=== PATIENT | female | born 1960 | race Caucasian/White ===

== ENCOUNTER 2020-10-04 13:41 | Outpatient (CLI) | payer BC, SELFPAY ==
--- NOTE | ~2020-10-04 | US_ITS ---
EXAMINATION: US renal BI DATE: 10/04/2020 14:14 INDICATION: Diabetic nephropathy TECHNIQUE: Multiple grayscale and Doppler ultrasound images of the kidneys were obtained. COMPARISON: None. FINDINGS: The right kidney measures 8.3 x 4.7 x 4.2 cm. The left kidney measures 11.7 x 4.5 x 5.1 cm. The kidneys demonstrate normal parenchymal echogenicity. There is no hydronephrosis. The bladder is normal. IMPRESSION: 1. Mild atrophy of the kidneys. Reviewed, dictated and finalized at location A. ROL OFFICER
== END 2020-10-04 13:42 | disposition home or self-care (01) ==
LOC: ANHIMG 13:49
PROVIDERS: PCP Emergency Medicine; Visit Provider Emergency Medicine
DX: E11.21 Type 2 diabetes mellitus with diabetic nephropathy (principal)
CPT/HCPCS: 76775

== ENCOUNTER → 2021-05-01 15:09 | Outpatient (CLI) | payer BC, SELFPAY ==
--- NOTE | ~2021-05-01 | XR_ITS ---
XR chest 2V 05/01/2021 15:45 Indication: Shortness of breath Procedure: 2 view chest Comparison: No prior studies for comparison. Findings: Heart size normal. There is left basilar atelectasis/scarring. No focal pneumonia, edema, p leural effusion or pneumothorax. No acute osseous abnormality. Impression: 1: Linear left basilar atelectasis/scarring. Reviewed, dictated and finalized at location A. Impression: 1: Linear left basilar atelectasis/scarring.
== END ==
PROVIDERS: PCP Emergency Medicine; Visit Provider Emergency Medicine
DX: R06.02 Shortness of breath (principal); R91.8 Other nonspecific abnormal finding of lung field
CPT/HCPCS: 71046

== ENCOUNTER 2021-12-05 19:55 | Emergency (ER) | payer BC, SELFPAY ==
--- NOTE | ~2021-12-05 | CT_ITS ---
EXAMINATION: CT brain wo con INDICATION: Headache COMPARISON: None TECHNIQUE: Standard unenhanced head CT. The dose-length product (DLP) was 605.33 mGy-cm. The mA was a djusted according to patient size. Iterative reconstruction technique was employed. FINDINGS: There is no intracranial hemorrhage, acute infarction, or abnormal mass lesion. The ventric les are normal. There is no abnormal mass effect or midline shift. The ybarra-white matter differentiat ion is normal. The basal cisterns are patent. Intracranial calcified cerebral atherosclerosis is note d. Surgical changes are noted in the right globe. The paranasal sinuses, mastoids and calvarium are n ormal. IMPRESSION: 1. No acute intracranial abnormality. Reviewed, dictated and finalized at location A.
[2021-12-05 19:59] VITALS: BP 191/98; PULSE 83; RESP 18; TEMP 37; O2SAT 100
[2021-12-05 20:08] VITALS: PULSE 80
--- NOTE | 2021-12-05 20:31 | ECG_ITS ---
Measurements Intervals [place] Rate: 78 P: 48 KS: 180 QRS: -17 QRSD: 90 T: 13 QT: 394 QTc: 451 Interpretive Statements SINUS RHYTHM LOW QRS VOLTAGE IN PRECORDIAL LEADS [QRS DEFLECTION < 1.0 mV IN CHEST LEADS] ABNORMAL ECG COMPARED TO ECG 03/08/2019 12:38:15 NO SIGNIFICANT CHANGES Electronically Signed On 12-06-2021 16:44:26 CDT by Nikita Spring M.D.
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
[2021-12-05 20:51] LABS: Basophils Absolute Auto 0.1 K/mm3 (0.0-0.1); Basophils Percent Auto 0.7 % (0.2-1.2); Eosinophils Absolute Auto 0.6 K/mm3 (0-0.3); Eosinophils Percent Auto 4.5 % (0-4.4); Hematocrit 37.4 % (37.0-47.0); Hemoglobin 12.4 g/dL (12.0-15.0); Immature Granulocyte Absolute 0.04 K/mm3 (0.00-0.031); Immature Granulocyte Percent A 0.3 % (0-0.5); Lymphocytes Percent Auto 13.9 % (18.3-44.2); Mean Corpuscular HGB Conc 33.2 g/dl (32-36); Mean Corpuscular Hemoglobin 29.2 pg (26-34); Mean Corpuscular Volume 88.2 fl (80-100); Mean Platelet Volume 10.6 fl (7.4-10.4); Monocytes Absolute Auto 0.6 K/mm3 (0.1-0.6); Monocytes Percent Auto 4.5 % (2.6-8.5); Neutrophils Absolute Auto 9.3 K/mm3 (1.3-6.7); Neutrophils Percent Auto 76.1 % (45.5-73.1); Platelet Count Result 220 k/mm3 (150-375); Red Blood Count 4.24 M/mm3 (4.2-5.4); Red Cell Distribution Width 13.2 % (11.5-14.5); White Blood Count 12.2 K/mm3 (4.5-10.0)
[2021-12-05 20:55] VITALS: BP 173/86; PULSE 77; RESP 18; O2SAT 100
[2021-12-05 21:04] LABS: Alanine Aminotransferase 19 U/L (4-35); Albumin Level 3.9 g/dL (3.5-5.1); Alkaline Phosphatase 93 U/L (38-126); Anion Gap 6 mmol/L (8-16); Aspartate Amino Transferase 35 U/L (14-36); Bilirubin,Total 0.5 mg/dL (0.2-1.3); Blood Urea Nitrogen 34 mg/dL (7-17); Carbon Dioxide 19 mmol/L (22-30); Chloride 112 mmol/L (98-107); Estimated CRCL calculation 29 ml/min; Estimated Glomerular Filt Rate 22; Glucose 166 mg/dL (65-110); Sodium 137 mmol/L (137-145)
[2021-12-05] MEDS: cloNIDine HCL 0.1 MG TABLET PO (21:09)
[2021-12-05 21:57] VITALS: BP 150/89; PULSE 85; RESP 20; O2SAT 100
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
--- NOTE | 2021-12-05 22:36 | PC.NURSE ---
Pt denies SI or HI thoughts now or prior to coming to ED.
[2021-12-05 22:58] LABS: Appearance Urine Clear (Clear); Bilirubin Urine Negative (Negative); Blood Urine Trace-lysed (Negative); Color Urine Yellow (Yellow); Glucose Urine UA 3+ mg/dL (Negative); Ketones Urine Negative (Negative); Leukocyte Esterase Ur Negative LEU/UL (Negative); Nitrate Urine Negative (Negative); Protein Urine 3+ mg/dL (Negative); Urobilinogen Urine 0.2 mg/dL (<2.0); pH Urine 8.5 (5.0-9.0)
[2021-12-05 23:02] LABS: Bacteria Urine Trace /hpf; Mucus Urine Rare /lpf; RBC Urine 0-2 /hpf (0-2); Squamous Epithelial Cell Urine Moderate /hpf (Few)
[2021-12-05 23:13] LABS: Add Urine Microscopic? YES
--- NOTE | 2021-12-05 23:13 | PC.NURSE ---
Crisis is at bedside currently.
[2021-12-06 00:22] LABS: SARS-CoV-2 RNA PCR Negative
[2021-12-06 00:31] VITALS: BP 152/96; PULSE 85; RESP 18; O2SAT 100
[2021-12-06 00:34] LABS: Ethanol < 10 mg/dL (<10)
[2021-12-06 00:46] LABS: Amphetamine Screen Urine Negative (Negative); Barbiturate Screen Urine Negative (Negative); Benzodiazepines Screen Urine Negative (Negative); Cannabinoid Screen Urine Negative (Negative); Cocaine Screen Urine Negative (Negative); Methadone Screen Urine Negative (Negative); Opiate Screen Urine Negative (Negative); Phencyclidine Screen Urine Negative (Negative)
--- NOTE | 2021-12-06 00:46 | PC.NURSE ---
RN spoke with [place] regarding pt and pt spoke with [place]. Pt informed she is being kept Involuntary.
--- NOTE | 2021-12-06 02:22 | PC.NURSE ---
RN spoke to [facility] they are requesting CT of head before they are willing to accept. MD ordered Ct scan.
--- NOTE | 2021-12-06 02:22 | PC.NURSE ---
RN re faxed pt's chart to [facility] for review.
--- NOTE | 2021-12-06 03:26 | PC.NURSE ---
Rn spoke with [facility] they are unable to accept the patient. Pt does not meet their admission criteria.
[2021-12-06 04:13] VITALS: BP 163/84; PULSE 77; RESP 16; O2SAT 100
--- NOTE | 2021-12-06 04:14 | PC.NURSE ---
RN spoke to [facility] they are able to accept pt to Dr. Peres they will call to get report from RN.
--- NOTE | 2021-12-06 05:10 | PC.NURSE ---
RN filled out Involuntary Petition as directed by [facility].
[2021-12-06 06:08] VITALS: BP 164/101; PULSE 78; RESP 18; O2SAT 100
== END 2021-12-06 06:10 ==
PROVIDERS: Emergency Provider Emergency Medicine; PCP Emergency Medicine
DX: F41.9 Anxiety disorder, unspecified (principal); F91.8 Other conduct disorders; E11.22 Type 2 diabetes mellitus with diabetic chronic kidney disease; I12.9 Hypertensive chronic kidney disease with stage 1 through stage 4 chronic kidney disease, or unspecified chronic kidney disease; N18.9 Chronic kidney disease, unspecified; E11.319 Type 2 diabetes mellitus with unspecified diabetic retinopathy without macular edema; Z20.822 Contact with and (suspected) exposure to COVID-19; R94.31 Abnormal electrocardiogram [ECG] [EKG]
CPT/HCPCS: 36415; 70450; 80053; 80307; 81001; 85025; 93005; 99285; A9270; C9803; U0003; U0005

== ENCOUNTER 2024-04-04 09:37 | Emergency (ER) | payer BC, SELFPAY ==
[2024-04-04] VITALS (7 sets, daily range): BP systolic 172–186; BP diastolic 87–96; PULSE 76–83; RESP 18–24; TEMP 36.7; O2SAT 97–100
--- NOTE | ~2024-04-04 | XR_ITS ---
EXAMINATION: XR chest 2V DATE: 04/04/2024 10:13 INDICATION: Weakness. Dyspnea. TECHNIQUE: Frontal and lateral views of the chest were obtained. COMPARISON: Chest 2 views 05/01/21 FINDINGS: There are airspace opacities in the lower lung zones. No pleural effusion or pneumothorax. The heart size is normal. Surgical clips in the right upper quadrant are likely from cholecystectomy. IMPRESSION: 1. Airspace opacities in the lower lung zones, consistent with atelectasis versus pneumonia. Reviewed, dictated and finalized at location E. IMPRESSION: 1. Airspace opacities in the lower lung zones, consistent with atelectasis vers us pneumonia.
--- NOTE | 2024-04-04 09:44 | ECG_ITS ---
Test Date: 2024-04-04 10:45:20 Measurements Intervals [place] Rate: 75 P: 30 DC: 181 QRS: -48 QRSD: 130 T: -8 QT: 418 QTc: 467 Interpretive Statements SINUS RHYTHM LEFT AXIS DEVIATION [QRS AXIS < -30] RIGHT BUNDLE BRANCH BLOCK [120+ ms QRS DURATION, UPRIGHT V1, 40+ ms S IN I/aVL/V4/V5/V6] No previous ECG available for comparison Electronically Signed On 04-04-2024 13:49:56 CDT by Jonathon Hobbs M.D.
[2024-04-04 10:17] LABS: Basophils Percent Auto 0.4 % (0.2-1.2); Eosinophils Absolute Auto 0.3 K/mm3 (0-0.3); Hematocrit 32.3 % (37.0-47.0); Hemoglobin 10.5 g/dL (12.0-15.0); Immature Granulocyte Absolute 0.05 K/mm3 (0.00-0.031); Immature Granulocyte Percent A 0.6 % (0-0.5); Lymphocytes Absolute Auto 1.57 K/mm3 (0.9-3.2); Lymphocytes Percent Auto 18.9 % (18.3-44.2); Mean Corpuscular HGB Conc 32.5 g/dl (32-36); Mean Corpuscular Hemoglobin 28.8 pg (26-34); Mean Corpuscular Volume 88.7 fl (80-100); Mean Platelet Volume 10.2 fl (7.4-10.4); Monocytes Absolute Auto 0.6 K/mm3 (0.1-0.6); Monocytes Percent Auto 7.1 % (2.6-8.5); Neutrophils Absolute Auto 5.8 K/mm3 (1.3-6.7); Platelet Count Result 188 k/mm3 (150-375); Red Blood Count 3.64 M/mm3 (4.2-5.4); Red Cell Distribution Width 13.3 % (11.5-14.5); White Blood Count 8.3 K/mm3 (4.5-10.0)
[2024-04-04 10:27] LABS: Alanine Aminotransferase 14 U/L (6-35); Albumin Level 3.2 g/dL (3.5-5.1); Alkaline Phosphatase 79 U/L (38-126); Anion Gap 10 mmol/L (4-12); Aspartate Amino Transferase 31 U/L (14-36); Bilirubin,Total 0.7 mg/dL (0.2-1.3); Blood Urea Nitrogen 36 mg/dL (7-17); Calcium 8.2 mg/dL (8.4-10.2); Carbon Dioxide 20 mmol/L (22-30); Chloride 104 mmol/L (98-107); Estimated CRCL calculation 23 ml/min; Estimated Glomerular Filt Rate 19; Glucose 92 mg/dL (65-110); Potassium 4.1 mmol/L (3.4-5.0); Sodium 134 mmol/L (137-145)
--- NOTE | 2024-04-04 11:33 | ED.GENADULT ---
HPI - General Adult General Chief complaint: Weakness Stated complaint: decreased energy, generalized malaise Time Seen by Provider: 04/04/24 10:40 History of Present Illness HPI narrative: This is a 63-year-old female with a past medical history significant for chronic kidney disease from diabetic nephropathy. She presents today to the ER for evaluation of persistent generalized weakness, decreased energy, productive cough and some nauseousness. Patient states she has been feeling this way for 2-3 weeks without any improvement her symptoms. She has had decreased appetite but able to tolerate p.o. intake without issue. Denies any chest pain but states she has some occasional difficulty in breathing she describes as a deep inhalation rib pain on the left side. Denies any trauma recent illnesses. No recent antibiotics. No recent hospitalizations. No one around her has been sick according to herself. Related Data Allergies Allergy/AdvReac Type Severity Reaction Status Date / Time Penicillins Allergy Unknown Unknown Verified 04/04/24 10:01 coconut Allergy Hives Verified 04/04/24 10:01 [facility] Social History Social History Substance use type: does not use Course Vital Signs Vital signs: Vital Signs Pulse Rate 76 04/04/24 09:57 Pulse Rate 79 04/04/24 11:45 Respiratory Rate 22 H 04/04/24 11:45 Blood Pressure 172/91 H 04/04/24 11:45 Pulse Oximetry 100 04/04/24 11:30 Medical Decision Making [facility] Narrative Medical decision making narrative: This is a 63-year-old female with history of diabetic nephropathy and chronic kidney disease who presents to the ED for evaluation of subjective dyspnea, generalized weakness, productive cough for last 2-3 weeks. She describes generalized malaise but denies any recent sick contacts. No fever chills at home. No headache, vision changes, chest pain, neuropathy. She was otherwise in normal state of health several weeks prior. Differential diagnosis at this time includes pneumonia, COVID, flu, RSV, less likely ACS. A metabolic panel was ordered as well as a cardiac workup. Two-view chest x-ray and COVID swabs were obtained. To given 1 L likely Ringer bolus. CBC showed no leukocytosis, anemia is at 10.5 and somewhat similar to her previous low levels. No concerns for acute blood loss. Electrolyte panel shows no significant electrolyte derangements however some mild BUTCH on CKD. She has a known CKD from diabetic nephropathy and her creatinine is just slightly above her normal baseline. Patient has no urinary complaints and makes urine presently. Negative troponin. Normal hepatic function panel. Urinalysis shows signs of potential infection with leukocyte esterase, 50-100 white blood cells and 3+ bacteria. X-ray was independently reviewed by myself and interpreted by radiology with some airspace disease in the left lower zone consistent with pneumonia. Given patient's constellation of symptoms and pneumonia and urinary tract infection this is likely the culprit behind her symptomatology today. RSV swabs were negative. We will treat her with a dose of IV Rocephin and doxycycline. We did discuss potential for admission to the hospital given her diagnosis today however patient is also stable for outpatient treatment and follow-up given her vital stability and improvement in symptomatology on my re-examination. Patient would prefer to be discharged and after discussions with the family this was an acceptable plan of care. We will prescribe oral antibiotics and she will be given follow-up with her regular primary care provider next several days. Vital Signs Vital Signs: Vital Signs Pulse Rate 76 04/04/24 09:57 Pulse Rate 79 04/04/24 11:45 Respiratory Rate 22 H 04/04/24 11:45 Blood Pressure 172/91 H 04/04/24 11:45 Pulse Oximetry 100 04/04/24 11:30 Lab Data 04/04/24 10:08
[2024-04-04] MEDS: LACTATED RINGERS 1,000 ML 999 ML IV CONT (11:52)
[2024-04-04 12:04] LABS: Troponin I < 0.012 ng/mL (0.000-0.034)
[2024-04-04 12:06] LABS: Add Urine Microscopic? YES; Appearance Urine Clear (Clear); Bacteria Urine 3+ /hpf; Bilirubin Urine Negative (Negative); Blood Urine Negative (Negative); Color Urine Yellow (Yellow); Glucose Urine UA 2+ mg/dL (Negative); Ketones Urine Negative (Negative); Leukocyte Esterase Ur Trace LEU/UL (Negative); Nitrate Urine Negative (Negative); Non Pathogenic Casts 0-2; Protein Urine 3+ mg/dL (Negative); RBC Urine 0-2 /hpf (0-2); Specific Grav Ur 1.013 (1.001-1.035); Squamous Epithelial Cell Urine None Seen /hpf (Few); WBC Urine 51-100 /hpf (0-3); pH Urine 6.5 (5.0-9.0)
[2024-04-04 12:37] LABS: Influenza A QL RT-PCR Negative (Negative); Influenza B QL RT-PCR Negative (Negative); RSV RNA, RT-PCR Negative (Negative); SARS-CoV-2 RNA PCR Negative (Negative)
[2024-04-04] MEDS: DOXYCYCLINE 100 MG/NS 100 ML 100 MG/100 ML BAG IVPB (14:50)
== END 2024-04-04 16:30 | disposition home or self-care (01) ==
PROVIDERS: Student in an Organized Health Care Education/Training Program; Emergency Provider Student in an Organized Health Care Education/Training Program; PCP Emergency Medicine
DX: J18.9 Pneumonia, unspecified organism (principal); N39.0 Urinary tract infection, site not specified; N17.9 Acute kidney failure, unspecified; E11.22 Type 2 diabetes mellitus with diabetic chronic kidney disease; N18.9 Chronic kidney disease, unspecified; Z20.822 Contact with and (suspected) exposure to COVID-19; I45.10 Unspecified right bundle-branch block
CPT/HCPCS: 36415; 71046; 80053; 81001; 84484; 85025; 87086; 87637; 93005; 96361; 96365; 96367; 99284; J0696; J7120

== ENCOUNTER → 2024-05-05 10:47 | Outpatient (CLI) | payer BC, SELFPAY ==
--- NOTE | ~2024-05-05 | XR_ITS ---
Clinical Indication: Pneumonia PA and lateral views of the chest: Comparison: 04/04/2024 Findings: There is now 2 cm nodular opacity at the right lung base. There is hazy airspace consolidat ion the lateral right midlung. There is mild haziness at the medial right lung base. Probable discoid atelectasis or scarring left lung base. Cardiomediastinal silhouette is within normal limits. Bones and soft tissues are unremarkable. Impression: New 2 cm nodular opacity right lung base, with worsening hazy airspace disease at the lateral right l emery. Chest CT should be considered to better evaluate. Pneumonia remains a diagnostic consideration. Reviewed, dictated and finalized at location . Impression: New 2 cm nodular opacity right lung base, with worsening hazy airspace disease at the lateral right lung. Chest CT should be considered to better evaluate. Pn eumonia remains a diagnostic consideration.
== END ==
PROVIDERS: PCP Emergency Medicine; Visit Provider Emergency Medicine
DX: J18.9 Pneumonia, unspecified organism (principal)
CPT/HCPCS: 71046

== ENCOUNTER 2024-08-22 08:02 | Inpatient (IN) | payer BC, SELFPAY ==
[2024-08-22] VITALS (16 sets, daily range): BP systolic 111–167; BP diastolic 59–86; PULSE 88–96; RESP 18–34; TEMP 36.3–37.7; O2SAT 95–99
--- NOTE | ~2024-08-22 | XR_ITS ---
Portable chest x-ray Comparison: 08/22/2024 Clinical History: Shortness of breath Findings: There is mild diffuse haziness and interstitial prominence in the lungs. Mild patchy bibas ilar airspace disease. Cardiomediastinal silhouette is stable. Bones and soft tissues are unremarkab le. Impression: Probable mild diffuse pulmonary edema pattern with minimal bibasilar atelectatic change. Stable cardiomegaly. Reviewed, dictated and finalized at location . ARE ADMINISTRATOR Impression: Probable mild diffuse pulmonary edema pattern with minimal bibasilar atelectati c change. Stable cardiomegaly.
--- NOTE | ~2024-08-22 | CT_ITS ---
EXAMINATION: CT chest abdomen pelvis wo con DATE: 08/22/2024 11:27 INDICATION: Pneumonia. 3 days of nausea and vomiting TECHNIQUE: Computed tomography (CT) of the chest, abdomen, and pelvis was performed with 100 mL Omnip aque-350 intravenous contrast. Automated exposure control and iterative reconstruction technique were employed. The dose-length product was 1250.75 mGy-cm. COMPARISON: None FINDINGS: CHEST CT: Small bilateral pleural effusions. Linear and bandlike consolidation in the bilateral lower lobes and in the lingula consistent with atelectasis/scarring, likely chronic as similar opacities can be seen in the lower lungs on chest radiographs dating back to 04/04/2024. Heart size is normal. Moderate-siz ed pericardial effusion. Thoracic aorta is normal in caliber. No pathologically enlarged thoracic lym phadenopathy. Multinodular goiter with nodules measuring up to 1 cm. ABDOMEN/PELVIS CT: Cholecystectomy clips the gallbladder fossa. Liver, spleen, pancreas and bilateral adrenal glands are normal. Normal variant horseshoe kidney/cross fused ectopia. Fluid throughout multiple nondilated lo ops of small bowel suggestive of gastroenteritis. Several diverticula along the sigmoid colon without adjacent inflammatory stranding to suggest diverticulitis. The appendix is not visualized. No perice fly inflammatory change to suggest acute appendicitis. Bladder, uterus and bilateral adnexa are unrem arkable. Mild lumbar levocurvature with moderate to severe spondylosis. IMPRESSION: 1. Small bilateral pleural effusions with likely chronic atelectasis/scarring in the bilateral lower lobes. 2. Moderate-sized pericardial effusion. 3. Fluid throughout nondilated small bowel. Correlate clinically for gastroenteritis. 4. Sigmoid diverticulosis. Reviewed, dictated and finalized at location A. STANT GROCERY IMPRESSION: 1. Small bilateral pleural effusions with likely chronic atelectasis/scarring i n the bilateral lower lobes. 2. Moderate-sized pericardial effusion. 3. Fluid throughout nondilated small bowel. Correlate clinically for gastroente ritis. 4. Sigmoid diverticulosis.
--- NOTE | ~2024-08-22 | US_ITS ---
EXAMINATION: US thoracentesis DATE: 08/23/2024 17:21 INDICATION: pleural effusion TECHNIQUE: The procedure and its risks, benefits, and alternatives were discussed with the patient an d her . Potential risks discussed included bleeding, infection, and pneumothorax. The patient understood the risks and agreed to proceed. The skin was prepped and draped in sterile fashion. 1% li docaine was used for local anesthesia. Under ultrasound guidance, a 5 Fr catheter with trochar was ad vanced into the left pleural effusion. Fluid was aspirated. The catheter was removed, and a dressing was applied. There were no immediate complications. FINDINGS: Ultrasound images demonstrate a left pleural effusion and the catheter within the fluid. The pleural effusion is loculated. IMPRESSION: 1. Successful ultrasound-guided thoracentesis yielding 1 mL of yellow fluid. Note that the pleural e ffusion is loculated, and more fluid could not be obtained despite positioning the needle at multiple locations within the pleural effusion. Reviewed, dictated and finalized at location A. ITUDINAL FLOAT OPERATOR IMPRESSION: 1. Successful ultrasound-guided thoracentesis yielding 1 mL of yellow fluid. N ote that the pleural effusion is loculated, and more fluid could not be obtaine d despite positioning the needle at multiple locations within the pleural effus ion.
--- NOTE | ~2024-08-22 | XR_ITS ---
Portable chest x-ray Comparison: 08/22/2024 Clinical History: Hypoxia Findings: There is left lower lobe airspace consolidation with probable minimal left pleural effusio n. There is probable discoid right basilar atelectasis or scarring. Cardiomediastinal silhouette is stable. Bones and soft tissues are unremarkable. Impression: Left lower lobe pulmonary edema/atelectasis versus pneumonia. Correlate clinically. Minimal left pleural effusion. Discoid right basilar atelectasis or scarring. Reviewed, dictated and finalized at [facility]. [employer] Impression: Left lower lobe pulmonary edema/atelectasis versus pneumonia. Correlate clinica lly. Minimal left pleural effusion. Discoid right basilar atelectasis or scarring.
--- NOTE | ~2024-08-22 | XR_ITS ---
EXAMINATION: XR chest 1V portable DATE: 08/22/2024 08:49 INDICATION: Dyspnea on exertion TECHNIQUE: frontal view of the chest was obtained. COMPARISON: Chest radiograph dated 05/05/24 FINDINGS: Opacities in the bilateral lower lung zones including some linear atelectasis/scarring. No pleural ef fusion or pneumothorax. The cardiomediastinal silhouette is normal. Cholecystectomy clips in right up per quadrant. IMPRESSION: 1. Opacities in the bilateral lower lung zones which includes atelectasis/scarring with possible supe rimposed mild pulmonary edema or pneumonia. Reviewed, dictated and finalized at [facility] IMPRESSION: 1. Opacities in the bilateral lower lung zones which includes atelectasis/scarr ing with possible superimposed mild pulmonary edema or pneumonia.
[2024-08-22 08:09] LABS: Glucose Point of Care 114 mg/dl (65-105)
--- NOTE | 2024-08-22 08:11 | ECG_ITS ---
Test Date: 2024-08-22 08:27:18 Measurements Intervals [place] Rate: 93 P: 24 AR: 170 QRS: -38 QRSD: 121 T: 4 QT: 368 QTc: 459 Interpretive Statements SINUS RHYTHM MARKED LEFT AXIS DEVIATION [QRS AXIS < -30] RIGHT BUNDLE BRANCH BLOCK [120+ ms QRS DURATION, UPRIGHT V1, 40+ ms S IN I/aVL/V4/V5/V6] ABNORMAL ECG Compared to ECG 04/04/2024 10:45:20 No significant changes Electronically Signed On 08-22-2024 09:05:25 [employer] by Nikita Spring M.D.
[2024-08-22 08:27] LABS: Basophils Percent Auto 0.1 % (0.2-1.2); Eosinophils Percent Auto 0.2 % (0-4.4); Hematocrit 33.3 % (37.0-47.0); Hemoglobin 10.8 g/dL (12.0-15.0); Immature Granulocyte Absolute 0.11 K/mm3 (0.00-0.031); Immature Granulocyte Percent A 0.8 % (0-0.5); Lymphocytes Absolute Auto 1.46 K/mm3 (0.9-3.2); Mean Corpuscular HGB Conc 32.4 g/dl (32-36); Mean Corpuscular Hemoglobin 27.3 pg (26-34); Mean Corpuscular Volume 84.1 fl (80-100); Mean Platelet Volume 10.3 fl (7.4-10.4); Monocytes Absolute Auto 1.2 K/mm3 (0.1-0.6); Neutrophils Absolute Auto 11.8 K/mm3 (1.3-6.7); Neutrophils Percent Auto 80.9 % (45.5-73.1); Platelet Count Result 258 k/mm3 (150-375); Red Blood Count 3.96 M/mm3 (4.2-5.4); Red Cell Distribution Width 14.2 % (11.5-14.5); White Blood Count 14.6 K/mm3 (4.5-10.0)
[2024-08-22] MEDS: ONDANSETRON INJ 4 MG/2 ML VIAL (08:36)
[2024-08-22 08:39] LABS: Alanine Aminotransferase 13 U/L (6-35); Albumin Level 3.1 g/dL (3.5-5.1); Alkaline Phosphatase 105 U/L (38-126); Anion Gap 6 mmol/L (4-12); Aspartate Amino Transferase 30 U/L (14-36); Bilirubin,Total 0.7 mg/dL (0.2-1.3); Blood Urea Nitrogen 39 mg/dL (7-17); Calcium 8.3 mg/dL (8.4-10.2); Carbon Dioxide 19 mmol/L (22-30); Chloride 105 mmol/L (98-107); Estimated Glomerular Filt Rate 15; Glucose 120 mg/dL (65-110); Lipase 86 U/L (23-300); Potassium 4.6 mmol/L (3.4-5.0); Sodium 130 mmol/L (137-145)
[2024-08-22] MEDS: SODIUM CHLORIDE 0.9% IV 3,000 ML 999 ML IV CONT (08:47)
[2024-08-22 08:50] LABS: INR 1.1; Prothrombin Time 14.6 Seconds (11.1-14.7)
[2024-08-22 08:51] LABS: Partial Thromboplastin Time 27.7 Seconds (22.3-36.8); Troponin I < 0.012 ng/mL (0.000-0.034)
[2024-08-22 08:54] LABS: Fractional Inspired Oxygen 21 %; HCO3 VBG 17.6 mEq/l (24.0-30.0); PCO2 VBG 31.4 mmHg (42.0-48.0); PO2 VBG 35.8 mmHg (35.0-45.0); pH VBG 7.367 (7.300-7.400)
[2024-08-22 08:58] LABS: Device ROOM AIR
[2024-08-22 09:20] LABS: Lactic Acid Reflex 1.5 mmol/L (0.7-2.0)
[2024-08-22 09:28] LABS: Magnesium 2.2 mg/dL (1.6-2.3); Phosphorus 4.6 mg/dL (2.5-4.5)
[2024-08-22 10:37] LABS: Influenza A QL RT-PCR Negative (Negative); Influenza B QL RT-PCR Negative (Negative); RSV RNA, RT-PCR Negative (Negative); SARS-CoV-2 RNA PCR Negative (Negative)
--- NOTE | 2024-08-22 11:13 | ECG_ITS ---
Test Date: 2024-08-22 11:39:33 Measurements Intervals [place] Rate: 89 P: 33 IA: 164 QRS: -45 QRSD: 125 T: 7 QT: 390 QTc: 477 Interpretive Statements SINUS RHYTHM RIGHT BUNDLE BRANCH BLOCK [120+ ms QRS DURATION, UPRIGHT V1, 40+ ms S IN I/aVL/V4/V5/V6] LEFT ANTERIOR FASCICULAR BLOCK [QRS AXIS <= -45, QR IN I, RS IN II] ABNORMAL ECG Electronically Signed On 08-22-2024 13:49:47 PUNCH HAND by Nikita Spring M.D.
[2024-08-22] MEDS: PROCHLORPERAZINE EDISYLATE 10 MG/2 ML VIAL IM (11:50)
[2024-08-22 11:55] LABS: Add Urine Microscopic? YES; Appearance Urine Clear (Clear); Bacteria Urine None Seen /hpf; Bilirubin Urine Negative (Negative); Blood Urine 1+ (Negative); Color Urine Yellow (Yellow); Glucose Urine UA 2+ mg/dL (Negative); Ketones Urine Negative (Negative); Leukocyte Esterase Ur Negative LEU/UL (Negative); Nitrate Urine Negative (Negative); Protein Urine 3+ mg/dL (Negative); RBC Urine 21-50 /hpf (0-2); Specific Grav Ur 1.014 (1.001-1.035); Squamous Epithelial Cell Urine None Seen /hpf (Few); WBC Urine 0-5 /hpf (0-3); pH Urine 5.5 (5.0-9.0)
[2024-08-22 12:35] LABS: Troponin I < 0.012 ng/mL (0.000-0.034)
[2024-08-22 14:24] LABS: Glucose Point of Care 109 mg/dl (65-105)
--- NOTE | 2024-08-22 14:24 | ED_ITS ---
HPI - General Adult General Chief complaint: Chest Pain Stated complaint: nausea, vomiting, Time Seen by Provider: 08/22/24 08:23 History of Present Illness HPI narrative: This is a 63-year-old female presenting to the ED with 3 days of nausea vomiting diarrhea. Associated symptoms include fatigue, dyspnea on exertion decreased appetite. She has chest pain when she wretches but none at baseline. She denies fevers chills. Abdominal pain urinary symptoms or sick contacts at home. Related Data Allergies Allergy/AdvReac Type Severity Reaction Status Date / Time Penicillins Allergy Unknown Unknown Verified 08/22/24 08:03 coconut Allergy Hives Verified 08/22/24 08:03 [facility] Social History Social History Substance use type: does not use Exam 2 Narrative: APPEARANCE: Ill-appearing Head: atraumatic. 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 Moving 4/4 extremities SKIN:: Warm, dry. Normal color PSYCHIATRIC: Normal affect Course Vital Signs Vital signs: Vital Signs Oxygen Delivery Room Air 08/22/24 08:15 Temperature 99.4 F 08/22/24 11:01 Pulse Rate 90 08/22/24 11:01 Respiratory Rate 30 H 08/22/24 11:01 Blood Pressure 133/81 08/22/24 11:01 Pulse Oximetry 96 08/22/24 11:01 Oxygen Delivery Room Air 08/22/24 08:15 Medical Decision Making [facility] Narrative Medical decision making narrative: -Course: 63-year-old female presenting ED with chief complaint of nausea vomiting diarrhea. Patient given 3 L normal saline. Given Zofran and Compazine for nausea and vomiting. Workup significant for acute kidney injury with BUN of 39 and creatinine 3.1. Baseline appears to be around 2.5 CT chest abdomen pelvis showed evidence of diarrheal illness. Viral swabs are negative. patient's clinical presentation is consistent with dehydration acute kidney injury secondary to gastroenteritis. Patient will be placed in observation for rehydration. -DDX includes but is not limited to: gastroenteritis, viral illness, dehydration acute injury, sepsis, UTI, pneumonia -Hx from independent Sources: at bedside -Independent interpretation of studies: labs imaging reviewed Independent EKG interpretation: Rhythm [sinus], Rate [93], [place] -[normal], [place] -[normal], QRS [narrow], QTC [normal], T waves -[negative for concerning inversions], ST Segments - [Negative for concerning elevations] Final interpretations: [Normal Sinus Rhythm] -Discussion of Management/Consultants: Roz -Interventions: 3 L normal saline, Zofran, Compazine, LR 125cc/hr -Shared decision making / Disposition:observation Vital Signs Vital Signs: Vital Signs Oxygen Delivery Room Air 08/22/24 08:15 Temperature 99.4 F 08/22/24 11:01 Pulse Rate 90 08/22/24 11:01 Respiratory Rate 30 H 08/22/24 11:01 Blood Pressure 133/81 08/22/24 11:01 Pulse Oximetry 96 08/22/24 11:01 Oxygen Delivery Room Air 08/22/24 08:15 Lab Data 08/22/24 08:19 08/22/24 08:19 Labs: Lab Results 08/22/24 08/22/24 08/22/24 Range/Units 08:07 08:19 08:47 WBC 14.6 H (4.5-10.0) K/mm3 RBC 3.96 L (4.2-5.4) M/mm3 Hgb 10.8 L (12.0-15.0) g/dL Hct 33.3 L (37.0-47.0) % MCV 84.1 (80-100) fl MCH 27.3 (26-34) pg MCHC 32.4 (32-36) g/dl RDW 14.2 (11.5-14.5) % Plt Count 258 (150-375) k/mm3 MPV 10.3 (7.4-10.4) fl Immature Gran % (Auto) 0.8 H (0-0.5) % Neut % (Auto) 80.9 H (45.5-73.1) % Lymph % (Auto) 10.0 L (18.3-44.2) % [place] % (Auto) 8.0 (2.6-8.5) % Eos % (Auto) 0.2 (0-4.4) % Baso % (Auto) 0.1 L (0.2-1.2) % Lymph # (Auto) 1.46 (0.9-3.2) K/mm3 [place] # (Auto) 1.2 H (0.1-0.6) K/mm3 Eos # (Auto) 0.0 (0-0.3) K/mm3 Baso # (Auto) 0.0 (0.0-0.1) K/mm3 Abs Immat Gran (auto) 0.11 H (0.00-0.031) K/mm3 Absolute Neuts (auto) 11.8 H (1.3-6.7) K/mm3 Absolute Nucleated RBC 0.000 (0.0-0.012) K/mm3 Nucleated RBC % 0.0 (0.0-0.2) % PT 14.6 (11.1-14.7) Seconds INR 1.1 APTT 27.7 (22.3-36.8) Seconds Sodium 130 L (137-145) mmol/L Potassium 4.6 (3.4-5.0) mmol/L Chloride 105 (98-107) mmol/L Carbon Dioxide 19 L (22-30) mmol/L Anion Gap 6 (4-12) mmol/L BUN 39 H (7-17) mg/dL Creatinine 3.10 H (0.7-1.0) mg/dL Estim Creat Clear Calc Not Reportable Estimated GFR 15 L (59 - ) Glucose 120 H (65-110) mg/dL POC Capillary Glucose 114 H (65-105) mg/dl Lactic Acid (0.7-2.0) mmol/L Calcium 8.3 L (8.4-10.2) mg/dL Phosphorus 4.6 H (2.5-4.5) mg/dL Magnesium 2.2 (1.6-2.3) mg/dL Total Bilirubin 0.7 (0.2-1.3) mg/dL AST 30 (14-36) U/L ALT 13 (6-35) U/L Alkaline Phosphatase 105 (38-126) U/L Troponin I < 0.012 (0.000-0.034) ng/mL Total Protein 7.0 (6.3-8.2) g/dL Albumin 3.1 L (3.5-5.1) g/dL Lipase 86 (23-300) U/L Urine Color (Yellow) Urine Appearance (Clear) Urine pH (5.0-9.0) Ur Specific [place] (1.001-1.035) Urine Protein (Negative) mg/dL Urine Glucose (UA) (Negative) mg/dL Urine Ketones (Negative) mg/dL Ur Blood (Man) (Negative) Urine Nitrate (Negative) Urine Bilirubin (Negative) Urine Urobilinogen (<2.0) mg/dL Leukocyte Esterase Rfl (Negative) BRANNON/UL Urine RBC (0-2) /hpf Urine WBC (0-3) /hpf Ur Squamous Epith Cells (Few) /hpf Urine Bacteria /hpf Urine Casts Influenza A (RT-PCR) Negative (Negative) Influenza B (RT-PCR) Negative (Negative) RSV (RT-PCR) Negative (Negative) SARS-CoV-2 RNA (RT-PCR) Negative (Negative) 08/22/24 08/22/24 08/22/24 Range/Units 09:05 11:40 12:08 WBC (4.5-10.0) K/mm3 RBC (4.2-5.4) M/mm3 Hgb (12.0-15.0) g/dL Hct (37.0-47.0) % MCV (80-100) fl MCH (26-34) pg MCHC (32-36) g/dl RDW (11.5-14.5) % Plt Count (150-375) k/mm3 MPV (7.4-10.4) fl Immature Gran % (Auto) (0-0.5) % Neut % (Auto) (45.5-73.1) % Lymph % (Auto) (18.3-44.2) % [place] % (Auto) (2.6-8.5) % Eos % (Auto) (0-4.4) % Baso % (Auto) (0.2-1.2) % Lymph # (Auto) (0.9-3.2) K/mm3 [place] # (Auto) (0.1-0.6) K/mm3 Eos # (Auto) (0-0.3) K/mm3 Baso # (Auto) (0.0-0.1) K/mm3 Abs Immat Gran (auto) (0.00-0.031) K/mm3 Absolute Neuts (auto) (1.3-6.7) K/mm3 Absolute Nucleated RBC (0.0-0.012) K/mm3 Nucleated RBC % (0.0-0.2) % PT (11.1-14.7) Seconds INR APTT (22.3-36.8) Seconds Sodium (137-145) mmol/L Potassium (3.4-5.0) mmol/L Chloride (98-107) mmol/L Carbon Dioxide (22-30) mmol/L Anion Gap (4-12) mmol/L BUN (7-17) mg/dL Creatinine (0.7-1.0) mg/dL Estim Creat Clear Calc Estimated GFR (59 - ) Glucose (65-110) mg/dL POC Capillary Glucose (65-105) mg/dl Lactic Acid 1.5 (0.7-2.0) mmol/L Calcium (8.4-10.2) mg/dL Phosphorus (2.5-4.5) mg/dL Magnesium (1.6-2.3) mg/dL Total Bilirubin (0.2-1.3) mg/dL AST (14-36) U/L ALT (6-35) U/L Alkaline Phosphatase (38-126) U/L Troponin I < 0.012 (0.000-0.034) ng/mL Total Protein (6.3-8.2) g/dL Albumin (3.5-5.1) g/dL Lipase (23-300) U/L Urine Color Yellow (Yellow) Urine Appearance Clear (Clear) Urine pH 5.5 (5.0-9.0) Ur Specific [place] 1.014 (1.001-1.035) Urine Protein 3+ H (Negative) mg/dL Urine Glucose (UA) 2+ H (Negative) mg/dL Urine Ketones Negative (Negative) mg/dL Ur Blood (Man) 1+ H (Negative) Urine Nitrate Negative (Negative) Urine Bilirubin Negative (Negative) Urine Urobilinogen 1.0 (<2.0) mg/dL Leukocyte Esterase Rfl Negative (Negative) BRANNON/UL Urine RBC 21-50 H (0-2) /hpf Urine WBC 0-5 (0-3) /hpf Ur Squamous Epith Cells None seen (Few) /hpf Urine Bacteria None seen /hpf Urine Casts 3-5 Influenza A (RT-PCR) (Negative) Influenza B (RT-PCR) (Negative) RSV (RT-PCR) (Negative) SARS-CoV-2 RNA (RT-PCR) (Negative) 08/22/24 08/22/24 Range/Units 14:18 14:22 WBC (4.5-10.0) K/mm3 RBC (4.2-5.4) M/mm3 Hgb (12.0-15.0) g/dL Hct (37.0-47.0) % MCV (80-100) fl MCH (26-34) pg MCHC (32-36) g/dl RDW (11.5-14.5) % Plt Count (150-375) k/mm3 MPV (7.4-10.4) fl Immature Gran % (Auto) (0-0.5) % Neut % (Auto) (45.5-73.1) % Lymph % (Auto) (18.3-44.2) % [place] % (Auto) (2.6-8.5) % Eos % (Auto) (0-4.4) % Baso % (Auto) (0.2-1.2) % Lymph # (Auto) (0.9-3.2) K/mm3 [place] # (Auto) (0.1-0.6) K/mm3 Eos # (Auto) (0-0.3) K/mm3 Baso # (Auto) (0.0-0.1) K/mm3 Abs Immat Gran (auto) (0.00-0.031) K/mm3 Absolute Neuts (auto) (1.3-6.7) K/mm3 Absolute Nucleated RBC (0.0-0.012) K/mm3 Nucleated RBC % (0.0-0.2) % PT (11.1-14.7) Seconds INR APTT (22.3-36.8) Seconds Sodium (137-145) mmol/L Potassium (3.4-5.0) mmol/L Chloride (98-107) mmol/L Carbon Dioxide (22-30) mmol/L Anion Gap (4-12) mmol/L BUN (7-17) mg/dL Creatinine (0.7-1.0) mg/dL Estim Creat Clear Calc Estimated GFR (59 - ) Glucose (65-110) mg/dL POC Capillary Glucose 109 H (65-105) mg/dl Lactic Acid (0.7-2.0) mmol/L Calcium (8.4-10.2) mg/dL Phosphorus (2.5-4.5) mg/dL Magnesium (1.6-2.3) mg/dL Total Bilirubin (0.2-1.3) mg/dL AST (14-36) U/L ALT (6-35) U/L Alkaline Phosphatase (38-126) U/L Troponin I 0.012 (0.000-0.034) ng/mL Total Protein (6.3-8.2) g/dL Albumin (3.5-5.1) g/dL Lipase (23-300) U/L Urine Color (Yellow) Urine Appearance (Clear) Urine pH (5.0-9.0) Ur Specific [place] (1.001-1.035) Urine Protein (Negative) mg/dL Urine Glucose (UA) (Negative) mg/dL Urine Ketones (Negative) mg/dL Ur Blood (Man) (Negative) Urine Nitrate (Negative) Urine Bilirubin (Negative) Urine Urobilinogen (<2.0) mg/dL Leukocyte Esterase Rfl (Negative) BRANNON/UL Urine RBC (0-2) /hpf Urine WBC (0-3) /hpf Ur Squamous Epith Cells (Few) /hpf Urine Bacteria /hpf Urine Casts Influenza A (RT-PCR) (Negative) Influenza B (RT-PCR) (Negative) RSV (RT-PCR) (Negative) SARS-CoV-2 RNA (RT-PCR) (Negative) ABG Data ABG results: 08/22/24 08:48 VBG pH 7.367 VBG pCO2 31.4 L VBG pO2 35.8 VBG HCO3 17.6 L O2 Delivery Device Room air O2 Liters/Min Not Reportable FiO2 21 Discharge Plan Discharge Clinical Impression: Gastroenteritis Patient Disposition: Still a Patient Condition: Stable Patient Language: Frisian Prescriptions: No Action cefuroxime axetil 500 mg tablet 500 mg PO Q12H 5 Days Qty: 10 0RF doxycycline hyclate 100 mg capsule 100 mg PO BID 5 Days Qty: 10 0RF Follow-up/Referrals: Jonatan Worley MD [Primary Care Provider] -
[2024-08-22 14:47] LABS: Troponin I 0.012 ng/mL (0.000-0.034)
--- NOTE | 2024-08-22 15:54 | PM.IMHP ---
H&P: HPI History of Present Illness Date/Time: 08/22/24 15:54 Chief Complaint: Nausea vomiting diarrhea Narrative: 63-year-old female with past medical history of CKD, anxiety and diabetes presents to the hospital with nausea vomiting diarrhea. Patient states that she has had nausea vomiting diarrhea for about the last 3 days and is starting to feel extremely weak. She she states that she now has chest pain from vomiting and retching. Patient also complains of shortness of breath for the last month or 2. She states that her primary care provider has recommended for her to get x-ray and follow-up however she has not done so at this time. Patient denies fevers chills or abdominal pain. Leukocytosis at 14.6, anemia at 10.8 hyponatremia 130, BUN 39, GFR 15, creatinine 3.10, baseline appears to be under 2.6, phosphorus at 4.6. UA negative for acute UTI. Influenza a, B, RSV and COVID negative. CT shows Small bilateral pleural effusions with likely chronic atelectasis/scarring in the bilateral lower lobes, Moderate-sized pericardial effusion and Fluid throughout nondilated small bowel. Correlate clinically for gastroenteritis. Small bilateral pleural effusions with likely chronic atelectasis/scarring in the bilateral lower lobes. Moderate-sized pericardial effusion. Review of Systems Review of Systems: 12 systems were reviewed and are negative except for as per HPI. [facility] Past Medical History Medical History (Updated 08/22/24 @ 22:53 by Roz Sheikh APRN) Diabetes mellitus Chronic renal disease Anxiety Surgical History Surgical History (Updated 08/22/24 @ 22:46 by Roz Sheikh APRN) History of appendectomy Social History Social History Smoking status: Former smoker Tobacco type: cigarettes Alcohol intake: never Substance use: never Substance use type: does not use Do You Feel Safe in your Home?: Yes Lack of Transportation: No Lack of Food: Never True Current Housing: I Have Housing Concerned About Future Housing: No Difficulty Paying Gas/Electric Bills: No Difficulty Paying for Meds: No Currently Unemployed: No Education: High School Diploma/GED Difficulty w/ Childcare or Family Care: No Spiritual care concerns: No Meds Home Medications and Allergies Home Medications ?Medication ?Instructions ?Recorded ?Confirmed ?Type amlodipine 5 mg tablet 5 mg PO QAM 08/22/24 08/22/24 History brimonidine 0.2 % eye drops 1 drp EACH EYE BID 08/22/24 08/22/24 History cholecalciferol (vitamin D3) 50 50 mcg PO QAM 08/22/24 08/22/24 History mcg (2,000 unit) tablet (D3 DOTS) dapagliflozin propanediol 10 mg 10 mg PO QAM 08/22/24 08/22/24 History tablet (Farxiga) dorzolamide 2 % eye drops 1 drp RIGHT EYE BID 08/22/24 08/22/24 History ferrous sulfate 325 mg (65 mg 325 mg PO QAM 08/22/24 08/22/24 History iron) tablet (FeroSul) glimepiride 2 mg tablet 4 mg PO QAM 08/22/24 08/22/24 History hydralazine 50 mg tablet 50 mg PO TID 08/22/24 08/22/24 History metoprolol succinate 100 mg 100 mg PO QAM 08/22/24 08/22/24 History tablet,extended release 24 hr polyvinyl alcohol-povidone 0.5 1 drp RIGHT EYE BID 08/22/24 08/22/24 History %-0.6 % eye drops (Artificial Tears (polyvinyl alcohol/povidone)) rosuvastatin 5 mg tablet 5 mg PO QAM 08/22/24 08/22/24 History sodium bicarbonate 650 mg tablet 650 mg PO TID 08/22/24 08/22/24 History timolol maleate 0.5 % eye drops 1 drp EACH EYE BID 08/22/24 08/22/24 History Allergies Allergy/AdvReac Type Severity Reaction Status Date / Time Penicillins Allergy Unknown Unknown Verified 08/22/24 08:03 coconut Allergy Hives Verified 08/22/24 08:03 Vital Signs Vital Signs - 24 hr 08/22/24 08:15 08/22/24 08:16 08/22/24 08:36 Temperature 97.7 F Pulse Rate 94 93 Respiratory Rate 34 H 23 H Blood Pressure 134/84 125/86 Pulse Oximetry 97 99 Oxygen Delivery Room Air 08/22/24 08:46 08/22/24 08:49 08/22/24 10:08 Temperature 99.8 F H Pulse Rate 93 89 Respiratory Rate 22 H 30 H Blood Pressure 126/75 120/72 Pulse Oximetry 98 98 Oxygen Delivery 08/22/24 10:31 08/22/24 11:01 Temperature 99.4 F Pulse Rate 89 90 Respiratory Rate 28 H 30 H Blood Pressure 111/70 133/81 Pulse Oximetry 98 96 Oxygen Delivery Exam Narrative: General: Ill-appearing, appears stated age. HEENT: normocephalic, atraumatic. Mucous membranes moist. EOMI, right eye cloudy, bilateral sclera anicteric, no conjunctival injection. Neck supple without JVD, lymphadenopathy, or bruit. Respiratory: Diminished to ascultation bilaterally. No rales/rhonic/wheezes. Tachypneic Cardiovascular: Regular rate and rhythm, normal S1-S2 upon ascultation. No murmurs, rubs, or clicks. PMI is nondisplaced, capillary refill less than 3 second. Abdomen: Soft, round, no pulsatile masses, nondistended and nontender. No rebound, no guarding. No CVA tenderness, no hepatosplenomegaly. Bowel sounds present to all four quadrants. No high pitch or tinkling sounds, resonant to percussion. Extremities: +1 edema present. Pulses are palpable 2/2. Active ROM to all four extremities. Neuro: Alert and orientated x 4. PERRLA. Cranial nerves 2-12 intact without focal deficit. Skin: Warm, dry, and intact, without rash, erythema, or lesion. Psych: pleasant, cooperative, normal speech, normal affect, no hallucinations, no dysarthia H&P: Results Labs Labs: Short CBC 08/22/24 Range/Units 08:19 WBC 14.6 H (4.5-10.0) K/mm3 Hgb 10.8 L (12.0-15.0) g/dL Hct 33.3 L (37.0-47.0) % Plt Count 258 (150-375) k/mm3 [facility] 08/22/24 08:19 Sodium 130 L Potassium 4.6 Chloride 105 Carbon Dioxide 19 L BUN 39 H Creatinine 3.10 H Glucose 120 H Calcium 8.3 L Cardiac Enzymes 08/22/24 08/22/24 08/22/24 Range/Units 08:19 12:08 14:18 Troponin I < 0.012 < 0.012 0.012 (0.000-0.034) ng/mL Liver Function 08/22/24 Range/Units 08:19 Total Bilirubin 0.7 (0.2-1.3) mg/dL AST 30 (14-36) U/L ALT 13 (6-35) U/L Alkaline Phosphatase 105 (38-126) U/L Albumin 3.1 L (3.5-5.1) g/dL Urine 08/22/24 Range/Units 11:40 Urine Color Yellow (Yellow) Urine Appearance Clear (Clear) Urine pH 5.5 (5.0-9.0) Ur Specific [place] 1.014 (1.001-1.035) Urine Protein 3+ H (Negative) mg/dL Urine Glucose (UA) 2+ H (Negative) mg/dL ECG Interpretation: 2024-08-22 11:39:33 Measurements Intervals [place] Rate: 89 P: 33 MT: 164 QRS: -45 QRSD: 125 T: 7 QT: 390 QTc: 477 Interpretive Statements SINUS RHYTHM RIGHT BUNDLE BRANCH BLOCK [120+ ms QRS DURATION, UPRIGHT V1, 40+ ms S IN I/aVL/V4/V5/V6] LEFT ANTERIOR FASCICULAR BLOCK [QRS AXIS <= -45, QR IN I, RS IN II] ABNORMAL ECG Assessment and Plan Assessment and plan (1) Gastroenteritis: Code(s): K52.9 - Noninfective gastroenteritis and colitis, unspecified Status: Acute Assessment and Plan: With electrolyte imbalance IV fluids for hydration Repeat electrolytes as needed (2) Leukocytosis: Code(s): D72.829 - Elevated white blood cell count, unspecified Status: Acute Assessment and Plan: Likely secondary to above Blood cultures pending UA negative for UTI (3) Acute kidney injury: Code(s): N17.9 - Acute kidney failure, unspecified Status: Inactive Assessment and Plan: On CKD baseline around 2.6 IV fluids for hydration Continue sodium bicarb tabs Daily BMP (4) Pleural effusion: Code(s): J90 - Pleural effusion, not elsewhere classified Status: Acute Assessment and Plan: Blunting of the costophrenic angle Patient may benefit from a IR thoracentesis as she is having shortness of breath Lovenox on hold for possible procedure (5) Pericardial effusion: Code(s): I31.39 - Other pericardial effusion (noninflammatory) Status: Acute Assessment and Plan: Echocardiogram pending (6) Diabetes mellitus: Qualifiers: Diabetes mellitus complication detail: with diabetic retinopathy Diabetes mellitus complication status: with ophthalmic complications Diabetes mellitus long-term insulin use: without long-term use Diabetes mellitus macular edema: without macular edema Diabetes mellitus type: type 2 Diabetic retinopathy severity: with unspecified retinopathy severity Laterality: right Qualified Code(s): E11.319 - Type 2 diabetes mellitus with unspecified diabetic retinopathy without macular edema Code(s): E11.9 - Type 2 diabetes mellitus without complications Status: Acute Assessment and Plan: Diabetic diet SSI an Lantus A.c. HS Clear liquid diabetic diet advance as tolerated Eyedrops for right eye reordered (7) Hypertension: Code(s): I10 - Essential (primary) hypertension Status: Acute Assessment and Plan: Continue home medication Quality VTE Prophylaxis VTE prophylaxis: mechanical ordered Hospitalist MIPS Advance Care Plan I have confirmed that the patient's Advanced Care Plan is present, code status is documented, or surrogate decision maker is listed in patient medical record.: Yes Medication Reconciliation I have utilized all available resources to obtain, update and review the patients current medications (includes all prescriptions, OTC, herbals, cannabis, and nutritional supplements).: Yes
[2024-08-22] MEDS: LACTATED RINGERS 1,000 ML 125 ML IV CONT (16:19)
--- NOTE | 2024-08-22 17:39 | ADMGEN ---
This patient, Arely Ernandez, was admitted to 3 [facility] Room 315-02. Patient/family oriented to hospital policies and general routines including ID bracelet, bed and alarms, visiting hours, pain management, procedures, bathroom and other care routines, personal items, smoking policy, room service/diet, and visiting hours. Information on how to activate the Rapid Response Team has been discussed. Patient/Family are encouraged to report perceived risks to care and to ask questions if they do not understand what they are told or what they should do.
[2024-08-22] MEDS: SODIUM CHLORIDE 0.9% IV 1,000 ML 100 ML IV CONT (18:56)
[2024-08-23] VITALS (15 sets, daily range): BP systolic 93–172; BP diastolic 16–107; PULSE 74–116; RESP 18–44; TEMP 36.7–37.6; O2SAT 91–100
--- NOTE | 2024-08-23 | ECHO_ITS ---
Patient Info Name: Arely Ernandez Age: 63 years : 1960 Gender: Female Ht: 67 in Wt: 208 lbs BSA: 2.14 m2 HR: 104 bpm BP: 149 / 88 mmHg Technical Quality: Good Exam Date: 08/23/2024 11:24 AM Exam Location: Echo Lab Patient Status: Inpatient Admit Date: 08/23/2024 Staff Ordering Physician: Svitlana Church APRN Hand Sign Writer: Anabella Orosco RDCS Attending Provider: Svitlana Church APRN Referring Physician: Lynnette BEE; Exam Type: CA echo doppler color flow Study Info Indications - moderate pericardial effussion Complete two-dimensional, color flow and Doppler transthoracic echocardiogram is performed. Prior Interventions PCI: Yes Summary 1. Complete two-dimensional, color flow and Doppler transthoracic echocardiogram is performed. 2. Left ventricular systolic function is normal, estimated at 60-65%. 3. There is mildly increased left ventricular wall thickness. 4. The left ventricular diastolic function is abnormal. 5. There is trace tricuspid valve regurgitation. 6. Mild pulmonary hypertension, estimated pulmonary arterial systolic pressure is 39 mmHg. 7. There is moderate pericardial effusion. No Tamponade. Left Ventricle Left ventricular chamber dimension is normal. Left ventricular systolic function is normal, estimated at 60-65%. There is mildly increased left ventricular wall thickness. Left ventricular septal wall motion is normal. The left ventricular diastolic function is abnormal. Right Ventricle Right ventricular chamber dimension is normal. Right ventricular systolic function is normal. Left Atria Left atrial chamber dimension is normal. Right Atria Right atrial chamber dimension is normal. Aortic Valve The aortic valve is trileaflet. There is no aortic valve sclerosis. There is no aortic valve stenosis. There is no aortic valve regurgitation. Pulmonic Valve The pulmonic valve is normal. There is no pulmonic valve stenosis. There is no pulmonic regurgitation. Mitral Valve The mitral valve has normal leaflets. There is no mitral valve stenosis. There is no mitral valve regurgitation. There is mild mitral valve calcification. Tricuspid Valve The tricuspid valve leaflets are normal. There is no significant tricuspid valve stenosis. There is trace tricuspid valve regurgitation. Mild pulmonary hypertension, estimated pulmonary arterial systolic pressure is 39 mmHg. Pericardium/Pleural The pericardium appears normal. There is moderate pericardial effusion. No Tamponade. Inferior Vena Cava Dilated inferior vena cava with <50% collapse upon inspiration consistent with Empty right atrial pressure, 10 mmHg. Aorta The aortic root size at the sinus of Valsalva is normal. The prox ascending aorta size is normal. Left Ventricular Outflow Tract Name Value Normal LVOT 2D LVOT Diameter 2.0 cm LVOT Doppler LVOT Peak Gradient 2 mmHg LVOT Mean Gradient 1 mmHg LVOT VTI 10 cm LVOT VTI/AV VTI Ratio 0.6 LVOT Stroke Volume 31 ml LVOT CO 3.0 l/min LVOT CI 1.4 l/min/m2 Pulmonic Valve Name Value Normal RVOT Doppler RVOT Peak Gradient 3 mmHg PV Doppler PV Peak Gradient 5 mmHg Mitral Valve Name Value Normal MV Doppler MV Decel Villalba 820 cm/s2 MV PHT 26 ms MV Area (PHT) 8.5 cm2 4.0-5.0 MV Diastolic Function MV E Peak Velocity 73 cm/s MV A Peak Velocity 35 cm/s MV E/A 2.1 MV Decel Time 89 ms MV Annular TDI MV E/e' (Septal) 7.8 <=8.0 MV E/e' (Lateral) 8.7 <=8.0 MV E/e' (Average) 8.3 Tricuspid Valve Name Value Normal TV Regurgitation Doppler TR Peak Velocity 243 cm/s TR Peak Gradient 21 mmHg Estimated PAP/RSVP RA Pressure 10 mmHg <=5 PA Systolic Pressure 39 mmHg <36 RV Systolic Pressure 34 mmHg <36 Aorta Name Value Normal Ascending Aorta Ao Root Diameter (MM) 3.0 cm Ao Root Diam Index (MM) 1.4 cm/m2 Aortic Valve Name Value Normal AV Doppler AV Peak Velocity 118 cm/s AV Peak Gradient 6 mmHg AV Mean Gradient 3 mmHg AV VTI 15 cm AV Area (Cont Eq VTI) 2.0 cm2 >=3.0 AV Area (Cont Eq Tito) 1.8 cm2 AV Regurgitation 2D LVOT Area 3.2 cm2 Ventricles Name Value Normal LV Dimensions 2D/MM IVS Diastolic Thickness (2D) 1.2 cm 0.6-1.0 LVID Diastole (2D) 3.7 cm 3.8-5.2 LVIW Diastolic Thickness (2D) 1.1 cm 0.6-0.9 LVID Systole (2D) 2.6 cm 2.2-3.5 LVOT Diameter 2.0 cm LV Mass (2D Cubed) 142.36 g 67.00-162.00 LV Mass Index (2D Cubed) 66 g/m2 43-95 Relative Wall Thickness (2D) 0.61 LV Fractional Shortening/Ejection Fraction 2D/MM LV Fractional Shortening (2D) 31 % 27-45 LV EF (2D Teicholz) 60 % 54-74 LV Diastolic Volume (4C MOD) 58 ml LV EF (4C MOD) 68 % LV Diastolic Volume (2C MOD) 48 ml LV EF (2C MOD) 71 % LV Diastolic Volume (BP MOD) 53 ml 46-106 LV Diastolic Volume Index (BP MOD) 25 ml/m2 29-61 LV Systolic Volume (BP MOD) 17 ml 14-42 LV Systolic Volume Index (BP MOD) 8 ml/m2 8-24 LV EF (BP MOD) 68 % 54-74 LV Diastolic Length (4C) 7.0 cm LV Systolic Length (4C) 6.4 cm LV Stroke Volume (4C MOD) 39 ml Atria Name Value Normal LA Dimensions LA Dimension (MM) 3.5 cm 2.7-3.8 LA Volume (4C A-L) 21 ml LA Volume (BP A-L) 26 ml RA Dimensions RA Area (4C) 10.6 cm2 <=18.0 Report Signatures
[2024-08-23] MEDS: DORZOLAMIDE HCL 2% OPHTH DROPS 1 DROP RIGHT EYE ×3 (00:03→17:00)
[2024-08-23] MEDS: BRIMONIDINE TARTRATE 0.2% OP SOLN 5 ML BTL 1 DROP EACH EYE ×3 (00:03→17:00)
[2024-08-23] MEDS: hydrALAZINE HCL 50 MG TABLET PO ×2 (00:03→14:00)
[2024-08-23] MEDS: ARTIFICIAL TEARS OPHTH SOLN 15 ML BOTTLE 1 DROP RIGHT EYE ×3 (00:03→18:00)
[2024-08-23] MEDS: TIMOLOL MALEATE 0.5% OP SOLN 5 ML BOTTLE 1 DROP EACH EYE ×3 (00:03→17:00)
[2024-08-23 00:38] LABS: Glucose Point of Care 60 mg/dl (65-105)
[2024-08-23 01:02] LABS: Glucose Point of Care 90 mg/dl (65-105)
[2024-08-23] MEDS: DEXTROSE 50% 25 GM/50 ML SYRINGE IV PUSH ×2 (05:27→05:35)
[2024-08-23] MEDS: DEXTROSE 5% 1,000 ML 1,000 ML 100 ML IVPB (05:27)
[2024-08-23 06:11] LABS: Glucose Point of Care 142 mg/dl (65-105)
[2024-08-23 06:11] LABS: Glucose Point of Care 34 mg/dl (65-105)
[2024-08-23] MEDS: DEXTROSE 10% 1,000 ML 50 ML IV CONT (06:19)
[2024-08-23] MEDS: FUROSEMIDE INJ 40 MG/4 ML VIAL IV PUSH ×2 (06:20→10:38)
[2024-08-23 06:47] LABS: Basophils Percent Auto 0.2 % (0.2-1.2); Eosinophils Absolute Auto 0.1 K/mm3 (0-0.3); Eosinophils Percent Auto 1.4 % (0-4.4); Hematocrit 27.7 % (37.0-47.0); Hemoglobin 8.6 g/dL (12.0-15.0); Immature Granulocyte Absolute 0.08 K/mm3 (0.00-0.031); Immature Granulocyte Percent A 0.8 % (0-0.5); Lymphocytes Absolute Auto 1.16 K/mm3 (0.9-3.2); Lymphocytes Percent Auto 12.3 % (18.3-44.2); Mean Corpuscular Volume 86.8 fl (80-100); Mean Platelet Volume 10.2 fl (7.4-10.4); Monocytes Absolute Auto 1.1 K/mm3 (0.1-0.6); Monocytes Percent Auto 11.2 % (2.6-8.5); Neutrophils Percent Auto 74.1 % (45.5-73.1); Platelet Count Result 193 k/mm3 (150-375); Red Blood Count 3.19 M/mm3 (4.2-5.4); Red Cell Distribution Width 14.3 % (11.5-14.5); White Blood Count 9.5 K/mm3 (4.5-10.0)
[2024-08-23 06:59] LABS: Anion Gap 3 mmol/L (4-12); Blood Urea Nitrogen 39 mg/dL (7-17); Calcium 7.5 mg/dL (8.4-10.2); Carbon Dioxide 17 mmol/L (22-30); Chloride 112 mmol/L (98-107); Estimated Glomerular Filt Rate 16; Glucose 115 mg/dL (65-110); Phosphorus 4.4 mg/dL (2.5-4.5); Potassium 4.2 mmol/L (3.4-5.0); Sodium 132 mmol/L (137-145)
[2024-08-23 07:08] LABS: NT Pro B Type Natriuretic Pept 6590 pg/mL (19.9-100)
[2024-08-23 07:32] LABS: Glucose Point of Care 112 mg/dl (65-105)
[2024-08-23 08:30] LABS: Glucose Point of Care 116 mg/dl (65-105)
--- NOTE | 2024-08-23 08:32 | PC.NURSE ---
Patient arrived to ICU department room 1 at 0830. Assessment preformed, vitals obtained and patient attached to cardiac care unit nurse. Blood glucose POC obtained. Report received by MISAEL Arredondo.
--- NOTE | 2024-08-23 08:37 | PC.NURSE ---
This patient, Arely Ernandez, was transferred to ICU 1 on 08/23/24 at 0815. Personal belongings sent with patient. Report given to MISAEL Quiroz. Appropriate documentation sent with patient.
[2024-08-23] MEDS: amLODIPine BESYLATE 5 MG TABLET PO (09:00)
[2024-08-23] MEDS: ROSUVASTATIN 5 MG TABLET PO (09:00)
[2024-08-23 09:19] LABS: Alveolar/Arterial O2 Gradient 83.5 mmHg; Base Excess ABG -7.8 mEq/l (+/-2.0); Device NASAL CANNULA; Fractional Inspired Oxygen 28 %; HCO3 ABG 15.5 mEq/l (22.0-26.0); Modified Allen's Test Pass; Oxygen Content ABG 12.4 %vol (16.0-22.0); Oxyhemoglobin 96.2 % THb (90.0-100.0); PCO2 ABG 24.5 mmHg (35.0-45.0); PO2 ABG 87.2 mmHg (80.0-100.0); PO2 FiO2 Ratio Arterial Blood 3.11 %; Site Drawn RIGHT RADIAL; Total Hemoglobin 9.1 g/dL (12.0-18.0); pH ABG 7.418 (7.350-7.450)
[2024-08-23] MEDS: METOPROLOL SUCCINATE EXT REL 100 MG TABCR PO (10:38)
[2024-08-23] MEDS: SODIUM BICARBONATE TAB 650 MG TABLET PO (10:39)
[2024-08-23] MEDS: FERROUS SULFATE 325 MG TABLET DR PO (10:40)
[2024-08-23 10:47] LABS: Glucose Point of Care 103 mg/dl (65-105)
[2024-08-23] MEDS: ENOXAPARIN 30 MG/0.3 ML SYRINGE SUB-Q (11:05)
--- NOTE | 2024-08-23 11:06 | P.CONCA_ITS ---
Assessment and Plan Assessment and plan (1) Pericardial effusion: Code(s): I31.39 - Other pericardial effusion (noninflammatory) Status: Acute Assessment and Plan: Moderate pericardial effusion seen on chest CT. Stat bedside echocardiogram was performed that showed a moderate posterior pericardial effusion with no evidence of tamponade. Based on her description of chest discomfort, presence of pericardial effusion and pericardial rub on examination, I suspect she has acute pericarditis. Therefore, will begin treatment with anti-inflammatory therapy. * Ibuprofen 600mg t.i.d. (this should be tapered by 200mg/week) * Colchicine 0.6m b.i.d. for 3 months * Repeat limited echocardiogram as an outpatient * Would expect symptomatic improvement within 24 hours * Hemodynamically stable * Will check ESR, CRP, DULCE, and rheumatoid factor (2) Pleural effusion: Code(s): J90 - Pleural effusion, not elsewhere classified Status: Acute Assessment and Plan: Etiology is unclear. Does not appear to have CHF/volume overload. Thoracentesis has been ordered. (3) Leukocytosis: Code(s): D72.829 - Elevated white blood cell count, unspecified Status: Acute Assessment and Plan: She has gastroenteritis. Supportive care and electrolyte replenishment per hospitalist service. (4) Shortness of breath: Code(s): R06.02 - Shortness of breath Status: Acute Assessment and Plan: Thoracentesis ordered for today. (5) Atrial fibrillation: Code(s): I48.91 - Unspecified atrial fibrillation Status: Acute Assessment and Plan: This is a new diagnosis. Generally rate controlled on Toprol XL 100mg daily (home medication). Since this is likely related to underlying infection,pericarditis, will plan for rate control as underlying cause is treated. She has a CHADS2 Vasc score of 3 (gender, diabetes, hypertension), so anticoagulation is indicated. However, she has a thoracentesis ordered, therefore will hold off on anticoagulation for now. No plan to attempt to restore sinus rhythm given underlying pericardial effusion, and given the fact that she is hemodynamically stable. History of Present Illness History of Present Illness Consult date/time: 08/23/24 11:06 Requesting physician: Svitlana Church APRN Consult reason: Other (pericardial effusion) Reason For Visit: Gastroenteritis Narrative: Arely Ernandez is a 63 year old female with diabetes mellitus co reports that she came to the hospital because of problems with low blood sugar. Cardiology is consulted because of finding of a moderate pericardial effusion by chest CT. Patient provides the following history. She reports having respiratory illness with pneumonia which was diagnosed in February. She states that she has had ongoing shortness of breath since that time. However, over the past few days she has also developed chest pain that she describes as a ?punching? and sharp sensation in the middle of her chest. The pain constant and is worse with any type of movement and with coughing. Review of Systems 2 Constitutional: Constitutional: Denies chills, Denies fever(s), Denies headache(s) and Denies malaise Eyes: Eyes: Denies change in vision ENT: Reports Normal hearing present, Denies dizziness, Denies headache(s) and Denies hearing loss Cardiovascular: Cardiovascular: Denies chest pain, Denies chest pain at rest, Denies chest pain with activity, Denies syncope, Denies leg edema, Denies palpitations, Denies dyspnea and Denies dyspnea on exertion Respiratory: Respiratory: Denies cough, Denies dyspnea, Denies dyspnea on exertion and Denies wheezing Gastrointestinal: Gastrointestinal: Denies abdominal pain, Denies constipation and Denies diarrhea Genitourinary: Genitourinary: Denies hematuria and Denies dysuria Musculoskeletal: Musculoskeletal: Denies myalgias, Denies arthralgias and Denies muscle cramps Integumentary/Breasts: Skin/Breast: Denies wounds Neurologic: Reports Normal hearing present, Denies confusion, Denies dizziness, Denies syncope and Denies headache(s) Psychiatric: Psychiatric: Denies anxiety, Denies confusion and Denies depression Endocrine: Endocrine: Denies cold intolerance, Denies flushing, Denies heat intolerance and Denies palpitations Hematologic/Lymphatic: Hematologic/Lymphatic: Denies easy bleeding and Denies easy bruising Allergic/Immunologic: Allergic/Immunologic: Denies wheezing PMFSH Past Medical History Medical History Diabetes mellitus Chronic renal disease Anxiety Surgical History Surgical History History of appendectomy Social History Social History Smoking status: Former smoker Tobacco type: cigarettes Alcohol intake: never Substance use: never Substance use type: does not use Do You Feel Safe in your Home?: Yes Lack of Transportation: No Lack of Food: Never True Current Housing: I Have Housing Concerned About Future Housing: No Difficulty Paying Gas/Electric Bills: No Difficulty Paying for Meds: No Currently Unemployed: No Education: High School Diploma/GED Difficulty w/ Childcare or Family Care: No Spiritual care concerns: No Meds Home Medications and Allergies Home Medications ?Medication ?Instructions ?Recorded ?Confirmed ?Type amlodipine 5 mg tablet 5 mg PO QAM 08/22/24 08/22/24 History brimonidine 0.2 % eye drops 1 drp EACH EYE BID 08/22/24 08/22/24 History cholecalciferol (vitamin D3) 50 50 mcg PO QAM 08/22/24 08/22/24 History mcg (2,000 unit) tablet (D3 DOTS) dapagliflozin propanediol 10 mg 10 mg PO QAM 08/22/24 08/22/24 History tablet (Farxiga) dorzolamide 2 % eye drops 1 drp RIGHT EYE BID 08/22/24 08/22/24 History ferrous sulfate 325 mg (65 mg 325 mg PO QAM 08/22/24 08/22/24 History iron) tablet (FeroSul) glimepiride 2 mg tablet 4 mg PO QAM 08/22/24 08/22/24 History hydralazine 50 mg tablet 50 mg PO TID 08/22/24 08/22/24 History metoprolol succinate 100 mg 100 mg PO QAM 08/22/24 08/22/24 History tablet,extended release 24 hr polyvinyl alcohol-povidone 0.5 1 drp RIGHT EYE BID 08/22/24 08/22/24 History %-0.6 % eye drops (Artificial Tears (polyvinyl alcohol/povidone)) rosuvastatin 5 mg tablet 5 mg PO QAM 08/22/24 08/22/24 History sodium bicarbonate 650 mg tablet 650 mg PO TID 08/22/24 08/22/24 History timolol maleate 0.5 % eye drops 1 drp EACH EYE BID 08/22/24 08/22/24 History Allergies Allergy/AdvReac Type Severity Reaction Status Date / Time Penicillins Allergy Unknown Unknown Verified 08/22/24 08:03 coconut Allergy Hives Verified 08/22/24 08:03 Vital Signs Vital Signs - 24 hr 08/22/24 13:00 08/22/24 13:30 08/22/24 14:01 Temperature Pulse Rate 91 91 93 Respiratory Rate 31 H 28 H 34 H Blood Pressure 111/60 114/59 L 121/68 Pulse Oximetry 95 95 97 Oxygen Delivery Oxygen Flow Rate Fraction of Inspired Oxygen 08/22/24 14:31 08/22/24 15:02 08/22/24 15:32 Temperature Pulse Rate 92 89 88 Respiratory Rate 32 H 25 H 27 H Blood Pressure 134/79 126/64 127/65 Pulse Oximetry 97 98 97 Oxygen Delivery Oxygen Flow Rate Fraction of Inspired Oxygen 08/22/24 16:02 08/22/24 18:00 08/22/24 20:00 Temperature Pulse Rate 89 96 Respiratory Rate 26 H 18 Blood Pressure 118/66 Pulse Oximetry 97 96 Oxygen Delivery Room Air Room Air Oxygen Flow Rate Fraction of Inspired Oxygen 08/22/24 22:00 08/23/24 06:00 08/23/24 08:30 Temperature 36.3 C L 36.7 C 37.5 C Pulse Rate 96 97 99 Respiratory Rate 18 38 H 36 H Blood Pressure 167/83 H 147/74 H 150/83 H Pulse Oximetry 96 91 99 Oxygen Delivery Oxygen Flow Rate Fraction of Inspired Oxygen 08/23/24 09:15 08/23/24 10:38 08/23/24 10:42 Temperature Pulse Rate 101 H 101 H Respiratory Rate 34 H Blood Pressure 169/83 H Pulse Oximetry 97 99 Oxygen Delivery Nasal Cannula Oxygen Flow Rate 2 Fraction of Inspired Oxygen 28 Exam 2 Const: General: no acute distress, alert, awake and uncomfortable O rientation/consciousness: patient oriented x3 HENMT: Head: normal to inspection Eyes: General: appearance normal, both eyes and all related structures P upils: Equal, round and reactive pupils present Neck: Neck: normal visual inspection, supple and no JVD Carotids: normal carotid upstroke Resp: Effort & Inspection: normal respiratory effort Auscultation: clear to auscultation bilaterally, rales and diminished lung sounds Cardio: Rate: tachycardic (mild tachycardia HR 105) Rhythm: abnormal rhythm Heart sounds: S1 normal heart sound present, S2 normal heart sound present, no murmurs and Rub heart sound present GI: Auscultation: normal bowel sounds Skin: General skin exam: normal color Neuro: General: patient oriented x3 Cranial nerves: Yes Equal, round and reactive pupils present Extrem: General: normal to inspection Psych: Appearance: grossly normal Affect: Anxious affect present Results Labs and Meds 08/23/24 06:38 08/23/24 06:38 Lab results: Cardiac Enzymes 08/22/24 08/22/24 Range/Units 12:08 14:18 Troponin I < 0.012 0.012 (0.000-0.034) ng/mL CBC 08/23/24 Range/Units 06:38 WBC 9.5 (4.5-10.0) K/mm3 RBC 3.19 L (4.2-5.4) M/mm3 Hgb 8.6 L (12.0-15.0) g/dL Hct 27.7 L (37.0-47.0) % Plt Count 193 (150-375) k/mm3 Lymph # (Auto) 1.16 (0.9-3.2) K/mm3 [place] # (Auto) 1.1 H (0.1-0.6) K/mm3 Eos # (Auto) 0.1 (0-0.3) K/mm3 Baso # (Auto) 0.0 (0.0-0.1) K/mm3 Comprehensive Metabolic Panel 08/23/24 Range/Units 06:38 Sodium 132 L (137-145) mmol/L Potassium 4.2 (3.4-5.0) mmol/L Chloride 112 H (98-107) mmol/L Carbon Dioxide 17 L (22-30) mmol/L BUN 39 H (7-17) mg/dL Creatinine 3.00 H (0.7-1.0) mg/dL Glucose 115 H (65-110) mg/dL Calcium 7.5 L (8.4-10.2) mg/dL Intake and Output 08/22/24 08/23/24 08/23/24 23:59 07:59 15:59 Intake Total 1311.7 Balance 1311.7 Intake: IV 1071.7 Sodium Chloride 0.9% IV 1,000 1000 ml @ 100 mls/hr IV CONT .Q10H [facility] Rx#:[id number] Dextrose 5% 1,000 ml 1,000 ml @ 71.7 100 mls/hr IVPB PRN PRN Rx#: [id number] Oral 240 Other: # Unmeasured Voids 2
--- NOTE | 2024-08-23 11:39 | ECG_ITS ---
Test Date: 2024-08-23 12:27:31 Measurements Intervals [place] Rate: 99 P: 0 AL: 0 QRS: -39 QRSD: 124 T: -1 QT: 370 QTc: 477 Interpretive Statements ATRIAL FIBRILLATION MARKED LEFT AXIS DEVIATION [QRS AXIS < -30] RIGHT BUNDLE BRANCH BLOCK [120+ ms QRS DURATION, UPRIGHT V1, 40+ ms S IN I/aVL/V4/V5/V6] WARNING: DATA QUALITY MAY AFFECT INTERPRETATION Compared to ECG 08/22/2024 11:39:33 Sinus rhythm no longer present Electronically Signed On 08-23-2024 18:08:43 [employer] by Eugenio Marks M.D.
[2024-08-23] MEDS: SODIUM BICARBONATE 8.4% 150 MEQ in DEXTROSE 5% 1,000 ML 950 ML 50 MEQ IV CONT (12:00)
[2024-08-23 12:13] LABS: Rheumatoid Factor < 12.0 IU/ML (<12)
--- NOTE | 2024-08-23 13:38 | PC.NURSE ---
RN placed purewick (external urethral catheter) on patient at 1030 for accurate output post IV push diuretics. went back to assess urine output and noted 150 mls output total in urine in collection canister. Patient states they do not feel the need to void. RN bladder scanned patient at 1339, with findings of 913 mls of residual urine in bladder after urination. RN to update provider.
[2024-08-23 13:44] LABS: Glucose Point of Care 115 mg/dl (65-105)
[2024-08-23 13:44] LABS: Erythrocyte Sedimentation Rate > 140 mm/hr (0-20)
[2024-08-23] MEDS: IBUPROFEN 600 MG TABLET PO ×2 (14:00→18:35)
[2024-08-23 14:22] LABS: CRP 13.9 mg/dL (<1.0)
[2024-08-23 14:45] LABS: INR 1.3; Prothrombin Time 16.5 Seconds (11.1-14.7)
[2024-08-23 14:47] LABS: Albumin Level 2.6 g/dL (3.5-5.1); Amylase 71 U/L (30-110); Bilirubin,Total 0.7 mg/dL (0.2-1.3); Cholesterol 88 mg/dL (0-200); Glucose 95 mg/dL (65-110); Lactate Dehydrogenase 218 U/L (120-246); Triglycerides 101 mg/dL (<150)
[2024-08-23 15:18] LABS: Glucose Point of Care 98 mg/dl (65-105)
--- NOTE | 2024-08-23 15:55 | P.HP_ITS ---
H&P: HPI History of Present Illness Date/Time: 08/23/24 15:55 Review of Systems Review of Systems: 12 systems were reviewed and are negativ e except for as per HPI. [facility] Past Medical History Medical History Diabetes mellitus Chronic renal disease Anxiety Surgical History Surgical History History of appendectomy Social History Social History Smoking status: Former smoker Tobacco type: cigarettes Alcohol intake: never Substance use: never Substance use type: does not use Do You Feel Safe in your Home?: Yes Lack of Transportation: No Lack of Food: Never True Current Housing: I Have Housing Concerned About Future Housing: No Difficulty Paying Gas/Electric Bills: No Difficulty Paying for Meds: No Currently Unemployed: No Education: High School Diploma/GED Difficulty w/ Childcare or Family Care: No Spiritual care concerns: No Meds Home Medications and Allergies Home Medications ?Medication ?Instructions ?Recorded ?Confirmed ?Type amlodipine 5 mg tablet 5 mg PO QAM 08/22/24 08/22/24 History brimonidine 0.2 % eye drops 1 drp EACH EYE BID 08/22/24 08/22/24 History cholecalciferol (vitamin D3) 50 50 mcg PO QAM 08/22/24 08/22/24 History mcg (2,000 unit) tablet (D3 DOTS) dapagliflozin propanediol 10 mg 10 mg PO QAM 08/22/24 08/22/24 History tablet (Farxiga) dorzolamide 2 % eye drops 1 drp RIGHT EYE BID 08/22/24 08/22/24 History ferrous sulfate 325 mg (65 mg 325 mg PO QAM 08/22/24 08/22/24 History iron) tablet (FeroSul) glimepiride 2 mg tablet 4 mg PO QAM 08/22/24 08/22/24 History hydralazine 50 mg tablet 50 mg PO TID 08/22/24 08/22/24 History metoprolol succinate 100 mg 100 mg PO QAM 08/22/24 08/22/24 History tablet,extended release 24 hr polyvinyl alcohol-povidone 0.5 1 drp RIGHT EYE BID 08/22/24 08/22/24 History %-0.6 % eye drops (Artificial Tears (polyvinyl alcohol/povidone)) rosuvastatin 5 mg tablet 5 mg PO QAM 08/22/24 08/22/24 History sodium bicarbonate 650 mg tablet 650 mg PO TID 08/22/24 08/22/24 History timolol maleate 0.5 % eye drops 1 drp EACH EYE BID 08/22/24 08/22/24 History Allergies Allergy/AdvReac Type Severity Reaction Status Date / Time Penicillins Allergy Unknown Unknown Verified 08/22/24 08:03 coconut Allergy Hives Verified 08/22/24 08:03 Vital Signs Vital Signs - 24 hr 08/22/24 16:02 08/22/24 18:00 08/22/24 20:00 Temperature Pulse Rate 89 96 Respiratory Rate 26 H 18 Blood Pressure 118/66 Pulse Oximetry 97 96 Oxygen Delivery Room Air Room Air Oxygen Flow Rate Fraction of Inspired Oxygen 08/22/24 22:00 08/23/24 06:00 08/23/24 08:00 Temperature 97.3 F L 98.0 F Pulse Rate 96 97 Respiratory Rate 18 38 H 35 H Blood Pressure 167/83 H 147/74 H Pulse Oximetry 96 91 99 Oxygen Delivery Nasal Cannula Oxygen Flow Rate 2 Fraction of Inspired Oxygen 08/23/24 08:30 08/23/24 08:30 08/23/24 09:15 Temperature 99.5 F Pulse Rate 99 100 Respiratory Rate 36 H Blood Pressure 150/83 H Pulse Oximetry 99 97 Oxygen Delivery Nasal Cannula Oxygen Flow Rate 2 Fraction of Inspired Oxygen 28 08/23/24 10:00 08/23/24 10:38 08/23/24 10:42 Temperature Pulse Rate 101 H 101 H 101 H Respiratory Rate 34 H Blood Pressure 169/83 H Pulse Oximetry 99 Oxygen Delivery Oxygen Flow Rate Fraction of Inspired Oxygen 08/23/24 12:00 08/23/24 12:00 08/23/24 13:31 Temperature 99.7 F H Pulse Rate 116 H 101 H Respiratory Rate 32 H 44 H Blood Pressure 172/107 H Pulse Oximetry 99 99 Oxygen Delivery Nasal Cannula Oxygen Flow Rate 2 Fraction of Inspired Oxygen 08/23/24 14:00 Temperature Pulse Rate 106 H Respiratory Rate Blood Pressure Pulse Oximetry Oxygen Delivery Oxygen Flow Rate Fraction of Inspired Oxygen Exam Narrative: General: In no acute distress, well nourished Head: atraumatic, no encephalopathy Eyes: EOMI, PERRLA, sclera clear ENT: moist mucous membranes, nasal passages clear Neck: supple, no JVD, no adenopathy, trachea midline Cardiac: Normal S1 and S2. No murmur, gallops or friction rubs, peripheral pulses intact. Respiratory: Lungs clear to auscultation, no adventitious lung sounds Gastrointestinal: soft, non-distended, non-tender, normoactive bowel sounds. : voiding without difficulty. Extremities: moves all extremities well, no edema, good ROM, strength 5/5 Skin: clean, dry, intact. No wounds or lesions. Neuro: Alert and oriented x4, cranial nerves intact, no neuro deficits. Psych: normal mood, normal affect, interactive H&P: Results Labs Labs: Short CBC 08/23/24 Range/Units 06:38 WBC 9.5 (4.5-10.0) K/mm3 Hgb 8.6 L (12.0-15.0) g/dL Hct 27.7 L (37.0-47.0) % Plt Count 193 (150-375) k/mm3 BMP 08/23/24 08/23/24 06:38 14:22 Sodium 132 L Potassium 4.2 Chloride 112 H Carbon Dioxide 17 L BUN 39 H Creatinine 3.00 H Glucose 115 H 95 Calcium 7.5 L Liver Function 08/23/24 Range/Units 14:22 Total Bilirubin 0.7 (0.2-1.3) mg/dL Albumin 2.6 L (3.5-5.1) g/dL Assessment and Plan Assessment and plan (1) Gastroenteritis: Code(s): K52.9 - Noninfective gastroenteritis and colitis, unspecified Status: Acute Assessment and Plan: * (2) Leukocytosis: Code(s): D72.829 - Elevated white blood cell count, unspecified Status: Acute (3) Acute kidney injury: Code(s): N17.9 - Acute kidney failure, unspecified Status: Inactive Assessment and Plan: On CKD baseline around 2.6 IV fluids for hydration Continue sodium bicarb tabs Daily BMP (4) Pleural effusion: Code(s): J90 - Pleural effusion, not elsewhere classified Status: Acute Assessment and Plan: Blunting of the costophrenic angle Patient may benefit from a IR thoracentesis as she is having shortness of breath Lovenox on hold for possible procedure (5) Pericardial effusion: Code(s): I31.39 - Other pericardial effusion (noninflammatory) Status: Acute Assessment and Plan: Echocardiogram pending (6) Diabetes mellitus: Qualifiers: Diabetes mellitus complication detail: with diabetic retinopathy Diabetes mellitus complication status: with ophthalmic complications Diabetes mellitus watermelon inspector insulin use: without penitentiary use Diabetes mellitus macular edema: without macular edema Diabetes mellitus type: type 2 Diabetic retinopathy severity: with unspecified retinopathy severity Laterality: right Qualified Code(s): E11.319 - Type 2 diabetes mellitus with unspecified diabetic retinopathy without macular edema Code(s): E11.9 - Type 2 diabetes mellitus without complications Status: Acute Assessment and Plan: Diabetic diet SSI an Lantus A.c. HS Clear liquid diabetic diet advance as tolerated Eyedrops for right eye reordered (7) Hypertension: Code(s): I10 - Essential (primary) hypertension Status: Acute Assessment and Plan: Continue home medication Quality VTE Prophylaxis VTE prophylaxis: mechanical ordered
[2024-08-23 17:11] LABS: Glucose Point of Care 93 mg/dl (65-105)
--- NOTE | 2024-08-23 18:30 | P.PNIM_ITS ---
Progress Note: A&P Assessment and Plan (1) Gastroenteritis: Code(s): K52.9 - Noninfective gastroenteritis and colitis, unspecified Status: Acute Assessment and Plan: * CT of the chest abdomen pelvis show fluid throughout nondilated small bowel consistent with gastroenteritis * Patient has 3 day history of nausea, vomiting, diarrhea * Bicarb 17 * Bicarb drip initiated * Continue antiemetic * White blood cell count 14.6, ESR 140, CRP 13.9 (2) Leukocytosis: Code(s): D72.829 - Elevated white blood cell count, unspecified Status: Acute Assessment and Plan: * Likely inflammatory response * White blood cell count 14.6--gastroenteritis on CT of the chest abdomen and pelvis * blood cultures pending (3) Pericardial effusion: Code(s): I31.39 - Other pericardial effusion (noninflammatory) Status: Acute Assessment and Plan: * CTA of the chest abdomen pelvis showed a moderate size pericardial effusion * Cardiology consulted * Echo obtained and showed normal LV systolic function with an estimated EF of 60-65%, diastolic dysfunction, mild pulmonary hypertension, moderate pericardial effusion with no tamponade. * Patient given Lasix 40 mg IV push (4) Pericarditis: Code(s): I31.9 - Disease of pericardium, unspecified Status: Acute Assessment and Plan: * Continue ibuprofen and colchicine per Cardiology recommendation * Cardiology following ESR 140, CRP 13.9 * DULCE and rheumatoid factor pending * Will check immunoglobulins (5) Atrial fibrillation: Code(s): I48.91 - Unspecified atrial fibrillation Status: Acute Assessment and Plan: * EKG today showed AFib with a rate of 99, QTC 477, marked left axis deviation and right bundle branch block * Currently on metoprolol succinate * Cardiology following * Hold off on anticoagulation at this time due to thoracentesis and worsening anemia (6) Anemia: Code(s): D64.9 - Anemia, unspecified Status: Acute Assessment and Plan: * Hemoglobin 10.8 on admission, down to 8.6 this morning, recheck at 6:46 p.m. was 7.8 * No signs of active bleeding however will hold Lovenox and anticoagulation for AFib/flutter * Check stool occult blood * Continue ferrous sulfate * Will check TSH, iron, ferritin, vitamin B12, folic acid (7) Acute kidney injury: Code(s): N17.9 - Acute kidney failure, unspecified Status: Inactive Assessment and Plan: * Acute on chronic kidney disease * Creatinine 3.0 * Baseline creatinine around 2.6 * Owens catheter placed due to urinary retention of greater than 900 mL * UA was negative for bacteria, leukocytes, white blood cells, or nitrates * Continue to trend (8) Pleural effusion: Code(s): J90 - Pleural effusion, not elsewhere classified Status: Acute Assessment and Plan: * CT of the chest abdomen and pelvis shows small bilateral pleural effusions * Thoracentesis today only yield 1 mL of fluid before clotting * Pleural fluid sent for labs (9) Diabetes mellitus: Qualifiers: Diabetes mellitus complication detail: with diabetic retinopathy Diabetes mellitus complication status: with ophthalmic complications Diabetes mellitus snf insulin use: without snf use Diabetes mellitus macular edema: without macular edema Diabetes mellitus type: type 2 Diabetic retinopathy severity: with unspecified retinopathy severity Laterality: right Qualified Code(s): E11.319 - Type 2 diabetes mellitus with unspecified diabetic retinopathy without macular edema Code(s): E11.9 - Type 2 diabetes mellitus without complications Status: Chronic Assessment and Plan: * Blood sugars ranging 93-103 * Hgb A1C 12.5 * Accu checks q.6 hour * Low-dose SSI ordered * hypoglycemic protocol in place * Diabetic diet ordered--however poor p.o. intake currently on bicarb with D5W (10) Hypertension: Code(s): I10 - Essential (primary) hypertension Status: Chronic Assessment and Plan: * Blood pressure ranging 93/55 to 103/56 * Will hold amlodipine and hydralazine Time Spent With Patient Time with patient: Greater than 35 minutes Subjective Date/time seen: 08/23/24 18:30 Interval history: Interval history: This is a 63-year-old female who presented to the hospital on 08/22/2024 with complaints of nausea, vomiting, diarrhea x3 days. She is also experiencing some chest pain. Workup in the hospital included a chest x-ray which showed opacities in the bilateral lower lung zone. Chest/abdomen/pelvis CT showed small bilateral pleural effusion with likely chronic atelectasis/scarring in the bilateral lower lobes, moderate size pericardial effusion, fluid throughout non dilated small bowel consistent with gastroenteritis, sigmoid diverticulosis. Repeat chest x-ray showing mild diffuse pulmonary edema and stable cardiomegaly. Initial labs shown a white blood cell count of 14.6, hemoglobin 10.8, pH 7.367, sodium 130, bicarb 19, creatinine 3.10, EGFR 15, lactic acid was 1.5, troponin negative x2, lipase was 86. UA was obtained and showed 3+ urine protein, 2+ urine glucose, 1+ urine blood, 21-50 urine RBC. Respiratory panel was negative. C reactive protein 13.9, proBNP 6590, ESR greater than 140. DULCE and rheumatoid factor pending. Cardiology consulted for pericardial effusion. Stat echo was obtained which showed normal LV systolic function with an estimated EF of 60- 65%, abnormal diastolic function, mild pulmonary hypertension, moderate pericardial effusion without evidence of tamponade. Patient was moved to IMU status this morning due to low blood glucose of 34. They placed her on Q2h Accu-Cheks and a D10 drip. D10 was discontinued and a transition to bicarb with D5W. Blood glucose stable. Owens catheter was placed due to urinary retention of greater than 900 mL urine in bladder on bladder scan. She also underwent a thoracentesis however only 1 mL of pleural fluid was removed and sent for labs. EKG showing atrial fibrillation with marked left axis deviation, right bundle branch block with a rate of 99, QTC 477. At the time of my assessment it appears that she is in a flutter with 2 :1 ratio. This appears to be new onset. Subjective: Patient denies any fever, chills, nausea, vomiting, diarrhea, abdominal pain, chest pain. She is tachypneic at rest with respiration in the 40s on 2 L nasal cannula. She is fatigued and weak appearing. Family is at the bedside. Labs and imaging reviewed. Review of Systems Review of Systems: 12 systems were reviewed and are negativ e except for as per HPI. Exam Narrative: General: In no acute distress, well nourished Head: atraumatic, no encephalopathy Eyes: PERRLA, sclera clear, blind in right eye ENT: moist mucous membranes, nasal passages clear Neck: supple, no JVD, no adenopathy, trachea midline Cardiac: Normal S1 and S2. Atrial flutter/fib on monitor, rate controlled No murmur, gallops or friction rubs, peripheral pulses intact. Respiratory: Lung sounds crackles bilateral bases, no adventitious lung sounds, currently on 2L NC Gastrointestinal: soft, non-distended, non-tender, normoactive bowel sounds. : Owens catheter in place draining clear sandra urine Extremities: moves all extremities well, no edema Skin: Bronzed skin color, excessively dry and flaky Neuro: Alert and oriented x4, cranial nerves intact, no neuro deficits. Psych: normal mood, normal affect, interactive Objective Data Vital Signs Vital Signs: Vital Signs - 24 hr 08/22/24 20:00 08/22/24 22:00 08/23/24 06:00 Temperature 97.3 F L 98.0 F Pulse Rate 96 96 97 Respiratory Rate 18 18 38 H Blood Pressure 167/83 H 147/74 H Pulse Oximetry 96 96 91 Oxygen Delivery Room Air Oxygen Flow Rate Fraction of Inspired Oxygen 08/23/24 08:30 08/23/24 08:30 08/23/24 08:30 Temperature 99.5 F Pulse Rate 99 100 Respiratory Rate 36 H 35 H Blood Pressure 150/83 H Pulse Oximetry 99 99 Oxygen Delivery Nasal Cannula Oxygen Flow Rate 2 Fraction of Inspired Oxygen 08/23/24 09:15 08/23/24 10:00 08/23/24 10:38 Temperature Pulse Rate 101 H 101 H Respiratory Rate Blood Pressure Pulse Oximetry 97 Oxygen Delivery Nasal Cannula Oxygen Flow Rate 2 Fraction of Inspired Oxygen 28 08/23/24 10:42 08/23/24 12:00 08/23/24 12:00 Temperature Pulse Rate 101 H 116 H Respiratory Rate 34 H 32 H Blood Pressure 169/83 H Pulse Oximetry 99 99 Oxygen Delivery Nasal Cannula Oxygen Flow Rate 2 Fraction of Inspired Oxygen 08/23/24 13:31 08/23/24 14:00 08/23/24 16:00 Temperature 99.7 F H 99.3 F Pulse Rate 101 H 106 H 76 Respiratory Rate 44 H 18 Blood Pressure 172/107 H 93/55 L Pulse Oximetry 99 100 Oxygen Delivery Oxygen Flow Rate Fraction of Inspired Oxygen 08/23/24 16:00 08/23/24 16:00 08/23/24 18:00 Temperature Pulse Rate 79 77 Respiratory Rate 30 H Blood Pressure Pulse Oximetry 96 Oxygen Delivery Nasal Cannula Oxygen Flow Rate 2 Fraction of Inspired Oxygen Intake/Output Intake/Output: Intake & Output 08/20/24 08/21/24 08/22/24 08/23/24 23:59 23:59 23:59 23:59 Intake Total 3000 1797.7 Output Total 150 1101 Balance 2850 696.7 Meds/Results Medications: Active Medications Generic Name Dose Route Start Last Admin Trade Name Freq PRN Reason Stop Dose Admin Acetaminophen 650 mg 08/22/24 17:22 Acetaminophen 325 Mg Tablet PO Q4H PRN Mild Pain (1-3) or Fever Amlodipine Besylate 5 mg 08/23/24 09:00 08/23/24 09:00 Amlodipine Besylate 5 Mg Tablet PO 5 mg QAM NAHOMI Administration Artificial Tears 1 drop 08/22/24 23:00 08/23/24 11:06 Artificial Tears Ophth Soln 15 Ml Bottle RIGHT EYE 1 drop BID NAHOMI Administration Brimonidine Tartrate 1 drop 08/22/24 23:00 08/23/24 11:05 Brimonidine Tartrate 0.2% Op Soln 5 Ml Btl EACH EYE 1 drop BID NAHOMI Administration Colchicine 0.6 mg 08/23/24 21:00 Colchicine 0.6 Mg Tablet PO Q12HR NAHOMI Dextrose 12.5 gm 08/22/24 22:55 08/23/24 05:35 Dextrose 50% 25 Gm/50 Ml Syringe IV PUSH 12.5 gm PRN PRN Administration Hypoglycemia Protocol Dorzolamide HCl 1 drop 08/22/24 23:00 08/23/24 11:06 Dorzolamide Hcl 2% Ophth Drops RIGHT EYE 1 drop BID NAHOMI Administration Enoxaparin Sodium 30 mg 08/23/24 09:00 08/23/24 11:05 Enoxaparin 30 Mg/0.3 Ml Syringe SUB-Q 30 mg DAILY NAHOMI Administration Ferrous Sulfate 325 mg 08/23/24 09:00 08/23/24 10:40 Ferrous Sulfate [address] PO 325 mg QAM NAHOMI Administration Glucagon 1 mg 08/22/24 22:55 Glucagon For Inj 1 Mg Vial IM PRN PRN Hypoglycemia Protocol Glucose 15 gm 08/22/24 22:55 Glucose Oral Gel 15 Gm Of Glucse In 37.5 Gm Tube PO PRN PRN Hypoglycemia Protocol Hydralazine HCl 50 mg 08/22/24 23:00 08/23/24 14:00 Hydralazine Hcl 50 Mg Tablet PO 50 mg TID NAHOMI Administration Dextrose 1,000 mls @ 100 mls/hr 08/22/24 22:55 08/23/24 06:10 Dextrose 5% 1,000 Ml IVPB 0 mls/hr PRN PRN Infusion Hypoglycemia Protocol Sodium Bicarbonate 150 meq/ 1,100 mls @ 50 mls/hr 08/23/24 11:30 08/23/24 12:00 Dextrose IV CONT 50 mls/hr .Q22H NAHOMI Administration Ibuprofen 600 mg 08/23/24 13:00 08/23/24 14:00 Ibuprofen 600 Mg Tablet PO 600 mg TID NAHOMI Administration Metoprolol Succinate 100 mg 08/23/24 09:00 08/23/24 10:38 Metoprolol Succinate Ext Rel 100 Mg Tabcr PO 100 mg QAM NAHOMI Administration Ondansetron HCl 4 mg 08/22/24 15:38 Ondansetron Inj 4 Mg/2 Ml Vial IV PUSH Q4H PRN Nausea Perflutren Lipid Microsphere 0 ml 08/23/24 06:07 Perflutren Lipid Microspheres 1.5 Ml Vial Diluted To 10 Ml Total Volume IV PUSH 08/26/24 06:07 ONCE PRN adequate visualization Protocol Perflutren Lipid Microsphere 0 ml 08/23/24 09:01 Perflutren Lipid Microspheres 1.5 Ml Vial Diluted To 10 Ml Total Volume IV PUSH 08/26/24 09:01 ONCE PRN adequate visualization Protocol Rosuvastatin Calcium 5 mg 08/23/24 09:00 08/23/24 09:00 Rosuvastatin 5 Mg Tablet PO 5 mg QAM NAHOMI Administration Sodium Bicarbonate 650 mg 08/23/24 09:00 08/23/24 10:39 Sodium Bicarbonate Tab 650 Mg Tablet PO 650 mg TID NAHOMI Administration Timolol Maleate 1 drop 08/22/24 23:00 08/23/24 11:06 Timolol Maleate 0.5% Op Soln 5 Ml Bottle EACH EYE 1 drop BID NAHOMI Administration Radiology Results: ITS Impressions Chest/Abdomen/Pelvis CT 08/22/24 11:44 IMPRESSION: 1. Small bilateral pleural effusions with likely chronic atelectasis/scarring in the bilateral lower lobes. 2. Moderate-sized pericardial effusion. 3. Fluid throughout nondilated small bowel. Correlate clinically for gastroenteritis. 4. Sigmoid diverticulosis. Chest X-Ray 08/23/24 07:57 Impression: Left lower lobe pulmonary edema/atelectasis versus pneumonia. Correlate clinically. Minimal left pleural effusion. Discoid right basilar atelectasis or scarring. Thoracentesis Ultrasound 08/23/24 17:25 IMPRESSION: 1. Successful ultrasound-guided thoracentesis yielding 1 mL of yellow fluid. Note that the pleural effusion is loculated, and more fluid could not be obtained despite positioning the needle at multiple locations within the pleural effusion. Labs Labs: Laboratory Results - last 24 hr 08/23/24 08/23/24 08/23/24 00:01 00:56 05:23 WBC RBC Hgb Hct MCV MCH MCHC RDW Plt Count MPV Immature Gran % (Auto) Neut % (Auto) Lymph % (Auto) [place]zel % (Auto) Eos % (Auto) Baso % (Auto) Lymph # (Auto) [place]zel # (Auto) Eos # (Auto) Baso # (Auto) Abs Immat Gran (auto) Absolute Neuts (auto) Absolute Nucleated RBC Nucleated RBC % ESR PT INR Puncture Site ABG pH ABG pCO2 ABG pO2 ABG PO2/FiO2 Ratio ABG HCO3 ABG O2 Saturation ABG O2 Content ABG Base Excess A-a Gradient Oxyhemoglobin Total Hemoglobin O2 Delivery Device O2 Liters/Min FiO2 Sodium Potassium Chloride Carbon Dioxide Anion Gap BUN Creatinine Estim Creat Clear Calc Estimated GFR Glucose POC Capillary Glucose 60 L 90 34 L* Calcium Phosphorus Magnesium Total Bilirubin Lactate Dehydrogenase C-Reactive Protein NT-Pro-B Natriuret Pep Total Protein Albumin Triglycerides Cholesterol Amylase Rheumatoid Factor 08/23/24 08/23/24 08/23/24 05:52 06:33 06:38 WBC 9.5 RBC 3.19 L Hgb 8.6 L Hct 27.7 L MCV 86.8 MCH 27.0 MCHC 31.0 L RDW 14.3 Plt Count 193 MPV 10.2 Immature Gran % (Auto) 0.8 H Neut % (Auto) 74.1 H Lymph % (Auto) 12.3 L Wetzel % (Auto) 11.2 H Eos % (Auto) 1.4 Baso % (Auto) 0.2 Lymph # (Auto) 1.16 Wetzel # (Auto) 1.1 H Eos # (Auto) 0.1 Baso # (Auto) 0.0 Abs Immat Gran (auto) 0.08 H Absolute Neuts (auto) 7.0 H Absolute Nucleated RBC 0.000 Nucleated RBC % 0.0 ESR PT INR Puncture Site ABG pH ABG pCO2 ABG pO2 ABG PO2/FiO2 Ratio ABG HCO3 ABG O2 Saturation ABG O2 Content ABG Base Excess A-a Gradient Oxyhemoglobin Total Hemoglobin O2 Delivery Device O2 Liters/Min FiO2 Sodium 132 L Potassium 4.2 Chloride 112 H Carbon Dioxide 17 L Anion Gap 3 L BUN 39 H Creatinine 3.00 H Estim Creat Clear Calc Not Reportable Estimated GFR 16 L Glucose 115 H POC Capillary Glucose 142 H Calcium 7.5 L Phosphorus 4.4 Magnesium 2.0 Total Bilirubin Lactate Dehydrogenase C-Reactive Protein 13.9 H NT-Pro-B Natriuret Pep 6590 H Total Protein Albumin Triglycerides Cholesterol Amylase Rheumatoid Factor < 12.0 08/23/24 08/23/24 08/23/24 07:26 08:27 09:12 WBC RBC Hgb Hct MCV MCH MCHC RDW Plt Count MPV Immature Gran % (Auto) Neut % (Auto) Lymph % (Auto) Wetzel % (Auto) Eos % (Auto) Baso % (Auto) Lymph # (Auto) Wetzel # (Auto) Eos # (Auto) Baso # (Auto) Abs Immat Gran (auto) Absolute Neuts (auto) Absolute Nucleated RBC Nucleated RBC % ESR PT INR Puncture Site Right radial ABG pH 7.418 ABG pCO2 24.5 L ABG pO2 87.2 ABG PO2/FiO2 Ratio 3.11 ABG HCO3 15.5 L ABG O2 Saturation 97.0 ABG O2 Content 12.4 L ABG Base Excess -7.8 A-a Gradient 83.5 Oxyhemoglobin 96.2 Total Hemoglobin 9.1 L O2 Delivery Device Nasal cannula O2 Liters/Min 2.0 FiO2 28 Sodium Potassium Chloride Carbon Dioxide Anion Gap BUN Creatinine Estim Creat Clear Calc Estimated GFR Glucose POC Capillary Glucose 112 H 116 H Calcium Phosphorus Magnesium Total Bilirubin Lactate Dehydrogenase C-Reactive Protein NT-Pro-B Natriuret Pep Total Protein Albumin Triglycerides Cholesterol Amylase Rheumatoid Factor 08/23/24 08/23/24 08/23/24 10:30 12:24 13:30 WBC RBC Hgb Hct MCV MCH MCHC RDW Plt Count MPV Immature Gran % (Auto) Neut % (Auto) Lymph % (Auto) [place] % (Auto) Eos % (Auto) Baso % (Auto) Lymph # (Auto) [place] # (Auto) Eos # (Auto) Baso # (Auto) Abs Immat Gran (auto) Absolute Neuts (auto) Absolute Nucleated RBC Nucleated RBC % ESR > 140 H PT INR Puncture Site ABG pH ABG pCO2 ABG pO2 ABG PO2/FiO2 Ratio ABG HCO3 ABG O2 Saturation ABG O2 Content ABG Base Excess A-a Gradient Oxyhemoglobin Total Hemoglobin O2 Delivery Device O2 Liters/Min FiO2 Sodium Potassium Chloride Carbon Dioxide Anion Gap BUN Creatinine Estim Creat Clear Calc Estimated GFR Glucose POC Capillary Glucose 103 115 H Calcium Phosphorus Magnesium Total Bilirubin Lactate Dehydrogenase C-Reactive Protein NT-Pro-B Natriuret Pep Total Protein Albumin Triglycerides Cholesterol Amylase Rheumatoid Factor 08/23/24 08/23/24 08/23/24 14:22 15:15 16:59 WBC RBC Hgb Hct MCV MCH MCHC RDW Plt Count MPV Immature Gran % (Auto) Neut % (Auto) Lymph % (Auto) [place] % (Auto) Eos % (Auto) Baso % (Auto) Lymph # (Auto) [place] # (Auto) Eos # (Auto) Baso # (Auto) Abs Immat Gran (auto) Absolute Neuts (auto) Absolute Nucleated RBC Nucleated RBC % ESR PT 16.5 H INR 1.3 Puncture Site ABG pH ABG pCO2 ABG pO2 ABG PO2/FiO2 Ratio ABG HCO3 ABG O2 Saturation ABG O2 Content ABG Base Excess A-a Gradient Oxyhemoglobin Total Hemoglobin O2 Delivery Device O2 Liters/Min FiO2 Sodium Potassium Chloride Carbon Dioxide Anion Gap BUN Creatinine Estim Creat Clear Calc Estimated GFR Glucose 95 POC Capillary Glucose 98 93 Calcium Phosphorus Magnesium Total Bilirubin 0.7 Lactate Dehydrogenase 218 C-Reactive Protein NT-Pro-B Natriuret Pep Total Protein 6.0 L Albumin 2.6 L Triglycerides 101 Cholesterol 88 Amylase 71 Rheumatoid Factor Quality VTE Prophylaxis VTE prophylaxis: mechanical ordered
[2024-08-23 18:51] LABS: Basophils Percent Auto 0.2 % (0.2-1.2); Eosinophils Absolute Auto 0.2 K/mm3 (0-0.3); Eosinophils Percent Auto 2.2 % (0-4.4); Hematocrit 25.2 % (37.0-47.0); Hemoglobin 7.8 g/dL (12.0-15.0); Immature Granulocyte Absolute 0.05 K/mm3 (0.00-0.031); Immature Granulocyte Percent A 0.6 % (0-0.5); Lymphocytes Absolute Auto 1.41 K/mm3 (0.9-3.2); Lymphocytes Percent Auto 16.1 % (18.3-44.2); Mean Corpuscular Hemoglobin 27.7 pg (26-34); Mean Corpuscular Volume 89.4 fl (80-100); Mean Platelet Volume 10.6 fl (7.4-10.4); Monocytes Absolute Auto 0.9 K/mm3 (0.1-0.6); Monocytes Percent Auto 10.5 % (2.6-8.5); Neutrophils Absolute Auto 6.2 K/mm3 (1.3-6.7); Neutrophils Percent Auto 70.4 % (45.5-73.1); Platelet Count Result 172 k/mm3 (150-375); Red Blood Count 2.82 M/mm3 (4.2-5.4); Red Cell Distribution Width 14.4 % (11.5-14.5); White Blood Count 8.8 K/mm3 (4.5-10.0)
[2024-08-23 19:10] LABS: Alanine Aminotransferase 14 U/L (6-35); Albumin Level 2.2 g/dL (3.5-5.1); Alkaline Phosphatase 86 U/L (38-126); Anion Gap 4 mmol/L (4-12); Aspartate Amino Transferase 36 U/L (14-36); Bilirubin,Total 0.8 mg/dL (0.2-1.3); Blood Urea Nitrogen 44 mg/dL (7-17); Calcium 7.4 mg/dL (8.4-10.2); Carbon Dioxide 16 mmol/L (22-30); Chloride 111 mmol/L (98-107); Estimated CRCL calculation 20 ml/min; Estimated Glomerular Filt Rate 15; Glucose 87 mg/dL (65-110); Potassium 4.3 mmol/L (3.4-5.0); Sodium 131 mmol/L (137-145)
[2024-08-23 19:37] LABS: Appearance Pleural Fluid Hazy (Clear); Color Pleural Fluid Yellow (Colorless); Pleural fluid source Pleural fluid
[2024-08-23 19:53] LABS: Lymphocytes Pleural Fluid 23 %; Neutrophils Pleural Fluid 65 % (0-25)
[2024-08-23 19:54] LABS: Monocytes Pleural Fluid 12 %
[2024-08-23 19:56] LABS: Iron 24 ug/dL (37-170)
[2024-08-23 20:06] LABS: Percent Iron Saturation 14 % (20-50); TOTAL IRON BINDING CAPACITY 166 ug/dL (261-462)
[2024-08-23 20:08] LABS: Immunoglobulin A 173 mg/dL (70-400); Immunoglobulin G 1005 mg/dL (700-1600); Immunoglobulin M 318 mg/dL (40-230)
[2024-08-23 20:25] LABS: Hepatitis B Surface Antigen Negative (Negative)
[2024-08-23 20:30] LABS: HAV RESULT Negative (Negative); Hepatitis B Core IgM Result Negative (Negative)
[2024-08-23 20:42] LABS: Hepatitis C Virus Antibody Negative (Negative)
[2024-08-23] MEDS: COLCHICINE 0.6 MG TABLET PO (20:53)
[2024-08-23 21:05] LABS: Folic Acid 5.3 ng/mL (2.76->20); Vitamin B12 > 1000.0 pg/mL (239-931)
[2024-08-23 23:37] LABS: Glucose Point of Care 189 mg/dl (65-105)
[2024-08-24] VITALS (18 sets, daily range): BP systolic 103–149; BP diastolic 54–71; PULSE 46–83; RESP 18–22; TEMP 36.3–36.8; O2SAT 94–99
--- NOTE | 2024-08-24 00:37 | PC.NURSE ---
This patient, Arely Ernandez, was received from [[email or web address]] on 08/23/24 at 2353. Patient/family oriented to unit policies and routines
[2024-08-24 01:31] LABS: IFOB Positive Control Positive; Immunochemical Fecal Occult Bl Negative (N)
[2024-08-24 08:06] LABS: Glucose Point of Care 154 mg/dl (65-105)
[2024-08-24 09:17] LABS: Basophils Percent Auto 0.3 % (0.2-1.2); Eosinophils Absolute Auto 0.3 K/mm3 (0-0.3); Eosinophils Percent Auto 4.1 % (0-4.4); Hemoglobin 7.7 g/dL (12.0-15.0); Immature Granulocyte Absolute 0.05 K/mm3 (0.00-0.031); Immature Granulocyte Percent A 0.7 % (0-0.5); Lymphocytes Absolute Auto 0.86 K/mm3 (0.9-3.2); Lymphocytes Percent Auto 11.7 % (18.3-44.2); Mean Corpuscular HGB Conc 32.1 g/dl (32-36); Mean Corpuscular Hemoglobin 27.7 pg (26-34); Mean Corpuscular Volume 86.3 fl (80-100); Mean Platelet Volume 10.7 fl (7.4-10.4); Monocytes Absolute Auto 0.6 K/mm3 (0.1-0.6); Monocytes Percent Auto 7.8 % (2.6-8.5); Neutrophils Absolute Auto 5.5 K/mm3 (1.3-6.7); Neutrophils Percent Auto 75.4 % (45.5-73.1); Platelet Count Result 174 k/mm3 (150-375); Red Blood Count 2.78 M/mm3 (4.2-5.4); Red Cell Distribution Width 14.4 % (11.5-14.5); White Blood Count 7.3 K/mm3 (4.5-10.0)
[2024-08-24 09:28] LABS: Alanine Aminotransferase 17 U/L (6-35); Albumin Level 2.2 g/dL (3.5-5.1); Alkaline Phosphatase 104 U/L (38-126); Anion Gap 7 mmol/L (4-12); Aspartate Amino Transferase 36 U/L (14-36); Bilirubin,Total 0.6 mg/dL (0.2-1.3); Blood Urea Nitrogen 48 mg/dL (7-17); Calcium 7.4 mg/dL (8.4-10.2); Carbon Dioxide 19 mmol/L (22-30); Chloride 106 mmol/L (98-107); Estimated CRCL calculation 19 ml/min; Estimated Glomerular Filt Rate 14; Glucose 228 mg/dL (65-110); Magnesium 1.9 mg/dL (1.6-2.3); Sodium 132 mmol/L (137-145)
--- NOTE | 2024-08-24 09:36 | P.PNIM_ITS ---
Progress Note: A&P Assessment and Plan (1) Gastroenteritis: Code(s): K52.9 - Noninfective gastroenteritis and colitis, unspecified Status: Acute Assessment and Plan: * CT of the chest abdomen pelvis show fluid throughout nondilated small bowel consistent with gastroenteritis * Patient has 3 day history of nausea, vomiting, diarrhea * Bicarb 17 * Bicarb drip initiated * Continue antiemetic * White blood cell count 14.6, ESR 140, CRP 13.9 08/24 * White blood cell count down to 7.3 * Bicarb improved to 19 * Will stop bicarb drip and restart her oral bicarb * Advance diet as tolerated to diabetic consistent diet (2) Leukocytosis: Code(s): D72.829 - Elevated white blood cell count, unspecified Status: Acute Assessment and Plan: * Likely inflammatory response * White blood cell count 14.6--gastroenteritis on CT of the chest abdomen and pelvis * blood cultures pending 08/24 * White blood cell count down to 7.3 * Blood culture showing no growth to date on preliminary read (3) Pericardial effusion: Code(s): I31.39 - Other pericardial effusion (noninflammatory) Status: Acute Assessment and Plan: * CTA of the chest abdomen pelvis showed a moderate size pericardial effusion * Cardiology consulted * Echo obtained and showed normal LV systolic function with an estimated EF of 60-65%, diastolic dysfunction, mild pulmonary hypertension, moderate pericardial effusion with no tamponade. * Patient given Lasix 40 mg IV push * Continue tele monitoring * Will downgrade from IMU to [facility] with tele (4) Pericarditis: Code(s): I31.9 - Disease of pericardium, unspecified Status: Acute Assessment and Plan: * Continue ibuprofen and colchicine per Cardiology recommendation * Cardiology following ESR 140, CRP 13.9 * DULCE and rheumatoid factor pending * Will check immunoglobulins 08/24 * Rheumatoid factor less than 12.0 * And a pending * IgM was high at 318, IgG and IgA were within normal limits * Continue ibuprofen and colchicine per Cardiology recommendation * Cardiology following (5) Atrial fibrillation: Code(s): I48.91 - Unspecified atrial fibrillation Status: Acute Assessment and Plan: * EKG today showed AFib with a rate of 99, QTC 477, marked left axis deviation and right bundle branch block * Currently on metoprolol succinate * Cardiology following * Hold off on anticoagulation at this time due to thoracentesis and worsening anemia (6) Anemia: Code(s): D64.9 - Anemia, unspecified Status: Acute Assessment and Plan: * Hemoglobin 10.8 on admission, down to 8.6 this morning, recheck at 6:46 p.m. was 7.8 * No signs of active bleeding however will hold Lovenox and anticoagulation for AFib/flutter * Check stool occult blood * Continue ferrous sulfate * Will check TSH, iron, ferritin, vitamin B12, folic acid 08/24 * Iron level 24, TIBC 166, ferritin 186, vitamin B12 greater than a 1000, folate 5.3, TSH 3.050 * Continue ferrous sulfate * Will given iron infusion today * Occult blood negative * Continue to trend (7) Acute kidney injury: Code(s): N17.9 - Acute kidney failure, unspecified Status: Inactive Assessment and Plan: * Acute on chronic kidney disease * Creatinine 3.0 * Baseline creatinine around 2.6 * Owens catheter placed due to urinary retention of greater than 900 mL * UA was negative for bacteria, leukocytes, white blood cells, or nitrates * Continue to trend 08/24 * Creatinine 3.30, EGFR 14 * Will continue bicarb drip for today considering bicarb level is still low at 19, however improved from yesterday * Avoid nephrotoxic medication as much as possible * Avoid testing with IV contrast (8) Pleural effusion: Code(s): J90 - Pleural effusion, not elsewhere classified Status: Acute Assessment and Plan: * CT of the chest abdomen and pelvis shows small bilateral pleural effusions * Thoracentesis today only yield 1 mL of fluid before clotting * Pleural fluid sent for labs 08/24 * Pleural fluid showing neutrophils to be high at 65% otherwise normal (9) Diabetes mellitus: Qualifiers: Diabetes mellitus complication detail: with diabetic retinopathy Diabetes mellitus complication status: with ophthalmic complications Diabetes mellitus halfway insulin use: without halfway use Diabetes mellitus macular edema: without macular edema Diabetes mellitus type: type 2 Diabetic retinopathy severity: with unspecified retinopathy severity Laterality: right Qualified Code(s): E11.319 - Type 2 diabetes mellitus with unspecified diabetic retinopathy without macular edema Code(s): E11.9 - Type 2 diabetes mellitus without complications Status: Chronic Assessment and Plan: * Blood sugars ranging 93-103 * Hgb A1C 12.5 * Accu checks q.6 hour * Low-dose SSI ordered * hypoglycemic protocol in place * Diabetic diet ordered--however poor p.o. intake currently on bicarb with D5W 08/24 * Blood sugars stable today (10) Hypertension: Code(s): I10 - Essential (primary) hypertension Status: Chronic Assessment and Plan: * Blood pressure ranging 103/54 to 122/59 * Will hold amlodipine and hydralazine 08/24 * Will continue to hold for today Time Spent With Patient Time with patient: 25 - 35 minutes Subjective Date/time seen: 08/24/24 09:36 Interval history: Interval history: This is a 63-year-old female who presented to the hospital on 08/22/2024 with complaints of nausea, vomiting, diarrhea x3 days. She is also experiencing some chest pain. Workup in the hospital included a chest x-ray which showed opacities in the bilateral lower lung zone. Chest/abdomen/pelvis CT showed small bilateral pleural effusion with likely chronic atelectasis/scarring in the bilateral lower lobes, moderate size pericardial effusion, fluid throughout non dilated small bowel consistent with gastroenteritis, sigmoid diverticulosis. Repeat chest x-ray showing mild diffuse pulmonary edema and stable cardiomegaly. Initial labs shown a white blood cell count of 14.6, hemoglobin 10.8, pH 7.367, sodium 130, bicarb 19, creatinine 3.10, EGFR 15, lactic acid was 1.5, troponin negative x2, lipase was 86. UA was obtained and showed 3+ urine protein, 2+ urine glucose, 1+ urine blood, 21-50 urine RBC. Respiratory panel was negative. C reactive protein 13.9, proBNP 6590, ESR greater than 140. DULCE and rheumatoid factor pending. Cardiology consulted for pericardial effusion. Stat echo was obtained which showed normal LV systolic function with an estimated EF of 60- 65%, abnormal diastolic function, mild pulmonary hypertension, moderate pericardial effusion without evidence of tamponade. Patient was moved to IMU status this morning due to low blood glucose of 34. They placed her on Q2h Accu-Cheks and a D10 drip. D10 was discontinued and a transition to bicarb with D5W. Blood glucose stable. Owens catheter was placed due to urinary retention of greater than 900 mL urine in bladder on bladder scan. She also underwent a thoracentesis however only 1 mL of pleural fluid was removed and sent for labs. EKG showing atrial fibrillation with marked left axis deviation, right bundle branch block with a rate of 99, QTC 477. At the time of my assessment it appears that she is in a flutter with 2 :1 ratio. This appears to be new onset. Subjective: Patient states she is feeling much better today. She denies any new complaints today. Labs reviewed. Review of Systems Review of Systems: 12 systems were reviewed and are negativ e except for as per HPI. Exam Narrative: General: In no acute distress, well nourished Cardiac: Normal S1 and S2. NSR on monitor, No murmur, gallops or friction rubs, peripheral pulses intact. Respiratory: Lung sounds clear, no adventitious lung sounds, currently on room air Gastrointestinal: soft, non-distended, non-tender, normoactive bowel sounds. : Owens catheter in place draining clear sandra urine Neuro: Alert and oriented x4 Objective Data Vital Signs Vital Signs: Vital Signs - 24 hr 08/23/24 10:00 08/23/24 10:38 08/23/24 10:42 Temperature Pulse Rate 101 H 101 H 101 H Respiratory Rate 34 H Blood Pressure 169/83 H Pulse Oximetry 99 Oxygen Delivery Oxygen Flow Rate Fraction of Inspired Oxygen 08/23/24 12:00 08/23/24 12:00 08/23/24 13:31 Temperature 99.7 F H Pulse Rate 116 H 101 H Respiratory Rate 32 H 44 H Blood Pressure 172/107 H Pulse Oximetry 99 99 Oxygen Delivery Nasal Cannula Oxygen Flow Rate 2 Fraction of Inspired Oxygen 08/23/24 14:00 08/23/24 14:15 08/23/24 16:00 Temperature 99.3 F Pulse Rate 106 H 76 Respiratory Rate 18 Blood Pressure 120/16 L 93/55 L Pulse Oximetry 100 Oxygen Delivery Oxygen Flow Rate Fraction of Inspired Oxygen 08/23/24 16:00 08/23/24 16:00 08/23/24 18:00 Temperature Pulse Rate 79 77 Respiratory Rate 30 H Blood Pressure Pulse Oximetry 96 Oxygen Delivery Nasal Cannula Oxygen Flow Rate 2 Fraction of Inspired Oxygen 08/23/24 18:00 08/23/24 20:00 08/23/24 20:00 Temperature Pulse Rate 77 77 Respiratory Rate 30 H Blood Pressure 103/56 L Pulse Oximetry 96 Oxygen Delivery Nasal Cannula Oxygen Flow Rate 2 Fraction of Inspired Oxygen 08/23/24 20:00 08/23/24 22:00 08/23/24 23:50 Temperature 98.4 F Pulse Rate 78 78 74 Respiratory Rate 28 H Blood Pressure 105/69 Pulse Oximetry 99 Oxygen Delivery Oxygen Flow Rate Fraction of Inspired Oxygen 08/24/24 00:00 08/24/24 00:34 08/24/24 02:00 Temperature 97.4 F L Pulse Rate 76 77 Respiratory Rate 20 Blood Pressure 103/54 L Pulse Oximetry 95 96 Oxygen Delivery Nasal Cannula Oxygen Flow Rate 2 Fraction of Inspired Oxygen 08/24/24 04:00 08/24/24 04:00 08/24/24 04:28 Temperature 97.6 F Pulse Rate 76 77 Respiratory Rate 20 Blood Pressure 116/58 L Pulse Oximetry 94 99 Oxygen Delivery Nasal Cannula Oxygen Flow Rate 2 Fraction of Inspired Oxygen 08/24/24 06:00 08/24/24 07:28 Temperature 98.2 F Pulse Rate 77 77 Respiratory Rate 22 H Blood Pressure 115/55 L Pulse Oximetry 98 Oxygen Delivery Oxygen Flow Rate Fraction of Inspired Oxygen Intake/Output Intake/Output: Intake & Output 08/21/24 08/22/24 08/23/24 08/24/24 23:59 23:59 23:59 23:59 Intake Total 3000 1917.7 Output Total 150 1101 300 Balance 2850 816.7 -300 Meds/Results Medications: Active Medications Generic Name Dose Route Start Last Admin Trade Name Freq PRN Reason Stop Dose Admin Acetaminophen 650 mg 08/22/24 17:22 Acetaminophen 325 Mg Tablet PO Q4H PRN Mild Pain (1-3) or Fever Amlodipine Besylate 5 mg 08/23/24 09:00 08/23/24 09:00 Amlodipine Besylate 5 Mg Tablet PO 5 mg QAM NAHOMI Administration Artificial Tears 1 drop 08/22/24 23:00 08/23/24 18:00 Artificial Tears Ophth Soln 15 Ml Bottle RIGHT EYE 1 drop BID NAHOMI Administration Brimonidine Tartrate 1 drop 08/22/24 23:00 08/23/24 17:00 Brimonidine Tartrate 0.2% Op Soln 5 Ml Btl EACH EYE 1 drop BID NAHOMI Administration Colchicine 0.6 mg 08/23/24 21:00 08/23/24 20:53 Colchicine 0.6 Mg Tablet PO 0.6 mg Q12HR NAHOMI Administration Dextrose 12.5 gm 08/22/24 22:55 08/23/24 05:35 Dextrose 50% 25 Gm/50 Ml Syringe IV PUSH 12.5 gm PRN PRN Administration Hypoglycemia Protocol Dorzolamide HCl 1 drop 08/22/24 23:00 08/23/24 17:00 Dorzolamide Hcl 2% Ophth Drops RIGHT EYE 1 drop BID NAHOMI Administration Enoxaparin Sodium 30 mg 08/23/24 09:00 08/23/24 11:05 Enoxaparin 30 Mg/0.3 Ml Syringe SUB-Q 30 mg DAILY NAHOMI Administration Ferrous Sulfate 325 mg 08/23/24 09:00 08/23/24 10:40 Ferrous Sulfate [address] PO 325 mg QAM NAHOMI Administration Glucagon 1 mg 08/22/24 22:55 Glucagon For Inj 1 Mg Vial IM PRN PRN Hypoglycemia Protocol Glucose 15 gm 08/22/24 22:55 Glucose Oral Gel 15 Gm Of Glucse In 37.5 Gm Tube PO PRN PRN Hypoglycemia Protocol Hydralazine HCl 50 mg 08/22/24 23:00 08/23/24 17:00 Hydralazine Hcl 50 Mg Tablet PO Not Given TID NAHOMI Dextrose 1,000 mls @ 100 mls/hr 08/22/24 22:55 08/23/24 06:10 Dextrose 5% 1,000 Ml IVPB 0 mls/hr PRN PRN Infusion Hypoglycemia Protocol Sodium Bicarbonate 150 meq/ 1,100 mls @ 50 mls/hr 08/23/24 11:30 08/23/24 12:00 Dextrose IV CONT 50 mls/hr .Q22H NAHOMI Administration Iron Sucrose 400 mg/ Sodium 270 mls @ 108 mls/hr 08/24/24 09:35 Chloride IVPB 08/24/24 12:04 ONCE ONE Ibuprofen 600 mg 08/23/24 13:00 08/23/24 18:35 Ibuprofen 600 Mg Tablet PO 600 mg TID NAHOMI Administration Insulin Aspart 2 - 5 units 08/24/24 00:00 08/24/24 07:42 Insulin Aspart (*Bkc) 100 Units/Ml SUB-Q Not Given Q6HR NAHOMI Protocol Metoprolol Succinate 100 mg 08/23/24 09:00 08/23/24 10:38 Metoprolol Succinate Ext Rel 100 Mg Tabcr PO 100 mg QAM NAHOMI Administration Ondansetron HCl 4 mg 08/22/24 15:38 Ondansetron Inj 4 Mg/2 Ml Vial IV PUSH Q4H PRN Nausea Perflutren Lipid Microsphere 0 ml 08/23/24 09:01 Perflutren Lipid Microspheres 1.5 Ml Vial Diluted To 10 Ml Total Volume IV PUSH 08/26/24 09:01 ONCE PRN adequate visualization Protocol Rosuvastatin Calcium 5 mg 08/23/24 09:00 08/23/24 09:00 Rosuvastatin 5 Mg Tablet PO 5 mg QAM NAHOMI Administration Sodium Bicarbonate 650 mg 08/23/24 09:00 08/23/24 10:39 Sodium Bicarbonate Tab 650 Mg Tablet PO 650 mg TID NAHOMI Administration Timolol Maleate 1 drop 08/22/24 23:00 08/23/24 17:00 Timolol Maleate 0.5% Op Soln 5 Ml Bottle EACH EYE 1 drop BID NAHOMI Administration Radiology Results: ITS Impressions Chest/Abdomen/Pelvis CT 08/22/24 11:44 IMPRESSION: 1. Small bilateral pleural effusions with likely chronic atelectasis/scarring in the bilateral lower lobes. 2. Moderate-sized pericardial effusion. 3. Fluid throughout nondilated small bowel. Correlate clinically for gastroenteritis. 4. Sigmoid diverticulosis. Chest X-Ray 08/23/24 07:57 Impression: Left lower lobe pulmonary edema/atelectasis versus pneumonia. Correlate clinically. Minimal left pleural effusion. Discoid right basilar atelectasis or scarring. Thoracentesis Ultrasound 08/23/24 17:25 IMPRESSION: 1. Successful ultrasound-guided thoracentesis yielding 1 mL of yellow fluid. Note that the pleural effusion is loculated, and more fluid could not be obtained despite positioning the needle at multiple locations within the pleural effusion. Labs Labs: Laboratory Results - last 24 hr 08/23/24 08/23/24 08/23/24 06:33 10:30 12:24 WBC RBC Hgb Hct MCV MCH MCHC RDW Plt Count MPV Immature Gran % (Auto) Neut % (Auto) Lymph % (Auto) Mcmullen % (Auto) Eos % (Auto) Baso % (Auto) Lymph # (Auto) Mcmullen # (Auto) Eos # (Auto) Baso # (Auto) Abs Immat Gran (auto) Absolute Neuts (auto) Absolute Nucleated RBC Nucleated RBC % ESR > 140 H PT INR Sodium Potassium Chloride Carbon Dioxide Anion Gap BUN Creatinine Estim Creat Clear Calc Estimated GFR Glucose POC Capillary Glucose 103 Calcium Magnesium Iron TIBC % Saturation Ferritin Total Bilirubin AST ALT Alkaline Phosphatase Lactate Dehydrogenase C-Reactive Protein 13.9 H Total Protein Albumin Triglycerides Cholesterol Amylase Vitamin B12 Folate TSH (Reflex) Pleural Fluid Source Pleural Color Pleural Appearance Pleural RBC Pleural Nuc Cells Pleural Neutrophils Pleural Lymphocytes Pleural Monocytes Stl Occult Blood (IFOB) IgG IgA IgM Rheumatoid Factor < 12.0 Hepatitis A IgM Ab Hep Bs Antigen Hep B Core IgM Ab Hepatitis C Ab Screen 08/23/24 08/23/24 08/23/24 13:30 14:22 15:15 WBC RBC Hgb Hct MCV MCH MCHC RDW Plt Count MPV Immature Gran % (Auto) Neut % (Auto) Lymph % (Auto) Mcmullen % (Auto) Eos % (Auto) Baso % (Auto) Lymph # (Auto) Mcmullen # (Auto) Eos # (Auto) Baso # (Auto) Abs Immat Gran (auto) Absolute Neuts (auto) Absolute Nucleated RBC Nucleated RBC % ESR PT 16.5 H INR 1.3 Sodium Potassium Chloride Carbon Dioxide Anion Gap BUN Creatinine Estim Creat Clear Calc Estimated GFR Glucose 95 POC Capillary Glucose 115 H 98 Calcium Magnesium Iron TIBC % Saturation Ferritin Total Bilirubin 0.7 AST ALT Alkaline Phosphatase Lactate Dehydrogenase 218 C-Reactive Protein Total Protein 6.0 L Albumin 2.6 L Triglycerides 101 Cholesterol 88 Amylase 71 Vitamin B12 Folate TSH (Reflex) Pleural Fluid Source Pleural Color Pleural Appearance Pleural RBC Pleural Nuc Cells Pleural Neutrophils Pleural Lymphocytes Pleural Monocytes Stl Occult Blood (IFOB) IgG IgA IgM Rheumatoid Factor Hepatitis A IgM Ab Hep Bs Antigen Hep B Core IgM Ab Hepatitis C Ab Screen 08/23/24 08/23/24 08/23/24 16:59 17:00 18:46 WBC 8.8 RBC 2.82 L Hgb 7.8 L Hct 25.2 L MCV 89.4 MCH 27.7 MCHC 31.0 L RDW 14.4 Plt Count 172 MPV 10.6 H Immature Gran % (Auto) 0.6 H Neut % (Auto) 70.4 Lymph % (Auto) 16.1 L Mcmullen % (Auto) 10.5 H Eos % (Auto) 2.2 Baso % (Auto) 0.2 Lymph # (Auto) 1.41 Mcmullen # (Auto) 0.9 H Eos # (Auto) 0.2 Baso # (Auto) 0.0 Abs Immat Gran (auto) 0.05 H Absolute Neuts (auto) 6.2 Absolute Nucleated RBC 0.000 Nucleated RBC % 0.0 ESR PT INR Sodium 131 L Potassium 4.3 Chloride 111 H Carbon Dioxide 16 L Anion Gap 4 BUN 44 H Creatinine 3.10 H Estim Creat Clear Calc 20 Estimated GFR 15 L Glucose 87 POC Capillary Glucose 93 Calcium 7.4 L Magnesium 2.0 Iron 24 L TIBC 166 L % Saturation 14 L Ferritin 186.00 Total Bilirubin 0.8 AST 36 ALT 14 Alkaline Phosphatase 86 Lactate Dehydrogenase C-Reactive Protein Total Protein 5.0 L Albumin 2.2 L Triglycerides Cholesterol Amylase Vitamin B12 > 1000.0 H Folate 5.3 TSH (Reflex) 3.050 Pleural Fluid Source Pleural fluid Pleural Color Yellow Pleural Appearance Hazy Pleural RBC TNP Pleural Nuc Cells TNP Pleural Neutrophils 65 H Pleural Lymphocytes 23 Pleural Monocytes 12 Stl Occult Blood (IFOB) IgG 1005 IgA 173 IgM 318 H Rheumatoid Factor Hepatitis A IgM Ab Negative Hep Bs Antigen Negative Hep B Core IgM Ab Negative Hepatitis C Ab Screen Negative 08/23/24 08/23/24 08/24/24 18:49 23:33 00:29 WBC RBC Hgb Hct MCV MCH MCHC RDW Plt Count MPV Immature Gran % (Auto) Neut % (Auto) Lymph % (Auto) Mcmullen % (Auto) Eos % (Auto) Baso % (Auto) Lymph # (Auto) Mcmullen # (Auto) Eos # (Auto) Baso # (Auto) Abs Immat Gran (auto) Absolute Neuts (auto) Absolute Nucleated RBC Nucleated RBC % ESR PT INR Sodium Potassium Chloride Carbon Dioxide Anion Gap BUN Creatinine Estim Creat Clear Calc Estimated GFR Glucose POC Capillary Glucose 189 H Calcium Magnesium Cancelled Iron TIBC % Saturation Ferritin Total Bilirubin AST ALT Alkaline Phosphatase Lactate Dehydrogenase C-Reactive Protein Total Protein Albumin Triglycerides Cholesterol Amylase Vitamin B12 Folate TSH (Reflex) Pleural Fluid Source Pleural Color Pleural Appearance Pleural RBC Pleural Nuc Cells Pleural Neutrophils Pleural Lymphocytes Pleural Monocytes Stl Occult Blood (IFOB) Negative IgG IgA IgM Rheumatoid Factor Hepatitis A IgM Ab Hep Bs Antigen Hep B Core IgM Ab Hepatitis C Ab Screen 08/24/24 08/24/24 08/24/24 07:13 09:08 09:09 WBC 7.3 RBC 2.78 L Hgb 7.7 L Hct 24.0 L MCV 86.3 MCH 27.7 MCHC 32.1 RDW 14.4 Plt Count 174 MPV 10.7 H Immature Gran % (Auto) 0.7 H Neut % (Auto) 75.4 H Lymph % (Auto) 11.7 L Mcmullen % (Auto) 7.8 Eos % (Auto) 4.1 Baso % (Auto) 0.3 Lymph # (Auto) 0.86 L Mcmullen # (Auto) 0.6 Eos # (Auto) 0.3 Baso # (Auto) 0.0 Abs Immat Gran (auto) 0.05 H Absolute Neuts (auto) 5.5 Absolute Nucleated RBC 0.000 Nucleated RBC % 0.0 ESR PT INR Sodium 132 L Potassium 4.0 Chloride 106 Carbon Dioxide 19 L Anion Gap 7 BUN 48 H Creatinine 3.30 H Estim Creat Clear Calc 19 Estimated GFR 14 L Glucose 228 H POC Capillary Glucose 154 H Calcium 7.4 L Magnesium 1.9 Iron TIBC % Saturation Ferritin Total Bilirubin 0.6 AST 36 ALT 17 Alkaline Phosphatase 104 Lactate Dehydrogenase C-Reactive Protein Total Protein 6.0 L Albumin 2.2 L Triglycerides Cholesterol Amylase Vitamin B12 Folate TSH (Reflex) Pleural Fluid Source Pleural Color Pleural Appearance Pleural RBC Pleural Nuc Cells Pleural Neutrophils Pleural Lymphocytes Pleural Monocytes Stl Occult Blood (IFOB) IgG IgA IgM Rheumatoid Factor Hepatitis A IgM Ab Hep Bs Antigen Hep B Core IgM Ab Hepatitis C Ab Screen Quality VTE Prophylaxis VTE prophylaxis: mechanical ordered
[2024-08-24] MEDS: METOPROLOL SUCCINATE EXT REL 100 MG TABCR PO (10:13)
[2024-08-24] MEDS: FERROUS SULFATE 325 MG TABLET DR PO (10:13)
[2024-08-24] MEDS: IBUPROFEN 600 MG TABLET PO ×3 (10:13→17:01)
[2024-08-24] MEDS: ROSUVASTATIN 5 MG TABLET PO (10:14)
[2024-08-24] MEDS: TIMOLOL MALEATE 0.5% OP SOLN 5 ML BOTTLE 1 DROP EACH EYE ×2 (10:14→17:05)
[2024-08-24] MEDS: ARTIFICIAL TEARS OPHTH SOLN 15 ML BOTTLE 1 DROP RIGHT EYE ×2 (10:14→17:07)
[2024-08-24] MEDS: COLCHICINE 0.6 MG TABLET PO ×2 (10:14→21:29)
[2024-08-24] MEDS: DORZOLAMIDE HCL 2% OPHTH DROPS 1 DROP RIGHT EYE ×2 (10:14→17:05)
[2024-08-24] MEDS: BRIMONIDINE TARTRATE 0.2% OP SOLN 5 ML BTL 1 DROP EACH EYE ×2 (10:14→17:05)
[2024-08-24] MEDS: IRON SUCROSE COMPLEX 400 MG in SODIUM CHLORIDE 0.9% IV 250 ML 108 MG IVPB (10:17)
[2024-08-24 12:13] LABS: Glucose Point of Care 272 mg/dl (65-105)
[2024-08-24] MEDS: INSULIN ASPART (*BKC) 100 UNITS/ML SUB-Q (12:56)
[2024-08-24] MEDS: SODIUM BICARBONATE 8.4% 150 MEQ in DEXTROSE 5% 1,000 ML 950 ML 50 MEQ IV CONT (13:06)
[2024-08-24 13:52] LABS: Erythrocyte Sedimentation Rate > 140 mm/hr (0-20)
[2024-08-24] MEDS: SODIUM BICARBONATE TAB 650 MG TABLET PO (17:01)
[2024-08-24 18:43] LABS: Glucose Point of Care 85 mg/dl (65-105)
[2024-08-24 20:45] LABS: Glucose Point of Care 127 mg/dl (65-105)
--- NOTE | 2024-08-24 22:44 | PC.NURSE ---
This patient, Arely Ernandez, was transferred to [ [id number]] on 08/24/24 at 2244. Personal belongings sent with patient. Report given to [Kalie DOUGLAS ]. Appropriate documentation sent with patient. , Jonatan, made aware of patient's transfer status and verbalized understading.
--- NOTE | 2024-08-24 23:07 | PC.NURSE ---
This patient, Arely Ernandez, was received from [ [id number]] on 08/24/24 at 2307. Patient/family oriented to unit policies and routines
[2024-08-25] VITALS (10 sets, daily range): BP systolic 138–177; BP diastolic 58–77; PULSE 72–85; RESP 14–16; TEMP 36.5–36.7; O2SAT 94–97
[2024-08-25 06:00] LABS: Basophils Percent Auto 0.6 % (0.2-1.2); Eosinophils Absolute Auto 0.3 K/mm3 (0-0.3); Eosinophils Percent Auto 5.3 % (0-4.4); Hematocrit 25.2 % (37.0-47.0); Hemoglobin 7.9 g/dL (12.0-15.0); Immature Granulocyte Absolute 0.11 K/mm3 (0.00-0.031); Immature Granulocyte Percent A 1.7 % (0-0.5); Lymphocytes Absolute Auto 1.23 K/mm3 (0.9-3.2); Lymphocytes Percent Auto 19.2 % (18.3-44.2); Mean Corpuscular HGB Conc 31.3 g/dl (32-36); Mean Corpuscular Hemoglobin 26.7 pg (26-34); Mean Corpuscular Volume 85.1 fl (80-100); Mean Platelet Volume 10.6 fl (7.4-10.4); Monocytes Absolute Auto 0.6 K/mm3 (0.1-0.6); Monocytes Percent Auto 8.9 % (2.6-8.5); Neutrophils Absolute Auto 4.1 K/mm3 (1.3-6.7); Neutrophils Percent Auto 64.3 % (45.5-73.1); Platelet Count Result 218 k/mm3 (150-375); Red Blood Count 2.96 M/mm3 (4.2-5.4); Red Cell Distribution Width 14.2 % (11.5-14.5); White Blood Count 6.4 K/mm3 (4.5-10.0)
[2024-08-25 06:19] LABS: Alanine Aminotransferase 26 U/L (6-35); Albumin Level 2.5 g/dL (3.5-5.1); Alkaline Phosphatase 136 U/L (38-126); Anion Gap 4 mmol/L (4-12); Aspartate Amino Transferase 60 U/L (14-36); Bilirubin,Total 0.4 mg/dL (0.2-1.3); Blood Urea Nitrogen 49 mg/dL (7-17); Calcium 7.9 mg/dL (8.4-10.2); Carbon Dioxide 22 mmol/L (22-30); Chloride 108 mmol/L (98-107); Estimated CRCL calculation 19 ml/min; Estimated Glomerular Filt Rate 14; Glucose 47 mg/dL (65-110); Sodium 134 mmol/L (137-145)
[2024-08-25 06:27] LABS: CRP 12.8 mg/dL (<1.0)
[2024-08-25 06:28] LABS: Erythrocyte Sedimentation Rate > 140 mm/hr (0-20)
[2024-08-25 06:58] LABS: Glucose Point of Care 59 mg/dl (65-105)
[2024-08-25 06:58] LABS: Glucose Point of Care 69 mg/dl (65-105)
[2024-08-25 07:36] LABS: Glucose Point of Care 94 mg/dl (65-105)
[2024-08-25 08:12] LABS: Glucose Point of Care 113 mg/dl (65-105)
[2024-08-25] MEDS: COLCHICINE 0.6 MG TABLET PO ×2 (08:39→20:35)
[2024-08-25] MEDS: ROSUVASTATIN 5 MG TABLET PO (08:39)
[2024-08-25] MEDS: FERROUS SULFATE 325 MG TABLET DR PO (08:39)
[2024-08-25] MEDS: IBUPROFEN 600 MG TABLET PO ×3 (08:39→17:25)
[2024-08-25] MEDS: SODIUM BICARBONATE TAB 650 MG TABLET PO ×3 (08:39→17:25)
[2024-08-25] MEDS: METOPROLOL SUCCINATE EXT REL 100 MG TABCR PO (08:39)
[2024-08-25] MEDS: TIMOLOL MALEATE 0.5% OP SOLN 5 ML BOTTLE 1 DROP EACH EYE ×2 (08:40→17:27)
[2024-08-25] MEDS: DORZOLAMIDE HCL 2% OPHTH DROPS 1 DROP RIGHT EYE ×2 (08:40→17:27)
[2024-08-25] MEDS: ARTIFICIAL TEARS OPHTH SOLN 15 ML BOTTLE 1 DROP RIGHT EYE ×2 (08:40→17:25)
[2024-08-25] MEDS: BRIMONIDINE TARTRATE 0.2% OP SOLN 5 ML BTL 1 DROP EACH EYE ×2 (08:40→17:27)
--- NOTE | 2024-08-25 10:40 | P.CONNP_ITS ---
Assessment and Plan Assessment and plan (1) Chronic kidney disease, stage IV (severe): Code(s): N18.4 - Chronic kidney disease, stage 4 (severe) Status: Chronic Assessment and Plan: * baseline creatinine runs ~ 2.5 - 3.2mg/dl per review of outpatient labs done by her primary industrial hygienist * secondary to hypertension, diabetes, vascular disease, and age-related change * noted on last appointment (April 2024) discussions regarding DENTAL PRACTITIONER/dialysis * follows with Dr. Shook & Rosa Delgado NP (2) Pericarditis: Code(s): I31.9 - Disease of pericardium, unspecified Status: Acute Assessment and Plan: * CTA of the chest showed a moderate size pericardial effusion * Echo obtained and showed normal LV systolic function with an estimated EF of 60-65%, diastolic dysfunction, mild pulmonary hypertension, moderate pericardial effusion with no tamponade * high ESR and CRP noted * Cardiology following * on ibuprofen and colchicine * careful with NSAID use given #1 * follow-up on serological testing (3) Gastroenteritis: Code(s): K52.9 - Noninfective gastroenteritis and colitis, unspecified Status: Acute Assessment and Plan: * CT of abdomen/pelvis with fluid throughout nondilated small bowel consistent with gastroenteritis * known history of nausea, vomiting, diarrhea 3 days prior to admission * improvement noted since admission * tolerating diet at this time (4) Anemia: Code(s): D64.9 - Anemia, unspecified Status: Acute Assessment and Plan: * probably due to CKD and acute illness * s/p IV iron and on oral iron supplementation * Hemoccult stool negative * may need MARGARETH as outpatient * follow trend of H/H (5) Hypertension: Code(s): I10 - Essential (primary) hypertension Status: Chronic Assessment and Plan: * follow trend * continue to monitor hemodynamics * slowly resume home BP medications as tolerated (6) Diabetes mellitus: Qualifiers: Diabetes mellitus complication detail: with diabetic retinopathy D iabetes mellitus complication status: with ophthalmic complications Diabetes mellitus intermediate designer insulin use: without half-way use Diabetes mellitus macular edema: without macular edema Diabetes mellitus type: type 2 Diabetic retinopathy severity: with unspecified retinopathy severity Laterality: right Qualified Code(s): E11.319 - Type 2 diabetes mellitus with unspecified diabetic retinopathy without macular edema Code(s): E11.9 - Type 2 diabetes mellitus without complications Status: Chronic Assessment and Plan: * follow accu-cheks * glycemic control per hospitalist I will continue to follow the patient with you while she remains hospitalized and make further recommendations as deemed necessary. Thank you for allowing me to participate in the care of this patient. History of Present Illness Reason for Consult Consult date: 08/25/24 Reason for consult: chronic renal failure Chief Complaint Chief complaint: Gastroenteritis History of Present Illness Narrative: The patient is a 63-year-old female with a past medical history as outlined below who presented to [facility] Emergency Room with complaints of nausea, vomiting, and diarrhea. She states that these symptoms have been going on for the last 3 days if not longer and this has led to increased weakness and fatigue. Furthermore, she reports that she has now developed chest discomfort from all the excessive vomiting and retching. Other associated symptoms included shortness of breath but that seems have been going on for about the last month. She apparently discussed some the symptoms with her primary care physician who recommended outpatient imaging studies included chest x-ray but she has not had these tests done as of yet. She reports no fevers, chills, abdominal pain, dizziness, lightheadedness, or palpitations. Given these clinical symptoms as mentioned and the progressive nature of them, she presented to the ER for further assessment. Workup and evaluation emergency room demonstrated the patient to be hemodynamically stable and afebrile. Routine blood tests were done which were significant for a white blood cell count of 14.6, hemoglobin 10.8, hyponatremia with a sodium 130, BUN of 39, creatinine of 3.1 with no other critical electrolyte abnormalities. Her urinalysis was negative for a urinary tract infection and viral testing for influenza, RSV, and COVID were all negative. Given her symptoms of chest discomfort and shortness of breath along with nausea/vomiting/diarrhea, she had a CT scan of her chest abdomen pelvis which demonstrated small bilateral pleural effusions, moderate moderate-size pericardial effusion and fluid throughout small bowel. Given her laboratory and imaging findings in conjunction with her symptoms, she was subsequently admitted to the hospital for further evaluation therapy Since her hospitalization, she has been seen in consultation by Cardiology regarding her pericardial effusion and has since been diagnosed as having pericarditis based on inflammatory markers and further imaging to date. She subsequently started on colchicine as well as NSAID therapy and a rheumatological workup has been initiated with a great number of the test still pending. Her nausea/vomiting/diarrhea appears to be consistent with a viral gastroenteritis and with supportive therapy these symptoms appear to be improving as well. Renal consultation was requested due to her known history of chronic kidney disease. Since her admission, her creatinine has been running fairly close to her baseline creatinine (2.5 - 3.2mg/dl). She normally follows with Dr. Raji Shook and Sharlene Delgado, LEVELER for management of her chronic kidney disease. It is presumed that her baseline chronic kidney disease is secondary to her hypertension, diabetes, vascular disease, and age-related change. From her last office visit with Sharlene Delgado in April, there apparently was discussion about renal replacement therapy/dialysis given her advanced CKD/depressed GFR. As already mentioned, since her admission here to [facility], her renal function appears to be relatively stable if not slightly higher than baseline with a creatinine running around 3.3 mg/dL at this time. Currently, at the time my evaluation, she appears to be in no apparent distress. Review of Systems 2 Review of Systems: As per HPI. [facility] Past Medical History Medical History Diabetes mellitus Chronic renal disease Anxiety Surgical History Surgical History History of appendectomy Family History Family History (Updated 09/07/24 @ 07:39 by Donald Fitzpatrick RN) Father Hypertension Diabetes mellitus Lymphoma Grandparent Diabetes mellitus Grandparent Diabetes mellitus Mother Pacemaker Social History Social History Smoking status: Former smoker Tobacco type: cigarettes Alcohol intake: former Substance use: former Substance use type: does not use Do You Feel Safe in your Home?: Yes Lack of Transportation: No Lack of Food: Never True Current Housing: I Have Housing Concerned About Future Housing: No Difficulty Paying Gas/Electric Bills: No Difficulty Paying for Meds: No Currently Unemployed: No Education: High School Diploma/GED Difficulty w/ Childcare or Family Care: No Spiritual care concerns: No Meds Home Medications and Allergies Home Medications ?Medication ?Instructions ?Recorded ?Confirmed ?Type amlodipine 5 mg tablet 5 mg PO QAM 08/22/24 09/07/24 History brimonidine 0.2 % eye drops 1 drp EACH EYE BID 08/22/24 09/07/24 History cholecalciferol (vitamin D3) 50 50 mcg PO QAM 08/22/24 09/07/24 History mcg (2,000 unit) tablet (D3 DOTS) dorzolamide 2 % eye drops 1 drp RIGHT EYE BID 08/22/24 09/07/24 History ferrous sulfate 325 mg (65 mg 325 mg PO QAM 08/22/24 09/07/24 History iron) tablet (FeroSul) hydralazine 50 mg tablet 50 mg PO TID 08/22/24 09/07/24 History metoprolol succinate 100 mg 100 mg PO QAM 08/22/24 09/07/24 History tablet,extended release 24 hr polyvinyl alcohol-povidone 0.5 1 drp RIGHT EYE BID 08/22/24 09/07/24 History %-0.6 % eye drops (Artificial Tears (polyvinyl alcohol/povidone)) rosuvastatin 5 mg tablet 5 mg PO QAM 08/22/24 09/07/24 History sodium bicarbonate 650 mg tablet 650 mg PO TID 08/22/24 09/07/24 History timolol maleate 0.5 % eye drops 1 drp EACH EYE BID 08/22/24 09/07/24 History apixaban 2.5 mg tablet (Eliquis) 2.5 mg PO BID #60 tabs 08/26/24 09/07/24 Rx blood-glucose meter,continuous #1 ea 08/26/24 Rx (Dexcom G6 [employer] Maintainer) blood-glucose sensor (Dexcom G6 #3 ea 08/26/24 Rx Sensor device) blood-glucose transmitter (Dexcom #1 ea 08/26/24 Rx G6 Transmitter device) colchicine 0.6 mg tablet (Colcrys) 0.6 mg PO Q12HR #120 tabs 08/26/24 09/07/24 Rx ibuprofen 600 mg tablet 600 mg PO TID #30 tabs 08/26/24 09/07/24 Rx Allergies Allergy/AdvReac Type Severity Reaction Status Date / Time Penicillins Allergy Unknown Unknown Verified 09/07/24 06:30 coconut Allergy Hives Verified 09/07/24 06:30 Vital Signs Vital Signs Temp Pulse Resp BP Pulse Ox O2 Del Method 08/25/24 10:00 85 01/01/25 08:40 78 08/25/24 08:40 Room Air 08/25/24 08:39 81 08/25/24 06:30 97.7 F 77 14 163/77 H 96 08/25/24 04:00 73 08/25/24 00:00 75 08/24/24 20:02 98.2 F 74 18 149/71 H 96 08/24/24 20:00 78 08/24/24 20:00 96 Room Air Exam 2 Narrative: GENERAL APPEARANCE: well developed well nourished female in no acute distress HEENT: normocephalic, atraumatic, normal conjunctiva and sclera, nares patient NECK: no lymphadenopathy, thyromegaly, or JVD MOUTH: normal lips, teeth, and gums CARDIOVASCULAR: RRR, normal S1 and S2, no rub RESPIRATORY: clear anteriorly; decreased at bases ABDOMEN: soft, nontender, nondistended, positive bowel sounds present EXTREMITIES: no evidence of cyanosis, clubbing, trace edema NEUROLOGICAL: alert and oriented x 3; CN II - XII intact bilaterally; no focal deficits noted Results Lab Results 08/26/24 05:24 08/26/24 05:24 Lab results: Most recent lab results ABG pH 7.418 (7.350-7.450) 08/23/24 09:12 ABG pCO2 24.5 mmHg (35.0-45.0) L 08/23/24 09:12 ABG pO2 87.2 mmHg (80.0-100.0) 08/23/24 09:12 ABG HCO3 15.5 mEq/l (22.0-26.0) L 08/23/24 09:12 ABG O2 Saturation 97.0 % (95.0-100.0) 08/23/24 09:12 Calcium 7.9 mg/dL (8.4-10.2) L 08/25/24 05:46 Phosphorus 4.4 mg/dL (2.5-4.5) 08/23/24 06:38 Magnesium 1.9 mg/dL (1.6-2.3) 08/24/24 09:09
[2024-08-25 12:10] LABS: Immature Reticulocyte Fraction 22.9 % (3.0-15.9); Reticulocyte Hemoglobin Conten 24.6 pg (28.2-36.6); Reticulocytes Absolute 0.04 10^6/uL (0.02-0.10)
[2024-08-25 12:15] LABS: Glucose Point of Care 137 mg/dl (65-105)
--- NOTE | 2024-08-25 16:12 | P.PNIM_ITS ---
Progress Note: A&P Assessment and Plan (1) Pericarditis: Code(s): I31.9 - Disease of pericardium, unspecified Status: Acute Assessment and Plan: * Continue ibuprofen and colchicine per Cardiology recommendation * Cardiology following ESR 140, CRP 13.9 * DULCE and rheumatoid factor pending * Will check immunoglobulins 08/24 * Rheumatoid factor less than 12.0 * And a pending * IgM was high at 318, IgG and IgA were within normal limits * Continue ibuprofen and colchicine per Cardiology recommendation * Cardiology following 08/25/2024: * This may be secondary to an autoimmune disease or worsening CKD * DULCE, TSH, usha test for SLE pending (2) Acute kidney injury: Code(s): N17.9 - Acute kidney failure, unspecified Status: Inactive Assessment and Plan: * Acute on chronic kidney disease * Creatinine 3.0 * Baseline creatinine around 2.6 * Owens catheter placed due to urinary retention of greater than 900 mL * UA was negative for bacteria, leukocytes, white blood cells, or nitrates * Continue to trend 08/24 * Creatinine 3.30, EGFR 14 * Will continue bicarb drip for today considering bicarb level is still low at 19, however improved from yesterday * Avoid nephrotoxic medication as much as possible * Avoid testing with IV contrast 08/25/24: * nephrology consulted further recommendations and evaluation * last renal ultrasound showing atrophy of kidneys * have some concerns for underlying autoimmune such as SLE, RA negative, retic count 24.6 * will likely need follow-up with deputy clerk outpatient (3) Anemia: Code(s): D64.9 - Anemia, unspecified Status: Acute Assessment and Plan: * * Hemoglobin 10.8 on admission, down to 8.6 this morning, recheck at 6:46 p.m. was 7.8 * No signs of active bleeding however will hold Lovenox and anticoagulation for AFib/flutter * Check stool occult blood * Continue ferrous sulfate * Will check TSH, iron, ferritin, vitamin B12, folic acid 08/24 * Iron level 24, TIBC 166, ferritin 186, vitamin B12 greater than a 1000, folate 5.3, TSH 3.050 * Continue ferrous sulfate * Will given iron infusion today * Occult blood negative * Continue to trend 08/25/2024: * This may be secondary to an autoimmune disease or worsening CKD * DULCE, TSH, usha test for SLE pending (4) Diabetes mellitus: Qualifiers: Diabetes mellitus complication detail: with diabetic retinopathy Diabetes mellitus complication status: with ophthalmic complications Diabetes mellitus mcc insulin use: without mcc use Diabetes mellitus macular edema: without macular edema Diabetes mellitus type: type 2 Diabetic retinopathy severity: with unspecified retinopathy severity Laterality: right Qualified Code(s): E11.319 - Type 2 diabetes mellitus with unspecified diabetic retinopathy without macular edema Code(s): E11.9 - Type 2 diabetes mellitus without complications Status: Chronic Assessment and Plan: * Blood sugars ranging 93-103 * Hgb A1C 12.5 03/17 * Accu checks q.6 hour * Low-dose SSI ordered * hypoglycemic protocol in place * Diabetic diet ordered--however poor p.o. intake currently on bicarb with D5W 08/24 * Blood sugars stable today 08/25/24: * patient continues to have episodes of hypoglycemia was as low as 47 this a.m. * stopped all sliding scale insulin * A1c pending * patient needs to follow-up with intern outpatient have some concerns for type 1 diabetes * patient will need to discontinue glimepiride with renal failure (5) Pericardial effusion: Code(s): I31.39 - Other pericardial effusion (noninflammatory) Status: Acute Assessment and Plan: * CTA of the chest abdomen pelvis showed a moderate size pericardial effusion * Cardiology consulted * Echo obtained and showed normal LV systolic function with an estimated EF of 60-65%, diastolic dysfunction, mild pulmonary hypertension, moderate pericardial effusion with no tamponade. * Patient given Lasix 40 mg IV push * Continue tele monitoring * Will downgrade from [employer] to [facility] with tele (6) Pleural effusion: Code(s): J90 - Pleural effusion, not elsewhere classified Status: Acute Assessment and Plan: * CT of the chest abdomen and pelvis shows small bilateral pleural effusions * Thoracentesis today only yield 1 mL of fluid before clotting * Pleural fluid sent for labs 08/24 * Pleural fluid showing neutrophils to be high at 65% otherwise normal (7) Atrial fibrillation: Code(s): I48.91 - Unspecified atrial fibrillation Status: Acute Assessment and Plan: * EKG today showed AFib with a rate of 99, QTC 477, marked left axis deviation and right bundle branch block * Currently on metoprolol succinate * Cardiology following * Hold off on anticoagulation at this time due to thoracentesis and worsening anemia 08/25/2024: * back to SR * Will likely hold off on AC due to anemia * (8) Leukocytosis: Code(s): D72.829 - Elevated white blood cell count, unspecified Status: Acute Assessment and Plan: * Likely inflammatory response * White blood cell count 14.6--gastroenteritis on CT of the chest abdomen and pelvis * blood cultures pending 08/24 * White blood cell count down to 7.3 * Blood culture showing no growth to date on preliminary read RESOLVED (9) Gastroenteritis: Code(s): K52.9 - Noninfective gastroenteritis and colitis, unspecified Status: Acute Assessment and Plan: * CT of the chest abdomen pelvis show fluid throughout nondilated small bowel consistent with gastroenteritis * Patient has 3 day history of nausea, vomiting, diarrhea * Bicarb 17 * Bicarb drip initiated * Continue antiemetic * White blood cell count 14.6, ESR 140, CRP 13.9 08/24 * White blood cell count down to 7.3 * Bicarb improved to 19 * Will stop bicarb drip and restart her oral bicarb * Advance diet as tolerated to diabetic consistent diet RESOLVED (10) Hypertension: Code(s): I10 - Essential (primary) hypertension Status: Chronic Assessment and Plan: * Blood pressure ranging 103/54 to 122/59 * Will hold amlodipine and hydralazine 08/24 * Will continue to hold for today Plan Code status: Full code per patient DVT prophylaxis: SCDs Stress ulcer prophylaxis: Protonix 40 daily PT/OT notes: PT/OT pending Disposition: patient continues admission for further evaluation and treatment of pericarditis, pleural effusion, hypoglycemia, and acute on chronic renal failure multiple autoimmune studies pending will continue with ibuprofen and colchicine. PT/ OT ordered for any further discharge recommendations but plan will be to discharge back to home with spouse. patient will likely need follow-up outpatient with a deputy clerk as well as intern. Time Spent With Patient Time with patient: 15 - 25 minutes Subjective Date/time seen: 08/25/24 16:12 Interval history: Patient is a 63-year-old female who came in with nausea vomiting was admitted for gastroenteritis however was found to have pericarditis is receiving current treatment also appears to have some underlying autoimmune disease with worsening renal failure. 08/25/2024: Assumed care patient with no complaints denied any chest pain or shortness of breath reported pain has improved. patient's renal function still unchanged from 3.30 last ultrasound showed some atrophy of the bilateral kidneys will consult Nephrology for further recommendations. patient continues to have episodes of hypoglycemia to was as low as 47 this a.m. Review of Systems Review of Systems: 12 systems were reviewed and are negativ e except for as per HPI. All systems reviewed & are unremarkable except as noted in HPI and below Exam Narrative: General: In no acute distress, well nourished, Blind Cardiac: Normal S1 and S2. NSR on monitor, No murmur, gallops or friction rubs. Respiratory: Lung sounds clear, no adventitious lung sounds, currently on room air Gastrointestinal: soft, non-distended, non-tender, normoactive bowel sounds. : Owens catheter in place draining clear sandra urine Neuro: Alert and oriented x4 Objective Data Vital Signs Vital Signs: Vital Signs - 24 hr 08/24/24 20:00 12/31/24 20:00 08/24/24 20:02 Temperature 98.2 F Pulse Rate 78 74 Respiratory Rate 18 Blood Pressure 149/71 H Pulse Oximetry 96 96 Oxygen Delivery Room Air 08/25/24 00:00 08/25/24 04:00 08/25/24 06:30 Temperature 97.7 F Pulse Rate 75 73 77 Respiratory Rate 14 Blood Pressure 163/77 H Pulse Oximetry 96 Oxygen Delivery 08/25/24 08:39 08/25/24 08:40 08/25/24 08:40 Temperature Pulse Rate 81 78 Respiratory Rate Blood Pressure Pulse Oximetry Oxygen Delivery Room Air 08/25/24 12:00 08/25/24 15:37 Temperature 97.7 F Pulse Rate 85 85 Respiratory Rate 16 Blood Pressure 138/58 L Pulse Oximetry 97 Oxygen Delivery Intake/Output Intake/Output: Intake & Output 08/22/24 08/23/24 08/24/24 08/25/24 23:59 23:59 23:59 23:59 Intake Total 3000 1917.7 2885 870 Output Total 150 2865 233 9354 Balance 2850 816.7 1935 -330 Meds/Results Medications: Active Medications Generic Name Dose Route Start Last Admin Trade Name Freq PRN Reason Stop Dose Admin Acetaminophen 650 mg 08/22/24 17:22 Acetaminophen 325 Mg Tablet PO Q4H PRN Mild Pain (1-3) or Fever Amlodipine Besylate 5 mg 08/23/24 09:00 08/23/24 09:00 Amlodipine Besylate 5 Mg Tablet PO 5 mg QAM NAHOMI Administration Artificial Tears 1 drop 08/22/24 23:00 08/25/24 08:40 Artificial Tears Ophth Soln 15 Ml Bottle RIGHT EYE 1 drop BID NAHOMI Administration Brimonidine Tartrate 1 drop 08/22/24 23:00 08/25/24 08:40 Brimonidine Tartrate 0.2% Op Soln 5 Ml Btl EACH EYE 1 drop BID NAHOMI Administration Colchicine 0.6 mg 08/23/24 21:00 08/25/24 08:39 Colchicine 0.6 Mg Tablet PO 0.6 mg Q12HR NAHOMI Administration Dextrose 12.5 gm 08/22/24 22:55 08/23/24 05:35 Dextrose 50% 25 Gm/50 Ml Syringe IV PUSH 12.5 gm PRN PRN Administration Hypoglycemia Protocol Dorzolamide HCl 1 drop 08/22/24 23:00 08/25/24 08:40 Dorzolamide Hcl 2% Ophth Drops RIGHT EYE 1 drop BID NAHOMI Administration Enoxaparin Sodium 30 mg 08/23/24 09:00 08/23/24 11:05 Enoxaparin 30 Mg/0.3 Ml Syringe SUB-Q 30 mg DAILY NAHOMI Administration Ferrous Sulfate 325 mg 08/23/24 09:00 08/25/24 08:39 Ferrous Sulfate [address] PO 325 mg QAM NAHOMI Administration Glucagon 1 mg 08/22/24 22:55 Glucagon For Inj 1 Mg Vial IM PRN PRN Hypoglycemia Protocol Glucose 15 gm 08/22/24 22:55 Glucose Oral Gel 15 Gm Of Glucse In 37.5 Gm Tube PO PRN PRN Hypoglycemia Protocol Hydralazine HCl 50 mg 08/22/24 23:00 08/23/24 17:00 Hydralazine Hcl 50 Mg Tablet PO Not Given TID NAHOMI Dextrose 1,000 mls @ 100 mls/hr 08/22/24 22:55 08/23/24 06:10 Dextrose 5% 1,000 Ml IVPB 0 mls/hr PRN PRN Infusion Hypoglycemia Protocol Ibuprofen 600 mg 08/23/24 13:00 08/25/24 12:25 Ibuprofen 600 Mg Tablet PO 600 mg TID NAHOMI Administration Insulin Aspart 2 - 5 units 08/24/24 17:00 08/25/24 12:16 Insulin Aspart (*Bkc) 100 Units/Ml SUB-Q Not Given TIDWM NAHOMI Protocol Metoprolol Succinate 100 mg 08/23/24 09:00 08/25/24 08:39 Metoprolol Succinate Ext Rel 100 Mg Tabcr PO 100 mg QAM NAHOMI Administration Ondansetron HCl 4 mg 08/22/24 15:38 Ondansetron Inj 4 Mg/2 Ml Vial IV PUSH Q4H PRN Nausea Perflutren Lipid Microsphere 0 ml 08/23/24 09:01 Perflutren Lipid Microspheres 1.5 Ml Vial Diluted To 10 Ml Total Volume IV PUSH 08/26/24 09:01 ONCE PRN adequate visualization Protocol Rosuvastatin Calcium 5 mg 08/23/24 09:00 08/25/24 08:39 Rosuvastatin 5 Mg Tablet PO 5 mg QAM NAHOMI Administration Sodium Bicarbonate 650 mg 08/23/24 09:00 08/25/24 12:26 Sodium Bicarbonate Tab 650 Mg Tablet PO 650 mg TID NAHOMI Administration Timolol Maleate 1 drop 08/22/24 23:00 08/25/24 08:40 Timolol Maleate 0.5% Op Soln 5 Ml Bottle EACH EYE 1 drop BID NAHOMI Administration Radiology Results: ITS Impressions Chest/Abdomen/Pelvis CT 08/22/24 11:44 IMPRESSION: 1. Small bilateral pleural effusions with likely chronic atelectasis/scarring in the bilateral lower lobes. 2. Moderate-sized pericardial effusion. 3. Fluid throughout nondilated small bowel. Correlate clinically for gastroenteritis. 4. Sigmoid diverticulosis. Chest X-Ray 08/23/24 07:57 Impression: Left lower lobe pulmonary edema/atelectasis versus pneumonia. Correlate cl inically. Minimal left pleural effusion. Discoid right basilar atelectasis or scarring. Thoracentesis Ultrasound 08/23/24 17:25 IMPRESSION: 1. Successful ultrasound-guided thoracentesis yielding 1 mL of yellow fluid. Note that the pleural effusion is loculated, and more fluid could not be obtained despite positioning the needle at multiple locations within the pleural effusion. Labs Labs: Laboratory Results - last 24 hr 08/24/24 08/24/24 08/25/24 17:05 20:11 05:46 WBC 6.4 RBC 2.96 L Hgb 7.9 L Hct 25.2 L MCV 85.1 MCH 26.7 MCHC 31.3 L RDW 14.2 Plt Count 218 MPV 10.6 H Immature Gran % (Auto) 1.7 H Neut % (Auto) 64.3 Lymph % (Auto) 19.2 Donley % (Auto) 8.9 H Eos % (Auto) 5.3 H Baso % (Auto) 0.6 Lymph # (Auto) 1.23 Donley # (Auto) 0.6 Eos # (Auto) 0.3 Baso # (Auto) 0.0 Abs Immat Gran (auto) 0.11 H Absolute Neuts (auto) 4.1 Absolute Nucleated RBC 0.000 Nucleated RBC % 0.0 ESR > 140 H Absolute Retic 0.04 Percent Retic 1.30 Immature Retic Fraction 22.9 H Retic Hgb Content 24.6 L Sodium 134 L Potassium 4.0 Chloride 108 H Carbon Dioxide 22 Anion Gap 4 BUN 49 H Creatinine 3.30 H Estim Creat Clear Calc 19 Estimated GFR 14 L Glucose 47 L* POC Capillary Glucose 85 127 H Calcium 7.9 L Total Bilirubin 0.4 AST 60 H ALT 26 Alkaline Phosphatase 136 H C-Reactive Protein 12.8 H Total Protein 6.0 L Albumin 2.5 L TSH 1.840 MENDOZA, IgG Interpret MENDOZA, Complement Interp 08/25/24 08/25/24 08/25/24 06:33 06:53 07:09 WBC RBC Hgb Hct MCV MCH MCHC RDW Plt Count MPV Immature Gran % (Auto) Neut % (Auto) Lymph % (Auto) Donley % (Auto) Eos % (Auto) Baso % (Auto) Lymph # (Auto) Donley # (Auto) Eos # (Auto) Baso # (Auto) Abs Immat Gran (auto) Absolute Neuts (auto) Absolute Nucleated RBC Nucleated RBC % ESR Absolute Retic Percent Retic Immature Retic Fraction Retic Hgb Content Sodium Potassium Chloride Carbon Dioxide Anion Gap BUN Creatinine Estim Creat Clear Calc Estimated GFR Glucose POC Capillary Glucose 59 L* 69 94 Calcium Total Bilirubin AST ALT Alkaline Phosphatase C-Reactive Protein Total Protein Albumin TSH MENDOZA, IgG Interpret MENDOZA, Complement Interp 08/25/24 08/25/24 08/25/24 08:08 11:59 12:12 WBC RBC Hgb Hct MCV MCH MCHC RDW Plt Count MPV Immature Gran % (Auto) Neut % (Auto) Lymph % (Auto) Donley % (Auto) Eos % (Auto) Baso % (Auto) Lymph # (Auto) Donley # (Auto) Eos # (Auto) Baso # (Auto) Abs Immat Gran (auto) Absolute Neuts (auto) Absolute Nucleated RBC Nucleated RBC % ESR Absolute Retic Percent Retic Immature Retic Fraction Retic Hgb Content Sodium Potassium Chloride Carbon Dioxide Anion Gap BUN Creatinine Estim Creat Clear Calc Estimated GFR Glucose POC Capillary Glucose 113 H 137 H Calcium Total Bilirubin AST ALT Alkaline Phosphatase C-Reactive Protein Total Protein Albumin TSH MENDOZA, IgG Interpret Positive MENDOZA, Complement Interp Negative Quality VTE Prophylaxis VTE prophylaxis: mechanical ordered -Patient's previous records reviewed on admission -ER notes reviewed in detail on admission -discussed all findings and current treatment plan with patient/Family/POA -Consultations reviewed for recommendations -Patient's disposition for safe discharge discussed with patient case coordinator Dictation performed by [employer] direct speech recognition software, therefore typing office worker variants and typographical errors may occur. Hospitalist [facility] Advance Care Plan I have confirmed that the patient's Advanced Care Plan is present, code status is documented, or surrogate decision maker is listed in patient medical record.: Yes Medication Reconciliation I have utilized all available resources to obtain, update and review the patients current medications (includes all prescriptions, OTC, herbals, cannabis, and nutritional supplements).: Yes The patient is not eligible for med reconciliation; the patient is in a emergent medical situation where delaying treatment would jeopardize the patients health.: No
[2024-08-25 16:53] LABS: Glucose Point of Care 148 mg/dl (65-105)
[2024-08-25 20:55] LABS: Glucose Point of Care 175 mg/dl (65-105)
[2024-08-26] VITALS: PULSE 83
[2024-08-26 04:00] VITALS: PULSE 74
[2024-08-26 05:05] VITALS: BP 148/76; PULSE 79; RESP 16; TEMP 36.1; O2SAT 98
[2024-08-26 05:57] LABS: Basophils Percent Auto 0.7 % (0.2-1.2); Eosinophils Absolute Auto 0.2 K/mm3 (0-0.3); Eosinophils Percent Auto 5.2 % (0-4.4); Hematocrit 25.7 % (37.0-47.0); Immature Granulocyte Absolute 0.08 K/mm3 (0.00-0.031); Immature Granulocyte Percent A 1.8 % (0-0.5); Lymphocytes Absolute Auto 1.17 K/mm3 (0.9-3.2); Lymphocytes Percent Auto 26.2 % (18.3-44.2); Mean Corpuscular HGB Conc 31.1 g/dl (32-36); Mean Corpuscular Hemoglobin 27.2 pg (26-34); Mean Corpuscular Volume 87.4 fl (80-100); Mean Platelet Volume 10.4 fl (7.4-10.4); Monocytes Absolute Auto 0.4 K/mm3 (0.1-0.6); Monocytes Percent Auto 8.7 % (2.6-8.5); Neutrophils Absolute Auto 2.6 K/mm3 (1.3-6.7); Neutrophils Percent Auto 57.4 % (45.5-73.1); Platelet Count Result 243 k/mm3 (150-375); Red Blood Count 2.94 M/mm3 (4.2-5.4); Red Cell Distribution Width 14.1 % (11.5-14.5); White Blood Count 4.5 K/mm3 (4.5-10.0)
[2024-08-26 06:09] LABS: Alanine Aminotransferase 23 U/L (6-35); Albumin Level 2.4 g/dL (3.5-5.1); Alkaline Phosphatase 146 U/L (38-126); Anion Gap 4 mmol/L (4-12); Aspartate Amino Transferase 40 U/L (14-36); Bilirubin,Total 0.4 mg/dL (0.2-1.3); Blood Urea Nitrogen 49 mg/dL (7-17); Calcium 7.9 mg/dL (8.4-10.2); Carbon Dioxide 23 mmol/L (22-30); Chloride 111 mmol/L (98-107); Estimated CRCL calculation 19 ml/min; Estimated Glomerular Filt Rate 14; Glucose 100 mg/dL (65-110); Potassium 3.9 mmol/L (3.4-5.0); Sodium 138 mmol/L (137-145)
[2024-08-26 06:27] LABS: Hemoglobin A1C 5.3 % (<5.7)
[2024-08-26 07:25] LABS: Erythrocyte Sedimentation Rate > 140 mm/hr (0-20)
[2024-08-26 08:00] VITALS: PULSE 78
[2024-08-26 08:13] LABS: Glucose Point of Care 91 mg/dl (65-105)
[2024-08-26 09:06] VITALS: PULSE 80
[2024-08-26] MEDS: METOPROLOL SUCCINATE EXT REL 100 MG TABCR PO (09:06)
[2024-08-26] MEDS: IBUPROFEN 600 MG TABLET PO ×2 (09:06→12:46)
[2024-08-26] MEDS: SODIUM BICARBONATE TAB 650 MG TABLET PO ×2 (09:07→12:46)
[2024-08-26] MEDS: ROSUVASTATIN 5 MG TABLET PO (09:07)
[2024-08-26] MEDS: COLCHICINE 0.6 MG TABLET PO (09:07)
[2024-08-26] MEDS: FERROUS SULFATE 325 MG TABLET DR PO (09:07)
[2024-08-26] MEDS: DORZOLAMIDE HCL 2% OPHTH DROPS 1 DROP RIGHT EYE (09:08)
[2024-08-26] MEDS: TIMOLOL MALEATE 0.5% OP SOLN 5 ML BOTTLE 1 DROP EACH EYE (09:08)
[2024-08-26] MEDS: BRIMONIDINE TARTRATE 0.2% OP SOLN 5 ML BTL 1 DROP EACH EYE (09:08)
[2024-08-26] MEDS: ARTIFICIAL TEARS OPHTH SOLN 15 ML BOTTLE 1 DROP RIGHT EYE (09:12)
[2024-08-26 12:00] VITALS: PULSE 84
[2024-08-26 12:18] LABS: Glucose Point of Care 163 mg/dl (65-105)
--- NOTE | 2024-08-26 12:55 | P.PNNP_ITS ---
Progress Note: A&P Assessment and Plan (1) Chronic kidney disease, stage IV (severe): Code(s): N18.4 - Chronic kidney disease, stage 4 (severe) Status: Chronic Assessment and Plan: * baseline creatinine runs ~ 2.5 - 3.2mg/dl per review of outpatient labs done by her primary tank tester * secondary to hypertension, diabetes, vascular disease, and age-related change * noted on last appointment (April 2024) discussions regarding [employer]/dialysis * follows with Dr. Shook & Rosa Delgado NP (2) Pericarditis: Code(s): I31.9 - Disease of pericardium, unspecified Status: Acute Assessment and Plan: * CTA of the chest showed a moderate size pericardial effusion * Echo obtained and showed normal LV systolic function with an estimated EF of 60-65%, diastolic dysfunction, mild pulmonary hypertension, moderate pericardial effusion with no tamponade * high ESR and CRP noted * Cardiology following * on ibuprofen and colchicine * careful with NSAID use given #1 * follow-up on serological testing (3) Gastroenteritis: Code(s): K52.9 - Noninfective gastroenteritis and colitis, unspecified Status: Acute Assessment and Plan: * CT of abdomen/pelvis with fluid throughout nondilated small bowel consistent with gastroenteritis * known history of nausea, vomiting, diarrhea 3 days prior to admission * improvement noted since admission * tolerating diet at this time (4) Anemia: Code(s): D64.9 - Anemia, unspecified Status: Acute Assessment and Plan: * probably due to CKD and acute illness * s/p IV iron and on oral iron supplementation * Hemoccult stool negative * follow trend of H/H (5) Hypertension: Code(s): I10 - Essential (primary) hypertension Status: Chronic Assessment and Plan: * follow trend * continue to monitor hemodynamics * slowly resume home BP medications as tolerated (6) Diabetes mellitus: Qualifiers: Diabetes mellitus complication detail: with diabetic retinopathy Diabetes mellitus complication status: with ophthalmic complications Diabetes mellitus terminal system operator insulin use: without terminal system operator use Diabetes mellitus macular edema: without macular edema Diabetes mellitus type: type 2 Diabetic retinopathy severity: with unspecified retinopathy severity Laterality: right Qualified Code(s): E11.319 - Type 2 diabetes mellitus with unspecified diabetic retinopathy without macular edema Code(s): E11.9 - Type 2 diabetes mellitus without complications Status: Chronic Assessment and Plan: * follow accu-cheks * glycemic control per hospitalist Not opposed to discharge from renal perspective if otherwise medically stable -- she can follow-up with her primary tank tester for ongoing CKD management. Will continue to follow. Subjective Date/time seen: 08/26/24 12:55 Interval history: Follow-up for chronic kidney disease. Appears to be doing reasonably well at the time of my visit; no further vomiting and has been able to tolerate oral intake without any issues or problems; no apparent distress noted at this time; no issues/events overnight or earlier this morning Exam Narrative: General: WD/WN female in NAD Heart: normal S1 and S2; no rub Lungs: clear to auscultation Abdomen: soft, nontender, nondistended, positive bowel sounds Extremities: no cyanosis or clubbing; no edema Skin: warm and dry Objective Data Vital Signs Vital Signs: Vital Signs Temp Pulse Resp BP Pulse Ox O2 Del Method 08/26/24 12:00 84 08/26/24 09:06 80 08/26/24 08:00 78 08/26/24 05:05 97.0 F L 79 16 148/76 H 98 08/26/24 04:00 74 08/26/24 00:00 83 08/25/24 23:23 Room Air 08/25/24 20:00 85 08/25/24 19:59 98.1 F 72 16 177/69 H 94 08/25/24 16:00 84 08/25/24 15:37 97.7 F 85 16 138/58 L 97 Intake/Output Intake/Output: Intake & Output 08/23/24 08/24/24 08/25/24 08/26/24 23:59 23:59 23:59 23:59 Intake Total 1917.7 2885 1210 540 Output Total 1787 909 5129 Balance 816.7 1935 -540 540 Meds/Results Medications: Active Medications Generic Name Dose Route Start Last Admin Trade Name Freq PRN Reason Stop Dose Admin Acetaminophen 650 mg 08/22/24 17:22 Acetaminophen 325 Mg Tablet PO Q4H PRN Mild Pain (1-3) or Fever Amlodipine Besylate 5 mg 08/23/24 09:00 08/23/24 09:00 Amlodipine Besylate 5 Mg Tablet PO 5 mg QAM NAHOMI Administration Apixaban 5 mg 08/26/24 21:00 Apixaban 5 Mg Tablet PO Q12HR NAHOMI Artificial Tears 1 drop 08/22/24 23:00 08/26/24 09:12 Artificial Tears Ophth Soln 15 Ml Bottle RIGHT EYE 1 drop BID NAHOMI Administration Brimonidine Tartrate 1 drop 08/22/24 23:00 08/26/24 09:08 Brimonidine Tartrate 0.2% Op Soln 5 Ml Btl EACH EYE 1 drop BID NAHOMI Administration Colchicine 0.6 mg 08/23/24 21:00 08/26/24 09:07 Colchicine 0.6 Mg Tablet PO 0.6 mg Q12HR NAHOMI Administration Dextrose 12.5 gm 08/22/24 22:55 08/23/24 05:35 Dextrose 50% 25 Gm/50 Ml Syringe IV PUSH 12.5 gm PRN PRN Administration Hypoglycemia Protocol Dorzolamide HCl 1 drop 08/22/24 23:00 08/26/24 09:08 Dorzolamide Hcl 2% Ophth Drops RIGHT EYE 1 drop BID NAHOMI Administration Enoxaparin Sodium 30 mg 08/23/24 09:00 08/23/24 11:05 Enoxaparin 30 Mg/0.3 Ml Syringe SUB-Q 30 mg DAILY NAHOMI Administration Ferrous Sulfate 325 mg 08/23/24 09:00 08/26/24 09:07 Ferrous Sulfate [address] PO 325 mg QAM NAHOMI Administration Glucagon 1 mg 08/22/24 22:55 Glucagon For Inj 1 Mg Vial IM PRN PRN Hypoglycemia Protocol Glucose 15 gm 08/22/24 22:55 Glucose Oral Gel 15 Gm Of Glucse In 37.5 Gm Tube PO PRN PRN Hypoglycemia Protocol Hydralazine HCl 50 mg 08/22/24 23:00 08/23/24 17:00 Hydralazine Hcl 50 Mg Tablet PO Not Given TID NAHOMI Dextrose 1,000 mls @ 100 mls/hr 08/22/24 22:55 08/23/24 06:10 Dextrose 5% 1,000 Ml IVPB 0 mls/hr PRN PRN Infusion Hypoglycemia Protocol Ibuprofen 600 mg 08/23/24 13:00 08/26/24 12:46 Ibuprofen 600 Mg Tablet PO 600 mg TID NAHOMI Administration Metoprolol Succinate 100 mg 08/23/24 09:00 08/26/24 09:06 Metoprolol Succinate Ext Rel 100 Mg Tabcr PO 100 mg QAM NAHOMI Administration Ondansetron HCl 4 mg 08/22/24 15:38 Ondansetron Inj 4 Mg/2 Ml Vial IV PUSH Q4H PRN Nausea Rosuvastatin Calcium 5 mg 08/23/24 09:00 08/26/24 09:07 Rosuvastatin 5 Mg Tablet PO 5 mg QAM NAHOMI Administration Sodium Bicarbonate 650 mg 08/23/24 09:00 08/26/24 12:46 Sodium Bicarbonate Tab 650 Mg Tablet PO 650 mg TID NAHOMI Administration Timolol Maleate 1 drop 08/22/24 23:00 08/26/24 09:08 Timolol Maleate 0.5% Op Soln 5 Ml Bottle EACH EYE 1 drop BID NAHOMI Administration Radiology Results: ITS Impressions Chest/Abdomen/Pelvis CT 08/22/24 11:44 IMPRESSION: 1. Small bilateral pleural effusions with likely chronic atelectasis/scarring in the bilateral lower lobes. 2. Moderate-sized pericardial effusion. 3. Fluid throughout nondilated small bowel. Correlate clinically for gastroenteritis. 4. Sigmoid diverticulosis. Chest X-Ray 08/23/24 07:57 Impression: Left lower lobe pulmonary edema/atelectasis versus pneumonia. Correlate clinically. Minimal left pleural effusion. Discoid right basilar atelectasis or scarring. Thoracentesis Ultrasound 08/23/24 17:25 IMPRESSION: 1. Successful ultrasound-guided thoracentesis yielding 1 mL of yellow fluid. Note that the pleural effusion is loculated, and more fluid could not be obtained despite positioning the needle at multiple locations within the pleural effusion. Labs Labs: Laboratory Tests 08/26/24 05:24 WBC 4.5 Hgb 8.0 L Hct 25.7 L Plt Count 243 Sodium 138 Potassium 3.9 Chloride 111 H Carbon Dioxide 23 BUN 49 H Creatinine 3.30 H Estimated GFR 14 L Glucose 100 Calcium 7.9 L Total Bilirubin 0.4 AST 40 H ALT 23 Alkaline Phosphatase 146 H Total Protein 6.0 L Albumin 2.4 L
--- NOTE | 2024-08-26 13:51 | P.DS_ITS ---
DS: Admitting Diagnosis Discharge Date 08/26/2024 Admitting Diagnosis Pericarditis DS: Discharge Diagnosis Discharge Diagnosis (1) Pericarditis: Code(s): I31.9 - Disease of pericardium, unspecified Status: Acute Assessment and Plan: * continue with colchicine/ ibuprofen * follow-up with cardiology outpatient * follow-up with referral to diet assistant for further autoimmune testing (2) Acute kidney injury: Code(s): N17.9 - Acute kidney failure, unspecified Status: Inactive Assessment and Plan: * last renal ultrasound showing atrophy of kidneys * have some concerns for underlying autoimmune such as SLE, RA negative, retic count 24.6 * will likely need follow-up with diet assistant outpatient (3) Anemia: Code(s): D64.9 - Anemia, unspecified Status: Acute Assessment and Plan: * Iron level 24, TIBC 166, ferritin 186, vitamin B12 greater than a 1000, folate 5.3, TSH 3.050 * Continue ferrous sulfat * This may be secondary to an autoimmune disease or worsening CKD * DULCE, TSH, usha test for SLE pending (4) Diabetes mellitus: Qualifiers: Diabetes mellitus complication detail: with diabetic retinopathy Diabetes mellitus complication status: with ophthalmic complications Diabetes mellitus mcc insulin use: without mcc use Diabetes mellitus macular edema: without macular edema Diabetes mellitus type: type 2 Diabetic retinopathy severity: with unspecified retinopathy severity Laterality: right Qualified Code(s): E11.319 - Type 2 diabetes mellitus with unspecified diabetic retinopathy without macular edema Code(s): E11.9 - Type 2 diabetes mellitus without complications Status: Chronic Assessment and Plan: * patient continues to have episodes of hypoglycemia was as low as 47 this a.m. * stopped all sliding scale insulin * A1c 5.3 * patient needs to follow-up with supervisor cooler service outpatient have some concerns for type 1 diabetes * patient will need to discontinue glimepiride with renal failure * discontinued all patient's diabetic medications * follow-up in 3 months with new provider (5) Pericardial effusion: Code(s): I31.39 - Other pericardial effusion (noninflammatory) Status: Acute (6) Pleural effusion: Code(s): J90 - Pleural effusion, not elsewhere classified Status: Acute Assessment and Plan: * performed thoracentesis * Pleural fluid showing neutrophils to be high at 65% otherwise normal (7) Atrial fibrillation: Code(s): I48.91 - Unspecified atrial fibrillation Status: Acute Assessment and Plan: * paroxysmal AFib holding IAN due to anemia (8) Leukocytosis: Code(s): D72.829 - Elevated white blood cell count, unspecified Status: Acute Assessment and Plan: RESOLVED (9) Gastroenteritis: Code(s): K52.9 - Noninfective gastroenteritis and colitis, unspecified Status: Acute Assessment and Plan: * RESOLVED (10) Hypertension: Code(s): I10 - Essential (primary) hypertension Status: Chronic Assessment and Plan: * Blood pressure ranging 103/54 to 122/59 * Will hold amlodipine and hydralazine 08/24 * Will continue to hold for today Plan Disposition: patient was discharged home with family will need follow-up with primary, diet assistant, nephrologists, and supervisor cooler service family updated and aware. DS: Summary Hospital Course Reason for hospitalization: pericarditis/ enteritis/ hypoglycemia/ acute on chronic renal failure Hospital Course: patient was [id number] female with past medical history of CKD, anxiety and diabetes presents to the hospital with nausea vomiting diarrhea. Patient states that she has had nausea vomiting diarrhea for about the last 3 days and is starting to feel extremely weak. She she states that she now has chest pain from vomiting and retching. Patient also complains of shortness of breath for the last month or 2. She states that her primary care provider has recommended for her to get x-ray and follow-up however she has not done so at this time. Patient denies fevers chills or abdominal pain. Leukocytosis at 14.6, anemia at 10.8 hyponatremia 130, BUN 39, GFR 15, creatinine 3.10, baseline appears to be under 2.6, phosphorus at 4.6. UA negative for acute UTI. Influenza a, B, RSV and COVID negative. CT shows Small bilateral pleural effusions with likely chronic atelectasis/scarring in the bilateral lower lobes, Moderate-sized pericardial effusion and Fluid throughout nondilated small bowel. Correlate clinically for gastroenteritis. Small bilateral pleural effusions with likely chronic atelectasis/scarring in the bilateral lower lobes. Moderate-sized pericardial effusion. during patient's admission the following diagnosis or evaluated and treated (1) Pericarditis: * treated with ibuprofen and colchicine per Cardiology recommendation * Cardiology following ESR 140, CRP 13.9 * DULCE and rheumatoid factor pending * Will check [id number]/31 * Rheumatoid factor less than 12.0 * And a pending * IgM was high at 318, IgG and IgA were within normal limits * Continue ibuprofen and colchicine per Cardiology recommendation * Cardiology following * This may be secondary to an autoimmune disease or worsening CKD * DULCE, TSH, usha test for SLE pending (2) Acute kidney injury: * Acute on chronic kidney disease * Creatinine 3.0 * Baseline creatinine around 2.6 * Owens catheter placed due to urinary retention of greater than 900 mL * UA was negative for bacteria, leukocytes, white blood cells, or nitrates * Continue to trend08/24 * Creatinine 3.30, EGFR 14 * Will continue bicarb drip for today considering bicarb level is still low at 19, however improved from yesterday * Avoid nephrotoxic medication as much as possible * Avoid testing with IV contrast * nephrology consulted further recommendations and evaluation * last renal ultrasound showing atrophy of kidneys * have some concerns for underlying autoimmune such as SLE, RA negative, retic count 24.6 * will likely need follow-up with diet assistant outpatient currently has a household coordinator outpatient okay to discharge from [facility] nephrology (3) Anemia: * Hemoglobin 10.8 on admission, down to 8.6 this morning, recheck at 6:46 p.m. was 7.8 * No signs of active bleeding however will hold Lovenox and anticoagulation for AFib/flutter * Check stool occult blood * Continue ferrous sulfate * Will check TSH, iron, ferritin, vitamin B12, folic acid08/24 * Iron level 24, TIBC 166, ferritin 186, vitamin B12 greater than a 1000, folate 5.3, TSH 3.050 * Continue ferrous sulfate * Will given iron infusion today * Occult blood negative * Continue to trend * This may be secondary to an autoimmune disease or worsening CKD * DULCE, TSH, usha test for SLE pending (4) Diabetes mellitus: * Blood sugars ranging 93-103 * Hgb A1C 12.5 03/17 * Accu checks q.6 hour * Low-dose SSI ordered * hypoglycemic protocol in place * Diabetic diet ordered--however poor p.o. intake currently on bicarb with D5W08/24 * Blood sugars stable today * patient continues to have episodes of hypoglycemia was as low as 47 this a.m. * stopped all sliding scale insulin * A1c pending * patient needs to follow-up with supervisor cooler service outpatient have some concerns for type 1 diabetes * patient will need to discontinue glimepiride with renal failure * A1c 5.3 stopped all oral diabetic medication she will need follow-up A1c in 3 months * she was made aware she will need to follow up with a supervisor cooler service (5) Pericardial effusion: * CTA of the chest abdomen pelvis showed a moderate size pericardial effusion * Cardiology consulted * Echo obtained and showed normal LV systolic function with an estimated EF of 60-65%, diastolic dysfunction, mild pulmonary hypertension, moderate pericardial effusion with no tamponade. * Patient given Lasix 40 mg IV push * Continue tele monitoring (6) Pleural effusion: * CT of the chest abdomen and pelvis shows small bilateral pleural effusions * Thoracentesis today only yield 1 mL of fluid before clotting * Pleural fluid sent for labs08/24 * Pleural fluid showing neutrophils to be high at 65% otherwise normal (7) Atrial fibrillation: * EKG today showed AFib with a rate of 99, QTC 477, marked left axis deviation and right bundle branch block * Currently on metoprolol succinate * Cardiology following * Hold off on anticoagulation at this time due to thoracentesis and worsening anemia08/25/2024: * back to SR * Will likely hold off on AC due to anemia * (8) Leukocytosis: * Likely inflammatory response * White blood cell count 14.6--gastroenteritis on CT of the chest abdomen and pelvis * blood cultures [id number] * White blood cell count down to 7.3 * Blood culture showing no growth to date on preliminary read RESOLVED (9) Gastroenteritis: * CT of the chest abdomen pelvis show fluid throughout nondilated small bowel consistent with gastroenteritis * Patient has 3 day history of nausea, vomiting, diarrhea * Bicarb 17 * Bicarb drip initiated * Continue antiemetic * White blood cell count 14.6, ESR 140, CRP 13.91 * White blood cell count down to 7.3 * Bicarb improved to 19 * Will stop bicarb drip and restart her oral bicarb * Advance diet as tolerated to diabetic consistent diet RESOLVED (10) Hypertension: * Blood pressure ranging 103/54 to 122/59 * Will hold amlodipine and [id number]/31 * Will continue to hold for today Dischaged: patient was seen and assessed day of discharge family at bedside reviewed each condition and need for follow-up. patient with overall improvement new further atypical chest pain with treatment from the colchicine and ibuprofen. Patient had no complaints was in no acute distress had long discussion with family bedside and on telephone for further need for follow-up including Rheumatology, supervisor cooler service, nephrology, and Cardiology. patient and family agreed with and acknowledged discharge plan. Status at Discharge Functional status at discharge: uses cane/walker Overall status at discharge: patient is progressing back to baseline Time Spent with Patient Time attestation: Total time spent providing and/or coordinating discharge services: Time spent: Greater than 30 minutes (>60 minutes) Exam Narrative: General: In no acute distress, well nourished, Blind Cardiac: Normal S1 and S2. NSR on monitor, No murmur, gallops or friction rubs. Respiratory: Lung sounds clear, no adventitious lung sounds, currently on room air Gastrointestinal: soft, non-distended, non-tender, normoactive bowel sounds. : Owens catheter in place draining clear sandra urine Neuro: Alert and oriented x4 DS: Data Data Completed and Pending Labs on day of discharge: Labs from last 24 hours 08/26/24 08/26/24 08/26/24 11:54 07:55 05:24 WBC 4.5 RBC 2.94 L Hgb 8.0 L Hct 25.7 L MCV 87.4 MCH 27.2 MCHC 31.1 L RDW 14.1 Plt Count 243 MPV 10.4 Immature Gran % (Auto) 1.8 H Neut % (Auto) 57.4 Lymph % (Auto) 26.2 [place] % (Auto) 8.7 H Eos % (Auto) 5.2 H Baso % (Auto) 0.7 Lymph # (Auto) 1.17 [place] # (Auto) 0.4 Eos # (Auto) 0.2 Baso # (Auto) 0.0 Abs Immat Gran (auto) 0.08 H Absolute Neuts (auto) 2.6 Absolute Nucleated RBC 0.000 Nucleated RBC % 0.0 ESR > 140 H Sodium 138 Potassium 3.9 Chloride 111 H Carbon Dioxide 23 Anion Gap 4 BUN 49 H Creatinine 3.30 H Estim Creat Clear Calc 19 Estimated GFR 14 L Glucose 100 POC Capillary Glucose 163 H 91 Hemoglobin A1c 5.3 Calcium 7.9 L Total Bilirubin 0.4 AST 40 H ALT 23 Alkaline Phosphatase 146 H C-Reactive Protein 6.0 H Total Protein 6.0 L Albumin 2.4 L 08/25/24 08/25/24 20:06 16:40 WBC RBC Hgb Hct MCV MCH MCHC RDW Plt Count MPV Immature Gran % (Auto) Neut % (Auto) Lymph % (Auto) [place] % (Auto) Eos % (Auto) Baso % (Auto) Lymph # (Auto) [place] # (Auto) Eos # (Auto) Baso # (Auto) Abs Immat Gran (auto) Absolute Neuts (auto) Absolute Nucleated RBC Nucleated RBC % ESR Sodium Potassium Chloride Carbon Dioxide Anion Gap BUN Creatinine Estim Creat Clear Calc Estimated GFR Glucose POC Capillary Glucose 175 H 148 H Hemoglobin A1c Calcium Total Bilirubin AST ALT Alkaline Phosphatase C-Reactive Protein Total Protein Albumin Preliminary micro results at discharge 08/22/24 09:23 Blood Culture - Preliminary Blood 08/22/24 09:05 Blood Culture - Preliminary Blood Imaging Radiologist's impression: Radiology Results: ITS Impressions Chest/Abdomen/Pelvis CT 08/22/24 11:44 IMPRESSION: 1. Small bilateral pleural effusions with likely chronic atelectasis/scarring in the bilateral lower lobes. 2. Moderate-sized pericardial effusion. 3. Fluid throughout nondilated small bowel. Correlate clinically for gastroenteritis. 4. Sigmoid diverticulosis. Chest X-Ray 08/23/24 07:57 Impression: Left lower lobe pulmonary edema/atelectasis versus pneumonia. Correlate clinically. Minimal left pleural effusion. Discoid right basilar atelectasis or scarring. Thoracentesis Ultrasound 08/23/24 17:25 IMPRESSION: 1. Successful ultrasound-guided thoracentesis yielding 1 mL of yellow fluid. Note that the pleural effusion is loculated, and more fluid could not be obtained despite positioning the needle at multiple locations within the pleural effusion. Discharge Plan Discharge Attending physician on discharge: Nomi Lester Consulting providers: Alexa Main; Hair Lockett; Nikita Spring; Roz Sheikh; Eugenio Marks; Svitlana Church; Delgado Conner; Vamsi Otto; Elie Castellano V. Discharging Clinician: Cece Amaya Anticipated Discharge Date/Time: 08/26/24 13:21 Patient Disposition: Home, Self-Care Activity: may shower and as tolerated Diet: heart healthy and diabetic Discharge Instructions: Pericarditis (inflammation the lining of the heart) * Continue colchicine x3 months * Insist can be tapered off in 1-2 weeks * Will need to follow up with Cardiology outpatient * Continue with autoimmune workup outpatient DULCE and usha test pending will need follow-up with primary care physician * Will need referral to diet assistant if positive Acute on chronic kidney disease * The will need continued renal function monitoring * Please make follow-up with Nephrology Diabetes * Your oral glimepiride has been discontinue due to episodes of hypoglycemia and Kidney disease * Your A1c was 5.3 * I have stopped all diabetic medication at this time and you will need close monitoring of your blood sugars at home, I have provided a prescription for a Dexacom due to multiple episodes of hypoglycemia. * I would recommend a follow-up A1c in 3 months * you will need a referral to an supervisor cooler service for further evaluation and treatment. * If your blood sugars run over 200's please contact your primary care physician * Make regular eye appointments * Continue with sodium bicarb tablets Autoimmune testing * I have been testing you for underlying autoimmune disease * your rheumatoid arthritis lab was negative * Your DULCE and usha testing for lupus is outstanding will need follow-up outpatient * If these are positive you will need referral to a diet assistant Atrial fibrillation * I have started you on Eliquis 2.5 twice a day for atrial fibrillation * Monitor for bleeding closely seek medical attention if you notice any blood in stool * Will need close monitoring of your hemoglobin due to anemia * Will need follow-up with Cardiology outpatient Anemia (low blood counts) * This could be secondary to autoimmune disease or your chronic kidney disease * Ensure primary care physician monitors your hemoglobin hematocrit closely * Monitor for any signs of bleeding * If you experience any episodes of dizziness or syncopal episodes seek medical attention How can you care for yourself at home? ? Keep track of any new symptoms or changes in your symptoms. ? Rest until you feel better. ? Be safe with medicines. Take your medicines exactly as prescribed. Call your doctor if you think you are having a problem with your medicine. ? Do not drive after taking a prescription pain medicine. ? Ensure to follow-up with primary care physician as indicated and provide updated medication list provided to you at discharge. When should you call for help? Call 911 anytime you think you may need emergency care. For example, call if: ? You passed out (lost consciousness). Call your doctor now or seek immediate medical care if: ? You have new symptoms like fever, difficulty breathing, Chest pain, vomiting, or rash. ? You have new or different pain. ? You are confused and are having trouble thinking clearly. ? Your symptoms are getting worse. Watch closely for changes in your health, and be sure to contact your doctor if: ? You do not get better as expected. Patient Instructions: Antibiotic Form, A-fib (Atrial Fibrillation) (DC), Chronic Kidney Disease (DC), Hypoglycemia in a Person with Diabetes (DC), Acute Pericarditis (DC), Anemia (DC), Autoimmune Disease (ED), Diabetes and Exercise (DC) Patient Language: [place]an Stand Alone Forms: General Discharge Information Follow-up/Referrals: Kendra Murray APRN [Advanced Practice Nurse] - Call for Appointment [facility],Yanna Xie M.D. [Non-Staff] - Call for Appointment Jonatan Worley MD [Primary Care Provider] - 2 Weeks Hair Lockett MD [Physician] - 2 Weeks Alexa Main APN-C [Advanced Practice Nurse] - 4 Weeks Discharge Medications: New ibuprofen 600 mg Tablet 600 mg PO TID Qty: 30 0RF colchicine [Colcrys] 0.6 mg Tablet 0.6 mg PO Q12HR Qty: 120 0RF Eliquis 2.5 mg tablet 2.5 mg PO BID Qty: 60 0RF Rx Instructions: Renal adjusted (DME) Dexcom G6 Pattern Checker Misc See Rx Instructions .Route Qty: 1 0RF Rx Instructions: As directed (DME) Dexcom G6 Sensor Device See Rx Instructions .Route Qty: 3 0RF Rx Instructions: As directed (DME) Dexcom G6 Transmitter Device See Rx Instructions .Route Qty: 1 0RF Rx Instructions: As directed Continued amlodipine 5 mg tablet 5 mg PO QAM brimonidine 0.2 % drops 1 drp EACH EYE BID dorzolamide 2 % drops 1 drp RIGHT EYE BID timolol maleate 0.5 % drops 1 drp EACH EYE BID metoprolol succinate 100 mg tablet extended release 24 hr 100 mg PO QAM rosuvastatin 5 mg tablet 5 mg PO QAM ferrous sulfate [FeroSul] 325 mg (65 mg iron) tablet 325 mg PO QAM cholecalciferol (vitamin D3) [D3 DOTS] 50 mcg (2,000 unit) tablet 50 mcg PO QAM hydralazine 50 mg tablet 50 mg PO TID sodium bicarbonate 650 mg tablet 650 mg PO TID Artificial Tears(pvalch-povid) 0.5-0.6 % drops 1 drp RIGHT EYE BID Discontinued dapagliflozin propanediol [Farxiga] 10 mg tablet 10 mg PO QAM glimepiride 2 mg tablet 4 mg PO QAM Date of admission: 08/23/24 09:59 Primary Care Provider: Jonatan Worley Admitting Provider: Nicholas Davila Attending physician on admission: Ccee Amaya Condition: Stable Quality VTE Prophylaxis VTE prophylaxis: mechanical ordered Hospitalist MIPS Heart Failure (Exclusion) Patient has history of Heart Transplant or Left Ventricular Assistive Device?: No IF YES, STOP HERE Heart Failure (Qualifier) Patient has current or prior documentation of LVEF less than or equal to 40%, or mod/servere depressed LVSF?: No IF NO, STOP HERE
--- NOTE | 2024-08-26 13:51 | PM.DS ---
DS: Admitting Diagnosis Discharge Date 08/26/2024 Admitting Diagnosis Pericarditis DS: Discharge Diagnosis Discharge Diagnosis (1) Pericarditis: Code(s): I31.9 - Disease of pericardium, unspecified Status: Acute Assessment and Plan: continue with colchicine/ ibuprofen follow-up with cardiology outpatient follow-up with referral to set up person for further autoimmune testing (2) Acute kidney injury: Code(s): N17.9 - Acute kidney failure, unspecified Status: Inactive Assessment and Plan: last renal ultrasound showing atrophy of kidneys have some concerns for underlying autoimmune such as SLE, RA negative, retic count 24.6 will likely need follow-up with set up person outpatient (3) Anemia: Code(s): D64.9 - Anemia, unspecified Status: Acute Assessment and Plan: Iron level 24, TIBC 166, ferritin 186, vitamin B12 greater than a 1000, folate 5.3, TSH 3.050 Continue ferrous sulfat This may be secondary to an autoimmune disease or worsening CKD DULCE, TSH, usha test for SLE pending (4) Diabetes mellitus: Qualifiers: Diabetes mellitus complication detail: with diabetic retinopathy Diabetes mellitus complication status: with ophthalmic complications Diabetes mellitus longwall foreman insulin use: without mcc use Diabetes mellitus macular edema: without macular edema Diabetes mellitus type: type 2 Diabetic retinopathy severity: with unspecified retinopathy severity Laterality: right Qualified Code(s): E11.319 - Type 2 diabetes mellitus with unspecified diabetic retinopathy without macular edema Code(s): E11.9 - Type 2 diabetes mellitus without complications Status: Chronic Assessment and Plan: patient continues to have episodes of hypoglycemia was as low as 47 this a.m. stopped all sliding scale insulin A1c 5.3 patient needs to follow-up with bilingual branch manager outpatient have some concerns for type 1 diabetes patient will need to discontinue glimepiride with renal failure discontinued all patient's diabetic medications follow-up in 3 months with new provider (5) Pericardial effusion: Code(s): I31.39 - Other pericardial effusion (noninflammatory) Status: Acute (6) Pleural effusion: Code(s): J90 - Pleural effusion, not elsewhere classified Status: Acute Assessment and Plan: performed thoracentesis Pleural fluid showing neutrophils to be high at 65% otherwise normal (7) Atrial fibrillation: Code(s): I48.91 - Unspecified atrial fibrillation Status: Acute Assessment and Plan: paroxysmal AFib holding IAN due to anemia (8) Leukocytosis: Code(s): D72.829 - Elevated white blood cell count, unspecified Status: Acute Assessment and Plan: RESOLVED (9) Gastroenteritis: Code(s): K52.9 - Noninfective gastroenteritis and colitis, unspecified Status: Acute Assessment and Plan: RESOLVED (10) Hypertension: Code(s): I10 - Essential (primary) hypertension Status: Chronic Assessment and Plan: Blood pressure ranging 103/54 to 122/59 Will hold amlodipine and hydralazine 08/24 Will continue to hold for today Plan Disposition: patient was discharged home with family will need follow-up with primary, set up person, nephrologists, and bilingual branch manager family updated and aware. DS: Summary Hospital Course Reason for hospitalization: pericarditis/ enteritis/ hypoglycemia/ acute on chronic renal failure Hospital Course: patient was [id number] female with past medical history of CKD, anxiety and diabetes presents to the hospital with nausea vomiting diarrhea. Patient states that she has had nausea vomiting diarrhea for about the last 3 days and is starting to feel extremely weak. She she states that she now has chest pain from vomiting and retching. Patient also complains of shortness of breath for the last month or 2. She states that her primary care provider has recommended for her to get x-ray and follow-up however she has not done so at this time. Patient denies fevers chills or abdominal pain. Leukocytosis at 14.6, anemia at 10.8 hyponatremia 130, BUN 39, GFR 15, creatinine 3.10, baseline appears to be under 2.6, phosphorus at 4.6. UA negative for acute UTI. Influenza a, B, RSV and COVID negative. CT shows Small bilateral pleural effusions with likely chronic atelectasis/scarring in the bilateral lower lobes, Moderate-sized pericardial effusion and Fluid throughout nondilated small bowel. Correlate clinically for gastroenteritis. Small bilateral pleural effusions with likely chronic atelectasis/scarring in the bilateral lower lobes. Moderate-sized pericardial effusion. during patient's admission the following diagnosis or evaluated and treated (1) Pericarditis: treated with ibuprofen and colchicine per Cardiology recommendation Cardiology following ESR 140, CRP 13.9 DULCE and rheumatoid factor pending Will check [id number] Rheumatoid factor less than 12.0 And a pending IgM was high at 318, IgG and IgA were within normal limits Continue ibuprofen and colchicine per Cardiology recommendation Cardiology following This may be secondary to an autoimmune disease or worsening CKD DULCE, TSH, usha test for SLE pending (2) Acute kidney injury: Acute on chronic kidney disease Creatinine 3.0 Baseline creatinine around 2.6 Owens catheter placed due to urinary retention of greater than 900 mL UA was negative for bacteria, leukocytes, white blood cells, or nitrates Continue to trend08/24 Creatinine 3.30, EGFR 14 Will continue bicarb drip for today considering bicarb level is still low at 19, however improved from yesterday Avoid nephrotoxic medication as much as possible Avoid testing with IV contrast nephrology consulted further recommendations and evaluation last renal ultrasound showing atrophy of kidneys have some concerns for underlying autoimmune such as SLE, RA negative, retic count 24.6 will likely need follow-up with set up person outpatient currently has a transportation manager outpatient okay to discharge from renal standpoint per nephrology (3) Anemia: Hemoglobin 10.8 on admission, down to 8.6 this morning, recheck at 6:46 p.m. was 7.8 No signs of active bleeding however will hold Lovenox and anticoagulation for AFib/flutter Check stool occult blood Continue ferrous sulfate Will check TSH, iron, ferritin, vitamin B12, folic acid08/24 Iron level 24, TIBC 166, ferritin 186, vitamin B12 greater than a 1000, folate 5.3, TSH 3.050 Continue ferrous sulfate Will given iron infusion today Occult blood negative Continue to trend This may be secondary to an autoimmune disease or worsening CKD DULCE, TSH, usha test for SLE pending (4) Diabetes mellitus: Blood sugars ranging 93-103 Hgb A1C 12.5 03/17 Accu checks q.6 hour Low-dose SSI ordered hypoglycemic protocol in place Diabetic diet ordered--however poor p.o. intake currently on bicarb with [id number]/31 Blood sugars stable today patient continues to have episodes of hypoglycemia was as low as 47 this a.m. stopped all sliding scale insulin A1c pending patient needs to follow-up with bilingual branch manager outpatient have some concerns for type 1 diabetes patient will need to discontinue glimepiride with renal failure A1c 5.3 stopped all oral diabetic medication she will need follow-up A1c in 3 months she was made aware she will need to follow up with a bilingual branch manager (5) Pericardial effusion: CTA of the chest abdomen pelvis showed a moderate size pericardial effusion Cardiology consulted Echo obtained and showed normal LV systolic function with an estimated EF of 60-65%, diastolic dysfunction, mild pulmonary hypertension, moderate pericardial effusion with no tamponade. Patient given Lasix 40 mg IV push Continue tele monitoring (6) Pleural effusion: CT of the chest abdomen and pelvis shows small bilateral pleural effusions Thoracentesis today only yield 1 mL of fluid before clotting Pleural fluid sent for labs08/24 Pleural fluid showing neutrophils to be high at 65% otherwise normal (7) Atrial fibrillation: EKG today showed AFib with a rate of 99, QTC 477, marked left axis deviation and right bundle branch block Currently on metoprolol succinate Cardiology following Hold off on anticoagulation at this time due to thoracentesis and worsening anemia08/25/2024: back to SR Will likely hold off on AC due to anemia (8) Leukocytosis: Likely inflammatory response White blood cell count 14.6--gastroenteritis on CT of the chest abdomen and pelvis blood cultures [id number] White blood cell count down to 7.3 Blood culture showing no growth to date on preliminary read RESOLVED (9) Gastroenteritis: CT of the chest abdomen pelvis show fluid throughout nondilated small bowel consistent with gastroenteritis Patient has 3 day history of nausea, vomiting, diarrhea Bicarb 17 Bicarb drip initiated Continue antiemetic White blood cell count 14.6, ESR 140, CRP 13.912/ White blood cell count down to 7.3 Bicarb improved to 19 Will stop bicarb drip and restart her oral bicarb Advance diet as tolerated to diabetic consistent diet RESOLVED (10) Hypertension: Blood pressure ranging 103/54 to 122/59 Will hold amlodipine and [id number]/31 Will continue to hold for today Dischaged: patient was seen and assessed day of discharge family at bedside reviewed each condition and need for follow-up. patient with overall improvement new further atypical chest pain with treatment from the colchicine and ibuprofen. Patient had no complaints was in no acute distress had long discussion with family bedside and on telephone for further need for follow-up including Rheumatology, bilingual branch manager, nephrology, and Cardiology. patient and family agreed with and acknowledged discharge plan. Status at Discharge Functional status at discharge: uses cane/walker Overall status at discharge: patient is progressing back to baseline Time Spent with Patient Time attestation: Total time spent providing and/or coordinating discharge services: Time spent: Greater than 30 minutes (>60 minutes) Exam Narrative: General: In no acute distress, well nourished, Blind Cardiac: Normal S1 and S2. NSR on monitor, No murmur, gallops or friction rubs. Respiratory: Lung sounds clear, no adventitious lung sounds, currently on room air Gastrointestinal: soft, non-distended, non-tender, normoactive bowel sounds. : Owens catheter in place draining clear sandra urine Neuro: Alert and oriented x4 DS: Data Data Completed and Pending Labs on day of discharge: Labs from last 24 hours 08/26/24 08/26/24 08/26/24 11:54 07:55 05:24 WBC 4.5 RBC 2.94 L Hgb 8.0 L Hct 25.7 L MCV 87.4 MCH 27.2 MCHC 31.1 L RDW 14.1 Plt Count 243 MPV 10.4 Immature Gran % (Auto) 1.8 H Neut % (Auto) 57.4 Lymph % (Auto) 26.2 [place] % (Auto) 8.7 H Eos % (Auto) 5.2 H Baso % (Auto) 0.7 Lymph # (Auto) 1.17 [place] # (Auto) 0.4 Eos # (Auto) 0.2 Baso # (Auto) 0.0 Abs Immat Gran (auto) 0.08 H Absolute Neuts (auto) 2.6 Absolute Nucleated RBC 0.000 Nucleated RBC % 0.0 ESR > 140 H Sodium 138 Potassium 3.9 Chloride 111 H Carbon Dioxide 23 Anion Gap 4 BUN 49 H Creatinine 3.30 H Estim Creat Clear Calc 19 Estimated GFR 14 L Glucose 100 POC Capillary Glucose 163 H 91 Hemoglobin A1c 5.3 Calcium 7.9 L Total Bilirubin 0.4 AST 40 H ALT 23 Alkaline Phosphatase 146 H C-Reactive Protein 6.0 H Total Protein 6.0 L Albumin 2.4 L 08/25/24 08/25/24 20:06 16:40 WBC RBC Hgb Hct MCV MCH MCHC RDW Plt Count MPV Immature Gran % (Auto) Neut % (Auto) Lymph % (Auto) [place] % (Auto) Eos % (Auto) Baso % (Auto) Lymph # (Auto) [place] # (Auto) Eos # (Auto) Baso # (Auto) Abs Immat Gran (auto) Absolute Neuts (auto) Absolute Nucleated RBC Nucleated RBC % ESR Sodium Potassium Chloride Carbon Dioxide Anion Gap BUN Creatinine Estim Creat Clear Calc Estimated GFR Glucose POC Capillary Glucose 175 H 148 H Hemoglobin A1c Calcium Total Bilirubin AST ALT Alkaline Phosphatase C-Reactive Protein Total Protein Albumin Preliminary micro results at discharge 08/22/24 09:23 Blood Culture - Preliminary Blood 08/22/24 09:05 Blood Culture - Preliminary Blood Imaging Radiologist's impression: Radiology Results: ITS Impressions Chest/Abdomen/Pelvis CT 08/22/24 11:44 IMPRESSION: 1. Small bilateral pleural effusions with likely chronic atelectasis/scarring in the bilateral lower lobes. 2. Moderate-sized pericardial effusion. 3. Fluid throughout nondilated small bowel. Correlate clinically for gastroenteritis. 4. Sigmoid diverticulosis. Chest X-Ray 08/23/24 07:57 Impression: Left lower lobe pulmonary edema/atelectasis versus pneumonia. Correlate clinically. Minimal left pleural effusion. Discoid right basilar atelectasis or scarring. Thoracentesis Ultrasound 08/23/24 17:25 IMPRESSION: 1. Successful ultrasound-guided thoracentesis yielding 1 mL of yellow fluid. Note that the pleural effusion is loculated, and more fluid could not be obtained despite positioning the needle at multiple locations within the pleural effusion. Discharge Plan Discharge Attending physician on discharge: Nomi Lester Consulting providers: Alexa Main; Hair Lockett; Nikita Spring; Roz Sheikh; Eugenio Marks; Svitlana Church; Delgado Conner; Vamsi Otto; Elie Castellano V. Discharging Clinician: Cece Amaya Anticipated Discharge Date/Time: 08/26/24 13:21 Patient Disposition: Home, Self-Care Activity: may shower and as tolerated Diet: heart healthy and diabetic Discharge Instructions: Pericarditis (inflammation the lining of the heart) Continue colchicine x3 months Insist can be tapered off in 1-2 weeks Will need to follow up with Cardiology outpatient Continue with autoimmune workup outpatient DULCE and usha test pending will need follow-up with primary care physician Will need referral to set up person if positive Acute on chronic kidney disease The will need continued renal function monitoring Please make follow-up with Nephrology Diabetes Your oral glimepiride has been discontinue due to episodes of hypoglycemia and Kidney disease Your A1c was 5.3 I have stopped all diabetic medication at this time and you will need close monitoring of your blood sugars at home, I have provided a prescription for a Dexacom due to multiple episodes of hypoglycemia. I would recommend a follow-up A1c in 3 months you will need a referral to an bilingual branch manager for further evaluation and treatment. If your blood sugars run over 200's please contact your primary care physician Make regular eye appointments Continue with sodium bicarb tablets Autoimmune testing I have been testing you for underlying autoimmune disease your rheumatoid arthritis lab was negative Your DULCE and usha testing for lupus is outstanding will need follow-up outpatient If these are positive you will need referral to a set up person Atrial fibrillation I have started you on Eliquis 2.5 twice a day for atrial fibrillation Monitor for bleeding closely seek medical attention if you notice any blood in stool Will need close monitoring of your hemoglobin due to anemia Will need follow-up with Cardiology outpatient Anemia (low blood counts) This could be secondary to autoimmune disease or your chronic kidney disease Ensure primary care physician monitors your hemoglobin hematocrit closely Monitor for any signs of bleeding If you experience any episodes of dizziness or syncopal episodes seek medical attention How can you care for yourself at home? ? Keep track of any new symptoms or changes in your symptoms. ? Rest until you feel better. ? Be safe with medicines. Take your medicines exactly as prescribed. Call your doctor if you think you are having a problem with your medicine. ? Do not drive after taking a prescription pain medicine. ? Ensure to follow-up with primary care physician as indicated and provide updated medication list provided to you at discharge. When should you call for help? Call 911 anytime you think you may need emergency care. For example, call if: ? You passed out (lost consciousness). Call your doctor now or seek immediate medical care if: ? You have new symptoms like fever, difficulty breathing, Chest pain, vomiting, or rash. ? You have new or different pain. ? You are confused and are having trouble thinking clearly. ? Your symptoms are getting worse. Watch closely for changes in your health, and be sure to contact your doctor if: ? You do not get better as expected. Patient Instructions: Antibiotic Form, A-fib (Atrial Fibrillation) (DC), Chronic Kidney Disease (DC), Hypoglycemia in a Person with Diabetes (DC), Acute Pericarditis (DC), Anemia (DC), Autoimmune Disease (ED), Diabetes and Exercise (DC) Patient Language: Chinese Stand Alone Forms: General Discharge Information Follow-up/Referrals: Kendra Murray APRN [Advanced Practice Nurse] - Call for Appointment Rg,Yanna Xie M.D. [Non-Staff] - Call for Appointment Jonatan Worley MD [Primary Care Provider] - 2 Weeks Hair Lockett MD [Physician] - 2 Weeks Alexa Main APN-C [Advanced Practice Nurse] - 4 Weeks Discharge Medications: New ibuprofen 600 mg Tablet 600 mg PO TID Qty: 30 0RF colchicine [Colcrys] 0.6 mg Tablet 0.6 mg PO Q12HR Qty: 120 0RF Eliquis 2.5 mg tablet 2.5 mg PO BID Qty: 60 0RF Rx Instructions: Renal adjusted (DME) Dexcom G6 High Risk Case Manager Misc See Rx Instructions .Route Qty: 1 0RF Rx Instructions: As directed (DME) Dexcom G6 Sensor Device See Rx Instructions .Route Qty: 3 0RF Rx Instructions: As directed (DME) Dexcom G6 Transmitter Device See Rx Instructions .Route Qty: 1 0RF Rx Instructions: As directed Continued amlodipine 5 mg tablet 5 mg PO QAM brimonidine 0.2 % drops 1 drp EACH EYE BID dorzolamide 2 % drops 1 drp RIGHT EYE BID timolol maleate 0.5 % drops 1 drp EACH EYE BID metoprolol succinate 100 mg tablet extended release 24 hr 100 mg PO QAM rosuvastatin 5 mg tablet 5 mg PO QAM ferrous sulfate [FeroSul] 325 mg (65 mg iron) tablet 325 mg PO QAM cholecalciferol (vitamin D3) [D3 DOTS] 50 mcg (2,000 unit) tablet 50 mcg PO QAM hydralazine 50 mg tablet 50 mg PO TID sodium bicarbonate 650 mg tablet 650 mg PO TID Artificial Tears(pvalch-povid) 0.5-0.6 % drops 1 drp RIGHT EYE BID Discontinued dapagliflozin propanediol [Farxiga] 10 mg tablet 10 mg PO QAM glimepiride 2 mg tablet 4 mg PO QAM Date of admission: 08/23/24 09:59 Primary Care Provider: Worley,Jonatan J. Admitting Provider: Nicholas Davila Attending physician on admission: Cece Amaya Condition: Stable Quality VTE Prophylaxis VTE prophylaxis: mechanical ordered Hospitalist MIPS Heart Failure (Exclusion) Patient has history of Heart Transplant or Left Ventricular Assistive Device?: No IF YES, STOP HERE Heart Failure (Qualifier) Patient has current or prior documentation of LVEF less than or equal to 40%, or mod/servere depressed LVSF?: No IF NO, STOP HERE
--- OUTSIDE RECORDS SUMMARY | 2024-08-29 03:45 | XMS_ITS | Encounter Summary ---
Author Organization [facility] Address [address] [place] [address] Phone Care Team Providers Care Terrapin Fisher Name Role Phone Jonatan Worley Primary Care Provider Srinivasa Lee MD Unavailable [phone] Reason for Visit * Reason Onset Date Comments Medication Refill 07/23/2023 Encounter Details Date Type Department Care Team (Late st Contact Info) Description 07/23/2023 Refill [facility] [address] [id number] Srinivasa Lee MD [address] [address] Medication Refill Social History Tobacco Use Types Packs/Day Years Used Date Smoking Tobacco: Never Smokeless Tobacco: Never Alcohol Use Standard Drinks/Week Comments Not Currently 0 (1 standard drink = 0.6 oz pur e alcohol) PHQ-2 Answer Date Recorded Total Score - Questions 1-9 0 02/23 Education Answer Date Recorded What is the highest level of school you have completed or the highest degree you have received? 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 ATION ONCOLOGIST documented in this encounter Plan of Treatment Upcoming Encounters Date Type Department Care Team (Late st Contact Info) Description 10/18/2024 1:30 PM RADIATION ONCOLOGIST Office Visit [facility] [address] [place] [phone] Srinivasa Lee MD [address] [facility] [address] [place], [place] [id number] documented as of this encounter Visit Diagnoses Not on filedocumented in this encounter Additional Health Concerns Assessment Noted Time PHQ-9 Depression Total Score: 0 03/08/20 21 11:06 AM CDT documented as of this encounter Care Teams Terrapin Fisher Relationship Specialty Start Date End Date Jonatan Worley [address] [place] [address] PCP - General Family Medicine 07/12/20 Srinivasa Lee MD [address] [place] [phone] Consulting Physician Oncology 07/12/20 documented as of this encounter
--- OUTSIDE RECORDS SUMMARY | 2024-08-29 03:45 | XMS_ITS | Encounter Summary ---
Author Organization [facility] Address [address] [place] [address] Phone Care Team Providers Care Keg Washer Name Role Phone Jonatan Worley Primary Care Provider [phone] Srinivasa Lee MD Unavailable [phone] Encounter Details Date Type Department Care Team (Late st Contact Info) Description 12/06/2022 Telephone [facility] [address] [place] [address] Srinivasa Lee MD 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 No / Unsure 12/06/2022 9:27 AM CDT documented as of this encounter Functional Status * Question Answer Date of Assessment Author Little interest or pleasure in doing things Not at all 12/06/2022 9:36 AM CDT Robert Naranjo CMA Feeling down, depressed, or hopeless Not at all 12/06/2022 9:36 AM CDT Peggy Naranjo CMA * Over the past 2 weeks, how often have you been bothered by any of the following problems? Question Answer Date of Assessment Author Patient Health Questionnaire -2 Score 0 12/06/2022 9:36 AM CDT Peggy Naranjo CMA documented as of this encounter Miscellaneous Notes * Telephone Encounter - Nova Sinclair RN - 12/06/2022 12:43 PM CDT Labs faxed and sent to Nephrology and PCP. * Telephone Encounter - Srinivasa Lee MD - 12/06/2022 11:41 AM CDT Noted please forward to pcp and nephrology * Telephone Encounter - Ely Lai RN - 12/06/2022 11:32 AM CDT Critical lab K 5.6 documented in this encounter Plan of Treatment Upcoming Encounters Date Type Department Care Team (Late st Contact Info) Description 10/18/2024 1:30 PM METAL TANK ERECTOR [facility] [address] [phone] Srinivasa Lee MD [address] [place] [address] [place] [address] documented as of this encounter Visit Diagnoses Not on filedocumented in this encounter Additional Health Concerns Assessment Noted Time PHQ-9 Depression Total Score: 0 07/15/20 21 11:06 AM CDT documented as of this encounter Care Teams Keg Washer Relationship Specialty Start Date End Date Jonatan Worley [address] [place] [address] PCP - General Family Medicine 07/12/20 Srinivasa Lee MD [address] [place] [phone] Consulting Physician Oncology 07/12/20 documented as of this encounter
--- OUTSIDE RECORDS SUMMARY | 2024-08-29 03:45 | XMS_ITS | Encounter Summary ---
Author Organization [facility] Address [address] [place] [address] Phone Care Team Providers Care Water Filtration Technician Name Role Phone Jonatan Worley Primary Care Provider Srinivasa Lee MD Unavailable Reason for Visit * Reason Comments Follow-up Encounter Details Date Type Department Care Team (Latest Contact Info) Description 06/17/2024 2:00 PM CDT Office Visit [facility] [address] [place] [address] Esther Oreilly, FURNITURE DELIVERY DRIVER, EQUINE INTERN [address], [place] [id number] Hypogammaglobulinemia (HCC) (Primary Dx); 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); Iron deficiency Social History Tobacco Use Types Packs/Day Years Used Date Smoking Tobacco: Never Smokeless Tobacco: Never Tobacco Cessation:Counseling Given: No Alcohol Use Standard Drinks/Week Comments Not Currently [...] on file Legal Sex Female 11:51 AM SURGICAL GARMENT INSPECTOR Gender Identity Not on file Sexual Orientation Not on file documented as of this encounter Last Filed Vital Signs Vital Sign Reading Time Taken Comments Blood Pressure 130/72 06/17/2024 2:12 PM CDT Pulse 70 06/17/2024 2:12 PM CDT Temperature 36.6 ??C (97.8 ??F) 06/17/2024 2:12 PM CD T Respiratory Rate 18 06/17/2024 2:12 PM CDT Oxygen Saturation 94% 06/17/2024 2:12 PM CDT Inhaled Oxygen Concentration - - Weight 94.5 kg (208 lb 6.4 oz) 06/17/2024 2:12 P M CDT Height 170.2 cm (5' 7 ) 06/17/2024 2:12 PM CDT Body Mass Index 32.64 06/17/2024 2:12 PM CDT documented in this encounter Functional Status * Question Answer Date of Assessment Author Little interest or pleasure in doing things Not at all 06/17/2024 2:12 PM CDT Jatin Napier CMA Feeling down, depressed, or hopeless Not at all 06/17/2024 2:12 PM CDT Deyanira Napier CMA * Over the past 2 weeks, how often have you been bothered by any of the following problems? Question Answer Date of Assessment Author Patient Health Questionnaire-2 Score 0 06/17/2024 2:12 PM CDT Tereza Napier CMA documented as of this encounter Progress Notes * Esther Oreilly APRN, CNP - 06/17/2024 2:00 PM CDT Images from the original note were not included. Patient: Arely Ernandez Age: 63 y.o. : 1960 [facility] En[facility] Date: 06/17/2024 Care Team: Current Providers PCP: Jonatan Worley Care Team Provider: Srinivasa Lee MD Encounter Provider: Esther Rojas APRN, EQUINE INTERN Referring Provider: not found Nurse Practitioner: Esther Rojas APRN, EQUINE INTERN HISTORY OF PRESENT ILLNESS: Ms. Arely Ernnadez returns to clinic for follow-up of her anemia secondary to chronic kidney disease and hypogammaglobulinemia. Since her last visit, Arely states she has been doing well. She did come down with pneumonia in April. She was able to be treated outpatient by her PCP. She denies any fevers, chills or night sweats, unintentional weight loss, recurrent infections or hospitalizations. She denies any episodes of melena, hematochezia or any other bleeding episodes. She continues on oral ferrous sulfate 325 mg daily. DIAGNOSIS: 1. Hypogammaglobulinemia 2. Anemia. 3. Chronic Kidney Disease 4. Iron deficiency. PAST TREATMENT: Not applicable. CURRENT TREATMENT: 1. Oral ferrous sulfate 325 mg daily. TREATMENT GUIDELINES: Not applicable. PROGNOSIS: Not applicable. EXPECTED RESPONSE TO TREATMENT: Not applicable. EXPECTED QUALITY OF LIFE DURING TREATMENT: Not applicable. ECOG: Not applicable. PAIN: Not applicable. PLAN FOR PAIN: Not applicable. CODE STATUS: Not applicable. END OF LIFE: Not applicable. ASSESSMENT: 1. Anemia. Etiology unclear. Likely chronic disease. Could be underlying diabetes. Needs additionalworkup. 2. Hypogammaglobulinemia. It requires further evaluation with likely from underlying diabetes or other chronic illnesses. We will address that further. 3. Age-appropriate cancer screening discussed with the patient. PLAN: At this time, I discussed with Arely that clinically she is doing well. Repeat labs today including CBC, MP, LDH, reticulocyte count, iron studies, ferritin, vitamin B12, folic acid, and paraprotein evaluation. We will call patient with any abnormal results. As long as hemoglobin remains stable, we will continue oral iron and not consider erythropoietin. If there is a trend to her being transfusion dependent, we will consider EPO. Patient will continue following with her Fusion Operator. I will have the patient return to clinic for follow-up with office visit in four months. I encouraged the patient to call with any questions, problems, or concerns that she may have. Dr. Lee present in the clinic to answer any questions. TIME SPENT: PAST MEDICAL HISTORY, PAST SURGICAL HISTORY, SOCIAL HISTORY, ALLERGIES, AND MEDICATIONS are as per EMR. REVIEW OF SYSTEMS: See HPI; otherwise, 12-point review of systems is negative. PHYSICAL EXAM: GENERAL: Patient is awake, alert and oriented x3. HEENT: Normocephalic, atraumatic, PERRLA, EOMI. Sclerae nonicteric, conjunctivae normal. Nasopharynx negative. Tongue normal, uvula midline, no thrush, no mucosal lesions present. NECK: Supple. No cervical, supraclavicular, or axillary lymphadenopathy. Thyroid not palpable. LUNGS: Clear to auscultation and percussion in all lung cheney, no focal wheezes, rales, or rhonchi. HEART: Regular rhythm and rate. Normal S1, S2, no S3, S4, no murmur, or rub. ABDOMEN: No hepatosplenomegaly, masses, ascites, areas of tenderness, bruits, or hernias. EXTREMITIES: No clubbing, cyanosis, or edema. LABORATORY/PATHOLOGY/IMAGING NOTES: Laboratory evaluation reviewed per Care Everywhere. MD Esther Arriola, DNP, SUBEDITOR- Vitals: Vitals: 06/17/24 1412 BP: 130/72 BP Location: Left Arm BP Position: Sitting BP Cuff Size: Regular Pulse: 70 Resp: 18 Temp: 97.8 ??F (36.6 ??C) TempSrc: Temporal SpO2: 94% Weight: 208 lb 6.4 oz (94.5 kg) Height: 5' 7 (1.702 m) Body surface area is 2.11 meters squared. Body mass index is 32.64 kg/m??. Pain Score: 0 - No pain Allergies: Allergies Allergen Reactions Penicillins Other (see Comments) 'black out' PMH/SgH/FH/SH: Past medical, surgical, family and social histories were reviewed at this visit. Past Medical History Positives Diagnosis Date Diabetes mellitus (HCC) Hyperlipidemia Hypertension Past Surgical History: Procedure Laterality Date EYE SURGERY No family history on file. Family Status Relation Name Status Mother Father Sister Alive Brother Alive Sister Alive No partnership data on file Social History Socioeconomic History Marital status: Spouse name: Richard Number of children: 5 Years of education: 12 Highest education level: 12th grade Tobacco Use Smoking status: Never Smokeless tobacco: Never Vaping Use Vaping status: Never Used Substance and Sexual Activity Alcohol use: Not Currently Sexual activity: Yes control/protection: Post-menopausal Other Topics Concern Occupational Exposure No Special Diet Yes Comment: diabetic Oncology History: Oncology History No history exists. Cancer Staging: Cancer Staging No matching staging information was found for the patient. Cumulative dose Purpose/Goal Comments Lifetime Dose Tracking No doses have been documented on this patient for the following tracked chemicals: Doxorubicin, Epirubicin, Idarubicin, Daunorubicin, Mitoxantrone, Bleomycin, Ifosfamide, Methotrexate, Cyclophosphamide, Cisplatin, Carboplatin Current Medications: Outpatient Encounter Medications as of 06/17/2024 Medication Sig Dispense Refill amLODIPine (NORVASC) 5 MG Tablet TAKE 1 TABLET BY MOUTH ONCE DAILY brimonidine (ALPHAGAN) 0.2 % Solution INSTILL 1 DROP INTO EACH EYE TWICE DAILY Cholecalciferol 2000 UNIT Capsule Take 2,000 Units by mouth. Cyanocobalamin (VITAMIN B-12) 1000 MCG Tablet Take 1,000 mcg by mouth. Dapagliflozin Propanediol (Farxiga) 10 MG Tablet Take 1 Tablet by mouth. dorzolamide (TRUSOPT) 2 % Solution INSTILL 1 DROP INTO RIGHT EYE 4 TIMES DAILY ergocalciferol (VITAMIN D) 69883 UNIT Capsule ferrous sulfate 325 (65 Fe) MG Tablet Take 325 mg by mouth. glimepiride (AMARYL) 2 MG Tablet Take 2 mg by mouth every morning. glimepiride (AMARYL) 4 MG Tablet TAKE 1 TABLET BY MOUTH ONCE DAILY hydrALAZINE 50 MG Tablet TAKE 1 TABLET BY MOUTH IN THE MORNING AND 1 IN THE EVENING AND 1 EVERY DAYBEFORE BEDTIME metoprolol Succinate (TOPROL-XL) 100 MG TABLET SR 24 HR Take 100 mg by mouth daily. rosuvastatin (CRESTOR) 5 MG Tablet TAKE 1 TABLET BY MOUTH ONCE DAILY sodium bicarbonate 650 MG Tablet take one orally TID timolol (TIMOPTIC) 0.5 % Solution INSTILL 1 DROP INTO EACH EYE TWICE DAILY No facility-administered encounter medications on file as of 06/17/2024. Labs: No visits with results within 7 Day(s) from this visit. Latest known visit with results is: Lab on 02/19/2024 Component Date Value Ref Range Status IGG 02/19/2024 997 635 - 1,741 mg/dL Final IGA 02/19/2024 196 66 - 433 mg/dL Final IGM 02/19/2024 312 (H) 45 - 281 mg/dL Final WBC 02/19/2024 5.3 4.0 - 10.0 10*3/uL Final HGB 02/19/2024 9.6 (L) 11.2 - 15.7 g/dL Final HCT 02/19/2024 29.9 (L) 34.1 - 44.9 % Final PLT 02/19/2024 160 (L) 163 - 369 10*3/uL Final MPV 02/19/2024 10.3 9.4 - 12.4 fL Final RBC 02/19/2024 3.21 (L) 3.93 - 5.22 10*6/uL Final MCV 02/19/2024 93 79 - 95 fL Final MCH 02/19/2024 29.9 25.6 - 32.2 pg Final MCHC 02/19/2024 32.1 (L) 32.2 - 36.5 g/dL Final RDW 02/19/2024 12.5 11.6 - 14.4 % Final Absolute Neutrophil Count 02/19/2024 3,192 cells/uL Final Absolute Seg Count 02/19/2024 3,192 1,440 - 6,600 cells/uL Final Absolute Lymph Count 02/19/2024 1,330 760 - 4,000 cells/uL Final Absolute Morgan Count 02/19/2024 426 160 - 1,200 cells/uL Final Absolute Eos Count 02/19/2024 372 (H) 0 - 300 cells/uL Final Segmented Neutrophils 02/19/2024 60 36 - 66 % Final Lymphocytes 02/19/2024 25 19 - 40 % Final Monocytes 02/19/2024 8 4 - 12 % Final Eosinophils 02/19/2024 7 (H) 0 - 3 % Final WBC Estimate 02/19/2024 Normal Final Platelet Estimate 02/19/2024 Low Final RBC Morphology 02/19/2024 Normal Final Glucose 02/19/2024 245 (H) 70 - 105 mg/dL Final Blood Urea Nitrogen 02/19/2024 45 (H) 7 - 25 mg/dL Final Creatinine 02/19/2024 3.2 (H) 0.6 - 1.2 mg/dL Final Sodium 02/19/2024 136 136 - 145 mEq/L Final Potassium 02/19/2024 5.2 (H) 3.5 - 5.1 mEq/L Final Chloride 02/19/2024 105 98 - 107 mEq/L Final Bicarbonate 02/19/2024 23 21 - 31 mEq/L Final Total Bilirubin 02/19/2024 0.5 0.3 - 1.0 mg/dL Final Alk. Phosphatase 02/19/2024 53 34 - 104 U/L Final Aspartate Aminotransferase 02/19/2024 18 13 - 39 U/L Final Alanine Aminotransferase 02/19/2024 10 7 - 52 U/L Final Total Protein 02/19/2024 5.8 (L) 6.4 - 8.9 g/dL Final Albumin 02/19/2024 3.4 (L) 3.5 - 5.7 g/dL Final Calcium 02/19/2024 8.6 8.6 - 10.3 mg/dL Final Anion Gap 02/19/2024 13.2 7.0 - 15.0 mEq/L Final Globulin 02/19/2024 2.4 2.0 - 3.5 g/dL Final EGFR 02/19/2024 16 (L) >60 ml/min/1.73m2 Final Comment: This eGFR is calculated using 2020 CKD-EPI Creatinine equation without race modifier based on the NKF-ASN task force recommendations LDH 02/19/2024 157 140 - 271 U/L Final Vitamin B12 02/19/2024 1,381 (H) 180 - 914 pg/mL Final Folate 02/19/2024 12.98 >=5.90 ng/mL Final Ferritin 02/19/2024 67 11 - 307 ng/mL Final IRON 02/19/2024 49 (L) 50 - 212 ug/dL Final UIBC 02/19/2024 190 155 - 355 ug/dL Final TIBC 02/19/2024 239 (L) 261 - 478 ug/dl Final % Saturation 02/19/2024 21 20 - 50 % Final Reticulocyte count 02/19/2024 2.09 (H) 0.50 - 1.70 % Final RET-He 02/19/2024 32.70 28.20 - 36.60 pg Final Comment: RET-He is a direct assessment of incorporation of iron into erythrocyte hemoglobin. It provides an indirect measure of the iron available for new erythropoiesis over past 2-4 days. PROTEIN, TOTAL, SERUM 02/19/2024 5.7 (L) 6.0 - 8.5 G/DL Final ALBUMIN 02/19/2024 3.0 2.9 - 4.4 G/DL Final ORHHY-3-SOAMGPGZ 02/19/2024 0.3 0.0 - 0.4 G/DL Final FZGNQ-2-ROKNWZVX 02/19/2024 0.7 0.4 - 1.0 G/DL Final BETA GLOBULIN 02/19/2024 0.7 0.7 - 1.3 G/DL Final GAMMA GLOBULIN 02/19/2024 1.1 0.4 - 1.8 G/DL Final M-SPIKE 02/19/2024 NOT OBSERVED NOT OBSERVED G/DL Final GLOBULIN, TOTAL 02/19/2024 2.7 2.2 - 3.9 G/DL Final A/G RATIO 02/19/2024 1.1 0.7 - 1.7 Final PLEASE NOTE: 02/19/2024 COMMENT Final Comment: PROTEIN ELECTROPHORESIS SCAN WILL FOLLOW VIA COMPUTER, MAIL, OR PERMIT AGENT DELIVERY. PDF 02/19/2024 . Final IMMUNOFIXATION RESULT, SERUM 02/19/2024 COMMENT: Final Comment: PRESENCE OF MONOCLONAL PROTEIN IS UNCLEAR AT THIS TIME. SUGGEST REPEAT IN 3 TO 6 MONTHS IF CLINICALLY INDICATED. FREE KAPPA LT CHAINS 02/19/2024 142.2 (H) 2.9 - 20.7 mg/L Final FREE LAMBDA LT CHAINS 02/19/2024 132.2 (H) 4.2 - 27.6 mg/L Final KAPPA/LAMBDA RATIO 02/19/2024 1.08 0.22 - 1.74 Final Cosigned by Srinivasa Lee MD at 06/21/2024 2:54 PM CDT documented in this encounter Plan of Treatment Upcoming Encounters Date Type Department Care Team (Late st Contact Info) Description 10/18/2024 1:30 PM SURGICAL GARMENT INSPECTOR Office Visit [facility] [address] [address] Srinivasa Lee MD [address] [place] [address] documented as of this encounter Results * (ABNORMAL) SERUM FREE LIGHT CHAINS, [place] (06/17/2024 2:52 PM CDT) FREE KAPPA LT CHAINS 189.1(H) 2.9 - 20.7 mg/L [facility] FREE LAMBDA LT CHAINS 167.5(H) 4.2 - 27.6 mg/L [facility] KAPPA/LAMBDA RATIO 1.13 0.22 - 1.74 [facility] UX INFORMATION ARCHITECT [facility] 06/17/2024 2:52 PM CDT Narrative CANC[facility] UX INFORMATION ARCHITECT [facility] - 06/18/2024 1:11 PM CDT Release to patient->Immediate Esther Oreilly APRN, EQUINE INTERN LAB SEND OUTS F inal Result Performing Organization Address [facility] Co de Phone Number [facility] [place] [address], [place] [phone] * IMMUNOFIXATION, SERUM [place] (06/17/2024 2:52 PM CDT) IMMUNOFIXATION RESULT, SERUM COMMENT [facility] Comment:NO MONOCLONALITY DET ECTED. 06/17/2024 2:52 PM CDT Narrative [facility] - 06/18/2024 3:10 PM CDT TESTING PERFORMED AT: [] [facility], [address] [place] [address], [address], PHONE: [phone], [employer]: PEGGY AMRCUS, PHD Release to patient->Immediate Esther Oreilly APRN, EQUINE INTERN LAB SEND OUTS F inal Result Performing Organization Address City/[facility] Co de Phone Number [facility] [place] [address], [place] [phone] * (ABNORMAL) ELECTROPHORESIS W/ TOTAL PROTEIN SERUM (06/17/2024 2:52 PM CDT) PROTEIN, TOTAL, SERUM 6.1 6.0 - 8.5 G/DL [facility] ALBUMIN 2.7(L) 2.9 - 4.4 G/DL [facility] [id number]-2-WXGPYBXV 0.3 0.0 - 0.4 G/DL [facility] [place] BQBHZ-9-CPKCMWZH 0.8 0.4 - 1.0 G/DL [facility] [place] BETA GLOBULIN 0.8 0.7 - 1.3 G/DL [facility] [place] GAMMA GLOBULIN 1.5 0.4 - 1.8 G/DL [facility] [place] M-SPIKE NOT OBSERVED NOT OBSERVED G/DL [facility] GLOBULIN, TOTAL 3.4 2.2 - 3.9 G/DL [facility] [place] A/G RATIO 0.8 0.7 - 1.7 [facility] TER SPECIALISTS [facility] PLEASE NOTE: COMMENT [facility] UX INFORMATION ARCHITECT [facility] Comment: PROTEIN ELECTROPHORESIS SCAN WILL FOLLOW VIA COMPUTER, MAIL, OR PERMIT AGENT DELIVERY. PDF . CAN[facility] TER [facility] Blood 06/17/2024 2:52 PM CDT Narrative [facility] - 06/18/2024 3:10 PM CDT TESTING PERFORMED AT: [] LAB[address], [address], PHONE: [phone], [employer]: PEGGY MARCUS, PHD Release to patient->Immediate us Esther Oreilly APRN, EQUINE INTERN CHEMISTRY ORDERAB LES Final Result [facility] [address] [place] [address], * (ABNORMAL) IMMUNOGLOBULIN IGA, IGG & IGM QUANT (06/17/2024 2:52 PM CDT) IGG 1,383 635 - 1,741 mg/dL [facility] [place] IGA 217 66 - 433 mg/dL [facility] IGM 462(H) 45 - 281 mg/dL [facility] Blood 06/17/2024 2:52 PM CDT [facility] - 06/18/2024 1:11 PM CDT Release to patient->Immediate Esther Oreilly APRN, CNP CHEMISTRY ORDERAB LES Final Result Performing Organization Address [facility] Co de Phone Number CANCER UX INFORMATION ARCHITECT [facility] [address] [place] [address], * RETICULOCYTE COUNT (RETIC) (06/17/2024 2:52 PM CDT) Reticulocyte count 1.70 0.50 - 1.70 % [facility] RET-He 29.80 28.20 - 36.60 pg [facility]X INFORMATION ARCH[facility] Comment: RET-He is a direct assessment of incorporation of iron into erythrocyte hemoglobin. It provides an indirect measure of the iron available for new erythropoiesis over past 2-4 days. Blood 06/17/2024 2:[address] [facility] - 06/17/2024 3:03 PM CDT Release to patient->Immediate Esther Oreilly APRN, CHERELLE HEMATOLOGY ORDERA BLES Final Result Performing Organization Address [facility] de Phone Number [facility] [address] [place] [address], * (ABNORMAL) IRON W/ IRON BINDING CAPACITY [place] (06/17/2024 2:52 PM CDT) IRON 25(L) 50 - 212 ug/dL [facility] UIBC 194 155 - 355 ug/dL [facility] TIBC 219(L) 261 - 478 ug/dl [facility] % Saturation 11(L) 20 - 50 % [facility] UX INFORMATION ARCHITECT [facility] 06/17/2024 2:52 PM CDT [facility] - 06/17/2024 3:35 PM CDT Release to patient->Immediate Esther Oreilly APRN, EQUINE INTERN LAB SEND OUTS F inal Result Performing Organization Address [facility]/ZIP Co de Phone Number [facility] Cancer [facility] [address] [place] [address], [place] [phone] * FERRITIN (06/17/2024 2:52 PM CDT) Ferritin 126 11 - 307 ng/mL [facility] Blood 06/17/2024 2:52 PM CDT [facility] - 06/21/2024 7:57 AM CDT Release to patient->Immediate Esther Oreilly APRN, EQUINE INTERN CHEMISTRY ORDERAB LES Final Result Performing Organization Address [facility] Co de Phone Number [facility] [place] [address], [place] [phone] * FOLIC ACID (FOLATE) (06/17/2024 2:52 PM CDT) Folate 8.45 >=5.90 ng/mL [facility] Blood 06/17/2024 2:[address] [facility] - 06/21/2024 7:57 AM CDT Release to patient->Immediate IS THE PATIENT REQUIRED TO BE FASTING FOR 12 HOURS?->No Esther Oreilly APRN, EQUINE INTERN CHEMISTRY ORDERAB LES Final Result Performing Organization Address [facility] Co de Phone Number [facility] [place] [address], * (ABNORMAL) VITAMIN B12 (06/17/2024 2:52 PM CDT) Vitamin B12 1,009(H) 180 - 914 pg/mL [facility] Blood 06/17/2024 2:52 PM CDT Narrative [facility] - 06/21/2024 7:57 AM CDT Release to patient->Immediate Esther Oreilly APRN, EQUINE INTERN CHEMISTRY ORDERAB LES Final Result CANCER UX INFORMATION ARCHITECT [facility] [place] [address], * LACTATE DEHYDROGENASE (LD) (06/17/2024 2:52 PM CDT) LDH 183 140 - 271 U/L [facility] [place] Blood 06/17/2024 2:52 PM CDT Narrative [facility] - 06/17/2024 3:35 PM CDT Release to patient->Immediate Esther Oreilly FURNITURE DELIVERY DRIVER, EQUINE INTERN CHEMISTRY ORDERAB LES Final Result Performing Organization Address City/[facility]/ZIP Co de Phone Number [facility] UX INFORMATION ARCHITECT [facility] [address], * (ABNORMAL) CMP (COMPREHENSIVE METABOLIC PANEL) (06/17/2024 2:52 PM CDT) Glucose 227(H) 70 - 105 mg/dL [facility] [place] Blood Urea Nitrogen 35(H) 7 - 25 mg/dL [facility] [place] Creatinine 2.5(H) 0.6 - 1.2 mg/dL [facility] Sodium 134(L) 136 - 145 mEq/L [facility] Potassium 4.9 3.5 - 5.1 mEq/L [facility] [place] Chloride 103 98 - 107 mEq/L [facility] Bicarbonate 20(L) 21 - 31 mEq/L [facility] Total Bilirubin 0.5 0.3 - 1.0 mg/dL [facility] Alk. Phosphatase 77 34 - 104 U/L [facility] Aspartate Aminotransferase 17 13 - 39 U/L [facility] Alanine Aminotransferase 8 7 - 52 U/L [facility] Total Protein 6.2(L) 6.4 - 8.9 g/dL [facility] [place] Albumin 3.1(L) 3.5 - 5.7 g/dL [facility] Calcium 8.6 8.6 - 10.3 mg/dL [facility] Anion Gap 15.9(H) 7.0 - 15.0 mEq/L [facility] Globulin 3.1 2.0 - 3.5 g/dL [facility] [place] EGFR 21(L) >60 ml/min/1. 73m2 [facility] [place] Comment: This eGFR is calculated using 2020 CKD-EPI Creatinine equation without race modifier based on the NKF-ASN task force recommendations Blood 06/17/2024 2:52 PM CDT Narrative [facility] [place] - 06/17/2024 3:35 PM CDT Release to patient->Immediate IS THE PATIENT REQUIRED TO BE FASTING FOR 8 HOURS?->No us Esther Oreilly APRN, CHERELLE CHEMISTRY ORDERAB LES Final Result [facility] [place] [facility] [address] [place] [address], documented in this encounter Visit Diagnoses Diagnosis Hypogammaglobulinemia (HCC)- Primary Hypogammaglobulinaemia, unspecified 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) Iron deficiency Other disorders of iron metabolism Hypogammaglobulinemia (HCC) Hypogammaglobulinaemia, unspecified 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) Iron deficiency Other disorders of iron metabolism documented in this encounter Additional Health Concerns Assessment Noted Time PHQ-9 Depression Total Score: 0 03/08/20 21 11:06 AM CDT documented as of this encounter Care Teams Water Filtration Technician Relationship Specialty Start Date End Date Jonatan Worley [address] [place] [address] PCP - General Family Medicine 07/12/20 Srinivasa Lee MD [address] [place] [address] Consulting Physician Oncology 07/12/20 documented as of this encounter
--- OUTSIDE RECORDS SUMMARY | 2024-08-29 03:45 | XMS_ITS | Encounter Summary ---
Author Organization [employer] Care Team Providers Care Crawler Dragline Operator Name Role Phone Jonatan Worley Primary Care Provider [phone] Srinivasa Lee MD Unavailable [phone] Encounter Details Date Type Department Care Team (Latest Contact Info) Description 03/07/2023 Travel Social History Tobacco Use Types Packs/Day Years [...] on file Legal Sex Female 11:51 AM NURSING CARE PARTNER Gender Identity Not on file Sexual Orientation Not on file COVID-19 Exposure Response Date Recorded In the last 10 days, have yo u been in contact with someone who was confirmed or suspected to have Coronavirus/COVID-19? No / Unsure 03/07/2023 9:28 AM CDT documented as of this encounter Functional Status * Question Answer Date of Assessment Author Little interest or pleasure in doing things Not at all 03/07/2023 9:42 AM CDT Diana Maldonado RN Feeling down, depressed, or hopeless Not at all 03/07/2023 9:42 AM CDT Diana Maldonado RN * Over the past 2 weeks, how often have you been bothered by any of the following problems? Question Answer Date of Assessment Author Patient Health Questionnaire -2 Score 0 03/07/2023 9:42 AM CDT Diana Maldonado RN documented as of this encounter Plan of Treatment Upcoming Encounters Date Type Department Care Team (Late st Contact Info) Description 10/18/2024 1:30 PM NURSING CARE PARTNER Office Visit [facility] [address] [place] [phone] Srinivasa Lee MD [address] [facility] [address] [place] [address] documented as of this encounter Visit Diagnoses Not on filedocumented in this encounter Additional Health Concerns Assessment Noted Time PHQ-9 Depression Total Score: 0 03/08/20 21 11:06 AM CDT documented as of this encounter Care Teams Crawler Dragline Operator Relationship Specialty Start Date End Date Jonatan Worley [address] [place] [address] PCP - General Family Medicine 07/12/20 Srinivasa Lee MD [address] [place] [phone] Consulting Physician Oncology 07/12/20 documented as of this encounter
--- OUTSIDE RECORDS SUMMARY | 2024-08-29 03:45 | XMS_ITS | Encounter Summary ---
Author Organization [facility] Address [address] [place] [address] Phone Care Team Providers Care Pediatric Cardiologist Name Role Phone Jonatan Worley Primary Care Provider [phone] Srinivasa Lee MD Unavailable [phone] Encounter Details Date Type Department Care Team (Latest Contact Info) Description 12/06/2022 10:20 AM CDT Lab [facility] [address] [address] Lab, [facility] [place] Hypogammaglobulinemia (HCC); Anemia of unknown etiology Social History Tobacco Use Types Packs/Day Years [...] on file 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 Question Answer Date of Assessment Author Patient Health Questionnaire -2 Score 0 12/06/2022 9:36 AM CDT Peggy Naranjo CMA documented as of this encounter Plan of Treatment Upcoming Encounters Date Type Department Care Team (Late st Contact Info) Description 10/18/2024 1:30 PM ONLINE MARKETING DIRECTOR Office [facility] [address] [address] Srinivasa Lee MD [address] [place] [address] [place] [phone] documented as of this encounter Procedures Procedure Name Priority Date/Time Associated Diagnosis Comments IRON W/ IRON BINDING CAPACITY OH Routine 12/06/2022 10:18 AM CDT Hypogammaglobuline ellen (HCC) Anemia of unknown etiology IMMUNOFIXATION, SERUM OH Routine 12/06/2022 10:18 AM CDT Hypogammaglobuline ellen (HCC) Anemia of unknown etiology FREE KAPPA & LAMBDA LIGHT CHAINS SERUM Routine 12/06/2022 10:18 AM CDT Hypogammaglobuline ellen (HCC) Anemia of unknown etiology VITAMIN B12 Routine 12/06/2022 10:18 AM CDT Hypogammaglobuline ellen (HCC) Anemia of unknown etiology LACTATE DEHYDROGENASE (LD) Routine 12/06/2022 10:18 AM CDT Hypogammaglobuline ellen (HCC) Anemia of unknown etiology IMMUNOGLOBULIN IGA, IGG & IGM QUANT Routine 12/06/2022 10:18 AM CDT Hypogammaglobuline ellen (HCC) Anemia of unknown etiology FERRITIN Routine 12/06/2022 10:18 AM CDT Hypogammaglobuline ellen (HCC) Anemia of unknown etiology ELECTROPHORESIS W/ TOTAL PROTEIN SERUM Routine 12/06/2022 10:18 AM CDT Hypogammaglobuline ellen (HCC) Anemia of unknown etiology CMP (COMPREHENSIVE METABOLIC PANEL) Routine 12/06/2022 10:18 AM CDT Hypogammaglobuline ellen (HCC) Anemia of unknown etiology COMPLETE BLOOD COUNT (CBC) WITH DIFF Routine 12/06/2022 10:18 AM CDT Hypogammaglobuline ellen (HCC) Anemia of unknown etiology BETA 2 MICROGLOBULIN Routine 12/06/2022 10:18 AM CDT Hypogammaglobuline ellen (HCC) Anemia of unknown etiology documented in this encounter Results * (ABNORMAL) COMPLETE BLOOD COUNT (CBC) WITH DIFF (12/06/2022 10:18 AM CDT) WBC 12.2(H) 4.0 - 10.0 10*3/uL [facility] HGB 10.4(L) 11.2 - 15.7 g/dL [facility] HCT 30.7(L) 34.1 - 44.9 % [facility] PLT 194 163 - 369 10*3/uL [facility] MPV 11.1 9.4 - 12.4 fL [facility] RBC 3.52(L) 3.93 - 5.22 10*6/uL [facility] MCV 87 79 - 95 fL [facility] MCH 29.5 25.6 - 32.2 pg [facility] MCHC 33.9 32.2 - 36.5 g/dL [facility] RDW 12.4 11.6 - 14.4 % [facility] Absolute Neutrophil Count 9,485 cells/uL [facility] Absolute Seg Count 9,485(H) 1,440 - 6,600 cells/uL [facility] Absolute Lymph Count 973 760 - 4,000 cells/uL [facility] Absolute [place] Count 608 160 - 1,200 cells/uL [facility] Absolute Eos Count 1,094(H) 0 - 300 cells/uL [facility] Segmented Neutrophils 78(H) 36 - 66 % [facility] Lymphocytes 8(L) 19 - 40 % [facility] Monocytes 5 4 - 12 % [facility] Eosinophils 9(H) 0 - 3 % [facility] WBC Estimate High [facility] Platelet Estimate Normal [facility] RBC Morphology Normal [facility] Blood 12/06/2022 10:1 8 AM CDT Narrative [facility] - 12/06/2022 1:29 PM CDT Release to patient->Immediate Buzz [employer] PAC HEMATOLOGY ORDERABLES Kym l Result [facility] [address] [place] [address], * (ABNORMAL) CMP (COMPREHENSIVE METABOLIC PANEL) (12/06/2022 10:18 AM CDT) Glucose 230(H) 70 - 105 mg/dL [facility] Blood Urea Nitrogen 53(H) 7 - 25 mg/dL [facility] Creatinine 2.9(H) 0.6 - 1.2 mg/dL [facility] Sodium 138 136 - 145 mEq/L [facility] Potassium 5.6(HH) 3.5 - 5.1 mEq/L [facility] Comment: Critical Result reported to Ely Lai on 12/06/2022 11:13 by ? Kaur Waller. Results were read back to caller. Chloride 109(H) 98 - 107 mEq/L [facility] Bicarbonate 22 21 - 31 mEq/L [facility] Total Bilirubin 0.4 0.3 - 1.0 mg/dL [facility] Alk. Phosphatase 64 34 - 104 U/L [facility] Aspartate Aminotransferase 16 13 - 39 U/L [facility] Alanine Aminotransferase 11 7 - 52 U/L [facility] Total Protein 5.8(L) 6.4 - 8.9 g/dL [facility] Albumin 3.5 3.5 - 5.7 g/dL [facility] Calcium 8.9 8.6 - 10.3 mg/dL [facility] Anion Gap 12.6 7.0 - 15.0 mEq/L [facility] Globulin 2.3 2.0 - 3.5 g/dL [facility] EGFR 18(L) >60 ml/min/1. 73m2 [facility] Comment: This eGFR is calculated using 2020 CKD-EPI Creatinine equation without race modifier based on the NKF-ASN task force recommendations Blood 12/06/2022 10:1 8 AM CDT [facility] - 12/06/2022 11:13 AM CDT Release to patient->Immediate IS THE PATIENT REQUIRED TO BE FASTING FOR 8 HOURS?->No Buzz [employer] PAC CHEMISTRY ORDERABLES Final Result Performing Organization Address [facility] Co de Phone Number [facility] [place] [address], * LACTATE DEHYDROGENASE (LD) (12/06/2022 10:18 AM CDT) LDH 162 140 - 271 U/L [facility] Blood 12/06/2022 10:1 8 AM CDT [facility] - 12/06/2022 11:12 AM CDT Release to patient->Immediate [facility] PAC CHEMISTRY ORDERABLES Final Result Performing Organization Address City/[facility]/ZIP Co de Phone Number [facility] [place] [address], * (ABNORMAL) IRON W/ IRON BINDING CAPACITY [place] (12/06/2022 10:18 AM CDT) IRON 49(L) 50 - 212 ug/dL [facility] UIBC 212 155 - 355 ug/dL [facility] TIBC 261 261 - 478 ug/dl [facility] % Saturation 19(L) 20 - 50 % [facility] Blood 12/06/2022 10:1 8 AM CDT [facility] - 12/06/2022 11:12 AM CDT Release to patient->Immediate us Buzz Sales PAC LAB SEND OUTS Final Resu lt [facility] [address] [place] [id number], [place] [phone] * FERRITIN (12/06/2022 10:18 AM CDT) Ferritin 52 11 - 307 ng/mL [facility] Blood 12/06/2022 10:1 8 AM CDT [facility] 12/06/2022 2:36 PM CDT Release to patient->Immediate us Buzz Sales PAC CHEMISTRY ORDERABLES Final Result Performing Organization Address City/[facility]/ZIP Co de Phone Number [facility] [address] [place] [address], [place] [phone] * VITAMIN B12 (12/06/2022 10:18 AM CDT) Vitamin B12 265 180 - 914 pg/mL [facility] Blood 12/06/2022 10:1 8 AM CDT [facility] 12/06/2022 2:36 PM CDT Release to patient->Immediate us Buzz Sales PAC CHEMISTRY ORDERABLES Final Result [facility] [address] [place] [address], [place] [phone] * IMMUNOGLOBULIN IGA, IGG & IGM QUANT (12/06/2022 10:18 AM CDT) IGG 762 635 - 1,741 mg/dL [facility] IGA 210 66 - 433 mg/dL [facility] IGM 57 45 - 281 mg/dL [facility] Blood 12/06/2022 10:1 8 AM CDT Narrative [facility] 12/06/2022 2:24 PM CDT Release to patient->Immediate Buzz Sales PAC CHEMISTRY ORDERABLES Final Result [facility] [address] [place] [address], * (ABNORMAL) ELECTROPHORESIS W/ TOTAL PROTEIN SERUM (12/06/2022 10:18 AM CDT) PROTEIN, TOTAL, SERUM 5.9(L) 6.0 - 8.5 G/DL [facility] ALBUMIN 3.1 2.9 - 4.4 G/DL [facility] [id number] 0.3 0.0 - 0.4 G/DL [facility] [id number]-6-[id number] 0.8 0.4 - 1.0 G/DL [facility] BETA GLOBULIN 0.9 0.7 - 1.3 G/DL [facility] GAMMA GLOBULIN 0.7 0.4 - 1.8 G/DL [facility] M-SPIKE NOT OBSERVED NOT OBSERVED G/DL [facility] GLOBULIN, TOTAL 2.8 2.2 - 3.9 G/DL [facility] A/G RATIO 1.1 0.7 - 1.7 [facility] PLEASE NOTE: COMMENT [facility] Comment: PROTEIN ELECTROPHORESIS SCAN WILL FOLLOW VIA COMPUTER, MAIL, OR POLITICAL THEORY PROFESSOR DELIVERY. PDF . [facility] Blood 12/06/2022 10:1 8 AM CDT Narrative [facility] - 12/09/2022 3:09 PM CDT [facility]FORMED AT: [] [facility], [address] [place], [address], PHONE: [phone], SUPERVISOR TUBING: PEGGY MARCUS, PHD Release to patient->Immediate Buzz Sales PAC CHEMISTRY ORDERABLES Final Result Performing Organization Address City/[facility]/ZIP Co de Phone Number [facility] * IMMUNOFIXATION, SERUM [place] (12/06/2022 10:18 AM CDT) IMMUNOFIXATION RESULT, SERUM COMMENT [facility] Comment:NO MONOCLONALITY DET ECTED. 12/06/2022 10:1 8 AM CDT Narrative [facility] - 12/09/2022 1:08 PM CDT TESTING PERFORMED AT: [] [facility], [address] [place], [address], PHONE: [phone], SUPERVISOR TUBING: PEGGY MARCUS, PHD Release to patient->Immediate Buzz Sales [facility] SEND OUTS Final Resu lt Performing Organization Address City/[facility]/ZIP Co de Phone Number [facility] * (ABNORMAL) FREE KAPPA & LAMBDA LIGHT CHAINS SERUM (12/06/2022 10:18 AM CDT) FREE KAPPA LT CHAINS,S 108.7(H) 3.3 - 19.4 MG/L [facility] FREE LAMBDA LT CHAINS,S 49.1(H) 5.7 - 26.3 MG/L [facility] FREE KAPPA/FREE LAMBDA RATIO LT CHAINS 2.21(H) 0.26 - 1.65 [facility] Blood 12/06/2022 10:1 8 AM CDT Narrative [facility] - 12/09/2022 8:14 PM CDT TESTING PERFORMED AT: [] [facility], [address] [place], [address], PHONE: [phone], SUPERVISOR TUBING: PEGGY MARCUS, PHD Release to patient->Immediate Buzz Sales PAC CHEMISTRY ORDERABLES Final Result [facility] * (ABNORMAL) BETA 2 MICROGLOBULIN (12/06/2022 10:18 AM CDT) [id number] 9.72(H) 0.97 - 1.84 mg/L [facility] Blood 12/06/2022 10:1 8 AM CDT Narrative [facility] - 12/06/2022 2:06 PM CDT Release to patient->Immediate Buzz Sales PAC CHEMISTRY ORDERABLES Final Result Performing Organization Address City/[facility] Co de Phone Number [facility] [address] [place] [address], documented in this encounter Visit Diagnoses Diagnosis Hypogammaglobulinemia (HCC) Hypogammaglobulinaemia, unspecified Anemia of unknown etiology Anemia, unspecified documented in this encounter Additional Health Concerns Assessment Noted Time PHQ-9 Depression Total Score: 0 03/08/20 21 11:06 AM CDT documented as of this encounter Care Teams Pediatric Cardiologist Relationship Specialty Start Date End Date Jonatan Worley [address] [place] [address] PCP - General Family Medicine 07/12/20 Srinivasa Lee MD [address] [place] [address] Consulting Physician Oncology 07/12/20 documented as of this encounter
--- OUTSIDE RECORDS SUMMARY | 2024-08-29 03:45 | XMS_ITS | Encounter Summary ---
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 No / Unsure 06/12/2023 2:04 PM CDT documented as of this encounter Functional Status * Question Answer Date of Assessment Author Little interest or pleasure in doing things Not at all 06/12/2023 2:21 PM CDT Armando Billingsley RN Feeling down, depressed, or hopeless Not at all 06/12/2023 2:21 PM CDT Armando Billingsley RN * Over the past 2 weeks, how often have you been bothered by any of the following problems? Question Answer Date of Assessment Author Patient Health Questionnaire-2 Score 0 05/25 2:21 PM CDT Armando Billingsley RN documented as of this encounter Plan of Treatment Upcoming Encounters Date Type Department Care Team (Late st Contact Info) Description 10/18/2024 1:30 PM SHEET HEATER HELPER Office Visit [facility] [address] [place] [phone] Srinivasa Lee MD [address] [facility] [address] [place] [address] documented as of this encounter Visit Diagnoses Not on filedocumented in this encounter Additional Health Concerns Assessment Noted Time PHQ-9 Depression Total Score: 0 03/08/20 11:06 AM CDT documented as of this encounter Care Teams Orthopedic Mechanic Relationship Specialty Start Date End Date Jonatan Worley [address] [place] [address] PCP - General Family Medicine 07/12/20 Srinivasa Lee MD [address] [place] [phone] Consulting Physician Oncology 07/12/20 documented as of this encounter
--- OUTSIDE RECORDS SUMMARY | 2024-08-29 03:45 | XMS_ITS | Encounter Summary ---
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) (Primary Dx); Hypogammaglobulinemi a (HCC); Iron deficiency Social History Tobacco Use [...] on file Legal Sex Female 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 Gender Identity Not on file Sexual Orientation Not on file documented as of this encounter Last Filed Vital Signs Vital Sign Reading Time Taken Comments Blood Pressure 122/70 02/19/2024 1:54 PM CDT Pulse 69 02/19/2024 1:54 PM CDT Temperature 36.8 ??C (98.2 ??F) 02/19/2024 1:54 PM CD T Respiratory Rate 18 02/19/2024 1:54 PM CDT Oxygen Saturation 97% 02/19/2024 1:54 PM CDT Inhaled Oxygen Concentration - - Weight 100.4 kg (221 lb 4.8 oz) 02/19/2024 1:54 PM CDT Height 170.2 cm (5' 7 ) 02/19/2024 1:54 PM CDT Body Mass Index 34.66 02/19/2024 1:54 PM CDT documented in this encounter Functional Status * Question Answer Date of Assessment Author Little interest or pleasure in doing things Not at all 02/19/2024 1:54 PM CDT Jatin Napier CMA Feeling down, depressed, or hopeless Not at all 02/19/2024 1:54 PM CDT Deyanira Napier CMA * Over the past 2 weeks, how often have you been bothered by any of the following problems? Question Answer Date of Assessment Author Patient Health Questionnaire-2 Score 0 02/19/2024 1:54 PM CDT Tereza Napier CMA documented as of this encounter Progress Notes * Rosalina Vázquez APRN, CNP - 02/19/2024 2:00 PM CDT Images from the original note were not included. Patient: Arely Ernandez Age: 63 y.o. : 1960 Encounter Dept: [facility] Encounter Date: 02/19/2024 Care Team: Current Providers PCP: Jonatan Worley Care Team Provider: Srinivasa Lee MD Encounter Provider: Rosalina Vázquez APRN, CNP Referring Provider: not found Nurse Practitioner: Rosalina Vázquez APRN, CNP HISTORY OF PRESENT ILLNESS: Arely returns today for followup for anemia secondary to chronic kidney disease and hypogammaglobulinemia. The patient states she is doing well since last visit. She denies any fevers, chills or night sweats, unintentional weight loss, recurrent infections or hospital izations. She denies any episodes of melena, hematochezia or any other bleeding episodes. She continues on oral ferrous sulfate 325 mg daily and states she is tolerating this well. She continues to eat and drink well. Her weight is stable. The patient has no complaints at this time. DIAGNOSIS: 1. Hypogammaglobulinemia 2. Anemia. 3. Chronic [...] cancer screening discussed with the patient. PLAN: 1. Repeat labs today including CBC, CMP, folic acid, B12, iron studies and myeloma panel. We will advise the patient if any additional IV iron is indicated. 2. As long as hemoglobin remains stable, we will continue oral iron and not consider erythropoietin. If there is a trend to her being transfusion dependent, we will consider EPO. 3. Followup in four months to repeat labs and evaluation. 4. Call in the interim for questions, problems or concerns. Dr. Lee present in the office. TIME SPENT: PAST MEDICAL HISTORY, PAST SURGICAL [...] Laboratory evaluation reviewed per Care Everywhere. MD Rosalina Arriola, DNP, HOTEL ASSISTANT MANAGER-/[facility] Vitals: Vitals: 02/19/24 1354 BP: 122/70 BP Location: Left Arm BP Position: Sitting BP Cuff Size: Large Pulse: 69 Resp: 18 Temp: 98.2 ??F (36.8 ??C) TempSrc: Temporal SpO2: 97% Weight: 221 lb 4.8 oz (100.4 kg) Height: 5' 7 (1.702 m) Body surface area is 2.18 meters squared. Body mass index is 34.66 kg/m??. Pain Score: 0 - No pain [...] Current Medications: Outpatient Encounter Medications as of 02/19/2024 Medication Sig Dispense Refill amLODIPine (NORVASC) 5 MG Tablet TAKE 1 TABLET BY MOUTH ONCE DAILY [DISCONTINUED] aspirin 81 MG Chewable Tablet Take 81 mg by mouth daily. brimonidine (ALPHAGAN) 0.2 % Solution INSTILL 1 DROP INTO EACH EYE TWICE DAILY Cholecalciferol 2000 UNIT Capsule Take 2,000 Units by mouth. Cyanocobalamin (VITAMIN B-12) 1000 MCG Tablet Take 1,000 mcg by mouth. Dapagliflozin Propanediol (Farxiga) 10 MG Tablet Take 1 Tablet by mouth. dorzolamide (TRUSOPT) 2 % Solution INSTILL 1 DROP INTO RIGHT EYE 4 TIMES DAILY ergocalciferol (VITAMIN D) 91567 UNIT Capsule ferrous sulfate 325 (65 Fe) MG Tablet Take 325 mg by mouth. [DISCONTINUED] ferrous sulfate 325 (65 Fe) MG Tablet Take 1 Tablet by mouth daily. 30 Tablet 2 glimepiride (AMARYL) 2 MG Tablet Take 2 [...] facility-administered encounter medications on file as of 02/19/2024. Labs: No visits with results within 7 Day(s) from this visit. Latest known visit with results is: Lab on 10/23/2023 Component Date Value Ref Range Status IRON 10/23/2023 58 50 - 212 ug/dL Final UIBC 10/23/2023 186 155 - 355 ug/dL Final TIBC 10/23/2023 244 (L) 261 - 478 ug/dl Final % Saturation 10/23/2023 24 20 - 50 % Final Ferritin 10/23/2023 82 11 - 307 ng/mL Final Folate 10/23/2023 12.59 >=5.90 ng/mL Final Vitamin B12 10/23/2023 1,281 (H) 180 - 914 pg/mL Final LDH 10/23/2023 158 140 - 271 U/L Final Glucose 10/23/2023 200 (H) 70 - 105 mg/dL Final Blood Urea Nitrogen 10/23/2023 54 (H) 7 - 25 mg/dL Final Creatinine 10/23/2023 2.8 (H) 0.6 - 1.2 mg/dL Final Sodium 10/23/2023 134 (L) 136 - 145 mEq/L Final Potassium 10/23/2023 5.3 (H) 3.5 - 5.1 mEq/L Final Chloride 10/23/2023 108 (H) 98 - 107 mEq/L Final Bicarbonate 10/23/2023 19 (L) 21 - 31 mEq/L Final Total Bilirubin 10/23/2023 0.4 0.3 - 1.0 mg/dL Final Alk. Phosphatase 10/23/2023 61 34 - 104 U/L Final Aspartate Aminotransferase 10/23/2023 18 13 - 39 U/L Final Alanine Aminotransferase 10/23/2023 14 7 - 52 U/L Final Total Protein 10/23/2023 5.7 (L) 6.4 - 8.9 g/dL Final Albumin 10/23/2023 3.4 (L) 3.5 - 5.7 g/dL Final Calcium 10/23/2023 8.3 (L) 8.6 - 10.3 mg/dL Final Anion Gap 10/23/2023 12.3 7.0 - 15.0 mEq/L Final Globulin 10/23/2023 2.3 2.0 - 3.5 g/dL Final EGFR 10/23/2023 19 (L) >60 ml/min/1.73m2 Final Comment: This eGFR is calculated using 2020 CKD-EPI Creatinine equation without race modifier based on the NKF-ASN task force recommendations Reticulocyte count 10/23/2023 1.63 0.50 - 1.70 % Final RET-He 10/23/2023 33.30 28.20 - 36.60 pg Final Comment: RET-He is a direct assessment of incorporation of iron into erythrocyte hemoglobin. It provides an indirect measure of the iron available for new erythropoiesis over past 2-4 days. WBC 10/23/2023 8.1 4.0 - 10.0 10*3/uL Final HGB 10/23/2023 9.6 (L) 11.2 - 15.7 g/dL Final HCT 10/23/2023 29.6 (L) 34.1 - 44.9 % Final PLT 10/23/2023 166 163 - 369 10*3/uL Final MPV 10/23/2023 10.7 9.4 - 12.4 fL Final RBC 10/23/2023 3.23 (L) 3.93 - 5.22 10*6/uL Final MCV 10/23/2023 92 79 - 95 fL Final MCH 10/23/2023 29.7 25.6 - 32.2 pg Final MCHC 10/23/2023 32.4 32.2 - 36.5 g/dL Final RDW 10/23/2023 13.2 11.6 - 14.4 % Final Neutrophils % 10/23/2023 48.6 36.0 - 66.0 % Final Lymphocytes % 10/23/2023 37.8 19.0 - 40.0 % Final Monocytes % 10/23/2023 7.3 4.1 - 12.1 % Final Eosinophils % 10/23/2023 5.5 (H) 0.0 - 3.5 % Final Basophils % 10/23/2023 0.6 0.0 - 1.0 % Final Absolute Neutrophils 10/23/2023 4.0 1.4 - 6.6 10*3/uL Final Absolute Lymphocytes 10/23/2023 3.1 0.8 - 4.0 10*3/uL Final Absolute Monocytes 10/23/2023 0.6 0.2 - 1.2 10*3/uL Final Absolute Eosinophils 10/23/2023 0.5 (H) 0.0 - 0.4 10*3/uL Final Absolute Basophils 10/23/2023 0.1 0.0 - 0.1 10*3/uL Final Cosigned by Srinivasa Lee MD at 02/24/2024 10:42 AM CDT documented in this encounter Plan of Treatment Upcoming Encounters Date Type Department Care Team (Late st Contact Info) Description 10/18/2024 1:30 PM SPACE CONTROLLER Office Visit [facility] [address] [place] [phone] Srinivasa Lee MD [facility] [place], [place] [address] documented as of this encounter Results * (ABNORMAL) IMMUNOGLOBULIN IGA, IGG & IGM QUANT (02/19/2024 2:23 PM CDT) Pathologist [facility] IGG 997 635 - 1,741 mg/dL [facility] IGA 196 66 - 433 mg/dL [facility] IGM 312(H) 45 - 281 mg/dL [facility] Blood 02/19/2024 2:23 PM CDT Narrative [facility] - 02/20/2024 4:01 PM CDT Release to patient->Immediate us Rosalina Vázquez APRN, ASSEMBLER PRODUCT CHEMISTRY ORDERABLE S Final Result [facility] [address] [place] [address], * IMMUNOFIXATION, SERUM [place] (02/19/2024 2:23 PM CDT) IMMUNOFIXATION RESULT, SERUM COMMENT: [facility] Comment: PRESENCE OF MONOCLONAL PROTEIN IS UNCLEAR AT THIS TIME. SUGGEST REPEAT IN 3 TO 6 MONTHS IF CLINICALLY INDICATED. 02/19/2024 2:23 PM CDT Narrative [facility] - 02/20/2024 3:09 PM CDT TESTING PERFORMED AT: [] [facility], [address] [place] [address], [address], PHONE: [phone], CHICKEN HANDLER: PEGGY MARCUS, PHD Release to patient->Immediate Rosalina Vázquez APRN, CNP LAB SEND OUTS Fin al Result [facility] [address] [place] [address], [place] [phone] * (ABNORMAL) ELECTROPHORESIS W/ TOTAL PROTEIN SERUM (02/19/2024 2:23 PM CDT) PROTEIN, TOTAL, SERUM 5.7(L) 6.0 - 8.5 G/DL [facility] ALBUMIN 3.0 2.9 - 4.4 G/DL [facility] [id number] 0.3 0.0 - 0.4 G/DL [facility] [id number]-2-[id number] 0.7 0.4 - 1.0 G/DL [facility] BETA GLOBULIN 0.7 0.7 - 1.3 G/DL [facility] GAMMA GLOBULIN 1.1 0.4 - 1.8 G/DL [facility] M-SPIKE NOT OBSERVED NOT OBSERVED G/DL [facility] GLOBULIN, TOTAL 2.7 2.2 - 3.9 G/DL [facility] A/G RATIO 1.1 0.7 - 1.7 [facility] PLEASE NOTE: COMMENT [facility] Comment: PROTEIN ELECTROPHORESIS SCAN WILL FOLLOW VIA COMPUTER, MAIL, OR HEAD BAKER DELIVERY. PDF . [facility] Blood 02/19/2024 2:23 PM CDT Narrative [facility] - 02/20/2024 1:09 PM CDT TESTING PERFORMED AT: [] [facility], [address], [place], [address], PHONE: [phone], CHICKEN HANDLER: PEGGY MARCUS, PHD Release to patient->Immediate Rosalina E Demattei ASSISTANT CORPORATION COUNSEL, ASSEMBLER PRODUCT CHEMISTRY ORDERABLE S Final Result Performing Organization Address [facility] Co de Phone Number [facility] [address] [place] [address], [place] [phone] * (ABNORMAL) RETICULOCYTE COUNT (RETIC) (02/19/2024 2:23 PM CDT) Reticulocyte count 2.09(H) 0.50 - 1.70 % [facility] RET-He 32.70 28.20 - 36.60 pg [facility] Comment: RET-He is a direct assessment of incorporation of iron into erythrocyte hemoglobin. It provides an indirect measure of the iron available for new erythropoiesis over past 2-4 days. Blood 02/19/2024 2:23 PM CDT Narrative [facility]ILL [facility] - 02/19/2024 2:33 PM CDT Release to patient->Immediate Rosalina Vázquez APRN, CNP HEMATOLOGY ORDERABL ES Final Result Performing Organization Address [facility] Co de Phone Number [facility] [address] [place] [address], [place] [phone] * (ABNORMAL) IRON W/ IRON BINDING CAPACITY [place] (02/19/2024 2:23 PM CDT) IRON 49(L) 50 - 212 ug/dL [facility] UIBC 190 155 - 355 ug/dL [facility] TIBC 239(L) 261 - 478 ug/dl [facility] % Saturation 21 20 - 50 % [facility] 02/19/2024 2:23 PM CDT [facility] - 02/19/2024 3:17 PM CDT Release to patient->Immediate us Rosalina Vázquez APRN, ASSEMBLER PRODUCT LAB SEND OUTS Fin al Result Performing Organization Address City/[facility]/ZIP Co de Phone Number [facility] [place] [address] [place] [address], * FERRITIN (02/19/2024 2:23 PM CDT) Ferritin 67 11 - 307 ng/mL [facility] Blood 02/19/2024 2:23 PM CDT Narrative [facility] - 02/20/2024 3:26 PM CDT Release to patient->Immediate Rosalina Jalil Romoei ASSISTANT CORPORATION COUNSEL, ASSEMBLER PRODUCT CHEMISTRY ORDERABLE S Final Result [facility] [address] [place] [address], * FOLIC ACID (FOLATE) (02/19/2024 2:23 PM CDT) Folate 12.98 >=5.90 ng/mL [facility] Blood 02/19/2024 2:23 PM CDT Narrative [facility] - 02/20/2024 3:26 PM CDT Release to patient->Immediate IS THE PATIENT REQUIRED TO BE FASTING FOR 12 HOURS?->No us Rosalina Romoei ASSISTANT CORPORATION COUNSEL, ASSEMBLER PRODUCT CHEMISTRY ORDERABLE S Final Result [facility] [address] [place] [address], [place] [phone] * (ABNORMAL) VITAMIN B12 (02/19/2024 2:23 PM CDT) Vitamin B12 1,381(H) 180 - 914 pg/mL [facility] Blood 02/19/2024 2:23 PM CDT Narrative [facility] - 02/20/2024 3:26 PM CDT Release to patient->Immediate us Rosalina Vázquez APRN, CHERELLE CHEMISTRY ORDERABLE S Final Result Performing Organization Address City/[facility]/ZIP Co de Phone Number [facility] [address] [address], [place] [phone] * LACTATE DEHYDROGENASE (LD) (02/19/2024 2:23 PM CDT) LDH 157 140 - 271 U/L [facility] Blood 02/19/2024 2:23 PM CDT Narrative [facility] - 02/19/2024 3:17 PM CDT Release to patient->Immediate Rosalina Vázquez APRN, ASSEMBLER PRODUCT CHEMISTRY ORDERABLE S Final Result Performing Organization Address [facility] Co de Phone Number [facility] [place] [address], [place] [phone] * (ABNORMAL) CMP (COMPREHENSIVE METABOLIC PANEL) (02/19/2024 2:23 PM CDT) Glucose 245(H) 70 - 105 mg/dL [facility] Blood Urea Nitrogen 45(H) 7 - 25 mg/dL [facility] Creatinine 3.2(H) 0.6 - 1.2 mg/dL [facility] Sodium 136 136 - 145 mEq/L [facility] Potassium 5.2(H) 3.5 - 5.1 mEq/L [facility] Chloride 105 98 - 107 mEq/L [facility] Bicarbonate 23 21 - 31 mEq/L [facility] Total Bilirubin 0.5 0.3 - 1.0 mg/dL [facility] Alk. Phosphatase 53 34 - 104 U/L [facility] Aspartate Aminotransferase 18 13 - 39 U/L [facility] Alanine Aminotransferase 10 7 - 52 U/L [facility] Total Protein 5.8(L) 6.4 - 8.9 g/dL [facility] Albumin 3.4(L) 3.5 - 5.7 g/dL [facility] Calcium 8.6 8.6 - 10.3 mg/dL [facility] Anion Gap 13.2 7.0 - 15.0 mEq/L [facility] Globulin 2.4 2.0 - 3.5 g/dL [facility] EGFR 16(L) >60 ml/min/1. 73m2 [facility] Comment: This eGFR is calculated using 2020 CKD-EPI Creatinine equation without race modifier based on the NKF-ASN task force recommendations Blood 02/19/2024 2:23 PM CDT Narrative [facility] - 02/19/2024 3:17 PM CDT Release to patient->Immediate IS THE PATIENT REQUIRED TO BE FASTING FOR 8 HOURS?->No us Rosalina Vázquez ASSISTANT CORPORATION COUNSEL, ASSEMBLER PRODUCT CHEMISTRY ORDERABLE S Final Result [facility] [address] [place] [address], [place] [phone] * (ABNORMAL) COMPLETE BLOOD COUNT (CBC) WITH DIFF (02/19/2024 2:23 PM CDT) WBC 5.3 4.0 - 10.0 10*3/uL [facility] HGB 9.6(L) 11.2 - 15.7 g/dL [facility] HCT 29.9(L) 34.1 - 44.9 % [facility] PLT 160(L) 163 - 369 10*3/uL [facility] MPV 10.3 9.4 - 12.4 fL [facility] RBC 3.21(L) 3.93 - 5.22 10*6/uL [facility] MCV 93 79 - 95 fL [facility] MCH 29.9 25.6 - 32.2 pg [facility] MCHC 32.1(L) 32.2 - 36.5 g/dL [facility] RDW 12.5 11.6 - 14.4 % [facility] Absolute Neutrophil Count 3,192 cells/uL [facility] Absolute Seg Count 3,192 1,440 - 6,600 cells/uL [facility] Absolute Lymph Count 1,330 760 - 4,000 cells/uL [facility] Absolute Nelson Count 426 160 - 1,200 cells/uL [facility] Absolute Eos Count 372(H) 0 - 300 cells/uL [facility] Segmented Neutrophils 60 36 - 66 % [facility] Lymphocytes 25 19 - 40 % [facility] Monocytes 8 4 - 12 % [facility] Eosinophils 7(H) 0 - 3 % [facility] WBC Estimate Normal [facility] Platelet Estimate Low [facility] RBC Morphology Normal [facility] R [facility] Blood 02/19/2024 2:23 PM CDT Narrative [facility] B[facility] - 02/19/2024 3:35 PM CDT Release to patient->Immediate Rosalina Vázquez APRN, ASSEMBLER PRODUCT HEMATOLOGY ORDERABL ES Final Result [facility] [place] [address], documented in this encounter Visit Diagnoses Diagnosis 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)- Primary Hypogammaglobulinemia (HCC) Hypogammaglobulinaemia, unspecified Iron deficiency Other disorders of iron metabolism Hypogammaglobulinemia (HCC) Hypogammaglobulinaemia, unspecified 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) Iron deficiency Other disorders of iron metabolism documented in this encounter Additional Health Concerns Assessment Noted Time PHQ-9 Depression Total Score: 0 03/08/20 21 11:06 AM CDT documented as of this encounter Care Teams Office Assistant Receptionist Relationship Specialty Start Date End Date Jonatan Worley [address] [address] PCP - General Family Medicine 07/12/20 Srinivasa Lee MD [facility] [place] [address] Consulting Physician Oncology 07/12/20 documented as of this encounter
--- OUTSIDE RECORDS SUMMARY | 2024-08-29 03:45 | XMS_ITS | Encounter Summary ---
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 Question Answer Date of Assessment Author Patient Health Questionnaire-2 Score 0 10/23/2023 2:11 PM Tereza Khan CMA documented as of this encounter Plan of Treatment Upcoming Encounters Date Type Department Care Team (Late st Contact Info) Description 10/18/2024 1:30 PM REACTOR FUELING SUPERVISOR Office Visit [facility] [address] [place] [phone] Srinivasa Lee MD [address] [place] [address] documented as of this encounter Visit Diagnoses Not on filedocumented in this encounter Additional Health Concerns Assessment Noted Time PHQ-9 Depression Total Score: 0 03/08/20 21 11:06 AM CDT documented as of this encounter Care Teams Manufacturing Engineer Automotive Relationship Specialty Start Date End Date Jonatan Worley [address] [place] [address] PCP - General Family Medicine 07/12/20 Srinivasa Lee MD [address] [place] [phone] Consulting Physician Oncology 07/12/20 documented as of this encounter
--- OUTSIDE RECORDS SUMMARY | 2024-08-29 03:45 | XMS_ITS | Encounter Summary ---
Author Organization [facility] Address [address] [place] [address] Phone Care Team Providers Care Machine Plaster Mixer Name Role Phone Jonatan Worley Primary Care Provider [phone] Srinivasa Lee MD Unavailable [phone] Encounter Details Date Type Department Care Team (Latest Contact Info) Description 02/19/2024 2:20 PM CDT Lab [facility] [address] [address] Lab, Cc [facility] Hypogammaglobulinemia (HCC); Anemia in stage 3b chronic kidney disease [...] on file Legal Sex Female 11:51 AM 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 PROBATION 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 Gender Identity Not on file Sexual Orientation [...] Napier CMA documented as of this encounter Plan of Treatment Upcoming Encounters Date Type Department Care Team (Late st Contact Info) Description 10/18/2024 1:30 PM YOUTH PROBATION OFFICER Office Visit [facility] [address] [address] Srinivasa Lee MD [address] [facility] [address] [place] [address] documented as of this encounter Procedures Procedure Name Priority Date/Time Associated Diagnosis Comments SERUM FREE LIGHT CHAINS, [place] Routine 02/19/2024 2:23 PM CDT IRON W/ IRON BINDING CAPACITY [place] Routine 02/19/2024 2:23 PM CDT Hypogammaglobuline ellen (HCC) 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) Iron deficiency IMMUNOFIXATION, SERUM [place] Routine 02/19/2024 2:23 PM CDT Hypogammaglobuline ellen (HCC) 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) Iron deficiency VITAMIN B12 Routine 02/19/2024 2:23 PM CDT Hypogammaglobuline ellen (HCC) 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) Iron deficiency RETICULOCYTE COUNT (RETIC) Routine 02/19/2024 2:23 PM CDT Hypogammaglobuline ellen (HCC) 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) Iron deficiency LACTATE DEHYDROGENASE (LD) Routine 02/19/2024 2:23 PM CDT Hypogammaglobuline ellen (HCC) 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) Iron deficiency IMMUNOGLOBULIN IGA, IGG & IGM QUANT Routine 02/19/2024 2:23 PM CDT Hypogammaglobuline ellen (HCC) 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) Iron deficiency FOLIC ACID (FOLATE) Routine 02/19/2024 2 :23 PM CDT Hypogammaglobuline ellen (HCC) 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) Iron deficiency FERRITIN Routine 02/19/2024 2:23 PM CDT Hypogammaglobuline ellen (HCC) 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) Iron deficiency ELECTROPHORESIS W/ TOTAL PROTEIN SERUM Routine 02/19/2024 2:23 PM CDT Hypogammaglobuline ellen (HCC) 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) Iron deficiency CMP (COMPREHENSIVE METABOLIC PANEL) Routine 02/19/2024 2:23 PM CDT Hypogammaglobuline ellen (HCC) 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) Iron deficiency COMPLETE BLOOD COUNT (CBC) WITH DIFF Routine 02/19/2024 2:23 PM CDT Hypogammaglobuline ellen (HCC) 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) Iron deficiency documented in this encounter Results * (ABNORMAL) SERUM FREE LIGHT CHAINS, [place] (02/19/2024 2:23 PM CDT) FREE KAPPA LT CHAINS 142.2(H) 2.9 - 20.7 mg/L [facility] FREE LAMBDA LT CHAINS 132.2(H) 4.2 - 27.6 mg/L [facility] KAPPA/LAMBDA RATIO 1.08 0.22 - 1.74 [facility] 02/19/2024 2:23 PM CDT us Rosalina Vázquez PLATE CUTTER, SALES REPRESENTATIVE SUPERVISOR LAB SEND OUTS Fin al Result [facility] [address] [place] [address], * IMMUNOFIXATION, SERUM [place] (02/19/2024 2:23 PM CDT) IMMUNOFIXATION RESULT, SERUM COMMENT: [facility] Comment: PRESENCE OF MONOCLONAL PROTEIN IS UNCLEAR AT THIS TIME. SUGGEST REPEAT IN 3 TO 6 MONTHS IF CLINICALLY INDICATED. 02/19/2024 2:23 PM CDT Narrative [facility] - 02/20/2024 3:09 PM CDT TESTING PERFORMED AT: [] [facility], [address] [place] [address], [place], [address], PHONE: [phone], CHRONOMETER ASSEMBLER AND ADJUSTER: PEGGY MARCUS, PHD Release to patient->Immediate Rosalina Vázquez APRN, SALES REPRESENTATIVE SUPERVISOR LAB SEND OUTS Fin al Result [facility] [address] [place] [address], [place] [phone] * (ABNORMAL) ELECTROPHORESIS W/ TOTAL PROTEIN SERUM (02/19/2024 2:23 PM CDT) Pathologist [facility] PROTEIN, TOTAL, SERUM 5.7(L) 6.0 - 8.5 G/DL [facility] ALBUMIN 3.0 2.9 - 4.4 G/DL [facility] [id number] 0.3 0.0 - 0.4 G/DL [facility] [id number]-6-[id number] 0.7 0.4 - 1.0 G/DL [facility] BETA GLOBULIN 0.7 0.7 - 1.3 G/DL [facility] GAMMA GLOBULIN 1.1 0.4 - 1.8 G/DL [facility] M-SPIKE NOT OBSERVED NOT OBSERVED G/DL [facility] GLOBULIN, TOTAL 2.7 2.2 - 3.9 G/DL [facility] A/G RATIO 1.1 0.7 - 1.7 [facility] PLEASE NOTE: COMMENT [facility] [place] Comment: PROTEIN ELECTROPHORESIS SCAN WILL FOLLOW VIA COMPUTER, MAIL, OR BEND SORTER DELIVERY. PDF . [facility] Blood 02/19/2024 2:23 PM CDT [place] [facility] - 02/20/2024 1:09 PM CDT TESTING PERFORMED AT: [] [address], [place], [address], PHONE: [phone], CHRONOMETER ASSEMBLER AND ADJUSTER: PEGGY MARCUS, PHD Release to patient->Immediate Rosalina Vázquez APRN, SALES REPRESENTATIVE SUPERVISOR CHEMISTRY ORDERABLE S Final Result Performing Organization Address [facility] de Phone Number [facility] [place] [address], [place] [phone] * (ABNORMAL) RETICULOCYTE COUNT (RETIC) (02/19/2024 2:23 PM CDT) Reticulocyte count 2.09(H) 0.50 - 1.70 % [facility] RET-He 32.70 28.20 - 36.60 pg [facility]TH COUNSEL[facility] Comment: RET-He is a direct assessment of incorporation of iron into erythrocyte hemoglobin. It provides an indirect measure of the iron available for new erythropoiesis over past 2-4 days. Blood 02/19/2024 2:23 PM CDT Narrative [facility] - 02/19/2024 2:33 PM CDT Release to patient->Immediate Rosalina Vázquez APRN, SALES REPRESENTATIVE SUPERVISOR HEMATOLOGY ORDERABL ES Final Result Performing Organization Address [facility] Co de Phone Number [facility] [place] [address], [place] [phone] * (ABNORMAL) IRON W/ IRON BINDING CAPACITY [place] (02/19/2024 2:23 PM CDT) IRON 49(L) 50 - 212 ug/dL [facility] UIBC 190 155 - 355 ug/dL [facility] YOUTH COUNSELOR OF [facility] TIBC 239(L) 261 - 478 ug/dl [facility] % Saturation 21 20 - 50 % [facility] 02/19/2024 2:23 PM CDT Narrative [facility] - 02/19/2024 3:17 PM CDT Release to patient->Immediate us Rosalina Vázquez APRN, SALES REPRESENTATIVE SUPERVISOR LAB SEND OUTS Fin al Result [facility] [address] [place] [address], [place] [phone] * FERRITIN (02/19/2024 2:23 PM CDT) Ferritin 67 11 - 307 ng/mL [facility] Blood 02/19/2024 2:23 PM CDT Narrative [facility] - 02/20/2024 3:26 PM CDT Release to patient->Immediate us Rosalina Vázquez APRN, SALES REPRESENTATIVE SUPERVISOR CHEMISTRY ORDERABLE S Final Result Performing Organization Address [facility] de Phone Number [facility] [address] [place] [address], [place] [phone] * FOLIC ACID (FOLATE) (02/19/2024 2:23 PM CDT) Folate 12.98 >=5.90 ng/mL [facility] Blood 02/19/2024 2:23 PM CDT [facility] - 02/20/2024 3:26 PM CDT Release to patient->Immediate IS THE PATIENT REQUIRED TO BE FASTING FOR 12 HOURS?->No us Rosalina Vázquez APRN, SALES REPRESENTATIVE SUPERVISOR CHEMISTRY ORDERABLE S Final Result [facility] [address] [place] [address], [place] [phone] * (ABNORMAL) VITAMIN B12 (02/19/2024 2:23 PM CDT) Vitamin B12 1,381(H) 180 - 914 pg/mL [facility] Blood 02/19/2024 2:23 PM CDT Narrative [facility] - 02/20/2024 3:26 PM CDT Release to patient->Immediate us Rosalina Vázquez APRN, SALES REPRESENTATIVE SUPERVISOR CHEMISTRY ORDERABLE S Final Result Performing Organization Address [facility] Co de Phone Number [facility] [address] [address], [place] [phone] * LACTATE DEHYDROGENASE (LD) (02/19/2024 2:23 PM CDT) LDH 157 140 - 271 U/L [facility] Blood 02/19/2024 2:23 PM CDT Narrative [facility] - 02/19/2024 3:17 PM CDT Release to patient->Immediate Rosalina Vázquez APRN, SALES REPRESENTATIVE SUPERVISOR CHEMISTRY ORDERABLE S Final Result Performing Organization Address [facility] Co de Phone Number [facility] [address] [address], [place] [phone] * (ABNORMAL) CMP (COMPREHENSIVE METABOLIC PANEL) (02/19/2024 2:23 PM CDT) Glucose 245(H) 70 - 105 mg/dL [facility] Blood Urea Nitrogen 45(H) 7 - 25 mg/dL [facility] Creatinine 3.2(H) 0.6 - 1.2 mg/dL [facility] Sodium 136 136 - 145 mEq/L [facility] [place] Potassium 5.2(H) 3.5 - 5.1 mEq/L [facility] Chloride 105 98 - 107 mEq/L [facility] Bicarbonate 23 21 - 31 mEq/L [facility] Total Bilirubin 0.5 0.3 - 1.0 mg/dL [facility] Alk. Phosphatase 53 34 - 104 U/L [facility] Aspartate Aminotransferase 18 13 - 39 U/L [facility] Alanine Aminotransferase 10 7 - 52 U/L [facility] Total Protein 5.8(L) 6.4 - 8.9 g/dL [facility] Albumin 3.4(L) 3.5 - 5.7 g/dL [facility] Calcium 8.6 8.6 - 10.3 mg/dL [facility] Anion Gap 13.2 7.0 - 15.0 mEq/L [facility] Globulin 2.4 2.0 - 3.5 g/dL [facility] EGFR 16(L) >60 ml/min/1. 73m2 [facility] Comment: This eGFR is calculated using 2020 CKD-EPI Creatinine equation without race modifier based on the NKF-ASN task force recommendations Blood 02/19/2024 2:23 PM CDT Narrative [facility] - 02/19/2024 3:17 PM CDT Release to patient->Immediate IS THE PATIENT REQUIRED TO BE FASTING FOR 8 HOURS?->No us Rosalina Vázquez PLATE CUTTER, SALES REPRESENTATIVE SUPERVISOR CHEMISTRY ORDERABLE S Final Result [facility] [address] [place] [address], * (ABNORMAL) COMPLETE BLOOD COUNT (CBC) WITH DIFF (02/19/2024 2:23 PM CDT) WBC 5.3 4.0 - 10.0 10*3/uL [facility] HGB 9.6(L) 11.2 - 15.7 g/dL [facility] HCT 29.9(L) 34.1 - 44.9 % [facility] PLT 160(L) 163 - 369 10*3/uL [facility] MPV 10.3 9.4 - 12.4 fL [facility] RBC 3.21(L) 3.93 - 5.22 10*6/uL [facility] MCV 93 79 - 95 fL [facility] MCH 29.9 25.6 - 32.2 pg [facility] MCHC 32.1(L) 32.2 - 36.5 g/dL [facility] RDW 12.5 11.6 - 14.4 % [facility] Absolute Neutrophil Count 3,192 cells/uL [facility] Absolute Seg Count 3,192 1,440 - 6,600 cells/uL [facility] Absolute Lymph Count 1,330 760 - 4,000 cells/uL [facility] Absolute [place] Count 426 160 - 1,200 cells/uL [facility] Absolute Eos Count 372(H) 0 - 300 cells/uL [facility] Segmented Neutrophils 60 36 - 66 % [facility] Lymphocytes 25 19 - 40 % [facility] Monocytes 8 4 - 12 % [facility] Eosinophils 7(H) 0 - 3 % [facility] WBC Estimate Normal [facility] Platelet Estimate Low [facility] RBC Morphology Normal [facility] R [facility] Blood 02/19/2024 2:23 PM CDT Narrative [facility] - 02/19/2024 3:35 PM CDT Release to patient->Immediate us Rosalina Vázquez PLATE CUTTER, SALES REPRESENTATIVE SUPERVISOR HEMATOLOGY ORDERABL ES Final Result [facility] [address] [place] [address], * (ABNORMAL) IMMUNOGLOBULIN IGA, IGG & IGM QUANT (02/19/2024 2:23 PM CDT) IGG 997 635 - 1,741 mg/dL [facility] IGA 196 66 - 433 mg/dL [facility] IGM 312(H) 45 - 281 mg/dL [facility] Blood 02/19/2024 2:23 PM CDT Narrative [facility] - 02/20/2024 4:01 PM CDT Release to patient->Immediate us Rosalina Vázquez PLATE CUTTER, SALES REPRESENTATIVE SUPERVISOR CHEMISTRY ORDERABLE S Final Result [facility] [place] [address], documented in this encounter Visit Diagnoses Diagnosis Hypogammaglobulinemia (HCC) Hypogammaglobulinaemia, unspecified 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) Iron deficiency Other disorders of iron metabolism documented in this encounter Additional Health Concerns Assessment Noted Time PHQ-9 Depression Total Score: 0 03/08/20 21 11:06 AM CDT documented as of this encounter Care Teams Machine Plaster Mixer Relationship Specialty Start Date End Date Jonatan Worley [address] [place] [address] PCP - General Family Medicine 07/12/20 Srinivasa Lee MD [address] [place] [address] Consulting Physician Oncology 07/12/20 documented as of this encounter
--- OUTSIDE RECORDS SUMMARY | 2024-08-29 03:45 | XMS_ITS | Encounter Summary ---
Author Organization [facility] Address [address] [place] [address] Phone Care Team Providers Care Tree Climber Name Role Phone Jonatan Worley Primary Care Provider [phone] Srinivasa Lee MD Unavailable [phone] Encounter Details Date Type Department Care Team (Late st Contact Info) Description 02/19/2024 Telephone [facility] [address] [place] [address] Rosalina Vázquez, ACCOUNTING SYSTEM EXPERT, RN FIELD [address] [place] [address] Social History Tobacco Use Types Packs/Day Years [...] on file Legal Sex Female 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 Question Answer Date of Assessment Author Patient Health Questionnaire-2 Score 0 02/19/2024 1:54 PM CDT Tereza Napier CMA documented as of this encounter Miscellaneous Notes * Telephone Encounter - Mayra Nunes RN - 02/19/2024 4:12 PM CDT CMP results faxed to nephrology. * Telephone Encounter - Mayra Nunes RN - 02/19/2024 4:09 PM CDT ----- Message from Rosalina Vázquez APRN, CNP sent at 02/19/2024 3:55 PM CDT ----- Please fax CMP results to airborne weapons technical manager, thanks! documented in this encounter Plan of Treatment Upcoming Encounters Date Type Department Care Team (Late st Contact Info) Description 10/18/2024 1:30 PM SOLAR PROJECT ENGINEER Office Visit [facility] [address] [place] [address] Srinivasa Lee MD [address] [place] [address] documented as of this encounter Visit Diagnoses Not on filedocumented in this encounter Additional Health Concerns Assessment Noted Time PHQ-9 Depression Total Score: 0 03/08/20 21 11:06 AM CDT documented as of this encounter Care Teams Tree Climber Relationship Specialty Start Date End Date Jonatan Worley [address] [place] [address] PCP - General Family Medicine 07/12/20 Srinivasa Lee MD [address] [place] [phone] Consulting Physician Oncology 07/12/20 documented as of this encounter
--- OUTSIDE RECORDS SUMMARY | 2024-08-29 03:45 | XMS_ITS | Encounter Summary ---
Author Organization [employer] Care Team Providers Care Manager Fiber Name Role Phone Jonatan Worley Primary Care Provider Srinivasa Lee MD Unavailable [phone] Encounter Details Date Type Department Care Team (Latest Contact Info) Description 06/17/2024 Travel Social History Tobacco Use Types Packs/Day [...] on file Legal Sex Female 11:51 AM RACK PUNCHER Gender Identity Not on file Sexual Orientation Not on file documented as of this encounter Functional Status * Question Answer Date of Assessment Author Little interest or pleasure in doing things Not at all 06/17/2024 2:12 PM Jatin Nunez CMA Feeling down, depressed, or hopeless Not at all 06/17/2024 2:12 PM Deyanira Nunez CMA * Over the past 2 weeks, how often have you been bothered by any of the following problems? Question Answer Date of Assessment Author Patient Health Questionnaire-2 Score 0 06/17/2024 2:12 PM Tereza Nunez CMA documented as of this encounter Plan of Treatment Upcoming Encounters Date Type Department Care Team (Late st Contact Info) Description 10/18/2024 1:30 PM RACK PUNCHER Office Visit [facility] [address] [place] [address] Srinivasa Lee MD [address] [place] [address] documented as of this encounter Visit Diagnoses Not on filedocumented in this encounter Additional Health Concerns Assessment Noted Time PHQ-9 Depression Total Score: 0 03/08/20 21 11:06 AM CDT documented as of this encounter Care Teams Manager Fiber Relationship Specialty Start Date End Date Jonatan Worley [address] [place] [address] PCP - General Family Medicine 07/12/20 Srinivasa Lee MD [address] [place] [phone] Consulting Physician Oncology 07/12/20 documented as of this encounter
--- OUTSIDE RECORDS SUMMARY | 2024-08-29 03:45 | XMS_ITS | Encounter Summary ---
Author Organization [facility] [place] Address [address] [place] [address] Phone Care Team Providers Care Timber Framer Helper Name Role Phone Jonatan Worley Primary Care Provider [phone] Srinivasa Lee MD Unavailable [phone] Reason for Visit * Reason Comments Labs Only Encounter Details Date Type Department Care Team (Latest Contact Info) Description 03/07/2023 10:00 AM CDT Clinical Support [facility] [address] [address] Nurse, Gwendolyn Jackson CT Anemia of unknown etiology; Hypogammaglobulinem ia (HCC) Social History Tobacco Use Types Packs/Day Years [...] on file Legal Sex Female 11:51 AM RADIO INSTALLER Gender Identity Not on file Sexual Orientation [...] Maldonado RN documented as of this encounter Progress Notes * Ely Lai RN - 03/07/2023 10:00 AM CDT Blood drawn from Left ac. Guaze and coban to site. Tolerated well. Left ambulatory unaccompanied. Performance status unchanged since arrival to clinic. documented in this encounter Plan of Treatment Upcoming Encounters Date Type Department Care Team (Late st Contact Info) Description 10/18/2024 1:30 PM RADIO INSTALLER Office Visit [facility] [address] [address] Srinivasa Lee MD [address] [place], [place] [id number] documented as of this encounter Procedures Procedure Name Priority Date/Time Associated Diagnosis Comments IMMUNOFIXATION, SERUM OH Routine 03/07/2023 10:01 AM CDT Hypogammaglobuline ellen (HCC) FREE KAPPA & LAMBDA LIGHT CHAINS SERUM Routine 03/07/2023 10:01 AM CDT Hypogammaglobuline ellen (HCC) IMMUNOGLOBULIN IGA, IGG & IGM QUANT Routine 03/07/2023 10:01 AM CDT Hypogammaglobuline ellen (HCC) ELECTROPHORESIS W/ TOTAL PROTEIN SERUM Routine 03/07/2023 10:01 AM CDT Hypogammaglobuline ellen (HCC) BETA 2 MICROGLOBULIN Routine 03/07/2023 10:01 AM CDT Hypogammaglobuline ellen (HCC) IRON W/ IRON BINDING CAPACITY OH Routine 03/07/2023 9:32 AM CDT Anemia of unknown etiology VITAMIN B12 Routine 03/07/2023 9:32 AM CDT Anemia of unknown etiology LACTATE DEHYDROGENASE (LD) Routine 03/07/2023 9:32 AM CDT Anemia of unknown etiology FERRITIN Routine 03/07/2023 9:32 AM CDT Anemia of unknown etiology CMP (COMPREHENSIVE METABOLIC PANEL) Routine 03/07/2023 9:32 AM CDT Anemia of unknown etiology COMPLETE BLOOD COUNT (CBC) WITH DIFF Routine 03/07/2023 9:32 AM CDT Anemia of unknown etiology documented in this encounter Results * IMMUNOGLOBULIN IGA, IGG & IGM QUANT (03/07/2023 10:01 AM CDT) IGG 746 635 - 1,741 mg/dL [facility] IGA 202 66 - 433 mg/dL [facility] IGM 104 45 - 281 mg/dL [facility] Blood 03/07/2023 10:0 1 AM CDT Narrative CANCER SILK SCREEN PROCESSOR [facility] - 03/10/2023 2:03 PM CDT Release to patient->Immediate us Buzz Sales PAC CHEMISTRY ORDERABLES Final Result CANCER SILK SCREEN PROCESSOR [facility] [address] [place] [address], [place] [phone] * (ABNORMAL) ELECTROPHORESIS W/ TOTAL PROTEIN SERUM (03/07/2023 10:01 AM CDT) PROTEIN, TOTAL, SERUM 5.7(L) 6.0 - 8.5 G/DL [facility] EXTERNAL LAB ALBUMIN 3.2 2.9 - 4.4 G/DL [facility] EXTERNAL LAB [id number] 0.2 0.0 - 0.4 G/DL [facility] EXTERNAL LAB [id number]-3-[id number] 0.8 0.4 - 1.0 G/DL [facility] EXTERNAL LAB BETA GLOBULIN 0.8 0.7 - 1.3 G/DL [facility] EXTERNAL LAB GAMMA GLOBULIN 0.7 0.4 - 1.8 G/DL [facility] EXTERNAL LAB M-SPIKE NOT OBSERVED NOT OBSERVED G/DL [facility] EXTERNAL LAB GLOBULIN, TOTAL 2.5 2.2 - 3.9 G/DL [facility] EXTERNAL LAB A/G RATIO 1.3 0.7 - 1.7 [facility] EX[facility]NAL [facility] PLEASE NOTE: COMMENT [facility] EX[facility] Comment: PROTEIN ELECTROPHORESIS SCAN WILL FOLLOW VIA COMPUTER, MAIL, OR SAMPLE GRADER DELIVERY. PDF . [facility] Blood 03/07/2023 10:0 1 AM CDT Narrative [facility] - 03/10/2023 3:09 PM CDT TESTING PERFORMED AT: [] [facility], [address] [place] [address], [address], PHONE: [phone], ONLINE CONTENT DEVELOPER: PEGGY MARCUS, PHD Release to patient->Immediate Buzz Sales [facility] CHEMISTRY ORDERABLES Final Result [facility] EXTER[facility] * IMMUNOFIXATION, SERUM OH (03/07/2023 10:01 AM CDT) Pathologist [facility] IMMUNOFIXATION RESULT, SERUM COMMENT [facility] EXTERNAL LAB Comment:NO MONOCLONALITY DET ECTED. 03/07/2023 10:0 1 AM CDT Narrative [facility] - 03/10/2023 11:08 AM CDT TESTING PERFORMED AT: [] [facility], [address], [place], [address], PHONE: [phone], ONLINE CONTENT DEVELOPER: PEGGY MARCUS, PHD Release to patient->Immediate Buzz Sales PAC LAB SEND OUTS Final Resu lt [facility] EX[facility] * (ABNORMAL) FREE KAPPA & LAMBDA LIGHT CHAINS SERUM (03/07/2023 10:01 AM CDT) FREE KAPPA LT CHAINS,S 104.9(H) 3.3 - 19.4 MG/L [facility] EXTERNAL LAB FREE LAMBDA LT CHAINS,S 59.6(H) 5.7 - 26.3 MG/L [facility] EX[facility] FREE KAPPA/FREE LAMBDA RATIO LT CHAINS 1.76(H) 0.26 - 1.65 [facility] EX[facility] Blood 03/07/2023 10:0 1 AM CDT Narrative [facility] - 03/10/2023 1:08 PM CDT TESTING PERFORMED AT: [] [address], [address], PHONE: [phone], ONLINE CONTENT DEVELOPER: PEGGY MARCUS, PHD Release to patient->Immediate Buzz Sales PAC CHEMISTRY ORDERABLES Final Result Performing Organization Address [facility] Co de Phone Number [facility] EX[facility] * (ABNORMAL) BETA 2 MICROGLOBULIN (03/07/2023 10:01 AM CDT) Pathologist [facility] [id number] 9.94(H) 0.97 - 1.84 mg/L CANCER SILK SCREEN PROCESSOR [facility] Blood 03/07/2023 10:0 1 AM CDT Narrative CANCER SILK SCREEN PROCESSOR [facility] - 03/14/2023 2:06 PM CDT Release to patient->Immediate Buzz Sales PAC CHEMISTRY ORDERABLES Final Result Performing Organization Address City/[facility]/ZIP Co de Phone Number CANCER SILK SCREEN PROCESSOR [facility] [place] [address], [place] [phone] * (ABNORMAL) COMPLETE BLOOD COUNT (CBC) WITH DIFF (03/07/2023 9:32 AM CDT) WBC 10.5(H) 4.0 - 10.0 10*3/uL [facility] HGB 9.7(L) 11.2 - 15.7 g/dL [facility] HCT 30.4(L) 34.1 - 44.9 % [facility] PLT 195 163 - 369 10*3/uL [facility] MPV 11.5 9.4 - 12.4 fL [facility] RBC 3.30(L) 3.93 - 5.22 10*6/uL [facility] MCV 92 79 - 95 fL [facility] MCH 29.4 25.6 - 32.2 pg [facility] MCHC 31.9(L) 32.2 - 36.5 g/dL [facility] RDW 12.7 11.6 - 14.4 % [facility] Absolute Neutrophil Count 8,054 cells/uL [facility] Absolute Seg Count 7,950(H) 1,440 - 6,600 cells/uL [facility] Absolute Band Count 105 0 - 800 cells/uL [facility] Absolute Lymph Count 1,046 760 - 4,000 cells/uL [facility] Absolute Mayes Count 314 160 - 1,200 cells/uL [facility] Absolute Eos Count 1,046(H) 0 - 300 cells/uL [facility] Segmented Neutrophils 76(H) 36 - 66 % [facility] Band Neutrophils 1 0 - 8 % [facility] Lymphocytes 10(L) 19 - 40 % [facility] Monocytes 3(L) 4 - 12 % [facility] Eosinophils 10(H) 0 - 3 % [facility] [place] WBC Estimate High [facility] Platelet Estimate Normal [facility] RBC Morphology Normal [facility] Blood 03/07/2023 9:32 AM CDT Narrative [facility] - 03/07/2023 1:22 PM CDT Release to patient->Immediate Buzz Sales PAC HEMATOLOGY ORDERABLES Kym tineo Result [facility] [address] [place] [address], * (ABNORMAL) CMP (COMPREHENSIVE METABOLIC PANEL) (03/07/2023 9:32 AM CDT) Glucose 192(H) 70 - 105 mg/dL [facility] Blood Urea Nitrogen 39(H) 7 - 25 mg/dL [facility] Creatinine 2.5(H) 0.6 - 1.2 mg/dL [facility] Sodium 138 136 - 145 mEq/L [facility] Potassium 4.8 3.5 - 5.1 mEq/L [facility] Chloride 109(H) 98 - 107 mEq/L [facility] Bicarbonate 20(L) 21 - 31 mEq/L [facility] Total Bilirubin 0.3 0.3 - 1.0 mg/dL [facility] Alk. Phosphatase 75 34 - 104 U/L [facility] Aspartate Aminotransferase 15 13 - 39 U/L [facility] Alanine Aminotransferase 11 7 - 52 U/L [facility] Total Protein 5.4(L) 6.4 - 8.9 g/dL [facility] Albumin 3.3(L) 3.5 - 5.7 g/dL [facility] Calcium 8.5(L) 8.6 - 10.3 mg/dL [facility] Anion Gap 13.8 7.0 - 15.0 mEq/L [facility] Globulin 2.1 2.0 - 3.5 g/dL [facility] EGFR 21(L) >60 ml/min/1. 73m2 [facility] Comment: This eGFR is calculated using 2020 CKD-EPI Creatinine equation without race modifier based on the NKF-ASN task force recommendations Blood 03/07/2023 9:32 AM CDT Narrative [facility] - 03/07/2023 11:13 AM CDT Release to patient->Immediate IS THE PATIENT REQUIRED TO BE FASTING FOR 8 HOURS?->No Buzz Sales PAC CHEMISTRY ORDERABLES Final Result Performing Organization Address City/[facility]/ZIP Co de Phone Number [facility] [address] [place] [address], * LACTATE DEHYDROGENASE (LD) (03/07/2023 9:32 AM CDT) LDH 144 140 - 271 U/L [facility] Blood 03/07/2023 9:32 AM CDT Narrative [facility] - 03/07/2023 11:14 AM CDT Release to patient->Immediate Buzz Sales PAC CHEMISTRY ORDERABLES Final Result Performing Organization Address [facility] Co de Phone Number [facility] [address] [address], * (ABNORMAL) IRON W/ IRON BINDING CAPACITY OH (03/07/2023 9:32 AM CDT) IRON 44(L) 50 - 212 ug/dL [facility] UIBC 205 155 - 355 ug/dL [facility] TIBC 249(L) 261 - 478 ug/dl [facility] % Saturation 18(L) 20 - 50 % [facility] Blood 03/07/2023 9:32 AM CDT Narrative [facility] - 03/07/2023 11:14 AM CDT Release to patient->Immediate Buzz Sales PAC LAB SEND OUTS Final Resu lt Performing Organization Address City/[facility]/ZIP Co de Phone Number [facility] [address] [address], * FERRITIN (03/07/2023 9:32 AM CDT) Ferritin 49 11 - 307 ng/mL CANCER SILK SCREEN PROCESSOR [facility] Blood 03/07/2023 9:32 AM CDT Narrative [facility] - 03/10/2023 2:37 PM CDT Release to patient->Immediate Buzz Sales PAC CHEMISTRY ORDERABLES Final Result Performing Organization Address City/[facility]/ZIP Co de Phone Number [facility] [address] [place] [address], [place] [phone] * VITAMIN B12 (03/07/2023 9:32 AM CDT) Vitamin B12 267 180 - 914 pg/mL [facility] Blood 03/07/2023 9:32 AM CDT [facility] - 03/10/2023 2:37 PM CDT Release to patient->Immediate Buzz Sales PAC CHEMISTRY ORDERABLES Final Result Performing Organization Address [facility] de Phone Number [facility] [address] [place] [address], [place] [phone] documented in this encounter Visit Diagnoses Diagnosis Anemia of unknown etiology Anemia, unspecified Hypogammaglobulinemia (HCC) Hypogammaglobulinaemia, unspecified documented in this encounter Additional Health Concerns Assessment Noted Time PHQ-9 Depression Total Score: 0 03/08/20 21 11:06 AM CDT documented as of this encounter Care Teams Timber Framer Helper Relationship Specialty Start Date End Date Jonatan Worley [address] [place] [address] PCP - General Family Medicine 07/12/20 Srinivasa Lee MD [address] [place] [id number] Consulting Physician Oncology 07/12/20 documented as of this encounter
--- OUTSIDE RECORDS SUMMARY | 2024-08-29 03:45 | XMS_ITS | Encounter Summary ---
Author Organization [facility] Address [address] [place] [address] Phone Care Team Providers Care Grips Name Role Phone Jonatan Worley Primary Care Provider Srinivasa Lee MD Unavailable [phone] Encounter Details Date Type Department Care Team (Late st Contact Info) Description 10/27/2023 Telephone [facility] [address] [place] [address] Srinivasa Lee MD [facility] [address] [address] Social History Tobacco Use Types [...] on file Legal Sex Female 11:51 AM CARDIOVASCULAR RN Gender Identity Not on file Sexual Orientation Not on file documented as of this encounter Miscellaneous Notes * Telephone Encounter - Shonna Roman LPN - 10/27/2023 11:00 AM CARDIOVASCULAR RN Copy of lab results faxed to Kizzy Delgado PUNCH PRESS OPERATOR HELPER with [facility] asrequested. IOVASCULAR RN * Telephone Encounter - Shonna Roman LPN - 10/27/2023 11:00 AM CARDIOVASCULAR RN ----- Message from Esther Rojas APRN, CNP sent at 10/24/2023 2:25 PM CARDIOVASCULAR RN ----- Please send a copy of patient's CMP over to her Lead Driver. IOVASCULAR RN * Telephone Encounter - Shonna Roman LPN - 10/27/2023 10:56 AM CARDIOVASCULAR RN ----- Message from Esther Rojas APRN, CNP sent at 10/24/2023 2:25 PM CARDIOVASCULAR RN ----- Please send a copy of patient's CMP over to her Lead Driver. IOVASCULAR RN documented in this encounter Plan of Treatment Upcoming Encounters Date Type Department Care Team (Late st Contact Info) Description 10/18/2024 1:30 PM CARDIOVASCULAR RN Office Visit [facility] [address] [place] [address] Srinivasa Lee MD [address] [place] [address] documented as of this encounter Visit Diagnoses Not on filedocumented in this encounter Additional Health Concerns Assessment Noted Time PHQ-9 Depression Total Score: 0 03/08/20 21 11:06 AM CDT documented as of this encounter Care Teams Grips Relationship Specialty Start Date End Date Jonatan Worley [address] [place] [address] PCP - General Family Medicine 07/12/20 Srinivasa Lee MD [address] [place] [phone] Consulting Physician Oncology 07/12/20 documented as of this encounter
--- OUTSIDE RECORDS SUMMARY | 2024-08-29 03:45 | XMS_ITS | Encounter Summary ---
Author Organization [facility] Address [address] [place] [address] Phone Care Team Providers Care Metalsmith Apprentice Name Role Phone Jonatan Worley Primary Care Provider Srinivasa Lee MD Unavailable [phone] Encounter Details Date Type Department Care Team (Latest Contact Info) Description 06/12/2023 2:05 PM CDT Lab [facility] [address] [address] Lab, C[facility] [place] Hypogammaglobulinemia (HCC); Anemia of unknown etiology [...] on file Legal Sex Female 11:51 AM WILD LIFE PHOTOGRAPHER Gender Identity Not on file Sexual Orientation [...] things Not at all 06/12/2023 2:21 PM Armando Yanes RN Feeling down, depressed, or hopeless Not at all 06/12/2023 2:21 PM Armando Yanes RN * Over the past 2 weeks, how often have you been bothered by any of the following problems? Question Answer Date of Assessment Author Patient Health Questionnaire-2 Score 0 05/25 2:21 PM Armando Yanes RN documented as of this encounter Plan of Treatment Upcoming Encounters Date Type Department Care Team (Late st Contact Info) Description 10/18/2024 1:30 PM WILD LIFE PHOTOGRAPHER Office Visit [facility] [address] [address] rSinivasa Lee MD [address] [place] [address] documented as of this encounter Procedures Procedure Name Priority Date/Time Associated Diagnosis Comments IRON W/ IRON BINDING CAPACITY OH Routine 06/12/2023 2:25 PM CDT Hypogammaglobuline ellen (HCC) Anemia of unknown etiology IMMUNOFIXATION, SERUM OH Routine 06/12/2023 2:25 PM CDT Hypogammaglobuline ellen (HCC) Anemia of unknown etiology FREE KAPPA & LAMBDA LIGHT CHAINS SERUM Routine 06/12/2023 2:25 PM CDT Hypogammaglobuline ellen (HCC) Anemia of unknown etiology VITAMIN B12 Routine 06/12/2023 2:25 PM CDT Hypogammaglobuline ellen (HCC) Anemia of unknown etiology LACTATE DEHYDROGENASE (LD) Routine 06/12/2023 2:25 PM CDT Hypogammaglobuline ellen (HCC) Anemia of unknown etiology IMMUNOGLOBULIN IGA, IGG & IGM QUANT Routine 06/12/2023 2:25 PM CDT Hypogammaglobuline ellen (HCC) Anemia of unknown etiology FERRITIN Routine 06/12/2023 2:25 PM CDT Hypogammaglobuline ellen (HCC) Anemia of unknown etiology ELECTROPHORESIS W/ TOTAL PROTEIN SERUM Routine 06/12/2023 2:25 PM CDT Hypogammaglobuline ellen (HCC) Anemia of unknown etiology CMP (COMPREHENSIVE METABOLIC PANEL) Routine 06/12/2023 2:25 PM CDT Hypogammaglobuline ellen (HCC) Anemia of unknown etiology COMPLETE BLOOD COUNT (CBC) WITH DIFF Routine 06/12/2023 2:25 PM CDT Hypogammaglobuline ellen (HCC) Anemia of unknown etiology BETA 2 MICROGLOBULIN Routine 06/12/2023 2:25 PM CDT Hypogammaglobuline ellen (HCC) Anemia of unknown etiology documented in this encounter Results * (ABNORMAL) COMPLETE BLOOD COUNT (CBC) WITH DIFF (06/12/2023 2:25 PM CDT) WBC 9.8 4.0 - 10.0 10*3/uL [facility] HGB 10.0(L) 11.2 - 15.7 g/dL [facility] HCT 31.3(L) 34.1 - 44.9 % [facility] PLT 200 163 - 369 10*3/uL [facility] MPV 10.0 9.4 - 12.4 fL [facility] RBC 3.46(L) 3.93 - 5.22 10*6/uL [facility] MCV 91 79 - 95 fL [facility]SMISSION MECHANIC [facility] MCH 28.9 25.6 - 32.2 pg [facility] TRANSMISSION MECHANIC [facility] MCHC 31.9(L) 32.2 - 36.5 g/dL [facility] RDW 12.9 11.6 - 14.4 % [facility] Absolute Neutrophil Count 6,546 cells/uL [facility] Absolute Seg Count 6,546 1,440 - 6,600 cells/uL [facility] Absolute Lymph Count 1,759 760 - 4,000 cells/uL [facility] TRANSMISSION MECHANIC [facility] Absolute [place] Count 586 160 - 1,200 cells/uL [facility] Absolute Eos Count 879(H) 0 - 300 cells/uL [facility] TRANSMISSION MECHANIC [facility] Segmented Neutrophils 67(H) 36 - 66 % [facility] TRANSMISSION MECHANIC [facility] Lymphocytes 18(L) 19 - 40 % [facility] Monocytes 6 4 - 12 % CAN[facility]ER [facility] Eosinophils 9(H) 0 - 3 % [facility] WBC Estimate Normal [facility] TRANSMISSION MECHANIC [facility] Platelet Estimate Normal [facility] TRANSMISSION MECHANIC [facility] RBC Morphology Normal [facility] Blood 06/12/2023 2:25 PM CDT Narrative [facility] - 06/12/2023 3:27 PM CDT Release to patient->Immediate Buzz Sales [facility] HEMATOLOGY ORDERABLES Kym tineo Result [facility] TRANSMISSION MECHANIC [facility] [place] [address], * (ABNORMAL) CMP (COMPREHENSIVE METABOLIC PANEL) (06/12/2023 2:25 PM CDT) Glucose 161(H) 70 - 105 mg/dL [facility] Blood Urea Nitrogen 37(H) 7 - 25 mg/dL [facility] Creatinine 2.6(H) 0.6 - 1.2 mg/dL [facility] Sodium 138 136 - 145 mEq/L [facility] Potassium 5.0 3.5 - 5.1 mEq/L [facility] Chloride 111(H) 98 - 107 mEq/L [facility] Bicarbonate 19(L) 21 - 31 mEq/L [facility] Total Bilirubin 0.3 0.3 - 1.0 mg/dL [facility] Alk. Phosphatase 89 34 - 104 U/L [facility] Aspartate Aminotransferase 16 13 - 39 U/L [facility] Alanine Aminotransferase 10 7 - 52 U/L [facility] Total Protein 6.2(L) 6.4 - 8.9 g/dL [facility] Albumin 3.5 3.5 - 5.7 g/dL [facility] Calcium 9.0 8.6 - 10.3 mg/dL [facility] Anion Gap 13.0 7.0 - 15.0 mEq/L [facility] Globulin 2.7 2.0 - 3.5 g/dL [facility] EGFR 20(L) >60 ml/min/1. 73m2 [facility] Comment: This eGFR is calculated using 2020 CKD-EPI Creatinine equation without race modifier based on the NKF-ASN task force recommendations Blood 06/12/2023 2:[address] [facility] - 06/12/2023 3:29 PM CDT Release to patient->Immediate IS THE PATIENT REQUIRED TO BE FASTING FOR 8 HOURS?->No Buzz Sales PAC CHEMISTRY ORDERABLES Final Result Performing Organization Address City/[facility]/ZIP Co de Phone Number [facility] [address] [place] [address], [place] [phone] * LACTATE DEHYDROGENASE (LD) (06/12/2023 2:25 PM CDT) LDH 152 140 - 271 U/L [facility] Blood 06/12/2023 2:[address] [facility] - 06/12/2023 3:29 PM CDT Release to patient->Immediate Buzz Sales PAC CHEMISTRY ORDERABLES Final Result [facility] [address] [place] [address], [place] [phone] * (ABNORMAL) IRON W/ IRON BINDING CAPACITY [place] (06/12/2023 2:25 PM CDT) IRON 64 50 - 212 ug/dL [facility] TRANSMISSION MECHANIC [facility] UIBC 188 155 - 355 ug/dL [facility]SMISSION MECHANIC [facility] TIBC 252(L) 261 - 478 ug/dl [facility] TRANSMISSION MECHANIC [facility] % Saturation 25 20 - 50 % [facility] TRANSMISSION MECHANIC [facility] Blood 06/12/2023 2:25 PM CDT Narrative [facility] TRANSMISSION MECHANIC [facility] - 06/12/2023 3:29 PM CDT Release to patient->Immediate us Buzz Sales PAC LAB SEND OUTS Final Resu lt [facility] TRANSMISSION MECHANIC [facility] [address] [place] [address], [place] [phone] * FERRITIN (06/12/2023 2:25 PM CDT) Ferritin 69 11 - 307 ng/mL [facility] TRANSMISSION MECHANIC [facility] Blood 06/12/2023 2:25 PM CDT Narrative [facility] - 06/13/2023 3:29 PM CDT Release to patient->Immediate us Buzz Sales PAC CHEMISTRY ORDERABLES Final Result Performing Organization Address [facility]/ZIP Co de Phone Number CANCER TRANSMISSION MECHANIC [facility] [address] [place] [address], [place] [phone] * (ABNORMAL) VITAMIN B12 (06/12/2023 2:25 PM CDT) Vitamin B12 1,442(H) 180 - 914 pg/mL [facility] TRANSMISSION MECHANIC [facility] Blood 06/12/2023 2:25 PM CDT Narrative [facility] - 06/13/2023 3:29 PM CDT Release to patient->Immediate us Buzz Sales PAC CHEMISTRY ORDERABLES Final Result [facility] TRANSMISSION MECHANIC [facility] [address] [place] [address], * IMMUNOGLOBULIN IGA, IGG & IGM QUANT (06/12/2023 2:25 PM CDT) IGG 960 635 - 1,741 mg/dL [facility] IGA 238 66 - 433 mg/dL [facility] IGM 101 45 - 281 mg/dL [facility] TRANSMISSION MECHANIC [facility] Blood 06/12/2023 2:25 PM CDT Narrative [facility] TRANSMISSION MECHANIC [facility] - 06/13/2023 3:31 PM CDT Release to patient->Immediate Buzz Sales PAC CHEMISTRY ORDERABLES Final Result [facility] TRANSMISSION MECHANIC [facility] [address] [place] [address], * ELECTROPHORESIS W/ TOTAL PROTEIN SERUM (06/12/2023 2:25 PM CDT) PROTEIN, TOTAL, SERUM 6.2 6.0 - 8.5 G/DL [facility] TRANSMISSION MECHANIC [facility] ALBUMIN 3.1 2.9 - 4.4 G/DL [facility] TRANSMISSION MECHANIC [facility] [id number] 0.3 0.0 - 0.4 G/DL [facility] TRANSMISSION MECHANIC [facility] [id number] 0.9 0.4 - 1.0 G/DL [facility]ER TRANSMISSION MECHANIC [facility] BETA GLOBULIN 0.9 0.7 - 1.3 G/DL [facility] TRANSMISSION MECHANIC [facility] GAMMA GLOBULIN 1.0 0.4 - 1.8 G/DL [facility] TRANSMISSION MECHANIC [facility] M-SPIKE NOT OBSERVED NOT OBSERVED G/DL [facility] TRANSMISSION MECHANIC [facility] GLOBULIN, TOTAL 3.1 2.2 - 3.9 G/DL [facility] TRANSMISSION MECHANIC [facility] A/G RATIO 1.0 0.7 - 1.[address] [facility] PLEASE NOTE: COMMENT [facility]ER TRANSMISSION MECHANIC [facility] Comment: PROTEIN ELECTROPHORESIS SCAN WILL FOLLOW VIA COMPUTER, MAIL, OR TOWING PILOT DELIVERY. PDF . [facility] Blood 06/12/2023 2:25 PM CDT Narrative [facility]CER TRANSMISSION MECHANIC [facility] - 06/13/2023 3:09 PM CDT TESTING PERFORMED AT: [] [facility], [address] [place] [address], [id number], PHONE: [phone], ROLL RECLAIMER: PEGGY MARCUS, PHD Release to patient->Immediate Buzz Sales PAC CHEMISTRY ORDERABLES Final Result Performing Organization Address [facility]/ZIP Co de Phone Number [facility]CER TRANSMISSION MECHANIC [facility] [address] [place] [address], [place] [phone] * IMMUNOFIXATION, SERUM [place] (06/12/2023 2:25 PM CDT) IMMUNOFIXATION RESULT, SERUM COMMENT: CANCER TRANSMISSION MECHANIC [facility] Comment: PRESENCE OF MONOCLONAL PROTEIN IS UNCLEAR AT THIS TIME. SUGGEST REPEAT IN 3 TO 6 MONTHS IF CLINICALLY INDICATED. 06/12/2023 2:25 PM CDT Narrative [facility]CER TRANSMISSION MECHANIC [facility] - 06/13/2023 3:09 PM CDT TESTING PERFORMED AT: [] [facility], [address] [place] [address], [address], PHONE: [phone], ROLL RECLAIMER: PEGGY MARCUS, PHD Release to patient->Immediate Buzz Sales PAC LAB SEND OUTS Final Resu lt Performing Organization Address [facility]/ZIP Co de Phone Number CANCER TRANSMISSION MECHANIC [facility] [place] [address] [place] [address], [place] [phone] * (ABNORMAL) FREE KAPPA & LAMBDA LIGHT CHAINS SERUM (06/12/2023 2:25 PM CDT) FREE KAPPA LT CHAINS,S 113.4(H) 3.3 - 19.4 MG/L [facility]CER TRANSMISSION MECHANIC [facility] FREE LAMBDA LT CHAINS,S 91.9(H) 5.7 - 26.3 MG/L [facility] TRANSM[facility] OF [place] FREE KAPPA/FREE LAMBDA RATIO LT CHAINS 1.23 0.26 - 1.65 [facility]ER TRANSMISSION MECHANIC [facility] Blood 06/12/2023 2:25 PM CDT Narrative [facility] - 06/13/2023 3:09 PM CDT TESTING PERFORMED AT: [] [facility], [place], [address], PHONE: [phone], ROLL RECLAIMER: PEGGY MARCUS, PHD Release to patient->Immediate Buzz Sales PAC CHEMISTRY ORDERABLES Final Result Performing Organization Address City/[facility]/ZIP Co de Phone Number [facility] [place] [address], [place] [phone] * (ABNORMAL) BETA 2 MICROGLOBULIN (06/12/2023 2:25 PM CDT) [id number] 11.54(H) 0.97 - 1.84 mg/L [facility] Blood 06/12/2023 2:[address] [facility] - 06/13/2023 3:31 PM CDT Release to patient->Immediate Buzz Sales PAC CHEMISTRY ORDERABLES Final Result Performing Organization Address City/[facility] Co de Phone Number [facility] [place] [address], [place] [phone] documented in this encounter Visit Diagnoses Diagnosis Hypogammaglobulinemia (HCC) Hypogammaglobulinaemia, unspecified Anemia of unknown etiology Anemia, unspecified documented in this encounter Additional Health Concerns Assessment Noted Time PHQ-9 Depression Total Score: 0 03/08/20 21 11:06 AM CDT documented as of this encounter 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
--- OUTSIDE RECORDS SUMMARY | 2024-08-29 03:45 | XMS_ITS | Clinical Summary ---
Author Organization [facility] Address [address] [place] [address] Phone Care Team Providers Care Capital Project Engineer Name Role Phone Jonatan Worley Primary Care Provider [phone] Srinivasa Lee MD Unavailable [phone] Allergies Active Allergy Reactions Criticality Noted Date Comments Penicillins Other (see Comments) 07/28/2020 'black out' Medications rosuvastatin (CRESTOR) 5 MG Tablet TAKE 1 TABLET BY MOUTH ONCE DAILY 07/12/2020 Active glimepiride (AMARYL) 4 MG Tablet TAKE 1 TABLET BY MOUTH ONCE DAILY 07/13/2020 Active ergocalciferol (VITAMIN D) 00153 UNIT Capsule 07/19/2020 Active dorzolamide (TRUSOPT) 2 % Solution INSTILL 1 DROP INTO RIGHT EYE 4 TIMES DAILY 07/14/2020 Active brimonidine (ALPHAGAN) 0.2 % Solution INSTILL 1 DROP INTO EACH EYE TWICE DAILY 07/13/2020 Active timolol (TIMOPTIC) 0.5 % Solution INSTILL 1 DROP INTO EACH EYE TWICE DAILY 07/13/2020 Active Dapagliflozin Propanediol (Farxiga) 10 MG Tablet Take 1 Tablet by mouth. 07/03/2021 Active amLODIPine (NORVASC) 5 MG Tablet TAKE 1 TABLET BY MOUTH ONCE DAILY 02/25/2022 Active glimepiride (AMARYL) 2 MG Tablet Take 2 mg by mouth every morning. Active Cholecalciferol 2000 UNIT Capsule Take 2,000 Units by mouth. 02/06/2023 Active Cyanocobalamin (VITAMIN B-12) 1000 MCG Tablet Take 1,000 mcg by mouth. Active hydrALAZINE 50 MG Tablet TAKE 1 TABLET BY MOUTH IN THE MORNING AND 1 IN THE EVENING AND 1 EVERY DAY BEFORE BEDTIME 06/09/2023 Active metoprolol Succinate (TOPROL-XL) 100 MG TABLET SR 24 HR Take 100 mg by mouth daily. Active ferrous sulfate 325 (65 Fe) MG Tablet Take 325 mg by mouth. 01/01/2024 Active sodium bicarbonate 650 MG Tablet take one orally TID 01/01/2024 Active Active Problems Problem Noted Date Diagnosed Date Anemia in stage 3b chronic kidney disease 2022 Atrophy of kidney 07/03/2021 Acute renal failure syndrome 06/05/2021 Hypertension 06/05/2021 Stage 3b chronic kidney disease 06/05/2021 Type II or unspecified type diabetes mellitus with renal manifestations, uncontrolled(250.42) 06/05/2021 Anemia of unknown etiology 07/28/2020 Hypogammaglobulinemia 07/28/2020 Hyperlipidemia 06/16/2019 Encounters Date Type Department Care Team Description 06/17/2024 2:40 PM CDT Lab [facility] [address] [id number] Lab, [facility] [place] Hypogammaglobulinemia (HCC); 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); Iron deficiency 06/17/2024 2:00 PM CDT Office Visit [facility] [address] [address] Esther Oreilly APRN, CYBER INCIDENT RESPONDER Hypogammaglobulinemia (HCC) (Primary Dx); 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); Iron deficiency 06/17/2024 Travel from Last 3 Months Family History Relation Name Status Comments Brother Alive Father Mother Sister 1 Alive Sister 2 Alive Social History Tobacco Use Types Packs/Day Years [...] on file Legal Sex 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 Gender Identity Not on file Sexual Orientation Not on file Last Filed Vital Signs Vital Sign Reading [...] Mass Index 32.64 06/17/2024 2:12 PM CDT Plan of Treatment Upcoming Encounters Date Type Department Care Team (Late st Contact Info) Description 10/18/2024 1:30 PM ASSISTANT TENNIS PROFESSIONAL Office Visit [facility] [address] [address] Srinivasa Lee MD [address] [place], [place] [id number] Health Maintenance Due Date Last Done Comments Hepatitis C Virus (HCV) Screening 1960 TdaP Immunization 1961 Pneumococcal Immunization Co mbined (1 of 2 - PCV) 12/23/1967 Pneumococcal Immunization (5 0+ years) (1 of 2 - PCV) 1980 Pap Smear 1982 Cervical Cancer Screening (CCS) 12/23/1991 HPV/Cotest 12/23/1991 Colonoscopy 2006 Colorectal Cancer Screening 2006 Cologuard 12/23/2011 Immunochemical Fecal Occult Blood 12/23/2011 Mammogram 12/23/2011 Zoster Immunization (1 of 2) 12/23/2011 Respiratory Syncytial Virus (RSV) Immunization (Adult) (1 - Risk 60-74 years 1-dose series) 2021 Influenza Immunization (#1) 2024 SARS-COV-2 Immunization (2023- season) 2024 Hepatitis B Immunization Aged Out No longer eligible based on patient's age to complete this topic Meningococcal Immunization (ACWY) Aged Out No longer eligible based on patient's age to complete this topic Rotavirus Immunization Aged Out No lo nger eligible based on patient's age to complete this topic Procedures Procedure Name Priority Date/Time Associated Diagnosis Comments CBC WITH AUTO DIFF OH Routine 06/17/2024 2:52 PM CDT CMP (COMPREHENSIVE METABOLIC PANEL) Routine 06/17/2024 2:52 PM CDT Hypogammaglobuline ellen (HCC) 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) Iron deficiency LACTATE DEHYDROGENASE (LD) Routine 06/17/2024 2:52 PM CDT Hypogammaglobuline ellen (HCC) 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) Iron deficiency VITAMIN B12 Routine 06/17/2024 2:52 PM CDT Hypogammaglobuline ellen (HCC) 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) Iron deficiency FOLIC ACID (FOLATE) Routine 06/17/2024 2 :52 PM CDT Hypogammaglobuline ellen (HCC) 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) Iron deficiency FERRITIN Routine 06/17/2024 2:52 PM CDT Hypogammaglobuline ellen (HCC) 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) Iron deficiency IRON W/ IRON BINDING CAPACITY OH Routine 06/17/2024 2:52 PM CDT Hypogammaglobuline ellen (HCC) 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) Iron deficiency RETICULOCYTE COUNT (RETIC) Routine 06/17/2024 2:52 PM CDT Hypogammaglobuline ellen (HCC) 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) Iron deficiency IMMUNOGLOBULIN IGA, IGG & IGM QUANT Routine 06/17/2024 2:52 PM CDT Hypogammaglobuline ellen (HCC) 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) Iron deficiency ELECTROPHORESIS W/ TOTAL PROTEIN SERUM Routine 06/17/2024 2:52 PM CDT Hypogammaglobuline ellen (HCC) 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) Iron deficiency IMMUNOFIXATION, SERUM OH Routine 06/17/2024 2:52 PM CDT Hypogammaglobuline ellen (HCC) 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) Iron deficiency SERUM FREE LIGHT CHAINS, OH Routine 06/17/2024 2:52 PM CDT Hypogammaglobuline ellen (HCC) 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) Iron deficiency from Last 3 Months Results * (ABNORMAL) SERUM FREE LIGHT [place]AINS, [place] (06/17/2024 2:52 PM CDT) FREE KAPPA LT CHAINS 189.1(H) 2.9 - 20.7 mg/L [facility] FREE LAMBDA LT CHAINS 167.5(H) 4.2 - 27.6 mg/L [facility] KAPPA/LAMBDA RATIO 1.13 0.22 - 1.74 [facility] 06/17/2024 2:52 PM CDT Narrative [facility] - 06/18/2024 1:11 PM CDT Release to patient->Immediate us Esther Oreilly YARD HAND, CYBER INCIDENT RESPONDER LAB SEND OUTS F inal Result [facility] [place] [address], * (ABNORMAL) IRON W/ IRON BINDING CAPACITY [place] (06/17/2024 2:52 PM CDT) IRON 25(L) 50 - 212 ug/dL [facility] UIBC 194 155 - 355 ug/dL [facility] TIBC 219(L) 261 - 478 ug/dl [facility] % Saturation 11(L) 20 - 50 % [facility] 06/17/2024 2:52 PM CDT Narrative [facility] - 06/17/2024 3:35 PM CDT Release to patient->Immediate Esther Oreilly APRN, CYBER INCIDENT RESPONDER LAB SEND OUTS F inal Result Performing Organization Address [facility] Co de Phone Number [facility] [address] [address], [place] [phone] * IMMUNOFIXATION, SERUM [place] (06/17/2024 2:52 PM CDT) IMMUNOFIXATION RESULT, SERUM COMMENT [facility] Comment:NO MONOCLONALITY DET ECTED. 06/17/2024 2:52 PM CDT Narrative [facility] - 06/18/2024 3:10 PM CDT TESTING PERFORMED AT: [] [facility], [address] [place] [address], [address], PHONE: [phone], AMMONIA DISTILLER: PEGGY MARCUS, PHD Release to patient->Immediate Esther Oreilly APRN, CYBER INCIDENT RESPONDER LAB SEND OUTS F inal Result Performing Organization Address [facility]/ZIP Co de Phone Number [facility] [address] [place] [address], [place] [phone] * (ABNORMAL) CBC WITH AUTO DIFF [place] (06/17/2024 2:52 PM CDT) WBC 6.5 4.0 - 10.0 10*3/uL [facility] HGB 9.4(L) 11.2 - 15.7 g/dL [facility] HCT 30.2(L) 34.1 - 44.9 % [facility] PLT 177 163 - 369 10*3/uL [facility] MPV 9.2(L) 9.4 - 12.4 fL [facility] RBC 3.40(L) 3.93 - 5.22 10*6/uL [facility] MCV 89 79 - 95 fL [facility] MCH 27.6 25.6 - 32.2 pg [facility] MCHC 31.1(L) 32.2 - 36.5 g/dL [facility] RDW 15.4(H) 11.6 - 14.4 % [facility] Neutrophils % 72.1(H) 36.0 - 66.0 % [facility] Lymphocytes % 17.4(L) 19.0 - 40.0 % [facility] Monocytes % 6.2 4.1 - 12.1 % [facility] Eosinophils % 3.2 0.0 - 3.5 % [facility] Basophils % 0.5 0.0 - 1.0 % [facility] Absolute Neutrophils 4.7 1.4 - 6.6 10*3/uL [facility] Absolute Lymphocytes 1.1 0.8 - 4.0 10*3/uL [facility] Absolute Monocytes 0.4 0.2 - 1.2 10*3/uL [facility] Absolute Eosinophils 0.2 0.0 - 0.4 10*3/uL [facility] Absolute Basophils 0.0 0.0 - 0.1 10*3/uL [facility] 06/17/2024 2:52 PM CDT us Esther Oreilly YARD HAND, CYBER INCIDENT RESPONDER LAB SEND OUTS F inal Result [facility] [address] [place] [address], * (ABNORMAL) VITAMIN B12 (06/17/2024 2:52 PM CDT) Vitamin B12 1,009(H) 180 - 914 pg/mL [facility] Blood 06/17/2024 2:52 PM CDT [facility] - 06/21/2024 7:57 AM CDT Release to patient->Immediate Esther Oreilly APRN, CNP CHEMISTRY ORDERAB LES Final Result Performing Organization Address [facility] de Phone Number [facility] [place] [address], * RETICULOCYTE COUNT (RETIC) (06/17/2024 2:52 PM CDT) Reticulocyte count 1.70 0.50 - 1.70 % [facility] RET-He 29.80 28.20 - 36.[address] [facility] Comment: RET-He is a direct assessment of incorporation of iron into erythrocyte hemoglobin. It provides an indirect measure of the iron available for new erythropoiesis over past 2-4 days. Blood 06/17/2024 2:[address] [facility] - 06/17/2024 3:03 PM CDT Release to patient->Immediate Esther Oreilly APRN, CNP HEMATOLOGY ORDERA BLES Final Result Performing Organization Address [facility] de Phone Number [facility] [place] [address], * LACTATE DEHYDROGENASE (LD) (06/17/2024 2:52 PM CDT) LDH 183 140 - 271 U/L [facility] Blood 06/17/2024 2:[address] [facility] - 06/17/2024 3:35 PM CDT Release to patient->Immediate Esther Oreilly YARD HAND, CYBER INCIDENT RESPONDER CHEMISTRY ORDERAB LES Final Result Performing Organization Address [facility]/ZIP Co de Phone Number [facility] [address] [place] [address], [place] [phone] * (ABNORMAL) IMMUNOGLOBULIN IGA, IGG & IGM QUANT (06/17/2024 2:52 PM CDT) IGG 1,383 635 - 1,741 mg/dL [facility] IGA 217 66 - 433 mg/dL [facility] IGM 462(H) 45 - 281 mg/dL [facility] Blood 06/17/2024 2:52 PM CDT [facility] - 06/18/2024 1:11 PM CDT Release to patient->Immediate Esther Oreilly APRN, CYBER INCIDENT RESPONDER CHEMISTRY ORDERAB LES Final Result Performing Organization Address [facility] Co de Phone Number [facility] [place] [address], [place] [phone] * FOLIC ACID (FOLATE) (06/17/2024 2:52 PM CDT) Folate 8.45 >=5.90 ng/mL [facility] Blood 06/17/2024 2:52 PM CDT [facility] - 06/21/2024 7:57 AM CDT Release to patient->Immediate IS THE PATIENT REQUIRED TO BE FASTING FOR 12 HOURS?->No Esther Oreilly APRN, CYBER INCIDENT RESPONDER CHEMISTRY ORDERAB LES Final Result Performing Organization Address [facility]/ZIP Co de Phone Number [facility] [place] [address], [place] [phone] * FERRITIN (06/17/2024 2:52 PM CDT) Ferritin 126 11 - 307 ng/mL [facility] Blood 06/17/2024 2:52 PM CDT Narrative [facility] - 06/21/2024 7:57 AM CDT Release to patient->Immediate Esther Oreilly YARD HAND, CYBER INCIDENT RESPONDER CHEMISTRY ORDERAB LES Final Result [facility] [address] [place] [address], * (ABNORMAL) ELECTROPHORESIS W/ TOTAL PROTEIN SERUM (06/17/2024 2:52 PM CDT) PROTEIN, TOTAL, SERUM 6.1 6.0 - 8.5 G/DL [facility] ALBUMIN 2.7(L) 2.9 - 4.4 G/DL [facility] [id number] 0.3 0.0 - 0.4 G/DL [facility] [id number] 0.8 0.4 - 1.0 G/DL [facility] BETA GLOBULIN 0.8 0.7 - 1.3 G/DL [facility] GAMMA GLOBULIN 1.5 0.4 - 1.8 G/DL [facility] M-SPIKE NOT OBSERVED NOT OBSERVED G/DL [facility] GLOBULIN, TOTAL 3.4 2.2 - 3.9 G/DL [facility] A/G RATIO 0.8 0.7 - 1.7 [facility] PLEASE NOTE: COMMENT [facility] Comment: PROTEIN ELECTROPHORESIS SCAN WILL FOLLOW VIA COMPUTER, MAIL, OR GAMBLING DEALER DELIVERY. PDF . [facility] Blood 06/17/2024 2:52 PM CDT Narrative [facility] - 06/18/2024 3:10 PM CDT TESTING PERFORMED AT: [] [facility], [address] [place] [address], [place], [address], PHONE: [phone], AMMONIA DISTILLER: PEGGY MARCUS, PHD Release to patient->Immediate us Esther Oreilly APRN, CHERELLE CHEMISTRY ORDERAB LES Final Result [facility] [place] [address], [place] [phone] * (ABNORMAL) CMP (COMPREHENSIVE METABOLIC PANEL) (06/17/2024 2:52 PM CDT) Glucose 227(H) 70 - 105 mg/dL [facility] Blood Urea Nitrogen 35(H) 7 - 25 mg/dL [facility] Creatinine 2.5(H) 0.6 - 1.2 mg/dL [facility] Sodium 134(L) 136 - 145 mEq/L [facility] Potassium 4.9 3.5 - 5.1 mEq/L [facility] Chloride 103 98 - 107 mEq/L [facility] Bicarbonate 20(L) 21 - 31 mEq/L [facility] Total Bilirubin 0.5 0.3 - 1.0 mg/dL [facility] Alk. Phosphatase 77 34 - 104 U/L [facility] Aspartate Aminotransferase 17 13 - 39 U/L [facility] Alanine Aminotransferase 8 7 - 52 U/L [facility] Total Protein 6.2(L) 6.4 - 8.9 g/dL [facility] Albumin 3.1(L) 3.5 - 5.7 g/dL [facility] Calcium 8.6 8.6 - 10.3 mg/dL [facility] Anion Gap 15.9(H) 7.0 - 15.0 mEq/L [facility] Globulin 3.1 2.0 - 3.5 g/dL [facility] EGFR 21(L) >60 ml/min/1. 73m2 [facility] Comment: This eGFR is calculated using 2020 CKD-EPI Creatinine equation without race modifier based on the NKF-ASN task force recommendations Blood 06/17/2024 2:52 PM CDT Narrative [facility] - 06/17/2024 3:35 PM CDT Release to patient->Immediate IS THE PATIENT REQUIRED TO BE FASTING FOR 8 HOURS?->No us Esther Oreilly YARD HAND, CYBER INCIDENT RESPONDER CHEMISTRY ORDERAB LES Final Result [facility] [place] [address], from Last 3 Months Insurance [place] TOVAR [id number] Care Teams Capital Project Engineer Relationship Specialty Start Date End Date Meir Jonatan [address] [place] [address] PCP - General Family Medicine 07/12/20 Srinivasa Lee MD [address] [place] [id number] Consulting Physician Oncology 07/12/20
--- OUTSIDE RECORDS SUMMARY | 2024-08-29 03:45 | XMS_ITS | Clinical Summary ---
Author Organization [facility] Address [address] [place] [address]. [place], [place] [id number] [place] [id number] Care Team Providers Care Sales Professional Bilingual Name Role Phone Unavailable Primary Care Provider Unavailabl e Social History Tobacco Use Types Packs/Day Years Used Date Smoking Tobacco: Never Assessed Comments Unknown Sex and Gender Information Value Date Recorded Sex Assigned at Not on file Legal Sex Female 7:14 PM CDT Gender Identity Not on file Sexual Orientation Not on file Plan of Treatment Health Maintenance Due Date Last Done Comments Cervical Cancer Screening Pa p Smear (Age 30 to 64) Every 3 Years 1961 Colorectal Cancer Screening Colonoscopy (10 Years) 1961 Annual Physical 1964 Hepatitis C 12/23/1979 DTaP, Tdap and Td Vaccines ( 1 - Tdap) 1980 Cervical Cancer Screening Pa p with HPV Testing (Age 30 to 64) Every 5 Years 12/23/1991 Cervical Cancer Screening with HPV 12/23/1991 Mammogram Screening 2001 Zoster Vaccines (1 of 2) 12/23/2011 COVID-19 Vaccine (2023-2 5 season) 2024 Influenza Adult (#1) 2024 RSV Immunization or 60+ Years (1 - 1-dose 75+ series) 2036 Meningococcal Vaccine Aged Out No jose luis eduardo eligible based on patient's age to complete this topic Pneumococcal Vaccine: Pediat rics (0 to 5 Years) and At-Risk Patients (6 to 64 Years) Aged Out No longer eligible b ased on patient's age to complete this topic RSV Immunizations Under 20 Months Aged Out No longer eligible based on patient's age to complete this topic
--- OUTSIDE RECORDS SUMMARY | 2024-08-29 03:45 | XMS_ITS | Encounter Summary ---
Author Organization [facility] Address [address] [place] [address] Phone Care Team Providers Care Nursing Surgical Services Director Name Role Phone Jonatan Worley Primary Care Provider Srinivasa Lee MD Unavailable Reason for Visit * Reason Comments Follow-up Encounter Details Date Type Department Care Team (Latest Contact Info) Description 10/23/2023 2:15 PM CUSTOMER SUPPORT COORDINATOR [facility] [address] [phone] Srinivasa Lee MD [phone] [address] Hypogammaglobulinemia (HCC) (Primary Dx); Anemia in stage 3b chronic kidney disease Social History Tobacco Use Types Packs/Day Years [...] on file Legal Sex Female 11:51 AM CUSTOMER SUPPORT COORDINATOR Gender Identity Not on file Sexual Orientation Not on file documented as of this encounter Last Filed Vital Signs Vital Sign Reading Time Taken Comments Blood Pressure 136/82 10/23/2023 2:11 PM CUSTOMER SUPPORT COORDINATOR Pulse 72 10/23/2023 2:11 PM CUSTOMER SUPPORT COORDINATOR Temperature 36.6 ??C (97.8 ??F) 10/23/2023 2:11 PM CS T Respiratory Rate 18 10/23/2023 2:11 PM CUSTOMER SUPPORT COORDINATOR Oxygen Saturation 99% 10/23/2023 2:11 PM CUSTOMER SUPPORT COORDINATOR Inhaled Oxygen Concentration - - Weight 103.5 kg (228 lb 3.2 oz) 10/23/2023 2:11 PM CUSTOMER SUPPORT COORDINATOR Height 170.2 cm (5' 7 ) 10/23/2023 2:11 PM CUSTOMER SUPPORT COORDINATOR Body Mass Index 35.74 10/23/2023 2:11 PM CUSTOMER SUPPORT COORDINATOR documented in this encounter Functional Status * Question Answer Date of Assessment Author Little interest or pleasure in doing things Not at all 10/23/2023 2:11 PM CUSTOMER SUPPORT COORDINATOR Jatin Napier CMA Feeling down, depressed, or hopeless Not at all 10/23/2023 2:11 PM CUSTOMER SUPPORT COORDINATOR Deyanira Napier CMA * Over the past 2 weeks, how often have you been bothered by any of the following problems? Question Answer Date of Assessment Author Patient Health Questionnaire-2 Score 0 10/23/2023 2:11 PM CUSTOMER SUPPORT COORDINATOR Tereza Napier CMA documented as of this encounter Progress Notes * Srinivasa Lee MD - 10/23/2023 2:15 PM CST Images from the original note were not included. Patient: Arely Ernandez Age: 62 y.o. : 1960 [facility] En[facility] Date: 10/23/2023 Care Team: Current Providers PCP: Jonatan Worley Care Team Provider: Srinivasa Lee MD Encounter Provider: Srinivasa Lee MD Referring Provider: not found Consulting Physician: Srinivasa Lee MD HISTORY OF PRESENT ILLNESS: The patient continues to be on oral iron one pill a day. Her appetite is okay. No major changes. Creatinine is 2.6. She still has anemia of chronic kidney disease but not to the point that would require initiating EPO. She has not been transfusion dependent. She has not had any recent infection or hospitalization. Her last IgG checked six months ago was okay. DIAGNOSIS: 1. Hypogammaglobulinemia 2. Anemia. 3. Chronic [...] discussed with the patient. PLAN: 1. Repeat CBC, iron studies, and anemia panel. 2. As long as hemoglobin remains stable, we will continue oral iron and not consider erythropoietin. If there is a trend to her being transfusion dependent, we will consider iron. TIME SPENT: PAST MEDICAL HISTORY, PAST SURGICAL [...] No clubbing, cyanosis, or edema. LABORATORY/PATHOLOGY/IMAGING NOTES: All lab results shown below reviewed. Srinivasa Lee MD/denisa Vitals: Vitals: 10/23/23 1411 BP: 136/82 BP Location: Left Arm BP Position: Sitting BP Cuff Size: Regular Pulse: 72 Resp: 18 Temp: 97.8 ??F (36.6 ??C) TempSrc: Temporal SpO2: 99% Weight: 228 lb 3.2 oz (103.5 kg) Height: 5' 7 (1.702 m) Body surface area is 2.21 meters squared. Body mass index is 35.74 kg/m??. Pain Score: 0 - No pain Allergies: Allergies Allergen Reactions ??? Penicillins Other (see Comments) 'black out' PMH/SgH/FH/SH: Past medical, surgical, family and social histories were reviewed at this visit. Past Medical History Positives Diagnosis Date ??? Diabetes mellitus (HCC) ??? Hyperlipidemia ??? Hypertension Past Surgical History: Procedure Laterality Date ??? EYE SURGERY No family history on file. Family Status Relation Name Status ??? Mother ??? Father ??? Sister Alive ??? Brother Alive ??? Sister Alive Social History Socioeconomic History ??? Marital status: Spouse name: Richard ??? Number of children: 5 ??? Years of education: 12 ??? Highest education level: 12th grade Tobacco Use ??? Smoking status: Never ??? Smokeless tobacco: Never Vaping Use ??? Vaping Use: Never used Substance and Sexual Activity ??? Alcohol use: Not Currently ??? Sexual activity: Yes control/protection: Post-menopausal Other Topics Concern ??? Occupational Exposure No ??? Special Diet Yes Comment: diabetic Oncology History: Oncology History No history exists. Cancer Staging: Cancer Staging No matching staging information was found for the patient. Cumulative dose Purpose/Goal Comments Lifetime Dose Tracking No doses have been documented on this patient for the following tracked chemicals: Doxorubicin, Epirubicin, Idarubicin, Daunorubicin, Mitoxantrone, Bleomycin, Ifosfamide, Methotrexate, Cyclophosphamide, Cisplatin, Carboplatin Current Medications: Outpatient Encounter Medications as of 10/23/2023 Medication Sig Dispense Refill ??? amLODIPine (NORVASC) 5 MG Tablet TAKE 1 TABLET BY MOUTH ONCE DAILY ??? aspirin 81 MG Chewable Tablet Take 81 mg by mouth daily. ??? brimonidine (ALPHAGAN) 0.2 % Solution INSTILL 1 DROP INTO EACH EYE TWICE DAILY ??? Cholecalciferol 2000 UNIT Capsule Take 2,000 Units by mouth. ??? Cyanocobalamin (VITAMIN B-12) 1000 MCG Tablet Take 1,000 mcg by mouth. ??? Dapagliflozin Propanediol (Farxiga) 10 MG Tablet Take 1 Tablet by mouth. ??? dorzolamide (TRUSOPT) 2 % Solution INSTILL 1 DROP INTO RIGHT EYE 4 TIMES DAILY ??? ergocalciferol (VITAMIN D) 59345 UNIT Capsule ??? ferrous sulfate 325 (65 Fe) MG Tablet Take 1 Tablet by mouth daily. 30 Tablet 2 ??? glimepiride (AMARYL) 2 MG Tablet Take 2 mg by mouth every morning. ??? glimepiride (AMARYL) 4 MG Tablet TAKE 1 TABLET BY MOUTH ONCE DAILY ??? hydrALAZINE 50 MG Tablet TAKE 1 TABLET BY MOUTH IN THE MORNING AND 1 IN THE EVENING AND 1 EVERYDAY BEFORE BEDTIME ??? metoprolol Succinate (TOPROL-XL) 100 MG TABLET SR 24 HR Take 100 mg by mouth daily. ??? rosuvastatin (CRESTOR) 5 MG Tablet TAKE 1 TABLET BY MOUTH ONCE DAILY ??? timolol (TIMOPTIC) 0.5 % Solution INSTILL 1 DROP INTO EACH EYE TWICE DAILY No facility-administered encounter medications on file as of 10/23/2023. Labs: No visits with results within 7 Day(s) from this visit. Latest known visit with results is: Lab on 06/12/2023 Component Date Value Ref Range Status ??? G3SZRQD 06/12/2023 11.54 (H) 0.97 - 1.84 mg/L Final ??? FREE KAPPA LT CHAINS,S 06/12/2023 113.4 (H) 3.3 - 19.4 MG/L Final ??? FREE LAMBDA LT CHAINS,S 06/12/2023 91.9 (H) 5.7 - 26.3 MG/L Final ??? FREE KAPPA/FREE LAMBDA RATIO LT CH* 06/12/2023 1.23 0.26 - 1.65 Final ??? IMMUNOFIXATION RESULT, SERUM 06/12/2023 COMMENT: Final Comment: PRESENCE OF MONOCLONAL PROTEIN IS UNCLEAR AT THIS TIME. SUGGEST REPEAT IN 3 TO 6 MONTHS IF CLINICALLY INDICATED. ??? PROTEIN, TOTAL, SERUM 06/12/2023 6.2 6.0 - 8.5 G/DL Final ??? ALBUMIN 06/12/2023 3.1 2.9 - 4.4 G/DL Final ??? KMJOP-6-SHUALOAN 06/12/2023 0.3 0.0 - 0.4 G/DL Final ??? WQTIR-6-QWHVEWMD 06/12/2023 0.9 0.4 - 1.0 G/DL Final ??? BETA GLOBULIN 06/12/2023 0.9 0.7 - 1.3 G/DL Final ??? GAMMA GLOBULIN 06/12/2023 1.0 0.4 - 1.8 G/DL Final ??? M-SPIKE 06/12/2023 NOT OBSERVED NOT OBSERVED G/DL Final ??? GLOBULIN, TOTAL 06/12/2023 3.1 2.2 - 3.9 G/DL Final ??? A/G RATIO 06/12/2023 1.0 0.7 - 1.7 Final ??? PLEASE NOTE: 06/12/2023 COMMENT Final Comment: PROTEIN ELECTROPHORESIS SCAN WILL FOLLOW VIA COMPUTER, MAIL, OR ACCOUNTS PAYABLE ANALYST DELIVERY. ??? PDF 06/12/2023 . Final ??? IGG 06/12/2023 960 635 - 1,741 mg/dL Final ??? IGA 06/12/2023 238 66 - 433 mg/dL Final ??? IGM 06/12/2023 101 45 - 281 mg/dL Final ??? Vitamin B12 06/12/2023 1,442 (H) 180 - 914 pg/mL Final ??? Ferritin 06/12/2023 69 11 - 307 ng/mL Final ??? IRON 06/12/2023 64 50 - 212 ug/dL Final ??? UIBC 06/12/2023 188 155 - 355 ug/dL Final ??? TIBC 06/12/2023 252 (L) 261 - 478 ug/dl Final ??? % Saturation 06/12/2023 25 20 - 50 % Final ??? LDH 06/12/2023 152 140 - 271 U/L Final ??? Glucose 06/12/2023 161 (H) 70 - 105 mg/dL Final ??? Blood Urea Nitrogen 06/12/2023 37 (H) 7 - 25 mg/dL Final ??? Creatinine 06/12/2023 2.6 (H) 0.6 - 1.2 mg/dL Final ??? Sodium 06/12/2023 138 136 - 145 mEq/L Final ??? Potassium 06/12/2023 5.0 3.5 - 5.1 mEq/L Final ??? Chloride 06/12/2023 111 (H) 98 - 107 mEq/L Final ??? Bicarbonate 06/12/2023 19 (L) 21 - 31 mEq/L Final ??? Total Bilirubin 06/12/2023 0.3 0.3 - 1.0 mg/dL Final ??? Alk. Phosphatase 06/12/2023 89 34 - 104 U/L Final ??? Aspartate Aminotransferase 06/12/2023 16 13 - 39 U/L Final ??? Alanine Aminotransferase 06/12/2023 10 7 - 52 U/L Final ??? Total Protein 06/12/2023 6.2 (L) 6.4 - 8.9 g/dL Final ??? Albumin 06/12/2023 3.5 3.5 - 5.7 g/dL Final ??? Calcium 06/12/2023 9.0 8.6 - 10.3 mg/dL Final ??? Anion Gap 06/12/2023 13.0 7.0 - 15.0 mEq/L Final ??? Globulin 06/12/2023 2.7 2.0 - 3.5 g/dL Final ? ? EGFR 06/12/2023 20 (L) >60 ml/min/1.73m2 Final Comment: This eGFR is calculated using 2020 CKD-EPI Creatinine equation without race modifier based on the NKF-ASN task force recommendations ??? WBC 06/12/2023 9.8 4.0 - 10.0 10*3/uL Final ??? HGB 06/12/2023 10.0 (L) 11.2 - 15.7 g/dL Final ??? HCT 06/12/2023 31.3 (L) 34.1 - 44.9 % Final ??? PLT 06/12/2023 200 163 - 369 10*3/uL Final ??? MPV 06/12/2023 10.0 9.4 - 12.4 fL Final ??? RBC 06/12/2023 3.46 (L) 3.93 - 5.22 10*6/uL Final ??? MCV 06/12/2023 91 79 - 95 fL Final ??? MCH 06/12/2023 28.9 25.6 - 32.2 pg Final ??? MCHC 06/12/2023 31.9 (L) 32.2 - 36.5 g/dL Final ??? RDW 06/12/2023 12.9 11.6 - 14.4 % Final ??? Absolute Neutrophil Count 06/12/2023 6,546 cells/uL Final ??? Absolute Seg Count 06/12/2023 6,546 1,440 - 6,600 cells/uL Final ??? Absolute Lymph Count 06/12/2023 1,759 760 - 4,000 cells/uL Final ??? Absolute [place] Count 06/12/2023 586 160 - 1,200 cells/uL Final ??? Absolute Eos Count 06/12/2023 879 (H) 0 - 300 cells/uL Final ??? Segmented Neutrophils 06/12/2023 67 (H) 36 - 66 % Final ??? Lymphocytes 06/12/2023 18 (L) 19 - 40 % Final ??? Monocytes 06/12/2023 6 4 - 12 % Final ??? Eosinophils 06/12/2023 9 (H) 0 - 3 % Final ??? WBC Estimate 06/12/2023 Normal Final ??? Platelet Estimate 06/12/2023 Normal Final ??? RBC Morphology 06/12/2023 Normal Final OMER SUPPORT COORDINATOR OMER SUPPORT COORDINATOR documented in this encounter Plan of Treatment Upcoming Encounters Date Type Department Care Team (Late st Contact Info) Description 10/18/2024 1:30 PM CUSTOMER SUPPORT COORDINATOR [facility] [address] [phone] Srinivasa Lee MD [facility] [place] [address] [place] [id number] documented as of this encounter Visit Diagnoses Diagnosis Hypogammaglobulinemia (HCC)- Primary Hypogammaglobulinaemia, unspecified 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) documented in this encounter Additional Health Concerns Assessment Noted Time PHQ-9 Depression Total Score: 0 03/08/20 21 11:06 AM CDT documented as of this encounter Care Teams Nursing Surgical Services Director Relationship Specialty Start Date End Date Jonatan Worley [address] [facility] [place] [address] PCP - General Family Medicine 07/12/20 Srinivasa Lee MD [address] [place] [phone] Consulting Physician Oncology 07/12/20 documented as of this encounter
--- OUTSIDE RECORDS SUMMARY | 2024-08-29 03:45 | XMS_ITS | Encounter Summary ---
Author Organization [facility] Address [address] [place] [address]. [place] [id number] [place] [id number] Care Team Providers Care Manager Clinical Name Role Phone Unavailable Primary Care Provider Unavailabl e Encounter Details Date Type Department Care Team (Late st Contact Info) Description 10/28/2001 [place] [address] , Generic Conversion, Social History Tobacco Use Types Packs/Day Years Used Date Smoking Tobacco: Never Assessed Comments Unknown Sex and Gender Information Value Date Recorded Sex Assigned at Not on file Legal Sex Female 7:14 PM CDT Gender Identity Not on file Sexual Orientation Not on file documented as of this encounter Plan of Treatment Not on file documented as of this encounter Visit Diagnoses Not on filedocumented in this encounter
--- OUTSIDE RECORDS SUMMARY | 2024-08-29 03:45 | XMS_ITS | Encounter Summary ---
Author Organization [facility] Address [address] [place] [place] [address] Phone Care Team Providers Care Pension Adviser Name Role Phone Jonatan Worley Primary Care Provider Srinivasa Lee MD Unavailable [phone] Encounter Details Date Type Department Care Team (Late st Contact Info) Description 03/07/2023 Telephone [facility] [place] [address] [place] [address] Buzz Sales, PAC Social History Tobacco Use Types Packs/Day Years [...] on file Legal Sex Female 11:51 AM SEATER ASSEMBLER Gender Identity Not on file Sexual Orientation [...] Maldonado RN documented as of this encounter Miscellaneous Notes * Addendum Note - Maury Begum MA - 03/17/2023 1:37 PM CDTAddended by: MAURY BEGUM on: 03/17/2023 01:37 PM Modules accepted: Orders * Telephone Encounter - Maury Begum MA - 03/17/2023 1:36 PM CDT Returned call to patient and sent to preferred pharmacy, patient verbalizes understanding. * Telephone Encounter - Buzz Sales PAC - 03/17/2023 1:28 PM CDT Yes, she can try OTC oral ferrous sulfate 325mg daily Monitor for GI upset and constipation with oral iron pill B12 on the lower end of normal. Start OTC oral B12 1,000mcg daily * Telephone Encounter - Nova Sinclair RN - 03/17/2023 1:02 PM CDT Patient's calling asking if patient could try taking oral iron first instead of infusions. Please advise. * Telephone Encounter - Diana Maldonado RN - 03/13/2023 1:15 PM CDT Called and spoke with patient she is out of town and does not have schedule with her. She will return call when she returns to schedule Iron * Telephone Encounter - Diana Maldonado RN - 03/11/2023 3:37 PM CDT Called and spoke with patient she will return call, needs to check other appointments for scheduling Iron * Telephone Encounter - Maury Begum MA - 03/10/2023 3:20 PM CDT Attempted to call patient, no answer, unable to LVM. * Telephone Encounter - Maury Begum MA - 03/10/2023 3:17 PM CDT Images from the original note were not included. Guerita Doss RN You; Buzz Sales, PAC 4 minutes ago (3:12 PM) Brenda No routed conversation to Guerita Doss RN 6 hours ago (8:33 AM) Guerita Link [facility] You; [facility] Nurse Navigator Pool; Buzz Sales PAC; Srinivasa Lee MD; Armando Billingsley RN 7 hours ago (8:14 AM) CLOVER This plan has been built by pharmacy and is ready for your review. Thanks. Vanessa * Telephone Encounter - Maury Begum MA - 03/07/2023 11:56 AM CDT Please update patients plan and authorize. Will call to schedule once approved. Thank you. * Telephone Encounter - Buzz Sales PAC - 03/07/2023 11:36 AM CDT Set patient up with IV iron documented in this encounter Plan of Treatment Upcoming Encounters Date Type Department Care Team (Late st Contact Info) Description 10/18/2024 1:30 PM SEATER ASSEMBLER Office Visit [facility] [address] [place] [phone] Srinivasa Lee MD [address] [place] [address] [phone] documented as of this encounter Visit Diagnoses Not on filedocumented in this encounter Additional Health Concerns Assessment Noted Time PHQ-9 Depression Total Score: 0 03/08/20 21 11:06 AM CDT documented as of this encounter Care Teams Pension Adviser Relationship Specialty Start Date End Date Jonatan Worley [address] [place] [address] PCP - General Family Medicine 07/12/20 Srinivasa Lee MD [address] [place] [phone] Consulting Physician Oncology 07/12/20 documented as of this encounter
--- OUTSIDE RECORDS SUMMARY | 2024-08-29 03:45 | XMS_ITS | Encounter Summary ---
Author Organization [facility] Address [address] [place] [address] Phone Care Team Providers Care French Comber Name Role Phone Jonatan Worley Primary Care Provider Srinivasa Lee MD Unavailable [phone] Reason for Visit * Reason Comments Follow-up Encounter Details Date Type Department Care Team (Late st Contact Info) Description 06/12/2023 2:15 PM CDT Office Visit [facility] [place] [address] [place] [address] Esther Oreilly, EXTERNAL AUDITOR, TYPE ROLLING MACHINE OPERATOR [address] [place] [address] Anemia of unknown etiology (Primary Dx); Hypogammaglobulinemi a (HCC); Iron deficiency; Anemia in stage 3b chronic kidney disease Social History Tobacco Use Types Packs/Day Years Used Date Smoking Tobacco: Never Smokeless Tobacco: Never Tobacco Cessation:Counseling Given: Not Answered Alcohol Use Standard Drinks/Week Comments Not Currently [...] on file Legal Sex Female 11:51 AM SAGGER PREPARER Gender Identity Not on file Sexual Orientation Not on file COVID-19 Exposure Response Date Recorded In the last 10 days, have yo u been in contact with someone who was confirmed or suspected to have Coronavirus/COVID-19? No / Unsure 06/12/2023 2:04 PM CDT documented as of this encounter Last Filed Vital Signs Vital Sign Reading Time Taken Comments Blood Pressure 148/80 06/12/2023 2:21 PM CDT Pulse 70 06/12/2023 2:21 PM CDT Temperature 36.6 ??C (97.8 ??F) 06/12/2023 2:21 PM CD T Respiratory Rate - - Oxygen Saturation 98% 06/12/2023 2:21 PM CDT Inhaled Oxygen Concentration - - Weight 102 kg (224 lb 14.4 oz) 06/12/2023 2:21 P M CDT Height 170.2 cm (5' 7 ) 06/12/2023 2:21 PM CDT Body Mass Index 35.22 06/12/2023 2:21 PM CDT documented in this encounter Functional [...] Billingsley RN documented as of this encounter Progress Notes * Esther Rojas, DIDI, TYPE ROLLING MACHINE OPERATOR - 06/12/2023 2:15 PM CDT Images from the original note were not included. Patient: Arely Ernandez Age: 62 y.o. : 1960 Encounter Dept: [facility] Encounter Date: 06/12/2023 Care Team: Current Providers PCP: Jonatan Worley Care Team Provider: Srinivasa Lee MD Encounter Provider: Esther Rojas, EXTERNAL AUDITOR, TYPE ROLLING MACHINE OPERATOR Referring Provider: not found Nurse Practitioner: Esther Rojas, EXTERNAL AUDITOR, TYPE ROLLING MACHINE OPERATOR HISTORY OF PRESENT ILLNESS: Ms. Arely Ernandez returns to clinic for follow- up. Since her last visit, Arely states she has been doing fairly well. She was started on oral ferrous sulfate after her last visit as her iron levels were a bit lower. She has been tolerating this without any GI upset or constipation. Today, she denies any fevers, chills, night sweats, chest pain, abdominal pain, nausea, vomiting, diarrhea, constipation, bleeding, or unintentional weight loss. No new or worseningbone pain. Breathing overall is stable. She does note some occasional dyspnea on exertion. DIAGNOSIS: 1. Hypogammaglobulinemia 2. Anemia. 3. Chronic [...] screening discussed with the patient. PLAN: 1. At this time, I discussed with Arely that clinically she is doing stable. 2. Laboratory evaluation from 06/12/23 showed a white blood cell count of 9.8, hemoglobin 10.0, hematocrit 31.3, and platelet count of 200,000. MCV 91. MCH 28.9. CMP, LDH, iron studies ferritin, and paraprotein evaluation are still in process. 3. Continue oral ferrous sulfate 325 mg daily. If levels are still low, we could consider increasing to twice a day vs initiating IV iron. 4. Paraprotein labs have been more consistent with inflammation. We really only need to check theseevery six months. 5. Consider EPO injections in the future should hemoglobin drop and iron levels are normal. 6. I will have the patient return to clinic for follow-up with office visit and repeat labs again in four to five months. 7. I encouraged the patient to call with any questions, problems, or concerns that she may have. Dr. Lee was present in the clinic to answer any [...] NOTES: All lab results shown below reviewed. MD Esther Arriola, DNP, [facility]- Vitals: Vitals: 06/12/23 1421 BP: 148/80 BP Location: Left Arm BP Position: Sitting BP Cuff Size: Regular Pulse: 70 Temp: 97.8 ??F (36.6 ??C) TempSrc: Temporal SpO2: 98% Weight: 224 lb 14.4 oz (102 kg) Height: 5' 7 (1.702 m) Body surface area is 2.2 meters squared. Body mass index is 35.22 kg/m??. Pain Score: 0 - No pain [...] Current Medications: Outpatient Encounter Medications as of 06/12/2023 Medication Sig Dispense Refill ??? amLODIPine (NORVASC) [...] 4 TIMES DAILY ??? ergocalciferol (VITAMIN D) 14125 UNIT Capsule ??? ferrous sulfate 325 (65 Fe) MG Tablet Take 1 Tablet by mouth daily. 30 Tablet 2 ??? glimepiride (AMARYL) 2 MG Tablet Take 2 mg by mouth every morning. ??? glimepiride (AMARYL) 4 MG Tablet TAKE 1 TABLET BY MOUTH ONCE DAILY ??? [DISCONTINUED] hydrALAZINE 10 MG Tablet TAKE 1 TABLET BY MOUTH TWICE DAILY WITH FOOD ??? [DISCONTINUED] hydrALAZINE 25 MG Tablet Take 25 mg by mouth. ??? hydrALAZINE 50 MG Tablet TAKE 1 TABLET BY MOUTH IN THE MORNING AND 1 IN THE EVENING AND 1 EVERYDAY BEFORE BEDTIME ??? [DISCONTINUED] ketorolac, ophth, (ACULAR) 0.5 % Solution (Patient not taking: Reported on 03/07/2023) ??? [DISCONTINUED] loteprednol etabonate (LOTEMAX) 0.5 % Suspension INSTILL 1 DROP INTO RIGHT EYE 4TIMES DAILY (Patient not taking: Reported on 03/07/2023) ??? metoprolol Succinate (TOPROL-XL) 100 MG TABLET SR 24 HR Take 100 mg by mouth daily. ??? [DISCONTINUED] metoprolol Succinate (TOPROL-XL) 100 MG TABLET SR 24 HR TAKE 1 TABLET BY MOUTH ONCE DAILY (Patient not taking: Reported on 03/07/2023) ??? [DISCONTINUED] ofloxacin (OCUFLOX) 0.3 % Solution (Patient not taking: Reported on 03/07/2023) ??? [DISCONTINUED] prednisoLONE acetate (PRED FORTE) 1 % Suspension ??? rosuvastatin (CRESTOR) 5 MG Tablet TAKE 1 TABLET BY MOUTH ONCE DAILY ??? timolol (TIMOPTIC) 0.5 % Solution INSTILL 1 DROP INTO EACH EYE TWICE DAILY No facility-administered encounter medications on file as of 06/12/2023. Labs: Lab on 06/12/2023 Component Date Value Ref Range Status ??? IRON 06/12/2023 64 50 - 212 [...] 760 - 4,000 cells/uL Final ??? Absolute Holmes Count 06/12/2023 586 160 - 1,200 cells/uL [...] Final ??? RBC Morphology 06/12/2023 Normal Final Cosigned by Srinivasa Lee MD at 06/13/2023 11:56 AM CDT Electronically signed by Esther Rojas, EXTERNAL AUDITOR, TYPE ROLLING MACHINE OPERATOR at 06/12/2023 3:43 PM CDT documented in this encounter Plan of Treatment Upcoming Encounters Date Type Department Care Team (Late st Contact Info) Description 10/18/2024 1:30 PM SAGGER PREPARER [facility] [address] [address] Srinivasa Lee MD [facility] [place] [address] documented as of this encounter Results * RETICULOCYTE COUNT (RETIC) (10/23/2023 2:04 PM SAGGER PREPARER) Reticulocyte count 1.63 0.50 - 1.70 % [facility]OP[facility] SYSTEM EFFICIENCY MANAGER [facility] RET-He 33.30 28.20 - 36.60 pg [facility]ER DEVELOPMENT SYSTEM EFFICIENCY MANAGER [facility] Comment: RET-He is a direct assessment of incorporation of iron into erythrocyte hemoglobin. It provides an indirect measure of the iron available for new erythropoiesis over past 2-4 days. Blood 10/23/2023 2:04 PM SAGGER PREPARER Narrative [facility] DEVELOPMENT SYSTEM EFFICIENCY MANAGER [facility] - 10/23/2023 2:36 PM SAGGER PREPARER Release to patient->Immediate Esther Oreilly APRN, CNP HEMATOLOGY ORDERA BLES Final Result [facility] [address] [place] [address], [place] [phone] * (ABNORMAL) IRON W/ IRON BINDING CAPACITY [place] (10/23/2023 2:04 PM SAGGER PREPARER) IRON 58 50 - 212 ug/dL [facility] DEVELOPMENT SYSTEM EFFICIENCY MANAGER [facility] UIBC 186 155 - 355 ug/dL [facility] TIBC 244(L) 261 - 478 ug/dl [facility] % Saturation 24 20 - 50 % [facility] DEVELOPMENT SYSTEM EFFICIENCY MANAGER [facility] 10/23/2023 2:04 PM SAGGER PREPARER [place] [facility] - 10/23/2023 2:46 PM SAGGER PREPARER Release to patient->Immediate Esther Oreilly APRN, CHERELLE LAB SEND OUTS F inal Result [facility] [place] [address], [place] [phone] * FERRITIN (10/23/2023 2:04 PM SAGGER PREPARER) Ferritin 82 11 - 307 ng/mL [facility] DEVELOPMENT SYSTEM EFFICIENCY MANAGER [facility] Blood 10/23/2023 2:04 PM SAGGER PREPARER Narrative [facility] DEVELOPMENT SYSTEM EFFICIENCY MANAGER [facility] - 10/24/2023 1:52 PM SAGGER PREPARER Release to patient->Immediate Esther Oreilly APRN, TYPE ROLLING MACHINE OPERATOR CHEMISTRY ORDERAB LES Final Result Performing Organization Address [facility]/ZIP Co de Phone Number CANCER DEVELOPMENT SYSTEM EFFICIENCY MANAGER [facility] [address] [place] [address], [place] [phone] * FOLIC ACID (FOLATE) (10/23/2023 2:04 PM SAGGER PREPARER) Folate 12.59 >=5.90 ng/mL [facility] DEVELOPMENT SYSTEM EFFICIENCY MANAGER [facility] Blood 10/23/2023 2:04 PM SAGGER PREPARER Narrative [facility] - 10/24/2023 1:52 PM SAGGER PREPARER Release to patient->Immediate IS THE PATIENT REQUIRED TO BE FASTING FOR 12 HOURS?->No Esther Oreilly APRN, TYPE ROLLING MACHINE OPERATOR CHEMISTRY ORDERAB LES Final Result Performing Organization Address [facility]/ZIP Co de Phone Number CANCER DEVELOPMENT SYSTEM EFFICIENCY MANAGER [facility] [address] [place] [address], [place] [phone] * (ABNORMAL) VITAMIN B12 (10/23/2023 2:04 PM SAGGER PREPARER) Vitamin B12 1,281(H) 180 - 914 pg/mL [facility] Blood 10/23/2023 2:04 PM SAGGER PREPARER Narrative [facility] - 10/24/2023 1:52 PM SAGGER PREPARER Release to patient->Immediate Esther Oreilly APRN, TYPE ROLLING MACHINE OPERATOR CHEMISTRY ORDERAB LES Final Result Performing Organization Address City/[facility]/ZIP Co de Phone Number CANCER DEVELOPMENT SYSTEM EFFICIENCY MANAGER [facility] [address] [place] [address], [place] [phone] * LACTATE DEHYDROGENASE (LD) (10/23/2023 2:04 PM SAGGER PREPARER) LDH 158 140 - 271 U/L [facility] DEVELOPMENT [facility] Blood 10/23/2023 2:04 PM SAGGER PREPARER Narrative [facility]CER DEVELOPMENT SYSTEM EFFICIENCY MANAGER [facility] - 10/23/2023 2:46 PM SAGGER PREPARER Release to patient->Immediate Esther Oreilly EXTERNAL AUDITOR, TYPE ROLLING MACHINE OPERATOR CHEMISTRY ORDERAB LES Final Result CANCER DEVELOPMENT SYSTEM EFFICIENCY MANAGER [facility] [place] [address], * (ABNORMAL) CMP (COMPREHENSIVE METABOLIC PANEL) (10/23/2023 2:04 PM SAGGER PREPARER) Glucose 200(H) 70 - 105 mg/dL [facility] DEVELOPMENT SYSTEM EFFICIENCY MANAGER [facility] Blood Urea Nitrogen 54(H) 7 - 25 mg/dL [facility] Creatinine 2.8(H) 0.6 - 1.2 mg/dL [facility] DEVELOPMENT SYSTEM [facility] Sodium 134(L) 136 - 145 mEq/L [facility] Potassium 5.3(H) 3.5 - 5.1 mEq/L [facility] Chloride 108(H) 98 - 107 mEq/L [facility] Bicarbonate 19(L) 21 - 31 mEq/L [facility] Total Bilirubin 0.4 0.3 - 1.0 mg/dL [facility] Alk. Phosphatase 61 34 - 104 U/L [facility] DEVELOPMENT SYSTEM [facility] Aspartate Aminotransferase 18 13 - 39 U/L [facility] DEVELOPMENT SYSTEM [facility] Alanine Aminotransferase 14 7 - 52 U/L [facility] DEVELOPMENT SYSTEM [facility] Total Protein 5.7(L) 6.4 - 8.9 g/dL [facility] Albumin 3.4(L) 3.5 - 5.7 g/dL [facility] Calcium 8.3(L) 8.6 - 10.3 mg/dL [facility] Anion Gap 12.3 7.0 - 15.0 mEq/L [facility] Globulin 2.3 2.0 - 3.5 g/dL [facility] DEVELOPMENT SYSTEM [facility] EGFR 19(L) >60 ml/min/1. 73m2 [facility] DEVELOPMENT SYSTEM EFFICIENCY MANAGER [facility] Comment: This eGFR is calculated using 2020 CKD-EPI Creatinine equation without race modifier based on the NKF-ASN task force recommendations Blood 10/23/2023 2:04 PM SAGGER PREPARER Narrative [facility] DEVELOPMENT SYSTEM EFFICIENCY MANAGER [facility] - 10/23/2023 2:46 PM SAGGER PREPARER Release to patient->Immediate IS THE PATIENT REQUIRED TO BE FASTING FOR 8 HOURS?->No us Esther Oreilly EXTERNAL AUDITOR, TYPE ROLLING MACHINE OPERATOR CHEMISTRY ORDERAB LES Final Result CANCER DEVELOPMENT SYSTEM EFFICIENCY MANAGER [facility] [address] [place] [address], documented in this encounter Visit Diagnoses Diagnosis Anemia of unknown etiology- Primary Anemia, unspecified Hypogammaglobulinemia (HCC) Hypogammaglobulinaemia, unspecified Iron deficiency Other disorders of iron metabolism 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) Anemia of unknown etiology Anemia, unspecified Hypogammaglobulinemia (HCC) Hypogammaglobulinaemia, unspecified documented in this encounter Additional Health Concerns Assessment Noted Time PHQ-9 Depression Total Score: 0 03/08/20 21 11:06 AM CDT documented as of this encounter Care Teams French Comber Relationship Specialty Start Date End Date Jonatan Worley [address] [place] [address] PCP - General Family Medicine 07/12/20 Srinivasa Lee MD [address] [place] [address] Consulting Physician Oncology 07/12/20 documented as of this encounter
--- OUTSIDE RECORDS SUMMARY | 2024-08-29 03:45 | XMS_ITS | Encounter Summary ---
Author Organization [employer] Care Team Providers Care Freelance Copywriter Name Role Phone Jonatan Worley Primary Care Provider [phone] Srinivasa Lee MD Unavailable Encounter Details Date Type Department Care Team (Latest Contact Info) Description 02/19/2024 Travel Social History Tobacco Use Types Packs/Day [...] on file Legal Sex Female 11:51 AM ARTIFICIAL BREAST FABRICATOR Gender Identity Not on file Sexual Orientation Not on file documented as of this encounter Functional Status * Question Answer Date of Assessment Author Little interest or pleasure in doing things Not at all 02/19/2024 1:54 PM Jatin Nunez CMA Feeling down, depressed, or hopeless Not at all 02/19/2024 1:54 PM Deyanira Nunez CMA * Over the past 2 weeks, how often have you been bothered by any of the following problems? Question Answer Date of Assessment Author Patient Health Questionnaire-2 Score 0 02/19/2024 1:54 PM Tereza Nunez CMA documented as of this encounter Plan of Treatment Upcoming Encounters Date Type Department Care Team (Late st Contact Info) Description 10/18/2024 1:30 PM ARTIFICIAL BREAST FABRICATOR Office Visit [facility] [address] [place] [address] Srinivasa Lee MD [address] [place] [address] documented as of this encounter Visit Diagnoses Not on filedocumented in this encounter Additional Health Concerns Assessment Noted Time PHQ-9 Depression Total Score: 0 03/08/20 21 11:06 AM CDT documented as of this encounter Care Teams Freelance Copywriter Relationship Specialty Start Date End Date Jonatan Worley [address] [place] [address] PCP - General Family Medicine 07/12/20 Srinivasa Lee MD [address] [place] [phone] Consulting Physician Oncology 07/12/20 documented as of this encounter
--- OUTSIDE RECORDS SUMMARY | 2024-08-29 03:45 | XMS_ITS | Encounter Summary ---
Author Organization [facility] Address [address] [place] [address] Phone Care Team Providers Care Buffet Manager Name Role Phone Jonatan Worley Primary Care Provider [phone] Srinivasa Lee MD Unavailable [phone] Reason for Visit * Reason Comments Follow-up Encounter Details Date Type Department Care Team (Latest Contact Info) Description 03/07/2023 9:30 AM CDT Office Visit [facility] [address] [address] Buzz Sales, RICCI Hypogammaglobulinemia (HCC) (Primary Dx); Anemia of unknown etiology Social History Tobacco [...] on file Legal Sex Female 11:51 AM COMMUTER PILOT Gender Identity Not on file Sexual Orientation Not on file COVID-19 Exposure Response Date Recorded In the last 10 days, have yo u been in contact with someone who was confirmed or suspected to have Coronavirus/COVID-19? No / Unsure 03/07/2023 9:28 AM CDT documented as of this encounter Last Filed Vital Signs Vital Sign Reading Time Taken Comments Blood Pressure 142/78 03/07/2023 9:47 AM CDT Pulse 77 03/07/2023 9:47 AM CDT Temperature 36.8 ??C (98.2 ??F) 03/07/2023 9:47 AM CD T Respiratory Rate 18 03/07/2023 9:47 AM CDT Oxygen Saturation 96% 03/07/2023 9:47 AM CDT Inhaled Oxygen Concentration - - Weight 98 kg (216 lb) 03/07/2023 9:47 AM CDT Height 170.2 cm (5' 7 ) 03/07/2023 9:47 AM CDT Body Mass Index 33.83 03/07/2023 9:47 AM CDT documented in this encounter Functional Status [...] as of this encounter Progress Notes * Buzz Sales PAC - 03/07/2023 9:30 AM CDT Images from the original note were not included. Patient: Arely Ernandez Age: 62 y.o. : 1960 [facility] Encounter Date: 03/07/2023 Care Team: Current Providers PCP: Jonatan Worley Care Team Provider: Srinivasa Lee MD Encounter Provider: Buzz Sales PAC Referring Provider: not found Physician Space Planner: Buzz Sales PAC HISTORY OF PRESENT ILLNESS: The patient presents to the office today for a followup visit. No new concerns or complaints since her last office visit. Patient is currently being followed by Nephrology. She denies any headaches, lightheadedness, dizziness, chest pain or discomfort. No constipation or diarrhea. She does have chronic swelling in her lower extremities. Nothing worsening at this time. DIAGNOSIS: Hypogammaglobulinemia and anemia. PAST TREATMENT: Not applicable. CURRENT TREATMENT: Not applicable. TREATMENT GUIDELINES: Not applicable. PROGNOSIS: Not applicable. [...] screening discussed with the patient. PLAN: 1. Labs today CBC, CMP, folate, B12, iron studies. Check immunoglobulins. 2. Give IV iron if indicated. 3. She will return to our clinic in three months. 4. She will continue follow up with primary care provider and Nephrology. TIME SPENT: PAST MEDICAL HISTORY, PAST SURGICAL [...] NOTES: All lab results shown below reviewed. Buzz Sales PA-C/[facility] Vitals: Vitals: 03/07/23 0947 BP: 142/78 BP Location: Left Arm BP Position: Sitting BP Cuff Size: Large Pulse: 77 Resp: 18 Temp: 98.2 ??F (36.8 ??C) TempSrc: Temporal SpO2: 96% Weight: 216 lb (98 kg) Height: 5' 7 (1.702 m) Body surface area is 2.15 meters squared. Body mass index is 33.83 kg/m??. Pain Score: 0 - No pain [...] Father Sister Alive Brother Alive Sister Alive Social History Socioeconomic History Marital status: Spouse name: Richard Number of children: 5 Years of education: 12 Highest education level: 12th grade Tobacco Use Smoking status: Never Smokeless tobacco: Never Vaping Use Vaping Use: Never used Substance and Sexual Activity Alcohol use: Not [...] Current Medications: Outpatient Encounter Medications as of 03/07/2023 Medication Sig Dispense Refill amLODIPine (NORVASC) 5 MG Tablet TAKE 1 TABLET BY MOUTH ONCE DAILY aspirin 81 MG Chewable Tablet Take 81 mg by mouth daily. brimonidine (ALPHAGAN) 0.2 % Solution INSTILL 1 DROP INTO EACH EYE TWICE DAILY Cholecalciferol 2000 UNIT Capsule Take 2,000 Units by mouth. Dapagliflozin Propanediol (Farxiga) 10 MG Tablet Take 1 Tablet by mouth. dorzolamide (TRUSOPT) 2 % Solution INSTILL 1 DROP INTO RIGHT EYE 4 TIMES DAILY ergocalciferol (VITAMIN D) 41677 UNIT Capsule TAKE 1 CAPSULE BY MOUTH ONCE A WEEK (Patient not taking: Reported on 03/07/2023) glimepiride (AMARYL) 2 MG Tablet Take 2 mg by mouth every morning. glimepiride (AMARYL) 4 MG Tablet TAKE 1 TABLET BY MOUTH ONCE DAILY hydrALAZINE 10 MG Tablet TAKE 1 TABLET BY MOUTH TWICE DAILY WITH FOOD hydrALAZINE 25 MG Tablet Take 25 mg by mouth. ketorolac, ophth, (ACULAR) 0.5 % Solution (Patient not taking: Reported on 03/07/2023) loteprednol etabonate (LOTEMAX) 0.5 % Suspension INSTILL 1 DROP INTO RIGHT EYE 4 TIMES DAILY (Patient not taking: Reported on 03/07/2023) metoprolol Succinate (TOPROL-XL) 100 MG TABLET SR 24 HR TAKE 1 TABLET BY MOUTH ONCE DAILY (Patient not taking: Reported on 03/07/2023) ofloxacin (OCUFLOX) 0.3 % Solution (Patient not taking: Reported on 03/07/2023) prednisoLONE acetate (PRED FORTE) 1 % Suspension rosuvastatin (CRESTOR) 5 MG Tablet TAKE 1 TABLET BY MOUTH ONCE DAILY timolol (TIMOPTIC) 0.5 % Solution INSTILL 1 DROP INTO EACH EYE TWICE DAILY No facility-administered encounter medications on file as of 03/07/2023. Labs: No visits with results within 7 Day(s) from this visit. Latest known visit with results is: Lab on 12/06/2022 Component Date Value Ref Range Status [id number] 12/06/2022 9.72 (H) 0.97 - 1.84 mg/L Final FREE KAPPA LT CHAINS,S 12/06/2022 108.7 (H) 3.3 - 19.4 MG/L Final FREE LAMBDA LT CHAINS,S 12/06/2022 49.1 (H) 5.7 - 26.3 MG/L Final FREE KAPPA/FREE LAMBDA RATIO LT CH* 12/06/2022 2.21 (H) 0.26 - 1.65 Final IMMUNOFIXATION RESULT, SERUM 12/06/2022 COMMENT Final NO MONOCLONALITY DETECTED. PROTEIN, TOTAL, SERUM 12/06/2022 5.9 (L) 6.0 - 8.5 G/DL Final ALBUMIN 12/06/2022 3.1 2.9 - 4.4 G/DL Final ABACV-3-DZSWGEON 12/06/2022 0.3 0.0 - 0.4 G/DL Final FXQIW-3-PYCSNMGF 12/06/2022 0.8 0.4 - 1.0 G/DL Final BETA GLOBULIN 12/06/2022 0.9 0.7 - 1.3 G/DL Final GAMMA GLOBULIN 12/06/2022 0.7 0.4 - 1.8 G/DL Final M-SPIKE 12/06/2022 NOT OBSERVED NOT OBSERVED G/DL Final GLOBULIN, TOTAL 12/06/2022 2.8 2.2 - 3.9 G/DL Final A/G RATIO 12/06/2022 1.1 0.7 - 1.7 Final PLEASE NOTE: 12/06/2022 COMMENT Final Comment: PROTEIN ELECTROPHORESIS SCAN WILL FOLLOW VIA COMPUTER, MAIL, OR CANINE SERVICE INSTRUCTOR TRAINER DELIVERY. PDF 12/06/2022 . Final IGG 12/06/2022 762 635 - 1,741 mg/dL Final IGA 12/06/2022 210 66 - 433 mg/dL Final IGM 12/06/2022 57 45 - 281 mg/dL Final Vitamin B12 12/06/2022 265 180 - 914 pg/mL Final Ferritin 12/06/2022 52 11 - 307 ng/mL Final IRON 12/06/2022 49 (L) 50 - 212 ug/dL Final UIBC 12/06/2022 212 155 - 355 ug/dL Final TIBC 12/06/2022 261 261 - 478 ug/dl Final % Saturation 12/06/2022 19 (L) 20 - 50 % Final LDH 12/06/2022 162 140 - 271 U/L Final Glucose 12/06/2022 230 (H) 70 - 105 mg/dL Final Blood Urea Nitrogen 12/06/2022 53 (H) 7 - 25 mg/dL Final Creatinine 12/06/2022 2.9 (H) 0.6 - 1.2 mg/dL Final Sodium 12/06/2022 138 136 - 145 mEq/L Final Potassium 12/06/2022 5.6 (HH) 3.5 - 5.1 mEq/L Final Comment: Critical Result reported to Ely Lai on 12/06/2022 11:13 by Kaur Waller. Results were read back to caller. Chloride 12/06/2022 109 (H) 98 - 107 mEq/L Final Bicarbonate 12/06/2022 22 21 - 31 mEq/L Final Total Bilirubin 12/06/2022 0.4 0.3 - 1.0 mg/dL Final Alk. Phosphatase 12/06/2022 64 34 - 104 U/L Final Aspartate Aminotransferase 12/06/2022 16 13 - 39 U/L Final Alanine Aminotransferase 12/06/2022 11 7 - 52 U/L Final Total Protein 12/06/2022 5.8 (L) 6.4 - 8.9 g/dL Final Albumin 12/06/2022 3.5 3.5 - 5.7 g/dL Final Calcium 12/06/2022 8.9 8.6 - 10.3 mg/dL Final Anion Gap 12/06/2022 12.6 7.0 - 15.0 mEq/L Final Globulin 12/06/2022 2.3 2.0 - 3.5 g/dL Final EGFR 12/06/2022 18 (L) >60 ml/min/1.73m2 Final Comment: This eGFR is calculated using 2020 CKD-EPI Creatinine equation without race modifier based on the NKF-ASN task force recommendations WBC 12/06/2022 12.2 (H) 4.0 - 10.0 10*3/uL Final HGB 12/06/2022 10.4 (L) 11.2 - 15.7 g/dL Final HCT 12/06/2022 30.7 (L) 34.1 - 44.9 % Final PLT 12/06/2022 194 163 - 369 10*3/uL Final MPV 12/06/2022 11.1 9.4 - 12.4 fL Final RBC 12/06/2022 3.52 (L) 3.93 - 5.22 10*6/uL Final MCV 12/06/2022 87 79 - 95 fL Final MCH 12/06/2022 29.5 25.6 - 32.2 pg Final MCHC 12/06/2022 33.9 32.2 - 36.5 g/dL Final RDW 12/06/2022 12.4 11.6 - 14.4 % Final Absolute Neutrophil Count 12/06/2022 9,485 cells/uL Final Absolute Seg Count 12/06/2022 9,485 (H) 1,440 - 6,600 cells/uL Final Absolute Lymph Count 12/06/2022 973 760 - 4,000 cells/uL Final Absolute [place] Count 12/06/2022 608 160 - 1,200 cells/uL Final Absolute Eos Count 12/06/2022 1,094 (H) 0 - 300 cells/uL Final Segmented Neutrophils 12/06/2022 78 (H) 36 - 66 % Final Lymphocytes 12/06/2022 8 (L) 19 - 40 % Final Monocytes 12/06/2022 5 4 - 12 % Final Eosinophils 12/06/2022 9 (H) 0 - 3 % Final WBC Estimate 12/06/2022 High Final Platelet Estimate 12/06/2022 Normal Final RBC Morphology 12/06/2022 Normal Final Cosigned by Srinivasa Lee MD at 03/12/2023 2:17 AM CDT documented in this encounter Plan of Treatment Upcoming Encounters Date Type Department Care Team (Late st Contact Info) Description 10/18/2024 1:30 PM COMMUTER PILOT Office Visit [facility] [address] [address] Srinivasa Lee MD [address] [place] [address] [place] [address] [place] [id number] documented as of this encounter Results * (ABNORMAL) BETA 2 MICROGLOBULIN (06/12/2023 2:25 PM CDT) [id number] 11.54(H) 0.97 - 1.84 mg/L [facility] Blood 06/12/2023 2:25 PM CDT Narrative [facility] - 06/13/2023 3:31 PM CDT Release to patient->Immediate us Buzz Sales PAC CHEMISTRY ORDERABLES Final Result Performing Organization Address City/[facility]/ZIP Co de Phone Number [facility] [address] [place] [address], [place] [phone] * (ABNORMAL) FREE KAPPA & LAMBDA LIGHT CHAINS SERUM (06/12/2023 2:25 PM CDT) FREE KAPPA LT CHAINS,S 113.4(H) 3.3 - 19.4 MG/L [facility] FREE LAMBDA LT CHAINS,S 91.9(H) 5.7 - 26.3 MG/L [facility] FREE KAPPA/FREE LAMBDA RATIO LT CHAINS 1.23 0.26 - 1.65 [facility] Blood 06/12/2023 2:25 PM CDT [place] [facility] - 06/13/2023 3:09 PM CDT TESTING PERFORMED AT: [CB] [address] [place], [address], PHONE: [phone], FIBERGLASSER: PEGGY MARCUS, PHD Release to patient->Immediate Result [facility] Buzz Sales PAC CHEMISTRY ORDERABLES Final Result [facility] [address] [place] [address], [place] [phone] * IMMUNOFIXATION, SERUM [place] (06/12/2023 2:25 PM CDT) IMMUNOFIXATION RESULT, SERUM COMMENT: [facility] Comment: PRESENCE OF MONOCLONAL PROTEIN IS UNCLEAR AT THIS TIME. SUGGEST REPEAT IN 3 TO 6 MONTHS IF CLINICALLY INDICATED. 06/12/2023 2:25 PM CDT Narrative [facility] - 06/13/2023 3:09 PM CDT TESTING PERFORMED AT: [CB] [employer] [address] [place], [address], PHONE: [phone], FIBERGLASSER: PEGGY MARCUS, PHD Release to patient->Immediate Buzz Sales PAC LAB SEND OUTS Final Resu lt CANCER DEMAND EQUIPMENT REPAIRER [facility] [place] [address] [place] [address], [place] [phone] * ELECTROPHORESIS W/ TOTAL PROTEIN SERUM (06/12/2023 2:25 PM CDT) PROTEIN, TOTAL, SERUM 6.2 6.0 - 8.5 G/DL [facility] ALBUMIN 3.1 2.9 - 4.4 G/DL [facility] ISAFC-4-[id number] 0.3 0.0 - 0.4 G/DL [facility] NPNAM-5-NLJSJVNK 0.9 0.4 - 1.0 G/DL [facility] BETA GLOBULIN 0.9 0.7 - 1.3 G/DL [facility] GAMMA GLOBULIN 1.0 0.4 - 1.8 G/DL [facility] M-SPIKE NOT OBSERVED NOT OBSERVED G/DL [facility] GLOBULIN, TOTAL 3.1 2.2 - 3.9 G/DL [facility] A/G RATIO 1.0 0.7 - 1.7 [facility] PLEASE NOTE: COMMENT [facility] DEMAND EQUIPMENT REPAIRER [facility] Comment: PROTEIN ELECTROPHORESIS SCAN WILL FOLLOW VIA COMPUTER, MAIL, OR CANINE SERVICE INSTRUCTOR TRAINER DELIVERY. PDF . [facility] Blood 06/12/2023 2:25 PM CDT Narrative [facility]ER DEMAND EQUIPMENT REPAIRER [facility] - 06/13/2023 3:09 PM CDT TESTING PERFORMED AT: [] [facility], [address] [place] [address], [place], [address], PHONE: [phone], FIBERGLASSER: PEGGY MARCUS, PHD Release to patient->Immediate Buzz Sales PAC CHEMISTRY ORDERABLES Final Result [facility]ER DEMAND EQUIPMENT REPAIRER [facility] [place] [address] [address] [address], * IMMUNOGLOBULIN IGA, IGG & IGM QUANT (06/12/2023 2:25 PM CDT) IGG 960 635 - 1,741 mg/dL [facility] IGA 238 66 - 433 mg/dL [facility] IGM 101 45 - 281 mg/dL [facility] DEMAND EQUIPMENT REPAIRER [facility] Blood 06/12/2023 2:25 PM CDT Narrative [facility] DEMAND EQUIPMENT REPAIRER [facility] - 06/13/2023 3:31 PM CDT Release to patient->Immediate Buzz Sales PAC CHEMISTRY ORDERABLES Final Result [facility] DEMAND EQUIPMENT REPAIRER [facility] [address] [place] [address], * (ABNORMAL) VITAMIN B12 (06/12/2023 2:25 PM CDT) Vitamin B12 1,442(H) 180 - 914 pg/mL [facility] Blood 06/12/2023 2:25 PM CDT [facility] - 06/13/2023 3:29 PM CDT Release to patient->Immediate Buzz [place] PAC CHEMISTRY ORDERABLES Final Result [facility] [address] [place] [address], [place] [phone] * FERRITIN (06/12/2023 2:25 PM CDT) Ferritin 69 11 - 307 ng/mL [facility] Blood 06/12/2023 2:25 PM CDT [facility] - 06/13/2023 3:29 PM CDT Release to patient->Immediate Buzz Sales PAC CHEMISTRY ORDERABLES Final Result Performing Organization Address City/[facility]/ZIP Co de Phone Number CANCER DEMAND EQUIPMENT REPAIRER [facility] [address] [place] [address], * (ABNORMAL) IRON W/ IRON BINDING CAPACITY [place] (06/12/2023 2:25 PM CDT) IRON 64 50 - 212 ug/dL [facility] DEMAND EQUIPMENT REPAIRER [facility] UIBC 188 155 - 355 ug/dL [facility] DEMAND EQUIPMENT REPAIRER [facility] TIBC 252(L) 261 - 478 ug/dl [facility] DEMAND EQUIPMENT REPAIRER [facility] % Saturation 25 20 - 50 % [facility] DEMAND EQUIPMENT REPAIRER [facility] Blood 06/12/2023 2:25 PM CDT [facility] - 06/12/2023 3:29 PM CDT Release to patient->Immediate Buzz Sales PAC LAB SEND OUTS Final Resu lt Performing Organization Address City/[facility]/ZIP Co de Phone Number CANCER DEMAND EQUIPMENT REPAIRER [facility] [place] [address] [place] [address], [place] [phone] * LACTATE DEHYDROGENASE (LD) (06/12/2023 2:25 PM CDT) LDH 152 140 - 271 U/L [facility] DEMAND EQUIPMENT REPAIRER [facility] Blood 06/12/2023 2:25 PM CDT [facility] - 06/12/2023 3:29 PM CDT Release to patient->Immediate Buzz Sales PAC CHEMISTRY ORDERABLES Final Result Performing Organization Address City/[facility]/ZIP Co de Phone Number CANCER DEMAND EQUIPMENT REPAIRER [facility] [address] [place] [address], [place] [phone] * (ABNORMAL) CMP (COMPREHENSIVE METABOLIC PANEL) (06/12/2023 2:25 PM CDT) Glucose 161(H) 70 - 105 mg/dL [facility] Blood Urea Nitrogen 37(H) 7 - 25 mg/dL [facility] Creatinine 2.6(H) 0.6 - 1.2 mg/dL [facility] Sodium 138 136 - 145 mEq/L [facility] Potassium 5.0 3.5 - 5.1 mEq/L [facility] Chloride 111(H) 98 - 107 mEq/L [facility] Bicarbonate 19(L) 21 - 31 mEq/L [facility] Total Bilirubin 0.3 0.3 - 1.0 mg/dL [facility] Alk. Phosphatase 89 34 - 104 U/L [facility] Aspartate Aminotransferase 16 13 - 39 U/L [facility] Alanine Aminotransferase 10 7 - 52 U/L [facility] Total Protein 6.2(L) 6.4 - 8.9 g/dL [facility] Albumin 3.5 3.5 - 5.7 g/dL [facility] Calcium 9.0 8.6 - 10.3 mg/dL [facility] Anion Gap 13.0 7.0 - 15.0 mEq/L [facility] Globulin 2.7 2.0 - 3.5 g/dL [facility] EGFR 20(L) >60 ml/min/1. 73m2 [facility] Comment: This eGFR is calculated using 2020 CKD-EPI Creatinine equation without race modifier based on the NKF-ASN task force recommendations Blood 06/12/2023 2:25 PM CDT Narrative [facility]ER DEMAND EQUIPMENT REPAIRER [facility] - 06/12/2023 3:29 PM CDT Release to patient->Immediate IS THE PATIENT REQUIRED TO BE FASTING FOR 8 HOURS?->No us Buzz Sales PAC CHEMISTRY ORDERABLES Final Result CANCER DEMAND EQUIPMENT REPAIRER [facility] [place] [address], * (ABNORMAL) COMPLETE BLOOD COUNT (CBC) WITH DIFF (06/12/2023 2:25 PM CDT) WBC 9.8 4.0 - 10.0 10*3/uL [facility]ER DEMAND EQUIPMENT REPAIRER [facility] HGB 10.0(L) 11.2 - 15.7 g/dL CANCER DEMAND EQUIPMENT REPAIRER [facility] HCT 31.3(L) 34.1 - 44.9 % CANCER DEMAND EQUIPMENT REPAIRER [facility] PLT 200 163 - 369 10*3/uL [facility]ER DEMAND EQUIPMENT REPAIRER [facility] MPV 10.0 9.4 - 12.4 fL CAN[facility]ER DEMAND EQUIPMENT REPAIRER [facility] RBC 3.46(L) 3.93 - 5.22 10*6/uL CAN[facility]ER DEMAND EQUIPMENT REPAIRER [facility] MCV 91 79 - 95 fL [facility] DEMAND EQUIPMENT REPAIRER [facility] MCH 28.9 25.6 - 32.2 pg [facility] DEMAND EQUIPMENT REPAIRER [facility] MCHC 31.9(L) 32.2 - 36.5 g/dL [facility] DEMAND EQUIPMENT REPAIRER [facility] RDW 12.9 11.6 - 14.4 % [facility]CER DEMAND EQUIPMENT REPAIRER [facility] Absolute Neutrophil Count 6,546 cells/uL [facility] ER SPECIALISTS [facility] Absolute Seg Count 6,546 1,440 - 6,600 cells/uL [facility]ER DEMAND EQUIPMENT REPAIRER [facility] Absolute Lymph Count 1,759 760 - 4,000 cells/uL [facility] Absolute [place] Count 586 160 - 1,200 cells/uL [facility] Absolute Eos Count 879(H) 0 - 300 cells/uL [facility] DEMAND EQUIPMENT REPAIRER [facility] Segmented Neutrophils 67(H) 36 - 66 % CANCER DEMAND EQUIPMENT REPAIRER [facility] Lymphocytes 18(L) 19 - 40 % [facility] C [facility]TER [facility] Monocytes 6 4 - 12 % [facility] Eosinophils 9(H) 0 - 3 % [facility] C [facility] WBC Estimate Normal CANCER DEMAND EQUIPMENT REPAIRER [facility] Platelet Estimate Normal [facility]ER DEMAND EQUIPMENT REPAIRER [facility] RBC Morphology Normal CANCE R DEMAND EQUIPMENT REPAIRER [facility] Blood 06/12/2023 2:25 PM CDT Narrative CANCER DEMAND EQUIPMENT REPAIRER [facility] - 06/12/2023 3:27 PM CDT Release to patient->Immediate us Buzz Sales PAC HEMATOLOGY ORDERABLES Kym noman Result CANCER DEMAND EQUIPMENT REPAIRER [facility] [address] [address], [place] [phone] * (ABNORMAL) BETA 2 MICROGLOBULIN (03/07/2023 10:01 AM CDT) Pathologist [facility] [id number] 9.94(H) 0.97 - 1.84 mg/L [facility] Blood 03/07/2023 10:0 1 AM CDT Narrative [facility] - 03/14/2023 2:06 PM CDT Release to patient->Immediate Buzz Sales PAC CHEMISTRY ORDERABLES Final Result [facility] Care [address] [address], [place] [phone] * (ABNORMAL) FREE KAPPA & LAMBDA LIGHT CHAINS SERUM (03/07/2023 10:01 AM CDT) [facility] FREE KAPPA LT CHAINS,S 104.9(H) 3.3 - 19.4 MG/L [facility] FREE LAMBDA LT CHAINS,S 59.6(H) 5.7 - 26.3 MG/L [facility] KAPPA/FREE LAMBDA RATIO LT CHAINS 1.76(H) 0.26 - 1.65 [facility] Blood 03/07/2023 10:0 1 AM CDT Narrative [facility] - 03/10/2023 1:08 PM CDT TESTING PERFORMED AT: [] [facility], [address] [place] [address], [place], [address], PHONE: [phone], FIBERGLASSER: PEGGY MARCUS, PHD Release to patient->Immediate Buzz Sales PAC CHEMISTRY ORDERABLES Final Result [facility] * IMMUNOFIXATION, SERUM [place] (03/07/2023 10:01 AM CDT) IMMUNOFIXATION RESULT, SERUM COMMENT [facility] Comment:NO MONOCLONALITY DET ECTED. 03/07/2023 10:0 1 AM CDT Narrative [facility] - 03/10/2023 11:08 AM CDT TESTING PERFORMED AT: [] [facility], [address] [place] [address], [phone], PHONE: [phone], FIBERGLASSER: PEGGY MARCUS, PHD Release to patient->Immediate [employer] [facility] SEND OUTS Final Resu lt [facility] * (ABNORMAL) ELECTROPHORESIS W/ TOTAL PROTEIN SERUM (03/07/2023 10:01 AM CDT) PROTEIN, TOTAL, SERUM 5.7(L) 6.0 - 8.5 G/DL [facility] ALBUMIN 3.2 2.9 - 4.4 G/DL [facility] DGRDR-7-OPOXWQXS 0.2 0.0 - 0.4 G/DL [facility] QHEUP-2-BAPAARNM 0.8 0.4 - 1.0 G/DL [facility] BETA GLOBULIN 0.8 0.7 - 1.3 G/DL [facility] GAMMA GLOBULIN 0.7 0.4 - 1.8 G/DL [facility] M-SPIKE NOT OBSERVED NOT OBSERVED G/DL [facility] GLOBULIN, TOTAL 2.5 2.2 - 3.9 G/DL [facility] A/G RATIO 1.3 0.7 - 1.7 [facility] PLEASE NOTE: COMMENT [facility] Comment: PROTEIN ELECTROPHORESIS SCAN WILL FOLLOW VIA COMPUTER, MAIL, OR CANINE SERVICE INSTRUCTOR TRAINER DELIVERY. PDF . [facility] Blood 03/07/2023 10:0 1 AM CDT Narrative [facility] - 03/10/2023 3:09 PM CDT TESTING PERFORMED AT: [] [facility], [address], [place], [address], PHONE: [phone], FIBERGLASSER: PEGGY MARCUS, PHD Release to patient->Immediate [employer] PAC CHEMISTRY ORDERABLES Final Result [facility] * IMMUNOGLOBULIN IGA, IGG & IGM QUANT (03/07/2023 10:01 AM CDT) IGG 746 635 - 1,741 mg/dL [facility] IGA 202 66 - 433 mg/dL [facility] IGM 104 45 - 281 mg/dL [facility] Blood 03/07/2023 10:0 1 AM CDT Narrative [facility] - 03/10/2023 2:03 PM CDT Release to patient->Immediate [employer] PAC CHEMISTRY ORDERABLES Final Result Performing Organization Address City/Department Of [facility]/ZIP Co de Phone Number [facility] [address] [phone] documented in this encounter Visit Diagnoses Diagnosis Hypogammaglobulinemia (HCC)- Primary Hypogammaglobulinaemia, unspecified Anemia of unknown etiology Anemia, unspecified Anemia of unknown etiology Anemia, unspecified Hypogammaglobulinemia (HCC) Hypogammaglobulinaemia, unspecified Hypogammaglobulinemia (HCC) Hypogammaglobulinaemia, unspecified Anemia of unknown etiology Anemia, unspecified documented in this encounter Additional Health Concerns Assessment Noted Time PHQ-9 Depression Total Score: 0 03/08/20 21 11:06 AM CDT documented as of this encounter Care Teams Buffet Manager Relationship Specialty Start Date End Date Jonatan Worley [address] [place] [address] PCP - General Family Medicine 07/12/20 Sirnivasa Lee MD [address] [place] [address] Consulting Physician Oncology 07/12/20 documented as of this encounter
--- OUTSIDE RECORDS SUMMARY | 2024-08-29 03:45 | XMS_ITS | Encounter Summary ---
Author Organization [facility] Address [address] [place] [address] Phone Care Team Providers Care Operations Research Analyst Name Role Phone Jonatan Worley Primary Care Provider Srinivasa Lee MD Unavailable [phone] Encounter Details Date Type Department Care Team (Late st Contact Info) Description 10/23/2023 2:00 PM EMOTIONALLY IMPAIRED TEACHER Lab [facility] [address] [id number] Lab, [facility] Anemia of unknown etiology; Hypogammaglobulinemia (HCC) Social History Tobacco Use Types Packs/Day [...] on file Legal Sex Female 11:51 AM EMOTIONALLY IMPAIRED TEACHER Gender Identity Not on file Sexual Orientation Not on file documented as of this encounter Functional Status * Question Answer Date of Assessment Author Little interest or pleasure in doing things Not at all 10/23/2023 2:11 PM Jatin Khan CMA Feeling down, depressed, or hopeless Not at all 10/23/2023 2:11 PM EMOTIONALLY IMPAIRED TEACHER Deyanira Napier CMA * Over the past 2 weeks, how often have you been bothered by any of the following problems? Question Answer Date of Assessment Author Patient Health Questionnaire-2 Score 0 10/23/2023 2:11 PM EMOTIONALLY IMPAIRED TEACHER Tereza Napier CMA documented as of this encounter Plan of Treatment Upcoming Encounters Date Type Department Care Team (Late st Contact Info) Description 10/18/2024 1:30 PM EMOTIONALLY IMPAIRED TEACHER Office Visit [facility] [address] [phone] Srinivasa Lee MD [address] [place] [address] [place] [address] documented as of this encounter Procedures Procedure Name Priority Date/Time Associated Diagnosis Comments IRON W/ IRON BINDING CAPACITY OH Routine 10/23/2023 2:04 PM EMOTIONALLY IMPAIRED TEACHER Anemia of unknown etiology Hypogammaglobuline ellen (HCC) CBC WITH AUTO DIFF OH Routine 10/23/2023 2:04 PM EMOTIONALLY IMPAIRED TEACHER VITAMIN B12 Routine 10/23/2023 2:04 PM EMOTIONALLY IMPAIRED TEACHER Anemia of unknown etiology Hypogammaglobuline ellen (HCC) RETICULOCYTE COUNT (RETIC) Routine 10/23/2023 2:04 PM EMOTIONALLY IMPAIRED TEACHER Anemia of unknown etiology Hypogammaglobuline ellen (HCC) LACTATE DEHYDROGENASE (LD) Routine 10/23/2023 2:04 PM EMOTIONALLY IMPAIRED TEACHER Anemia of unknown etiology Hypogammaglobuline ellen (HCC) FOLIC ACID (FOLATE) Routine 10/23/2023 2 :04 PM EMOTIONALLY IMPAIRED TEACHER Anemia of unknown etiology Hypogammaglobuline ellen (HCC) FERRITIN Routine 10/23/2023 2:04 PM EMOTIONALLY IMPAIRED TEACHER Anemia of unknown etiology Hypogammaglobuline ellen (HCC) CMP (COMPREHENSIVE METABOLIC PANEL) Routine 10/23/2023 2:04 PM EMOTIONALLY IMPAIRED TEACHER Anemia of unknown etiology Hypogammaglobuline ellen (HCC) documented in this encounter Results * (ABNORMAL) CBC WITH AUTO DIFF OH (10/23/2023 2:04 PM EMOTIONALLY IMPAIRED TEACHER) WBC 8.1 4.0 - 10.0 10*3/uL [facility] HGB 9.6(L) 11.2 - 15.7 g/dL [facility] HCT 29.6(L) 34.1 - 44.9 % [facility] PLT 166 163 - 369 10*3/uL [facility] MPV 10.7 9.4 - 12.4 fL [facility] RBC 3.23(L) 3.93 - 5.22 10*6/uL [facility] MCV 92 79 - 95 fL [facility] MCH 29.7 25.6 - 32.2 pg [facility] MCHC 32.4 32.2 - 36.5 g/dL [facility] RDW 13.2 11.6 - 14.4 % [facility] Neutrophils % 48.6 36.0 - 66.0 % [facility] Lymphocytes % 37.8 19.0 - 40.0 % [facility] Monocytes % 7.3 4.1 - 12.1 % [facility] Eosinophils % 5.5(H) 0.0 - 3.5 % [facility] Basophils % 0.6 0.0 - 1.0 % [facility] Absolute Neutrophils 4.0 1.4 - 6.6 10*3/uL [facility] Absolute Lymphocytes 3.1 0.8 - 4.0 10*3/uL [facility] Absolute Monocytes 0.6 0.2 - 1.2 10*3/uL [facility] Absolute Eosinophils 0.5(H) 0.0 - 0.4 10*3/uL [facility] Absolute Basophils 0.1 0.0 - 0.1 10*3/uL [facility] 10/23/2023 2:04 PM EMOTIONALLY IMPAIRED TEACHER us Esther Oreilly APRN, CHERELLE LAB SEND OUTS F inal Result Performing Organization Address [facility]/ZIP Co de Phone Number [facility] [place] [address] [place] [address], * RETICULOCYTE COUNT (RETIC) (10/23/2023 2:04 PM EMOTIONALLY IMPAIRED TEACHER) Reticulocyte count 1.63 0.50 - 1.70 % [facility] RET-He 33.30 28.20 - 36.60 pg [facility] Comment: RET-He is a direct assessment of incorporation of iron into erythrocyte hemoglobin. It provides an indirect measure of the iron available for new erythropoiesis over past 2-4 days. Blood 10/23/2023 2:04 PM EMOTIONALLY IMPAIRED TEACHER Narrative [facility] - 10/23/2023 2:36 PM EMOTIONALLY IMPAIRED TEACHER Release to patient->Immediate Esther Oreilly APRN, CHERELLE HEMATOLOGY ORDERA BLES Final Result Performing Organization Address [facility] Co de Phone Number [facility] [place] [address], * (ABNORMAL) CMP (COMPREHENSIVE METABOLIC PANEL) (10/23/2023 2:04 PM EMOTIONALLY IMPAIRED TEACHER) Glucose 200(H) 70 - 105 mg/dL [facility] Blood Urea Nitrogen 54(H) 7 - 25 mg/dL [facility] Creatinine 2.8(H) 0.6 - 1.2 mg/dL [facility] Sodium 134(L) 136 - 145 mEq/L [facility] Potassium 5.3(H) 3.5 - 5.1 mEq/L [facility] Chloride 108(H) 98 - 107 mEq/L [facility] Bicarbonate 19(L) 21 - 31 mEq/L [facility] Total Bilirubin 0.4 0.3 - 1.0 mg/dL [facility] Alk. Phosphatase 61 34 - 104 U/L [facility] Aspartate Aminotransferase 18 13 - 39 U/L [facility] Alanine Aminotransferase 14 7 - 52 U/L [facility] Total Protein 5.7(L) 6.4 - 8.9 g/dL [facility] Albumin 3.4(L) 3.5 - 5.7 g/dL [facility] Calcium 8.3(L) 8.6 - 10.3 mg/dL [facility] Anion Gap 12.3 7.0 - 15.0 mEq/L [facility] Globulin 2.3 2.0 - 3.5 g/dL [facility] EGFR 19(L) >60 ml/min/1. 73m2 [facility] Comment: This eGFR is calculated using 2020 CKD-EPI Creatinine equation without race modifier based on the NKF-ASN task force recommendations Blood 10/23/2023 2:04 PM EMOTIONALLY IMPAIRED TEACHER Narrative [facility] - 10/23/2023 2:46 PM EMOTIONALLY IMPAIRED TEACHER Release to patient->Immediate IS THE PATIENT REQUIRED TO BE FASTING FOR 8 HOURS?->No Esther Oreilly BIG DATA PLATFORM ARCHITECT, DRYING CAN WORKER CHEMISTRY ORDERAB LES Final Result Performing Organization Address City/[facility]/ZIP Co de Phone Number [facility] Cancer [address] [place] [address], [place] [phone] * LACTATE DEHYDROGENASE (LD) (10/23/2023 2:04 PM EMOTIONALLY IMPAIRED TEACHER) LDH 158 140 - 271 U/L [facility] Blood 10/23/2023 2:04 PM EMOTIONALLY IMPAIRED TEACHER Narrative [facility] - 10/23/2023 2:46 PM EMOTIONALLY IMPAIRED TEACHER Release to patient->Immediate Esther Oreilly BIG DATA PLATFORM ARCHITECT, DRYING CAN WORKER CHEMISTRY ORDERAB LES Final Result [facility] Cancer [address] [place] [address], [place] [phone] * (ABNORMAL) VITAMIN B12 (10/23/2023 2:04 PM EMOTIONALLY IMPAIRED TEACHER) Vitamin B12 1,281(H) 180 - 914 pg/mL [facility] Blood 10/23/2023 2:04 PM EMOTIONALLY IMPAIRED TEACHER Narrative [facility] - 10/24/2023 1:52 PM EMOTIONALLY IMPAIRED TEACHER Release to patient->Immediate Esther Oreilly BIG DATA PLATFORM ARCHITECT, DRYING CAN WORKER CHEMISTRY ORDERAB LES Final Result Performing Organization Address City/[facility]/ZIP Co de Phone Number [facility] [address] [place] [address], * FOLIC ACID (FOLATE) (10/23/2023 2:04 PM EMOTIONALLY IMPAIRED TEACHER) Folate 12.59 >=5.90 ng/mL [facility] Blood 10/23/2023 2:04 PM EMOTIONALLY IMPAIRED TEACHER [facility] - 10/24/2023 1:52 PM EMOTIONALLY IMPAIRED TEACHER Release to patient->Immediate IS THE PATIENT REQUIRED TO BE FASTING FOR 12 HOURS?->No Esther Oreilly APRN, DRYING CAN WORKER CHEMISTRY ORDERAB LES Final Result Performing Organization Address City/[facility]/ZIP Co de Phone Number [facility] Cancer Care [address] [place] [address], [place] [phone] * FERRITIN (10/23/2023 2:04 PM EMOTIONALLY IMPAIRED TEACHER) Ferritin 82 11 - 307 ng/mL [facility] Blood 10/23/2023 2:04 PM EMOTIONALLY IMPAIRED TEACHER [facility] - 10/24/2023 1:52 PM EMOTIONALLY IMPAIRED TEACHER Release to patient->Immediate Esther Oreilly BIG DATA PLATFORM ARCHITECT, DRYING CAN WORKER CHEMISTRY ORDERAB LES Final Result [facility] [address] [address], * (ABNORMAL) IRON W/ IRON BINDING CAPACITY [place] (10/23/2023 2:04 PM EMOTIONALLY IMPAIRED TEACHER) IRON 58 50 - 212 ug/dL [facility] UIBC 186 155 - 355 ug/dL [facility] TIBC 244(L) 261 - 478 ug/dl [facility] % Saturation 24 20 - 50 % [facility] 10/23/2023 2:04 PM EMOTIONALLY IMPAIRED TEACHER Narrative [facility] - 10/23/2023 2:46 PM EMOTIONALLY IMPAIRED TEACHER Release to patient->Immediate Esther Oreilly APRN, DRYING CAN WORKER LAB SEND OUTS F inal Result [facility] [address] [place] [address], [place] [phone] documented in this encounter Visit Diagnoses Diagnosis Anemia of unknown etiology Anemia, unspecified Hypogammaglobulinemia (HCC) Hypogammaglobulinaemia, unspecified documented in this encounter Additional Health Concerns Assessment Noted Time PHQ-9 Depression Total Score: 0 03/08/20 21 11:06 AM CDT documented as of this encounter Care Teams Operations Research Analyst Relationship Specialty Start Date End Date Jonatan Worley [address] [place] [address] PCP - General Family Medicine 07/12/20 Srinivasa Lee MD [address] [place] [phone] Consulting Physician Oncology 07/12/20 documented as of this encounter
--- OUTSIDE RECORDS SUMMARY | 2024-08-29 03:45 | XMS_ITS | Encounter Summary ---
Author Organization [facility] Address [address] [place] [address] Phone Care Team Providers Care Radio Interference Investigator Name Role Phone Jonatan Worley Primary Care Provider Srinivasa Lee MD Unavailable [phone] Encounter Details Date Type Department Care Team (Latest Contact Info) Description 06/17/2024 2:40 PM CDT Lab [facility] [address] [address] Lab, Cc [facility] Hypogammaglobulinemia (HCC); Anemia in stage 3b chronic [...] on file Legal Sex Female 11:51 AM FINANCE DIRECTOR Gender Identity Not on file Sexual [...] st Contact Info) Description 10/18/2024 1:30 PM FINANCE DIRECTOR Office Visit [facility] [address] [address] Srinivasa Lee MD [address] [place] [address] documented as of this encounter Procedures Procedure Name Priority Date/Time Associated Diagnosis Comments SERUM FREE LIGHT CHAINS, [place] Routine 06/17/2024 [...] 3b chronic kidney disease (HCC) Iron deficiency CBC WITH AUTO DIFF [place] Routine 06/17/2024 2:52 PM CDT VITAMIN B12 Routine 06/17/2024 2:52 PM CDT [...] Iron deficiency CMP (COMPREHENSIVE METABOLIC PANEL) Routine 06/17/2024 2:52 PM CDT Hypogammaglobuline ellen (HCC) 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) Iron deficiency documented in this encounter Results * (ABNORMAL) CBC WITH AUTO DIFF [place] (06/17/2024 2:52 PM CDT) WBC 6.5 4.0 - 10.0 10*3/uL [facility] HGB 9.4(L) 11.2 - 15.7 g/dL [facility] HCT 30.2(L) 34.1 - 44.9 % [facility] PLT 177 163 - 369 10*3/uL [facility] MPV 9.2(L) 9.4 - 12.4 fL [facility] RBC 3.40(L) 3.93 - 5.22 10*6/uL [facility] MCV 89 79 - 95 fL [facility] MCH 27.6 25.6 - 32.2 pg [facility] MCHC 31.1(L) 32.2 - 36.5 g/dL [facility] RDW 15.4(H) 11.6 - 14.4 % [facility] Neutrophils % 72.1(H) 36.0 - 66.0 % [facility] Lymphocytes % 17.4(L) 19.0 - 40.0 % [facility] Monocytes % 6.2 4.1 - 12.1 % [facility] MINING TECHNICIAN [facility] Eosinophils % 3.2 0.0 - 3.5 % [facility] Basophils % 0.5 0.0 - 1.0 % [facility] Absolute Neutrophils 4.7 1.4 - 6.6 10*3/uL [facility] Absolute Lymphocytes 1.1 0.8 - 4.0 10*3/uL [facility] Absolute Monocytes 0.4 0.2 - 1.2 10*3/uL [facility] Absolute Eosinophils 0.2 0.0 - 0.4 10*3/uL [facility] Absolute Basophils 0.0 0.0 - 0.1 10*3/uL [facility] 06/17/2024 2:52 PM CDT Esther Oreilly APRN, BUSINESS INITIATIVES MANAGER LAB SEND OUTS F inal Result [facility] [place] [address], * (ABNORMAL) CMP (COMPREHENSIVE METABOLIC PANEL) (06/17/2024 2:52 PM CDT) Glucose 227(H) 70 - 105 mg/dL [facility] Blood Urea Nitrogen 35(H) 7 - 25 mg/dL [facility] Creatinine 2.5(H) 0.6 - 1.2 mg/dL [facility] Sodium 134(L) 136 - 145 mEq/L [facility] Potassium 4.9 3.5 - 5.1 mEq/L [facility] Chloride 103 98 - 107 mEq/L [facility] Bicarbonate 20(L) 21 - 31 mEq/L [facility] Total Bilirubin 0.5 0.3 - 1.0 mg/dL [facility] Alk. Phosphatase 77 34 - 104 U/L [facility] Aspartate Aminotransferase 17 13 - 39 U/L [facility] Alanine Aminotransferase 8 7 - 52 U/L [facility] Total Protein 6.2(L) 6.4 - 8.9 g/dL [facility] Albumin 3.1(L) 3.5 - 5.7 g/dL [facility] Calcium 8.6 8.6 - 10.3 mg/dL [facility] Anion Gap 15.9(H) 7.0 - 15.0 mEq/L [facility] Globulin 3.1 2.0 - 3.5 g/dL [facility] EGFR 21(L) >60 ml/min/1. 73m2 [facility] Comment: This eGFR is calculated using 2020 CKD-EPI Creatinine equation without race modifier based on the NKF-ASN task force recommendations Blood 06/17/2024 2:52 PM CDT [facility] - 06/17/2024 3:35 PM CDT Release to patient->Immediate IS THE PATIENT REQUIRED TO BE FASTING FOR 8 HOURS?->No Esther Oreilly APRN, BUSINESS INITIATIVES MANAGER CHEMISTRY ORDERAB LES Final Result [facility] [address] [place] [address], * LACTATE DEHYDROGENASE (LD) (06/17/2024 2:52 PM CDT) LDH 183 140 - 271 U/L [facility] Blood 06/17/2024 2:[address] [facility] - 06/17/2024 3:35 PM CDT Release to patient->Immediate Esther Oreilly REMOTE CONTROL ASSEMBLER, BUSINESS INITIATIVES MANAGER CHEMISTRY ORDERAB LES Final Result [facility] Cancer Care [address] [place] [address], * (ABNORMAL) VITAMIN B12 (06/17/2024 2:52 PM CDT) Vitamin B12 1,009(H) 180 - 914 pg/mL [facility] Blood 06/17/2024 2:52 PM CDT Narrative [facility] - 06/21/2024 7:57 AM CDT Release to patient->Immediate Esther Oreilly REMOTE CONTROL ASSEMBLER, BUSINESS INITIATIVES MANAGER CHEMISTRY ORDERAB LES Final Result Performing Organization Address [facility]/ZIP Co de Phone Number [facility] Cancer Care [address] [place] [address], * FOLIC ACID (FOLATE) (06/17/2024 2:52 PM CDT) Folate 8.45 >=5.90 ng/mL [facility] Blood 06/17/2024 2:52 PM CDT [facility] - 06/21/2024 7:57 AM CDT Release to patient->Immediate IS THE PATIENT REQUIRED TO BE FASTING FOR 12 HOURS?->No Esther Oreilly REMOTE CONTROL ASSEMBLER, BUSINESS INITIATIVES MANAGER CHEMISTRY ORDERAB LES Final Result [facility] Care [address] [place] [address], * FERRITIN (06/17/2024 2:52 PM CDT) Ferritin 126 11 - 307 ng/mL [facility] Blood 06/17/2024 2:52 PM CDT [facility] - 06/21/2024 7:57 AM CDT Release to patient->Immediate Esther Oreilly APRN, CNP CHEMISTRY ORDERAB LES Final Result Performing Organization Address [facility] Co de Phone Number [facility] [address] [place] [address], * (ABNORMAL) IRON W/ IRON BINDING CAPACITY [place] (06/17/2024 2:52 PM CDT) IRON 25(L) 50 - 212 ug/dL [facility] UIBC 194 155 - 355 ug/dL [facility] TIBC 219(L) 261 - 478 ug/dl [facility] % Saturation 11(L) 20 - 50 % [facility] 06/17/2024 2:52 PM CDT [facility] - 06/17/2024 3:35 PM CDT Release to patient->Immediate Esther Oreilly APRN, CNP LAB SEND OUTS F inal Result Performing Organization Address [facility]/ZIP Co de Phone Number [facility] [place] [place] [address], * RETICULOCYTE COUNT (RETIC) (06/17/2024 2:52 PM CDT) Reticulocyte count 1.70 0.50 - 1.70 % [facility] RET-He 29.80 28.20 - 36.60 pg [facility] Comment: RET-He is a direct assessment of incorporation of iron into erythrocyte hemoglobin. It provides an indirect measure of the iron available for new erythropoiesis over past 2-4 days. Blood 06/17/2024 2:52 PM CDT [facility] - 06/17/2024 3:03 PM CDT Release to patient->Immediate Esther Oreilly APRN, BUSINESS INITIATIVES MANAGER HEMATOLOGY ORDERA BLES Final Result [facility] [place] [address] [place] [address], [place] [phone] * (ABNORMAL) IMMUNOGLOBULIN IGA, IGG & IGM QUANT (06/17/2024 2:52 PM CDT) IGG 1,383 635 - 1,741 mg/dL [facility] IGA 217 66 - 433 mg/dL [facility] IGM 462(H) 45 - 281 mg/dL [facility] Blood 06/17/2024 2:52 PM CDT Narrative [facility] - 06/18/2024 1:11 PM CDT Release to patient->Immediate Esther Oreilly APRN, BUSINESS INITIATIVES MANAGER CHEMISTRY ORDERAB LES Final Result Performing Organization Address City/[facility]/ZIP Co de Phone Number [facility] [address] [place] [address], [place] [phone] * (ABNORMAL) ELECTROPHORESIS W/ TOTAL PROTEIN SERUM (06/17/2024 2:52 PM CDT) PROTEIN, TOTAL, SERUM 6.1 6.0 - 8.5 G/DL [facility] ALBUMIN 2.7(L) 2.9 - 4.4 G/DL [facility] MINING TECHNICIAN [facility] BPIVP-6-AVGEOHPL 0.3 0.0 - 0.4 G/DL [facility] MINING TECHNICIAN [facility] QCIGP-4-NGBDYPGG 0.8 0.4 - 1.0 G/DL [facility] MINING TECHNIC[facility] BETA GLOBULIN 0.8 0.7 - 1.3 G/DL [facility] MINING TECHNIC[facility] GAMMA GLOBULIN 1.5 0.4 - 1.8 G/DL [facility] MINING TECHNICIAN [facility] M-SPIKE NOT OBSERVED NOT OBSERVED G/DL [facility] GLOBULIN, TOTAL 3.4 2.2 - 3.9 G/DL [facility] A/G RATIO 0.8 0.7 - 1.7 [facility] TER SPECIALISTS [facility] PLEASE NOTE: COMMENT [facility] Comment: PROTEIN ELECTROPHORESIS SCAN WILL FOLLOW VIA COMPUTER, MAIL, OR FINANCIAL REPRESENTATIVE DELIVERY. PDF . [facility] Blood 06/17/2024 2:[address] [facility] - 06/18/2024 3:10 PM CDT TESTING PERFORMED AT: [CB] [facility], [address] [place] [address], [id number], PHONE: [phone], DAY GUARD: PEGGY MARCUS, PHD Release to patient->Immediate Esther Oreilly APRN, BUSINESS INITIATIVES MANAGER CHEMISTRY ORDERAB LES Final Result Performing Organization Address [facility] Co de Phone Number [facility] TE[facility] [place] [address], [place] [phone] * IMMUNOFIXATION, SERUM [place] (06/17/2024 2:52 PM CDT) IMMUNOFIXATION RESULT, SERUM COMMENT [facility] Comment:NO MONOCLONALITY DET ECTED. 06/17/2024 2:[address] [facility] - 06/18/2024 3:10 PM CDT TESTING PERFORMED AT: [CB] [facility], [address] [place] [address], [id number], PHONE: [phone], DAY GUARD: PEGGY MARCUS, PHD Release to patient->Immediate Esther Oreilly APRN, BUSINESS INITIATIVES MANAGER LAB SEND OUTS F inal Result Performing Organization Address [facility]/ZIP Co de Phone Number [facility] [place] [address], [place] [phone] * (ABNORMAL) SERUM FREE LIGHT CHAINS, [place] (06/17/2024 2:52 PM CDT) FREE KAPPA LT CHAINS 189.1(H) 2.9 - 20.7 mg/L [facility] FREE LAMBDA LT CHAINS 167.5(H) 4.2 - 27.6 mg/L [facility] KAPPA/LAMBDA RATIO 1.13 0.22 - 1.74 [facility] 06/17/2024 2:52 PM CDT Narrative [facility] - 06/18/2024 1:11 PM CDT Release to patient->Immediate us Esther Oreilly APRN, BUSINESS INITIATIVES MANAGER LAB SEND OUTS F inal Result [facility] [place] [address], documented in this encounter Visit Diagnoses Diagnosis Hypogammaglobulinemia (HCC) Hypogammaglobulinaemia, unspecified 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) Iron deficiency Other disorders of iron metabolism documented in this encounter Additional Health Concerns Assessment Noted Time PHQ-9 Depression Total Score: 0 03/08/20 21 11:06 AM CDT documented as of this encounter Care Teams Radio Interference Investigator Relationship Specialty Start Date End Date Jonatan Worley [address] [place] [address] PCP - General Family Medicine 07/12/20 Srinivasa Lee MD [address] [place] [phone] Consulting Physician Oncology 07/12/20 documented as of this encounter
--- OUTSIDE RECORDS SUMMARY | 2024-08-29 03:45 | XMS_ITS | Encounter Summary ---
Author Organization [facility] Address [address] [place] [address] Phone Care Team Providers Care Change Booth Attendant Name Role Phone Jonatan Worley Primary Care Provider Srinivasa Lee MD Unavailable Reason for Visit * Reason Onset Date Comments Medication Refill 04/14/2023 Encounter Details Date Type Department Care Team (Late st Contact Info) Description 04/14/2023 Refill [facility] [address] [address] Srinivasa Lee MD [address] [address] Medication Refill Social History Tobacco [...] on file Legal Sex Female 11:51 AM CLERK TELEVISION PRODUCTION Gender Identity Not on file Sexual Orientation Not on file documented as of this encounter Miscellaneous Notes * Telephone Encounter - Diana Maldonado RN - 04/14/2023 4:09 PM CDT Please fill if appropriate, patient is at end of 30 days. Tolerating oral Iron well. Please fill if appropriate documented in this encounter Plan of Treatment Upcoming Encounters Date Type Department Care Team (Late st Contact Info) Description 10/18/2024 1:30 PM CLERK TELEVISION PRODUCTION Office Visit [facility] [place] [address] [place] [phone] Srinivasa Lee MD [address] [facility] [address] [phone] documented as of this encounter Visit Diagnoses Not on filedocumented in this encounter Additional Health Concerns Assessment Noted Time PHQ-9 Depression Total Score: 0 03/08/20 11:06 AM CDT documented as of this encounter Care Teams Change Booth Attendant Relationship Specialty Start Date End Date Jonatan Worley [address] [place] [address] PCP - General Family Medicine 07/12/20 Srinivasa Lee MD [address] [place] [phone] Consulting Physician Oncology 07/12/20 documented as of this encounter
--- OUTSIDE RECORDS SUMMARY | 2024-08-29 03:46 | XMS_ITS | Encounter Summary ---
Author Organization [employer] Care Team Providers Care President And Chief Commercial Officer Name Role Phone Jonatan Worley Primary Care Provider [phone] Srinivasa Lee MD Unavailable [phone] Encounter Details Date Type Department Care Team (Latest Contact Info) Description 03/08/2021 Travel Social History Tobacco Use Types Packs/Day Years Used Date Smoking Tobacco: Never Smokeless Tobacco: Never Alcohol Use Standard Drinks/Week Comments Not Currently 0 (1 standard drink = 0.6 oz pur e alcohol) PHQ-2 Answer Date Recorded Total Score - Questions 1-9 0 02/22 Education Answer Date Recorded What is the highest level of school you have completed or the highest degree you have received? 12th grade 07/28/2020 Sexually Active Control Partners Comments Yes Post-menopausal Comments No Sex and Gender Information Value Date Recorded Sex Assigned at Not on file Legal Sex Female 11:51 AM OPERATIONS RESEARCH DIRECTOR Gender Identity Not on file Sexual Orientation Not on file COVID-19 Exposure Response Date Recorded In the last month, have you been in contact with someone who was confirmed or suspected to have Coronavirus / COVID-19? No / Unsure 03/08/2021 10:55 AM CDT documented as of this encounter Plan of Treatment Upcoming Encounters Date Type Department Care Team (Late st Contact Info) Description 10/18/2024 1:30 PM OPERATIONS RESEARCH DIRECTOR Office Visit [facility] [address] [address] Srinivasa Lee MD [address] [phone] documented as of this encounter Visit Diagnoses Not on filedocumented in this encounter Additional Health Concerns Assessment Noted Time PHQ-9 Depression Total Score: 0 03/08/20 21 11:06 AM CDT documented as of this encounter Care Teams President And Chief Commercial Officer Relationship Specialty Start Date End Date Jonatan Worley [address] [place] [address] PCP - General Family Medicine 07/12/20 Srinivasa Lee MD [address] [place] [address] Consulting Physician Oncology 07/12/20 documented as of this encounter
--- OUTSIDE RECORDS SUMMARY | 2024-08-29 03:46 | XMS_ITS | Encounter Summary ---
Author Organization [employer] Care Team Providers Care Newspaper Stuffer Name Role Phone Jonatan Worley Primary Care Provider [phone] Srinivasa Lee MD Unavailable [phone] Encounter Details Date Type Department Care Team (Latest Contact Info) Description 09/06/2021 Travel Social History Tobacco Use Types Packs/Day Years Used Date Smoking Tobacco: Never Smokeless Tobacco: Never Alcohol Use Standard Drinks/Week Comments Not Currently 0 (1 standard drink = 0.6 oz pur e alcohol) PHQ-2 Answer Date Recorded Total Score - Questions 1-9 0 08/25 Education Answer Date Recorded What is the highest level of school you have completed or the highest degree you have received? 12th grade 07/28/2020 Sexually Active Control Partners Comments Yes Post-menopausal Comments No Sex and Gender Information Value Date Recorded Sex Assigned at Not on file Legal Sex Female 11:51 AM MANGLE TENDER Gender Identity Not on file Sexual Orientation Not on file COVID-19 Exposure Response Date Recorded In the last month, have you been in contact with someone who was confirmed or suspected to have Coronavirus / COVID-19? No / Unsure 09/06/2021 11:11 AM MANGLE TENDER documented as of this encounter Plan of Treatment Upcoming Encounters Date Type Department Care Team (Late st Contact Info) Description 10/18/2024 1:30 PM MANGLE TENDER Office Visit [facility] [address] [address] Srinivasa Lee MD [address] [address] documented as of this encounter Visit Diagnoses Not on filedocumented in this encounter Additional Health Concerns Assessment Noted Time PHQ-9 Depression Total Score: 0 03/08/20 21 11:06 AM CDT documented as of this encounter Care Teams Newspaper Stuffer Relationship Specialty Start Date End Date Jonatan Worley [address] [place] [address] PCP - General Family Medicine 07/12/20 Srinivasa Lee MD [address] [place] [phone] Consulting Physician Oncology 07/12/20 documented as of this encounter
--- OUTSIDE RECORDS SUMMARY | 2024-08-29 03:46 | XMS_ITS | Encounter Summary ---
Author Organization [employer] Care Team Providers Care Engineer Conductor Name Role Phone Jonatan Worley Primary Care Provider [phone] Srinivasa Lee MD Unavailable [phone] Encounter Details Date Type Department Care Team (Latest Contact Info) Description 07/28/2020 Travel Social History Tobacco Use Types Packs/Day Years Used Date Smoking Tobacco: Never Smokeless Tobacco: Never Alcohol Use Standard Drinks/Week Comments Not Currently 0 (1 standard drink = 0.6 oz pur e alcohol) PHQ-2 Answer Date Recorded PHQ-2 Score 0 07/28/2020 Education Answer Date Recorded What is the highest level of school you have completed or the highest degree you have received? 12th grade 07/28/2020 Sexually Active Control Partners Comments Yes Post-menopausal Comments No Sex and Gender Information Value Date Recorded Sex Assigned at Not on file Legal Sex Female 11:51 AM MASONRY SUPERVISOR Gender Identity Not on file Sexual Orientation Not on file COVID-19 Exposure Response Date Recorded In the last month, have you been in contact with someone who was confirmed or suspected to have Coronavirus / COVID-19? No / Unsure 07/28/2020 10:59 AM MASONRY SUPERVISOR documented as of this encounter Plan of Treatment Upcoming Encounters Date Type Department Care Team (Late st Contact Info) Description 10/18/2024 1:30 PM MASONRY SUPERVISOR Office Visit [facility] [address] [address] Srinivasa Lee MD [address] [place] [address] [place] [phone] documented as of this encounter Visit Diagnoses Not on filedocumented in this encounter Additional Health Concerns Assessment Noted Time PHQ-9 Depression Total Score: 0 07/28/20 20 11:51 AM MASONRY SUPERVISOR documented as of this encounter Care Teams Engineer Conductor Relationship Specialty Start Date End Date Jonatan Worley [address] [place] [address] PCP - General Family Medicine 07/12/20 Srinivasa Lee MD [address] [place] [phone] Consulting Physician Oncology 07/12/20 documented as of this encounter
--- OUTSIDE RECORDS SUMMARY | 2024-08-29 03:46 | XMS_ITS | Encounter Summary ---
Author Organization [facility] Address [address] [place] [address] Phone Care Team Providers Care Disintegrator Feeder Name Role Phone Jonatan Worley Primary Care Provider [phone] Srinivasa Lee MD Unavailable [phone] Encounter Details Date Type Department Care Team (Late st Contact Info) Description 12/06/2021 Telephone [facility] [place] [address] [place] [address] Srinivasa Lee MD [facility] [address] [address] Social History Tobacco Use Types [...] on file Legal Sex Female 11:51 AM COLLEGE HIRE Gender Identity Not on file Sexual Orientation Not on file documented as of this encounter Miscellaneous Notes * Telephone Encounter - Bebeto Malagonelle - 12/06/2021 10:45 AM CDT Pt's stated that Mrs. Ernandez in the hospital at [facility]. documented in this encounter Plan of Treatment Upcoming Encounters Date Type Department Care Team (Late st Contact Info) Description 10/18/2024 1:30 PM COLLEGE HIRE Office Visit [facility] [place] [address] [place] [phone] Srinivasa Lee MD [address] [facility] [address] [place] [address] documented as of this encounter Visit Diagnoses Not on filedocumented in this encounter Additional Health Concerns Assessment Noted Time PHQ-9 Depression Total Score: 0 03/08/20 21 11:06 AM CDT documented as of this encounter Care Teams Disintegrator Feeder Relationship Specialty Start Date End Date WorleyJonatan [address] [place] [address] PCP - General Family Medicine 07/12/20 Srinivasa Lee MD [address] [place] [phone] Consulting Physician Oncology 07/12/20 documented as of this encounter
--- OUTSIDE RECORDS SUMMARY | 2024-08-29 03:46 | XMS_ITS | Encounter Summary ---
Author Organization [facility] Address [address] [place] [address] Phone Care Team Providers Care Crossing Watchman Name Role Phone Jonatan Worley Primary Care Provider Srinivasa Lee MD Unavailable Reason for Visit * Reason Comments Follow-up Encounter Details Date Type Department Care Team (Latest Contact Info) Description 06/14/2022 9:30 AM CDT Office Visit [facility] [address] [place] [address] Esther Oreilly, TALENT ACQUISITION SOURCER, CNC MANAGER [address] [place] [address] Hypogammaglobulinemia (HCC) (Primary Dx); Anemia of unknown [...] on file Legal Sex Female 11:51 AM OPTOMETRY DOCTOR Gender Identity Not on file Sexual Orientation Not on file COVID-19 Exposure Response Date Recorded In the last 10 days, have yo u been in contact with someone who was confirmed or suspected to have Coronavirus/COVID-19? No / Unsure 06/14/2022 9:24 AM CDT documented as of this encounter Last Filed Vital Signs Vital Sign Reading Time Taken Comments Blood Pressure 146/76 06/14/2022 9:48 AM CDT Pulse 70 06/14/2022 9:48 AM CDT Temperature 36 ??C (96.8 ??F) 06/14/2022 9:48 AM CDT Respiratory Rate 18 06/14/2022 9:48 AM CDT Oxygen Saturation 99% 06/14/2022 9:48 AM CDT Inhaled Oxygen Concentration - - Weight 97.1 kg (214 lb 1.6 oz) 06/14/2022 9:48 A M CDT Height 170.2 cm (5' 7 ) 06/14/2022 9:48 AM CDT Body Mass Index 33.53 06/14/2022 9:48 AM CDT documented in this encounter Progress Notes * Esther Rojas APRN, CNP - 06/14/2022 9:30 AM CDT Images from the original note were not included. Patient: Arely Ernandez Age: 61 y.o. : 1960 Encounter Dept: [facility] Encounter Date: 06/14/2022 Care Team: Current Providers PCP: Jonatan Worley Care Team Provider: Srinivasa Lee MD Encounter Provider: Esther Rojas APRN, CNP Referring Provider: Jonatan Worley Nurse Practitioner: Esther Rojas APRN, CNP HISTORY OF PRESENT ILLNESS: Ms. Arely Ernandez returns to clinic for follow-up of her Hypogammaglobulinemia and anemia. Since her last visit, Arely states she has been doing well. She has no major complaints. Patient denies any headaches, fevers, chills, chest pain, abdominal pain, or bleeding. She has occasional dyspnea on exertion. DIAGNOSIS: Hypogammaglobulinemia and anemia. PAST TREATMENT: Not [...] is doing stable. 2. Laboratory evaluation from showed a white blood cell count of 8.8, hemoglobin 9.6, hematocrit 28.4, and platelet count of 183. Iron studies and ferritin are still in process. 3. Labs discussed with Dr. Lee. Patient remains asymptomatic. Will continue with observation. 4. Could consider EPO in the future. 5. I will have the patient return to clinic for follow-up with office visit and labs in three months. 6. I encouraged the patient to call with [...] results shown below reviewed. MD Esther Arriola, MICHELA, [facility]- Vitals: Vitals: 06/14/22 0948 BP: 146/76 BP Location: Right Arm BP Position: Sitting BP Cuff Size: Regular Pulse: 70 Resp: 18 Temp: 96.8 ??F (36 ??C) TempSrc: Temporal SpO2: 99% Weight: 214 lb 1.6 oz (97.1 kg) Height: 5' 7 (1.702 m) Body surface area is 2.14 meters squared. Body mass index is 33.53 kg/m??. Pain Score: 0 - No pain [...] grade Tobacco Use ??? Smoking status: Never Smoker ??? Smokeless tobacco: Never Used Vaping Use ??? Vaping Use: Never used [...] tracked chemicals: Doxorubicin, Epirubicin, Idarubicin, Daunorubicin, Mitoxantrone, Bleomycin Current Medications: Outpatient Encounter Medications as of 06/14/2022 Medication Sig Dispense Refill ??? amLODIPine (NORVASC) 5 MG Tablet TAKE 1 TABLET BY MOUTH ONCE DAILY ??? aspirin 81 MG Chewable Tablet Take 81 mg by mouth daily. ??? brimonidine (ALPHAGAN) 0.2 % Solution INSTILL 1 DROP INTO EACH EYE TWICE DAILY ??? Dapagliflozin Propanediol (Farxiga) 10 MG Tablet Take 1 Tablet by mouth. ??? dorzolamide (TRUSOPT) 2 % Solution INSTILL 1 DROP INTO RIGHT EYE 4 TIMES DAILY ??? ergocalciferol (VITAMIN D) [address]354 UNIT Capsule TAKE 1 CAPSULE BY MOUTH ONCE A WEEK ??? glimepiride (AMARYL) 2 MG Tablet Take 2 mg by mouth every morning. ??? glimepiride (AMARYL) 4 MG Tablet TAKE 1 TABLET BY MOUTH ONCE DAILY ??? hydrALAZINE 10 MG Tablet TAKE 1 TABLET BY MOUTH TWICE DAILY WITH FOOD ??? ketorolac, ophth, (ACULAR) 0.5 % Solution ??? loteprednol etabonate (LOTEMAX) 0.5 % Suspension INSTILL 1 DROP INTO RIGHT EYE 4 TIMES DAILY ??? metoprolol Succinate (TOPROL-XL) 100 MG TABLET SR 24 HR TAKE 1 TABLET BY MOUTH ONCE DAILY ??? ofloxacin (OCUFLOX) 0.3 % Solution ??? prednisoLONE acetate (PRED FORTE) 1 % Suspension INSTILL 1 DROP INTO RIGHT EYE TWICE DAILY ??? rosuvastatin (CRESTOR) 5 MG Tablet TAKE 1 TABLET BY MOUTH ONCE DAILY ??? timolol (TIMOPTIC) 0.5 % Solution INSTILL 1 DROP INTO EACH EYE TWICE DAILY No facility-administered encounter medications on file as of 06/14/2022. Labs: Lab on 06/14/2022 Component Date Value Ref Range Status ??? WBC 06/14/2022 8.8 4.0 - 10.0 10*3/uL Final ??? HGB 06/14/2022 9.6 (A) 11.2 - 15.7 g/dL Final ??? HCT 06/14/2022 28.4 (A) 34.1 - 44.9 % Final ??? PLT 06/14/2022 183 163 - 369 10*3/uL Final ??? MPV 06/14/2022 11.0 9.4 - 12.4 fL Final ??? RBC 06/14/2022 3.22 (A) 3.93 - 5.22 10*6/uL Final ??? MCV 06/14/2022 88 79 - 95 fL Final ??? MCH 06/14/2022 29.8 25.6 - 32.2 pg Final ??? MCHC 06/14/2022 33.8 32.2 - 36.5 g/dL Final ??? RDW 06/14/2022 12.7 11.6 - 14.4 % Final Cosigned by Srinivasa Lee MD at 06/19/2022 1:38 PM CDT documented in this encounter Plan of Treatment Upcoming Encounters Date Type Department Care Team (Late st Contact Info) Description 10/18/2024 1:30 PM OPTOMETRY DOCTOR Office Visit [facility] [address] [phone] Srinivasa Lee MD [facility] [address] [address] documented as of this encounter Results * (ABNORMAL) IRON W/ IRON BINDING CAPACITY [place] (09/06/2022 9:12 AM OPTOMETRY DOCTOR) IRON 48(L) 50 - 212 ug/dL [facility] UIBC 189 155 - 355 ug/dL [facility] TIBC 237(L) 261 - 478 ug/dl [facility] % Saturation 20 20 - 50 % [facility] 09/06/2022 9:12 AM OPTOMETRY DOCTOR Narrative [facility] - 09/06/2022 10:06 AM OPTOMETRY DOCTOR Release to patient->Immediate Esther Oreilly APRN, [facility] SEND OUTS F inal Result [facility] [address] [address], * FERRITIN (09/06/2022 9:12 AM OPTOMETRY DOCTOR) Ferritin 49 11 - 307 ng/mL [facility] Blood 09/06/2022 9:12 AM OPTOMETRY DOCTOR Narrative [facility] - 09/06/2022 2:01 PM OPTOMETRY DOCTOR Release to patient->Immediate Esther Oreilly TALENT ACQUISITION SOURCER, CNC MANAGER CHEMISTRY ORDERAB LES Final Result [facility] PR[facility] MGMT DEV MANAGER [facility] [address] [place] [address], * (ABNORMAL) CMP (COMPREHENSIVE METABOLIC PANEL) (09/06/2022 9:12 AM OPTOMETRY DOCTOR) Glucose 186(H) 70 - 105 mg/dL [facility] Blood Urea Nitrogen 43(H) 7 - 25 mg/dL [facility] Creatinine 2.6(H) 0.6 - 1.2 mg/dL [facility] Sodium 137 136 - 145 mEq/L [facility] Potassium 4.9 3.5 - 5.1 mEq/L [facility] Chloride 106 98 - 107 mEq/L [facility] Bicarbonate 22 21 - 31 mEq/L [facility] Total Bilirubin 0.3 0.3 - 1.0 mg/dL [facility] Alk. Phosphatase 76 34 - 104 U/L [facility] Aspartate Aminotransferase 14 13 - 39 U/L [facility] Alanine Aminotransferase 11 7 - 52 U/L [facility] Total Protein 5.2(L) 6.4 - 8.9 g/dL [facility] Albumin 3.1(L) 3.5 - 5.7 g/dL [facility] Calcium 8.3(L) 8.6 - 10.3 mg/dL [facility] Anion Gap 13.9 7.0 - 15.0 mEq/L [facility] Globulin 2.1 2.0 - 3.5 g/dL [facility] EGFR 20(L) >60 ml/min/1. 73m2 [facility] Comment: This eGFR is calculated using 2020 CKD-EPI Creatinine equation without race modifier based on the NKF-ASN task force recommendations Blood 09/06/2022 9:12 AM OPTOMETRY DOCTOR Narrative [facility] - 09/06/2022 10:06 AM OPTOMETRY DOCTOR IS THE PATIENT REQUIRED TO BE FASTING FOR 8 HOURS?->No Release to patient->Immediate Esther Oreilly TALENT ACQUISITION SOURCER, CNC MANAGER CHEMISTRY ORDERAB LES Final Result [facility] [address] [place] [address], * (ABNORMAL) COMPLETE BLOOD COUNT (CBC) WITH DIFF (09/06/2022 9:12 AM OPTOMETRY DOCTOR) WBC 9.7 4.0 - 10.0 10*3/uL [facility] HGB 10.1(L) 11.2 - 15.7 g/dL [facility] HCT 29.5(L) 34.1 - 44.9 % [facility] PLT 184 163 - 369 10*3/uL [facility] MPV 11.4 9.4 - 12.4 fL [facility] RBC 3.35(L) 3.93 - 5.22 10*6/uL [facility] MCV 88 79 - 95 fL [facility] MCH 30.1 25.6 - 32.2 pg [facility] MCHC 34.2 32.2 - 36.5 g/dL [facility] RDW 12.4 11.6 - 14.4 % [facility] Absolute Neutrophil Count 6,472 cells/uL [facility] Absolute Seg Count 6,472 1,440 - 6,600 cells/uL [facility] Absolute Lymph Count 2,029 760 - 4,000 cells/uL [facility] Absolute Screven Count 580 160 - 1,200 cells/uL [facility] Absolute Eos Count 580(H) 0 - 300 cells/uL [facility] Segmented Neutrophils 67(H) 36 - 66 % [facility] Lymphocytes 21 19 - 40 % [facility] Monocytes 6 4 - 12 % [facility] Eosinophils 6(H) 0 - 3 % [facility] WBC Estimate Normal [facility] Platelet Estimate Normal [facility] RBC Morphology Normal [facility] Blood 09/06/2022 9:12 AM OPTOMETRY DOCTOR Narrative [facility] - 09/06/2022 11:23 AM OPTOMETRY DOCTOR Release to patient->Immediate Esther Oreilly APRN, CNC MANAGER HEMATOLOGY ORDERA BLES Final Result [facility] [place] [address], [place] [address] [phone] documented in this encounter Visit Diagnoses Diagnosis Hypogammaglobulinemia (HCC)- Primary Hypogammaglobulinaemia, unspecified Anemia of unknown etiology Anemia, unspecified Hypogammaglobulinemia (HCC) Hypogammaglobulinaemia, unspecified Anemia of unknown etiology Anemia, unspecified documented in this encounter Additional Health Concerns Assessment Noted Time PHQ-9 Depression Total Score: 0 03/08/20 21 11:06 AM CDT documented as of this encounter Care Teams Crossing Watchman Relationship Specialty Start Date End Date Jonatan Worley [address] [facility] [place] [address] PCP - General Family Medicine 07/12/20 Srinivasa Lee MD [address] [place] [address] Consulting Physician Oncology 07/12/20 documented as of this encounter
--- OUTSIDE RECORDS SUMMARY | 2024-08-29 03:46 | XMS_ITS | Encounter Summary ---
Author Organization [facility] Address [address] [place] [address] Phone Care Team Providers Care Mechanic Helper Name Role Phone Jonatan Worley Primary Care Provider [phone] Srinivasa Lee MD Unavailable [phone] Reason for Visit * Reason Comments Follow-up Encounter Details Date Type Department Care Team (Latest Contact Info) Description 12/06/2022 9:30 AM CDT Office Visit [facility] [address] [address] Buzz Sales, RICCI Hypogammaglobulinemia (HCC) [...] file Legal Sex Female 11:51 AM COLLEGE AND CAREER COUNSELOR Gender Identity Not on file Sexual Orientation Not on file COVID-19 Exposure Response Date Recorded In the last 10 days, have yo u been in contact with someone who was confirmed or suspected to have Coronavirus/COVID-19? No / Unsure 12/06/2022 9:27 AM CDT documented as of this encounter Last Filed Vital Signs Vital Sign Reading Time Taken Comments Blood Pressure 136/88 12/06/2022 9:37 AM CDT Pulse 67 12/06/2022 9:37 AM CDT Temperature 36.7 ??C (98 ??F) 12/06/2022 9:37 AM CDT Respiratory Rate 18 12/06/2022 9:37 AM CDT Oxygen Saturation 99% 12/06/2022 9:37 AM CDT Inhaled Oxygen Concentration - - Weight 97.3 kg (214 lb 8 oz) 12/06/2022 9:37 AM CDT Height 170.2 cm (5' 7 ) 12/06/2022 9:37 AM CDT Body Mass Index 33.6 12/06/2022 9:37 AM CDT documented in this encounter Functional [...] Naranjo CMA documented as of this encounter Progress Notes * Buzz Sales PAC - 12/06/2022 9:30 AM CDT Images from the original note were not included. Patient: Arely Ernandez Age: 61 y.o. : 1960 [facility]counter Date: 12/06/2022 Care Team: Current Providers PCP: Jonatan Worley Care Team Provider: Srinivasa Lee MD Encounter Provider: Buzz Sales PAC Referring Provider: not found Physician Offset Label Rewinder: Buzz Sales PAC HISTORY OF PRESENT ILLNESS: The patient presents to the office today for a follow up visit. Reporting itchy watery eyes likely allergies. Followed by PCP and Ophthalmology. Denies headaches, lightheadedness, dizziness, chest pain or discomfort. No abdominal pain or discomfort. No particular changesto her bowels. DIAGNOSIS: Hypogammaglobulinemia and anemia. PAST TREATMENT: Not [...] with the patient. PLAN: 1. Labs today 2. RTC 3 months. Order MM panel on next visit TIME SPENT: PAST MEDICAL HISTORY, PAST SURGICAL [...] All lab results shown below reviewed. MD Buzz Arriola PA-C/jeanine Vitals: Vitals: 12/06/22 0937 BP: 136/88 BP Location: Left Arm BP Position: Sitting BP Cuff Size: Regular Pulse: 67 Resp: 18 Temp: 98 ??F (36.7 ??C) TempSrc: Temporal SpO2: 99% Weight: 214 lb 8 oz (97.3 kg) Height: 5' 7 (1.702 m) Body surface area is 2.14 meters squared. Body mass index is 33.6 kg/m??. Pain Score: 0 - No pain [...] Current Medications: Outpatient Encounter Medications as of 12/06/2022 Medication Sig Dispense Refill amLODIPine (NORVASC) 5 MG Tablet TAKE 1 TABLET BY MOUTH ONCE DAILY aspirin 81 MG Chewable Tablet Take 81 mg by mouth daily. brimonidine (ALPHAGAN) 0.2 % Solution INSTILL 1 DROP INTO EACH EYE TWICE DAILY Dapagliflozin Propanediol (Farxiga) 10 MG Tablet Take 1 Tablet by mouth. dorzolamide (TRUSOPT) 2 % Solution INSTILL 1 DROP INTO RIGHT EYE 4 TIMES DAILY ergocalciferol (VITAMIN D) 40663 UNIT Capsule TAKE 1 CAPSULE BY MOUTH ONCE A WEEK glimepiride (AMARYL) 2 MG Tablet Take 2 mg by mouth every morning. glimepiride (AMARYL) 4 MG Tablet TAKE 1 TABLET BY MOUTH ONCE DAILY hydrALAZINE 10 MG Tablet TAKE 1 TABLET BY MOUTH TWICE DAILY WITH FOOD ketorolac, ophth, (ACULAR) 0.5 % Solution loteprednol etabonate (LOTEMAX) 0.5 % Suspension INSTILL 1 DROP INTO RIGHT EYE 4 TIMES DAILY metoprolol Succinate (TOPROL-XL) 100 MG TABLET SR 24 HR TAKE 1 TABLET BY MOUTH ONCE DAILY ofloxacin (OCUFLOX) 0.3 % Solution prednisoLONE acetate (PRED FORTE) 1 % Suspension INSTILL 1 DROP INTO RIGHT EYE TWICE DAILY (Patientnot taking: Reported on 09/06/2022) rosuvastatin (CRESTOR) 5 MG Tablet TAKE 1 TABLET BY MOUTH ONCE DAILY timolol (TIMOPTIC) 0.5 % Solution INSTILL 1 DROP INTO EACH EYE TWICE DAILY No facility-administered encounter medications on file as of 12/06/2022. Labs: No visits with results within 7 Day(s) from this visit. Latest known visit with results is: Lab on 09/06/2022 Component Date Value Ref Range Status IRON 09/06/2022 48 (L) 50 - 212 ug/dL Final UIBC 09/06/2022 189 155 - 355 ug/dL Final TIBC 09/06/2022 237 (L) 261 - 478 ug/dl Final % Saturation 09/06/2022 20 20 - 50 % Final Ferritin 09/06/2022 49 11 - 307 ng/mL Final Glucose 09/06/2022 186 (H) 70 - 105 mg/dL Final Blood Urea Nitrogen 09/06/2022 43 (H) 7 - 25 mg/dL Final Creatinine 09/06/2022 2.6 (H) 0.6 - 1.2 mg/dL Final Sodium 09/06/2022 137 136 - 145 mEq/L Final Potassium 09/06/2022 4.9 3.5 - 5.1 mEq/L Final Chloride 09/06/2022 106 98 - 107 mEq/L Final Bicarbonate 09/06/2022 22 21 - 31 mEq/L Final Total Bilirubin 09/06/2022 0.3 0.3 - 1.0 mg/dL Final Alk. Phosphatase 09/06/2022 76 34 - 104 U/L Final Aspartate Aminotransferase 09/06/2022 14 13 - 39 U/L Final Alanine Aminotransferase 09/06/2022 11 7 - 52 U/L Final Total Protein 09/06/2022 5.2 (L) 6.4 - 8.9 g/dL Final Albumin 09/06/2022 3.1 (L) 3.5 - 5.7 g/dL Final Calcium 09/06/2022 8.3 (L) 8.6 - 10.3 mg/dL Final Anion Gap 09/06/2022 13.9 7.0 - 15.0 mEq/L Final Globulin 09/06/2022 2.1 2.0 - 3.5 g/dL Final EGFR 09/06/2022 20 (L) >60 ml/min/1.73m2 Final Comment: This eGFR is calculated using 2020 CKD-EPI Creatinine equation without race modifier based on the NKF-ASN task force recommendations WBC 09/06/2022 9.7 4.0 - 10.0 10*3/uL Final HGB 09/06/2022 10.1 (L) 11.2 - 15.7 g/dL Final HCT 09/06/2022 29.5 (L) 34.1 - 44.9 % Final PLT 09/06/2022 184 163 - 369 10*3/uL Final MPV 09/06/2022 11.4 9.4 - 12.4 fL Final RBC 09/06/2022 3.35 (L) 3.93 - 5.22 10*6/uL Final MCV 09/06/2022 88 79 - 95 fL Final MCH 09/06/2022 30.1 25.6 - 32.2 pg Final MCHC 09/06/2022 34.2 32.2 - 36.5 g/dL Final RDW 09/06/2022 12.4 11.6 - 14.4 % Final Absolute Neutrophil Count 09/06/2022 6,472 cells/uL Final Absolute Seg Count 09/06/2022 6,472 1,440 - 6,600 cells/uL Final Absolute Lymph Count 09/06/2022 2,029 760 - 4,000 cells/uL Final Absolute [place] Count 09/06/2022 580 160 - 1,200 cells/uL Final Absolute Eos Count 09/06/2022 580 (H) 0 - 300 cells/uL Final Segmented Neutrophils 09/06/2022 67 (H) 36 - 66 % Final Lymphocytes 09/06/2022 21 19 - 40 % Final Monocytes 09/06/2022 6 4 - 12 % Final Eosinophils 09/06/2022 6 (H) 0 - 3 % Final WBC Estimate 09/06/2022 Normal Final Platelet Estimate 09/06/2022 Normal Final RBC Morphology 09/06/2022 Normal Final Cosigned by Srinivasa Lee MD at 12/11/2022 11:40 AM CDT documented in this encounter Plan of Treatment Upcoming Encounters Date Type Department Care Team (Late st Contact Info) Description 10/18/2024 1:30 PM COLLEGE AND CAREER COUNSELOR Office Visit [facility] [address] [phone] Srinivasa Lee MD [address] [place] [address] [facility] [address] [place], [place] [id number] documented as of this encounter Results * VITAMIN B12 (03/07/2023 9:32 AM CDT) Vitamin B12 267 180 - 914 pg/mL CANCER STUDENT SERVICES DIRECTOR [facility] Blood 03/07/2023 9:32 AM CDT Narrative [facility] - 03/10/2023 2:37 PM CDT Release to patient->Immediate Buzz Sales PAC CHEMISTRY ORDERABLES Final Result CANCER STUDENT SERVICES DIRECTOR [facility] [address] [place] [address], * FERRITIN (03/07/2023 9:32 AM CDT) Ferritin 49 11 - 307 ng/mL [facility] Blood 03/07/2023 9:32 AM CDT Narrative CANCER STUDENT SERVICES DIRECTOR [facility] - 03/10/2023 2:37 PM CDT Release to patient->Immediate us Buzz Sales PAC CHEMISTRY ORDERABLES Final Result CANCER STUDENT SERVICES DIRECTOR [facility] [place] [address], [place] [phone] * (ABNORMAL) IRON W/ IRON BINDING CAPACITY [place] (03/07/2023 9:32 AM CDT) IRON 44(L) 50 - 212 ug/dL [facility] UIBC 205 155 - 355 ug/dL [facility] TIBC 249(L) 261 - 478 ug/dl [facility] % Saturation 18(L) 20 - 50 % [facility] Blood 03/07/2023 9:32 AM CDT [facility] - 03/07/2023 11:14 AM CDT Release to patient->Immediate us Buzz Sales PAC LAB SEND OUTS Final Resu lt Performing Organization Address [facility] Co de Phone Number [facility] [address] [place] [address], * LACTATE DEHYDROGENASE (LD) (03/07/2023 9:32 AM CDT) LDH 144 140 - 271 U/L [facility] Blood 03/07/2023 9:32 AM CDT [facility] - 03/07/2023 11:14 AM CDT Release to patient->Immediate us Buzz Sales PAC CHEMISTRY ORDERABLES Final Result Performing Organization Address [facility] Co de Phone Number [facility] [address] [place] [address], [place] [phone] * (ABNORMAL) CMP (COMPREHENSIVE METABOLIC PANEL) (03/07/2023 9:32 AM CDT) Glucose 192(H) 70 - 105 mg/dL [facility] Blood Urea Nitrogen 39(H) 7 - 25 mg/dL [facility] Creatinine 2.5(H) 0.6 - 1.2 mg/dL [facility] Sodium 138 136 - 145 mEq/L [facility] Potassium 4.8 3.5 - 5.1 mEq/L [facility] Chloride 109(H) 98 - 107 mEq/L [facility] Bicarbonate 20(L) 21 - 31 mEq/L [facility] Total Bilirubin 0.3 0.3 - 1.0 mg/dL [facility] Alk. Phosphatase 75 34 - 104 U/L [facility] Aspartate Aminotransferase 15 13 - 39 U/L [facility] Alanine Aminotransferase 11 7 - 52 U/L [facility] Total Protein 5.4(L) 6.4 - 8.9 g/dL [facility] Albumin 3.3(L) 3.5 - 5.7 g/dL [facility] Calcium 8.5(L) 8.6 - 10.3 mg/dL [facility] Anion Gap 13.8 7.0 - 15.0 mEq/L [facility] Globulin 2.1 2.0 - 3.5 g/dL [facility] EGFR 21(L) >60 ml/min/1. 73m2 [facility] Comment: This eGFR is calculated using 2020 CKD-EPI Creatinine equation without race modifier based on the NKF-ASN task force recommendations Blood 03/07/2023 9:32 AM CDT Narrative [facility] - 03/07/2023 11:13 AM CDT Release to patient->Immediate IS THE PATIENT REQUIRED TO BE FASTING FOR 8 HOURS?->No Buzz Sales PAC CHEMISTRY ORDERABLES Final Result [facility] [address] [place] [address], * (ABNORMAL) COMPLETE BLOOD COUNT (CBC) WITH DIFF (03/07/2023 9:32 AM CDT) WBC 10.5(H) 4.0 - 10.0 10*3/uL [facility] HGB 9.7(L) 11.2 - 15.7 g/dL [facility] HCT 30.4(L) 34.1 - 44.9 % [facility] PLT 195 163 - 369 10*3/uL [facility] MPV 11.5 9.4 - 12.4 fL [facility] RBC 3.30(L) 3.93 - 5.22 10*6/uL [facility] MCV 92 79 - 95 fL [facility] MCH 29.4 25.6 - 32.2 pg [facility] MCHC 31.9(L) 32.2 - 36.5 g/dL [facility] RDW 12.7 11.6 - 14.4 % [facility] Absolute Neutrophil Count 8,054 cells/uL [facility] Absolute Seg Count 7,950(H) 1,440 - 6,600 cells/uL [facility] Absolute Band Count 105 0 - 800 cells/uL [facility] Absolute Lymph Count 1,046 760 - 4,000 cells/uL [facility] Absolute [place] Count 314 160 - 1,200 cells/uL [facility] Absolute Eos Count 1,046(H) 0 - 300 cells/uL [facility] Segmented Neutrophils 76(H) 36 - 66 % [facility] Band Neutrophils 1 0 - 8 % [facility] Lymphocytes 10(L) 19 - 40 % [facility] Monocytes 3(L) 4 - 12 % [facility] Eosinophils 10(H) 0 - 3 % [facility] [place] WBC Estimate High [facility] Platelet Estimate Normal [facility] RBC Morphology Normal [facility] Blood 03/07/2023 9:32 AM CDT Narrative [facility] - 03/07/2023 1:22 PM CDT Release to patient->Immediate us Buzz Sales PAC HEMATOLOGY ORDERABLES Kmy noman Result [facility] [place] [address] [place] [address], [place] [phone] * (ABNORMAL) BETA 2 MICROGLOBULIN (12/06/2022 10:18 AM CDT) [id number] 9.72(H) 0.97 - 1.84 mg/L CANCER STUDENT SERVICES DIRECTOR [facility] Blood 12/06/2022 10:1 8 AM CDT Narrative CANCER STUDENT SERVICES DIRECTOR [facility] - 12/06/2022 2:06 PM CDT Release to patient->Immediate Buzz Sales PAC CHEMISTRY ORDERABLES Final Result CANCER STUDENT SERVICES DIRECTOR [facility] [address] [place] [address], [place] [phone] * (ABNORMAL) FREE KAPPA & LAMBDA LIGHT CHAINS SERUM (12/06/2022 10:18 AM CDT) FREE KAPPA LT CHAINS,S 108.7(H) 3.3 - 19.4 MG/L [facility] FREE LAMBDA LT CHAINS,S 49.1(H) 5.7 - 26.3 MG/L [facility] FREE KAPPA/FREE LAMBDA RATIO LT CHAINS 2.21(H) 0.26 - 1.65 [facility] Blood 12/06/2022 10:1 8 AM CDT Narrative [facility] - 12/09/2022 8:14 PM CDT TESTING PERFORMED AT: [] [facility], [address] [place] [address], [place], [address], PHONE: [phone], GROUNDS MANAGER: PEGGY MARCUS, PHD Release to patient->Immediate Buzz Sales PAC CHEMISTRY ORDERABLES Final Result [facility] * IMMUNOFIXATION, SERUM [place] (12/06/2022 10:18 AM CDT) Pathologist [facility] IMMUNOFIXATION RESULT, SERUM COMMENT [facility] Comment:NO MONOCLONALITY DET ECTED. 12/06/2022 10:1 8 AM CDT Narrative [facility] - 12/09/2022 1:08 PM CDT TESTING PERFORMED AT: [] [facility], [address] [place] [address], [address], PHONE: [phone], GROUNDS MANAGER: PEGGY MARCUS, PHD Release to patient->Immediate Buzz Sales [facility] LAB SEND OUTS Final Resu lt [facility] * (ABNORMAL) ELECTROPHORESIS W/ TOTAL PROTEIN SERUM (12/06/2022 10:18 AM CDT) Pathologist [facility] PROTEIN, TOTAL, SERUM 5.9(L) 6.0 - 8.5 G/DL [facility] ALBUMIN 3.1 2.9 - 4.4 G/DL [facility] XPRQZ-1-[id number] 0.3 0.0 - 0.4 G/DL [facility] [id number]-6-[id number] 0.8 0.4 - 1.0 G/DL [facility] BETA GLOBULIN 0.9 0.7 - 1.3 G/DL [facility] GAMMA GLOBULIN 0.7 0.4 - 1.8 G/DL [facility] M-SPIKE NOT OBSERVED NOT OBSERVED G/DL [facility] GLOBULIN, TOTAL 2.8 2.2 - 3.9 G/DL [facility] A/G RATIO 1.1 0.7 - 1.7 [facility] PLEASE NOTE: [facility] Comment: PROTEIN ELECTROPHORESIS SCAN WILL FOLLOW VIA COMPUTER, MAIL, OR ELECTRONICS TEST ENGINEER DELIVERY. PDF . [facility] Blood 12/06/2022 10:1 8 AM CDT Narrative [facility] - 12/09/2022 3:09 PM CDT TESTING PERFORMED AT: [] [facility], [address] [facility], [place], [address], PHONE: [phone], GROUNDS MANAGER: PEGGY MARCUS, PHD Release to patient->Immediate Buzz Sales PAC CHEMISTRY ORDERABLES Final Result [facility] * IMMUNOGLOBULIN IGA, IGG & IGM QUANT (12/06/2022 10:18 AM CDT) IGG 762 635 - 1,741 mg/dL [facility] IGA 210 66 - 433 mg/dL [facility] [place] STUDENT SERVICES [facility] IGM 57 45 - 281 mg/dL CANCER STUDENT SERVICES DIRECTOR [facility] Blood 12/06/2022 10:1 8 AM CDT [facility] - 12/06/2022 2:24 PM CDT Release to patient->Immediate Buzz Sales PAC CHEMISTRY ORDERABLES Final Result Performing Organization Address [facility]/ZIP Co de Phone Number [facility] [address] [address], [place] [phone] * VITAMIN B12 (12/06/2022 10:18 AM CDT) Vitamin B12 265 180 - 914 pg/mL [facility] Blood 12/06/2022 10:1 8 AM CDT [facility] - 12/06/2022 2:36 PM CDT Release to patient->Immediate Buzz Sales PAC CHEMISTRY ORDERABLES Final Result Performing Organization Address City/[facility]/ZIP Co de Phone Number [facility] [address] [place] [address], [place] [phone] * FERRITIN (12/06/2022 10:18 AM CDT) Ferritin 52 11 - 307 ng/mL [facility] Blood 12/06/2022 10:1 8 AM CDT [facility] CANCER STUDENT SERVICES DIRECTOR [facility] - 12/06/2022 2:36 PM CDT Release to patient->Immediate us Buzz Sales PAC CHEMISTRY ORDERABLES Final Result CANCER STUDENT SERVICES DIRECTOR [facility] [place] [place] [address], [place] [phone] * (ABNORMAL) IRON W/ IRON BINDING CAPACITY [place] (12/06/2022 10:18 AM CDT) IRON 49(L) 50 - 212 ug/dL [facility] UIBC 212 155 - 355 ug/dL [facility] TIBC 261 261 - 478 ug/dl [facility] % Saturation 19(L) 20 - 50 % [facility] Blood 12/06/2022 10:1 8 AM CDT [facility] - 12/06/2022 11:12 AM CDT Release to patient->Immediate Buzz Sales PAC LAB SEND OUTS Final Resu lt Performing Organization Address [facility]/ZIP Co de Phone Number [facility] [place] [address], [place] [phone] * LACTATE DEHYDROGENASE (LD) (12/06/2022 10:18 AM CDT) LDH 162 140 - 271 U/L [facility] Blood 12/06/2022 10:1 8 AM CDT [facility] - 12/06/2022 11:12 AM CDT Release to patient->Immediate us Buzz Sales PAC CHEMISTRY ORDERABLES Final Result Performing Organization Address [facility]/ZIP Co de Phone Number [facility] [address] [place] [address], [place] [phone] * (ABNORMAL) CMP (COMPREHENSIVE METABOLIC PANEL) (12/06/2022 10:18 AM CDT) Glucose 230(H) 70 - 105 mg/dL [facility] Blood Urea Nitrogen 53(H) 7 - 25 mg/dL [facility] Creatinine 2.9(H) 0.6 - 1.2 mg/dL [facility] Sodium 138 136 - 145 mEq/L [facility] Potassium 5.6(HH) 3.5 - 5.1 mEq/L [facility] Comment: Critical Result reported to Ely Lai on 12/06/2022 11:13 by ? Kaur Waller. Results were read back to caller. Chloride 109(H) 98 - 107 mEq/L [facility] Bicarbonate 22 21 - 31 mEq/L [facility] Total Bilirubin 0.4 0.3 - 1.0 mg/dL [facility] Alk. Phosphatase 64 34 - 104 U/L [facility] Aspartate Aminotransferase 16 13 - 39 U/L [facility] Alanine Aminotransferase 11 7 - 52 U/L [facility] Total Protein 5.8(L) 6.4 - 8.9 g/dL [facility] Albumin 3.5 3.5 - 5.7 g/dL [facility] Calcium 8.9 8.6 - 10.3 mg/dL [facility] Anion Gap 12.6 7.0 - 15.0 mEq/L [facility] Globulin 2.3 2.0 - 3.5 g/dL [facility] EGFR 18(L) >60 ml/min/1. 73m2 [facility] Comment: This eGFR is calculated using 2020 CKD-EPI Creatinine equation without race modifier based on the NKF-ASN task force recommendations Blood 12/06/2022 10:1 8 AM CDT Narrative [facility] - 12/06/2022 11:13 AM CDT Release to patient->Immediate IS THE PATIENT REQUIRED TO BE FASTING FOR 8 HOURS?->No us Buzz Sales PAC CHEMISTRY ORDERABLES Final Result [facility] [address] [place] [address], * (ABNORMAL) COMPLETE BLOOD COUNT (CBC) WITH DIFF (12/06/2022 10:18 AM CDT) WBC 12.2(H) 4.0 - 10.0 10*3/uL [facility] HGB 10.4(L) 11.2 - 15.7 g/dL [facility] HCT 30.7(L) 34.1 - 44.9 % [facility] PLT 194 163 - 369 10*3/uL [facility] MPV 11.1 9.4 - 12.4 fL [facility] RBC 3.52(L) 3.93 - 5.22 10*6/uL [facility] MCV 87 79 - 95 fL [facility] MCH 29.5 25.6 - 32.2 pg [facility] MCHC 33.9 32.2 - 36.5 g/dL [facility] RDW 12.4 11.6 - 14.4 % [facility] Absolute Neutrophil Count 9,485 cells/uL [facility] Absolute Seg Count 9,485(H) 1,440 - 6,600 cells/uL [facility] Absolute Lymph Count 973 760 - 4,000 cells/uL [facility] Absolute Presidio Count 608 160 - 1,200 cells/uL [facility] Absolute Eos Count 1,094(H) 0 - 300 cells/uL [facility] Segmented Neutrophils 78(H) 36 - 66 % [facility] Lymphocytes 8(L) 19 - 40 % [facility] Monocytes 5 4 - 12 % [facility] Eosinophils 9(H) 0 - 3 % [facility] WBC Estimate High [facility] Platelet Estimate Normal [facility] RBC Morphology Normal [facility] Blood 12/06/2022 10:1 8 AM CDT Narrative [facility] - 12/06/2022 1:29 PM CDT Release to patient->Immediate Buzz Sales PAC HEMATOLOGY ORDERABLES Kym l Result [facility] [address], [place] [address] [phone] documented in this encounter Visit Diagnoses Diagnosis [...] documented as of this encounter Care Teams Mechanic Helper Relationship Specialty Start Date End Date Jonatan Worley [address] [place] [address] PCP - General Family Medicine 07/12/20 Srinivasa Lee MD [address] [place] [address] Consulting Physician Oncology 07/12/20 documented as of this encounter
--- OUTSIDE RECORDS SUMMARY | 2024-08-29 03:46 | XMS_ITS | Encounter Summary ---
Author Organization [employer] Care Team Providers Care Security System Engineer Name Role Phone Jonatan Worley Primary Care Provider [phone] Srinivasa Lee MD Unavailable [phone] Encounter Details Date Type Department Care Team (Latest Contact Info) Description 09/08/2020 Travel Social History Tobacco Use Types Packs/Day [...] on file Legal Sex Female 11:51 AM S IRON WORKER Gender Identity Not on file Sexual Orientation Not on file COVID-19 Exposure Response Date Recorded In the last month, have you been in contact with someone who was confirmed or suspected to have Coronavirus / COVID-19? No / Unsure 09/08/2020 11:10 AM S IRON WORKER documented as of this encounter Plan of Treatment Upcoming Encounters Date Type Department Care Team (Late st Contact Info) Description 10/18/2024 1:30 PM S IRON WORKER [facility] [address] [address] Srinivasa Lee MD [address] [address] documented as of this encounter Visit Diagnoses Not on filedocumented in this encounter Additional Health Concerns Assessment Noted Time PHQ-9 Depression Total Score: 0 09/08/19 21 11:26 AM S IRON WORKER documented as of this encounter Care Teams Security System Engineer Relationship Specialty Start Date End Date Jonatan Worley [address] [place] [address] PCP - General Family Medicine 07/12/20 Srinivasa Lee MD [address] [place] [phone] Consulting Physician Oncology 07/12/20 documented as of this encounter
--- OUTSIDE RECORDS SUMMARY | 2024-08-29 03:46 | XMS_ITS | Encounter Summary ---
Author Organization [facility] Address [address] [place] [address] Phone Care Team Providers Care Pastry Wrapper Name Role Phone Jonatan Worley Primary Care Provider [phone] Srinivasa Lee MD Unavailable [phone] Encounter Details Date Type Department Care Team (Late Contact Info) Description 09/06/2021 12:05 PM HAT BRIM CURLER Lab [facility] [address] [address] Lab, [facility] Anemia of unknown etiology Social History Tobacco [...] on file Legal Sex Female 11:51 AM HAT BRIM CURLER Gender Identity Not on file Sexual Orientation Not on file COVID-19 Exposure Response Date Recorded In the last month, have you been in contact with someone who was confirmed or suspected to have Coronavirus / COVID-19? No / Unsure 09/06/2021 11:11 AM HAT BRIM CURLER documented as of this encounter Plan of Treatment Upcoming Encounters Date Type Department Care Team (Late st Contact Info) Description 10/18/2024 1:30 PM HAT BRIM CURLER Office Visit [facility] [place] [address] [place] [address] Srinivasa Lee MD [address] [place], [place] [address] documented as of this encounter Procedures Procedure Name Priority Date/Time Associated Diagnosis Comments IRON W/ IRON BINDING CAPACITY [place] Routine 09/06/2021 12:01 PM HAT BRIM CURLER Anemia of unknown etiology VITAMIN B12 Routine 09/06/2021 12:01 PM HAT BRIM CURLER Anemia of unknown etiology RETICULOCYTE COUNT (RETIC) Routine 09/06/2021 12:01 PM HAT BRIM CURLER Anemia of unknown etiology FOLIC ACID (FOLATE) Routine 09/06/2021 1 2:01 PM HAT BRIM CURLER Anemia of unknown etiology FERRITIN Routine 09/06/2021 12:01 PM HAT BRIM CURLER Anemia of unknown etiology COMPLETE BLOOD COUNT (CBC) WITH DIFF Routine 09/06/2021 12:01 PM HAT BRIM CURLER Anemia of unknown etiology documented in this encounter Results * (ABNORMAL) COMPLETE BLOOD COUNT (CBC) WITH DIFF (09/06/2021 12:01 PM HAT BRIM CURLER) WBC 10.3(H) 4.0 - 10.0 10*3/uL [facility] HGB 9.7(L) 11.2 - 15.7 g/dL [facility] HCT 28.9(L) 34.1 - 44.9 % [facility] PLT 183 163 - 369 10*3/uL [facility] MPV 10.7 9.4 - 12.4 fL [facility] RBC 3.33(L) 3.93 - 5.22 10*6/uL [facility] MCV 87 79 - 95 fL [facility] MCH 29.1 25.6 - 32.2 pg [facility] MCHC 33.6 32.2 - 36.5 g/dL [facility] RDW 12.5 11.6 - 14.4 % [facility] Absolute Neutrophil Count 6,089 cells/uL [facility] Absolute Seg Count 6,089 1,440 - 6,600 cells/uL [facility] Absolute Lymph Count 2,270 760 - 4,000 cells/uL [facility] Absolute [place] Count 929 160 - 1,200 cells/uL [facility] Absolute Eos Count 929(H) 0 - 300 cells/uL [facility] Absolute Baso Count 103(H) 0 - 100 cells/uL [facility] Segmented Neutrophils 59 36 - 66 % [facility] Lymphocytes 22 19 - 40 % [facility] [place] Monocytes 9 4 - 12 % [facility] Eosinophils 9(H) 0 - 3 % [facility] Basophils 1 0 - 1 % [facility] WBC Estimate High [facility] Platelet [facility]imate Normal [facility] RBC Morphology Normal [facility] Blood 09/06/2021 12:0 1 PM HAT BRIM CURLER Narrative [facility] - 09/06/2021 2:17 PM HAT BRIM CURLER Release to patient->Immediate Srinivasa Lee MD HEMATOLOGY ORDERABLES Final Result Performing Organization Address City/[facility]/ZIP Co de Phone Number [facility] [address] [place] [address], * FOLIC ACID (FOLATE) (09/06/2021 12:01 PM HAT BRIM CURLER) Folate 12.24 >=5.90 ng/mL CANC[facility] TRANSFORMER ASSEMBLY SUPERVISOR [facility] Blood 09/06/2021 12:0 1 PM HAT BRIM CURLER Narrative [facility] TRANSFORM[facility] [employer]SEMBL[employer] SUPER[employer] [facility] - 09/07/2021 2:53 PM HAT BRIM CURLER Release to patient->Immediate Srinivasa Lee MD CHEMISTRY ORDERABLES Final R esult [facility] TRANSFORMER ASSEMBLY SUPERVISOR [facility] [place] [address] [place] [address], [place] [phone] * FERRITIN (09/06/2021 12:01 PM HAT BRIM CURLER) Ferritin 89 11 - 307 ng/mL [facility] Blood 09/06/2021 12:0 1 PM HAT BRIM CURLER Narrative [facility] - 09/07/2021 2:53 PM HAT BRIM CURLER Release to patient->Immediate Srinivasa Lee MD CHEMISTRY ORDERABLES Final R esult Performing Organization Address City/[facility] Co de Phone Number [facility] [place] [address], [place] [phone] * RETICULOCYTE COUNT (RETIC) (09/06/2021 12:01 PM HAT BRIM CURLER) Reticulocyte count 1.23 0.50 - 1.70 % [facility] RET-He 33.70 28.20 - 36.60 pg [facility] Comment: RET-He is a direct assessment of incorporation of iron into erythrocyte hemoglobin. It provides an indirect measure of the iron available for new erythropoiesis over past 2-4 days. Blood 09/06/2021 12:0 1 PM HAT BRIM CURLER Narrative [facility] - 09/06/2021 12:20 PM HAT BRIM CURLER Release to patient->Immediate Srinivasa Lee MD HEMATOLOGY ORDERABLES Final Result [facility] [address] [address], [place] [phone] * (ABNORMAL) IRON W/ IRON BINDING CAPACITY [place] (09/06/2021 12:01 PM HAT BRIM CURLER) IRON 54 50 - 212 ug/dL [facility] UIBC 196 155 - 355 ug/dL [facility] TIBC 250(L) 261 - 478 ug/dl [facility] % Saturation 22 20 - 50 % [facility] 09/06/2021 12:0 1 PM HAT BRIM CURLER Narrative [facility] - 09/06/2021 1:08 PM HAT BRIM CURLER Release to patient->Immediate Srinivasa Lee MD LAB SEND OUTS Final Result Performing Organization Address City/[facility]/ZIP Co de Phone Number [facility] [address] [place] [address], * VITAMIN B12 (09/06/2021 12:01 PM HAT BRIM CURLER) Vitamin B12 348 180 - 914 pg/mL [facility] Blood 09/06/2021 12:0 1 PM HAT BRIM CURLER Narrative [facility] - 09/07/2021 2:53 PM HAT BRIM CURLER Release to patient->Immediate Srinivasa Lee MD CHEMISTRY ORDERABLES Final R esult Performing Organization Address [facility] Co de Phone Number CANCER TRANSFORMER ASSEMBLY SUPERVISOR [facility] [address] [place] [address], [place] [phone] documented in this encounter Visit Diagnoses Diagnosis Anemia of unknown etiology Anemia, unspecified documented in this encounter Additional Health Concerns Assessment Noted Time PHQ-9 Depression Total Score: 0 03/08/20 21 11:06 AM CDT documented as of this encounter Care Teams Pastry Wrapper Relationship Specialty Start Date End Date Jonatan Worley [address] [place] [address] PCP - General Family Medicine 07/12/20 Srinivasa Lee MD [address] [place] [phone] Consulting Physician Oncology 07/12/20 documented as of this encounter
--- OUTSIDE RECORDS SUMMARY | 2024-08-29 03:46 | XMS_ITS | Encounter Summary ---
Author Organization [facility] Address [address] [place] [address] Phone Care Team Providers Care Team Manager Name Role Phone Jonatan Worley Primary Care Provider [phone] Srinivasa Lee MD Unavailable [phone] Encounter Details Date Type Department Care Team (Latest Contact Info) Description 03/08/2021 11:30 AM CDT Lab [facility] [address] [address] Lab, [facility] [place] Hypogammaglobulinemia (HCC); Anemia of unknown etiology [...] on file Legal Sex Female 11:51 AM FINANCIAL SALES ASSISTANT Gender Identity Not on file Sexual Orientation [...] st Contact Info) Description 10/18/2024 1:30 PM FINANCIAL SALES ASSISTANT Office Visit [facility] [address] [address] Srinivasa Lee MD [address] [place], [place] [address] documented as of this encounter Procedures Procedure Name Priority Date/Time Associated Diagnosis Comments IRON W/ IRON BINDING CAPACITY [place] Routine 03/08/2021 11:21 AM CDT Hypogammaglobuline ellen (HCC) Anemia of unknown etiology IMMUNOFIXATION, SERUM OH Routine 03/08/2021 11:21 AM CDT Hypogammaglobuline ellen (HCC) Anemia of unknown etiology FREE KAPPA & LAMBDA LIGHT CHAINS SERUM Routine 03/08/2021 11:21 AM CDT Hypogammaglobuline ellen (HCC) Anemia of unknown etiology VITAMIN B12 Routine 03/08/2021 11:21 AM CDT Hypogammaglobuline ellen (HCC) Anemia of unknown etiology RETICULOCYTE COUNT (RETIC) Routine 03/08/2021 11:21 AM CDT Hypogammaglobuline ellen (HCC) Anemia of unknown etiology LACTATE DEHYDROGENASE (LD) Routine 03/08/2021 11:21 AM CDT Hypogammaglobuline ellen (HCC) Anemia of unknown etiology IMMUNOGLOBULIN IGA, IGG & IGM QUANT Routine 03/08/2021 11:21 AM CDT Hypogammaglobuline ellen (HCC) Anemia of unknown etiology FOLIC ACID (FOLATE) Routine 03/08/2021 1 1:21 AM CDT Hypogammaglobuline ellen (HCC) Anemia of unknown etiology FERRITIN Routine 03/08/2021 11:21 AM CDT Hypogammaglobuline ellen (HCC) Anemia of unknown etiology ELECTROPHORESIS W/ TOTAL PROTEIN SERUM Routine 03/08/2021 11:21 AM CDT Hypogammaglobuline ellen (HCC) Anemia of unknown etiology CMP (COMPREHENSIVE METABOLIC PANEL) Routine 03/08/2021 11:21 AM CDT Hypogammaglobuline ellen (HCC) Anemia of unknown etiology COMPLETE BLOOD COUNT (CBC) WITH DIFF Routine 03/08/2021 11:21 AM CDT Hypogammaglobuline ellen (HCC) Anemia of unknown etiology BETA 2 MICROGLOBULIN Routine 03/08/2021 11:21 AM CDT Hypogammaglobuline ellen (HCC) Anemia of unknown etiology documented in this encounter Results * (ABNORMAL) COMPLETE BLOOD COUNT (CBC) WITH DIFF (03/08/2021 11:21 AM CDT) WBC 7.8 4.0 - 10.0 10*3/uL [facility] HGB 9.3(L) 11.2 - 15.7 g/dL [facility] HCT 28.0(L) 34.1 - 44.9 % [facility] PLT 185 163 - 369 10*3/uL [facility] MPV 10.7 9.4 - 12.4 fL [facility] RBC 3.14(L) 3.93 - 5.22 10*6/uL [facility] MCV 89 79 - 95 fL [facility] MCH 29.6 25.6 - 32.2 pg [facility] MCHC 33.2 32.2 - 36.5 g/dL [facility] RDW 12.7 11.6 - 14.4 % [facility] Absolute Neutrophil Count 5,687 cells/uL [facility] Absolute Seg Count 5,687 1,440 - 6,600 cells/uL [facility] Absolute Lymph Count 1,558 760 - 4,000 cells/uL [facility] Absolute [place] Count 234 160 - 1,200 cells/uL [facility] Absolute Eos Count 312(H) 0 - 300 cells/uL [facility] Segmented Neutrophils 73(H) 36 - 66 % [facility] Lymphocytes 20 19 - 40 % [facility] Monocytes 3(L) 4 - 12 % [facility] Eosinophils 4(H) 0 - 3 % [facility] WBC Estimate Normal [facility] Platelet Estimate Normal [facility] RBC Morphology Normal [facility] Blood 03/08/2021 11:2 1 AM CDT Narrative [facility] - 03/08/2021 3:38 PM CDT Release to patient->Immediate us Srinivasa Lee MD HEMATOLOGY ORDERABLES Final Result [facility] [address] [place] [address], * (ABNORMAL) CMP (COMPREHENSIVE METABOLIC PANEL) (03/08/2021 11:21 AM CDT) Glucose 250(H) 70 - 105 mg/dL [facility] Blood Urea Nitrogen 37(H) 7 - 25 mg/dL [facility] Creatinine 1.6(H) 0.6 - 1.2 mg/dL [facility] Sodium 141 136 - 145 mEq/L [facility] Potassium 5.4(H) 3.5 - 5.1 mEq/L [facility] Chloride 112(H) 98 - 107 mEq/L [facility] Bicarbonate 24 21 - 31 mEq/L [facility] Total Bilirubin 0.3 0.3 - 1.0 mg/dL [facility] Alk. Phosphatase 66 34 - 104 U/L [facility] Aspartate Aminotransferase 17 13 - 39 U/L [facility] Alanine Aminotransferase 14 7 - 52 U/L [facility] Total Protein 4.9(L) 6.4 - 8.9 g/dL [facility] Albumin 2.9(L) 3.5 - 5.7 g/dL [facility] Calcium 8.6 8.6 - 10.3 mg/dL [facility] Anion Gap 10.4 7.0 - 15.0 mEq/L [facility] Globulin 2.0 2.0 - 3.5 g/dL [facility] EGFR (Non ) 33.0(L) >60.0 ml/min [facility] EGFR () 39.9(L) >60.0 ml/min [facility] Blood 03/08/2021 11:2 1 AM CDT [facility] - 03/08/2021 12:56 PM CDT IS THE PATIENT REQUIRED TO BE FASTING FOR 8 HOURS?->No Release to patient->Immediate us Srinivasa Lee MD CHEMISTRY ORDERABLES Final R esult [facility] [place] [address], [place] [phone] * LACTATE DEHYDROGENASE (LD) (03/08/2021 11:21 AM CDT) LDH 176 140 - 271 U/L [facility] Blood 03/08/2021 11:2 1 AM CDT [facility] - 03/08/2021 12:55 PM CDT Release to patient->Immediate us Srinivasa Lee MD CHEMISTRY ORDERABLES Final R esult [facility] [place] [address], [place] [phone] * FOLIC ACID (FOLATE) (03/08/2021 11:21 AM CDT) Folate 14.72 >=5.90 ng/mL [facility]ISTR[facility] Blood 03/08/2021 11:2 1 AM CDT [facility] - 03/09/2021 3:34 PM CDT IS THE PATIENT REQUIRED TO BE FASTING FOR 12 HOURS?->No Release to patient->Immediate us Srinivasa Lee MD CHEMISTRY ORDERABLES Final R esult Performing Organization Address City/[facility]/ZIP Co de Phone Number [facility] UNIX ADMINISTRATOR [facility] [address] [place] [address], [place] [phone] * FERRITIN (03/08/2021 11:21 AM CDT) Ferritin 109 11 - 307 ng/mL [facility] Blood 03/08/2021 11:2 1 AM CDT [facility]MINIST[facility] - 03/09/2021 3:34 PM CDT Release to patient->Immediate Srinivasa Lee MD CHEMISTRY ORDERABLES Final R esult Performing Organization Address [facility] Co de Phone Number [facility] [address] [place] [address], [place] [phone] * RETICULOCYTE COUNT (RETIC) (03/08/2021 11:21 AM CDT) Reticulocyte count 1.11 0.50 - 1.70 % [facility] RET-He 34.60 28.20 - 36.60 pg [facility] Comment: RET-He is a direct assessment of incorporation of iron into erythrocyte hemoglobin. It provides an indirect measure of the iron available for new erythropoiesis over past 2-4 days. Blood 03/08/2021 11:2 1 AM CDT [facility] - 03/08/2021 11:35 AM CDT Release to patient->Immediate Srinivasa Lee MD HEMATOLOGY ORDERABLES Final Result Performing Organization Address City/[facility]/ZIP Co de Phone Number [facility] [address] [address], [place] [phone] * (ABNORMAL) IRON W/ IRON BINDING CAPACITY [place] (03/08/2021 11:21 AM CDT) IRON 70 50 - 212 ug/dL [facility] [place] UIBC 164 155 - 355 ug/dL [facility] TIBC 234(L) 261 - 478 ug/dl [facility] % Saturation 30 20 - 50 % [facility] 03/08/2021 11:2 1 AM CDT [facility] - 03/08/2021 12:55 PM CDT Release to patient->Immediate us Srinivasa Lee MD LAB SEND OUTS Final Result [facility] [address] [address], [place] [phone] * VITAMIN B12 (03/08/2021 11:21 AM CDT) Vitamin B12 384 180 - 914 pg/mL [facility] ADMINISTR[facility] Blood 03/08/2021 11:2 1 AM CDT Narrative [facility] - 03/09/2021 3:34 PM CDT Release to patient->Immediate Srinivasa Lee MD CHEMISTRY ORDERABLES Final R esult Performing Organization Address City/[facility]/ZIP Co de Phone Number [facility] UN[facility] ADMINISTRATOR [facility] [address] [place] [address], [place] [phone] * (ABNORMAL) IMMUNOGLOBULIN IGA, IGG & IGM QUANT (03/08/2021 11:21 AM CDT) IGG 484(L) 635 - 1,741 mg/dL [facility] ADMINIST[facility] IGA 181 66 - 433 mg/dL [facility] ADMINIST[facility] IGM 54 45 - 281 mg/dL [facility] ADMINISTR[facility] Blood 03/08/2021 11:2 1 AM CDT Narrative [facility] - 03/09/2021 2:51 PM CDT Release to patient->Immediate us Srinivasa Lee MD CHEMISTRY ORDERABLES Final R esult [facility]MINIST[facility] [place] [address], * (ABNORMAL) ELECTROPHORESIS W/ TOTAL PROTEIN SERUM (03/08/2021 11:21 AM CDT) PROTEIN, TOTAL, SERUM 5.0(L) 6.0 - 8.5 G/DL [facility] ALBUMIN 2.4(L) 2.9 - 4.4 G/DL [facility] [id number] 0.3 0.0 - 0.4 G/DL [facility] [id number] 0.8 0.4 - 1.0 G/DL [facility] BETA GLOBULIN 0.9 0.7 - 1.3 G/DL [facility] GAMMA GLOBULIN 0.6 0.4 - 1.8 G/DL [facility] M-SPIKE NOT OBSERVED NOT OBSERVED G/DL [facility] GLOBULIN, TOTAL 2.6 2.2 - 3.9 G/DL [facility] A/G RATIO 0.9 0.7 - 1.7 [facility] PLEASE NOTE: [facility] Comment: PROTEIN ELECTROPHORESIS SCAN WILL FOLLOW VIA COMPUTER, MAIL, OR DINING CHAIR SEAT CUSHION TRIMMER DELIVERY. PDF . [facility] Blood 03/08/2021 11:2 1 AM CDT Narrative [facility] - 03/09/2021 3:10 PM CDT TESTING PERFORMED AT: [] [address], [address], PHONE: [phone], BOAT RIDE OPERATOR: PEGGY MARCUS, PHD Release to patient->Immediate Srinivasa Lee MD CHEMISTRY ORDERABLES Final R esult [facility] * IMMUNOFIXATION, SERUM [place] (03/08/2021 11:21 AM CDT) IMMUNOFIXATION RESULT, SERUM COMMENT [facility] Comment:NO MONOCLONALITY DET ECTED. 03/08/2021 11:2 1 AM CDT Narrative [facility] - 03/09/2021 3:10 PM CDT TESTING PERFORMED AT: [[address], [address], PHONE: [phone], BOAT RIDE OPERATOR: PEGGY MARCUS, PHD Release to patient->Immediate Srinivasa Lee MD LAB SEND OUTS Final Result Performing Organization Address [facility] Co de Phone Number [facility] * (ABNORMAL) FREE KAPPA & LAMBDA LIGHT CHAINS SERUM (03/08/2021 11:21 AM CDT) FREE KAPPA LT CHAINS,S 75.2(H) 3.3 - 19.4 MG/L [facility] FREE LAMBDA LT CHAINS,S 50.0(H) 5.7 - 26.3 MG/L [facility] FREE KAPPA/FREE LAMBDA RATIO LT CHAINS 1.50 0.26 - 1.65 [facility] Blood 03/08/2021 11:2 1 AM CDT Narrative [facility] - 03/09/2021 8:13 PM CDT TESTING PERFORMED AT: [] [address], [address], PHONE: [phone], BOAT RIDE OPERATOR: PEGGY MARCUS, PHD Release to patient->Immediate Srinivasa Lee MD CHEMISTRY ORDERABLES Final R esult Performing Organization Address [facility]/ZIP Co de Phone Number [facility] * (ABNORMAL) BETA 2 MICROGLOBULIN (03/08/2021 11:21 AM CDT) [id number] 7.26(H) 0.97 - 1.84 mg/L [facility] UN[facility] ADMINISTRATOR [facility] Blood 03/08/2021 11:2 1 AM CDT Narrative [facility] - 03/09/2021 2:51 PM CDT Release to patient->Immediate us Srinivasa Lee MD CHEMISTRY ORDERABLES Final R esult [facility] [address] [place] [address], documented in this encounter Visit Diagnoses Diagnosis Hypogammaglobulinemia (HCC) Hypogammaglobulinaemia, unspecified Anemia of unknown etiology Anemia, unspecified documented in this encounter Additional Health Concerns Assessment Noted Time PHQ-9 Depression Total Score: 0 03/08/20 21 11:06 AM CDT documented as of this encounter Care Teams Team Manager Relationship Specialty Start Date End Date Jonatan Worley [address] [place] [address] PCP - General Family Medicine 07/12/20 Srinivasa Lee MD [address] [place] [id number] Consulting Physician Oncology 07/12/20 documented as of this encounter
--- OUTSIDE RECORDS SUMMARY | 2024-08-29 03:46 | XMS_ITS | Encounter Summary ---
Author Organization [facility] Address [address] [place] [address] Phone Care Team Providers Care Cooler Servicer Name Role Phone Jonatan Worley Primary Care Provider Srinivasa Lee MD Unavailable Reason for Visit * Reason Comments Follow-up Encounter Details Date Type Department Care Team (Late st Contact Info) Description 03/15/2022 9:30 AM CDT Office Visit [facility] [address] [address] Srinivasa Lee MD [address] [address] Anemia of unknown etiology (Primary Dx) Social History Tobacco Use Types Packs/Day Years [...] on file Legal Sex Female 11:51 AM QA AUDITOR Gender Identity Not on file Sexual Orientation Not on file COVID-19 Exposure Response Date Recorded In the last 10 days, have yo u been in contact with someone who was confirmed or suspected to have Coronavirus/COVID-19? No / Unsure 03/15/2022 9:24 AM CDT documented as of this encounter Last Filed Vital Signs Vital Sign Reading Time Taken Comments Blood Pressure 134/84 03/15/2022 9:44 AM CDT Pulse 66 03/15/2022 9:44 AM CDT Temperature 36.4 ??C (97.5 ??F) 03/15/2022 9:44 AM CD T Respiratory Rate 18 03/15/2022 9:44 AM CDT Oxygen Saturation 98% 03/15/2022 9:44 AM CDT Inhaled Oxygen Concentration - - Weight 92.5 kg (204 lb) 03/15/2022 9:44 AM CDT Height 170.2 cm (5' 7 ) 03/15/2022 9:44 AM CDT Body Mass Index 31.95 03/15/2022 9:44 AM CDT documented in this encounter Progress Notes * Srinivasa Lee MD - 03/15/2022 9:30 AM CDT Images from the original note were not included. Patient: Arely Ernandez Age: 61 y.o. : 1960 Encounter Dept: MED ONC [facility] Encounter Date: 03/15/2022 Care Team: Current Providers PCP: Jonatan Worley Care Team Provider: Srinivasa Lee MD Encounter Provider: Srinivasa Lee MD Referring Provider: Jonatan Worley Consulting Physician: Srinivasa Lee MD HISTORY OF PRESENT ILLNESS: The patient is doing okay clinically. Her hemoglobin is stable right above 10. She has anemia of chronic kidney disease. She is not smoking at all at this point. DIAGNOSIS: Hypogammaglobulinemia and anemia. PAST TREATMENT: Not [...] cancer screening discussed with the patient. PLAN: The patient is clinically okay. We will monitor her count. It seems to be stable. We plan to followup in three months and act accordingly. TIME SPENT: PAST MEDICAL HISTORY, PAST SURGICAL [...] lab results shown below reviewed. Srinivasa Lee MD/jeanine Vitals: Vitals: 03/15/22 0944 BP: 134/84 BP Location: Left Arm BP Position: Sitting BP Cuff Size: Large Pulse: 66 Resp: 18 Temp: 97.5 ??F (36.4 ??C) TempSrc: Temporal SpO2: 98% Weight: 204 lb (92.5 kg) Height: 5' 7 (1.702 m) Body surface area is 2.09 meters squared. Body mass index is 31.95 kg/m??. Pain Score: 0 - No pain [...] Current Medications: Outpatient Encounter Medications as of 03/15/2022 Medication Sig Dispense Refill ??? amLODIPine (NORVASC) [...] 4 TIMES DAILY ??? ergocalciferol (VITAMIN D) 43219 UNIT Capsule TAKE 1 CAPSULE BY MOUTH [...] TABLET BY MOUTH ONCE DAILY ??? [DISCONTINUED] metoprolol tartrate (LOPRESSOR) 25 MG Tablet Take 25 mg by mouth 2 times daily. ??? ofloxacin (OCUFLOX) 0.3 % Solution ??? prednisoLONE acetate (PRED FORTE) 1 % Suspension INSTILL 1 DROP INTO RIGHT EYE TWICE DAILY ??? rosuvastatin (CRESTOR) 5 MG Tablet TAKE 1 TABLET BY MOUTH ONCE DAILY ??? timolol (TIMOPTIC) 0.5 % Solution INSTILL 1 DROP INTO EACH EYE TWICE DAILY No facility-administered encounter medications on file as of 03/15/2022. Labs: Lab on 03/15/2022 Component Date Value Ref Range Status ??? WBC 03/15/2022 8.7 4.0 - 10.0 10*3/uL Final ??? HGB 03/15/2022 10.4 (A) 11.2 - 15.7 g/dL Final ??? HCT 03/15/2022 30.5 (A) 34.1 - 44.9 % Final ??? PLT 03/15/2022 186 163 - 369 10*3/uL Final ??? MPV 03/15/2022 10.9 9.4 - 12.4 fL Final ??? RBC 03/15/2022 3.47 (A) 3.93 - 5.22 10*6/uL Final ??? MCV 03/15/2022 88 79 - 95 fL Final ??? MCH 03/15/2022 30.0 25.6 - 32.2 pg Final ??? MCHC 03/15/2022 34.1 32.2 - 36.5 g/dL Final ??? RDW 03/15/2022 12.6 11.6 - 14.4 % Final documented in this encounter Plan of Treatment Upcoming Encounters Date Type Department Care Team (Late st Contact Info) Description 10/18/2024 1:30 PM QA AUDITOR Office Visit [facility] [address] [address] Srinivasa Lee MD [address] [place] [address] documented as of this encounter Results * FERRITIN (06/14/2022 9:38 AM CDT) Ferritin 67 11 - 307 ng/mL [facility] Blood 06/14/2022 9:38 AM CDT Narrative [facility] 06/14/2022 2:45 PM CDT Release to patient->Immediate Srinivasa Lee MD CHEMISTRY ORDERABLES Final R esult [facility] [address] [place] [address], [place] [phone] * (ABNORMAL) IRON W/ IRON BINDING CAPACITY [place] (06/14/2022 9:38 AM CDT) IRON 62 50 - 212 ug/dL [facility] UIBC 187 155 - 355 ug/dL [facility] TIBC 249(L) 261 - 478 ug/dl [facility] % Saturation 25 20 - 50 % [facility] Blood 06/14/2022 9:38 AM CDT Narrative [facility] - 06/14/2022 11:05 AM CDT Release to patient->Immediate Srinivasa Lee MD LAB SEND OUTS Final Result [facility] [address] [place] [address], [place] [phone] documented in this encounter Visit Diagnoses Diagnosis Anemia of unknown etiology- Primary Anemia, unspecified Anemia of unknown etiology Anemia, unspecified documented in this encounter Additional Health Concerns Assessment Noted Time PHQ-9 Depression Total Score: 0 03/08/20 11:06 AM CDT documented as of this encounter Care Teams Cooler Servicer Relationship Specialty Start Date End Date Jonatan Worley [address] [place] [address] PCP - General Family Medicine 07/12/20 Srinivasa Lee MD [address] [place] [phone] Consulting Physician Oncology 07/12/20 documented as of this encounter
--- OUTSIDE RECORDS SUMMARY | 2024-08-29 03:46 | XMS_ITS | Encounter Summary ---
Author Organization [employer] Care Team Providers Care Trauma Doctor Name Role Phone Jonatan Worley Primary Care Provider [phone] Srinivasa Lee MD Unavailable [phone] Encounter Details Date Type Department Care Team (Latest Contact Info) Description 12/14/2021 Travel Social History Tobacco Use Types Packs/Day Years Used Date Smoking Tobacco: Never Smokeless Tobacco: Never Alcohol Use Standard Drinks/Week Comments Not Currently 0 (1 standard drink = 0.6 oz pur e alcohol) PHQ-2 Answer Date Recorded Total Score - Questions 1-9 0 11/24 Education Answer Date Recorded What is the highest level of school you have completed or the highest degree you have received? 12th grade 07/28/2020 Sexually Active Control Partners Comments Yes Post-menopausal Comments No Sex and Gender Information Value Date Recorded Sex Assigned at Not on file Legal Sex Female 11:51 AM BUILDING RIGGER Gender Identity Not on file Sexual Orientation Not on file COVID-19 Exposure Response Date Recorded In the last 10 days, have yo u been in contact with someone who was confirmed or suspected to have Coronavirus/COVID-19? No / Unsure 12/14/2021 9:25 AM CDT documented as of this encounter Plan of Treatment Upcoming Encounters Date Type Department Care Team (Late st Contact Info) Description 10/18/2024 1:30 PM BUILDING RIGGER Office Visit [facility] [address] [address] Srinivasa Lee MD [facility] [address] [id number] documented as of this encounter Visit Diagnoses Not on filedocumented in this encounter Additional Health Concerns Assessment Noted Time PHQ-9 Depression Total Score: 0 03/08/20 21 11:06 AM CDT documented as of this encounter Care Teams Trauma Doctor Relationship Specialty Start Date End Date Jonatan Worley [address] [facility] [address] PCP - General Family Medicine 07/12/20 Srinivasa Lee MD [address] [place] [address] Consulting Physician Oncology 07/12/20 documented as of this encounter
--- OUTSIDE RECORDS SUMMARY | 2024-08-29 03:46 | XMS_ITS | Encounter Summary ---
Author Organization [facility] Address [address] [place] [address] Phone Care Team Providers Care Mixing Technician Name Role Phone Jonatan Worley Primary Care Provider Srinivasa Lee MD Unavailable Reason for Visit * Reason Comments New Patient Encounter Details Date Type Department Care Team (Late st Contact Info) Description 07/28/2020 11:30 AM PRECISION HONER Office Visit [facility] [address] [address] Srinivasa Lee MD [facility] [address] [address] Anemia of unknown etiology (Primary Dx); Hypogammaglobulinemi a (HCC) Social History Tobacco Use Types Packs/Day [...] on file Legal Sex Female 11:51 AM PRECISION HONER Gender Identity Not on file Sexual Orientation Not on file COVID-19 Exposure Response Date Recorded In the last month, have you been in contact with someone who was confirmed or suspected to have Coronavirus / COVID-19? No / Unsure 07/28/2020 10:59 AM PRECISION HONER documented as of this encounter Last Filed Vital Signs Vital Sign Reading Time Taken Comments Blood Pressure 158/86 07/28/2020 11:44 AM PRECISION HONER Pulse 84 07/28/2020 11:44 AM PRECISION HONER Temperature 36.2 ??C (97.2 ??F) 07/28/2020 11:[address] Respiratory Rate 16 07/28/2020 11:44 AM PRECISION HONER Oxygen Saturation 98% 07/28/2020 11:44 AM PRECISION HONER Inhaled Oxygen Concentration - - Weight 88 kg (194 lb) 07/28/2020 11:44 AM PRECISION HONER Height 170.2 cm (5' 7 ) 07/28/2020 11:44 AM PRECISION HONER Body Mass Index 30.38 07/28/2020 11:44 AM PRECISION HONER documented in this encounter Progress Notes * Srinivasa Lee MD - 07/28/2020 11:30 AM CST Patient: Arely Ernandez Age: 59 y.o. : 1960 Encounter Dept: [facility] Encounter Date: 07/28/2020 Care Team: Current Providers PCP: Jonatan Worley Care Team Provider: Srinivasa Lee MD Encounter Provider: Srinivasa Lee MD Referring Provider: Jonatan Worley Consulting Physician: Srinivasa Lee MD HISTORY OF PRESENT ILLNESS: A very pleasant 59-year-old lady that was recently diagnosed with diabetes. She had extensive workup by Dr. Worley that showed she is anemic with hemoglobin 10.2. That triggered workup. Her iron studies were normal. She also had low albumin and protein so Dr. Worley did serum protein electrophoresis toaddress anemia further and there was no M-spike but there was hypogammaglobulinemia with low overall gammaglobulins. She is denying any weight loss. Denying any fever or chills. Denying any recurrentinfection or hospitalization. She has not had any major cancer screening. She was supposed to get amammogram and never got one. She should. DIAGNOSIS: Hypogammaglobulinemia and anemia. PAST TREATMENT: Not [...] with the patient. PLAN: 1. At this point, we will do B12 and folic acid and rule out hemolysis. Review peripheral smear. 2. Get immunoglobulin level to identify further whether IgG, IgA, or IgM is low. 3. Discussed with her potential age-appropriate cancer screening. She would like to wait on the mammogram for at least a couple of months because of COVID concern. PAST MEDICAL HISTORY, PAST SURGICAL HISTORY, SOCIAL [...] no S3, S4, no murmur, or rub. BREAST: No overlying skin changes. No discharge or nipple retraction noted. ABDOMEN: No hepatosplenomegaly, masses, ascites, areas of tenderness, bruits, or hernias. EXTREMITIES: No clubbing, cyanosis, or edema. LABORATORY/PATHOLOGY/IMAGING NOTES: All lab results shown below reviewed. Srinivasa Lee MD/jeanine Vitals: Vitals: 07/28/20 1144 BP: 158/86 BP Location: Left Arm BP Position: Sitting BP Cuff Size: Regular Pulse: 84 Resp: 16 Temp: 97.2 ??F (36.2 ??C) TempSrc: Temporal SpO2: 98% Weight: 194 lb (88 kg) Height: 5' 7 (1.702 m) Body surface area is 2.04 meters squared. Body mass index is 30.38 kg/m??. Allergies: Allergies Allergen Reactions ??? Penicillins Other [...] 12 ??? Highest education level: 12th grade Social Needs ??? Financial resource strain: Not very hard ??? Food insecurity Worry: Never true Inability: Never true ??? Transportation needs Medical: No Non-medical: No Tobacco Use ??? Smoking status: Never Smoker ??? Smokeless tobacco: Never Used Substance and Sexual Activity ??? Alcohol use: [...] Current Medications: Outpatient Encounter Medications as of 07/28/2020 Medication Sig Dispense Refill ??? amLODIPine (NORVASC) 5 MG Tablet TAKE 1 TABLET BY MOUTH ONCE DAILY ??? aspirin 81 MG Chewable Tablet Take 81 mg by mouth daily. ??? brimonidine (ALPHAGAN) 0.2 % Solution INSTILL 1 DROP INTO EACH EYE TWICE DAILY ??? dorzolamide (TRUSOPT) 2 % Solution INSTILL 1 DROP INTO RIGHT EYE 4 TIMES DAILY ??? ergocalciferol (VITAMIN D) 89646 UNIT Capsule TAKE 1 CAPSULE BY MOUTH ONCE A WEEK ??? glimepiride (AMARYL) 4 MG Tablet TAKE 1 TABLET BY MOUTH ONCE DAILY ??? lisinopril (PRINIVIL, ZESTRIL) 20 MG Tablet TAKE 1 TABLET BY MOUTH ONCE DAILY ??? metFORMIN (GLUCOPHAGE) 500 MG Tablet TAKE 1 TABLET BY MOUTH TWICE DAILY WITH MORNING MEAL AND WITH EVENING MEAL ??? prednisoLONE acetate (PRED FORTE) 1 % Suspension INSTILL 1 DROP INTO RIGHT EYE TWICE DAILY ??? rosuvastatin (CRESTOR) 5 MG Tablet TAKE 1 TABLET BY MOUTH ONCE DAILY ??? timolol (TIMOPTIC) 0.5 % Solution INSTILL 1 DROP INTO EACH EYE TWICE DAILY No facility-administered encounter medications on file as of 07/28/2020. Labs: No visits with results within 7 Day(s) from this visit. Latest known visit with results is: No results found for any previous visit. ISION HONER ISION HONER documented in this encounter Plan of Treatment Upcoming Encounters Date Type Department Care Team (Late st Contact Info) Description 10/18/2024 1:30 PM PRECISION HONER [facility] Visit [facility] [address] [address] Srinivasa Lee MD [facility] [place] [address] documented as of this encounter Results * (ABNORMAL) IMMUNOGLOBULIN IGA, IGG & IGM QUANT (07/28/2020 12:05 PM PRECISION HONER) IGG 627(L) 635 - 1,741 mg/dL [facility] IGA 180 66 - 433 mg/dL [facility] IGM 55 45 - 281 mg/dL [facility] Blood 07/28/2020 12:0 5 PM PRECISION HONER Narrative [facility] - 07/31/2020 1:40 PM PRECISION HONER Release to patient->Immediate us Srinivasa Lee MD CHEMISTRY ORDERABLES Final R esult Performing Organization Address City/[facility]/ZIP Co de Phone Number [facility] [address] [place] [address], [place] [phone] * HAPTOGLOBIN (07/28/2020 12:05 PM PRECISION HONER) HAPTO 85 30 - 200 mg/dL [facility] Blood 07/28/2020 12:0 5 PM PRECISION HONER [facility] - 08/01/2020 1:44 PM PRECISION HONER Release to patient->Immediate Srinivasa Lee MD CHEMISTRY ORDERABLES Final R esult Performing Organization Address [facility]/ZIP Co de Phone Number [facility] [address] [place] [address], [place] [phone] * VITAMIN B12 (07/28/2020 12:05 PM PRECISION HONER) Vitamin B12 345 180 - 914 pg/mL [facility] Blood 07/28/2020 12:0 5 PM PRECISION HONER [facility] - 07/31/2020 2:02 PM PRECISION HONER Release to patient->Immediate Srinivasa Lee MD CHEMISTRY ORDERABLES Final R esult Performing Organization Address [facility]/ZIP Co de Phone Number [facility] [place] [address] [place] [address], [place] [phone] * FOLIC ACID (FOLATE) (07/28/2020 12:05 PM PRECISION HONER) Folate 13.32 >=5.90 ng/mL [facility] Blood 07/28/2020 12:0 5 PM PRECISION HONER [facility] - 07/31/2020 2:02 PM PRECISION HONER IS THE PATIENT REQUIRED TO BE FASTING FOR 12 HOURS?->No Release to patient->Immediate Srinivasa Lee MD CHEMISTRY ORDERABLES Final R esult Performing Organization Address [facility]/ZIP Co de Phone Number [facility] [address], [place] [phone] * RETICULOCYTE COUNT (RETIC) (07/28/2020 12:05 PM PRECISION HONER) Reticulocyte count 1.01 0.50 - 1.70 % [facility] RET-He 33.80 28.20 - 36.60 pg [facility] Comment: RET-He is a direct assessment of incorporation of iron into erythrocyte hemoglobin. It provides an indirect measure of the iron available for new erythropoiesis over past 2-4 days. Blood 07/28/2020 12:0 5 PM PRECISION HONER [facility] - 07/28/2020 12:11 PM PRECISION HONER Release to patient->Immediate Srinivasa Lee MD HEMATOLOGY ORDERABLES Final Result Performing Organization Address [facility] Co de Phone Number [facility] [place] [address], [place] [phone] * LACTATE DEHYDROGENASE (LD) (07/28/2020 12:05 PM PRECISION HONER) LDH 176 140 - 271 U/L [facility] Blood 07/28/2020 12:0 5 PM PRECISION HONER [facility] - 07/28/2020 12:45 PM PRECISION HONER Release to patient->Immediate Srinivasa Lee MD CHEMISTRY ORDERABLES Final R esult Performing Organization Address [facility] Co de Phone Number [facility] Cancer [address] [address], [place] [phone] * (ABNORMAL) COMPLETE BLOOD COUNT (CBC) WITH DIFF (07/28/2020 12:05 PM PRECISION HONER) WBC 8.2 4.0 - 10.0 10*3/uL [facility] HGB 10.7(L) 11.2 - 15.7 g/dL [facility] HCT 31.2(L) 34.1 - 44.9 % [facility] PLT 172 163 - 369 10*3/uL [facility] MPV 10.3 9.4 - 12.4 fL [facility] RBC 3.66(L) 3.93 - 5.22 10*6/uL [facility] MCV 85 79 - 95 fL [facility] MCH 29.2 25.6 - 32.2 pg [facility] MCHC 34.3 32.2 - 36.5 g/dL [facility] RDW 12.4 11.6 - 14.4 % [facility] Absolute Neutrophil Count 5,392 cells/uL [facility] Absolute Seg Count 5,392 1,440 - 6,600 cells/uL [facility] Absolute Lymph Count 1,797 760 - 4,000 cells/uL [facility] Absolute Adams Count 245 160 - 1,200 cells/uL [facility] Absolute Eos Count 735(H) 0 - 300 cells/uL [facility] Segmented Neutrophils 66 36 - 66 % [facility] Lymphocytes 22 19 - 40 % [facility] [place] Monocytes 3(L) 4 - 12 % [facility] Eosinophils 9(H) 0 - 3 % [facility] [place] WBC Estimate Normal [facility] Platelet Estimate Normal [facility] RBC Morphology Normal [facility] Blood 07/28/2020 12:0 5 PM PRECISION HONER Narrative [facility] - 07/28/2020 1:49 PM PRECISION HONER Release to patient->Immediate us Srinivasa Lee MD HEMATOLOGY ORDERABLES Final Result [facility] [address] [place] [address], documented in this encounter Visit Diagnoses Diagnosis Anemia of unknown etiology- Primary Anemia, unspecified Hypogammaglobulinemia (HCC) Hypogammaglobulinaemia, unspecified Anemia of unknown etiology Anemia, unspecified Hypogammaglobulinemia (HCC) Hypogammaglobulinaemia, unspecified documented in this encounter Additional Health Concerns Assessment Noted Time PHQ-9 Depression Total Score: 0 07/28/20 20 11:51 AM PRECISION HONER documented as of this encounter Care Teams Mixing Technician Relationship Specialty Start Date End Date Jonatan Worley [address] [place] [address] PCP - General Family Medicine 07/12/20 Srinivasa Lee MD [address] [place] [address] Consulting Physician Oncology 07/12/20 documented as of this encounter
--- OUTSIDE RECORDS SUMMARY | 2024-08-29 03:46 | XMS_ITS | Encounter Summary ---
Author Organization [facility] Address [address] [place] [address] Phone Care Team Providers Care Gas Brazer Name Role Phone Jonatan Worley Primary Care Provider [phone] Srinivasa Lee MD Unavailable [phone] Reason for Visit * Reason Comments Follow-up Encounter Details Date Type Department Care Team (Latest Contact Info) Description 09/06/2022 9:30 AM WAX BLENDER Office Visit [facility] [address] [address] Srinivasa Lee MD [facility] [address] [address] Hypogammaglobulinemia (HCC) (Primary Dx); Anemia of unknown [...] on file Legal Sex Female 11:51 AM WAX BLENDER Gender Identity Not on file Sexual Orientation Not on file COVID-19 Exposure Response Date Recorded In the last 10 days, have sloane foreman been in contact with someone who was confirmed or suspected to have Coronavirus/COVID-19? No / Unsure 09/06/2022 9:09 AM WAX BLENDER documented as of this encounter Last Filed Vital Signs Vital Sign Reading Time Taken Comments Blood Pressure 158/106 09/06/2022 9:43 AM WAX BLENDER Pulse 69 09/06/2022 9:43 AM WAX BLENDER Temperature 36.7 ??C (98 ??F) 09/06/2022 9:43 AM WAX BLENDER Respiratory Rate 18 09/06/2022 9:43 AM WAX BLENDER Oxygen Saturation 98% 09/06/2022 9:43 AM WAX BLENDER Inhaled Oxygen Concentration - - Weight 95.7 kg (211 lb) 09/06/2022 9:43 AM WAX BLENDER Height 170.2 cm (5' 7 ) 09/06/2022 9:43 AM WAX BLENDER Body Mass Index 33.05 09/06/2022 9:43 AM WAX BLENDER documented in this encounter Progress Notes * Srinivasa Lee MD - 09/06/2022 9:30 AM CST Images from the original note were not included. Patient: Arely Ernandez Age: 61 y.o. : 1960 [facility] En[facility] Date: 09/06/2022 Care Team: Current Providers PCP: Jonatan Worley Care Team Provider: Srinivasa Lee MD Encounter Provider: Srinivasa Lee MD Referring Provider: Jonatan Worley Consulting Physician: Srinivasa Lee MD HISTORY OF PRESENT ILLNESS: The patient remains slightly anemic, mostly anemia of chronic kidney disease but her hemoglobin is above 10 at this point which is an improvement from last time in February. Her kidney function has been getting a little worse. No recurrent infection or hospitalization. DIAGNOSIS: Hypogammaglobulinemia and anemia. PAST TREATMENT: Not [...] discussed with the patient. PLAN: The patient has anemia of chronic kidney disease. Her hemoglobin is above 10 at this point so we will hold on any erythropoietin and she follows closely with Dr. Shook. Continue to follow with Dr. Shook. TIME SPENT: PAST MEDICAL HISTORY, PAST SURGICAL [...] lab results shown below reviewed. Srinivasa Lee MD/kofi Vitals: Vitals: 09/06/22 0943 BP: (!) 158/106 BP Location: Right Arm BP Position: Sitting BP Cuff Size: Regular Pulse: 69 Resp: 18 Temp: 98 ??F (36.7 ??C) TempSrc: Temporal SpO2: 98% Weight: 211 lb (95.7 kg) Height: 5' 7 (1.702 m) Body surface area is 2.13 meters squared. Body mass index is 33.05 kg/m??. Pain Score: 0 - No pain [...] Current Medications: Outpatient Encounter Medications as of 09/06/2022 Medication Sig Dispense Refill ??? amLODIPine (NORVASC) [...] 4 TIMES DAILY ??? ergocalciferol (VITAMIN D) 95007 UNIT Capsule TAKE 1 CAPSULE BY MOUTH [...] 1 DROP INTO RIGHT EYE TWICE DAILY (Patient not taking: Reported on 09/06/2022) ??? rosuvastatin (CRESTOR) 5 MG Tablet TAKE 1 TABLET BY MOUTH ONCE DAILY ??? timolol (TIMOPTIC) 0.5 % Solution INSTILL 1 DROP INTO EACH EYE TWICE DAILY No facility-administered encounter medications on file as of 09/06/2022. Labs: Lab on 09/06/2022 Component Date Value Ref Range Status ??? WBC 09/06/2022 9.7 4.0 - 10.0 10*3/uL Final ??? HGB 09/06/2022 10.1 (A) 11.2 - 15.7 g/dL Final ??? HCT 09/06/2022 29.5 (A) 34.1 - 44.9 % Final ??? PLT 09/06/2022 184 163 - 369 10*3/uL Final ??? MPV 09/06/2022 11.4 9.4 - 12.4 fL Final ??? RBC 09/06/2022 3.35 (A) 3.93 - 5.22 10*6/uL Final ??? MCV 09/06/2022 88 79 - 95 fL Final ??? MCH 09/06/2022 30.1 25.6 - 32.2 pg Final ??? MCHC 09/06/2022 34.2 32.2 - 36.5 g/dL Final ??? RDW 09/06/2022 12.4 11.6 - 14.4 % Final BLENDER BLENDER documented in this encounter Plan of Treatment Upcoming Encounters Date Type Department Care Team (Late st Contact Info) Description 10/18/2024 1:30 PM WAX BLENDER Office Visit [facility] [place] [address] [place] [phone] Srinivasa Lee MD [address] [place] [address] [facility] [address] [place] [address] documented as of this encounter Visit Diagnoses Diagnosis Hypogammaglobulinemia (HCC)- Primary Hypogammaglobulinaemia, unspecified Anemia of unknown etiology Anemia, unspecified documented in this encounter Additional Health Concerns Assessment Noted Time PHQ-9 Depression Total Score: 0 03/08/20 21 11:06 AM CDT documented as of this encounter Care Teams Gas Brazer Relationship Specialty Start Date End Date Jonatan Worley [address] [place] [address] PCP - General Family Medicine 07/12/20 Srinivasa Lee MD [address] [place] [phone] Consulting Physician Oncology 07/12/20 documented as of this encounter
--- OUTSIDE RECORDS SUMMARY | 2024-08-29 03:46 | XMS_ITS | Encounter Summary ---
Author Organization [facility] Address [address] [place] [address] Phone Care Team Providers Care Electroplating Sales Representative Name Role Phone Jonatan Worley Primary Care Provider [phone] Srinivasa Lee MD Unavailable [phone] Reason for Visit * Reason Comments Follow-up Encounter Details Date Type Department Care Team (Latest Contact Info) Description 03/08/2021 11:15 AM CDT Office Visit [facility] [address] [address] Srinivasa Lee MD [address] [facility] [address] [address] Hypogammaglobulinemia (HCC) (Primary Dx); Anemia [...] on file Legal Sex Female 11:51 AM OIL DRILLER Gender Identity Not on file Sexual Orientation Not on file COVID-19 Exposure Response Date Recorded In the last month, have you been in contact with someone who was confirmed or suspected to have Coronavirus / COVID-19? No / Unsure 03/08/2021 10:55 AM CDT documented as of this encounter Last Filed Vital Signs Vital Sign Reading Time Taken Comments Blood Pressure 150/92 03/08/2021 11:02 AM CDT Pulse 88 03/08/2021 11:02 AM CDT Temperature 36.1 ??C (97 ??F) 03/08/2021 11:02 AM CDT Respiratory Rate 18 03/08/2021 11:02 AM CDT Oxygen Saturation 98% 03/08/2021 11:02 AM CDT Inhaled Oxygen Concentration - - Weight 92.3 kg (203 lb 6.4 oz) 03/08/2021 11:02 AM CDT Height 170.2 cm (5' 7 ) 03/08/2021 11:02 AM CDT Body Mass Index 31.86 03/08/2021 11:02 AM CDT documented in this encounter Progress Notes * Srinivasa Lee MD - 03/08/2021 11:15 AM CDT Patient: Arely Ernandez Age: 60 y.o. : 1960 Encounter Dept: [facility] MED [facility] Encounter Date: 03/08/2021 Care Team: Current Providers PCP: Jonatan Worley Care Team Provider: Srinivasa Lee MD Encounter Provider: Srinivasa Lee MD Referring Provider: Jonatan Worley Consulting Physician: Srinivasa Lee MD HISTORY OF PRESENT ILLNESS: The patient is doing okay clinically. No recurrent infection or hospitalization. She has some anemia, likely chronic kidney disease. Her last hemoglobin was between 10 and 10.5. DIAGNOSIS: Hypogammaglobulinemia and anemia. PAST TREATMENT: Not [...] discussed with the patient. PLAN: 1. Repeat immunoglobulin level. 2. Workup for her myeloma. 3. Repeat workup for her anemia. 4. Monitor her periodically and act accordingly. TIME SPENT: PAST MEDICAL [...] below reviewed. Srinivasa Lee MD/kofi Vitals: Vitals: 03/08/21 1102 BP: (!) 150/92 BP Location: Left Arm BP Position: Sitting BP Cuff Size: Regular Pulse: 88 Resp: 18 Temp: 97 ??F (36.1 ??C) TempSrc: Temporal SpO2: 98% Weight: 203 lb 6.4 oz (92.3 kg) Height: 5' 7 (1.702 m) Body surface area is 2.09 meters squared. Body mass index is 31.86 kg/m??. Allergies: Allergies Allergen Reactions ??? Penicillins [...] Current Medications: Outpatient Encounter Medications as of 03/08/2021 Medication Sig Dispense Refill ??? amLODIPine (NORVASC) 5 MG Tablet TAKE 1 TABLET BY MOUTH ONCE DAILY ??? aspirin 81 MG Chewable Tablet Take 81 mg by mouth daily. ??? brimonidine (ALPHAGAN) 0.2 % Solution INSTILL 1 DROP INTO EACH EYE TWICE DAILY ??? dorzolamide (TRUSOPT) 2 % Solution INSTILL 1 DROP INTO RIGHT EYE 4 TIMES DAILY ??? ergocalciferol (VITAMIN D) 88735 UNIT Capsule TAKE 1 CAPSULE BY MOUTH ONCE A WEEK ??? glimepiride (AMARYL) 4 MG Tablet TAKE 1 TABLET BY MOUTH ONCE DAILY ??? irbesartan (AVAPRO) 150 MG Tablet TAKE 1 TABLET BY MOUTH [...] facility-administered encounter medications on file as of 03/08/2021. Labs: No visits with results within 7 Day(s) from this visit. Latest known visit with results is: Lab on 07/28/2020 Component Date Value Ref Range Status ??? IGG 07/28/2020 627* 635 - 1,741 mg/dL Final ??? IGA 07/28/2020 180 66 - 433 mg/dL Final ??? IGM 07/28/2020 55 45 - 281 mg/dL Final ??? HAPTO 07/28/2020 85 30 - 200 mg/dL Final ??? Vitamin B12 07/28/2020 345 180 - 914 pg/mL Final ? ? Folate 07/28/2020 13.32 >=5.90 ng/mL Final ??? Reticulocyte count 07/28/2020 1.01 0.50 - 1.70 % Final ??? RET-He 07/28/2020 33.80 28.20 - 36.60 pg Final Comment: RET-He is a direct assessment of incorporation of iron into erythrocyte hemoglobin. It provides an indirect measure of the iron available for new erythropoiesis over past 2-4 days. ??? LDH 07/28/2020 176 140 - 271 U/L Final ??? WBC 07/28/2020 8.2 4.0 - 10.0 10*3/uL Final ??? HGB 07/28/2020 10.7* 11.2 - 15.7 g/dL Final ??? HCT 07/28/2020 31.2* 34.1 - 44.9 % Final ??? PLT 07/28/2020 172 163 - 369 10*3/uL Final ??? MPV 07/28/2020 10.3 9.4 - 12.4 fL Final ??? RBC 07/28/2020 3.66* 3.93 - 5.22 10*6/uL Final ??? MCV 07/28/2020 85 79 - 95 fL Final ??? MCH 07/28/2020 29.2 25.6 - 32.2 pg Final ??? MCHC 07/28/2020 34.3 32.2 - 36.5 g/dL Final ??? RDW 07/28/2020 12.4 11.6 - 14.4 % Final ??? Absolute Neutrophil Count 07/28/2020 5,392 cells/uL Final ??? Absolute Seg Count 07/28/2020 5,392 1,440 - 6,600 cells/uL Final ??? Absolute Lymph Count 07/28/2020 1,797 760 - 4,000 cells/uL Final ??? Absolute Clare Count 07/28/2020 245 160 - 1,200 cells/uL Final ??? Absolute Eos Count 07/28/2020 735* 0 - 300 cells/uL Final ??? Segmented Neutrophils 07/28/2020 66 36 - 66 % Final ??? Lymphocytes 07/28/2020 22 19 - 40 % Final ??? Monocytes 07/28/2020 3* 4 - 12 % Final ??? Eosinophils 07/28/2020 9* 0 - 3 % Final ??? WBC Estimate 07/28/2020 Normal Final ??? Platelet Estimate 07/28/2020 Normal Final ??? RBC Morphology 07/28/2020 Normal Final documented in this encounter Plan of Treatment Upcoming Encounters Date Type Department Care Team (Late st Contact Info) Description 10/18/2024 1:30 PM OIL DRILLER Office Visit [facility] [address] [phone] Srinivasa Lee MD [address] [place] [address] [place] [address] documented as of this encounter Results * (ABNORMAL) BETA 2 MICROGLOBULIN (03/08/2021 11:21 AM CDT) [id number] 7.26(H) 0.97 - 1.84 mg/L [facility] Blood 03/08/2021 11:2 1 AM CDT Narrative [facility] - 03/09/2021 2:51 PM CDT Release to patient->Immediate us Srinivasa Lee MD CHEMISTRY ORDERABLES Final R esult CANCER PROCESSING TECHNOLOGIST OF [facility] [place] [address], [place] [phone] * (ABNORMAL) FREE KAPPA & LAMBDA LIGHT CHAINS SERUM (03/08/2021 11:21 AM CDT) FREE KAPPA LT CHAINS,S 75.2(H) 3.3 - 19.4 MG/L [facility] FREE LAMBDA LT CHAINS,S 50.0(H) 5.7 - 26.3 MG/L [facility] FREE KAPPA/FREE LAMBDA RATIO LT CHAINS 1.50 0.26 - 1.65 [facility] Blood 03/08/2021 11:2 1 AM CDT Narrative [facility] - 03/09/2021 8:13 PM CDT TESTING PERFORMED AT: [] [facility] [employer] [employer] [address], [address], PHONE: [phone], INTERNET MARKETING ANALYST: PEGGY MARCUS, PHD Release to patient->Immediate Srinivasa Lee MD CHEMISTRY ORDERABLES Final R esult Performing Organization Address City/[facility]/ZIP Co de Phone Number [facility] * IMMUNOFIXATION, SERUM [place] (03/08/2021 11:21 AM CDT) IMMUNOFIXATION RESULT, SERUM COMMENT [facility] Comment:NO MONOCLONALITY DET ECTED. 03/08/2021 11:2 1 AM CDT Narrative [facility] - 03/09/2021 3:10 PM CDT TESTING PERFORMED AT: [] [employer] [facility] [place], [address] [place] [address], [place], [address], PHONE: [phone], INTERNET MARKETING ANALYST: PEGGY MARCUS, PHD Release to patient->Immediate Srinivasa Lee MD LAB SEND OUTS Final Result Performing Organization Address City/[facility]/ZIP Co de Phone Number [facility] * (ABNORMAL) ELECTROPHORESIS W/ TOTAL PROTEIN SERUM (03/08/2021 11:21 AM CDT) PROTEIN, TOTAL, SERUM 5.0(L) 6.0 - 8.5 G/DL [facility] ALBUMIN 2.4(L) 2.9 - 4.4 G/DL [facility] BPERF-1-JLCRLBEU 0.3 0.0 - 0.4 G/DL [facility] YARWM-0-RTAFZBHN 0.8 0.4 - 1.0 G/DL [facility] BETA GLOBULIN 0.9 0.7 - 1.3 G/DL [facility] GAMMA GLOBULIN 0.6 0.4 - 1.8 G/DL [facility] M-SPIKE NOT OBSERVED NOT OBSERVED G/DL [facility] GLOBULIN, TOTAL 2.6 2.2 - 3.9 G/DL [facility] A/G RATIO 0.9 0.7 - 1.7 [facility] PLEASE NOTE: COMMENT [facility] Comment: PROTEIN ELECTROPHORESIS SCAN WILL FOLLOW VIA COMPUTER, MAIL, OR TECHNICAL SOLUTIONS ENGINEER DELIVERY. PDF . [facility] Blood 03/08/2021 11:2 1 AM CDT Narrative [facility] - 03/09/2021 3:10 PM CDT TESTING PERFORMED AT: [] [address], [address], PHONE: [phone], INTERNET MARKETING ANALYST: PEGGY MARCUS, PHD Release to patient->Immediate us Srinivasa Lee MD CHEMISTRY ORDERABLES Final R esult [facility] * (ABNORMAL) IMMUNOGLOBULIN IGA, IGG & IGM QUANT (03/08/2021 11:21 AM CDT) IGG 484(L) 635 - 1,741 mg/dL [facility] IGA 181 66 - 433 mg/dL [facility] PROCESSING TECHNOLOGISTCHI [facility] IGM 54 45 - 281 mg/dL [facility] PROC[facility]ING [facility] Blood 03/08/2021 11:2 1 AM CDT Narrative CANCER PROCESSING TECHNOLOGIST [facility] - 03/09/2021 2:51 PM CDT Release to patient->Immediate Srinivasa Lee MD CHEMISTRY ORDERABLES Final R esult CANCER PROCESSING TECHNOLOGIST [facility] [address] [place] [address], [place] [phone] * VITAMIN B12 (03/08/2021 11:21 AM CDT) Vitamin B12 384 180 - 914 pg/mL CANCER PROCESSING TECHNOLOGIST [facility] Blood 03/08/2021 11:2 1 AM CDT [facility] - 03/09/2021 3:34 PM CDT Release to patient->Immediate Srinivasa Lee MD CHEMISTRY ORDERABLES Final R esult Performing Organization Address [facility] Co de Phone Number CANCER PROCESSING TECHNOLOGIST [facility] [address] [place] [address], [place] [phone] * (ABNORMAL) IRON W/ IRON BINDING CAPACITY [place] (03/08/2021 11:21 AM CDT) IRON 70 50 - 212 ug/dL [facility] UIBC 164 155 - 355 ug/dL [facility] TIBC 234(L) 261 - 478 ug/dl [facility] % Saturation 30 20 - 50 % [facility] 03/08/2021 11:2 1 AM CDT [facility] - 03/08/2021 12:55 PM CDT Release to patient->Immediate us Srinivasa Lee MD LAB SEND OUTS Final Result Performing Organization Address City/[facility]/ZIP Co de Phone Number [facility] [place] [address], [place] [phone] * RETICULOCYTE COUNT (RETIC) (03/08/2021 11:21 AM CDT) Reticulocyte count 1.11 0.50 - 1.70 % [facility] RET-He 34.60 28.20 - 36.60 pg [facility] Comment: RET-He is a direct assessment of incorporation of iron into erythrocyte hemoglobin. It provides an indirect measure of the iron available for new erythropoiesis over past 2-4 days. Blood 03/08/2021 11:2 1 AM CDT [facility] - 03/08/2021 11:35 AM CDT Release to patient->Immediate us Srinivasa Lee MD HEMATOLOGY ORDERABLES Final Result [facility] [place] [address], [place] [phone] * FERRITIN (03/08/2021 11:21 AM CDT) Ferritin 109 11 - 307 ng/mL [facility] Blood 03/08/2021 11:2 1 AM CDT Narrative [facility] - 03/09/2021 3:34 PM CDT Release to patient->Immediate us Srinivasa Lee MD CHEMISTRY ORDERABLES Final R esult CANCER PROCESSING TECHNOLOGIST [facility] [address] [place] [address], [place] [phone] * FOLIC ACID (FOLATE) (03/08/2021 11:21 AM CDT) Folate 14.72 >=5.90 ng/mL [facility] Blood 03/08/2021 11:2 1 AM CDT Narrative [facility] - 03/09/2021 3:34 PM CDT IS THE PATIENT REQUIRED TO BE FASTING FOR 12 HOURS?->No Release to patient->Immediate us Srinivasa Lee MD CHEMISTRY ORDERABLES Final R esult CANCER PROCESSING TECHNOLOGIST [facility] [address] [place] [address], [place] [phone] * LACTATE DEHYDROGENASE (LD) (03/08/2021 11:21 AM CDT) LDH 176 140 - 271 U/L [facility] Blood 03/08/2021 11:2 1 AM CDT Narrative [facility] - 03/08/2021 12:55 PM CDT Release to patient->Immediate Srinivasa Lee MD CHEMISTRY ORDERABLES Final R esult [facility] [address] [place] [address], [place] [phone] * (ABNORMAL) CMP (COMPREHENSIVE METABOLIC PANEL) (03/08/2021 11:21 AM CDT) Glucose 250(H) 70 - 105 mg/dL [facility] Blood Urea Nitrogen 37(H) 7 - 25 mg/dL [facility] Creatinine 1.6(H) 0.6 - 1.2 mg/dL [facility] Sodium 141 136 - 145 mEq/L [facility] Potassium 5.4(H) 3.5 - 5.1 mEq/L [facility] Chloride 112(H) 98 - 107 mEq/L [facility] Bicarbonate 24 21 - 31 mEq/L [facility] Total Bilirubin 0.3 0.3 - 1.0 mg/dL [facility] Alk. Phosphatase 66 34 - 104 U/L [facility] Aspartate Aminotransferase 17 13 - 39 U/L [facility] Alanine Aminotransferase 14 7 - 52 U/L [facility] Total Protein 4.9(L) 6.4 - 8.9 g/dL [facility] Albumin 2.9(L) 3.5 - 5.7 g/dL [facility] Calcium 8.6 8.6 - 10.3 mg/dL [facility] Anion Gap 10.4 7.0 - 15.0 mEq/L [facility] Globulin 2.0 2.0 - 3.5 g/dL [facility] EGFR (Non ) 33.0(L) >60.0 ml/min [facility] EGFR () 39.9(L) >60.0 ml/min [facility] Blood 03/08/2021 11:2 1 AM CDT Narrative [facility] - 03/08/2021 12:56 PM CDT IS THE PATIENT REQUIRED TO BE FASTING FOR 8 HOURS?->No Release to patient->Immediate us Srinivasa Lee MD CHEMISTRY ORDERABLES Final R esult [facility] [address] [place] [address], * (ABNORMAL) COMPLETE BLOOD COUNT (CBC) WITH DIFF (03/08/2021 11:21 AM CDT) WBC 7.8 4.0 - 10.0 10*3/uL [facility] HGB 9.3(L) 11.2 - 15.7 g/dL [facility] HCT 28.0(L) 34.1 - 44.9 % [facility] PLT 185 163 - 369 10*3/uL [facility] MPV 10.7 9.4 - 12.4 fL [facility] RBC 3.14(L) 3.93 - 5.22 10*6/uL [facility] MCV 89 79 - 95 fL [facility] MCH 29.6 25.6 - 32.2 pg [facility] MCHC 33.2 32.2 - 36.5 g/dL [facility] RDW 12.7 11.6 - 14.4 % [facility] Absolute Neutrophil Count 5,687 cells/uL [facility] Absolute Seg Count 5,687 1,440 - 6,600 cells/uL [facility] Absolute Lymph Count 1,558 760 - 4,000 cells/uL [facility] Absolute Clare Count 234 160 - 1,200 cells/uL [facility] Absolute Eos Count 312(H) 0 - 300 cells/uL [facility] Segmented Neutrophils 73(H) 36 - 66 % [facility] Lymphocytes 20 19 - 40 % [facility] Monocytes 3(L) 4 - 12 % [facility] Eosinophils 4(H) 0 - 3 % [facility] WBC Estimate Normal [facility] Platelet Estimate Normal [facility] RBC Morphology Normal [facility] Blood 03/08/2021 11:2 1 AM CDT Narrative [facility] - 03/08/2021 3:38 PM CDT Release to patient->Immediate Srinivasa Lee MD HEMATOLOGY ORDERABLES Final Result [facility] [address] [place], [place] [address] [phone] documented in this encounter Visit Diagnoses Diagnosis Hypogammaglobulinemia (HCC)- Primary Hypogammaglobulinaemia, unspecified Anemia of unknown etiology Anemia, unspecified Hypogammaglobulinemia (HCC) Hypogammaglobulinaemia, unspecified Anemia of unknown etiology Anemia, unspecified documented in this encounter Additional Health Concerns Assessment Noted Time PHQ-9 Depression Total Score: 0 03/08/20 21 11:06 AM CDT documented as of this encounter Care Teams Electroplating Sales Representative Relationship Specialty Start Date End Date Jonatan Worley [address] [place] [address] PCP - General Family Medicine 07/12/20 Srinivasa Lee MD [address] [place] [address] Consulting Physician Oncology 07/12/20 documented as of this encounter
--- OUTSIDE RECORDS SUMMARY | 2024-08-29 03:46 | XMS_ITS | Encounter Summary ---
Author Organization [employer] Care Team Providers Care Mixing Machine Feeder Name Role Phone Jonatan Worley Primary Care Provider [phone] Srinivasa Lee MD Unavailable [phone] Encounter Details Date Type Department Care Team (Latest Contact Info) Description 03/15/2022 Travel Social History Tobacco Use Types Packs/Day [...] on file Legal Sex Female 11:51 AM CHIEF PROJECTIONIST Gender Identity Not on file Sexual Orientation [...] st Contact Info) Description 10/18/2024 1:30 PM CHIEF PROJECTIONIST Office Visit [facility] [address] [address] Srinivasa Lee MD [facility] [place] [address] [address] documented as of this encounter Visit Diagnoses Not on filedocumented in this encounter Additional Health Concerns Assessment Noted Time PHQ-9 Depression Total Score: 0 03/08/20 21 11:06 AM CDT documented as of this encounter Care Teams Mixing Machine Feeder Relationship Specialty Start Date End Date Jonatan Worley [address] [place] [address] PCP - General Family Medicine 07/12/20 Srinivasa Lee MD [address] [place] [address] Consulting Physician Oncology 07/12/20 documented as of this encounter
--- OUTSIDE RECORDS SUMMARY | 2024-08-29 03:46 | XMS_ITS | Encounter Summary ---
Author Organization [employer] Care Team Providers Care Charter Boat Captain Name Role Phone Meir Jonatan Primary Care Provider [phone] Srinivasa Lee MD Unavailable [phone] Encounter Details Date Type Department Care Team (Latest Contact Info) Description 12/06/2022 Travel Social History Tobacco Use Types Packs/Day [...] on file Legal Sex Female 11:51 AM SUPERVISOR POWDER AND PRIMER CANNING Gender Identity Not on file Sexual Orientation [...] st Contact Info) Description 10/18/2024 1:30 PM SUPERVISOR POWDER AND PRIMER CANNING Office Visit [facility] [place] [address] [place] [phone] Srinivasa Lee MD [address] [facility] [address] [place] [address] documented as of this encounter Visit Diagnoses Not on filedocumented in this encounter Additional Health Concerns Assessment Noted Time PHQ-9 Depression Total Score: 0 03/08/20 21 11:06 AM CDT documented as of this encounter Care Teams Charter Boat Captain Relationship Specialty Start Date End Date Jonatan Worley [address] [place] [address] PCP - General Family Medicine 07/12/20 Srinivasa Lee MD [address] [place] [phone] Consulting Physician Oncology 07/12/20 documented as of this encounter
--- OUTSIDE RECORDS SUMMARY | 2024-08-29 03:46 | XMS_ITS | Encounter Summary ---
Author Organization [facility] Address [address] [place] [address] Phone Care Team Providers Care Lettuce Trimmer Name Role Phone Jonatan Worley Primary Care Provider [phone] Srinivasa Lee MD Unavailable Reason for Visit * Reason Comments Follow-up Encounter Details Date Type Department Care Team (Late st Contact Info) Description 09/08/2020 11:15 AM TEST BORER HELPER Office Visit [facility] [address] [address] Srinivasa Lee MD [address] [facility] [address] [address] Anemia of unknown etiology (Primary [...] on file Legal Sex Female 11:51 AM TEST BORER HELPER Gender Identity Not on file Sexual Orientation Not on file COVID-19 Exposure Response Date Recorded In the last month, have you been in contact with someone who was confirmed or suspected to have Coronavirus / COVID-19? No / Unsure 09/08/2020 11:10 AM TEST BORER HELPER documented as of this encounter Last Filed Vital Signs Vital Sign Reading Time Taken Comments Blood Pressure 138/84 09/08/2020 11:23 AM TEST BORER HELPER Pulse 86 09/08/2020 11:23 AM TEST BORER HELPER Temperature 36.5 ??C (97.7 ??F) 09/08/2020 11:[address] Respiratory Rate 16 09/08/2020 11:23 AM TEST BORER HELPER Oxygen Saturation 98% 09/08/2020 11:23 AM TEST BORER HELPER Inhaled Oxygen Concentration - - Weight 88.2 kg (194 lb 8 oz) 09/08/2020 11:23 AM TEST BORER HELPER Height 170.2 cm (5' 7 ) 09/08/2020 11:23 AM TEST BORER HELPER Body Mass Index 30.46 09/08/2020 11:23 AM TEST BORER HELPER documented in this encounter Progress Notes * Srinivasa Lee MD - 09/08/2020 11:15 AM CST Patient: Arely Ernandez Age: 59 y.o. : 1960 [facility] Encounter Date: 09/08/2020 Care Team: Current Providers PCP: Jonatan Worley Care Team Provider: Srinivasa Lee MD Encounter Provider: Srinivasa Lee MD Referring Provider: Jonatan Worley Consulting Physician: Srinivasa Lee MD HISTORY OF PRESENT ILLNESS: The patient had extensive workup for anemia. It did not show any major abnormality, likely anemia of chronic disease and mild chronic kidney disease but her hemoglobin improved to 10.7, not severely declined. Also, her IgG level was a little low at 697. DIAGNOSIS: Hypogammaglobulinemia and anemia. PAST TREATMENT: Not [...] cancer screening discussed with the patient. PLAN: Etiology of anemia is likely anemia of chronic disease/chronic kidney disease. It is not getting any worse at this point. I will hold on any bone marrow aspiration and biopsy as it would not change the management for now. Regarding her immunoglobulin level, it is low but she does not need any criteria for IVIg infusion. We plan to repeat all of these labs in three months and act accordingly. Meanwhile, she will follow up with her primary care physician. TIME SPENT: PAST MEDICAL HISTORY, PAST SURGICAL [...] below reviewed. Srinivasa Lee MD/kofi Vitals: Vitals: 09/08/20 1123 BP: 138/84 BP Location: Left Arm BP Position: Sitting BP Cuff Size: Regular Pulse: 86 Resp: 16 Temp: 97.7 ??F (36.5 ??C) TempSrc: Temporal SpO2: 98% Weight: 194 lb 8 oz (88.2 kg) Height: 5' 7 (1.702 m) Body surface area is 2.04 meters squared. Body mass index is 30.46 kg/m??. Allergies: Allergies Allergen Reactions ??? Penicillins [...] Current Medications: Outpatient Encounter Medications as of 09/08/2020 Medication Sig Dispense Refill ??? amLODIPine (NORVASC) 5 MG Tablet TAKE 1 TABLET BY MOUTH ONCE DAILY ??? aspirin 81 MG Chewable Tablet Take 81 mg by mouth daily. ??? brimonidine (ALPHAGAN) 0.2 % Solution INSTILL 1 DROP INTO EACH EYE TWICE DAILY ??? dorzolamide (TRUSOPT) 2 % Solution INSTILL 1 DROP INTO RIGHT EYE 4 TIMES DAILY ??? ergocalciferol (VITAMIN D) 91936 UNIT Capsule TAKE 1 CAPSULE BY MOUTH ONCE A WEEK ??? glimepiride (AMARYL) 4 MG Tablet TAKE 1 TABLET BY MOUTH ONCE DAILY ??? irbesartan (AVAPRO) 150 MG Tablet TAKE 1 TABLET BY MOUTH ONCE DAILY ??? [DISCONTINUED] lisinopril (PRINIVIL, ZESTRIL) 20 MG Tablet TAKE [...] facility-administered encounter medications on file as of 09/08/2020. Labs: No visits with results within 7 [...] 760 - 4,000 cells/uL Final ??? Absolute [place] Count 07/28/2020 245 160 - 1,200 cells/uL [...] Final ??? RBC Morphology 07/28/2020 Normal Final BORER HELPER BORER HELPER documented in this encounter Plan of Treatment Upcoming Encounters Date Type Department Care Team (Late st Contact Info) Description 10/18/2024 1:30 PM TEST BORER HELPER Office Visit [facility] [address] [address] Srinivasa Lee MD [address] [place] [address] [place] [address] documented as of this encounter Visit Diagnoses Diagnosis Anemia of unknown etiology- Primary Anemia, unspecified documented in this encounter Additional Health Concerns Assessment Noted Time PHQ-9 Depression Total Score: 0 09/08/19 21 11:26 AM TEST BORER HELPER documented as of this encounter Care Teams Lettuce Trimmer Relationship Specialty Start Date End Date Worley Jonatan [address] [place] [address] PCP - General Family Medicine 07/12/20 Srinivasa Lee MD [address] [place] [address] Consulting Physician Oncology 07/12/20 documented as of this encounter
--- OUTSIDE RECORDS SUMMARY | 2024-08-29 03:46 | XMS_ITS | Encounter Summary ---
Author Organization [facility] Address [address] [place] [address] Phone Care Team Providers Care Adult Basic Education Teacher Name Role Phone Jonatan Worley Primary Care Provider Srinivasa Lee MD Unavailable [phone] Reason for Visit * Reason Comments Follow-up Encounter Details Date Type Department Care Team (Late st Contact Info) Description 09/06/2021 11:15 AM CARE MANAGER CNA Office Visit [facility] [address] [address] Srinivasa Lee MD [address] [facility] [address] [address] Anemia of unknown etiology (Primary [...] on file Legal Sex Female 11:51 AM CARE MANAGER CNA Gender Identity Not on file Sexual Orientation Not on file COVID-19 Exposure Response Date Recorded In the last month, have you been in contact with someone who was confirmed or suspected to have Coronavirus / COVID-19? No / Unsure 09/06/2021 11:11 AM CARE MANAGER CNA documented as of this encounter Last Filed Vital Signs Vital Sign Reading Time Taken Comments Blood Pressure 140/88 09/06/2021 11:34 AM CARE MANAGER CNA Pulse 72 09/06/2021 11:34 AM CARE MANAGER CNA Temperature - - Respiratory Rate - - Oxygen Saturation 97% 09/06/2021 11:34 AM CARE MANAGER CNA Inhaled Oxygen Concentration - - Weight 89 kg (196 lb 4.8 oz) 09/06/2021 11:34 AM CARE MANAGER CNA Height 170.2 cm (5' 7 ) 09/06/2021 11:34 AM CARE MANAGER CNA Body Mass Index 30.74 09/06/2021 11:34 AM CARE MANAGER CNA documented in this encounter Progress Notes * Srinivasa Lee MD - 09/06/2021 11:15 AM CST Images from the original note were not included. Patient: Arely Ernandez Age: 60 y.o. : 1960 [facility] Encounter Date: 09/06/2021 Care Team: Current Providers PCP: Jonatan Worley Care Team Provider: Srinivasa Lee MD Encounter Provider: Srinivasa Lee MD Referring Provider: Jonatan Worley Consulting Physician: Srinivasa Lee MD HISTORY OF PRESENT ILLNESS: Ms. Ernandez is doing okay clinically. Her hemoglobin is fluctuating between 9 and 10.3. Most recently, it was 9.9 in May mostly due to underlying chronic disease and chronic kidney disease. It is not getting significantly worse and not transfusion dependent at this point. It is fluctuating overall. Her myeloma workup has been negative. DIAGNOSIS: Hypogammaglobulinemia and anemia. PAST TREATMENT: Not [...] cancer screening discussed with the patient. PLAN: Her anemia is multifactorial including anemia of chronic disease, medication, and chronic kidney disease. We will not start erythropoietin unless she becomes significantly low or transfusion dependent. If her hemoglobin continues to drop since it was 9.3 last time in February but improved to 9.9 in May, it is reasonable to repeat it now with iron studies and act accordingly. TIME SPENT: PAST MEDICAL [...] lab results shown below reviewed. Srinivasa Lee MD/lmr Vitals: Vitals: 09/06/21 1134 BP: 140/88 BP Location: Left Arm BP Position: Sitting BP Cuff Size: Regular Pulse: 72 SpO2: 97% Weight: 196 lb 4.8 oz (89 kg) Height: 5' 7 (1.702 m) Body surface area is 2.05 meters squared. Body mass index is 30.74 kg/m??. Pain Score: 0 - No pain [...] Current Medications: Outpatient Encounter Medications as of 09/06/2021 Medication Sig Dispense Refill ??? amLODIPine (NORVASC) [...] 4 TIMES DAILY ??? ergocalciferol (VITAMIN D) 76015 UNIT Capsule TAKE 1 CAPSULE BY MOUTH ONCE A WEEK ??? glimepiride (AMARYL) 4 MG Tablet TAKE 1 TABLET BY MOUTH ONCE DAILY ??? [DISCONTINUED] irbesartan (AVAPRO) 150 MG Tablet TAKE 1 TABLET BY MOUTH ONCE DAILY ??? ketorolac, ophth, (ACULAR) 0.5 % Solution ??? [DISCONTINUED] metFORMIN (GLUCOPHAGE) 500 MG Tablet TAKE 1 TABLET BY MOUTH TWICE DAILY WITH MORNING MEAL AND WITH EVENING MEAL ??? metoprolol Succinate (TOPROL-XL) 50 MG TABLET SR 24 HR Take 50 mg by mouth. ??? ofloxacin (OCUFLOX) 0.3 % Solution ??? prednisoLONE acetate (PRED FORTE) 1 % Suspension INSTILL 1 DROP INTO RIGHT EYE TWICE DAILY ??? rosuvastatin (CRESTOR) 5 MG Tablet TAKE 1 TABLET BY MOUTH ONCE DAILY ??? timolol (TIMOPTIC) 0.5 % Solution INSTILL 1 DROP INTO EACH EYE TWICE DAILY No facility-administered encounter medications on file as of 09/06/2021. Labs: No visits with results within 7 Day(s) from this visit. Latest known visit with results is: Lab on 03/08/2021 Component Date Value Ref Range Status ??? [id number] 03/08/2021 7.26* 0.97 - 1.84 mg/L Final ??? FREE KAPPA LT CHAINS,S 03/08/2021 75.2* 3.3 - 19.4 MG/L Final ??? FREE LAMBDA LT CHAINS,S 03/08/2021 50.0* 5.7 - 26.3 MG/L Final ??? FREE KAPPA/FREE LAMBDA RATIO LT CH* 03/08/2021 1.50 0.26 - 1.65 Final ??? IMMUNOFIXATION RESULT, SERUM 03/08/2021 COMMENT Final NO MONOCLONALITY DETECTED. ??? PROTEIN, TOTAL, SERUM 03/08/2021 5.0* 6.0 - 8.5 G/DL Final ??? ALBUMIN 03/08/2021 2.4* 2.9 - 4.4 G/DL Final ??? [id number] 03/08/2021 0.3 0.0 - 0.4 G/DL Final ??? [id number] 03/08/2021 0.8 0.4 - 1.0 G/DL Final ??? BETA GLOBULIN 03/08/2021 0.9 0.7 - 1.3 G/DL Final ??? GAMMA GLOBULIN 03/08/2021 0.6 0.4 - 1.8 G/DL Final ??? M-SPIKE 03/08/2021 NOT OBSERVED NOT OBSERVED G/DL Final ??? GLOBULIN, TOTAL 03/08/2021 2.6 2.2 - 3.9 G/DL Final ??? A/G RATIO 03/08/2021 0.9 0.7 - 1.7 Final ??? PLEASE NOTE: 03/08/2021 COMMENT Final Comment: PROTEIN ELECTROPHORESIS SCAN WILL FOLLOW VIA COMPUTER, MAIL, OR EMERGENCY MEDICINE DELIVERY. ??? PDF 03/08/2021 . Final ??? IGG 03/08/2021 484* 635 - 1,741 mg/dL Final ??? IGA 03/08/2021 181 66 - 433 mg/dL Final ??? IGM 03/08/2021 54 45 - 281 mg/dL Final ??? Vitamin B12 03/08/2021 384 180 - 914 pg/mL Final ??? IRON 03/08/2021 70 50 - 212 ug/dL Final ??? UIBC 03/08/2021 164 155 - 355 ug/dL Final ??? TIBC 03/08/2021 234* 261 - 478 ug/dl Final ??? % Saturation 03/08/2021 30 20 - 50 % Final ??? Reticulocyte count 03/08/2021 1.11 0.50 - 1.70 % Final ??? RET-He 03/08/2021 34.60 28.20 - 36.60 pg Final Comment: RET-He is a direct assessment of incorporation of iron into erythrocyte hemoglobin. It provides an indirect measure of the iron available for new erythropoiesis over past 2-4 days. ??? Ferritin 03/08/2021 109 11 - 307 ng/mL Final ? ? Folate 03/08/2021 14.72 >=5.90 ng/mL Final ??? LDH 03/08/2021 176 140 - 271 U/L Final ??? Glucose 03/08/2021 250* 70 - 105 mg/dL Final ??? Blood Urea Nitrogen 03/08/2021 37* 7 - 25 mg/dL Final ??? Creatinine 03/08/2021 1.6* 0.6 - 1.2 mg/dL Final ??? Sodium 03/08/2021 141 136 - 145 mEq/L Final ??? Potassium 03/08/2021 5.4* 3.5 - 5.1 mEq/L Final ??? Chloride 03/08/2021 112* 98 - 107 mEq/L Final ??? Bicarbonate 03/08/2021 24 21 - 31 mEq/L Final ??? Total Bilirubin 03/08/2021 0.3 0.3 - 1.0 mg/dL Final ??? Alk. Phosphatase 03/08/2021 66 34 - 104 U/L Final ??? Aspartate Aminotransferase 03/08/2021 17 13 - 39 U/L Final ??? Alanine Aminotransferase 03/08/2021 14 7 - 52 U/L Final ??? Total Protein 03/08/2021 4.9* 6.4 - 8.9 g/dL Final ??? Albumin 03/08/2021 2.9* 3.5 - 5.7 g/dL Final ??? Calcium 03/08/2021 8.6 8.6 - 10.3 mg/dL Final ??? Anion Gap 03/08/2021 10.4 7.0 - 15.0 mEq/L Final ??? Globulin 03/08/2021 2.0 2.0 - 3.5 g/dL Final ? ? EGFR (Non ) 03/08/2021 33.0* >60.0 ml/min Final ? ? EGFR () 03/08/2021 39.9* >60.0 ml/min Final ??? WBC 03/08/2021 7.8 4.0 - 10.0 10*3/uL Final ??? HGB 03/08/2021 9.3* 11.2 - 15.7 g/dL Final ??? HCT 03/08/2021 28.0* 34.1 - 44.9 % Final ??? PLT 03/08/2021 185 163 - 369 10*3/uL Final ??? MPV 03/08/2021 10.7 9.4 - 12.4 fL Final ??? RBC 03/08/2021 3.14* 3.93 - 5.22 10*6/uL Final ??? MCV 03/08/2021 89 79 - 95 fL Final ??? MCH 03/08/2021 29.6 25.6 - 32.2 pg Final ??? MCHC 03/08/2021 33.2 32.2 - 36.5 g/dL Final ??? RDW 03/08/2021 12.7 11.6 - 14.4 % Final ??? Absolute Neutrophil Count 03/08/2021 5,687 cells/uL Final ??? Absolute Seg Count 03/08/2021 5,687 1,440 - 6,600 cells/uL Final ??? Absolute Lymph Count 03/08/2021 1,558 760 - 4,000 cells/uL Final ??? Absolute [place] Count 03/08/2021 234 160 - 1,200 cells/uL Final ??? Absolute Eos Count 03/08/2021 312* 0 - 300 cells/uL Final ??? Segmented Neutrophils 03/08/2021 73* 36 - 66 % Final ??? Lymphocytes 03/08/2021 20 19 - 40 % Final ??? Monocytes 03/08/2021 3* 4 - 12 % Final ??? Eosinophils 03/08/2021 4* 0 - 3 % Final ??? WBC Estimate 03/08/2021 Normal Final ??? Platelet Estimate 03/08/2021 Normal Final ??? RBC Morphology 03/08/2021 Normal Final MANAGER CNA MANAGER CNA documented in this encounter Plan of Treatment Upcoming Encounters Date Type Department Care Team (Late st Contact Info) Description 10/18/2024 1:30 PM CARE MANAGER CNA [facility] [address] [address] Srinivasa Lee MD [address] [place] [address] [place] [address] documented as of this encounter Results * VITAMIN B12 (09/06/2021 12:01 PM CARE MANAGER CNA) Vitamin B12 348 180 - 914 pg/mL [facility] Blood 09/06/2021 12:0 1 PM CARE MANAGER CNA Narrative [facility] - 09/07/2021 2:53 PM CARE MANAGER CNA Release to patient->Immediate us Srinivasa Lee MD CHEMISTRY ORDERABLES Final R esult Performing Organization Address City/State/[facility] Co de Phone Number [facility] [address] [place] [address], [place] [phone] * (ABNORMAL) IRON W/ IRON BINDING [place] (09/06/2021 12:01 PM CARE MANAGER CNA) IRON 54 50 - 212 ug/dL [facility] UIBC 196 155 - 355 ug/dL [facility] TIBC 250(L) 261 - 478 ug/dl [facility] % Saturation 22 20 - 50 % [facility] 09/06/2021 12:0 1 PM CARE MANAGER CNA Narrative [facility] - 09/06/2021 1:08 PM CARE MANAGER CNA Release to patient->Immediate us Srinivasa Lee MD LAB SEND OUTS Final Result Performing Organization Address [facility] Co de Phone Number [facility] Cancer Care [address] [address], [place] [phone] * RETICULOCYTE COUNT (RETIC) (09/06/2021 12:01 PM CARE MANAGER CNA) [facility] Reticulocyte count 1.23 0.50 - 1.70 % [facility] RET-He 33.70 28.20 - 36.60 [address] [facility] Comment: RET-He is a direct assessment of incorporation of iron into erythrocyte hemoglobin. It provides an indirect measure of the iron available for new erythropoiesis over past 2-4 days. Blood 09/06/2021 12:0 1 PM CARE MANAGER CNA [facility] - 09/06/2021 12:20 PM CARE MANAGER CNA Release to patient->Immediate us Srinivasa Lee MD HEMATOLOGY ORDERABLES Final Result Performing Organization Address [facility] Co de Phone Number [facility] Cancer Care [address] [address], [place] [phone] * FERRITIN (09/06/2021 12:01 PM CARE MANAGER CNA) Ferritin 89 11 - 307 ng/mL [facility] Blood 09/06/2021 12:0 1 PM CARE MANAGER CNA Narrative [facility] - 09/07/2021 2:53 PM CARE MANAGER CNA Release to patient->Immediate Srinivasa Lee MD CHEMISTRY ORDERABLES Final R esult Performing Organization Address [facility] Co de Phone Number [facility] [place] [address], [place] [phone] * FOLIC ACID (FOLATE) (09/06/2021 12:01 PM CARE MANAGER CNA) Folate 12.24 >=5.90 ng/mL [facility] Blood 09/06/2021 12:0 1 PM CARE MANAGER CNA Narrative [facility] - 09/07/2021 2:53 PM CARE MANAGER CNA Release to patient->Immediate Sriinvasa Lee MD CHEMISTRY ORDERABLES Final R esult Performing Organization Address [facility] de Phone Number [facility] [place] [address], [place] [phone] * (ABNORMAL) COMPLETE BLOOD COUNT (CBC) WITH DIFF (09/06/2021 12:01 PM CARE MANAGER CNA) WBC 10.3(H) 4.0 - 10.0 10*3/uL [facility] HGB 9.7(L) 11.2 - 15.7 g/dL [facility] HCT 28.9(L) 34.1 - 44.9 % [facility] PLT 183 163 - 369 10*3/uL [facility] MPV 10.7 9.4 - 12.4 fL [facility] RBC 3.33(L) 3.93 - 5.22 10*6/uL [facility] MCV 87 79 - 95 fL [facility] MCH 29.1 25.6 - 32.2 [address] [facility] MCHC 33.6 32.2 - 36.5 g/dL [facility] RDW 12.5 11.6 - 14.4 % [facility] Absolute Neutrophil Count 6,089 cells/uL [facility] Absolute Seg Count 6,089 1,440 - 6,600 cells/uL [facility] Absolute Lymph Count 2,270 760 - 4,000 cells/uL [facility] Absolute [place] Count 929 160 - 1,200 cells/uL [facility] Absolute Eos Count 929(H) 0 - 300 cells/uL [facility] Absolute Baso Count 103(H) 0 - 100 cells/uL [facility] Segmented Neutrophils 59 36 - 66 % [facility] Lymphocytes 22 19 - 40 % [facility] Monocytes 9 4 - 12 % [facility] Eosinophils 9(H) 0 - 3 % [facility] Basophils 1 0 - 1 % [facility] WBC Estimate High [facility] Platelet Estimate Normal [facility] RBC Morphology Normal [facility] Blood 09/06/2021 12:0 1 PM CARE MANAGER CNA Narrative [facility] - 09/06/2021 2:17 PM CARE MANAGER CNA Release to patient->Immediate Srinivasa Lee MD HEMATOLOGY ORDERABLES Final Result [facility] [address] [place] [address], documented in this encounter Visit Diagnoses Diagnosis Anemia of unknown etiology- Primary Anemia, unspecified Anemia of unknown etiology Anemia, unspecified documented in this encounter Additional Health Concerns Assessment Noted Time PHQ-9 Depression Total Score: 0 03/08/20 21 11:06 AM CDT documented as of this encounter Care Teams Adult Basic Education Teacher Relationship Specialty Start Date End Date Jonatan Worley [address] [place] [address] PCP - General Family Medicine 07/12/20 Srinivasa Lee MD [address] [place] [address] Consulting Physician Oncology 07/12/20 documented as of this encounter
--- OUTSIDE RECORDS SUMMARY | 2024-08-29 03:46 | XMS_ITS | Encounter Summary ---
Author Organization [facility] Address [address] [place] [address] Phone Care Team Providers Care Senior Ux Developer Name Role Phone Jonatan Worley Primary Care Provider Srinivasa Lee MD Unavailable [phone] Encounter Details Date Type Department Care Team (Late Contact Info) Description 07/28/2020 12:30 PM CARE TAKER Lab [facility] [address] [phone] Lab, [facility] Anemia of unknown etiology; Hypogammaglobulinemia (HCC) Social [...] file Legal Sex Female 11:51 AM CARE TAKER Gender Identity Not on file Sexual Orientation Not on file COVID-19 Exposure Response Date Recorded In the last month, have you been in contact with someone who was confirmed or suspected to have Coronavirus / COVID-19? No / Unsure 07/28/2020 10:59 AM CARE TAKER documented as of this encounter Plan of Treatment Upcoming Encounters Date Type Department Care Team (Late st Contact Info) Description 10/18/2024 1:30 PM CARE TAKER Office Visit [facility] [address] [place] [address] Srinivasa Lee MD [address] [place] [address] documented as of this encounter Procedures Procedure Name Priority Date/Time Associated Diagnosis Comments VITAMIN B12 Routine 07/28/2020 12:05 PM CARE TAKER Anemia of unknown etiology Hypogammaglobuline ellen (HCC) RETICULOCYTE COUNT (RETIC) Routine 07/28/2020 12:05 PM CARE TAKER Anemia of unknown etiology Hypogammaglobuline ellen (HCC) LACTATE DEHYDROGENASE (LD) Routine 07/28/2020 12:05 PM CARE TAKER Anemia of unknown etiology Hypogammaglobuline ellen (HCC) IMMUNOGLOBULIN IGA, IGG & IGM QUANT Routine 07/28/2020 12:05 PM CARE TAKER Anemia of unknown etiology Hypogammaglobuline ellen (HCC) HAPTOGLOBIN Routine 07/28/2020 12:05 PM CARE TAKER Anemia of unknown etiology Hypogammaglobuline ellen (HCC) FOLIC ACID (FOLATE) Routine 07/28/2020 1 2:05 PM CARE TAKER Anemia of unknown etiology Hypogammaglobuline ellen (HCC) COMPLETE BLOOD COUNT (CBC) WITH DIFF Routine 07/28/2020 12:05 PM CARE TAKER Anemia of unknown etiology Hypogammaglobuline ellen (HCC) documented in this encounter Results * (ABNORMAL) COMPLETE BLOOD COUNT (CBC) WITH DIFF (07/28/2020 12:05 PM CARE TAKER) WBC 8.2 4.0 - 10.0 10*3/uL [facility] HGB 10.7(L) 11.2 - 15.7 g/dL [facility] HCT 31.2(L) 34.1 - 44.9 % [facility] PLT 172 163 - 369 10*3/uL [facility] MPV 10.3 9.4 - 12.4 fL [facility] RBC 3.66(L) 3.93 - 5.22 10*6/uL [facility] MCV 85 79 - 95 fL [facility] MCH 29.2 25.6 - 32.2 [address] [facility] MCHC 34.3 32.2 - 36.5 g/dL [facility] RDW 12.4 11.6 - 14.4 % [facility] Absolute Neutrophil Count 5,392 cells/uL [facility] Absolute Seg Count 5,392 1,440 - 6,600 cells/uL [facility] Absolute Lymph Count 1,797 760 - 4,000 cells/uL [facility] Absolute Piatt Count 245 160 - 1,200 cells/uL [facility] Absolute Eos Count 735(H) 0 - 300 cells/uL [facility] Segmented Neutrophils 66 36 - 66 % [facility] Lymphocytes 22 19 - 40 % [facility] Monocytes 3(L) 4 - 12 % [facility] Eosinophils 9(H) 0 - 3 % [facility] WBC Estimate Normal [facility] Platelet Estimate Normal [facility] RBC Morphology Normal [facility] Blood 07/28/2020 12:0 5 PM CARE TAKER Narrative [facility] - 07/28/2020 1:49 PM CARE TAKER Release to patient->Immediate Srinivasa Lee MD HEMATOLOGY ORDERABLES Final Result [facility] [address] [place] [address], * LACTATE DEHYDROGENASE (LD) (07/28/2020 12:05 PM CARE TAKER) LDH 176 140 - 271 U/L [facility] Blood 07/28/2020 12:0 5 PM CARE TAKER Narrative [facility] - 07/28/2020 12:45 PM CARE TAKER Release to patient->Immediate Srinivasa Lee MD CHEMISTRY ORDERABLES Final R esult Performing Organization Address [facility] Co de Phone Number [facility] [address] [place] [address], [place] [phone] * RETICULOCYTE COUNT (RETIC) (07/28/2020 12:05 PM CARE TAKER) Reticulocyte count 1.01 0.50 - 1.70 % [facility] RET-He 33.80 28.20 - 36.60 pg [facility] Comment: RET-He is a direct assessment of incorporation of iron into erythrocyte hemoglobin. It provides an indirect measure of the iron available for new erythropoiesis over past 2-4 days. Blood 07/28/2020 12:0 5 PM CARE TAKER [facility] - 07/28/2020 12:11 PM CARE TAKER Release to patient->Immediate Srinivasa Lee MD HEMATOLOGY ORDERABLES Final Result Performing Organization Address [facility] Co de Phone Number [facility] Cancer [facility] [address] [place] [address], [place] [phone] * FOLIC ACID (FOLATE) (07/28/2020 12:05 PM CARE TAKER) Folate 13.32 >=5.90 ng/mL [facility] Blood 07/28/2020 12:0 5 PM CARE TAKER [facility] - 07/31/2020 2:02 PM CARE TAKER IS THE PATIENT REQUIRED TO BE FASTING FOR 12 HOURS?->No Release to patient->Immediate Srinivasa Lee MD CHEMISTRY ORDERABLES Final R esult Performing Organization Address City/[facility] Co de Phone Number [facility] [address] [place] [address], [place] [phone] * VITAMIN B12 (07/28/2020 12:05 PM CARE TAKER) Vitamin B12 345 180 - 914 pg/mL [facility] Blood 07/28/2020 12:0 5 PM CARE TAKER Narrative [facility] - 07/31/2020 2:02 PM CARE TAKER Release to patient->Immediate Srinivasa Lee MD CHEMISTRY ORDERABLES Final R esult Performing Organization Address City/[facility]/ZIP Co de Phone Number [facility] [place] [address] [place] [address], [place] [phone] * HAPTOGLOBIN (07/28/2020 12:05 PM CARE TAKER) HAPTO 85 30 - 200 mg/dL [facility] Blood 07/28/2020 12:0 5 PM CARE TAKER Narrative [facility] - 08/01/2020 1:44 PM CARE TAKER Release to patient->Immediate us Srinivasa Lee MD CHEMISTRY ORDERABLES Final R esult Performing Organization Address [facility]/ZIP Co de Phone Number [facility] [place] [address] [place] [address], [place] [phone] * (ABNORMAL) IMMUNOGLOBULIN IGA, IGG & IGM QUANT (07/28/2020 12:05 PM CARE TAKER) IGG 627(L) 635 - 1,741 mg/dL [facility] IGA 180 66 - 433 mg/dL [facility] IGM 55 45 - 281 mg/dL [facility] Blood 07/28/2020 12:0 5 PM CARE TAKER Narrative [facility] - 07/31/2020 1:40 PM CARE TAKER Release to patient->Immediate us Srinivasa Lee MD CHEMISTRY ORDERABLES Final R esult Performing Organization Address City/[facility]/ZIP Co de Phone Number [facility] [place] [address] [address] [place], [place] [address] [phone] documented in this encounter Visit Diagnoses Diagnosis Anemia of unknown etiology Anemia, unspecified Hypogammaglobulinemia (HCC) Hypogammaglobulinaemia, unspecified documented in this encounter Additional Health Concerns Assessment Noted Time PHQ-9 Depression Total Score: 0 07/28/20 20 11:51 AM CARE TAKER documented as of this encounter Care Teams Senior Ux Developer Relationship Specialty Start Date End Date Meir Jonatan [address] [place] [address] PCP - General Family Medicine 07/12/20 Srinivasa Lee MD [address] [place] [phone] Consulting Physician Oncology 07/12/20 documented as of this encounter
--- OUTSIDE RECORDS SUMMARY | 2024-08-29 03:46 | XMS_ITS | Encounter Summary ---
Author Organization [facility] Address [address] [place] [address] Phone Care Team Providers Care Insurance Adjustor Name Role Phone Jonatan Worley Primary Care Provider Srinivasa Lee MD Unavailable [phone] Encounter Details Date Type Department Care Team (Late st Contact Info) Description 12/07/2021 Telephone [facility] [address] [place] [address] Srinivasa Lee MD [facility] [address] [address] Social History Tobacco Use Types [...] on file Legal Sex Female 11:51 AM MACHINE FEATHEREDGER AND REDUCER Gender Identity Not on file Sexual Orientation Not on file documented as of this encounter Miscellaneous Notes * Telephone Encounter - Glory Veliz - 12/07/2021 1:35 PM CDT Patient called and rescheduled the 12/06 OV. New appt is on 12/14 documented in this encounter Plan of Treatment Upcoming Encounters Date Type Department Care Team (Late st Contact Info) Description 10/18/2024 1:30 PM MACHINE FEATHEREDGER AND REDUCER Office Visit [facility] [address] [place] [phone] Srinivasa Lee MD [address] [place] [address] documented as of this encounter Visit Diagnoses Not on filedocumented in this encounter Additional Health Concerns Assessment Noted Time PHQ-9 Depression Total Score: 0 03/08/20 21 11:06 AM CDT documented as of this encounter Care Teams Insurance Adjustor Relationship Specialty Start Date End Date Jonatan Worley [address] [place] [address] PCP - General Family Medicine 07/12/20 Srinivasa Lee MD [address] [place] [phone] Consulting Physician Oncology 07/12/20 documented as of this encounter
--- OUTSIDE RECORDS SUMMARY | 2024-08-29 03:46 | XMS_ITS | Encounter Summary ---
Author Organization [facility] Address [address] [place] [address] Phone Care Team Providers Care Rf Technician Name Role Phone Jonatan Worley Primary Care Provider [phone] Srinivasa Lee MD Unavailable [phone] Reason for Visit * Reason Comments Follow-up Encounter Details Date Type Department Care Team (Latest Contact Info) Description 12/14/2021 9:30 AM CDT Office Visit [facility] [address] [address] Buzz Sales, RICCI Hypogammaglobulinemia (HCC) [...] on file Legal Sex Female 11:51 AM TEAROOM HOSTESS Gender Identity Not on file Sexual Orientation Not on file COVID-19 Exposure Response Date Recorded In the last 10 days, have yo u been in contact with someone who was confirmed or suspected to have Coronavirus/COVID-19? No / Unsure 12/14/2021 9:25 AM CDT documented as of this encounter Last Filed Vital Signs Vital Sign Reading Time Taken Comments Blood Pressure 142/84 12/14/2021 9:27 AM CDT Pulse 76 12/14/2021 9:27 AM CDT Temperature 36 ??C (96.8 ??F) 12/14/2021 9:27 AM CDT Respiratory Rate 18 12/14/2021 9:27 AM CDT Oxygen Saturation 99% 12/14/2021 9:27 AM CDT Inhaled Oxygen Concentration - - Weight 93.9 kg (207 lb) 12/14/2021 9:27 AM CDT Height 170.2 cm (5' 7 ) 12/14/2021 9:27 AM CDT Body Mass Index 32.42 12/14/2021 9:27 AM CDT documented in this encounter Progress Notes * Buzz Sales PAC - 12/14/2021 9:30 AM CDT Images from the original note were not included. Patient: Arely Ernandez Age: 60 y.o. : 1960 Encounter [facility] Encounter Date: 12/14/2021 Care Team: Current Providers PCP: Jonatan Worley Care Team Provider: Srinivasa Lee MD Encounter Provider: Buzz Sales PAC Referring Provider: Jonatan Worley Physician Pastry Supervisor: Buzz Sales PAC HISTORY OF PRESENT ILLNESS: The patient presents to the office today for a followup visit. Denies worsening tiredness or fatigue. No headache, lightheadedness, dizziness, chest pain or discomfort, abdominal pain or discomfort, pain or swelling in the lower extremities, constipation, or diarrhea. History of chronic kidney disease. Followed by nephrology. No CP. No SOB. No changes to her bowels. No history of screening colonoscopy. DIAGNOSIS: Hypogammaglobulinemia and anemia. PAST TREATMENT: Not [...] with the patient. PLAN: 1. Repeat labs CBC, CMP, B12, iron studies, folate, and immunoglobulins. 2. Give erythropoietin as indicated. 3. Recommended screening colonoscopy. Also informed patient of Cologard in lieu of screening colonoscopy. Defer to PCP. 4. RTC [address] Lee was present in the office. TIME SPENT: PAST [...] results shown below reviewed. MD Buzz Arriola PA-C/chemo Vitals: Vitals: 12/14/21 0927 BP: 142/84 BP Location: Left Arm BP Position: Sitting BP Cuff Size: Large Pulse: 76 Resp: 18 Temp: 96.8 ??F (36 ??C) TempSrc: Temporal SpO2: 99% Weight: 207 lb (93.9 kg) Height: 5' 7 (1.702 m) Body surface area is 2.11 meters squared. Body mass index is 32.42 kg/m??. Pain Score: 0 - No pain [...] Current Medications: Outpatient Encounter Medications as of 12/14/2021 Medication Sig Dispense Refill ??? [DISCONTINUED] amLODIPine (NORVASC) 10 MG Tablet TAKE 1 TABLET BY MOUTH ONCE DAILY ??? [DISCONTINUED] amLODIPine (NORVASC) 5 MG Tablet TAKE 1 [...] 4 TIMES DAILY ??? ergocalciferol (VITAMIN D) 31766 UNIT Capsule TAKE 1 CAPSULE BY MOUTH ONCE A WEEK ??? glimepiride (AMARYL) 4 MG Tablet TAKE 1 TABLET BY MOUTH ONCE DAILY ??? ketorolac, ophth, (ACULAR) 0.5 % Solution ??? [DISCONTINUED] metoprolol Succinate (TOPROL-XL) 50 MG TABLET SR 24 HR Take 50 mg by mouth. ??? metoprolol tartrate (LOPRESSOR) 25 MG Tablet Take [...] facility-administered encounter medications on file as of 12/14/2021. Labs: No visits with results within 7 Day(s) from this visit. Latest known visit with results is: Lab on 09/06/2021 Component Date Value Ref Range Status ??? Vitamin B12 09/06/2021 348 180 - 914 pg/mL Final ??? IRON 09/06/2021 54 50 - 212 ug/dL Final ??? UIBC 09/06/2021 196 155 - 355 ug/dL Final ??? TIBC 09/06/2021 250 (A) 261 - 478 ug/dl Final ??? % Saturation 09/06/2021 22 20 - 50 % Final ??? Reticulocyte count 09/06/2021 1.23 0.50 - 1.70 % Final ??? RET-He 09/06/2021 33.70 28.20 - 36.60 pg Final Comment: RET-He is a direct assessment of incorporation of iron into erythrocyte hemoglobin. It provides an indirect measure of the iron available for new erythropoiesis over past 2-4 days. ??? Ferritin 09/06/2021 89 11 - 307 ng/mL Final ? ? Folate 09/06/2021 12.24 >=5.90 ng/mL Final ??? WBC 09/06/2021 10.3 (A) 4.0 - 10.0 10*3/uL Final ??? HGB 09/06/2021 9.7 (A) 11.2 - 15.7 g/dL Final ??? HCT 09/06/2021 28.9 (A) 34.1 - 44.9 % Final ??? PLT 09/06/2021 183 163 - 369 10*3/uL Final ??? MPV 09/06/2021 10.7 9.4 - 12.4 fL Final ??? RBC 09/06/2021 3.33 (A) 3.93 - 5.22 10*6/uL Final ??? MCV 09/06/2021 87 79 - 95 fL Final ??? MCH 09/06/2021 29.1 25.6 - 32.2 pg Final ??? MCHC 09/06/2021 33.6 32.2 - 36.5 g/dL Final ??? RDW 09/06/2021 12.5 11.6 - 14.4 % Final ??? Absolute Neutrophil Count 09/06/2021 6,089 cells/uL Final ??? Absolute Seg Count 09/06/2021 6,089 1,440 - 6,600 cells/uL Final ??? Absolute Lymph Count 09/06/2021 2,270 760 - 4,000 cells/uL Final ??? Absolute Hernando Count 09/06/2021 929 160 - 1,200 cells/uL Final ??? Absolute Eos Count 09/06/2021 929 (A) 0 - 300 cells/uL Final ??? Absolute Baso Count 09/06/2021 103 (A) 0 - 100 cells/uL Final ??? Segmented Neutrophils 09/06/2021 59 36 - 66 % Final ??? Lymphocytes 09/06/2021 22 19 - 40 % Final ??? Monocytes 09/06/2021 9 4 - 12 % Final ??? Eosinophils 09/06/2021 9 (A) 0 - 3 % Final ??? Basophils 09/06/2021 1 0 - 1 % Final ??? WBC Estimate 09/06/2021 High Final ??? Platelet Estimate 09/06/2021 Normal Final ??? RBC Morphology 09/06/2021 Normal Final Cosigned by Srinivasa Lee MD at 12/20/2021 10:47 AM CDT documented in this encounter Plan of Treatment Upcoming Encounters Date Type Department Care Team (Late st Contact Info) Description 10/18/2024 1:30 PM TEAROOM HOSTESS Office Visit [facility] [address] [place] [phone] Srinivasa Lee MD [facility] [address] [place] [address] documented as of this encounter Results * FOLIC ACID (FOLATE) (03/15/2022 9:34 AM CDT) Folate 16.97 >=5.90 ng/mL [facility] Blood 03/15/2022 9:34 AM CDT Narrative [facility] - 03/15/2022 2:16 PM CDT IS THE PATIENT REQUIRED TO BE FASTING FOR 12 HOURS?->No Release to patient->Immediate Buzz Sales PAC CHEMISTRY ORDERABLES Final Result [facility] [address] [place] [address], [place] [phone] * VITAMIN B12 (03/15/2022 9:34 AM CDT) Vitamin B12 319 180 - 914 pg/mL [facility] Blood 03/15/2022 9:34 AM CDT Narrative [facility] - 03/15/2022 2:16 PM CDT Release to patient->Immediate Buzz Sales PAC CHEMISTRY ORDERABLES Final Result [facility] [address] [place] [address], [place] [phone] * FERRITIN (03/15/2022 9:34 AM CDT) Ferritin 64 11 - 307 ng/mL [facility] Blood 03/15/2022 9:34 AM CDT Azalia [facility] - 03/15/2022 2:16 PM CDT Release to patient->Immediate Buzz Sales PAC CHEMISTRY ORDERABLES Final Result Performing Organization Address City/[facility]/ZIP Co de Phone Number [facility] [address] [place] [address], [place] [phone] * (ABNORMAL) IRON W/ IRON BINDING CAPACITY [place] (03/15/2022 9:34 AM CDT) IRON 54 50 - 212 ug/dL [facility] UIBC 197 155 - 355 ug/dL [facility] TIBC 251(L) 261 - 478 ug/dl [facility] % Saturation 22 20 - 50 % [facility] Blood 03/15/2022 9:34 AM CDT [facility] - 03/15/2022 10:46 AM CDT Release to patient->Immediate Buzz Sales PAC LAB SEND OUTS Final Resu lt Performing Organization Address City/[facility]/ZIP Co de Phone Number [facility] [address] [place] [address], [place] [phone] * (ABNORMAL) CMP (COMPREHENSIVE METABOLIC PANEL) (03/15/2022 9:34 AM CDT) Glucose 176(H) 70 - 105 mg/dL [facility] Blood Urea Nitrogen 44(H) 7 - 25 mg/dL [facility] Creatinine 2.6(H) 0.6 - 1.2 mg/dL [facility] Sodium 138 136 - 145 mEq/L [facility] Potassium 4.7 3.5 - 5.1 mEq/L [facility] Chloride 109(H) 98 - 107 mEq/L [facility] Bicarbonate 22 21 - 31 mEq/L [facility] Total Bilirubin 0.3 0.3 - 1.0 mg/dL [facility] Alk. Phosphatase 69 34 - 104 U/L [facility] Aspartate Aminotransferase 15 13 - 39 U/L [facility] Alanine Aminotransferase 11 7 - 52 U/L [facility] Total Protein 5.1(L) 6.4 - 8.9 g/dL [facility] Albumin 3.2(L) 3.5 - 5.7 g/dL [facility] Calcium 8.7 8.6 - 10.3 mg/dL [facility] Anion Gap 11.7 7.0 - 15.0 mEq/L [facility] Globulin 1.9(L) 2.0 - 3.5 g/dL [facility] EGFR 20(L) >60 ml/min/1. 73m2 [facility] Comment: This eGFR is calculated using 2020 CKD-EPI Creatinine equation without race modifier based on the NKF-ASN task force recommendations Blood 03/15/2022 9:34 AM CDT Narrative [facility] - 03/15/2022 10:46 AM CDT IS THE PATIENT REQUIRED TO BE FASTING FOR 8 HOURS?->No Release to patient->Immediate Buzz Sales PAC CHEMISTRY ORDERABLES Final Result [facility] [address] [phone], * (ABNORMAL) COMPLETE BLOOD COUNT (CBC) WITH DIFF (03/15/2022 9:34 AM CDT) WBC 8.7 4.0 - 10.0 10*3/uL [facility] HGB 10.4(L) 11.2 - 15.7 g/dL [facility] HCT 30.5(L) 34.1 - 44.9 % [facility] PLT 186 163 - 369 10*3/uL [facility] MPV 10.9 9.4 - 12.4 fL [facility] RBC 3.47(L) 3.93 - 5.22 10*6/uL [facility] MCV 88 79 - 95 fL [facility] MCH 30.0 25.6 - 32.2 pg [facility] MCHC 34.1 32.2 - 36.5 g/dL [facility] RDW 12.6 11.6 - 14.4 % [facility] Absolute Neutrophil Count 4,982 cells/uL [facility] Absolute Seg Count 4,982 1,440 - 6,600 cells/uL [facility] Absolute Lymph Count 1,923 760 - 4,000 cells/uL [facility] Absolute Hernando Count 1,049 160 - 1,200 cells/uL [facility] Absolute Eos Count 699(H) 0 - 300 cells/uL [facility] Absolute Baso Count 87 0 - 100 cells/uL [facility] Segmented Neutrophils 57 36 - 66 % [facility] Lymphocytes 22 19 - 40 % [facility] Monocytes 12 4 - 12 % [facility] Eosinophils 8(H) 0 - 3 % [facility] Basophils 1 0 - 1 % [facility] WBC Estimate Normal [facility] Platelet Estimate Normal [facility] RBC Morphology Normal [facility] Blood 03/15/2022 9:34 AM CDT Narrative [facility] - 03/15/2022 11:41 AM CDT Release to patient->Immediate Buzz Sales PAC HEMATOLOGY ORDERABLES Kym l Result [facility] [address] [place] [address], * IMMUNOGLOBULIN IGA, IGG & IGM QUANT (12/14/2021 9:45 AM CDT) IGG 659 635 - 1,741 mg/dL [facility] IGA 204 66 - 433 mg/dL [facility] IGM 64 45 - 281 mg/dL [facility] Blood 12/14/2021 9:45 AM CDT [facility] - 12/17/2021 2:18 PM CDT Release to patient->Immediate Buzz Sales PAC CHEMISTRY ORDERABLES Final Result Performing Organization Address [facility]/ZIP Co de Phone Number [facility] [address] [place] [address], * FOLIC ACID (FOLATE) (12/14/2021 9:45 AM CDT) Folate 12.52 >=5.90 ng/mL [facility] Blood 12/14/2021 9:45 AM CDT [facility] - 12/17/2021 3:24 PM CDT IS THE PATIENT REQUIRED TO BE FASTING FOR 12 HOURS?->No Release to patient->Immediate Buzz [place] PAC CHEMISTRY ORDERABLES Final Result Performing Organization Address [facility] Co de Phone Number [facility] [address] [place] [address], * VITAMIN B12 (12/14/2021 9:45 AM CDT) Vitamin B12 360 180 - 914 pg/mL [facility] Blood 12/14/2021 9:45 AM CDT [facility] - 12/17/2021 3:24 PM CDT IS THE PATIENT REQUIRED TO BE FASTING FOR 12 HOURS?->No Release to patient->Immediate Buzz Sales PAC CHEMISTRY ORDERABLES Final Result Performing Organization Address City/[facility]/ZIP Co de Phone Number [facility] [address] [place] [address], [place] [phone] * FERRITIN (12/14/2021 9:45 AM CDT) Ferritin 81 11 - 307 ng/mL [facility] Blood 12/14/2021 9:45 AM CDT Azalia [facility] - 12/17/2021 3:24 PM CDT IS THE PATIENT REQUIRED TO BE FASTING FOR 12 HOURS?->No Release to patient->Immediate Buzz Sales PAC CHEMISTRY ORDERABLES Final Result Performing Organization Address City/[facility]/ZIP Co de Phone Number [facility] [address] [place] [address], [place] [phone] * (ABNORMAL) IRON W/ IRON BINDING CAPACITY [place] (12/14/2021 9:45 AM CDT) IRON 62 50 - 212 ug/dL [facility] UIBC 188 155 - 355 ug/dL [facility] TIBC 250(L) 261 - 478 ug/dl [facility] % Saturation 25 20 - 50 % [facility] Blood 12/14/2021 9:45 AM CDT [facility] - 12/14/2021 10:38 AM CDT Release to patient->Immediate Buzz Sales PAC LAB SEND OUTS Final Resu lt Performing Organization Address City/[facility]/ZIP Co de Phone Number [facility] [address] [place] [address], [place] [phone] * (ABNORMAL) CMP (COMPREHENSIVE METABOLIC PANEL) (12/14/2021 9:45 AM CDT) Glucose 199(H) 70 - 105 mg/dL [facility] Blood Urea Nitrogen 35(H) 7 - 25 mg/dL [facility] Creatinine 2.0(H) 0.6 - 1.2 mg/dL [facility] Sodium 139 136 - 145 mEq/L [facility] Potassium 5.3(H) 3.5 - 5.1 mEq/L [facility] Chloride 111(H) 98 - 107 mEq/L [facility] Bicarbonate 22 21 - 31 mEq/L [facility] Total Bilirubin 0.4 0.3 - 1.0 mg/dL [facility] Alk. Phosphatase 81 34 - 104 U/L [facility] Aspartate Aminotransferase 15 13 - 39 U/L [facility] Alanine Aminotransferase 12 7 - 52 U/L [facility] Total Protein 5.3(L) 6.4 - 8.9 g/dL [facility] Albumin 3.2(L) 3.5 - 5.7 g/dL [facility] Calcium 8.6 8.6 - 10.3 mg/dL [facility] Anion Gap 11.3 7.0 - 15.0 mEq/L [facility] Globulin 2.1 2.0 - 3.5 g/dL [facility] EGFR 28(L) >60 ml/min/1. 73m2 [facility] Comment: This eGFR is calculated using 2020 CKD-EPI Creatinine equation without race modifier based on the NKF-ASN task force recommendations Blood 12/14/2021 9:45 AM CDT Narrative [facility] - 12/14/2021 10:38 AM CDT Release to patient->Immediate Buzz Sales PAC CHEMISTRY ORDERABLES Final Result [facility] [address] [phone], * (ABNORMAL) COMPLETE BLOOD COUNT (CBC) WITH DIFF (12/14/2021 9:45 AM CDT) WBC 8.3 4.0 - 10.0 10*3/uL [facility] HGB 10.5(L) 11.2 - 15.7 g/dL [facility] HCT 31.9(L) 34.1 - 44.9 % [facility] PLT 201 163 - 369 10*3/uL [facility] MPV 10.8 9.4 - 12.4 fL [facility] RBC 3.66(L) 3.93 - 5.22 10*6/uL [facility] MCV 87 79 - 95 fL [facility] MCH 28.7 25.6 - 32.2 pg [facility] MCHC 32.9 32.2 - 36.5 g/dL [facility] RDW 13.0 11.6 - 14.4 % [facility] Absolute Neutrophil Count 5,491 cells/uL [facility] Absolute Seg Count 5,491 1,440 - 6,600 cells/uL [facility] Absolute Lymph Count 1,498 760 - 4,000 cells/uL [facility] Absolute [place] Count 582 160 - 1,200 cells/uL [facility] Absolute Eos Count 666(H) 0 - 300 cells/uL [facility] Absolute Baso Count 83 0 - 100 cells/uL [facility] Segmented Neutrophils 66 36 - 66 % [facility] Lymphocytes 18(L) 19 - 40 % [facility] Monocytes 7 4 - 12 % [facility] Eosinophils 8(H) 0 - 3 % [facility] Basophils 1 0 - 1 % [facility] WBC Estimate Normal [facility] Platelet Estimate Normal [facility] RBC Morphology Normal [facility] Blood 12/14/2021 9:45 AM CDT Narrative [facility] - 12/14/2021 11:05 AM CDT Release to patient->Immediate Buzz Sales PAC HEMATOLOGY ORDERABLES Kym tineo Result [facility] [address] [place] [address], documented in this encounter Visit Diagnoses Diagnosis [...] documented as of this encounter Care Teams Rf Technician Relationship Specialty Start Date End Date Jonatan Worley [address] [place] [address] PCP - General Family Medicine 07/12/20 Srinivasa Lee MD [address] [place] [address] Consulting Physician Oncology 07/12/20 documented as of this encounter
--- OUTSIDE RECORDS SUMMARY | 2024-08-29 03:46 | XMS_ITS | Encounter Summary ---
Author Organization [facility] Address [address] [place] [address] Phone Care Team Providers Care Marketing Services Vice President Name Role Phone Jonatan Worley Primary Care Provider Srinivasa Lee MD Unavailable [phone] Encounter Details Date Type Department Care Team (Latest Contact Info) Description 09/06/2022 9:15 AM SHREDDER/GRANULATOR OPERATOR Lab [facility] [address] [address] Lab, Cc [facility] Hypogammaglobulinemia (HCC); Anemia of unknown etiology Social [...] on file Legal Sex Female 11:51 AM SHREDDER/GRANULATOR OPERATOR Gender Identity Not on file Sexual Orientation Not on file COVID-19 Exposure Response Date Recorded In the last 10 days, have yo u been in contact with someone who was confirmed or suspected to have Coronavirus/COVID-19? No / Unsure 09/06/2022 9:09 AM SHREDDER/GRANULATOR OPERATOR documented as of this encounter Plan of Treatment Upcoming Encounters Date Type Department Care Team (Late st Contact Info) Description 10/18/2024 1:30 PM SHREDDER/GRANULATOR OPERATOR Office Visit [facility] [place] [place] [address] [place] [address] Srinivasa Lee MD [address] [place], [place] [id number] documented as of this encounter Procedures Procedure Name Priority Date/Time Associated Diagnosis Comments IRON W/ IRON BINDING CAPACITY [place] Routine 09/06/2022 9:12 AM SHREDDER/GRANULATOR OPERATOR Hypogammaglobulinem ia (HCC) Anemia of unknown etiology FERRITIN Routine 09/06/2022 9:12 AM SHREDDER/GRANULATOR OPERATOR Hypogammaglobulinem ia (HCC) Anemia of unknown etiology CMP (COMPREHENSIVE METABOLIC PANEL) Routine 09/06/2022 9:12 AM SHREDDER/GRANULATOR OPERATOR Hypogammaglobulinem ia (HCC) Anemia of unknown etiology COMPLETE BLOOD COUNT (CBC) WITH DIFF Routine 09/06/2022 9:12 AM SHREDDER/GRANULATOR OPERATOR Hypogammaglobulinem ia (HCC) Anemia of unknown etiology documented in this encounter Results * (ABNORMAL) COMPLETE BLOOD COUNT (CBC) WITH DIFF (09/06/2022 9:12 AM SHREDDER/GRANULATOR OPERATOR) WBC 9.7 4.0 - 10.0 10*3/uL [facility] HGB 10.1(L) 11.2 - 15.7 g/dL [facility] HCT 29.5(L) 34.1 - 44.9 % [facility] PLT 184 163 - 369 10*3/uL [facility] MPV 11.4 9.4 - 12.4 fL [facility] RBC 3.35(L) 3.93 - 5.22 10*6/uL [facility] MCV 88 79 - 95 fL [facility] [place] MCH 30.1 25.6 - 32.2 pg [facility] MCHC 34.2 32.2 - 36.5 g/dL [facility] RDW 12.4 11.6 - 14.4 % [facility] Absolute Neutrophil Count 6,472 cells/uL [facility] Absolute Seg Count 6,472 1,440 - 6,600 cells/uL [facility] Absolute Lymph Count 2,029 760 - 4,000 cells/uL [facility] Absolute [place] Count 580 160 - 1,200 cells/uL [facility] Absolute Eos Count 580(H) 0 - 300 cells/uL [facility] Segmented Neutrophils 67(H) 36 - 66 % [facility] Lymphocytes 21 19 - 40 % [facility] [place] [place] Monocytes 6 4 - 12 % [facility] Eosinophils 6(H) 0 - 3 % [facility] [place] WBC Estimate Normal [facility] Platelet Estimate Normal [facility] RBC Morphology Normal [facility] Blood 09/06/2022 9:12 AM SHREDDER/GRANULATOR OPERATOR Narrative [facility] - 09/06/2022 11:23 AM SHREDDER/GRANULATOR OPERATOR Release to patient->Immediate Esther Oreilly DEVELOPMENT CHEMIST, LIGHTHOUSE KEEPER HEMATOLOGY ORDERA BLES Final Result [facility] [address] [place] [address], * (ABNORMAL) CMP (COMPREHENSIVE METABOLIC PANEL) (09/06/2022 9:12 AM SHREDDER/GRANULATOR OPERATOR) Glucose 186(H) 70 - 105 mg/dL [facility] Blood Urea Nitrogen 43(H) 7 - 25 mg/dL [facility] Creatinine 2.6(H) 0.6 - 1.2 mg/dL [facility] Sodium 137 136 - 145 mEq/L [facility] Potassium 4.9 3.5 - 5.1 mEq/L [facility] Chloride 106 98 - 107 mEq/L [facility] Bicarbonate 22 21 - 31 mEq/L [facility] Total Bilirubin 0.3 0.3 - 1.0 mg/dL [facility] Alk. Phosphatase 76 34 - 104 U/L [facility] Aspartate Aminotransferase 14 13 - 39 U/L [facility] Alanine Aminotransferase 11 7 - 52 U/L [facility] Total Protein 5.2(L) 6.4 - 8.9 g/dL [facility] Albumin 3.1(L) 3.5 - 5.7 g/dL [facility] Calcium 8.3(L) 8.6 - 10.3 mg/dL [facility] Anion Gap 13.9 7.0 - 15.0 mEq/L [facility] Globulin 2.1 2.0 - 3.5 g/dL [facility] EGFR 20(L) >60 ml/min/1. 73m2 [facility] Comment: This eGFR is calculated using 2020 CKD-EPI Creatinine equation without race modifier based on the NKF-ASN task force recommendations Blood 09/06/2022 9:12 AM SHREDDER/GRANULATOR OPERATOR [facility] - 09/06/2022 10:06 AM SHREDDER/GRANULATOR OPERATOR IS THE PATIENT REQUIRED TO BE FASTING FOR 8 HOURS?->No Release to patient->Immediate Esther Oreilly DEVELOPMENT CHEMIST, LIGHTHOUSE KEEPER CHEMISTRY ORDERAB LES Final Result [facility] [address] [place] [address], [place] [phone] * FERRITIN (09/06/2022 9:12 AM SHREDDER/GRANULATOR OPERATOR) Pathologist [facility] Ferritin 49 11 - 307 ng/mL [facility] Blood 09/06/2022 9:12 AM SHREDDER/GRANULATOR OPERATOR Narrative [facility] - 09/06/2022 2:01 PM SHREDDER/GRANULATOR OPERATOR Release to patient->Immediate Esther Oreilly DEVELOPMENT CHEMIST, LIGHTHOUSE KEEPER CHEMISTRY ORDERAB LES Final Result [facility] [address] [place] [address], [place] [phone] * (ABNORMAL) IRON W/ IRON BINDING CAPACITY [place] (09/06/2022 9:12 AM SHREDDER/GRANULATOR OPERATOR) IRON 48(L) 50 - 212 ug/dL [facility] UIBC 189 155 - 355 ug/dL [facility] TIBC 237(L) 261 - 478 ug/dl [facility] % Saturation 20 20 - 50 % [facility] 09/06/2022 9:12 AM SHREDDER/GRANULATOR OPERATOR Narrative [facility] - 09/06/2022 10:06 AM SHREDDER/GRANULATOR OPERATOR Release to patient->Immediate Eshter Oreilly APRN, LIGHTHOUSE KEEPER LAB SEND OUTS F inal Result [facility] [address] [place], [place] [address] [phone] documented in this encounter Visit Diagnoses Diagnosis Hypogammaglobulinemia (HCC) Hypogammaglobulinaemia, unspecified Anemia of unknown etiology Anemia, unspecified documented in this encounter Additional Health Concerns Assessment Noted Time PHQ-9 Depression Total Score: 0 03/08/20 21 11:06 AM CDT documented as of this encounter Care Teams Marketing Services Vice President Relationship Specialty Start Date End Date Jonatan Worley [address] [place] [address] PCP - General Family Medicine 07/12/20 Srinivasa Lee MD [address] [place] [address] Consulting Physician Oncology 07/12/20 documented as of this encounter
--- OUTSIDE RECORDS SUMMARY | 2024-08-29 03:46 | XMS_ITS | Encounter Summary ---
Author Organization [facility] Address [address] [place] [address] Phone Care Team Providers Care Traffic Recorder Name Role Phone Jonatan Worley Primary Care Provider [phone] Srinivasa Lee MD Unavailable [phone] Encounter Details Date Type Department Care Team (Latest Contact Info) Description 03/15/2022 9:20 AM CDT Lab [facility] [address] [address] Lab, Cc [facility] [place] Hypogammaglobulinemia (HCC); Anemia of unknown etiology [...] on file Legal Sex Female 11:51 AM ENROUTE CONTROLLER Gender Identity Not on file Sexual [...] st Contact Info) Description 10/18/2024 1:30 PM ENROUTE CONTROLLER Office Visit [facility] [place] [address] [place] [address] Srinivasa Lee MD [address] [place], [place] [id number] documented as of this encounter Procedures Procedure Name Priority Date/Time Associated Diagnosis Comments IRON W/ IRON BINDING CAPACITY [place] Routine 03/15/2022 9:34 AM CDT Hypogammaglobulinem ia (HCC) Anemia of unknown etiology VITAMIN B12 Routine 03/15/2022 9:34 AM CDT Hypogammaglobulinem ia (HCC) Anemia of unknown etiology FOLIC ACID (FOLATE) Routine 03/15/2022 9 :34 AM CDT Hypogammaglobulinem ia (HCC) Anemia of unknown etiology FERRITIN Routine 03/15/2022 9:34 AM CDT Hypogammaglobulinem ia (HCC) Anemia of unknown etiology CMP (COMPREHENSIVE METABOLIC PANEL) Routine 03/15/2022 9:34 AM CDT Hypogammaglobulinem ia (HCC) Anemia of unknown etiology COMPLETE BLOOD COUNT (CBC) WITH DIFF Routine 03/15/2022 9:34 AM CDT Hypogammaglobulinem ia (HCC) Anemia of unknown etiology documented in this encounter Results * (ABNORMAL) COMPLETE BLOOD COUNT (CBC) WITH DIFF (03/15/2022 9:34 AM CDT) WBC 8.7 4.0 - 10.0 10*3/uL [facility] HGB 10.4(L) 11.2 - 15.7 g/dL [facility] HCT 30.5(L) 34.1 - 44.9 % [facility] PLT 186 163 - 369 10*3/uL [facility] MPV 10.9 9.4 - 12.4 fL [facility] RBC 3.47(L) 3.93 - 5.22 10*6/uL [facility] MCV 88 79 - 95 fL [facility] MCH 30.0 25.6 - 32.2 pg [facility] MCHC 34.1 32.2 - 36.5 g/dL [facility] RDW 12.6 11.6 - 14.4 % [facility] Absolute Neutrophil Count 4,982 cells/uL [facility] Absolute Seg Count 4,982 1,440 - 6,600 cells/uL [facility] Absolute Lymph Count 1,923 760 - 4,000 cells/uL [facility] Absolute [place] Count 1,049 160 - 1,200 cells/uL [facility] Absolute Eos Count 699(H) 0 - 300 cells/uL [facility] Absolute Baso Count 87 0 - 100 cells/uL [facility] Segmented Neutrophils 57 36 - 66 % [facility] Lymphocytes 22 19 - 40 % [facility] [place] [facility] Monocytes 12 4 - 12 % [facility] Eosinophils 8(H) 0 - 3 % [facility] Basophils 1 0 - 1 % [facility] WBC Estimate Normal [facility] Platelet Estimate Normal [facility] RBC Morphology Normal [facility] Blood 03/15/2022 9:34 AM CDT Narrative [facility] - 03/15/2022 11:41 AM CDT Release to patient->Immediate Buzz Sales PAC HEMATOLOGY ORDERABLES Kym l Result [facility] [address] [place] [address], * (ABNORMAL) CMP (COMPREHENSIVE METABOLIC PANEL) (03/15/2022 9:34 AM CDT) Glucose 176(H) 70 - 105 mg/dL [facility] Blood Urea Nitrogen 44(H) 7 - 25 mg/dL [facility] Creatinine 2.6(H) 0.6 - 1.2 mg/dL [facility] Sodium 138 136 - 145 mEq/L [facility] Potassium 4.7 3.5 - 5.1 mEq/L [facility] Chloride 109(H) 98 - 107 mEq/L [facility] Bicarbonate 22 21 - 31 mEq/L [facility] Total Bilirubin 0.3 0.3 - 1.0 mg/dL [facility] Alk. Phosphatase 69 34 - 104 U/L [facility] Aspartate Aminotransferase 15 13 - 39 U/L [facility] Alanine Aminotransferase 11 7 - 52 U/L [facility] Total Protein 5.1(L) 6.4 - 8.9 g/dL [facility] Albumin 3.2(L) 3.5 - 5.7 g/dL [facility] Calcium 8.7 8.6 - 10.3 mg/dL [facility] Anion Gap 11.7 7.0 - 15.0 mEq/L [facility] Globulin 1.9(L) 2.0 - 3.5 g/dL [facility] EGFR 20(L) >60 ml/min/1. 73m2 [facility] Comment: This eGFR is calculated using 2020 CKD-EPI Creatinine equation without race modifier based on the NKF-ASN task force recommendations Blood 03/15/2022 9:34 AM CDT Narrative [facility] - 03/15/2022 10:46 AM CDT IS THE PATIENT REQUIRED TO BE FASTING FOR 8 HOURS?->No Release to patient->Immediate Buzz Sales PAC CHEMISTRY ORDERABLES Final Result [facility] Cancer [facility] [address] [place] [address], * (ABNORMAL) IRON W/ IRON BINDING CAPACITY [place] (03/15/2022 9:34 AM CDT) IRON 54 50 - 212 ug/dL [facility] UIBC 197 155 - 355 ug/dL [facility] TIBC 251(L) 261 - 478 ug/dl [facility] % Saturation 22 20 - 50 % [facility] Blood 03/15/2022 9:34 AM CDT [facility] - 03/15/2022 10:46 AM CDT Release to patient->Immediate us Buzz Sales PAC LAB SEND OUTS Final Resu lt [facility] [address] [place] [address], [place] [phone] * FERRITIN (03/15/2022 9:34 AM CDT) Ferritin 64 11 - 307 ng/mL [facility] VASCULAR TECHNOLOGIST [facility] Blood 03/15/2022 9:34 AM CDT [facility] 03/15/2022 2:16 PM CDT Release to patient->Immediate us Buzz Sales PAC CHEMISTRY ORDERABLES Final Result Performing Organization Address [facility] Co de Phone Number [facility] VASCULAR TECHNOLOGIST [facility] [address] [place] [address], [place] [phone] * VITAMIN B12 (03/15/2022 9:34 AM CDT) Vitamin B12 319 180 - 914 pg/mL [facility] Blood 03/15/2022 9:34 AM CDT [facility] - 03/15/2022 2:16 PM CDT Release to patient->Immediate us Buzz Sales PAC CHEMISTRY ORDERABLES Final Result Performing Organization Address City/[facility]/ZIP Co de Phone Number [facility] VASCULAR TECHNOLOGIST [facility] [address] [place] [address], [place] [phone] * FOLIC ACID (FOLATE) (03/15/2022 9:34 AM CDT) Folate 16.97 >=5.90 ng/mL [facility]ULAR TECHNOLOGIST [facility] Blood 03/15/2022 9:34 AM CDT Narrative [facility]ASCULAR TECHNOLOGIST [facility] - 03/15/2022 2:16 PM CDT IS THE PATIENT REQUIRED TO BE FASTING FOR 12 HOURS?->No Release to patient->Immediate us Buzz Sales PAC CHEMISTRY ORDERABLES Final Result [facility] VASCULAR TECHNOLOGIST [facility] [address] [place] [address], documented in this encounter Visit Diagnoses Diagnosis Hypogammaglobulinemia (HCC) Hypogammaglobulinaemia, unspecified Anemia of unknown etiology Anemia, unspecified documented in this encounter Additional Health Concerns Assessment Noted Time PHQ-9 Depression Total Score: 0 03/08/20 21 11:06 AM CDT documented as of this encounter Care Teams Traffic Recorder Relationship Specialty Start Date End Date Jonatan Worley [address] [place] [address] PCP - General Family Medicine 07/12/20 Srinivasa Lee MD [address] [place] [address] Consulting Physician Oncology 07/12/20 documented as of this encounter
--- OUTSIDE RECORDS SUMMARY | 2024-08-29 03:46 | XMS_ITS | Encounter Summary ---
Author Organization [employer] Care Team Providers Care Applications Sales Consultant Name Role Phone Jonatan Worley Primary Care Provider [phone] Srinivasa Lee MD Unavailable [phone] Encounter Details Date Type Department Care Team (Latest Contact Info) Description 06/14/2022 Travel Social History Tobacco Use Types Packs/Day [...] on file Legal Sex Female 11:51 AM PATROL AGENT Gender Identity Not on file Sexual Orientation [...] st Contact Info) Description 10/18/2024 1:30 PM PATROL AGENT Office Visit [facility] [address] [address] Srinivasa Lee MD [facility] [place] [address] [id number] documented as of this encounter Visit Diagnoses Not on filedocumented in this encounter Additional Health Concerns Assessment Noted Time PHQ-9 Depression Total Score: 0 03/08/20 21 11:06 AM CDT documented as of this encounter Care Teams Applications Sales Consultant Relationship Specialty Start Date End Date Jonatan Worley [address] [facility] [place] [address] PCP - General Family Medicine 07/12/20 Srinivasa Lee MD [address] [place] [address] Consulting Physician Oncology 07/12/20 documented as of this encounter
--- OUTSIDE RECORDS SUMMARY | 2024-08-29 03:46 | XMS_ITS | Encounter Summary ---
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 Gender Identity Not on file Sexual [...] st Contact Info) Description 10/18/2024 1:30 PM CONTROL ROOM OPERATOR Office Visit [facility] [address] [place] [address] Srinivasa Lee MD [address] [place] [address] documented as of this encounter Procedures Procedure Name Priority Date/Time Associated Diagnosis Comments IRON W/ IRON BINDING CAPACITY OH Routine 06/14/2022 9:38 AM CDT Anemia of unknown etiology CBC WITH AUTO DIFF OH Routine 06/14/2022 9:38 AM CDT FERRITIN Routine 06/14/2022 9:38 AM CDT Anemia of unknown etiology documented in this encounter Results * (ABNORMAL) CBC WITH AUTO DIFF OH (06/14/2022 9:38 AM CDT) WBC 8.8 4.0 - 10.0 10*3/uL [facility] HGB 9.6(L) 11.2 - 15.7 g/dL [facility] HCT 28.4(L) 34.1 - 44.9 % [facility] PLT 183 163 - 369 10*3/uL [facility] MPV 11.0 9.4 - 12.4 fL [facility] RBC 3.22(L) 3.93 - 5.22 10*6/uL [facility] MCV 88 79 - 95 fL [facility] MCH 29.8 25.6 - 32.2 pg [facility] MCHC 33.8 32.2 - 36.5 g/dL [facility] RDW 12.7 11.6 - 14.4 % [facility] Neutrophils % 63.4 36.0 - 66.0 % [facility] Lymphocytes % 19.3 19.0 - 40.0 % [facility] Monocytes % 8.7 4.1 - 12.1 % [facility] Eosinophils % 7.7(H) 0.0 - 3.5 % [facility] Basophils % 0.6 0.0 - 1.0 % [facility] Absolute Neutrophils 5.6 1.4 - 6.6 10*3/uL [facility] Absolute Lymphocytes 1.7 0.8 - 4.0 10*3/uL [facility] Absolute Monocytes 0.8 0.2 - 1.2 10*3/uL [facility] Absolute Eosinophils 0.7(H) 0.0 - 0.4 10*3/uL [facility] Absolute Basophils 0.1 0.0 - 0.1 10*3/uL [facility] WBC Estimate Normal [facility] Platelet Estimate Normal CA [facility] RBC Morphology Abnormal [facility] Poikilocytosis 1+ [facility] 06/14/2022 9:38 AM CDT Srinivasa Lee MD LAB SEND OUTS Final Result Performing Organization Address City/[facility] Co de Phone Number [facility] [place] [id number], [place] [phone] * (ABNORMAL) IRON W/ IRON BINDING CAPACITY [place] (06/14/2022 9:38 AM CDT) IRON 62 50 - 212 ug/dL [facility] UIBC 187 155 - 355 ug/dL [facility] TIBC 249(L) 261 - 478 ug/dl [facility] % Saturation 25 20 - 50 % [facility] Blood 06/14/2022 9:38 AM CDT Narrative [facility] - 06/14/2022 11:05 AM CDT Release to patient->Immediate us Srinivasa Lee MD LAB SEND OUTS Final Result Performing Organization Address City/[facility] Co de Phone Number [facility] [address] [address], [place] [phone] * FERRITIN (06/14/2022 9:38 AM CDT) Ferritin 67 11 - 307 ng/mL [facility] SHOE LAY OUT PLAN[facility] Blood 06/14/2022 9:3 8 AM CDT Narrative [facility] - 06/14/2022 2:45 PM CDT Release to patient->Immediate us Srinivasa Lee MD CHEMISTRY ORDERABLES Final R esult [facility] [place] [address], documented in this encounter Visit Diagnoses Diagnosis Anemia of unknown etiology Anemia, unspecified documented in this encounter Additional Health Concerns Assessment Noted Time PHQ-9 Depression Total Score: 0 03/08/20 21 11:06 AM CDT documented as of this encounter Care Teams Marble Ceiling Installer Relationship Specialty Start Date End Date Jonatan Worley [address] [place] [address] PCP - General Family Medicine 07/12/20 Srinivasa Lee MD [address] [place] [phone] Consulting Physician Oncology 07/12/20 documented as of this encounter
--- OUTSIDE RECORDS SUMMARY | 2024-08-29 03:46 | XMS_ITS | Encounter Summary ---
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 No / Unsure 12/14/2021 9:25 AM CDT documented as of this encounter Progress Notes * Buzz Sales PAC - 12/14/2021 9:45 AM CDT Send labs to upholsterer helper and PCP documented in this encounter Plan of Treatment Upcoming Encounters Date Type Department Care Team (Late st Contact Info) Description 10/18/2024 1:30 PM MANAGER CLIENT SERVICE Office Visit [facility] [address] [address] Srinivasa Lee MD [address] [place] [address] documented as of this encounter Procedures Procedure Name Priority Date/Time Associated Diagnosis Comments IRON W/ IRON BINDING CAPACITY OH Routine 12/14/2021 9:45 AM CDT Hypogammaglobuline ellen (HCC) Anemia of unknown etiology VITAMIN B12 Routine 12/14/2021 9:45 AM CDT Hypogammaglobuline ellen (HCC) Anemia of unknown etiology IMMUNOGLOBULIN IGA, IGG & IGM QUANT Routine 12/14/2021 9:45 AM CDT Hypogammaglobuline ellen (HCC) Anemia of unknown etiology FOLIC ACID (FOLATE) Routine 12/14/2021 9 :45 AM CDT Hypogammaglobuline ellen (HCC) Anemia of unknown etiology FERRITIN Routine 12/14/2021 9:45 AM CDT Hypogammaglobuline ellen (HCC) Anemia of unknown etiology CMP (COMPREHENSIVE METABOLIC PANEL) Routine 12/14/2021 9:45 AM CDT Hypogammaglobuline ellen (HCC) Anemia of unknown etiology COMPLETE BLOOD COUNT (CBC) WITH DIFF Routine 12/14/2021 9:45 AM CDT Hypogammaglobuline ellen (HCC) Anemia of unknown etiology documented in this encounter Results * (ABNORMAL) COMPLETE BLOOD COUNT (CBC) WITH DIFF (12/14/2021 9:45 AM CDT) WBC 8.3 4.0 - 10.0 10*3/uL [facility] HGB 10.5(L) 11.2 - 15.7 g/dL [facility] HCT 31.9(L) 34.1 - 44.9 % [facility] PLT 201 163 - 369 10*3/uL [facility] MPV 10.8 9.4 - 12.4 fL [facility] RBC 3.66(L) 3.93 - 5.22 10*6/uL [facility] MCV 87 79 - 95 fL [facility] MCH 28.7 25.6 - 32.2 pg [facility] MCHC 32.9 32.2 - 36.5 g/dL [facility] RDW 13.0 11.6 - 14.4 % [facility] Absolute Neutrophil Count 5,491 cells/uL [facility] Absolute Seg Count 5,491 1,440 - 6,600 cells/uL [facility] Absolute Lymph Count 1,498 760 - 4,000 cells/uL [facility] Absolute Vernon Count 582 160 - 1,200 cells/uL [facility] Absolute Eos Count 666(H) 0 - 300 cells/uL [facility] Absolute Baso Count 83 0 - 100 cells/uL [facility] Segmented Neutrophils 66 36 - 66 % [facility] Lymphocytes 18(L) 19 - 40 % [facility] Monocytes 7 4 - 12 % [facility] Eosinophils 8(H) 0 - 3 % [facility] Basophils 1 0 - 1 % [facility] WBC Estimate Normal [facility] Platelet Estimate Normal [facility] RBC Morphology Normal [facility] Blood 12/14/2021 9:45 AM CDT Narrative [facility] - 12/14/2021 11:05 AM CDT Release to patient->Immediate Buzz Sales PAC HEMATOLOGY ORDERABLES Kym l Result [facility] [address] [place] [address], * (ABNORMAL) CMP (COMPREHENSIVE METABOLIC PANEL) (12/14/2021 9:45 AM CDT) Glucose 199(H) 70 - 105 mg/dL [facility] Blood Urea Nitrogen 35(H) 7 - 25 mg/dL [facility] Creatinine 2.0(H) 0.6 - 1.2 mg/dL [facility] Sodium 139 136 - 145 mEq/L [facility] Potassium 5.3(H) 3.5 - 5.1 mEq/L [facility] Chloride 111(H) 98 - 107 mEq/L [facility] Bicarbonate 22 21 - 31 mEq/L [facility] Total Bilirubin 0.4 0.3 - 1.0 mg/dL [facility] Alk. Phosphatase 81 34 - 104 U/L [facility] Aspartate Aminotransferase 15 13 - 39 U/L [facility] Alanine Aminotransferase 12 7 - 52 U/L [facility] Total Protein 5.3(L) 6.4 - 8.9 g/dL [facility] Albumin 3.2(L) 3.5 - 5.7 g/dL [facility] Calcium 8.6 8.6 - 10.3 mg/dL [facility] Anion Gap 11.3 7.0 - 15.0 mEq/L [facility] Globulin 2.1 2.0 - 3.5 g/dL [facility] EGFR 28(L) >60 ml/min/1. 73m2 [facility] Comment: This eGFR is calculated using 2020 CKD-EPI Creatinine equation without race modifier based on the NKF-ASN task force recommendations Blood 12/14/2021 9:45 AM CDT Narrative [facility] - 12/14/2021 10:38 AM CDT Release to patient->Immediate Buzz Sales PAC CHEMISTRY ORDERABLES Final Result [facility] [address] [place] [address], [place] [phone] * (ABNORMAL) IRON W/ IRON BINDING CAPACITY [place] (12/14/2021 9:45 AM CDT) IRON 62 50 - 212 ug/dL [facility] UIBC 188 155 - 355 ug/dL [facility] TIBC 250(L) 261 - 478 ug/dl [facility] % Saturation 25 20 - 50 % [facility] Blood 12/14/2021 9:45 AM CDT Narrative [facility] - 12/14/2021 10:38 AM CDT Release to patient->Immediate us Buzz Sales PAC LAB SEND OUTS Final Resu lt [facility] [address] [place] [address], * FERRITIN (12/14/2021 9:45 AM CDT) Ferritin 81 11 - 307 ng/mL [facility] Blood 12/14/2021 9:45 AM CDT Narrative [facility] - 12/17/2021 3:24 PM CDT IS THE PATIENT REQUIRED TO BE FASTING FOR 12 HOURS?->No Release to patient->Immediate us Buzz Sales PAC CHEMISTRY ORDERABLES Final Result [facility] [address] [place] [address], [place] [phone] * VITAMIN B12 (12/14/2021 9:45 AM CDT) Vitamin B12 360 180 - 914 pg/mL [facility] Blood 12/14/2021 9:45 AM CDT Narrative [facility] - 12/17/2021 3:24 PM CDT IS THE PATIENT REQUIRED TO BE FASTING FOR 12 HOURS?->No Release to patient->Immediate Buzz Sales PAC CHEMISTRY ORDERABLES Final Result [facility] [address] [place] [address], [place] [phone] * FOLIC ACID (FOLATE) (12/14/2021 9:45 AM CDT) Folate 12.52 >=5.90 ng/mL [facility] Blood 12/14/2021 9:45 AM CDT [facility] - 12/17/2021 3:24 PM CDT IS THE PATIENT REQUIRED TO BE FASTING FOR 12 HOURS?->No Release to patient->Immediate Buzz Sales PAC CHEMISTRY ORDERABLES Final Result Performing Organization Address [facility]/ZIP Co de Phone Number [facility] [address] [place] [address], [place] [phone] * IMMUNOGLOBULIN IGA, IGG & IGM QUANT (12/14/2021 9:45 AM CDT) IGG 659 635 - 1,741 mg/dL [facility] IGA 204 66 - 433 mg/dL [facility] IGM 64 45 - 281 mg/dL [facility] Blood 12/14/2021 9:45 AM CDT [facility] - 12/17/2021 2:18 PM CDT Release to patient->Immediate Buzz Sales PAC CHEMISTRY ORDERABLES Final Result Performing Organization Address City/[facility]/ZIP Co de Phone Number [facility] [place] [address] [place] [address], [place] [phone] documented in this encounter Visit Diagnoses Diagnosis Hypogammaglobulinemia (HCC) Hypogammaglobulinaemia, unspecified Anemia of unknown etiology Anemia, unspecified documented in this encounter Additional Health Concerns Assessment Noted Time PHQ-9 Depression Total Score: 0 03/08/20 21 11:06 AM CDT documented as of this encounter Care Teams Overhead Crane Operator Relationship Specialty Start Date End Date Jonatan Worley [address] [facility] [place] [address] PCP - General Family Medicine 07/12/20 Srinivasa Lee MD [address] [place] [phone] Consulting Physician Oncology 07/12/20 documented as of this encounter
--- OUTSIDE RECORDS SUMMARY | 2024-08-29 03:46 | XMS_ITS | Encounter Summary ---
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 No / Unsure 09/06/2022 9:09 AM LOG HANDLING EQUIPMENT OPERATOR documented as of this encounter Plan of Treatment Upcoming Encounters Date Type Department Care Team (Late st Contact Info) Description 10/18/2024 1:30 PM LOG HANDLING EQUIPMENT OPERATOR Office Visit [facility] [address] [address] Srinivasa Lee MD [facility] [place] [address] [address] documented as of this encounter Visit Diagnoses Not on filedocumented in this encounter Additional Health Concerns Assessment Noted Time PHQ-9 Depression Total Score: 0 03/08/20 21 11:06 AM CDT documented as of this encounter Care Teams Circuit Court Clerk Relationship Specialty Start Date End Date Meir Jonatan [address] [facility] [place] [address] PCP - General Family Medicine 07/12/20 Srinivasa Lee MD [address] [place] [address] Consulting Physician Oncology 07/12/20 documented as of this encounter
--- OUTSIDE RECORDS SUMMARY | 2024-08-29 03:47 | XMS_ITS | Clinical Summary ---
Author Organization [facility] Address [address] [place] [address] Phone Care Team Providers Care Pizza Hut Assistant Name Role Phone Jonatan Worley MD Primary Care Provider [phone] Allergies Active Allergy Reactions Criticality Noted Date Comments Penicillins 12/19/2020 Medications Medication Sig Dispensed Refills Start Date End Date Status rosuvastatin (CRESTOR) 5 MG tablet Take 5 mg by mouth 1 (one) time each day Active metoprolol succinate XL (TOPROL-XL) 100 MG 24 hr tablet Take 100 mg by mouth 1 (one) time each day Active glimepiride (AMARYL) 4 MG tablet Take 4 mg by mouth 1 (one) time each day Active amLODIPine (NORVASC) 10 MG tablet Take 10 mg by mouth 1 (one) time each day Active Cholecalciferol 50 MCG (1999 UT) capsule Take 2,000 Units by mouth 1 (one) time each day 30 capsule 3 02/06/2023 Active cyanocobalamin (VITAMIN B-12) 1000 MCG tablet Take 1,000 mcg by mouth 1 (one) time each day Active glimepiride (AMARYL) 2 MG tablet Take 2 mg by mouth 1 (one) time each day Active Dapagliflozin Propanediol 10 MG tabletIndications: Diabetes mellitus with renal manifestations, type II or unspecified type, uncontrolled ([facility]) Take 1 tablet by mouth 1 (one) time each day 30 tablet 2 04/07/2024 Active timolol (BETIMOL) 0.5 % ophthalmic solution 2 drops 1 (one) time each day Active brimonidine (ALPHAGAN P) 0.1 % ophthalmic solution 2 drops 1 (one) time each day Active dorzolamide (TRUSOPT) 2 % ophthalmic solution 2 drops 1 (one) time each day Active sodium chloride (LUCIANA 128) 2 % ophthalmic solution 2 drops 1 (one) time each day Active hydrALAZINE (APRESOLINE) 50 MG tablet TAKE 1 TABLET BY MOUTH IN THE MORNING, TAKE 1 TABLET IN THE EVENING, AND 1 TABLET BEFORE BEDTIME 90 tablet 2 05/25/2024 Active Ferrous Sulfate (Iron) 325 (65 Fe) MG tablet Take 1 tablet by mouth once daily with breakfast 90 tablet 06/30/2024 Active sodium bicarbonate 650 MG tablet TAKE 1 TABLET BY MOUTH IN THE MORNING AND 1 IN THE EVENING AND 1 AT BEDTIME 270 tablet 08/06/2024 Active sodium bicarbonate 650 MG tablet Take 1 tablet (650 mg total) by mouth in the morning and 1 tablet (650 mg total) in the evening and 1 tablet (650 mg total) before bedtime. 270 tablet 1 01/01/2024 Discontinued Active Problems Problem Noted Date Diagnosed Date Metabolic acidosis 05/18/2024 Anemia in chronic kidney disease 05/27/2022 Chronic kidney disease, Stage IV (severe) 2020 Diabetes mellitus with renal manifestations, type II or unspecified type, uncontrolled 06/05/2021 Essential (primary) hypertension 06/05/2021 Resolved Problems Problem Noted Date Diagnosed Date Resolved Date Atrophy of kidney 07/03/2021 05/18/2024 Acute renal failure syndrome 06/05/2021 04/08/2022 Proteinuria 12/19/2020 06/28/2021 Renal function test borderline low 12/19/2020 06/28/2021 Renal disorder due to type 2 diabetes mellitus 12/19/2020 06/28/2021 Encounters Date Type Department Care Team Description 08/28/2024 Refill [facility] [address] [place] [address] Rosa Delgado NP 08/06/2024 Refill [facility] [address] [place] [address] [address] [place] [address] Rosa Delgado NP 06/30/2024 Refill [facility] [address] [place] [address] 1 [place] [address] Rosa Delgado NP from Last 3 Months Family History Medical History Relation Comments Diabetes Brother Diabetes Father Heart disease Father Hypertension Father Heart disease Mother Relation Status Comments Brother Father Mother Social History Tobacco Use Types Packs/Day Years Used Date Smoking Tobacco: Never Smokeless Tobacco: Never Alcohol Use Standard Drinks/Week Comments Never 0 (1 standard drink = 0.6 oz pur e alcohol) AUDIT-C Answer Date Recorded Q1: How often do you have a drink containing alc ohol? Never 12/19/2020 Average Number of Drinks Not on file 021 Frequency of Binge Drinking Not on file 11/24 Sex and Gender Information Value Date Recorded Sex Assigned at Not on file Gender Identity Not on file Sexual Orientation Not on file Last Filed Vital Signs Vital Sign Reading Time Taken Comments Blood Pressure 128/74 05/20/2024 11:13 AM CDT Pulse 69 05/20/2024 11:13 AM CDT Temperature 36.8 ??C (98.3 ??F) 04/11/2022 2:20 PM CD T Respiratory Rate - - Oxygen Saturation - - Inhaled Oxygen Concentration - - Weight 94.8 kg (209 lb) 05/20/2024 11:13 AM CDT Height 170.2 cm (5' 7 ) 05/20/2024 11:13 AM CDT Body Mass Index 32.73 05/20/2024 11:13 AM CDT Plan of Treatment Upcoming Encounters Date Type Department Care Team (Late st Contact Info) Description 09/23/2024 3:40 PM INDUSTRIAL EDITOR Office Visit [facility] [address] [address] Rosa Delgado NP [address] [phone] Health Maintenance Due Date Last Done Comments Diabetic Foot Exam 12/23/1971 Ophthalmology Exam 12/23/1971 Pneumococcal PPSV23 Highest Risk Adult (1 of 3 - PCV13 ) 1980 Influenza Vaccine (#1) 2024 Care Teams [employer] Assistant Relationship Specialty Start Date End Date Jonatan Worley MD [address] [place] [address] PCP - General 06/06/21
--- OUTSIDE RECORDS SUMMARY | 2024-08-29 03:47 | XMS_ITS | Encounter Summary ---
Author Organization [facility] Address [address] [place] [address] Phone Care Team Providers Care Scientific Publications Editor Name Role Phone Jonatan Worley MD Primary Care Provider [phone] Reason for Visit * Reason Comments Med Refill Encounter Details Date Type Department Care Team ([facility] Contact Info) Description 10/20/2023 Refill [facility] [address] [place] [phone] Rosa Delgado NP [address] [phone] Social History Tobacco Use Types Packs/Day Years [...] Upcoming Encounters Date Type Department Care Team ([facility] Contact Info) Description 09/23/2024 3:40 PM DONOR SUPPORT TECHNICIAN Office Visit [facility] [address] [phone] Rosa Delgado NP [address] [phone] documented as of this encounter Visit Diagnoses Not on filedocumented in this encounter Care Teams Scientific Publications Editor Relationship Specialty Start Date End Date Jonatan Worley MD [address] [place] [address] PCP - General 06/06/21 documented as of this encounter
--- OUTSIDE RECORDS SUMMARY | 2024-08-29 03:47 | XMS_ITS | Encounter Summary ---
Author Organization Isaac Physician Ilana utialmas Address [address] [place] [address] Phone Care Team Providers Care Chip Silo Tender Name Role Phone Jonatan Worley MD Primary Care Provider [phone] Reason for Visit * Reason Comments Med Refill Encounter Details Date Type Department Care Team ([facility] Contact Info) Description 03/19/2024 Refill [facility] [address] [place] [phone] Rosa Delgado NP [address] [phone] Social History Tobacco Use Types Packs/Day Years [...] Upcoming Encounters Date Type Department Care Team ([facility] Contact Info) Description 09/23/2024 3:40 PM REGIONAL ACCOUNT DIRECTOR Office Visit [facility] 5003 [facility] 1 [place], [place] [phone] Rosa Delgado NP [address] [phone] documented as of this encounter Visit Diagnoses Not on filedocumented in this encounter Care Teams Chip Silo Tender Relationship Specialty Start Date End Date Jonatan Worley MD [address] [place] [address] PCP - General 06/06/21 documented as of this encounter
--- OUTSIDE RECORDS SUMMARY | 2024-08-29 03:47 | XMS_ITS | Encounter Summary ---
Author Organization Isaac Physician Ilana utialmas Address [address] [place] [phone] Phone Care Team Providers Care Nurse Coordinator Name Role Phone Jonatan Worley MD Primary Care Provider [phone] Reason for Visit * Reason Comments Med Refill Encounter Details Date Type Department Care Team ([facility] Contact Info) Description 04/22/2024 Refill [facility] [address] [place] [address] [phone] Rosa Delgado NP [address] [phone] Social History Tobacco Use Types Packs/Day Years [...] Upcoming Encounters Date Type Department Care Team ([facility] Contact Info) Description 09/23/2024 3:40 PM ROOFER APPRENTICE Office Visit [facility] 5003 [facility] 1 [place], [place] [phone] Rosa Delgado NP [address] [phone] documented as of this encounter Visit Diagnoses Not on filedocumented in this encounter Care Teams Nurse Coordinator Relationship Specialty Start Date End Date Jonatan Worley MD [address] [place] [address] PCP - General 06/06/21 documented as of this encounter
--- OUTSIDE RECORDS SUMMARY | 2024-08-29 03:47 | XMS_ITS | Encounter Summary ---
Author Organization Isaac Physician Ilana petersen Address [address] [place] [address] Phone Care Team Providers Care Engineering Assistant Name Role Phone Jonatan Worley MD Primary Care Provider [phone] Encounter Details Date Type Department Care Team ([facility] Contact Info) Description 04/29/2023 Orders Only [facility] [address] [place] [address] 1 [place] [address] Rosa Delgado NP [address] [address] Social History Tobacco Use Types Packs/Day Years [...] Encounters Date Type Department Care Team (Late Contact Info) Description 09/23/2024 3:40 PM LAMINATING MACHINE TENDER Office Visit [facility] 5003 [facility] 1 [place] [address] Rosa Delgado NP [address] [phone] documented as of this encounter Procedures Procedure Name Priority Date/Time Associated Diagnosis Comments MICROALBUMIN, RANDOM URINE WITH CREATININE Routine 04/29/2023 10:42 AM CDT URINALYSIS, COMPLETE, W/ REFLEX TO CULTURE Routine 04/29/2023 10:42 AM CDT CBC (INCLUDES DIFFERENTIAL/PLATELE TS) Routine 04/29/2023 10:42 AM CDT RENAL FUNCTION PANEL (RFP) Routine 04/29/2023 10:42 AM CDT PTH INTACT AND CALCIUM, SERUM Routine 04/29/2023 10:42 AM CDT documented in this encounter Results * (ABNORMAL) Microalbumin, Random Urine with Creatinine (04/29/2023 10:42 AM CDT) Creatinine, Urine 33 20 - 275 mg/dL [facility]) Microalbumin, Urine 66.5 See Note: mg/dL [facility] [place] ([facility]) Comment: Reference Range: Reference Range Not established Verified by repeat analysis. Albumin/Creatinin e, Urine 2,015(H) <30 mcg/mg creat [facility] [place] ([facility]) Comment: The ADA defines abnormalities in albumin excretion as follows: Albuminuria Category ?Result (mcg/mg creatinine) Normal to Mildly increased ?? <30 Moderately increased ? 30-299 Severely increased ? > OR = 300 The ADA recommends that at least two of three specimens collected within a 3-6 month period be abnormal before considering a patient to be within a diagnostic category. 04/29/2023 10:4 2 AM CDT 04/29/2023 10:46 AM CDT Narrative Resulting Agency Comment Performing Organization Information: ?Site ID: [place] ?Name: [facility] ?Address: [address] [address] ?Director: Odalys Bangura MD Rosa Delgado NP LAB URINE ORDERABLES [facility] ([facility]) * (ABNORMAL) Urinalysis, Complete, w/ Reflex to Culture (04/29/2023 10:42 AM CDT) Color of Urine YELLOW YELLOW [facility]) Appearance of Urine CLOUDY(A) CLEAR [facility] ([facility]) Specific gravity of Urine 1.010 1.001 - 1.035 [facility] ([facility]) pH of Urine 8.5(H) 5.0 - 8.[address] [facility] ([facility]) Glucose, Urine 2+(A) NEGATIVE [facility]) Bilirubin, total, Urine NEGATIVE NEGATIVE [facility]) Ketones, Urine NEGATIVE NEGATIVE [facility]) Hemoglobin, Urine NEGATIVE NEGATIVE [facility]) Protein, Urine 2+(A) NEGATIVE [facility]) Nitrite, Urine NEGATIVE NEGATIVE [facility]) Leukocyte esterase, Urine 1+(A) NEGATIVE [facility]) Leukocytes, Urine sediment 10-20(A) < OR = 5 /HPF [facility] ([facility]) Erythrocytes, Urine sediment NONE SEEN < OR = 2 /HPF [facility]) Epithelial cells, squamous, Urine sediment 0-5 < OR = 5 /HPF [facility]) Bacteria, Urine sediment FEW(A) NONE SEEN /HPF [facility]) Triple phosphate crystals, Urine sediment FEW NONE OR FEW /HPF [facility]) Hyaline casts, Urine sediment 6-10(A) NONE SEEN /LPF [facility] Bacteria identified, Urine [facility]) Comment:CULTURE INDICATED - RESULTS TO FOLLOW Culture, Urine, Routine [facility] ([facility]) Comment: ??CULTURE, URINE, ROUTINE ?Micro Number: ?[id number] ??Test Status: ? Final ??Specimen Source: ?? Urine ??Specimen Quality: ??Adequate ??Result: ?No Growth 04/29/2023 10:4 2 AM CDT 04/29/2023 10:46 AM CDT Narrative Resulting Agency Comment Performing Organization Information: ?Site ID: [place] ?Name: [employer] ?Address: [address] [facility] [place] [address] ?Director: Odalys Bangura MD Rosa Delgado MANUAL WINDER LAB BLOOD ORDERABLES [facility] [place] ([facility]) * (ABNORMAL) PTH Intact and Calcium, Serum (04/29/2023 10:42 AM CDT) PTH, Intact, Serum/Plasma 93(H) 16 - 77 pg/mL [facility]) Comment: Interpretive Guide ?Intact PTH ? Calcium ? ------- Normal Parathyroid ?Normal ? Normal Hypoparathyroidism ?Low or Low Normal ?Low Hyperparathyroidism ?? Primary ?Normal or High ? High ?? Secondary ?High ? Normal or Low ?? Tertiary ? High ? High Non-Parathyroid ?? Hypercalcemia ?Low or Low Normal ?High Calcium, Serum/Plasma 8.8 8.6 - 10.4 mg/dL [facility] [place] [facility]) 04/29/2023 10:4 2 AM CDT 04/29/2023 10:46 AM CDT Narrative Resulting Agency Comment Performing Organization Information: ?Site ID: DC ?Name: [facility] ?Address: [facility] [address] [address] ?Director: Odalys Bangura MD Rosa Delgado NP LAB BLOOD ORDERABLES [facility] ([facility]) * (ABNORMAL) CBC (includes Differential/Platelets) (04/29/2023 10:42 AM CDT) Leukocytes, Blood 9.1 3.8 - 10.8 Thousand/u L [facility] ([facility]) Erythrocytes (RBC) 3.34(L) 3.80 - 5.10 Million/uL [facility] ([facility]) Hemoglobin (HGB) 9.7(L) 11.7 - 15.5 g/dL [facility] ([facility]) Hematocrit (HCT) 30.8(L) 35.0 - 45.0 % [facility] ([facility]) MCV 92.2 80.0 - 100.[address] [facility] ([facility]) MCH 29.0 27.0 - 33.[address] [facility] ([facility]) MCHC 31.5(L) 32.0 - 36.0 g/dL [facility] ([facility]) Erythrocyte Distribution Width (RDW) 12.8 11.0 - 15.0 % [facility] ([facility]) Platelets, Blood 172 140 - 400 Thousand/u L [facility] ([facility]) Platelet mean volume, Blood 11.8 7.5 - 12.[address] [facility] ([facility]) Neutrophils, Blood 5,860 1,500 - 7,800 cells/uL [facility]) Lymphocytes, Blood 1,729 850 - 3,900 cells/uL [facility] ([facility]) Monocytes, Blood 628 200 - 950 cells/uL [facility] ([facility]) Eosinophils, Blood 819(H) 15 - 500 cells/uL [facility] ([facility]) Basophils, Blood 64 0 - 200 cells/uL [facility] ([facility]) Neutrophils/100 leukocytes, Blood 64.4 % [facility]) Lymphocytes/100 leukocytes, Blood 19.0 % [facility]) Monocytes/100 leukocytes, Blood 6.9 % [facility]) Eosinophils/100 leukocytes, Blood 9.0 % [facility]) Basophils/100 leukocytes, Blood 0.7 % [facility]) 04/29/2023 10:4 2 AM CDT 04/29/2023 10:46 AM CDT Narrative Resulting Agency Comment Performing Organization Information: ?Site ID: SL ?Name: [facility] ?Address: [facility] [place] [address] ?Director: Odalys Bangura Rosa Delgado NP LAB BLOOD ORDERABLES [facility] [place] ([facility] * (ABNORMAL) Renal Function Panel (RFP) (04/29/2023 10:42 AM CDT) Glucose, Serum/Plasma 140(H) 65 - 99 mg/dL [facility] ([facility]) Comment: ? Fasting reference interval For someone without known diabetes, a glucose value >125 mg/dL indicates that they may have diabetes and this should be confirmed with a follow-up test. Urea nitrogen, Serum/Plasma (BUN) 39(H) 7 - 25 mg/dL [facility] [place] ([facility]) Creatinine, Serum/Plasma 2.60(H) 0.50 - 1.05 mg/dL [facility] [place] [facility]) Estimated Glomerular Filtration Rate (eGFR) 20(L) > OR = 60 mL/min/1.7 3m2 [facility] [place] [facility]) Urea nitrogen/Creati nine, Serum/Plasma 15 6 - 22 (calc) [facility] ([facility]) Sodium, Serum/Plasma 135 135 - 146 mmol/L [facility] [place] [facility]) Potassium, Serum/Plasma 5.1 3.5 - 5.3 mmol/L [facility] [place] [facility]) Chloride, Serum/Plasma 107 98 - 110 mmol/L [facility] [place] ([facility]) Carbon dioxide CO2), total, Serum/Plasma 20 20 - 32 mmol/L [facility]) Calcium, Serum/Plasma 8.6 8.6 - 10.4 mg/dL [facility] [place]) Phosphate, Serum/Plasma 4.7(H) 2.5 - 4.5 mg/dL [facility] [place] ([facility]) Albumin, Serum/Plasma 3.5(L) 3.6 - 5.1 g/dL [facility] [place]) 04/29/2023 10:4 2 AM CDT 04/29/2023 10:46 AM CDT Narrative Resulting Agency Comment Performing Organization Information: ?Site ID: SL ?Name: [facility] ?Address: [facility] [place] [address] ?Director: Odalys Bangura Rosa Delgado NP LAB BLOOD ORDERABLES [facility]) documented in this encounter Visit Diagnoses Not on filedocumented in this encounter Care Teams Engineering Assistant Relationship Specialty Start Date End Date Jonatan Worley MD [address] [place] [address] PCP - General 06/06/21 documented as of this encounter
--- OUTSIDE RECORDS SUMMARY | 2024-08-29 03:47 | XMS_ITS | Encounter Summary ---
Author Organization Isaac Physician Ilana petersen Address [address] [place] [address] Phone Care Team Providers Care Steel Post Installer Supervisor Name Role Phone Jonatan Worley MD Primary Care Provider [phone] Encounter Details Date Type Department Care Team ([facility] Contact Info) Description 05/05/2024 Orders Only [facility] 5003 [facility] 1 [place] [address] Rosa Delgado NP [address] [address] Social History Tobacco Use Types [...] (Late Contact Info) Description 09/23/2024 3:40 PM CAREER COUNSELOR Office Visit [facility] 5003 [facility] 1 [place] [address] Rosa Delgado NP [address] [phone] documented as of this encounter Procedures Procedure Name Priority Date/Time Associated Diagnosis Comments VITAMIN D, 25-HYDROXY, SERUM Routine 05/05/2024 9:35 AM CDT CBC (INCLUDES DIFFERENTIAL/PLATEL ETS) Routine 05/05/2024 9:35 AM CDT RENAL FUNCTION PANEL (RFP) Routine 05/05/2024 9:35 AM CDT FERRITIN, SERUM Routine 05/05/2024 9:35 AM CDT IRON AND TIBC, SERUM Routine 05/05/2024 9:35 AM CDT PTH INTACT AND CALCIUM, SERUM Routine 05/05/2024 9:35 AM CDT documented in this encounter Results * Vitamin D, 25-Hydroxy, Serum (05/05/2024 9:35 AM CDT) Calcidiol, Serum/Plasma 76 30 - 100 ng/mL [facility] ([facility]) Comment: Vitamin D Status ? 25-OH Vitamin D: Deficiency: ?<20 ng/mL Insufficiency: ? 20 - 29 ng/mL Optimal: ? > or = 30 ng/mL For 25-OH Vitamin D testing on patients on D2-supplementation and patients for whom quantitation of D2 and D3 fractions is required, the QuestAssureD() 25-OH VIT D, (D2,D3), LC/MS/MS is recommended: order code 49045 (patients >2yrs). See Note 1 Note 1 For additional information, please refer to http://education.Factual.Vigilistics/faq/EZQ038 (This link is being provided for informational/ educational purposes only.) 05/05/2024 9:35 AM CDT 05/05/2024 9:35 AM CDT Narrative [facility] ([facility]) - 05/07/2024 2:18 AM CDT FASTING:YES FASTING: YES Resulting Agency Comment Performing Organization Information: ?Site ID: [place] ?Name: [employer] ?Address: [facility] [place] [address] ?Director: Odalys Bangura MD Rosa Delgado CONSTRUCTION AREA MANAGER LAB BLOOD ORDERABLES Performing Organization Address [facility] Co de Phone Number [facility] [place] [facility] * Ferritin, Serum (05/05/2024 9:35 AM CDT) Ferritin, Serum/Plasma 122 16 - 288 ng/mL [facility] [place] ([facility]) 05/05/2024 9:35 AM CDT 05/05/2024 9:35 AM CDT Narrative [facility] ([facility]) - 05/07/2024 2:18 AM CDT FASTING:YES FASTING: YES Resulting Agency Comment Performing Organization Information: ?Site ID: [place] ?Name: [employer] ?Address: [address] [place] [address] ?Director: Odalys Bangura MD Rosa Delgado CONSTRUCTION AREA MANAGER LAB BLOOD ORDERABLES Performing Organization Address [facility] Co de Phone Number [facility] [place] ([facility]) * (ABNORMAL) Iron and TIBC, Serum (05/05/2024 9:35 AM CDT) Iron, Serum/Plasma 32(L) 45 - 160 mcg/dL [facility] ([facility]) Iron binding capacity, Serum/Plasma 201(L) 250 - 450 mcg/dL (calc) [facility] ([facility]) Iron saturation, Serum/Plasma 16 16 - 45 % (calc) [facility] ([facility]) 05/05/2024 9:35 AM CDT 05/05/2024 9:35 AM CDT Narrative [facility] ([facility]) - 05/07/2024 2:18 AM CDT FASTING:YES FASTING: YES Resulting Agency Comment Performing Organization Information: ?Site ID: [place] ?Name: [employer] ?Address: [address] [address] ?Director: Odalys Bangura MD Rosa Delgado NP LAB BLOOD ORDERABLES [facility]) * (ABNORMAL) PTH Intact and Calcium, Serum (05/05/2024 9:35 AM CDT) PTH, Intact, Serum/Plasma 70 16 - 77 pg/mL [facility] [employer] [facility] ([facility]) Comment: Interpretive Guide ?Intact PTH ? Calcium ? ------- Normal Parathyroid ?Normal ? Normal Hypoparathyroidism ?Low or Low Normal ?Low Hyperparathyroidism ?? Primary ?Normal or High ? High ?? Secondary ?High ? Normal or Low ?? Tertiary ? High ? High Non-Parathyroid ?? Hypercalcemia ?Low or Low Normal ?High Calcium, Serum/Plasma 8.2(L) 8.6 - 10.4 mg/dL [facility] ([facility]) 05/05/2024 9:35 AM CDT 05/05/2024 9:35 AM CDT Narrative [facility] [place] ([facility]) - 05/07/2024 2:18 AM CDT FASTING:YES FASTING: YES Resulting Agency Comment Performing Organization Information: ?Site ID: [place] ?Name: [employer] ?Address: [address] [address] ?Director: Odalys Bangura MD Rosa Delgado NP LAB BLOOD ORDERABLES [facility] [place] ([facility]) * (ABNORMAL) Renal Function Panel (RFP) (05/05/2024 9:35 AM CDT) Glucose, Serum/Plasma 123(H) 65 - 99 mg/dL [facility] [place] ([facility]) Comment: ? Fasting reference interval For someone without known diabetes, a glucose value between 100 and 125 mg/dL is consistent with prediabetes and should be confirmed with a follow-up test. Urea nitrogen, Serum/Plasma (BUN) 36(H) 7 - 25 mg/dL [facility] [place] ([facility]) Creatinine, Serum/Plasma 2.64(H) 0.50 - 1.05 mg/dL [facility] [place] ([facility]) Estimated Glomerular Filtration Rate (eGFR) 20(L) > OR = 60 mL/min/1.7 3m2 [facility] [place] ([facility]) Urea nitrogen/Creati nine, Serum/Plasma 14 6 - 22 (calc) [facility] [place] ([facility]) Sodium, Serum/Plasma 136 135 - 146 mmol/L [facility] [place] ([facility]) Potassium, Serum/Plasma 4.5 3.5 - 5.3 mmol/L [facility] Chloride, Serum/Plasma 108 98 - 110 mmol/L [facility] [place] ([facility]) Carbon dioxide CO2), total, Serum/Plasma 20 20 - 32 mmol/L [facility] ([facility]) Calcium, Serum/Plasma 8.2(L) 8.6 - 10.4 mg/dL [facility] [place] ([facility]) Phosphate, Serum/Plasma 4.0 2.5 - 4.5 mg/dL [facility] [place]) Albumin, Serum/Plasma 3.0(L) 3.6 - 5.1 g/dL [facility] [place] ([facility]) 05/05/2024 9:35 AM CDT 05/05/2024 9:35 AM CDT Narrative [facility] [place] ([facility]) - 05/07/2024 2:18 AM CDT FASTING:YES FASTING: YES Resulting Agency Comment Performing Organization Information: ?Site ID: ?Name: [facility] [facility] ?Address: [facility] [place] [address] ?Director: Odalys Bangura Rosa Delgado NP LAB BLOOD ORDERABLES [facility] [place] ([facility]) * (ABNORMAL) CBC (includes Differential/Platelets) (05/05/2024 9:35 AM CDT) Leukocytes, Blood 6.0 3.8 - 10.8 Thousand/u L [facility] ([facility]) Erythrocytes (RBC) 3.35(L) 3.80 - 5.10 Million/uL [facility] ([facility]) Hemoglobin (HGB) 9.4(L) 11.7 - 15.5 g/dL [facility]) Hematocrit (HCT) 30.3(L) 35.0 - 45.0 % [facility] ([facility]) MCV 90.4 80.0 - 100.[address] [facility] ([facility]) MCH 28.1 27.0 - 33.[address] [facility] ([facility]) MCHC 31.0(L) 32.0 - 36.0 g/dL [facility]) Erythrocyte Distribution Width (RDW) 13.8 11.0 - 15.0 % [facility]) Platelets, Blood 227 140 - 400 Thousand/u L [facility] ([facility]) Platelet mean volume, Blood 10.3 7.5 - 12.[address] [facility]) Neutrophils, Blood 3,768 1,500 - 7,800 cells/uL [facility]) Lymphocytes, Blood 1,182 850 - 3,900 cells/uL [facility]) Monocytes, Blood 432 200 - 950 cells/uL [facility]) Eosinophils, Blood 600(H) 15 - 500 cells/uL [facility]) Basophils, Blood 18 0 - 200 cells/uL [facility]) Neutrophils/100 leukocytes, Blood 62.8 % [facility]) Lymphocytes/100 leukocytes, Blood 19.7 % [facility]) Monocytes/100 leukocytes, Blood 7.2 % [facility]) Eosinophils/100 leukocytes, Blood 10.0 % [facility]) Basophils/100 leukocytes, Blood 0.3 % [facility]) 05/05/2024 9:35 AM CDT 05/05/2024 9:35 AM CDT Narrative [facility] ([facility] - 05/07/2024 2:18 AM CDT FASTING:YES FASTING: YES Resulting Agency Comment Performing Organization Information: ?Site ID: SL ?Name: [employer] ?Address: [facility] [place] [address] ?Director: Odalys Bangura Rosa Delgado NP LAB BLOOD ORDERABLES [facility] documented in this encounter Visit Diagnoses Not on filedocumented in this encounter Care Teams Steel Post Installer Supervisor Relationship Specialty Start Date End Date Jonatan Worley MD [address] [place] [address] PCP - General 06/06/21 documented as of this encounter
--- OUTSIDE RECORDS SUMMARY | 2024-08-29 03:47 | XMS_ITS | Encounter Summary ---
Author Organization [facility] Il[facility] petersen Address [address] [place] [address] Phone Care Team Providers Care General Office Assistant Name Role Phone Jonatan Worley MD Primary Care Provider [phone] Reason for Visit * Reason Comments CKD Encounter Details Date Type Department Care Team ([facility] st Contact Info) Description 09/04/2023 10:20 AM POWER ELECTRONICS RESEARCH ENGINEER Office Visit [facility] [address] [facility] [address] [place] [address] Rosie Hernandez, TIGER MACHINE OPERATOR [address] [address] Chronic kidney disease, Stage IV (severe) (CMS-HCC) (Primary Dx); Diabetes mellitus with renal manifestations, type II or unspecified type, uncontrolled (CMS-HCC); Essential (primary) hypertension; Anemia in chronic kidney disease; Atrophy of kidney Social History Tobacco Use Types Packs/Day Years [...] Sign Reading Time Taken Comments Blood Pressure 150/83 09/04/2023 10:14 AM POWER ELECTRONICS RESEARCH ENGINEER Pulse 71 09/04/2023 10:14 AM POWER ELECTRONICS RESEARCH ENGINEER Temperature - - Respiratory Rate - - Oxygen Saturation - - Inhaled Oxygen Concentration - - Weight 104 kg (230 lb) 09/04/2023 10:14 AM POWER ELECTRONICS RESEARCH ENGINEER Height 170.2 cm (5' 7 ) 09/04/2023 10:14 AM POWER ELECTRONICS RESEARCH ENGINEER Body Mass Index 36.02 09/04/2023 10:14 AM POWER ELECTRONICS RESEARCH ENGINEER documented in this encounter Progress Notes * Rosie Hernandez NP - 09/04/2023 10:20 AM CST Patient: Arely Ernandez Birthdate: 1960 PCP: Jonatan Worley MD Reason for visit: Visit Date: 09/04/2023 CHIEF COMPLAINT CKD INTERIM HISTORY Arely Ernandez is a 62 y.o. female presenting with a past medical history of DM that is controlled with oral medications, glaucoma, HTN, and CKD IV. Presents today with her for follow up. States she is doing well. Has some swelling which is at baseline to BLE. Good urine output and no incontinence. Tolerating farxiga without any side effects. BP is better today as per review of home readings. Denies any SOB. PAST MEDICAL HISTORY Past Medical History: Diagnosis Date Acute renal failure syndrome (CMS-HCC) 06/05/2021 Anemia in chronic kidney disease 05/27/2022 Chronic kidney disease Diabetes mellitus without mention of complication, type II or unspecified type, not stated as uncontrolled (CMS-[facility]) Essential hypertension History of nonproliferative diabetic retinopathy Other and unspecified hyperlipidemia PAST SURGICAL HISTORY History reviewed. No pertinent surgical history. SOCIAL HISTORY Social History Tobacco Use Smoking status: Never Smokeless tobacco: Never Vaping Use Vaping Use: Never used Substance Use Topics Alcohol use: Never Drug use: Never FAMILY HISTORY Family History Problem Relation Age of Onset Heart disease Mother Diabetes Father Heart disease Father Hypertension Father Diabetes Brother MEDICATIONS Current Outpatient Medications Medication Sig Dispense Refill amLODIPine (NORVASC) 10 MG tablet Take 10 mg by mouth 1 (one) time each day aspirin 81 MG chewable tablet Chew 81 mg 1 (one) time each day Cholecalciferol 50 MCG (2000 UT) capsule Take 2,000 Units by mouth 1 (one) time each day 30 capsule3 cyanocobalamin (VITAMIN B-12) 1000 MCG tablet Take 1,000 mcg by mouth 1 (one) time each day Farxiga 10 MG tablet Take 1 tablet by mouth once daily 30 tablet 4 ferrous sulfate 325 (65 Fe) MG tablet Take 325 mg by mouth 1 (one) time each day with breakfast glimepiride (AMARYL) 2 MG tablet Take 2 mg by mouth 1 (one) time each day glimepiride (AMARYL) 4 MG tablet Take 4 mg by mouth 1 (one) time each day before breakfast hydrALAZINE (APRESOLINE) 50 MG tablet Take 1 tablet (50 mg total) by mouth in the morning and 1 tablet (50 mg total) in the evening and 1 tablet (50 mg total) before bedtime. 90 tablet 4 metoprolol succinate XL (TOPROL-XL) 100 MG 24 hr tablet Take 100 mg by mouth 1 (one) time each day rosuvastatin (CRESTOR) 5 MG tablet Take 5 mg by mouth 1 (one) time each day No current facility-administered medications for this visit. ALLERGIES Allergies Allergen Reactions Penicillins REVIEW OF SYSTEMS Review of Systems Constitutional: Negative for activity change, appetite change and fatigue. HENT: Negative for hearing loss. Eyes: Negative for pain, discharge and redness. Respiratory: Negative for cough and shortness of breath. Cardiovascular: Negative for chest pain, palpitations and leg swelling. Gastrointestinal: Negative for abdominal distention, abdominal pain, constipation, diarrhea and nausea. Endocrine: Negative for polyuria. Genitourinary: Negative for difficulty urinating, dysuria, frequency, hematuria and urgency. Musculoskeletal: Negative for arthralgias, back pain, gait problem and joint swelling. Skin: Negative for color change and rash. Neurological: Negative for dizziness, speech difficulty, weakness and numbness. Hematological: Does not bruise/bleed easily. Psychiatric/Behavioral: Negative for confusion and sleep disturbance. VITALS BP 150/83 (BP Location: Right arm, Patient Position: Sitting, BP Cuff Size: Large adult) Pulse 71 Ht 5' 7 (1.702 m) Wt 230 lb (104 kg) BMI 36.02 kg/m?? BSA 2.22 m?? PHYSICAL EXAM Physical Exam Constitutional: Appearance: She is well-developed and well-nourished. HENT: Head: Normocephalic and atraumatic. Right Ear: External ear normal. Left Ear: External ear normal. Nose: Nose normal. Mouth/Throat: Mouth: Oropharynx is clear and moist. Eyes: Extraocular Movements: EOM normal. Conjunctiva/sclera: Conjunctivae normal. Pupils: Pupils are equal, round, and reactive to light. Neck: Musculoskeletal: Normal range of motion. Cardiovascular: Rate and Rhythm: Normal rate and regular rhythm. Heart sounds: Normal heart sounds. Pulmonary: Effort: Pulmonary effort is normal. Breath sounds: Normal breath sounds. Abdominal: General: Bowel sounds are normal. Palpations: Abdomen is soft. Musculoskeletal: General: Edema (nonpitting to BLE) present. Normal range of motion. Skin: General: Skin is warm and dry. Neurological: Mental Status: She is alert and oriented to person, place, and time. Psychiatric: Mood and Affect: Mood and affect normal. ASSESSMENT AND PLAN Assessment/Plan Diagnoses and all orders for this visit: Chronic kidney disease, Stage IV (severe) ([facility]) Renal function is stable with creatinine ranging 2.5-2.9 mg/dL. We discussed that it is time to attend renal education and they are going to discuss and schedule in a couple months. I have discussed with them that if there are any changes to contact the office to discuss. Will maintain current POC.Tolerating farxiga and will maintain. Patient is to follow up in 4 months with repeat labs. This visit required 30 minutes of which >50% was spent directly counseling and educating patientand/or family/caretakers on the diagnosis and POC. - Renal Function Panel; Future - PTH Intact w/ Calcium; Future Diabetes mellitus with renal manifestations, type II or unspecified type, uncontrolled ([facility]) Goal A1C to be less than 7 Well controlled with current A1C 6.2 Essential (primary) hypertension Goal BP to be less than 130/80 Improved and is currently on hydralazine 50 mg TID that was changed at prior visit. Patient will continue to monitor at home readings and advise if sustained elevation. Home readings within goal range. Anemia in chronic kidney disease Stable and no indication for MARGARETH. Maintain oral iron - CBC (Includes Diff/PLT); Future - Iron And TIBC; Future - Ferritin; Future Atrophy of kidney ROSIE HERNANDEZ NP documented in this encounter Plan of Treatment Upcoming Encounters Date Type Department Care Team ([facility] st Contact Info) Description 09/23/2024 3:40 PM POWER ELECTRONICS RESEARCH ENGINEER Office Visit [facility] [address] [facility] [address] [place] [address] Rosie Hernandez NP [address] [address] Scheduled Orders Name Type Priority Associated Diagnoses Orde r Schedule CBC (Includes Diff/PLT) Lab Routine Anemia in chronic kidney disease Expected: 12/04/2023, Expires: 09/04/2024 Renal Function Panel Lab Routine Chronic kidney disease, Stage IV (severe) ([facility]) Expected: 12/04/2023, Expires: 09/04/2024 Iron And TIBC Lab Routine Anemia in chronic kidney disease Expected: 12/04/2023, Expires: 09/04/2024 Ferritin Lab Routine Anemia in chronic kidney disease Expected: 12/04/2023, Expires: 09/04/2024 PTH Intact w/ Calcium Lab Routine Chronic kidney disease, Stage IV (severe) ([facility]) Expected: 12/04/2023, Expires: 09/04/2024 documented as of this encounter Visit Diagnoses Diagnosis Chronic kidney disease, Stage IV (severe) ([facility] Primary Chronic kidney disease, Stage IV (severe) Diabetes mellitus with renal manifestations, type II or unspecified type, uncontrolled ([facility]) Diabetes mellitus with renal manifestations, type II or unspecified type, uncontrolled Essential (primary) hypertension Anemia in chronic kidney disease Atrophy of kidney documented in this encounter Care Teams General Office Assistant Relationship Specialty Start Date End Date Jonatan Worley MD [address] [place] [address] PCP - General 06/06/21 documented as of this encounter
--- OUTSIDE RECORDS SUMMARY | 2024-08-29 03:47 | XMS_ITS | Encounter Summary ---
Author Organization [facility] Il[facility] p[facility]en Address [address] [place] [address] Phone Care Team Providers Care Line Repairer Tower Name Role Phone Jonatan Worley MD Primary Care Provider [phone] Reason for Visit * Reason Comments CKD Encounter Details Date Type Department Care Team ([facility] st Contact Info) Description 01/01/2024 10:00 AM CDT Office Visit [facility] [address] [facility] [address] [place] [address] Rosie Hernandez NP [address] [address] Chronic kidney disease, Stage IV (severe) (CMS-HCC) (Primary Dx); Diabetes mellitus with renal manifestations, type II or unspecified type, uncontrolled (CMS-HCC); Essential (primary) hypertension; Anemia in chronic kidney disease Social History Tobacco Use [...] Sign Reading Time Taken Comments Blood Pressure 126/72 01/01/2024 10:15 AM CDT Pulse 69 01/01/2024 10:15 AM CDT Temperature - - Respiratory Rate - - Oxygen Saturation - - Inhaled Oxygen Concentration - - Weight 103 kg (227 lb) 01/01/2024 10:15 AM CDT Height 170.2 cm (5' 7 ) 01/01/2024 10:15 AM CDT Body Mass Index 35.55 01/01/2024 10:15 AM CDT documented in this encounter Progress Notes * Rosie Hernandez NP - 01/01/2024 10:00 AM CDT Patient: Arely Ernandez Birthdate: 1960 PCP: Jonatan Worley MD Reason for visit: Visit Date: 01/01/2024 CHIEF COMPLAINT CKD INTERIM HISTORY Arely Ernandez is a 63 y.o. female presenting with a past medical history of DM that is controlled with oral medications, glaucoma, HTN, and CKD IV. Presents today with her for follow up. States she is doing well. Has some swelling which is at baseline to BLE. Anemia and follows with Dr. Ontiveros. She reports she was on oral iron but it was stopped. Most recent note from hematology recommends continuation. Patient was advised at today's appt to restart. No SOB or NVD. Denies any urinary complaints. No incontinence or nocturia. PAST MEDICAL HISTORY Past Medical History: Diagnosis Date Acute renal failure syndrome (CMS-HCC) 06/05/2021 Anemia in chronic kidney disease 05/27/2022 Chronic kidney disease Diabetes mellitus without mention of complication, type II or unspecified type, not stated as uncontrolled (CMS-HCC) Essential hypertension History of nonproliferative diabetic retinopathy Other and unspecified hyperlipidemia PAST SURGICAL HISTORY No past surgical history on file. SOCIAL HISTORY Social History Tobacco Use Smoking status: Never Smokeless tobacco: Never Vaping Use Vaping status: Never Used Substance Use Topics Alcohol use: Never Drug [...] (one) time each day Cholecalciferol 50 MCG (1999 UT) capsule Take 2,000 Units by mouth 1 (one) time each day 30 capsule3 cyanocobalamin (VITAMIN B-12) 1000 MCG tablet Take 1,000 mcg by mouth 1 (one) time each day Farxiga 10 MG tablet Take 1 tablet by mouth once daily 30 tablet 0 glimepiride (AMARYL) 2 MG tablet Take 2 mg by mouth 1 (one) time each day glimepiride (AMARYL) 4 MG tablet Take 4 mg by mouth 1 (one) time each day hydrALAZINE (APRESOLINE) 50 MG tablet TAKE 1 TABLET BY MOUTH IN THE MORNING AND IN THE EVENING AND 1 BEFORE BEDTIME 90 tablet 0 metoprolol succinate XL (TOPROL-XL) 100 MG 24 [...] for cough and shortness of breath. Cardiovascular: Positive for leg swelling. Negative for chest pain and palpitations. Gastrointestinal: Negative for abdominal distention, abdominal pain, [...] for confusion and sleep disturbance. VITALS BP 126/72 (BP Location: Left arm) Pulse 69 Ht 5' 7 (1.702 m) Wt 227 lb (103 kg) BMI 35.55 kg/m?? BSA 2.21 m?? PHYSICAL EXAM Physical Exam Constitutional: Appearance: [...] Palpations: Abdomen is soft. Musculoskeletal: General: Edema (1+ pitting to BLE) present. Normal range of motion. Skin: General: Skin is warm and dry. Neurological: Mental Status: She is alert and oriented to person, place, and time. Psychiatric: Mood and Affect: Mood and affect normal. ASSESSMENT AND PLAN Assessment/Plan Diagnoses and all orders for this visit: Chronic kidney disease, Stage IV (severe) ([facility]) Renal function continues to slowly worsen. I advised at prior appt that she needed renal education and she was going to call to schedule. I again discussed the need today and agrees to come this month to discuss. Discussed that she is a candidate based on GFR to consider transplant but BMI may be a barrier. Will further discuss with patient at education appt. Edema at baseline. No current diuretic and patient is not wishing to consider at this time because she reports it to be her normal and resolves overnight. She is aware of symptoms to monitor for and to notify office of any changes in health. This visit required 30 minutes of which >50% was spent directly counseling and educating patientand/or family/caretakers on the diagnosis and POC. - PTH Intact w/ Calcium; Future - Renal Function Panel; Future - Vitamin D, 25-Hydroxy; Future Diabetes mellitus with renal manifestations, type II or unspecified type, uncontrolled ([facility]) Goal A1C to be less than 7 Serum glucose shows elevation but most recent A1C at goal. Essential (primary) hypertension Goal BP to be less than 130/80 BP stable and will maintain medications Metabolic Acidosis Renal related complication and will start sodium bicarbonate. Anemia in chronic kidney disease Was not currently on oral iron and advised to restart. She is following with hematology and will defer further management to them. - CBC (Includes Diff/PLT); Future - Ferritin; Future - Iron And TIBC; Future Other orders - ferrous sulfate 325 (65 Fe) MG tablet; Take 1 tablet (325 mg total) by mouth 1 (one) time each day with breakfast - sodium bicarbonate 650 MG tablet; Take 1 tablet (650 mg total) by mouth in the morning and 1 tablet (650 mg total) in the evening and 1 tablet (650 mg total) before bedtime. ROSIE HERNANDEZ NP documented in this encounter Plan of Treatment Upcoming Encounters Date Type Department Care Team (Late st Contact Info) Description 09/23/2024 3:40 PM FINISHING MACHINE TENDER Office Visit [facility] [address] [facility] [address] [place] [address] Rosie Hernandez NP [address] [address] Scheduled Orders Name Type Priority Associated Diagnoses Orde r Schedule CBC (Includes Diff/PLT) Lab Routine Anemia in chronic kidney disease Expected: 04/02/2024, Expires: 12/31/2024 Ferritin Lab Routine Anemia in chronic kidney disease Expected: 04/02/2024, Expires: 12/31/2024 Iron And TIBC Lab Routine Anemia in chronic kidney disease Expected: 04/02/2024, Expires: 12/31/2024 PTH Intact w/ Calcium Lab Routine Chronic kidney disease, Stage IV (severe) ([facility]) Expected: 04/02/2024, Expires: 12/31/2024 Renal Function Panel Lab Routine Chronic kidney disease, Stage IV (severe) ([facility]) Expected: 04/02/2024, Expires: 12/31/2024 Vitamin D, 25-Hydroxy Lab Routine Chronic kidney disease, Stage IV (severe) ([facility]) Expected: 04/02/2024, Expires: 12/31/2024 documented as of this encounter Visit Diagnoses Diagnosis Chronic kidney disease, Stage IV (severe) ([facility])- Primary Chronic kidney disease, Stage IV (severe) Diabetes mellitus with renal manifestations, type II or unspecified type, uncontrolled ([facility]) Diabetes mellitus with renal manifestations, type II or unspecified type, uncontrolled Essential (primary) hypertension Anemia in chronic kidney disease documented in this encounter Care Teams Line Repairer Tower Relationship Specialty Start Date End Date Jonatan Worley MD [address] [place] [id number] PCP - General 06/06/21 documented as of this encounter
--- OUTSIDE RECORDS SUMMARY | 2024-08-29 03:47 | XMS_ITS | Encounter Summary ---
Author Organization [facility] Ilana petersen Address [address] [place] [address] Phone Care Team Providers Care Disc Pad Grinding Machine Feeder Name Role Phone Jonatan Worley MD Primary Care Provider [phone] Reason for Visit * Reason Comments CKD Encounter Details Date Type Department Care Team ([facility] st Contact Info) Description 02/06/2023 10:40 AM CDT Office Visit [facility] [address] [facility] [address] [place] [address] Rosie Hernandez SECRETARY BOOK KEEPER [address] [address] Chronic kidney disease, Stage IV (severe) (CMS-HCC) (Primary Dx); Essential (primary) hypertension; Diabetes mellitus with renal manifestations, type II or unspecified type, uncontrolled (CMS-HCC); Atrophy of kidney; Anemia in chronic kidney disease Social History [...] Sign Reading Time Taken Comments Blood Pressure 182/98 02/06/2023 11:05 AM CDT Pulse 68 02/06/2023 10:45 AM CDT Temperature - - Respiratory Rate - - Oxygen Saturation - - Inhaled Oxygen Concentration - - Weight 96.6 kg (213 lb) 02/06/2023 10:45 AM CDT Height 170.2 cm (5' 7 ) 02/06/2023 10:45 AM CDT Body Mass Index 33.36 02/06/2023 10:45 AM CDT documented in this encounter Progress Notes * Rosie Hernandez NP - 02/06/2023 10:40 AM CDT Patient: Arely Ernandez Birthdate: 1960 PCP: Jonatan Worley MD Reason for visit: Visit Date: 02/06/2023 CHIEF COMPLAINT CKD INTERIM HISTORY Arely Ernandez is a 62 y.o. female presenting with a past medical history of DM that is mostly controlled with oral medication, glaucoma, and HTN. She has a history of proteinuria as high as 4.4 gand is currently 2.9 g. Patient and spouse expressed concerns about dialysis and I have advised renal function is currentlystable without any symptoms and dialysis is not indicated currently but we are following closely tomonitor labs and symptoms. She is having high BP readings and home readings are not much better than 150 SBP. Denies any SOB or NVD. Swelling at baseline. No urinary complaints. PAST MEDICAL HISTORY Past Medical History: Diagnosis Date ??? Acute renal failure syndrome (CMS-HCC) 06/05/2021 ??? Anemia in chronic kidney disease 05/27/2022 ??? Diabetes mellitus without mention of complication, type II or unspecified type, not stated as uncontrolled (CMS-HCC) ??? Essential hypertension ??? History of nonproliferative diabetic retinopathy ??? Other and unspecified hyperlipidemia PAST SURGICAL HISTORY History reviewed. No pertinent surgical history. SOCIAL HISTORY Social History Tobacco Use ??? Smoking status: Never ??? Smokeless tobacco: Never Vaping Use ??? Vaping Use: Never used Substance Use Topics ??? Alcohol use: Never ??? Drug use: Never FAMILY HISTORY Family History Problem Relation Age of Onset ??? Heart disease Mother ??? Diabetes Father ??? Heart disease Father ??? Hypertension Father ??? Diabetes Brother MEDICATIONS Current Outpatient Medications Medication Sig Dispense Refill ??? amLODIPine (NORVASC) 10 MG tablet Take 10 mg by mouth 1 (one) time each day ??? aspirin 81 MG chewable tablet Chew 81 mg 1 (one) time each day ??? Dapagliflozin Propanediol (Farxiga) 10 MG tablet Take 1 tablet by mouth 1 (one) time each day 30 tablet 2 ??? ergocalciferol (VITAMIN D-2) 1.25 MG (42727 UT) capsule Take 50,000 Units by mouth 1 (one) timeper week ??? glimepiride (AMARYL) 2 MG tablet Take 2 mg by mouth 1 (one) time each day before breakfast ??? metoprolol succinate XL (TOPROL-XL) 100 MG 24 hr tablet Take 100 mg by mouth 1 (one) time each day ??? rosuvastatin (CRESTOR) 5 MG tablet Take 5 mg by mouth 1 (one) time each day ??? Cholecalciferol 50 MCG (2000 UT) capsule Take 2,000 Units by mouth 1 (one) time each day 30 capsule 3 ??? hydrALAZINE (APRESOLINE) 25 MG tablet Take 1 tablet (25 mg total) by mouth in the morning and 1tablet (25 mg total) in the evening and 1 tablet (25 mg total) before bedtime. 90 tablet 3 No current facility-administered medications for this visit. ALLERGIES Allergies Allergen Reactions ??? Penicillins REVIEW OF SYSTEMS Review of Systems [...] for confusion and sleep disturbance. VITALS BP (!) 182/98 (BP Location: Right arm, Patient Position: Sitting, BP Cuff Size: Adult) Comment (BP Location): javier Pulse 68 Ht 5' 7 (1.702 m) Wt 213 lb (96.6 kg) BMI 33.36 kg/m?? BSA 2.14 m?? PHYSICAL EXAM Physical Exam Constitutional: Appearance: She is well-developed and well-nourished. HENT: Head: Normocephalic and atraumatic. Right Ear: External ear normal. Left Ear: External ear normal. Nose: Nose normal. Mouth/Throat: Mouth: Oropharynx is clear and moist. Eyes: Extraocular Movements: EOM normal. Conjunctiva/sclera: Conjunctivae normal. Pupils: Pupils are equal, round, and reactive to light. Cardiovascular: Rate and Rhythm: Normal rate and regular rhythm. Heart sounds: Normal heart sounds. Pulmonary: Effort: Pulmonary effort is normal. Breath sounds: Normal breath sounds. Abdominal: General: Bowel sounds are normal. Palpations: Abdomen is soft. Musculoskeletal: General: Edema (trace pitting BLE) present. Normal range of motion. Cervical back: Normal range of motion. Skin: General: Skin is warm and dry. Neurological: Mental Status: She is alert and oriented to person, place, and time. Psychiatric: Mood and Affect: Mood and affect normal. ASSESSMENT AND PLAN Assessment/Plan Diagnoses and all orders for this visit: Chronic kidney disease, Stage IV (severe) ([facility]) Patient was concerned about dialysis and we discussed current POC and health state. Discussed that renal disease is progressive and goals include maintaining tight control of BP and blood sugar, maintain hydration, and avoid NSAIDS to maintain as much stability in function. It is noted that patient is on farxiga and renal function has been stable since initiation. No indication at this time to stop and encouraged hydration. Plan to discuss renal education at follow up appt. Will continue to follow patient every 3 months with repeat labs. This visit required 40 minutes of which >50% was spent directly counseling and educating patientand/or family/caretakers on the diagnosis and POC. - Urinalysis, Routine; Future - CBC (Includes Diff/PLT); Future - PTH Intact w/ Calcium; Future - Renal Function Panel; Future - Albumin/Creatinine Ratio, Random, Urine ([facility] Only); Future Essential (primary) hypertension Goal BP to be less than 130/80 Not well controlled currently. Has room for adjustments in current medications. At this time will increase hydralazine to 25 mg TID. Patient agrees to monitor at home readings and call the office next week with readings. Can further adjust as needed. Diabetes mellitus with renal manifestations, type II or unspecified type, uncontrolled ([facility]) Goal A1C to be less than 7 Reports good control with at home readings. Atrophy of kidney Anemia in chronic kidney disease Stable at this time. No indication for MARGARETH Other orders - hydrALAZINE (APRESOLINE) 25 MG tablet; Take 1 tablet (25 mg total) by mouth in the morning and 1 tablet (25 mg total) in the evening and 1 tablet (25 mg total) before bedtime. - Cholecalciferol 50 MCG (2000 UT) capsule; Take 2,000 Units by mouth 1 (one) time each day ROSIE HERNANDEZ NP documented in this encounter Plan of Treatment Upcoming Encounters Date Type Department Care Team ([facility] st Contact Info) Description 09/23/2024 3:40 PM HOOP MAKER MACHINE Office Visit [facility] [address] [facility] [address] [place] [address] Rosie Hernandez NP [address] [address] Scheduled Orders Name Type Priority Associated Diagnoses Orde r Schedule Urinalysis, Routine Lab Routine Chronic kidney disease, Stage IV (severe) ([facility]) Expected: 05/09/2023, Expires: 02/07/2024 CBC (Includes Diff/PLT) Lab Routine Chronic kidney disease, Stage IV (severe) ([facility]) Expected: 05/09/2023, Expires: 02/07/2024 PTH Intact w/ Calcium Lab Routine Chronic kidney disease, Stage IV (severe) ([facility]) Expected: 05/09/2023, Expires: 02/07/2024 Renal Function Panel Lab Routine Chronic kidney disease, Stage IV (severe) ([facility]) Expected: 05/09/2023, Expires: 02/07/2024 Albumin/Creatinine Ratio, Random, Urine ([facility] Only) Lab Routine Chronic kidney disease, Stage IV (severe) ([facility]) Expected: 05/09/2023, Expires: 02/07/2024 documented as of this encounter Visit Diagnoses Diagnosis Chronic kidney disease, Stage IV (severe) ([facility])- Primary Chronic kidney disease, Stage IV (severe) Essential (primary) hypertension Diabetes mellitus with renal manifestations, type II or unspecified type, uncontrolled ([facility]) Diabetes mellitus with renal manifestations, type II or unspecified type, uncontrolled Atrophy of kidney Anemia in chronic kidney disease documented in this encounter Care Teams Disc Pad Grinding Machine Feeder Relationship Specialty Start Date End Date Jonatan Worley MD [address] [place] [id number] PCP - General 06/06/21 documented as of this encounter
--- OUTSIDE RECORDS SUMMARY | 2024-08-29 03:47 | XMS_ITS | Encounter Summary ---
Author Organization [facility] Ilana petersen Address [address] [place] [address] Phone Care Team Providers Care Nursery School Attendant Name Role Phone Jonatan Worley MD Primary Care Provider [phone] Reason for Visit * Reason Comments CKD Encounter Details Date Type Department Care Team ([facility] st Contact Info) Description 05/15/2023 11:20 AM CDT Office Visit [facility] [address] [facility] 1 [place] [address] Rosie Hernandez, PET GROOMER [address] [address] Chronic kidney disease, Stage IV (severe) (CMS-HCC) (Primary Dx); Essential (primary) hypertension; Diabetes mellitus with renal manifestations, type II or unspecified type, uncontrolled (CMS-HCC); Anemia in chronic kidney disease; Atrophy of [...] Sign Reading Time Taken Comments Blood Pressure 168/82 05/15/2023 11:19 AM CDT Pulse - - Temperature - - Respiratory Rate - - Oxygen Saturation - - Inhaled Oxygen Concentration - - Weight 102 kg (225 lb) 05/15/2023 11:19 AM CDT Height 170.2 cm (5' 7 ) 05/15/2023 11:19 AM CDT Body Mass Index 35.24 05/15/2023 11:19 AM CDT documented in this encounter Progress Notes * Rosie Hernandez NP - 05/15/2023 11:20 AM CDT Patient: Arely Ernandez Birthdate: 1960 PCP: Jonatan Worley MD Reason for visit: Visit Date: 05/15/2023 CHIEF COMPLAINT CKD INTERIM HISTORY Arely Ernandez is a 62 y.o. female presenting with a past medical history of DM that is mostly controlled with oral medications, glaucoma, HTN and CKD IV. Patient presents with her today for follow up. She reports she is doing well. No complaints but does admit to some swelling. Has good urine output and denies any incontinence. BP continues to be elevated and they have not reported home readings until today. Denies any SOB PAST MEDICAL HISTORY Past Medical History: Diagnosis Date Acute renal failure syndrome ([facility]) 06/05/2021 Anemia in chronic kidney disease 05/27/2022 Diabetes mellitus without mention of complication, type II or unspecified type, not stated as uncontrolled ([facility]) Essential hypertension History of nonproliferative diabetic retinopathy [...] by mouth once daily 30 tablet 4 glimepiride (AMARYL) 2 MG tablet Take 2 mg by mouth 1 (one) time each day before breakfast metoprolol succinate XL (TOPROL-XL) 100 MG 24 hr tablet Take 100 mg by mouth 1 (one) time each day rosuvastatin (CRESTOR) 5 MG tablet Take 5 mg by mouth 1 (one) time each day hydrALAZINE (APRESOLINE) 50 MG tablet Take 1 tablet (50 mg total) by mouth in the morning and 1 tablet (50 mg total) in the evening and 1 tablet (50 mg total) before bedtime. 90 tablet 4 No current facility-administered medications for this visit. ALLERGIES Allergies Allergen Reactions Penicillins REVIEW OF SYSTEMS Review of Systems Constitutional: Positive for fatigue. Negative for activity change and appetite change. HENT: Negative for hearing loss. Eyes: Negative [...] for confusion and sleep disturbance. VITALS BP 168/82 (BP Location: Left arm, Patient Position: Sitting, BP Cuff Size: Adult) Ht 5' 7 (1.702m) Wt 225 lb (102 kg) BMI 35.24 kg/m?? BSA 2.2 m?? PHYSICAL EXAM Physical Exam Constitutional: Appearance: [...] normal. Palpations: Abdomen is soft. Musculoskeletal: General: Normal range of motion. Cervical back: Normal range of motion. Skin: General: Skin is warm and dry. Neurological: Mental Status: She is alert and oriented to person, place, and time. Psychiatric: Mood and Affect: Mood and affect normal. ASSESSMENT AND PLAN Assessment/Plan Diagnoses and all orders for this visit: Chronic kidney disease, Stage IV (severe) ([facility]) Renal function stable at advanced stage. We discussed need for renal education and they wish to wait until after the holidays. Will further discuss at follow up appt. In detail conversation regarding need for tight BP control and will adjust medication as indicated below. Will see her in follow up in 3-4 months with repeat labs. This visit required 35 minutes of which >50% was spent directly counseling and educating patientand/or family/caretakers on the diagnosis and POC. - PTH Intact w/ Calcium; Future - Renal Function Panel; Future Essential (primary) hypertension Goal BP to be less than 130/80 Not at goal and home readings not at goal either. Will increased hydralazine to 50 mg TID. Patient to continue to monitor at home readings and notify the office of any sustained elevation. Diabetes mellitus with renal manifestations, type II or unspecified type, uncontrolled ([facility]) Goal A1C to be less than 7 Currently controlled with oral medications. Unknown A1C Anemia in chronic kidney disease No indication at this time for MARGARETH. Was recently started on oral iron supplement. Will monitor labsat follow up. Discussed possible need for MARGARETH in future. - CBC (Includes Diff/PLT); Future - Ferritin; Future - Iron And TIBC; Future Atrophy of kidney Other orders - hydrALAZINE (APRESOLINE) 50 MG tablet; Take 1 tablet (50 mg total) by mouth in the morning and 1 tablet (50 mg total) in the evening and 1 tablet (50 mg total) before bedtime. ROSIE HERNANDEZ NP documented in this encounter Plan of Treatment Upcoming Encounters Date Type Department Care Team ([facility] st Contact Info) Description 09/23/2024 3:40 PM LEAN COACH Office Visit [facility] [address] [facility] 1 [place] [address] Rosie Hernandez NP [address] [facility] Juan [address] [place] [address] Scheduled Orders Name Type Priority Associated Diagnoses Orde r Schedule CBC (Includes Diff/PLT) Lab Routine Anemia in chronic kidney disease Expected: 08/14/2023, Expires: 05/15/2024 Ferritin Lab Routine Anemia in chronic kidney disease Expected: 08/14/2023, Expires: 05/15/2024 Iron And TIBC Lab Routine Anemia in chronic kidney disease Expected: 08/14/2023, Expires: 05/15/2024 PTH Intact w/ Calcium Lab Routine Chronic kidney disease, Stage IV (severe) ([facility]) Expected: 08/14/2023, Expires: 05/15/2024 Renal Function Panel Lab Routine Chronic kidney disease, Stage IV (severe) ([facility]) Expected: 08/14/2023, Expires: 05/15/2024 documented as of this encounter Visit Diagnoses Diagnosis Chronic kidney disease, Stage IV (severe) ([facility] Primary Chronic kidney disease, Stage IV (severe) Essential (primary) hypertension Diabetes mellitus with renal manifestations, type II or unspecified type, uncontrolled ([facility]) Diabetes mellitus with renal manifestations, type II or unspecified type, uncontrolled Anemia in chronic kidney disease Atrophy of kidney documented in this encounter Care Teams Nursery School Attendant Relationship Specialty Start Date End Date Jonatan Worley MD [address] [place] [address] PCP - General 06/06/21 documented as of this encounter
--- OUTSIDE RECORDS SUMMARY | 2024-08-29 03:47 | XMS_ITS | Encounter Summary ---
Author Organization [facility] Ilana utialmas Address [address] [place] [address] Phone Care Team Providers Care Treasury Analyst Name Role Phone Jonatan Worley MD Primary Care Provider [phone] Reason for Visit * Reason Comments Med Refill Encounter Details Date Type Department Care Team (Late st Contact Info) Description 02/07/2024 Refill [facility] [address] [phone] Raji Shook MD [address] [address] Diabetes mellitus with renal manifestations, type II or unspecified type, uncontrolled ([facility]) Social History Tobacco Use Types Packs/Day Years [...] st Contact Info) Description 09/23/2024 3:40 PM GRADES 9 12 TUTOR Office Visit [facility] [address] [facility] 1 [place] [address] Rosa Delgado NP [address] [facility] 1 [place] [address] documented as of this encounter Visit Diagnoses Diagnosis Diabetes mellitus with renal manifestations, type II or unspecified type, uncontrolled ([facility]) Diabetes mellitus with renal manifestations, type II or unspecified type, uncontrolled documented in this encounter Care Teams Treasury Analyst Relationship Specialty Start Date End Date Jonatan Worley MD [address] [place] [address] PCP - General 06/06/21 documented as of this encounter
--- OUTSIDE RECORDS SUMMARY | 2024-08-29 03:47 | XMS_ITS | Encounter Summary ---
Author Organization [facility] Ilnaa utialmas Address [address] [place] [address] Phone Care Team Providers Care Recording Clerk Name Role Phone Jonatan Worley MD Primary Care Provider [phone] Reason for Visit * Reason Comments Med Refill Encounter Details Date Type Department Care Team ([facility] Contact Info) Description 2023 Refill [facility] [address] [place] [phone] Rosa Delgado NP [address] [phone] Social History Tobacco Use Types Packs/Day Years [...] Upcoming Encounters Date Type Department Care Team ([facility] Contact Info) Description 09/23/2024 3:40 PM GRADING MACHINE OPERATOR Office Visit [facility] [address] [phone] Rosa Delgado NP [address] [phone] documented as of this encounter Visit Diagnoses Not on filedocumented in this encounter Care Teams Recording Clerk Relationship Specialty Start Date End Date Jonatan Worley MD [address] [place] [address] PCP - General 06/06/21 documented as of this encounter
--- OUTSIDE RECORDS SUMMARY | 2024-08-29 03:47 | XMS_ITS | Encounter Summary ---
Author Organization [facility] Ilana petersen Address [address] [place] [phone] Phone Care Team Providers Care Senior Research Scientist Name Role Phone Jonatan Worley MD Primary Care Provider [phone] Reason for Visit * Reason Onset Date Comments Med Refill 01/21/2024 Encounter Details Date Type Department Care Team ([facility] Contact Info) Description 01/21/2024 Refill [facility] [address] [address] Preethi Almendarez RN Social History Tobacco Use Types Packs/Day Years [...] Upcoming Encounters Date Type Department Care Team ([facility] Contact Info) Description 09/23/2024 3:40 PM REHABILITATION COUNSELLOR Office Visit [facility] [address] [address] Rosa Delgado NP [address] [address] documented as of this encounter Visit Diagnoses Not on filedocumented in this encounter Care Teams Senior Research Scientist Relationship Specialty Start Date End Date Jonatan Worley MD [address] [place] [address] PCP - General 06/06/21 documented as of this encounter
--- OUTSIDE RECORDS SUMMARY | 2024-08-29 03:47 | XMS_ITS | Encounter Summary ---
Author Organization [facility] Ilana petersen Address [address] [place] [address] Phone Care Team Providers Care Epoxy Specialist Name Role Phone Jonatan Worley MD Primary Care Provider [phone] Reason for Visit * Reason Comments Med Refill Encounter Details Date Type Department Care Team (Late Contact Info) Description 10/09/2023 Refill [facility] [address] [phone] Rosa Delgado MOTOCROSS RACER [address] [address] Diabetes mellitus with renal manifestations, type II or unspecified type, uncontrolled ([facility]) Social History Tobacco Use Types Packs/Day Years [...] (Late Contact Info) Description 09/23/2024 3:40 PM ANIMAL CARE SUPERVISOR Office Visit [facility] [address] [facility] 1 [place], [place] [phone] Rosa Delgado MOTOCROSS RACER [address] [phone] documented as of this encounter Visit Diagnoses Diagnosis Diabetes mellitus with renal manifestations, type II or unspecified type, uncontrolled ([facility]) Diabetes mellitus with renal manifestations, type II or unspecified type, uncontrolled documented in this encounter Care Teams Epoxy Specialist Relationship Specialty Start Date End Date Jonatan Worley MD [address] [place] [address] PCP - General 06/06/21 documented as of this encounter
--- OUTSIDE RECORDS SUMMARY | 2024-08-29 03:47 | XMS_ITS | Encounter Summary ---
Author Organization [facility] Ilana petersen Address [address] [place] [address] Phone Care Team Providers Care Candlemaking Laborer Name Role Phone Jonatan Worley MD Primary Care Provider [phone] Reason for Visit * Reason Comments Med Refill Encounter Details Date Type Department Care Team (Late Contact Info) Description 01/09/2024 Refill [facility] [address] [phone] Rosa Delgado FREIGHT MANAGER [address] [address] Diabetes mellitus with renal manifestations, type II or unspecified type, uncontrolled ([facility]) Social History Tobacco Use Types Packs/Day [...] (Late Contact Info) Description 09/23/2024 3:40 PM STRANNER Office Visit [facility] [address] [facility] 1 [place], [place] [phone] Rosa Delgado FREIGHT MANAGER [address] [phone] documented as of this encounter Visit Diagnoses Diagnosis Diabetes mellitus with renal manifestations, type II or unspecified type, uncontrolled ([facility]) Diabetes mellitus with renal manifestations, type II or unspecified type, uncontrolled documented in this encounter Care Teams Candlemaking Laborer Relationship Specialty Start Date End Date Jonatan Worley MD [address] [place] [address] PCP - General 06/06/21 documented as of this encounter
--- OUTSIDE RECORDS SUMMARY | 2024-08-29 03:47 | XMS_ITS | Encounter Summary ---
Author Organization [facility] Ilana petersen Address [address] [place] [address] Phone Care Team Providers Care Diesel Engine I Pipe Fitter Name Role Phone Jonatan Worley MD Primary Care Provider [phone] Reason for Visit * Reason Comments Med Refill Encounter Details Date Type Department Care Team (Late Contact Info) Description 02/10/2023 Refill [facility] [address] [phone] Rosa Delgado ENTERPRISE SYSTEMS ENGINEER [address] [address] Diabetes mellitus with renal manifestations, type II or unspecified type, uncontrolled ([facility]) Social History Tobacco Use Types Packs/Day Years [...] (Late Contact Info) Description 09/23/2024 3:40 PM WREATH MACHINE TENDER Office Visit [facility] 5003 [facility] 1 [place], [place] [phone] Rosa Delgado ENTERPRISE SYSTEMS ENGINEER [address] [phone] documented as of this encounter Visit Diagnoses Diagnosis Diabetes mellitus with renal manifestations, type II or unspecified type, uncontrolled ([facility]) Diabetes mellitus with renal manifestations, type II or unspecified type, uncontrolled documented in this encounter Care Teams Diesel Engine I Pipe Fitter Relationship Specialty Start Date End Date Jonatan Worley MD [address] [place] [address] PCP - General 06/06/21 documented as of this encounter
--- OUTSIDE RECORDS SUMMARY | 2024-08-29 03:47 | XMS_ITS | Encounter Summary ---
Author Organization [facility] Ilana utialmas Address [address] [place] [address] Phone Care Team Providers Care Linux Network Systems Administrator Name Role Phone Jonatan Worley MD Primary Care Provider [phone] Reason for Visit * Reason Comments Med Refill Encounter Details Date Type Department Care Team ([facility] Contact Info) Description 05/23/2024 Refill [facility] [address] [place] [phone] Rosa Delgado NP [address] [phone] Social History Tobacco Use Types Packs/Day Years [...] Department Care Team ([facility] Contact Info) Description 09/23/2024 3:40 PM STEAMBOAT PILOT Office Visit [facility] 5003 [facility] 1 [place], [place] [phone] Rosa Delgado NP [address] [phone] documented as of this encounter Visit Diagnoses Not on filedocumented in this encounter Care Teams Linux Network Systems Administrator Relationship Specialty Start Date End Date Jonatan Worley MD [address] [place] [address] PCP - General 06/06/21 documented as of this encounter
--- OUTSIDE RECORDS SUMMARY | 2024-08-29 03:47 | XMS_ITS | Encounter Summary ---
Author Organization [facility] Ilana petersen Address [address] [place] [address] Phone Care Team Providers Care Equity Holder Name Role Phone Jonatan Worley MD Primary Care Provider [phone] Reason for Visit * Reason Comments Med Refill Encounter Details Date Type Department Care Team (Late Contact Info) Description 12/10/2023 Refill [facility] [address] [phone] Rosa Delgado PRECISION AIRCRAFT SYSTEMS ASSEMBLER [address] [address] Diabetes mellitus with renal manifestations, type II or unspecified type, uncontrolled ([facility]) Social History Tobacco Use Types [...] (Late Contact Info) Description 09/23/2024 3:40 PM CONDEMNATION ENGINEER Office Visit [facility] 5003 [facility] 1 [place], [place] [phone] Rosa Delgado PRECISION AIRCRAFT SYSTEMS ASSEMBLER [address] [phone] documented as of this encounter Visit Diagnoses Diagnosis Diabetes mellitus with renal manifestations, type II or unspecified type, uncontrolled ([facility]) Diabetes mellitus with renal manifestations, type II or unspecified type, uncontrolled documented in this encounter Care Teams Equity Holder Relationship Specialty Start Date End Date Jonatan Worley MD [address] [place] [address] PCP - General 06/06/21 documented as of this encounter
--- OUTSIDE RECORDS SUMMARY | 2024-08-29 03:47 | XMS_ITS | Encounter Summary ---
Author Organization [facility] Ilana utialmas Address [address] [place] [address] Phone Care Team Providers Care Electrical Systems Design Engineer Name Role Phone Jonatan Worley MD Primary Care Provider [phone] Reason for Visit * Reason Comments Med Refill Encounter Details Date Type Department Care Team ([facility] Contact Info) Description 11/13/2023 Refill [facility] [address] [place] [phone] Rosa Delgado NP [address] [phone] Social History Tobacco Use Types Packs/Day Years [...] Upcoming Encounters Date Type Department Care Team ([facility] Contact Info) Description 09/23/2024 3:40 PM OCCUPATIONAL THERAPIST'S ASSISTANT Office Visit [facility] [address] [phone] Rosa Delagdo NP [address] [phone] documented as of this encounter Visit Diagnoses Not on filedocumented in this encounter Care Teams Electrical Systems Design Engineer Relationship Specialty Start Date End Date Jonatan Worley MD [address] [place] [address] PCP - General 06/06/21 documented as of this encounter
--- OUTSIDE RECORDS SUMMARY | 2024-08-29 03:47 | XMS_ITS | Encounter Summary ---
Author Organization [facility] Ilana petersen Address [address] [place] [address] Phone Care Team Providers Care Medical Record Administrator Name Role Phone Jonatan Worley MD Primary Care Provider [phone] Encounter Details Date Type Department Care Team (Latest Contact Info) Description 01/13/2024 12:00 PM CDT Clinical Support [facility] 5003 [facility] 1 [place] [address] Rosa Delgado NP [address] [address] Chronic kidney disease, Stage IV (severe) (CMS-HCC) (Primary Dx) Social History Tobacco Use Types [...] on file documented as of this encounter Progress Notes * Rosa Delgado NP - 01/13/2024 12:00 PM CDT Patient presents today for renal education. Her accompanied her to today's visit and participates in questions. Oral pre and post test performed. Discussed modalities including hemodialysis, peritoneal dialysis, medical management, and transplant. Patient is to notify office if any changes in health take place prior to follow up with carpet tile layer. This includes any changes in urinary habits, shortness of breath, loss of appetite, weight gain or loss, or any edema. Patient has not indicated a modality and states she will discuss with family and further review written materials. She has had 3 c-sections and traditional gallbladder incision. Central obesity but may not preclude option for PD. Would have to have further evaluation by general surgery which could be considered if patient is interested. She has a follow up appt scheduled and we will further discuss at that time. I have provided patient with my contact information for any further questions or concerns. Additionally, I have provided patient with handouts regarding modalities and contact information for local transplant facilities should the patient decide to contact. Total time spent: 50 minutes documented in this encounter Plan of Treatment Upcoming Encounters Date Type Department Care Team (Late st Contact Info) Description 09/23/2024 3:40 PM DRY CLEANING MACHINE OPERATOR HELPER Office Visit [facility] 5003 [facility] 1 [place] [address] [place] [address] [place] [phone] documented as of this encounter Visit Diagnoses Diagnosis Chronic kidney disease, Stage IV (severe) ([facility] Primary Chronic kidney disease, Stage IV (severe) documented in this encounter Care Teams Medical Record Administrator Relationship Specialty Start Date End Date Jonatan Worley MD [address] [place] [address] PCP - General 06/06/21 documented as of this encounter
--- OUTSIDE RECORDS SUMMARY | 2024-08-29 03:47 | XMS_ITS | Encounter Summary ---
Author Organization [facility] Ilana petersen Address [address] [place] [address] Phone Care Team Providers Care Executive Vice President Business Development Name Role Phone Jonatan Worley MD Primary Care Provider [phone] Reason for Visit * Reason Comments Med Refill Encounter Details Date Type Department Care Team (Late Contact Info) Description 11/08/2023 Refill [facility] [address] [phone] Rosa Delgado CHEF DE FROID [address] [address] Diabetes mellitus with renal manifestations, type II or unspecified type, uncontrolled ([facility]) Social History Tobacco Use Types Packs/Day [...] (Late Contact Info) Description 09/23/2024 3:40 PM PAPER GLUING OPERATOR Office Visit [facility] 5003 [facility] 1 [place], [place] [phone] Rosa Delgado CHEF DE FROID [address] [phone] documented as of this encounter Visit Diagnoses Diagnosis Diabetes mellitus with renal manifestations, type II or unspecified type, uncontrolled ([facility]) Diabetes mellitus with renal manifestations, type II or unspecified type, uncontrolled documented in this encounter Care Teams Executive Vice President Business Development Relationship Specialty Start Date End Date Jonatan Worley MD [address] [place] [address] PCP - General 06/06/21 documented as of this encounter
--- OUTSIDE RECORDS SUMMARY | 2024-08-29 03:47 | XMS_ITS | Encounter Summary ---
Author Organization [facility] Ilana petersen Address [address] [place] [address] Phone Care Team Providers Care Sales And Marketing Coordinator Name Role Phone Jonatan Worley MD Primary Care Provider [phone] Reason for Visit * Reason Comments CKD Encounter Details Date Type Department Care Team ([facility] st Contact Info) Description 05/20/2024 11:00 AM CDT Office Visit [facility] 5003 [facility] 1 [place] [address] Rosie Hernandez NP [address] [address] Chronic kidney disease, Stage IV (severe) (CMS-HCC) (Primary Dx); Diabetes mellitus with renal manifestations, type II or unspecified type, uncontrolled (CMS-HCC); Essential (primary) hypertension; Anemia in chronic kidney disease; Chronic metabolic acidosis Social History Tobacco Use Types Packs/Day Years [...] Pulse 69 05/20/2024 11:13 AM CDT Temperature - - Respiratory Rate - - Oxygen Saturation - - Inhaled Oxygen Concentration - - Weight 94.8 kg (209 lb) 05/20/2024 11:13 AM CDT Height 170.2 cm (5' 7 ) 05/20/2024 11:13 AM CDT Body Mass Index 32.73 05/20/2024 11:13 AM CDT documented in this encounter Progress Notes * Rosie Hernandez NP - 05/20/2024 11:00 AM CDT Patient: Arely Ernandez Birthdate: 1960 PCP: Jonatan Worley MD Reason for visit: Visit Date: 05/20/2024 CHIEF COMPLAINT CKD INTERIM HISTORY Arely Ernandez is a 63 y.o. female presenting with a past medical history of DM, glaucoma, HTN, and CKD IV. Presents today with her for follow up. Was recently hospitalized in March at [facility] for pneumonia, dehydration, and UTI. She reports she still has intermittent cough and PCP is concerned about residual pneumonia. Has swelling to BLE which is at her baseline. She had renal education in December and has not decided upon a modality. Has been having constipation and is using exlax. PAST MEDICAL HISTORY Past Medical History: Diagnosis Date Acute renal failure syndrome (CMS-HCC) 06/05/2021 Anemia in chronic kidney disease 05/27/2022 Atrophy of kidney 07/03/2021 Chronic kidney disease Diabetes mellitus without mention [...] by mouth 1 (one) time each day brimonidine (ALPHAGAN P) 0.1 % ophthalmic solution 2 drops 1 (one) time each day Cholecalciferol 50 MCG (1999 UT) capsule Take 2,000 Units by mouth 1 (one) time each day 30 capsule3 cyanocobalamin (VITAMIN B-12) 1000 MCG tablet Take 1,000 mcg by mouth 1 (one) time each day Dapagliflozin Propanediol 10 MG tablet Take 1 tablet by mouth 1 (one) time each day 30 tablet 2 dorzolamide (TRUSOPT) 2 % ophthalmic solution 2 drops 1 (one) time each day ferrous sulfate 325 (65 Fe) MG tablet Take 1 tablet (325 mg total) by mouth 1 (one) time each day with breakfast 90 tablet 1 glimepiride (AMARYL) 2 MG tablet Take 2 mg by mouth 1 (one) time each day glimepiride (AMARYL) 4 MG tablet Take 4 mg by mouth 1 (one) time each day hydrALAZINE (APRESOLINE) 50 MG tablet TAKE 1 TABLET BY MOUTH IN THE MORNING, 1 TABLET IN THE EVENING, AND 1 TABLET BEFORE BEDTIME 90 tablet 0 metoprolol succinate XL (TOPROL-XL) 100 MG 24 hr tablet Take 100 mg by mouth 1 (one) time each day rosuvastatin (CRESTOR) 5 MG tablet Take 5 mg by mouth 1 (one) time each day sodium bicarbonate 650 MG tablet Take 1 tablet (650 mg total) by mouth in the morning and 1 tablet (650 mg total) in the evening and 1 tablet (650 mg total) before bedtime. 270 tablet 1 sodium chloride (LUCIANA 128) 2 % ophthalmic solution 2 drops 1 (one) time each day timolol (BETIMOL) 0.5 % ophthalmic solution 2 drops 1 (one) time each day No current facility-administered medications for this visit. ALLERGIES Allergies Allergen Reactions Penicillins REVIEW OF SYSTEMS Review of Systems Constitutional: Negative for activity change, appetite change and fatigue. HENT: Negative for hearing loss. Eyes: Negative for pain, discharge and redness. Respiratory: Negative for cough and shortness of breath. Cardiovascular: Negative for chest pain, palpitations and leg swelling. Gastrointestinal: Positive for constipation. Negative for abdominal distention, abdominal pain, diarrhea and nausea. Endocrine: Negative for polyuria. Genitourinary: Negative for difficulty urinating, dysuria, frequency, hematuria and urgency. Musculoskeletal: Negative for arthralgias, back pain, gait problem and joint swelling. Skin: Negative for color change and rash. Neurological: Negative for dizziness, speech difficulty, weakness and numbness. Hematological: Does not bruise/bleed easily. Psychiatric/Behavioral: Negative for confusion and sleep disturbance. VITALS BP 128/74 (BP Location: Left arm) Pulse 69 Ht 5' 7 (1.702 m) Wt 209 lb (94.8 kg) BMI 32.73kg/m?? BSA 2.12 m?? PHYSICAL EXAM Physical Exam Constitutional: Appearance: [...] sounds. Pulmonary: Effort: Pulmonary effort is normal. Comments: Decreased LLL Abdominal: General: Bowel sounds are normal. Palpations: Abdomen is soft. Musculoskeletal: General: Normal range of motion. Skin: General: Skin is warm and dry. Neurological: Mental Status: She is alert and oriented to person, place, and time. Psychiatric: Mood and Affect: Mood and affect normal. ASSESSMENT AND PLAN Assessment/Plan Diagnoses and all orders for this visit: Chronic kidney disease, Stage IV (severe) ([facility]) - PTH Intact w/ Calcium; Future - Renal Function Panel; Future Diabetes mellitus with renal manifestations, type II or unspecified type, uncontrolled ([facility]) Essential (primary) hypertension Anemia in chronic kidney disease - CBC (Includes Diff/PLT); Future - Ferritin; Future - Iron And TIBC; Future Chronic metabolic acidosis Renal function has been stable at advanced stage IV. Discussed with patient importance of hydration. We discussed need to consider options for dialysis as the time to plan depending on modality is ochoa tight window and she may progress into an emergent situation. POC discussed with patient and spouse and Goals of treatment include tight control of BP and blood sugar, avoid NSAIDS, and maintain hydration. Will continue with same medications at this time and see patient in 3 months in follow up. This visit required 30 minutes of which >50% was spent directly counseling and educating patientand/or family/caretakers on the diagnosis and POC. ROSIE HERNANDEZ NP documented in this encounter Plan of Treatment Upcoming Encounters Date Type Department Care Team (Late st Contact Info) Description 09/23/2024 3:40 PM SEEING EYE DOG TRAINER Office Visit [facility] 5003 [facility] 1 [place] [address] Rosie Hernandez NP [address] [address] Scheduled Orders Name Type Priority Associated Diagnoses Orde r Schedule CBC (Includes Diff/PLT) Lab Routine Anemia in chronic kidney disease Expected: 08/19/2024, Expires: 05/20/2025 Ferritin Lab Routine Anemia in chronic kidney disease Expected: 08/19/2024, Expires: 05/20/2025 Iron And TIBC Lab Routine Anemia in chronic kidney disease Expected: 08/19/2024, Expires: 05/20/2025 PTH Intact w/ Calcium Lab Routine Chronic kidney disease, Stage IV (severe) (CMS-HCC) Expected: 08/19/2024, Expires: 05/20/2025 Renal Function Panel Lab Routine Chronic kidney disease, Stage IV (severe) (CMS-HCC) Expected: 08/19/2024, Expires: 05/20/2025 documented as of this encounter Visit Diagnoses Diagnosis Chronic kidney disease, Stage IV (severe) (CMS-HCC)- Primary Chronic kidney disease, Stage IV (severe) Diabetes mellitus with renal manifestations, type II or unspecified type, uncontrolled (CMS-HCC) Diabetes mellitus with renal manifestations, type II or unspecified type, uncontrolled Essential (primary) hypertension Anemia in chronic kidney disease Chronic metabolic acidosis documented in this encounter Care Teams Sales And Marketing Coordinator Relationship Specialty Start Date End Date Jonatan Worley MD [address] [place] [address] PCP - General 06/06/21 documented as of this encounter
--- OUTSIDE RECORDS SUMMARY | 2024-08-29 03:47 | XMS_ITS | Encounter Summary ---
Author Organization [facility] Ilana petersen Address [address] [place] [address] Phone Care Team Providers Care District Wire Chief Name Role Phone Jonatan Worley MD Primary Care Provider [phone] Reason for Visit * Reason Onset Date Comments Med Refill 04/07/2024 Encounter Details Date Type Department Care Team ([facility] Contact Info) Description 04/07/2024 Refill [facility] [address] [address] Preethi Almendarez RN Diabetes mellitus with renal manifestations, type II or unspecified type, uncontrolled ([facility]) Social History Tobacco Use Types Packs/Day Years [...] Upcoming Encounters Date Type Department Care Team ([facility] Contact Info) Description 09/23/2024 3:40 PM WAGON WASHER Office Visit [facility] 5003 [facility] 1 [place] [address] Rosa Delgado NP [address] [phone] documented as of this encounter Visit Diagnoses Diagnosis Diabetes mellitus with renal manifestations, type II or unspecified type, uncontrolled ([facility]) Diabetes mellitus with renal manifestations, type II or unspecified type, uncontrolled documented in this encounter Care Teams District Wire Chief Relationship Specialty Start Date End Date Jonatan Worley MD [address] [place] [phone] PCP - General 06/06/21 documented as of this encounter
--- OUTSIDE RECORDS SUMMARY | 2024-08-29 03:47 | XMS_ITS | Encounter Summary ---
Author Organization [facility]ician Ilana utialmas Address [address] [place] [address] Phone Care Team Providers Care Tower Erector Name Role Phone Jonatan Worley MD Primary Care Provider [phone] Reason for Visit * Reason Comments Med Refill Encounter Details Date Type Department [facility] Team ([facility] Contact Info) Description 08/06/2024 Refill [facility] [address] [place] [phone] Rosa Delgado NP [address] [phone] Social History Tobacco Use Types Packs/Day Years [...] Upcoming Encounters Date Type Department Care Team ([facility] Contact Info) Description 09/23/2024 3:40 PM TRACTOR DISTRIBUTOR Office Visit [facility] [address] [phone] Rosa Delgado NP [address] [phone] documented as of this encounter Visit Diagnoses Not on filedocumented in this encounter Care Teams Tower Erector Relationship Specialty Start Date End Date Jonatan Worley MD [address] [place] [address] PCP - General 06/06/21 documented as of this encounter
--- OUTSIDE RECORDS SUMMARY | 2024-08-29 03:47 | XMS_ITS | Encounter Summary ---
Author Organization [facility] Ilana petersen Address [address] [place] [address] Phone Care Team Providers Care Licensed Physical Therapy Assistant Name Role Phone Jonatan Worley MD Primary Care Provider [phone] Encounter Details Date Type Department Care Team ([facility] Contact Info) Description 12/29/2023 Orders Only [facility] [address] [facility] 1 [place] [address] Rosa Delgado NP [address] [address] Social History Tobacco Use Types [...] (Late Contact Info) Description 09/23/2024 3:40 PM TABULAR TYPIST Office Visit [facility] [address] [facility] 1 [place] [address] Rosa Delgado NP [address] [address] documented as of this encounter Procedures Procedure Name Priority Date/Time Associated Diagnosis Comments CBC (INCLUDES DIFFERENTIAL/PLATEL ETS) Routine 12/29/2023 9:40 AM CDT RENAL FUNCTION PANEL (RFP) Routine 12/29/2023 9:40 AM CDT FERRITIN, SERUM Routine 12/29/2023 9:40 AM CDT IRON AND TIBC, SERUM Routine 12/29/2023 9:40 AM CDT PTH INTACT AND CALCIUM, SERUM Routine 12/29/2023 9:40 AM CDT documented in this encounter Results * Ferritin, Serum (12/29/2023 9:40 AM CDT) Ferritin, Serum/Plasma 73 16 - 288 ng/mL [facility] ([facility]) 12/29/2023 9:40 AM CDT 12/29/2023 9:40 AM CDT Narrative [facility] ([facility]) - 12/30/2023 6:55 AM CDT FASTING:YES AN UPDATE OR CORRECTION HAS BEEN MADE TO NAME FASTING: YES Resulting Agency Comment Performing Organization Information: ?Site ID: [place] ?Name: [facility] ?Address: [address] [place] [phone] ?Director: Odalys Bangura MD Rosa Delgado NP LAB BLOOD ORDERABLES [facility] [place] ([facility]) * (ABNORMAL) Iron and TIBC, Serum (12/29/2023 9:40 AM CDT) Pathologist [facility] Iron, Serum/Plasma 44(L) 45 - 160 mcg/dL [facility] [place] ([facility]) Iron binding capacity, Serum/Plasma 256 250 - 450 mcg/dL (calc) [facility] [place] ([facility]) Iron saturation, Serum/Plasma 17 16 - 45 % (calc) [facility] [place] ([facility]) 12/29/2023 9:40 AM CDT 12/29/2023 9:40 AM CDT Narrative [facility] ([facility]) - 12/30/2023 6:55 AM CDT FASTING:YES AN UPDATE OR CORRECTION HAS BEEN MADE TO NAME FASTING: YES Resulting Agency Comment Performing Organization Information: ?Site ID: [place] ?Name: [facility] ?Address: [address] [address] ?Director: Odalys Bangura MD Rosa Delgado NP LAB BLOOD ORDERABLES [facility] ([facility]) * (ABNORMAL) PTH Intact and Calcium, Serum (12/29/2023 9:40 AM CDT) PTH, Intact, Serum/Plasma 111(H) 16 - 77 pg/mL [facility] ([facility]) Comment: Interpretive Guide ?Intact PTH ? Calcium ? ------- Normal Parathyroid ?Normal ? Normal Hypoparathyroidism ?Low or Low Normal ?Low Hyperparathyroidism ?? Primary ?Normal or High ? High ?? Secondary ?High ? Normal or Low ?? Tertiary ? High ? High Non-Parathyroid ?? Hypercalcemia ?Low or Low Normal ?High Calcium, Serum/Plasma 8.6 8.6 - 10.4 mg/dL [facility] ([facility]) 12/29/2023 9:40 AM CDT 12/29/2023 9:40 AM CDT Narrative [facility] [place] ([facility]) - 12/30/2023 6:55 AM CDT FASTING:YES AN UPDATE OR CORRECTION HAS BEEN MADE TO NAME FASTING: YES Resulting Agency Comment Performing Organization Information: ?Site ID: [place] ?Name: [facility] ?Address: [facility] [place] [address] ?Director: Odalys Bangura MD Rosa Delgado NP LAB BLOOD ORDERABLES [facility] [place] ([facility]) * (ABNORMAL) Renal Function Panel (RFP) (12/29/2023 9:40 AM CDT) Glucose, Serum/Plasma 180(H) 65 - 99 mg/dL [facility] [place] ([facility]) Comment: ? Fasting reference interval For someone without known diabetes, a glucose value >125 mg/dL indicates that they may have diabetes and this should be confirmed with a follow-up test. Urea nitrogen, Serum/Plasma (BUN) 50(H) 7 - 25 mg/dL [facility] [place] ([facility]) Creatinine, Serum/Plasma 3.12(H) 0.50 - 1.05 mg/dL [facility] [place] ([facility]) Estimated Glomerular Filtration Rate (eGFR) 16(L) > OR = 60 mL/min/1.7 3m2 [facility] [place] ([facility]) Urea nitrogen/Creati nine, Serum/Plasma 16 6 - 22 (calc) [facility] [place] ([facility]) Sodium, Serum/Plasma 134(L) 135 - 146 mmol/L [facility] [place] ([facility]) Potassium, Serum/Plasma 4.8 3.5 - 5.3 mmol/L [facility] [place] ([facility]) Chloride, Serum/Plasma 108 98 - 110 mmol/L [facility] [place] ([facility]) Carbon dioxide CO2), total, Serum/Plasma 19(L) 20 - 32 mmol/L [facility] ([facility]) Calcium, Serum/Plasma 8.3(L) 8.6 - 10.4 mg/dL [facility] ([facility]) Phosphate, Serum/Plasma 4.9(H) 2.5 - 4.5 mg/dL [facility] ([facility]) Albumin, Serum/Plasma 3.5(L) 3.6 - 5.1 g/dL [facility] [place] ([facility]) 12/29/2023 9:40 AM CDT 12/29/2023 9:40 AM CDT Narrative [facility] [place] ([facility]) - 12/30/2023 6:55 AM CDT FASTING:YES AN UPDATE OR CORRECTION HAS BEEN MADE TO NAME FASTING: YES Resulting Agency Comment Performing Organization Information: ?Site ID: ?Name: [facility] ?Address: [facility] [place] [address] ?Director: Odalys Bangura Rosa Delgado NP LAB BLOOD ORDERABLES [facility] [place] ([facility]) * (ABNORMAL) CBC (includes Differential/Platelets) (12/29/2023 9:40 AM CDT) Leukocytes, Blood 6.2 3.8 - 10.8 Thousand/u L [facility] [place] ([facility]) Erythrocytes (RBC) 3.24(L) 3.80 - 5.10 Million/uL [facility] [place] ([facility]) Hemoglobin (HGB) 9.7(L) 11.7 - 15.5 g/dL [facility] ([facility]) Hematocrit (HCT) 30.7(L) 35.0 - 45.0 % [facility] ([facility]) MCV 94.8 80.0 - 100.[address] [facility] ([facility]) MCH 29.9 27.0 - 33.[address] [facility] ([facility]) MCHC 31.6(L) 32.0 - 36.0 g/dL [facility] ([facility]) Erythrocyte Distribution Width (RDW) 12.6 11.0 - 15.0 % [facility] ([facility]) Platelets, Blood 150 140 - 400 Thousand/u L [facility] ([facility]) Platelet mean volume, Blood 11.3 7.5 - 12.[address] [facility] ([facility]) Neutrophils, Blood 3,590 1,500 - 7,800 cells/uL [facility] ([facility]) Lymphocytes, Blood 1,612 850 - 3,900 cells/uL [facility] ([facility]) Monocytes, Blood 583 200 - 950 cells/uL [facility] ([facility]) Eosinophils, Blood 372 15 - 500 cells/uL [facility] ([facility]) Basophils, Blood 43 0 - 200 cells/uL [facility] ([facility]) Neutrophils/100 leukocytes, Blood 57.9 % [facility] ([facility]) Lymphocytes/100 leukocytes, Blood 26.0 % [facility] ([facility]) Monocytes/100 leukocytes, Blood 9.4 % [facility] ([facility]) Eosinophils/100 leukocytes, Blood 6.0 % [facility] ([facility]) Basophils/100 leukocytes, Blood 0.7 % [facility] ([facility]) 12/29/2023 9:40 AM CDT 12/29/2023 9:40 AM CDT Narrative [facility] ([facility] - 12/30/2023 6:55 AM CDT FASTING:YES AN UPDATE OR CORRECTION HAS BEEN MADE TO NAME FASTING: YES Resulting Agency Comment Performing Organization Information: ?Site ID: SL ?Name: [facility] ?Address: [address] [place] [address] ?Director: Odalys Bangura Rosa Delgado DEHYDRATING PRESS OPERATOR LAB BLOOD ORDERABLES [facility] ([facility]) documented in this encounter Visit Diagnoses Not on filedocumented in this encounter Care Teams Licensed Physical Therapy Assistant Relationship Specialty Start Date End Date Jonatan Worley MD [address] [place] [phone] PCP - General 06/06/21 documented as of this encounter
--- OUTSIDE RECORDS SUMMARY | 2024-08-29 03:47 | XMS_ITS | Encounter Summary ---
Author Organization Isaac Physician Ilana utialmas Address [address] [place] [address] Phone Care Team Providers Care Collection Systems Foreman Name Role Phone Jonatan Worley MD Primary Care Provider [phone] Reason for Visit * Reason Comments Med Refill Encounter Details Date Type Department Care Team ([facility] Contact Info) Description 06/30/2024 Refill [facility] [address] [place] [phone] Rosa Delgado NP [address] [phone] Social History Tobacco Use Types Packs/Day Years [...] Upcoming Encounters Date Type Department Care Team ([facility] Contact Info) Description 09/23/2024 3:40 PM COMPOSITE MECHANIC Office Visit [facility] [address] [facility] 1 [place], [place] [phone] Rosa Delgado NP [address] [phone] documented as of this encounter Visit Diagnoses Not on filedocumented in this encounter Care Teams Collection Systems Foreman Relationship Specialty Start Date End Date Jonatan Worley MD [address] [place] [address] PCP - General 06/06/21 documented as of this encounter
--- OUTSIDE RECORDS SUMMARY | 2024-08-29 03:48 | XMS_ITS | Encounter Summary ---
Author Organization Isaac Physician Ilana petersen Address [address] [place] [address] Phone Care Team Providers Care Public Address Technician Name Role Phone Jonatan Worley MD Primary Care Provider [phone] Reason for Visit * Reason Onset Date Comments Med Refill 11/14/2022 Encounter Details Date Type Department Care Team ([facility] Contact Info) Description 11/14/2022 Refill [facility] [address] [phone] Preethi Almendarez RN Diabetes mellitus with renal manifestations, type II or unspecified type, uncontrolled ([facility]) Social History Tobacco Use Types Packs/Day Years [...] Upcoming Encounters Date Type Department Care Team ([facility] Contact Info) Description 09/23/2024 3:40 PM SENIOR FINANCIAL Office Visit [facility] 5[address] [facility] 1 [place], [place] [phone] Rosa Delgado NP [address] [phone] documented as of this encounter Visit Diagnoses Diagnosis Diabetes mellitus with renal manifestations, type II or unspecified type, uncontrolled ([facility]) Diabetes mellitus with renal manifestations, type II or unspecified type, uncontrolled documented in this encounter Care Teams Public Address Technician Relationship Specialty Start Date End Date Jonatan Worley MD [address] [place] [phone] PCP - General 06/06/21 documented as of this encounter
--- OUTSIDE RECORDS SUMMARY | 2024-08-29 03:48 | XMS_ITS | Encounter Summary ---
Author Organization Isaac Physician Ilana petersen Address [address] [place] [address] Phone Care Team Providers Care Apprenticeship Training Representative Name Role Phone Jonatan Worley MD Primary Care Provider [phone] Encounter Details Date Type Department Care Team ([facility] Contact Info) Description 01/30/2023 Orders Only [facility] [address] [place] [address] 1 [place] [address] Rosa Delgado NP [address] [address] Social History Tobacco Use Types [...] (Late Contact Info) Description 09/23/2024 3:40 PM TRAFFIC ASSISTANT Office Visit [facility] [address] [facility] 1 [place] [address] Rosa Delgado NP [address] [phone] documented as of this encounter Procedures Procedure Name Priority Date/Time Associated Diagnosis Comments MICROALBUMIN, RANDOM URINE WITH CREATININE Routine 01/30/2023 9:41 AM CDT CBC (INCLUDES DIFFERENTIAL/PLATELE TS) Routine 01/30/2023 9:41 AM CDT URINALYSIS, COMPLETE Routine 01/30/2023 9:41 AM CDT RENAL FUNCTION PANEL (RFP) Routine 01/30/2023 9:41 AM CDT PTH INTACT AND CALCIUM, SERUM Routine 01/30/2023 9:41 AM CDT documented in this encounter Results * (ABNORMAL) Microalbumin, Random Urine with Creatinine (01/30/2023 9:41 AM CDT) Creatinine, Urine 53 20 - 275 mg/dL [facility] ([facility]) Microalbumin, Urine 156.1 See Note: mg/dL [facility] ([facility]) Comment: Reference Range: Reference Range Not established Verified by repeat analysis. Albumin/Creatinin e, Urine 2,945(H) <30 mcg/mg creat [facility] ([facility]) Comment: The ADA defines abnormalities in albumin excretion as follows: Albuminuria Category ?Result (mcg/mg creatinine) Normal to Mildly increased ?? <30 Moderately increased ? 30-299 Severely increased ? > OR = 300 The ADA recommends that at least two of three specimens collected within a 3-6 month period be abnormal before considering a patient to be within a diagnostic category. 01/30/2023 9:41 AM CDT 01/30/2023 9:42 AM CDT Narrative [facility] ([facility]) - 01/31/2023 6:08 PM CDT FASTING:YES FASTING: YES Resulting Agency Comment Performing Organization Information: ?Site ID: [place] ?Name: [facility] ?Address: [address] [address] ?Director: Odalys Bangura MD Rosa L Delgado PATIENT AMBASSADOR LAB URINE ORDERABLES [facility] ([facility]) * (ABNORMAL) PTH Intact and Calcium, Serum (01/30/2023 9:41 AM CDT) PTH, Intact, Serum/Plasma 133(H) 16 - 77 pg/mL [facility] [place] ([facility]) Comment: Interpretive Guide ?Intact PTH ? Calcium ? ------- Normal Parathyroid ?Normal ? Normal Hypoparathyroidism ?Low or Low Normal ?Low Hyperparathyroidism ?? Primary ?Normal or High ? High ?? Secondary ?High ? Normal or Low ?? Tertiary ? High ? High Non-Parathyroid ?? Hypercalcemia ?Low or Low Normal ?High Calcium, Serum/Plasma 8.7 8.6 - 10.4 mg/dL [facility] [place] ([facility]) 01/30/2023 9:41 AM CDT 01/30/2023 9:42 AM CDT Narrative [facility] [place] ([facility]) - 01/31/2023 6:08 PM CDT FASTING:YES FASTING: YES Resulting Agency Comment Performing Organization Information: ?Site ID: [place] ?Name: [facility] ?Address: [address] [place] [address] ?Director: Odalys Bangura MD Rosa Delgado NP LAB BLOOD ORDERABLES [facility] ([facility]) * (ABNORMAL) Renal Function Panel (RFP) (01/30/2023 9:41 AM CDT) Glucose, Serum/Plasma 109(H) 65 - 99 mg/dL [facility] [place] ([facility]) Comment: ? Fasting reference interval For someone without known diabetes, a glucose value between 100 and 125 mg/dL is consistent with prediabetes and should be confirmed with a follow-up test. Urea nitrogen, Serum/Plasma (BUN) 46(H) 7 - 25 mg/dL [facility] [place] ([facility]) Creatinine, Serum/Plasma 2.55(H) 0.50 - 1.05 mg/dL [facility] [place] ([facility]) Estimated Glomerular Filtration Rate (eGFR) 21(L) > OR = 60 mL/min/1.7 3m2 [facility] [place] ([facility]) Comment: The eGFR is based on the CKD-EPI 2020 equation. To calculate the new eGFR from a previous Creatinine or Cystatin C result, go to https://www.kidney.org/professionals/ kdoqi/gfr%5Fcalculator Urea nitrogen/Creati nine, Serum/Plasma 18 6 - 22 (calc) [facility] [place] ([facility]) Sodium, Serum/Plasma 138 135 - 146 mmol/L [facility] [place] ([facility]) Potassium, Serum/Plasma 4.8 3.5 - 5.3 mmol/L [facility] [place] ([facility]) Chloride, Serum/Plasma 111(H) 98 - 110 mmol/L [facility] [place] ([facility]) Carbon dioxide CO2), total, Serum/Plasma 22 20 - 32 mmol/L [facility] [place] ([facility]) Calcium, Serum/Plasma 8.4(L) 8.6 - 10.4 mg/dL [facility] ([facility]) Phosphate, Serum/Plasma 5.3(H) 2.5 - 4.5 mg/dL [facility] ([facility]) Albumin, Serum/Plasma 3.4(L) 3.6 - 5.1 g/dL [facility] ([facility]) 01/30/2023 9:41 AM CDT 01/30/2023 9:42 AM CDT Narrative [facility] ([facility]) - 01/31/2023 6:08 PM CDT FASTING:YES FASTING: YES Resulting Agency Comment Performing Organization Information: ?Site ID: ?Name: [facility] ?Address: [facility] [place] [address] ?Director: Odalys Bangura Rosa Delgado NP LAB BLOOD ORDERABLES [facility] ([facility]) * (ABNORMAL) Urinalysis, Complete (01/30/2023 9:41 AM CDT) Color of Urine YELLOW YELLOW [facility] ([facility]) Appearance of Urine CLEAR CLEAR [facility] ([facility]) Specific gravity of Urine 1.015 1.001 - 1.035 [facility] ([facility]) pH of Urine 8.0 5.0 - 8.0 [facility] ([facility]) Glucose, Urine 2+(A) NEGATIVE [facility] ([facility]) Bilirubin, total, Urine NEGATIVE NEGATIVE [facility]) Ketones, Urine NEGATIVE NEGATIVE [facility]) Hemoglobin, Urine NEGATIVE NEGATIVE [facility]) Protein, Urine 3+(A) NEGATIVE [facility] ([facility]) Nitrite, Urine NEGATIVE NEGATIVE [facility]) Leukocyte esterase, Urine NEGATIVE NEGATIVE [facility]) Leukocytes, Urine sediment 6-10(A) < OR = 5 /HPF [facility] ([facility]) Erythrocytes, Urine sediment NONE SEEN < OR = 2 /HPF [facility] [place] ([facility]) Epithelial cells, squamous, Urine sediment 0-5 < OR = 5 /HPF [facility] ([facility]) Bacteria, Urine sediment NONE SEEN NONE SEEN /HPF [facility] ([facility]) Triple phosphate crystals, Urine sediment MODERATE(A) NONE OR FEW /HPF [facility] [place] [facility]) Hyaline casts, Urine sediment NONE SEEN NONE SEEN /LPF [facility] [place] ([facility]) Service comment [facility] ([facility]) Comment: This urine was analyzed for the presence of WBC, RBC, bacteria, casts, and other formed elements. Only those elements seen were reported. 01/30/2023 9:41 AM CDT 01/30/2023 9:42 AM CDT Narrative [facility] ([facility]) - 01/31/2023 6:08 PM CDT FASTING:YES FASTING: YES Resulting Agency Comment Performing Organization Information: ?Site ID: ?Name: [facility] ?Address: [facility] [place] [address] ?Director: Odalys Bangura Rosa Delgado NP LAB URINE ORDERABLES [facility] [place] ([facility]) * (ABNORMAL) CBC (includes Differential/Platelets) (01/30/2023 9:41 AM CDT) Leukocytes, Blood 10.2 3.8 - 10.8 Thousand/u L [facility] ([facility]) Erythrocytes (RBC) 3.64(L) 3.80 - 5.10 Million/uL [facility] ([facility]) Hemoglobin (HGB) 10.7(L) 11.7 - 15.5 g/dL [facility] [place] ([facility]) Hematocrit (HCT) 32.3(L) 35.0 - 45.0 % [facility] ([facility]) MCV 88.7 80.0 - 100.[address] [facility] ([facility]) MCH 29.4 27.0 - 33.[address] [facility] ([facility]) MCHC 33.1 32.0 - 36.0 g/dL [facility] ([facility]) Erythrocyte Distribution Width (RDW) 12.8 11.0 - 15.0 % [facility] ([facility]) Platelets, Blood 224 140 - 400 Thousand/u L [facility] ([facility]) Platelet mean volume, Blood 11.2 7.5 - 12.[address] [facility] ([facility]) Neutrophils, Blood 6,783 1,500 - 7,800 cells/uL [facility] ([facility]) Lymphocytes, Blood 1,734 850 - 3,900 cells/uL [facility] ([facility]) Monocytes, Blood 673 200 - 950 cells/uL [facility] ([facility]) Eosinophils, Blood 938(H) 15 - 500 cells/uL [facility] ([facility]) Basophils, Blood 71 0 - 200 cells/uL [facility] ([facility]) Neutrophils/100 leukocytes, Blood 66.5 % [facility]) Lymphocytes/100 leukocytes, Blood 17.0 % [facility] ([facility]) Monocytes/100 leukocytes, Blood 6.6 % [facility] ([facility]) Eosinophils/100 leukocytes, Blood 9.2 % [facility]) Basophils/100 leukocytes, Blood 0.7 % [facility]) 01/30/2023 9:41 AM CDT 01/30/2023 9:42 AM CDT Narrative [facility] ([facility]) - 01/31/2023 6:08 PM CDT FASTING:YES FASTING: YES Resulting Agency Comment Performing Organization Information: ?Site ID: ?Name: [facility] ?Address: [address] [address] ?Director: Odalys Bangura Rosa Delgado PATIENT AMBASSADOR LAB BLOOD ORDERABLES [facility] ([facility] documented in this encounter Visit Diagnoses Not on filedocumented in this encounter Care Teams Apprenticeship Training Representative Relationship Specialty Start Date End Date Jonatan Worley MD [address] [place] [address] PCP - General 06/06/21 documented as of this encounter
--- OUTSIDE RECORDS SUMMARY | 2024-08-29 03:48 | XMS_ITS | Encounter Summary ---
Author Organization [facility] Physician Ilana utialmas Address [address] [place] [address] Phone Care Team Providers Care Thermograph Operator Name Role Phone Jonatan Worley MD Primary Care Provider [phone] Reason for Visit * Reason Comments Med Refill Encounter Details Date Type Department Care Team (Late st Contact Info) Description 04/16/2022 Refill [facility] [address] [phone] Raji Shook MD [address] [address] Diabetes mellitus with renal manifestations, type II or unspecified type, uncontrolled ([facility]) Social History Tobacco Use Types Packs/Day [...] st Contact Info) Description 09/23/2024 3:40 PM PUBLIC RELATIONS PROFESSIONAL Office Visit [facility] 5[address] [facility] 1 [place] [address] Rosa Delgado NP 5003 [facility] 1 [place] [address] documented as of this encounter Visit Diagnoses Diagnosis Diabetes mellitus with renal manifestations, type II or unspecified type, uncontrolled ([facility]) Diabetes mellitus with renal manifestations, type II or unspecified type, uncontrolled documented in this encounter Care Teams Thermograph Operator Relationship Specialty Start Date End Date Jonatan Worley MD [address] [place] [address] PCP - General 06/06/21 documented as of this encounter
--- OUTSIDE RECORDS SUMMARY | 2024-08-29 03:48 | XMS_ITS | Encounter Summary ---
Author Organization [facility] Ilana petersen Address [address] [place] [address] Phone Care Team Providers Care Clerical Office Worker Name Role Phone Jonatan Worley MD Primary Care Provider [phone] Reason for Visit * Reason Onset Date Comments Med Refill 12/07/2021 Encounter Details Date Type Department Care Team ([facility] Contact Info) Description 12/07/2021 Refill [facility] [address] [phone] Mirian Starkey MA Diabetes mellitus with renal manifestations, type II or unspecified type, uncontrolled ([facility]) Social History Tobacco Use Types Packs/Day [...] (Late Contact Info) Description 09/23/2024 3:40 PM INSPECTOR FINISHING Office Visit [facility] [address] [phone] Rosa Delgado NP [facility] [address] [phone] documented as of this encounter Visit Diagnoses Diagnosis Diabetes mellitus with renal manifestations, type II or unspecified type, uncontrolled ([facility]) Diabetes mellitus with renal manifestations, type II or unspecified type, uncontrolled documented in this encounter Care Teams Clerical Office Worker Relationship Specialty Start Date End Date Jonatan Worley MD [address] [place] [address] PCP - General 06/06/21 documented as of this encounter
--- OUTSIDE RECORDS SUMMARY | 2024-08-29 03:48 | XMS_ITS | Encounter Summary ---
Author Organization [facility] Ilana petersen Address [address] [place] [address] Phone Care Team Providers Care Universal Grinder Tool Name Role Phone Jonatan Worley MD Primary Care Provider [phone] Reason for Visit * Reason Comments CKD Encounter Details Date Type Department Care Team (Late st Contact Info) Description 01/01/2022 1:40 PM CDT Office Visit [facility] 2[address] [facility] [address] [place] [address] Nasra Shook MD 5003 [facility] 1 [place] [address] Chronic kidney disease, Stage IV (severe) (CMS-HCC) (Primary Dx); Atrophy of kidney; Diabetes mellitus with renal manifestations, type II or unspecified type, uncontrolled (CMS-HCC); Essential (primary) hypertension Social History Tobacco Use Types Packs/Day Years [...] Sign Reading Time Taken Comments Blood Pressure 150/85 01/01/2022 1:39 PM CDT Pulse 76 01/01/2022 1:39 PM CDT Temperature - - Respiratory Rate - - Oxygen Saturation - - Inhaled Oxygen Concentration - - Weight 91.2 kg (201 lb) 01/01/2022 1:39 PM CDT Height 170.2 cm (5' 7 ) 01/01/2022 1:39 PM CDT Body Mass Index 31.48 01/01/2022 1:39 PM CDT documented in this encounter Progress Notes * Nasra Shook MD - 01/01/2022 1:40 PM CDT Patient: Arely Ernandez Birthdate: 1960 PCP: Jonatna Worley MD Reason for visit: Visit Date: 01/01/2022 CHIEF COMPLAINT CKD INTERIM HISTORY Arely Ernandez is a 61 y.o. female presenting with a past medical history of diabetes mellitus, history of glaucoma, hypertension. Has had progressive proteinuria and low albumin creatinine ratio has progressed to 4114 indicative of more progressive renal failure and glomerular damage. We cannot use IAN inhibitor's or angiotensin receptor blockers due to high potassium readings. Indeed current reading is 5.3 mEq/L in the potassium. Creatinine is increased to 2.04 mg/dL. Serum albumin of 3.4 g/dL. She does not have any swelling or shortness of breath. She does however get dyspnea on exertion. Nonausea or vomiting. Appetite is maintained. Denies any other complaints. She has gained 30 pounds of body weight since May 2021. PAST MEDICAL HISTORY Past Medical History: Diagnosis Date ??? Diabetes mellitus without mention of complication, type II or unspecified type, not stated as uncontrolled ([facility]) ??? Essential hypertension ??? History of nonproliferative diabetic retinopathy ??? Other and unspecified hyperlipidemia PAST SURGICAL HISTORY History reviewed. No pertinent surgical history. SOCIAL HISTORY Social History Tobacco Use ??? Smoking status: Never Smoker [...] ??? amLODIPine (NORVASC) 10 MG tablet Take 1 tablet (10 mg total) by mouth 1 (one) time each day 30tablet 11 ??? aspirin 81 MG chewable tablet Chew 81 mg 1 (one) time each day ??? Dapagliflozin Propanediol (Farxiga) 10 MG tablet Take 1 tablet by mouth 1 (one) time each day 30 tablet 1 ??? ergocalciferol (VITAMIN D-2) 1.25 MG (00585 UT) capsule Take 50,000 Units by mouth 1 (one) timeper week ??? glimepiride (AMARYL) 4 MG tablet Take 4 mg by mouth 1 (one) time each day before breakfast ??? metoprolol succinate XL (Toprol XL) 50 MG 24 hr tablet Take 50 mg by mouth 1 (one) time each day Do not crush or chew. ??? rosuvastatin (CRESTOR) 5 MG tablet Take 5 mg by mouth 1 (one) time each day No current facility-administered medications for this visit. ALLERGIES Allergies Allergen Reactions ??? Penicillins REVIEW OF SYSTEMS Review of Systems VITALS BP 150/85 (BP Location: Left arm, Patient Position: Sitting, BP Cuff Size: Adult) Pulse 76 Ht 5' 7 (1.702 m) Wt 201 lb (91.2 kg) BMI 31.48 kg/m?? BSA 2.08 m?? PHYSICAL EXAM Physical Exam Vitals reviewed. Constitutional: Appearance: She is well-developed and well-nourished. HENT: Head: Normocephalic and atraumatic. Eyes: General: No scleral icterus. Conjunctiva/sclera: Conjunctivae normal. Neck: Thyroid: No thyromegaly. Vascular: No JVD. Cardiovascular: Rate and Rhythm: Normal rate and regular rhythm. Heart sounds: No friction rub. Pulmonary: Effort: Pulmonary effort is normal. No respiratory distress. Breath sounds: Normal breath sounds. Abdominal: Palpations: Abdomen is soft. There is no mass. Tenderness: There is no abdominal tenderness. Musculoskeletal: General: No deformity or edema. Skin: General: Skin is warm and dry. Neurological: Mental Status: She is alert and oriented to person, place, and time. Psychiatric: Mood and Affect: Mood and affect normal. Behavior: Behavior normal. RECENT LABS Lab Results Component Value Date EGFR 26 (L) 12/24/2021 CREATININE 2.04 (H) 12/24/2021 CREATININEUR 43 12/24/2021 GLUCOSE 155 (H) 12/24/2021 PTH 55 12/24/2021 HCT 32.3 (L) 12/24/2021 BUN 33 (H) 12/24/2021 NA 138 12/24/2021 K 5.3 12/24/2021 CL 110 12/24/2021 CO2 23 12/24/2021 ALBUMIN 3.4 (L) 12/24/2021 CA 8.9 12/24/2021 CA 8.9 12/24/2021 IMAGES No image results found. ASSESSMENT AND PLAN Assessment/Plan Diagnoses and all orders for this visit: Chronic kidney disease, Stage IV (severe) ([facility]) Cannot use IAN or ARB's. Has history of hyperkalemia. Keep hemoglobin A1c less than 7. Blood pressure less than 140/90. - PTH Intact w/o Calcium, Serum; Future - Renal Function Panel (RFP); Future - CBC (includes Platelets / NO Differential); Future Atrophy of kidney Will do renal arterial Doppler studies before next visit Diabetes mellitus with renal manifestations, type II or unspecified type, uncontrolled ([facility]) See above discussion Essential (primary) hypertension See above discussion Please call with any questions. Follow-up appointment for 4 months 4 months NASRA SHOOK MD documented in this encounter Plan of Treatment Upcoming Encounters Date Type Department Care Team (Late st Contact Info) Description 09/23/2024 3:40 PM MILL TENDER WASHING Office Visit [facility] 5[address] [facility] 1 [place] [address] Rosa Delgado NP [address] [place] [phone] Scheduled Orders Name Type Priority Associated Diagnoses Orde r Schedule PTH Intact w/o Calcium, Serum Lab Routine Chronic kidney disease, Stage IV (severe) ([facility]) Expected: 07/04/2022, Expires: 07/04/2022 Renal Function Panel (RFP) Lab Routine Chronic kidney disease, Stage IV (severe) ([facility]) Expected: 07/04/2022, Expires: 01/01/2023 CBC (includes Platelets / NO Differential) Lab Routine Chronic kidney disease, Stage IV (severe) ([facility]) Expected: 07/04/2022, Expires: 07/04/2022 documented as of this encounter Visit Diagnoses Diagnosis Chronic kidney disease, Stage IV (severe) ([facility] Primary Chronic kidney disease, Stage IV (severe) Atrophy of kidney Diabetes mellitus with renal manifestations, type II or unspecified type, uncontrolled ([facility]) Diabetes mellitus with renal manifestations, type II or unspecified type, uncontrolled Essential (primary) hypertension documented in this encounter Care Teams Universal Grinder Tool Relationship Specialty Start Date End Date Jonatan Worley MD [address] [place] [phone] PCP - General 06/06/21 documented as of this encounter
--- OUTSIDE RECORDS SUMMARY | 2024-08-29 03:48 | XMS_ITS | Encounter Summary ---
Author Organization [facility] Ilana utialmas Address [address] [place] [address] Phone Care Team Providers Care Washing And Screening Plant Supervisor Name Role Phone Jonatan Worley MD Primary Care Provider [phone] Encounter Details Date Type Department Care Team ([facility] Contact Info) Description 12/24/2021 Orders Only [facility] [address] [address] Raji Shook MD [address] [address] Social History Tobacco Use Types [...] (Late Contact Info) Description 09/23/2024 3:40 PM TAX ASSOCIATE ATTORNEY Office Visit [facility] 5003 [facility] 1 [place] [address] Rosa Delgado NP [address] [address] documented as of this encounter Procedures Procedure Name Priority Date/Time Associated Diagnosis Comments MICROALBUMIN, RANDOM URINE WITH CREATININE Routine 12/24/2021 8:33 AM CDT URINALYSIS, COMPLETE, W/ REFLEX TO CULTURE Routine 12/24/2021 8:33 AM CDT CBC (INCLUDES DIFFERENTIAL/PLATELE TS) Routine 12/24/2021 8:33 AM CDT RENAL FUNCTION PANEL (RFP) Routine 12/24/2021 8:33 AM CDT PTH INTACT AND CALCIUM, SERUM Routine 12/24/2021 8:33 AM CDT documented in this encounter Results * (ABNORMAL) Microalbumin, Random Urine with Creatinine (12/24/2021 8:33 AM CDT) Creatinine, Urine 43 20 - 275 mg/dL [facility] ([facility]) Microalbumin, Urine 176.9 See Note: mg/dL [facility] ([facility]) Comment: Reference Range: Reference Range Not established Verified by repeat analysis. Albumin/Creatinin e, Urine 4,114(H) <30 mcg/mg creat [facility] ([facility]) Comment: The ADA [...] patient to be within a diagnostic category. 12/24/2021 8:33 AM CDT 12/24/2021 8:35 AM CDT Narrative Resulting Agency Comment Performing Organization Information: ?Site ID: [place] ?Name: [facility] ?Address: [address] [address] ?Director: Javier Marquez D.O., MPH Raji Shook MD LAB URINE ORDERABLES [facility] ([facility]) * (ABNORMAL) Renal Function Panel (RFP) (12/24/2021 8:33 AM CDT) [facility] Glucose, Serum/Plasma 155(H) 65 - 99 mg/dL [facility] ([facility]) Comment: ? Fasting reference interval For someone without known diabetes, a glucose value >125 mg/dL indicates that they may have diabetes and this should be confirmed with a follow-up test. Urea nitrogen, Serum/Plasma (BUN) 33(H) 7 - 25 mg/dL [facility] ([facility]) Creatinine, Serum/Plasma 2.04(H) 0.50 - 0.99 mg/dL [facility]) Comment: For patients >49 years of age, the reference limit for Creatinine is approximately 13% higher for people identified as -[place]. eGFR, non 26(L) > OR = 60 mL/min/1. 73m2 [facility]) eGFR, 30(L) > OR = 60 mL/min/1. 73m2 [facility] ([facility]) Urea nitrogen/Creatinin e, Serum/Plasma 16 6 - 22 (calc) [facility] ([facility]) Sodium, Serum/Plasma 138 135 - 146 mmol/L [facility] ([facility]) Potassium, Serum/Plasma 5.3 3.5 - 5.3 mmol/L [facility] ([facility]) Chloride, Serum/Plasma 110 98 - 110 mmol/L [facility] ([facility]) Carbon dioxide CO2), total, Serum/Plasma 23 20 - 32 mmol/L [facility] ([facility]) Calcium, Serum/Plasma 8.9 8.6 - 10.4 mg/dL [facility] ([facility]) Phosphate, Serum/Plasma 5.7(H) 2.5 - 4.5 mg/dL [facility] ([facility]) Albumin, Serum/Plasma 3.4(L) 3.6 - 5.1 g/dL [facility] ([facility]) 12/24/2021 8:33 AM CDT 12/24/2021 8:35 AM CDT Narrative Resulting Agency Comment Performing Organization Information: ?Site ID: [place] ?Name: [facility] ?Address: [facility] [address] [address] ?Director: Javier Marquez D.O., MPH Raji Shook MD LAB BLOOD ORDERABLES [facility] ([facility]) * PTH Intact and Calcium, Serum (12/24/2021 8:33 AM CDT) PTH, Intact, Serum/Plasma 55 16 - 77 pg/mL [facility] ([facility]) Comment: Interpretive Guide ?Intact PTH ? Calcium ? ------- Normal Parathyroid ?Normal ? Normal Hypoparathyroidism ?Low or Low Normal ?Low Hyperparathyroidism ?? Primary ?Normal or High ? High ?? Secondary ?High ? Normal or Low ?? Tertiary ? High ? High Non-Parathyroid ?? Hypercalcemia ?Low or Low Normal ?High Calcium, Serum/Plasma 8.9 8.6 - 10.4 mg/dL [facility]) 12/24/2021 8:33 AM CDT 12/24/2021 8:35 AM CDT Narrative Resulting Agency Comment Performing Organization Information: ?Site ID: [place] ?Name: [facility] ?Address: [address] [address] ?Director: Javier Marquez D.O., MPH Raji Shook MD LAB BLOOD ORDERABLES [facility]) * (ABNORMAL) CBC (includes Differential/Platelets) (12/24/2021 8:33 AM CDT) Leukocytes, Blood 8.1 3.8 - 10.8 Thousand/u L [facility] ([facility]) Erythrocytes (RBC) 3.67(L) 3.80 - 5.10 Million/uL [facility] ([facility]) Hemoglobin (HGB) 10.6(L) 11.7 - 15.5 g/dL [facility] ([facility]) Hematocrit (HCT) 32.3(L) 35.0 - 45.0 % [facility]) MCV 88.0 80.0 - 100.[address] [facility]) MCH 28.9 27.0 - 33.[address] [facility]) MCHC 32.8 32.0 - 36.0 g/dL [facility]) Erythrocyte Distribution Width (RDW) 13.1 11.0 - 15.0 % [facility]) Platelets, Blood 201 140 - 400 Thousand/u L [facility]) Platelet mean volume, Blood 11.3 7.5 - 12.[address] [facility]) Neutrophils, Blood 5,103 1,500 - 7,800 cells/uL [facility]) Lymphocytes, Blood 1,669 850 - 3,900 cells/uL [facility]) Monocytes, Blood 632 200 - 950 cells/uL [facility]) Eosinophils, Blood 640(H) 15 - 500 cells/uL [facility]) Basophils, Blood 57 0 - 200 cells/uL [facility]) Neutrophils/100 leukocytes, Blood 63 % [facility] Lymphocytes/100 leukocytes, Blood 20.6 % [facility]) Monocytes/100 leukocytes, Blood 7.8 % [facility]) Eosinophils/100 leukocytes, Blood 7.9 % [facility] Basophils/100 leukocytes, Blood 0.7 % [facility]) 12/24/2021 8:33 AM CDT 12/24/2021 8:35 AM CDT Narrative Resulting Agency Comment Performing Organization Information: ?Site ID: [place] ?Name: [facility] ?Address: [address] [place] [address] ?Director: Javier Marquez D.O., MPH Raji Shook MD LAB BLOOD ORDERABLES [facility] * (ABNORMAL) Urinalysis, Complete, w/ Reflex to Culture (12/24/2021 8:33 AM CDT) Color of Urine YELLOW YELLOW [facility]) Appearance of Urine CLEAR CLEAR [facility]) Specific gravity of Urine 1.014 1.001 - 1.035 [facility]) pH of Urine > OR = 8.5(A) 5.0 - 8.[address] [facility] Leukocytes, Urine sediment 0-5 < OR = 5 /HPF [facility]) Erythrocytes, Urine sediment 0-2 < OR = 2 /HPF [facility]) Epithelial cells, squamous, Urine sediment 0-5 < OR = 5 /HPF [facility]) Bacteria, Urine sediment NONE SEEN NONE SEEN /HPF [facility]) Hyaline casts, Urine sediment NONE SEEN NONE SEEN /LPF [facility]) Bacteria identified, Urine [facility] Comment:NO CULTURE INDICATED 12/24/2021 8:33 AM CDT 12/24/2021 8:35 AM CDT Narrative Resulting Agency Comment Performing Organization Information: ?Site ID: ?Name: [facility] ?Address: [facility] [place] [address] ?Director: Odalys Bangura Raji Shook MD LAB BLOOD ORDERABLES [facility] documented in this encounter Visit Diagnoses Not on filedocumented in this encounter Care Teams Washing And Screening Plant Supervisor Relationship Specialty Start Date End Date Jonatan Worley MD [address] [place] [address] PCP - General 06/06/21 documented as of this encounter
--- OUTSIDE RECORDS SUMMARY | 2024-08-29 03:48 | XMS_ITS | Encounter Summary ---
Author Organization [facility] Ilana petersen Address [address], [place] [address] Phone Care Team Providers Care King Maker Name Role Phone Unavailable Primary Care Provider Unavailabl e Reason for Visit * Reason Comments Proteinuria Encounter Details Date Type Department Care Team ([facility] Contact Info) Description 12/21/2020 1:20 PM CDT Office Visit [facility] 5[address] [facility] 1 [place], [place] [phone] Louis Medina MD [address] [address] Social History Tobacco Use Types [...] Sign Reading Time Taken Comments Blood Pressure 175/110 12/21/2020 1:26 PM CDT Pulse 81 12/21/2020 1:26 PM CDT Temperature 36.6 ??C (97.8 ??F) 12/21/2020 1:26 PM CD T Respiratory Rate - - Oxygen Saturation - - Inhaled Oxygen Concentration - - Weight 93.9 kg (207 lb) 12/21/2020 1:26 PM CDT Height - - Body Mass Index - - documented in this encounter Plan of Treatment Upcoming Encounters Date Type Department Care Team ([facility] Contact Info) Description 09/23/2024 3:40 PM INTEGRATION ARCHITECT Office Visit [facility] 5[address] [facility] 1 [place] [address] Rosa Delgado, AMA [address] [phone] documented as of this encounter Visit Diagnoses Not on filedocumented in this encounter
--- OUTSIDE RECORDS SUMMARY | 2024-08-29 03:48 | XMS_ITS | Encounter Summary ---
Author Organization [facility] Ilana utialmas Address [address] [place] [address] Phone Care Team Providers Care Refrigerator Assembler Name Role Phone Jonatan Worley MD Primary Care Provider [phone] Reason for Visit * Reason Comments Med Refill Encounter Details Date Type Department Care Team (Late st Contact Info) Description 09/07/2022 Refill [facility] [address] [phone] Raji Shook MD [address] [address] Diabetes mellitus with renal manifestations, type II or unspecified type, uncontrolled ([facility]) Social History Tobacco Use [...] st Contact Info) Description 09/23/2024 3:40 PM WAFER FAB TECHNICIAN Office Visit [facility] 5003 [facility] 1 [place] [address] Rosa Delgado NP 5[address] [facility] 1 [place] [address] documented as of this encounter Visit Diagnoses Diagnosis Diabetes mellitus with renal manifestations, type II or unspecified type, uncontrolled ([facility]) Diabetes mellitus with renal manifestations, type II or unspecified type, uncontrolled documented in this encounter Care Teams Refrigerator Assembler Relationship Specialty Start Date End Date Jonatan Worley MD [address] [place] [address] PCP - General 06/06/21 documented as of this encounter
--- OUTSIDE RECORDS SUMMARY | 2024-08-29 03:48 | XMS_ITS | Encounter Summary ---
Author Organization [facility] Il[facility] p[facility]en Address [address] [place] [address] Phone Care Team Providers Care [place] Actor Name Role Phone Jonatan Worley MD Primary Care Provider [phone] Reason for Visit * Reason Comments CKD Encounter Details Date Type Department Care Team (Late st Contact Info) Description 06/05/2021 1:00 PM CDT Office Visit [facility] [address] [address] Nasra Shook MD [address] 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 Reason for visit: Visit Date: 06/05/2021 CHIEF COMPLAINT CKD INTERIM HISTORY Arely Ernandez is a 60 y.o. female presenting with a past medical history of diabetes mellitus ofonly 3 years duration but recent knowledge of presence of diabetic retinopathy, hypertension of 3 years duration, known proteinuria from past with albumin creatinine ratio of 3215 in July confirmed to be 3740 in April of this year. Potassium currently is 5.5 BUN/creatinine have increased from 29 and 1.2-53 and 2.5 mg/dL respectively. Hence being seen sooner. She was on irbesartan and thathas been discontinued as has been Metformin. She does not have lower extremity swelling or shortness of breath no urinary complaints does not see any blood in the urine no shortness of breath. Generally no change. She is not on diuretic therapy. No nonsteroidal use. Negative other systemic issues. PAST MEDICAL HISTORY Past Medical History: Diagnosis Date ??? Diabetes mellitus without mention of complication, type II or unspecified type, not stated as uncontrolled ([facility]) ??? Essential hypertension ??? Other and unspecified hyperlipidemia PAST SURGICAL [...] Dispense Refill ??? amLODIPine (NORVASC) 5 MG tablet Take 5 mg by mouth 1 (one) time each day ??? aspirin 81 MG chewable tablet Chew 81 mg 1 (one) time each day ??? ergocalciferol (VITAMIN D-2) 1.25 MG (66422 UT) capsule Take 50,000 Units by mouth [...] Penicillins REVIEW OF SYSTEMS Review of Systems Nonsteroidals, no history of hepatitis, no history of lupus, denies sleep apnea, denies stroke, denies heart failure or [place]. Ultrasound of the kidney done in the past showed right kidney 8.3 cm in length left kidney 11.7 cm in length. Negative rest VITALS BP (!) 139/91 (BP Location: Left arm, Patient Position: Sitting, BP Cuff Size: Adult) Pulse 74 Ht 5' 8 (1.727 m) Wt 187 lb (84.8 kg) BMI 28.43 kg/m?? BSA 2.02 m?? PHYSICAL EXAM Physical Exam Well-developed well-nourished skin turgor normal moist mucosa JVD negative regular rhythm no gallopequal breath sounds no rales abdomen soft nontender no hepatomegaly edema negative alert oriented x3 no tremor RECENT LABS No results found for: EGFR, CREATININE, CREATININEUR, CHOL, LDL, HDL, TRIG, GLUCOSE, PTH, HCT, BUN,NA, K, CL, CO2, ALBUMIN, CA IMAGES No image results found. 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 Agree with stopping the angiotensin receptor ervin and Metformin. Check basic labs to make sure there is nothing else going on. Please see orders as indicated above.Continue the current medications I will see her again in 1 month's time. I did indicate to the patient and patient's son that this likely represents natural progression from diabetes mellitus based on the story available. Please call me with any questions. NASRA SHOOK MD documented in this encounter Plan of Treatment Upcoming Encounters Date Type Department Care Team ([facility] st Contact Info) Description 09/23/2024 3:40 PM FRAME HAND Office Visit [facility] 5[address] [facility] 1 [place] [address] Rosa Delgado NP [address] [facility] 1 [place], [place] [id number] Scheduled Orders Name Type Priority Associated Diagnoses Orde r Schedule Basic Metabolic Panel (BMP) Lab Routine Acute renal failure syndrome (CMS-HCC) 1 Occurrences starting 06/05/2021 until 06/05/2022 CBC (includes Platelets / NO Differential) Lab Routine Acute renal failure syndrome (CMS-HCC) Expected: 12/04/2021, Expires: 12/04/2021 Antinuclear Antibodies (DULCE), IFA w/ Refl Titer and Pattern Lab Routine Acute renal failure syndrome (CMS-HCC) 1 Occurrences starting 06/05/2021 until 06/05/2022 Hepatitis Panel (General) Lab Routine Acute renal failure syndrome (CMS-HCC) 1 Occurrences starting 06/05/2021 until 06/05/2022 documented as of this encounter Visit Diagnoses Diagnosis Chronic kidney disease, not otherwise specified- Primary Acute renal failure syndrome (CMS-HCC) 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
--- OUTSIDE RECORDS SUMMARY | 2024-08-29 03:48 | XMS_ITS | Encounter Summary ---
Author Organization [facility] Address [address] [place] [address] Phone Care Team Providers Care Hydrodynamics Teacher Name Role Phone Jonatan Worley MD Primary Care Provider [phone] Reason for Visit * Reason Comments CKD Encounter Details Date Type Department Care Team ([facility] st Contact Info) Description 06/12/2022 11:00 AM CDT Telemedicine [facility] 5003 [facility] 1 [place] [address] Rosie Hernandez NP [address] [address] Chronic kidney disease, Stage IV (severe) (CMS-HCC) (Primary Dx); Diabetes mellitus with renal manifestations, type II or unspecified type, uncontrolled (CMS-HCC); Anemia in chronic kidney disease; Essential (primary) hypertension Social History Tobacco Use [...] Sign Reading Time Taken Comments Blood Pressure - - Pulse - - Temperature - - Respiratory Rate - - Oxygen Saturation - - Inhaled Oxygen Concentration - - Weight - - Height 170.2 cm (5' 7 ) 06/12/2022 10:39 AM CDT Body Mass Index - - documented in this encounter Progress Notes * Rosie Hernandez NP - 06/12/2022 11:00 AM CDT Patient: Arely Ernnadez Birthdate: 1960 PCP: Jonatan Worley MD Reason for visit: Visit Date: 06/12/2022 CHIEF COMPLAINT CKD INTERIM HISTORY Arely Ernandez is a 61 y.o. female presenting with a past medical history of DM, glaucoma, and HTN. Patient has had progressive proteinuria and low albumin. Creatinine at prior appt had elevated and was called back for short duration follow up. Patient creatinine at this time has returned to baseline. She reports she has been doing well and denies any SOB, swelling, or NVD No urinary complaints. PAST MEDICAL HISTORY Past [...] day ??? ergocalciferol (VITAMIN D-2) 1.25 MG (44117 UT) capsule Take 50,000 Units by mouth 1 (one) timeper week ??? Farxiga 10 MG tablet Take 1 tablet by mouth once daily 30 tablet 0 ??? glimepiride (AMARYL) 4 MG tablet Take 4 mg by mouth 1 (one) time each day before breakfast Take4 mg in morning and 2mg in evening ??? hydrALAZINE (APRESOLINE) 10 MG tablet Take 10 mg by mouth 3 (three) times a day ??? metoprolol succinate XL (TOPROL-XL) 100 MG [...] Negative for confusion and sleep disturbance. VITALS Ht 5' 7 (1.702 m) BMI 33.36 kg/m?? BSA 2.14 m?? PHYSICAL EXAM Physical Exam Constitutional: Comments: Deferred due to telehealth RECENT LABS Lab Results Component Value Date EGFR 26 (L) 12/24/2021 EGFRAA 30 (L) 12/24/2021 EGFRCR 26 (L) 06/07/2022 CREATININE 2.10 (H) 06/07/2022 CREATININEUR 43 12/24/2021 GLUCOSE 192 (H) 06/07/2022 PTH 92 (H) 06/07/2022 HCT 30.7 (L) 06/07/2022 BUN 38 (H) 06/07/2022 NA 140 06/07/2022 K 5.0 06/07/2022 CL 111 (H) 06/07/2022 CO2 23 06/07/2022 ALBUMIN 3.2 (L) 06/07/2022 CA 8.5 (L) 06/07/2022 CA 8.5 (L) 06/07/2022 ASSESSMENT AND PLAN Assessment/Plan Diagnoses and all orders for this visit: Chronic kidney disease, Stage IV (severe) ([facility]) Renal function has returned to baseline. We discussed importance of hydration with use of farxiga and benefit of use with renal disease. She will continue to make efforts to maintain good hydration. At this time without further worsening will see patient back in 4 months with repeat labs. Visit today via phone at [phone] totaling 10 minutes. - CBC (Includes Diff/PLT); Future - PTH Intact w/ Calcium; Future - Renal Function Panel; Future - Urinalysis, Routine; Future - Albumin/Creatinine Ratio, Random, Urine ([facility] Only); Future Diabetes mellitus with renal manifestations, type II or unspecified type, uncontrolled ([facility]) Goal A1C to be less than 7 A1C last from December and was within range. Some elevation noted on serum glucose. Patient monitoring Anemia in chronic kidney disease Stable Essential (primary) hypertension Goal BP to be less than 130/80 Does not monitor at home readings. ROSIE HERNANDEZ NP documented in this encounter Plan of Treatment Upcoming Encounters Date Type Department Care Team (Late st Contact Info) Description 09/23/2024 3:40 PM MANAGER COMPANY Office Visit [facility] 5003 [facility] 1 [place] [address] Rosie Hernandez NP [address] [id number] Scheduled Orders Name Type Priority Associated Diagnoses Orde r Schedule CBC (Includes Diff/PLT) Lab Routine Chronic kidney disease, Stage IV (severe) ([facility]) Expected: 09/12/2022, Expires: 06/12/2023 PTH Intact w/ Calcium Lab Routine Chronic kidney disease, Stage IV (severe) ([facility]) Expected: 09/12/2022, Expires: 06/12/2023 Renal Function Panel Lab Routine Chronic kidney disease, Stage IV (severe) ([facility]) Expected: 09/12/2022, Expires: 06/12/2023 Urinalysis, Routine Lab Routine Chronic kidney disease, Stage IV (severe) ([facility]) Expected: 09/12/2022, Expires: 06/12/2023 Albumin/Creatinine Ratio, Random, Urine ([facility] Only) Lab Routine Chronic kidney disease, Stage IV (severe) ([facility]) Expected: 09/12/2022, Expires: 06/12/2023 documented as of this encounter Visit Diagnoses Diagnosis Chronic kidney disease, Stage IV (severe) ([facility])- Primary Chronic kidney disease, Stage IV (severe) Diabetes mellitus with renal manifestations, type II or unspecified type, uncontrolled ([facility]) Diabetes mellitus with renal manifestations, type II or unspecified type, uncontrolled Anemia in chronic kidney disease Essential (primary) hypertension documented in this encounter Care Teams Hydrodynamics Teacher Relationship Specialty Start Date End Date Jonatan Worley MD [address] [place] [address] PCP - General 06/06/21 documented as of this encounter
--- OUTSIDE RECORDS SUMMARY | 2024-08-29 03:48 | XMS_ITS | Encounter Summary ---
Author Organization [facility] Address [address] [place] [address] Phone Care Team Providers Care Ed Manager Name Role Phone Jonatan Worley MD Primary Care Provider [phone] Reason for Visit * Reason Comments Med Refill Encounter Details Date Type Department Care Team (Late st Contact Info) Description 06/07/2022 Refill [facility] [address] [id number] Raji Shook MD [address] [address] Diabetes mellitus with renal manifestations, type II or unspecified type, uncontrolled ([facility]) Social History Tobacco Use [...] st Contact Info) Description 09/23/2024 3:40 PM HAND BOX COVERER Office Visit [facility] 5003 [facility] 1 [place] [address] Rosa Delgado NP 5003 [facility] 1 [place] [address] documented as of this encounter Visit Diagnoses Diagnosis Diabetes mellitus with renal manifestations, type II or unspecified type, uncontrolled ([facility]) Diabetes mellitus with renal manifestations, type II or unspecified type, uncontrolled documented in this encounter Care Teams Ed Manager Relationship Specialty Start Date End Date Jonatan Worley MD [address] [place] [address] PCP - General 06/06/21 documented as of this encounter
--- OUTSIDE RECORDS SUMMARY | 2024-08-29 03:48 | XMS_ITS | Encounter Summary ---
Author Organization [facility] Il[facility] utialmas Address [address] [place] [address] Phone Care Team Providers Care Supervisor [employer] Name Role Phone Jonatan Worley MD Primary Care Provider [phone] Reason for Visit * Reason Comments Med Refill Encounter Details Date Type Department Care Team (Late Contact Info) Description 03/15/2022 Refill [facility] [address] [address] Raji Shook MD [address] [address] Diabetes mellitus with renal manifestations, type II or unspecified type, uncontrolled ([facility]) Social History Tobacco Use Types [...] (Late Contact Info) Description 09/23/2024 3:40 PM BLUEPRINT DEVELOPER Office Visit [facility] 5003 [facility] 1 [place] [address] Rosa Delgado NP 5003 [facility] 1 [place], [place] [phone] documented as of this encounter Visit Diagnoses Diagnosis Diabetes mellitus with renal manifestations, type II or unspecified type, uncontrolled ([facility]) Diabetes mellitus with renal manifestations, type II or unspecified type, uncontrolled documented in this encounter Care Teams Supervisor [employer]umin[employer] Fab[employer]ation Relationship Specialty Start Date End Date Jonatan Worley MD [address] [place] [address] PCP - General 06/06/21 documented as of this encounter
--- OUTSIDE RECORDS SUMMARY | 2024-08-29 03:48 | XMS_ITS | Encounter Summary ---
Author Organization [facility] utial[facility] Address [address] [place] [address] Phone Care Team Providers Care Handbag Parts Cutter Name Role Phone Jonatan Worley MD Primary Care Provider [phone] Reason for Visit * Reason Comments Med Refill Encounter Details Date Type Department Care Team (Late st Contact Info) Description 11/02/2021 Refill [facility] [address] [phone] Raji Shook MD [address] [address] Diabetes mellitus with renal manifestations, type II or unspecified type, uncontrolled ([facility]) Social History Tobacco Use Types [...] st Contact Info) Description 09/23/2024 3:40 PM LAPEL STITCHER Office Visit [facility] 5003 [facility] 1 [place] [address] Rosa Delgado NP 5003 [facility] 1 [place] [address] documented as of this encounter Visit Diagnoses Diagnosis Diabetes mellitus with renal manifestations, type II or unspecified type, uncontrolled ([facility]) Diabetes mellitus with renal manifestations, type II or unspecified type, uncontrolled documented in this encounter Care Teams Handbag Parts Cutter Relationship Specialty Start Date End Date Jonatan Worley MD [address] [place] [address] PCP - General 06/06/21 documented as of this encounter
--- OUTSIDE RECORDS SUMMARY | 2024-08-29 03:48 | XMS_ITS | Encounter Summary ---
Author Organization [facility]ialmas Address [address] [place] [address] Phone Care Team Providers Care Clinic Office Assistant Name Role Phone Jonatan Worley MD Primary Care Provider [phone] Reason for Visit * Reason Comments Med Refill Encounter Details Date Type Department Care Team (Late st Contact Info) Description 06/21/2022 Refill [facility] 2100 [facility] 206 [place] [address] Raji Shook MD 5003 [facility] 1 [place] [address] Diabetes mellitus with renal manifestations, type II or unspecified type, uncontrolled ([facility]) Social History Tobacco Use Types Packs/Day Years [...] encounter Miscellaneous Notes * Telephone Encounter - Mirian Starkey MA - 06/21/2022 10:15 AM CDT Too soon for refill documented in this encounter Plan of Treatment Upcoming Encounters Date Type Department Care Team (Late Contact Info) Description 09/23/2024 3:40 PM GAUGE AND INSTRUMENT INSPECTOR Office Visit [facility] 5003 [facility] 1 [place] [address] Rosa Delgado, GLOVE PARTS CUTTER [address] [facility] 1 [place] [address] documented as of this encounter Visit Diagnoses Diagnosis Diabetes mellitus with renal manifestations, type II or unspecified type, uncontrolled ([facility]) Diabetes mellitus with renal manifestations, type II or unspecified type, uncontrolled documented in this encounter Care Teams Clinic Office Assistant Relationship Specialty Start Date End Date Jonatan Worley MD [address] [place] [phone] PCP - General 06/06/21 documented as of this encounter
--- OUTSIDE RECORDS SUMMARY | 2024-08-29 03:48 | XMS_ITS | Encounter Summary ---
Author Organization [facility] Ilana petersen Address [address] [place] [address] Phone Care Team Providers Care Force Dispatcher Name Role Phone Jonatan Worlye MD Primary Care Provider Reason for Visit * Reason Comments CKD Encounter Details Date Type Department Care Team ([facility] st Contact Info) Description 10/03/2022 11:40 AM WOODWORKING CRAFTSMAN Telemedicine [facility] [address] [facility] 1 [place] [address] Rosie Hernandez NP [address] [address] Chronic kidney disease, Stage IV (severe) (CMS-HCC) (Primary Dx); Essential (primary) hypertension; Diabetes mellitus with renal manifestations, type II or unspecified type, uncontrolled (CMS-HCC); Anemia in chronic kidney disease; Atrophy of kidney Social History Tobacco Use Types Packs/Day Years Used Date Smoking Tobacco: Never Smokeless Tobacco: Never Tobacco Cessation:Counseling Given: Not Answered Alcohol Use Standard Drinks/Week Comments Never 0 [...] - Height 170.2 cm (5' 7 ) 10/03/2022 8:38 AM WOODWORKING CRAFTSMAN Body Mass Index - - documented in this encounter Progress Notes * Rosie Hernandez NP - 10/03/2022 11:40 AM CST Patient: Arely Ernandez Birthdate: 1960 PCP: Jonatan Worley MD Reason for visit: Visit Date: 10/03/2022 CHIEF COMPLAINT CKD INTERIM HISTORY Arely Ernandez is a 61 y.o. female presenting with a past medical history of DM that is mostly controlled on oral medication and diet, glaucoma, and HTN. She has h/o proteinuria and has not had anyrecent ACR recently due to non collection at the lab. Creatinine with fluctuation but is currently 2.44 mg/dL which is baseline range. Reports she is doing well and is currently feeling the best she has in a long while. No SOB or NVD. Swelling is currently better than baseline. No urinary complaints. . PAST MEDICAL HISTORY Past Medical History: Diagnosis [...] day ??? ergocalciferol (VITAMIN D-2) 1.25 MG (38497 UT) capsule Take 50,000 Units by mouth [...] (L) 12/24/2021 EGFRAA 30 (L) 12/24/2021 EGFRCR 22 (L) 09/26/2022 CREATININE 2.44 (H) 09/26/2022 CREATININEUR 43 12/24/2021 GLUCOSE 131 (H) 09/26/2022 PTH 67 09/26/2022 HCT 30.9 (L) 09/26/2022 BUN 53 (H) 09/26/2022 NA 136 09/26/2022 K 5.2 09/26/2022 CL 111 (H) 09/26/2022 CO2 21 09/26/2022 ALBUMIN 3.3 (L) 09/26/2022 CA 8.9 09/26/2022 CA 8.9 09/26/2022 ASSESSMENT AND PLAN Assessment/Plan Diagnoses and all orders for this visit: Chronic kidney disease, Stage IV (severe) ([facility]) Stable renal function. Has fluctuations in creatinine and this typically happens when she is havingchanges in hydration status. We did discuss this today. Lab has on multiple occassions not collected full ordered panel including urine studies. Patient reports she even asked them on recent collection and they declined. She will ensure urine studies collected for follow up. Goals of treatment include tight control of BP and blood sugar, avoid NSAIDS, and maintain hydration. Visit today via phone at [phone], while patient at her residence with spouse present, [id number] minutes. Will follow up in 4 months with repeat labs. - CBC (Includes Diff/PLT); Future - PTH Intact w/ Calcium; Future - Renal Function Panel; Future - Albumin/Creatinine Ratio, Random, Urine ([facility] Only); Future - Urinalysis, Routine; Future Essential (primary) hypertension Goal BP to be less than 130/80 Currently near goal range per reviewed home readings. Today's reading reported to be 146/77 Diabetes mellitus with renal manifestations, type II or unspecified type, uncontrolled ([facility]) Goal A1C to be less than 7 Had elevated readings at prior appt but improving as of late with this AM FSBS 115 Anemia in chronic kidney disease Stable and will monitor Atrophy of kidney ROSIE HERNANDEZ NP documented in this encounter Plan of Treatment Upcoming Encounters Date Type Department Care Team (Late Contact Info) Description 09/23/2024 3:40 PM WOODWORKING CRAFTSMAN Office Visit [facility] [address] [facility], [address] [place] [address] Rosie Hernandez NP [address] [facility] Juan M [address] [place], [place] [phone] Scheduled Orders Name Type Priority Associated Diagnoses Orde r Schedule CBC (Includes Diff/PLT) Lab Routine Chronic kidney disease, Stage IV (severe) ([facility]) Expected: 12/31/2022, Expires: 10/03/2023 PTH Intact w/ Calcium Lab Routine Chronic kidney disease, Stage IV (severe) ([facility]) Expected: 12/31/2022, Expires: 10/03/2023 Renal Function Panel Lab Routine Chronic kidney disease, Stage IV (severe) ([facility]) Expected: 12/31/2022, Expires: 10/03/2023 Albumin/Creatinine Ratio, Random, Urine ([facility] Only) Lab Routine Chronic kidney disease, Stage IV (severe) ([facility]) Expected: 12/31/2022, Expires: 10/03/2023 Urinalysis, Routine Lab Routine Chronic kidney disease, Stage IV (severe) ([facility]) Expected: 12/31/2022, Expires: 10/03/2023 documented as of this encounter Visit Diagnoses Diagnosis Chronic kidney disease, Stage IV (severe) ([facility])- Primary Chronic kidney disease, Stage IV (severe) Essential (primary) hypertension Diabetes mellitus with renal manifestations, type II or unspecified type, uncontrolled ([facility]) Diabetes mellitus with renal manifestations, type II or unspecified type, uncontrolled Anemia in chronic kidney disease Atrophy of kidney documented in this encounter Care Teams Force Dispatcher Relationship Specialty Start Date End Date Jonatan Worley MD [address] [place] [address] PCP - General 06/06/21 documented as of this encounter
--- OUTSIDE RECORDS SUMMARY | 2024-08-29 03:48 | XMS_ITS | Encounter Summary ---
Author Organization [facility] Ilana petersen Address [address] [place] [address] Phone Care Team Providers Care Warp Placer Name Role Phone Jonatan Worley MD Primary Care Provider [phone] Encounter Details Date Type Department Care Team ([facility] Contact Info) Description 09/26/2022 Orders Only [facility] [address] [place] [address] 1 [place], [place] [phone] Rosa Delgado NP [address] [address] Social History Tobacco Use Types [...] (Late Contact Info) Description 09/23/2024 3:40 PM COAT EXAMINER Office Visit [facility] 5[address] [facility] 1 [place], [place] [phone] Rosa Delgado NP [address] [id number] documented as of this encounter Procedures Procedure Name Priority Date/Time Associated Diagnosis Comments CBC (INCLUDES DIFFERENTIAL/PLATEL ETS) Routine 09/26/2022 10:33 AM COAT EXAMINER RENAL FUNCTION PANEL (RFP) Routine 09/26/2022 10:33 AM COAT EXAMINER IRON TIBC AND FERRITIN PANEL Routine 09/26/2022 10:33 AM COAT EXAMINER PTH INTACT AND CALCIUM, SERUM Routine 09/26/2022 10:33 AM COAT EXAMINER documented in this encounter Results * (ABNORMAL) Renal Function Panel (RFP) (09/26/2022 10:33 AM COAT EXAMINER) Pathologist [facility] Glucose, Serum/Plasma 131(H) 65 - 99 mg/dL [facility] Comment: ? Fasting reference interval For someone without known diabetes, a glucose value >125 mg/dL indicates that they may have diabetes and this should be confirmed with a follow-up test. Urea nitrogen, Serum/Plasma (BUN) 53(H) 7 - 25 mg/dL [facility] ([facility]) Creatinine, Serum/Plasma 2.44(H) 0.50 - 1.05 mg/dL [facility]) Estimated Glomerular Filtration Rate (eGFR) 22(L) > OR = 60 mL/min/1.7 3m2 [facility] ([facility]) Comment: The eGFR is based on the CKD-EPI 202 equation. To calculate the new eGFR from a previous Creatinine or Cystatin C result, go to https://www.kidney.org/professionals/ kdoqi/gfr%5Fcalculator Urea nitrogen/Creati nine, Serum/Plasma 22 6 - 22 (calc) [facility] ([facility]) Sodium, Serum/Plasma 136 135 - 146 mmol/L [facility]) Potassium, Serum/Plasma 5.2 3.5 - 5.3 mmol/L [facility]) Chloride, Serum/Plasma 111(H) 98 - 110 mmol/L [facility]) Carbon dioxide CO2), total, Serum/Plasma 21 20 - 32 mmol/L [facility]) Calcium, Serum/Plasma 8.9 8.6 - 10.4 mg/dL [facility]) Phosphate, Serum/Plasma 4.9(H) 2.5 - 4.5 mg/dL [facility]) Albumin, Serum/Plasma 3.3(L) 3.6 - 5.1 g/dL [facility]) 09/26/2022 10:3 3 AM COAT EXAMINER 09/26/2022 10:35 AM COAT EXAMINER Narrative [facility] ([facility]) - 09/27/2022 6:13 AM COAT EXAMINER FASTING:YES FASTING: YES Resulting Agency Comment Performing Organization Information: ?Site ID: [place] ?Name: [facility] ?Address: [address] [place] [id number] ?Director: Odalys Bangura MD Rosa Delgado NP LAB BLOOD ORDERABLES [facility] ([facility]) * PTH Intact and Calcium, Serum (09/26/2022 10:33 AM COAT EXAMINER) PTH, Intact, Serum/Plasma 67 16 - 77 pg/mL [facility] ([facility]) Comment: Interpretive Guide ?Intact PTH ? Calcium ? ------- Normal Parathyroid ?Normal ? Normal Hypoparathyroidism ?Low or Low Normal ?Low Hyperparathyroidism ?? Primary ?Normal or High ? High ?? Secondary ?High ? Normal or Low ?? Tertiary ? High ? High Non-Parathyroid ?? Hypercalcemia ?Low or Low Normal ?High Calcium, Serum/Plasma 8.9 8.6 - 10.4 mg/dL [facility]) 09/26/2022 10:3 3 AM COAT EXAMINER 09/26/2022 10:35 AM COAT EXAMINER Narrative [facility] ([facility]) - 09/27/2022 6:13 AM COAT EXAMINER FASTING:YES FASTING: YES Resulting Agency Comment Performing Organization Information: ?Site ID: [id number] ?Name: [facility] ?Address: [address] [place] [id number] ?Director: Odalys Bangura MD Rosa Delgado NP LAB BLOOD ORDERABLES [facility] ([facility]) * Iron TIBC And Ferritin Panel (09/26/2022 10:33 AM COAT EXAMINER) Iron, Serum/Plasma 62 45 - 160 mcg/dL [facility]) Iron binding capacity, Serum/Plasma 257 250 - 450 mcg/dL (calc) [facility]) Iron saturation, Serum/Plasma 24 16 - 45 % (calc) [facility]) Ferritin, Serum/Plasma 66 16 - 232 ng/mL [facility]) 09/26/2022 10:3 3 AM COAT EXAMINER 09/26/2022 10:35 AM COAT EXAMINER Narrative [facility] ([facility]) - 09/27/2022 6:13 AM COAT EXAMINER FASTING:YES FASTING: YES Resulting Agency Comment Performing Organization Information: ?Site ID: [id number] ?Name: [facility] ?Address: [address] [id number] ?Director: Odalys Bangura MD Rosa Delgado NP LAB BLOOD ORDERABLES [facility] ([facility]) * (ABNORMAL) CBC (includes Differential/Platelets) (09/26/2022 10:33 AM COAT EXAMINER) Leukocytes, Blood 10.3 3.8 - 10.8 Thousand/u L [facility]) Erythrocytes (RBC) 3.55(L) 3.80 - 5.10 Million/uL [facility]) Hemoglobin (HGB) 10.2(L) 11.7 - 15.5 g/dL [facility]) Hematocrit (HCT) 30.9(L) 35.0 - 45.0 % [facility]) MCV 87.0 80.0 - 100.[address] [facility]) MCH 28.7 27.0 - 33.[address] [facility]) MCHC 33.0 32.0 - 36.0 g/dL [facility]) Erythrocyte Distribution Width (RDW) 12.6 11.0 - 15.0 % [facility]) Platelets, Blood 191 140 - 400 Thousand/u L [facility]) Platelet mean volume, Blood 11.7 7.5 - 12.[address] [facility]) Neutrophils, Blood 7,076 1,500 - 7,800 cells/uL [facility]) Lymphocytes, Blood 1,669 850 - 3,900 cells/uL [facility]) Monocytes, Blood 721 200 - 950 cells/uL [facility]) Eosinophils, Blood 752(H) 15 - 500 cells/uL [facility]) Basophils, Blood 82 0 - 200 cells/uL [facility]) Neutrophils/100 leukocytes, Blood 68.7 % [facility]) Lymphocytes/100 leukocytes, Blood 16.2 % [facility] Monocytes/100 leukocytes, Blood 7.0 % [facility] Eosinophils/100 leukocytes, Blood 7.3 % [facility] Basophils/100 leukocytes, Blood 0.8 % [facility]) 09/26/2022 10:3 3 AM COAT EXAMINER 09/26/2022 10:35 AM COAT EXAMINER Narrative [facility] - 09/27/2022 6:13 AM COAT EXAMINER FASTING:YES FASTING: YES Resulting Agency Comment Performing Organization Information: ?Site ID: [place] ?Name: [facility] ?Address: [facility] [address] [phone] ?Director: Odalys Bangura MD Rosa Delgado CONTENT CURATOR LAB BLOOD ORDERABLES [facility] documented in this encounter Visit Diagnoses Not on filedocumented in this encounter Care Teams Warp Placer Relationship Specialty Start Date End Date Jon[place] [address] PCP - General 06/06/21 documented as of this encounter
--- OUTSIDE RECORDS SUMMARY | 2024-08-29 03:48 | XMS_ITS | Encounter Summary ---
Author Organization [facility]ician Ilana utialmas Address [address] [place] [phone] Phone Care Team Providers Care Drilling Supervisor Name Role Phone Jonatan Worley MD Primary Care Provider [phone] Reason for Visit * Reason Comments Med Refill Encounter Details Date Type Department Care Team (Late Contact Info) Description 02/10/2022 Refill [facility] [address] [address] Raji Shook MD [address] [address] Diabetes mellitus with renal manifestations, type II or unspecified type, uncontrolled ([facility]) Social History Tobacco Use [...] (Late Contact Info) Description 09/23/2024 3:40 PM BACKEND DEVELOPER Office Visit [facility] 5[address] [facility] 1 [place] [address] Rosa Delgado NP [address] [phone] documented as of this encounter Visit Diagnoses Diagnosis Diabetes mellitus with renal manifestations, type II or unspecified type, uncontrolled ([facility]) Diabetes mellitus with renal manifestations, type II or unspecified type, uncontrolled documented in this encounter Care Teams Drilling Supervisor Relationship Specialty Start Date End Date Jonatan Worley MD [address] [place] [address] PCP - General 06/06/21 documented as of this encounter
--- OUTSIDE RECORDS SUMMARY | 2024-08-29 03:48 | XMS_ITS | Encounter Summary ---
Author Organization [facility] Ilana utialmas Address [address] [place] [address] Phone Care Team Providers Care Finance Associate Name Role Phone Jonatan Worley MD Primary Care Provider [phone] Reason for Visit * Reason Comments Med Refill Encounter Details Date Type Department Care Team (Late st Contact Info) Description 07/09/2022 Refill [facility] [address] [phone] Raji Shook MD [address] [address] Diabetes mellitus with renal manifestations, type II or unspecified type, uncontrolled ([facility]) Social History [...] st Contact Info) Description 09/23/2024 3:40 PM PROCESSING OPERATOR Office Visit [facility] [address] [facility] 1 [place] [address] Rosa Delgado NP 5003 [facility] 1 [place] [address] documented as of this encounter Visit Diagnoses Diagnosis Diabetes mellitus with renal manifestations, type II or unspecified type, uncontrolled ([facility]) Diabetes mellitus with renal manifestations, type II or unspecified type, uncontrolled documented in this encounter Care Teams Finance Associate Relationship Specialty Start Date End Date Jonatan Worley MD [address] [place] [address] PCP - General 06/06/21 documented as of this encounter
--- OUTSIDE RECORDS SUMMARY | 2024-08-29 03:48 | XMS_ITS | Encounter Summary ---
Author Organization Isaac Physician Ilana petersen Address [address] [place] [phone] Phone Care Team Providers Care Electrical Assembly Technician Name Role Phone Jonatan Worley MD Primary Care Provider Encounter Details Date Type Department Care Team ([facility] [address] Contact Info) Description 06/07/2022 Orders Only [facility] [address] [facility] 1 [place], [place] [phone] Rosa Delgado NP [address] [address] Social History Tobacco Use Types [...] (Late Contact Info) Description 09/23/2024 3:40 PM INSIDE SALES ADVISOR Office Visit [facility] 5[address] [facility] 1 [place], [place] [phone] Rosa Delgado NP [address] [phone] documented as of this encounter Procedures Procedure Name Priority Date/Time Associated Diagnosis Comments CBC (INCLUDES DIFFERENTIAL/PLATEL ETS) Routine 06/07/2022 12:35 PM CDT RENAL FUNCTION PANEL (RFP) Routine 06/07/2022 12:35 PM CDT IRON TIBC AND FERRITIN PANEL Routine 06/07/2022 12:35 PM CDT PTH INTACT AND CALCIUM, SERUM Routine 06/07/2022 12:35 PM CDT documented in this encounter Results * (ABNORMAL) CBC (includes Differential/Platelets) (06/07/2022 12:35 PM CDT) Leukocytes, Blood 7.8 3.8 - 10.8 Thousand/u L [facility] ([facility]) Erythrocytes (RBC) 3.41(L) 3.80 - 5.10 Million/uL [facility] ([facility]) Hemoglobin (HGB) 10.1(L) 11.7 - 15.5 g/dL [facility] ([facility]) Hematocrit (HCT) 30.7(L) 35.0 - 45.0 % [facility] ([facility]) MCV 90.0 80.0 - 100.0 fL [facility] ([facility]) MCH 29.6 27.0 - 33.[address] [facility] ([facility]) MCHC 32.9 32.0 - 36.0 g/dL [facility] ([facility]) Erythrocyte Distribution Width (RDW) 13.0 11.0 - 15.0 % [facility] ([facility]) Platelets, Blood 193 140 - 400 Thousand/u L [facility] ([facility]) Platelet mean volume, Blood 11.3 7.5 - 12.5 fL [facility] ([facility]) Neutrophils, Blood 5,101 1,500 - 7,800 cells/uL [facility] ([facility]) Lymphocytes, Blood 1,466 850 - 3,900 cells/uL [facility] ([facility]) Monocytes, Blood 460 200 - 950 cells/uL [facility] ([facility]) Eosinophils, Blood 710(H) 15 - 500 cells/uL [facility] ([facility]) Basophils, Blood 62 0 - 200 cells/uL [facility] ([facility]) Neutrophils/100 leukocytes, Blood 65.4 % [facility] ([facility]) Lymphocytes/100 leukocytes, Blood 18.8 % [facility] ([facility]) Monocytes/100 leukocytes, Blood 5.9 % [facility] ([facility]) Eosinophils/100 leukocytes, Blood 9.1 % [facility] ([facility]) Basophils/100 leukocytes, Blood 0.8 % [facility] ([facility]) 06/07/2022 12:3 5 PM CDT 06/07/2022 12:37 PM CDT Narrative [facility] ([facility]) - 06/08/2022 9:16 AM CDT FASTING:NO FASTING: NO Resulting Agency Comment Performing Organization Information: ?Site ID: [place] ?Name: [facility] ?Address: [address] [place] [address] [place] [address] ?Director: Javier Marquez D.O., MPH Rosa Delgado NP LAB BLOOD ORDERABLES [facility] ([facility]) * (ABNORMAL) Renal Function Panel (RFP) (06/07/2022 12:35 PM CDT) [facility] Glucose, Serum/Plasma 192(H) 65 - 139 mg/dL [facility] ([facility]) Comment: ? Non-fasting reference interval Urea nitrogen, Serum/Plasma (BUN) 38(H) 7 - 25 mg/dL [facility] ([facility]) Creatinine, Serum/Plasma 2.10(H) 0.50 - 1.05 mg/dL [facility] ([facility]) Estimated Glomerular Filtration Rate (eGFR) 26(L) > OR = 60 mL/min/1.7 3m2 [facility] ([facility]) Comment: The eGFR is based on the CKD-EPI 2020 equation. To calculate the new eGFR from a previous Creatinine or Cystatin C result, go to https://www.kidney.org/professionals/ kdoqi/gfr%5Fcalculator Urea nitrogen/Creati nine, Serum/Plasma 18 6 - 22 (calc) [facility] ([facility]) Sodium, Serum/Plasma 140 135 - 146 mmol/L [facility] ([facility]) Potassium, Serum/Plasma 5.0 3.5 - 5.3 mmol/L [facility] ([facility]) Chloride, Serum/Plasma 111(H) 98 - 110 mmol/L [facility] ([facility]) Carbon dioxide CO2), total, Serum/Plasma 23 20 - 32 mmol/L [facility] ([facility]) Calcium, Serum/Plasma 8.5(L) 8.6 - 10.4 mg/dL [facility] ([facility]) Phosphate, Serum/Plasma 5.3(H) 2.5 - 4.5 mg/dL [facility] ([facility]) Albumin, Serum/Plasma 3.2(L) 3.6 - 5.1 g/dL [facility] ([facility]) 06/07/2022 12:3 5 PM CDT 06/07/2022 12:37 PM CDT Narrative [facility] ([facility]) - 06/08/2022 9:16 AM CDT FASTING:NO FASTING: NO Resulting Agency Comment Performing Organization Information: ?Site ID: [place] ?Name: [employer] ?Address: [address] [address] [place] [address] ?Director: Javier Marquez D.O., MPH Rosa Delgado NP LAB BLOOD ORDERABLES [facility] ([facility]) * (ABNORMAL) PTH Intact and Calcium, Serum (06/07/2022 12:35 PM CDT) PTH, Intact, Serum/Plasma 92(H) 16 - 77 pg/mL [facility] ([facility]) Comment: Interpretive Guide ?Intact PTH ? Calcium ? ------- Normal Parathyroid ?Normal ? Normal Hypoparathyroidism ?Low or Low Normal ?Low Hyperparathyroidism ?? Primary ?Normal or High ? High ?? Secondary ?High ? Normal or Low ?? Tertiary ? High ? High Non-Parathyroid ?? Hypercalcemia ?Low or Low Normal ?High Calcium, Serum/Plasma 8.5(L) 8.6 - 10.4 mg/dL [facility] (ST) 06/07/2022 12:3 5 PM CDT 06/07/2022 12:37 PM CDT Narrative [facility] ([facility]) - 06/08/2022 9:16 AM CDT FASTING:NO FASTING: NO Resulting Agency Comment Performing Organization Information: ?Site ID: [place] ?Name: [facility] ?Address: [address] [place] [address] ?Director: Javier Marquez D.O., MPH Rosa Delgado NP LAB BLOOD ORDERABLES [facility] ([facility]) * (ABNORMAL) Iron TIBC And Ferritin Panel (06/07/2022 12:35 PM CDT) Iron, Serum/Plasma 57 45 - 160 mcg/dL [facility] ([facility]) Iron binding capacity, Serum/Plasma 238(L) 250 - 450 mcg/dL (calc) [facility] ([facility]) Iron saturation, Serum/Plasma 24 16 - 45 % (calc) [facility] ([facility]) Ferritin, Serum/Plasma 68 16 - 232 ng/mL [facility] ([facility]) 06/07/2022 12:3 5 PM CDT 06/07/2022 12:37 PM CDT Narrative [facility] ([facility]) - 06/08/2022 9:16 AM CDT FASTING:NO FASTING: NO Resulting Agency Comment Performing Organization Information: ?Site ID: [place] ?Name: [employer] ?Address: [address] [place] [id number] ?Director: Javier Marquez D.O., MPH Rosa Delgado PERSONALIZED LIVING MANAGER LAB BLOOD ORDERABLES [facility] ([facility]) documented in this encounter Visit Diagnoses Not on filedocumented in this encounter Care Teams Electrical Assembly Technician Relationship Specialty Start Date End Date Jonatan Worley MD [address] [place] [id number] PCP - General 06/06/21 documented as of this encounter
--- OUTSIDE RECORDS SUMMARY | 2024-08-29 03:48 | XMS_ITS | Encounter Summary ---
Author Organization Isaac Physician Ilana utialmas Address [address] [place] [phone] Phone Care Team Providers Care Clerical Dentist Assistant Name Role Phone Jonatan Worley MD Primary Care Provider [phone] Encounter Details Date Type Department Care Team ([facility] Contact Info) Description 06/21/2021 Orders Only [facility] [address] [address] Raji Shook MD [address] [address] Social History Tobacco Use [...] (Late Contact Info) Description 09/23/2024 3:40 PM MANAGER DISTRIBUTION CENTER Office Visit [facility] 5[address] [facility] 1 [place] [address] Rosa Delgado NP [address] [address] documented as of this encounter Procedures Procedure Name Priority Date/Time Associated Diagnosis Comments COMPLEMENT C3 Routine 06/21/2021 8:50 AM CDT HEPATITIS C AB W/REFL TO HCV RNA, QN, PCR, SERUM Routine 06/21/2021 8:50 AM CDT CBC (INCLUDES DIFFERENTIAL/PLATELE TS) Routine 06/21/2021 8:50 AM CDT BASIC METABOLIC PANEL (BMP) Routine 06/21/2021 8:50 AM CDT COMPLEMENT TOTAL (CH50) Routine 06/21/2021 8:50 AM CDT HEPATITIS B CORE AB, TOTAL, SERUM Routine 06/21/2021 8:50 AM CDT HEPATITIS B SURFACE AB, QL, SERUM Routine 06/21/2021 8:50 AM CDT HEPATITIS B SURFACE AG (HBSAG) W/ REFLEX CONFIRM Routine 06/21/2021 8:50 AM CDT COMPLEMENT C4 Routine 06/21/2021 8:50 AM CDT ANTINUCLEAR ANTIBODIES (DULCE), IFA W/ REFL TITER AND PATTERN Routine 06/21/2021 8:50 AM CDT documented in this encounter Results * Antinuclear Antibodies (DULCE), IFA w/ Refl Titer and Pattern (06/21/2021 8:50 AM CDT) DULEC, Serum NEGATIVE NEGATIVE [facility] ([facility]) Comment: DULCE IFA is a first line screen for detecting the presence of up to approximately 150 autoantibodies in various autoimmune diseases. A negative DULCE IFA result suggests an DULCE-associated autoimmune disease is not present at this time, but is not definitive. If there is high clinical suspicion for Sjogren's syndrome, testing for anti-SS-A/Ro antibody should be considered. Anti-Berta-1 antibody should be considered for clinically suspected inflammatory myopathies. AC-0: Negative International Consensus on DULCE Patterns (https://doi.org/10.1515/calp-4686-3942) For additional information, please refer to http://education.QuestDiagnostics.piSociety/faq/NQQ359 (This link is being provided for informational/ educational purposes only.) ?? 06/21/2021 8:50 AM CDT 06/21/2021 8:54 AM CDT Narrative [facility] ([facility]) - 06/22/2021 2:14 PM CDT FASTING:NO PATIENT UNABLE TO VOID; ADVISED TO RETURN FOR COLLECTION. FASTING: NO Resulting Agency Comment Performing Organization Information: ?Site ID: [place] ?Name: [employer] ?Address: [facility] [place] [address] ?Director: Javier Marquez D.O., MPH Raji Shook MD LAB BLOOD ORDERABLES Performing Organization Address [facility] de Phone Number [facility] ([facility]) * (ABNORMAL) Complement Total (CH50) (06/21/2021 8:50 AM CDT) Complement total hemolytic CH50, Serum/Plasma >60(H) 31 - 60 U/mL [facility] ([facility]) 06/21/2021 8:50 AM CDT 06/21/2021 8:54 AM CDT Narrative [facility] ([facility]) - 06/22/2021 2:14 PM CDT FASTING:NO PATIENT UNABLE TO VOID; ADVISED TO RETURN FOR COLLECTION. FASTING: NO Resulting Agency Comment Performing Organization Information: ?Site ID: [place] ?Name: [employer] ?Address: [facility] [place] [address] ?Director: Javier Marquez D.O., MPH Raji Shook MD LAB BLOOD ORDERABLES Performing Organization Address [facility] Co de Phone Number [facility] ([facility]) * Complement C4 (06/21/2021 8:50 AM CDT) Complement C4, Serum/Plasma 28 15 - 57 mg/dL [facility] ([facility]) 06/21/2021 8:50 AM CDT 06/21/2021 8:54 AM CDT Narrative [facility] - [facility] ([facility]) - 06/22/2021 2:14 PM CDT FASTING:NO PATIENT UNABLE TO VOID; ADVISED TO RETURN FOR COLLECTION. FASTING: NO Resulting Agency Comment Performing Organization Information: ?Site ID: [place] ?Name: [employer] ?Address: [facility] [place] [address] ?Director: Javier Marquez D.O., MPH Raji Shook MD LAB BLOOD ORDERABLES Performing Organization Address [facility] Phone Number [facility] * Complement C3 (06/21/2021 8:50 AM CDT) Complement C3, Serum/Plasma 125 83 - 193 mg/dL [facility] ([facility]) 06/21/2021 8:50 AM CDT 06/21/2021 8:54 AM CDT Narrative [facility] ([facility]) - 06/22/2021 2:14 PM CDT FASTING:NO PATIENT UNABLE TO VOID; ADVISED TO RETURN FOR COLLECTION. FASTING: NO Resulting Agency Comment Performing Organization Information: ?Site ID: [place] ?Name: [employer] ?Address: [facility] [place] [address] ?Director: Javier Marquez D.O., MPH Raji Shook MD LAB BLOOD ORDERABLES Performing Organization Address [facility] Co de Phone Number [facility] * Hepatitis C AB w/Refl To HCV RNA, QN, PCR, Serum (06/21/2021 8:50 AM CDT) Pathologist [facility] Hepatitis C virus Ab, Serum/Plasma NON-REACTI VE NON-REACT LISA [facility]) Hepatitis C virus Ab Signal/Cutoff, Serum/Plasma 0.01 <1.00 [facility] ([facility]) Comment: HCV antibody was non-reactive. There is no laboratory evidence of HCV infection. In most cases, no further action is required. However, if recent HCV exposure is suspected, a test for HCV RNA (test code 78847) is suggested. For additional information please refer to http://education.Myntra/faq/QCJ30p3 (This link is being provided for informational/ educational purposes only.) 06/21/2021 8:50 AM CDT 06/21/2021 8:54 AM CDT Narrative [facility] - 06/22/2021 2:14 PM CDT FASTING:NO PATIENT UNABLE TO VOID; ADVISED TO RETURN FOR COLLECTION. FASTING: NO Resulting Agency Comment Performing Organization Information: ?Site ID: [place] ?Name: [employer] ?Address: [address] [place], [place] [address] [address] ?Director: Javier Marquez D.O., MPH Raji Shook MD LAB BLOOD ORDERABLES [facility] ([facility]) * Hepatitis B Core AB, Total, Serum (06/21/2021 8:50 AM CDT) Pathologist [facility] Hepatitis B virus core Ab, Serum/Plasma NON-REACTI VE NON-REACTI VE [facility]) 06/21/2021 8:50 AM CDT 06/21/2021 8:54 AM CDT Narrative [facility] ([facility]) - 06/22/2021 2:14 PM CDT FASTING:NO PATIENT UNABLE TO VOID; ADVISED TO RETURN FOR COLLECTION. FASTING: NO Resulting Agency Comment Performing Organization Information: ?Site ID: [place] ?Name: [employer] ?Address: [facility] [place] [address] ?Director: Javier Marquez D.O., MPH Raji Shook MD LAB BLOOD ORDERABLES Performing Organization Address [facility] Co de Phone Number [facility] * Hepatitis B Surface AB, QL, Serum (06/21/2021 8:50 AM CDT) Hepatitis B virus surface Ab, Serum NON-REACTI VE NON-REACTI VE [facility] ([facility]) 06/21/2021 8:50 AM CDT 06/21/2021 8:54 AM CDT Narrative [facility] ([facility]) - 06/22/2021 2:14 PM CDT FASTING:NO PATIENT UNABLE TO VOID; ADVISED TO RETURN FOR COLLECTION. FASTING: NO Resulting Agency Comment Performing Organization Information: ?Site ID: [place] ?Name: [facility] ?Address: [address] [place], [place] [address] [address] ?Director: Javier Marquez D.O., MPH Raji Shook MD LAB BLOOD ORDERABLES Performing Organization Address [facility] Co de Phone Number [facility]) * Hepatitis B Surface Ag (HBsAg) w/ Reflex Confirm (06/21/2021 8:50 AM CDT) Hepatitis B virus surface Ag, Serum/Plasma NON-REACTI VE NON-REACTI VE [facility] ([facility]) 06/21/2021 8:50 AM CDT 06/21/2021 8:54 AM CDT Narrative [facility] ([facility]) - 06/22/2021 2:14 PM CDT FASTING:NO PATIENT UNABLE TO VOID; ADVISED TO RETURN FOR COLLECTION. FASTING: NO Resulting Agency Comment Performing Organization Information: ?Site ID: [place] ?Name: [employer] ?Address: [address] [place] [address] ?Director: Javier Marquez D.O., MPH Raji Shook MD LAB BLOOD ORDERABLES [facility] ([facility]) * (ABNORMAL) CBC (includes Differential/Platelets) (06/21/2021 8:50 AM CDT) Leukocytes, Blood 7.9 3.8 - 10.8 Thousand/u L [facility] ([facility]) Erythrocytes (RBC) 3.36(L) 3.80 - 5.10 Million/uL [facility] ([facility]) Hemoglobin (HGB) 9.9(L) 11.7 - 15.5 g/dL [facility] ([facility]) Hematocrit (HCT) 29.8(L) 35.0 - 45.0 % [facility] ([facility]) MCV 88.7 80.0 - 100.[address] [facility] ([facility]) MCH 29.5 27.0 - 33.[address] [facility] ([facility]) MCHC 33.2 32.0 - 36.0 g/dL [facility] ([facility]) Erythrocyte Distribution Width (RDW) 12.3 11.0 - 15.0 % [facility] ([facility]) Platelets, Blood 218 140 - 400 Thousand/u L [facility] ([facility]) Platelet mean volume, Blood 11.3 7.5 - 12.5 f[address] [facility] ([facility]) Neutrophils, Blood 4,550 1,500 - 7,800 cells/uL [facility] ([facility]) Lymphocytes, Blood 1,920 850 - 3,900 cells/uL [facility] ([facility]) Monocytes, Blood 648 200 - 950 cells/uL [facility] ([facility]) Eosinophils, Blood 711(H) 15 - 500 cells/uL [facility] ([facility]) Basophils, Blood 71 0 - 200 cells/uL [facility] ([facility]) Neutrophils/100 leukocytes, Blood 57.6 % [facility] ([facility]) Lymphocytes/100 leukocytes, Blood 24.3 % [facility] ([facility]) Monocytes/100 leukocytes, Blood 8.2 % [facility] ([facility]) Eosinophils/100 leukocytes, Blood 9.0 % [facility] ([facility]) Basophils/100 leukocytes, Blood 0.9 % [facility] ([facility]) 06/21/2021 8:50 AM CDT 06/21/2021 8:54 AM CDT Narrative [facility] ([facility]) - 06/22/2021 2:14 PM CDT FASTING:NO PATIENT UNABLE TO VOID; ADVISED TO RETURN FOR COLLECTION. FASTING: NO Resulting Agency Comment Performing Organization Information: ?Site ID: [place] ?Name: [employer] ?Address: [address] [place] [address] [place] [address] ?Director: Javier Marquez D.O., MPH Raji Shook MD LAB BLOOD ORDERABLES [facility] ([facility]) * (ABNORMAL) Basic Metabolic Panel (BMP) (06/21/2021 8:50 AM CDT) [facility] Glucose, Serum/Plasma 137 65 - 139 mg/dL [facility] ([facility]) Comment: ? Non-fasting reference interval Urea nitrogen, Serum/Plasma (BUN) 36(H) 7 - 25 mg/dL [facility] ([facility]) Creatinine, Serum/Plasma 1.70(H) 0.50 - 1.05 mg/dL [facility] ([facility]) Comment: For patients >49 years of age, the reference limit for Creatinine is approximately 13% higher for people identified as -Mauritanian. eGFR, non 32(L) > OR = 60 mL/min/1. 73m2 [facility] ([facility]) eGFR, 38(L) > OR = 60 mL/min/1. 73m2 [facility] ([facility]) Urea nitrogen/Creatinin e, Serum/Plasma 21 6 - 22 (calc) [facility] ([facility]) Sodium, Serum/Plasma 145 135 - 146 mmol/L [facility] ([facility]) Potassium, Serum/Plasma 4.6 3.5 - 5.3 mmol/L [facility] ([facility]) Chloride, Serum/Plasma 103 98 - 110 mmol/L [facility] ([facility]) Carbon dioxide CO2), total, Serum/Plasma 22 20 - 32 mmol/L [facility] ([facility]) Calcium, Serum/Plasma 8.7 8.6 - 10.4 mg/dL [facility] ([facility]) 06/21/2021 8:50 AM CDT 06/21/2021 8:54 AM CDT Narrative [facility] ([facility]) - 06/22/2021 2:14 PM CDT FASTING:NO PATIENT UNABLE TO VOID; ADVISED TO RETURN FOR COLLECTION. FASTING: NO Resulting Agency Comment Performing Organization Information: ?Site ID: [place] ?Name: [employer] ?Address: [address] [place] [address] ?Director: Javier Marquez D.O., MPH Raji Shook MD LAB BLOOD ORDERABLES [facility] ([facility]) documented in this encounter Visit Diagnoses Not on filedocumented in this encounter Care Teams Clerical Dentist Assistant Relationship Specialty Start Date End Date Jonatan Worley MD [address] [place] [address] PCP - General 06/06/21 documented as of this encounter
--- OUTSIDE RECORDS SUMMARY | 2024-08-29 03:48 | XMS_ITS | Encounter Summary ---
Author Organization [facility]en Address [address] [place] [address] Phone Care Team Providers Care Service Station Console Operator Name Role Phone Jonatan Worley MD Primary Care Provider [phone] Reason for Visit * Reason Comments CKD Encounter Details Date Type Department Care Team (Late st Contact Info) Description 07/03/2021 10:00 AM DAIRY CATTLE FARMER Office Visit [facility] [address] [place] [id number] Nasra Shook MD [address] [facility] [address] [place] [address] Diabetes mellitus with renal manifestations, type II or unspecified type, uncontrolled (CMS-HCC) (Primary Dx); Chronic kidney disease stage 3B (CMS-HCC); Essential (primary) hypertension; Atrophy of kidney Social History Tobacco Use [...] Sign Reading Time Taken Comments Blood Pressure 150/80 07/03/2021 11:06 AM DAIRY CATTLE FARMER Pulse 78 07/03/2021 10:31 AM DAIRY CATTLE FARMER Temperature - - Respiratory Rate - - Oxygen Saturation - - Inhaled Oxygen Concentration - - Weight 89.4 kg (197 lb) 07/03/2021 10:31 AM DAIRY CATTLE FARMER Height 172.7 cm (5' 8 ) 07/03/2021 10:31 AM DAIRY CATTLE FARMER Body Mass Index 29.95 07/03/2021 10:31 AM DAIRY CATTLE FARMER documented in this encounter Progress Notes * Nasra Shook MD - 07/03/2021 10:00 AM CST Patient: Arely Ernandez Birthdate: 1960 PCP: Jonatan Worley MD Reason for visit: Visit Date: 07/03/2021 CHIEF COMPLAINT CKD INTERIM HISTORY Arely Ernandez is a 60 y.o. female presenting with a past medical history of diabetes mellitus, diabetic retinopathy, hypertension, elevated creatinine levels. Her creatinines have been consistently high now for sufficient time to label this is chronic kidney disease. She has in fact significant proteinuria of 3740 on albumin creatinine ratio. Renal ultrasound showed right kidney to measure 8.3 cm left kidney to measure 11.7 cm in length, atrophy of both kidneys as reported. Work-up which included antinuclear antibody, complement panel, hepatitis profile were all negative. The patient's blood pressure at home seems to be reasonably controlled. Upon recheck in the office after initial reading of 178/112 turned out to be 150/80. No urinary complaints. No new symptomatology. She has some lower extremity swelling and her dose ofdiuretics was discontinued due to presumably to an increase in creatinine level. She is not experiencing hypoglycemic events. She is on Farxiga therapy. She is not on an IAN inhibitor or angiotensin receptor ervin because potassium levels have been as high as 5.5 as noticed in April 2021. She has anxiety. Blood pressure readings high as a result. No other systemic complaints voiced. PAST MEDICAL HISTORY Past Medical History: Diagnosis Date ??? Diabetes mellitus without mention of complication, type II or unspecified type, not stated as uncontrolled ([facility]) ??? Essential hypertension ??? Other and unspecified [...] day ??? ergocalciferol (VITAMIN D-2) 1.25 MG (55290 UT) capsule Take 50,000 Units by mouth 1 (one) timeper week ??? glimepiride (AMARYL) 4 MG tablet Take 4 mg by mouth 1 (one) time each day before breakfast ??? metFORMIN (GLUCOPHAGE) 500 MG tablet TAKE 1 TABLET BY MOUTH TWICE DAILY WITH MORNING MEAL AND WITH EVENING MEAL ??? metoprolol succinate XL (Toprol XL) 50 MG 24 hr tablet Take 50 mg by mouth 1 (one) time each day Do not crush or chew. ??? rosuvastatin (CRESTOR) 5 MG tablet Take 5 mg by mouth 1 (one) time each day ??? Dapagliflozin Propanediol (Farxiga) 10 MG tablet Take 1 tablet by mouth 1 (one) time each day 30 tablet 3 No current facility-administered medications for this visit. ALLERGIES Allergies Allergen Reactions ??? Penicillins REVIEW OF SYSTEMS Review of Systems Negative VITALS BP 150/80 Pulse 78 Ht 5' 8 (1.727 m) Wt 197 lb (89.4 kg) BMI 29.95 kg/m?? BSA 2.07 m?? PHYSICAL EXAM Physical Exam Well-developed well-nourished, menstrual mucosa, normal skin turgor, JVD negative, regular rate rhythm, no gallop, no rub, equal breath sounds, no rales or wheeze, soft nontender abdomen, edema plus bilaterally, alert oriented x3, no tremor RECENT LABS Lab Results Component Value Date EGFR 32 (L) 06/21/2021 CREATININE 1.70 (H) 06/21/2021 GLUCOSE 137 06/21/2021 HCT 29.8 (L) 06/21/2021 BUN 36 (H) 06/21/2021 NA 145 06/21/2021 K 4.6 06/21/2021 CL 103 06/21/2021 CO2 22 06/21/2021 CA 8.7 06/21/2021 IMAGES No image results found. ASSESSMENT AND PLAN Assessment/Plan Diagnoses and all orders for this visit: Diabetes mellitus with renal manifestations, type II or unspecified type, uncontrolled ([facility]) Can expect progressive renal disease. Renal biopsy is not warranted. I discussed that we cannot useACE inhibitor's or angiotensin receptor blockers due to the borderline nature of the renal functionbut not only that she has renal atrophy, and also has had high potassium readings. Working diagnosis diabetic renal disease based on the clinical findings. I discussed about dapagliflozin due to its beneficial effects on the heart and the kidney. She willmake more urine. Probably lose some weight as well. Family is agreeable as well as the patient to proceed. I am ordering this. Hopefully will get it covered by insurance. - Dapagliflozin Propanediol (Farxiga) 10 MG tablet; Take 1 tablet by mouth 1 (one) time each day - Albumin/Creatinine Ratio, Random, Urine; Future - Urinalysis, Complete, w/ Reflex to Culture; Future Chronic kidney disease stage 3B ([facility]) At stage IIIb. Stable - PTH Intact w/o Calcium, Serum; Future - Renal Function Panel (RFP); Future - CBC (includes Platelets / NO Differential); Future Essential (primary) hypertension Blood pressure runs high. I am increasing the amlodipine to 10 mg daily Atrophy of kidney We will get renal arterial Doppler studies Blood Pressure for this visit is 150/80. The follow up plan to address blood pressure is increase amlodipine dose. The patient should return for BP check in 4 months. NASRA SHOOK MD documented in this encounter Plan of Treatment Upcoming Encounters Date Type Department Care Team (Late st Contact Info) Description 09/23/2024 3:40 PM DAIRY CATTLE FARMER Office Visit [facility] [address] [facility], [address] [place] [address] Rosa Delgado NP [address] [facility] [address] [place] [address] Scheduled Orders Name Type Priority Associated Diagnoses Orde r Schedule Albumin/Creatinine Ratio, Random, Urine Lab Routine Diabetes mellitus with renal manifestations, type II or unspecified type, uncontrolled ([facility]) 1 Occurrences starting 07/03/2021 until 12/31/2021 Urinalysis, Complete, w/ Reflex to Culture Lab Routine Diabetes mellitus with renal manifestations, type II or unspecified type, uncontrolled ([facility]) 1 Occurrences starting 07/03/2021 until 12/31/2021 PTH Intact w/o Calcium, Serum Lab Routine Chronic kidney disease stage 3B ([facility]) Expected: 12/31/2021, Expires: 12/31/2021 Renal Function Panel (RFP) Lab Routine Chronic kidney disease stage 3B ([facility]) Expected: 12/31/2021, Expires: 07/03/2022 CBC (includes Platelets / NO Differential) Lab Routine Chronic kidney disease stage 3B ([facility]) Expected: 12/31/2021, Expires: 12/31/2021 documented as of this encounter Visit Diagnoses Diagnosis Diabetes mellitus with renal manifestations, type II or unspecified type, uncontrolled ([facility])- Primary Diabetes mellitus with renal manifestations, type II or unspecified type, uncontrolled Chronic kidney disease stage 3B ([facility]) Essential (primary) hypertension Atrophy of kidney documented in this encounter Care Teams Service Station Console Operator Relationship Specialty Start Date End Date Jonatan Worley MD [address] [place] [address] PCP - General 06/06/21 documented as of this encounter
--- OUTSIDE RECORDS SUMMARY | 2024-08-29 03:48 | XMS_ITS | Encounter Summary ---
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 Name Role Phone Jonatan Worley MD Primary Care Provider [phone] Reason for Visit * Reason Comments CKD Encounter Details Date Type Department Care Team ([facility] st Contact Info) Description 04/11/2022 2:20 PM CDT Office Visit [facility] [address] [facility] [address] [place] [address] Rosie Hernandez, DBA MANAGER [address] [address] Chronic kidney disease, Stage IV [...] Sign Reading Time Taken Comments Blood Pressure 156/82 04/11/2022 2:20 PM CDT Pulse 70 04/11/2022 2:20 PM CDT Temperature 36.8 ??C (98.3 ??F) 04/11/2022 2:20 PM CD T Respiratory Rate - - Oxygen Saturation - - Inhaled Oxygen Concentration - - Weight 96.6 kg (213 lb) 04/11/2022 2:20 PM CDT Height 170.2 cm (5' 7 ) 04/11/2022 2:20 PM CDT Body Mass Index 33.36 04/11/2022 2:20 PM CDT documented in this encounter Progress Notes * Rosie Hernandez NP - 04/11/2022 2:20 PM CDT Patient: Arely Ernandez Birthdate: 1960 PCP: Jonatan Worley MD Reason for visit: Visit Date: 04/11/2022 CHIEF COMPLAINT CKD INTERIM HISTORY Arely Ernandez is a 61 y.o. female presenting with a past medical history of DM, glaucoma, and HTN. Has had progressive proteinuria and low albumin. High potassium has prevented IAN and ARB use. Creatinine has slowly been increasing and is currently 2.6 mg/dL. She was reportedly without BP medication for nearly two months and her BP now is still not well controlled. Was recently increased tohydralazine 10 mg TID. She denies any SOB Her swelling is at baseline. No urinary complaints. PAST MEDICAL HISTORY Past Medical History: Diagnosis Date ??? Acute renal failure syndrome (CMS-HCC) 06/05/2021 ??? Diabetes mellitus without mention of complication, [...] day ??? ergocalciferol (VITAMIN D-2) 1.25 MG (33240 UT) capsule Take 50,000 Units by mouth [...] for confusion and sleep disturbance. VITALS BP 156/82 (BP Location: Left arm, Patient Position: Sitting, BP Cuff Size: Large adult) Pulse 70 Temp 98.3 ??F (36.8 ??C) (Oral) Ht 5' 7 (1.702 m) Wt 213 [...] Abdomen is soft. Musculoskeletal: General: Edema (1+ nonpitting) present. Normal range of motion. Cervical back: Normal range of motion. Skin: General: Skin is warm and dry. Neurological: Mental Status: She is alert and oriented to person, place, and time. Psychiatric: Mood and Affect: Mood and affect normal. RECENT LABS Lab Results Component Value Date EGFR 26 (L) 12/24/2021 CREATININE 2.04 (H) 12/24/2021 CREATININEUR 43 12/24/2021 GLUCOSE 155 (H) 12/24/2021 PTH 55 12/24/2021 HCT 32.3 (L) 12/24/2021 BUN 33 (H) 12/24/2021 NA 138 12/24/2021 K 5.3 12/24/2021 CL 110 12/24/2021 CO2 23 12/24/2021 ALBUMIN 3.4 (L) 12/24/2021 CA 8.9 12/24/2021 CA 8.9 12/24/2021 ASSESSMENT AND PLAN Assessment/Plan Diagnoses and all orders for this visit: Chronic kidney disease, Stage IV (severe) ([facility]) Slight worsening in creatinine could be related to natural progression of disease state and/or increased BP or hydration state. At this time I discussed options with patient and spouse. Will make efforts to maintain hydration and control BP. Will hold on starting lasix at this time for swelling dueto hydration and renal function. Patient reports this is longstanding baseline and she does not want to change worsening. I have advised patient that they can contact the office for BP medication adjustments to achieve goal BP. Will recheck labs and see in follow up in 2 months. This visit required 30 minutes of which >50% was spent directly counseling and educating patientand/or family/caretakers on the diagnosis and POC. - CBC (Includes Diff/PLT); Future - Renal Function Panel; Future - PTH Intact w/ Calcium; Future - Ferritin; Future - Iron And TIBC; Future Essential (primary) hypertension Goal BP to be less than 130/80 BP not at goal and will actively adjust medication as needed. Patient to monitor at home readings. Diabetes mellitus with renal manifestations, type II or unspecified type, uncontrolled ([facility]) Goal A1C to be less than 7 Currently controlled per patient reports. Atrophy of kidney Anemia in chronic kidney disease Stable will monitor No indication for MARGARETH at this time ROSIE HERNANDEZ NP documented in this encounter Plan of Treatment Upcoming Encounters Date Type Department Care Team (Late st Contact Info) Description 09/23/2024 3:40 PM PARTS IDENTIFICATION TECHNICIAN Office Visit [facility] [address] [facility] [address] [place] [address] Rosie Hernandez NP [address] [address] Scheduled Orders Name Type Priority Associated Diagnoses Orde r Schedule CBC (Includes Diff/PLT) Lab Routine Chronic kidney disease, Stage IV (severe) ([facility]) Expected: 07/12/2022, Expires: 04/11/2023 Renal Function Panel Lab Routine Chronic kidney disease, Stage IV (severe) ([facility]) Expected: 07/12/2022, Expires: 04/11/2023 PTH Intact w/ Calcium Lab Routine Chronic kidney disease, Stage IV (severe) ([facility]) Expected: 07/12/2022, Expires: 04/11/2023 Ferritin Lab Routine Chronic kidney disease, Stage IV (severe) ([facility]) Expected: 07/12/2022, Expires: 04/11/2023 Iron And TIBC Lab Routine Chronic kidney disease, Stage IV (severe) ([facility]) Expected: 07/12/2022, Expires: 04/11/2023 documented as of this encounter Visit Diagnoses Diagnosis Chronic kidney disease, Stage IV (severe) ([facility])- Primary Chronic kidney disease, Stage IV (severe) Essential (primary) hypertension Diabetes mellitus with renal manifestations, type II or unspecified type, uncontrolled ([facility]) Diabetes mellitus with renal manifestations, type II or unspecified type, uncontrolled Atrophy of kidney Anemia in chronic kidney disease documented in this encounter Care Teams [employer] Worker Relationship Specialty Start Date End Date Jonatan Worley MD [address] [place] [address] PCP - General 06/06/21 documented as of this encounter
--- OUTSIDE RECORDS SUMMARY | 2024-08-29 03:49 | XMS_ITS | Continuity of Care Document ---
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 over reacted. Pt did have lab done which showed stable renal function HTN Pt has HTN Pt ta kes norvasc and toprol and her bp is around 120-130/80 Pt denies any swelling Pt denies any sob Pt denies any headache Pt overall feels much better DM Pt has DM Pt kevin es amaryl only. her glucose is around 120 .pt denies any polyuria, polydipsia Pt has not done lab yet. renal disease1 Pt has stage III renal disease Pt has normal UO. Pt has ishan with nephrology next week edema1 Pt has LE edema. Pt unable to tolerate ARB and diuretic due to renal function. Pt denies any sob. DM Pt has DM. Pt ta kes amaryl only Pt is off metformin Pt states that her glucose at home is around 110s. renal Pt has chronic r enal failure Pt is off spironolactone ,metformin and irbesartan/hctz .pt saw nephrology last month and had more lab and she supposes to follow up next week with nephrology Pt has normal uO HTN Pt has HTN Pt ta kes toprol and Norvasc and her bp is borderline. pt states that her bp is 120/70 at home Pt denies any chest pain. She is off irbesartan/hctz and spironolactone. Pt denies any worsening edema. Pt denies any sob or chest pain DM pt takes metform in and amaryl and her glucose is around 90s. her A1c is 6.0. low renal1 Pt has chronic r enal disease, which is getting worse. Pt has proteinuria and high phos and high kcl Pt denies any chest pain or palpitation or sob. Her BNP and chest x ray are ok. . HLP Pt takes crestor and her lipid profile is ok Pt has mildly high TG pt denies any myalgia anemia1 Pt has normocyti c anemia with normal iron. Pt denies any GI bleeding. Pt denies any fatigue or dizziness. edema1 Pt states that h er leg edema greatly improved with hctz and spironolactone. Pt also states that her sob improved as well. Pt denies any chest pain HTN Pt has HTn. Pt t akes irbesartan and norvasc and her bp was around 120/80 until last week and her bp has been running around 160/90s Pt denies any chest pain or headache. Pt c/o bilateral LE edema for two months. Pt feels sob sometimes especially with activity. Pt denies any PND or orthopnea. Pt denies any chest pain vision change1 Pt has chronic v ision issue but had been getting worse lately and she sees senior windows systems administrator and she notices worsening vision during last several months. Pt states that she almost barely able to see from right eye for 2-3 years and her left eye also became blurred since two weeks ago. Pt just saw senior windows systems administrator last week and was told that she needs cataract surgery soon and she was told that she has retinopathy as well. DM Pt has DM. Pt ta kes metformin and amaryl and her glucose is around 140s .Pt denies any neuropathy. edema1 Pt c/o bilateral LE edema for 2-3 months. DM pt takes metform in and amaryl. her glucose is ok at home Pt denies any polyuria polydipsia renal Pt has normal UO .renal ultrasound showed bilateral renal atrophy. Pt has not made ishan with nephrology yet HTN Pt has HTN Pt ta kes irbesartan an norvasc and her bp is better . DM Pt has DM Pt kevin es metformin and amaryl .her glucose is around 100 at home. Pt has large amount of proteinuria. Pt has borderline low renal function. Pt has low albumin. Pt takes lisinopril. Her bp is around 150s. Pt denies any chest pain or sob. DM Pt has DM Pt kevin es metformin and amaryl. her glucose is around 120s Her glucose and A1c are ok Pt denies any neuropathy low renal1 Pt has borderlin e low renal .Pt has normal UO. Pt has borderline high phos. anemia1 Pt has stable an emia. Her iron and ferritin is ok. Pt denies any blood loss. Pt also has low globulin low total protein, low protein, high phos. HTN Pt takes lisinop ril and her bp is still higher Pt denies any chest pain or headache. DM Pt states that h er glucose is around 115s with metformin and amaryl. Pt denies any hypoglycemia Pt has not done lab yet HLP Pt takes crestor .Pt denies any myalgia. PT has not done lab yet HTN Pt has HTN Pt franklin s not been checking her bp at home Pt takes lisinopril daily DM Pt has DM, Pt ta kes metformin and amaryl. Her glucose is around 120s, Pt denies any hypoglycemia Pt denies any polyuria, polydipsia Pt denies any neuropathy HTN Pt takes lisinop ril 20 mg daily pt has not checked her bp at home Pt denies any chest pain or headache Pt denies any dizziness HLP Pt takes crestor Pt denies any myalgia .Pt has not done lab yet vertigo1 Pt states that s he is off meclizine and she no longer has vertigo. Pt denies any dizziness low D P thas low D anemia1 Pt is anemic pt was not anemic back in [facility] of last year. Pt is postmeno for 2-3 years Pt denies any bleeding DM Pt has DM with n ephropathy. Pt has proteinuria ,Her DM is better .Pt denies any hypoglycemia. Pt denies any polyuria, polydipsia HTN Pt has HTN. Pt t akes lisinopril and her BP is still high, Pt denies any chest pain or headache HLP Pt has high LDL, which is not at goal. protein Pt has low total protein and albumin. Pt denies any swelling Physical Pt needs annual physical, Pt has DM pt takes metformin and amaryl. her BG is around 120s Pt denies any neuropathy symptoms. Pt is seeing eye doctor and she just had right eye glaucoma surgery .Pt was told she has diabetic retinopathy. Pt has been taking meclizine TID and she denies any headache or dizziness or vertigo .Pt still has not done lab yet vertigo1 Her vertigo reso lved with meclizine and stoppage of HCTZ ,Pt denies any headache HTN Her BP is stable with lisinopril. vertigo1 Pt continues to have vertigo despite taking meclizine Pt denies any headache or chest pain Pt denies any palpitation Pt states that she feels random vertigo regardless of position. Pt denies any sweatiness. Pt denies any orthostasis. pt feels vertigo most of the time while sitting around without standing up. Pt also feels some blurred vision and she feels cloudy. Pt did have normal MRI of brain and also EKG and also carotid doppler in hospital. pt denies any speech problem or any neurological deficit Pt denies any trigger factor. Pt states that it last 1-2 mins Pt denies any syncope Pt denies any palpitation or chest pain Pt denies any hearing issue or tinnitus. Pt states that it occurs 2-3 times per week. Pt states that her BG has been around 120s. pt states that her BG was not low during episode. Pt states that BG was 120s during those episodes HTN Pt takes lisinop ril and hcTZ. Her BP is stable. Pt denies any orthostasis hematuria1 pt has hematuria Pt denies any UTI symptoms or flank pain vertigo1 Pt has been havi ng vertigo and generalized dizziness for over 4 weeks. Pt denies any chest pain, palpitation or headache. Pt does feel dizzy when she stands up and also turns her head. Pt also feels dizzy and vertigo without standing up and just sitting. Meclizine does help. Pt is on norvasc, HCTZ for BP her BP is actually borderline high. Pt denies any ear pain or tinnitus. Pt denies any sinus symptoms DM Pt takes metform in and amaryl Her glucose is around 110s. The lowest was 88 and it does not seem to affect her level of dizziness. Pt c/o foot pain which is sharp with some burning sensation both feet for several months Pt denies any calf pain Pt denies any claudication DM Pt has not seen MD for years Pt recently stoop up and felt dizzy and she thinks that she passed out briefly. Pt went to ER and her bp was high and her glucose was high Pt was fond to have DM. Pt is currently on metformin and also amaryl and her BG is around 150s. Pt denies any hypoglycemia. Pt also is on norvasc currently and BP is stable. Pt also had benign cardiac echo and brain MRi and carotid doppler PT overall feels ok now. Pt does have some mild tingling both feet. Pt denies any headache or chest pain Pt has mild vertigo and she is on meclizine and doing ok Instructions Date Instruction Additional Infor mation Special diet education Related t o Body mass index (BMI) 29.0-29.9, adult Perform monthly self breast examinations. Related to Encntr for general adult medical exam w/o abnormal findings Special diet education Related t o Body mass index (BMI) 29.0-29.9, adult Weight management Related to Diz ziness Weight management Related to Diz ziness Increase physical activity Relat ed to Dizziness Special diet education Related t o Body mass index (BMI) 28.0-28.9, adult Check blood sugar twice a day. R elated to Type 2 diabetes mellitus w/ diabetic neuropathy Special diet education Related t o Body mass index (BMI) 28.0-28.9, adult Increase activity. Related to Es sential (primary) hypertension Follow a low sodium diet. 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
--- OUTSIDE RECORDS SUMMARY | 2024-08-29 04:31 | XMS_ITS | Encounter Summary ---
Author Organization [facility] Il[facility] petersen Address [address] [place] [address] Phone Care Team Providers Care Hogshead Mat Inspector Name Role Phone Jonatan Worley MD Primary Care Provider [phone] Encounter Details Date Type Department Care Team ([facility] Contact Info) Description 01/30/2023 Orders Only [facility] [address] [place] [address] 1 [place] [address] Rosa Delgado NP [address] [address] Social History Tobacco Use Types [...] (Late Contact Info) Description 09/23/2024 3:40 PM TELETYPEWRITER OPERATOR Office Visit [facility] [address] [facility] 1 [place] [address] Rosa Delgado NP [address] [phone] documented as of this encounter Procedures Procedure [...] AM CDT 01/30/2023 9:42 AM CDT Narrative [facility] ([facility] - 01/31/2023 6:08 PM CDT FASTING:YES FASTING: YES Resulting Agency Comment Performing Organization Information: ?Site ID: [address] ?Name: [facility] [employer] ?Address: [address] [place] [address] ?Director: Odalys Bangura MD Rosa L Delgado CHEMICAL PROJECT ENGINEER LAB URINE ORDERABLES [facility] ([facility]) * (ABNORMAL) PTH Intact and Calcium, Serum (01/30/2023 9:41 AM CDT) PTH, Intact, Serum/Plasma 133(H) 16 - 77 pg/mL [facility] ([facility]) Comment: Interpretive Guide ?Intact PTH ? Calcium ? ------- Normal Parathyroid ?Normal ? Normal Hypoparathyroidism ?Low or Low Normal ?Low Hyperparathyroidism ?? Primary ?Normal or High ? High ?? Secondary ?High ? Normal or Low ?? Tertiary ? High ? High Non-Parathyroid ?? Hypercalcemia ?Low or Low Normal ?High Calcium, Serum/Plasma 8.7 8.6 - 10.4 mg/dL [facility] ([facility]) 01/30/2023 9:41 AM CDT 01/30/2023 9:42 AM CDT Narrative [facility] ([facility]) - 01/31/2023 6:08 PM CDT FASTING:YES FASTING: YES Resulting Agency Comment Performing Organization Information: ?Site ID: [place] ?Name: [facility] ?Address: [address] [place] [address] ?Director: Odalys Bangura MD Rosa Delgado NP LAB BLOOD ORDERABLES [facility] ([facility] * (ABNORMAL) Renal Function Panel (RFP) (01/30/2023 9:41 AM CDT) Glucose, Serum/Plasma 109(H) 65 - 99 mg/dL [facility] ([facility]) Comment: ? Fasting reference interval For someone without known diabetes, a glucose value between 100 and 125 mg/dL is consistent with prediabetes and should be confirmed with a follow-up test. Urea nitrogen, Serum/Plasma (BUN) 46(H) 7 - 25 mg/dL [facility] ([facility]) Creatinine, Serum/Plasma 2.55(H) 0.50 - 1.05 mg/dL [facility] ([facility]) Estimated Glomerular Filtration Rate (eGFR) 21(L) > OR = 60 mL/min/1.7 3m2 [facility] ([facility]) Comment: The eGFR is based on the CKD-EPI 2020 equation. To calculate the new eGFR from a previous Creatinine or Cystatin C result, go to https://www.kidney.org/professionals/ kdoqi/gfr%5Fcalculator Urea nitrogen/Creati nine, Serum/Plasma 18 6 - 22 (calc) [facility] ([facility]) Sodium, Serum/Plasma 138 135 - 146 mmol/L [facility] ([facility]) Potassium, Serum/Plasma 4.8 3.5 - 5.3 mmol/L [facility] ([facility]) Chloride, Serum/Plasma 111(H) 98 - 110 mmol/L [facility] ([facility]) Carbon dioxide CO2), total, Serum/Plasma 22 20 - 32 mmol/L [facility] ([facility]) Calcium, Serum/Plasma 8.4(L) 8.6 - 10.4 mg/dL [facility] ([facility]) Phosphate, Serum/Plasma 5.3(H) 2.5 [...] Comment Performing Organization Information: ?Site ID: ?Name: [facility] ?Address: [facility] [place] [address] ?Director: Odalys Bangura Rosa Delgado NP LAB [...] NONE SEEN < OR = 2 /HPF [facility] ([facility]) Epithelial cells, squamous, Urine sediment 0-5 < OR = 5 /HPF [facility]) Bacteria, Urine sediment NONE SEEN NONE SEEN /HPF [facility] ([facility]) Triple phosphate crystals, Urine sediment MODERATE(A) NONE OR FEW /HPF [facility] ([facility]) Hyaline casts, Urine sediment NONE SEEN NONE SEEN /LPF [facility] ([facility]) Service comment [facility]) Comment: This urine was analyzed for the presence of WBC, RBC, bacteria, casts, and other formed elements. Only those elements seen were reported. 01/30/2023 9:41 AM CDT 01/30/2023 9:42 AM CDT Narrative [facility] ([facility]) - 01/31/2023 6:08 PM CDT FASTING:YES FASTING: YES Resulting Agency Comment Performing Organization Information: ?Site ID: ?Name: [facility] ?Address: [facility] [place] [address] ?Director: Odalys Bangura Rosa Delgado NP LAB URINE ORDERABLES [facility] * (ABNORMAL) CBC (includes Differential/Platelets) (01/30/2023 9:41 AM CDT) Leukocytes, Blood 10.2 3.8 - 10.8 Thousand/u L [facility] ([facility]) Erythrocytes (RBC) 3.64(L) 3.80 - 5.10 Million/uL [facility] ([facility]) Hemoglobin (HGB) 10.7(L) 11.7 - 15.5 g/dL [facility]) [...] Comment Performing Organization Information: ?Site ID: ?Name: [facility] ?Address: [address] [address] ?Director: Odalys Bangura Rosa Delgado CHEMICAL PROJECT ENGINEER LAB BLOOD ORDERABLES [facility] documented in this encounter Visit Diagnoses Not on filedocumented in this encounter Care Teams Hogshead Mat Inspector Relationship Specialty Start Date End Date Jonatan Worley MD [address] [place] [address] PCP - General 06/06/21 documented as of this encounter
--- OUTSIDE RECORDS SUMMARY | 2024-08-29 04:31 | XMS_ITS | Clinical Summary ---
Author Organization [facility] p[facility] Address [address] [place] [phone] Phone Care Team Providers Care Reservation Agent Name Role Phone Jonatan Worley MD Primary Care Provider [phone] Allergies Active Allergy Reactions Criticality Noted Date [...] type, uncontrolled ([facility]) Take 1 tablet by mouth [...] Type Department Care Team Description 08/28/2024 Refill [facility] [address] [place] [address] Rosa Delgado NP 08/06/2024 Refill [facility] [address] [place] [address] 1 [place] [address] Rosa Delgado NP 06/30/2024 Refill [facility] [address] [place] [address] 1 [place] [address] Rosa Delgado NP from Last 3 Months [...] st Contact Info) Description 09/23/2024 3:40 PM NET MAKER Office Visit [facility] [address] [address] Rosa Delgado NP [address] [phone] Health Maintenance Due Date Last Done Comments Diabetic Foot Exam 12/23/1971 Ophthalmology Exam 12/23/1971 Pneumococcal PPSV23 Highest Risk Adult (1 of 3 - PCV13 ) 1980 Influenza Vaccine (#1) 2024 Care Teams Reservation Agent Relationship Specialty Start Date End Date Jonatan Worley MD [address] [place] [address] PCP - General 06/06/21
--- OUTSIDE RECORDS SUMMARY | 2024-08-29 04:31 | XMS_ITS | Encounter Summary ---
Author Organization Isaac Physician Ilana petersen Address [address] [place] [phone] Phone Care Team Providers Care Textile Screen Maker Name Role Phone Jonatan Worley MD Primary Care Provider [phone] Encounter Details Date Type Department Care Team ([facility] Contact Info) Description 05/05/2024 Orders Only [facility] 5003 [facility] 1 [place] [address] Rosa Delgado NP [address] [address] Social History Tobacco Use Types [...] (Late Contact Info) Description 09/23/2024 3:40 PM MEDICAL HEALTH RESEARCHER Office Visit [facility] 5003 [facility] 1 [place] [address] Rosa Delgado NP [address] [phone] documented as of this encounter Procedures Procedure [...] Calcidiol, Serum/Plasma 76 30 - 100 ng/mL [employer] [facility] ([facility]) Comment: Vitamin D Status ? 25-OH Vitamin D: Deficiency: ?<20 ng/mL Insufficiency: ? 20 - 29 ng/mL Optimal: ? > or = 30 ng/mL For 25-OH Vitamin D testing on patients on D2-supplementation and patients for whom quantitation of D2 and D3 fractions is required, the QuestAssureD() 25-OH VIT D, (D2,D3), LC/MS/MS is recommended: order code 10904 (patients >2yrs). See Note 1 Note 1 For additional information, please refer to http://education.[employer]/faq/NHJ659 (This link is being provided for informational/ educational purposes only.) 05/05/2024 9:35 AM CDT 05/05/2024 9:35 AM CDT Narrative [facility] ([facility]) - 05/07/2024 2:18 AM CDT FASTING:YES FASTING: YES Resulting Agency Comment Performing Organization Information: ?Site ID: [place] ?Name: [facility] ?Address: [facility] [place] [address] ?Director: Odalys Bangura MD Rosa Delgado ROLL COVERER LAB BLOOD ORDERABLES Performing Organization Address [facility] Co de Phone Number [facility] [place] (ST) * Ferritin, Serum (05/05/2024 9:35 AM CDT) Ferritin, Serum/Plasma 122 16 - 288 ng/mL [facility] [place] ([facility]) 05/05/2024 9:35 AM CDT 05/05/2024 9:35 AM CDT Narrative [facility] [place] ([facility]) - 05/07/2024 2:18 AM CDT FASTING:YES FASTING: YES Resulting Agency Comment Performing Organization Information: ?Site ID: SD ?Name: [facility] ?Address: [address] [place] [id number] ?Director: Odalys Bangura MD Rosa Delgado ROLL COVERER LAB BLOOD ORDERABLES Performing Organization Address [facility] Co de Phone Number [facility] [place] ([facility]) * (ABNORMAL) Iron and TIBC, Serum (05/05/2024 9:35 AM CDT) Iron, Serum/Plasma 32(L) 45 - 160 mcg/dL [facility] [place] ([facility]) Iron binding capacity, Serum/Plasma 201(L) 250 - 450 mcg/dL (calc) [facility] [place] ([facility]L) Iron saturation, Serum/Plasma 16 16 - 45 % (calc) [facility] [place] (STL) 05/05/2024 9:35 AM CDT 05/05/2024 9:35 AM CDT Narrative [facility] [place] ([facility]) - 05/07/2024 2:18 AM CDT FASTING:YES FASTING: YES Resulting Agency Comment Performing Organization Information: ?Site ID: [place] ?Name: [facility] ?Address: [address] [place] [address] ?Director: Odalys Bangura MD Rosa Delgado NP LAB BLOOD ORDERABLES [employer] . [facility] [place] (STL) * (ABNORMAL) PTH Intact and Calcium, Serum (05/05/2024 9:35 AM CDT) PTH, Intact, Serum/Plasma 70 16 - 77 pg/mL [employer] . [facility] [place] (STL) Comment: Interpretive Guide ?Intact PTH ? Calcium ? ------- Normal Parathyroid ?Normal ? Normal Hypoparathyroidism ?Low or Low Normal ?Low Hyperparathyroidism ?? Primary ?Normal or High ? High ?? Secondary ?High ? Normal or Low ?? Tertiary ? High ? High Non-Parathyroid ?? Hypercalcemia ?Low or Low Normal ?High Calcium, Serum/Plasma 8.2(L) 8.6 - 10.4 mg/dL [employer] [facility] [place] ([facility]) 05/05/2024 9:35 AM CDT 05/05/2024 9:35 AM CDT Narrative [facility] ([facility]) - 05/07/2024 2:18 AM CDT FASTING:YES FASTING: YES Resulting Agency Comment Performing Organization Information: ?Site ID: SD ?Name: [facility] ?Address: [address] [place] [address] ?Director: Odalys Bangura MD Rosa Delgado NP LAB BLOOD ORDERABLES [facility] [place] ([facility]) * (ABNORMAL) Renal Function Panel (RFP) (05/05/2024 9:35 AM CDT) Glucose, Serum/Plasma 123(H) 65 - 99 mg/dL [facility] [place] ([facility]) Comment: ? Fasting reference interval For someone without known diabetes, a glucose value between 100 and 125 mg/dL is consistent with prediabetes and should be confirmed with a follow-up test. Urea nitrogen, Serum/Plasma (BUN) 36(H) 7 - 25 mg/dL [facility] [place] (STL) Creatinine, Serum/Plasma 2.64(H) 0.50 - 1.05 mg/dL [facility] [place] ([facility]L) Estimated Glomerular Filtration Rate (eGFR) 20(L) > OR = 60 mL/min/1.7 3m2 [facility] [place] ([facility]) Urea nitrogen/Creati nine, Serum/Plasma 14 6 - 22 (calc) [facility] [place] ([facility]) Sodium, Serum/Plasma 136 135 - 146 mmol/L [facility] [place] ([facility]L) Potassium, Serum/Plasma 4.5 3.5 - 5.3 mmol/L [facility] (ST[facility]) Chloride, Serum/Plasma 108 98 - 110 mmol/L [facility] [place] (STL) Carbon dioxide CO2), total, Serum/Plasma 20 20 - 32 mmol/L [facility] (STL) Calcium, Serum/Plasma 8.2(L) 8.6 - 10.4 mg/dL [facility] [place] ([facility]) Phosphate, Serum/Plasma 4.0 2.5 - 4.5 mg/dL [facility] [place] ([facility]) Albumin, Serum/Plasma 3.0(L) 3.6 - 5.1 g/dL [facility] [place] ([facility]L) 05/05/2024 9:35 AM CDT 05/05/2024 9:35 AM CDT Narrative [facility] [place] ([facility]) - 05/07/2024 2:18 AM CDT FASTING:YES FASTING: YES Resulting Agency Comment Performing Organization Information: ?Site ID: ?Name: [facility] ?Address: [facility] [place] [id number] ?Director: Odalys Bangura Rosa Delgado NP LAB BLOOD ORDERABLES [facility] [place] ([facility]) * (ABNORMAL) CBC (includes Differential/Platelets) (05/05/2024 9:35 AM CDT) Leukocytes, Blood 6.0 3.8 - 10.8 Thousand/u L [facility] [place] ([facility]) Erythrocytes (RBC) [...] Performing Organization Information: ?Site ID: SL ?Name: [facility] ?Address: [facility] [address] [place] [address] ?Director: Odalys Bangura Rosa Delgado NP LAB BLOOD ORDERABLES [facility] [place] ([facility]) documented in this encounter Visit Diagnoses Not on filedocumented in this encounter Care Teams Textile Screen Maker Relationship Specialty Start Date End Date Jonatan Worley MD [address] [place] [address] PCP - General 06/06/21 documented as of this encounter
--- OUTSIDE RECORDS SUMMARY | 2024-08-29 04:31 | XMS_ITS | Encounter Summary ---
Author Organization Isaac Physician Ilaan petersen Address [address] [place] [address] Phone Care Team Providers Care Lens Silverer Name Role Phone Jonatan Worley MD Primary Care Provider [phone] Encounter Details Date Type Department Care Team (Latest Contact Info) Description 01/13/2024 12:00 PM CDT Clinical Support [facility] 5003 [facility] 1 [place] [address] Rosa Delgado NP [address] [address] Chronic kidney disease, Stage IV [...] take place prior to follow up with accounting systems analyst. This includes any changes in urinary habits, [...] st Contact Info) Description 09/23/2024 3:40 PM COMBAT ENGINEER Office Visit [facility] [address] [facility] 1 [place] [address] [place] [address] [place] [phone] documented as of this encounter Visit Diagnoses Diagnosis Chronic kidney disease, Stage IV (severe) ([facility])- Primary Chronic kidney disease, Stage IV (severe) documented in this encounter Care Teams Lens Silverer Relationship Specialty Start Date End Date Jonatan Worley MD [address] [place] [address] PCP - General 06/06/21 documented as of this encounter
--- OUTSIDE RECORDS SUMMARY | 2024-08-29 04:31 | XMS_ITS | Encounter Summary ---
Author Organization Isaac Physician Ilana petersen Address [address] [place] [address] Phone Care Team Providers Care Remote Sensing Engineer Name Role Phone Jonatan Worley MD Primary Care Provider [phone] Reason for Visit * Reason Comments Med Refill Encounter Details Date Type Department Care Team (Late Contact Info) Description 10/09/2023 Refill [facility] [address] [phone] Rosa Delgado MACHINE OPERATOR PICKER [address] [address] Diabetes mellitus with renal manifestations, type II or unspecified type, uncontrolled ([facility]) Social History Tobacco Use Types [...] (Late Contact Info) Description 09/23/2024 3:40 PM QUENCHING MACHINE OPERATOR Office Visit [facility] 5003 [facility] 1 [place], [place] [phone] Rosa Delgado MACHINE OPERATOR PICKER [address] [phone] documented as of this encounter Visit Diagnoses Diagnosis Diabetes mellitus with renal manifestations, type II or unspecified type, uncontrolled ([facility]) Diabetes mellitus with renal manifestations, type II or unspecified type, uncontrolled documented in this encounter Care Teams Remote Sensing Engineer Relationship Specialty Start Date End Date Jonatan Worley MD [address] [place] [address] PCP - General 06/06/21 documented as of this encounter
--- OUTSIDE RECORDS SUMMARY | 2024-08-29 04:31 | XMS_ITS | Encounter Summary ---
Author Organization Isaac Physician Ilana petersen Address [address] [place] [address] Phone Care Team Providers Care Jack Machine Operator Name Role Phone Jonatan Worley MD Primary Care Provider [phone] Encounter Details Date Type Department Care Team ([facility] Contact Info) Description 06/07/2022 Orders Only [facility] 5003 [facility] 1 [place], [place] [phone] Rosa Delgado NP [address] [address] Social History Tobacco Use Types [...] (Late Contact Info) Description 09/23/2024 3:40 PM FAMILY MANAGER Office Visit [facility] 5003 [facility] 1 [place], [place] [phone] Rosa Delgado NP [address] [phone] documented as of this encounter Procedures Procedure [...] Eosinophils, Blood 710(H) 15 - 500 cells/uL [facility] [place] ([facility]) Basophils, [...] [place] ([facility]L) Basophils/100 leukocytes, Blood 0.8 % [facility] [place] ([facility]) 06/07/2022 12:3 5 PM CDT 06/07/2022 12:37 PM CDT Narrative [facility]. [facility] [place] ([facility]) - 06/08/2022 9:16 AM CDT FASTING:NO FASTING: NO Resulting Agency Comment Performing Organization Information: ?Site ID: [place] ?Name: [facility] ?Address: [address] [place] [address] [place] [address] ?Director: Javier Marquez D.O., MPH Rosa Delgado NP LAB BLOOD ORDERABLES [facility] [place] ([facility]) * (ABNORMAL) Renal Function Panel (RFP) (06/07/2022 12:35 PM CDT) [facility] Glucose, Serum/Plasma 192(H) 65 - 139 mg/dL [facility] [place] (ST) Comment: ? Non-fasting reference interval Urea nitrogen, Serum/Plasma (BUN) 38(H) 7 - 25 mg/dL [facility] [place] ([facility]) Creatinine, Serum/Plasma 2.10(H) 0.50 - 1.05 mg/dL [facility] [place] ([facility]) Estimated Glomerular Filtration Rate (eGFR) 26(L) > OR = 60 mL/min/1.7 3m2 [facility] [place] ([facility]) Comment: The eGFR is based on the CKD-EPI 2020 equation. To calculate the new eGFR from a previous Creatinine or Cystatin C result, go to https://www.kidney.org/professionals/ kdoqi/gfr%5Fcalculator Urea nitrogen/Creati nine, Serum/Plasma 18 6 - 22 (calc) [facility] [place] ([facility]) Sodium, Serum/Plasma 140 135 - 146 mmol/L [facility] [place] ([facility]) Potassium, Serum/Plasma 5.0 3.5 - 5.3 mmol/L [facility] [place] ([facility]) Chloride, Serum/Plasma 111(H) 98 - 110 mmol/L [facility] [place] ([facility]) Carbon dioxide CO2), total, Serum/Plasma 23 20 - 32 mmol/L [facility] [place] ([facility]) Calcium, Serum/Plasma 8.5(L) 8.6 - 10.4 mg/dL [facility] [place] ([facility]) Phosphate, Serum/Plasma 5.3(H) 2.5 - 4.5 mg/dL [facility] [place] ([facility]) Albumin, Serum/Plasma 3.2(L) 3.6 - 5.1 g/dL [facility] [place] ([facility]) 06/07/2022 12:3 5 PM CDT 06/07/2022 12:37 PM CDT Narrative [facility] [place] ([facility]) - 06/08/2022 9:16 AM CDT FASTING:NO FASTING: NO Resulting Agency Comment Performing Organization Information: ?Site ID: CT ?Name: [facility] ?Address: [address] [place] [address] ?Director: Javier Marquez D.O., MPH Rosa Delgado NP LAB BLOOD ORDERABLES [facility] [place] ([facility]) * (ABNORMAL) [...] Calcium, Serum/Plasma 8.5(L) 8.6 - 10.4 mg/dL [facility] (ST) 06/07/2022 12:3 5 PM CDT 06/07/2022 12:37 PM CDT Narrative [facility] [place] ([facility]) - 06/08/2022 9:16 AM CDT FASTING:NO FASTING: NO Resulting Agency Comment Performing Organization Information: ?Site ID: CT ?Name: [facility] ?Address: [address] [place] [address] ?Director: Javier Marquez D.O., MPH Rosa Delgado [...] Ferritin, Serum/Plasma 68 16 - 232 ng/mL [facility] [place] ([facility]) 06/07/2022 12:3 5 PM CDT 06/07/2022 12:37 PM CDT Narrative [facility] [place] ([facility]) - 06/08/2022 9:16 AM CDT FASTING:NO FASTING: NO Resulting Agency Comment Performing Organization Information: ?Site ID: [place] ?Name: [facility] ?Address: [address] [place] [phone] ?Director: Javier Marquez D.O., MPH Rosa Delgado SITE SPECIALIST LAB BLOOD ORDERABLES [facility] [place] (ST) documented in this encounter Visit Diagnoses Not on filedocumented in this encounter Care Teams Jack Machine Operator Relationship Specialty Start Date End Date Jonatan Worley MD [address] [place] [phone] PCP - General 06/06/21 documented as of this encounter
--- OUTSIDE RECORDS SUMMARY | 2024-08-29 04:31 | XMS_ITS | Encounter Summary ---
Author Organization Isaac Physician Ilana utialmas Address [address] [place] [address] Phone Care Team Providers Care Width Stripper Name Role Phone Jonatan Worley MD Primary Care Provider [phone] Reason for Visit * Reason Comments Med Refill Encounter Details Date Type Department Care Team (Late st Contact Info) Description 02/07/2024 Refill [facility] [address] [phone] Raji Shook MD [address] [address] Diabetes mellitus with renal manifestations, type II or unspecified type, uncontrolled ([facility]) Social History Tobacco [...] st Contact Info) Description 09/23/2024 3:40 PM NEWSSTAND VENDOR Office Visit [facility] 5003 [facility] 1 [place] [address] Rosa Delgado NP 5003 [facility] 1 [place] [address] documented as of this encounter Visit Diagnoses Diagnosis Diabetes mellitus with renal manifestations, type II or unspecified type, uncontrolled ([facility]) Diabetes mellitus with renal manifestations, type II or unspecified type, uncontrolled documented in this encounter Care Teams Width Stripper Relationship Specialty Start Date End Date Jonatan Worley MD [address] [place] [address] PCP - General 06/06/21 documented as of this encounter
--- OUTSIDE RECORDS SUMMARY | 2024-08-29 04:31 | XMS_ITS | Encounter Summary ---
Author Organization Isaac Physician Ilana utialmas Address [address] [place] [address] Phone Care Team Providers Care Health Information Systems Technician Name Role Phone Jonatan Worley MD Primary Care Provider [phone] Reason for Visit * Reason Comments Med Refill Encounter Details Date Type Department Care Team (Late st Contact Info) Description 09/07/2022 Refill [facility] [address] [phone] Raji Shook MD [address] [address] Diabetes mellitus with renal manifestations, type II or unspecified type, uncontrolled ([facility]) Social History Tobacco Use Types Packs/Day [...] st Contact Info) Description 09/23/2024 3:40 PM CLINICAL LAB TECHNOLOGIST Office Visit [facility] 5003 [facility] 1 [place] [address] Rosa Delgado NP 5003 [facility] 1 [place] [address] documented as of this encounter Visit Diagnoses Diagnosis Diabetes mellitus with renal manifestations, type II or unspecified type, uncontrolled ([facility]) Diabetes mellitus with renal manifestations, type II or unspecified type, uncontrolled documented in this encounter Care Teams Health Information Systems Technician Relationship Specialty Start Date End Date Jonatan Worley MD [address] [place] [address] PCP - General 06/06/21 documented as of this encounter
--- OUTSIDE RECORDS SUMMARY | 2024-08-29 04:31 | XMS_ITS | Encounter Summary ---
Author Organization Isaac Physician Ilana petersen Address [address] [place] [address] Phone Care Team Providers Care Macaroni Press Operator Name Role Phone Jonatan Worley MD Primary Care Provider [phone] Reason for Visit * Reason Comments CKD Encounter Details Date Type Department Care Team ([facility] st Contact Info) Description 10/03/2022 11:40 AM GEOTECHNICAL ENGINEER Telemedicine [facility] 5003 [facility] 1 [place] [address] Rosie Hernandez NP [address] [address] Chronic kidney disease, Stage IV [...] cm (5' 7 ) 10/03/2022 8:38 AM GEOTECHNICAL ENGINEER Body Mass Index - - documented in [...] day ??? ergocalciferol (VITAMIN D-2) 1.25 MG (67441 UT) capsule Take 50,000 Units by mouth [...] visit: Chronic kidney disease, Stage IV (severe) ([facility]) Stable renal function. Has fluctuations in creatinine [...] maintain hydration. Visit today via phone at [phone], while patient at her residence with spouse present, minutes. Will follow up in 4 months [...] manifestations, type II or unspecified type, uncontrolled ([facility]) Goal A1C to be less than 7 Had elevated readings at prior appt but improving as of late with this AM FSBS 115 Anemia in chronic kidney disease Stable and will monitor Atrophy of kidney ROSIE HERNANDEZ NP documented in this encounter Plan of Treatment Upcoming Encounters Date Type Department Care Team (Late Contact Info) Description 09/23/2024 3:40 PM GEOTECHNICAL ENGINEER Office Visit [facility] 5003 [facility] [address] [place] [address] Rosie Hernandez NP 5003 [facility] Juan M 1 [place], [place] [phone] Scheduled Orders Name Type Priority Associated Diagnoses Orde r Schedule CBC (Includes Diff/PLT) Lab Routine Chronic kidney disease, Stage IV (severe) ([facility]) Expected: 12/31/2022, Expires: 10/03/2023 PTH Intact w/ Calcium Lab Routine Chronic kidney disease, Stage IV (severe) ([facility]) Expected: 12/31/2022, Expires: 10/03/2023 Renal Function Panel Lab Routine Chronic kidney disease, Stage IV (severe) ([facility]) Expected: 12/31/2022, Expires: 10/03/2023 Albumin/Creatinine Ratio, Random, Urine ([facility] Only) Lab Routine Chronic kidney disease, Stage IV (severe) ([facility]) Expected: 12/31/2022, Expires: 10/03/2023 Urinalysis, Routine Lab Routine Chronic kidney disease, Stage IV (severe) ([facility]) Expected: 12/31/2022, Expires: 10/03/2023 documented as of this encounter Visit Diagnoses Diagnosis Chronic kidney disease, Stage IV (severe) ([facility] Primary Chronic kidney disease, Stage IV (severe) Essential (primary) hypertension Diabetes mellitus with renal manifestations, type II or unspecified type, uncontrolled ([facility]) Diabetes mellitus with renal manifestations, type II or unspecified type, uncontrolled Anemia in chronic kidney disease Atrophy of kidney documented in this encounter Care Teams Macaroni Press Operator Relationship Specialty Start Date End Date Jonatan Worley MD [address] [place] [address] PCP - General 06/06/21 documented as of this encounter
--- OUTSIDE RECORDS SUMMARY | 2024-08-29 04:31 | XMS_ITS | Encounter Summary ---
Author Organization Isaac Physician Ilana petersen Address [address] [place] [address] Phone Care Team Providers Care Leader Writer Name Role Phone Jonatan Worley MD Primary Care Provider [phone] Reason for Visit * Reason Comments Med Refill Encounter Details Date Type Department Care Team (Late Contact Info) Description 01/09/2024 Refill [facility] [address] [phone] Rosa Delgado CREMATOR [address] [address] Diabetes mellitus with renal manifestations, type II or unspecified type, uncontrolled ([facility]) Social History Tobacco Use Types Packs/Day [...] (Late Contact Info) Description 09/23/2024 3:40 PM MAINTENANCE AND CUSTODIAN SUPERVISOR Office Visit [facility] 5003 [facility] 1 [place], [place] [phone] Rosa Delgado CREMATOR [address] [phone] documented as of this encounter Visit Diagnoses Diagnosis Diabetes mellitus with renal manifestations, type II or unspecified type, uncontrolled ([facility]) Diabetes mellitus with renal manifestations, type II or unspecified type, uncontrolled documented in this encounter Care Teams Leader Writer Relationship Specialty Start Date End Date Jonatan Worley MD [address] [place] [address] PCP - General 06/06/21 documented as of this encounter
--- OUTSIDE RECORDS SUMMARY | 2024-08-29 04:31 | XMS_ITS | Encounter Summary ---
Author Organization Isaac Physician Ilana petersen Address [address] [place] [address] Phone Care Team Providers Care Burr Mill Operator Name Role Phone Jonatan Worley MD Primary Care Provider [phone] Reason for Visit * Reason Comments CKD Encounter Details Date Type Department Care Team ([facility] st Contact Info) Description 02/06/2023 10:40 AM CDT Office Visit [facility] 5[address] [facility] 1 [place] [address] Rosie Hernandez PLUMBER ASSISTANT [address] [address] Chronic kidney disease, Stage IV [...] 2 ??? ergocalciferol (VITAMIN D-2) 1.25 MG (68861 UT) capsule Take 50,000 Units by mouth [...] visit: Chronic kidney disease, Stage IV (severe) ([facility]) Patient was concerned about dialysis and we [...] manifestations, type II or unspecified type, uncontrolled ([facility]) Goal A1C to be less than 7 [...] Upcoming Encounters Date Type Department Care Team ([facility] st Contact Info) Description 09/23/2024 3:40 PM MANAGER OPERATING Office Visit [facility] [address] [facility] 1 [place] [address] Rosie Hernandez NP [address] [address] Scheduled Orders Name Type Priority Associated Diagnoses Orde r Schedule Urinalysis, Routine Lab Routine Chronic kidney disease, Stage IV (severe) ([facility]) Expected: 05/09/2023, Expires: 02/07/2024 CBC (Includes Diff/PLT) Lab Routine Chronic kidney disease, Stage IV (severe) ([facility]) Expected: 05/09/2023, Expires: 02/07/2024 PTH Intact w/ Calcium Lab Routine Chronic kidney disease, Stage IV (severe) ([facility]) Expected: 05/09/2023, Expires: 02/07/2024 Renal Function Panel Lab Routine Chronic kidney disease, Stage IV (severe) ([facility]) Expected: 05/09/2023, Expires: 02/07/2024 Albumin/Creatinine Ratio, Random, Urine ([facility] Only) Lab Routine Chronic kidney disease, Stage IV (severe) ([facility]) Expected: 05/09/2023, Expires: 02/07/2024 documented as of this encounter Visit Diagnoses Diagnosis Chronic kidney disease, Stage IV (severe) ([facility] Primary Chronic kidney disease, Stage IV (severe) Essential (primary) hypertension Diabetes mellitus with renal manifestations, type II or unspecified type, uncontrolled ([facility]) Diabetes mellitus with renal manifestations, type II or unspecified type, uncontrolled Atrophy of kidney Anemia in chronic kidney disease documented in this encounter Care Teams Burr Mill Operator Relationship Specialty Start Date End Date Jonatan Worley MD [address] [place] [phone] PCP - General 06/06/21 documented as of this encounter
--- OUTSIDE RECORDS SUMMARY | 2024-08-29 04:31 | XMS_ITS | Encounter Summary ---
Author Organization Isaac Physician Ilana petersen Address [address] [place] [address] Phone Care Team Providers Care Furrier Designer Name Role Phone Jonatan Worley MD Primary Care Provider [phone] Reason for Visit * Reason Onset Date Comments Med Refill 11/14/2022 Encounter Details Date Type Department Care Team ([facility] Contact Info) Description 11/14/2022 Refill [facility] [address] [phone] Preethi Almendarez RN Diabetes mellitus with renal manifestations, type II or unspecified type, uncontrolled ([facility]) Social History Tobacco Use [...] Upcoming Encounters Date Type Department Care Team ([facility] Contact Info) Description 09/23/2024 3:40 PM BOMB SQUAD OFFICER Office Visit [facility] 5[address] [facility] 1 [place], [place] [phone] Rosa Delgado NP [address] [phone] documented as of this encounter Visit Diagnoses Diagnosis Diabetes mellitus with renal manifestations, type II or unspecified type, uncontrolled ([facility]) Diabetes mellitus with renal manifestations, type II or unspecified type, uncontrolled documented in this encounter Care Teams Furrier Designer Relationship Specialty Start Date End Date Jonatan Worley MD [address] [place] [phone] PCP - General 06/06/21 documented as of this encounter
--- OUTSIDE RECORDS SUMMARY | 2024-08-29 04:31 | XMS_ITS | Encounter Summary ---
Author Organization Isaac Physician Ilana petersen Address [address] [place] [address] Phone Care Team Providers Care Finish Rolls Operator Name Role Phone Jonatan Worley MD Primary Care Provider [phone] Encounter Details Date Type Department Care Team ([facility] Contact Info) Description 04/29/2023 Orders Only [facility] [address] [place] [address] 1 [place] [address] Rosa Delgado NP [address] [address] Social History Tobacco Use Types [...] (Late Contact Info) Description 09/23/2024 3:40 PM MILL TURNER Office Visit [facility] 5[address] [facility] 1 [place] [address] Rosa Delgado NP [address] [phone] documented as of this encounter Procedures Procedure [...] Creatinine, Urine 33 20 - 275 mg/dL [facility] [place] ([facility]) Microalbumin, Urine 66.5 See Note: mg/dL [facility] [place] ([facility]) Comment: Reference Range: Reference Range Not established Verified by repeat analysis. Albumin/Creatinin e, Urine 2,015(H) <30 mcg/mg creat [facility] [place] ([facility]) Comment: The ADA [...] Agency Comment Performing Organization Information: ?Site ID: [place] ?Name: [facility] ?Address: [address] [address] [address] ?Director: Odalys Bangura MD Rosa Delgado NP [...] 6-10(A) NONE SEEN /LPF [facility] [place] ([facility]) Bacteria identified, Urine [facility] [place]) Comment:CULTURE INDICATED - RESULTS TO FOLLOW Culture, Urine, Routine [facility] [place] ([facility]) Comment: ??CULTURE, URINE, ROUTINE ?Micro Number: ?[id number] ??Test Status: ? Final ??Specimen Source: ?? Urine ??Specimen Quality: ??Adequate ??Result: ?No Growth 04/29/2023 10:4 2 AM CDT 04/29/2023 10:46 AM CDT Narrative Resulting Agency Comment Performing Organization Information: ?Site ID: [place] ?Name: [facility] ?Address: [address] [facility] [place] [address] ?Director: Odalys Bangura MD Rosa Delgado AUTO REPAIR SHOP MANAGER LAB BLOOD ORDERABLES [facility] [place] ([facility]) * (ABNORMAL) PTH Intact and Calcium, Serum (04/29/2023 10:42 AM CDT) PTH, Intact, Serum/Plasma 93(H) 16 - 77 pg/mL [facility] [place] ([facility]) Comment: Interpretive Guide ?Intact PTH ? Calcium ? ------- Normal Parathyroid ?Normal ? Normal Hypoparathyroidism ?Low or Low Normal ?Low Hyperparathyroidism ?? Primary ?Normal or High ? High ?? Secondary ?High ? Normal or Low ?? Tertiary ? High ? High Non-Parathyroid ?? Hypercalcemia ?Low or Low Normal ?High Calcium, Serum/Plasma 8.8 8.6 - 10.4 mg/dL [facility] [place] ([facility]) 04/29/2023 10:4 2 AM CDT 04/29/2023 10:46 AM CDT Narrative Resulting Agency Comment Performing Organization Information: ?Site ID: [place] ?Name: [facility] ?Address: [facility] [place] [address] ?Director: Odalys Bangura MD Rosa Delgado NP [...] Performing Organization Information: ?Site ID: [place] ?Name: [facility] ?Address: [place] [address] ?Director: Odalys Bangura Rosa Delgado NP LAB BLOOD ORDERABLES [facility] [place] ([facility]) * [...] Serum/Plasma (BUN) 39(H) 7 - 25 mg/dL [facility] [place] ([facility]) Creatinine, Serum/Plasma 2.60(H) 0.50 - 1.05 mg/dL [facility] [place] ([facility]) Estimated Glomerular Filtration Rate (eGFR) 20(L) > OR = 60 mL/min/1.7 3m2 [facility] [place] ([facility]) Urea nitrogen/Creati nine, Serum/Plasma 15 6 - 22 (calc) [facility] [place] ([facility]) Sodium, Serum/Plasma 135 135 - 146 mmol/L [facility] [place] ([facility]) Potassium, Serum/Plasma 5.1 3.5 - 5.3 mmol/L [facility] [place] ([facility]) Chloride, Serum/Plasma 107 98 - 110 mmol/L [facility] [place] ([facility]) Carbon dioxide CO2), total, Serum/Plasma 20 20 - 32 mmol/L [facility] [place] ([facility]) Calcium, Serum/Plasma 8.6 8.6 - 10.4 mg/dL [facility] [place] ([facility]) Phosphate, Serum/Plasma 4.7(H) 2.5 - 4.5 mg/dL [facility] [place] ([facility]) Albumin, Serum/Plasma 3.5(L) 3.6 - 5.1 g/dL [facility] [place] ([facility]) 04/29/2023 10:4 2 AM CDT 04/29/2023 10:46 AM CDT Narrative Resulting Agency Comment Performing Organization Information: ?Site ID: [place] ?Name: [facility] ?Address: [facility] [place] [address] ?Director: Odalys Bangura Rosa Delgado NP LAB BLOOD ORDERABLES [facility] [place] [facility]) documented in this encounter Visit Diagnoses Not on filedocumented in this encounter Care Teams Finish Rolls Operator Relationship Specialty Start Date End Date Jonatan Worley MD [address] [place] [address] PCP - General 06/06/21 documented as of this encounter
--- OUTSIDE RECORDS SUMMARY | 2024-08-29 04:31 | XMS_ITS | Encounter Summary ---
Author Organization Isaac Physician Ilana utialmas Address [address] [place] [address] Phone Care Team Providers Care Critical Care Nurse Practitioner Name Role Phone Jonatan Worley MD Primary Care Provider [phone] Reason for Visit * Reason Comments Med Refill Encounter Details Date Type Department Care Team ([facility] Contact Info) Description 2023 Refill [facility] [address] [place] [phone] Rosa Delgado NP [address] [phone] Social History Tobacco Use Types Packs/Day Years [...] Upcoming Encounters Date Type Department Care Team ([facility] Contact Info) Description 09/23/2024 3:40 PM TAILORING TEACHER Office Visit [facility] [address] [phone] Rosa Delgado NP [address] [phone] documented as of this encounter Visit Diagnoses Not on filedocumented in this encounter Care Teams Critical Care Nurse Practitioner Relationship Specialty Start Date End Date Jonatan Worley MD [address] [place] [address] PCP - General 06/06/21 documented as of this encounter
--- OUTSIDE RECORDS SUMMARY | 2024-08-29 04:31 | XMS_ITS | Encounter Summary ---
Author Organization Isaac Physician Ilana petersen Address [address] [place] [address] Phone Care Team Providers Care Relay Mechanic Name Role Phone Jonatan Worley MD Primary Care Provider [phone] Reason for Visit * Reason Comments CKD Encounter Details Date Type Department Care Team ([facility] st Contact Info) Description 09/04/2023 10:20 AM SURGICAL AIDE Office Visit [facility] 5[address] [facility] 1 [place] [address] Rosie Hernandez, DRAG OUT MAN [address] [address] Chronic kidney disease, Stage IV [...] Comments Blood Pressure 150/83 09/04/2023 10:14 AM SURGICAL AIDE Pulse 71 09/04/2023 10:14 AM SURGICAL AIDE Temperature - - Respiratory Rate - - Oxygen Saturation - - Inhaled Oxygen Concentration - - Weight 104 kg (230 lb) 09/04/2023 10:14 AM SURGICAL AIDE Height 170.2 cm (5' 7 ) 09/04/2023 10:14 AM SURGICAL AIDE Body Mass Index 36.02 09/04/2023 10:14 AM SURGICAL AIDE documented in this encounter Progress Notes * [...] or unspecified type, not stated as uncontrolled ([facility]) Essential hypertension History of nonproliferative diabetic retinopathy [...] visit: Chronic kidney disease, Stage IV (severe) ([facility]) Renal function is stable with creatinine ranging [...] manifestations, type II or unspecified type, uncontrolled ([facility]) Goal A1C to be less than 7 [...] Upcoming Encounters Date Type Department Care Team ([facility] st Contact Info) Description 09/23/2024 3:40 PM SURGICAL AIDE Office Visit [facility] 5[address] [facility] 1 [place] [address] Rosie Hernandez NP [address] [address] Scheduled Orders Name Type Priority Associated Diagnoses Orde r Schedule CBC (Includes Diff/PLT) Lab Routine Anemia in chronic kidney disease Expected: 12/04/2023, Expires: 09/04/2024 Renal Function Panel Lab Routine Chronic kidney disease, Stage IV (severe) ([facility]) Expected: 12/04/2023, Expires: 09/04/2024 Iron And TIBC Lab Routine Anemia in chronic kidney disease Expected: 12/04/2023, Expires: 09/04/2024 Ferritin Lab Routine Anemia in chronic kidney disease Expected: 12/04/2023, Expires: 09/04/2024 PTH Intact w/ Calcium Lab Routine Chronic kidney disease, Stage IV (severe) ([facility]) Expected: 12/04/2023, Expires: 09/04/2024 documented as of this encounter Visit Diagnoses Diagnosis Chronic kidney disease, Stage IV (severe) ([facility] Primary Chronic kidney disease, Stage IV (severe) Diabetes mellitus with renal manifestations, type II or unspecified type, uncontrolled ([facility]) Diabetes mellitus with renal manifestations, type II or unspecified type, uncontrolled Essential (primary) hypertension Anemia in chronic kidney disease Atrophy of kidney documented in this encounter Care Teams Relay Mechanic Relationship Specialty Start Date End Date Jonatan Worley MD [address] [place] [address] PCP - General 06/06/21 documented as of this encounter
--- OUTSIDE RECORDS SUMMARY | 2024-08-29 04:31 | XMS_ITS | Encounter Summary ---
Author Organization Isaac Physician Ilana petersen Address [address] [place] [address] Phone Care Team Providers Care Business Development Coordinator Name Role Phone Jonatan Worley MD Primary Care Provider Reason for Visit * Reason Comments Med Refill Encounter Details Date Type Department Care Team (Late Contact Info) Description 11/08/2023 Refill [facility] [address] [phone] Rosa Delgado BURNER TENDER [address] [address] Diabetes mellitus with renal manifestations, type II or unspecified type, uncontrolled ([facility]) Social History Tobacco Use Types Packs/Day Years [...] (Late Contact Info) Description 09/23/2024 3:40 PM SOAKER Office Visit [facility] 5[address] [facility] 1 [place], [place] [phone] Rosa Delgado BURNER TENDER [address] [phone] documented as of this encounter Visit Diagnoses Diagnosis Diabetes mellitus with renal manifestations, type II or unspecified type, uncontrolled ([facility]) Diabetes mellitus with renal manifestations, type II or unspecified type, uncontrolled documented in this encounter Care Teams Business Development Coordinator Relationship Specialty Start Date End Date Jonatan Worley MD [address] [place] [address] PCP - General 06/06/21 documented as of this encounter
--- OUTSIDE RECORDS SUMMARY | 2024-08-29 04:31 | XMS_ITS | Encounter Summary ---
Author Organization Isaac Physician Ilana petersen Address [address] [place] [address] Phone Care Team Providers Care Marketing Producer Name Role Phone Jonatan Worley MD Primary Care Provider [phone] Encounter Details Date Type Department Care Team ([facility] Contact Info) Description 12/29/2023 Orders Only [facility] [address] [facility] 1 [place] [address] Rosa Delgado NP [address] [address] Social History Tobacco Use Types [...] (Late Contact Info) Description 09/23/2024 3:40 PM FULFILLMENT MAIL CLERK Office Visit [facility] [address] [facility] 1 [place] [address] Rosa Delgado NP [address] [address] documented as of this encounter [...] Ferritin, Serum/Plasma 73 16 - 288 ng/mL [facility] [place] 12/29/2023 9:40 AM CDT 12/29/2023 9:40 AM CDT Narrative [facility] [place] [facility] - 12/30/2023 6:55 AM CDT FASTING:YES AN UPDATE OR CORRECTION HAS BEEN MADE TO NAME FASTING: YES Resulting Agency Comment Performing Organization Information: ?Site ID: [place] ?Name: [email or web address] ?Address: [address] [place] [address] ?Director: Odalys Bangura MD Rosa Delgado NP LAB BLOOD ORDERABLES [facility] [facility] * (ABNORMAL) Iron and TIBC, Serum (12/29/2023 9:40 AM CDT) Pathologist [facility] Iron, Serum/Plasma 44(L) 45 - 160 mcg/dL [facility] [place] ([facility]) Iron binding capacity, Serum/Plasma 256 250 - 450 mcg/dL (calc) [facility] ([facility]) Iron saturation, Serum/Plasma 17 16 - 45 % (calc) [facility] [place] ([facility]) 12/29/2023 9:40 AM CDT 12/29/2023 9:40 AM CDT Narrative [facility] ([facility]) - 12/30/2023 6:55 AM CDT FASTING:YES AN UPDATE OR CORRECTION HAS BEEN MADE TO NAME FASTING: YES Resulting Agency Comment Performing Organization Information: ?Site ID: [place] ?Name: [facility] ?Address: [address] [address] ?Director: Odalys Bangura MD Rosa Delgado NP LAB BLOOD ORDERABLES [facility] ([facility]) * (ABNORMAL) PTH Intact and Calcium, Serum (12/29/2023 9:40 AM CDT) PTH, Intact, Serum/Plasma 111(H) 16 - 77 pg/mL [facility] ([facility]) Comment: Interpretive [...] AM CDT 12/29/2023 9:40 AM CDT Narrative [facility] ([facility]) - 12/30/2023 6:55 AM CDT FASTING:YES AN UPDATE OR CORRECTION HAS BEEN MADE TO NAME FASTING: YES Resulting Agency Comment Performing Organization Information: ?Site ID: [place] ?Name: [employer] [facility] ?Address: [facility] [place] [address] ?Director: Odalys Bangura MD Rosa Delgado NP LAB BLOOD ORDERABLES [facility] ([facility]) * (ABNORMAL) Renal Function Panel (RFP) (12/29/2023 9:40 AM CDT) Glucose, Serum/Plasma 180(H) 65 - 99 mg/dL [facility] ([facility]) Comment: ? Fasting reference interval For someone without known diabetes, a glucose value >125 mg/dL indicates that they may have diabetes and this should be confirmed with a follow-up test. Urea nitrogen, Serum/Plasma (BUN) 50(H) 7 - 25 mg/dL [facility] ([facility]) Creatinine, Serum/Plasma 3.12(H) 0.50 - 1.05 mg/dL [facility] [place] ([facility]) Estimated Glomerular Filtration Rate (eGFR) 16(L) > OR = 60 mL/min/1.7 3m2 [facility] ([facility]) Urea nitrogen/Creati nine, Serum/Plasma 16 6 - 22 (calc) [facility] [place] [facility]) Sodium, Serum/Plasma 134(L) 135 - 146 mmol/L [facility] ([facility]) Potassium, Serum/Plasma 4.8 3.5 - 5.3 mmol/L [facility] [place] [facility]) Chloride, Serum/Plasma 108 98 - 110 mmol/L [facility] [place]) Carbon dioxide CO2), total, Serum/Plasma 19(L) 20 - 32 mmol/L [facility]) Calcium, Serum/Plasma 8.3(L) 8.6 - 10.4 mg/dL [facility]) Phosphate, Serum/Plasma 4.9(H) 2.5 - 4.5 mg/dL [facility] ([facility]) Albumin, Serum/Plasma 3.5(L) 3.6 - 5.1 g/dL [facility]) 12/29/2023 9:40 AM CDT 12/29/2023 9:40 AM CDT Narrative [facility] ([facility]) - 12/30/2023 6:55 AM CDT FASTING:YES AN UPDATE OR CORRECTION HAS BEEN MADE TO NAME FASTING: YES Resulting Agency Comment Performing Organization Information: ?Site ID: ?Name: [email or web address] ?Address: [facility] [place] [address] ?Director: Odalys Bangura Rosa Delgado NP LAB BLOOD ORDERABLES [facility] ([facility]) * (ABNORMAL) CBC (includes Differential/Platelets) (12/29/2023 9:40 AM CDT) Leukocytes, Blood 6.2 3.8 - 10.8 Thousand/u L [facility] ([facility]) Erythrocytes (RBC) 3.24(L) 3.80 - 5.10 Million/uL [facility] ([facility]) Hemoglobin (HGB) 9.7(L) 11.7 - 15.5 g/dL [facility] ([facility]) Hematocrit (HCT) [...] 9:40 AM CDT Narrative [facility]) - 12/30/2023 6:55 AM CDT FASTING:YES AN UPDATE OR CORRECTION HAS BEEN MADE TO NAME FASTING: YES Resulting Agency Comment Performing Organization Information: ?Site ID: [place] ?Name: [email or web address] ?Address: [address] [place] [address] ?Director: Odalys Bangura Rosa Delgado METAL PATTERN MAKER LAB BLOOD ORDERABLES [facility]) documented in this encounter Visit Diagnoses Not on filedocumented in this encounter Care Teams Marketing Producer Relationship Specialty Start Date End Date Jonatan Worley MD [address] [place] [phone] PCP - General 06/06/21 documented as of this encounter
--- OUTSIDE RECORDS SUMMARY | 2024-08-29 04:31 | XMS_ITS | Encounter Summary ---
Author Organization Isaac Physician Ilana utialmas Address [address] [place] [phone] Phone Care Team Providers Care Executive Legal Secretary Name Role Phone Jonatan Worley MD Primary Care Provider Reason for Visit * Reason Comments Med Refill Encounter Details Date Type Department Care Team ([facility] Contact Info) Description 04/22/2024 Refill [facility] [address] [place] [phone] Rosa Delgado NP [address] [phone] Social History Tobacco Use Types Packs/Day Years [...] Upcoming Encounters Date Type Department Care Team ([facility] Contact Info) Description 09/23/2024 3:40 PM PREPAROLE COUNSELING AIDE Office Visit [facility] [address] [facility] 1 [place], [place] [phone] Rosa Delgado NP [address] [phone] documented as of this encounter Visit Diagnoses Not on filedocumented in this encounter Care Teams Executive Legal Secretary Relationship Specialty Start Date End Date Jonatan Worley MD [address] [place] [address] PCP - General 06/06/21 documented as of this encounter
--- OUTSIDE RECORDS SUMMARY | 2024-08-29 04:31 | XMS_ITS | Encounter Summary ---
Author Organization Isaac Physician Ilana utialmas Address [address] [place] [address] Phone Care Team Providers Care Spinner Tender Name Role Phone Jonatan Worley MD Primary Care Provider [phone] Reason for Visit * Reason Comments Med Refill Encounter Details Date Type Department Care Team ([facility] Contact Info) Description 03/19/2024 Refill [facility] [address] [place] [address] [phone] Rosa Delgado NP [address] [phone] Social History Tobacco Use Types Packs/Day Years [...] Upcoming Encounters Date Type Department Care Team ([facility] Contact Info) Description 09/23/2024 3:40 PM CLINICAL EXERCISE SPECIALIST Office Visit [facility] 5003 [facility] 1 [place], [place] [phone] Rosa Delgado NP [address] [phone] documented as of this encounter Visit Diagnoses Not on filedocumented in this encounter Care Teams Spinner Tender Relationship Specialty Start Date End Date Jonatan Worley MD [address] [place] [address] PCP - General 06/06/21 documented as of this encounter
--- OUTSIDE RECORDS SUMMARY | 2024-08-29 04:31 | XMS_ITS | Encounter Summary ---
Author Organization Isaac Physician Ilana utialmas Address [address] [place] [address] Phone Care Team Providers Care Administrative And Program Specialist Name Role Phone Jonatan Worley MD Primary Care Provider [phone] Reason for Visit * Reason Comments Med Refill Encounter Details Date Type Department Care Team ([facility] Contact Info) Description 06/30/2024 Refill [facility] [address] [place] [address] [phone] Rosa Delgado NP [address] [phone] Social History Tobacco Use Types Packs/Day Years [...] Upcoming Encounters Date Type Department Care Team ([facility] Contact Info) Description 09/23/2024 3:40 PM FUNERAL DIRECTOR Office Visit [facility] 5003 [facility] 1 [place], [place] [phone] Rosa Delgado NP [address] [phone] documented as of this encounter Visit Diagnoses Not on filedocumented in this encounter Care Teams Administrative And Program Specialist Relationship Specialty Start Date End Date Jonatan Worley MD [address] [place] [address] PCP - General 06/06/21 documented as of this encounter
--- OUTSIDE RECORDS SUMMARY | 2024-08-29 04:31 | XMS_ITS | Encounter Summary ---
Author Organization Isaac Physician Ilana petersen Address [address] [place] [address] Phone Care Team Providers Care Composition Molder Name Role Phone Jonatan Worley MD Primary Care Provider [phone] Reason for Visit * Reason Comments Med Refill Encounter Details Date Type Department Care Team (Late Contact Info) Description 12/10/2023 Refill [facility] [address] [phone] Rosa Delgado AVIONICS MECHANIC [address] [address] Diabetes mellitus with renal manifestations, type II or unspecified type, uncontrolled ([facility]) Social History Tobacco Use Types Packs/Day Years [...] (Late Contact Info) Description 09/23/2024 3:40 PM DIGITAL MARKETING ASSISTANT Office Visit [facility] 5003 [facility] 1 [place], [place] [phone] Rosa Delgado AVIONICS MECHANIC [address] [phone] documented as of this encounter Visit Diagnoses Diagnosis Diabetes mellitus with renal manifestations, type II or unspecified type, uncontrolled ([facility]) Diabetes mellitus with renal manifestations, type II or unspecified type, uncontrolled documented in this encounter Care Teams Composition Molder Relationship Specialty Start Date End Date Jonatan Worley MD [address] [place] [address] PCP - General 06/06/21 documented as of this encounter
--- OUTSIDE RECORDS SUMMARY | 2024-08-29 04:31 | XMS_ITS | Encounter Summary ---
Author Organization Isaac Physician Ilana petersen Address [address] [place] [address] Phone Care Team Providers Care Transportation Maintenance Operator Name Role Phone Jonatan Worley MD Primary Care Provider [phone] Reason for Visit * Reason Comments CKD Encounter Details Date Type Department Care Team ([facility] st Contact Info) Description 05/15/2023 11:20 AM CDT Office Visit [facility] 5003 [facility] 1 [place] [address] Rosie Hernandez, ACTIVITIES ASSISTANT [address] [address] Chronic kidney disease, Stage IV [...] History: Diagnosis Date Acute renal failure syndrome ([facility]) 06/05/2021 Anemia in chronic kidney disease 05/27/2022 Diabetes mellitus without mention of complication, type II or unspecified type, not stated as uncontrolled ([facility]) Essential hypertension History of nonproliferative diabetic [...] kidney disease, Stage IV (severe) ([facility] Renal function stable at advanced stage. We [...] II or unspecified type, uncontrolled ([facility] Goal A1C to be [...] Upcoming Encounters Date Type Department Care Team ([facility] st Contact Info) Description 09/23/2024 3:40 PM TRACER BULLET SECTION SUPERVISOR Office Visit [facility] 5003 [facility] 1 [place] [address] Rosie Hernandez NP 5003 [facility] Juan M 1 [place] [address] Scheduled Orders Name Type Priority [...] Routine Chronic kidney disease, Stage IV (severe) ([facility]) Expected: 08/14/2023, Expires: 05/15/2024 Renal Function Panel Lab Routine Chronic kidney disease, Stage IV (severe) ([facility]) Expected: 08/14/2023, Expires: 05/15/2024 documented as of this encounter Visit Diagnoses Diagnosis Chronic kidney disease, Stage IV (severe) ([facility])- Primary Chronic kidney disease, Stage IV (severe) Essential (primary) hypertension Diabetes mellitus with renal manifestations, type II or unspecified type, uncontrolled ([facility]) Diabetes mellitus with renal manifestations, type II or unspecified type, uncontrolled Anemia in chronic kidney disease Atrophy of kidney documented in this encounter Care Teams Transportation Maintenance Operator Relationship Specialty Start Date End Date Jonatan Worley MD [address] [place] [address] PCP - General 06/06/21 documented as of this encounter
--- OUTSIDE RECORDS SUMMARY | 2024-08-29 04:31 | XMS_ITS | Encounter Summary ---
Author Organization Isaac Physician Ilana utialmas Address [address] [place] [address] Phone Care Team Providers Care Senior Center Manager Name Role Phone Jonatan Worley MD Primary Care Provider [phone] Reason for Visit * Reason Comments Med Refill Encounter Details Date Type Department Care Team ([facility] Contact Info) Description 08/06/2024 Refill [facility] [address] [place] [address] [phone] Rosa Delgado NP [address] [phone] Social History Tobacco Use Types Packs/Day Years [...] Hospital Contact Info) Description 09/23/2024 3:40 PM PROCESS CONTROL PROGRAMMER Office Visit [facility] [address] [phone] Rosa Delgado NP [address] [phone] documented as of this encounter Visit Diagnoses Not on filedocumented in this encounter Care Teams Senior Center Manager Relationship Specialty Start Date End Date Jonatan Worley MD [address] [place] [address] PCP - General 06/06/21 documented as of this encounter
--- OUTSIDE RECORDS SUMMARY | 2024-08-29 04:31 | XMS_ITS | Encounter Summary ---
Author Organization Isaac Physician Ilana utialmas Address [address] [place] [address] Phone Care Team Providers Care Project Inspector Name Role Phone Jonatan Worley MD Primary Care Provider Reason for Visit * Reason Comments Med Refill Encounter Details Date Type Department Care Team (Late st Contact Info) Description 06/21/2022 Refill [facility] 2100 [facility] 206 [place] [address] Raji Shook MD 5003 [facility] 1 [place] [address] Diabetes mellitus with renal manifestations, type II or unspecified type, uncontrolled ([facility]) Social History Tobacco Use Types [...] Contact Info) Description 09/23/2024 3:40 PM MEDICAL IMAGING SPECIALIST Office Visit [facility] 5003 [facility] 1 [place] [address] Rosa Delgado, WIRE REPAIRER [address] [facility] 1 [place] [address] documented as of this encounter Visit Diagnoses Diagnosis Diabetes mellitus with renal manifestations, type II or unspecified type, uncontrolled ([facility]) Diabetes mellitus with renal manifestations, type II or unspecified type, uncontrolled documented in this encounter Care Teams Project Inspector Relationship Specialty Start Date End Date Jonatan Worley MD [address] [place] [phone] PCP - General 06/06/21 documented as of this encounter
--- OUTSIDE RECORDS SUMMARY | 2024-08-29 04:31 | XMS_ITS | Encounter Summary ---
Author Organization Isaac Physician Ilana petersen Address [address] [place] [address] Phone Care Team Providers Care Manufacturing Quality Inspector Name Role Phone Jonatan Worley MD Primary Care Provider [phone] Encounter Details Date Type Department Care Team ([facility] Contact Info) Description 09/26/2022 Orders Only [facility] [address] [place] [address] 1 [place], [place] [phone] Rosa Delgado NP [address] [address] Social History Tobacco Use Types [...] (Late Contact Info) Description 09/23/2024 3:40 PM ROTARY SCREEN PRINTING MACHINE OPERATOR Office Visit [facility] 5003 [facility] 1 [place], [place] [phone] Rosa Delgado NP [address] [phone] documented as of this encounter Procedures Procedure Name Priority Date/Time Associated Diagnosis Comments CBC (INCLUDES DIFFERENTIAL/PLATEL ETS) Routine 09/26/2022 10:33 AM ROTARY SCREEN PRINTING MACHINE OPERATOR RENAL FUNCTION PANEL (RFP) Routine 09/26/2022 10:33 AM ROTARY SCREEN PRINTING MACHINE OPERATOR IRON TIBC AND FERRITIN PANEL Routine 09/26/2022 10:33 AM ROTARY SCREEN PRINTING MACHINE OPERATOR PTH INTACT AND CALCIUM, SERUM Routine 09/26/2022 10:33 AM ROTARY SCREEN PRINTING MACHINE OPERATOR documented in this encounter Results * (ABNORMAL) Renal Function Panel (RFP) (09/26/2022 10:33 AM ROTARY SCREEN PRINTING MACHINE OPERATOR) Pathologist [facility] Glucose, Serum/Plasma 131(H) 65 - 99 mg/dL [facility] ([facility]) Comment: ? [...] Albumin, Serum/Plasma 3.3(L) 3.6 - 5.1 g/dL [facility] ([facility]) 09/26/2022 10:3 3 AM ROTARY SCREEN PRINTING MACHINE OPERATOR 09/26/2022 10:35 AM ROTARY SCREEN PRINTING MACHINE OPERATOR Narrative [facility] ([facility]) - 09/27/2022 6:13 AM ROTARY SCREEN PRINTING MACHINE OPERATOR FASTING:YES FASTING: YES Resulting Agency Comment Performing Organization Information: ?Site ID: [id number] ?Name: [facility] ?Address: [address] [place] [id number] ?Director: Odalys Bangura MD Rosa Delgado NP LAB BLOOD ORDERABLES [facility] ([facility]) * PTH Intact and Calcium, Serum (09/26/2022 10:33 AM ROTARY SCREEN PRINTING MACHINE OPERATOR) PTH, Intact, Serum/Plasma 67 16 - 77 pg/mL [facility] ([facility]) Comment: Interpretive Guide ?Intact PTH ? Calcium ? ------- Normal Parathyroid ?Normal ? Normal Hypoparathyroidism ?Low or Low Normal ?Low Hyperparathyroidism ?? Primary ?Normal or High ? High ?? Secondary ?High ? Normal or Low ?? Tertiary ? High ? High Non-Parathyroid ?? Hypercalcemia ?Low or Low Normal ?High Calcium, Serum/Plasma 8.9 8.6 - 10.4 mg/dL [facility] ([facility]) 09/26/2022 10:3 3 AM ROTARY SCREEN PRINTING MACHINE OPERATOR 09/26/2022 10:35 AM ROTARY SCREEN PRINTING MACHINE OPERATOR Narrative [facility] ([facility]) - 09/27/2022 6:13 AM ROTARY SCREEN PRINTING MACHINE OPERATOR FASTING:YES FASTING: YES Resulting Agency Comment Performing Organization Information: ?Site ID: [id number] ?Name: [facility] ?Address: [address] [place] [id number] ?Director: Odalys Bangura MD Rosa Delgado NP LAB BLOOD ORDERABLES [facility] (ST) * Iron TIBC And Ferritin Panel (09/26/2022 10:33 AM ROTARY SCREEN PRINTING MACHINE OPERATOR) Iron, Serum/Plasma 62 45 - 160 mcg/dL [facility] ([facility]) Iron binding capacity, Serum/Plasma 257 250 - 450 mcg/dL (calc) [facility] ([facility]) Iron saturation, Serum/Plasma 24 16 - 45 % (calc) [facility] ([facility]) Ferritin, Serum/Plasma 66 16 - 232 ng/mL [facility] ([facility]) 09/26/2022 10:3 3 AM ROTARY SCREEN PRINTING MACHINE OPERATOR 09/26/2022 10:35 AM ROTARY SCREEN PRINTING MACHINE OPERATOR Narrative [facility] ([facility]) - 09/27/2022 6:13 AM ROTARY SCREEN PRINTING MACHINE OPERATOR FASTING:YES FASTING: YES Resulting Agency Comment Performing Organization Information: ?Site ID: [id number] ?Name: [facility] ?Address: [address] [address] ?Director: Odalys Bangura MD Rosa Delgado NP LAB BLOOD ORDERABLES [facility] ([facility]) * (ABNORMAL) CBC (includes Differential/Platelets) (09/26/2022 10:33 AM ROTARY SCREEN PRINTING MACHINE OPERATOR) Leukocytes, Blood 10.3 3.8 - 10.8 Thousand/u [...] [facility] [place] ([facility]) 09/26/2022 10:3 3 AM ROTARY SCREEN PRINTING MACHINE OPERATOR 09/26/2022 10:35 AM ROTARY SCREEN PRINTING MACHINE OPERATOR Narrative [facility] ([facility]) - 09/27/2022 6:13 AM ROTARY SCREEN PRINTING MACHINE OPERATOR FASTING:YES FASTING: YES Resulting Agency Comment Performing Organization Information: ?Site ID: [id number] ?Name: [facility] ?Address: [facility] [address] [address] ?Director: Oadlys Bangura MD Rosa Delgado STRAWHAT INSPECTOR AND PACKER LAB BLOOD ORDERABLES [facility]) documented in this encounter Visit Diagnoses Not on filedocumented in this encounter Care Teams Manufacturing Quality Inspector Relationship Specialty Start Date End Date Jon[place] [address] PCP - General 06/06/21 documented as of this encounter
--- OUTSIDE RECORDS SUMMARY | 2024-08-29 04:31 | XMS_ITS | Encounter Summary ---
Author Organization Isaac Physician Ilana petersen Address [address] [place] [address] Phone Care Team Providers Care Roll Grinder Operator Name Role Phone Jonatan Worley MD Primary Care Provider [phone] Reason for Visit * Reason Onset Date Comments Med Refill 01/21/2024 Encounter Details Date Type Department Care Team ([facility] Contact Info) Description 01/21/2024 Refill [facility] [address] [address] Preethi Almendarez RN Social History Tobacco Use [...] Upcoming Encounters Date Type Department Care Team ([facility] Contact Info) Description 09/23/2024 3:40 PM SOFTWARE QUALITY TEST ENGINEER Office Visit [facility] [address] [address] Rosa Delgado NP [address] [address] documented as of this encounter Visit Diagnoses Not on filedocumented in this encounter Care Teams Roll Grinder Operator Relationship Specialty Start Date End Date Jonatan Worley MD [address] [place] [address] PCP - General 06/06/21 documented as of this encounter
--- OUTSIDE RECORDS SUMMARY | 2024-08-29 04:31 | XMS_ITS | Encounter Summary ---
Author Organization Isaac Physician Ilana utialmas Address [address] [place] [address] Phone Care Team Providers Care Parts And Service Manager Name Role Phone Jonatan Worley MD Primary Care Provider [phone] Reason for Visit * Reason Comments Med Refill Encounter Details Date Type Department Care Team ([facility] Contact Info) Description 10/20/2023 Refill [facility] [address] [place] [address] [phone] Rosa Delgado NP [address] [phone] Social History Tobacco Use Types Packs/Day Years [...] Encounters Date Type Department Care Team ([facility] Contact Info) Description 09/23/2024 3:40 PM STOCK WORKER AND DELIVERER Office Visit [facility] [address] [phone] Rosa Delgado NP [address] [phone] documented as of this encounter Visit Diagnoses Not on filedocumented in this encounter Care Teams Parts And Service Manager Relationship Specialty Start Date End Date Jonatan Worley MD [address] [place] [address] PCP - General 06/06/21 documented as of this encounter
--- OUTSIDE RECORDS SUMMARY | 2024-08-29 04:31 | XMS_ITS | Encounter Summary ---
Author Organization Isaac Physician Ilana utialmas Address [address] [place] [address] Phone Care Team Providers Care Public Health Advisor Name Role Phone Jonatan Worley MD Primary Care Provider [phone] Reason for Visit * Reason Comments Med Refill Encounter Details Date Type Department Care Team ([facility] Contact Info) Description 05/23/2024 Refill [facility] [address] [place] [address] [phone] Rosa Delgado NP [address] [phone] Social History Tobacco Use Types Packs/Day Years [...] Upcoming Encounters Date Type Department Care Team ([facility] Contact Info) Description 09/23/2024 3:40 PM DOOR CUTTER Office Visit [facility] 5003 [facility] 1 [place], [place] [phone] Rosa Delgado NP [address] [phone] documented as of this encounter Visit Diagnoses Not on filedocumented in this encounter Care Teams Public Health Advisor Relationship Specialty Start Date End Date Jonatan Worley MD [address] [place] [address] PCP - General 06/06/21 documented as of this encounter
--- OUTSIDE RECORDS SUMMARY | 2024-08-29 04:31 | XMS_ITS | Encounter Summary ---
Author Organization Isaac Physician Ilana utialmas Address [address] [place] [address] Phone Care Team Providers Care Road Conductor Name Role Phone Jonatan Worley MD Primary Care Provider [phone] Reason for Visit * Reason Comments Med Refill Encounter Details Date Type Department Care Team ([facility] Contact Info) Description 11/13/2023 Refill [facility] [address] [place] [address] [phone] Rosa Delgado NP [address] [phone] Social History Tobacco Use Types Packs/Day Years [...] Upcoming Encounters Date Type Department Care Team ([facility] Contact Info) Description 09/23/2024 3:40 PM CONSULTING UTILITY FORESTER Office Visit [facility] [address] [phone] Rosa Delgado NP [address] [phone] documented as of this encounter Visit Diagnoses Not on filedocumented in this encounter Care Teams Road Conductor Relationship Specialty Start Date End Date Jonatan Worley MD [address] [place] [address] PCP - General 06/06/21 documented as of this encounter
--- OUTSIDE RECORDS SUMMARY | 2024-08-29 04:31 | XMS_ITS | Encounter Summary ---
Author Organization Isaac Physician Ilana petersen Address [address] [place] [address] Phone Care Team Providers Care Appliance Worker Name Role Phone Jonatan Worley MD Primary Care Provider [phone] Reason for Visit * Reason Comments CKD Encounter Details Date Type Department Care Team ([facility] st Contact Info) Description 06/12/2022 11:00 AM CDT Telemedicine [facility] 5003 [facility] 1 [place] [address] Rosie Hernandez NP [address] [address] Chronic kidney disease, Stage IV [...] - 06/12/2022 11:00 AM CDT Patient: Arely Ernandez Birthdate: [...] day ??? ergocalciferol (VITAMIN D-2) 1.25 MG (74977 UT) capsule Take 50,000 Units by mouth [...] Chronic kidney disease, Stage IV (severe) [place] Renal function has returned to baseline. We discussed importance of hydration with use of farxiga and benefit of use with renal disease. She will continue to make efforts to maintain good hydration. At this time without further worsening will see patient back in 4 months with repeat labs. Visit today via phone at [phone] totaling 10 minutes. - CBC (Includes Diff/PLT); Future - PTH Intact w/ Calcium; Future - Renal Function Panel; Future - Urinalysis, Routine; Future - Albumin/Creatinine Ratio, Random, Urine ([facility] Only); Future Diabetes mellitus with renal manifestations, type II or unspecified type, uncontrolled ([facility]) Goal [...] st Contact Info) Description 09/23/2024 3:[address] DES[address] DRAFTSPERSON Office Visit [facility] 5003 [facility] 1 [place] [address] Rosie Hernandez NP [address] [phone] Scheduled Orders Name Type Priority Associated Diagnoses Orde r Schedule CBC (Includes Diff/PLT) Lab Routine Chronic kidney disease, Stage IV (severe) ([facility]) Expected: 09/12/2022, Expires: 06/12/2023 PTH Intact w/ Calcium Lab Routine Chronic kidney disease, Stage IV (severe) ([facility]) Expected: 09/12/2022, Expires: 06/12/2023 Renal Function Panel Lab Routine Chronic kidney disease, Stage IV (severe) ([facility]) Expected: 09/12/2022, Expires: 06/12/2023 Urinalysis, Routine Lab Routine Chronic kidney disease, Stage IV (severe) ([facility] Expected: 09/12/2022, Expires: 06/12/2023 Albumin/Creatinine Ratio, Random, Urine ([facility] Only) Lab Routine Chronic kidney disease, Stage IV (severe) ([facility] Expected: 09/12/2022, Expires: 06/12/2023 documented as of this encounter Visit Diagnoses Diagnosis Chronic kidney disease, Stage IV (severe) ([facility] Primary Chronic kidney disease, Stage IV (severe) Diabetes mellitus with renal manifestations, type II or unspecified type, uncontrolled ([facility] Diabetes mellitus with renal manifestations, type II or unspecified type, uncontrolled Anemia in chronic kidney disease Essential (primary) hypertension documented in this encounter Care Teams Appliance Worker Relationship Specialty Start Date End Date Jonatan Worley MD [address] [place] [address] PCP - General 06/06/21 documented as of this encounter
--- OUTSIDE RECORDS SUMMARY | 2024-08-29 04:31 | XMS_ITS | Encounter Summary ---
Author Organization [facility] Ilana petersen Address [address] [place] [address] Phone Care Team Providers Care Medical Technologist Clinical Name Role Phone Jonatan Worley MD Primary Care Provider [phone] Reason for Visit * Reason Comments Med Refill Encounter Details Date Type Department Care Team (Late Contact Info) Description 02/10/2023 Refill [facility] [address] [phone] Rosa Delgado FREEZER PERSON [address] [address] Diabetes mellitus with renal manifestations, type II or unspecified type, uncontrolled ([facility]) Social History Tobacco Use Types Packs/Day Years [...] (Late Contact Info) Description 09/23/2024 3:40 PM DIETARY TECH Office Visit [facility] 5003 [facility] 1 [place], [place] [id number] Rosa Delgado FREEZER PERSON [address] [phone] documented as of this encounter Visit Diagnoses Diagnosis Diabetes mellitus with renal manifestations, type II or unspecified type, uncontrolled ([facility]) Diabetes mellitus with renal manifestations, type II or unspecified type, uncontrolled documented in this encounter Care Teams Medical Technologist Clinical Relationship Specialty Start Date End Date Jonatan Worley MD [address] [place] [address] PCP - General 06/06/21 documented as of this encounter
--- OUTSIDE RECORDS SUMMARY | 2024-08-29 04:31 | XMS_ITS | Encounter Summary ---
Author Organization [facility] Ilana petersen Address [address] [place] [phone] Phone Care Team Providers Care Medical Assistant Float Name Role Phone Jonatan Worley MD Primary Care Provider Reason for Visit * Reason Onset Date Comments Med Refill 04/07/2024 Encounter Details Date Type Department Care Team ([facility] Contact Info) Description 04/07/2024 Refill [facility] [address] [address] Preethi Almendarez RN Diabetes mellitus with renal manifestations, type II or unspecified type, uncontrolled ([facility]) Social History Tobacco Use Types Packs/Day Years [...] Encounters Date Type Department Care Team ([facility] Contact Info) Description 09/23/2024 3:40 PM LUNCH TRUCK DRIVER Office Visit [facility] 5003 [facility] 1 [place] [address] Rosa Delgado NP [address] [phone] documented as of this encounter Visit Diagnoses Diagnosis Diabetes mellitus with renal manifestations, type II or unspecified type, uncontrolled ([facility]) Diabetes mellitus with renal manifestations, type II or unspecified type, uncontrolled documented in this encounter Care Teams Medical Assistant Float Relationship Specialty Start Date End Date Jonatan Worley MD [address] [place] [phone] PCP - General 06/06/21 documented as of this encounter
--- OUTSIDE RECORDS SUMMARY | 2024-08-29 04:31 | XMS_ITS | Encounter Summary ---
Author Organization [facility] Ilana petersen Address [address] [place] [address] Phone Care Team Providers Care Rn Procedure Name Role Phone Jonatan Worley MD Primary Care Provider [phone] Reason for Visit * Reason Comments CKD Encounter Details Date Type Department Care Team ([facility] st Contact Info) Description 05/20/2024 11:00 AM CDT Office Visit [facility] 5003 [facility] 1 [place] [address] Rosie Hernandez NP [address] [address] Chronic kidney disease, Stage IV [...] up. Was recently hospitalized in March at [facility] for pneumonia, dehydration, and UTI. She reports [...] visit: Chronic kidney disease, Stage IV (severe) ([facility]) - PTH Intact w/ Calcium; Future - Renal Function Panel; Future Diabetes mellitus with renal manifestations, type II or unspecified type, uncontrolled ([facility]) Essential (primary) hypertension Anemia in chronic kidney disease - CBC (Includes Diff/PLT); Future - Ferritin; Future - Iron And TIBC; Future Chronic metabolic acidosis Renal function has been stable at advanced stage IV. Discussed with patient importance of hydration. We discussed need to consider options for dialysis as the time to plan depending on modality is [place] tight window and she may progress into [...] st Contact Info) Description 09/23/2024 3:40 PM PULP DRIER Office Visit [facility] 5003 [facility] 1 [place] [address] Rosie Hernandez NP [address] [address] Scheduled Orders Name Type Priority Associated Diagnoses [...] acidosis documented in this encounter Care Teams Rn Procedure Relationship Specialty Start Date End Date Jonatan Worley MD [address] [place] [address] PCP - General 06/06/21 documented as of this encounter
--- OUTSIDE RECORDS SUMMARY | 2024-08-29 04:31 | XMS_ITS | Encounter Summary ---
Author Organization [facility] Ilana utialmas Address [address] [place] [address] Phone Care Team Providers Care Front Desk Monitor Name Role Phone Jonatan Worley MD Primary Care Provider [phone] Reason for Visit * Reason Comments Med Refill Encounter Details Date Type Department Care Team (Late st Contact Info) Description 04/16/2022 Refill [facility] [address] [phone] Raji Shook MD [address] [address] Diabetes mellitus with renal manifestations, type II or unspecified type, uncontrolled ([facility]) Social History Tobacco Use Types [...] st Contact Info) Description 09/23/2024 3:40 PM IT ENGINEER Office Visit [facility] [address] [facility] 1 [place] [address] Rosa Delgado NP 5003 [facility] 1 [place] [address] documented as of this encounter Visit Diagnoses Diagnosis Diabetes mellitus with renal manifestations, type II or unspecified type, uncontrolled ([facility]) Diabetes mellitus with renal manifestations, type II or unspecified type, uncontrolled documented in this encounter Care Teams Front Desk Monitor Relationship Specialty Start Date End Date Jonatan Worley MD [address] [place] [address] PCP - General 06/06/21 documented as of this encounter
--- OUTSIDE RECORDS SUMMARY | 2024-08-29 04:31 | XMS_ITS | Encounter Summary ---
Author Organization [facility] Ilana petersen Address [address] [place] [address] Phone Care Team Providers Care Investment Executive Name Role Phone Jonatan Worley MD Primary Care Provider [phone] Reason for Visit * Reason Comments CKD Encounter Details Date Type Department Care Team ([facility] st Contact Info) Description 04/11/2022 2:20 PM CDT Office Visit [facility] 5003 [facility] 1 [place] [address] Rosie Hernandez, SAND TECHNICIAN [address] [address] Chronic kidney disease, Stage IV [...] - 04/11/2022 2:20 PM CDT Patient: Arely Ernanedz Birthdate: 1960 PCP: Jonatan Worley MD Reason [...] day ??? ergocalciferol (VITAMIN D-2) 1.25 MG (60220 UT) capsule Take 50,000 Units by mouth [...] visit: Chronic kidney disease, Stage IV (severe) ([facility]) Slight worsening in creatinine could be [...] manifestations, type II or unspecified type, uncontrolled ([facility]) Goal A1C to be less than 7 Currently controlled per patient reports. Atrophy of kidney Anemia in chronic kidney disease Stable will monitor No indication for MARGARETH at this time ROSIE HERNANDEZ NP documented in this encounter Plan of Treatment Upcoming Encounters Date Type Department Care Team (Late st Contact Info) Description 09/23/2024 3:40 PM PRODUCT HANDLER Office Visit [facility] 5003 [facility] 1 [place] [address] Rosie Hernandez NP [address] [address] Scheduled Orders Name Type Priority Associated Diagnoses Orde r Schedule CBC (Includes Diff/PLT) Lab Routine Chronic kidney disease, Stage IV (severe) ([facility]) Expected: 07/12/2022, Expires: 04/11/2023 Renal Function Panel Lab Routine Chronic kidney disease, Stage IV (severe) ([facility]) Expected: 07/12/2022, Expires: 04/11/2023 PTH Intact w/ Calcium Lab Routine Chronic kidney disease, Stage IV (severe) ([facility]) Expected: 07/12/2022, Expires: 04/11/2023 Ferritin Lab Routine Chronic kidney disease, Stage IV (severe) ([facility]) Expected: 07/12/2022, Expires: 04/11/2023 Iron And TIBC Lab Routine Chronic kidney disease, Stage IV (severe) ([facility]) Expected: 07/12/2022, Expires: 04/11/2023 documented as of this encounter Visit Diagnoses Diagnosis Chronic kidney disease, Stage IV (severe) ([facility] Primary Chronic kidney disease, Stage IV (severe) Essential (primary) hypertension Diabetes mellitus with renal manifestations, type II or unspecified type, uncontrolled ([facility]) Diabetes mellitus with renal manifestations, type II or unspecified type, uncontrolled Atrophy of kidney Anemia in chronic kidney disease documented in this encounter Care Teams Investment Executive Relationship Specialty Start Date End Date Jonatan Worley MD [address] [place] [address] PCP - General 06/06/21 documented as of this encounter
--- OUTSIDE RECORDS SUMMARY | 2024-08-29 04:31 | XMS_ITS | Encounter Summary ---
Author Organization [facility] Ilana utialmas Address [address] [place] [address] Phone Care Team Providers Care Oceanographer Assistant Name Role Phone Jonatan Worley MD Primary Care Provider [phone] Reason for Visit * Reason Comments Med Refill Encounter Details Date Type Department Care Team (Late st Contact Info) Description 06/07/2022 Refill [facility] [address] [phone] Raji Shook MD [address] [address] Diabetes mellitus with renal manifestations, type II or unspecified type, uncontrolled ([facility]) Social History Tobacco Use Types Packs/Day Years [...] st Contact Info) Description 09/23/2024 3:40 PM WATER RESOURCES TECHNICAL OFFICER Office Visit [facility] 5003 [facility] 1 [place] [address] Rosa Delgado NP 5003 [facility] 1 [place] [address] documented as of this encounter Visit Diagnoses Diagnosis Diabetes mellitus with renal manifestations, type II or unspecified type, uncontrolled ([facility]) Diabetes mellitus with renal manifestations, type II or unspecified type, uncontrolled documented in this encounter Care Teams Oceanographer Assistant Relationship Specialty Start Date End Date Jonatan Worley MD [address] [place] [address] PCP - General 06/06/21 documented as of this encounter
--- OUTSIDE RECORDS SUMMARY | 2024-08-29 04:31 | XMS_ITS | Encounter Summary ---
Author Organization [facility] Ilana utialmas Address [address] [place] [address] Phone Care Team Providers Care Head Sugar Reprocess Operator Name Role Phone Jonatan Worley MD Primary Care Provider [phone] Reason for Visit * Reason Comments Med Refill Encounter Details Date Type Department Care Team (Late st Contact Info) Description 07/09/2022 Refill [facility] [address] [phone] Raji Shook MD [address] [address] Diabetes mellitus with renal manifestations, type II or unspecified type, uncontrolled ([facility]) Social History Tobacco Use Types Packs/Day [...] st Contact Info) Description 09/23/2024 3:40 PM PLANNER INTERN Office Visit [facility] 5003 [facility] 1 [place] [address] Rosa Delgado NP 5003 [facility] 1 [place] [address] documented as of this encounter Visit Diagnoses Diagnosis Diabetes mellitus with renal manifestations, type II or unspecified type, uncontrolled ([facility]) Diabetes mellitus with renal manifestations, type II or unspecified type, uncontrolled documented in this encounter Care Teams Head Sugar Reprocess Operator Relationship Specialty Start Date End Date Jonatan Worley MD [address] [place] [address] PCP - General 06/06/21 documented as of this encounter
--- OUTSIDE RECORDS SUMMARY | 2024-08-29 04:31 | XMS_ITS | Encounter Summary ---
Author Organization [facility] Ilana petersen Address [address] [place] [address] Phone Care Team Providers Care Creative Art Director Name Role Phone Jonatan Worley MD Primary Care Provider [phone] Reason for Visit * Reason Comments CKD Encounter Details Date Type Department Care Team ([facility] st Contact Info) Description 01/01/2024 10:00 AM CDT Office Visit [facility] 5003 [facility] 1 [place] [address] Rosie Hernandez NP [address] [address] Chronic kidney disease, Stage IV [...] visit: Chronic kidney disease, Stage IV (severe) ([facility]) Renal function continues to slowly worsen. I [...] manifestations, type II or unspecified type, uncontrolled ([facility]) Goal A1C to be less than 7 [...] st Contact Info) Description 09/23/2024 3:40 PM MILLINERY COPYIST Office Visit [facility] [address] [facility] [address] [place] [address] Rosie Hernandez NP [address] [address] Scheduled Orders Name Type Priority Associated Diagnoses Orde r Schedule CBC (Includes Diff/PLT) Lab Routine Anemia in chronic kidney disease Expected: 04/02/2024, Expires: 12/31/2024 Ferritin Lab Routine Anemia in chronic kidney disease Expected: 04/02/2024, Expires: 12/31/2024 Iron And TIBC Lab Routine Anemia in chronic kidney disease Expected: 04/02/2024, Expires: 12/31/2024 PTH Intact w/ Calcium Lab Routine Chronic kidney disease, Stage IV (severe) ([facility]) Expected: 04/02/2024, Expires: 12/31/2024 Renal Function Panel Lab Routine Chronic kidney disease, Stage IV (severe) ([facility]) Expected: 04/02/2024, Expires: 12/31/2024 Vitamin D, 25-Hydroxy Lab Routine Chronic kidney disease, Stage IV (severe) ([facility]) Expected: 04/02/2024, Expires: 12/31/2024 documented as of this encounter Visit Diagnoses Diagnosis Chronic kidney disease, Stage IV (severe) ([facility] Primary Chronic kidney disease, Stage IV (severe) Diabetes mellitus with renal manifestations, type II or unspecified type, uncontrolled ([facility]) Diabetes mellitus with renal manifestations, type II or unspecified type, uncontrolled Essential (primary) hypertension Anemia in chronic kidney disease documented in this encounter Care Teams Creative Art Director Relationship Specialty Start Date End Date Jonatan Worley MD [address] [place] [phone] PCP - General 06/06/21 documented as of this encounter
--- OUTSIDE RECORDS SUMMARY | 2024-08-29 04:32 | XMS_ITS | Encounter Summary ---
Author Organization Isaac Physician Ilana utialmas Address [address] [place] [address] Phone Care Team Providers Care Building Equipment Operator Name Role Phone Jonatan Worley MD Primary Care Provider [phone] Encounter Details Date Type Department Care Team ([facility] Contact Info) Description 06/21/2021 Orders Only [facility] [address] [address] Raji Shook MD [address] [address] Social History Tobacco Use Types [...] (Late Contact Info) Description 09/23/2024 3:40 PM WARM IN Office Visit [facility] 5003 [facility] 1 [place] [address] Rosa Delgado NP [address] [address] documented as of this encounter [...] Titer and Pattern (06/21/2021 8:50 AM CDT) DULCE, Serum NEGATIVE NEGATIVE [facility] - S Skyla [...] AC-0: Negative International Consensus on DULCE Patterns (https://doi.org/10.1515/pxce-7372-2451) For additional information, please refer to http://education.QuestDiagnostics.Semantify/faq/MUQ092 (This link is being provided for informational/ educational purposes only.) ?? 06/21/2021 8:50 AM CDT 06/21/2021 8:54 AM CDT Narrative [facility] (STL) - 06/22/2021 2:14 PM CDT FASTING:NO PATIENT UNABLE TO VOID; ADVISED TO RETURN FOR COLLECTION. FASTING: NO Resulting Agency Comment Performing Organization Information: ?Site ID: [place] ?Name: [facility] ?Address: [facility] [place] [address] ?Director: Javier Marquez D.O., MPH Raji Shook MD LAB BLOOD ORDERABLES Performing Organization Address [facility] de Phone Number [facility] (STL) * (ABNORMAL) Complement Total (CH50) (06/21/2021 8:50 AM CDT) Complement total hemolytic CH50, Serum/Plasma >60(H) 31 - 60 U/mL [facility]. [facility] (STL) 06/21/2021 8:50 AM CDT 06/21/2021 8:54 AM CDT Narrative [facility]. [facility] (STL) - 06/22/2021 2:14 PM CDT FASTING:NO PATIENT UNABLE TO VOID; ADVISED TO RETURN FOR COLLECTION. FASTING: NO Resulting Agency Comment Performing Organization Information: ?Site ID: [place] ?Name: [facility] ?Address: [facility] [place] [address] ?Director: Javier Marquez D.O., MPH Raji Shook MD LAB BLOOD ORDERABLES Performing Organization Address [facility] Co de Phone Number [facility] (ST) * Complement C4 (06/21/2021 8:50 AM CDT) Complement C4, Serum/Plasma 28 15 - 57 mg/dL [facility] (STL) 06/21/2021 8:50 AM CDT 06/21/2021 8:54 AM CDT Narrative [facility] (STL) - 06/22/2021 2:14 PM CDT FASTING:NO PATIENT UNABLE TO VOID; ADVISED TO RETURN FOR COLLECTION. FASTING: NO Resulting Agency Comment Performing Organization Information: ?Site ID: [place] ?Name: [facility] ?Address: [facility] [place] [address] ?Director: Javier Marquez D.O., MPH Raji Shook MD LAB BLOOD ORDERABLES Performing Organization Address [facility] Phone Number [facility]) * Complement C3 (06/21/2021 8:50 AM CDT) Complement C3, Serum/Plasma 125 83 - 193 mg/dL [facility] (STL) 06/21/2021 8:50 AM CDT 06/21/2021 8:54 AM CDT Narrative [facility] (STL) - 06/22/2021 2:14 PM CDT FASTING:NO PATIENT UNABLE TO VOID; ADVISED TO RETURN FOR COLLECTION. FASTING: NO Resulting Agency Comment Performing Organization Information: ?Site ID: [place] ?Name: [employer] ?Address: [facility] [place] [address] ?Director: Javier Marquez D.O., MPH Raji Shook MD LAB BLOOD ORDERABLES Performing Organization Address [facility] Co de Phone Number [facility]) * Hepatitis C AB w/Refl To HCV RNA, QN, PCR, Serum (06/21/2021 8:50 AM CDT) Pathologist [facility] Hepatitis C virus Ab, Serum/Plasma NON-REACTI VE NON-REACT LISA [facility]) Hepatitis C virus Ab Signal/Cutoff, Serum/Plasma 0.01 <1.00 [facility] (ST) Comment: HCV antibody was non-reactive. There is no laboratory evidence of HCV infection. In most cases, no further action is required. However, if recent HCV exposure is suspected, a test for HCV RNA (test code 87481) is suggested. For additional information please refer to http://education.Yardbarker Network/faq/KJB58z4 (This link is being provided for informational/ educational purposes only.) 06/21/2021 8:50 AM CDT 06/21/2021 8:54 AM CDT Narrative [facility]) - 06/22/2021 2:14 PM CDT FASTING:NO PATIENT UNABLE TO VOID; ADVISED TO RETURN FOR COLLECTION. FASTING: NO Resulting Agency Comment Performing Organization Information: ?Site ID: [place] ?Name: [employer] [facility] ?Address: [address] [place], [place] [address] [address] ?Director: Javier Marquez D.O., MPH Raji Shook MD LAB BLOOD ORDERABLES [facility] [place] ([facility]) * Hepatitis B Core AB, Total, Serum (06/21/2021 8:50 AM CDT) Pathologist [facility] Hepatitis B virus core Ab, Serum/Plasma NON-REACTI VE NON-REACTI VE [facility] [place] [place] ([facility]) 06/21/2021 8:50 AM CDT 06/21/2021 8:54 AM CDT Narrative [facility] ([facility]) - 06/22/2021 2:14 PM CDT FASTING:NO PATIENT UNABLE TO VOID; ADVISED TO RETURN FOR COLLECTION. FASTING: NO Resulting Agency Comment Performing Organization Information: ?Site ID: [place] ?Name: [employer] ?Address: [facility] [place] [address] ?Director: Javier Marquez D.O., MPH Raji Shook MD LAB BLOOD ORDERABLES Performing Organization Address [facility] Co de Phone Number [facility]) * Hepatitis B Surface AB, QL, Serum (06/21/2021 8:50 AM CDT) Hepatitis B virus surface Ab, Serum NON-REACTI VE NON-REACTI VE [facility] ([facility]) 06/21/2021 8:50 AM CDT 06/21/2021 8:54 AM CDT Narrative [facility] (STL) - 06/22/2021 2:14 PM CDT FASTING:NO PATIENT UNABLE TO VOID; ADVISED TO RETURN FOR COLLECTION. FASTING: NO Resulting Agency Comment Performing Organization Information: ?Site ID: [place] ?Name: [employer] [facility] ?Address: [address] [place], [place] [address] [address] ?Director: Javier Marquez D.O., MPH Raji Shook MD LAB BLOOD ORDERABLES Performing Organization Address [facility] Co de Phone Number [facility]) * Hepatitis B Surface Ag (HBsAg) w/ Reflex Confirm (06/21/2021 8:50 AM CDT) Hepatitis B virus surface Ag, Serum/Plasma NON-REACTI VE NON-REACTI VE [facility] (ST) 06/21/2021 8:50 AM CDT 06/21/2021 8:54 AM CDT Narrative [facility] (STL) - 06/22/2021 2:14 PM CDT FASTING:NO PATIENT UNABLE TO VOID; ADVISED TO RETURN FOR COLLECTION. FASTING: NO Resulting Agency Comment Performing Organization Information: ?Site ID: [place] ?Name: [facility] ?Address: [address] [place] [address] ?Director: Javier Marquez D.O., MPH Raji Shook MD LAB BLOOD ORDERABLES [facility] (STL) * (ABNORMAL) CBC (includes Differential/Platelets) (06/21/2021 8:50 AM CDT) Leukocytes, Blood 7.9 3.8 - 10.8 Thousand/u L [facility] (STL) Erythrocytes (RBC) 3.36(L) 3.80 - 5.10 Million/uL [facility] - [facility] (STL) Hemoglobin (HGB) 9.9(L) 11.7 - 15.5 g/dL [facility] (STL) Hematocrit [...] [place] (STL) Basophils/100 leukocytes, Blood 0.9 % [facility] - [facility] (STL) 06/21/2021 8:50 AM CDT 06/21/2021 8:54 AM CDT Narrative [facility] . [facility] (ST) - 06/22/2021 2:14 PM CDT FASTING:NO PATIENT UNABLE TO VOID; ADVISED TO RETURN FOR COLLECTION. FASTING: NO Resulting Agency Comment Performing Organization Information: ?Site ID: [place] ?Name: [employer] ?Address: [address] [place] [address] [place] [address] ?Director: Javier Marquez D.O., MPH Raji Shook MD LAB BLOOD ORDERABLES [facility] (ST) * (ABNORMAL) Basic Metabolic Panel (BMP) (06/21/2021 8:50 AM CDT) [facility] Glucose, Serum/Plasma 137 65 - 139 mg/dL [facility] (STL) Comment: ? Non-fasting reference interval Urea nitrogen, Serum/Plasma (BUN) 36(H) 7 - 25 mg/dL [facility] (ST) Creatinine, Serum/Plasma 1.70(H) 0.50 - 1.05 mg/dL [facility] (STL) Comment: For patients >49 years of age, the reference limit for Creatinine is approximately 13% higher for people identified as -Kenyan. eGFR, non 32(L) > OR = 60 mL/min/1. 73m2 [facility] (STL) eGFR, 38(L) > OR = 60 mL/min/1. 73m2 [facility] (STL) Urea nitrogen/Creatinin e, Serum/Plasma 21 6 - 22 (calc) [facility] (STL) Sodium, Serum/Plasma 145 135 - 146 mmol/L [facility] (STL) Potassium, Serum/Plasma 4.6 3.5 - 5.3 mmol/L [facility] (STL) Chloride, Serum/Plasma 103 98 - 110 mmol/L [facility] (STL) Carbon dioxide CO2), total, Serum/Plasma 22 20 - 32 mmol/L [facility] (STL) Calcium, Serum/Plasma 8.7 8.6 - 10.4 mg/dL [facility] (STL) 06/21/2021 8:50 AM CDT 06/21/2021 8:54 AM CDT Narrative [facility] (STL) - 06/22/2021 2:14 PM CDT FASTING:NO PATIENT UNABLE TO VOID; ADVISED TO RETURN FOR COLLECTION. FASTING: NO Resulting Agency Comment Performing Organization Information: ?Site ID: [place] ?Name: [employer] ?Address: [address] [place] [address] ?Director: Javier Marquez D.O., MPH Raji Shook MD LAB BLOOD ORDERABLES [facility] (STL) documented in this encounter Visit Diagnoses Not on filedocumented in this encounter Care Teams Building Equipment Operator Relationship Specialty Start Date End Date Jonatan Worley MD [address] [place] [address] PCP - General 06/06/21 documented as of this encounter
--- OUTSIDE RECORDS SUMMARY | 2024-08-29 04:32 | XMS_ITS | Encounter Summary ---
Author Organization Isaac Physician Ilana utialmas Address [address] [place] [address] Phone Care Team Providers Care Concrete Craftsman Name Role Phone Jonatan Worley MD Primary Care Provider [phone] Reason for Visit * Reason Comments Med Refill Encounter Details Date Type Department Care Team (Late Contact Info) Description 03/15/2022 Refill [facility] [address] [address] Raji Shook MD [address] [address] Diabetes mellitus with renal manifestations, type II or unspecified type, uncontrolled ([facility]) Social History Tobacco [...] (Late Contact Info) Description 09/23/2024 3:40 PM TRAVELIFT OPERATOR Office Visit [facility] 5003 [facility] 1 [place] [address] Rosa Delgado NP 5003 [facility] 1 [place], [place] [id number] documented as of this encounter Visit Diagnoses Diagnosis Diabetes mellitus with renal manifestations, type II or unspecified type, uncontrolled ([facility]) Diabetes mellitus with renal manifestations, type II or unspecified type, uncontrolled documented in this encounter Care Teams Concrete Craftsman Relationship Specialty Start Date End Date Jonatan Worley MD [address] [place] [address] PCP - General 06/06/21 documented as of this encounter
--- OUTSIDE RECORDS SUMMARY | 2024-08-29 04:32 | XMS_ITS | Encounter Summary ---
Author Organization Isaac Physician Ilana utialmas Address [address] [place] [address] Phone Care Team Providers Care Endorsement Clerk Name Role Phone Jonatan Worley MD Primary Care Provider [phone] Reason for Visit * Reason Comments Med Refill Encounter Details Date Type Department Care Team (Late Contact Info) Description 02/10/2022 Refill [facility] [address] [address] Raji Shook MD [address] [address] Diabetes mellitus with renal manifestations, type II or unspecified type, uncontrolled ([facility]) Social History Tobacco [...] (Late Contact Info) Description 09/23/2024 3:40 PM POTATO GRADER Office Visit [facility] 5003 [facility] 1 [place] [address] Rosa Delgado NP [address] [id number] documented as of this encounter Visit Diagnoses Diagnosis Diabetes mellitus with renal manifestations, type II or unspecified type, uncontrolled ([facility]) Diabetes mellitus with renal manifestations, type II or unspecified type, uncontrolled documented in this encounter Care Teams Endorsement Clerk Relationship Specialty Start Date End Date Jonatan Worley MD [address] [place] [address] PCP - General 06/06/21 documented as of this encounter
--- OUTSIDE RECORDS SUMMARY | 2024-08-29 04:32 | XMS_ITS | Encounter Summary ---
Author Organization Isaac Physician Ilana utialmas Address [address] [place] [address] Phone Care Team Providers Care [employer] Partnerships Name Role Phone Jonatan Worley MD Primary Care Provider [phone] Encounter Details Date Type Department Care Team ([facility] Contact Info) Description 12/24/2021 Orders Only [facility] [address] [address] Raji Shook MD [address] [address] Social History Tobacco Use Types [...] (Late Contact Info) Description 09/23/2024 3:40 PM WASTE TRANSPORTATION TECHNICIAN Office Visit [facility] 5003 [facility] 1 [place] [address] Rosa Delgado NP [address] [address] documented as of this encounter [...] (STL) Microalbumin, Urine 176.9 See Note: mg/dL [facility] (STL) Comment: Reference Range: Reference Range Not established Verified by repeat analysis. Albumin/Creatinin e, Urine 4,114(H) <30 mcg/mg creat [facility] (STL) Comment: The ADA [...] Agency Comment Performing Organization Information: ?Site ID: [place] ?Name: [facility] ?Address: [address] [place] [address] ?Director: Javier Marquez D.O., MPH Raji Shook MD LAB URINE ORDERABLES [facility] ([facility]) * (ABNORMAL) Renal Function Panel (RFP) (12/24/2021 8:33 AM CDT) [facility] Glucose, Serum/Plasma 155(H) 65 - 99 mg/dL [facility] ([facility]) Comment: ? Fasting reference interval For someone without known diabetes, a glucose value >125 mg/dL indicates that they may have diabetes and this should be confirmed with a follow-up test. Urea nitrogen, Serum/Plasma (BUN) 33(H) 7 - 25 mg/dL [facility] ([facility]) Creatinine, Serum/Plasma 2.04(H) 0.50 - 0.99 mg/dL [facility]) Comment: For patients >49 years of age, the reference limit for Creatinine is approximately 13% higher for people identified as -Macanese. eGFR, non 26(L) > OR = 60 mL/min/1. 73m2 [facility] ([facility]) eGFR, 30(L) > OR = 60 mL/min/1. 73m2 [facility] (STL) Urea nitrogen/Creatinin e, Serum/Plasma 16 6 - 22 (calc) [facility] (ST[facility]) Sodium, Serum/Plasma 138 135 - 146 mmol/L [facility] (ST[facility]) Potassium, Serum/Plasma 5.3 3.5 - 5.3 mmol/L [facility] (STL) Chloride, Serum/Plasma 110 98 - 110 mmol/L [facility] (ST[facility]) Carbon dioxide CO2), total, Serum/Plasma 23 20 - 32 mmol/L [facility] (ST[facility]) Calcium, Serum/Plasma 8.9 8.6 - 10.4 mg/dL [facility] (STL) Phosphate, Serum/Plasma 5.7(H) 2.5 - 4.5 mg/dL [facility] (STL) Albumin, Serum/Plasma 3.4(L) 3.6 - 5.1 g/dL [facility] (STL) 12/24/2021 8:33 AM CDT 12/24/2021 8:35 AM CDT Narrative Resulting Agency Comment Performing Organization Information: ?Site ID: [place] ?Name: [employer] ?Address: [facility] [address] [place] [address] ?Director: Javier Marquez D.O., MPH Raji Shook MD LAB BLOOD ORDERABLES [facility] (STL) * PTH Intact and Calcium, Serum (12/24/2021 8:33 AM CDT) PTH, Intact, Serum/Plasma 55 16 - 77 pg/mL [facility] [employer] (STL) Comment: Interpretive [...] Agency Comment Performing Organization Information: ?Site ID: [place] ?Name: [facility] ?Address: [address] [place] [address] ?Director: Javier Marquez D.O., MPH Raji Shook MD LAB BLOOD ORDERABLES [facility] - [facility] (STL) * [...] Agency Comment Performing Organization Information: ?Site ID: [place] ?Name: [facility] ?Address: [address] [place] [address] ?Director: Javier Marquez D.O., MPH Raji Shook [...] Comment Performing Organization Information: ?Site ID: ?Name: [facility] ?Address: [facility] [place] [address] ?Director: Odalys Banugra Raji Shook MD LAB BLOOD ORDERABLES [facility] ([facility]L) documented in this encounter Visit Diagnoses Not on filedocumented in this encounter Care Teams [employer] Relationship Specialty Start Date End Date Jonatan Worley MD [address] [place] [address] PCP - General 06/06/21 documented as of this encounter
--- OUTSIDE RECORDS SUMMARY | 2024-08-29 04:32 | XMS_ITS | Encounter Summary ---
Author Organization Isaac Physician Ilana petersen Address [address] [place] [address] Phone Care Team Providers Care Building Trades Teacher Name Role Phone Jonatan Worley MD Primary Care Provider [phone] Reason for Visit * Reason Comments CKD Encounter Details Date Type Department Care Team (Late st Contact Info) Description 07/03/2021 10:00 AM SWITCHER Office Visit [facility] [address] [place] [address] Nasra Shook MD 5003 [facility] 1 [place] [address] Diabetes mellitus with renal manifestations, [...] Comments Blood Pressure 150/80 07/03/2021 11:06 AM SWITCHER Pulse 78 07/03/2021 10:31 AM SWITCHER Temperature - - Respiratory Rate - - Oxygen Saturation - - Inhaled Oxygen Concentration - - Weight 89.4 kg (197 lb) 07/03/2021 10:31 AM SWITCHER Height 172.7 cm (5' 8 ) 07/03/2021 10:31 AM SWITCHER Body Mass Index 29.95 07/03/2021 10:31 AM SWITCHER documented in this encounter Progress Notes * [...] or unspecified type, not stated as uncontrolled ([facility]) ??? Essential hypertension ??? Other and unspecified [...] day ??? ergocalciferol (VITAMIN D-2) 1.25 MG (26194 UT) capsule Take 50,000 Units by mouth [...] type II or unspecified type, uncontrolled ([facility]) Can expect progressive renal disease. Renal biopsy [...] Culture; Future Chronic kidney disease stage 3B ([facility]) At stage IIIb. Stable - PTH Intact [...] st Contact Info) Description 09/23/2024 3:40 PM SWITCHER Office Visit [facility] 5003 [facility] [place] [address] Rosa Delgado NP 5003 [facility] 1 [place] [address] Scheduled Orders Name Type Priority Associated Diagnoses Orde r Schedule Albumin/Creatinine Ratio, Random, Urine Lab Routine Diabetes mellitus with renal manifestations, type II or unspecified type, uncontrolled ([facility]) 1 Occurrences starting 07/03/2021 until 12/31/2021 Urinalysis, Complete, w/ Reflex to Culture Lab Routine Diabetes mellitus with renal manifestations, type II or unspecified type, uncontrolled ([facility]) 1 Occurrences starting 07/03/2021 until 12/31/2021 PTH Intact w/o Calcium, Serum Lab Routine Chronic kidney disease stage 3B ([facility]) Expected: 12/31/2021, Expires: 12/31/2021 Renal Function Panel (RFP) Lab Routine Chronic kidney disease stage 3B ([facility] Expected: 12/31/2021, Expires: 07/03/2022 CBC (includes Platelets / NO Differential) Lab Routine Chronic kidney disease stage 3B ([facility]) Expected: 12/31/2021, Expires: 12/31/2021 documented as of this encounter Visit Diagnoses Diagnosis Diabetes mellitus with renal manifestations, type II or unspecified type, uncontrolled ([facility] Primary Diabetes mellitus with renal manifestations, type II or unspecified type, uncontrolled Chronic kidney disease stage 3B ([facility]) Essential (primary) hypertension Atrophy of kidney documented in this encounter Care Teams Building Trades Teacher Relationship Specialty Start Date End Date Jonatan Worley MD [address] [place] [address] PCP - General 06/06/21 documented as of this encounter
--- OUTSIDE RECORDS SUMMARY | 2024-08-29 04:32 | XMS_ITS | Encounter Summary ---
Author Organization [facility]en Address [address] [place] [address] Phone Care Team Providers Care Computer Network And Systems Engineer Name Role Phone Jonatan Worley MD Primary Care Provider [phone] Reason for Visit * Reason Comments CKD Encounter Details Date Type Department Care Team (Late st Contact Info) Description 06/05/2021 1:00 PM CDT Office Visit [facility] [address] [address] Nasra Shook MD 5003 [facility] 1 [place] [address] Chronic kidney disease, not otherwise [...] day ??? ergocalciferol (VITAMIN D-2) 1.25 MG (58165 UT) capsule Take 50,000 Units by mouth [...] apnea, denies stroke, denies heart failure or UT. Ultrasound of the kidney done in the [...] Upcoming Encounters Date Type Department Care Team ([facility] st Contact Info) Description 09/23/2024 3:40 PM VIDEO GAMES MECHANIC Office Visit [facility] 5003 [facility], [facility] 1 [place] [address] Rosa Delgado NP 5003 [facility] 1 [place], [place] [phone] Scheduled Orders Name Type Priority Associated Diagnoses [...] hypertension documented in this encounter Care Teams Computer Network And Systems Engineer Relationship Specialty Start Date End Date Jonatan Worley MD [address] [place] [phone] PCP - General 06/06/21 documented as of this encounter
--- OUTSIDE RECORDS SUMMARY | 2024-08-29 04:32 | XMS_ITS | Encounter Summary ---
Author Organization [facility] Address [address] [address] Phone Care Team Providers Care Area Counselor Name Role Phone Unavailable Primary Care Provider Unavailabl e Reason for Visit * Reason Comments Proteinuria Encounter Details Date Type Department Care Team ([facility] Contact Info) Description 12/21/2020 1:20 PM CDT Office Visit [facility] 5[address] [facility] 1 [place], [place] [phone] Louis Medina MD [address] [address] Social History Tobacco Use Types [...] Upcoming Encounters Date Type Department Care Team ([facility] Contact Info) Description 09/23/2024 3:40 PM OBSTETRICIAN GYNECOLOGIST Office Visit [facility] 5[address] [facility] 1 [place] [address] Rosa Delgado, AMA [address] [phone] documented as of this encounter Visit Diagnoses Not on filedocumented in this encounter
--- OUTSIDE RECORDS SUMMARY | 2024-08-29 04:32 | XMS_ITS | Encounter Summary ---
Author Organization [facility] Address [address] [place] [address] Phone Care Team Providers Care Director Stage Name Role Phone Jonatan Worley MD Primary Care Provider [phone] Reason for Visit * Reason Comments CKD Encounter Details Date Type Department Care Team (Late st Contact Info) Description 01/01/2022 1:40 PM CDT Office Visit [facility] 2100 [facility], [facility] 206 [place] [address] Nasra Shook MD 5003 [facility] 1 [place] [address] Chronic kidney disease, Stage IV [...] or unspecified type, not stated as uncontrolled ([facility]) ??? Essential hypertension ??? History of [...] 1 ??? ergocalciferol (VITAMIN D-2) 1.25 MG (15269 UT) capsule Take 50,000 Units by mouth [...] visit: Chronic kidney disease, Stage IV (severe) ([facility]) Cannot use IAN or ARB's. Has history [...] manifestations, type II or unspecified type, uncontrolled ([facility]) See above discussion Essential (primary) hypertension See above discussion Please call with any questions. Follow-up appointment for 4 months 4 months NASRA SHOOK MD documented in this encounter Plan of Treatment Upcoming Encounters Date Type Department Care Team (Late st Contact Info) Description 09/23/2024 3:40 PM THERAPEUTIC ASSISTANT Office Visit [facility] 5003 [facility] 1 [place] [address] Rosa Delgado NP [address] [place] [phone] Scheduled Orders Name Type Priority Associated Diagnoses Orde r Schedule PTH Intact w/o Calcium, Serum Lab Routine Chronic kidney disease, Stage IV (severe) ([facility]) Expected: 07/04/2022, Expires: 07/04/2022 Renal Function Panel (RFP) Lab Routine Chronic kidney disease, Stage IV (severe) ([facility]) Expected: 07/04/2022, Expires: 01/01/2023 CBC (includes Platelets / NO Differential) Lab Routine Chronic kidney disease, Stage IV (severe) ([facility]) Expected: 07/04/2022, Expires: 07/04/2022 documented as of this encounter Visit Diagnoses Diagnosis Chronic kidney disease, Stage IV (severe) ([facility] Primary Chronic kidney disease, Stage IV (severe) Atrophy of kidney Diabetes mellitus with renal manifestations, type II or unspecified type, uncontrolled ([facility]) Diabetes mellitus with renal manifestations, type II or unspecified type, uncontrolled Essential (primary) hypertension documented in this encounter Care Teams Director Stage Relationship Specialty Start Date End Date Jonatan Worley MD [address] [place] [phone] PCP - General 06/06/21 documented as of this encounter
--- OUTSIDE RECORDS SUMMARY | 2024-08-29 04:32 | XMS_ITS | Encounter Summary ---
Author Organization [facility] Address [address] [place] [address] Phone Care Team Providers Care Cartridge Loading Operator Name Role Phone Jonatan Worley MD Primary Care Provider [phone] Reason for Visit * Reason Onset Date Comments Med Refill 12/07/2021 Encounter Details Date Type Department Care Team ([facility] Contact Info) Description 12/07/2021 Refill [facility] [address] [phone] Mirian Starkey MA Diabetes mellitus with renal manifestations, type II or unspecified type, uncontrolled ([facility]) Social History Tobacco Use Types [...] (Late Contact Info) Description 09/23/2024 3:40 PM ARMORED CAR GUARD Office Visit [facility] [address] [phone] Rosa Delgado NP [facility] [address] [phone] documented as of this encounter Visit Diagnoses Diagnosis Diabetes mellitus with renal manifestations, type II or unspecified type, uncontrolled ([facility]) Diabetes mellitus with renal manifestations, type II or unspecified type, uncontrolled documented in this encounter Care Teams Cartridge Loading Operator Relationship Specialty Start Date End Date Jonatan Worley MD [address] [place] [address] PCP - General 06/06/21 documented as of this encounter
--- OUTSIDE RECORDS SUMMARY | 2024-08-29 04:32 | XMS_ITS | Encounter Summary ---
Author Organization [facility] utialmas Address [address] [place] [address] Phone Care Team Providers Care Battery Engineer Name Role Phone Jonatan Worley MD Primary Care Provider [phone] Reason for Visit * Reason Comments Med Refill Encounter Details Date Type Department Care Team (Late st Contact Info) Description 11/02/2021 Refill [facility] [address] [phone] Raji Shook MD [address] [address] Diabetes mellitus with renal manifestations, type II or unspecified type, uncontrolled ([facility]) Social History Tobacco Use Types Packs/Day [...] st Contact Info) Description 09/23/2024 3:40 PM TRUST MANAGER Office Visit [facility] 5003 [facility] 1 [place] [address] Rosa Delgado NP 5003 [facility] 1 [place] [address] documented as of this encounter Visit Diagnoses Diagnosis Diabetes mellitus with renal manifestations, type II or unspecified type, uncontrolled ([facility]) Diabetes mellitus with renal manifestations, type II or unspecified type, uncontrolled documented in this encounter Care Teams Battery Engineer Relationship Specialty Start Date End Date Jonatan Worley MD [address] [place] [address] PCP - General 06/06/21 documented as of this encounter
--- OUTSIDE RECORDS SUMMARY | 2024-08-29 04:33 | XMS_ITS | Encounter Summary ---
Author Organization [facility] Address [address] [place] [address] Phone Care Team Providers Care Spray Cementer Name Role Phone Jonatan Worley Primary Care Provider Srinivasa Lee MD Unavailable [phone] Encounter Details Date Type Department Care Team (Late st Contact Info) Description 10/23/2023 2:00 PM BLANKMAKER Lab [facility] [address] [address] Lab, [facility] Anemia of unknown etiology; Hypogammaglobulinemia (HCC) Social [...] on file Legal Sex Female 11:51 AM BLANKMAKER Gender Identity Not on file Sexual Orientation Not on file documented as of this encounter Functional Status * Question Answer Date of Assessment Author Little interest or pleasure in doing things Not at all 10/23/2023 2:11 PM Jatin Khan CMA Feeling down, depressed, or hopeless Not at all 10/23/2023 2:11 PM BLANKMAKER Deyanira Napier CMA * Over the past 2 weeks, how often have you been bothered by any of the following problems? Question Answer Date of Assessment Author Patient Health Questionnaire-2 Score 0 10/23/2023 2:11 PM BLANKMAKER Tereza Napier CMA documented as of this encounter Plan of Treatment Upcoming Encounters Date Type Department Care Team (Late st Contact Info) Description 10/18/2024 1:30 PM BLANKMAKER Office Visit [facility] [address] [address] Srinivasa Lee MD [address] [place] [address] [place] [address] documented as of this encounter Procedures Procedure Name Priority Date/Time Associated Diagnosis Comments IRON W/ IRON BINDING CAPACITY OH Routine 10/23/2023 2:04 PM BLANKMAKER Anemia of unknown etiology Hypogammaglobuline ellen (HCC) CBC WITH AUTO DIFF OH Routine 10/23/2023 2:04 PM BLANKMAKER VITAMIN B12 Routine 10/23/2023 2:04 PM BLANKMAKER Anemia of unknown etiology Hypogammaglobuline ellen (HCC) RETICULOCYTE COUNT (RETIC) Routine 10/23/2023 2:04 PM BLANKMAKER Anemia of unknown etiology Hypogammaglobuline ellen (HCC) LACTATE DEHYDROGENASE (LD) Routine 10/23/2023 2:04 PM BLANKMAKER Anemia of unknown etiology Hypogammaglobuline ellen (HCC) FOLIC ACID (FOLATE) Routine 10/23/2023 2 :04 PM BLANKMAKER Anemia of unknown etiology Hypogammaglobuline ellen (HCC) FERRITIN Routine 10/23/2023 2:04 PM BLANKMAKER Anemia of unknown etiology Hypogammaglobuline ellen (HCC) CMP (COMPREHENSIVE METABOLIC PANEL) Routine 10/23/2023 2:04 PM BLANKMAKER Anemia of unknown etiology Hypogammaglobuline ellen (HCC) documented in this encounter Results * (ABNORMAL) CBC WITH AUTO DIFF OH (10/23/2023 2:04 PM BLANKMAKER) WBC 8.1 4.0 - 10.0 10*3/uL [facility] HGB 9.6(L) 11.2 - 15.7 g/dL [facility] HCT 29.6(L) 34.1 - 44.9 % [facility] PLT 166 163 - 369 10*3/uL [facility] MPV 10.7 9.4 - 12.4 fL [facility] RBC 3.23(L) 3.93 - 5.22 10*6/uL [facility] MCV 92 79 - 95 fL [facility] MCH 29.7 25.6 - 32.2 pg [facility] MCHC 32.4 32.2 - 36.5 g/dL [facility] RDW 13.2 11.6 - 14.4 % [facility] Neutrophils % 48.6 36.0 - 66.0 % [facility] Lymphocytes % 37.8 19.0 - 40.0 % [facility] Monocytes % 7.3 4.1 - 12.1 % [facility] Eosinophils % 5.5(H) 0.0 - 3.5 % [facility] Basophils % 0.6 0.0 - 1.0 % [facility] Absolute Neutrophils 4.0 1.4 - 6.6 10*3/uL [facility] Absolute Lymphocytes 3.1 0.8 - 4.0 10*3/uL [facility] Absolute Monocytes 0.6 0.2 - 1.2 10*3/uL [facility] Absolute Eosinophils 0.5(H) 0.0 - 0.4 10*3/uL [facility] Absolute Basophils 0.1 0.0 - 0.1 10*3/uL [facility] 10/23/2023 2:04 PM BLANKMAKER us Esther Oreilly APRN, CHERELLE LAB SEND OUTS F inal Result Performing Organization Address [facility]/ZIP Co de Phone Number [facility] [place] [address] [place] [address], * RETICULOCYTE COUNT (RETIC) (10/23/2023 2:04 PM BLANKMAKER) Reticulocyte count 1.63 0.50 - 1.70 % [facility] RET-He 33.30 28.20 - 36.60 pg [facility] Comment: RET-He is a direct assessment of incorporation of iron into erythrocyte hemoglobin. It provides an indirect measure of the iron available for new erythropoiesis over past 2-4 days. Blood 10/23/2023 2:04 PM BLANKMAKER Narrative [facility] - 10/23/2023 2:36 PM BLANKMAKER Release to patient->Immediate Esther Oreilly APRN, CHERELLE HEMATOLOGY ORDERA BLES Final Result Performing Organization Address [facility] Co de Phone Number [facility] [place] [address], * (ABNORMAL) CMP (COMPREHENSIVE METABOLIC PANEL) (10/23/2023 2:04 PM BLANKMAKER) Glucose 200(H) 70 - 105 mg/dL [facility] Blood Urea Nitrogen 54(H) 7 - 25 mg/dL [facility] Creatinine 2.8(H) 0.6 - 1.2 mg/dL [facility] Sodium 134(L) 136 - 145 mEq/L [facility] Potassium 5.3(H) 3.5 - 5.1 mEq/L [facility] Chloride 108(H) 98 - 107 mEq/L [facility] Bicarbonate 19(L) 21 - 31 mEq/L [facility] Total Bilirubin 0.4 0.3 - 1.0 mg/dL [facility] Alk. Phosphatase 61 34 - 104 U/L [facility] Aspartate Aminotransferase 18 13 - 39 U/L [facility] Alanine Aminotransferase 14 7 - 52 U/L [facility] Total Protein 5.7(L) 6.4 - 8.9 g/dL [facility] Albumin 3.4(L) 3.5 - 5.7 g/dL [facility] Calcium 8.3(L) 8.6 - 10.3 mg/dL [facility] Anion Gap 12.3 7.0 - 15.0 mEq/L [facility] Globulin 2.3 2.0 - 3.5 g/dL [facility] EGFR 19(L) >60 ml/min/1. 73m2 [facility] Comment: This eGFR is calculated using 2020 CKD-EPI Creatinine equation without race modifier based on the NKF-ASN task force recommendations Blood 10/23/2023 2:04 PM BLANKMAKER Narrative [facility] - 10/23/2023 2:46 PM BLANKMAKER Release to patient->Immediate IS THE PATIENT REQUIRED TO BE FASTING FOR 8 HOURS?->No Esther Oreilly SECONDARY SCHOOL TEACHER LIBRARIAN, CASTING ROOM HELPER CHEMISTRY ORDERAB LES Final Result Performing Organization Address City/[facility]/ZIP Co de Phone Number [facility] Cancer [address] [place] [address], [place] [phone] * LACTATE DEHYDROGENASE (LD) (10/23/2023 2:04 PM BLANKMAKER) LDH 158 140 - 271 U/L [facility] Blood 10/23/2023 2:04 PM BLANKMAKER Narrative [facility] - 10/23/2023 2:46 PM BLANKMAKER Release to patient->Immediate Esther Oreilly SECONDARY SCHOOL TEACHER LIBRARIAN, CASTING ROOM HELPER CHEMISTRY ORDERAB LES Final Result [facility] Cancer [address] [place] [address], [place] [phone] * (ABNORMAL) VITAMIN B12 (10/23/2023 2:04 PM BLANKMAKER) Vitamin B12 1,281(H) 180 - 914 pg/mL [facility] Blood 10/23/2023 2:04 PM BLANKMAKER Narrative [facility] - 10/24/2023 1:52 PM BLANKMAKER Release to patient->Immediate Esther Oreilly SECONDARY SCHOOL TEACHER LIBRARIAN, CASTING ROOM HELPER CHEMISTRY ORDERAB LES Final Result Performing Organization Address City/[facility]/ZIP Co de Phone Number [facility] [address] [place] [address], * FOLIC ACID (FOLATE) (10/23/2023 2:04 PM BLANKMAKER) Folate 12.59 >=5.90 ng/mL [facility] Blood 10/23/2023 2:04 PM BLANKMAKER [facility] - 10/24/2023 1:52 PM BLANKMAKER Release to patient->Immediate IS THE PATIENT REQUIRED TO BE FASTING FOR 12 HOURS?->No Esther Oreilly APRN, CASTING ROOM HELPER CHEMISTRY ORDERAB LES Final Result Performing Organization Address City/[facility]/ZIP Co de Phone Number [facility] Cancer Care [address] [place] [address], [place] [phone] * FERRITIN (10/23/2023 2:04 PM BLANKMAKER) Ferritin 82 11 - 307 ng/mL [facility] Blood 10/23/2023 2:04 PM BLANKMAKER [facility] - 10/24/2023 1:52 PM BLANKMAKER Release to patient->Immediate Esther Oreilly SECONDARY SCHOOL TEACHER LIBRARIAN, CASTING ROOM HELPER CHEMISTRY ORDERAB LES Final Result [facility] [address] [place] [address], * (ABNORMAL) IRON W/ IRON BINDING CAPACITY [place] (10/23/2023 2:04 PM BLANKMAKER) IRON 58 50 - 212 ug/dL [facility] UIBC 186 155 - 355 ug/dL [facility] TIBC 244(L) 261 - 478 ug/dl [facility] % Saturation 24 20 - 50 % [facility] 10/23/2023 2:04 PM BLANKMAKER Narrative [facility] - 10/23/2023 2:46 PM BLANKMAKER Release to patient->Immediate Esther Oreilly APRN, CASTING ROOM HELPER LAB SEND OUTS F inal Result [facility] Cancer Care [facility] [address] [place] [address], [place] [phone] documented in this encounter Visit Diagnoses Diagnosis Anemia of unknown etiology Anemia, unspecified Hypogammaglobulinemia (HCC) Hypogammaglobulinaemia, unspecified documented in this encounter Additional Health Concerns Assessment Noted Time PHQ-9 Depression Total Score: 0 03/08/20 21 11:06 AM CDT documented as of this encounter Care Teams Spray Cementer Relationship Specialty Start Date End Date Jonatan Worley [address] [place] [address] PCP - General Family Medicine 07/12/20 Srinivasa Lee MD [address] [place] [phone] Consulting Physician Oncology 07/12/20 documented as of this encounter
--- OUTSIDE RECORDS SUMMARY | 2024-08-29 04:33 | XMS_ITS | Clinical Summary ---
Author Organization [facility] Address [address] [place] [address]. [place], [place] [phone] [place] [address] Care Team Providers Care Filter Press Pumper Name Role Phone Unavailable Primary Care Provider [...]
--- OUTSIDE RECORDS SUMMARY | 2024-08-29 04:33 | XMS_ITS | Encounter Summary ---
Author Organization [facility] Address [address] [place] [address] Phone Care Team Providers Care Ground Operations Supervisor Name Role Phone Jonatan Worley Primary Care Provider Srinivasa Lee MD Unavailable [phone] Encounter Details Date Type Department Care Team (Latest Contact Info) Description 02/19/2024 2:20 PM CDT Lab [facility] [address] [address] Lab, Cc [facility] Hypogammaglobulinemia (HCC); Anemia in stage 3b chronic [...] on file Legal Sex Female 11:51 AM USED CAR SALES SUPERVISOR Gender Identity Not on file Sexual [...] st Contact Info) Description 10/18/2024 1:30 PM USED CAR SALES SUPERVISOR Office Visit [facility] [address] [address] Srinivasa Lee MD [address] [facility] [address] [place] [address] documented as of this encounter Procedures [...] CHAINS 142.2(H) 2.9 - 20.7 mg/L [facility] FREE LAMBDA LT CHAINS 132.2(H) 4.2 - 27.6 mg/L [facility] KAPPA/LAMBDA RATIO 1.08 0.22 - 1.74 [facility] 02/19/2024 2:23 PM CDT us Rosalina Vázquez GUM MACHINE OPERATOR, AGRONOMY INTERNSHIP LAB SEND OUTS Fin al Result [facility] [address] [place] [address], * IMMUNOFIXATION, SERUM [place] (02/19/2024 2:23 PM CDT) IMMUNOFIXATION RESULT, SERUM COMMENT: [facility] Comment: PRESENCE OF MONOCLONAL PROTEIN IS UNCLEAR AT THIS TIME. SUGGEST REPEAT IN 3 TO 6 MONTHS IF CLINICALLY INDICATED. 02/19/2024 2:23 PM CDT Narrative [facility] - 02/20/2024 3:09 PM CDT TESTING PERFORMED AT: [] [facility], [address] [place] [address], [place], [address], PHONE: [phone], REGISTERED MASSAGE THERAPIST: PEGGY MARCUS, PHD Release to patient->Immediate Rosalina Vázquez APRN, AGRONOMY INTERNSHIP LAB SEND OUTS Fin al Result [facility] [address] [place] [address], [place] [phone] * (ABNORMAL) ELECTROPHORESIS W/ TOTAL PROTEIN SERUM (02/19/2024 2:23 PM CDT) Pathologist [facility] PROTEIN, TOTAL, SERUM 5.7(L) 6.0 - 8.5 G/DL [facility] ALBUMIN 3.0 2.9 - 4.4 G/DL [facility] [id number] 0.3 0.0 - 0.4 G/DL [facility] [id number]-9-[id number] 0.7 0.4 - 1.0 G/DL [facility] BETA GLOBULIN 0.7 0.7 - 1.3 G/DL [facility] GAMMA GLOBULIN 1.1 0.4 - 1.8 G/DL [facility] M-SPIKE NOT OBSERVED NOT OBSERVED G/DL [facility] GLOBULIN, TOTAL 2.7 2.2 - 3.9 G/DL [facility] A/G RATIO 1.1 0.7 - 1.7 [facility] PLEASE NOTE: COMMENT [facility] Comment: PROTEIN ELECTROPHORESIS SCAN WILL FOLLOW VIA COMPUTER, MAIL, OR ELECTRONIC REPAIR TROUBLESHOOTER DELIVERY. PDF . [facility] Blood 02/19/2024 2:23 PM CDT [place] [facility] - 02/20/2024 1:09 PM CDT TESTING PERFORMED AT: [] [address], [place], [address], PHONE: [phone], REGISTERED MASSAGE THERAPIST: PEGGY MARCUS, PHD Release to patient->Immediate Rosalina Vázquez APRN, AGRONOMY INTERNSHIP CHEMISTRY ORDERABLE S Final Result Performing Organization Address [facility] de Phone Number [facility] [place] [address], [place] [phone] * (ABNORMAL) RETICULOCYTE COUNT (RETIC) (02/19/2024 2:23 PM CDT) Reticulocyte count 2.09(H) 0.50 - 1.70 % [facility] RET-He 32.70 28.20 - 36.60 pg [facility] Comment: RET-He is a direct assessment of incorporation of iron into erythrocyte hemoglobin. It provides an indirect measure of the iron available for new erythropoiesis over past 2-4 days. Blood 02/19/2024 2:23 PM CDT Narrative [facility] - 02/19/2024 2:33 PM CDT Release to patient->Immediate Rosalina Vázquez APRN, AGRONOMY INTERNSHIP HEMATOLOGY ORDERABL ES Final Result Performing Organization Address [facility] Co de Phone Number [facility] [place] [address], [place] [phone] * (ABNORMAL) IRON W/ IRON BINDING CAPACITY [place] (02/19/2024 2:23 PM CDT) IRON 49(L) 50 - 212 ug/dL [facility] UIBC 190 155 - 355 ug/dL [facility] TIBC 239(L) 261 - 478 ug/dl [facility] % Saturation 21 20 - 50 % [facility] 02/19/2024 2:23 PM CDT Narrative [facility] - 02/19/2024 3:17 PM CDT Release to patient->Immediate us Rosalina Vázquez APRN, AGRONOMY INTERNSHIP LAB SEND OUTS Fin al Result [facility] [address] [place] [address], [place] [phone] * FERRITIN (02/19/2024 2:23 PM CDT) Ferritin 67 11 - 307 ng/mL [facility] Blood 02/19/2024 2:23 PM CDT Narrative [facility] - 02/20/2024 3:26 PM CDT Release to patient->Immediate us Rosalina Vázquez APRN, AGRONOMY INTERNSHIP CHEMISTRY ORDERABLE S Final Result Performing Organization Address [facility] de Phone Number [facility] [address] [place] [address], [place] [phone] * FOLIC ACID (FOLATE) (02/19/2024 2:23 PM CDT) Folate 12.98 >=5.90 ng/mL [facility] Blood 02/19/2024 2:23 PM CDT [facility] - 02/20/2024 3:26 PM CDT Release to patient->Immediate IS THE PATIENT REQUIRED TO BE FASTING FOR 12 HOURS?->No us Rosalina Vázquez APRN, AGRONOMY INTERNSHIP CHEMISTRY ORDERABLE S Final Result [facility] [address] [place] [address], [place] [phone] * (ABNORMAL) VITAMIN B12 (02/19/2024 2:23 PM CDT) Vitamin B12 1,381(H) 180 - 914 pg/mL [facility] Blood 02/19/2024 2:23 PM CDT Narrative [facility] - 02/20/2024 3:26 PM CDT Release to patient->Immediate us Rosalina Vázquez APRN, AGRONOMY INTERNSHIP CHEMISTRY ORDERABLE S Final Result Performing Organization Address [facility] Co de Phone Number [facility] [address] [address], [place] [phone] * LACTATE DEHYDROGENASE (LD) (02/19/2024 2:23 PM CDT) LDH 157 140 - 271 U/L [facility] Blood 02/19/2024 2:23 PM CDT Narrative [facility] - 02/19/2024 3:17 PM CDT Release to patient->Immediate Rosalina Vázquez APRN, AGRONOMY INTERNSHIP CHEMISTRY ORDERABLE S Final Result Performing Organization Address [facility] Co de Phone Number [facility] [address] [address], [place] [phone] * (ABNORMAL) CMP (COMPREHENSIVE METABOLIC PANEL) (02/19/2024 2:23 PM CDT) Glucose 245(H) 70 - 105 mg/dL [facility] Blood Urea Nitrogen 45(H) 7 - 25 mg/dL [facility] Creatinine 3.2(H) 0.6 - 1.2 mg/dL [facility] Sodium 136 136 - 145 mEq/L [facility] [place] Potassium 5.2(H) 3.5 - 5.1 mEq/L [facility] Chloride 105 98 - 107 mEq/L [facility] Bicarbonate 23 21 - 31 mEq/L [facility] Total Bilirubin 0.5 0.3 - 1.0 mg/dL [facility] Alk. Phosphatase 53 34 - 104 U/L [facility] Aspartate Aminotransferase 18 13 - 39 U/L [facility] Alanine Aminotransferase 10 7 - 52 U/L [facility] Total Protein 5.8(L) 6.4 - 8.9 g/dL [facility] Albumin 3.4(L) 3.5 - 5.7 g/dL [facility] Calcium 8.6 8.6 - 10.3 mg/dL [facility] Anion Gap 13.2 7.0 - 15.0 mEq/L [facility] Globulin 2.4 2.0 - 3.5 g/dL [facility] EGFR 16(L) >60 ml/min/1. 73m2 [facility] Comment: This eGFR is calculated using 2020 CKD-EPI Creatinine equation without race modifier based on the NKF-ASN task force recommendations Blood 02/19/2024 2:23 PM CDT Narrative [facility] - 02/19/2024 3:17 PM CDT Release to patient->Immediate IS THE PATIENT REQUIRED TO BE FASTING FOR 8 HOURS?->No us Rosalina Vázquez GUM MACHINE OPERATOR, AGRONOMY INTERNSHIP CHEMISTRY ORDERABLE S Final Result [facility] [address] [place] [address], * (ABNORMAL) COMPLETE BLOOD COUNT (CBC) WITH DIFF (02/19/2024 2:23 PM CDT) WBC 5.3 4.0 - 10.0 10*3/uL [facility] HGB 9.6(L) 11.2 - 15.7 g/dL [facility] HCT 29.9(L) 34.1 - 44.9 % [facility] PLT 160(L) 163 - 369 10*3/uL [facility] MPV 10.3 9.4 - 12.4 fL [facility] RBC 3.21(L) 3.93 - 5.22 10*6/uL [facility] MCV 93 79 - 95 fL [facility] MCH 29.9 25.6 - 32.2 pg [facility] MCHC 32.1(L) 32.2 - 36.5 g/dL [facility] RDW 12.5 11.6 - 14.4 % [facility] Absolute Neutrophil Count 3,192 cells/uL [facility] Absolute Seg Count 3,192 1,440 - 6,600 cells/uL [facility] Absolute Lymph Count 1,330 760 - 4,000 cells/uL [facility] Absolute [place] Count 426 160 - 1,200 cells/uL [facility] Absolute Eos Count 372(H) 0 - 300 cells/uL [facility] Segmented Neutrophils 60 36 - 66 % [facility] Lymphocytes 25 19 - 40 % [facility] C [facility]TER [facility] Monocytes 8 4 - 12 % [facility] Eosinophils 7(H) 0 - 3 % [facility] WBC Estimate Normal [facility] Platelet Estimate Low [facility] RBC Morphology Normal [facility] Blood 02/19/2024 2:23 PM CDT Narrative [facility] - 02/19/2024 3:35 PM CDT Release to patient->Immediate us Rosalina Vázquez GUM MACHINE OPERATOR, AGRONOMY INTERNSHIP HEMATOLOGY ORDERABL ES Final Result [facility] [place] [address], * (ABNORMAL) IMMUNOGLOBULIN IGA, IGG & IGM QUANT (02/19/2024 2:23 PM CDT) IGG 997 635 - 1,741 mg/dL [facility] IGA 196 66 - 433 mg/dL [facility] IGM 312(H) 45 - 281 mg/dL [facility] Blood 02/19/2024 2:23 PM CDT Narrative [facility] - 02/20/2024 4:01 PM CDT Release to patient->Immediate us Rosalina Vázquez GUM MACHINE OPERATOR, AGRONOMY INTERNSHIP CHEMISTRY ORDERABLE S Final Result [facility] [place] [address], documented in this encounter Visit Diagnoses Diagnosis Hypogammaglobulinemia (HCC) Hypogammaglobulinaemia, unspecified 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) Iron deficiency Other disorders of iron metabolism documented in this encounter Additional Health Concerns Assessment Noted Time PHQ-9 Depression Total Score: 0 03/08/20 21 11:06 AM CDT documented as of this encounter Care Teams Ground Operations Supervisor Relationship Specialty Start Date End Date Jonatan Worley [address] [place] [address] PCP - General Family Medicine 07/12/20 Srinivasa Lee MD [address] [place] [address] Consulting Physician Oncology 07/12/20 documented as of this encounter
--- OUTSIDE RECORDS SUMMARY | 2024-08-29 04:33 | XMS_ITS | Encounter Summary ---
Author Organization [email or web address] Care Team Providers Care Grinding Room Supervisor Name Role Phone Jonatan Worley Primary Care Provider [phone] Srinivasa Lee MD Unavailable [phone] Encounter Details Date Type Department Care Team [...] on file Legal Sex Female 11:51 AM SCADA OPERATOR Gender Identity Not on file Sexual [...] st Contact Info) Description 10/18/2024 1:30 PM SCADA OPERATOR Office Visit [facility] [place] [address] [place] [phone] Srinivasa Lee MD [address] [facility] [address] [place] [address] documented as of this encounter Visit Diagnoses Not on filedocumented in this encounter Additional Health Concerns Assessment Noted Time PHQ-9 Depression Total Score: 0 03/08/20 21 11:06 AM CDT documented as of this encounter Care Teams Grinding Room Supervisor Relationship Specialty Start Date End Date Jonatan Worley [address] [place] [address] PCP - General Family Medicine 07/12/20 Srinivasa Lee MD [address] [place] [address] Consulting Physician Oncology 07/12/20 documented as of this encounter
--- OUTSIDE RECORDS SUMMARY | 2024-08-29 04:33 | XMS_ITS | Encounter Summary ---
Author Organization [facility] Address [address] [place] [address] Phone Care Team Providers Care Test Tech Name Role Phone Jonatan Worley Primary Care Provider Srinivasa Lee MD Unavailable [phone] Encounter Details Date Type Department Care Team (Late st Contact Info) Description 12/06/2022 Telephone [facility] [place] [address] [place] [address] Srinivasa Lee MD [facility] [address] [address] Social History Tobacco Use Types [...] file Legal Sex Female 11:51 AM SUPERVISOR NUCLEAR MEDICINE Gender Identity Not on file Sexual Orientation [...] Contact Info) Description 10/18/2024 1:30 PM SUPERVISOR NUCLEAR MEDICINE Office Visit [facility] [address] [address] Srinivasa Lee MD [address] [place] [address] [place] [address] documented as of this encounter Visit Diagnoses Not on filedocumented in this encounter Additional Health Concerns Assessment Noted Time PHQ-9 Depression Total Score: 0 07/15/20 21 11:06 AM CDT documented as of this encounter Care Teams Test Tech Relationship Specialty Start Date End Date Jonatan Worley [address] [place] [address] PCP - General Family Medicine 07/12/20 Srinivasa Lee MD [address] [place] [phone] Consulting Physician Oncology 07/12/20 documented as of this encounter
--- OUTSIDE RECORDS SUMMARY | 2024-08-29 04:33 | XMS_ITS | Encounter Summary ---
Author Organization [facility] Address [address] [place] [address] Phone Care Team Providers Care Animal Impersonator Name Role Phone Jonatan Worley Primary Care Provider Srinivasa Lee MD Unavailable Reason for Visit * Reason Comments Follow-up Encounter Details Date Type Department Care Team (Latest Contact Info) Description 10/23/2023 2:15 PM WALLPAPERER Office Visit [facility] [address] [address] Srinivasa Lee MD [address] [address] Hypogammaglobulinemia (HCC) (Primary Dx); Anemia [...] on file Legal Sex Female 11:51 AM WALLPAPERER Gender Identity Not on file Sexual Orientation Not on file documented as of this encounter Last Filed Vital Signs Vital Sign Reading Time Taken Comments Blood Pressure 136/82 10/23/2023 2:11 PM WALLPAPERER Pulse 72 10/23/2023 2:11 PM WALLPAPERER Temperature 36.6 ??C (97.8 ??F) 10/23/2023 2:11 PM CS T Respiratory Rate 18 10/23/2023 2:11 PM WALLPAPERER Oxygen Saturation 99% 10/23/2023 2:11 PM WALLPAPERER Inhaled Oxygen Concentration - - Weight 103.5 kg (228 lb 3.2 oz) 10/23/2023 2:11 PM WALLPAPERER Height 170.2 cm (5' 7 ) 10/23/2023 2:11 PM WALLPAPERER Body Mass Index 35.74 10/23/2023 2:11 PM WALLPAPERER documented in this encounter Functional Status * Question Answer Date of Assessment Author Little interest or pleasure in doing things Not at all 10/23/2023 2:11 PM WALLPAPERER Jatin Napier CMA Feeling down, depressed, or hopeless Not at all 10/23/2023 2:11 PM WALLPAPERER Deyanira Napier CMA * Over the past 2 weeks, how often have you been bothered by any of the following problems? Question Answer Date of Assessment Author Patient Health Questionnaire-2 Score 0 10/23/2023 2:11 PM WALLPAPERER Tereza Napier CMA documented as of this encounter Progress Notes * Srinivasa Lee MD - 10/23/2023 2:15 PM CST Images from the original note were not included. Patient: Arely Ernandez Age: 62 y.o. : 1960 [facility] En[facility] Date: 10/23/2023 Care Team: Current Providers [...] 4 TIMES DAILY ??? ergocalciferol (VITAMIN D) 43310 UNIT Capsule ??? ferrous sulfate 325 (65 [...] Component Date Value Ref Range Status ??? [id number] 06/12/2023 11.54 (H) 0.97 - 1.84 mg/L [...] 3.1 2.9 - 4.4 G/DL Final ??? [id number] 06/12/2023 0.3 0.0 - 0.4 G/DL Final ??? [id number] 06/12/2023 0.9 0.4 - 1.0 G/DL Final [...] SCAN WILL FOLLOW VIA COMPUTER, MAIL, OR TELECOM ASSISTANT DELIVERY. ??? PDF 06/12/2023 . Final ??? [...] 760 - 4,000 cells/uL Final ??? Absolute [place] Count 06/12/2023 586 160 - 1,200 cells/uL [...] Final ??? RBC Morphology 06/12/2023 Normal Final PAPERER PAPERER documented in this encounter Plan of Treatment Upcoming Encounters Date Type Department Care Team (Late st Contact Info) Description 10/18/2024 1:30 PM WALLPAPERER Office Visit [facility] [address] [phone] Srinivasa Lee MD [facility] [place] [address] documented as of this encounter Visit Diagnoses Diagnosis Hypogammaglobulinemia (HCC)- Primary Hypogammaglobulinaemia, unspecified 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) documented in this encounter Additional Health Concerns Assessment Noted Time PHQ-9 Depression Total Score: 0 03/08/20 21 11:06 AM CDT documented as of this encounter Care Teams Animal Impersonator Relationship Specialty Start Date End Date Jonatan Worley [address] [facility] [place] [address] PCP - General Family Medicine 07/12/20 Srinivasa Lee MD [address] [place] [address] Consulting Physician Oncology 07/12/20 documented as of this encounter
--- OUTSIDE RECORDS SUMMARY | 2024-08-29 04:33 | XMS_ITS | Encounter Summary ---
Author Organization [facility] Address [address] [place] [address] Phone Care Team Providers Care Service Porter Name Role Phone Jonatan Worley Primary Care Provider Srinivasa Lee MD Unavailable [phone] Encounter Details Date Type Department Care Team (Latest Contact Info) Description 06/17/2024 2:40 PM CDT Lab [facility] [address] [address] Lab, [facility] Hypogammaglobulinemia (HCC); Anemia in stage 3b chronic [...] on file Legal Sex Female 11:51 AM DRAIN CLEANER Gender Identity Not on file Sexual Orientation [...] st Contact Info) Description 10/18/2024 1:30 PM DRAIN CLEANER Office Visit [facility] [address] [address] Srinivasa Lee MD [address] [place] [address] [place] [address] documented as of this encounter Procedures [...] WBC 6.5 4.0 - 10.0 10*3/uL [facility] HGB 9.4(L) 11.2 - 15.7 g/dL [facility] MINE ADMINISTR[facility] HCT 30.2(L) 34.1 - 44.9 % [facility] ADMINISTR[facility] PLT 177 163 - 369 10*3/uL [facility] MPV 9.2(L) 9.4 - 12.4 fL [facility]INE ADMINISTR[facility] RBC 3.40(L) 3.93 - 5.22 10*6/uL [facility] MINE ADMINISTR[facility] MCV 89 79 - 95 fL [facility] MINE ADMINISTR[facility] MCH 27.6 25.6 - 32.2 pg [facility] ADMINISTR[facility] MCHC 31.1(L) 32.2 - 36.5 g/dL [facility] RDW 15.4(H) 11.6 - 14.4 % [facility] Neutrophils % 72.1(H) 36.0 - 66.0 % [facility] Lymphocytes % 17.4(L) 19.0 - 40.0 % [facility] Monocytes % 6.2 4.1 - 12.1 % [facility] MINE ADMINISTRATOR [facility] Eosinophils % 3.2 0.0 - 3.5 % [facility] Basophils % 0.5 0.0 - 1.0 % [facility] Absolute Neutrophils 4.7 1.4 - 6.6 10*3/uL [facility] Absolute Lymphocytes 1.1 0.8 - 4.0 10*3/uL [facility] Absolute Monocytes 0.4 0.2 - 1.2 10*3/uL [facility] Absolute Eosinophils 0.2 0.0 - 0.4 10*3/uL [facility] Absolute Basophils 0.0 0.0 - 0.1 10*3/uL [facility] 06/17/2024 2:52 PM CDT Esther Oreilly APRN, SUPERINTENDENT STATIONS LAB SEND OUTS F inal Result [facility] MINE ADMINISTR[facility] [place] [address], * (ABNORMAL) CMP (COMPREHENSIVE METABOLIC PANEL) (06/17/2024 2:52 PM CDT) Glucose 227(H) 70 - 105 mg/dL [facility] Blood Urea Nitrogen 35(H) 7 - 25 mg/dL [facility] Creatinine 2.5(H) 0.6 - 1.2 mg/dL [facility] Sodium 134(L) 136 - 145 mEq/L [facility] Potassium 4.9 3.5 - 5.1 mEq/L [facility] Chloride 103 98 - 107 mEq/L [facility] Bicarbonate 20(L) 21 - 31 mEq/L [facility] Total Bilirubin 0.5 0.3 - 1.0 mg/dL [facility] MINE ADMINISTR[facility] Alk. Phosphatase 77 34 - 104 U/L [facility] Aspartate Aminotransferase 17 13 - 39 U/L [facility] Alanine Aminotransferase 8 7 - 52 U/L [facility] Total Protein 6.2(L) 6.4 - 8.9 g/dL [facility] Albumin 3.1(L) 3.5 - 5.7 g/dL [facility] Calcium 8.6 8.6 - 10.3 mg/dL [facility] Anion Gap 15.9(H) 7.0 - 15.0 mEq/L [facility] Globulin 3.1 2.0 - 3.5 g/dL [facility] EGFR 21(L) >60 ml/min/1. 73m2 [facility] MINE ADMINISTRATOR [facility] Comment: This eGFR is calculated using 2020 CKD-EPI Creatinine equation without race modifier based on the NKF-ASN task force recommendations Blood 06/17/2024 2:52 PM CDT [facility] - 06/17/2024 3:35 PM CDT Release to patient->Immediate IS THE PATIENT REQUIRED TO BE FASTING FOR 8 HOURS?->No Esther Oreilly APRN, SUPERINTENDENT STATIONS CHEMISTRY ORDERAB LES Final Result [facility] ADMINISTR[facility] [place] [address], * LACTATE DEHYDROGENASE (LD) (06/17/2024 2:52 PM CDT) LDH 183 140 - 271 U/L [facility] MINE ADMINISTR[facility] Blood 06/17/2024 2:[address] [facility] - 06/17/2024 3:35 PM CDT Release to patient->Immediate Esther Oreilly GREY STOCK RECORDER, SUPERINTENDENT STATIONS CHEMISTRY ORDERAB LES Final Result [facility] [address] [place] [address], * (ABNORMAL) VITAMIN B12 (06/17/2024 2:52 PM CDT) Vitamin B12 1,009(H) 180 - 914 pg/mL [facility] Blood 06/17/2024 2:52 PM CDT Narrative [facility] - 06/21/2024 7:57 AM CDT Release to patient->Immediate Esther Oreilly GREY STOCK RECORDER, SUPERINTENDENT STATIONS CHEMISTRY ORDERAB LES Final Result Performing Organization Address [facility]/ZIP Co de Phone Number [facility]MINIST[facility] [address] [place] [address], * FOLIC ACID (FOLATE) (06/17/2024 2:52 PM CDT) Folate 8.45 >=5.90 ng/mL [facility] Blood 06/17/2024 2:52 PM CDT [facility] - 06/21/2024 7:57 AM CDT Release to patient->Immediate IS THE PATIENT REQUIRED TO BE FASTING FOR 12 HOURS?->No Esther Oreilly GREY STOCK RECORDER, SUPERINTENDENT STATIONS CHEMISTRY ORDERAB LES Final Result [facility] [address] [place] [address], * FERRITIN (06/17/2024 2:52 PM CDT) Ferritin 126 11 - 307 ng/mL [facility] Blood 06/17/2024 2:52 PM CDT [facility]IST[facility] - 06/21/2024 7:57 AM CDT Release to patient->Immediate Esther Oreilly APRN, CNP CHEMISTRY ORDERAB LES Final Result Performing Organization Address [facility] Co de Phone Number CANCER MINE ADMINISTRATOR [facility] [address] [place] [address], * (ABNORMAL) IRON W/ IRON BINDING CAPACITY [place] (06/17/2024 2:52 PM CDT) IRON 25(L) 50 - 212 ug/dL [facility] MINE ADMINISTRATOR [facility] UIBC 194 155 - 355 ug/dL [facility] TIBC 219(L) 261 - 478 ug/dl [facility] MINE ADMINISTRATOR [facility] % Saturation 11(L) 20 - 50 % [facility] ADMINISTR[facility] 06/17/2024 2:52 PM CDT [facility]MINISTR[facility] - 06/17/2024 3:35 PM CDT Release to patient->Immediate Esther Oreilly APRN, CNP LAB SEND OUTS F inal Result Performing Organization Address [facility]/ZIP Co de Phone Number [facility]IST[facility] [place] [address], * RETICULOCYTE COUNT (RETIC) (06/17/2024 2:52 PM CDT) Reticulocyte count 1.70 0.50 - 1.70 % [facility]IST[facility] RET-He 29.80 28.20 - 36.60 pg [facility] ADMINISTR[facility] Comment: RET-He is a direct assessment of incorporation of iron into erythrocyte hemoglobin. It provides an indirect measure of the iron available for new erythropoiesis over past 2-4 days. Blood 06/17/2024 2:52 PM CDT [facility] M[facility] ADMINISTR[facility] - 06/17/2024 3:03 PM CDT Release to patient->Immediate Esther Oreilly APRN, SUPERINTENDENT STATIONS HEMATOLOGY ORDERA BLES Final Result [facility] MINE ADMINISTRATOR [facility] [place] [address] [place] [address], [place] [phone] * (ABNORMAL) IMMUNOGLOBULIN IGA, IGG & IGM QUANT (06/17/2024 2:52 PM CDT) IGG 1,383 635 - 1,741 mg/dL [facility] MINE ADMINISTRATOR [facility] IGA 217 66 - 433 mg/dL [facility] IGM 462(H) 45 - 281 mg/dL [facility] MINE ADMINISTRATOR [facility] Blood 06/17/2024 2:52 PM CDT Narrative [facility] MINE ADMINISTRATOR [facility] - 06/18/2024 1:11 PM CDT Release to patient->Immediate Esther Oreilly APRN, SUPERINTENDENT STATIONS CHEMISTRY ORDERAB LES Final Result Performing Organization Address City/[facility]/ZIP Co de Phone Number CANCER MINE ADMINISTRATOR [facility] [address] [place] [address], [place] [phone] * (ABNORMAL) ELECTROPHORESIS W/ TOTAL PROTEIN SERUM (06/17/2024 2:52 PM CDT) PROTEIN, TOTAL, SERUM 6.1 6.0 - 8.5 G/DL [facility] M[facility] ADMINISTR[facility] ALBUMIN 2.7(L) 2.9 - 4.4 G/DL [facility] MINE ADMINISTRATOR [facility] KLUFC-5-BFFMYFUX 0.3 0.0 - 0.4 G/DL [facility] MINE ADMINISTRATOR [facility] VRFEY-5-UOSUSBWD 0.8 0.4 - 1.0 G/DL [facility] MINE ADMINISTRATOR [facility] BETA GLOBULIN 0.8 0.7 - 1.3 G/DL [facility] MINE ADMINISTRATOR [facility] GAMMA GLOBULIN 1.5 0.4 - 1.8 G/DL [facility] MINE ADMINISTRATOR [facility] M-SPIKE NOT OBSERVED NOT OBSERVED G/DL [facility] MINE ADMINISTR[facility] GLOBULIN, TOTAL 3.4 2.2 - 3.9 G/DL [facility] A/G RATIO 0.8 0.7 - 1.7 [facility] PLEASE NOTE: COMMENT [facility] MINE ADMINISTRATOR [facility] Comment: PROTEIN ELECTROPHORESIS SCAN WILL FOLLOW VIA COMPUTER, MAIL, OR AUTOMATIC DISPENSER MECHANIC DELIVERY. PDF . [facility] Blood 06/17/2024 2:[address] [facility] - 06/18/2024 3:10 PM CDT TESTING PERFORMED AT: [CB] [facility], [address] [place] [address], [id number], PHONE: [phone], CLOTH WASHER BACK TENDER: PEGGY MARCUS, PHD Release to patient->Immediate Esther Oreilly APRN, SUPERINTENDENT STATIONS CHEMISTRY ORDERAB LES Final Result Performing Organization Address [facility] Co de Phone Number CANCER MINE ADMINISTRATOR [facility] [place] [address], [place] [phone] * IMMUNOFIXATION, SERUM [place] (06/17/2024 2:52 PM CDT) IMMUNOFIXATION RESULT, SERUM COMMENT [facility] Comment:NO MONOCLONALITY DET ECTED. 06/17/2024 2:[address] [facility] - 06/18/2024 3:10 PM CDT TESTING PERFORMED AT: [CB] [facility], [address] [place] [address], [phone], PHONE: [phone], CLOTH WASHER BACK TENDER: PEGGY MARCUS, PHD Release to patient->Immediate Esther Oreilly APRN, SUPERINTENDENT STATIONS LAB SEND OUTS F inal Result Performing Organization Address [facility]/ZIP Co de Phone Number [facility]IST[facility] [place] [address], [place] [phone] * (ABNORMAL) SERUM FREE LIGHT CHAINS, [place] (06/17/2024 2:52 PM CDT) FREE KAPPA LT CHAINS 189.1(H) 2.9 - 20.7 mg/L [facility] FREE LAMBDA LT CHAINS 167.5(H) 4.2 - 27.6 mg/L [facility] KAPPA/LAMBDA RATIO 1.13 0.22 - 1.74 [facility] 06/17/2024 2:52 PM CDT Narrative [facility] - 06/18/2024 1:11 PM CDT Release to patient->Immediate us Esther Oreilly APRN, SUPERINTENDENT STATIONS LAB SEND OUTS F inal Result [facility] MINE ADMINISTRATOR [facility] [place] [address], documented in this encounter Visit Diagnoses Diagnosis Hypogammaglobulinemia (HCC) Hypogammaglobulinaemia, unspecified 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) Iron deficiency Other disorders of iron metabolism documented in this encounter Additional Health Concerns Assessment Noted Time PHQ-9 Depression Total Score: 0 03/08/20 21 11:06 AM CDT documented as of this encounter Care Teams Service Porter Relationship Specialty Start Date End Date Jonatan Worley [address] [place] [address] PCP - General Family Medicine 07/12/20 Srinivasa Lee MD [address] [place] [phone] Consulting Physician Oncology 07/12/20 documented as of this encounter
--- OUTSIDE RECORDS SUMMARY | 2024-08-29 04:33 | XMS_ITS | Encounter Summary ---
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 Buzz Sales PA-C/[facility] Vitals: Vitals: 03/07/23 0947 BP: 142/78 [...] EYE 4 TIMES DAILY ergocalciferol (VITAMIN D) 29097 UNIT Capsule TAKE 1 CAPSULE BY MOUTH [...] 12/06/2022 Component Date Value Ref Range Status [id number] 12/06/2022 9.72 (H) 0.97 - 1.84 mg/L [...] 12/06/2022 3.1 2.9 - 4.4 G/DL Final [id number]-[id number] 12/06/2022 0.3 0.0 - 0.4 G/DL Final [id number]-[id number] 12/06/2022 0.8 0.4 - 1.0 G/DL Final [...] SCAN WILL FOLLOW VIA COMPUTER, MAIL, OR GROUNDSKEEPING MAINTENANCE DELIVERY. PDF 12/06/2022 . Final IGG 12/06/2022 [...] 973 760 - 4,000 cells/uL Final Absolute [place] Count 12/06/2022 608 160 - 1,200 cells/uL [...] st Contact Info) Description 10/18/2024 1:30 PM CERAMIC ENGINEERING PROFESSOR Office Visit [facility] CARE [address] [address] Srinivasa Lee MD [address] [place] [address] L[address]IN [address] [place] [address] documented as of this encounter Results * (ABNORMAL) BETA 2 MICROGLOBULIN (06/12/2023 2:25 PM CDT) [id number] 11.54(H) 0.97 - 1.84 mg/L [facility] Blood 06/12/2023 2:25 PM CDT Narrative [facility] - 06/13/2023 3:31 PM CDT Release to patient->Immediate us Buzz Sales PAC CHEMISTRY ORDERABLES Final Result Performing Organization Address City/[facility]/ZIP Co de Phone Number [facility] [address] [place] [address], [place] [phone] * (ABNORMAL) FREE KAPPA & LAMBDA LIGHT CHAINS SERUM (06/12/2023 2:25 PM CDT) FREE KAPPA LT CHAINS,S 113.4(H) 3.3 - 19.4 MG/L [facility] FREE LAMBDA LT CHAINS,S 91.9(H) 5.7 - 26.3 MG/L [facility] FREE KAPPA/FREE LAMBDA RATIO LT CHAINS 1.23 0.26 - 1.65 [facility] Blood 06/12/2023 2:25 PM CDT Azalia [facility] - 06/13/2023 3:09 PM CDT TESTING PERFORMED AT: [CB] [place], [address], PHONE: [phone], INTERNET SALES ASSOCIATE: PEGGY MARCUS, PHD Release to patient->Immediate Result [facility] Buzz Sales PAC CHEMISTRY ORDERABLES Final Result [facility] [address] [place] [address], [place] [phone] * IMMUNOFIXATION, SERUM [place] (06/12/2023 2:25 PM CDT) IMMUNOFIXATION RESULT, SERUM COMMENT: [facility] Comment: PRESENCE OF MONOCLONAL PROTEIN IS UNCLEAR AT THIS TIME. SUGGEST REPEAT IN 3 TO 6 MONTHS IF CLINICALLY INDICATED. 06/12/2023 2:25 PM CDT Narrative [facility] - 06/13/2023 3:09 PM CDT TESTING PERFORMED AT: [CB] [employer] [address], [place], [address], PHONE: [phone], INTERNET SALES ASSOCIATE: PEGGY MARCUS, PHD Release to patient->Immediate Buzz Sales PAC LAB SEND OUTS Final Resu lt CANCER MAILING MACHINE ASSISTANT [facility] [place] [address] [address] [place] [address], [place] [phone] * ELECTROPHORESIS W/ TOTAL PROTEIN SERUM (06/12/2023 2:25 PM CDT) PROTEIN, TOTAL, SERUM 6.2 6.0 - 8.5 G/DL [facility] ALBUMIN 3.1 2.9 - 4.4 G/DL [facility] [id number] 0.3 0.0 - 0.4 G/DL [facility] [id number]-[id number] 0.9 0.4 - 1.0 G/DL [facility] BETA GLOBULIN 0.9 0.7 - 1.3 G/DL [facility] GAMMA GLOBULIN 1.0 0.4 - 1.8 G/DL [facility] M-SPIKE NOT OBSERVED NOT OBSERVED G/DL [facility] GLOBULIN, TOTAL 3.1 2.2 - 3.9 G/DL [facility] A/G RATIO 1.0 0.7 - 1.7 [facility] PLEASE NOTE: COMMENT [facility] MAILING MACHINE ASSISTANT [facility] Comment: PROTEIN ELECTROPHORESIS SCAN WILL FOLLOW VIA COMPUTER, MAIL, OR GROUNDSKEEPING MAINTENANCE DELIVERY. PDF . [facility] Blood 06/12/2023 2:25 PM CDT Narrative CANCER MAILING MACHINE ASSISTANT [facility] - 06/13/2023 3:09 PM CDT TESTING PERFORMED AT: [] [facility], [address] [place] [address], [place], [address], PHONE: [phone], INTERNET SALES ASSOCIATE: PEGGY MARCUS, PHD Release to patient->Immediate Buzz Sales PAC CHEMISTRY ORDERABLES Final Result CANCER MAILING MACHINE ASSISTANT [facility] [place] [address] [place] [address], * IMMUNOGLOBULIN IGA, IGG & IGM QUANT (06/12/2023 2:25 PM CDT) IGG 960 635 - 1,741 mg/dL [facility] IGA 238 66 - 433 mg/dL [facility] IGM 101 45 - 281 mg/dL [facility] MAILING MACHINE ASSISTANT [facility] Blood 06/12/2023 2:25 PM CDT Narrative CANCER MAILING MACHINE ASSISTANT [facility] - 06/13/2023 3:31 PM CDT Release to patient->Immediate Buzz Sales PAC CHEMISTRY ORDERABLES Final Result CANC[facility] MAILING MACHINE ASSISTANT [facility] [address] [place] [address], * (ABNORMAL) VITAMIN B12 (06/12/2023 2:25 PM CDT) Vitamin B12 1,442(H) 180 - 914 pg/mL [facility] Blood 06/12/2023 2:25 PM CDT [facility] - 06/13/2023 3:29 PM CDT Release to patient->Immediate Buzz [place] PAC CHEMISTRY ORDERABLES Final Result [facility] [address] [place] [address], [place] [phone] * FERRITIN (06/12/2023 2:25 PM CDT) Ferritin 69 11 - 307 ng/mL [facility] Blood 06/12/2023 2:25 PM CDT [facility] - 06/13/2023 3:29 PM CDT Release to patient->Immediate Buzz Sales PAC CHEMISTRY ORDERABLES Final Result Performing Organization Address City/[facility]/ZIP Co de Phone Number CANCER MAILING MACHINE ASSISTANT [facility] [address] [place] [address], * (ABNORMAL) IRON W/ IRON BINDING CAPACITY [place] (06/12/2023 2:25 PM CDT) IRON 64 50 - 212 ug/dL [facility] MAILING MACHINE ASSISTANT [facility] UIBC 188 155 - 355 ug/dL [facility] MAILING MACHINE ASSISTANT [facility] TIBC 252(L) 261 - 478 ug/dl [facility] MAILING MACHINE ASSISTANT [facility] % Saturation 25 20 - 50 % [facility] MAILING MACHINE ASSISTANT [facility] Blood 06/12/2023 2:25 PM CDT [facility] - 06/12/2023 3:29 PM CDT Release to patient->Immediate Buzz Sales PAC LAB SEND OUTS Final Resu lt Performing Organization Address City/[facility]/ZIP Co de Phone Number CANCER MAILING MACHINE ASSISTANT [facility] [place] [address] [place] [address], [place] [phone] * LACTATE DEHYDROGENASE (LD) (06/12/2023 2:25 PM CDT) LDH 152 140 - 271 U/L [facility] MAILING MACHINE ASSISTANT [facility] Blood 06/12/2023 2:25 PM CDT [facility] - 06/12/2023 3:29 PM CDT Release to patient->Immediate Buzz Sales PAC CHEMISTRY ORDERABLES Final Result Performing Organization Address City/[facility]/ZIP Co de Phone Number CANCER MAILING MACHINE ASSISTANT [facility] [address] [place] [address], [place] [phone] * (ABNORMAL) CMP (COMPREHENSIVE METABOLIC PANEL) (06/12/2023 2:25 PM CDT) Glucose 161(H) 70 - 105 mg/dL [facility] Blood Urea Nitrogen 37(H) 7 - 25 mg/dL [facility] Creatinine 2.6(H) 0.6 - 1.2 mg/dL [facility] Sodium 138 136 - 145 mEq/L [facility] Potassium 5.0 3.5 - 5.1 mEq/L [facility] Chloride 111(H) 98 - 107 mEq/L [facility] Bicarbonate 19(L) 21 - 31 mEq/L [facility] Total Bilirubin 0.3 0.3 - 1.0 mg/dL [facility] Alk. Phosphatase 89 34 - 104 U/L [facility] Aspartate Aminotransferase 16 13 - 39 U/L [facility] Alanine Aminotransferase 10 7 - 52 U/L [facility] Total Protein 6.2(L) 6.4 - 8.9 g/dL [facility] Albumin 3.5 3.5 - 5.7 g/dL [facility] Calcium 9.0 8.6 - 10.3 mg/dL [facility] Anion Gap 13.0 7.0 - 15.0 mEq/L [facility] Globulin 2.7 2.0 - 3.5 g/dL [facility] EGFR 20(L) >60 ml/min/1. 73m2 [facility] Comment: This eGFR is calculated using 2020 CKD-EPI Creatinine equation without race modifier based on the NKF-ASN task force recommendations Blood 06/12/2023 2:25 PM CDT Narrative [facility] MAILING MACHINE ASSISTANT [facility] - 06/12/2023 3:29 PM CDT Release to patient->Immediate IS THE PATIENT REQUIRED TO BE FASTING FOR 8 HOURS?->No us Buzz Sales PAC CHEMISTRY ORDERABLES Final Result CANCER MAILING MACHINE ASSISTANT [facility] [place] [address], * (ABNORMAL) COMPLETE BLOOD COUNT (CBC) WITH DIFF (06/12/2023 2:25 PM CDT) WBC 9.8 4.0 - 10.0 10*3/uL [facility] MAILING MACHINE ASSISTANT [facility] HGB 10.0(L) 11.2 - 15.7 g/dL [facility] MAILING MACHINE ASSISTANT [facility] HCT 31.3(L) 34.1 - 44.9 % [facility] MAILING MACHINE ASSISTANT [facility] PLT 200 163 - 369 10*3/uL [facility] MAILING MACHINE ASSISTANT [facility] MPV 10.0 9.4 - 12.4 fL [facility] MAILING MACHINE ASSISTANT [facility] RBC 3.46(L) 3.93 - 5.22 10*6/uL [facility] MAILING MACHINE ASSISTANT [facility] MCV 91 79 - 95 fL [facility] MAILING MACHINE ASSISTANT [facility] MCH 28.9 25.6 - 32.2 pg [facility] MAILING MACHINE ASSISTANT [facility] MCHC 31.9(L) 32.2 - 36.5 g/dL [facility] MAILING MACHINE ASSISTANT [facility] RDW 12.9 11.6 - 14.4 % [facility] MAILING MACHINE ASSISTANT [facility] Absolute Neutrophil Count 6,546 cells/uL [facility] Absolute Seg Count 6,546 1,440 - 6,600 cells/uL [facility] MAILING MACHINE ASSISTANT [facility] Absolute Lymph Count 1,759 760 - 4,000 cells/uL [facility] Absolute [place] Count 586 160 - 1,200 cells/uL [facility] Absolute Eos Count 879(H) 0 - 300 cells/uL [facility] MAILING MACHINE ASSISTANT [facility] Segmented Neutrophils 67(H) 36 - 66 % [facility] MAILING MACHINE ASSISTANT [facility] Lymphocytes 18(L) 19 - 40 % [facility] Monocytes 6 4 - 12 % [facility] Eosinophils 9(H) 0 - 3 % [facility] WBC Estimate Normal [facility] MAILING MACHINE ASSISTANT [facility] Platelet Estimate Normal [facility] MAILING MACHINE ASSISTANT [facility] RBC Morphology Normal C[facility] R MAILING MACHINE ASSISTANT [facility] Blood 06/12/2023 2:25 PM CDT Narrative [facility] MAILING MACHINE ASSISTANT [facility] - 06/12/2023 3:27 PM CDT Release to patient->Immediate us Buzz Sales PAC HEMATOLOGY ORDERABLES Kym noman Result CANCER MAILING MACHINE ASSISTANT [facility] [address] [address], [place] [phone] * (ABNORMAL) BETA 2 MICROGLOBULIN (03/07/2023 10:01 AM CDT) Pathologist [facility] [id number] 9.94(H) 0.97 - 1.84 mg/L [facility] Blood 03/07/2023 10:0 1 AM CDT Narrative [facility] - 03/14/2023 2:06 PM CDT Release to patient->Immediate Buzz Sales PAC CHEMISTRY ORDERABLES Final Result [facility] Cancer Care [address] [address], [place] [phone] * (ABNORMAL) FREE KAPPA & LAMBDA LIGHT CHAINS SERUM (03/07/2023 10:01 AM CDT) [facility] FREE KAPPA LT CHAINS,S 104.9(H) 3.3 - 19.4 MG/L [facility] FREE LAMBDA LT CHAINS,S 59.6(H) 5.7 - 26.3 MG/L [facility] FREE KAPPA/FREE LAMBDA RATIO LT CHAINS 1.76(H) 0.26 - 1.65 [facility] Blood 03/07/2023 10:0 1 AM CDT Narrative [facility] - 03/10/2023 1:08 PM CDT TESTING PERFORMED AT: [] [facility], [address] [place] [address], [place], [address], PHONE: [phone], INTERNET SALES ASSOCIATE: PEGGY MARCUS, PHD Release to patient->Immediate Buzz Sales PAC CHEMISTRY ORDERABLES Final Result [facility] * IMMUNOFIXATION, SERUM [place] (03/07/2023 10:01 AM CDT) IMMUNOFIXATION RESULT, SERUM COMMENT [facility] Comment:NO MONOCLONALITY DET ECTED. 03/07/2023 10:0 1 AM CDT Narrative [facility] - 03/10/2023 11:08 AM CDT TESTING PERFORMED AT: [] [facility], [address] [place] [address], [address], PHONE: [phone], INTERNET SALES ASSOCIATE: PEGGY MARCUS, PHD Release to patient->Immediate Buzz Sales [facility] LAB SEND OUTS Final Resu lt [facility] * (ABNORMAL) ELECTROPHORESIS W/ TOTAL PROTEIN SERUM (03/07/2023 10:01 AM CDT) PROTEIN, TOTAL, SERUM 5.7(L) 6.0 - 8.5 G/DL [facility] ALBUMIN 3.2 2.9 - 4.4 G/DL [facility] [id number]-[id number] 0.2 0.0 - 0.4 G/DL [facility] [id number]-3-[id number] 0.8 0.4 - 1.0 G/DL [facility] BETA GLOBULIN 0.8 0.7 - 1.3 G/DL [facility] GAMMA GLOBULIN 0.7 0.4 - 1.8 G/DL [facility] M-SPIKE NOT OBSERVED NOT OBSERVED G/DL [facility] GLOBULIN, TOTAL 2.5 2.2 - 3.9 G/DL [facility] A/G RATIO 1.3 0.7 - 1.7 [facility] PLEASE NOTE: COMMENT [facility] Comment: PROTEIN ELECTROPHORESIS SCAN WILL FOLLOW VIA COMPUTER, MAIL, OR GROUNDSKEEPING MAINTENANCE DELIVERY. PDF . [facility] Blood 03/07/2023 10:0 1 AM CDT Narrative [facility] - 03/10/2023 3:09 PM CDT TESTING PERFORMED AT: [] [email or web address], [address] [facility], [place], [address], PHONE: [phone], INTERNET SALES ASSOCIATE: PEGGY MARCUS, PHD Release to patient->Immediate Buzz Sales PAC CHEMISTRY ORDERABLES Final Result [facility] * IMMUNOGLOBULIN IGA, IGG & IGM QUANT (03/07/2023 10:01 AM CDT) IGG 746 635 - 1,741 mg/dL [facility] IGA 202 66 - 433 mg/dL [facility] IGM 104 45 - 281 mg/dL [facility] Blood 03/07/2023 10:0 1 AM CDT Narrative [facility] - 03/10/2023 2:03 PM CDT Release to patient->Immediate Buzz Sales PAC CHEMISTRY ORDERABLES Final Result Performing Organization Address City/[facility]/ZIP Co de Phone Number [facility] [address] [phone] documented in this encounter Visit Diagnoses Diagnosis [...] documented as of this encounter Care Teams Mill Roll Operator Relationship Specialty Start Date End Date Jonatan Worley [address] [place] [address] PCP - General Family Medicine 07/12/20 Srinivasa Lee MD [address] [place] [address] Consulting Physician Oncology 07/12/20 documented as of this encounter
--- OUTSIDE RECORDS SUMMARY | 2024-08-29 04:33 | XMS_ITS | Encounter Summary ---
Author Organization [facility] Address [address] [place] [address] Phone Care Team Providers Care Marketing Sales Consultant Name Role Phone Jonatan Worley Primary Care Provider [phone] Srinivasa Lee MD Unavailable [phone] Encounter Details Date Type Department Care Team (Late st Contact Info) Description 02/19/2024 Telephone [facility] [address] [place] [address] Rosalina Vázquez, [employer], DIRECTOR RECORDS MANAGEMENT [address] [place] [address] Social History Tobacco Use Types [...] file Legal Sex Female 11:51 AM OPERATIONS FORESTER Gender Identity Not on file Sexual Orientation Not on file documented as of this encounter Functional Status * Question Answer Date of Assessment Author Little interest or pleasure in doing things Not at all 02/19/2024 1:54 PM Jatin Nunez, PEN AND PENCIL REPAIRER Feeling down, depressed, or hopeless Not at [...] CDT ----- Please fax CMP results to doubler operator, thanks! documented in this encounter Plan of Treatment Upcoming Encounters Date Type Department Care Team (Late st Contact Info) Description 10/18/2024 1:30 PM OPERATIONS FORESTER Office Visit [facility] [address] [place] [address] Srinivasa Lee MD [address] [place] [address] documented as of this encounter Visit Diagnoses Not on filedocumented in this encounter Additional Health Concerns Assessment Noted Time PHQ-9 Depression Total Score: 0 03/08/20 21 11:06 AM CDT documented as of this encounter Care Teams Marketing Sales Consultant Relationship Specialty Start Date End Date Jonatan Worley [address] [place] [address] PCP - General Family Medicine 07/12/20 Srinivasa Lee MD [address] [place] [phone] Consulting Physician Oncology 07/12/20 documented as of this encounter
--- OUTSIDE RECORDS SUMMARY | 2024-08-29 04:33 | XMS_ITS | Encounter Summary ---
Author Organization [facility] Address [address] [place] [address]. [place] [id number] [place] [address] Care Team Providers Care Factory Maintenance Manager Name Role Phone Unavailable Primary Care Provider Unavailabl e Encounter Details Date Type Department Care Team (Late st Contact Info) Description 10/28/2001 [place] [address] , Generic Conversion, Social History Tobacco Use [...]
--- OUTSIDE RECORDS SUMMARY | 2024-08-29 04:33 | XMS_ITS | Encounter Summary ---
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 HGB 9.6(L) 11.2 - 15.7 g/dL [facility] HCT 28.4(L) 34.1 - 44.9 % [facility] PLT 183 163 - 369 10*3/uL [facility] [place] MPV 11.0 9.4 - 12.4 fL [facility] RBC 3.22(L) 3.93 - 5.22 10*6/uL [facility] MCV 88 79 - 95 fL [facility] [place] MCH 29.8 25.6 - 32.2 pg [facility] [place] MCHC 33.8 32.2 - 36.5 g/dL [facility] RDW 12.7 11.6 - 14.4 % [facility] [place] Neutrophils % 63.4 36.0 - 66.0 % [facility] [place] Lymphocytes % 19.3 19.0 - 40.0 % [facility] [place] Monocytes % 8.7 4.1 - 12.1 % [facility] [place] Eosinophils % 7.7(H) 0.0 - 3.5 % [facility] [place] Basophils % 0.6 0.0 - 1.0 % [facility] Absolute Neutrophils 5.6 1.4 - 6.6 10*3/uL [facility] Absolute Lymphocytes 1.7 0.8 - 4.0 10*3/uL [facility] Absolute Monocytes 0.8 0.2 - 1.2 10*3/uL [facility] Absolute Eosinophils 0.7(H) 0.0 - 0.4 10*3/uL [facility] Absolute Basophils 0.1 0.0 - 0.1 10*3/uL [facility] WBC Estimate Normal [facility] Platelet Estimate Normal CA [facility] RBC Morphology Abnormal [facility] Poikilocytosis 1+ [facility] 06/14/2022 9:38 AM CDT Srinivasa Lee MD LAB SEND OUTS Final Result Performing Organization Address City/[facility] Co de Phone Number [facility] [place] [address], [place] [phone] * (ABNORMAL) IRON W/ IRON BINDING CAPACITY [place] (06/14/2022 9:38 AM CDT) IRON 62 50 - 212 ug/dL [facility] UIBC 187 155 - 355 ug/dL [facility] TIBC 249(L) 261 - 478 ug/dl [facility] % Saturation 25 20 - 50 % [facility] Blood 06/14/2022 9:38 AM CDT Narrative [facility] - 06/14/2022 11:05 AM CDT Release to patient->Immediate us Srinivasa Lee MD LAB SEND OUTS Final Result Performing Organization Address City/[facility] Co de Phone Number [facility] [address] [address], [place] [phone] * FERRITIN (06/14/2022 9:38 AM CDT) Ferritin 67 11 - 307 ng/mL CANCER ONLINE MARKETING MANAGER [facility] Blood 06/14/2022 9:3 8 AM CDT Narrative CANCER ONLINE MARKETING MANAGER [facility] - 06/14/2022 2:45 PM CDT Release to patient->Immediate us Srinivasa Lee MD CHEMISTRY ORDERABLES Final R esult CANCER ONLINE MARKETING MANAGER [facility] [place] [address], documented in this encounter Visit Diagnoses Diagnosis Anemia of unknown etiology Anemia, unspecified documented in this encounter Additional Health Concerns Assessment Noted Time PHQ-9 Depression Total Score: 0 03/08/20 21 11:06 AM CDT documented as of this encounter Care Teams Pipe Finishing Supervisor Relationship Specialty Start Date End Date Jonatan Worley [address] [place] [address] PCP - General Family Medicine 07/12/20 Srinivasa Lee MD [address] [place] [phone] Consulting Physician Oncology 07/12/20 documented as of this encounter
--- OUTSIDE RECORDS SUMMARY | 2024-08-29 04:33 | XMS_ITS | Encounter Summary ---
Author Organization [facility] Address [address] [place] [address] Phone Care Team Providers Care Ornamental Iron Worker Name Role Phone Jonatan Worley Primary Care Provider Srinivasa Lee MD Unavailable [phone] Encounter Details Date Type Department Care Team (Latest Contact Info) Description 06/12/2023 2:05 PM CDT Lab [facility] [address] [address] Lab, Cc [facility] [place] Hypogammaglobulinemia (HCC); Anemia of unknown [...] file Legal Sex Female 11:51 AM MANAGER PACKAGING Gender Identity Not on file Sexual Orientation [...] Contact Info) Description 10/18/2024 1:30 PM MANAGER PACKAGING Office Visit [facility] [address] [address] Srinivasa Lee MD [address] [place] [address] documented as of this encounter [...] WBC 9.8 4.0 - 10.0 10*3/uL CANCER HOT METAL MIXER OPERATOR [facility] HGB 10.0(L) 11.2 - 15.7 g/dL [facility] HCT 31.3(L) 34.1 - 44.9 % CANCER HOT METAL MIXER OPERATOR [facility] PLT 200 163 - 369 10*3/uL CANCER HOT METAL MIXER OPERATOR [facility] MPV 10.0 9.4 - 12.4 fL CANCER HOT METAL MIXER OPERATOR [facility] RBC 3.46(L) 3.93 - 5.22 10*6/uL CANCER HOT METAL MIXER OPERATOR [facility] MCV 91 79 - 95 fL CANCER HOT METAL MIXER OPERATOR HELPER [facility] MCH 28.9 25.6 - 32.2 pg CANCER HOT METAL MIXER OPERATOR HELPER [facility] MCHC 31.9(L) 32.2 - 36.5 g/dL [facility] RDW 12.9 11.6 - 14.4 % CANCER HOT METAL MIXER OPERATOR [facility] Absolute Neutrophil Count 6,546 cells/uL [facility] Absolute Seg Count 6,546 1,440 - 6,600 cells/uL CANCER HOT METAL MIXER OPERATOR [facility] Absolute Lymph Count 1,759 760 - 4,000 cells/uL [facility] HOT METAL MIXER OPERATOR HELPER [facility] Absolute [place] Count 586 160 - 1,200 cells/uL [facility] HOT METAL MIXER OPERATOR [facility] Absolute Eos Count 879(H) 0 - 300 cells/uL [facility] HOT METAL MIXER OPERATOR HELPER [facility] Segmented Neutrophils 67(H) 36 - 66 % [facility] HOT METAL MIXER OPERATOR HELPER [facility] Lymphocytes 18(L) 19 - 40 % [facility] C ENTER SPECIALISTS [facility] Monocytes 6 4 - 12 % CANCER SUKHDEEP TER SPECIALISTS [facility] Eosinophils 9(H) 0 - 3 % CAN[facility]ER C ENTER SPECIALISTS [facility] WBC Estimate Normal [facility] HOT METAL MIXER OPERATOR HELPER [facility] Platelet Estimate Normal [facility] HOT METAL MIXER OPERATOR HELPER [facility] RBC Morphology Normal CANCE R [facility] Blood 06/12/2023 2:25 PM CDT Narrative [facility] HOT METAL MIXER OPERATOR [facility] - 06/12/2023 3:27 PM CDT Release to patient->Immediate Buzz Sales [facility] HEMATOLOGY ORDERABLES Kym tineo Result [facility] HOT METAL MIXER OPERATOR HELPER [facility] [place] [address], * (ABNORMAL) CMP (COMPREHENSIVE METABOLIC PANEL) (06/12/2023 2:25 PM CDT) Glucose 161(H) 70 - 105 mg/dL [facility] Blood Urea Nitrogen 37(H) 7 - 25 mg/dL [facility] Creatinine 2.6(H) 0.6 - 1.2 mg/dL [facility] Sodium 138 136 - 145 mEq/L [facility] Potassium 5.0 3.5 - 5.1 mEq/L [facility] Chloride 111(H) 98 - 107 mEq/L [facility] Bicarbonate 19(L) 21 - 31 mEq/L [facility] Total Bilirubin 0.3 0.3 - 1.0 mg/dL [facility] Alk. Phosphatase 89 34 - 104 U/L [facility] Aspartate Aminotransferase 16 13 - 39 U/L [facility] Alanine Aminotransferase 10 7 - 52 U/L [facility] Total Protein 6.2(L) 6.4 - 8.9 g/dL [facility] Albumin 3.5 3.5 - 5.7 g/dL [facility] Calcium 9.0 8.6 - 10.3 mg/dL [facility] Anion Gap 13.0 7.0 - 15.0 mEq/L [facility] Globulin 2.7 2.0 - 3.5 g/dL [facility] EGFR 20(L) >60 ml/min/1. 73m2 [facility] HOT METAL MIXER OPERATOR [facility] Comment: This eGFR is calculated using 2020 CKD-EPI Creatinine equation without race modifier based on the NKF-ASN task force recommendations Blood 06/12/2023 2:25 PM CDT [facility] - 06/12/2023 3:29 PM CDT Release to patient->Immediate IS THE PATIENT REQUIRED TO BE FASTING FOR 8 HOURS?->No Buzz Sales PAC CHEMISTRY ORDERABLES Final Result Performing Organization Address City/[facility]/ZIP Co de Phone Number [facility] HOT METAL MIXER OPERATOR [facility] [address] [place] [address], [place] [phone] * LACTATE DEHYDROGENASE (LD) (06/12/2023 2:25 PM CDT) LDH 152 140 - 271 U/L [facility] Blood 06/12/2023 2:25 PM CDT [facility] - 06/12/2023 3:29 PM CDT Release to patient->Immediate Buzz Sales PAC CHEMISTRY ORDERABLES Final Result [facility] [address] [place] [address], [place] [phone] * (ABNORMAL) IRON W/ IRON BINDING CAPACITY [place] (06/12/2023 2:25 PM CDT) IRON 64 50 - 212 ug/dL CANCER HOT METAL MIXER OPERATOR HELPER [facility] UIBC 188 155 - 355 ug/dL CANCER HOT METAL MIXER OPERATOR HELPER [facility] TIBC 252(L) 261 - 478 ug/dl CANCER HOT METAL MIXER OPERATOR HELPER [facility] % Saturation 25 20 - 50 % CANCER HOT METAL MIXER OPERATOR HELPER [facility] Blood 06/12/2023 2:25 PM CDT Narrative CANCER HOT METAL MIXER OPERATOR HELPER [facility] - 06/12/2023 3:29 PM CDT Release to patient->Immediate us Buzz Sales PAC LAB SEND OUTS Final Resu lt CANCER HOT METAL MIXER OPERATOR HELPER [facility] [address] [place] [address], [place] [phone] * FERRITIN (06/12/2023 2:25 PM CDT) Ferritin 69 11 - 307 ng/mL CANCER HOT METAL MIXER OPERATOR HELPER [facility] Blood 06/12/2023 2:25 PM CDT Narrative CANCER HOT METAL MIXER OPERATOR [facility] - 06/13/2023 3:29 PM CDT Release to patient->Immediate us Buzz Sales PAC CHEMISTRY ORDERABLES Final Result Performing Organization Address [facility]/ZIP Co de Phone Number CANCER HOT METAL MIXER OPERATOR HELPER [facility] [address] [place] [address], [place] [phone] * (ABNORMAL) VITAMIN B12 (06/12/2023 2:25 PM CDT) Vitamin B12 1,442(H) 180 - 914 pg/mL CANCER HOT METAL MIXER OPERATOR HELPER [facility] Blood 06/12/2023 2:25 PM CDT Narrative CANCER HOT METAL MIXER OPERATOR [facility] - 06/13/2023 3:29 PM CDT Release to patient->Immediate us Buzz Sales PAC CHEMISTRY ORDERABLES Final Result CANCER HOT METAL MIXER OPERATOR HELPER [facility] [address] [place] [address], * IMMUNOGLOBULIN IGA, IGG & IGM QUANT (06/12/2023 2:25 PM CDT) IGG 960 635 - 1,741 mg/dL CANCER HOT METAL MIXER OPERATOR [facility] IGA 238 66 - 433 mg/dL [facility] HOT METAL MIXER OPERATOR [facility] IGM 101 45 - 281 mg/dL CANCER HOT METAL MIXER OPERATOR HELPER [facility] Blood 06/12/2023 2:25 PM CDT Narrative CANCER HOT METAL MIXER OPERATOR HELPER [facility] - 06/13/2023 3:31 PM CDT Release to patient->Immediate Buzz Sales PAC CHEMISTRY ORDERABLES Final Result CANCER HOT METAL MIXER OPERATOR HELPER [facility] [address] [place] [address], * ELECTROPHORESIS W/ TOTAL PROTEIN SERUM (06/12/2023 2:25 PM CDT) PROTEIN, TOTAL, SERUM 6.2 6.0 - 8.5 G/DL CANCER HOT METAL MIXER OPERATOR HELPER [facility] ALBUMIN 3.1 2.9 - 4.4 G/DL CANCER HOT METAL MIXER OPERATOR HELPER [facility] [id number] 0.3 0.0 - 0.4 G/DL CANCER HOT METAL MIXER OPERATOR HELPER [facility] [id number] 0.9 0.4 - 1.0 G/DL CANCER HOT METAL MIXER OPERATOR HELPER [facility] BETA GLOBULIN 0.9 0.7 - 1.3 G/DL CANCER HOT METAL MIXER OPERATOR HELPER [facility] GAMMA GLOBULIN 1.0 0.4 - 1.8 G/DL CANCER HOT METAL MIXER OPERATOR HELPER [facility] M-SPIKE NOT OBSERVED NOT OBSERVED G/DL CANCER HOT METAL MIXER OPERATOR HELPER [facility] GLOBULIN, TOTAL 3.1 2.2 - 3.9 G/DL CANCER HOT METAL MIXER OPERATOR HELPER [facility] A/G RATIO 1.0 0.7 - 1.7 CANCER SUKHDEEP TER SPECIALISTS [facility] PLEASE NOTE: COMMENT CANCER HOT METAL MIXER OPERATOR HELPER [facility] Comment: PROTEIN ELECTROPHORESIS SCAN WILL FOLLOW VIA COMPUTER, MAIL, OR GLASS INSTALLER DELIVERY. PDF . CANCER SUKHDEEP TER SPECIALISTS [facility] Blood 06/12/2023 2:25 PM CDT Narrative CANCER HOT METAL MIXER OPERATOR HELPER [facility] - 06/13/2023 3:09 PM CDT TESTING PERFORMED AT: [] [facility], [address] [place] [address], [address], PHONE: [phone], GEAR TESTER: PEGGY MARCUS, PHD Release to patient->Immediate Buzz Sales PAC CHEMISTRY ORDERABLES Final Result Performing Organization Address [facility]/ZIP Co de Phone Number CANCER HOT METAL MIXER OPERATOR HELPER [facility] [address] [place] [address], [place] [phone] * IMMUNOFIXATION, SERUM [place] (06/12/2023 2:25 PM CDT) IMMUNOFIXATION RESULT, SERUM COMMENT: CANCER HOT METAL MIXER OPERATOR HELPER [facility] Comment: PRESENCE OF MONOCLONAL PROTEIN IS UNCLEAR AT THIS TIME. SUGGEST REPEAT IN 3 TO 6 MONTHS IF CLINICALLY INDICATED. 06/12/2023 2:25 PM CDT Narrative CANCER HOT METAL MIXER OPERATOR HELPER [facility] - 06/13/2023 3:09 PM CDT TESTING PERFORMED AT: [] [facility], [address] [place] [address], [address], PHONE: [phone], GEAR TESTER: PEGGY MARCUS, PHD Release to patient->Immediate Buzz Sales PAC LAB SEND OUTS Final Resu lt Performing Organization Address [facility]/ZIP Co de Phone Number CANCER HOT METAL MIXER OPERATOR HELPER [facility] [place] [address] [address], [place] [phone] * (ABNORMAL) FREE KAPPA & LAMBDA LIGHT CHAINS SERUM (06/12/2023 2:25 PM CDT) FREE KAPPA LT CHAINS,S 113.4(H) 3.3 - 19.4 MG/L CANCER HOT METAL MIXER OPERATOR HELPER [facility] FREE LAMBDA LT CHAINS,S 91.9(H) 5.7 - 26.3 MG/L CANCER HOT METAL MIXER OPERATOR [facility] [place] FREE KAPPA/FREE LAMBDA RATIO LT CHAINS 1.23 0.26 - 1.65 CANCER HOT METAL MIXER OPERATOR HELPER [facility] Blood 06/12/2023 2:25 PM CDT Narrative [facility] HOT METAL MIXER OPERATOR [facility] - 06/13/2023 3:09 PM CDT TESTING PERFORMED AT: [] [address], [place], [address], PHONE: [phone], GEAR TESTER: PEGGY MARCUS, PHD Release to patient->Immediate Buzz Sales PAC CHEMISTRY ORDERABLES Final Result Performing Organization Address City/[facility]/ZIP Co de Phone Number [facility] HOT METAL MIXER OPERATOR [facility] [place] [address], [place] [phone] * (ABNORMAL) BETA 2 MICROGLOBULIN (06/12/2023 2:25 PM CDT) [id number] 11.54(H) 0.97 - 1.84 mg/L [facility] Blood 06/12/2023 2:25 PM CDT [facility] - 06/13/2023 3:31 PM CDT Release to patient->Immediate Buzz Sales PAC CHEMISTRY ORDERABLES Final Result Performing Organization Address City/[facility] Co de Phone Number [facility] HOT METAL MIXER OPERATOR [facility] [address], [place] [phone] documented in this encounter Visit Diagnoses Diagnosis Hypogammaglobulinemia (HCC) Hypogammaglobulinaemia, unspecified Anemia of unknown etiology Anemia, unspecified documented in this encounter Additional Health Concerns Assessment Noted Time PHQ-9 Depression Total Score: 0 03/08/20 21 11:06 AM CDT documented as of this encounter Care Teams Ornamental Iron Worker Relationship Specialty Start Date End Date Jonatan Worley [address] [place] [address] PCP - General Family Medicine 07/12/20 Srinivasa Lee MD [address] [place] [phone] Consulting Physician Oncology 07/12/20 documented as of this encounter
--- OUTSIDE RECORDS SUMMARY | 2024-08-29 04:33 | XMS_ITS | Encounter Summary ---
Author Organization [facility] Address [address] [place] [address] Phone Care Team Providers Care Patient Support Specialist Name Role Phone Jonatan Worley Primary Care Provider [phone] Srinivasa Lee MD Unavailable Reason for Visit * Reason Onset Date Comments Medication Refill 07/23/2023 Encounter Details Date Type Department Care Team (Late st Contact Info) Description 07/23/2023 Refill [facility] [address] [address] Srinivasa Lee MD [address] [address] Medication Refill Social History Tobacco [...] on file Legal Sex Female 11:51 AM WORKDAY SENIOR ASSOCIATE Gender Identity Not on file Sexual Orientation Not on file documented as of this encounter Miscellaneous Notes * Telephone Encounter - Diana Maldonado RN - 07/23/2023 11:17 AM CST Refill request from pharmacy and patient Please fill if appropriate. DAY SENIOR ASSOCIATE documented in this encounter Plan of Treatment Upcoming Encounters Date Type Department Care Team (Late st Contact Info) Description 10/18/2024 1:30 PM WORKDAY SENIOR ASSOCIATE Office Visit [facility] [place] [address] [place] [phone] Srinivasa Lee MD [address] [facility] [address] [place], [place] [address] documented as of this encounter Visit Diagnoses Not on filedocumented in this encounter Additional Health Concerns Assessment Noted Time PHQ-9 Depression Total Score: 0 03/08/20 21 11:06 AM CDT documented as of this encounter Care Teams Patient Support Specialist Relationship Specialty Start Date End Date Jonatan Worley [address] [place] [address] PCP - General Family Medicine 07/12/20 Srinivasa Lee MD [address] [place] [phone] Consulting Physician Oncology 07/12/20 documented as of this encounter
--- OUTSIDE RECORDS SUMMARY | 2024-08-29 04:33 | XMS_ITS | Encounter Summary ---
Author Organization [employer] Care Team Providers Care Coremaker Experimental Name Role Phone Meir Jonatan Primary Care Provider [phone] Srinivasa Lee MD Unavailable [phone] Encounter Details Date Type Department Care Team [...] on file Legal Sex Female 11:51 AM FLOWER SHOP LABORER/DESIGNER Gender Identity Not on file Sexual Orientation [...] st Contact Info) Description 10/18/2024 1:30 PM FLOWER SHOP LABORER/DESIGNER Office Visit [facility] [place] [address] [place] [phone] Srinivasa Lee MD [address] [facility] [address] [place] [address] documented as of this encounter Visit Diagnoses Not on filedocumented in this encounter Additional Health Concerns Assessment Noted Time PHQ-9 Depression Total Score: 0 03/08/20 11:06 AM CDT documented as of this encounter Care Teams Coremaker Experimental Relationship Specialty Start Date End Date Jonatan Worley [address] [place] [address] PCP - General Family Medicine 07/12/20 Srinivasa Lee MD [address] [place] [phone] Consulting Physician Oncology 07/12/20 documented as of this encounter
--- OUTSIDE RECORDS SUMMARY | 2024-08-29 04:33 | XMS_ITS | Encounter Summary ---
Author Organization [facility] Address [address] [place] [address] Phone Care Team Providers Care Behavioral Geneticist Name Role Phone Jonatan Worley Primary Care Provider Srinivasa Lee MD Unavailable [phone] Encounter Details Date Type Department Care Team (Late st Contact Info) Description 03/07/2023 Telephone [facility] [place] [address] [place] [address] Buzz Sales, PAC Social History [...] on file Legal Sex Female 11:51 AM CAR SEAT UPHOLSTERER Gender Identity Not on file Sexual Orientation [...] 6 hours ago (8:33 AM) Guerita Link [facility] You; [facility] Nurse Navigator Pool; Buzz Sales PAC; Srinivasa [...] st Contact Info) Description 10/18/2024 1:30 PM CAR SEAT UPHOLSTERER Office Visit [facility] [address] [place] [phone] Srinivasa Lee MD [address] [place] [address] [id number] documented as of this encounter Visit Diagnoses Not on filedocumented in this encounter Additional Health Concerns Assessment Noted Time PHQ-9 Depression Total Score: 0 03/08/20 21 11:06 AM CDT documented as of this encounter Care Teams Behavioral Geneticist Relationship Specialty Start Date End Date Jonatan Worley [address] [place] [address] PCP - General Family Medicine 07/12/20 Srinivasa Lee MD [address] [place] [phone] Consulting Physician Oncology 07/12/20 documented as of this encounter
--- OUTSIDE RECORDS SUMMARY | 2024-08-29 04:33 | XMS_ITS | Encounter Summary ---
Author Organization [employer] Care Team Providers Care Sales Agent Protective Service Name Role Phone Jonatan Worley Primary Care Provider [phone] Srinivasa Lee MD Unavailable [phone] Encounter Details Date Type Department Care Team [...] on file Legal Sex Female 11:51 AM CORPORATE OPERATIONS COMPLIANCE MANAGER Gender Identity Not on file Sexual Orientation [...] st Contact Info) Description 10/18/2024 1:30 PM CORPORATE OPERATIONS COMPLIANCE MANAGER Office Visit [facility] [place] [address] [place] [phone] Srinivasa Lee MD [address] [facility] [address] [place] [address] documented as of this encounter Visit Diagnoses Not on filedocumented in this encounter Additional Health Concerns Assessment Noted Time PHQ-9 Depression Total Score: 0 03/08/20 21 11:06 AM CDT documented as of this encounter Care Teams Sales Agent Protective Service Relationship Specialty Start Date End Date Jonatan Worley [address] [place] [address] PCP - General Family Medicine 07/12/20 Srinivasa Lee MD [address] [place] [phone] Consulting Physician Oncology 07/12/20 documented as of this encounter
--- OUTSIDE RECORDS SUMMARY | 2024-08-29 04:33 | XMS_ITS | Encounter Summary ---
Author Organization [employer] Care Team Providers Care Aircraft Fueler Name Role Phone Jonatan Worley Primary Care Provider [phone] Srinivasa Lee MD Unavailable [phone] Encounter Details Date Type Department Care Team [...] on file Legal Sex Female 11:51 AM HOUSE PAINTING INSTRUCTOR Gender Identity Not on file Sexual Orientation [...] st Contact Info) Description 10/18/2024 1:30 PM HOUSE PAINTING INSTRUCTOR Office Visit [facility] [address] [place] [address] Srinivasa Lee MD [address] [place] [address] documented as of this encounter Visit Diagnoses Not on filedocumented in this encounter Additional Health Concerns Assessment Noted Time PHQ-9 Depression Total Score: 0 03/08/20 21 11:06 AM CDT documented as of this encounter Care Teams Aircraft Fueler Relationship Specialty Start Date End Date Jonatan Worley [address] [place] [address] PCP - General Family Medicine 07/12/20 Srinivasa Lee MD [address] [place] [phone] Consulting Physician Oncology 07/12/20 documented as of this encounter
--- OUTSIDE RECORDS SUMMARY | 2024-08-29 04:33 | XMS_ITS | Encounter Summary ---
Author Organization [employer] Care Team Providers Care Math Interventionist Name Role Phone Jonatan Worley Primary Care Provider [phone] Srinivasa Lee MD Unavailable [phone] Encounter Details Date Type Department Care Team [...] on file Legal Sex Female 11:51 AM PENSION ADMINISTRATOR Gender Identity Not on file Sexual Orientation [...] st Contact Info) Description 10/18/2024 1:30 PM PENSION ADMINISTRATOR Office Visit [facility] [address] [place] [address] Srinivasa Lee MD [address] [place] [address] documented as of this encounter Visit Diagnoses Not on filedocumented in this encounter Additional Health Concerns Assessment Noted Time PHQ-9 Depression Total Score: 0 03/08/20 21 11:06 AM CDT documented as of this encounter Care Teams Math Interventionist Relationship Specialty Start Date End Date Jonatan Worley [address] [place] [address] PCP - General Family Medicine 07/12/20 Srinivasa Lee MD [address] [place] [phone] Consulting Physician Oncology 07/12/20 documented as of this encounter
--- OUTSIDE RECORDS SUMMARY | 2024-08-29 04:33 | XMS_ITS | Encounter Summary ---
Author Organization [facility] Address [address] [place] [address] Phone Care Team Providers Care Information Services Vice President Name Role Phone Jonatan Worley Primary Care Provider Srinivasa Lee MD Unavailable Reason for Visit * Reason Comments Follow-up Encounter Details Date Type Department Care Team (Latest Contact Info) Description 09/06/2022 9:30 AM ELECTRICAL ENGINEERING DESIGNER [facility] [address] [address] Srinivasa Lee MD [facility] [address] [address] Hypogammaglobulinemia (HCC) (Primary Dx); Anemia [...] on file Legal Sex Female 11:51 AM ELECTRICAL ENGINEERING DESIGNER Gender Identity Not on file Sexual Orientation Not on file COVID-19 Exposure Response Date Recorded In the last 10 days, have sloane foreman been in contact with someone who was confirmed or suspected to have Coronavirus/COVID-19? No / Unsure 09/06/2022 9:09 AM ELECTRICAL ENGINEERING DESIGNER documented as of this encounter Last Filed Vital Signs Vital Sign Reading Time Taken Comments Blood Pressure 158/106 09/06/2022 9:43 AM ELECTRICAL ENGINEERING DESIGNER Pulse 69 09/06/2022 9:43 AM ELECTRICAL ENGINEERING DESIGNER Temperature 36.7 ??C (98 ??F) 09/06/2022 9:43 AM ELECTRICAL ENGINEERING DESIGNER Respiratory Rate 18 09/06/2022 9:43 AM ELECTRICAL ENGINEERING DESIGNER Oxygen Saturation 98% 09/06/2022 9:43 AM ELECTRICAL ENGINEERING DESIGNER Inhaled Oxygen Concentration - - Weight 95.7 kg (211 lb) 09/06/2022 9:43 AM ELECTRICAL ENGINEERING DESIGNER Height 170.2 cm (5' 7 ) 09/06/2022 9:43 AM ELECTRICAL ENGINEERING DESIGNER Body Mass Index 33.05 09/06/2022 9:43 AM ELECTRICAL ENGINEERING DESIGNER documented in this encounter Progress Notes * Srinivasa Lee MD - 09/06/2022 9:30 AM CST Images from the original note were not included. Patient: Arely Ernandez Age: 61 y.o. : 1960 [facility] En[facility] Date: 09/06/2022 Care Team: Current Providers [...] 4 TIMES DAILY ??? ergocalciferol (VITAMIN D) 52125 UNIT Capsule TAKE 1 CAPSULE BY MOUTH [...] 09/06/2022 12.4 11.6 - 14.4 % Final TRICAL ENGINEERING DESIGNER TRICAL ENGINEERING DESIGNER documented in this encounter Plan of Treatment Upcoming Encounters Date Type Department Care Team (Late st Contact Info) Description 10/18/2024 1:30 PM ELECTRICAL ENGINEERING DESIGNER Office Visit [facility] [address] [place] [phone] Srinivasa Lee MD [address] [place] [address] [address] [place] [address] documented as of this encounter Visit Diagnoses Diagnosis Hypogammaglobulinemia (HCC)- Primary Hypogammaglobulinaemia, unspecified Anemia of unknown etiology Anemia, unspecified documented in this encounter Additional Health Concerns Assessment Noted Time PHQ-9 Depression Total Score: 0 03/08/20 21 11:06 AM CDT documented as of this encounter Care Teams Information Services Vice President Relationship Specialty Start Date End Date Jonatan Worley [address] [place] [address] PCP - General Family Medicine 07/12/20 Srinivasa Lee MD [address] [place] [phone] Consulting Physician Oncology 07/12/20 documented as of this encounter
--- OUTSIDE RECORDS SUMMARY | 2024-08-29 04:33 | XMS_ITS | Encounter Summary ---
Author Organization [employer] Care Team Providers Care System Specialist Name Role Phone Meir Jonatan Primary Care Provider [phone] Srinivasa Lee MD Unavailable [phone] Encounter Details Date Type Department Care Team [...] on file Legal Sex Female 11:51 AM POLICE COMMUNICATIONS DISPATCHER Gender Identity Not on file Sexual Orientation [...] st Contact Info) Description 10/18/2024 1:30 PM POLICE COMMUNICATIONS DISPATCHER Office Visit [facility] [address] [place] [phone] Srinivasa Lee MD [address] [place] [address] documented as of this encounter Visit Diagnoses Not on filedocumented in this encounter Additional Health Concerns Assessment Noted Time PHQ-9 Depression Total Score: 0 03/08/20 21 11:06 AM CDT documented as of this encounter Care Teams System Specialist Relationship Specialty Start Date End Date Jonatan Worley [address] [place] [address] PCP - General Family Medicine 07/12/20 Srinivasa Lee MD [address] [place] [phone] Consulting Physician Oncology 07/12/20 documented as of this encounter
--- OUTSIDE RECORDS SUMMARY | 2024-08-29 04:33 | XMS_ITS | Encounter Summary ---
Author Organization [facility] Address [address] [place] [address] Phone Care Team Providers Care Professional Development Director Name Role Phone Jonatan Worley Primary Care Provider Srinivasa Lee MD Unavailable [phone] Reason for Visit * Reason Comments Follow-up Encounter Details Date Type Department Care Team (Latest Contact Info) Description 06/17/2024 2:00 PM CDT Office Visit [facility] [place] [address] [place] [address] Esther Oreilly, MEDICAL FILE CLERK, EDUCATIONAL PSYCHOLOGIST [address] [place], [place] [phone] Hypogammaglobulinemia (HCC) (Primary Dx); Anemia in stage [...] file Legal Sex Female 11:51 AM MACHINE SIZER Gender Identity Not on file Sexual Orientation [...] : 1960 [facility] En[facility] Date: 06/17/2024 Care Team: Current Providers PCP: Jonatan Worley Care Team Provider: Srinivasa Lee MD Encounter Provider: Esther Rojas APRN, EDUCATIONAL PSYCHOLOGIST Referring Provider: not found Nurse Practitioner: Esther Rojas APRN, EDUCATIONAL PSYCHOLOGIST HISTORY OF PRESENT ILLNESS: Ms. Arely Ernandez [...] EPO. 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 I will have the patient return to [...] per Care Everywhere. MD Esther Arriola, DNP, CAMPUS INTERVIEWS INTERN- Vitals: Vitals: 06/17/24 1412 BP: 130/72 BP [...] EYE 4 TIMES DAILY ergocalciferol (VITAMIN D) 64063 UNIT Capsule ferrous sulfate 325 (65 Fe) [...] 1,330 760 - 4,000 cells/uL Final Absolute [place] Count 02/19/2024 426 160 - 1,200 cells/uL [...] 02/19/2024 3.0 2.9 - 4.4 G/DL Final [id number] 02/19/2024 0.3 0.0 - 0.4 G/DL Final [id number]-3-[id number] 02/19/2024 0.7 0.4 - 1.0 G/DL Final [...] SCAN WILL FOLLOW VIA COMPUTER, MAIL, OR COMMERCIAL SALES DIRECTOR DELIVERY. PDF 02/19/2024 . Final IMMUNOFIXATION RESULT, [...] Contact Info) Description 10/18/2024 1:30 PM MACHINE SIZER Office Visit [facility] [address] [address] Srinivasa Lee MD [address] [place] [address] documented as of this encounter Results * (ABNORMAL) SERUM FREE LIGHT CHAINS, [place] (06/17/2024 2:52 PM CDT) FREE KAPPA LT CHAINS 189.1(H) 2.9 - 20.7 mg/L [facility] FREE LAMBDA LT CHAINS 167.5(H) 4.2 - 27.6 mg/L [facility] KAPPA/LAMBDA RATIO 1.13 0.22 - 1.74 CANCER CASTING WHEEL OPERATOR [facility] 06/17/2024 2:52 PM CDT Narrative CANCER CASTING WHEEL OPERATOR [facility] - 06/18/2024 1:11 PM CDT Release to patient->Immediate Esther Oreilly APRN, EDUCATIONAL PSYCHOLOGIST LAB SEND OUTS F inal Result Performing Organization Address [facility] Co de Phone Number [facility] [place] [address], [place] [phone] * IMMUNOFIXATION, SERUM [place] (06/17/2024 2:52 PM CDT) IMMUNOFIXATION RESULT, SERUM COMMENT [facility] Comment:NO MONOCLONALITY DET ECTED. 06/17/2024 2:52 PM CDT Narrative [facility] - 06/18/2024 3:10 PM CDT TESTING PERFORMED AT: [] [facility], [address] [place] [address], [address], PHONE: [phone], SUPERVISOR PRODUCT INSPECTION: PEGGY MARCUS, PHD Release to patient->Immediate Esther Oreilly APRN, EDUCATIONAL PSYCHOLOGIST LAB SEND OUTS F inal Result Performing Organization Address City/[facility] Co de Phone Number [facility] [place] [address], [place] [phone] * (ABNORMAL) ELECTROPHORESIS W/ TOTAL PROTEIN SERUM (06/17/2024 2:52 PM CDT) PROTEIN, TOTAL, SERUM 6.1 6.0 - 8.5 G/DL [facility] ALBUMIN 2.7(L) 2.9 - 4.4 G/DL [facility] [id number]-1-[id number] 0.3 0.0 - 0.4 G/DL [facility] [id number]-9-[id number] 0.8 0.4 - 1.0 G/DL [facility] BETA GLOBULIN 0.8 0.7 - 1.3 G/DL [facility] GAMMA GLOBULIN 1.5 0.4 - 1.8 G/DL [facility] M-SPIKE NOT OBSERVED NOT OBSERVED G/DL [facility] GLOBULIN, TOTAL 3.4 2.2 - 3.9 G/DL [facility] A/G RATIO 0.8 0.7 - 1.7 [facility] TER SPECIALISTS [facility] PLEASE NOTE: [facility] CASTING WHEEL OPERATOR [facility] Comment: PROTEIN ELECTROPHORESIS SCAN WILL FOLLOW VIA COMPUTER, MAIL, OR COMMERCIAL SALES DIRECTOR DELIVERY. PDF . [facility] TER [facility] Blood 06/17/2024 2:52 PM CDT Narrative [facility] - 06/18/2024 3:10 PM CDT TESTING PERFORMED AT: [] [address], [address], PHONE: [phone], SUPERVISOR PRODUCT INSPECTION: PEGGY MARCUS, PHD Release to patient->Immediate us Esther Oreilly APRN, EDUCATIONAL PSYCHOLOGIST CHEMISTRY ORDERAB LES Final Result [facility] [address] [place] [address], * (ABNORMAL) IMMUNOGLOBULIN IGA, IGG & IGM QUANT (06/17/2024 2:52 PM CDT) IGG 1,383 635 - 1,741 mg/dL [facility] IGA 217 66 - 433 mg/dL [facility] IGM 462(H) 45 - 281 mg/dL [facility] Blood 06/17/2024 2:52 PM CDT [facility] - 06/18/2024 1:11 PM CDT Release to patient->Immediate Esther Oreilly APRN, CNP CHEMISTRY ORDERAB LES Final Result Performing Organization Address [facility] Co de Phone Number CANCER CASTING WHEEL OPERATOR [facility] [address] [place] [address], * RETICULOCYTE COUNT (RETIC) (06/17/2024 2:52 PM CDT) Reticulocyte count 1.70 0.50 - 1.70 % [facility] RET-He 29.80 28.20 - 36.60 pg [facility] CASTING WHEEL OPERATOR [facility] Comment: RET-He is a direct assessment of incorporation of iron into erythrocyte hemoglobin. It provides an indirect measure of the iron available for new erythropoiesis over past 2-4 days. Blood 06/17/2024 2:52 PM CDT [facility] - 06/17/2024 3:03 PM CDT Release to patient->Immediate Esther Oreilly APRN, CHERELLE HEMATOLOGY ORDERA BLES Final Result Performing Organization Address [facility] de Phone Number [facility] [address] [place] [address], * (ABNORMAL) IRON W/ IRON BINDING CAPACITY [place] (06/17/2024 2:52 PM CDT) IRON 25(L) 50 - 212 ug/dL [facility] CASTING WHEEL OPERATOR [facility] UIBC 194 155 - 355 ug/dL [facility] CASTING WHEEL OPERATOR [facility] TIBC 219(L) 261 - 478 ug/dl [facility] % Saturation 11(L) 20 - 50 % [facility] CASTING WHEEL OPERATOR [facility] 06/17/2024 2:52 PM CDT [facility] - 06/17/2024 3:35 PM CDT Release to patient->Immediate Esther Oreilly APRN, EDUCATIONAL PSYCHOLOGIST LAB SEND OUTS F inal Result Performing Organization Address [facility]/ZIP Co de Phone Number [facility] Cancer Care [address] [place] [address], [place] [phone] * FERRITIN (06/17/2024 2:52 PM CDT) Ferritin 126 11 - 307 ng/mL [facility] Blood 06/17/2024 2:52 PM CDT [facility] - 06/21/2024 7:57 AM CDT Release to patient->Immediate Esther Oreilly APRN, EDUCATIONAL PSYCHOLOGIST CHEMISTRY ORDERAB LES Final Result Performing Organization Address [facility] Co de Phone Number [facility] [place] [place] [address], [place] [phone] * FOLIC ACID (FOLATE) (06/17/2024 2:52 PM CDT) Folate 8.45 >=5.90 ng/mL [facility] Blood 06/17/2024 2:52 PM CDT [facility] - 06/21/2024 7:57 AM CDT Release to patient->Immediate IS THE PATIENT REQUIRED TO BE FASTING FOR 12 HOURS?->No Esther Oreilly APRN, EDUCATIONAL PSYCHOLOGIST CHEMISTRY ORDERAB LES Final Result Performing Organization Address [facility] Co de Phone Number [facility] [place] [place] [address], * (ABNORMAL) VITAMIN B12 (06/17/2024 2:52 PM CDT) Vitamin B12 1,009(H) 180 - 914 pg/mL [facility] Blood 06/17/2024 2:52 PM CDT Narrative [facility] - 06/21/2024 7:57 AM CDT Release to patient->Immediate Esther Oreilly APRN, EDUCATIONAL PSYCHOLOGIST CHEMISTRY ORDERAB LES Final Result [facility]CER CASTING WHEEL OPERATOR [facility] [place] [address], * LACTATE DEHYDROGENASE (LD) (06/17/2024 2:52 PM CDT) LDH 183 140 - 271 U/L [facility] Blood 06/17/2024 2:52 PM CDT Narrative [facility] - 06/17/2024 3:35 PM CDT Release to patient->Immediate Esther Oreilly MEDICAL FILE CLERK, EDUCATIONAL PSYCHOLOGIST CHEMISTRY ORDERAB LES Final Result Performing Organization Address City/[facility]/ZIP Co de Phone Number [facility] CASTING WHEEL OPERATOR [facility] [place] [address], * (ABNORMAL) CMP (COMPREHENSIVE METABOLIC PANEL) (06/17/2024 2:52 PM CDT) Glucose 227(H) 70 - 105 mg/dL [facility] Blood Urea Nitrogen 35(H) 7 - 25 mg/dL [facility] Creatinine 2.5(H) 0.6 - 1.2 mg/dL [facility] Sodium 134(L) 136 - 145 mEq/L [facility] Potassium 4.9 3.5 - 5.1 mEq/L [facility] Chloride 103 98 - 107 mEq/L [facility] Bicarbonate 20(L) 21 - 31 mEq/L [facility] Total Bilirubin 0.5 0.3 - 1.0 mg/dL [facility] Alk. Phosphatase 77 34 - 104 U/L [facility] Aspartate Aminotransferase 17 13 - 39 U/L [facility] Alanine Aminotransferase 8 7 - 52 U/L [facility] Total Protein 6.2(L) 6.4 - 8.9 g/dL [facility] Albumin 3.1(L) 3.5 - 5.7 g/dL [facility] Calcium 8.6 8.6 - 10.3 mg/dL [facility] Anion Gap 15.9(H) 7.0 - 15.0 mEq/L [facility] Globulin 3.1 2.0 - 3.5 g/dL [facility] EGFR 21(L) >60 ml/min/1. 73m2 [facility] Comment: This eGFR is calculated using 2020 CKD-EPI Creatinine equation without race modifier based on the NKF-ASN task force recommendations Blood 06/17/2024 2:52 PM CDT Narrative [facility] - 06/17/2024 3:35 PM CDT Release to patient->Immediate IS THE PATIENT REQUIRED TO BE FASTING FOR 8 HOURS?->No us Esther Oreilly APRN, CHERELLE CHEMISTRY ORDERAB LES Final Result [facility] [address] [place] [address], documented in this encounter Visit Diagnoses Diagnosis [...] documented as of this encounter Care Teams Professional Development Director Relationship Specialty Start Date End Date Jonatan Worley [address] [place] [address] PCP - General Family Medicine 07/12/20 Srinivasa Lee MD [address] [place] [address] Consulting Physician Oncology 07/12/20 documented as of this encounter
--- OUTSIDE RECORDS SUMMARY | 2024-08-29 04:33 | XMS_ITS | Clinical Summary ---
Author Organization [facility] Address [address] [place] [address] Phone Care Team Providers Care Configuration Manager Name Role Phone Jonatan Worley Primary Care Provider Srinivasa Lee MD Unavailable [phone] Allergies Active Allergy Reactions Criticality Noted Date Comments Penicillins Other (see Comments) 07/28/2020 'black out' Medications rosuvastatin (CRESTOR) 5 MG Tablet TAKE 1 TABLET BY MOUTH ONCE DAILY 07/12/2020 Active glimepiride (AMARYL) 4 MG Tablet TAKE 1 TABLET BY MOUTH ONCE DAILY 07/13/2020 Active ergocalciferol (VITAMIN D) 85669 UNIT Capsule 07/19/2020 Active dorzolamide (TRUSOPT) 2 [...] PM CDT Lab [facility] [address] [id number] Lab, Cc [place] Hypogammaglobulinemia (HCC); 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); Iron deficiency 06/17/2024 2:00 PM CDT Office Visit [facility] [address] [address] Esther Oreilly APRN, SUPERVISOR SHIPFITTERS Hypogammaglobulinemia (HCC) (Primary Dx); Anemia in stage [...] on file Legal Sex Female 11:51 AM DRY ROOM OPERATOR Gender Identity Not on file [...] st Contact Info) Description 10/18/2024 1:30 PM DRY ROOM OPERATOR Office Visit [facility] [address] [address] Srinivasa Lee MD [address] [place], [place] [id number] Health Maintenance Due Date Last Done Comments [...] CHAINS 189.1(H) 2.9 - 20.7 mg/L CANCER FILTER ASSEMBLER FREE LAMBDA LT CHAINS 167.5(H) 4.2 - 27.6 mg/L CANCER FILTER ASSEMBLER KAPPA/LAMBDA RATIO 1.13 0.22 - 1.74 CANCER FILTER ASSEMBLER 06/17/2024 2:52 PM CDT Narrative CANCER FILTER ASSEMBLER - 06/18/2024 1:11 PM CDT Release to patient->Immediate us Esther Oreilly PUBLIC WORKS TECHNICIAN, SUPERVISOR [employer]TER[employer] LAB SEND OUTS F inal Result [facility]TER ASSEMBL[facility] [place] [address], * (ABNORMAL) IRON W/ IRON BINDING CAPACITY [place] (06/17/2024 2:52 PM CDT) IRON 25(L) 50 - 212 ug/dL CANCER FILTER ASSEMBLER [facility] UIBC 194 155 - 355 ug/dL CANC[facility] FILTER ASSEMBL[facility] TIBC 219(L) 261 - 478 ug/dl [facility] FILTER ASSEMBL[facility] % Saturation 11(L) 20 - 50 % CANCER FILTER ASSEMBLER [facility] 06/17/2024 2:52 PM CDT Narrative CANCER FILTER ASSEMBL[facility] - 06/17/2024 3:35 PM CDT Release to patient->Immediate Esther Oreilly APRN, SUPERVISOR [employer]TER[employer] LAB SEND OUTS F inal Result Performing Organization Address [facility] Co de Phone Number CANCER FILTER ASSEMBLER [facility] [address] [address], [place] [phone] * IMMUNOFIXATION, SERUM [place] (06/17/2024 2:52 PM CDT) IMMUNOFIXATION RESULT, SERUM COMMENT [facility] FILTER ASSEMBL[facility] Comment:NO MONOCLONALITY DET ECTED. 06/17/2024 2:52 PM CDT Narrative CANCER FILTER ASSEMBLER - 06/18/2024 3:10 PM CDT TESTING PERFORMED AT: [] [facility], [address] [place] [address], [address], PHONE: [phone], DESK REPRESENTATIVE: PEGGY MARCUS, PHD Release to patient->Immediate Esther Oreilly APRN, SUPERVISOR [employer]TER[employer] LAB SEND OUTS F inal Result Performing Organization Address [facility]/ZIP Co de Phone Number CANCER FILTER ASSEMBLER [facility] [address] [place] [address], [place] [phone] * (ABNORMAL) CBC WITH AUTO DIFF [place] (06/17/2024 2:52 PM CDT) WBC 6.5 4.0 - 10.0 10*3/uL CANCER FILTER ASSEMBLER [facility] HGB 9.4(L) 11.2 - 15.7 g/dL [facility] FILTER ASSEMBL[facility] HCT 30.2(L) 34.1 - 44.9 % [facility] FILTER ASSEMBL[facility] PLT 177 163 - 369 10*3/uL CANC[facility] FILTER ASSEMBLER [facility] MPV 9.2(L) 9.4 - 12.4 fL CANC[facility] FILTER ASSEMBLER [facility] RBC 3.40(L) 3.93 - 5.22 10*6/uL CANCER FILTER ASSEMBLER [facility] MCV 89 79 - 95 fL CANCER FILTER ASSEMBLER [facility] MCH 27.6 25.6 - 32.2 pg CANCER FILTER ASSEMBLER [facility] MCHC 31.1(L) 32.2 - 36.5 g/dL [facility] FILTER ASSEMBL[facility] RDW 15.4(H) 11.6 - 14.4 % CANC[facility] FILTER ASSEMBL[facility] Neutrophils % 72.1(H) 36.0 - 66.0 % [facility] FILTER ASSEMBL[facility] Lymphocytes % 17.4(L) 19.0 - 40.0 % [facility] FILTER ASSEMBLER [facility] Monocytes % 6.2 4.1 - 12.1 % CAN[facility] FILTER ASSEMBLER [facility] Eosinophils % 3.2 0.0 - 3.5 % [facility] FILTER ASSEMBL[facility] Basophils % 0.5 0.0 - 1.0 % CANCER FILTER ASSEMBLER [facility] Absolute Neutrophils 4.7 1.4 - 6.6 10*3/uL CANCER FILTER ASSEMBLER [facility] Absolute Lymphocytes 1.1 0.8 - 4.0 10*3/uL CANCER FILTER ASSEMBLER Absolute Monocytes 0.4 0.2 - 1.2 10*3/uL [facility] FILTER ASSEMBLER [facility] Absolute Eosinophils 0.2 0.0 - 0.4 10*3/uL CAN[facility] FILTER ASSEMBLER [facility] Absolute Basophils 0.0 0.0 - 0.1 10*3/uL [facility] FILTER ASSEMBLER [facility] 06/17/2024 2:52 PM CDT us Esther Oreilly PUBLIC WORKS TECHNICIAN, SUPERVISOR [employer]FITTER[employer] LAB SEND OUTS F inal Result [facility]CER FILTER ASSEMBLER [facility] [address] [place] [address], * (ABNORMAL) VITAMIN B12 (06/17/2024 2:52 PM CDT) Vitamin B12 1,009(H) 180 - 914 pg/mL CANCER FILTER ASSEMBLER Blood 06/17/2024 2:52 PM CDT [facility] CANCER FILTER ASSEMBLER - 06/21/2024 7:57 AM CDT Release to patient->Immediate Esther Oreilly APRN, CNP CHEMISTRY ORDERAB LES Final Result Performing Organization Address [facility] de Phone Number [facility] [place] [address], * RETICULOCYTE COUNT (RETIC) (06/17/2024 2:52 PM CDT) Reticulocyte count 1.70 0.50 - 1.70 % [facility] FILTER ASSEMBLER RET-He 29.80 28.20 - 36.60 pg [facility] Comment: RET-He is a direct assessment of incorporation of iron into erythrocyte hemoglobin. It provides an indirect measure of the iron available for new erythropoiesis over past 2-4 days. Blood 06/17/2024 2:[address] [facility] - 06/17/2024 3:03 PM CDT Release to patient->Immediate Esther Oreilly APRN, CNP HEMATOLOGY ORDERA BLES Final Result Performing Organization Address [facility] de Phone Number [facility] FILTER [place] [address], * LACTATE DEHYDROGENASE (LD) (06/17/2024 2:52 PM CDT) LDH 183 140 - 271 U/L [facility] FILTER ASSEMBLER Blood 06/17/2024 2:[address] [facility] - 06/17/2024 3:35 PM CDT Release to patient->Immediate Esther Oreilly PUBLIC WORKS TECHNICIAN, SUPERVISOR [employer]TER[employer] CHEMISTRY ORDERAB LES Final Result Performing Organization Address [facility]/ZIP Co de Phone Number CANCER FILTER ASSEMBLER [facility] [address] [place] [address], [place] [phone] * (ABNORMAL) IMMUNOGLOBULIN IGA, IGG & IGM QUANT (06/17/2024 2:52 PM CDT) IGG 1,383 635 - 1,741 mg/dL CANCER FILTER ASSEMBLER IGA 217 66 - 433 mg/dL [facility] FILTER ASSEMBLER IGM 462(H) 45 - 281 mg/dL [facility] FILTER ASSEMBLER [facility] Blood 06/17/2024 2:52 PM CDT [facility] FILTER ASSEMBLER - 06/18/2024 1:11 PM CDT Release to patient->Immediate Esther Oreilly APRN, SUPERVISOR SH[employer]FITTERS CHEMISTRY ORDERAB LES Final Result Performing Organization Address [facility] Co de Phone Number CANCER FILTER ASSEMBLER [facility] [place] [address], [place] [phone] * FOLIC ACID (FOLATE) (06/17/2024 2:52 PM CDT) Folate 8.45 >=5.90 ng/mL [facility] FILTER ASSEMBLER Blood 06/17/2024 2:52 PM CDT [facility] FILTER ASSEMBLER - 06/21/2024 7:57 AM CDT Release to patient->Immediate IS THE PATIENT REQUIRED TO BE FASTING FOR 12 HOURS?->No Esther Oreilly APRN, SUPERVISOR [employer]FITTERS CHEMISTRY ORDERAB LES Final Result Performing Organization Address [facility]/ZIP Co de Phone Number CANCER FILTER ASSEMBLER [facility] [place] [address], [place] [phone] * FERRITIN (06/17/2024 2:52 PM CDT) Ferritin 126 11 - 307 ng/mL [facility] FILTER ASSEMBLER [facility] Blood 06/17/2024 2:52 PM CDT Narrative CANCER FILTER ASSEMBLER [facility] - 06/21/2024 7:57 AM CDT Release to patient->Immediate Esther Oreilly PUBLIC WORKS TECHNICIAN, SUPERVISOR [employer]TER[employer] CHEMISTRY ORDERAB LES Final Result [facility]CER FILTER ASSEMBLER [facility] [address] [place] [address], * (ABNORMAL) ELECTROPHORESIS W/ TOTAL PROTEIN SERUM (06/17/2024 2:52 PM CDT) PROTEIN, TOTAL, SERUM 6.1 6.0 - 8.5 G/DL CANCER FILTER ASSEMBLER [facility] ALBUMIN 2.7(L) 2.9 - 4.4 G/DL CANCER FILTER ASSEMBLER [facility] [id number]-5-[id number] 0.3 0.0 - 0.4 G/DL CANCER FILTER ASSEMBLER [facility] [id number]-7-[id number] 0.8 0.4 - 1.0 G/DL CANCER FILTER ASSEMBLER [facility] BETA GLOBULIN 0.8 0.7 - 1.3 G/DL CANCER FILTER ASSEMBLER [facility] GAMMA GLOBULIN 1.5 0.4 - 1.8 G/DL CANCER FILTER ASSEMBLER [facility] M-SPIKE NOT OBSERVED NOT OBSERVED G/DL CANCER FILTER ASSEMBLER [facility] GLOBULIN, TOTAL 3.4 2.2 - 3.9 G/DL CANCER FILTER ASSEMBLER [facility] A/G RATIO 0.8 0.7 - 1.[address] SPECIALISTS [facility] PLEASE NOTE: COMMENT CANCER FILTER ASSEMBLER [facility] Comment: PROTEIN ELECTROPHORESIS SCAN WILL FOLLOW VIA COMPUTER, MAIL, OR LOOM SETTER DELIVERY. PDF . [facility]ER [facility]KH[facility]EP [facility] Blood 06/17/2024 2:52 PM CDT Narrative CANCER FILTER ASSEMBLER [facility] - 06/18/2024 3:10 PM CDT TESTING PERFORMED AT: [] [facility], [address] [place] [address], [place], [address], PHONE: [phone], DESK REPRESENTATIVE: PEGGY MARCUS, PHD Release to patient->Immediate us Esther Oreilly APRN, CHERELLE CHEMISTRY ORDERAB LES Final Result [facility] FILTER ASSEMBLER [facility] [place] [address], [place] [phone] * (ABNORMAL) CMP (COMPREHENSIVE METABOLIC PANEL) (06/17/2024 2:52 PM CDT) Glucose 227(H) 70 - 105 mg/dL [facility] FILTER ASSEMBLER Blood Urea Nitrogen 35(H) 7 - 25 mg/dL [facility] Creatinine 2.5(H) 0.6 - 1.2 mg/dL [facility] Sodium 134(L) 136 - 145 mEq/L [facility] Potassium 4.9 3.5 - 5.1 mEq/L [facility] Chloride 103 98 - 107 mEq/L [facility] Bicarbonate 20(L) 21 - 31 mEq/L [facility] Total Bilirubin 0.5 0.3 - 1.0 mg/dL [facility] Alk. Phosphatase 77 34 - 104 U/L [facility] Aspartate Aminotransferase 17 13 - 39 U/L [facility] Alanine Aminotransferase 8 7 - 52 U/L [facility] Total Protein 6.2(L) 6.4 - 8.9 g/dL [facility] Albumin 3.1(L) 3.5 - 5.7 g/dL [facility] Calcium 8.6 8.6 - 10.3 mg/dL [facility] Anion Gap 15.9(H) 7.0 - 15.0 mEq/L [facility] Globulin 3.1 2.0 - 3.5 g/dL [facility] EGFR 21(L) >60 ml/min/1. 73m2 [facility] Comment: This eGFR is calculated using 2020 CKD-EPI Creatinine equation without race modifier based on the NKF-ASN task force recommendations Blood 06/17/2024 2:52 PM CDT Narrative [facility]TER ASSEM[facility] - 06/17/2024 3:35 PM CDT Release to patient->Immediate IS THE PATIENT REQUIRED TO BE FASTING FOR 8 HOURS?->No us Esther Oreilly PUBLIC WORKS TECHNICIAN, SUPERVISOR [employer]FITTER[employer] CHEMISTRY ORDERAB LES Final Result CANCER FILTER ASSEMBLER [facility] [place] [address], from Last 3 Months Insurance [place]OVAR [id number] Care Teams Configuration Manager Relationship Specialty Start Date End Date Meir Jonatan [address] [place] [address] PCP - General Family Medicine 07/12/20 Srinivasa Lee MD [address] [place] [phone] Consulting Physician Oncology 07/12/20
--- OUTSIDE RECORDS SUMMARY | 2024-08-29 04:33 | XMS_ITS | Encounter Summary ---
Author Organization [employer] Care Team Providers Care Paint Pourer Name Role Phone Jonatan Worley Primary Care Provider [phone] Srinivasa Lee MD Unavailable [phone] Encounter Details Date Type Department Care Team [...] on file Legal Sex Female 11:51 AM SOCIAL WORK MANAGER Gender Identity Not on file Sexual [...] st Contact Info) Description 10/18/2024 1:30 PM SOCIAL WORK MANAGER Office Visit [facility] [address] [address] Srinivasa Lee MD [facility] [address] [phone] documented as of this encounter Visit Diagnoses Not on filedocumented in this encounter Additional Health Concerns Assessment Noted Time PHQ-9 Depression Total Score: 0 03/08/20 21 11:06 AM CDT documented as of this encounter Care Teams Paint Pourer Relationship Specialty Start Date End Date Jonatan Worley [address] [facility] [place] [address] PCP - General Family Medicine 07/12/20 Srinivasa Lee MD [address] [place] [address] Consulting Physician Oncology 07/12/20 documented as of this encounter
--- OUTSIDE RECORDS SUMMARY | 2024-08-29 04:33 | XMS_ITS | Encounter Summary ---
Author Organization [facility] Address [address] [place] [address] Phone Care Team Providers Care Arc Furnace Operator Name Role Phone Jonatan Worley Primary Care Provider [phone] Srinivasa Lee MD Unavailable Reason for Visit * Reason Onset Date Comments Medication Refill 04/14/2023 Encounter Details Date Type Department Care Team (Late st Contact Info) Description 04/14/2023 Refill [facility] [address] [address] Srinivasa Lee MD [address] [address] Medication Refill Social History Tobacco [...] on file Legal Sex Female 11:51 AM PERSONAL COMPANION Gender Identity Not on file Sexual Orientation [...] st Contact Info) Description 10/18/2024 1:30 PM PERSONAL COMPANION Office Visit [facility] [place] [address] [place] [phone] Srinivasa Lee MD [address] [facility] [address] [id number] documented as of this encounter Visit Diagnoses Not on filedocumented in this encounter Additional Health Concerns Assessment Noted Time PHQ-9 Depression Total Score: 0 03/08/20 11:06 AM CDT documented as of this encounter Care Teams Arc Furnace Operator Relationship Specialty Start Date End Date Jonatan Worley [address] [place] [address] PCP - General Family Medicine 07/12/20 Srinivasa Lee MD [address] [place] [phone] Consulting Physician Oncology 07/12/20 documented as of this encounter
--- OUTSIDE RECORDS SUMMARY | 2024-08-29 04:33 | XMS_ITS | Encounter Summary ---
Author Organization [facility] Address [address] [place] [address] Phone Care Team Providers Care Mixing Machine Tender Cork Gasket Name Role Phone Jonatan Worley Primary Care Provider [phone] Srinivasa Lee MD Unavailable [phone] Reason for Visit * Reason Comments Follow-up Encounter Details Date Type Department Care Team (Latest Contact Info) Description 12/06/2022 9:30 AM CDT Office Visit [facility] [address] [address] Buzz Sales, RICCI Hypogammaglobulinemia (HCC) [...] on file Legal Sex Female 11:51 AM [employer]ENER [employer] Gender Identity Not on file Sexual Orientation [...] : 1960 [facility] Encounter Date: 12/06/2022 Care Team: Current Providers PCP: Jonatan Worley Care Team Provider: Srinivasa Lee MD Encounter Provider: Buzz Sales PAC Referring Provider: not found Physician [employer] Academic Coach: Buzz Sales PAC HISTORY OF PRESENT ILLNESS: [...] EYE 4 TIMES DAILY ergocalciferol (VITAMIN D) 35311 UNIT Capsule TAKE 1 CAPSULE BY MOUTH [...] 2,029 760 - 4,000 cells/uL Final Absolute Harrison Count 09/06/2022 580 160 - 1,200 cells/uL [...] st Contact Info) Description 10/18/2024 1:30 PM [employer]ENER [employer] Office Visit [facility] [address] [phone] Srinivasa Lee MD [address] [place] [address] [facility] [address] [place], [place] [phone] documented as of this encounter Results * VITAMIN B12 (03/07/2023 9:32 AM CDT) Vitamin B12 267 180 - 914 pg/mL [facility] [place] Blood 03/07/2023 9:32 AM CDT Narrative [facility] - 03/10/2023 2:37 PM CDT Release to patient->Immediate Buzz Sales PAC CHEMISTRY ORDERABLES Final Result [facility] [place] [facility] [address] [place] [address], * FERRITIN (03/07/2023 9:32 AM CDT) Ferritin 49 11 - 307 ng/mL [facility] Blood 03/07/2023 9:32 AM CDT Narrative [facility] [place] - 03/10/2023 2:37 PM CDT Release to patient->Immediate us Buzz Sales PAC CHEMISTRY ORDERABLES Final Result [facility] [place] [facility] [place] [address], [place] [phone] * (ABNORMAL) IRON W/ IRON BINDING CAPACITY [place] (03/07/2023 9:32 AM CDT) IRON 44(L) 50 - 212 ug/dL [facility] UIBC 205 155 - 355 ug/dL [facility] TIBC 249(L) 261 - 478 ug/dl [facility] % Saturation 18(L) 20 - 50 % [facility] Blood 03/07/2023 9:32 AM CDT Located Within [facility] - 03/07/2023 11:14 AM CDT Release to patient->Immediate us Buzz Sales PAC LAB SEND OUTS Final Resu lt Performing Organization Address [facility] Co de Phone Number [facility] [address] [place] [address], * LACTATE DEHYDROGENASE (LD) (03/07/2023 9:32 AM CDT) LDH 144 140 - 271 U/L [facility] Blood 03/07/2023 9:32 AM CDT Located Within [facility] - 03/07/2023 11:14 AM CDT Release to patient->Immediate us Buzz Sales PAC CHEMISTRY ORDERABLES Final Result Performing Organization Address [facility] Co de Phone Number [facility] [address] [place] [address], [place] [phone] * (ABNORMAL) CMP (COMPREHENSIVE METABOLIC PANEL) (03/07/2023 9:32 AM CDT) Glucose 192(H) 70 - 105 mg/dL [facility] Blood Urea Nitrogen 39(H) 7 - 25 mg/dL [facility] Creatinine 2.5(H) 0.6 - 1.2 mg/dL [facility] Sodium 138 136 - 145 mEq/L [facility] Potassium 4.8 3.5 - 5.1 mEq/L [facility] Chloride 109(H) 98 - 107 mEq/L [facility] Bicarbonate 20(L) 21 - 31 mEq/L [facility] Total Bilirubin 0.3 0.3 - 1.0 mg/dL [facility] Alk. Phosphatase 75 34 - 104 U/L [facility] Aspartate Aminotransferase 15 13 - 39 U/L [facility] Alanine Aminotransferase 11 7 - 52 U/L [facility] Total Protein 5.4(L) 6.4 - 8.9 g/dL [facility] Albumin 3.3(L) 3.5 - 5.7 g/dL [facility] Calcium 8.5(L) 8.6 - 10.3 mg/dL [facility] Anion Gap 13.8 7.0 - 15.0 mEq/L [facility] Globulin 2.1 2.0 - 3.5 g/dL [facility] EGFR 21(L) >60 ml/min/1. 73m2 [facility] Comment: This eGFR is calculated using 2020 CKD-EPI Creatinine equation without race modifier based on the NKF-ASN task force recommendations Blood 03/07/2023 9:32 AM CDT Narrative [facility] - 03/07/2023 11:13 AM CDT Release to patient->Immediate IS THE PATIENT REQUIRED TO BE FASTING FOR 8 HOURS?->No Buzz Sales PAC CHEMISTRY ORDERABLES Final Result [facility] [address] [place] [address], * (ABNORMAL) COMPLETE BLOOD COUNT (CBC) WITH DIFF (03/07/2023 9:32 AM CDT) WBC 10.5(H) 4.0 - 10.0 10*3/uL [facility] HGB 9.7(L) 11.2 - 15.7 g/dL [facility] HCT 30.4(L) 34.1 - 44.9 % [facility] PLT 195 163 - 369 10*3/uL [facility] MPV 11.5 9.4 - 12.4 fL [facility] RBC 3.30(L) 3.93 - 5.22 10*6/uL [facility] MCV 92 79 - 95 fL [facility] MCH 29.4 25.6 - 32.2 pg [facility] MCHC 31.9(L) 32.2 - 36.5 g/dL [facility] RDW 12.7 11.6 - 14.4 % [facility] Absolute Neutrophil Count 8,054 cells/uL [facility] Absolute Seg Count 7,950(H) 1,440 - 6,600 cells/uL [facility] Absolute Band Count 105 0 - 800 cells/uL [facility] Absolute Lymph Count 1,046 760 - 4,000 cells/uL [facility] Absolute Harrison Count 314 160 - 1,200 cells/uL [facility] Absolute Eos Count 1,046(H) 0 - 300 cells/uL [facility] Segmented Neutrophils 76(H) 36 - 66 % [facility] Band Neutrophils 1 0 - 8 % [facility] Lymphocytes 10(L) 19 - 40 % [facility] Monocytes 3(L) 4 - 12 % [facility] Eosinophils 10(H) 0 - 3 % [facility] WBC Estimate High [facility] Platelet Estimate Normal [facility] RBC Morphology Normal [facility] Blood 03/07/2023 9:32 AM CDT Narrative [facility] - 03/07/2023 1:22 PM CDT Release to patient->Immediate us Buzz Sales PAC HEMATOLOGY ORDERABLES Kym noman Result [facility] [place] [address] [place] [address], [place] [phone] * (ABNORMAL) BETA 2 MICROGLOBULIN (12/06/2022 10:18 AM CDT) [id number] 9.72(H) 0.97 - 1.84 mg/L [facility] [place] Blood 12/06/2022 10:1 8 AM CDT Narrative [facility] [place] - 12/06/2022 2:06 PM CDT Release to patient->Immediate Buzz Sales PAC CHEMISTRY ORDERABLES Final Result [facility] [place] [facility] [address] [place] [address], [place] [phone] * (ABNORMAL) FREE KAPPA & LAMBDA LIGHT [...] 8:14 PM CDT TESTING PERFORMED AT: [] [facility], [address] [place] [address], [place], [address], PHONE: [phone], RADIO RECORDER: PEGGY MARCUS, PHD Release to patient->Immediate Buzz Sales PAC CHEMISTRY ORDERABLES Final Result [facility] * IMMUNOFIXATION, SERUM [place] (12/06/2022 10:18 AM CDT) Pathologist [facility] IMMUNOFIXATION RESULT, SERUM COMMENT [facility] Comment:NO MONOCLONALITY DET ECTED. 12/06/2022 10:1 8 AM CDT Narrative [facility] - 12/09/2022 1:08 PM CDT TESTING PERFORMED AT: [] [facility], [address] [place] [address], [address], PHONE: [phone], RADIO RECORDER: PEGGY MARCUS, PHD Release to patient->Immediate Buzz Sales [facility] LAB SEND OUTS Final Resu lt [facility] * (ABNORMAL) ELECTROPHORESIS W/ TOTAL PROTEIN SERUM (12/06/2022 10:18 AM CDT) Pathologist [facility] PROTEIN, TOTAL, SERUM 5.9(L) 6.0 - 8.5 G/DL [facility] ALBUMIN 3.1 2.9 - 4.4 G/DL [facility] ROUIC-8-[id number] 0.3 0.0 - 0.4 G/DL [facility] AIMRT-9-[id number] 0.8 0.4 - 1.0 G/DL [facility] BETA GLOBULIN 0.9 0.7 - 1.3 G/DL [facility] GAMMA GLOBULIN 0.7 0.4 - 1.8 G/DL [facility] M-SPIKE NOT OBSERVED NOT OBSERVED G/DL [facility] GLOBULIN, TOTAL 2.8 2.2 - 3.9 G/DL [facility] A/G RATIO 1.1 0.7 - 1.7 [facility] PLEASE NOTE: [facility] Comment: PROTEIN ELECTROPHORESIS SCAN WILL FOLLOW VIA COMPUTER, MAIL, OR BARK SKINNER DELIVERY. PDF . [facility] Blood 12/06/2022 10:1 8 AM CDT Narrative [facility] - 12/09/2022 3:09 PM CDT TESTING PERFORMED AT: [] [facility], [address], [place], [address], PHONE: [phone], RADIO RECORDER: PEGGY MARCUS, PHD Release to patient->Immediate Buzz Sales PAC CHEMISTRY ORDERABLES Final Result [facility] * IMMUNOGLOBULIN IGA, IGG & IGM QUANT (12/06/2022 10:18 AM CDT) IGG 762 635 - 1,741 mg/dL [facility] IGA 210 66 - 433 mg/dL [facility] IGM 57 45 - 281 mg/dL [facility] Blood 12/06/2022 10:1 8 AM CDT Located Within [facility] - 12/06/2022 2:24 PM CDT Release to patient->Immediate Buzz Sales PAC CHEMISTRY ORDERABLES Final Result Performing Organization Address [facility]/ZIP Co de Phone Number [facility] [address] [place] [address], [place] [phone] * VITAMIN B12 (12/06/2022 10:18 AM CDT) Vitamin B12 265 180 - 914 pg/mL [facility] Blood 12/06/2022 10:1 8 AM CDT Located Within [facility] - 12/06/2022 2:36 PM CDT Release to patient->Immediate Buzz Sales PAC CHEMISTRY ORDERABLES Final Result Performing Organization Address City/[facility]/ZIP Co de Phone Number [facility] [address] [place] [address], [place] [phone] * FERRITIN (12/06/2022 10:18 AM CDT) Ferritin 52 11 - 307 ng/mL [facility] Blood 12/06/2022 10:1 8 AM CDT Located Within [facility] [place] - 12/06/2022 2:36 PM CDT Release to patient->Immediate us Buzz Sales PAC CHEMISTRY ORDERABLES Final Result [facility] [place] [address], [place] [phone] * (ABNORMAL) IRON W/ IRON BINDING CAPACITY [place] (12/06/2022 10:18 AM CDT) IRON 49(L) 50 - 212 ug/dL [facility] UIBC 212 155 - 355 ug/dL [facility] TIBC 261 261 - 478 ug/dl [facility] % Saturation 19(L) 20 - 50 % [facility] Blood 12/06/2022 10:1 8 AM CDT Located Within [facility] - 12/06/2022 11:12 AM CDT Release to patient->Immediate Buzz Sales PAC LAB SEND OUTS Final Resu lt Performing Organization Address [facility]/ZIP Co de Phone Number [facility] [place] [address], [place] [phone] * LACTATE DEHYDROGENASE (LD) (12/06/2022 10:18 AM CDT) LDH 162 140 - 271 U/L [facility] Blood 12/06/2022 10:1 8 AM CDT Located Within [facility] - 12/06/2022 11:12 AM CDT Release to patient->Immediate us Buzz Sales PAC CHEMISTRY ORDERABLES Final Result Performing Organization Address [facility]/ZIP Co de Phone Number [facility] [address] [place] [address], [place] [phone] * (ABNORMAL) CMP (COMPREHENSIVE METABOLIC PANEL) (12/06/2022 10:18 AM CDT) Glucose 230(H) 70 - 105 mg/dL [facility] Blood Urea Nitrogen 53(H) 7 - 25 mg/dL [facility] Creatinine 2.9(H) 0.6 - 1.2 mg/dL [facility] Sodium 138 136 - 145 mEq/L [facility] Potassium 5.6(HH) 3.5 - 5.1 mEq/L [facility] Comment: Critical Result reported to Ely Lai on 12/06/2022 11:13 by ? Kaur Waller. Results were read back to caller. Chloride 109(H) 98 - 107 mEq/L [facility] Bicarbonate 22 21 - 31 mEq/L [facility] Total Bilirubin 0.4 0.3 - 1.0 mg/dL [facility] Alk. Phosphatase 64 34 - 104 U/L [facility] Aspartate Aminotransferase 16 13 - 39 U/L [facility] Alanine Aminotransferase 11 7 - 52 U/L [facility] Total Protein 5.8(L) 6.4 - 8.9 g/dL [facility] Albumin 3.5 3.5 - 5.7 g/dL [facility] Calcium 8.9 8.6 - 10.3 mg/dL [facility] Anion Gap 12.6 7.0 - 15.0 mEq/L [facility] Globulin 2.3 2.0 - 3.5 g/dL [facility] EGFR 18(L) >60 ml/min/1. 73m2 [facility] Comment: This eGFR is calculated using 2020 CKD-EPI Creatinine equation without race modifier based on the NKF-ASN task force recommendations Blood 12/06/2022 10:1 8 AM CDT Narrative [facility] - 12/06/2022 11:13 AM CDT Release to patient->Immediate IS THE PATIENT REQUIRED TO BE FASTING FOR 8 HOURS?->No us Buzz Sales PAC CHEMISTRY ORDERABLES Final Result [facility] [address] [place] [address], * (ABNORMAL) COMPLETE BLOOD COUNT (CBC) WITH DIFF (12/06/2022 10:18 AM CDT) WBC 12.2(H) 4.0 - 10.0 10*3/uL [facility] HGB 10.4(L) 11.2 - 15.7 g/dL [facility] HCT 30.7(L) 34.1 - 44.9 % [facility] PLT 194 163 - 369 10*3/uL [facility] MPV 11.1 9.4 - 12.4 fL [facility] RBC 3.52(L) 3.93 - 5.22 10*6/uL [facility] MCV 87 79 - 95 fL [facility] MCH 29.5 25.6 - 32.2 pg [facility] MCHC 33.9 32.2 - 36.5 g/dL [facility] RDW 12.4 11.6 - 14.4 % [facility] Absolute Neutrophil Count 9,485 cells/uL [facility] Absolute Seg Count 9,485(H) 1,440 - 6,600 cells/uL [facility] Absolute Lymph Count 973 760 - 4,000 cells/uL [facility] Absolute Harrison Count 608 160 - 1,200 cells/uL [facility] Absolute Eos Count 1,094(H) 0 - 300 cells/uL [facility] Segmented Neutrophils 78(H) 36 - 66 % [facility] Lymphocytes 8(L) 19 - 40 % [facility] Monocytes 5 4 - 12 % [facility] Eosinophils 9(H) 0 - 3 % [facility] WBC Estimate High [facility] Platelet Estimate Normal [facility] RBC Morphology Normal [facility] Blood 12/06/2022 10:1 8 AM CDT Narrative [facility] - 12/06/2022 1:29 PM CDT Release to patient->Immediate Buzz Sales PAC HEMATOLOGY ORDERABLES Kym l Result [facility] [place] [address] [place], [place] [address] [phone] documented in this encounter Visit Diagnoses Diagnosis [...] of this encounter Care Teams Mixing Machine Tender Cork Gasket Relationship Specialty Start Date End Date Jonatan Worley [address] [place] [address] PCP - General Family Medicine 07/12/20 Srinivasa Lee MD [address] [place] [address] Consulting Physician Oncology 07/12/20 documented as of this encounter
--- OUTSIDE RECORDS SUMMARY | 2024-08-29 04:33 | XMS_ITS | Encounter Summary ---
Author Organization [facility] Address [address] [place] [address] Phone Care Team Providers Care Data Integrity Specialist Name Role Phone Jonatan Worley Primary Care Provider Srinivasa Lee MD Unavailable Reason for Visit * Reason Comments Follow-up Encounter Details Date Type Department Care Team (Late st Contact Info) Description 02/19/2024 2:00 PM CDT Office Visit [facility] [address] [place] [address] Rosalina Vázquez, FINANCIAL SERVICES INTERN, AEROSPACE CONTR[employer] WARNING [employer]S [address] [place] [address] Anemia in stage 3b chronic [...] on file 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 MD Rosalina Arriola, DNP, MILK DELIVERY DRIVER-/[facility] Vitals: Vitals: 02/19/24 1354 BP: 122/70 BP [...] EYE 4 TIMES DAILY ergocalciferol (VITAMIN D) 90260 UNIT Capsule ferrous sulfate 325 (65 Fe) [...] st Contact Info) Description 10/18/2024 1:30 PM BRONZE PLATER Office Visit [facility] [address] [place] [id number] Srinivasa Lee MD [facility] [facility] [address] [place], [place] [address] documented as of this encounter Results * (ABNORMAL) IMMUNOGLOBULIN IGA, IGG & IGM QUANT (02/19/2024 2:23 PM CDT) Pathologist [facility] IGG 997 635 - 1,741 mg/dL [facility] IGA 196 66 - 433 mg/dL [facility] IGM 312(H) 45 - 281 mg/dL CANCER AGENCY SERVICE COORDINATOR [facility] Blood 02/19/2024 2:23 PM CDT Narrative CANCER AGENCY SERVICE COORDINATOR [facility] - 02/20/2024 4:01 PM CDT Release to patient->Immediate us Rosalina Vázquez APRN, AEROSPACE CONTROL [employer] WARNING SYSTEMS CHEMISTRY ORDERABLE S Final Result CANCER AGENCY SERVICE COORDINATOR [facility] [address] [place] [address], * IMMUNOFIXATION, SERUM [place] (02/19/2024 2:23 PM CDT) IMMUNOFIXATION RESULT, SERUM COMMENT: CANCER AGENCY SERVICE COORDINATOR [facility] Comment: PRESENCE OF MONOCLONAL PROTEIN IS UNCLEAR AT THIS TIME. SUGGEST REPEAT IN 3 TO 6 MONTHS IF CLINICALLY INDICATED. 02/19/2024 2:23 PM CDT Narrative [facility] - 02/20/2024 3:09 PM CDT TESTING PERFORMED AT: [] [facility], [address] [place] [address], [address], PHONE: [phone], PATRON ATTENDANT: PEGGY MARCUS, PHD Release to patient->Immediate Rosalina Vázquez APRN, CNP LAB SEND OUTS Fin al Result CANCER AGENCY SERVICE COORDINATOR [facility] [address] [place] [address], [place] [phone] * (ABNORMAL) ELECTROPHORESIS W/ TOTAL PROTEIN SERUM (02/19/2024 2:23 PM CDT) PROTEIN, TOTAL, SERUM 5.7(L) 6.0 - 8.5 G/DL CANCER AGENCY SERVICE COORDINATOR [facility] ALBUMIN 3.0 2.9 - 4.4 G/DL CANCER AGENCY SERVICE COORDINATOR [facility] [id number] 0.3 0.0 - 0.4 G/DL CANCER AGENCY SERVICE COORDINATOR [facility] [id number] 0.7 0.4 - 1.0 G/DL CANCER AGENCY SERVICE COORDINATOR [facility] BETA GLOBULIN 0.7 0.7 - 1.3 G/DL CANCER AGENCY SERVICE COORDINATOR [facility] GAMMA GLOBULIN 1.1 0.4 - 1.8 G/DL CANCER AGENCY SERVICE COORDINATOR [facility] M-SPIKE NOT OBSERVED NOT OBSERVED G/DL CANCER AGENCY SERVICE COORDINATOR [facility] GLOBULIN, TOTAL 2.7 2.2 - 3.9 G/DL CANCER AGENCY SERVICE COORDINATOR [facility] A/G RATIO 1.1 0.7 - 1.7 [facility] [address] [facility] PLEASE NOTE: COMMENT CANCER AGENCY SERVICE COORDINATOR [facility] Comment: PROTEIN ELECTROPHORESIS SCAN WILL FOLLOW VIA COMPUTER, MAIL, OR ULTRASOUND TECHNOLOGIST SONOGRAPHER DELIVERY. PDF . [facility] Blood 02/19/2024 2:23 PM CDT Narrative CANCER AGENCY SERVICE COORDINATOR [facility] - 02/20/2024 1:09 PM CDT TESTING PERFORMED AT: [] [facility], [address] [facility], [place], [address], PHONE: [phone], PATRON ATTENDANT: PEGGY MARCUS, PHD Release to patient->Immediate Rosalina E Demattei FINANCIAL SERVICES INTERN, AEROSPACE CONTROL [employer] WARNING SYSTEMS CHEMISTRY ORDERABLE S Final Result Performing Organization Address [facility] Co de Phone Number [facility] [address] [place] [address], [place] [phone] * (ABNORMAL) RETICULOCYTE COUNT (RETIC) (02/19/2024 2:23 PM CDT) Reticulocyte count 2.09(H) 0.50 - 1.70 % CANCER AGENCY SERVICE COORDINATOR [facility] RET-He 32.70 28.20 - 36.60 pg CANCER AGENCY SERVICE COORDINATOR [facility] Comment: RET-He is a direct assessment of incorporation of iron into erythrocyte hemoglobin. It provides an indirect measure of the iron available for new erythropoiesis over past 2-4 days. Blood 02/19/2024 2:23 PM CDT Narrative [facility] - 02/19/2024 2:33 PM CDT Release to patient->Immediate Rosalina Vázquez APRN, CNP HEMATOLOGY ORDERABL ES Final Result Performing Organization Address [facility] Co de Phone Number [facility] [address] [place] [address], [place] [phone] * (ABNORMAL) IRON W/ IRON BINDING CAPACITY [place] (02/19/2024 2:23 PM CDT) IRON 49(L) 50 - 212 ug/dL [facility] UIBC 190 155 - 355 ug/dL [facility] TIBC 239(L) 261 - 478 ug/dl [facility] % Saturation 21 20 - 50 % CANCER AGENCY SERVICE COORDINATOR [facility] 02/19/2024 2:23 PM CDT [facility] - 02/19/2024 3:17 PM CDT Release to patient->Immediate us Rosalina Vázquez APRN, AER[employer] LAB SEND OUTS Fin al Result Performing Organization Address City/[facility]/ZIP Co de Phone Number CANCER AGENCY SERVICE COORDINATOR [facility] [place] [address] [place] [address], * FERRITIN (02/19/2024 2:23 PM CDT) Ferritin 67 11 - 307 ng/mL CANCER AGENCY SERVICE COORDINATOR [facility] Blood 02/19/2024 2:23 PM CDT Narrative CANCER AGENCY SERVICE COORDINATOR [facility] - 02/20/2024 3:26 PM CDT Release to patient->Immediate Rosalina Jalil Romoei FINANCIAL SERVICES INTERN, AEROSP[employer] CONTR[employer] WARNING [employer] CHEMISTRY ORDERABLE S Final Result CANCER AGENCY SERVICE COORDINATOR [facility] [address] [place] [address], * FOLIC ACID (FOLATE) (02/19/2024 2:23 PM CDT) Folate 12.98 >=5.90 ng/mL CANCER AGENCY SERVICE COORDINATOR [facility] Blood 02/19/2024 2:23 PM CDT Narrative CANCER AGENCY SERVICE COORDINATOR [facility] - 02/20/2024 3:26 PM CDT Release to patient->Immediate IS THE PATIENT REQUIRED TO BE FASTING FOR 12 HOURS?->No us Rosalina Romoei FINANCIAL SERVICES INTERN, AEROSPACE CONTROL [employer] WARNING [employer]S CHEMISTRY ORDERABLE S Final Result CANCER AGENCY SERVICE COORDINATOR [facility] [address] [place] [address], [place] [phone] * (ABNORMAL) VITAMIN B12 (02/19/2024 2:23 PM CDT) Vitamin B12 1,381(H) 180 - 914 pg/mL CANCER AGENCY SERVICE COORDINATOR [facility] Blood 02/19/2024 2:23 PM CDT Narrative CANCER AGENCY SERVICE COORDINATOR [facility] - 02/20/2024 3:26 PM CDT Release to patient->Immediate us Rosalina Vázquez APRN, CHERELLE CHEMISTRY ORDERABLE S Final Result Performing Organization Address City/[facility]/ZIP Co de Phone Number CANCER AGENCY SERVICE COORDINATOR [facility] [address] [address], [place] [phone] * LACTATE DEHYDROGENASE (LD) (02/19/2024 2:23 PM CDT) LDH 157 140 - 271 U/L [facility] Blood 02/19/2024 2:23 PM CDT Narrative [facility] - 02/19/2024 3:17 PM CDT Release to patient->Immediate Rosalina Vázquez APRN, AEROSP[employer] CONTR[employer] WARN[employer] CHEMISTRY ORDERABLE S Final Result Performing Organization Address [facility] Co de Phone Number CANCER AGENCY SERVICE COORDINATOR [facility] [place] [address], [place] [phone] * (ABNORMAL) CMP (COMPREHENSIVE METABOLIC PANEL) (02/19/2024 2:23 PM CDT) Glucose 245(H) 70 - 105 mg/dL [facility] Blood Urea Nitrogen 45(H) 7 - 25 mg/dL [facility] Creatinine 3.2(H) 0.6 - 1.2 mg/dL [facility] Sodium 136 136 - 145 mEq/L [facility] Potassium 5.2(H) 3.5 - 5.1 mEq/L [facility] Chloride 105 98 - 107 mEq/L [facility] Bicarbonate 23 21 - 31 mEq/L [facility] Total Bilirubin 0.5 0.3 - 1.0 mg/dL [facility] Alk. Phosphatase 53 34 - 104 U/L [facility] Aspartate Aminotransferase 18 13 - 39 U/L [facility] Alanine Aminotransferase 10 7 - 52 U/L [facility] Total Protein 5.8(L) 6.4 - 8.9 g/dL [facility] Albumin 3.4(L) 3.5 - 5.7 g/dL CANCER AGENCY SERVICE COORDINATOR [facility] Calcium 8.6 8.6 - 10.3 mg/dL CANCER AGENCY SERVICE COORDINATOR [facility] Anion Gap 13.2 7.0 - 15.0 mEq/L CANCER AGENCY SERVICE COORDINATOR [facility] Globulin 2.4 2.0 - 3.5 g/dL CANCER AGENCY SERVICE COORDINATOR [facility] EGFR 16(L) >60 ml/min/1. 73m2 CANCER AGENCY SERVICE COORDINATOR [facility] Comment: This eGFR is calculated using 2020 CKD-EPI Creatinine equation without race modifier based on the NKF-ASN task force recommendations Blood 02/19/2024 2:23 PM CDT Narrative CANCER AGENCY SERVICE COORDINATOR [facility] - 02/19/2024 3:17 PM CDT Release to patient->Immediate IS THE PATIENT REQUIRED TO BE FASTING FOR 8 HOURS?->No us Rosalina Vázquez FINANCIAL SERVICES INTERN, AEROSPACE CONTROL [employer] WARNING [employer]S CHEMISTRY ORDERABLE S Final Result CANCER AGENCY SERVICE COORDINATOR [facility] [address] [place] [address], [place] [phone] * (ABNORMAL) COMPLETE BLOOD COUNT (CBC) WITH DIFF (02/19/2024 2:23 PM CDT) WBC 5.3 4.0 - 10.0 10*3/uL CANCER AGENCY SERVICE COORDINATOR [facility] HGB 9.6(L) 11.2 - 15.7 g/dL CANCER AGENCY SERVICE COORDINATOR [facility] HCT 29.9(L) 34.1 - 44.9 % CANCER AGENCY SERVICE COORDINATOR [facility] PLT 160(L) 163 - 369 10*3/uL CANCER AGENCY SERVICE COORDINATOR [facility] MPV 10.3 9.4 - 12.4 fL CANCER AGENCY SERVICE COORDINATOR [facility] RBC 3.21(L) 3.93 - 5.22 10*6/uL CANCER AGENCY SERVICE COORDINATOR [facility] MCV 93 79 - 95 fL CANCER AGENCY SERVICE COORDINATOR [facility] MCH 29.9 25.6 - 32.2 pg CANCER AGENCY SERVICE COORDINATOR [facility] MCHC 32.1(L) 32.2 - 36.5 g/dL CANCER AGENCY SERVICE COORDINATOR [facility] RDW 12.5 11.6 - 14.4 % CANCER AGENCY SERVICE COORDINATOR [facility] Absolute Neutrophil Count 3,192 cells/uL [facility] Absolute Seg Count 3,192 1,440 - 6,600 cells/uL CANCER AGENCY SERVICE COORDINATOR [facility] Absolute Lymph Count 1,330 760 - 4,000 cells/uL [facility] Absolute [place] Count 426 160 - 1,200 cells/uL [facility] Absolute Eos Count 372(H) 0 - 300 cells/uL CANCER AGENCY SERVICE COORDINATOR [facility] Segmented Neutrophils 60 36 - 66 % CANCER AGENCY SERVICE COORDINATOR [facility] Lymphocytes 25 19 - 40 % [facility] Monocytes 8 4 - 12 % [facility] Eosinophils 7(H) 0 - 3 % [facility] WBC Estimate Normal [facility] Platelet Estimate Low CANCER AGENCY SERVICE COORDINATOR [facility] RBC Morphology Normal [facility] Blood 02/19/2024 2:23 PM CDT Narrative [facility] - 02/19/2024 3:35 PM CDT Release to patient->Immediate Rosalina Vázquez APRN, [employer] HEMATOLOGY ORDERABL ES Final Result [facility] [place] [address], documented in this encounter Visit Diagnoses Diagnosis [...] documented as of this encounter Care Teams Data Integrity Specialist Relationship Specialty Start Date End Date Jonatan Worley [address] [place] [address] PCP - General Family Medicine 07/12/20 Srinivasa Lee MD [facility] [address] Consulting Physician Oncology 07/12/20 documented as of this encounter
--- OUTSIDE RECORDS SUMMARY | 2024-08-29 04:33 | XMS_ITS | Encounter Summary ---
Author Organization [facility] Address [address] [place] [address] Phone Care Team Providers Care Surgical Services Director Name Role Phone Jonatan Worley Primary Care Provider Srinivasa Lee MD Unavailable [phone] Encounter Details Date Type Department Care Team (Late st Contact Info) Description 10/27/2023 Telephone [facility] [address] [place] [address] Srinivasa Lee MD [facility] [address] [address] Social History Tobacco Use Types [...] on file Legal Sex Female 11:51 AM HOME SUPPORT WORKER Gender Identity Not on file Sexual Orientation Not on file documented as of this encounter Miscellaneous Notes * Telephone Encounter - Shonna Roman LPN - 10/27/2023 11:00 AM HOME SUPPORT WORKER Copy of lab results faxed to Kizzy Delgado ANALYTICAL STRATEGIST with [facility] asrequested. SUPPORT WORKER * Telephone Encounter - Shonna Roman LPN - 10/27/2023 11:00 AM HOME SUPPORT WORKER ----- Message from Esther Rojas APRN, CNP sent at 10/24/2023 2:25 PM HOME SUPPORT WORKER ----- Please send a copy of patient's CMP over to her Currency Counter. SUPPORT WORKER * Telephone Encounter - Shonna Roman LPN - 10/27/2023 10:56 AM HOME SUPPORT WORKER ----- Message from Esther Rojas APRN, CNP sent at 10/24/2023 2:25 PM HOME SUPPORT WORKER ----- Please send a copy of patient's CMP over to her Currency Counter. SUPPORT WORKER documented in this encounter Plan of Treatment Upcoming Encounters Date Type Department Care Team (Late st Contact Info) Description 10/18/2024 1:30 PM HOME SUPPORT WORKER Office Visit [facility] [address] [place] [address] Srinivasa Lee MD [address] [place] [address] documented as of this encounter Visit Diagnoses Not on filedocumented in this encounter Additional Health Concerns Assessment Noted Time PHQ-9 Depression Total Score: 0 03/08/20 21 11:06 AM CDT documented as of this encounter Care Teams Surgical Services Director Relationship Specialty Start Date End Date Jonatan Worley [address] [place] [address] PCP - General Family Medicine 07/12/20 Srinivasa Lee MD [address] [place] [phone] Consulting Physician Oncology 07/12/20 documented as of this encounter
--- OUTSIDE RECORDS SUMMARY | 2024-08-29 04:33 | XMS_ITS | Encounter Summary ---
Author Organization [facility] Address [address] [place] [address] Phone Care Team Providers Care [employer] Name Role Phone Jonatan Worley Primary Care Provider [phone] Srinivasa Lee MD Unavailable [phone] Reason for Visit * Reason Comments Labs Only Encounter Details Date Type Department Care Team (Latest Contact Info) Description 03/07/2023 10:00 AM CDT Clinical Support [facility] [address] [address] Nurse, Gwendolyn Jackson [place] Anemia of unknown etiology; Hypogammaglobulinem ia (HCC) [...] on file Legal Sex Female 11:51 AM COMPLIANCE REPRESENTATIVE Gender Identity Not on file Sexual Orientation [...] st Contact Info) Description 10/18/2024 1:30 PM COMPLIANCE REPRESENTATIVE Office Visit [facility] [address] [address] Srinivasa Lee MD [address] [place], [place] [id number] documented as of this encounter Procedures Procedure [...] IGG 746 635 - 1,741 mg/dL [facility] IGA 202 66 - 433 mg/dL [facility] IGM 104 45 - 281 mg/dL [facility] Blood 03/07/2023 10:0 1 AM CDT Narrative [facility] - 03/10/2023 2:03 PM CDT Release to patient->Immediate us Buzz Sales PAC CHEMISTRY ORDERABLES Final Result [facility] [address] [place] [address], [place] [phone] * (ABNORMAL) ELECTROPHORESIS W/ TOTAL PROTEIN SERUM (03/07/2023 10:01 AM CDT) PROTEIN, TOTAL, SERUM 5.7(L) 6.0 - 8.5 G/DL [facility] ALBUMIN 3.2 2.9 - 4.4 G/DL [facility] [id number] 0.2 0.0 - 0.4 G/DL [facility] [id number] 0.8 0.4 - 1.0 G/DL [facility] BETA GLOBULIN 0.8 0.7 - 1.3 G/DL [facility] GAMMA GLOBULIN 0.7 0.4 - 1.8 G/DL [facility] M-SPIKE NOT OBSERVED NOT OBSERVED G/DL [facility] GLOBULIN, TOTAL 2.5 2.2 - 3.9 G/DL [facility] A/G RATIO 1.3 0.7 - 1.7 [facility] PLEASE NOTE: COMMENT [facility] Comment: PROTEIN ELECTROPHORESIS SCAN WILL FOLLOW VIA COMPUTER, MAIL, OR WOOD TOOL MAKER DELIVERY. PDF . [facility] Blood 03/07/2023 10:0 1 AM CDT Narrative [facility] - 03/10/2023 3:09 PM CDT TESTING PERFORMED AT: [] [facility], [address] [place] [address], [address], PHONE: [phone], PAPER TWISTER: PEGGY MARCUS, PHD Release to patient->Immediate Buzz Sales [facility] CHEMISTRY ORDERABLES Final Result [facility] * IMMUNOFIXATION, SERUM [place] (03/07/2023 10:01 AM CDT) Pathologist [facility] IMMUNOFIXATION RESULT, SERUM COMMENT [facility] Comment:NO MONOCLONALITY DET ECTED. 03/07/2023 10:0 1 AM CDT Narrative [facility] - 03/10/2023 11:08 AM CDT TESTING PERFORMED AT: [] [facility], [address] [facility] [facility], [place], [address], PHONE: [phone], PAPER TWISTER: PEGGY MARCUS, PHD Release to patient->Immediate Buzz Sales PAC LAB SEND OUTS Final Resu lt [facility] * (ABNORMAL) FREE KAPPA & LAMBDA LIGHT CHAINS SERUM (03/07/2023 10:01 AM CDT) FREE KAPPA LT CHAINS,S 104.9(H) 3.3 - 19.4 MG/L [facility] FREE LAMBDA LT CHAINS,S 59.6(H) 5.7 - 26.3 MG/L [facility] FREE KAPPA/FREE LAMBDA RATIO LT CHAINS 1.76(H) 0.26 - 1.65 [facility] Blood 03/07/2023 10:0 1 AM CDT Narrative [facility] - 03/10/2023 1:08 PM CDT TESTING PERFORMED AT: [] [address], [address], PHONE: [phone], PAPER TWISTER: PEGGY MARCUS, PHD Release to patient->Immediate Buzz Sales PAC CHEMISTRY ORDERABLES Final Result Performing Organization Address [facility] Co de Phone Number [facility] * (ABNORMAL) BETA 2 MICROGLOBULIN (03/07/2023 10:01 AM CDT) Pathologist [facility] [id number] 9.94(H) 0.97 - 1.84 mg/L [facility] Blood 03/07/2023 10:0 1 AM CDT Narrative [facility] - 03/14/2023 2:06 PM CDT Release to patient->Immediate Buzz Sales PAC CHEMISTRY ORDERABLES Final Result Performing Organization Address City/[facility]/ZIP Co de Phone Number [facility] [place] [address], [place] [phone] * (ABNORMAL) COMPLETE BLOOD COUNT (CBC) WITH DIFF (03/07/2023 9:32 AM CDT) WBC 10.5(H) 4.0 - 10.0 10*3/uL [facility] HGB 9.7(L) 11.2 - 15.7 g/dL [facility] HCT 30.4(L) 34.1 - 44.9 % [facility] PLT 195 163 - 369 10*3/uL [facility] MPV 11.5 9.4 - 12.4 fL [facility] RBC 3.30(L) 3.93 - 5.22 10*6/uL [facility] MCV 92 79 - 95 fL [facility] MCH 29.4 25.6 - 32.2 pg [facility] MCHC 31.9(L) 32.2 - 36.5 g/dL [facility] RDW 12.7 11.6 - 14.4 % [facility] Absolute Neutrophil Count 8,054 cells/uL [facility] Absolute Seg Count 7,950(H) 1,440 - 6,600 cells/uL [facility] Absolute Band Count 105 0 - 800 cells/uL [facility] Absolute Lymph Count 1,046 760 - 4,000 cells/uL [facility] Absolute Cuming Count 314 160 - 1,200 cells/uL [facility] Absolute Eos Count 1,046(H) 0 - 300 cells/uL [facility] Segmented Neutrophils 76(H) 36 - 66 % [facility] Band Neutrophils 1 0 - 8 % [facility] Lymphocytes 10(L) 19 - 40 % [facility] Monocytes 3(L) 4 - 12 % [facility] Eosinophils 10(H) 0 - 3 % [facility] [place] WBC Estimate High [facility] Platelet Estimate Normal [facility] RBC Morphology Normal [facility] Blood 03/07/2023 9:32 AM CDT Narrative [facility] - 03/07/2023 1:22 PM CDT Release to patient->Immediate Buzz Sales PAC HEMATOLOGY ORDERABLES Kym tineo Result [facility] [address] [place] [address], * (ABNORMAL) CMP (COMPREHENSIVE METABOLIC PANEL) (03/07/2023 9:32 AM CDT) Glucose 192(H) 70 - 105 mg/dL [facility] Blood Urea Nitrogen 39(H) 7 - 25 mg/dL [facility] Creatinine 2.5(H) 0.6 - 1.2 mg/dL [facility] Sodium 138 136 - 145 mEq/L [facility] Potassium 4.8 3.5 - 5.1 mEq/L [facility] Chloride 109(H) 98 - 107 mEq/L [facility] Bicarbonate 20(L) 21 - 31 mEq/L [facility] Total Bilirubin 0.3 0.3 - 1.0 mg/dL [facility] Alk. Phosphatase 75 34 - 104 U/L [facility] Aspartate Aminotransferase 15 13 - 39 U/L [facility] Alanine Aminotransferase 11 7 - 52 U/L [facility] Total Protein 5.4(L) 6.4 - 8.9 g/dL [facility] Albumin 3.3(L) 3.5 - 5.7 g/dL [facility] Calcium 8.5(L) 8.6 - 10.3 mg/dL [facility] Anion Gap 13.8 7.0 - 15.0 mEq/L [facility] Globulin 2.1 2.0 - 3.5 g/dL [facility] EGFR 21(L) >60 ml/min/1. 73m2 [facility] Comment: This eGFR is calculated using 2020 CKD-EPI Creatinine equation without race modifier based on the NKF-ASN task force recommendations Blood 03/07/2023 9:32 AM CDT Narrative [facility] - 03/07/2023 11:13 AM CDT Release to patient->Immediate IS THE PATIENT REQUIRED TO BE FASTING FOR 8 HOURS?->No Buzz Sales PAC CHEMISTRY ORDERABLES Final Result Performing Organization Address City/[facility]/ZIP Co de Phone Number [facility] [address] [place] [address], * LACTATE DEHYDROGENASE (LD) (03/07/2023 9:32 AM CDT) LDH 144 140 - 271 U/L [facility] Blood 03/07/2023 9:32 AM CDT Narrative [facility] - 03/07/2023 11:14 AM CDT Release to patient->Immediate Buzz Sales PAC CHEMISTRY ORDERABLES Final Result Performing Organization Address [facility] Co de Phone Number [facility] [address] [address], * (ABNORMAL) IRON W/ IRON BINDING CAPACITY [place] (03/07/2023 9:32 AM CDT) IRON 44(L) 50 - 212 ug/dL [facility] UIBC 205 155 - 355 ug/dL [facility] TIBC 249(L) 261 - 478 ug/dl [facility] % Saturation 18(L) 20 - 50 % [facility] Blood 03/07/2023 9:32 AM CDT Narrative [facility] - 03/07/2023 11:14 AM CDT Release to patient->Immediate Buzz Sales PAC LAB SEND OUTS Final Resu lt Performing Organization Address City/[facility]/ZIP Co de Phone Number [facility] [address] [address], * FERRITIN (03/07/2023 9:32 AM CDT) Ferritin 49 11 - 307 ng/mL [facility] Blood 03/07/2023 9:[address] [facility] - 03/10/2023 2:37 PM CDT Release to patient->Immediate Buzz Sales PAC CHEMISTRY ORDERABLES Final Result Performing Organization Address City/[facility]/ZIP Co de Phone Number [facility] [address] [place] [address], [place] [phone] * VITAMIN B12 (03/07/2023 9:32 AM CDT) Vitamin B12 267 180 - 914 pg/mL [facility] Blood 03/07/2023 9:32 AM CDT [facility] - 03/10/2023 2:37 PM CDT Release to patient->Immediate Buzz Sales PAC CHEMISTRY ORDERABLES Final Result Performing Organization Address [facility] de Phone Number [facility] [address] [place] [address], [place] [phone] documented in this encounter Visit Diagnoses Diagnosis Anemia of unknown etiology Anemia, unspecified Hypogammaglobulinemia (HCC) Hypogammaglobulinaemia, unspecified documented in this encounter Additional Health Concerns Assessment Noted Time PHQ-9 Depression Total Score: 0 03/08/20 21 11:06 AM CDT documented as of this encounter Care Teams Cook [employer] Relationship Specialty Start Date End Date Jonatan Worley [address] [place] [address] PCP - General Family Medicine 07/12/20 Srinivasa Lee MD [address] [place] [id number] Consulting Physician Oncology 07/12/20 documented as of this encounter
--- OUTSIDE RECORDS SUMMARY | 2024-08-29 04:33 | XMS_ITS | Encounter Summary ---
Author Organization [facility] Address [address] [place] [address] Phone Care Team Providers Care Graduate Teaching Assistant Name Role Phone Jonatan Worley Primary Care Provider Srinivasa Lee MD Unavailable [phone] Encounter Details Date Type Department Care Team (Latest Contact Info) Description 12/06/2022 10:20 AM CDT Lab [facility] [address] [address] Lab, Cc [facility] [place] Hypogammaglobulinemia (HCC); Anemia of unknown etiology [...] on file Legal Sex Female 11:51 AM RESEARCH AND EVALUATION MANAGER Gender Identity Not on file Sexual [...] st Contact Info) Description 10/18/2024 1:30 PM RESEARCH AND EVALUATION MANAGER Office Visit [facility] [address] [address] Srinivasa Lee MD [address] [place] [address] [place] [address] [phone] documented as of this encounter Procedures Procedure [...] 10*3/uL [facility] HGB 10.4(L) 11.2 - 15.7 g/dL [facility] HCT 30.7(L) 34.1 - 44.9 % [facility] PLT 194 163 - 369 10*3/uL [facility] MPV 11.1 9.4 - 12.4 fL [facility] RBC 3.52(L) 3.93 - 5.22 10*6/uL [facility] MCV 87 79 - 95 fL [facility] MCH 29.5 25.6 - 32.2 pg [facility] [place] MCHC 33.9 32.2 - 36.5 g/dL [facility] RDW 12.4 11.6 - 14.4 % [facility] Absolute Neutrophil Count 9,485 cells/uL [facility] Absolute Seg Count 9,485(H) 1,440 - 6,600 cells/uL [facility] Absolute Lymph Count 973 760 - 4,000 cells/uL [facility] Absolute [place] Count 608 160 - 1,200 cells/uL [facility] Absolute Eos Count 1,094(H) 0 - 300 cells/uL [facility] Segmented Neutrophils 78(H) 36 - 66 % [facility] Lymphocytes 8(L) 19 - 40 % [facility] [place] Monocytes 5 4 - 12 % [facility] Eosinophils 9(H) 0 - 3 % [facility] WBC Estimate High [facility] Platelet Estimate Normal [facility] RBC Morphology Normal [facility] Blood 12/06/2022 10:1 8 AM CDT Narrative [facility] - 12/06/2022 1:29 PM CDT Release to patient->Immediate Buzz Sales PAC HEMATOLOGY ORDERABLES Kym l Result [facility] [address] [place] [address], * (ABNORMAL) CMP (COMPREHENSIVE METABOLIC PANEL) (12/06/2022 10:18 AM CDT) Glucose 230(H) 70 - 105 mg/dL [facility] Blood Urea Nitrogen 53(H) 7 - 25 mg/dL [facility] Creatinine 2.9(H) 0.6 - 1.2 mg/dL [facility] Sodium 138 136 - 145 mEq/L [facility] Potassium 5.6(HH) 3.5 - 5.1 mEq/L [facility] Comment: Critical Result reported to Ely Lai on 12/06/2022 11:13 by ? Kaur Waller. Results were read back to caller. Chloride 109(H) 98 - 107 mEq/L [facility] Bicarbonate 22 21 - 31 mEq/L [facility] Total Bilirubin 0.4 0.3 - 1.0 mg/dL [facility] Alk. Phosphatase 64 34 - 104 U/L [facility] Aspartate Aminotransferase 16 13 - 39 U/L [facility] Alanine Aminotransferase 11 7 - 52 U/L [facility] Total Protein 5.8(L) 6.4 - 8.9 g/dL [facility] Albumin 3.5 3.5 - 5.7 g/dL [facility] Calcium 8.9 8.6 - 10.3 mg/dL [facility] Anion Gap 12.6 7.0 - 15.0 mEq/L [facility] Globulin 2.3 2.0 - 3.5 g/dL [facility] EGFR 18(L) >60 ml/min/1. 73m2 [facility] Comment: This eGFR is calculated using 2020 CKD-EPI Creatinine equation without race modifier based on the NKF-ASN task force recommendations Blood 12/06/2022 10:1 8 AM CDT [facility] - 12/06/2022 11:13 AM CDT Release to patient->Immediate IS THE PATIENT REQUIRED TO BE FASTING FOR 8 HOURS?->No Buzz Sales PAC CHEMISTRY ORDERABLES Final Result Performing Organization Address [facility] Co de Phone Number [facility] [place] [address], * LACTATE DEHYDROGENASE (LD) (12/06/2022 10:18 AM CDT) LDH 162 140 - 271 U/L [facility] Blood 12/06/2022 10:1 8 AM CDT [facility] - 12/06/2022 11:12 AM CDT Release to patient->Immediate [facility] PAC CHEMISTRY ORDERABLES Final Result Performing Organization Address City/[facility]/ZIP Co de Phone Number [facility] [place] [address], * (ABNORMAL) IRON W/ IRON BINDING CAPACITY [place] (12/06/2022 10:18 AM CDT) IRON 49(L) 50 - 212 ug/dL [facility] UIBC 212 155 - 355 ug/dL [facility] TIBC 261 261 - 478 ug/dl [facility] % Saturation 19(L) 20 - 50 % [facility] Blood 12/06/2022 10:1 8 AM CDT [facility] - 12/06/2022 11:12 AM CDT Release to patient->Immediate us Buzz Sales PAC LAB SEND OUTS Final Resu lt [facility] [address] [address], [place] [phone] * FERRITIN (12/06/2022 10:18 AM CDT) Ferritin 52 11 - 307 ng/mL [facility] Blood 12/06/2022 10:1 8 AM CDT [facility] 12/06/2022 2:36 PM CDT Release to patient->Immediate us Buzz Sales PAC CHEMISTRY ORDERABLES Final Result Performing Organization Address City/[facility]/ZIP Co de Phone Number [facility] [address] [place] [address], [place] [phone] * VITAMIN B12 (12/06/2022 10:18 AM CDT) Vitamin B12 265 180 - 914 pg/mL [facility] Blood 12/06/2022 10:1 8 AM CDT [facility] - 12/06/2022 2:36 PM CDT Release to patient->Immediate us Buzz Sales PAC CHEMISTRY ORDERABLES Final Result [facility] [address] [place] [address], [place] [phone] * IMMUNOGLOBULIN IGA, IGG & IGM QUANT (12/06/2022 10:18 AM CDT) IGG 762 635 - 1,741 mg/dL [facility] IGA 210 66 - 433 mg/dL [facility] IGM 57 45 - 281 mg/dL [facility] Blood 12/06/2022 10:1 8 AM CDT Narrative [facility] - 12/06/2022 2:24 PM CDT Release to patient->Immediate Buzz Sales PAC CHEMISTRY ORDERABLES Final Result [facility] [address] [place] [address], * (ABNORMAL) ELECTROPHORESIS W/ TOTAL PROTEIN SERUM (12/06/2022 10:18 AM CDT) PROTEIN, TOTAL, SERUM 5.9(L) 6.0 - 8.5 G/DL [facility] ALBUMIN 3.1 2.9 - 4.4 G/DL [facility] [id number] 0.3 0.0 - 0.4 G/DL [facility] ILMPE-4-[id number] 0.8 0.4 - 1.0 G/DL [facility] [...] SCAN WILL FOLLOW VIA COMPUTER, MAIL, OR DRIVER HELPER DELIVERY. PDF . [facility] Blood 12/06/2022 10:1 8 AM CDT Narrative [facility] - 12/09/2022 3:09 PM CDT [facility] PERFORMED AT: [] [facility], [address] [place], [address], PHONE: [phone], OUTSOLE CUTTER MACHINE: PEGGY [place], PHD Release to patient->Immediate Buzz Sales PAC CHEMISTRY ORDERABLES Final Result Performing Organization Address City/[facility]/ZIP Co de Phone Number [facility] * IMMUNOFIXATION, SERUM [place] (12/06/2022 10:18 AM CDT) IMMUNOFIXATION RESULT, SERUM COMMENT [facility] Comment:NO MONOCLONALITY DET ECTED. 12/06/2022 10:1 8 AM CDT Narrative [facility] - 12/09/2022 1:08 PM CDT TESTING PERFORMED AT: [] [facility], [address] [place], [address], PHONE: [phone], OUTSOLE CUTTER MACHINE: PEGGY MARC[place], PHD Release to patient->Immediate Buzz Sales [facility] LAB SEND OUTS Final Resu lt Performing Organization Address City/[facility]/ZIP Co de Phone Number [facility] * (ABNORMAL) FREE KAPPA & LAMBDA LIGHT CHAINS SERUM (12/06/2022 10:18 AM CDT) FREE KAPPA LT CHAINS,S 108.7(H) 3.3 - 19.4 MG/L [facility] FREE LAMBDA LT CHAINS,S 49.1(H) 5.7 - 26.3 MG/L [facility] FREE KAPPA/FREE LAMBDA RATIO LT CHAINS 2.21(H) 0.26 - 1.65 [facility] Blood 12/06/2022 10:1 8 AM CDT Narrative [facility] - 12/09/2022 8:14 PM CDT TESTING PERFORMED AT: [] [facility], [address] [place], [address], PHONE: [phone], OUTSOLE CUTTER MACHINE: PEGGY MARC[place], PHD Release to patient->Immediate Buzz Sales PAC CHEMISTRY ORDERABLES Final Result [facility] * (ABNORMAL) BETA 2 MICROGLOBULIN (12/06/2022 10:18 AM CDT) [id number] 9.72(H) 0.97 - 1.84 mg/L [facility] Blood 12/06/2022 10:1 8 AM CDT Narrative [facility] - 12/06/2022 2:06 PM CDT Release to patient->Immediate Buzz Sales PAC CHEMISTRY ORDERABLES Final Result Performing Organization Address City/[facility] Co de Phone Number [facility] [address] [place] [address], documented in this encounter Visit Diagnoses Diagnosis Hypogammaglobulinemia (HCC) Hypogammaglobulinaemia, unspecified Anemia of unknown etiology Anemia, unspecified documented in this encounter Additional Health Concerns Assessment Noted Time PHQ-9 Depression Total Score: 0 03/08/20 21 11:06 AM CDT documented as of this encounter Care Teams Graduate Teaching Assistant Relationship Specialty Start Date End Date Jonatan Worley [address] [facility] [address] PCP - General Family Medicine 07/12/20 Srinivasa Lee MD [address] [place] [address] Consulting Physician Oncology 07/12/20 documented as of this encounter
--- OUTSIDE RECORDS SUMMARY | 2024-08-29 04:33 | XMS_ITS | Encounter Summary ---
Author Organization [employer] Care Team Providers Care Library Helper Name Role Phone Jonatan Worley Primary Care Provider [phone] Srinivaas Lee MD Unavailable [phone] Encounter Details Date Type Department Care Team [...] on file Legal Sex Female 11:51 AM BELL STAFF Gender Identity Not on file Sexual Orientation Not on file COVID-19 Exposure Response Date Recorded In the last 10 days, have yo u been in contact with someone who was confirmed or suspected to have Coronavirus/COVID-19? No / Unsure 09/06/2022 9:09 AM BELL STAFF documented as of this encounter Plan of Treatment Upcoming Encounters Date Type Department Care Team (Late st Contact Info) Description 10/18/2024 1:30 PM BELL STAFF Office Visit [facility] [address] [address] Srinivasa Lee MD [facility] [place] [address] [address] documented as of this encounter Visit Diagnoses Not on filedocumented in this encounter Additional Health Concerns Assessment Noted Time PHQ-9 Depression Total Score: 0 03/08/20 21 11:06 AM CDT documented as of this encounter Care Teams Library Helper Relationship Specialty Start Date End Date Meir Jonatan [address] [facility] [place] [address] PCP - General Family Medicine 07/12/20 Srinivasa Lee MD [address] [place] [address] Consulting Physician Oncology 07/12/20 documented as of this encounter
--- OUTSIDE RECORDS SUMMARY | 2024-08-29 04:33 | XMS_ITS | Encounter Summary ---
Author Organization [facility] Address [address] [place] [address] Phone Care Team Providers Care Relationship Assoc Name Role Phone Jonatan Worley Primary Care Provider [phone] Srinivasa Lee MD Unavailable [phone] Encounter Details Date Type Department Care Team (Latest Contact Info) Description 09/06/2022 9:15 AM MANAGER MEDICAL AFFAIRS Lab [facility] [address] [address] Lab, Cc [facility] Hypogammaglobulinemia (HCC); Anemia of unknown etiology Social [...] file Legal Sex Female 11:51 AM MANAGER MEDICAL AFFAIRS Gender Identity Not on file Sexual Orientation Not on file COVID-19 Exposure Response Date Recorded In the last 10 days, have yo u been in contact with someone who was confirmed or suspected to have Coronavirus/COVID-19? No / Unsure 09/06/2022 9:09 AM MANAGER MEDICAL AFFAIRS documented as of this encounter Plan of Treatment Upcoming Encounters Date Type Department Care Team (Late st Contact Info) Description 10/18/2024 1:30 PM MANAGER MEDICAL AFFAIRS Office Visit [facility] [place] [address] [place] [address] Srinivasa Lee MD [address] [place], [place] [address] documented as of this encounter Procedures Procedure Name Priority Date/Time Associated Diagnosis Comments IRON W/ IRON BINDING CAPACITY [place] Routine 09/06/2022 9:12 AM MANAGER MEDICAL AFFAIRS Hypogammaglobulinem ia (HCC) Anemia of unknown etiology FERRITIN Routine 09/06/2022 9:12 AM MANAGER MEDICAL AFFAIRS Hypogammaglobulinem ia (HCC) Anemia of unknown etiology CMP (COMPREHENSIVE METABOLIC PANEL) Routine 09/06/2022 9:12 AM MANAGER MEDICAL AFFAIRS Hypogammaglobulinem ia (HCC) Anemia of unknown etiology COMPLETE BLOOD COUNT (CBC) WITH DIFF Routine 09/06/2022 9:12 AM MANAGER MEDICAL AFFAIRS Hypogammaglobulinem ia (HCC) Anemia of unknown etiology documented in this encounter Results * (ABNORMAL) COMPLETE BLOOD COUNT (CBC) WITH DIFF (09/06/2022 9:12 AM MANAGER MEDICAL AFFAIRS) WBC 9.7 4.0 - 10.0 10*3/uL [facility] HGB 10.1(L) 11.2 - 15.7 g/dL [facility] HCT 29.5(L) 34.1 - 44.9 % [facility] PLT 184 163 - 369 10*3/uL [facility] MPV 11.4 9.4 - 12.4 fL [facility] RBC 3.35(L) 3.93 - 5.22 10*6/uL [facility] MCV 88 79 - 95 fL [facility] [place] MCH 30.1 25.6 - 32.2 pg [facility] MCHC 34.2 32.2 - 36.5 g/dL [facility] RDW 12.4 11.6 - 14.4 % [facility] Absolute Neutrophil Count 6,472 cells/uL [facility] Absolute Seg Count 6,472 1,440 - 6,600 cells/uL [facility] Absolute Lymph Count 2,029 760 - 4,000 cells/uL [facility] Absolute [place] Count 580 160 - 1,200 cells/uL [facility] Absolute Eos Count 580(H) 0 - 300 cells/uL [facility] Segmented Neutrophils 67(H) 36 - 66 % [facility] Lymphocytes 21 19 - 40 % [facility] [place] [facility] Monocytes 6 4 - 12 % [facility] Eosinophils 6(H) 0 - 3 % [facility] WBC Estimate Normal [facility] Platelet Estimate Normal [facility] RBC Morphology Normal [facility] Blood 09/06/2022 9:12 AM MANAGER MEDICAL AFFAIRS Narrative [facility] - 09/06/2022 11:23 AM MANAGER MEDICAL AFFAIRS Release to patient->Immediate Esther Oreilly MACHINERY ENGINEER, DEHAIRER HEMATOLOGY ORDERA BLES Final Result [facility] [address] [place] [address], * (ABNORMAL) CMP (COMPREHENSIVE METABOLIC PANEL) (09/06/2022 9:12 AM MANAGER MEDICAL AFFAIRS) Glucose 186(H) 70 - 105 mg/dL [facility] Blood Urea Nitrogen 43(H) 7 - 25 mg/dL [facility] Creatinine 2.6(H) 0.6 - 1.2 mg/dL [facility] Sodium 137 136 - 145 mEq/L [facility] Potassium 4.9 3.5 - 5.1 mEq/L [facility] Chloride 106 98 - 107 mEq/L [facility] Bicarbonate 22 21 - 31 mEq/L [facility] Total Bilirubin 0.3 0.3 - 1.0 mg/dL [facility] Alk. Phosphatase 76 34 - 104 U/L [facility] Aspartate Aminotransferase 14 13 - 39 U/L [facility] Alanine Aminotransferase 11 7 - 52 U/L [facility] Total Protein 5.2(L) 6.4 - 8.9 g/dL [facility] Albumin 3.1(L) 3.5 - 5.7 g/dL [facility] Calcium 8.3(L) 8.6 - 10.3 mg/dL [facility] Anion Gap 13.9 7.0 - 15.0 mEq/L [facility] Globulin 2.1 2.0 - 3.5 g/dL [facility] EGFR 20(L) >60 ml/min/1. 73m2 [facility] Comment: This eGFR is calculated using 2020 CKD-EPI Creatinine equation without race modifier based on the NKF-ASN task force recommendations Blood 09/06/2022 9:12 AM MANAGER MEDICAL AFFAIRS [facility] - 09/06/2022 10:06 AM MANAGER MEDICAL AFFAIRS IS THE PATIENT REQUIRED TO BE FASTING FOR 8 HOURS?->No Release to patient->Immediate Esther Oreilly MACHINERY ENGINEER, DEHAIRER CHEMISTRY ORDERAB LES Final Result [facility] Cancer [facility] [address] [place] [address], [place] [phone] * FERRITIN (09/06/2022 9:12 AM MANAGER MEDICAL AFFAIRS) Pathologist [facility] Ferritin 49 11 - 307 ng/mL [facility] Blood 09/06/2022 9:12 AM MANAGER MEDICAL AFFAIRS Narrative [facility] - 09/06/2022 2:01 PM MANAGER MEDICAL AFFAIRS Release to patient->Immediate Esther Oreilly MACHINERY ENGINEER, DEHAIRER CHEMISTRY ORDERAB LES Final Result [facility] [address] [place] [address], [place] [phone] * (ABNORMAL) IRON W/ IRON BINDING CAPACITY [place] (09/06/2022 9:12 AM MANAGER MEDICAL AFFAIRS) IRON 48(L) 50 - 212 ug/dL [facility] UIBC 189 155 - 355 ug/dL [facility] TIBC 237(L) 261 - 478 ug/dl [facility] % Saturation 20 20 - 50 % [facility] 09/06/2022 9:12 AM MANAGER MEDICAL AFFAIRS Narrative [facility] - 09/06/2022 10:06 AM MANAGER MEDICAL AFFAIRS Release to patient->Immediate Esther Oreilly APRN, DEHAIRER LAB SEND OUTS F inal Result [facility] [address] [place], [place] [address] [phone] documented in this encounter Visit Diagnoses Diagnosis Hypogammaglobulinemia (HCC) Hypogammaglobulinaemia, unspecified Anemia of unknown etiology Anemia, unspecified documented in this encounter Additional Health Concerns Assessment Noted Time PHQ-9 Depression Total Score: 0 03/08/20 21 11:06 AM CDT documented as of this encounter Care Teams Relationship Assoc Relationship Specialty Start Date End Date Jonatan Worley [address] [place] [address] PCP - General Family Medicine 07/12/20 Srinivasa Lee MD [address] [place] [address] Consulting Physician Oncology 07/12/20 documented as of this encounter
--- OUTSIDE RECORDS SUMMARY | 2024-08-29 04:33 | XMS_ITS | Encounter Summary ---
Author Organization [facility] Address [address] [place] [address] Phone Care Team Providers Care Woods Superintendent Name Role Phone Jonatan Worley Primary Care Provider Srinivasa Lee MD Unavailable Reason for Visit * Reason Comments Follow-up Encounter Details Date Type Department Care Team (Late st Contact Info) Description 06/12/2023 2:15 PM CDT Office Visit [facility] [address] [place] [address] Esther Oreilly, FLAVORINGS COMPOUNDER, BULK SYSTEM OPERATOR [address] [place] [address] Anemia of unknown etiology (Primary [...] on file Legal Sex Female 11:51 AM MANAGEMENT INSTRUCTOR Gender Identity Not on file Sexual [...] encounter Progress Notes * Esther Rojas, DIDI, BULK SYSTEM OPERATOR - 06/12/2023 2:15 PM CDT Images from the original note were not included. Patient: Arely Ernandez Age: 62 y.o. : 1960 Encounter Dept: [facility] Encounter Date: 06/12/2023 Care Team: Current Providers PCP: Jonatan Worley Care Team Provider: Srinivasa Lee MD Encounter Provider: Esther Rojas, FLAVORINGS COMPOUNDER, BULK SYSTEM OPERATOR Referring Provider: not found Nurse Practitioner: Esther Rojas, FLAVORINGS COMPOUNDER, BULK SYSTEM OPERATOR HISTORY OF PRESENT ILLNESS: Ms. Arely [...] shown below reviewed. MD Esther Arriola, DNP, [facility]- Vitals: Vitals: 06/12/23 1421 BP: 148/80 BP [...] 4 TIMES DAILY ??? ergocalciferol (VITAMIN D) 46268 UNIT Capsule ??? ferrous sulfate 325 (65 [...] 760 - 4,000 cells/uL Final ??? Absolute [place] Count 06/12/2023 586 160 - 1,200 cells/uL [...] Lee MD at 06/13/2023 11:56 AM CDT documented in this encounter Plan of Treatment Upcoming Encounters Date Type Department Care Team (Late st Contact Info) Description 10/18/2024 1:30 PM MANAGEMENT INSTRUCTOR Office Visit [facility] [address] [address] Srinivasa Lee MD [facility] [place] [address] documented as of this encounter Results * RETICULOCYTE COUNT (RETIC) (10/23/2023 2:04 PM MANAGEMENT INSTRUCTOR) Reticulocyte count 1.63 0.50 - 1.70 % [facility] REPA[facility] RET-He 33.30 28.20 - 36.60 pg [facility] REPA[facility] Comment: RET-He is a direct assessment of incorporation of iron into erythrocyte hemoglobin. It provides an indirect measure of the iron available for new erythropoiesis over past 2-4 days. Blood 10/23/2023 2:04 PM MANAGEMENT INSTRUCTOR Narrative [facility] - 10/23/2023 2:36 PM MANAGEMENT INSTRUCTOR Release to patient->Immediate Esther Oreilly APRN, CNP HEMATOLOGY ORDERA BLES Final Result [facility] [address] [facility] [place] [address], [place] [phone] * (ABNORMAL) IRON W/ IRON BINDING CAPACITY [place] (10/23/2023 2:04 PM MANAGEMENT INSTRUCTOR) IRON 58 50 - 212 ug/dL [facility]PA[facility] UIBC 186 155 - 355 ug/dL [facility] TIBC 244(L) 261 - 478 ug/dl [facility] % Saturation 24 20 - 50 % [facility] 10/23/2023 2:04 PM MANAGEMENT INSTRUCTOR Azalia [facility] - 10/23/2023 2:46 PM MANAGEMENT INSTRUCTOR Release to patient->Immediate Esther Oreilly APRN, [facility]ER[facility] SEND OUTS F inal Result [facility] [place] [address], [place] [phone] * FERRITIN (10/23/2023 2:04 PM MANAGEMENT INSTRUCTOR) Ferritin 82 11 - 307 ng/mL [facility]PA[facility] Blood 10/23/2023 2:04 PM MANAGEMENT INSTRUCTOR Narrative [facility] - 10/24/2023 1:52 PM MANAGEMENT INSTRUCTOR Release to patient->Immediate Esther Oreilly APRN, BULK SYSTEM OPERATOR CHEMISTRY ORDERAB LES Final Result Performing Organization Address [facility]/ZIP Co de Phone Number [facility] CAM[facility]A REPAIR[facility] [address] [place] [address], [place] [phone] * FOLIC ACID (FOLATE) (10/23/2023 2:04 PM MANAGEMENT INSTRUCTOR) Folate 12.59 >=5.90 ng/mL [facility]PA[facility] Blood 10/23/2023 2:04 PM MANAGEMENT INSTRUCTOR Narrative [facility] - 10/24/2023 1:52 PM MANAGEMENT INSTRUCTOR Release to patient->Immediate IS THE PATIENT REQUIRED TO BE FASTING FOR 12 HOURS?->No Esther Oreilly APRN, BULK SYSTEM OPERATOR CHEMISTRY ORDERAB LES Final Result Performing Organization Address [facility]/ZIP Co de Phone Number [facility]PA[facility] [address] [place] [address], [place] [phone] * (ABNORMAL) VITAMIN B12 (10/23/2023 2:04 PM MANAGEMENT INSTRUCTOR) Vitamin B12 1,281(H) 180 - 914 pg/mL [facility] Blood 10/23/2023 2:04 PM MANAGEMENT INSTRUCTOR Narrative [facility] - 10/24/2023 1:52 PM MANAGEMENT INSTRUCTOR Release to patient->Immediate Esther Oreilly APRN, BULK SYSTEM OPERATOR CHEMISTRY ORDERAB LES Final Result Performing Organization Address City/[facility]/ZIP Co de Phone Number [facility] [address] [place] [address], [place] [phone] * LACTATE DEHYDROGENASE (LD) (10/23/2023 2:04 PM MANAGEMENT INSTRUCTOR) LDH 158 140 - 271 U/L [facility] Blood 10/23/2023 2:04 PM MANAGEMENT INSTRUCTOR Narrative [facility] - 10/23/2023 2:46 PM MANAGEMENT INSTRUCTOR Release to patient->Immediate Esther Oreilly FLAVORINGS COMPOUNDER, BULK SYSTEM OPERATOR CHEMISTRY ORDERAB LES Final Result [facility] [place] [address], * (ABNORMAL) CMP (COMPREHENSIVE METABOLIC PANEL) (10/23/2023 2:04 PM MANAGEMENT INSTRUCTOR) Glucose 200(H) 70 - 105 mg/dL [facility]PA[facility] Blood Urea Nitrogen 54(H) 7 - 25 mg/dL [facility] Creatinine 2.8(H) 0.6 - 1.2 mg/dL [facility] Sodium 134(L) 136 - 145 mEq/L [facility] Potassium 5.3(H) 3.5 - 5.1 mEq/L [facility] Chloride 108(H) 98 - 107 mEq/L [facility] Bicarbonate 19(L) 21 - 31 mEq/L [facility] Total Bilirubin 0.4 0.3 - 1.0 mg/dL [facility] Alk. Phosphatase 61 34 - 104 U/L [facility] Aspartate Aminotransferase 18 13 - 39 U/L [facility] Alanine Aminotransferase 14 7 - 52 U/L [facility] Total Protein 5.7(L) 6.4 - 8.9 g/dL [facility] Albumin 3.4(L) 3.5 - 5.7 g/dL [facility] Calcium 8.3(L) 8.6 - 10.3 mg/dL [facility] Anion Gap 12.3 7.0 - 15.0 mEq/L [facility] Globulin 2.3 2.0 - 3.5 g/dL [facility] EGFR 19(L) >60 ml/min/1. 73m2 [facility]PA[facility] Comment: This eGFR is calculated using 2020 CKD-EPI Creatinine equation without race modifier based on the NKF-ASN task force recommendations Blood 10/23/2023 2:04 PM MANAGEMENT INSTRUCTOR Narrative [facility]PA[facility] - 10/23/2023 2:46 PM MANAGEMENT INSTRUCTOR Release to patient->Immediate IS THE PATIENT REQUIRED TO BE FASTING FOR 8 HOURS?->No us Esther Oreilly FLAVORINGS COMPOUNDER, BULK SYSTEM OPERATOR CHEMISTRY ORDERAB LES Final Result [facility]PA[facility] [address] [place] [address], documented in this encounter Visit Diagnoses Diagnosis [...] documented as of this encounter Care Teams Woods Superintendent Relationship Specialty Start Date End Date Jonatan Worley [address] [place] [address] PCP - General Family Medicine 07/12/20 Srinivasa Lee MD [address] [place] [address] Consulting Physician Oncology 07/12/20 documented as of this encounter
--- OUTSIDE RECORDS SUMMARY | 2024-08-29 04:34 | XMS_ITS | Encounter Summary ---
Author Organization [employer] Care Team Providers Care Vest Backer Name Role Phone Jonatan Worley Primary Care Provider [phone] Srinivasa Lee MD Unavailable [phone] Encounter Details Date Type Department Care Team [...] on file Legal Sex Female 11:51 AM INDUSTRIAL MAINTENANCE ELECTRICIAN Gender Identity Not on file Sexual Orientation Not on file COVID-19 Exposure Response Date Recorded In the last month, have you been in contact with someone who was confirmed or suspected to have Coronavirus / COVID-19? No / Unsure 09/06/2021 11:11 AM INDUSTRIAL MAINTENANCE ELECTRICIAN documented as of this encounter Plan of Treatment Upcoming Encounters Date Type Department Care Team (Late st Contact Info) Description 10/18/2024 1:30 PM INDUSTRIAL MAINTENANCE ELECTRICIAN Office Visit [facility] [address] [address] Srinivasa Lee MD [address] [address] documented as of this encounter Visit Diagnoses Not on filedocumented in this encounter Additional Health Concerns Assessment Noted Time PHQ-9 Depression Total Score: 0 03/08/20 21 11:06 AM CDT documented as of this encounter Care Teams Vest Backer Relationship Specialty Start Date End Date Jonatan Worley [address] [place] [address] PCP - General Family Medicine 07/12/20 Srinivasa Lee MD [address] [place] [address] Consulting Physician Oncology 07/12/20 documented as of this encounter
--- OUTSIDE RECORDS SUMMARY | 2024-08-29 04:34 | XMS_ITS | Encounter Summary ---
Author Organization [facility] Address [address] [place] [address] Phone Care Team Providers Care Hog Sticker Name Role Phone Jonatan Worley Primary Care Provider Srinivasa Lee MD Unavailable Reason for Visit * Reason Comments Follow-up Encounter Details Date Type Department Care Team (Late st Contact Info) Description 09/08/2020 11:15 AM CYCLE COUNTER Office Visit [facility] [address] [address] Srinivasa Lee MD [address] [facility] [address] [address] Anemia of unknown etiology (Primary [...] on file Legal Sex Female 11:51 AM CYCLE COUNTER Gender Identity Not on file Sexual Orientation Not on file COVID-19 Exposure Response Date Recorded In the last month, have you been in contact with someone who was confirmed or suspected to have Coronavirus / COVID-19? No / Unsure 09/08/2020 11:10 AM CYCLE COUNTER documented as of this encounter Last Filed Vital Signs Vital Sign Reading Time Taken Comments Blood Pressure 138/84 09/08/2020 11:23 AM CYCLE COUNTER Pulse 86 09/08/2020 11:23 AM CYCLE COUNTER Temperature 36.5 ??C (97.7 ??F) 09/08/2020 11:[address] Respiratory Rate 16 09/08/2020 11:23 AM CYCLE COUNTER Oxygen Saturation 98% 09/08/2020 11:23 AM CYCLE COUNTER Inhaled Oxygen Concentration - - Weight 88.2 kg (194 lb 8 oz) 09/08/2020 11:23 AM CYCLE COUNTER Height 170.2 cm (5' 7 ) 09/08/2020 11:23 AM CYCLE COUNTER Body Mass Index 30.46 09/08/2020 11:23 AM CYCLE COUNTER documented in this encounter Progress Notes * Srinivasa Lee MD - 09/08/2020 11:15 AM CST Patient: Arely Ernandez Age: 59 y.o. : 1960 [facility] En[facility] Date: 09/08/2020 Care Team: Current Providers [...] 4 TIMES DAILY ??? ergocalciferol (VITAMIN D) 82796 UNIT Capsule TAKE 1 CAPSULE BY MOUTH [...] 760 - 4,000 cells/uL Final ??? Absolute [place] Count 07/28/2020 245 160 - 1,200 cells/uL [...] Final ??? RBC Morphology 07/28/2020 Normal Final E COUNTER E COUNTER documented in this encounter Plan of Treatment Upcoming Encounters Date Type Department Care Team (Late st Contact Info) Description 10/18/2024 1:30 PM CYCLE COUNTER Office Visit [facility] [address] [address] Srinivasa Lee MD [address] [place] [address] [place] [address] documented as of this encounter Visit Diagnoses Diagnosis Anemia of unknown etiology- Primary Anemia, unspecified documented in this encounter Additional Health Concerns Assessment Noted Time PHQ-9 Depression Total Score: 0 09/08/19 21 11:26 AM CYCLE COUNTER documented as of this encounter Care Teams Hog Sticker Relationship Specialty Start Date End Date Worley Jonatan [address] [place] [address] PCP - General Family Medicine 07/12/20 Srinivasa Lee MD [address] [place] [address] Consulting Physician Oncology 07/12/20 documented as of this encounter
--- OUTSIDE RECORDS SUMMARY | 2024-08-29 04:34 | XMS_ITS | Encounter Summary ---
Author Organization [facility] Address [address] [place] [address] Phone Care Team Providers Care Biology Professor Name Role Phone Jonatan Worley Primary Care Provider Srinivasa Lee MD Unavailable [phone] Reason for Visit * Reason Comments New Patient Encounter Details Date Type Department Care Team (Late st Contact Info) Description 07/28/2020 11:30 AM CAFE OR RESTAURANT MANAGER Office Visit [facility] [address] [address] Srinivasa Lee MD [facility] [address] [address] Anemia of unknown etiology (Primary [...] on file Legal Sex Female 11:51 AM CAFE OR RESTAURANT MANAGER Gender Identity Not on file Sexual Orientation Not on file COVID-19 Exposure Response Date Recorded In the last month, have you been in contact with someone who was confirmed or suspected to have Coronavirus / COVID-19? No / Unsure 07/28/2020 10:59 AM CAFE OR RESTAURANT MANAGER documented as of this encounter Last Filed Vital Signs Vital Sign Reading Time Taken Comments Blood Pressure 158/86 07/28/2020 11:44 AM CAFE OR RESTAURANT MANAGER Pulse 84 07/28/2020 11:44 AM CAFE OR RESTAURANT MANAGER Temperature 36.2 ??C (97.2 ??F) 07/28/2020 11:[address] Respiratory Rate 16 07/28/2020 11:44 AM CAFE OR RESTAURANT MANAGER Oxygen Saturation 98% 07/28/2020 11:44 AM CAFE OR RESTAURANT MANAGER Inhaled Oxygen Concentration - - Weight 88 kg (194 lb) 07/28/2020 11:44 AM CAFE OR RESTAURANT MANAGER Height 170.2 cm (5' 7 ) 07/28/2020 11:44 AM CAFE OR RESTAURANT MANAGER Body Mass Index 30.38 07/28/2020 11:44 AM CAFE OR RESTAURANT MANAGER documented in this encounter Progress Notes * [...] 4 TIMES DAILY ??? ergocalciferol (VITAMIN D) 97929 UNIT Capsule TAKE 1 CAPSULE BY MOUTH [...] No results found for any previous visit. OR RESTAURANT MANAGER OR RESTAURANT MANAGER documented in this encounter Plan of Treatment Upcoming Encounters Date Type Department Care Team (Late st Contact Info) Description 10/18/2024 1:30 PM CAFE OR RESTAURANT MANAGER Office Visit [facility] [address] [address] Srinivasa Lee MD [facility] [place] [address] documented as of this encounter Results * (ABNORMAL) IMMUNOGLOBULIN IGA, IGG & IGM QUANT (07/28/2020 12:05 PM CAFE OR RESTAURANT MANAGER) IGG 627(L) 635 - 1,741 mg/dL [facility] IGA 180 66 - 433 mg/dL [facility] IGM 55 45 - 281 mg/dL [facility] Blood 07/28/2020 12:0 5 PM CAFE OR RESTAURANT MANAGER Narrative [facility] - 07/31/2020 1:40 PM CAFE OR RESTAURANT MANAGER Release to patient->Immediate us Srinivasa Lee MD CHEMISTRY ORDERABLES Final R esult Performing Organization Address City/[facility]/ZIP Co de Phone Number CANCER OUTSIDE BARREL LATHE OPERATOR [facility] [address] [place] [address], [place] [phone] * HAPTOGLOBIN (07/28/2020 12:05 PM CAFE OR RESTAURANT MANAGER) HAPTO 85 30 - 200 mg/dL [facility] OUT[facility]IDE BARREL LATHE OPERATOR [facility] Blood 07/28/2020 12:0 5 PM CAFE OR RESTAURANT MANAGER [facility] CANCER OUTSIDE BARREL LATHE OPERATOR [facility] - 08/01/2020 1:44 PM CAFE OR RESTAURANT MANAGER Release to patient->Immediate Srinivasa Lee MD CHEMISTRY ORDERABLES Final R esult Performing Organization Address City/[facility]/ZIP Co de Phone Number CANCER OUTSIDE BARREL LATHE OPERATOR [facility] [address] [place] [address], [place] [phone] * VITAMIN B12 (07/28/2020 12:05 PM CAFE OR RESTAURANT MANAGER) Vitamin B12 345 180 - 914 pg/mL [facility] BARREL LATHE OPERATOR [facility] Blood 07/28/2020 12:0 5 PM CAFE OR RESTAURANT MANAGER [facility] - 07/31/2020 2:02 PM CAFE OR RESTAURANT MANAGER Release to patient->Immediate Srinivasa Lee MD CHEMISTRY ORDERABLES Final R esult Performing Organization Address City/[facility]/ZIP Co de Phone Number CANCER OUTSIDE BARREL LATHE OPERATOR [facility] [place] [address] [place] [address], [place] [phone] * FOLIC ACID (FOLATE) (07/28/2020 12:05 PM CAFE OR RESTAURANT MANAGER) Folate 13.32 >=5.90 ng/mL [facility]IDE BARREL LATHE OPERATOR [facility] Blood 07/28/2020 12:0 5 PM CAFE OR RESTAURANT MANAGER [facility] - 07/31/2020 2:02 PM CAFE OR RESTAURANT MANAGER IS THE PATIENT REQUIRED TO BE FASTING FOR 12 HOURS?->No Release to patient->Immediate Srinivasa Lee MD CHEMISTRY ORDERABLES Final R esult Performing Organization Address [facility]/ZIP Co de Phone Number CANCER OUTSIDE BARREL LATHE OPERATOR [facility] [place] [address], [place] [phone] * RETICULOCYTE COUNT (RETIC) (07/28/2020 12:05 PM CAFE OR RESTAURANT MANAGER) Reticulocyte count 1.01 0.50 - 1.70 % [facility] RET-He 33.80 28.20 - 36.60 pg [facility] Comment: RET-He is a direct assessment of incorporation of iron into erythrocyte hemoglobin. It provides an indirect measure of the iron available for new erythropoiesis over past 2-4 days. Blood 07/28/2020 12:0 5 PM CAFE OR RESTAURANT MANAGER [facility] - 07/28/2020 12:11 PM CAFE OR RESTAURANT MANAGER Release to patient->Immediate Srinivasa Lee MD HEMATOLOGY ORDERABLES Final Result Performing Organization Address [facility] Co de Phone Number [facility] [place] [address], [place] [phone] * LACTATE DEHYDROGENASE (LD) (07/28/2020 12:05 PM CAFE OR RESTAURANT MANAGER) LDH 176 140 - 271 U/L [facility] Blood 07/28/2020 12:0 5 PM CAFE OR RESTAURANT MANAGER [facility] - 07/28/2020 12:45 PM CAFE OR RESTAURANT MANAGER Release to patient->Immediate Srinivasa Lee MD CHEMISTRY ORDERABLES Final R esult Performing Organization Address [facility] Co de Phone Number [facility] Cancer [address] [address], [place] [phone] * (ABNORMAL) COMPLETE BLOOD COUNT (CBC) WITH DIFF (07/28/2020 12:05 PM CAFE OR RESTAURANT MANAGER) WBC 8.2 4.0 - 10.0 10*3/uL [facility] HGB 10.7(L) 11.2 - 15.7 g/dL [facility] HCT 31.2(L) 34.1 - 44.9 % [facility] PLT 172 163 - 369 10*3/uL [facility] MPV 10.3 9.4 - 12.4 fL [facility] RBC 3.66(L) 3.93 - 5.22 10*6/uL [facility] MCV 85 79 - 95 fL [facility] MCH 29.2 25.6 - 32.2 pg [facility] MCHC 34.3 32.2 - 36.5 g/dL [facility] RDW 12.4 11.6 - 14.4 % [facility] Absolute Neutrophil Count 5,392 cells/uL [facility] Absolute Seg Count 5,392 1,440 - 6,600 cells/uL [facility] Absolute Lymph Count 1,797 760 - 4,000 cells/uL [facility] Absolute Coleman Count 245 160 - 1,200 cells/uL [facility] Absolute Eos Count 735(H) 0 - 300 cells/uL [facility] Segmented Neutrophils 66 36 - 66 % [facility] Lymphocytes 22 19 - 40 % [facility] Monocytes 3(L) 4 - 12 % [facility] Eosinophils 9(H) 0 - 3 % [facility] WBC Estimate Normal [facility] Platelet Estimate Normal [facility] RBC Morphology Normal [facility] Blood 07/28/2020 12:0 5 PM CAFE OR RESTAURANT MANAGER Narrative [facility] - 07/28/2020 1:49 PM CAFE OR RESTAURANT MANAGER Release to patient->Immediate us Srinivasa Lee MD HEMATOLOGY ORDERABLES Final Result [facility] [address] [place] [address], documented in this encounter Visit Diagnoses Diagnosis Anemia of unknown etiology- Primary Anemia, unspecified Hypogammaglobulinemia (HCC) Hypogammaglobulinaemia, unspecified Anemia of unknown etiology Anemia, unspecified Hypogammaglobulinemia (HCC) Hypogammaglobulinaemia, unspecified documented in this encounter Additional Health Concerns Assessment Noted Time PHQ-9 Depression Total Score: 0 07/28/20 20 11:51 AM CAFE OR RESTAURANT MANAGER documented as of this encounter Care Teams Biology Professor Relationship Specialty Start Date End Date Jonatan Worley [address] [place] [address] PCP - General Family Medicine 07/12/20 Srinivasa Lee MD [address] [place] [address] Consulting Physician Oncology 07/12/20 documented as of this encounter
--- OUTSIDE RECORDS SUMMARY | 2024-08-29 04:34 | XMS_ITS | Encounter Summary ---
Author Organization [facility] Address [address] [place] [address] Phone Care Team Providers Care Healthcare Analyst Name Role Phone Jonatan Worley Primary Care Provider [phone] Srinivasa eLe MD Unavailable [phone] Encounter Details Date Type Department Care Team (Latest Contact Info) Description 03/08/2021 11:30 AM CDT Lab [facility] [address] [address] Lab, C[facility] [place] Hypogammaglobulinemia (HCC); Anemia of unknown etiology [...] on file Legal Sex Female 11:51 AM ARMORER TECHNICIAN Gender Identity Not on file Sexual Orientation [...] st Contact Info) Description 10/18/2024 1:30 PM ARMORER TECHNICIAN Office Visit [facility] [address] [address] Srinivasa Lee MD [address] [place], [place] [address] documented as of this encounter Procedures Procedure [...] 4.0 - 10.0 10*3/uL [facility] HGB 9.3(L) 11.2 - 15.7 g/dL [facility] HCT 28.0(L) 34.1 - 44.9 % [facility] PLT 185 163 - 369 10*3/uL [facility] MPV 10.7 9.4 - 12.4 fL [facility] RBC 3.14(L) 3.93 - 5.22 10*6/uL [facility] MCV 89 79 - 95 fL [facility] MCH 29.6 25.6 - 32.2 pg [facility] MCHC 33.2 32.2 - 36.5 g/dL [facility] RDW 12.7 11.6 - 14.4 % [facility] Absolute Neutrophil Count 5,687 cells/uL [facility] Absolute Seg Count 5,687 1,440 - 6,600 cells/uL [facility] Absolute Lymph Count 1,558 760 - 4,000 cells/uL [facility] Absolute [place] Count 234 160 - 1,200 cells/uL [facility] Absolute Eos Count 312(H) 0 - 300 cells/uL [facility] Segmented Neutrophils 73(H) 36 - 66 % [facility] [place] Lymphocytes 20 19 - 40 % [facility] [place] Monocytes 3(L) 4 - 12 % [facility] [place] Eosinophils 4(H) 0 - 3 % [facility] WBC Estimate Normal [facility] Platelet Estimate Normal [facility] RBC Morphology Normal [facility] Blood 03/08/2021 11:2 1 AM CDT Narrative [facility] - 03/08/2021 3:38 PM CDT Release to patient->Immediate us Srinivasa Lee MD HEMATOLOGY ORDERABLES Final Result [facility] [address] [place] [address], * (ABNORMAL) CMP (COMPREHENSIVE METABOLIC PANEL) (03/08/2021 11:21 AM CDT) Glucose 250(H) 70 - 105 mg/dL [facility] Blood Urea Nitrogen 37(H) 7 - 25 mg/dL [facility] Creatinine 1.6(H) 0.6 - 1.2 mg/dL [facility] Sodium 141 136 - 145 mEq/L [facility] Potassium 5.4(H) 3.5 - 5.1 mEq/L [facility] Chloride 112(H) 98 - 107 mEq/L [facility] Bicarbonate 24 21 - 31 mEq/L [facility] Total Bilirubin 0.3 0.3 - 1.0 mg/dL [facility] Alk. Phosphatase 66 34 - 104 U/L [facility] Aspartate Aminotransferase 17 13 - 39 U/L [facility] Alanine Aminotransferase 14 7 - 52 U/L [facility] Total Protein 4.9(L) 6.4 - 8.9 g/dL [facility] Albumin 2.9(L) 3.5 - 5.7 g/dL [facility] Calcium 8.6 8.6 - 10.3 mg/dL [facility] Anion Gap 10.4 7.0 - 15.0 mEq/L [facility] Globulin 2.0 2.0 - 3.5 g/dL [facility] EGFR (Non ) 33.0(L) >60.0 ml/min [facility] EGFR () 39.9(L) >60.0 ml/min [facility] Blood 03/08/2021 11:2 1 AM CDT [facility] - 03/08/2021 12:56 PM CDT IS THE PATIENT REQUIRED TO BE FASTING FOR 8 HOURS?->No Release to patient->Immediate us Srinivasa Lee MD CHEMISTRY ORDERABLES Final R esult [facility] [place] [address], [place] [phone] * LACTATE DEHYDROGENASE (LD) (03/08/2021 11:21 AM CDT) LDH 176 140 - 271 U/L [facility] Blood 03/08/2021 11:2 1 AM CDT [facility] - 03/08/2021 12:55 PM CDT Release to patient->Immediate us Srinivasa Lee MD CHEMISTRY ORDERABLES Final R esult [facility] [place] [address], [place] [phone] * FOLIC ACID (FOLATE) (03/08/2021 11:21 AM CDT) Folate 14.72 >=5.90 ng/mL CANCER SALES REPRESENTATIVE [employer] [facility] Blood 03/08/2021 11:2 1 AM CDT [facility] 03/09/2021 3:34 PM CDT IS THE PATIENT REQUIRED TO BE FASTING FOR 12 HOURS?->No Release to patient->Immediate us Srinivasa Lee MD CHEMISTRY ORDERABLES Final R esult Performing Organization Address City/[facility]/ZIP Co de Phone Number CANCER SALES REPRESENTATIVE [employer] [facility] [address] [place] [address], [place] [phone] * FERRITIN (03/08/2021 11:21 AM CDT) Ferritin 109 11 - 307 ng/mL [facility] SALES REPRESENTATIVE [facility] Blood 03/08/2021 11:2 1 AM CDT [facility] CANCER SALES REPRESENTATIVE [employer] [facility] - 03/09/2021 3:34 PM CDT Release to patient->Immediate Srinivasa Lee MD CHEMISTRY ORDERABLES Final R esult Performing Organization Address [facility] Co de Phone Number CANCER SALES REPRESENTATIVE [facility] [address] [place] [address], [place] [phone] * RETICULOCYTE COUNT (RETIC) (03/08/2021 11:21 AM CDT) Reticulocyte count 1.11 0.50 - 1.70 % [facility] RET-He 34.60 28.20 - 36.60 pg [facility] Comment: RET-He is a direct assessment of incorporation of iron into erythrocyte hemoglobin. It provides an indirect measure of the iron available for new erythropoiesis over past 2-4 days. Blood 03/08/2021 11:2 1 AM CDT [facility] - 03/08/2021 11:35 AM CDT Release to patient->Immediate Srinivasa Lee MD HEMATOLOGY ORDERABLES Final Result Performing Organization Address City[facility]/ZIP Co de Phone Number [facility] [address] [address], [place] [phone] * (ABNORMAL) IRON W/ IRON BINDING CAPACITY [place] (03/08/2021 11:21 AM CDT) IRON 70 50 - 212 ug/dL [facility] [place] UIBC 164 155 - 355 ug/dL [facility] TIBC 234(L) 261 - 478 ug/dl [facility] % Saturation 30 20 - 50 % [facility] 03/08/2021 11:2 1 AM CDT [facility] - 03/08/2021 12:55 PM CDT Release to patient->Immediate us Srinivasa Lee MD LAB SEND OUTS Final Result [facility] [address] [address], [place] [phone] * VITAMIN B12 (03/08/2021 11:21 AM CDT) Vitamin B12 384 180 - 914 pg/mL CANCER SALES REPRESENTATIVE [employer] [facility] Blood 03/08/2021 11:2 1 AM CDT Narrative [facility] SALES REPRESENTATIVE [facility] 03/09/2021 3:34 PM CDT Release to patient->Immediate Srinivasa Lee MD CHEMISTRY ORDERABLES Final R esult Performing Organization Address City[facility]/ZIP Co de Phone Number CANCER SALES REPRESENTATIVE PR[employer]ING P[employer]ER [facility] [address] [place] [address], [place] [phone] * (ABNORMAL) IMMUNOGLOBULIN IGA, IGG & IGM QUANT (03/08/2021 11:21 AM CDT) IGG 484(L) 635 - 1,741 mg/dL CANCER SALES REPRESENTATIVE PR[employer] P[employer] [facility] IGA 181 66 - 433 mg/dL CANCER SALES REPRESENTATIVE PR[employer] P[employer]ER [facility] IGM 54 45 - 281 mg/dL CANCER SALES REPRESENTATIVE PR[employer] [facility] Blood 03/08/2021 11:2 1 AM CDT Narrative [facility]ES REPRESENT[facility] 03/09/2021 2:51 PM CDT Release to patient->Immediate us Srinivasa Lee MD CHEMISTRY ORDERABLES Final R esult CANCER SALES REPRESENTATIVE PRINTING PAPER OF [facility] [place] [address], * (ABNORMAL) ELECTROPHORESIS W/ TOTAL PROTEIN SERUM (03/08/2021 11:21 AM CDT) PROTEIN, TOTAL, SERUM 5.0(L) 6.0 - 8.5 G/DL [facility] ALBUMIN 2.4(L) 2.9 - 4.4 G/DL [facility] [id number] 0.3 0.0 - 0.4 G/DL [facility] [id number] 0.8 0.4 - 1.0 G/DL [facility] BETA GLOBULIN 0.9 0.7 - 1.3 G/DL [facility] GAMMA GLOBULIN 0.6 0.4 - 1.8 G/DL [facility] M-SPIKE NOT OBSERVED NOT OBSERVED G/DL [facility] GLOBULIN, TOTAL 2.6 2.2 - 3.9 G/DL [facility] A/G RATIO 0.9 0.7 - 1.7 [facility] PLEASE NOTE: [facility] Comment: PROTEIN ELECTROPHORESIS SCAN WILL FOLLOW VIA COMPUTER, MAIL, OR VICE PRESIDENT MEDICAL AFFAIRS DELIVERY. PDF . [facility] Blood 03/08/2021 11:[address] [facility] - 03/09/2021 3:10 PM CDT TESTING PERFORMED AT: [] [address], [address], PHONE: [phone], REFERRAL SPECIALIST: PEGGY MARCUS, PHD Release to patient->Immediate Srinivasa Lee MD CHEMISTRY ORDERABLES Final R esult [facility] * IMMUNOFIXATION, SERUM [place] (03/08/2021 11:21 AM CDT) IMMUNOFIXATION RESULT, SERUM COMMENT [facility] Comment:NO MONOCLONALITY DET ECTED. 03/08/2021 11:2 1 AM CDT Narrative [facility] - 03/09/2021 3:10 PM CDT TESTING PERFORMED AT: [[address], [address], PHONE: [phone], REFERRAL SPECIALIST: PEGGY MARCUS, PHD Release to patient->Immediate Srinivasa Lee MD LAB SEND OUTS Final Result Performing Organization Address [facility] Co de Phone Number [facility] * (ABNORMAL) FREE KAPPA & LAMBDA LIGHT CHAINS SERUM (03/08/2021 11:21 AM CDT) FREE KAPPA LT CHAINS,S 75.2(H) 3.3 - 19.4 MG/L [facility] FREE LAMBDA LT CHAINS,S 50.0(H) 5.7 - 26.3 MG/L [facility] FREE KAPPA/FREE LAMBDA RATIO LT CHAINS 1.50 0.26 - 1.65 [facility] Blood 03/08/2021 11:2 1 AM CDT Narrative [facility] - 03/09/2021 8:13 PM CDT TESTING PERFORMED AT: [] [address], [address], PHONE: [phone], REFERRAL SPECIALIST: PEGGY MARCUS, PHD Release to patient->Immediate Srinivasa Lee MD CHEMISTRY ORDERABLES Final R esult Performing Organization Address [facility]/ZIP Co de Phone Number [facility] * (ABNORMAL) BETA 2 MICROGLOBULIN (03/08/2021 11:21 AM CDT) [id number] 7.26(H) 0.97 - 1.84 mg/L CANCER SALES REPRESENTATIVE PRINTING PAPER [facility] Blood 03/08/2021 11:2 1 AM CDT Narrative [facility]ES REPRESENT[facility]IVE [facility] - 03/09/2021 2:51 PM CDT Release to patient->Immediate us Srinivasa Lee MD CHEMISTRY ORDERABLES Final R esult CANCER SALES REPRESENTATIVE PRINTING PAPER OF [facility] [address] [place] [address], documented in this encounter Visit Diagnoses Diagnosis Hypogammaglobulinemia (HCC) Hypogammaglobulinaemia, unspecified Anemia of unknown etiology Anemia, unspecified documented in this encounter Additional Health Concerns Assessment Noted Time PHQ-9 Depression Total Score: 0 03/08/20 21 11:06 AM CDT documented as of this encounter Care Teams Healthcare Analyst Relationship Specialty Start Date End Date Jonatan Worley [address] [place] [address] PCP - General Family Medicine 07/12/20 Srinivasa Lee MD [address] [place] [id number] Consulting Physician Oncology 07/12/20 documented as of this encounter
--- OUTSIDE RECORDS SUMMARY | 2024-08-29 04:34 | XMS_ITS | Encounter Summary ---
Author Organization [facility] Address [address] [place] [address] Phone Care Team Providers Care Wet End Tester Name Role Phone Jonatan oWrley Primary Care Provider Srinivasa Lee MD Unavailable [phone] Encounter Details Date Type Department Care Team (Late st Contact Info) Description 12/06/2021 Telephone [facility] [place] [address] [place] [address] Srinivasa Lee MD [facility] [place] [address] [address] Social History Tobacco Use Types [...] on file Legal Sex Female 11:51 AM HEAD GRINDER Gender Identity Not on file Sexual Orientation Not on file documented as of this encounter Miscellaneous Notes * Telephone Encounter - Bebeto Malagonelle - 12/06/2021 10:45 AM CDT Pt's stated that Mrs. Ernandez in the hospital at [facility]. documented in this encounter Plan of Treatment Upcoming Encounters Date Type Department Care Team (Late st Contact Info) Description 10/18/2024 1:30 PM HEAD GRINDER Office Visit [facility] [address] [place] [phone] Srinivasa Lee MD [address] [facility] [address] [place] [address] documented as of this encounter Visit Diagnoses Not on filedocumented in this encounter Additional Health Concerns Assessment Noted Time PHQ-9 Depression Total Score: 0 03/08/20 21 11:06 AM CDT documented as of this encounter Care Teams Wet End Tester Relationship Specialty Start Date End Date WorleyJonatan [address] [place] [address] PCP - General Family Medicine 07/12/20 Srinivasa Lee MD [address] [place] [phone] Consulting Physician Oncology 07/12/20 documented as of this encounter
--- OUTSIDE RECORDS SUMMARY | 2024-08-29 04:34 | XMS_ITS | Encounter Summary ---
Author Organization [facility] Address [address] [place] [address] Phone Care Team Providers Care Family Practice Nurse Practitioner Name Role Phone Jonatan Worley Primary Care Provider [phone] Srinivasa Lee MD Unavailable [phone] Reason for Visit * Reason Comments Follow-up Encounter Details Date Type Department Care Team (Latest Contact Info) Description 12/14/2021 9:30 AM CDT Office Visit [facility] [address] [address] Buzz Sales, RICCI Hypogammaglobulinemia (HCC) [...] on file Legal Sex Female 11:51 AM IMAGING ENGINEER Gender Identity Not on file Sexual [...] : 1960 [facility] Date: 12/14/2021 Care Team: Current Providers PCP: Jonatan Worley Care Team Provider: Srinivasa Lee MD Encounter Provider: Buzz Sales PAC Referring Provider: Jonatan Worley Physician Lawn Sprinkler Servicer: Buzz Sales PAC HISTORY OF PRESENT ILLNESS: [...] 4 TIMES DAILY ??? ergocalciferol (VITAMIN D) 53488 UNIT Capsule TAKE 1 CAPSULE BY MOUTH [...] 760 - 4,000 cells/uL Final ??? Absolute Brewster Count 09/06/2021 929 160 - 1,200 cells/uL [...] st Contact Info) Description 10/18/2024 1:30 PM IMAGING ENGINEER Office Visit [facility] [address] [place] [phone] Srinivasa Lee MD [facility] [address] [place] [address] documented as of this encounter Results * FOLIC ACID (FOLATE) (03/15/2022 9:34 AM CDT) Folate 16.97 >=5.90 ng/mL [facility] Blood 03/15/2022 9:34 AM CDT Narrative [facility] - 03/15/2022 2:16 PM CDT IS THE PATIENT REQUIRED TO BE FASTING FOR 12 HOURS?->No Release to patient->Immediate Buzz Sales PAC CHEMISTRY ORDERABLES Final Result CANCER OILING MACHINE OPERATOR [facility] Care [facility] [address] [place] [address], [place] [phone] * VITAMIN B12 (03/15/2022 9:34 AM CDT) Vitamin B12 319 180 - 914 pg/mL [facility] OILING [facility]ACHINE [facility] Blood 03/15/2022 9:34 AM CDT Narrative [facility] - 03/15/2022 2:16 PM CDT Release to patient->Immediate Buzz Sales PAC CHEMISTRY ORDERABLES Final Result [facility]ER OILING [facility]ACHINE [facility] [address] [place] [address], [place] [phone] * FERRITIN (03/15/2022 9:34 AM CDT) Ferritin 64 11 - 307 ng/mL [facility] OILING [facility]ACHINE [facility] Blood 03/15/2022 9:34 AM CDT [place]alia [facility] MARYVALE OILING MACHINE OPERATORCHI [facility] - 03/15/2022 2:16 PM CDT Release to patient->Immediate Buzz Sales PAC CHEMISTRY ORDERABLES Final Result Performing Organization Address City/[facility]/ZIP Co de Phone Number CANCER OILING MACHINE OPERATOR [facility] [address] [place] [address], [place] [phone] * (ABNORMAL) IRON W/ IRON BINDING CAPACITY [place] (03/15/2022 9:34 AM CDT) IRON 54 50 - 212 ug/dL [facility] UIBC 197 155 - 355 ug/dL [facility] TIBC 251(L) 261 - 478 ug/dl [facility] % Saturation 22 20 - 50 % [facility] Blood 03/15/2022 9:34 AM CDT [facility] - 03/15/2022 10:46 AM CDT Release to patient->Immediate Buzz Sales PAC LAB SEND OUTS Final Resu lt Performing Organization Address City/[facility]/ZIP Co de Phone Number [facility] [address] [place] [address], [place] [phone] * (ABNORMAL) CMP (COMPREHENSIVE METABOLIC PANEL) (03/15/2022 9:34 AM CDT) Glucose 176(H) 70 - 105 mg/dL [facility] Blood Urea Nitrogen 44(H) 7 - 25 mg/dL [facility] Creatinine 2.6(H) 0.6 - 1.2 mg/dL [facility] Sodium 138 136 - 145 mEq/L [facility] Potassium 4.7 3.5 - 5.1 mEq/L [facility] Chloride 109(H) 98 - 107 mEq/L [facility] Bicarbonate 22 21 - 31 mEq/L [facility] Total Bilirubin 0.3 0.3 - 1.0 mg/dL [facility] Alk. Phosphatase 69 34 - 104 U/L [facility] Aspartate Aminotransferase 15 13 - 39 U/L [facility] Alanine Aminotransferase 11 7 - 52 U/L [facility] Total Protein 5.1(L) 6.4 - 8.9 g/dL [facility] Albumin 3.2(L) 3.5 - 5.7 g/dL [facility] Calcium 8.7 8.6 - 10.3 mg/dL [facility] Anion Gap 11.7 7.0 - 15.0 mEq/L [facility] Globulin 1.9(L) 2.0 - 3.5 g/dL [facility] EGFR 20(L) >60 ml/min/1. 73m2 [facility] Comment: This eGFR is calculated using 2020 CKD-EPI Creatinine equation without race modifier based on the NKF-ASN task force recommendations Blood 03/15/2022 9:34 AM CDT Narrative [facility] - 03/15/2022 10:46 AM CDT IS THE PATIENT REQUIRED TO BE FASTING FOR 8 HOURS?->No Release to patient->Immediate Buzz Sales PAC CHEMISTRY ORDERABLES Final Result [facility] [address] [id number], * (ABNORMAL) COMPLETE BLOOD COUNT (CBC) WITH DIFF (03/15/2022 9:34 AM CDT) WBC 8.7 4.0 - 10.0 10*3/uL [facility] HGB 10.4(L) 11.2 - 15.7 g/dL [facility] HCT 30.5(L) 34.1 - 44.9 % [facility] PLT 186 163 - 369 10*3/uL [facility] MPV 10.9 9.4 - 12.4 fL [facility] RBC 3.47(L) 3.93 - 5.22 10*6/uL [facility] MCV 88 79 - 95 fL [facility] MCH 30.0 25.6 - 32.2 pg [facility] MCHC 34.1 32.2 - 36.5 g/dL [facility] RDW 12.6 11.6 - 14.4 % [facility] Absolute Neutrophil Count 4,982 cells/uL [facility] Absolute Seg Count 4,982 1,440 - 6,600 cells/uL [facility] Absolute Lymph Count 1,923 760 - 4,000 cells/uL [facility] Absolute [place]ster Count 1,049 160 - 1,200 cells/uL [facility] Absolute Eos Count 699(H) 0 - 300 cells/uL [facility] Absolute Baso Count 87 0 - 100 cells/uL [facility] Segmented Neutrophils 57 36 - 66 % [facility] Lymphocytes 22 19 - 40 % [facility] [place] Monocytes 12 4 - 12 % [facility] Eosinophils 8(H) 0 - 3 % [facility] Basophils 1 0 - 1 % [facility] WBC Estimate Normal [facility] Platelet Estimate Normal [facility] RBC Morphology Normal [facility] Blood 03/15/2022 9:34 AM CDT Narrative [facility] - 03/15/2022 11:41 AM CDT Release to patient->Immediate Buzz Sales PAC HEMATOLOGY ORDERABLES Kym l Result [facility] [address] [place] [address], * IMMUNOGLOBULIN IGA, IGG & IGM QUANT (12/14/2021 9:45 AM CDT) IGG 659 635 - 1,741 mg/dL [facility] IGA 204 66 - 433 mg/dL [facility] IGM 64 45 - 281 mg/dL [facility] Blood 12/14/2021 9:45 AM CDT [facility] CANCER OILING MACHINE OPERATOR [facility] - 12/17/2021 2:18 PM CDT Release to patient->Immediate Buzz Sales PAC CHEMISTRY ORDERABLES Final Result Performing Organization Address [facility]/ZIP Co de Phone Number CANCER OILING MACHINE OPERATOR [facility] [address] [place] [address], * FOLIC ACID (FOLATE) (12/14/2021 9:45 AM CDT) Folate 12.52 >=5.90 ng/mL CANCER OILING MACHINE OPERATOR [facility] Blood 12/14/2021 9:45 AM CDT [facility] CANCER OILING [facility]ACH[facility] - 12/17/2021 3:24 PM CDT IS THE PATIENT REQUIRED TO BE FASTING FOR 12 HOURS?->No Release to patient->Immediate Buzz [place] PAC CHEMISTRY ORDERABLES Final Result Performing Organization Address [facility] Co de Phone Number CANCER OILING MACHINE OPERATOR [facility] [address] [place] [address], * VITAMIN B12 (12/14/2021 9:45 AM CDT) Vitamin B12 360 180 - 914 pg/mL CAN[facility] OILING [facility]ACHINE [facility] Blood 12/14/2021 9:45 AM CDT [facility] CANCER OILING [facility]ACHINE [facility] - 12/17/2021 3:24 PM CDT IS THE PATIENT REQUIRED TO BE FASTING FOR 12 HOURS?->No Release to patient->Immediate Buzz Sales PAC CHEMISTRY ORDERABLES Final Result Performing Organization Address City/[facility]/ZIP Co de Phone Number CANCER OILING MACHINE OPERATOR [facility] [address] [place] [address], [place] [phone] * FERRITIN (12/14/2021 9:45 AM CDT) Ferritin 81 11 - 307 ng/mL [facility] OILING MACHINE [facility] Blood 12/14/2021 9:45 AM CDT [place] [facility] MARYVALE OILING MACHINE OPERATORCHI [facility] - 12/17/2021 3:24 PM CDT IS THE PATIENT REQUIRED TO BE FASTING FOR 12 HOURS?->No Release to patient->Immediate Buzz Sales PAC CHEMISTRY ORDERABLES Final Result Performing Organization Address City/[facility]/ZIP Co de Phone Number CANCER OILING MACHINE OPERATOR [facility] Care [facility] [address] [place] [address], [place] [phone] * (ABNORMAL) IRON W/ IRON BINDING CAPACITY [place] (12/14/2021 9:45 AM CDT) IRON 62 50 - 212 ug/dL [facility] UIBC 188 155 - 355 ug/dL [facility] TIBC 250(L) 261 - 478 ug/dl [facility] % Saturation 25 20 - 50 % [facility] Blood 12/14/2021 9:45 AM CDT [facility] - 12/14/2021 10:38 AM CDT Release to patient->Immediate Buzz Sales PAC LAB SEND OUTS Final Resu lt Performing Organization Address City/[facility]/ZIP Co de Phone Number [facility] [address] [place] [address], [place] [phone] * (ABNORMAL) CMP (COMPREHENSIVE METABOLIC PANEL) (12/14/2021 9:45 AM CDT) Glucose 199(H) 70 - 105 mg/dL [facility] Blood Urea Nitrogen 35(H) 7 - 25 mg/dL [facility] Creatinine 2.0(H) 0.6 - 1.2 mg/dL [facility] Sodium 139 136 - 145 mEq/L [facility] Potassium 5.3(H) 3.5 - 5.1 mEq/L [facility] Chloride 111(H) 98 - 107 mEq/L [facility] Bicarbonate 22 21 - 31 mEq/L [facility] Total Bilirubin 0.4 0.3 - 1.0 mg/dL [facility] Alk. Phosphatase 81 34 - 104 U/L [facility] Aspartate Aminotransferase 15 13 - 39 U/L [facility] Alanine Aminotransferase 12 7 - 52 U/L [facility] Total Protein 5.3(L) 6.4 - 8.9 g/dL [facility] Albumin 3.2(L) 3.5 - 5.7 g/dL [facility] Calcium 8.6 8.6 - 10.3 mg/dL [facility] Anion Gap 11.3 7.0 - 15.0 mEq/L [facility] Globulin 2.1 2.0 - 3.5 g/dL [facility] EGFR 28(L) >60 ml/min/1. 73m2 [facility] Comment: This eGFR is calculated using 2020 CKD-EPI Creatinine equation without race modifier based on the NKF-ASN task force recommendations Blood 12/14/2021 9:45 AM CDT Narrative [facility] - 12/14/2021 10:38 AM CDT Release to patient->Immediate Buzz Sales PAC CHEMISTRY ORDERABLES Final Result [facility] [address] [id number], * (ABNORMAL) COMPLETE BLOOD COUNT (CBC) WITH DIFF (12/14/2021 9:45 AM CDT) WBC 8.3 4.0 - 10.0 10*3/uL [facility] HGB 10.5(L) 11.2 - 15.7 g/dL [facility] HCT 31.9(L) 34.1 - 44.9 % [facility] PLT 201 163 - 369 10*3/uL [facility] MPV 10.8 9.4 - 12.4 fL [facility] RBC 3.66(L) 3.93 - 5.22 10*6/uL [facility] MCV 87 79 - 95 fL [facility] MCH 28.7 25.6 - 32.2 pg [facility] MCHC 32.9 32.2 - 36.5 g/dL [facility] RDW 13.0 11.6 - 14.4 % [facility] Absolute Neutrophil Count 5,491 cells/uL [facility] Absolute Seg Count 5,491 1,440 - 6,600 cells/uL [facility] Absolute Lymph Count 1,498 760 - 4,000 cells/uL [facility] Absolute [place] Count 582 160 - 1,200 cells/uL [facility] Absolute Eos Count 666(H) 0 - 300 cells/uL [facility] Absolute Baso Count 83 0 - 100 cells/uL [facility] Segmented Neutrophils 66 36 - 66 % [facility] Lymphocytes 18(L) 19 - 40 % [facility] Monocytes 7 4 - 12 % [facility] Eosinophils 8(H) 0 - 3 % [facility] Basophils 1 0 - 1 % [facility] WBC Estimate Normal [facility] Platelet Estimate Normal [facility] RBC Morphology Normal [facility] Blood 12/14/2021 9:45 AM CDT Narrative [facility] - 12/14/2021 11:05 AM CDT Release to patient->Immediate Buzz Sales PAC HEMATOLOGY ORDERABLES Kym tineo Result [facility] [address] [place] [address], documented in this encounter Visit Diagnoses Diagnosis [...] documented as of this encounter Care Teams Family Practice Nurse Practitioner Relationship Specialty Start Date End Date Jonatan Worley [address] [place] [address] PCP - General Family Medicine 07/12/20 Srinivasa Lee MD [address] [place] [address] Consulting Physician Oncology 07/12/20 documented as of this encounter
--- OUTSIDE RECORDS SUMMARY | 2024-08-29 04:34 | XMS_ITS | Encounter Summary ---
Author Organization [facility] Address [address] [place] [address] Phone Care Team Providers Care Skein Inspector Name Role Phone Jonatan Worley Primary Care Provider Srinivasa Lee MD Unavailable [phone] Encounter Details Date Type Department Care Team (Latest Contact Info) Description 03/15/2022 9:20 AM CDT Lab [facility] [address] [address] Lab, [facility] [place] Hypogammaglobulinemia (HCC); Anemia of unknown [...] on file Legal Sex Female 11:51 AM DIESEL SERVICE JOURNEYMAN Gender Identity Not on file Sexual Orientation [...] st Contact Info) Description 10/18/2024 1:30 PM DIESEL SERVICE JOURNEYMAN Office Visit [facility] [address] [place] [address] Srinivasa Lee MD [address] [place], [place] [address] documented as of this encounter Procedures Procedure [...] - 10.0 10*3/uL [facility] HGB 10.4(L) 11.2 - 15.7 g/dL [facility] HCT 30.5(L) 34.1 - 44.9 % [facility] PLT 186 163 - 369 10*3/uL [facility] MPV 10.9 9.4 - 12.4 fL [facility] RBC 3.47(L) 3.93 - 5.22 10*6/uL [facility] MCV 88 79 - 95 fL [facility] MCH 30.0 25.6 - 32.2 pg [facility] MCHC 34.1 32.2 - 36.5 g/dL [facility] RDW 12.6 11.6 - 14.4 % [facility] Absolute Neutrophil Count 4,982 cells/uL [facility] Absolute Seg Count 4,982 1,440 - 6,600 cells/uL [facility] Absolute Lymph Count 1,923 760 - 4,000 cells/uL [facility] Absolute [place] Count 1,049 160 - 1,200 cells/uL [facility] Absolute Eos Count 699(H) 0 - 300 cells/uL [facility] Absolute Baso Count 87 0 - 100 cells/uL [facility] Segmented Neutrophils 57 36 - 66 % [facility] Lymphocytes 22 19 - 40 % [facility] Monocytes 12 4 - 12 % [facility] Eosinophils 8(H) 0 - 3 % [facility] Basophils 1 0 - 1 % [facility] WBC Estimate Normal [facility] Platelet Estimate Normal [facility] RBC Morphology Normal [facility] Blood 03/15/2022 9:34 AM CDT Narrative [facility] - 03/15/2022 11:41 AM CDT Release to patient->Immediate Buzz Sales PAC HEMATOLOGY ORDERABLES Kym l Result [facility] Special[facility] [address] [place] [address], * (ABNORMAL) CMP (COMPREHENSIVE METABOLIC PANEL) (03/15/2022 9:34 AM CDT) Glucose 176(H) 70 - 105 mg/dL [facility] Blood Urea Nitrogen 44(H) 7 - 25 mg/dL [facility] Creatinine 2.6(H) 0.6 - 1.2 mg/dL [facility] Sodium 138 136 - 145 mEq/L [facility] Potassium 4.7 3.5 - 5.1 mEq/L [facility] Chloride 109(H) 98 - 107 mEq/L [facility] Bicarbonate 22 21 - 31 mEq/L [facility] Total Bilirubin 0.3 0.3 - 1.0 mg/dL [facility] Alk. Phosphatase 69 34 - 104 U/L [facility] Aspartate Aminotransferase 15 13 - 39 U/L [facility] Alanine Aminotransferase 11 7 - 52 U/L [facility] Total Protein 5.1(L) 6.4 - 8.9 g/dL [facility] Albumin 3.2(L) 3.5 - 5.7 g/dL [facility] Calcium 8.7 8.6 - 10.3 mg/dL [facility] Anion Gap 11.7 7.0 - 15.0 mEq/L [facility] Globulin 1.9(L) 2.0 - 3.5 g/dL [facility] EGFR 20(L) >60 ml/min/1. 73m2 [facility] Comment: This eGFR is calculated using 2020 CKD-EPI Creatinine equation without race modifier based on the NKF-ASN task force recommendations Blood 03/15/2022 9:34 AM CDT Narrative [facility] - 03/15/2022 10:46 AM CDT IS THE PATIENT REQUIRED TO BE FASTING FOR 8 HOURS?->No Release to patient->Immediate Buzz Sales PAC CHEMISTRY ORDERABLES Final Result [facility] Cancer [facility] [address] [place] [address], * (ABNORMAL) IRON W/ IRON BINDING CAPACITY [place] (03/15/2022 9:34 AM CDT) IRON 54 50 - 212 ug/dL [facility] UIBC 197 155 - 355 ug/dL [facility] TIBC 251(L) 261 - 478 ug/dl [facility] % Saturation 22 20 - 50 % [facility] Blood 03/15/2022 9:34 AM CDT [facility] - 03/15/2022 10:46 AM CDT Release to patient->Immediate us Buzz Sales PAC LAB SEND OUTS Final Resu lt [facility] [address] [place] [address], [place] [phone] * FERRITIN (03/15/2022 9:34 AM CDT) Ferritin 64 11 - 307 ng/mL [facility] THERMOMETER [facility] Blood 03/15/2022 9:34 AM CDT [facility] - 03/15/2022 2:16 PM CDT Release to patient->Immediate us Buzz Sales PAC CHEMISTRY ORDERABLES Final Result Performing Organization Address [facility] Co de Phone Number CANCER THERMOMETER [facility] Cancer [facility] [address] [place] [address], [place] [phone] * VITAMIN B12 (03/15/2022 9:34 AM CDT) Vitamin B12 319 180 - 914 pg/mL [facility] Blood 03/15/2022 9:34 AM CDT [facility] - 03/15/2022 2:16 PM CDT Release to patient->Immediate us Buzz Sales PAC CHEMISTRY ORDERABLES Final Result Performing Organization Address City/[facility]/ZIP Co de Phone Number CAN[facility]ER THERMOMETER [facility] Cancer Care Specialists [facility] [address] [place] [address], [place] [phone] * FOLIC ACID (FOLATE) (03/15/2022 9:34 AM CDT) Folate 16.97 >=5.90 ng/mL [facility] THERMOMETER [facility] Blood 03/15/2022 9:34 AM CDT Narrative [facility] THERMOMETER [facility] - 03/15/2022 2:16 PM CDT IS THE PATIENT REQUIRED TO BE FASTING FOR 12 HOURS?->No Release to patient->Immediate us Buzz Sales PAC CHEMISTRY ORDERABLES Final Result [facility] THERMOMETER [facility] [address] [place] [address], documented in this encounter Visit Diagnoses Diagnosis Hypogammaglobulinemia (HCC) Hypogammaglobulinaemia, unspecified Anemia of unknown etiology Anemia, unspecified documented in this encounter Additional Health Concerns Assessment Noted Time PHQ-9 Depression Total Score: 0 03/08/20 21 11:06 AM CDT documented as of this encounter Care Teams Skein Inspector Relationship Specialty Start Date End Date Jonatan Worley [address] [place] [address] PCP - General Family Medicine 07/12/20 Srinivasa Lee MD [address] [place] [address] Consulting Physician Oncology 07/12/20 documented as of this encounter
--- OUTSIDE RECORDS SUMMARY | 2024-08-29 04:34 | XMS_ITS | Encounter Summary ---
Author Organization [facility] Address [address] [place] [address] Phone Care Team Providers Care Oyster Shucker Name Role Phone Jonatan Worley Primary Care Provider Srinivasa Lee MD Unavailable [phone] Encounter Details Date Type Department Care Team (Late Contact Info) Description 07/28/2020 12:30 PM MARBLE INSTALLER SUPERVISOR Lab [facility] [address] [phone] Lab, Cc [facility] Anemia of unknown etiology; Hypogammaglobulinemia (HCC) [...] on file Legal Sex Female 11:51 AM MARBLE INSTALLER SUPERVISOR Gender Identity Not on file Sexual Orientation Not on file COVID-19 Exposure Response Date Recorded In the last month, have you been in contact with someone who was confirmed or suspected to have Coronavirus / COVID-19? No / Unsure 07/28/2020 10:59 AM MARBLE INSTALLER SUPERVISOR documented as of this encounter Plan of Treatment Upcoming Encounters Date Type Department Care Team (Late st Contact Info) Description 10/18/2024 1:30 PM MARBLE INSTALLER SUPERVISOR Office Visit [facility] [place] [address] [place] [address] Srinivasa Lee MD [address] [place] [address] documented as of this encounter Procedures Procedure Name Priority Date/Time Associated Diagnosis Comments VITAMIN B12 Routine 07/28/2020 12:05 PM MARBLE INSTALLER SUPERVISOR Anemia of unknown etiology Hypogammaglobuline ellen (HCC) RETICULOCYTE COUNT (RETIC) Routine 07/28/2020 12:05 PM MARBLE INSTALLER SUPERVISOR Anemia of unknown etiology Hypogammaglobuline ellen (HCC) LACTATE DEHYDROGENASE (LD) Routine 07/28/2020 12:05 PM MARBLE INSTALLER SUPERVISOR Anemia of unknown etiology Hypogammaglobuline ellen (HCC) IMMUNOGLOBULIN IGA, IGG & IGM QUANT Routine 07/28/2020 12:05 PM MARBLE INSTALLER SUPERVISOR Anemia of unknown etiology Hypogammaglobuline ellen (HCC) HAPTOGLOBIN Routine 07/28/2020 12:05 PM MARBLE INSTALLER SUPERVISOR Anemia of unknown etiology Hypogammaglobuline ellen (HCC) FOLIC ACID (FOLATE) Routine 07/28/2020 1 2:05 PM MARBLE INSTALLER SUPERVISOR Anemia of unknown etiology Hypogammaglobuline ellen (HCC) COMPLETE BLOOD COUNT (CBC) WITH DIFF Routine 07/28/2020 12:05 PM MARBLE INSTALLER SUPERVISOR Anemia of unknown etiology Hypogammaglobuline ellen (HCC) documented in this encounter Results * (ABNORMAL) COMPLETE BLOOD COUNT (CBC) WITH DIFF (07/28/2020 12:05 PM MARBLE INSTALLER SUPERVISOR) WBC 8.2 4.0 - 10.0 10*3/uL [facility] HGB 10.7(L) 11.2 - 15.7 g/dL [facility] HCT 31.2(L) 34.1 - 44.9 % [facility] PLT 172 163 - 369 10*3/uL [facility] MPV 10.3 9.4 - 12.4 fL [facility] RBC 3.66(L) 3.93 - 5.22 10*6/uL [facility] MCV 85 79 - 95 fL [facility] MCH 29.2 25.6 - 32.2 pg [facility] MCHC 34.3 32.2 - 36.5 g/dL [facility] RDW 12.4 11.6 - 14.4 % [facility] Absolute Neutrophil Count 5,392 cells/uL [facility] Absolute Seg Count 5,392 1,440 - 6,600 cells/uL [facility] Absolute Lymph Count 1,797 760 - 4,000 cells/uL [facility] Absolute Henry Count 245 160 - 1,200 cells/uL [facility] Absolute Eos Count 735(H) 0 - 300 cells/uL [facility] Segmented Neutrophils 66 36 - 66 % [facility] Lymphocytes 22 19 - 40 % [facility] Monocytes 3(L) 4 - 12 % [facility] Eosinophils 9(H) 0 - 3 % [facility] [place] WBC Estimate Normal [facility] Platelet Estimate Normal [facility] RBC Morphology Normal [facility] Blood 07/28/2020 12:0 5 PM MARBLE INSTALLER SUPERVISOR Narrative [facility] - 07/28/2020 1:49 PM MARBLE INSTALLER SUPERVISOR Release to patient->Immediate Srinivasa Lee MD HEMATOLOGY ORDERABLES Final Result [facility] [address] [place] [address], * LACTATE DEHYDROGENASE (LD) (07/28/2020 12:05 PM MARBLE INSTALLER SUPERVISOR) LDH 176 140 - 271 U/L [facility] Blood 07/28/2020 12:0 5 PM MARBLE INSTALLER SUPERVISOR Narrative [facility] - 07/28/2020 12:45 PM MARBLE INSTALLER SUPERVISOR Release to patient->Immediate Srinivasa Lee MD CHEMISTRY ORDERABLES Final R esult Performing Organization Address [facility] Co de Phone Number [facility] [address] [place] [address], [place] [phone] * RETICULOCYTE COUNT (RETIC) (07/28/2020 12:05 PM MARBLE INSTALLER SUPERVISOR) Reticulocyte count 1.01 0.50 - 1.70 % [facility] RET-He 33.80 28.20 - 36.60 pg [facility] Comment: RET-He is a direct assessment of incorporation of iron into erythrocyte hemoglobin. It provides an indirect measure of the iron available for new erythropoiesis over past 2-4 days. Blood 07/28/2020 12:0 5 PM MARBLE INSTALLER SUPERVISOR [facility] - 07/28/2020 12:11 PM MARBLE INSTALLER SUPERVISOR Release to patient->Immediate Srinivasa Lee MD HEMATOLOGY ORDERABLES Final Result Performing Organization Address [facility] Co de Phone Number [facility] Cancer [facility] [address] [place] [address], [place] [phone] * FOLIC ACID (FOLATE) (07/28/2020 12:05 PM MARBLE INSTALLER SUPERVISOR) Folate 13.32 >=5.90 ng/mL [facility] Blood 07/28/2020 12:0 5 PM MARBLE INSTALLER SUPERVISOR [facility] - 07/31/2020 2:02 PM MARBLE INSTALLER SUPERVISOR IS THE PATIENT REQUIRED TO BE FASTING FOR 12 HOURS?->No Release to patient->Immediate Srinivasa Lee MD CHEMISTRY ORDERABLES Final R esult Performing Organization Address City/[facility] Co de Phone Number [facility] [place] [address], [place] [phone] * VITAMIN B12 (07/28/2020 12:05 PM MARBLE INSTALLER SUPERVISOR) Vitamin B12 345 180 - 914 pg/mL [facility] Blood 07/28/2020 12:0 5 PM MARBLE INSTALLER SUPERVISOR Narrative [facility] - 07/31/2020 2:02 PM MARBLE INSTALLER SUPERVISOR Release to patient->Immediate Srinivasa Lee MD CHEMISTRY ORDERABLES Final R esult Performing Organization Address City/[facility]/ZIP Co de Phone Number [facility] [place] [address] [place] [address], [place] [phone] * HAPTOGLOBIN (07/28/2020 12:05 PM MARBLE INSTALLER SUPERVISOR) HAPTO 85 30 - 200 mg/dL [facility] Blood 07/28/2020 12:0 5 PM MARBLE INSTALLER SUPERVISOR Narrative [facility] - 08/01/2020 1:44 PM MARBLE INSTALLER SUPERVISOR Release to patient->Immediate us Srinivasa Lee MD CHEMISTRY ORDERABLES Final R esult Performing Organization Address [facility]/ZIP Co de Phone Number [facility] [place] [address] [place] [address], [place] [phone] * (ABNORMAL) IMMUNOGLOBULIN IGA, IGG & IGM QUANT (07/28/2020 12:05 PM MARBLE INSTALLER SUPERVISOR) IGG 627(L) 635 - 1,741 mg/dL [facility] IGA 180 66 - 433 mg/dL [facility] IGM 55 45 - 281 mg/dL [facility] Blood 07/28/2020 12:0 5 PM MARBLE INSTALLER SUPERVISOR Narrative [facility] - 07/31/2020 1:40 PM MARBLE INSTALLER SUPERVISOR Release to patient->Immediate us Srinivasa Lee MD CHEMISTRY ORDERABLES Final R esult Performing Organization Address City/[facility]/ZIP Co de Phone Number CANC[facility] SO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
--- OUTSIDE RECORDS SUMMARY | 2024-08-29 04:34 | XMS_ITS | Encounter Summary ---
Author Organization [facility] Address [address] [place] [address] Phone Care Team Providers Care Medical Nurse Name Role Phone Jonatan Worley Primary Care Provider Srinivasa Lee MD Unavailable [phone] Encounter Details Date Type Department Care Team (Late st Contact Info) Description 12/07/2021 Telephone [facility] [place] [address] [place] [address] Srinivasa Lee MD [facility] [address] [address] Social History Tobacco Use Types [...] on file Legal Sex Female 11:51 AM DANCE CRITIC Gender Identity Not on file Sexual Orientation Not on file documented as of this encounter Miscellaneous Notes * Telephone Encounter - Glory Veliz - 12/07/2021 1:35 PM CDT Patient called and rescheduled the 12/06 OV. New appt is on 12/14 documented in this encounter Plan of Treatment Upcoming Encounters Date Type Department Care Team (Late st Contact Info) Description 10/18/2024 1:30 PM DANCE CRITIC Office Visit [facility] [address] [place] [phone] Srinivasa Lee MD [address] [facility] [address] [place] [address] documented as of this encounter Visit Diagnoses Not on filedocumented in this encounter Additional Health Concerns Assessment Noted Time PHQ-9 Depression Total Score: 0 03/08/20 21 11:06 AM CDT documented as of this encounter Care Teams Medical Nurse Relationship Specialty Start Date End Date Jonatan Worley [address] [place] [address] PCP - General Family Medicine 07/12/20 Srinivasa Lee MD [address] [place] [phone] Consulting Physician Oncology 07/12/20 documented as of this encounter
--- OUTSIDE RECORDS SUMMARY | 2024-08-29 04:34 | XMS_ITS | Encounter Summary ---
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 No / Unsure 12/14/2021 9:25 AM CDT documented as of this encounter Progress Notes * Buzz Sales PAC - 12/14/2021 9:45 AM CDT Send labs to supervisor force adjustment and PCP documented in this encounter Plan of Treatment Upcoming Encounters Date Type Department Care Team (Late st Contact Info) Description 10/18/2024 1:30 PM CHIP DRIER Office Visit [facility] [address] [address] Srinivasa Lee MD [address] [place] [address] documented as of this encounter [...] 4.0 - 10.0 10*3/uL [facility] HGB 10.5(L) 11.2 - 15.7 g/dL [facility] HCT 31.9(L) 34.1 - 44.9 % [facility] PLT 201 163 - 369 10*3/uL [facility] MPV 10.8 9.4 - 12.4 fL [facility] RBC 3.66(L) 3.93 - 5.22 10*6/uL [facility] MCV 87 79 - 95 fL [facility] MCH 28.7 25.6 - 32.2 pg [facility] MCHC 32.9 32.2 - 36.5 g/dL [facility] RDW 13.0 11.6 - 14.4 % [facility] Absolute Neutrophil Count 5,491 cells/uL [facility] Absolute Seg Count 5,491 1,440 - 6,600 cells/uL [facility] Absolute Lymph Count 1,498 760 - 4,000 cells/uL [facility] Absolute [place] Count 582 160 - 1,200 cells/uL [facility] Absolute Eos Count 666(H) 0 - 300 cells/uL [facility] Absolute Baso Count 83 0 - 100 cells/uL [facility] Segmented Neutrophils 66 36 - 66 % [facility] Lymphocytes 18(L) 19 - 40 % [facility] [place] [facility] Monocytes 7 4 - 12 % [facility] Eosinophils 8(H) 0 - 3 % [facility] Basophils 1 0 - 1 % [facility] WBC Estimate Normal [facility] Platelet Estimate Normal [facility] RBC Morphology Normal [facility] Blood 12/14/2021 9:45 AM CDT Narrative [facility] - 12/14/2021 11:05 AM CDT Release to patient->Immediate Buzz Sales PAC HEMATOLOGY ORDERABLES Kym l Result [facility] [address] [place] [address], * (ABNORMAL) CMP (COMPREHENSIVE METABOLIC PANEL) (12/14/2021 9:45 AM CDT) Glucose 199(H) 70 - 105 mg/dL [facility] Blood Urea Nitrogen 35(H) 7 - 25 mg/dL [facility] Creatinine 2.0(H) 0.6 - 1.2 mg/dL [facility] Sodium 139 136 - 145 mEq/L [facility] Potassium 5.3(H) 3.5 - 5.1 mEq/L [facility] Chloride 111(H) 98 - 107 mEq/L [facility] Bicarbonate 22 21 - 31 mEq/L [facility] Total Bilirubin 0.4 0.3 - 1.0 mg/dL [facility] Alk. Phosphatase 81 34 - 104 U/L [facility] Aspartate Aminotransferase 15 13 - 39 U/L [facility] Alanine Aminotransferase 12 7 - 52 U/L [facility] Total Protein 5.3(L) 6.4 - 8.9 g/dL [facility] Albumin 3.2(L) 3.5 - 5.7 g/dL [facility] Calcium 8.6 8.6 - 10.3 mg/dL [facility] Anion Gap 11.3 7.0 - 15.0 mEq/L [facility] Globulin 2.1 2.0 - 3.5 g/dL [facility] EGFR 28(L) >60 ml/min/1. 73m2 [facility] Comment: This eGFR is calculated using 2020 CKD-EPI Creatinine equation without race modifier based on the NKF-ASN task force recommendations Blood 12/14/2021 9:45 AM CDT Narrative [facility] - 12/14/2021 10:38 AM CDT Release to patient->Immediate Buzz Sales PAC CHEMISTRY ORDERABLES Final Result [facility] [address] [place] [address], [place] [phone] * (ABNORMAL) IRON W/ IRON BINDING CAPACITY [place] (12/14/2021 9:45 AM CDT) IRON 62 50 - 212 ug/dL [facility] UIBC 188 155 - 355 ug/dL [facility] TIBC 250(L) 261 - 478 ug/dl [facility] % Saturation 25 20 - 50 % [facility] Blood 12/14/2021 9:45 AM CDT Narrative [facility] - 12/14/2021 10:38 AM CDT Release to patient->Immediate us Buzz Sales PAC LAB SEND OUTS Final Resu lt [facility] [address] [place] [address], * FERRITIN (12/14/2021 9:45 AM CDT) Ferritin 81 11 - 307 ng/mL [facility] Blood 12/14/2021 9:45 AM CDT Narrative [facility] - 12/17/2021 3:24 PM CDT IS THE PATIENT REQUIRED TO BE FASTING FOR 12 HOURS?->No Release to patient->Immediate us Buzz Sales PAC CHEMISTRY ORDERABLES Final Result [facility] [address] [place] [address], [place] [phone] * VITAMIN B12 (12/14/2021 9:45 AM CDT) Vitamin B12 360 180 - 914 pg/mL [facility] Blood 12/14/2021 9:45 AM CDT Narrative [facility] SET DESIGNER [facility] - 12/17/2021 3:24 PM CDT IS THE PATIENT REQUIRED TO BE FASTING FOR 12 HOURS?->No Release to patient->Immediate Buzz Sales PAC CHEMISTRY ORDERABLES Final Result [facility] SET DESIGNER [facility] [address] [place] [address], [place] [phone] * FOLIC ACID (FOLATE) (12/14/2021 9:45 AM CDT) Folate 12.52 >=5.90 ng/mL [facility] Blood 12/14/2021 9:45 AM CDT [facility] - 12/17/2021 3:24 PM CDT IS THE PATIENT REQUIRED TO BE FASTING FOR 12 HOURS?->No Release to patient->Immediate Buzz Sales PAC CHEMISTRY ORDERABLES Final Result Performing Organization Address [facility]/ZIP Co de Phone Number CANCER SET DESIGNER [facility] [address] [place] [address], [place] [phone] * IMMUNOGLOBULIN IGA, IGG & IGM QUANT (12/14/2021 9:45 AM CDT) IGG 659 635 - 1,741 mg/dL [facility] IGA 204 66 - 433 mg/dL [facility] IGM 64 45 - 281 mg/dL [facility] DESIGNER [facility] Blood 12/14/2021 9:45 AM CDT [facility] - 12/17/2021 2:18 PM CDT Release to patient->Immediate Buzz Sales PAC CHEMISTRY ORDERABLES Final Result Performing Organization Address City/[facility]/ZIP Co de Phone Number CANCER SET DESIGNER [facility] [place] [address] [place] [address], [place] [phone] documented in this encounter Visit Diagnoses Diagnosis Hypogammaglobulinemia (HCC) Hypogammaglobulinaemia, unspecified Anemia of unknown etiology Anemia, unspecified documented in this encounter Additional Health Concerns Assessment Noted Time PHQ-9 Depression Total Score: 0 03/08/20 21 11:06 AM CDT documented as of this encounter Care Teams Incident Response Engineer Relationship Specialty Start Date End Date Jonatan Worley [address] [place] [address] PCP - General Family Medicine 07/12/20 Srinivasa Lee MD [address] [place] [phone] Consulting Physician Oncology 07/12/20 documented as of this encounter
--- OUTSIDE RECORDS SUMMARY | 2024-08-29 04:34 | XMS_ITS | Encounter Summary ---
Author Organization [facility] Address [address] [place] [address] Phone Care Team Providers Care Biochemistry Specialist Name Role Phone Jonatan Worley Primary Care Provider [phone] Srinivasa Lee MD Unavailable Reason for Visit * Reason Comments Follow-up Encounter Details Date Type Department Care Team (Late st Contact Info) Description 09/06/2021 11:15 AM KEYPUNCHER Office Visit [facility] [address] [address] Srinivasa Lee MD 1052 [facility] [place] [address] [address] Anemia of unknown etiology (Primary [...] on file Legal Sex Female 11:51 AM KEYPUNCHER Gender Identity Not on file Sexual Orientation Not on file COVID-19 Exposure Response Date Recorded In the last month, have you been in contact with someone who was confirmed or suspected to have Coronavirus / COVID-19? No / Unsure 09/06/2021 11:11 AM KEYPUNCHER documented as of this encounter Last Filed Vital Signs Vital Sign Reading Time Taken Comments Blood Pressure 140/88 09/06/2021 11:34 AM KEYPUNCHER Pulse 72 09/06/2021 11:34 AM KEYPUNCHER Temperature - - Respiratory Rate - - Oxygen Saturation 97% 09/06/2021 11:34 AM KEYPUNCHER Inhaled Oxygen Concentration - - Weight 89 kg (196 lb 4.8 oz) 09/06/2021 11:34 AM KEYPUNCHER Height 170.2 cm (5' 7 ) 09/06/2021 11:34 AM KEYPUNCHER Body Mass Index 30.74 09/06/2021 11:34 AM KEYPUNCHER documented in this encounter Progress Notes * Srinivasa Lee MD - 09/06/2021 11:15 AM CST Images from the original note were not included. Patient: Arely Ernandez Age: 60 y.o. : 1960 [facility] Encounter Date: 09/06/2021 Care Team: Current [...] 4 TIMES DAILY ??? ergocalciferol (VITAMIN D) 84889 UNIT Capsule TAKE 1 CAPSULE BY MOUTH [...] Component Date Value Ref Range Status ??? [id number] 03/08/2021 7.26* 0.97 - 1.84 mg/L Final [...] 2.4* 2.9 - 4.4 G/DL Final ??? [id number] 03/08/2021 0.3 0.0 - 0.4 G/DL Final ??? [id number] 03/08/2021 0.8 0.4 - 1.0 G/DL Final [...] SCAN WILL FOLLOW VIA COMPUTER, MAIL, OR OUTPATIENT THERAPIST DELIVERY. ??? PDF 03/08/2021 . Final ??? [...] 760 - 4,000 cells/uL Final ??? Absolute [place] Count 03/08/2021 234 160 - 1,200 cells/uL [...] Final ??? RBC Morphology 03/08/2021 Normal Final UNCHER UNCHER documented in this encounter Plan of Treatment Upcoming Encounters Date Type Department Care Team (Late st Contact Info) Description 10/18/2024 1:30 PM KEYPUNCHER Office Visit [facility] [address] [address] Srinivasa Lee MD [address] [place] [address] [place] [address] documented as of this encounter Results * VITAMIN B12 (09/06/2021 12:01 PM KEYPUNCHER) Vitamin B12 348 180 - 914 pg/mL CANCER SUPERVISING EDITOR NEWS REEL [facility] Blood 09/06/2021 12:0 1 PM KEYPUNCHER Narrative CANCER SUPERVISING EDITOR [employer] REEL - 09/07/2021 2:53 PM KEYPUNCHER Release to patient->Immediate us Srinivasa Lee MD CHEMISTRY ORDERABLES Final R esult Performing Organization Address City/State/[facility] Co de Phone Number CANCER SUPERVISING EDITOR NEWS REEL [facility] [address] [place] [address], [place] [phone] * (ABNORMAL) IRON W/ IRON BINDING CAPACITY [place] (09/06/2021 12:01 PM KEYPUNCHER) IRON 54 50 - 212 ug/dL [facility] UIBC 196 155 - 355 ug/dL [facility] TIBC 250(L) 261 - 478 ug/dl [facility] % Saturation 22 20 - 50 % [facility] 09/06/2021 12:0 1 PM KEYPUNCHER Narrative [facility] - 09/06/2021 1:08 PM KEYPUNCHER Release to patient->Immediate us Srinivasa Lee MD LAB SEND OUTS Final Result Performing Organization Address [facility] Co de Phone Number [facility] Cancer Care [address] [address], [place] [phone] * RETICULOCYTE COUNT (RETIC) (09/06/2021 12:01 PM KEYPUNCHER) [facility] Reticulocyte count 1.23 0.50 - 1.70 % [facility] RET-He 33.70 28.20 - 36.60 pg [facility] Comment: RET-He is a direct assessment of incorporation of iron into erythrocyte hemoglobin. It provides an indirect measure of the iron available for new erythropoiesis over past 2-4 days. Blood 09/06/2021 12:0 [address] [facility] - 09/06/2021 12:20 PM KEYPUNCHER Release to patient->Immediate us Srinivasa Lee MD HEMATOLOGY ORDERABLES Final Result Performing Organization Address [facility] Co de Phone Number [facility] Cancer [facility] [address] [address], [place] [phone] * FERRITIN (09/06/2021 12:01 PM KEYPUNCHER) Ferritin 89 11 - 307 ng/mL CANCER SUPERVISING EDITOR [employer] REEL Blood 09/06/2021 12:0 1 PM KEYPUNCHER Narrative [facility] - 09/07/2021 2:53 PM KEYPUNCHER Release to patient->Immediate Srinivasa Lee MD CHEMISTRY ORDERABLES Final R esult Performing Organization Address [facility] Co de Phone Number CANCER SUPERVISING EDITOR [employer] [place] [address], [place] [phone] * FOLIC ACID (FOLATE) (09/06/2021 12:01 PM KEYPUNCHER) Folate 12.24 >=5.90 ng/mL [facility] Blood 09/06/2021 12:0 1 PM KEYPUNCHER Narrative [facility] - 09/07/2021 2:53 PM KEYPUNCHER Release to patient->Immediate Srinivasa Lee MD CHEMISTRY ORDERABLES Final R esult Performing Organization Address [facility] de Phone Number [facility] [place] [place] [address], [place] [phone] * (ABNORMAL) COMPLETE BLOOD COUNT (CBC) WITH DIFF (09/06/2021 12:01 PM KEYPUNCHER) WBC 10.3(H) 4.0 - 10.0 10*3/uL [facility] HGB 9.7(L) 11.2 - 15.7 g/dL [facility] HCT 28.9(L) 34.1 - 44.9 % [facility] PLT 183 163 - 369 10*3/uL [facility] MPV 10.7 9.4 - 12.4 fL [facility] RBC 3.33(L) 3.93 - 5.22 10*6/uL [facility] MCV 87 79 - 95 fL [facility] MCH 29.1 25.6 - 32.2 pg [facility] MCHC 33.6 32.2 - 36.5 g/dL [facility] RDW 12.5 11.6 - 14.4 % [facility] Absolute Neutrophil Count 6,089 cells/uL [facility] Absolute Seg Count 6,089 1,440 - 6,600 cells/uL [facility] Absolute Lymph Count 2,270 760 - 4,000 cells/uL [facility] Absolute [place] Count 929 160 - 1,200 cells/uL [facility] Absolute Eos Count 929(H) 0 - 300 cells/uL [facility] Absolute Baso Count 103(H) 0 - 100 cells/uL [facility] Segmented Neutrophils 59 36 - 66 % [facility] Lymphocytes 22 19 - 40 % [facility] Monocytes 9 4 - 12 % [facility] Eosinophils 9(H) 0 - 3 % [facility] Basophils 1 0 - 1 % [facility] WBC Estimate High [facility] Platelet Estimate Normal [facility] RBC Morphology Normal [facility] Blood 09/06/2021 12:0 1 PM KEYPUNCHER Narrative [facility] - 09/06/2021 2:17 PM KEYPUNCHER Release to patient->Immediate Srinivasa Lee MD HEMATOLOGY ORDERABLES Final Result [facility] [address] [place] [address], documented in this encounter Visit Diagnoses Diagnosis Anemia of unknown etiology- Primary Anemia, unspecified Anemia of unknown etiology Anemia, unspecified documented in this encounter Additional Health Concerns Assessment Noted Time PHQ-9 Depression Total Score: 0 03/08/20 21 11:06 AM CDT documented as of this encounter Care Teams Biochemistry Specialist Relationship Specialty Start Date End Date Jonatan Worley [address] [place] [address] PCP - General Family Medicine 07/12/20 Srinivasa Lee MD [address] [place] [address] Consulting Physician Oncology 07/12/20 documented as of this encounter
--- OUTSIDE RECORDS SUMMARY | 2024-08-29 04:34 | XMS_ITS | Encounter Summary ---
Author Organization [facility] Address [address] [place] [address] Phone Care Team Providers Care Tour Sales Representative Name Role Phone Jonatan Worley Primary Care Provider Srinivasa Lee MD Unavailable [phone] Reason for Visit * Reason Comments Follow-up Encounter Details Date Type Department Care Team (Latest Contact Info) Description 03/08/2021 11:15 AM CDT Office Visit [facility] [address] [address] Srinivasa Lee MD 10[address] [facility] [address] [address] Hypogammaglobulinemia (HCC) (Primary Dx); Anemia [...] on file Legal Sex Female 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 ergocalciferol (VITAMIN D) 96492 UNIT Capsule TAKE 1 CAPSULE BY MOUTH [...] 760 - 4,000 cells/uL Final ??? Absolute [place] Count 07/28/2020 245 160 - 1,200 cells/uL [...] st Contact Info) Description 10/18/2024 1:30 PM CONCRETE PIPE MAKING MACHINE OPERATOR Office Visit [facility] [address] [address] Srinivasa Lee MD [address] [place] [address] [place] [address] documented as of this encounter Results * (ABNORMAL) BETA 2 MICROGLOBULIN (03/08/2021 11:21 AM CDT) [id number] 7.26(H) 0.97 - 1.84 mg/L [facility] Blood 03/08/2021 11:2 1 AM CDT Narrative [facility] - 03/09/2021 2:51 PM CDT Release to patient->Immediate us Srinivasa Lee MD CHEMISTRY ORDERABLES Final R esult CANCER SUPERVISOR COMPONENT ASSEMBLER [facility] [place] [address], [place] [phone] * (ABNORMAL) FREE KAPPA & LAMBDA LIGHT CHAINS SERUM (03/08/2021 11:21 AM CDT) FREE KAPPA LT CHAINS,S 75.2(H) 3.3 - 19.4 MG/L [facility] FREE LAMBDA LT CHAINS,S 50.0(H) 5.7 - 26.3 MG/L [facility] FREE KAPPA/FREE LAMBDA RATIO LT CHAINS 1.50 0.26 - 1.65 [facility] Blood 03/08/2021 11:2 1 AM CDT Narrative [facility] - 03/09/2021 8:13 PM CDT TESTING PERFORMED AT: [] [facility] [address], [address], PHONE: [phone], MUSIC ORCHESTRATOR: PEGGY MARCUS, PHD Release to patient->Immediate Srinivasa Lee MD CHEMISTRY ORDERABLES Final R esult Performing Organization Address City/[facility]/ZIP Co de Phone Number [facility] * IMMUNOFIXATION, SERUM [place] (03/08/2021 11:21 AM CDT) IMMUNOFIXATION RESULT, SERUM COMMENT [facility] Comment:NO MONOCLONALITY DET ECTED. 03/08/2021 11:2 1 AM CDT Narrative [facility] - 03/09/2021 3:10 PM CDT TESTING PERFORMED AT: [] [facility] [place], [address] [place] [address], [place], [address], PHONE: [phone], MUSIC ORCHESTRATOR: PEGGY MARCUS, PHD Release to patient->Immediate Srinivasa Lee MD LAB SEND OUTS Final Result Performing Organization Address City/[facility]/ZIP Co de Phone Number [facility] * (ABNORMAL) ELECTROPHORESIS W/ TOTAL PROTEIN SERUM (03/08/2021 11:21 AM CDT) PROTEIN, TOTAL, SERUM 5.0(L) 6.0 - 8.5 G/DL [facility] ALBUMIN 2.4(L) 2.9 - 4.4 G/DL [facility] EDDRC-7-[id number] 0.3 0.0 - 0.4 G/DL [facility] HACNI-8-GFFMSYYI 0.8 0.4 - 1.0 G/DL [facility] BETA GLOBULIN 0.9 0.7 - 1.3 G/DL [facility] GAMMA GLOBULIN 0.6 0.4 - 1.8 G/DL [facility] M-SPIKE NOT OBSERVED NOT OBSERVED G/DL [facility] GLOBULIN, TOTAL 2.6 2.2 - 3.9 G/DL [facility] A/G RATIO 0.9 0.7 - 1.7 [facility] PLEASE NOTE: COMMENT [facility] Comment: PROTEIN ELECTROPHORESIS SCAN WILL FOLLOW VIA COMPUTER, MAIL, OR PACKING MACHINE FEEDER DELIVERY. PDF . [facility] Blood 03/08/2021 11:2 1 AM CDT Narrative [facility] - 03/09/2021 3:10 PM CDT TESTING PERFORMED AT: [] [address], [address], PHONE: [phone], MUSIC ORCHESTRATOR: PEGGY MARCUS, PHD Release to patient->Immediate us Srinivasa Lee MD CHEMISTRY ORDERABLES Final R esult [facility] * (ABNORMAL) IMMUNOGLOBULIN IGA, IGG & IGM QUANT (03/08/2021 11:21 AM CDT) IGG 484(L) 635 - 1,741 mg/dL [facility] IGA 181 66 - 433 mg/dL [facility] SU[facility] IGM 54 45 - 281 mg/dL [facility]PER[facility]OR [facility] Blood 03/08/2021 11:2 1 AM CDT Narrative CANCER SUPERVISOR COMPONENT ASSEMBLER [facility] - 03/09/2021 2:51 PM CDT Release to patient->Immediate Srinivasa Lee MD CHEMISTRY ORDERABLES Final R esult CANCER SUPERVISOR COMPONENT ASSEMBLER [facility] [address] [place] [address], [place] [phone] * VITAMIN B12 (03/08/2021 11:21 AM CDT) Vitamin B12 384 180 - 914 pg/mL CANCER SUPERVISOR COMPONENT ASSEMBLER [facility] Blood 03/08/2021 11:2 1 AM CDT [facility] - 03/09/2021 3:34 PM CDT Release to patient->Immediate Srinivasa Lee MD CHEMISTRY ORDERABLES Final R esult Performing Organization Address [facility] Co de Phone Number CANCER SUPERVISOR COMPONENT ASSEMBLER [facility] [address] [place] [address], [place] [phone] * (ABNORMAL) IRON W/ IRON BINDING CAPACITY [place] (03/08/2021 11:21 AM CDT) IRON 70 50 - 212 ug/dL [facility] UIBC 164 155 - 355 ug/dL [facility] TIBC 234(L) 261 - 478 ug/dl [facility] % Saturation 30 20 - 50 % [facility] 03/08/2021 11:2 1 AM CDT [facility] - 03/08/2021 12:55 PM CDT Release to patient->Immediate us Srinivasa Lee MD LAB SEND OUTS Final Result Performing Organization Address City/[facility]/ZIP Co de Phone Number [facility] [place] [address], [place] [phone] * RETICULOCYTE COUNT (RETIC) (03/08/2021 11:21 AM [...] days. Blood 03/08/2021 11:2 1 AM CDT [facility] - 03/08/2021 11:35 AM CDT Release to patient->Immediate us Srinivasa Lee MD HEMATOLOGY ORDERABLES Final Result [facility] [place] [place] [address], [place] [phone] * FERRITIN (03/08/2021 11:21 AM CDT) Ferritin 109 11 - 307 ng/mL [facility] Blood 03/08/2021 11:2 1 AM CDT Narrative [facility] - 03/09/2021 3:34 PM CDT Release to patient->Immediate us Srinivasa Lee MD CHEMISTRY ORDERABLES Final R esult CANCER SUPERVISOR COMPONENT ASSEMBLER [facility] [address] [place] [address], [place] [phone] * FOLIC ACID (FOLATE) (03/08/2021 11:21 AM CDT) Folate 14.72 >=5.90 ng/mL [facility] Blood 03/08/2021 11:2 1 AM CDT Narrative [facility] - 03/09/2021 3:34 PM CDT IS THE PATIENT REQUIRED TO BE FASTING FOR 12 HOURS?->No Release to patient->Immediate us Srinivasa Lee MD CHEMISTRY ORDERABLES Final R esult CANCER SUPERVISOR COMPONENT ASSEMBLER [facility] [address] [place] [address], [place] [phone] * LACTATE DEHYDROGENASE (LD) (03/08/2021 11:21 AM CDT) LDH 176 140 - 271 U/L [facility] Blood 03/08/2021 11:2 1 AM CDT Narrative [facility] - 03/08/2021 12:55 PM CDT Release to patient->Immediate Srinivasa Lee MD CHEMISTRY ORDERABLES Final R esult [facility] [address] [place] [address], [place] [phone] * (ABNORMAL) CMP (COMPREHENSIVE METABOLIC PANEL) (03/08/2021 11:21 AM CDT) Glucose 250(H) 70 - 105 mg/dL [facility] Blood Urea Nitrogen 37(H) 7 - 25 mg/dL [facility] Creatinine 1.6(H) 0.6 - 1.2 mg/dL [facility] Sodium 141 136 - 145 mEq/L [facility] Potassium 5.4(H) 3.5 - 5.1 mEq/L [facility] Chloride 112(H) 98 - 107 mEq/L [facility] Bicarbonate 24 21 - 31 mEq/L [facility] Total Bilirubin 0.3 0.3 - 1.0 mg/dL [facility] Alk. Phosphatase 66 34 - 104 U/L [facility] Aspartate Aminotransferase 17 13 - 39 U/L [facility] Alanine Aminotransferase 14 7 - 52 U/L [facility] Total Protein 4.9(L) 6.4 - 8.9 g/dL [facility] Albumin 2.9(L) 3.5 - 5.7 g/dL [facility] [...] (Non ) 33.0(L) >60.0 ml/min [facility] EGFR () 39.9(L) >60.0 ml/min [facility] Blood 03/08/2021 11:2 1 AM CDT Narrative [facility] - 03/08/2021 12:56 PM CDT IS THE PATIENT REQUIRED TO BE FASTING FOR 8 HOURS?->No Release to patient->Immediate us Srinivasa Lee MD CHEMISTRY ORDERABLES Final R esult [facility] [address] [place] [address], * (ABNORMAL) COMPLETE BLOOD COUNT (CBC) WITH [...] SPECIALISTS [facility] Absolute Thayer Count 234 160 - 1,200 cells/uL [facility] Absolute Eos Count 312(H) 0 - 300 cells/uL [facility] Segmented Neutrophils 73(H) 36 - 66 % [facility] Lymphocytes 20 19 - 40 % [facility] [place] Monocytes 3(L) 4 - 12 % [facility] Eosinophils 4(H) 0 - 3 % [facility] [place] WBC Estimate Normal [facility] [address] [place], [place] [address] [phone] documented in this encounter Visit Diagnoses Diagnosis Hypogammaglobulinemia (HCC)- Primary Hypogammaglobulinaemia, unspecified Anemia of unknown etiology Anemia, unspecified Hypogammaglobulinemia (HCC) Hypogammaglobulinaemia, unspecified Anemia of unknown etiology Anemia, unspecified documented in this encounter Additional Health Concerns Assessment Noted Time PHQ-9 Depression Total Score: 0 03/08/20 21 11:06 AM CDT documented as of this encounter Care Teams Tour Sales Representative Relationship Specialty Start Date End Date Jonatan Worley [address] [place] [address] PCP - General Family Medicine 07/12/20 Srinivasa Lee MD [address] [place] [address] Consulting Physician Oncology 07/12/20 documented as of this encounter
--- OUTSIDE RECORDS SUMMARY | 2024-08-29 04:34 | XMS_ITS | Encounter Summary ---
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 No / Unsure 07/28/2020 10:59 AM SHEET METAL DUCT INSTALLER APPRENTICE documented as of this encounter Plan of Treatment Upcoming Encounters Date Type Department Care Team (Late st Contact Info) Description 10/18/2024 1:30 PM SHEET METAL DUCT INSTALLER APPRENTICE Office Visit [facility] [address] [address] Srinivasa Lee MD [address] [place] [address] [place] [address] documented as of this encounter Visit Diagnoses Not on filedocumented in this encounter Additional Health Concerns Assessment Noted Time PHQ-9 Depression Total Score: 0 07/28/20 20 11:51 AM SHEET METAL DUCT INSTALLER APPRENTICE documented as of this encounter Care Teams Matching Machine Operator Relationship Specialty Start Date End Date Jonatan Worley [address] [place] [address] PCP - General Family Medicine 07/12/20 Srinivasa Lee MD [address] [place] [address] Consulting Physician Oncology 07/12/20 documented as of this encounter
--- OUTSIDE RECORDS SUMMARY | 2024-08-29 04:34 | XMS_ITS | Encounter Summary ---
Author Organization [employer] Care Team Providers Care Dredge [employer]ge [facility] Hand Name Role Phone Jonatan Worley Primary Care Provider [phone] Srinivasa Lee MD Unavailable [phone] Encounter Details Date Type Department Care Team [...] on file Legal Sex Female 11:51 AM CLIENT RELATIONS REPRESENTATIVE Gender Identity Not on file Sexual Orientation Not on file COVID-19 Exposure Response Date Recorded In the last month, have you been in contact with someone who was confirmed or suspected to have Coronavirus / COVID-19? No / Unsure 09/08/2020 11:10 AM CLIENT RELATIONS REPRESENTATIVE documented as of this encounter Plan of Treatment Upcoming Encounters Date Type Department Care Team (Late st Contact Info) Description 10/18/2024 1:30 PM CLIENT RELATIONS REPRESENTATIVE Office Visit [facility] [address] [phone] Srinivasa Lee MD [address] [address] documented as of this encounter Visit Diagnoses Not on filedocumented in this encounter Additional Health Concerns Assessment Noted Time PHQ-9 Depression Total Score: 0 09/08/19 21 11:26 AM CLIENT RELATIONS REPRESENTATIVE documented as of this encounter Care Teams D[place] Hand Relationship Specialty Start Date End Date Jonatan Worley [address] [place] [address] PCP - General Family Medicine 07/12/20 Srinivasa Lee MD [address] [place] [id number] Consulting Physician Oncology 07/12/20 documented as of this encounter
--- OUTSIDE RECORDS SUMMARY | 2024-08-29 04:34 | XMS_ITS | Encounter Summary ---
Author Organization [email or web address] Care Team Providers Care Doll Repairer Name Role Phone Jonatan Worley Primary Care Provider [phone] Srinivasa Lee MD Unavailable [phone] Encounter Details Date Type Department Care Team [...] on file Legal Sex Female 11:51 AM RETURNS CLERK Gender Identity Not on file Sexual Orientation [...] st Contact Info) Description 10/18/2024 1:30 PM RETURNS CLERK Office Visit [facility] [address] [phone] Srinivasa Lee MD [facility] [place] [address] [id number] documented as of this encounter Visit Diagnoses Not on filedocumented in this encounter Additional Health Concerns Assessment Noted Time PHQ-9 Depression Total Score: 0 03/08/20 21 11:06 AM CDT documented as of this encounter Care Teams Doll Repairer Relationship Specialty Start Date End Date Jonatan Worley [address] [facility] [place] [address] PCP - General Family Medicine 07/12/20 Srinivasa Lee MD [address] [place] [address] Consulting Physician Oncology 07/12/20 documented as of this encounter
--- OUTSIDE RECORDS SUMMARY | 2024-08-29 04:34 | XMS_ITS | Continuity of Care Document ---
Author Organization [facility] Address [address] [place] [address] [place] [address] Phone Care Team Providers Care Restaurant Inspector Name Role Phone Jonatan Worley MD Unavailable Unavailable Allergies, Adverse Reactions, Alerts Substance Reaction Status Criticality Penicillins Active No Information Medications Medication Instructions Dosage Effective Dates (start - stop) Status Comments glimepiride 4 mg tablet take 1 tablet by oral route every day 4 MG - Active take in am with breakfast sodium bicarbonate 650 mg tablet take one orally TID - Active Crestor 5 mg tablet take 1 tablet by oral route every day 5 MG - Active Norvasc 5 mg tablet take 1 tablet by oral route every day 5 MG - Active Toprol XL 100 mg tablet,extended release take 1 tablet by oral route every day 100 MG - Active hydralazine 50 mg tablet take [...] Providers Copied on Encounter OFFICE/OUTPA TIENT VISIT, [facility], [address] [place], [address], tel:[phone] [facility] DM (chief complaint) lung nodule1 (chief complaint) weight loss1 (chief complaint) Solitary lung noduleType 2 diabetes mellitus with diabetic nephropathyAbnormal weight lossEdema 4 Meir Boykin [address] [place], [address]. tel:[phone] OFFICE/OUTPA TIENT VISIT, EST [facility], [address] [place], [address], tel:[phone] [facility] pneumonia1 (chief complaint) Solitary lung nodulePneumonia 4 Worley Jonatan. [address], [place], [address]. tel:[phone] OFFICE/OUTPA TIENT VISIT, EST [facility], [address], [place], [address], [place] tel:[phone] [facility] pneumonia1 (chief complaint) HTN (chief complaint) PneumoniaStage 4 chronic renal diseaseEssential (primary) hypertensionAnemia 4 Meir Cheung. [address], [place], [address]. tel:[phone] OFFICE/OUTPA TIENT VISIT, EST [facility], [address], [place], [address], tel:[phone] [facility] HTN (chief complaint) anemia1 (chief complaint) HLP (chief complaint) DM (chief complaint) Iron deficiency anemiaEssential (primary) hypertensionMixed hyperlipidemiaType 2 diabetes mellitus with diabetic nephropathy 4 Meir Cheung. [address], [place], [address]. tel:[phone] OFFICE/OUTPA TIENT VISIT, EST [facility], [address], [place], [address], tel:[phone] [facility] DM (chief complaint) anemia1 (chief complaint) renal (chief complaint) b12 (chief complaint) HLP (chief complaint) HTN (chief complaint) Essential (primary) hypertensionIron deficiency anemiaStage 4 chronic renal diseaseMixed hyperlipidemiaType 2 diabetes mellitus with diabetic nephropathy 4 Meir Cheung. [address], [place], [address]. tel:[phone] PREV VISIT, EST, AGE 40-64 [facility], [address], [place], [address], [place] tel:[phone] [facility] physical (chief complaint) Encounter for general adult medical exam w abnormal findingsStage 4 chronic renal diseaseEssential (primary) hypertensionMixed hyperlipidemiaIron deficiency anemiaType 2 diabetes mellitus with diabetic nephropathy 3 Meir Cheung. [address], [place], [address]. tel:[phone] OFFICE/OUTPA TIENT VISIT, EST [facility], [address] [place], [address], tel:[phone] [facility] HTN (chief complaint) anemia1 (chief complaint) DM (chief complaint) HLP (chief complaint) Essential (primary) hypertensionStage 4 chronic renal diseaseMixed hyperlipidemiaType 2 diabetes mellitus with diabetic nephropathyVitamin D deficiency, unspecifiedIron deficiency anemia 3 Meir Cheung. [address], [place], [address]. tel:[phone] OFFICE/OUTPA TIENT VISIT, [facility], [address], [place], [address], [place] tel:[phone] [facility] HTN (chief complaint) weight gain1 (chief complaint) edema1 (chief complaint) Essential (primary) hypertensionEdemaAb normal weight gainStage 4 chronic renal disease 3 Meir Cheung. [address], [place], [address]. tel:[phone] OFFICE/OUTPA TIENT VISIT, EST [facility], [address], [place], [address], [place] tel:[phone] [facility] DM (chief complaint) anemia1 (chief complaint) renal (chief complaint) HTN (chief complaint) AnemiaStage III chronic renal diseaseEssential (primary) hypertensionMixed hyperlipidemiaType 2 diabetes mellitus with diabetic nephropathy 3 Meir Cheung. [address], [place], [address]. tel:[phone] PREV VISIT, EST, AGE 40-64 [facility], [address] [place], [address], [place] tel:[phone] [facility] PHysical (chief complaint) Essential (primary) hypertensionMixed hyperlipidemiaEdema Type 2 diabetes mellitus with diabetic nephropathyVitamin D deficiency, unspecifiedEncounte r for general adult medical exam w abnormal findings 2 Meir Cheung. [address], [place], [address]. tel:[phone] OFFICE/OUTPA TIENT VISIT, [facility], [address] [place], [address], tel:[phone] [facility] HTN (chief complaint) renal (chief complaint) DM (chief complaint) HLP (chief complaint) Essential (primary) hypertensionStage III chronic kidney diseaseMixed hyperlipidemiaType 2 diabetes mellitus with diabetic nephropathy 2 Meir Cheung. [address], [place], [address]. tel:[phone] OFFICE/OUTPA TIENT VISIT, [facility], [address] [place], [address], [place] tel:[phone] [facility] HTN (chief complaint) DM (chief complaint) edema1 (chief complaint) Stage III chronic renal diseaseEssential (primary) hypertensionType 2 diabetes mellitus with diabetic nephropathyEdema 2 Meir Cheung. [address], [place], [address]. tel:[phone] OFFICE/OUTPA TIENT VISIT, [facility], [address] [place], [address], [place] tel:[phone] [facility] DM (chief complaint) renal (chief complaint) HTN (chief complaint) Type 2 diabetes mellitus with diabetic nephropathyEssentia l (primary) hypertensionAbnorma lity of albuminOther disorders of phosphorus metabolismEdema 2 Meir Cheung. [address], [place], [address]. tel:[phone] OFFICE/OUTPA TIENT VISIT, [facility], [address] [place], [address], [place] tel:[phone] [facility] HTN (chief complaint) Essential (primary) hypertensionStage III chronic kidney diseaseEdemaGeneral ized Anxiety Disorder 2 Meir Jonatan. [address], [place], [address]. tel:[phone] OFFICE/OUTPA TIENT VISIT, [facility], [address], [place], [address], tel:[phone] [facility] HTN (chief complaint) DM (chief complaint) renal disease1 (chief complaint) edema1 (chief complaint) EdemaEssential (primary) hypertensionStage III chronic kidney diseaseType 2 diabetes mellitus with diabetic nephropathy Apr-0 2 Meir Cheung. [address], [place], [address]. tel:[phone] OFFICE/OUTPA TIENT VISIT, [facility], [address] [place], [address], tel:[phone] [facility] HTN (chief complaint) renal (chief complaint) DM (chief complaint) Essential (primary) hypertensionType 2 diabetes mellitus with diabetic nephropathyStage III chronic kidney diseaseEdema Nov- 1 Meir Cheung. [address], [place], [address]. tel:[phone] OFFICE/OUTPA TIENT VISIT, [facility], [address] [place], [address], tel:[phone] [facility] edema1 (chief complaint) anemia1 (chief complaint) low renal1 (chief complaint) HLP (chief complaint) DM (chief complaint) AnemiaEdemaOther disorders of phosphorus metabolismType 2 diabetes mellitus with diabetic nephropathyAbnormal ity of albuminHyperkalemia HyperlipidemiaEssen tial (primary) hypertension May- 1 Meir Boykin [address], [place], [address]. tel:[phone] PREV VISIT, EST, AGE 40-64 [facility], [address] [place], [address], tel:[phone] [facility] HTN (chief complaint) vision change1 (chief complaint) DM (chief complaint) edema1 (chief complaint) Essential (primary) hypertensionEdemaTy pe 2 diabetes mellitus with diabetic nephropathyOther disorders of phosphorus metabolismAnemiaVis ual disturbanceShortnes s of breathEncounter for general adult medical exam w abnormal findingsEncounter for general adult medical examination without abnormal findings Apr-0 1 Meir Cheung. [address], [place], [address]. tel:[phone] OFFICE/OUTPA TIENT VISIT, [facility], [address] [place], [address], tel:[phone] [facility] HTN (chief complaint) renal (chief complaint) DM (chief complaint) Essential (primary) hypertensionType 2 diabetes mellitus with diabetic nephropathyAbnormal ity of globulinOth disrd of bone density and structure, other site Oct- 1 Meir Cheung. [address], [place], [address]. tel:[phone] OFFICE/OUTPA TIENT VISIT, [facility], [address] [place], [facility], tel:[phone] [facility] DM (chief complaint) Essential (primary) hypertensionType 2 diabetes mellitus with diabetic nephropathyOther disorders of phosphorus metabolismAbnormali ty of globulin 1 Meir Cheung. [address], [place], [address]. tel:[phone] Referring Provider: Bryn Youssef [address] [place], [facility]. tel:[phone] OFFICE/OUTPA TIENT VISIT, [facility], [address] [place], [address], [place] tel:[phone] [facility] anemia1 (chief complaint) low renal1 (chief complaint) DM (chief complaint) HTN (chief complaint) Type 2 diabetes mellitus with diabetic nephropathyHyperlip idemiaAnemiaAbnorma lity of globulinEssential (primary) hypertensionOther disorders of phosphorus metabolism 0 Meir Cheung. [address], [place], [facility]. tel:[phone] Referring Provider: [address], [place], [facility]. tel:[phone] OFFICE/OUTPA TIENT VISIT, [facility], [address] [place], [address], [place] tel:[phone] [facility] DM (chief complaint) HLP (chief complaint) HTN (chief complaint) Essential (primary) hypertensionHyperli pidemiaType 2 diabetes mellitus with diabetic nephropathy 0 Meir Cheung. [address], [place], [address]. [phone] Referring Provider: Jonatan Worley, [address], [place], [address]. tel:[phone] OFFICE/OUTPA TIENT VISIT, [facility], [address], [place], [address], tel:[phone] [facility] DM (chief complaint) HTN (chief complaint) HLP (chief complaint) vertigo1 (chief complaint) Essential (primary) hypertensionHyperli pidemiaType 2 diabetes mellitus with diabetic nephropathyAnemia 0 Meir Cheung. [address], [place], [address]. tel:[phone] Referring Provider: Bryn [address], [place], [address]. tel:[phone] OFFICE/OUTPA TIENT VISIT, [facility], [address], [place], [address], [place] tel:[phone] [facility] DM (chief complaint) anemia1 (chief complaint) protein (chief complaint) low D (chief complaint) HTN (chief complaint) HLP (chief complaint) Essential (primary) hypertensionHyperli pidemiaType 2 diabetes mellitus with diabetic nephropathyOth disorders of plasma-protein metabolism, NECAnemiaVitamin D deficiency, unspecified 0 Meir Cheung. [address], [place], [address]. [phone] Referring Provider: [address], [place], [address]. tel:[phone] PREV VISIT, EST, AGE 40-64 [facility], [address], [place], [address], [place] tel:[phone] [facility] Physical (chief complaint) Encntr for general adult medical exam w/o abnormal findings 0 Meir Cheung. [address], [place], [address]. tel:[phone] Referring Provider: [address], [place], [address]. tel:[phone] OFFICE/OUTPA TIENT VISIT, [facility], [facility] [address], [place], [address], tel:[phone] [facility] vertigo1 (chief complaint) HTN (chief complaint) DizzinessType 2 diabetes mellitus w/ diabetic neuropathy 9 Meir Cheung. [address], [place], [facility]. tel:[phone] Referring Provider: Bryn Yousse[address], [place], [address]. tel:[phone] OFFICE/OUTPA TIENT VISIT, [facility], [address], [place], [address], [place] tel:[phone] [facility] vertigo1 (chief complaint) HTN (chief complaint) hematuria1 (chief complaint) DizzinessEssential (primary) hypertensionHematur iaType 2 diabetes mellitus w/ diabetic neuropathy 9 Meir Cheung. [address], [place], [address]. tel:[phone] Referring Provider: Bryn [address], [place], [address]. tel:[phone] OFFICE/OUTPA TIENT VISIT, [facility], [address], [place], [address], [place] tel:[phone] [facility] vertigo1 (chief complaint) DM (chief complaint) Essential (primary) hypertensionDizzine ssType 2 diabetes mellitus w/ diabetic neuropathy 9 Meir Cheung. [address], [place], [address]. tel:[phone] Referring Provider: Bryn Yousse[address], [place], [address]. tel:[phone] OFFICE/OUTPA TIENT VISIT, [facility], [address], [place], [address], tel:[phone] [facility] DM (chief complaint) Type 2 diabetes mellitus without complicationsEssent ial (primary) hypertensionHyperli pidemiaHyperkalemia 9 Meir Cheung. [address], [place], [address]. tel:[phone] Referring Provider: Jonatan Worley, [address], [place], [address]. tel:[phone] Family History Family Member Type Diagnosis Age At Onset Father Problem (finding) Hypertension Brother Problem (finding) Diabetes mellitus type 2 Father Problem (finding) Father Problem (finding) Coronary artery disease Father Problem (finding) Diabetes mellitus type 2 Mother Problem (finding) of heart related issue (Cause Of ) 82 Payers Payer name Insurance type Covered republican ID Authoriza tion(s) No Information Social History [...] been having hypoglycemic episode at night and mechanism assembler after taking 2 mg amaryl at night. [...] ordered Referral Referred To: Raji Shook [address] [facility]
[address] [place], [place], [id number] Ordered: Referrals: Allopathic & Osteopathic Physicians : Internal Medicine : Nephrology. Raji Shook. Evaluate and treat ordered Referral Ordered: [facility] ordered Referral Ordered: Hematology (related to Abnormality of globulin) ordered Referral Ordered: Referrals: Hematology. Evaluate and treat ordered History Of Present Illness Encounter Date Complaint History Of Prese nt Illness DM Pt has DM. Pt ta kes farxiga and amaryl and she has been having hypoglycemic episode at night and mechanism assembler after taking 2 mg amaryl at night. Her glucose sometimes drop to 70s and she feels slightly sick with low BG. Pt has not been taking night time amaryl and she has not had any low glucose episode at night lung nodule1 Pt has lung nodu le Pt denies any hemoptysis, sob or cough. Pt has not done lung CT yet .Her chest Ct was approved by insurance already. Pt received an approval letter. she has not scheduled the chest CT yet. weight loss1 Pt has been unin tentionally losing weight. Pt has history of LE edema. Pt denies any appetite loss, nausea, vomiting, etc. pneumonia1 Pt is s/p recent pneumonia and [...] anemia. Pt denies any blood loss . HLP Pt has HLP Pt aiden Garcia. Pt denies any myalgia DM Pt has DM Pt is on amaryl, farxiga and her glucose at home is around 100 Pt sees ophthalmology for retinopathy Pt is off ASA HTN Pt has end stage renal disease with HTN Pt is on toprol, norvasc, hydralazine. Her bp is ok Pt sees nephrology. Pt has normal UO anemia1 Pt has iron defi ciency anemia Pt denies any bleeding Pt is on oral iron now by nephrology DM Pt has DM Pt kevin es [...] hematology. Mar-12-2024 HLP Pt has HLP. Pt t akes crestor and her lipid profile is ok HTN [...] denies any myalgia Pt needs crestor refilled HTN Pt has HTN Pt ta kes norvasc, toprol and her nephrology increase hydralazine to 25 mg TID and also changed vitamin D weekly to 2000 u daily. SHe just had lab done by nephrology last week anemia1 Pt has iron defi ciency anemia [...] .Pt sees nephrology. Pt has normal UO HTN Pt has HTN pt ta kes hydralazine, norvasc and toprol and her bp is improving Pt denies any chest pain renal Pt has stage III renal disease and she saw nephrology [facility] last month and was told to continue current meds. Her bp is better. Pt has ishan with Dr. shook later this month. pt does have leg swelling Pt denies any sob Pt has normal UO DM Pt has DM. Pt ta kes amaryl. Her glucose is around 120s. HLP Pt takes crestor Pt denies any myalgia HTN Pt has HTN. pt t akes [...] slightly worse. Pt denies any polyuria, polydipsia. renal Pt has chronic s tage III renal disease. Pt has normal UO. her renal function is clear. Pt has high phos and low albumin HTN Pt has HTN Pt ta kes norvasc and toprol and her bp is consistently above 150 at home. Pt denies any chest pain or headache HTN Pt has HTN Pt ta kes [...] not sure why linda transferred her to [facility]. She was evaluated by psychiatrist at [facility] and she was deemed feeling frustrated only without any psychiatric diagnosis and sent home with metoprolol 25 mg BID only without any psych meds Pt states that she was just frustrated about being admitted to [facility] which made her angry Pt denies any [...] to renal function. Pt denies any sob. renal Pt has chronic r enal failure Pt is off spironolactone ,metformin and irbesartan/hctz .pt saw nephrology last month and had more lab and she supposes to follow up next week with nephrology Pt has normal uO DM Pt has DM. Pt ta kes amaryl only Pt is off metformin Pt states that her glucose at home is around 110s. HTN Pt has HTN Pt ta kes [...] mildly high TG pt denies any myalgia edema1 Pt states that h er leg edema greatly improved with hctz and spironolactone. Pt also states that her sob improved as well. Pt denies any chest pain anemia1 Pt has normocyti c anemia with normal iron. Pt denies any GI bleeding. Pt denies any fatigue or dizziness. HTN Pt has HTn. Pt t akes [...] been getting worse lately and she sees neighborhood planner and she notices worsening vision during last several months. Pt states that she almost barely able to see from right eye for 2-3 years and her left eye also became blurred since two weeks ago. Pt just saw neighborhood planner last week and was told that she needs cataract surgery soon and she was told that she has retinopathy as well. DM Pt has DM. Pt ta kes metformin and amaryl and her glucose is around 140s .Pt denies any neuropathy. edema1 Pt c/o bilateral LE edema for 2-3 months. HTN Pt has HTN Pt ta kes irbesartan an norvasc and her bp is better . renal Pt has normal UO .renal ultrasound showed bilateral renal atrophy. Pt has not made ishan with nephrology yet DM pt takes metform in and amaryl. her glucose is ok at home Pt denies any polyuria polydipsia DM Pt has DM Pt kevin es metformin and amaryl .her glucose is around 100 at home. Pt has large amount of proteinuria. Pt has borderline low renal function. Pt has low albumin. Pt takes lisinopril. Her bp is around 150s. Pt denies any chest pain or sob. anemia1 Pt has stable an emia. Her iron and ferritin is ok. Pt denies any blood loss. Pt also has low globulin low total protein, low protein, high phos. low renal1 Pt has borderlin e low renal .Pt has normal UO. Pt has borderline high phos. DM Pt has DM Pt kevin es metformin and amaryl. her glucose is around 120s Her glucose and A1c are ok Pt denies any neuropathy HTN Pt takes lisinop ril and her [...] bp at home Pt takes lisinopril daily vertigo1 Pt states that s he is off meclizine and she no longer has vertigo. Pt denies any dizziness DM Pt has DM, Pt ta kes [...] myalgia .Pt has not done lab yet DM Pt has DM with n ephropathy. Pt has proteinuria ,Her DM is better .Pt denies any hypoglycemia. Pt denies any polyuria, polydipsia anemia1 Pt is anemic pt was not anemic back in [facility] of last year. Pt is postmeno for 2-3 years Pt denies any bleeding low D P thas low D protein Pt has low total protein and albumin. Pt denies any swelling HTN Pt has HTN. Pt t akes lisinopril and her BP is still high, Pt denies any chest pain or headache HLP Pt has high LDL, which is not at goal. Physical Pt needs annual physical, Pt has [...] adult Weight management Related to Diz ziness Special diet education Related t o Body mass index (BMI) 28.0-28.9, adult Increase physical activity Relat ed to Dizziness Weight management Related to Diz ziness Check blood sugar twice a day. R [...] Mental Status Date Cognitive Assessment Orientation - [place] ed to time, place, person, situation.
--- OUTSIDE RECORDS SUMMARY | 2024-08-29 04:34 | XMS_ITS | Encounter Summary ---
Author Organization [facility] Address [address] [place] [address] Phone Care Team Providers Care Child And Family Counselor Name Role Phone Jonatan Worley Primary Care Provider Srinivasa Lee MD Unavailable [phone] Reason for Visit * Reason Comments Follow-up Encounter Details Date Type Department Care Team (Late st Contact Info) Description 03/15/2022 9:30 AM CDT Office Visit [facility] [address] [address] Srinivasa Lee MD [address] [address] Anemia of unknown etiology (Primary [...] file Legal Sex Female 11:51 AM CUSTOMER SUCCESS DIRECTOR Gender Identity Not on file Sexual [...] y.o. : 1960 Encounter Dept: MED ONC [facility] Encounter Date: 03/15/2022 Care Team: [...] 4 TIMES DAILY ??? ergocalciferol (VITAMIN D) 61560 UNIT Capsule TAKE 1 CAPSULE BY MOUTH [...] Contact Info) Description 10/18/2024 1:30 PM CUSTOMER SUCCESS DIRECTOR Office Visit [facility] [address] [address] Srinivasa Lee MD [address] [place] [address] documented as of this encounter Results * FERRITIN (06/14/2022 9:38 AM CDT) Ferritin 67 11 - 307 ng/mL CAN[facility] AUTHORIZATION REPRESENTATIVE [facility] Blood 06/14/2022 9:38 AM CDT Narrative [facility] 06/14/2022 2:45 PM CDT Release to patient->Immediate Srinivasa Lee MD CHEMISTRY ORDERABLES Final R esult CANCER AUTHORIZATION REPRESENTATIVE [facility] [address] [place] [address], [place] [phone] * (ABNORMAL) IRON W/ IRON BINDING CAPACITY [place] (06/14/2022 9:38 AM CDT) IRON 62 50 - 212 ug/dL [facility] UIBC 187 155 - 355 ug/dL [facility] TIBC 249(L) 261 - 478 ug/dl [facility] % Saturation 25 20 - 50 % [facility] Blood 06/14/2022 9:38 AM CDT Narrative [facility] - 06/14/2022 11:05 AM CDT Release to patient->Immediate Srinivasa Lee MD LAB SEND OUTS Final Result [facility] [address] [place] [address], [place] [phone] documented in this encounter Visit Diagnoses Diagnosis Anemia of unknown etiology- Primary Anemia, unspecified Anemia of unknown etiology Anemia, unspecified documented in this encounter Additional Health Concerns Assessment Noted Time PHQ-9 Depression Total Score: 0 03/08/20 11:06 AM CDT documented as of this encounter Care Teams Child And Family Counselor Relationship Specialty Start Date End Date Jonatan Worley [address] [place] [address] PCP - General Family Medicine 07/12/20 Srinivasa Lee MD [address] [place] [phone] Consulting Physician Oncology 07/12/20 documented as of this encounter
--- OUTSIDE RECORDS SUMMARY | 2024-08-29 04:34 | XMS_ITS | Encounter Summary ---
Author Organization [employer] Care Team Providers Care Waste Chopper Name Role Phone Jonatan Worley Primary Care Provider [phone] Srinivasa Lee MD Unavailable [phone] Encounter Details Date Type Department Care Team [...] on file Legal Sex Female 11:51 AM GRAPHICS SPECIALIST Gender Identity Not on file Sexual Orientation [...] st Contact Info) Description 10/18/2024 1:30 PM GRAPHICS SPECIALIST Office Visit [facility] [address] [address] Srinivasa Lee MD [facility] [address] [address] documented as of this encounter Visit Diagnoses Not on filedocumented in this encounter Additional Health Concerns Assessment Noted Time PHQ-9 Depression Total Score: 0 03/08/20 21 11:06 AM CDT documented as of this encounter Care Teams Waste Chopper Relationship Specialty Start Date End Date Jonatan Worley [address] [place] [address] PCP - General Family Medicine 07/12/20 Srinivasa Lee MD [address] [place] [address] Consulting Physician Oncology 07/12/20 documented as of this encounter
--- OUTSIDE RECORDS SUMMARY | 2024-08-29 04:34 | XMS_ITS | Encounter Summary ---
Author Organization [facility] Address [address] [place] [address] Phone Care Team Providers Care Iron Worker Foreman Name Role Phone Jonatan Worley Primary Care Provider [phone] Srinivasa Lee MD Unavailable [phone] Encounter Details Date Type Department Care Team (Late Contact Info) Description 09/06/2021 12:05 PM SKEIN TIER Lab [facility] [address] [address] Lab, Cc [facility] Anemia of unknown etiology Social History [...] on file Legal Sex Female 11:51 AM SKEIN TIER Gender Identity Not on file Sexual Orientation Not on file COVID-19 Exposure Response Date Recorded In the last month, have you been in contact with someone who was confirmed or suspected to have Coronavirus / COVID-19? No / Unsure 09/06/2021 11:11 AM SKEIN TIER documented as of this encounter Plan of Treatment Upcoming Encounters Date Type Department Care Team (Late st Contact Info) Description 10/18/2024 1:30 PM SKEIN TIER Office Visit [facility] [place] [address] [place] [address] Srinivasa Lee MD [address] [place], [place] [address] documented as of this encounter Procedures Procedure Name Priority Date/Time Associated Diagnosis Comments IRON W/ IRON BINDING CAPACITY [place] Routine 09/06/2021 12:01 PM SKEIN TIER Anemia of unknown etiology VITAMIN B12 Routine 09/06/2021 12:01 PM SKEIN TIER Anemia of unknown etiology RETICULOCYTE COUNT (RETIC) Routine 09/06/2021 12:01 PM SKEIN TIER Anemia of unknown etiology FOLIC ACID (FOLATE) Routine 09/06/2021 1 2:01 PM SKEIN TIER Anemia of unknown etiology FERRITIN Routine 09/06/2021 12:01 PM SKEIN TIER Anemia of unknown etiology COMPLETE BLOOD COUNT (CBC) WITH DIFF Routine 09/06/2021 12:01 PM SKEIN TIER Anemia of unknown etiology documented in this encounter Results * (ABNORMAL) COMPLETE BLOOD COUNT (CBC) WITH DIFF (09/06/2021 12:01 PM SKEIN TIER) WBC 10.3(H) 4.0 - 10.0 10*3/uL [facility] HGB 9.7(L) 11.2 - 15.7 g/dL [facility] HCT 28.9(L) 34.1 - 44.9 % [facility] PLT 183 163 - 369 10*3/uL [facility] MPV 10.7 9.4 - 12.4 fL [facility] RBC 3.33(L) 3.93 - 5.22 10*6/uL [facility] MCV 87 79 - 95 fL [facility] MCH 29.1 25.6 - 32.2 pg [facility] MCHC 33.6 32.2 - 36.5 g/dL [facility] RDW 12.5 11.6 - 14.4 % [facility] Absolute Neutrophil Count 6,089 cells/uL [facility] Absolute Seg Count 6,089 1,440 - 6,600 cells/uL [facility] Absolute Lymph Count 2,270 760 - 4,000 cells/uL [facility] Absolute Davidson Count 929 160 - 1,200 cells/uL [facility] Absolute Eos Count 929(H) 0 - 300 cells/uL [facility] Absolute Baso Count 103(H) 0 - 100 cells/uL [facility] Segmented Neutrophils 59 36 - 66 % [facility] Lymphocytes 22 19 - 40 % [facility] Monocytes 9 4 - 12 % [facility] Eosinophils 9(H) 0 - 3 % [facility] Basophils 1 0 - 1 % [facility] WBC Estimate High [facility] Platelet Estimate Normal [facility] RBC Morphology Normal [facility] Blood 09/06/2021 12:0 1 PM SKEIN TIER Narrative [facility] - 09/06/2021 2:17 PM SKEIN TIER Release to patient->Immediate Srinivasa Lee MD HEMATOLOGY ORDERABLES Final Result Performing Organization Address City/[facility]/ZIP Co de Phone Number CAN[facility]ER [facility] [address] [place] [address], * FOLIC ACID (FOLATE) (09/06/2021 12:01 PM SKEIN TIER) Folate 12.24 >=5.90 ng/mL CANCER CUT IN WORKER [facility] Blood 09/06/2021 12:0 1 PM SKEIN TIER Narrative CANCER CUT IN WORKER [facility] - 09/07/2021 2:53 PM SKEIN TIER Release to patient->Immediate Srinivasa Lee MD CHEMISTRY ORDERABLES Final R esult CANCER CUT IN WORKER [facility] [place] [address] [place] [address], [place] [phone] * FERRITIN (09/06/2021 12:01 PM SKEIN TIER) Ferritin 89 11 - 307 ng/mL [facility] Blood 09/06/2021 12:0 1 PM SKEIN TIER Narrative [facility] - 09/07/2021 2:53 PM SKEIN TIER Release to patient->Immediate Srinivasa Lee MD CHEMISTRY ORDERABLES Final R esult Performing Organization Address City/[facility] Co de Phone Number [facility] [place] [address], [place] [phone] * RETICULOCYTE COUNT (RETIC) (09/06/2021 12:01 PM SKEIN TIER) Reticulocyte count 1.23 0.50 - 1.70 % [facility] RET-He 33.70 28.20 - 36.60 pg [facility] Comment: RET-He is a direct assessment of incorporation of iron into erythrocyte hemoglobin. It provides an indirect measure of the iron available for new erythropoiesis over past 2-4 days. Blood 09/06/2021 12:0 1 PM SKEIN TIER Narrative [facility] - 09/06/2021 12:20 PM SKEIN TIER Release to patient->Immediate Srinivasa Lee MD HEMATOLOGY ORDERABLES Final Result [facility] [address] [address], [place] [phone] * (ABNORMAL) IRON W/ IRON BINDING CAPACITY [place] (09/06/2021 12:01 PM SKEIN TIER) IRON 54 50 - 212 ug/dL [facility] UIBC 196 155 - 355 ug/dL [facility] TIBC 250(L) 261 - 478 ug/dl [facility] % Saturation 22 20 - 50 % [facility] 09/06/2021 12:0 1 PM SKEIN TIER Narrative [facility] - 09/06/2021 1:08 PM SKEIN TIER Release to patient->Immediate Srinivasa Lee MD LAB SEND OUTS Final Result Performing Organization Address City/[facility]/ZIP Co de Phone Number [facility] [address] [place] [address], * VITAMIN B12 (09/06/2021 12:01 PM SKEIN TIER) Vitamin B12 348 180 - 914 pg/mL [facility] Blood 09/06/2021 12:0 1 PM SKEIN TIER Narrative [facility] - 09/07/2021 2:53 PM SKEIN TIER Release to patient->Immediate Srinivasa Lee MD CHEMISTRY ORDERABLES Final R esult Performing Organization Address [facility] Co de Phone Number CANCER CUT IN WORKER [facility] [address] [place] [address], [place] [phone] documented in this encounter Visit Diagnoses Diagnosis Anemia of unknown etiology Anemia, unspecified documented in this encounter Additional Health Concerns Assessment Noted Time PHQ-9 Depression Total Score: 0 03/08/20 21 11:06 AM CDT documented as of this encounter Care Teams Iron Worker Foreman Relationship Specialty Start Date End Date Jonatan Worley [address] [place] [address] PCP - General Family Medicine 07/12/20 Srinivasa Lee MD [address] [place] [address] Consulting Physician Oncology 07/12/20 documented as of this encounter
--- OUTSIDE RECORDS SUMMARY | 2024-08-29 04:34 | XMS_ITS | Encounter Summary ---
Author Organization [facility] Address [address] [place] [address] Phone Care Team Providers Care Sandfill Operator Name Role Phone Jonatan Worley Primary Care Provider Srinivasa Lee MD Unavailable Reason for Visit * Reason Comments Follow-up Encounter Details Date Type Department Care Team (Latest Contact Info) Description 06/14/2022 9:30 AM CDT Office Visit [facility] [place] [address] [place] [address] Esther Oreilly, BODY SHOP SUPERVISOR, SOFTWARE ENGINEERING SPECIALIST [address] [place] [address] Hypogammaglobulinemia (HCC) (Primary Dx); Anemia of unknown [...] on file Legal Sex Female 11:51 AM REMELT SUGAR BOILER Gender Identity Not on file Sexual Orientation [...] y.o. : 1960 Encounter Dept: MED ONC [facility] Encounter Date: 06/14/2022 Care Team: Current Providers [...] shown below reviewed. MD Esther Arriola, MICHELA, [facility]- Vitals: Vitals: 06/14/22 0948 BP: 146/76 [...] 4 TIMES DAILY ??? ergocalciferol (VITAMIN D) 07432 UNIT Capsule TAKE 1 CAPSULE BY MOUTH [...] st Contact Info) Description 10/18/2024 1:30 PM REMELT SUGAR BOILER Office Visit [facility] [address] [phone] Srinivasa Lee MD [facility]2 M [facility] [address] [address] documented as of this encounter Results * (ABNORMAL) IRON W/ IRON BINDING CAPACITY [place] (09/06/2022 9:12 AM REMELT SUGAR BOILER) IRON 48(L) 50 - 212 ug/dL [facility] UIBC 189 155 - 355 ug/dL [facility] TIBC 237(L) 261 - 478 ug/dl [facility] % Saturation 20 20 - 50 % [facility] 09/06/2022 9:12 AM REMELT SUGAR BOILER Narrative [facility] - 09/06/2022 10:06 AM REMELT SUGAR BOILER Release to patient->Immediate Esther Oreilly APRN, CHERELLE LAB SEND OUTS F inal Result [facility] [address] [address], * FERRITIN (09/06/2022 9:12 AM REMELT SUGAR BOILER) Ferritin 49 11 - 307 ng/mL [facility] BLADDER [facility] Blood 09/06/2022 9:12 AM REMELT SUGAR BOILER Narrative CANCER BLADDER [facility] - 09/06/2022 2:01 PM REMELT SUGAR BOILER Release to patient->Immediate Esther Oreilly BODY SHOP SUPERVISOR, SOFTWARE ENGINEERING SPECIALIST CHEMISTRY ORDERAB LES Final Result CANCER BLADDER CHANGER [facility] [address] [place] [address], * (ABNORMAL) CMP (COMPREHENSIVE METABOLIC PANEL) (09/06/2022 9:12 AM REMELT SUGAR BOILER) Glucose 186(H) 70 - 105 mg/dL [facility] Blood Urea Nitrogen 43(H) 7 - 25 mg/dL [facility] Creatinine 2.6(H) 0.6 - 1.2 mg/dL [facility] Sodium 137 136 - 145 mEq/L [facility] Potassium 4.9 3.5 - 5.1 mEq/L [facility] Chloride 106 98 - 107 mEq/L [facility] Bicarbonate 22 21 - 31 mEq/L [facility] Total Bilirubin 0.3 0.3 - 1.0 mg/dL [facility] Alk. Phosphatase 76 34 - 104 U/L [facility] Aspartate Aminotransferase 14 13 - 39 U/L [facility] Alanine Aminotransferase 11 7 - 52 U/L [facility] Total Protein 5.2(L) 6.4 - 8.9 g/dL [facility] Albumin 3.1(L) 3.5 - 5.7 g/dL [facility] Calcium 8.3(L) 8.6 - 10.3 mg/dL [facility] Anion Gap 13.9 7.0 - 15.0 mEq/L [facility] Globulin 2.1 2.0 - 3.5 g/dL [facility] EGFR 20(L) >60 ml/min/1. 73m2 [facility] Comment: This eGFR is calculated using 2020 CKD-EPI Creatinine equation without race modifier based on the NKF-ASN task force recommendations Blood 09/06/2022 9:12 AM REMELT SUGAR BOILER Narrative [facility] - 09/06/2022 10:06 AM REMELT SUGAR BOILER IS THE PATIENT REQUIRED TO BE FASTING FOR 8 HOURS?->No Release to patient->Immediate Esther Oreilly BODY SHOP SUPERVISOR, SOFTWARE ENGINEERING SPECIALIST CHEMISTRY ORDERAB LES Final Result [facility] [address] [place] [address], * (ABNORMAL) COMPLETE BLOOD COUNT (CBC) WITH DIFF (09/06/2022 9:12 AM REMELT SUGAR BOILER) WBC 9.7 4.0 - 10.0 10*3/uL [facility] HGB 10.1(L) 11.2 - 15.7 g/dL [facility] HCT 29.5(L) 34.1 - 44.9 % [facility] PLT 184 163 - 369 10*3/uL [facility] MPV 11.4 9.4 - 12.4 fL [facility] RBC 3.35(L) 3.93 - 5.22 10*6/uL [facility] MCV 88 79 - 95 fL [facility] MCH 30.1 25.6 - 32.2 pg [facility] MCHC 34.2 32.2 - 36.5 g/dL [facility] RDW 12.4 11.6 - 14.4 % [facility] Absolute Neutrophil Count 6,472 cells/uL [facility] Absolute Seg Count 6,472 1,440 - 6,600 cells/uL [facility] Absolute Lymph Count 2,029 760 - 4,000 cells/uL [facility] Absolute [place] Count 580 160 - 1,200 cells/uL [facility] Absolute Eos Count 580(H) 0 - 300 cells/uL [facility] Segmented Neutrophils 67(H) 36 - 66 % [facility] Lymphocytes 21 19 - 40 % [facility] Monocytes 6 4 - 12 % [facility] Eosinophils 6(H) 0 - 3 % [facility] [place] WBC Estimate Normal [facility] Platelet Estimate Normal [facility] RBC Morphology Normal [facility] Blood 09/06/2022 9:12 AM REMELT SUGAR BOILER Narrative [facility] - 09/06/2022 11:23 AM REMELT SUGAR BOILER Release to patient->Immediate Esther Oreilly APRN, SOFTWARE ENGINEERING SPECIALIST HEMATOLOGY ORDERA BLES Final Result [facility] [place] [address] [place], [place] [address] [phone] documented in this encounter Visit Diagnoses Diagnosis Hypogammaglobulinemia (HCC)- Primary Hypogammaglobulinaemia, unspecified Anemia of unknown etiology Anemia, unspecified Hypogammaglobulinemia (HCC) Hypogammaglobulinaemia, unspecified Anemia of unknown etiology Anemia, unspecified documented in this encounter Additional Health Concerns Assessment Noted Time PHQ-9 Depression Total Score: 0 03/08/20 21 11:06 AM CDT documented as of this encounter Care Teams Sandfill Operator Relationship Specialty Start Date End Date Jonatan Worley [address] [facility] [place] [address] PCP - General Family Medicine 07/12/20 Srinivasa Lee MD [address] [place] [address] Consulting Physician Oncology 07/12/20 documented as of this encounter
--- OUTSIDE RECORDS SUMMARY | 2024-08-29 04:34 | XMS_ITS | Encounter Summary ---
Author Organization [employer] Care Team Providers Care Supervisor Metal Hanging Name Role Phone Jonatan Worley Primary Care Provider Srinivasa Lee MD Unavailable [phone] Encounter Details Date Type Department Care Team [...] on file Legal Sex Female 11:51 AM SHOE STAINER Gender Identity Not on file Sexual Orientation [...] st Contact Info) Description 10/18/2024 1:30 PM SHOE STAINER Office Visit [facility] [address] [address] Srinivasa Lee MD [address] [address] documented as of this encounter Visit Diagnoses Not on filedocumented in this encounter Additional Health Concerns Assessment Noted Time PHQ-9 Depression Total Score: 0 03/08/20 21 11:06 AM CDT documented as of this encounter Care Teams Supervisor Metal Hanging Relationship Specialty Start Date End Date Jonatan Worley [address] [place] [address] PCP - General Family Medicine 07/12/20 Srinivasa Lee MD [address] [place] [address] Consulting Physician Oncology 07/12/20 documented as of this encounter
[2024-08-31 11:23] LABS: Anti Nuclear Antibody Pattern Nuclear, Homogeneous
== END 2024-08-26 14:50 | disposition home or self-care (01) | DRG 207 ==
LOC: ANHED 14:32 → ANH3MEDSUR 16:48 → ANHICU 08-23 08:24 → ANHIMU 08-24 00:31 → ANH2MED 08-24 23:38
PROVIDERS: Nurse Practitioner; Nurse Practitioner Acute Care; Nurse Practitioner Gerontology; Physician Assistant; Admitting Provider Internal Medicine; Emergency Provider Emergency Medicine; PCP Emergency Medicine; Visit Provider Nurse Practitioner Family
DX: I31.39 Other pericardial effusion (noninflammatory) (principal); K52.9 Noninfective gastroenteritis and colitis, unspecified; N17.9 Acute kidney failure, unspecified; D63.1 Anemia in chronic kidney disease; E11.22 Type 2 diabetes mellitus with diabetic chronic kidney disease; E11.319 Type 2 diabetes mellitus with unspecified diabetic retinopathy without macular edema; I12.9 Hypertensive chronic kidney disease with stage 1 through stage 4 chronic kidney disease, or unspecified chronic kidney disease; I48.91 Unspecified atrial fibrillation; J90 Pleural effusion, not elsewhere classified; K57.30 Diverticulosis of large intestine without perforation or abscess without bleeding; R33.9 Retention of urine, unspecified; N18.4 Chronic kidney disease, stage 4 (severe); Z28.21 Immunization not carried out because of patient refusal; Z20.822 Contact with and (suspected) exposure to COVID-19; Z79.01 Long term (current) use of anticoagulants; Z88.0 Allergy status to penicillin; Z90.49 Acquired absence of other specified parts of digestive tract; Z87.891 Personal history of nicotine dependence
CPT/HCPCS: 32555; 36415; 36600; 71045; 71250; 74176; 80048; 80053; 80074; 81001; 82040; 82150; 82247; 82274; 82465; 82533; 82607; 82728; 82746; 82784; 82803; 82805; 82947; 82948; 83036; 83540; 83550; 83605; 83615; 83690; 83735; 83880; 84100; 84155; 84311; 84443; 84478; 84484; 85018; 85025; 85046; 85610; 85652; 85730; 86038; 86039; 86140; 86430; 86880; 87040; 87637; 89051; 93005; 93306; 96361; 96365; 96366; 99285; A9270; G0378; J0780; J1650; J1756; J1815; J1940; J2405; J7030; J7050; J7070; J7120

== ENCOUNTER 2024-09-06 23:35 | Inpatient (IN) | payer BC, SELFPAY ==
--- NOTE | ~2024-09-06 | XR_ITS ---
EXAMINATION: XR chest 1V portable DATE: 09/18/2024 13:13 INDICATION: Shortness of breath, cough and wheezing TECHNIQUE: frontal view of the chest was obtained. COMPARISON: Chest radiograph dated 09/07/2024 FINDINGS: Unchanged linear bands of discoid atelectasis/scarring at the bilateral lower lung zones. No new airs pace opacities, pulmonary edema, pleural effusion or pneumothorax. The cardiomediastinal silhouette i s normal. Cholecystectomy clips in right upper quadrant. IMPRESSION: 1. Unchanged linear atelectasis/scarring at the bilateral lower lungs. Reviewed, dictated and finalized at location A. OMS MANAGER
--- NOTE | ~2024-09-06 | CT_ITS ---
EXAMINATION: CT chest abdomen pelvis wo con DATE: 09/30/2024 09:38 INDICATION: Abdominal pain. TECHNIQUE: Computed tomography (CT) of the chest, abdomen, and pelvis was performed without intraveno us contrast. Automated exposure control and iterative reconstruction technique were employed. The dos e-length product was 1736.41 mGy-cm. COMPARISON: CT chest, abdomen, and pelvis 09/23/2024 FINDINGS: CHEST CT: The lungs demonstrate mild atelectasis. There are small pleural effusions. The heart size is normal. There are coronary artery calcifications. No pericardial effusion. There are nodules in the thyroid m easuring up to 7 mm, likely not clinically significant. There is mild thoracic spondylosis. ABDOMEN/PELVIS CT: The liver and spleen are normal. There are changes of cholecystectomy. The pancreas and adrenal gland s are normal. 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 Ther e is an acute subcapsular hematoma involving the kidneys. There is acute hematoma in the posterior pe ritoneum predominantly involving perinephric spaces. There is diverticulosis of the colon without michelle dence of diverticulitis. There are no dilated loops of bowel. The appendix is not visualized. There i s a moderate volume of ascites. There is edema of the intra-abdominal fat and body wall fat. There ar e no pathologically enlarged lymph nodes. There is severe lumbar spondylosis. IMPRESSION: 1. Acute subcapsular hematoma involving the horseshoe kidney with acute hematoma extending into the r etroperitoneal fat. 2. Worsened moderate volume of ascites. 3. Worsened small pleural effusions. Reviewed, dictated and finalized at location A. CY SPECIALIST IMPRESSION: 1. Acute subcapsular hematoma involving the horseshoe kidney with acute hematom a extending into the retroperitoneal fat. 2. Worsened moderate volume of ascites. 3. Worsened small pleural effusions.
--- NOTE | ~2024-09-06 | XR_ITS ---
EXAMINATION: XR chest port-a-cath/central DATE: 09/30/2024 11:37 INDICATION: Central line placement. TECHNIQUE: A single frontal view of the chest was obtained. COMPARISON: Chest single view at 9:06 AM FINDINGS: There is mild atelectasis in the lower lung zones. No pleural effusion or pneumothorax. The heart size is normal. A right internal jugular central venous catheter is seen with tip at the super ior cavoatrial junction. Surgical clips in the right upper quadrant are likely from cholecystectomy. IMPRESSION: 1. Central line tip at superior cavoatrial junction. 2. Mild atelectasis in the lower lung zones. Reviewed, dictated and finalized at location A. WARE ENGINEERING ASSOCIATE MANAGER
--- NOTE | ~2024-09-06 | XR_ITS ---
EXAMINATION: XR chest 1V portable Exam Date/Time: 09/22/2024 17:14 LABEL REWINDER HISTORY: Coarse lung sounds Comparison: 09/21/2024 in multiple additional prior chest radiograph; CT cap 08/22/2024. RESULT: Lines, tubes, and devices: None. Lungs and pleura: Leftward rotation. Right hemidiaphragm elevation. Diffuse groundglass opacity in t he right lung likely secondary to soft tissue artifact. Streaky bibasilar atelectasis/scar. Prominent osteophytosis at the right first costosternal junction which creates an artifactual nodular opacity. Cardiomediastinal silhouette: Stable. Other: No acute osseous or upper abdominal finding. IMPRESSION: No acute cardiopulmonary process. Reviewed, dictated and finalized at [facility] K. L REWINDER
--- NOTE | ~2024-09-06 | XR_ITS ---
EXAMINATION: XR chest 1V portable DATE: 09/30/2024 09:17 INDICATION: Respiratory distress. TECHNIQUE: A single frontal view of the chest was obtained. COMPARISON: Chest single view 09/22/2024, chest CT 09/23/2024 FINDINGS: The lung volumes are small. There is mild atelectasis at the lung bases. There are small pl eural effusions. No pneumothorax. The heart size is normal. Surgical clips in the right upper quadran t are likely from cholecystectomy. IMPRESSION: 1. Small pleural effusions. 2. Mild atelectasis at the lung bases. Reviewed, dictated and finalized at location A. E SPECIALIST
--- NOTE | ~2024-09-06 | XR_ITS ---
EXAMINATION: XR knee RT 3V DATE: 09/17/2024 12:14 INDICATION: Right knee injury. Fall. TECHNIQUE: 3 views of right knee were obtained. COMPARISON: None. FINDINGS: Alignment is normal. No fracture. There is mild tricompartmental osteoarthritis. No knee trudy int effusion. IMPRESSION: 1. Mild right knee osteoarthritis. Reviewed, dictated and finalized at location B. ET GRINDER OPERATOR
--- NOTE | ~2024-09-06 | CT_ITS ---
EXAMINATION: CT chest abdomen pelvis wo con DATE: 09/23/2024 22:37 INDICATION: acute anemia . TECHNIQUE: Computed tomography (CT) of the chest, abdomen, and pelvis was performed without intraveno us contrast. Automated exposure control and iterative reconstruction technique were employed. The dos e-length product was 1798.19 mGy-cm. COMPARISON: 08/22/2024; CT abdomen pelvis 09/07/2024; x-ray chest 09/22/2024 FINDINGS: Exam limited by beam hardening from arm down positioning. CHEST: Thoracic aorta: No significant dilation. No dissection. Mild atherosclerotic calcification. Lung parenchyma and airways: Scattered areas of scarring and dependent atelectasis. Patent airways. Thoracic inlet, axillae and chest wall: Multiple thyroid nodules measuring less than 1.5 cm which req uire no additional evaluation at this time. No soft tissue mass. No axillary lymphadenopathy. Mediastinum: No mass or lymphadenopathy. Heart and pericardium: Mild cardiomegaly. No pericardial effusion. Coronary artery calcifications: Mild. Pleura: Small left and trace right pleural fluid collections. Thoracic bones: No acute osseous finding in the chest. ABDOMEN/PELVIS: Liver: Normal. Biliary/Gallbladder: Gallbladder is absent. Prominent common bile duct likely secondary to cholecyste ctomy. Pancreas: Possible edema of the pancreatic head. Moderate peripancreatic stranding about the pancreat ic head. Spleen: Normal. Adrenals:No mass. Kidneys: No suspicious mass, obstructing stone, or hydronephrosis. Horseshoe kidney. GI tract: No small bowel dilation. The rectum is dilated to 5.8 cm by formed stool. Appendix not conf idently identified Mesentery/Peritoneum: No free air. Small volume ascites. Upper abdominal mesenteric stranding. Retroperitoneum: No mass Atherosclerotic calcifications of intra-abdominal arterial vessels. Pelvis: Distended urinary bladder without wall thickening. Normal uterus. Bilateral ovaries not confi dently identified. Presacral edema. Soft Tissues: Significant diffuse body wall edema. Abdominopelvic bones: No acute osseous finding in the abdomen/pelvis. IMPRESSION: Small left and trace right pleural effusions. Pancreatic head edema and peripancreatic inflammatory changes suggestive of acute interstitial pancre atitis. Correlate with pancreatic labs. Possible fecal impaction. Small volume ascites. Diffuse body wall edema. Reviewed, dictated and finalized at location K. FOUNDER AND CHIEF STRATEGY OFFICER IMPRESSION: Small left and trace right pleural effusions. Pancreatic head edema and peripancreatic inflammatory changes suggestive of acu te interstitial pancreatitis. Correlate with pancreatic labs. Possible fecal impaction. Small volume ascites. Diffuse body wall edema.
--- NOTE | ~2024-09-06 | XR_ITS ---
EXAMINATION: XR foot RT 2V DATE: 09/21/2024 17:51 INDICATION: Right foot pain. TECHNIQUE: 2 views of right foot on 3 radiographs were obtained. COMPARISON: None. FINDINGS: Alignment is normal. No fracture. There is moderate osteoarthritis of some of the midfoot j oints. There are enthesophytes at the posterior and plantar aspects of calcaneal tuberosity. Foot sof t tissue swelling is noted. IMPRESSION: 1. No fracture. Reviewed, dictated and finalized at location A. F PRIVACY OFFICER IMPRESSION: 1. No fracture.
--- NOTE | ~2024-09-06 | CT_ITS ---
Non-contrast Head CT History: Neurologic change COMPARISON: 12/06/2021 Technique: Axial non-contrast imaging of the brain was performed. Dose reduction technique was used on this scan by utilizing automated exposure control and iterative reconstruction technique. The dose -length product (DLP) was 605.33 mGy-cm. Findings: There is no evidence of intracranial hemorrhage, mass lesion, or acute infarct. Brain par enchyma appears normal. The ventricles and subarachnoid spaces are normal in size. The calvarium ap pears normal. The visualized paranasal sinuses and mastoid air cells are clear. Impression: No significant abnormality seen. Reviewed, dictated and finalized at location . TUNER Impression: No significant abnormality seen.
--- NOTE | ~2024-09-06 | XR_ITS ---
Portable chest x-ray Comparison: 08/23/2024 Clinical History: Weakness Findings: There is linear scarring or atelectasis at the lung bases. No other pulmonary abnormality seen. Cardiomediastinal silhouette is stable. Bones and soft tissues are unremarkable. Impression: Linear scarring or atelectasis at the lung bases, otherwise clear lungs. Reviewed, dictated and finalized at [facility]. SPERSON FLYING SQUAD Impression: Linear scarring or atelectasis at the lung bases, otherwise clear lungs.
--- NOTE | ~2024-09-06 | XR_ITS ---
EXAMINATION: XR tibia fibula LT 2V DATE: 09/17/2024 15:48 INDICATION: Fibular fracture. Fall. TECHNIQUE: 2 views of left tibia and fibula on 3 radiographs were obtained. COMPARISON: None. FINDINGS: There is a transverse fracture of proximal fibular diaphysis. The distal fracture fragment demonstrates 1 cortical width lateral displacement. There is an oblique fracture of distal fibula. Th e distal fracture fragment demonstrates 3 mm posterolateral displacement. There is a comminuted fract ure of distal tibia in near anatomic alignment. There is mild left knee osteoarthritis. There is a sm all left knee joint effusion. IMPRESSION: 1. Fractures of proximal and distal fibula. 2. Comminuted fracture of distal tibia. Reviewed, dictated and finalized at location B. T DUMPER
--- NOTE | ~2024-09-06 | XR_ITS ---
Portable chest x-ray Comparison: 09/30/2024 Clinical History: Shock Findings: Right IJ line is unchanged. Probable mild subcarinal congestive change. There is mild biba silar pulmonary edema/atelectasis. Cardiomediastinal silhouette is stable. Bones and soft tissues ar e unremarkable. Impression: Mild bibasilar pulmonary edema/atelectasis, with central pulmonary venous congestive change. Stable support line. Reviewed, dictated and finalized at location . EX THREAD WINDER Impression: Mild bibasilar pulmonary edema/atelectasis, with central pulmonary venous conge stive change. Stable support line.
--- NOTE | ~2024-09-06 | CT_ITS ---
Non-contrast CT scan of the Abdomen and Pelvis Clinical indication: Abdominal pain Technique: 2.5 mm axial scans were obtained through the abdomen and pelvis without intravenous or or al contrast. Dose reduction technique was used on this scan by utilizing automated exposure control a nd iterative reconstruction technique. The dose-length product (DLP) was 824.53 mGy-cm. COMPARISON: 08/22/2024 Findings: Images through the lung bases reveal minimal pleural effusions with minimal bibasilar atel ectatic change. There is no evidence of renal or ureteral calculi. The kidneys and the ureters are nondilated. Horses hoe kidney noted. The liver, spleen, pancreas, and adrenals appear normal. Cholecystectomy clips are present. There is no aortic aneurysm. There is no evidence of bowel obstruction. Images through the pelvis were performed. There is no evidence of ascites or lymphadenopathy. Urinary bladder unremarkable. No pelvic mass seen. Impression: Minimal bilateral pleural effusions. Horseshoe kidney. Reviewed, dictated and finalized at [facility]. ASONIC HAND SOLDERER Impression: Minimal bilateral pleural effusions. Horseshoe kidney.
--- NOTE | ~2024-09-06 | XR_ITS ---
HISTORY: fall with PT, proximal fib fx COMPARISON: None TECHNIQUE: 3 views of the left ankle were performed. FINDINGS: Comminuted fracture of the anterior distal tibia is identified. This fracture extends into the joint space of the tibiotalar joint Additional fracture deformity within the medial and lateral malleolus. The fracture within the medial malleolus extends also into the joint space and the articular surface of the tibiotalar joint. Signi ficant soft tissue swelling along the medial and lateral left ankle is noted. Ossification of the insertion of the tendon is present. Large calcaneal spur is noted. Diffuse bony demineralization is also present. IMPRESSION: Trimalleolar fracture of the left ankle, as detailed above. Reviewed, dictated and finalized at location A. LY NURSE PRACTITIONER
--- NOTE | ~2024-09-06 | XR_ITS ---
EXAMINATION: XR elbow RT min 3V DATE: 09/17/2024 12:14 INDICATION: Right elbow injury. Fall. TECHNIQUE: 3 views of right elbow were obtained. COMPARISON: None. FINDINGS: Alignment is normal. No fracture. Joint spaces are normal. No elbow joint effusion. IMPRESSION: 1. No fracture. Reviewed, dictated and finalized at location B. BLE REPRESENTATIVE IMPRESSION: 1. No fracture.
--- NOTE | ~2024-09-06 | XR_ITS ---
CHEST RADIOGRAPH CLINICAL HISTORY: Coughs . COMPARISON: 09/18/2024 and dating back to 08/22/2024 TECHNIQUE: Single portable view of the chest. FINDINGS The cardiomediastinal silhouette is unremarkable. Platelike atelectasis within the left mid to lower lung field. Remainder of the lungs are clear. IMPRESSION: No focal infiltrate or effusion. If clinical suspicion persists, cross-sectional imaging (noncontrast enhanced CT examination of the c hest) is recommended for further evaluation. Reviewed, dictated and finalized at location A. C.O.D. CLERK IMPRESSION: No focal infiltrate or effusion. If clinical suspicion persists, cross-sectional imaging (noncontrast enhanced C T examination of the chest) is recommended for further evaluation.
--- NOTE | ~2024-09-06 | US_ITS ---
EXAMINATION: US biopsy renal DATE: 09/29/2024 12:25 INDICATION: Chronic kidney disease with positive serologies TECHNIQUE: The procedure including the risks, benefits, and alternatives was discussed with the patie nt. Risks discussed included bleeding and infection. The patient understood the risks and agreed to p roceed. A timeout was performed to verify the patient's name, date of , and procedure to be p erformed. The skin overlying the left moiety of the horseshoe kidney was prepped and draped in usual sterile fashion. Anesthetic was administered with 1% lidocaine subcutaneously. An 18 gauge core bi opsy needle was then used to obtain 4 core biopsy specimens under continuous sonographic guidance. Th e entry site was cleaned and dressed. There were no immediate complications. FINDINGS: Ultrasound images demonstrate the needle in the kidney. IMPRESSION: 1. Ultrasound-guided random core needle biopsy of the left moiety of a horseshoe kidney. Reviewed, dictated and finalized at location A. TION MECHANIC IMPRESSION: 1. Ultrasound-guided random core needle biopsy of the left moiety of a horsesh oe kidney.
--- NOTE | ~2024-09-06 | XR_ITS ---
EXAMINATION: XR ankle LT min 3V DATE: 09/27/2024 14:12 INDICATION: Left ankle fracture. TECHNIQUE: 4 views of left ankle were obtained. COMPARISON: Left ankle radiographs 09/17/2024 FINDINGS: There is a comminuted fracture of medial malleolus. The main distal fracture fragment demon strates 2 mm lateral displacement. There is an oblique fracture of distal fibula with medial aspect o f the fracture line 9 mm proximal to the level of the tibial plafond. The distal fracture fragment de monstrates 3 mm posterolateral displacement. There is a fracture of posterior malleolus in near-anato byron alignment. There is mild midfoot osteoarthritis. There are enthesophytes at the posterior and bonny ntar aspects of calcaneal tuberosity. IMPRESSION: 1. Trimalleolar ankle fracture without change in alignment. Reviewed, dictated and finalized at location A. ENT SERVICES REPRESENTATIVE
--- NOTE | ~2024-09-06 | XR_ITS ---
EXAMINATION: XR knee LT 3V DATE: 09/17/2024 12:14 INDICATION: Left knee injury post fall TECHNIQUE: Anteroposterior, oblique and crosstable lateral views of the left knee were obtained COMPARISON: None. FINDINGS: Minimally displaced acute fracture the proximal left fibular diaphysis. Alignment is otherwise normal . No other fractures identified. Mild tricompartmental osteoarthritis at the left knee. No left knee joint effusion. IMPRESSION: 1. Minimally displaced extra articular fracture of the proximal left fibular diaphysis. Correlate for any associated ankle pain and consider additional radiographs of the more distal tibia and fibula as clinically indicated. Reviewed, dictated and finalized at location A. PATCHER IMPRESSION: 1. Minimally displaced extra articular fracture of the proximal left fibular di aphysis. Correlate for any associated ankle pain and consider additional radiog raphs of the more distal tibia and fibula as clinically indicated.
[2024-09-06 23:37] VITALS: BP 116/59; PULSE 79; RESP 18; TEMP 36.3; O2SAT 100
[2024-09-07] VITALS (10 sets, daily range): BP systolic 135–175; BP diastolic 66–83; PULSE 79–91; RESP 12–22; TEMP 36.2–36.6; O2SAT 98–100; BMI 32.6
--- NOTE | 2024-09-07 01:17 | ECG_ITS ---
Test Date: 2024-09-07 02:02:19 Measurements Intervals [place] Rate: 79 P: 42 TN: 208 QRS: -51 QRSD: 132 T: -5 QT: 441 QTc: 507 Interpretive Statements SINUS RHYTHM LEFT AXIS DEVIATION [QRS AXIS < -30] RIGHT BUNDLE BRANCH BLOCK [120+ ms QRS DURATION, UPRIGHT V1, 40+ ms S IN I/aVL/V4/V5/V6] Compared to ECG 08/23/2024 12:27:31 Atrial fibrillation no longer present Electronically Signed On 09-07-2024 15:15:49 DELIVERY TECHNICIAN by Vijay Walter M.D.
--- NOTE | 2024-09-07 01:18 | ED.WEAKNESS ---
HPI - Weakness General Chief complaint: Weakness <Valentina Virgen PA-C - Last Filed: 09/07/24 02:51> Stated complaint: weakness, loss of appetite, N/V <Valentina Virgen PA-C - Last Filed: 09/07/24 02:51> Time Seen by Provider: 09/07/24 01:10 <Valentina Virgen PA-C - Last Filed: 09/07/24 02:51> History of Present Illness HPI Narrative: 63-year-old female with history of hypertension, CKD, DM, atrial flutter on Eliquis presents to the emergency department with and son at bedside for generalized weakness for 1 week. Patient states she cannot keep anything down and if she tries to eat something it ?runs right through me?. Last bowel movement was prior to arrival and was diarrhea per her . The patient reports diffuse generalized weakness and malaise as well as nausea and vomiting. She is reporting diffuse abdominal pain. Denies dysuria or hematuria, cough or congestion fever, chest pain. Patient was recently admitted on 08/22/2024 for the same presentation and BUTCH. She was discharged on 08/26/2024 after admission which revealed BUTCH on CKD, pericardial effusion on CT a with diagnosis of pericarditis on ibuprofen and colchicine, gastroenteritis, anemia, hypertension, diabetes. Patient states she was doing well for a few days cell symptoms returned again a week ago. <Valentina Virgen PA-C - Last Filed: 09/07/24 02:51> Related Data Home medications: Home Medications ?Medication ?Instructions ?Recorded ?Confirmed ?Last Taken ?Type amlodipine 5 mg tablet 5 mg PO QAM 08/22/24 08/22/24 08/21/24 History brimonidine 0.2 % eye drops 1 drp EACH EYE BID 08/22/24 08/22/24 08/21/24 History cholecalciferol (vitamin D3) 50 50 mcg PO QAM 08/22/24 08/22/24 08/21/24 History mcg (2,000 unit) tablet (D3 DOTS) dorzolamide 2 % eye drops 1 drp RIGHT EYE BID 08/22/24 08/22/24 08/21/24 History ferrous sulfate 325 mg (65 mg 325 mg PO QAM 08/22/24 08/22/24 08/21/24 History iron) tablet (FeroSul) hydralazine 50 mg tablet 50 mg PO TID 08/22/24 08/22/24 08/21/24 History metoprolol succinate 100 mg 100 mg PO QAM 08/22/24 08/22/24 08/21/24 History tablet,extended release 24 hr polyvinyl alcohol-povidone 0.5 1 drp RIGHT EYE BID 08/22/24 08/22/24 08/21/24 History %-0.6 % eye drops (Artificial Tears (polyvinyl alcohol/povidone)) rosuvastatin 5 mg tablet 5 mg PO QAM 08/22/24 08/22/24 08/21/24 History sodium bicarbonate 650 mg tablet 650 mg PO TID 08/22/24 08/22/24 08/21/24 History timolol maleate 0.5 % eye drops 1 drp EACH EYE BID 08/22/24 08/22/24 08/21/24 History <Valentina Virgen PA-C - Last Filed: 09/07/24 02:51> Allergies/Adverse reactions: Allergies Allergy/AdvReac Type Severity Reaction Status Date / Time Penicillins Allergy Unknown Unknown Verified 08/22/24 08:03 coconut Allergy Hives Verified 08/22/24 08:03 <Valentina Virgen PA-C - Last Filed: 09/07/24 02:51> Review of Systems Review of Systems: All systems reviewed & are unremarkable except as noted in HPI and below <Valentina Virgen PA-C - Last Filed: 09/07/24 02:51> [facility] Past Medical History Medical History: Medical History Diabetes mellitus Chronic renal disease Anxiety <Valentina Virgen PA-C - Last Filed: 09/07/24 02:51> Surgical History Surgical History: Surgical History History of appendectomy <Valentina Virgen PA-C - Last Filed: 09/07/24 02:51> Social History Social History: Social History Smoking status: Former smoker Tobacco type: cigarettes Alcohol intake: never Substance use: never Substance use type: does not use Do You Feel Safe in your Home?: Yes Lack of Transportation: No Lack of Food: Never True Current Housing: I Have Housing Concerned About Future Housing: No Difficulty Paying Gas/Electric Bills: No Difficulty Paying for Meds: No Currently Unemployed: No Education: High School Diploma/GED Difficulty w/ Childcare or Family Care: No Spiritual care concerns: No <Valentina Virgen PA-C - Last Filed: 09/07/24 02:51> Exam Narrative: GENERAL: Ill appearing, well-nourished, and in no acute distress. HEAD: Normocephalic, atraumatic. EYES: PERRLA and EOMI. ENT: Nares clear, no rhinorrhea or epistaxis. Mucous membranes dry NECK: Supple. CHEST: Clear to auscultation. No respiratory distress. HEART: Regular rate and rhythm. No murmur heard. Normal peripheral pulses. ABDOMEN: Quiet bowel sounds. Abdomen soft with diffuse tenderness, no rebound or rigidity. No CVA tenderness EXTREMITIES: Normal range of motion. No edema. SKIN: Warm, dry, no rash. NEURO: No focal deficits. Alert and oriented x3 <Valentina Virgen PA-C - Last Filed: 09/07/24 02:51> Course LEGAL RESEARCH ANALYST/PA Physician Supervision For this patient encounter, I reviewed the LEGAL RESEARCH ANALYST or PA documentation, treatment plan, and medical decision making and had [id number] time with this patient. I performed all aspects of the MDM as documented. <Rodriguez Piedra MD - Last Filed: 09/07/24 04:56> Vital Signs Vital signs: Vital Signs Temperature 97.4 F L 09/06/24 23:37 Pulse Rate 79 09/06/24 23:37 Respiratory Rate 18 09/06/24 23:37 Blood Pressure 116/59 L 09/06/24 23:37 Pulse Oximetry 100 09/06/24 23:37 Oxygen Delivery Room Air 09/06/24 23:37 Temperature 97.4 F L 09/06/24 23:37 Pulse Rate 79 09/06/24 23:37 Respiratory Rate 18 09/06/24 23:37 Blood Pressure 116/59 L 09/06/24 23:37 Pulse Oximetry 100 09/06/24 23:37 Oxygen Delivery Room Air 09/06/24 23:37 <Valentina Virgen PA-C - Last Filed: 09/07/24 02:51> Vital Signs Temperature 97.4 F L 09/06/24 23:37 Pulse Rate 79 09/06/24 23:37 Respiratory Rate 18 09/06/24 23:37 Blood Pressure 116/59 L 09/06/24 23:37 Pulse Oximetry 100 09/06/24 23:37 Oxygen Delivery Room Air 09/06/24 23:37 Temperature 97.4 F L 09/06/24 23:37 Pulse Rate 79 09/06/24 23:37 Respiratory Rate 18 09/06/24 23:37 Blood Pressure 116/59 L 09/06/24 23:37 Pulse Oximetry 100 09/06/24 23:37 Oxygen Delivery Room Air 09/06/24 23:37 <Rodriguez Piedra MD - Last Filed: 09/07/24 04:56> MDM - Weakness MDM Narrative Medical decision making narrative: 63-year-old female presents to the emergency department for generalized weakness, malaise, N/V/D for 1 week. See HPI for further history. Vitals with soft blood pressure 116/59, otherwise unremarkable. She is afebrile and is ill appearing, see exam above. CBC shows leukopenia of 3.7, chronic stable anemia with hemoglobin of 10. Chemistries reveal acute on chronic kidney disease with a creatinine of 4.2, most recent in 09/18 was 3.3. BUN elevated at 51. Calcium chronically low at 7.8. Chronic transaminitis. Her last labs are negative. Lipase is normal. Chest x-ray shows no acute cardiopulmonary findings. EKG shows sinus rhythm with rate of 79 ppm, first-degree AV block with a [place] interval of 208, normal QRS duration QTC RBBB, no ischemic changes. Patient received IV fluids, Zofran, Pepcid. Pending CT abdomen/pelvis at time of sign-out to Dr. Piedra. <Valentina Virgen PA-C - Last Filed: 09/07/24 02:51> 63-year-old female presents to the emergency department for generalized weakness, malaise, N/V/D for 1 week. See HPI for further history. Vitals with soft blood pressure 116/59, otherwise unremarkable. She is afebrile and is ill appearing, see exam above. CBC shows leukopenia of 3.7, chronic stable anemia with hemoglobin of 10. Chemistries reveal acute on chronic kidney disease with a creatinine of 4.2, most recent in 09/18 was 3.3. BUN elevated at 51. Calcium chronically low at 7.8. Chronic transaminitis. Her last labs are negative. Lipase is normal. Chest x-ray shows no acute cardiopulmonary findings. EKG shows sinus rhythm with rate of 79 ppm, first-degree AV block with a NJ interval of 208, normal QRS duration QTC RBBB, no ischemic changes. Patient received IV fluids, Zofran, Pepcid. Pending CT abdomen/pelvis at time of sign-out to Dr. Piedra. Patient was signed out to ne pending CT abdomen pelvis with IV contrast. CT was obtained revealing enteritis, otherwise no acute process. Patient was updated regarding CT findings and plan for admission and she is agreeable with this plan. Case was discussed with the on-call hospitalist Dr. Dewey at 0450 regarding admission for BUTCH and she accepted admission. Patient was administered a 2 L IV fluid bolus with normal saline and continued on maintenance fluids at a rate of 100 cc/hour. <Rodriguez Piedra MD - Last Filed: 09/07/24 04:56> Lab Data Result diagrams: 09/07/24 01:32 09/07/24 01:32 <Valentina Virgen PA-C - Last Filed: 09/07/24 02:51> Labs: Lab Results 09/07/24 09/07/24 Range/Units 01:31 01:32 WBC 3.7 L (4.5-10.0) K/mm3 RBC 3.64 L (4.2-5.4) M/mm3 Hgb 10.0 L (12.0-15.0) g/dL Hct 31.9 L (37.0-47.0) % MCV 87.6 (80-100) fl MCH 27.5 (26-34) pg MCHC 31.3 L (32-36) g/dl RDW 15.3 H (11.5-14.5) % Plt Count 158 (150-375) k/mm3 MPV 12.1 H (7.4-10.4) fl Immature Gran % (Auto) 0.5 (0-0.5) % Neut % (Auto) 65.2 (45.5-73.1) % Lymph % (Auto) 26.8 (18.3-44.2) % [place] % (Auto) 7.0 (2.6-8.5) % Eos % (Auto) 0.0 (0-4.4) % Baso % (Auto) 0.5 (0.2-1.2) % Lymph # (Auto) 0.99 (0.9-3.2) K/mm3 [place] # (Auto) 0.3 (0.1-0.6) K/mm3 Eos # (Auto) 0.0 (0-0.3) K/mm3 Baso # (Auto) 0.0 (0.0-0.1) K/mm3 Abs Immat Gran (auto) 0.02 (0.00-0.031) K/mm3 Absolute Neuts (auto) 2.4 (1.3-6.7) K/mm3 Absolute Nucleated RBC 0.000 (0.0-0.012) K/mm3 Nucleated RBC % 0.0 (0.0-0.2) % PT 16.7 H (11.1-14.7) Seconds INR 1.3 APTT 34.6 (22.3-36.8) Seconds Sodium 138 (137-145) mmol/L Potassium 4.8 (3.4-5.0) mmol/L Chloride 108 H (98-107) mmol/L Carbon Dioxide 20 L (22-30) mmol/L Anion Gap 10 (4-12) mmol/L BUN 51 H (7-17) mg/dL Creatinine 4.21 H (0.7-1.0) mg/dL Estim Creat Clear Calc Not Reportable Estimated GFR 11 L (59 - ) Glucose 199 H (65-110) mg/dL Calcium 7.8 L (8.4-10.2) mg/dL Magnesium 1.7 (1.6-2.3) mg/dL Total Bilirubin 0.5 (0.2-1.3) mg/dL AST 92 H (14-36) U/L ALT 60 H (6-35) U/L Alkaline Phosphatase 137 H (38-126) U/L Total Protein 6.0 L (6.3-8.2) g/dL Albumin 3.0 L (3.5-5.1) g/dL Lipase 80 (23-300) U/L Influenza A (RT-PCR) Negative (Negative) Influenza B (RT-PCR) Negative (Negative) RSV (RT-PCR) Negative (Negative) SARS-CoV-2 RNA (RT-PCR) Negative (Negative) <Valentina Virgen PA-C - Last Filed: 09/07/24 02:51> Lab Results 09/07/24 09/07/24 Range/Units 01:31 01:32 WBC 3.7 L (4.5-10.0) K/mm3 RBC 3.64 L (4.2-5.4) M/mm3 Hgb 10.0 L (12.0-15.0) g/dL Hct 31.9 L (37.0-47.0) % MCV 87.6 (80-100) fl MCH 27.5 (26-34) pg MCHC 31.3 L (32-36) g/dl RDW 15.3 H (11.5-14.5) % Plt Count 158 (150-375) k/mm3 MPV 12.1 H (7.4-10.4) fl Immature Gran % (Auto) 0.5 (0-0.5) % Neut % (Auto) 65.2 (45.5-73.1) % Lymph % (Auto) 26.8 (18.3-44.2) % [place] % (Auto) 7.0 (2.6-8.5) % Eos % (Auto) 0.0 (0-4.4) % Baso % (Auto) 0.5 (0.2-1.2) % Lymph # (Auto) 0.99 (0.9-3.2) K/mm3 [place] # (Auto) 0.3 (0.1-0.6) K/mm3 Eos # (Auto) 0.0 (0-0.3) K/mm3 Baso # (Auto) 0.0 (0.0-0.1) K/mm3 Abs Immat Gran (auto) 0.02 (0.00-0.031) K/mm3 Absolute Neuts (auto) 2.4 (1.3-6.7) K/mm3 Absolute Nucleated RBC 0.000 (0.0-0.012) K/mm3 Nucleated RBC % 0.0 (0.0-0.2) % PT 16.7 H (11.1-14.7) Seconds INR 1.3 APTT 34.6 (22.3-36.8) Seconds Sodium 138 (137-145) mmol/L Potassium 4.8 (3.4-5.0) mmol/L Chloride 108 H (98-107) mmol/L Carbon Dioxide 20 L (22-30) mmol/L Anion Gap 10 (4-12) mmol/L BUN 51 H (7-17) mg/dL Creatinine 4.21 H (0.7-1.0) mg/dL Estim Creat Clear Calc Not Reportable Estimated GFR 11 L (59 - ) Glucose 199 H (65-110) mg/dL Calcium 7.8 L (8.4-10.2) mg/dL Magnesium 1.7 (1.6-2.3) mg/dL Total Bilirubin 0.5 (0.2-1.3) mg/dL AST 92 H (14-36) U/L ALT 60 H (6-35) U/L Alkaline Phosphatase 137 H (38-126) U/L Total Protein 6.0 L (6.3-8.2) g/dL Albumin 3.0 L (3.5-5.1) g/dL Lipase 80 (23-300) U/L Influenza A (RT-PCR) Negative (Negative) Influenza B (RT-PCR) Negative (Negative) RSV (RT-PCR) Negative (Negative) SARS-CoV-2 RNA (RT-PCR) Negative (Negative) <Rodriguez Piedra MD - Last Filed: 09/07/24 04:56> Discharge Plan Discharge Clinical Impression: BUTCH (acute kidney injury), Enteritis <Valentina Virgen PA-C - Last Filed: 09/07/24 02:51> Patient Disposition: Still a Patient <Valentina Virgen PA-C - Last Filed: 09/07/24 02:51> Condition: Improved <Valentina Virgen PA-C - Last Filed: 09/07/24 02:51> Patient Language: Niuean <Valentina Virgen PA-C - Last Filed: 09/07/24 02:51> Prescriptions: No Action amlodipine 5 mg tablet 5 mg PO QAM brimonidine 0.2 % drops 1 drp EACH EYE BID dorzolamide 2 % drops 1 drp RIGHT EYE BID timolol maleate 0.5 % drops 1 drp EACH EYE BID metoprolol succinate 100 mg tablet extended release 24 hr 100 mg PO QAM rosuvastatin 5 mg tablet 5 mg PO QAM ferrous sulfate [FeroSul] 325 mg (65 mg iron) tablet 325 mg PO QAM cholecalciferol (vitamin D3) [D3 DOTS] 50 mcg (2,000 unit) tablet 50 mcg PO QAM hydralazine 50 mg tablet 50 mg PO TID sodium bicarbonate 650 mg tablet 650 mg PO TID Artificial Tears(pvalch-povid) 0.5-0.6 % drops 1 drp RIGHT EYE BID ibuprofen 600 mg Tablet 600 mg PO TID Qty: 30 0RF colchicine [Colcrys] 0.6 mg Tablet 0.6 mg PO Q12HR Qty: 120 0RF Eliquis 2.5 mg tablet 2.5 mg PO BID Qty: 60 0RF Rx Instructions: Renal adjusted (DME) 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
[2024-09-07] MEDS: LACTATED RINGERS 1,000 ML 999 ML IV CONT (01:37)
[2024-09-07] MEDS: ONDANSETRON INJ 4 MG/2 ML VIAL IV PUSH ×3 (01:37→09:25)
[2024-09-07] MEDS: FAMOTIDINE 20 MG/2 ML VIAL IV PUSH ×2 (01:37→20:42)
[2024-09-07 01:38] LABS: Basophils Percent Auto 0.5 % (0.2-1.2); Hematocrit 31.9 % (37.0-47.0); Immature Granulocyte Absolute 0.02 K/mm3 (0.00-0.031); Immature Granulocyte Percent A 0.5 % (0-0.5); Lymphocytes Absolute Auto 0.99 K/mm3 (0.9-3.2); Lymphocytes Percent Auto 26.8 % (18.3-44.2); Mean Corpuscular HGB Conc 31.3 g/dl (32-36); Mean Corpuscular Hemoglobin 27.5 pg (26-34); Mean Corpuscular Volume 87.6 fl (80-100); Mean Platelet Volume 12.1 fl (7.4-10.4); Monocytes Absolute Auto 0.3 K/mm3 (0.1-0.6); Neutrophils Absolute Auto 2.4 K/mm3 (1.3-6.7); Neutrophils Percent Auto 65.2 % (45.5-73.1); Platelet Count Result 158 k/mm3 (150-375); Red Blood Count 3.64 M/mm3 (4.2-5.4); Red Cell Distribution Width 15.3 % (11.5-14.5); White Blood Count 3.7 K/mm3 (4.5-10.0)
[2024-09-07 01:51] LABS: Alanine Aminotransferase 60 U/L (6-35); Alkaline Phosphatase 137 U/L (38-126); Anion Gap 10 mmol/L (4-12); Aspartate Amino Transferase 92 U/L (14-36); Bilirubin,Total 0.5 mg/dL (0.2-1.3); Blood Urea Nitrogen 51 mg/dL (7-17); Calcium 7.8 mg/dL (8.4-10.2); Carbon Dioxide 20 mmol/L (22-30); Chloride 108 mmol/L (98-107); Estimated Glomerular Filt Rate 11; Glucose 199 mg/dL (65-110); Lipase 80 U/L (23-300); Potassium 4.8 mmol/L (3.4-5.0); Sodium 138 mmol/L (137-145)
[2024-09-07 02:14] LABS: Influenza A QL RT-PCR Negative (Negative); Influenza B QL RT-PCR Negative (Negative); RSV RNA, RT-PCR Negative (Negative); SARS-CoV-2 RNA PCR Negative (Negative)
[2024-09-07 02:49] LABS: Magnesium 1.7 mg/dL (1.6-2.3)
[2024-09-07 02:50] LABS: INR 1.3; Prothrombin Time 16.7 Seconds (11.1-14.7)
[2024-09-07 02:51] LABS: Partial Thromboplastin Time 34.6 Seconds (22.3-36.8)
[2024-09-07] MEDS: SODIUM CHLORIDE 0.9% IV 1,000 ML 999 ML IV CONT (05:05)
[2024-09-07] MEDS: SODIUM CHLORIDE 0.9% IV 1,000 ML 100 ML IV CONT (05:06)
--- NOTE | 2024-09-07 05:14 | PC.NURSE ---
edp dr ese md vorb 4mg ivp zofran.
[2024-09-07 06:19] LABS: Add Urine Microscopic? YES; Appearance Urine Clear (Clear); Bacteria Urine None Seen /hpf; Bilirubin Urine Negative (Negative); Blood Urine Trace (Negative); Color Urine Yellow (Yellow); Glucose Urine UA Trace mg/dL (Negative); Ketones Urine Trace mg/dL (Negative); Leukocyte Esterase Ur Negative LEU/UL (Negative); Need Manual Microscopic Reviewed; Nitrate Urine Negative (Negative); Non Pathogenic Casts 0-2; Protein Urine 3+ mg/dL (Negative); RBC Urine 21-50 /hpf (0-2); Specific Grav Ur 1.015 (1.001-1.035); Squamous Epithelial Cell Urine Moderate /hpf (Few); Urobilinogen Urine 0.2 mg/dL (<2.0)
--- NOTE | 2024-09-07 08:52 | P.HP_ITS ---
H&P: HPI History of Present Illness Date/Time: 09/07/24 08:52 Chief Complaint: nausea , vomiting and diarrhea Narrative: 63-year-old female with CKD creatinine baseline 3.[address] Shook & Rosa Delgado NP, diabetes, anxiety Presents the hospital with weakness, nausea and vomiting. Patient was recently admitted for pericarditis and gastroenteritis with recommendations to follow-up with a roof truss builder. patient states then discharged from last hospitalization she was tolerating food however that only lasted a day or 2. Now whenever she eats she either vomits or has acute diarrhea. She states that she has had issues eating for the last 2 or 3 weeks with light weight loss and generalized weakness affecting her ADLs. laboratory work shows leukopenia at 3.7, hemoglobin of 10.0 improved from last hospitalization, creatinine of 4.21, GFR of 11, UA noninfected, chest x-ray shows no acute process CT shows minimal pleural effusions, and horseshoe kidney. Review of Systems Review of Systems: 12 systems were reviewed and are negative except for as per HPI. [facility] Past Medical History Medical History (Updated 09/07/24 @ 15:13 by Roz Sheikh, DIDI) Diabetes mellitus Chronic renal disease Anxiety Surgical History Surgical History History of appendectomy Family History Family History (Updated 09/07/24 @ 07:39 by Donald Fitzpatrick RN) Father Hypertension Diabetes mellitus Lymphoma Grandparent Diabetes mellitus Grandparent Diabetes mellitus Mother Pacemaker Social History Social History Smoking status: Former smoker Tobacco type: cigarettes Alcohol intake: former Substance use: former Substance use type: does not use Do You Feel Safe in your Home?: Yes Lack of Transportation: No Lack of Food: Never True Current Housing: I Have Housing Concerned About Future Housing: No Difficulty Paying Gas/Electric Bills: No Difficulty Paying for Meds: No Currently Unemployed: No Education: High School Diploma/GED Difficulty w/ Childcare or Family Care: No Spiritual care concerns: No Meds Home Medications and Allergies Home Medications ?Medication ?Instructions ?Recorded ?Confirmed ?Type amlodipine 5 mg tablet 5 mg PO QAM 08/22/24 09/07/24 History brimonidine 0.2 % eye drops 1 drp EACH EYE BID 08/22/24 09/07/24 History cholecalciferol (vitamin D3) 50 50 mcg PO QAM 08/22/24 09/07/24 History mcg (2,000 unit) tablet (D3 DOTS) dorzolamide 2 % eye drops 1 drp RIGHT EYE BID 08/22/24 09/07/24 History ferrous sulfate 325 mg (65 mg 325 mg PO QAM 08/22/24 09/07/24 History iron) tablet (FeroSul) hydralazine 50 mg tablet 50 mg PO TID 08/22/24 09/07/24 History metoprolol succinate 100 mg 100 mg PO QAM 08/22/24 09/07/24 History tablet,extended release 24 hr polyvinyl alcohol-povidone 0.5 1 drp RIGHT EYE BID 08/22/24 09/07/24 History %-0.6 % eye drops (Artificial Tears (polyvinyl alcohol/povidone)) rosuvastatin 5 mg tablet 5 mg PO QAM 08/22/24 09/07/24 History sodium bicarbonate 650 mg tablet 650 mg PO TID 08/22/24 09/07/24 History timolol maleate 0.5 % eye drops 1 drp EACH EYE BID 08/22/24 09/07/24 History apixaban 2.5 mg tablet (Eliquis) 2.5 mg PO BID #60 tabs 08/26/24 09/07/24 Rx blood-glucose meter,continuous #1 ea 08/26/24 Rx (Dexcom G6 Director Of Video [employer]) blood-glucose sensor (Dexcom G6 #3 ea 08/26/24 Rx Sensor device) blood-glucose transmitter (Dexcom #1 ea 08/26/24 Rx G6 Transmitter device) colchicine 0.6 mg tablet (Colcrys) 0.6 mg PO Q12HR #120 tabs 08/26/24 09/07/24 Rx ibuprofen 600 mg tablet 600 mg PO TID #30 tabs 08/26/24 09/07/24 Rx Allergies Allergy/AdvReac Type Severity Reaction Status Date / Time Penicillins Allergy Unknown Unknown Verified 09/07/24 06:30 coconut Allergy Hives Verified 09/07/24 06:30 Vital Signs Vital Signs - 24 hr 09/06/24 23:37 09/07/24 04:53 09/07/24 05:37 Temperature 97.4 F L Pulse Rate 79 84 Respiratory Rate 18 22 H Blood Pressure 116/59 L 148/77 H Pulse Oximetry 100 100 100 Oxygen Delivery Room Air Room Air 09/07/24 05:37 09/07/24 06:18 09/07/24 08:48 Temperature 97.9 F Pulse Rate 88 86 Respiratory Rate 20 12 Blood Pressure 135/80 139/66 Pulse Oximetry 100 99 100 Oxygen Delivery Room Air Exam 2 Narrative: General: well appearing, appears older than stated age. HEENT: normocephalic, atraumatic. Mucous membranes moist. EOMI, PERRLA, bilateral sclera anicteric, no conjunctival injection. Neck supple without JVD, lymphadenopathy, or bruit. Respiratory: clear to ascultation bilaterally. No rales/rhonic/wheezes. Cardiovascular: Regular rate and rhythm, normal S1-S2 upon ascultation. No murmurs, rubs, or clicks. PMI is nondisplaced, capillary refill less than 3 second. Abdomen: Soft, round, no pulsatile masses, nondistended and nontender. No re bound, no guarding. No CVA tenderness, no hepatosplenomegaly. Bowel sounds present to all four quadrants. No high pitch or tinkling sounds, resonant to percussion. Extremities: No cyanosis, clubbing, or edema present. Pulses are palpable 2/2. Active ROM to all four extremities. Neuro: Alert and orientated x 4. PERRLA. Cranial nerves 2-12 intact without focal deficit. Skin: Warm, dry, and intact, without rash, erythema, or lesion. Psych: pleasant, cooperative, normal speech, normal affect, no hallucinations, no dysarthia H&P: Results Labs Labs: Short CBC 09/07/24 Range/Units 01:32 WBC 3.7 L (4.5-10.0) K/mm3 Hgb 10.0 L (12.0-15.0) g/dL Hct 31.9 L (37.0-47.0) % Plt Count 158 (150-375) k/mm3 BMP 09/07/24 01:32 Sodium 138 Potassium 4.8 Chloride 108 H Carbon Dioxide 20 L BUN 51 H Creatinine 4.21 H Glucose 199 H Calcium 7.8 L Liver Function 09/07/24 Range/Units 01:32 Total Bilirubin 0.5 (0.2-1.3) mg/dL AST 92 H (14-36) U/L ALT 60 H (6-35) U/L Alkaline Phosphatase 137 H (38-126) U/L Albumin 3.0 L (3.5-5.1) g/dL Urine 09/07/24 Range/Units 05:36 Urine Color Yellow (Yellow) Urine Appearance Clear (Clear) Urine pH 7.0 (5.0-9.0) Ur Specific [place] 1.015 (1.001-1.035) Urine Protein 3+ H (Negative) mg/dL Urine Glucose (UA) Trace H (Negative) mg/dL Assessment and Plan Assessment and plan (1) Diarrhea: Code(s): R19.7 - Diarrhea, unspecified Status: Acute Assessment and Plan: C diff test pending (2) BUTCH (acute kidney injury): Code(s): N17.9 - Acute kidney failure, unspecified Status: Acute Assessment and Plan: on CKD stage 4 nephrology consulted continue sodium bicarb tabs hold nephrotoxic medications IV fluids for hydration (3) Enteritis: Code(s): K52.9 - Noninfective gastroenteritis and colitis, unspecified Status: Acute Assessment and Plan: with nausea and vomiting Carafate with meals Pepcid b.i.d. 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 insulin use: without jail use Diabetes mellitus macular edema: without macular edema Diabetes mellitus type: type 2 Diabetic retinopathy severity: with unspecified retinopathy severity Laterality: right Qualified Code(s): E11.319 - Type 2 diabetes mellitus with unspecified diabetic retinopathy without macular edema Code(s): E11.9 - Type 2 diabetes mellitus without complications Status: Chronic Assessment and Plan: diabetic diet SSI (6) Anemia: Code(s): D64.9 - Anemia, unspecified Status: Acute Assessment and Plan: improved from earlier this month (7) Hypertension: Code(s): I10 - Essential (primary) hypertension Status: Chronic Assessment and Plan: continue home antihypertensives (8) Retinal detachment: Code(s): H33.20 - Serous retinal detachment, unspecified eye Status: Acute Assessment and Plan: patient has written all detachment, and cataracts continue home eye drops (9) Pleural effusion: Code(s): J90 - Pleural effusion, not elsewhere classified Status: Acute Assessment and Plan: stable from earlier this month (10) Failure to thrive: Status: Acute Assessment and Plan: PT OT evaluate and treat if patient does not tolerate diet due to nausea she may need PPN Quality VTE Prophylaxis VTE prophylaxis: mechanical ordered and pharmacologic ordered Hospitalist [facility] Advance Care Plan I have confirmed that the patient's Advanced Care Plan is present, code status is documented, or surrogate decision maker is listed in patient medical record.: Yes Medication Reconciliation I have utilized all available resources to obtain, update and review the patients current medications (includes all prescriptions, OTC, herbals, cannabis, and nutritional supplements).: Yes
[2024-09-07] MEDS: ACETAMINOPHEN 325 MG TABLET 650 MG PO (09:27)
[2024-09-07] MEDS: COLCHICINE 0.6 MG TABLET PO ×2 (09:50→20:41)
[2024-09-07] MEDS: APIXABAN 2.5 MG TABLET PO ×2 (09:50→20:41)
[2024-09-07] MEDS: amLODIPine BESYLATE 5 MG TABLET PO (09:50)
[2024-09-07] MEDS: METOPROLOL SUCCINATE EXT REL 100 MG TABCR PO (09:50)
[2024-09-07] MEDS: ROSUVASTATIN 5 MG TABLET PO (09:50)
[2024-09-07] MEDS: BRIMONIDINE TARTRATE 0.2% OP SOLN 5 ML BTL 1 DROP EACH EYE ×2 (09:51→20:44)
[2024-09-07] MEDS: ARTIFICIAL TEARS OPHTH SOLN 15 ML BOTTLE 1 DROP RIGHT EYE ×2 (09:51→20:44)
[2024-09-07] MEDS: TIMOLOL MALEATE 0.5% OP SOLN 5 ML BOTTLE 1 DROP EACH EYE ×2 (09:51→20:44)
[2024-09-07] MEDS: DORZOLAMIDE HCL 2% OPHTH DROPS 1 DROP RIGHT EYE ×2 (09:51→20:44)
[2024-09-07] MEDS: SUCRALFATE SUSP 100 MG/ML 10 ML UDC 1000 MG PO ×3 (11:43→20:42)
[2024-09-07 11:49] LABS: Glucose Point of Care 147 mg/dl (65-105)
[2024-09-07] MEDS: hydrALAZINE HCL 50 MG TABLET PO ×2 (12:07→20:49)
[2024-09-07] MEDS: SODIUM BICARBONATE TAB 650 MG TABLET PO ×2 (12:07→17:22)
[2024-09-07] MEDS: SODIUM CHLORIDE 0.9% IV 1,000 ML 125 ML IV CONT ×2 (15:15→23:30)
[2024-09-07] MEDS: POLYSACCHARIDE IRON COMPLEX 150 MG CAPSULE PO (17:22)
[2024-09-07 17:47] LABS: Glucose Point of Care 136 mg/dl (65-105)
[2024-09-07 23:43] LABS: Glucose Point of Care 110 mg/dl (65-105)
[2024-09-08 03:25] VITALS: BP 169/80; PULSE 77; RESP 16; TEMP 36.2; O2SAT 98
[2024-09-08] MEDS: hydrALAZINE HCL 50 MG TABLET PO ×3 (05:19→22:24)
[2024-09-08] MEDS: SUCRALFATE SUSP 100 MG/ML 10 ML UDC 1000 MG PO ×4 (05:24→21:47)
[2024-09-08 05:44] LABS: Glucose Point of Care 83 mg/dl (65-105)
[2024-09-08 07:14] LABS: Anion Gap 8 mmol/L (4-12); Basophils Percent Auto 0.6 % (0.2-1.2); Blood Urea Nitrogen 41 mg/dL (7-17); Calcium 7.2 mg/dL (8.4-10.2); Carbon Dioxide 15 mmol/L (22-30); Chloride 116 mmol/L (98-107); Estimated CRCL calculation 20 ml/min; Estimated Glomerular Filt Rate 15; Glucose 87 mg/dL (65-110); Hematocrit 26.7 % (37.0-47.0); Hemoglobin 8.2 g/dL (12.0-15.0); Immature Granulocyte Absolute 0.02 K/mm3 (0.00-0.031); Immature Granulocyte Percent A 0.6 % (0-0.5); Lymphocytes Percent Auto 26.8 % (18.3-44.2); Mean Corpuscular HGB Conc 30.7 g/dl (32-36); Mean Corpuscular Hemoglobin 27.3 pg (26-34); Mean Platelet Volume 12.1 fl (7.4-10.4); Monocytes Absolute Auto 0.3 K/mm3 (0.1-0.6); Monocytes Percent Auto 9.5 % (2.6-8.5); Neutrophils Absolute Auto 2.1 K/mm3 (1.3-6.7); Neutrophils Percent Auto 62.5 % (45.5-73.1); Platelet Count Result 109 k/mm3 (150-375); Potassium 3.6 mmol/L (3.4-5.0); Red Cell Distribution Width 14.9 % (11.5-14.5); Sodium 139 mmol/L (137-145); White Blood Count 3.4 K/mm3 (4.5-10.0)
[2024-09-08 07:27] LABS: Toxigenic C. Diff NEGATIVE (NEGATIVE)
--- NOTE | 2024-09-08 08:12 | P.PNIM_ITS ---
Progress Note: A&P Assessment and Plan (1) BUTCH (acute kidney injury): Code(s): N17.9 - Acute kidney failure, unspecified Status: Acute Assessment and Plan: on CKD stage 4 nephrology consulted continue sodium bicarb tabs hold nephrotoxic medications IV fluids for hydration patient appears to be dehydrated still 1 L bolus ordered (2) Enteritis: Code(s): K52.9 - Noninfective gastroenteritis and colitis, unspecified Status: Acute Assessment and Plan: improving with nausea and vomiting Carafate with meals Pepcid b.i.d. 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 Diabetes mellitus macular edema: without macular edema Diabetes mellitus type: type 2 Diabetic retinopathy severity: with unspecified retinopathy severity Laterality: right Qualified Code(s): E11.319 - Type 2 diabetes mellitus with unspecified diabetic retinopathy without macular edema Code(s): E11.9 - Type 2 diabetes mellitus without complications Status: Chronic Assessment and Plan: diabetic diet SSI (6) Anemia: Code(s): D64.9 - Anemia, unspecified Status: Acute Assessment and Plan: hemoglobin dropped overnight likely due to fluid resuscitation, stable with last months hemoglobin (7) Hypertension: Code(s): I10 - Essential (primary) hypertension Status: Chronic Assessment and Plan: continue home antihypertensives (8) Retinal detachment: Code(s): H33.20 - Serous retinal detachment, unspecified eye Status: Acute Assessment and Plan: patient has right eye detachment, and cataracts continue home eye drops (9) Pleural effusion: Code(s): J90 - Pleural effusion, not elsewhere classified Status: Acute Assessment and Plan: stable from earlier this month no SOB (10) Failure to thrive: Status: Acute Assessment and Plan: PT OT evaluate and treat Time Spent With Patient Time with patient: Greater than 35 minutes Subjective Date/time seen: 09/08/24 08:12 Interval history: 63-year-old female with CKD creatinine baseline 3.[address] 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 C diff test negative started Imodium, drop in hemoglobin likely delusional due to fluid resuscitation, patient states that she is feeling better however she did have a episode of orthostatic hypotension today, will continue with fluids and diet Review of Systems Review of Systems: 12 systems were reviewed and are negative except for as per HPI. Exam Narrative: General: well appearing, appears older than stated age. HEENT: normocephalic, atraumatic. Mucous membranes moist. EOMI, PERRLA, bilateral sclera anicteric, no conjunctival injection. Neck supple without JVD, lymphadenopathy, or bruit. Respiratory: clear to ascultation bilaterally. No rales/rhonic/wheezes. Cardiovascular: Regular rate and rhythm, normal S1-S2 upon ascultation. No murmurs, rubs, or clicks. PMI is nondisplaced, capillary refill less than 3 second. Abdomen: Soft, round, no pulsatile masses, nondistended and nontender. No rebound, no guarding. No CVA tenderness, no hepatosplenomegaly. Bowel sounds present to all four quadrants. No high pitch or tinkling sounds, resonant to percussion. Extremities: No cyanosis, clubbing, or edema present. Pulses are palpable 2/2. Active ROM to all four extremities. Neuro: Alert and orientated x 4. PERRLA. Cranial nerves 2-12 intact without focal deficit. Skin: Warm, dry, and intact, without rash, erythema, or lesion. Psych: pleasant, cooperative, normal speech, normal affect, no hallucinations, no dysarthia Objective Data Vital Signs Vital Signs: Vital Signs - 24 hr 09/07/24 08:48 09/07/24 09:50 09/07/24 12:00 Temperature 97.7 F Pulse Rate 79 84 Respiratory Rate 18 Blood Pressure 167/83 H Pulse Oximetry 100 98 Oxygen Delivery Room Air 09/07/24 16:00 09/07/24 16:00 09/07/24 20:00 Temperature 97.2 F L 97.4 F L Pulse Rate 82 82 Respiratory Rate 18 18 Blood Pressure 154/73 H 170/79 H Pulse Oximetry 98 99 Oxygen Delivery Room Air 09/07/24 23:45 09/08/24 03:25 Temperature 97.4 F L 97.2 F L Pulse Rate 91 77 Respiratory Rate 16 16 Blood Pressure 166/75 H 169/80 H Pulse Oximetry 99 98 Oxygen Delivery Intake/Output Intake/Output: Intake & Output 09/05/24 09/06/24 09/07/24 09/08/24 23:59 23:59 23:59 23:59 Intake Total 3713 Output Total 0 Balance 3713 0 Meds/Results Medications: Active Medications Generic Name Dose Route Start Last Admin Trade Name Freq PRN Reason Stop Dose Admin Acetaminophen 650 mg 09/07/24 08:19 09/07/24 09:27 Acetaminophen 325 Mg Tablet PO 650 mg Q4H PRN Administration Mild Pain (1-3) or Fever Hydrocodone Bitart/Acetaminophen 1 tab 09/07/24 08:19 Hydrocodone/Acetaminophen (*Crx) 5-325 Mg Tablet PO Q4H PRN Moderate Pain (4-6) Amlodipine Besylate 5 mg 09/07/24 09:00 09/07/24 09:50 Amlodipine Besylate 5 Mg Tablet PO 5 mg QAM NAHOMI Administration Apixaban 2.5 mg 09/07/24 09:30 09/07/24 20:41 Apixaban 2.5 Mg Tablet PO 2.5 mg Q12HR NAHOMI Administration Artificial Tears 1 drop 09/07/24 09:35 09/07/24 20:44 Artificial Tears Ophth Soln 15 Ml Bottle RIGHT EYE 1 drop Q12HR NAHOMI Administration Brimonidine Tartrate 1 drop 09/07/24 09:30 09/07/24 20:44 Brimonidine Tartrate 0.2% Op Soln 5 Ml Btl EACH EYE 1 drop Q12HR NAHOMI Administration Colchicine 0.6 mg 09/07/24 09:30 09/07/24 20:41 Colchicine 0.6 Mg Tablet PO 0.6 mg Q12HR NAHOMI Administration Dextrose 12.5 gm 09/07/24 09:15 Dextrose 50% 25 Gm/50 Ml Syringe IV PUSH PRN PRN Hypoglycemia Protocol Dorzolamide HCl 1 drop 09/07/24 09:30 09/07/24 20:44 Dorzolamide Hcl 2% Ophth Drops RIGHT EYE 1 drop Q12HR NAHOMI Administration Famotidine 20 mg 09/07/24 21:00 09/07/24 20:42 Famotidine 20 Mg/2 Ml Vial IV PUSH 20 mg Q12HR NAHOMI Administration Glucagon 1 mg 09/07/24 09:15 Glucagon For Inj 1 Mg Vial IM PRN PRN Hypoglycemia Protocol Glucose 15 gm 09/07/24 09:15 Glucose Oral Gel 15 Gm Of Glucse In 37.5 Gm Tube PO PRN PRN Hypoglycemia Protocol Hydralazine HCl 50 mg 09/07/24 13:00 09/08/24 05:19 Hydralazine Hcl 50 Mg Tablet PO 50 mg Q8HR NAHOMI Administration Sodium Chloride 1,000 mls @ 125 mls/hr 09/07/24 09:15 09/07/24 23:30 Normal Saline Iv IV CONT 125 mls/hr .Q8H NAHOMI Administration Dextrose 1,000 mls @ 100 mls/hr 09/07/24 09:15 Dextrose 5% 1,000 Ml IVPB PRN PRN Hypoglycemia Protocol Insulin Aspart 2 - 5 units 09/07/24 12:00 09/08/24 05:24 Insulin Aspart (*Bkc) 100 Units/Ml SUB-Q Not Given Q6HR [facility] Protocol Magnesium Hydroxide 30 ml 09/07/24 08:19 Magnesium Hydroxide Susp 30 Ml Udc PO DAILY PRN Constipation Metoprolol Succinate 100 mg 09/07/24 09:00 09/07/24 09:50 Metoprolol Succinate Ext Rel 100 Mg Tabcr PO 100 mg QAM [facility] Administration Morphine Sulfate 2 mg 09/07/24 08:19 Morphine Sulfate (*Crx) 2 Mg/Ml Inj IV PUSH Q4H PRN Pain Rated 7-10 Naloxone HCl 0.1 mg 09/07/24 08:19 Naloxone Hcl 0.4 Mg/Ml Vial IV PUSH Q2M PRN Opiate Reversal Ondansetron HCl 4 mg 09/07/24 09:15 09/07/24 09:25 Ondansetron Inj 4 Mg/2 Ml Vial IV PUSH 4 mg Q6H PRN Administration Nausea And Vomiting Polysaccharide Iron Complex 150 mg 09/07/24 17:00 09/07/24 17:22 Polysaccharide Iron Complex 150 Mg Capsule PO 150 mg BIDWM NAHOMI Administration Rosuvastatin Calcium 5 mg 09/07/24 09:00 09/07/24 09:50 Rosuvastatin 5 Mg Tablet PO 5 mg QAM NAHOMI Administration Sodium Bicarbonate 650 mg 09/07/24 13:00 09/07/24 17:22 Sodium Bicarbonate Tab 650 Mg Tablet PO 650 mg TID NAHOMI Administration Sucralfate 1,000 mg 09/07/24 11:30 09/08/24 05:24 Sucralfate Susp 100 Mg/Ml 10 Ml Udc PO 1,000 mg ACHS NAHOMI Administration Timolol Maleate 1 drop 09/07/24 09:35 09/07/24 20:44 Timolol Maleate 0.5% Op Soln 5 Ml Bottle EACH EYE 1 drop Q12HR NAHOMI Administration Radiology Results: ITS Impressions Abdomen/Pelvis CT 09/07/24 05:37 Impression: Minimal bilateral pleural effusions. Horseshoe kidney. Chest X-Ray 09/07/24 06:11 Impression: Linear scarring or atelectasis at the lung bases, otherwise clear lungs. Labs Labs: Laboratory Results - last 24 hr 09/07/24 09/07/24 09/07/24 11:46 17:44 23:35 WBC RBC Hgb Hct MCV MCH MCHC RDW Plt Count MPV Immature Gran % (Auto) Neut % (Auto) Lymph % (Auto) [place] % (Auto) Eos % (Auto) Baso % (Auto) Lymph # (Auto) [place] # (Auto) Eos # (Auto) Baso # (Auto) Abs Immat Gran (auto) Absolute Neuts (auto) Absolute Nucleated RBC Nucleated RBC % Sodium Potassium Chloride Carbon Dioxide Anion Gap BUN Creatinine Estim Creat Clear Calc Estimated GFR Glucose POC Capillary Glucose 147 H 136 H 110 H Calcium C. difficile (PCR) 09/08/24 09/08/24 09/08/24 05:21 05:40 06:31 WBC 3.4 L RBC 3.00 L Hgb 8.2 L Hct 26.7 L MCV 89.0 MCH 27.3 MCHC 30.7 L RDW 14.9 H Plt Count 109 L MPV 12.1 H Immature Gran % (Auto) 0.6 H Neut % (Auto) 62.5 Lymph % (Auto) 26.8 [place] % (Auto) 9.5 H Eos % (Auto) 0.0 Baso % (Auto) 0.6 Lymph # (Auto) 0.90 [place] # (Auto) 0.3 Eos # (Auto) 0.0 Baso # (Auto) 0.0 Abs Immat Gran (auto) 0.02 Absolute Neuts (auto) 2.1 Absolute Nucleated RBC 0.000 Nucleated RBC % 0.0 Sodium 139 Potassium 3.6 Chloride 116 H Carbon Dioxide 15 L Anion Gap 8 BUN 41 H D Creatinine 3.13 H Estim Creat Clear Calc 20 Estimated GFR 15 L Glucose 87 POC Capillary Glucose 83 Calcium 7.2 L C. difficile (PCR) Negative Quality VTE Prophylaxis VTE prophylaxis: mechanical ordered and pharmacologic ordered
[2024-09-08] MEDS: amLODIPine BESYLATE 5 MG TABLET PO (08:58)
[2024-09-08] MEDS: METOPROLOL SUCCINATE EXT REL 100 MG TABCR PO (08:58)
[2024-09-08] MEDS: POLYSACCHARIDE IRON COMPLEX 150 MG CAPSULE PO ×2 (08:58→17:36)
[2024-09-08] MEDS: COLCHICINE 0.6 MG TABLET PO ×2 (08:58→21:52)
[2024-09-08] MEDS: SODIUM BICARBONATE TAB 650 MG TABLET PO ×3 (08:58→17:36)
[2024-09-08] MEDS: FAMOTIDINE 20 MG/2 ML VIAL IV PUSH ×2 (08:59→21:41)
[2024-09-08] MEDS: APIXABAN 2.5 MG TABLET PO ×2 (08:59→21:52)
[2024-09-08] MEDS: ROSUVASTATIN 5 MG TABLET PO (08:59)
[2024-09-08] MEDS: ARTIFICIAL TEARS OPHTH SOLN 15 ML BOTTLE 1 DROP RIGHT EYE ×2 (09:00→21:54)
[2024-09-08] MEDS: TIMOLOL MALEATE 0.5% OP SOLN 5 ML BOTTLE 1 DROP EACH EYE ×2 (09:00→21:57)
[2024-09-08] MEDS: BRIMONIDINE TARTRATE 0.2% OP SOLN 5 ML BTL 1 DROP EACH EYE ×2 (09:04→21:54)
[2024-09-08] MEDS: CALCIUM GLUC 2,000 MG/NS 100ML 2,000 MG/100 ML BAG 100 MG IVPB (09:11)
[2024-09-08] MEDS: LOPERAMIDE HCL 2 MG CAPSULE 4 MG PO (09:11)
[2024-09-08] MEDS: DORZOLAMIDE HCL 2% OPHTH DROPS 1 DROP RIGHT EYE ×2 (09:11→21:54)
[2024-09-08] MEDS: SODIUM CHLORIDE 0.9% IV 1,000 ML 125 ML IV CONT ×2 (09:12→17:38)
--- NOTE | 2024-09-08 09:37 | PCDIET ---
Consult for PPN: Discussed with provider. Pt eating better, 20-90% last 48 hours, and nausea is now intermittent. Pt with stage 4 kidney failure. PPN not indicated at this time. Meds for nausea and diarrhea PRN and encourage PO intake as tolerated. Thank you for this consult.
--- NOTE | 2024-09-08 09:54 | P.CONNP_ITS ---
Assessment and Plan Assessment and plan (1) BUTCH (acute kidney injury): Code(s): N17.9 - Acute kidney failure, unspecified Status: Acute Assessment and Plan: * acute kidney injury secondary to volume depletion * chronic kidney disease stage 4 underlying * Diabetic renal disease type 2 * hypertensive renal disease * History of metabolic acidosis on sodium bicarbonate therapy. this is exacerbated by the diarrhea but has baseline metabolic acidosis secondary to renal failure. * anemia chronic kidney disease * pancytopenia Plan Plan: - maintain hydration, continue sodium bicarbonate, avoid nonsteroidals - monitor labs - discussed with the patient History of Present Illness Reason for Consult Consult date: 09/08/24 Reason for consult: chronic renal failure Chief Complaint Chief complaint: BUTCH, Failure to thrive History of Present Illness Narrative: Seen ands examined 09/08/2024 This is a delayed entry 63-year-old female known to us from the office. He has underlying problems of diabetes mellitus and hypertension. She has chronic kidney disease stage 4. Has had history of bilateral lower extremity swelling. She does use diuretics on an outpatient basis. She has been admitted now twice over the last few weeks, nausea vomiting and diarrhea and dehydration with worsened renal function. She is globally weak not able to do much and appears depressed. We asked to see her for ongoing renal failure needs. She has been admitted with the dehydration and for IV fluids. She was thought to have gastroenteritis. She has acute worsening of the renal function. She has been making urine. Undergoing a very good history. not clear if she took the ibuprofen she was recently given. Review of Systems 2 Review of Systems: Denies any fevers or chills. No nonsteroidal use. This has had lower extremity swelling in the past currently better. She has had problems with shortness of breath. Negative other systemic issues. [facility] Past Medical History Medical History Diabetes mellitus Chronic renal disease Anxiety Surgical History Surgical History History of appendectomy Family History Family History (Updated 09/07/24 @ 07:39 by Donald Fitzpatrick RN) Father Hypertension Diabetes mellitus Lymphoma Grandparent Diabetes mellitus Grandparent Diabetes mellitus Mother Pacemaker Social History Social History Smoking status: Former smoker Tobacco type: cigarettes Alcohol intake: former Substance use: former Substance use type: does not use Do You Feel Safe in your Home?: Yes Lack of Transportation: No Lack of Food: Never True Current Housing: I Have Housing Concerned About Future Housing: No Difficulty Paying Gas/Electric Bills: No Difficulty Paying for Meds: No Currently Unemployed: No Education: High School Diploma/GED Difficulty w/ Childcare or Family Care: No Spiritual care concerns: No Meds Home Medications and Allergies Home Medications ?Medication ?Instructions ?Recorded ?Confirmed ?Type amlodipine 5 mg tablet 5 mg PO QAM 08/22/24 09/07/24 History brimonidine 0.2 % eye drops 1 drp EACH EYE BID 08/22/24 09/07/24 History cholecalciferol (vitamin D3) 50 50 mcg PO QAM 08/22/24 09/07/24 History mcg (2,000 unit) tablet (D3 DOTS) dorzolamide 2 % eye drops 1 drp RIGHT EYE BID 08/22/24 09/07/24 History ferrous sulfate 325 mg (65 mg 325 mg PO QAM 08/22/24 09/07/24 History iron) tablet (FeroSul) hydralazine 50 mg tablet 50 mg PO TID 08/22/24 09/07/24 History metoprolol succinate 100 mg 100 mg PO QAM 08/22/24 09/07/24 History tablet,extended release 24 hr polyvinyl alcohol-povidone 0.5 1 drp RIGHT EYE BID 08/22/24 09/07/24 History %-0.6 % eye drops (Artificial Tears (polyvinyl alcohol/povidone)) rosuvastatin 5 mg tablet 5 mg PO QAM 08/22/24 09/07/24 History sodium bicarbonate 650 mg tablet 650 mg PO TID 08/22/24 09/07/24 History timolol maleate 0.5 % eye drops 1 drp EACH EYE BID 08/22/24 09/07/24 History apixaban 2.5 mg tablet (Eliquis) 2.5 mg PO BID #60 tabs 08/26/24 09/07/24 Rx blood-glucose meter,continuous #1 ea 08/26/24 Rx (Dexcom G6 Housekeeping Assistant) blood-glucose sensor (Dexcom G6 #3 ea 08/26/24 Rx Sensor device) blood-glucose transmitter (Dexcom #1 ea 08/26/24 Rx G6 Transmitter device) colchicine 0.6 mg tablet (Colcrys) 0.6 mg PO Q12HR #120 tabs 08/26/24 09/07/24 Rx ibuprofen 600 mg tablet 600 mg PO TID #30 tabs 08/26/24 09/07/24 Rx Allergies Allergy/AdvReac Type Severity Reaction Status Date / Time Penicillins Allergy Unknown Unknown Verified 09/07/24 06:30 coconut Allergy Hives Verified 09/07/24 06:30 Vital Signs Vital Signs - 24 hr 09/07/24 12:00 09/07/24 16:00 09/07/24 16:00 Temperature 36.5 C 36.2 C L Pulse Rate 84 82 Respiratory Rate 18 18 Blood Pressure 167/83 H 154/73 H Pulse Oximetry 98 98 Oxygen Delivery Room Air 09/07/24 20:00 09/07/24 23:45 09/08/24 03:25 Temperature 36.3 C L 36.3 C L 36.2 C L Pulse Rate 82 91 77 Respiratory Rate 18 16 16 Blood Pressure 170/79 H 166/75 H 169/80 H Pulse Oximetry 99 99 98 Oxygen Delivery Exam 2 HENMT: Head: normocephalic and atraumatic Face/Nose/Sinus: Normal external nose present Face and sinus: face asymmetric ( Slight ptosis noted of the right eyelid) and no edema Mouth: Yes moist mucous membranes abnormal ( dry) Eyes: Eyelids: eyelid abnormality Sclera: sclerae normal Cornea: corneas abnormal Neck: Neck: normal visual inspection and no lymphadenopathy Resp: Effort & Inspection: normal respiratory effort and able to speak in complete sentences Auscultation: clear to auscultation bilaterally, no crackles, no rales, no rhonchi and no wheezes Cardio: Jugular venous distension: no JVD Rate: regular rate Heart sounds: S1 normal heart sound present, S2 normal heart sound present and no rubs GI: Inspection: normal to inspection GI Palp: No abdominal tenderness and Yes Soft to palpation Skin: General skin exam: no rashes or lesions noted and turgor normal R ashes: no rashes Neuro: General: other ( flat affect, moves extremities, not communicating much) Extrem: General: normal to inspection, no clubbing and no cyanosis Psych: Appearance: other ( flatter affect, communicating little) Results Lab Results 09/09/24 06:25 09/09/24 06:25 Lab results: Most recent lab results Calcium 7.2 mg/dL (8.4-10.2) L 09/08/24 06:31 Calcium Cancelled 09/08/24 06:31 Magnesium 1.7 mg/dL (1.6-2.3) 09/07/24 01:31
[2024-09-08 11:45] VITALS: BP 153/76; PULSE 78; RESP 18; TEMP 36.7; O2SAT 100
[2024-09-08 12:09] LABS: Glucose Point of Care 129 mg/dl (65-105)
[2024-09-08] MEDS: ACETAMINOPHEN 325 MG TABLET 650 MG PO (16:14)
[2024-09-08 17:55] LABS: Alanine Aminotransferase 63 U/L (6-35); Albumin Level 2.4 g/dL (3.5-5.1); Alkaline Phosphatase 119 U/L (38-126); Aspartate Amino Transferase 103 U/L (14-36); Bilirubin,Total 0.4 mg/dL (0.2-1.3); Magnesium 1.6 mg/dL (1.6-2.3)
[2024-09-08 18:41] LABS: Glucose Point of Care 160 mg/dl (65-105)
[2024-09-08 20:00] VITALS: BP 168/75; PULSE 84; RESP 18; TEMP 36.7; O2SAT 99
[2024-09-09] VITALS (9 sets, daily range): BP systolic 146–172; BP diastolic 75–85; PULSE 57–86; RESP 14–20; TEMP 36.2–36.9; O2SAT 99–100
[2024-09-09 00:02] LABS: Glucose Point of Care 114 mg/dl (65-105)
[2024-09-09 05:33] LABS: Glucose Point of Care 97 mg/dl (65-105)
[2024-09-09] MEDS: hydrALAZINE HCL 50 MG TABLET PO ×3 (05:55→20:58)
[2024-09-09] MEDS: SUCRALFATE SUSP 100 MG/ML 10 ML UDC 1000 MG PO ×3 (05:55→20:58)
[2024-09-09] MEDS: SODIUM CHLORIDE 0.9% IV 1,000 ML 125 ML IV CONT ×3 (05:58→17:58)
[2024-09-09 07:14] LABS: Alanine Aminotransferase 55 U/L (6-35); Albumin Level 2.3 g/dL (3.5-5.1); Alkaline Phosphatase 114 U/L (38-126); Anion Gap 5 mmol/L (4-12); Aspartate Amino Transferase 82 U/L (14-36); Bilirubin,Total 0.6 mg/dL (0.2-1.3); Blood Urea Nitrogen 39 mg/dL (7-17); Calcium 7.2 mg/dL (8.4-10.2); Carbon Dioxide 15 mmol/L (22-30); Chloride 117 mmol/L (98-107); Estimated CRCL calculation 24 ml/min; Estimated Glomerular Filt Rate 18; Glucose 98 mg/dL (65-110); Magnesium 1.4 mg/dL (1.6-2.3); Potassium 3.6 mmol/L (3.4-5.0); Sodium 137 mmol/L (137-145)
[2024-09-09 07:58] LABS: Basophils Percent Auto 0.6 % (0.2-1.2); Hematocrit 25.1 % (37.0-47.0); Hemoglobin 7.8 g/dL (12.0-15.0); Immature Granulocyte Absolute 0.03 K/mm3 (0.00-0.031); Lymphocytes Absolute Auto 0.91 K/mm3 (0.9-3.2); Lymphocytes Percent Auto 29.5 % (18.3-44.2); Mean Corpuscular HGB Conc 31.1 g/dl (32-36); Mean Corpuscular Hemoglobin 27.5 pg (26-34); Mean Corpuscular Volume 88.4 fl (80-100); Monocytes Absolute Auto 0.3 K/mm3 (0.1-0.6); Monocytes Percent Auto 9.4 % (2.6-8.5); Neutrophils Absolute Auto 1.8 K/mm3 (1.3-6.7); Neutrophils Percent Auto 59.5 % (45.5-73.1); Platelet Count Result 101 k/mm3 (150-375); Red Blood Count 2.84 M/mm3 (4.2-5.4); Red Cell Distribution Width 14.8 % (11.5-14.5); White Blood Count 3.1 K/mm3 (4.5-10.0)
[2024-09-09 08:34] LABS: Glucose Point of Care 101 mg/dl (65-105)
[2024-09-09] MEDS: ACETAMINOPHEN 325 MG TABLET 650 MG PO (09:29)
[2024-09-09] MEDS: SODIUM BICARBONATE TAB 650 MG TABLET PO ×2 (09:38→12:47)
[2024-09-09] MEDS: COLCHICINE 0.6 MG TABLET PO ×2 (09:38→20:58)
[2024-09-09] MEDS: METOPROLOL SUCCINATE EXT REL 100 MG TABCR PO (09:38)
[2024-09-09] MEDS: POLYSACCHARIDE IRON COMPLEX 150 MG CAPSULE PO ×2 (09:38→17:51)
[2024-09-09] MEDS: APIXABAN 2.5 MG TABLET PO ×2 (09:38→20:58)
[2024-09-09] MEDS: BRIMONIDINE TARTRATE 0.2% OP SOLN 5 ML BTL 1 DROP EACH EYE ×2 (09:39→20:59)
[2024-09-09] MEDS: amLODIPine BESYLATE 5 MG TABLET PO (09:39)
[2024-09-09] MEDS: ROSUVASTATIN 5 MG TABLET PO (09:39)
[2024-09-09] MEDS: TIMOLOL MALEATE 0.5% OP SOLN 5 ML BOTTLE 1 DROP EACH EYE ×2 (09:40→21:02)
[2024-09-09] MEDS: DORZOLAMIDE HCL 2% OPHTH DROPS 1 DROP RIGHT EYE ×2 (09:41→20:59)
[2024-09-09] MEDS: ARTIFICIAL TEARS OPHTH SOLN 15 ML BOTTLE 1 DROP RIGHT EYE ×2 (09:41→20:59)
[2024-09-09] MEDS: ONDANSETRON INJ 4 MG/2 ML VIAL IV PUSH ×2 (10:58→16:40)
[2024-09-09] MEDS: FAMOTIDINE 20 MG/2 ML VIAL IV PUSH ×2 (10:58→20:59)
[2024-09-09 12:22] LABS: Glucose Point of Care 101 mg/dl (65-105)
--- NOTE | 2024-09-09 13:09 | P.PNIM_ITS ---
Progress Note: A&P Assessment and Plan (1) BUTCH (acute kidney injury): Code(s): N17.9 - Acute kidney failure, unspecified Status: Acute Assessment and Plan: on CKD stage 4 nephrology consulted continue sodium bicarb tabs hold nephrotoxic medications IV fluids for hydration patient appears to be dehydrated still 1 L bolus ordered 09/09/24: * Interval improvement in Cr to baseline of 2.63. * Awaiting Nephrology evaluation. * Pt continues to receive IVF. (2) Enteritis: Code(s): K52.9 - Noninfective gastroenteritis and colitis, unspecified Status: Acute Assessment and Plan: improving with nausea and vomiting Carafate with meals Pepcid b.i.d. IV fluids for hydration advance diet as tolerated 09/09/24: * Pt is tolerating diet at this time. * Continue meds of Carafate, Pepcid. (3) Atrial fibrillation: Code(s): I48.91 - Unspecified atrial fibrillation Status: Acute Assessment and Plan: continue Eliquis and Crestor 09/09/24: * Not orthostatic. * Continue current anticoagulant (4) Diarrhea: Code(s): R19.7 - Diarrhea, unspecified Status: Acute Assessment and Plan: improving C diff test negative added Imodium 09/09/24: * No further Diarrhea, but pt appears that she does not feel well overall. (5) Diabetes mellitus: Qualifiers: Diabetes mellitus complication detail: with diabetic retinopathy Diabetes mellitus complication status: with ophthalmic complications Diabetes mellitus intermodal customer service insulin use: without intermodal customer service use Diabetes mellitus macular edema: without macular edema Diabetes mellitus type: type 2 Diabetic retinopathy severity: with unspecified retinopathy severity Laterality: right Qualified Code(s): E11.319 - Type 2 diabetes mellitus with unspecified diabetic retinopathy without macular edema Code(s): E11.9 - Type 2 diabetes mellitus without complications Status: Chronic Assessment and Plan: diabetic diet SSI 09/09/24: * Continue hypoglycemic protocol * Continue SSI * Continue Diabetic diet * HgbA1C is 5.3. (6) Anemia: Code(s): D64.9 - Anemia, unspecified Status: Acute Assessment and Plan: hemoglobin dropped overnight likely due to fluid resuscitation, stable with last months hemoglobin 09/09/24: * Hgb stable, but slightly lower as compared to the day before yet. * H&H is 7.8/25.1 * Continue to trend. * When compared to Hgb from one month ago it is similar. * Anemia likely due to degree of renal disease. (7) Hypertension: Code(s): I10 - Essential (primary) hypertension Status: Chronic Assessment and Plan: continue home antihypertensives 09/09/24: * Stable with current regimen. (8) Retinal detachment: Code(s): H33.20 - Serous retinal detachment, unspecified eye Status: Chronic Assessment and Plan: patient has right eye detachment, and cataracts continue home eye drops (9) Pleural effusion: Code(s): J90 - Pleural effusion, not elsewhere classified Status: Chronic Assessment and Plan: stable from earlier this month no SOB 09/09/24: * Continues to be asymptomatic. (10) Failure to thrive: Status: Acute Assessment and Plan: PT OT evaluate and treat 09/09/24: * No s/s of overt malnutrition present. Time Spent With Patient Time with patient: 15 - 25 minutes Subjective Date/time seen: 09/09/24 1000 Interval history: This 63 year old female was examined at the bedside today after being admitted to the hospital yesterday and BUTCH. She does have a baseline renal disease and she sees Dr. Shook as an outpatient for this. Upon arrival to the hospital her Cr was 4.21. This is above her baseline of 2.5-3.2 as previously noted, but it also appears to be an acutely new rise in baseline renal that started in 2021. We are awaiting Nephrology to see her. She continues to complain today of some abdominal pain and nausea. She has not had any diarrhea or further GI complaints. Review of Systems Review of Systems: All systems reviewed & are unremarkable except as noted in HPI and below Exam Narrative: General: well appearing, appears older than stated age. HEENT: normocephalic, atraumatic. Mucous membranes moist. EOMI, PERRLA, bilateral sclera anicteric, no conjunctival injection. Neck supple without JVD, lymphadenopathy, or bruit. Respiratory: clear to ascultation bilaterally. No rales/rhonic/wheezes. Cardiovascular: Regular rate and rhythm, normal S1-S2 upon ascultation. No murmurs, rubs, or clicks. PMI is nondisplaced, capillary refill less than 3 second. Abdomen: Soft, round, no pulsatile masses, nondistended and nontender. No rebound, no guarding. No CVA tenderness, no hepatosplenomegaly. Bowel sounds present to all four quadrants. No high pitch or tinkling sounds, resonant to percussion. Extremities: No cyanosis, clubbing, or edema present. Pulses are palpable 2/2. Active ROM to all four extremities. Neuro: Alert and orientated x 4. PERRLA. Cranial nerves 2-12 intact without focal deficit. Skin: Warm, dry, and intact, without rash, erythema, or lesion. Psych: pleasant, cooperative, normal speech, normal affect, no hallucinations, no dysarthia Objective Data Vital Signs Vital Signs: Vital Signs - 24 hr 09/08/24 20:00 09/09/24 00:00 09/09/24 04:00 Temperature 98.1 F 97.5 F L 97.1 F L Pulse Rate 84 57 L 86 Respiratory Rate 18 14 14 Blood Pressure 168/75 H 166/75 H 164/82 H Pulse Oximetry 99 100 100 Intake/Output Intake/Output: Intake & Output 09/06/24 09/07/24 09/08/24 09/09/24 23:59 23:59 23:59 23:59 Intake Total 3713 3270 2061.7 Output Total 0 Balance 3713 3270 2061.7 Meds/Results Medications: Active Medications Generic Name Dose Route Start Last Admin Trade Name Freq PRN Reason Stop Dose Admin Acetaminophen 650 mg 09/07/24 08:19 09/09/24 09:29 Acetaminophen 325 Mg Tablet PO 650 mg Q4H PRN Administration Mild Pain (1-3) or Fever Hydrocodone Bitart/Acetaminophen 1 tab 09/07/24 08:19 Hydrocodone/Acetaminophen (*Crx) 5-325 Mg Tablet PO Q4H PRN Moderate Pain (4-6) Amlodipine Besylate 5 mg 09/07/24 09:00 09/09/24 09:39 Amlodipine Besylate 5 Mg Tablet PO 5 mg QAM [facility] Administration Apixaban 2.5 mg 09/07/24 09:30 09/09/24 09:38 Apixaban 2.5 Mg Tablet PO 2.5 mg Q12HR [facility] Administration Artificial Tears 1 drop 09/07/24 09:35 09/09/24 09:41 Artificial Tears Ophth Soln 15 Ml Bottle RIGHT EYE 1 drop Q12HR [facility] Administration Brimonidine Tartrate 1 drop 09/07/24 09:30 09/09/24 09:39 Brimonidine Tartrate 0.2% Op Soln 5 Ml Btl EACH EYE 1 drop Q12HR [facility] Administration Colchicine 0.6 mg 09/07/24 09:30 09/09/24 09:38 Colchicine 0.6 Mg Tablet PO 0.6 mg Q12HR [facility] Administration Dextrose 12.5 gm 09/07/24 09:15 Dextrose 50% 25 Gm/50 Ml Syringe IV PUSH PRN PRN Hypoglycemia Protocol Dorzolamide HCl 1 drop 09/07/24 09:30 09/09/24 09:41 Dorzolamide Hcl 2% Ophth Drops RIGHT EYE 1 drop Q12HR [facility] Administration Famotidine 20 mg 09/07/24 21:00 09/09/24 10:58 Famotidine 20 Mg/2 Ml Vial IV PUSH 20 mg Q12HR [facility] Administration Glucagon 1 mg 09/07/24 09:15 Glucagon For Inj 1 Mg Vial IM PRN PRN Hypoglycemia Protocol Glucose 15 gm 09/07/24 09:15 Glucose Oral Gel 15 Gm Of Glucse In 37.5 Gm Tube PO PRN PRN Hypoglycemia Protocol Hydralazine HCl 50 mg 09/07/24 13:00 09/09/24 12:50 Hydralazine Hcl 50 Mg Tablet PO 50 mg Q8HR [facility] Administration Sodium Chloride 1,000 mls @ 125 mls/hr 09/07/24 09:15 09/09/24 09:30 Normal Saline Iv IV CONT 125 mls/hr .Q8H [facility] Administration Dextrose 1,000 mls @ 100 mls/hr 09/07/24 09:15 Dextrose 5% 1,000 Ml IVPB PRN PRN Hypoglycemia Protocol Insulin Aspart 2 - 5 units 09/07/24 12:00 09/09/24 12:30 Insulin Aspart (*Bkc) 100 Units/Ml SUB-Q Not Given Q6HR [facility] Protocol Loperamide HCl 2 mg 09/08/24 08:12 Loperamide Hcl 2 Mg Capsule PO Q6HR PRN Diarrhea Metoprolol Succinate 100 mg 09/07/24 09:00 09/09/24 09:38 Metoprolol Succinate Ext Rel 100 Mg Tabcr PO 100 mg QAM [facility] Administration Morphine Sulfate 2 mg 09/07/24 08:19 Morphine Sulfate (*Crx) 2 Mg/Ml Inj IV PUSH Q4H PRN Pain Rated 7-10 Naloxone HCl 0.1 mg 09/07/24 08:19 Naloxone Hcl 0.4 Mg/Ml Vial IV PUSH Q2M PRN Opiate Reversal Ondansetron HCl 4 mg 09/07/24 09:15 09/09/24 10:58 Ondansetron Inj 4 Mg/2 Ml Vial IV PUSH 4 mg Q6H PRN Administration Nausea And Vomiting Polysaccharide Iron Complex 150 mg 09/07/24 17:00 09/09/24 09:38 Polysaccharide Iron Complex 150 Mg Capsule PO 150 mg BIDWM [facility] Administration Rosuvastatin Calcium 5 mg 09/07/24 09:00 09/09/24 09:39 Rosuvastatin 5 Mg Tablet PO 5 mg QAM [facility] Administration Sodium Bicarbonate 650 mg 09/07/24 13:00 09/09/24 12:47 Sodium Bicarbonate Tab 650 Mg Tablet PO 650 mg TID [facility] Administration Sucralfate 1,000 mg 09/07/24 11:30 09/09/24 11:01 Sucralfate Susp 100 Mg/Ml 10 Ml Udc PO 1,000 mg ACHS [facility] Administration Timolol Maleate 1 drop 09/07/24 09:35 09/09/24 09:40 Timolol Maleate 0.5% Op Soln 5 Ml Bottle EACH EYE 1 drop Q12HR [facility] Administration Radiology Results: ITS Impressions Abdomen/Pelvis CT 09/07/24 05:37 Impression: Minimal bilateral pleural effusions. Horseshoe kidney. Chest X-Ray 09/07/24 06:11 Impression: Linear scarring or atelectasis at the lung bases, otherwise clear lungs. Labs Labs: Laboratory Results - last 24 hr 09/08/24 09/08/24 09/08/24 06:31 18:39 23:43 WBC RBC Hgb Hct MCV MCH MCHC RDW Plt Count MPV Immature Gran % (Auto) Neut % (Auto) Lymph % (Auto) [place] % (Auto) Eos % (Auto) Baso % (Auto) Lymph # (Auto) [place] # (Auto) Eos # (Auto) Baso # (Auto) Abs Immat Gran (auto) Absolute Neuts (auto) Absolute Nucleated RBC Nucleated RBC % Sodium Potassium Chloride Carbon Dioxide Anion Gap BUN Creatinine Estim Creat Clear Calc Estimated GFR Glucose POC Capillary Glucose 160 H 114 H Calcium Magnesium 1.6 Total Bilirubin 0.4 Direct Bilirubin 0.0 AST 103 H ALT 63 H Alkaline Phosphatase 119 Total Protein 6.0 L Albumin 2.4 L 09/09/24 09/09/24 09/09/24 05:31 06:25 08:08 WBC 3.1 L RBC 2.84 L Hgb 7.8 L Hct 25.1 L MCV 88.4 MCH 27.5 MCHC 31.1 L RDW 14.8 H Plt Count 101 L MPV 13.0 H Immature Gran % (Auto) 1.0 H Neut % (Auto) 59.5 Lymph % (Auto) 29.5 [place] % (Auto) 9.4 H Eos % (Auto) 0.0 Baso % (Auto) 0.6 Lymph # (Auto) 0.91 [place] # (Auto) 0.3 Eos # (Auto) 0.0 Baso # (Auto) 0.0 Abs Immat Gran (auto) 0.03 Absolute Neuts (auto) 1.8 Absolute Nucleated RBC 0.000 Nucleated RBC % 0.0 Sodium 137 Potassium 3.6 Chloride 117 H Carbon Dioxide 15 L Anion Gap 5 BUN 39 H Creatinine 2.63 H Estim Creat Clear Calc 24 Estimated GFR 18 L Glucose 98 POC Capillary Glucose 97 101 Calcium 7.2 L Magnesium 1.4 L Total Bilirubin 0.6 Direct Bilirubin AST 82 H ALT 55 H Alkaline Phosphatase 114 Total Protein 5.0 L Albumin 2.3 L 09/09/24 12:03 WBC RBC Hgb Hct MCV MCH MCHC RDW Plt Count MPV Immature Gran % (Auto) Neut % (Auto) Lymph % (Auto) [place] % (Auto) Eos % (Auto) Baso % (Auto) Lymph # (Auto) [place] # (Auto) Eos # (Auto) Baso # (Auto) Abs Immat Gran (auto) Absolute Neuts (auto) Absolute Nucleated RBC Nucleated RBC % Sodium Potassium Chloride Carbon Dioxide Anion Gap BUN Creatinine Estim Creat Clear Calc Estimated GFR Glucose POC Capillary Glucose 101 Calcium Magnesium Total Bilirubin Direct Bilirubin AST ALT Alkaline Phosphatase Total Protein Albumin Quality VTE Prophylaxis VTE prophylaxis: pharmacologic ordered
--- NOTE | 2024-09-09 17:09 | P.PNNP_ITS ---
Progress Note: A&P Assessment and Plan (1) BUTCH (acute kidney injury): Code(s): N17.9 - Acute kidney failure, unspecified Status: Acute Assessment and Plan: * acute kidney injury secondary to volume depletion * chronic kidney disease stage 4 underlying * Diabetic renal disease type 2 * hypertensive renal disease * History of metabolic acidosis on sodium bicarbonate therapy. this is exacerbated by the diarrhea but has baseline metabolic acidosis secondary to renal failure. * anemia chronic kidney disease * pancytopenia * Positive antinuclear antibody recently 1:1289 homogenous pattern she plan: - need to rule out hemolysis - has pancytopenia, may be a viral origin - cause of diarrhea unclear - increase sodium bicarbonate dosing due to the profound metabolic acidotic picture. - check serological work up, had RBC in urine as well -she had diabetic retinopathy and underlying CKD is form DM, however with current findings and presenbtation, need to r/o de [place] glomerulonephritis (2) Chronic kidney disease, stage IV (severe): Code(s): N18.4 - Chronic kidney disease, stage 4 (severe) Status: Chronic Subjective Date/time seen: 09/09/24 17:09 Interval history: Follow-up renal failure Review of Systems Review of Systems: complains of abdominal discomfort. No nausea vomiting. Has not had a bowel movement since yesterday. Making urine. Exam Narrative: Elderly, ill-looking, not in any acute distress however, dry skin, dry oral mucosa, skin turgor was diminished, regular rate rhythm, JVD negative, no gallop, no rub, equal breath sounds, no rub obese, soft nontender abdomen, no masses felt, edema negative, alert, answering better than she did yesterday Objective Data Vital Signs Vital Signs: Vital Signs - 24 hr 09/08/24 20:00 09/09/24 00:00 09/09/24 04:00 Temperature 36.7 C 36.4 C L 36.2 C L Pulse Rate 84 57 L 86 Respiratory Rate 18 14 14 Blood Pressure 168/75 H 166/75 H 164/82 H Pulse Oximetry 99 100 100 09/09/24 08:00 09/09/24 12:00 Temperature 36.3 C L 36.4 C Pulse Rate 80 81 Respiratory Rate 20 20 Blood Pressure 168/80 H 172/85 H Pulse Oximetry 100 100 Intake/Output Intake/Output: Intake & Output 0109/07/24 09/08/24 09/09/24 23:59 23:59 23:59 23:59 Intake Total 3713 3270 2301.7 Output Total 0 Balance 3713 3270 2301.7 Meds/Results Medications: Active Medications Generic Name Dose Route Start Last Admin Trade Name Freq PRN Reason Stop Dose Admin Acetaminophen 650 mg 09/07/24 08:19 09/09/24 09:29 Acetaminophen 325 Mg Tablet PO 650 mg Q4H PRN Administration Mild Pain (1-3) or Fever Hydrocodone Bitart/Acetaminophen 1 tab 09/07/24 08:19 Hydrocodone/Acetaminophen (*Crx) 5-325 Mg Tablet PO Q4H PRN Moderate Pain (4-6) Amlodipine Besylate 5 mg 09/07/24 09:00 09/09/24 09:39 Amlodipine Besylate 5 Mg Tablet PO 5 mg QAM NA[facility]OMI Administration Apixaban 2.5 mg 09/07/24 09:30 09/09/24 09:38 Apixaban 2.5 Mg Tablet PO 2.5 mg Q12HR [facility]I Administration Artificial Tears 1 drop 09/07/24 09:35 09/09/24 09:41 Artificial Tears Ophth Soln 15 Ml Bottle RIGHT EYE 1 drop Q12HR [facility] Administration Brimonidine Tartrate 1 drop 09/07/24 09:30 09/09/24 09:39 Brimonidine Tartrate 0.2% Op Soln 5 Ml Btl EACH EYE 1 drop Q12HR [facility]I Administration Colchicine 0.6 mg 09/07/24 09:30 09/09/24 09:38 Colchicine 0.6 Mg Tablet PO 0.6 mg Q12HR [facility] Administration Dextrose 12.5 gm 09/07/24 09:15 Dextrose 50% 25 Gm/50 Ml Syringe IV PUSH PRN PRN Hypoglycemia Protocol Dorzolamide HCl 1 drop 09/07/24 09:30 09/09/24 09:41 Dorzolamide Hcl 2% Ophth Drops RIGHT EYE 1 drop Q12HR [facility]I Administration Famotidine 20 mg 09/07/24 21:00 09/09/24 10:58 Famotidine 20 Mg/2 Ml Vial IV PUSH 20 mg Q12HR [facility]I Administration Glucagon 1 mg 09/07/24 09:15 Glucagon For Inj 1 Mg Vial IM PRN PRN Hypoglycemia Protocol Glucose 15 gm 09/07/24 09:15 Glucose Oral Gel 15 Gm Of Glucse In 37.5 Gm Tube PO PRN PRN Hypoglycemia Protocol Hydralazine HCl 50 mg 09/07/24 13:00 09/09/24 12:50 Hydralazine Hcl 50 Mg Tablet PO 50 mg Q8HR [facility]I Administration Sodium Chloride 1,000 mls @ 125 mls/hr 09/07/24 09:15 09/09/24 09:30 Normal Saline Iv IV CONT 125 mls/hr .Q8H [facility] Administration Dextrose 1,000 mls @ 100 mls/hr 09/07/24 09:15 Dextrose 5% 1,000 Ml IVPB PRN PRN Hypoglycemia Protocol Insulin Aspart 2 - 5 units 09/07/24 12:00 09/09/24 12:30 Insulin Aspart (*Bkc) 100 Units/Ml SUB-Q Not Given Q6HR [facility] Protocol Loperamide HCl 2 mg 09/08/24 08:12 Loperamide Hcl 2 Mg Capsule PO Q6HR PRN Diarrhea Metoprolol Succinate 100 mg 09/07/24 09:00 09/09/24 09:38 Metoprolol Succinate Ext Rel 100 Mg Tabcr PO 100 mg QAM [facility] Administration Morphine Sulfate 2 mg 09/07/24 08:19 Morphine Sulfate (*Crx) 2 Mg/Ml Inj IV PUSH Q4H PRN Pain Rated 7-10 Naloxone HCl 0.1 mg 09/07/24 08:19 Naloxone Hcl 0.4 Mg/Ml Vial IV PUSH Q2M PRN Opiate Reversal Ondansetron HCl 4 mg 09/07/24 09:15 09/09/24 16:40 Ondansetron Inj 4 Mg/2 Ml Vial IV PUSH 4 mg Q6H PRN Administration Nausea And Vomiting Polysaccharide Iron Complex 150 mg 09/07/24 17:00 09/09/24 09:38 Polysaccharide Iron Complex 150 Mg Capsule PO 150 mg BIDWM [facility]I Administration Rosuvastatin Calcium 5 mg 09/07/24 09:00 09/09/24 09:39 Rosuvastatin 5 Mg Tablet PO 5 mg QAM [facility] Administration Sodium Bicarbonate 650 mg 09/07/24 13:00 09/09/24 12:47 Sodium Bicarbonate Tab 650 Mg Tablet PO 650 mg TID [facility]OMI Administration Sucralfate 1,000 mg 09/07/24 11:30 09/09/24 11:01 Sucralfate Susp 100 Mg/Ml 10 Ml Udc PO 1,000 mg ACHS [facility] Administration Timolol Maleate 1 drop 09/07/24 09:35 09/09/24 09:40 Timolol Maleate 0.5% Op Soln 5 Ml Bottle EACH EYE 1 drop Q12HR [facility] Administration Radiology Results: ITS Impressions Abdomen/Pelvis CT 09/07/24 05:37 Impression: Minimal bilateral pleural effusions. Horseshoe kidney. Chest X-Ray 09/07/24 06:11 Impression: Linear scarring or atelectasis at the lung bases, otherwise clear lungs. Labs Labs: Laboratory Results - last 24 hr 09/08/24 09/08/24 09/08/24 06:31 18:39 23:43 WBC RBC Hgb Hct MCV MCH MCHC RDW Plt Count MPV Immature Gran % (Auto) Neut % (Auto) Lymph % (Auto) [place] % (Auto) Eos % (Auto) Baso % (Auto) Lymph # (Auto) [place] # (Auto) Eos # (Auto) Baso # (Auto) Abs Immat Gran (auto) Absolute Neuts (auto) Absolute Nucleated RBC Nucleated RBC % Sodium Potassium Chloride Carbon Dioxide Anion Gap BUN Creatinine Estim Creat Clear Calc Estimated GFR Glucose POC Capillary Glucose 160 H 114 H Calcium Magnesium 1.6 Total Bilirubin 0.4 Direct Bilirubin 0.0 AST 103 H ALT 63 H Alkaline Phosphatase 119 Total Protein 6.0 L Albumin 2.4 L 09/09/24 09/09/24 09/09/24 05:31 06:25 08:08 WBC 3.1 L RBC 2.84 L Hgb 7.8 L Hct 25.1 L MCV 88.4 MCH 27.5 MCHC 31.1 L RDW 14.8 H Plt Count 101 L MPV 13.0 H Immature Gran % (Auto) 1.0 H Neut % (Auto) 59.5 Lymph % (Auto) 29.5 [place] % (Auto) 9.4 H Eos % (Auto) 0.0 Baso % (Auto) 0.6 Lymph # (Auto) 0.91 [place] # (Auto) 0.3 Eos # (Auto) 0.0 Baso # (Auto) 0.0 Abs Immat Gran (auto) 0.03 Absolute Neuts (auto) 1.8 Absolute Nucleated RBC 0.000 Nucleated RBC % 0.0 Sodium 137 Potassium 3.6 Chloride 117 H Carbon Dioxide 15 L Anion Gap 5 BUN 39 H Creatinine 2.63 H Estim Creat Clear Calc 24 Estimated GFR 18 L Glucose 98 POC Capillary Glucose 97 101 Calcium 7.2 L Magnesium 1.4 L Total Bilirubin 0.6 Direct Bilirubin AST 82 H ALT 55 H Alkaline Phosphatase 114 Total Protein 5.0 L Albumin 2.3 L 09/09/24 12:03 WBC RBC Hgb Hct MCV MCH MCHC RDW Plt Count MPV Immature Gran % (Auto) Neut % (Auto) Lymph % (Auto) [place] % (Auto) Eos % (Auto) Baso % (Auto) Lymph # (Auto) [place] # (Auto) Eos # (Auto) Baso # (Auto) Abs Immat Gran (auto) Absolute Neuts (auto) Absolute Nucleated RBC Nucleated RBC % Sodium Potassium Chloride Carbon Dioxide Anion Gap BUN Creatinine Estim Creat Clear Calc Estimated GFR Glucose POC Capillary Glucose 101 Calcium Magnesium Total Bilirubin Direct Bilirubin AST ALT Alkaline Phosphatase Total Protein Albumin
[2024-09-09] MEDS: LOPERAMIDE HCL 2 MG CAPSULE PO (17:51)
[2024-09-09 18:33] LABS: Immunochemical Fecal Occult Bl Negative (N)
[2024-09-09 18:34] LABS: IFOB Positive Control Positive
[2024-09-09 18:41] LABS: Glucose Point of Care 115 mg/dl (65-105)
[2024-09-09 23:29] LABS: Glucose Point of Care 130 mg/dl (65-105)
[2024-09-10] MEDS: SODIUM CHLORIDE 0.9% IV 1,000 ML 125 ML IV CONT ×3 (02:00→16:45)
[2024-09-10 04:00] VITALS: BP 160/84; PULSE 81; RESP 16; TEMP 36.6; O2SAT 100
[2024-09-10 05:33] LABS: Glucose Point of Care 107 mg/dl (65-105)
[2024-09-10] MEDS: hydrALAZINE HCL 50 MG TABLET PO ×3 (06:01→20:50)
[2024-09-10] MEDS: SUCRALFATE SUSP 100 MG/ML 10 ML UDC 1000 MG PO ×4 (06:01→20:47)
[2024-09-10 06:48] LABS: Basophils Percent Auto 0.6 % (0.2-1.2); Hematocrit 24.6 % (37.0-47.0); Hemoglobin 7.8 g/dL (12.0-15.0); Immature Granulocyte Absolute 0.04 K/mm3 (0.00-0.031); Immature Granulocyte Percent A 1.3 % (0-0.5); Lymphocytes Absolute Auto 0.77 K/mm3 (0.9-3.2); Lymphocytes Percent Auto 24.4 % (18.3-44.2); Mean Corpuscular HGB Conc 31.7 g/dl (32-36); Mean Corpuscular Hemoglobin 27.5 pg (26-34); Mean Corpuscular Volume 86.6 fl (80-100); Mean Platelet Volume 12.7 fl (7.4-10.4); Monocytes Absolute Auto 0.4 K/mm3 (0.1-0.6); Monocytes Percent Auto 12.1 % (2.6-8.5); Neutrophils Absolute Auto 1.9 K/mm3 (1.3-6.7); Neutrophils Percent Auto 61.6 % (45.5-73.1); Platelet Count Result 112 k/mm3 (150-375); Red Blood Count 2.84 M/mm3 (4.2-5.4); Red Cell Distribution Width 14.8 % (11.5-14.5); White Blood Count 3.2 K/mm3 (4.5-10.0)
[2024-09-10 06:59] LABS: Alanine Aminotransferase 50 U/L (6-35); Albumin Level 2.2 g/dL (3.5-5.1); Alkaline Phosphatase 139 U/L (38-126); Anion Gap 6 mmol/L (4-12); Aspartate Amino Transferase 65 U/L (14-36); Bilirubin,Total 0.5 mg/dL (0.2-1.3); Blood Urea Nitrogen 32 mg/dL (7-17); Calcium 7.4 mg/dL (8.4-10.2); Carbon Dioxide 14 mmol/L (22-30); Chloride 121 mmol/L (98-107); Estimated CRCL calculation 27 ml/min; Estimated Glomerular Filt Rate 21; Glucose 104 mg/dL (65-110); Potassium 3.3 mmol/L (3.4-5.0); Sodium 141 mmol/L (137-145)
[2024-09-10 07:10] LABS: Lactate Dehydrogenase 249 U/L (120-246)
[2024-09-10 08:00] VITALS: BP 155/78; PULSE 85; RESP 18; TEMP 36.6; O2SAT 99
--- NOTE | 2024-09-10 09:31 | PCOTNOTE ---
Patient having nausea and vomiting at this time, RN is aware. Will check back at a later time.
[2024-09-10] MEDS: POLYSACCHARIDE IRON COMPLEX 150 MG CAPSULE PO ×2 (09:34→16:44)
[2024-09-10] MEDS: APIXABAN 2.5 MG TABLET PO ×2 (09:35→20:47)
[2024-09-10] MEDS: ROSUVASTATIN 5 MG TABLET PO (09:35)
[2024-09-10] MEDS: SODIUM BICARBONATE TAB 650 MG TABLET 1300 MG PO ×3 (09:35→16:44)
[2024-09-10] MEDS: METOPROLOL SUCCINATE EXT REL 100 MG TABCR PO (09:35)
[2024-09-10] MEDS: amLODIPine BESYLATE 5 MG TABLET PO (09:35)
[2024-09-10] MEDS: COLCHICINE 0.6 MG TABLET PO ×2 (09:35→20:47)
[2024-09-10] MEDS: ONDANSETRON INJ 4 MG/2 ML VIAL IV PUSH ×2 (09:39→19:59)
[2024-09-10] MEDS: FAMOTIDINE 20 MG/2 ML VIAL IV PUSH ×2 (09:39→20:47)
[2024-09-10] MEDS: BRIMONIDINE TARTRATE 0.2% OP SOLN 5 ML BTL 1 DROP EACH EYE ×2 (09:39→20:47)
[2024-09-10] MEDS: TIMOLOL MALEATE 0.5% OP SOLN 5 ML BOTTLE 1 DROP EACH EYE ×2 (09:43→20:47)
[2024-09-10] MEDS: DORZOLAMIDE HCL 2% OPHTH DROPS 1 DROP RIGHT EYE ×2 (09:58→20:47)
[2024-09-10] MEDS: ARTIFICIAL TEARS OPHTH SOLN 15 ML BOTTLE 1 DROP RIGHT EYE ×2 (09:58→20:47)
[2024-09-10 12:00] VITALS: BP 143/72; PULSE 76; RESP 16; TEMP 36.6; O2SAT 100
[2024-09-10 12:15] LABS: Glucose Point of Care 105 mg/dl (65-105)
--- NOTE | 2024-09-10 13:06 | PCOTNOTE ---
Attempted to see this afternoon. Patient refused, stated she feels horrible and nauseated when she moves. Patient declined any activity this P.M.
--- NOTE | 2024-09-10 13:25 | P.PNIM_ITS ---
Progress Note: A&P Assessment and Plan (1) BUTCH (acute kidney injury): Code(s): N17.9 - Acute kidney failure, unspecified Status: Acute Assessment and Plan: on CKD stage 4 nephrology consulted continue sodium bicarb tabs hold nephrotoxic medications IV fluids for hydration patient appears to be dehydrated still 1 L bolus ordered 09/09/24: * Interval improvement in Cr to baseline of 2.63. * Awaiting Nephrology evaluation. * Pt continues to receive IVF. 09/10/24: * Renal function continues to improve. * Nephrology evaluated yesterday and made recommendations. Multiple labs are pending. * Continue IVF of NS at 125 ml/hr. * Hold nephrotoxic meds as much as possible. * Continue Sodium Bicarb tabs. (2) Enteritis: Code(s): K52.9 - Noninfective gastroenteritis and colitis, unspecified Status: Acute Assessment and Plan: improving with nausea and vomiting Carafate with meals Pepcid b.i.d. IV fluids for hydration advance diet as tolerated 09/09/24: * Pt is tolerating diet at this time. * Continue meds of Carafate, Pepcid. 09/10/24: * Pt continues to be symptomatic today. * Continue with current prn meds and hydration. (3) Atrial fibrillation: Code(s): I48.91 - Unspecified atrial fibrillation Status: Acute Assessment and Plan: continue Eliquis and Crestor 09/09/24: * Not orthostatic. * Continue current anticoagulant 09/10/24: * Continue current regimen. (4) Diarrhea: Code(s): R19.7 - Diarrhea, unspecified Status: Acute Assessment and Plan: improving C diff test negative added Imodium 09/09/24: * No further Diarrhea, but pt appears that she does not feel well overall. (5) Diabetes mellitus: Qualifiers: Diabetes mellitus complication detail: with diabetic retinopathy Diabetes mellitus complication status: with ophthalmic complications Diabetes mellitus fci insulin use: without fci use Diabetes mellitus macular edema: without macular edema Diabetes mellitus type: type 2 Diabetic retinopathy severity: with unspecified retinopathy severity Laterality: right Qualified Code(s): E11.319 - Type 2 diabetes mellitus with unspecified diabetic retinopathy without macular edema Code(s): E11.9 - Type 2 diabetes mellitus without complications Status: Chronic Assessment and Plan: diabetic diet SSI 09/09/24: * Continue hypoglycemic protocol * Continue SSI * Continue Diabetic diet * HgbA1C is 5.3. 09/10/24: * Fasting glucose today is 104. * Good control has been achieved. (6) Anemia: Code(s): D64.9 - Anemia, unspecified Status: Acute Assessment and Plan: hemoglobin dropped overnight likely due to fluid resuscitation, stable with last months hemoglobin 09/09/24: * Hgb stable, but slightly lower as compared to the day before yet. * H&H is 7.8/.1 * Continue to trend. * When compared to Hgb from one month ago it is similar. * Anemia likely due to degree of renal disease. 09/10/24: * H&H today stable as compared to yesterday. * Occult blood of stool was obtained and is negative. (7) Hypertension: Code(s): I10 - Essential (primary) hypertension Status: Chronic Assessment and Plan: continue home antihypertensives 09/09/24: * Stable with current regimen. 09/10/24: * Stable at 143/72. (8) Retinal detachment: Code(s): H33.20 - Serous retinal detachment, unspecified eye Status: Chronic Assessment and Plan: patient has right eye detachment, and cataracts continue home eye drops 09/10/24: * Safety precautions due to low eyesight. (9) Pleural effusion: Code(s): J90 - Pleural effusion, not elsewhere classified Status: Chronic Assessment and Plan: stable from earlier this month no SOB 09/09/24: * Continues to be asymptomatic. (10) Failure to thrive: Status: Acute Assessment and Plan: PT OT evaluate and treat 09/09/24: * No s/s of overt malnutrition present. Time Spent With Patient Time with patient: 25 - 35 minutes Subjective Date/time seen: 09/10/24 1030 Interval history: This pt was examined at the bedside today in interval assessment after being admitted to the hospital with enteritis and BUTCH. A stool for occult blood was checked yesterday and is negative. In addition, she continues to vomit and become nauseated. She has CKD and a superimposed BUTCH that she has been hydrated for and her [facility], Dr. Shook has consulted. Multiple tests have been ordered through Dr. Shook and are pending and he is following. No other new complaints today. Review of Systems Review of Systems: All systems reviewed & are unremarkable except as noted in HPI and below Exam Narrative: General: Acutely ill appearing, appears older than stated age. HEENT: normocephalic, atraumatic. Mucous membranes moist. EOMI, PERRLA, bilateral sclera anicteric, no conjunctival injection. Neck supple without JVD, lymphadenopathy, or bruit. Respiratory: clear to auscultation bilaterally. No rales/rhonic/wheezes. Cardiovascular: Regular rate and rhythm, normal S1-S2 upon auscultation. No murmurs, rubs, or clicks. PMI is nondisplaced, capillary refill less than 3 second. Abdomen: Soft, round, no pulsatile masses, TTP diffusely today. No rebound, no guarding. No CVA tenderness, no hepatosplenomegaly. Bowel sounds present to all four quadrants. No high pitch or tinkling sounds, resonant to percussion. Extremities: No cyanosis, clubbing, or edema present. Pulses are palpable 2/2. Active ROM to all four extremities. Neuro: Alert and orientated x 4. PERRLA. Cranial nerves 2-12 intact without focal deficit. Skin: Warm, dry, and intact, without rash, erythema, or lesion. Psych: pleasant, cooperative, normal speech, normal affect, no hallucinations, no dysarthia Objective Data Vital Signs Vital Signs: Vital Signs - 24 hr 09/09/24 14:00 09/09/24 16:00 09/09/24 17:49 Temperature 97.8 F 97.6 F Pulse Rate 80 81 Respiratory Rate 20 20 Blood Pressure 160/80 H 162/82 H 161/76 H Pulse Oximetry 100 100 Oxygen Delivery 09/09/24 20:00 09/09/24 20:00 09/09/24 23:34 Temperature 98.5 F 98.3 F Pulse Rate 82 83 Respiratory Rate 18 16 Blood Pressure 146/82 H 155/75 H Pulse Oximetry 99 100 Oxygen Delivery Room Air 09/10/24 04:00 09/10/24 08:00 09/10/24 12:00 Temperature 97.8 F 97.9 F 98 F Pulse Rate 81 85 76 Respiratory Rate 16 18 16 Blood Pressure 160/84 H 155/78 H 143/72 H Pulse Oximetry 100 99 100 Oxygen Delivery Intake/Output Intake/Output: Intake & Output 09/07/24 09/08/24 09/09/24 09/10/24 23:59 23:59 23:59 23:59 Intake Total 3713 3270 3541.7 2700 Output Total 0 Balance 3713 3270 3541.7 2700 Meds/Results Medications: Active Medications Generic Name Dose Route Start Last Admin Trade Name Freq PRN Reason Stop Dose Admin Acetaminophen 650 mg 09/07/24 08:19 09/09/24 09:29 Acetaminophen 325 Mg Tablet PO 650 mg Q4H PRN Administration Mild Pain (1-3) or Fever Hydrocodone Bitart/Acetaminophen 1 tab 09/07/24 08:19 Hydrocodone/Acetaminophen (*Crx) 5-325 Mg Tablet PO Q4H PRN Moderate Pain (4-6) Amlodipine Besylate 5 mg 09/07/24 09:00 09/10/24 09:35 Amlodipine Besylate 5 Mg Tablet PO 5 mg QAM NAHOMI Administration Apixaban 2.5 mg 09/07/24 09:30 09/10/24 09:35 Apixaban 2.5 Mg Tablet PO 2.5 mg Q12HR NAHOMI Administration Artificial Tears 1 drop 09/07/24 09:35 09/10/24 09:58 Artificial Tears Ophth Soln 15 Ml Bottle RIGHT EYE 1 drop Q12HR NAHOMI Administration Brimonidine Tartrate 1 drop 09/07/24 09:30 09/10/24 09:39 Brimonidine Tartrate 0.2% Op Soln 5 Ml Btl EACH EYE 1 drop Q12HR NAHOMI Administration Colchicine 0.6 mg 09/07/24 09:30 09/10/24 09:35 Colchicine 0.6 Mg Tablet PO 0.6 mg Q12HR NAHOMI Administration Dextrose 12.5 gm 09/07/24 09:15 Dextrose 50% 25 Gm/50 Ml Syringe IV PUSH PRN PRN Hypoglycemia Protocol Dorzolamide HCl 1 drop 09/07/24 09:30 09/10/24 09:58 Dorzolamide Hcl 2% Ophth Drops RIGHT EYE 1 drop Q12HR NAHOMI Administration Famotidine 20 mg 09/07/24 21:00 09/10/24 09:39 Famotidine 20 Mg/2 Ml Vial IV PUSH 20 mg Q12HR NAHOMI Administration Glucagon 1 mg 09/07/24 09:15 Glucagon For Inj 1 Mg Vial IM PRN PRN Hypoglycemia Protocol Glucose 15 gm 09/07/24 09:15 Glucose Oral Gel 15 Gm Of Glucse In 37.5 Gm Tube PO PRN PRN Hypoglycemia Protocol Hydralazine HCl 50 mg 09/07/24 13:00 09/10/24 06:01 Hydralazine Hcl 50 Mg Tablet PO 50 mg Q8HR NAHOMI Administration Sodium Chloride 1,000 mls @ 125 mls/hr 09/07/24 09:15 09/10/24 09:36 Normal Saline Iv IV CONT 125 mls/hr .Q8H NAHOMI Administration Dextrose 1,000 mls @ 100 mls/hr 09/07/24 09:15 Dextrose 5% 1,000 Ml IVPB PRN PRN Hypoglycemia Protocol Insulin Aspart 2 - 5 units 09/07/24 12:00 09/10/24 12:58 Insulin Aspart (*Bkc) 100 Units/Ml SUB-Q Not Given Q6HR NAHOMI Protocol Loperamide HCl 2 mg 09/08/24 08:12 09/09/24 17:51 Loperamide Hcl 2 Mg Capsule PO 2 mg Q6HR PRN Administration Diarrhea Metoprolol Succinate 100 mg 09/07/24 09:00 09/10/24 09:35 Metoprolol Succinate Ext Rel 100 Mg Tabcr PO 100 mg QAM NAHOMI Administration Morphine Sulfate 2 mg 09/07/24 08:19 Morphine Sulfate (*Crx) 2 Mg/Ml Inj IV PUSH Q4H PRN Pain Rated 7-10 Naloxone HCl 0.1 mg 09/07/24 08:19 Naloxone Hcl 0.4 Mg/Ml Vial IV PUSH Q2M PRN Opiate Reversal Ondansetron HCl 4 mg 09/07/24 09:15 09/10/24 09:39 Ondansetron Inj 4 Mg/2 Ml Vial IV PUSH 4 mg Q6H PRN Administration Nausea And Vomiting Polysaccharide Iron Complex 150 mg 09/07/24 17:00 09/10/24 09:34 Polysaccharide Iron Complex 150 Mg Capsule PO 150 mg BIDWM NAHOMI Administration Rosuvastatin Calcium 5 mg 09/07/24 09:00 09/10/24 09:35 Rosuvastatin 5 Mg Tablet PO 5 mg QAM NAHOMI Administration Sodium Bicarbonate 1,300 mg 09/10/24 09:00 09/10/24 09:35 Sodium Bicarbonate Tab 650 Mg Tablet PO 1,300 mg TID NAHOMI Administration Sucralfate 1,000 mg 09/07/24 11:30 09/10/24 06:01 Sucralfate Susp 100 Mg/Ml 10 Ml Udc PO 1,000 mg ACHS NAHOMI Administration Timolol Maleate 1 drop 09/07/24 09:35 09/10/24 09:43 Timolol Maleate 0.5% Op Soln 5 Ml Bottle EACH EYE 1 drop Q12HR NAHOMI Administration Radiology Results: ITS Impressions Abdomen/Pelvis CT 09/07/24 05:37 Impression: Minimal bilateral pleural effusions. Horseshoe kidney. Chest X-Ray 09/07/24 06:11 Impression: Linear scarring or atelectasis at the lung bases, otherwise clear lungs. Labs Labs: Laboratory Results - last 24 hr 09/09/24 09/09/24 09/09/24 17:32 18:38 23:26 WBC RBC Hgb Hct MCV MCH MCHC RDW Plt Count MPV Immature Gran % (Auto) Neut % (Auto) Lymph % (Auto) [place] % (Auto) Eos % (Auto) Baso % (Auto) Lymph # (Auto) [place] # (Auto) Eos # (Auto) Baso # (Auto) Abs Immat Gran (auto) Absolute Neuts (auto) Absolute Nucleated RBC Nucleated RBC % Sodium Potassium Chloride Carbon Dioxide Anion Gap BUN Creatinine Estim Creat Clear Calc Estimated GFR Glucose POC Capillary Glucose 115 H 130 H Calcium Total Bilirubin AST ALT Alkaline Phosphatase Lactate Dehydrogenase Total Protein Albumin Stl Occult Blood (IFOB) Negative Complement C4 09/10/24 09/10/24 09/10/24 05:32 06:17 12:03 WBC 3.2 L RBC 2.84 L Hgb 7.8 L Hct 24.6 L MCV 86.6 MCH 27.5 MCHC 31.7 L RDW 14.8 H Plt Count 112 L MPV 12.7 H Immature Gran % (Auto) 1.3 H Neut % (Auto) 61.6 Lymph % (Auto) 24.4 [place] % (Auto) 12.1 H Eos % (Auto) 0.0 Baso % (Auto) 0.6 Lymph # (Auto) 0.77 L [place] # (Auto) 0.4 Eos # (Auto) 0.0 Baso # (Auto) 0.0 Abs Immat Gran (auto) 0.04 H Absolute Neuts (auto) 1.9 Absolute Nucleated RBC 0.000 Nucleated RBC % 0.0 Sodium 141 Potassium 3.3 L Chloride 121 H Carbon Dioxide 14 L Anion Gap 6 BUN 32 H Creatinine 2.34 H Estim Creat Clear Calc 27 Estimated GFR 21 L Glucose 104 POC Capillary Glucose 107 H 105 Calcium 7.4 L Total Bilirubin 0.5 AST 65 H ALT 50 H Alkaline Phosphatase 139 H Lactate Dehydrogenase 249 H Total Protein 5.0 L Albumin 2.2 L Stl Occult Blood (IFOB) Complement C4 18.5 Quality VTE Prophylaxis VTE prophylaxis: pharmacologic ordered
[2024-09-10 16:00] VITALS: BP 149/75; PULSE 76; RESP 18; TEMP 36.6; O2SAT 99
--- NOTE | 2024-09-10 17:15 | P.PNNP_ITS ---
Progress Note: A&P Assessment and Plan (1) BUTCH (acute kidney injury): Code(s): N17.9 - Acute kidney failure, unspecified Status: Acute Assessment and Plan: * acute kidney injury secondary to volume depletion * chronic kidney disease stage 4 underlying * Diabetic renal disease type 2 * hypertensive renal disease * History of metabolic acidosis on sodium bicarbonate therapy. this is exacerbated by the diarrhea but has baseline metabolic acidosis secondary to renal failure. * anemia chronic kidney disease * pancytopenia * Positive antinuclear antibody recently 1:1289 homogenous pattern Labs reviewed: --LDH is slightly elevated to 49 --urinalysis not done --of the labs are still pending --elevated liver enzymes plan: -pancytopenia holding steady - has pancytopenia, may be a viral origin - cause of diarrhea unclear, persistent nausea. Had elevated liver enzymes. Recommend GI to have looked - increased sodium bicarbonate dosing due to the profound metabolic acidotic picture. - check serological work up, had RBC in urine, 0 7 labs obtained -she had diabetic retinopathy and underlying CKD is form DM, however with current findings and presentation, need to r/o de agata glomerulonephritis (2) Chronic kidney disease, stage IV (severe): Code(s): N18.4 - Chronic kidney disease, stage 4 (severe) Status: Chronic Subjective Date/time seen: 09/10/24 17:15 Interval history: Follow-up renal failure Review of Systems Review of Systems: Patient is not feeling well, nausea, poor appetite. Exam Narrative: Elderly, ill-looking, not in any acute distress however, dry skin, dry oral mucosa, skin turgor was diminished, regular rate rhythm, JVD negative, no gallop, no rub, equal breath sounds, no rub obese, soft nontender abdomen, no masses felt, edema negative, alert, oriented x3, holding a better condition today Objective Data Vital Signs Vital Signs: Vital Signs - 24 hr 09/09/24 17:49 09/09/24 20:00 09/09/24 20:00 Temperature 36.9 C Pulse Rate 82 Respiratory Rate 18 Blood Pressure 161/76 H 146/82 H Pulse Oximetry 99 Oxygen Delivery Room Air 09/09/24 23:34 09/10/24 04:00 09/10/24 08:00 Temperature 36.8 C 36.6 C 36.6 C Pulse Rate 83 81 85 Respiratory Rate 16 16 18 Blood Pressure 155/75 H 160/84 H 155/78 H Pulse Oximetry 100 100 99 Oxygen Delivery 09/10/24 09:20 09/10/24 12:00 09/10/24 16:00 Temperature 36.6 C 36.6 C Pulse Rate 76 76 Respiratory Rate 16 18 Blood Pressure 143/72 H 149/75 H Pulse Oximetry 100 99 Oxygen Delivery Room Air Intake/Output Intake/Output: Intake & Output 09/07/24 09/08/24 09/09/24 09/10/24 23:59 23:59 23:59 23:59 Intake Total 3713 3270 3541.7 3833.8 Output Total 0 Balance 3713 3270 3541.7 3833.8 Meds/Results Medications: Active Medications Generic Name Dose Route Start Last Admin Trade Name Freq PRN Reason Stop Dose Admin Acetaminophen 650 mg 09/07/24 08:19 09/09/24 09:29 Acetaminophen 325 Mg Tablet PO 650 mg Q4H PRN Administration Mild Pain (1-3) or Fever Hydrocodone Bitart/Acetaminophen 1 tab 09/07/24 08:19 Hydrocodone/Acetaminophen (*Crx) 5-325 Mg Tablet PO Q4H PRN Moderate Pain (4-6) Amlodipine Besylate 5 mg 09/07/24 09:00 09/10/24 09:35 Amlodipine Besylate 5 Mg Tablet PO 5 mg QAM NAHOMI Administration Apixaban 2.5 mg 09/07/24 09:30 09/10/24 09:35 Apixaban 2.5 Mg Tablet PO 2.5 mg Q12HR NAHOMI Administration Artificial Tears 1 drop 09/07/24 09:35 09/10/24 09:58 Artificial Tears Ophth Soln 15 Ml Bottle RIGHT EYE 1 drop Q12HR NAHOMI Administration Brimonidine Tartrate 1 drop 09/07/24 09:30 09/10/24 09:39 Brimonidine Tartrate 0.2% Op Soln 5 Ml Btl EACH EYE 1 drop Q12HR NAHOMI Administration Colchicine 0.6 mg 09/07/24 09:30 09/10/24 09:35 Colchicine 0.6 Mg Tablet PO 0.6 mg Q12HR NAHOMI Administration Dextrose 12.5 gm 09/07/24 09:15 Dextrose 50% 25 Gm/50 Ml Syringe IV PUSH PRN PRN Hypoglycemia Protocol Dorzolamide HCl 1 drop 09/07/24 09:30 09/10/24 09:58 Dorzolamide Hcl 2% Ophth Drops RIGHT EYE 1 drop Q12HR NAHOMI Administration Famotidine 20 mg 09/07/24 21:00 09/10/24 09:39 Famotidine 20 Mg/2 Ml Vial IV PUSH 20 mg Q12HR NAHOMI Administration Glucagon 1 mg 09/07/24 09:15 Glucagon For Inj 1 Mg Vial IM PRN PRN Hypoglycemia Protocol Glucose 15 gm 09/07/24 09:15 Glucose Oral Gel 15 Gm Of Glucse In 37.5 Gm Tube PO PRN PRN Hypoglycemia Protocol Hydralazine HCl 50 mg 09/07/24 13:00 09/10/24 14:03 Hydralazine Hcl 50 Mg Tablet PO 50 mg Q8HR NAHOMI Administration Sodium Chloride 1,000 mls @ 125 mls/hr 09/07/24 09:15 09/10/24 16:45 Normal Saline Iv IV CONT 125 mls/hr .Q8H NAHOMI Administration Dextrose 1,000 mls @ 100 mls/hr 09/07/24 09:15 Dextrose 5% 1,000 Ml IVPB PRN PRN Hypoglycemia Protocol Insulin Aspart 2 - 5 units 09/07/24 12:00 09/10/24 12:58 Insulin Aspart (*Bkc) 100 Units/Ml SUB-Q Not Given Q6HR [facility] Protocol Loperamide HCl 2 mg 09/08/24 08:12 09/09/24 17:51 Loperamide Hcl 2 Mg Capsule PO 2 mg Q6HR PRN Administration Diarrhea Metoprolol Succinate 100 mg 09/07/24 09:00 09/10/24 09:35 Metoprolol Succinate Ext Rel 100 Mg Tabcr PO 100 mg QAM NAHOMI Administration Morphine Sulfate 2 mg 09/07/24 08:19 Morphine Sulfate (*Crx) 2 Mg/Ml Inj IV PUSH Q4H PRN Pain Rated 7-10 Naloxone HCl 0.1 mg 09/07/24 08:19 Naloxone Hcl 0.4 Mg/Ml Vial IV PUSH Q2M PRN Opiate Reversal Ondansetron HCl 4 mg 09/07/24 09:15 09/10/24 09:39 Ondansetron Inj 4 Mg/2 Ml Vial IV PUSH 4 mg Q6H PRN Administration Nausea And Vomiting Polysaccharide Iron Complex 150 mg 09/07/24 17:00 09/10/24 16:44 Polysaccharide Iron Complex 150 Mg Capsule PO 150 mg BIDWM NAHOMI Administration Rosuvastatin Calcium 5 mg 09/07/24 09:00 09/10/24 09:35 Rosuvastatin 5 Mg Tablet PO 5 mg QAM NAHOMI Administration Sodium Bicarbonate 1,300 mg 09/10/24 09:00 09/10/24 16:44 Sodium Bicarbonate Tab 650 Mg Tablet PO 1,300 mg TID NAHOMI Administration Sucralfate 1,000 mg 09/07/24 11:30 09/10/24 16:35 Sucralfate Susp 100 Mg/Ml 10 Ml Udc PO 1,000 mg ACHS NAHOMI Administration Timolol Maleate 1 drop 09/07/24 09:35 09/10/24 09:43 Timolol Maleate 0.5% Op Soln 5 Ml Bottle EACH EYE 1 drop Q12HR NAHOMI Administration Radiology Results: ITS Impressions Abdomen/Pelvis CT 09/07/24 05:37 Impression: Minimal bilateral pleural effusions. Horseshoe kidney. Chest X-Ray 09/07/24 06:11 Impression: Linear scarring or atelectasis at the lung bases, otherwise clear lungs. Labs Labs: Laboratory Results - last 24 hr 09/09/24 09/09/24 09/09/24 17:32 18:38 23:26 WBC RBC Hgb Hct MCV MCH MCHC RDW Plt Count MPV Immature Gran % (Auto) Neut % (Auto) Lymph % (Auto) [place] % (Auto) Eos % (Auto) Baso % (Auto) Lymph # (Auto) [place] # (Auto) Eos # (Auto) Baso # (Auto) Abs Immat Gran (auto) Absolute Neuts (auto) Absolute Nucleated RBC Nucleated RBC % Sodium Potassium Chloride Carbon Dioxide Anion Gap BUN Creatinine Estim Creat Clear Calc Estimated GFR Glucose POC Capillary Glucose 115 H 130 H Calcium Total Bilirubin AST ALT Alkaline Phosphatase Lactate Dehydrogenase Total Protein Albumin Stl Occult Blood (IFOB) Negative Complement C4 09/10/24 09/10/24 09/10/24 05:32 06:17 12:03 WBC 3.2 L RBC 2.84 L Hgb 7.8 L Hct 24.6 L MCV 86.6 MCH 27.5 MCHC 31.7 L RDW 14.8 H Plt Count 112 L MPV 12.7 H Immature Gran % (Auto) 1.3 H Neut % (Auto) 61.6 Lymph % (Auto) 24.4 [place] % (Auto) 12.1 H Eos % (Auto) 0.0 Baso % (Auto) 0.6 Lymph # (Auto) 0.77 L [place] # (Auto) 0.4 Eos # (Auto) 0.0 Baso # (Auto) 0.0 Abs Immat Gran (auto) 0.04 H Absolute Neuts (auto) 1.9 Absolute Nucleated RBC 0.000 Nucleated RBC % 0.0 Sodium 141 Potassium 3.3 L Chloride 121 H Carbon Dioxide 14 L Anion Gap 6 BUN 32 H Creatinine 2.34 H Estim Creat Clear Calc 27 Estimated GFR 21 L Glucose 104 POC Capillary Glucose 107 H 105 Calcium 7.4 L Total Bilirubin 0.5 AST 65 H ALT 50 H Alkaline Phosphatase 139 H Lactate Dehydrogenase 249 H Total Protein 5.0 L Albumin 2.2 L Stl Occult Blood (IFOB) Complement C4 18.5
[2024-09-10 19:05] LABS: Complement C3 87 mg/dL (88-165)
[2024-09-10 19:08] LABS: Glucose Point of Care 88 mg/dl (65-105)
[2024-09-10 20:00] VITALS: BP 146/70; PULSE 79; RESP 14; TEMP 36.4; O2SAT 99
[2024-09-10] MEDS: DEXTROSE 5%/LACTATED RINGERS 1,000 ML 100 ML IV CONT (20:48)
[2024-09-10] MEDS: LOPERAMIDE HCL 2 MG CAPSULE PO (20:54)
[2024-09-11] VITALS (7 sets, daily range): BP systolic 128–172; BP diastolic 64–77; PULSE 75–88; RESP 16–20; TEMP 36.1–36.6; O2SAT 98–100
[2024-09-11 00:32] LABS: Glucose Point of Care 147 mg/dl (65-105)
[2024-09-11 04:45] LABS: Glucose Point of Care 149 mg/dl (65-105)
[2024-09-11] MEDS: hydrALAZINE HCL 50 MG TABLET PO ×3 (06:16→22:23)
[2024-09-11] MEDS: SUCRALFATE SUSP 100 MG/ML 10 ML UDC 1000 MG PO ×2 (06:30→22:23)
[2024-09-11] MEDS: DEXTROSE 5%/LACTATED RINGERS 1,000 ML 100 ML IV CONT ×2 (06:49→17:07)
[2024-09-11 07:47] LABS: Basophils Percent Auto 0.4 % (0.2-1.2); Immature Granulocyte Absolute 0.04 K/mm3 (0.00-0.031); Immature Granulocyte Percent A 1.5 % (0-0.5); Lymphocytes Absolute Auto 0.65 K/mm3 (0.9-3.2); Lymphocytes Percent Auto 24.3 % (18.3-44.2); Mean Corpuscular Hemoglobin 27.7 pg (26-34); Mean Corpuscular Volume 86.5 fl (80-100); Mean Platelet Volume 12.8 fl (7.4-10.4); Monocytes Absolute Auto 0.5 K/mm3 (0.1-0.6); Monocytes Percent Auto 17.6 % (2.6-8.5); Neutrophils Absolute Auto 1.5 K/mm3 (1.3-6.7); Neutrophils Percent Auto 56.2 % (45.5-73.1); Platelet Count Result 124 k/mm3 (150-375); Red Blood Count 2.89 M/mm3 (4.2-5.4); Red Cell Distribution Width 15.5 % (11.5-14.5); White Blood Count 2.7 K/mm3 (4.5-10.0)
[2024-09-11 07:48] LABS: Alanine Aminotransferase 47 U/L (6-35); Albumin Level 2.1 g/dL (3.5-5.1); Alkaline Phosphatase 131 U/L (38-126); Anion Gap 6 mmol/L (4-12); Aspartate Amino Transferase 63 U/L (14-36); Bilirubin,Total 0.6 mg/dL (0.2-1.3); Blood Urea Nitrogen 29 mg/dL (7-17); Calcium 7.4 mg/dL (8.4-10.2); Carbon Dioxide 15 mmol/L (22-30); Chloride 121 mmol/L (98-107); Estimated CRCL calculation 28 ml/min; Estimated Glomerular Filt Rate 22; Glucose 138 mg/dL (65-110); Magnesium 1.3 mg/dL (1.6-2.3); Potassium 2.9 mmol/L (3.4-5.0); Sodium 142 mmol/L (137-145)
[2024-09-11] MEDS: COLCHICINE 0.6 MG TABLET PO ×2 (08:01→22:23)
[2024-09-11] MEDS: ROSUVASTATIN 5 MG TABLET PO (08:01)
[2024-09-11] MEDS: ARTIFICIAL TEARS OPHTH SOLN 15 ML BOTTLE 1 DROP RIGHT EYE ×2 (08:02→22:24)
[2024-09-11] MEDS: FAMOTIDINE 20 MG/2 ML VIAL IV PUSH ×2 (08:02→22:23)
[2024-09-11] MEDS: DORZOLAMIDE HCL 2% OPHTH DROPS 1 DROP RIGHT EYE ×2 (08:02→22:24)
[2024-09-11] MEDS: APIXABAN 2.5 MG TABLET PO ×2 (08:02→22:23)
[2024-09-11] MEDS: amLODIPine BESYLATE 5 MG TABLET PO (08:02)
[2024-09-11] MEDS: BRIMONIDINE TARTRATE 0.2% OP SOLN 5 ML BTL 1 DROP EACH EYE ×2 (08:02→22:24)
[2024-09-11] MEDS: SODIUM BICARBONATE TAB 650 MG TABLET 1300 MG PO ×2 (08:02→17:02)
[2024-09-11] MEDS: POLYSACCHARIDE IRON COMPLEX 150 MG CAPSULE PO ×2 (08:02→17:02)
[2024-09-11] MEDS: METOPROLOL SUCCINATE EXT REL 100 MG TABCR PO (08:02)
[2024-09-11] MEDS: TIMOLOL MALEATE 0.5% OP SOLN 5 ML BOTTLE 1 DROP EACH EYE ×2 (08:03→22:24)
[2024-09-11] MEDS: ONDANSETRON INJ 4 MG/2 ML VIAL IV PUSH ×2 (08:19→22:23)
[2024-09-11] MEDS: LOPERAMIDE HCL 2 MG CAPSULE PO (08:19)
[2024-09-11] MEDS: MORPHINE SULFATE (*CRX) 2 MG/ML INJ IV PUSH ×2 (08:20→22:23)
--- NOTE | 2024-09-11 08:49 | P.PNIM_ITS ---
Progress Note: A&P Assessment and Plan (1) BUTCH (acute kidney injury): Code(s): N17.9 - Acute kidney failure, unspecified Status: Acute Assessment and Plan: CKD stage 4. Creatinine 4.21 on admission, improving with fluids. Complicated by signficant hypokalemia and hypomagnesemia as noted CO2 15 about the same hold nephrotoxic medications IV fluids for hydration * Creatinine improving 4.21>3.13>2.63>2.34>2.28 * Nephrology consulted, appreciate recommendations: ruling out de agata glomerulonephritis * Avoid nephrotoxins * continue sodium bicarb tabs * Continue fluids * UA pending * Potassium and mag low, repleting with 20meq and 2G IV. Repeat labs in AM * Monitor on telemetry (2) Enteritis: Code(s): K52.9 - Noninfective gastroenteritis and colitis, unspecified Status: Acute Assessment and Plan: nausea and vomiting improving. Intermittently tolerating a diet. Said she only had a cracker today, emesis x1 * Carafate with meals, pepcid * Fluids and antiemetics * Follow intake, may need GI to see her (3) Atrial fibrillation: Code(s): I48.91 - Unspecified atrial fibrillation Status: Acute Assessment and Plan: continue Eliquis and Crestor (4) Diarrhea: Code(s): R19.7 - Diarrhea, unspecified Status: Acute Assessment and Plan: improving. No further diarrhea C diff test negative added Imodium (5) Diabetes mellitus: Qualifiers: Diabetes mellitus complication detail: with diabetic retinopathy Diabetes mellitus complication status: with ophthalmic complications Diabetes mellitus nursing home insulin use: without termination clerk use Diabetes mellitus macular edema: without macular edema Diabetes mellitus type: type 2 Diabetic retinopathy severity: with unspecified retinopathy severity Laterality: right Qualified Code(s): E11.319 - Type 2 diabetes mellitus with unspecified diabetic retinopathy without macular edema Code(s): E11.9 - Type 2 diabetes mellitus without complications Status: Chronic Assessment and Plan: HgbA1C is 5.3. * Continue hypoglycemic protocol * Continue SSI * Continue Diabetic diet (6) Anemia: Code(s): D64.9 - Anemia, unspecified Status: Acute Assessment and Plan: Baseline H&H 8/25.7. 10/31.9 on admission in the setting of dehydration. Oc cult blood of stool was obtained and is negative. * H&H stable, 7.8/35.1-8.2/26 in the last few days. 04/18 today. * Anemia likely due to degree of renal disease. * Follow CBC * Pancytopenia, may be viral (7) Hypertension: Code(s): I10 - Essential (primary) hypertension Status: Chronic Assessment and Plan: Home meds: Hydralazine 50mg TID, Metoprolol 100mg ER, Amlodipine 5mg * Blood pressure controlled * Continue home antihypertensives (8) Retinal detachment: Code(s): H33.20 - Serous retinal detachment, unspecified eye Status: Chronic Assessment and Plan: patient has right eye detachment, and cataracts * Safety precautions due to low eyesight. * continue home eye drops (9) Pleural effusion: Code(s): J90 - Pleural effusion, not elsewhere classified Status: Chronic Assessment and Plan: stable from earlier this month no SOB (10) Failure to thrive: Status: Acute Assessment and Plan: No s/s of overt malnutrition present. * PT OT evaluate and treat * Follow PO intake * Boiler House Operator consult, may need a calorie count Time Spent With Patient Time: 57 minutes Subjective Date/time seen: 09/11/24 18:50 Interval history: Creatinine trending down, improved slightly, 2.28. Potassium and magnesium low, repleting. Reports eating a cracker today, otherwise said she didn't have anything to eat Generalized abdominal pain Review of Systems Review of Systems: 12 systems were reviewed and are negative except for as per HPI. All systems reviewed & are unremarkable except as noted in HPI and below Exam Narrative: General: Acutely ill appearing, appears older than stated age. HEENT: normocephalic, atraumatic. Mucous membranes moist. EOMI, PERRLA, bilateral sclera anicteric, no conjunctival injection. Neck supple without JVD, lymphadenopathy, or bruit. Respiratory: clear to auscultation bilaterally. No rales/rhonic/wheezes. Cardiovascular: Regular rate and rhythm, normal S1-S2 upon auscultation. No murmurs, rubs, or clicks. PMI is nondisplaced, capillary refill less than 3 second. Abdomen: Soft, round, no pulsatile masses, TTP diffusely today. No rebound, no guarding. No CVA tenderness, no hepatosplenomegaly. Bowel sounds present to all four quadrants. No high pitch or tinkling sounds, resonant to percussion. Extremities: No cyanosis, clubbing, or edema present. Pulses are palpable 2/2. Active ROM to all four extremities. Neuro: Alert and orientated x 4. PERRLA. Cranial nerves 2-12 intact without focal deficit. Skin: Warm, dry, and intact, without rash, erythema, or lesion. Psych: pleasant, cooperative, normal speech, normal affect, no hallucinations, no dysarthia Objective Data Vital Signs Vital Signs: Vital Signs - 24 hr 09/10/24 09:20 09/10/24 12:00 09/10/24 16:00 Temperature 98 F 97.9 F Pulse Rate 76 76 Respiratory Rate 16 18 Blood Pressure 143/72 H 149/75 H Pulse Oximetry 100 99 Oxygen Delivery Room Air 09/10/24 20:00 09/10/24 20:00 09/11/24 00:00 Temperature 97.6 F 97.0 F L Pulse Rate 79 81 Respiratory Rate 14 16 Blood Pressure 146/70 H 172/77 H Pulse Oximetry 99 99 Oxygen Delivery Room Air 09/11/24 04:00 09/11/24 08:00 Temperature 97.1 F L 97.8 F Pulse Rate 81 84 Respiratory Rate 16 17 Blood Pressure 150/72 H 149/71 H Pulse Oximetry 100 99 Oxygen Delivery Intake/Output Intake/Output: Intake & Output 09/08/24 09/09/24 09/10/24 09/11/24 23:59 23:59 23:59 23:59 Intake Total 3270 3541.7 3833.8 1000 Output Total 0 Balance 3270 3541.7 3833.8 1000 Meds/Results Medications: Active Medications Generic Name Dose Route Start Last Admin Trade Name Freq PRN Reason Stop Dose Admin Acetaminophen 650 mg 09/07/24 08:19 09/09/24 09:29 Acetaminophen 325 Mg Tablet PO 650 mg Q4H PRN Administration Mild Pain (1-3) or Fever Hydrocodone Bitart/Acetaminophen 1 tab 09/07/24 08:19 Hydrocodone/Acetaminophen (*Crx) 5-325 Mg Tablet PO Q4H PRN Moderate Pain (4-6) Amlodipine Besylate 5 mg 09/07/24 09:00 09/11/24 08:02 Amlodipine Besylate 5 Mg Tablet PO 5 mg QAM [facility] Administration Apixaban 2.5 mg 09/07/24 09:30 09/11/24 08:02 Apixaban 2.5 Mg Tablet PO 2.5 mg Q12HR [facility] Administration Artificial Tears 1 drop 09/07/24 09:35 09/11/24 08:02 Artificial Tears Ophth Soln 15 Ml Bottle RIGHT EYE 1 drop Q12HR [facility] Administration Brimonidine Tartrate 1 drop 09/07/24 09:30 09/11/24 08:02 Brimonidine Tartrate 0.2% Op Soln 5 Ml Btl EACH EYE 1 drop Q12HR [facility] Administration Colchicine 0.6 mg 09/07/24 09:30 09/11/24 08:01 Colchicine 0.6 Mg Tablet PO 0.6 mg Q12HR [facility] Administration Dextrose 12.5 gm 09/07/24 09:15 Dextrose 50% 25 Gm/50 Ml Syringe IV PUSH PRN PRN Hypoglycemia Protocol Dorzolamide HCl 1 drop 09/07/24 09:30 09/11/24 08:02 Dorzolamide Hcl 2% Ophth Drops RIGHT EYE 1 drop Q12HR [facility] Administration Famotidine 20 mg 09/07/24 21:00 09/11/24 08:02 Famotidine 20 Mg/2 Ml Vial IV PUSH 20 mg Q12HR [facility] Administration Glucagon 1 mg 09/07/24 09:15 Glucagon For Inj 1 Mg Vial IM PRN PRN Hypoglycemia Protocol Glucose 15 gm 09/07/24 09:15 Glucose Oral Gel 15 Gm Of Glucse In 37.5 Gm Tube PO PRN PRN Hypoglycemia Protocol Hydralazine HCl 50 mg 09/07/24 13:00 09/11/24 06:16 Hydralazine Hcl 50 Mg Tablet PO 50 mg Q8HR [facility] Administration Dextrose 1,000 mls @ 100 mls/hr 09/07/24 09:15 Dextrose 5% 1,000 Ml IVPB PRN PRN Hypoglycemia Protocol Dextrose/Lactated Ringer's 1,000 mls @ 100 mls/hr 09/10/24 20:05 09/11/24 06:49 Dextrose 5%/Lactated Ringers IV CONT 100 mls/hr .Q10H [facility] Administration Insulin Aspart 2 - 5 units 09/07/24 12:00 09/11/24 06:46 Insulin Aspart (*Bkc) 100 Units/Ml SUB-Q Not Given Q6HR [facility] Protocol Loperamide HCl 2 mg 09/08/24 08:12 09/11/24 08:19 Loperamide Hcl 2 Mg Capsule PO 2 mg Q6HR PRN Administration Diarrhea Metoprolol Succinate 100 mg 09/07/24 09:00 09/11/24 08:02 Metoprolol Succinate Ext Rel 100 Mg Tabcr PO 100 mg QAM [facility] Administration Morphine Sulfate 2 mg 09/07/24 08:19 09/11/24 08:20 Morphine Sulfate (*Crx) 2 Mg/Ml Inj IV PUSH 2 mg Q4H PRN Administration Pain Rated 7-10 Naloxone HCl 0.1 mg 09/07/24 08:19 Naloxone Hcl 0.4 Mg/Ml Vial IV PUSH Q2M PRN Opiate Reversal Ondansetron HCl 4 mg 09/07/24 09:15 09/11/24 08:19 Ondansetron Inj 4 Mg/2 Ml Vial IV PUSH 4 mg Q6H PRN Administration Nausea And Vomiting Polysaccharide Iron Complex 150 mg 09/07/24 17:00 09/11/24 08:02 Polysaccharide Iron Complex 150 Mg Capsule PO 150 mg BIDWM [facility] Administration Rosuvastatin Calcium 5 mg 09/07/24 09:00 09/11/24 08:01 Rosuvastatin 5 Mg Tablet PO 5 mg QAM [facility] Administration Sodium Bicarbonate 1,300 mg 09/10/24 09:00 09/11/24 08:02 Sodium Bicarbonate Tab 650 Mg Tablet PO 1,300 mg TID [facility] Administration Sucralfate 1,000 mg 09/07/24 11:30 09/11/24 06:30 Sucralfate Susp 100 Mg/Ml 10 Ml Udc PO 1,000 mg ACHS [facility] Administration Timolol Maleate 1 drop 09/07/24 09:35 09/11/24 08:03 Timolol Maleate 0.5% Op Soln 5 Ml Bottle EACH EYE 1 drop Q12HR [facility] Administration Radiology Results: ITS Impressions Abdomen/Pelvis CT 09/07/24 05:37 Impression: Minimal bilateral pleural effusions. Horseshoe kidney. Chest X-Ray 09/07/24 06:11 Impression: Linear scarring or atelectasis at the lung bases, otherwise clear lungs. Labs Labs: Laboratory Results - last 24 hr 09/10/24 09/10/24 09/10/24 06:13 12:03 19:06 WBC RBC Hgb Hct MCV MCH MCHC RDW Plt Count MPV Immature Gran % (Auto) Neut % (Auto) Lymph % (Auto) [place] % (Auto) Eos % (Auto) Baso % (Auto) Lymph # (Auto) [place] # (Auto) Eos # (Auto) Baso # (Auto) Abs Immat Gran (auto) Absolute Neuts (auto) Absolute Nucleated RBC Nucleated RBC % Sodium Potassium Chloride Carbon Dioxide Anion Gap BUN Creatinine Estim Creat Clear Calc Estimated GFR Glucose POC Capillary Glucose 105 88 Calcium Magnesium Total Bilirubin AST ALT Alkaline Phosphatase Total Protein Albumin Complement C3 87 L 09/11/24 09/11/24 09/11/24 00:28 04:39 07:16 WBC 2.7 L RBC 2.89 L Hgb 8.0 L Hct 25.0 L MCV 86.5 MCH 27.7 MCHC 32.0 RDW 15.5 H Plt Count 124 L MPV 12.8 H Immature Gran % (Auto) 1.5 H Neut % (Auto) 56.2 Lymph % (Auto) 24.3 [place] % (Auto) 17.6 H Eos % (Auto) 0.0 Baso % (Auto) 0.4 Lymph # (Auto) 0.65 L [place] # (Auto) 0.5 Eos # (Auto) 0.0 Baso # (Auto) 0.0 Abs Immat Gran (auto) 0.04 H Absolute Neuts (auto) 1.5 Absolute Nucleated RBC 0.000 Nucleated RBC % 0.0 Sodium 142 Potassium 2.9 L Chloride 121 H Carbon Dioxide 15 L Anion Gap 6 BUN 29 H Creatinine 2.28 H Estim Creat Clear Calc 28 Estimated GFR 22 L Glucose 138 H POC Capillary Glucose 147 H 149 H Calcium 7.4 L Magnesium 1.3 L Total Bilirubin 0.6 AST 63 H ALT 47 H Alkaline Phosphatase 131 H Total Protein 5.0 L Albumin 2.1 L Complement C3 Quality VTE Prophylaxis VTE prophylaxis: pharmacologic ordered Hospitalist MIPS Advance Care Plan I have confirmed that the patient's Advanced Care Plan is present, code status is documented, or surrogate decision maker is listed in patient medical record.: Yes Medication Reconciliation I have utilized all available resources to obtain, update and review the patients current medications (includes all prescriptions, OTC, herbals, cannabis, and nutritional supplements).: Yes
[2024-09-11 11:47] LABS: Glucose Point of Care 149 mg/dl (65-105)
--- NOTE | 2024-09-11 16:41 | PCPTNOTE ---
Pt sleeping and refused treatment due to nausea.
[2024-09-11 16:49] LABS: Glucose Point of Care 120 mg/dl (65-105)
[2024-09-11] MEDS: MAGNESIUM SULF 2 GM/WATER 50ML 2 GM/50 ML BAG IVPB (19:26)
[2024-09-11] MEDS: KCL 20 MEQ/SW 100 ML 100 ML 25 MEQ IVPB (19:35)
[2024-09-11 22:54] LABS: Glucose Point of Care 109 mg/dl (65-105)
[2024-09-12] VITALS (9 sets, daily range): BP systolic 116–151; BP diastolic 68–84; PULSE 76–85; RESP 14–15; TEMP 36.2–36.4; O2SAT 93–99
[2024-09-12 01:17] LABS: Glucose Point of Care 92 mg/dl (65-105)
[2024-09-12 02:29] LABS: Haptoglobin 97 mg/dL (43-212)
[2024-09-12 04:42] LABS: Glucose Point of Care 101 mg/dl (65-105)
[2024-09-12 04:42] LABS: Glucose Point of Care 104 mg/dl (65-105)
[2024-09-12] MEDS: SUCRALFATE SUSP 100 MG/ML 10 ML UDC 1000 MG PO ×4 (05:42→22:08)
[2024-09-12] MEDS: hydrALAZINE HCL 50 MG TABLET PO ×3 (05:42→22:08)
[2024-09-12 07:01] LABS: Hematocrit 24.2 % (37.0-47.0); Hemoglobin 7.5 g/dL (12.0-15.0); Immature Granulocyte Absolute 0.07 K/mm3 (0.00-0.031); Immature Granulocyte Percent A 2.3 % (0-0.5); Lymphocytes Absolute Auto 0.83 K/mm3 (0.9-3.2); Mean Corpuscular Hemoglobin 26.8 pg (26-34); Mean Corpuscular Volume 86.4 fl (80-100); Mean Platelet Volume 12.5 fl (7.4-10.4); Monocytes Absolute Auto 0.6 K/mm3 (0.1-0.6); Monocytes Percent Auto 18.6 % (2.6-8.5); Neutrophils Absolute Auto 1.6 K/mm3 (1.3-6.7); Neutrophils Percent Auto 51.1 % (45.5-73.1); Platelet Count Result 130 k/mm3 (150-375); Red Cell Distribution Width 15.8 % (11.5-14.5); White Blood Count 3.1 K/mm3 (4.5-10.0)
[2024-09-12 07:07] LABS: Alanine Aminotransferase 45 U/L (6-35); Alkaline Phosphatase 185 U/L (38-126); Anion Gap 4 mmol/L (4-12); Aspartate Amino Transferase 60 U/L (14-36); Bilirubin,Total 0.5 mg/dL (0.2-1.3); Blood Urea Nitrogen 29 mg/dL (7-17); Calcium 7.4 mg/dL (8.4-10.2); Carbon Dioxide 17 mmol/L (22-30); Chloride 121 mmol/L (98-107); Estimated CRCL calculation 25 ml/min; Estimated Glomerular Filt Rate 20; Glucose 105 mg/dL (65-110); Potassium 2.9 mmol/L (3.4-5.0); Sodium 142 mmol/L (137-145)
[2024-09-12] MEDS: TIMOLOL MALEATE 0.5% OP SOLN 5 ML BOTTLE 1 DROP EACH EYE ×2 (09:10→22:08)
[2024-09-12] MEDS: SODIUM BICARBONATE TAB 650 MG TABLET 1300 MG PO ×3 (09:40→18:13)
[2024-09-12] MEDS: APIXABAN 2.5 MG TABLET PO ×2 (09:40→22:08)
[2024-09-12] MEDS: COLCHICINE 0.6 MG TABLET PO (09:40)
[2024-09-12] MEDS: POLYSACCHARIDE IRON COMPLEX 150 MG CAPSULE PO ×2 (09:40→18:12)
[2024-09-12] MEDS: BRIMONIDINE TARTRATE 0.2% OP SOLN 5 ML BTL 1 DROP EACH EYE ×2 (09:41→22:08)
[2024-09-12] MEDS: DORZOLAMIDE HCL 2% OPHTH DROPS 1 DROP RIGHT EYE ×2 (09:41→22:08)
[2024-09-12] MEDS: ROSUVASTATIN 5 MG TABLET PO (09:41)
[2024-09-12] MEDS: METOPROLOL SUCCINATE EXT REL 100 MG TABCR PO (09:41)
[2024-09-12] MEDS: amLODIPine BESYLATE 5 MG TABLET PO (09:41)
[2024-09-12] MEDS: ARTIFICIAL TEARS OPHTH SOLN 15 ML BOTTLE 1 DROP RIGHT EYE ×2 (09:41→22:08)
[2024-09-12] MEDS: FAMOTIDINE 20 MG/2 ML VIAL IV PUSH ×2 (09:42→22:09)
--- NOTE | 2024-09-12 10:10 | P.PNIM_ITS ---
Progress Note: A&P Assessment and Plan (1) BUTCH (acute kidney injury): Code(s): N17.9 - Acute kidney failure, unspecified Status: Acute Assessment and Plan: CKD stage 4. Creatinine 4.21 on admission, improving with fluids. Complicated by signficant hypokalemia and hypomagnesemia as noted CO2 15 about the same hold nephrotoxic medications IV fluids for hydration * Creatinine improving 4.21>3.13>2.63>2.34>2.28 * Nephrology consulted, appreciate recommendations: ruling out de agata glomerulonephritis * Avoid nephrotoxins * continue sodium bicarb tabs * Continue fluids * UA pending * Repleting mag and phos * Monitor on telemetry (2) Enteritis: Code(s): K52.9 - Noninfective gastroenteritis and colitis, unspecified Status: Acute Assessment and Plan: nausea and vomiting improving. Intermittently tolerating a diet. Said she only had a cracker today, emesis x1 * Carafate with meals, pepcid. Change to PPI after stool for H pylori sent * Fluids and antiemetics * GI consulted, appreciate recommendations * Check Stool for H pylori, stool for C-diff * Holding colchicine (3) Atrial fibrillation: Code(s): I48.91 - Unspecified atrial fibrillation Status: Acute Assessment and Plan: continue Eliquis and Crestor (4) Diarrhea: Code(s): R19.7 - Diarrhea, unspecified Status: Acute Assessment and Plan: improving. No further diarrhea C diff test negative added Imodium (5) Diabetes mellitus: Qualifiers: Diabetes mellitus complication detail: with diabetic retinopathy Diabetes mellitus complication status: with ophthalmic complications Diabetes mellitus intermediate insulin use: without roasterman use Diabetes mellitus macular edema: without macular edema Diabetes mellitus type: type 2 Diabetic retinopathy severity: with unspecified retinopathy severity Laterality: right Qualified Code(s): E11.319 - Type 2 diabetes mellitus with unspecified diabetic retinopathy without macular edema Code(s): E11.9 - Type 2 diabetes mellitus without complications Status: Chronic Assessment and Plan: HgbA1C is 5.3. * Continue hypoglycemic protocol * Continue SSI * Continue Diabetic diet * Starting steroids, monitor blood sugars (6) Anemia: Code(s): D64.9 - Anemia, unspecified Status: Acute Assessment and Plan: Baseline H&H 04/18.7. 10/31.9 on admission in the setting of dehydration. Occult blood of stool was obtained and is negative. * H&H stable, 7.8/35.1-8.2/26 in the last few days. 04/18 today. * Anemia likely due to degree of renal disease. * Follow CBC * Pancytopenia, may be viral (7) Hypertension: Code(s): I10 - Essential (primary) hypertension Status: Chronic Assessment and Plan: Home meds: Hydralazine 50mg TID, Metoprolol 100mg ER, Amlodipine 5mg * Blood pressure controlled * Continue home antihypertensives (8) Retinal detachment: Code(s): H33.20 - Serous retinal detachment, unspecified eye Status: Chronic Assessment and Plan: patient has right eye detachment, and cataracts * Safety precautions due to low eyesight. * continue home eye drops (9) Pleural effusion: Code(s): J90 - Pleural effusion, not elsewhere classified Status: Chronic Assessment and Plan: stable from earlier this month no SOB (10) Failure to thrive: Status: Acute Assessment and Plan: No s/s of overt malnutrition present. * PT OT evaluate and treat * Follow PO intake * It Quality Assurance Analyst consult, may need a calorie count (11) Hypokalemia: Code(s): E87.6 - Hypokalemia Status: Acute Assessment and Plan: Potassium 2.9, gave 20meq but no change today still 2.9. Give 40meq today Mag 1.3<1.8. 400mg PO --Follow BMP, Mag, phos (12) Pericarditis: Code(s): I31.9 - Disease of pericardium, unspecified Status: Acute Assessment and Plan: Recent pericarditis, started on ibuprofen and colcicine 0.6mg BID and patient reports pain resolved --Holding NSAIDs for BUTCH/CKD --Holding colchine for GI symptoms --Start Prednisone 40mg in AM with a taper --Cardiology consult for recommendations Time Spent With Patient Time: 52 minutes Subjective Date/time seen: 09/12/24 18:20 Interval history: Creatinine trending down, improved slightly, 2.28. Potassium and magnesium low, repleting. Reports appetite improved today Generalized abdominal pain Last BM was normal per report Review of Systems Review of Systems: 12 systems were reviewed and are negative except for as per HPI. All systems reviewed & are unremarkable except as noted in HPI and below Exam Narrative: General: Acutely ill appearing, appears older than stated age. HEENT: normocephalic, atraumatic. Mucous membranes moist. EOMI, PERRLA, bilateral sclera anicteric, no conjunctival injection. Neck supple without JVD, lymphadenopathy, or bruit. Respiratory: clear to auscultation bilaterally. No rales/rhonic/wheezes. Cardiovascular: Regular rate and rhythm, normal S1-S2 upon auscultation. No murmurs, rubs, or clicks. PMI is nondisplaced, capillary refill less than 3 second. Abdomen: Soft, round, no pulsatile masses, TTP diffusely today. No rebound, no guarding. No CVA tenderness, no hepatosplenomegaly. Bowel sounds present to all four quadrants. Extremities: No cyanosis, clubbing, or edema present. Pulses are palpable 2/2. Active ROM to all four extremities. Neuro: Alert and orientated x 4. PERRLA. Cranial nerves 2-12 intact without focal deficit. Skin: Warm, dry, and intact, without rash, erythema, or lesion. Psych: pleasant, cooperative, normal speech, normal affect, no hallucinations, no dysarthia Objective Data Vital Signs Vital Signs: Vital Signs - 24 hr 09/11/24 12:00 09/11/24 16:00 09/11/24 20:00 Temperature 97.6 F 97.2 F L 96.9 F L Pulse Rate 88 82 77 Respiratory Rate 16 20 18 Blood Pressure 142/76 H 140/76 152/73 H Pulse Oximetry 98 98 98 Oxygen Delivery 09/11/24 20:00 09/11/24 20:00 09/11/24 23:44 Temperature 96.9 F L Pulse Rate 77 78 75 Respiratory Rate 18 16 Blood Pressure 128/64 Pulse Oximetry 98 99 Oxygen Delivery Room Air 09/12/24 00:00 09/12/24 04:00 09/12/24 04:00 Temperature 97.5 F L Pulse Rate 77 76 80 Respiratory Rate 14 Blood Pressure 149/76 H Pulse Oximetry 98 Oxygen Delivery 09/12/24 09:41 Temperature Pulse Rate 80 Respiratory Rate Blood Pressure Pulse Oximetry Oxygen Delivery Intake/Output Intake/Output: Intake & Output 09/09/24 09/10/24 09/11/24 09/12/24 23:59 23:59 23:59 23:59 Intake Total 3541.7 3833.8 1999 Balance 3541.7 3833.8 1999 Meds/Results Medications: Active Medications Generic Name Dose Route Start Last Admin Trade Name Freq PRN Reason Stop Dose Admin Acetaminophen 650 mg 09/07/24 08:19 09/09/24 09:29 Acetaminophen 325 Mg Tablet PO 650 mg Q4H PRN Administration Mild Pain (1-3) or Fever Hydrocodone Bitart/Acetaminophen 1 tab 09/07/24 08:19 Hydrocodone/Acetaminophen (*Crx) 5-325 Mg Tablet PO Q4H PRN Moderate Pain (4-6) Amlodipine Besylate 5 mg 09/07/24 09:00 09/12/24 09:41 Amlodipine Besylate 5 Mg Tablet PO 5 mg QAM [facility] Administration Apixaban 2.5 mg 09/07/24 09:30 09/12/24 09:40 Apixaban 2.5 Mg Tablet PO 2.5 mg Q12HR [facility] Administration Artificial Tears 1 drop 09/07/24 09:35 09/12/24 09:41 Artificial Tears Ophth Soln 15 Ml Bottle RIGHT EYE 1 drop Q12HR [facility] Administration Brimonidine Tartrate 1 drop 09/07/24 09:30 09/12/24 09:41 Brimonidine Tartrate 0.2% Op Soln 5 Ml Btl EACH EYE 1 drop Q12HR [facility] Administration Colchicine 0.6 mg 09/07/24 09:30 09/12/24 09:40 Colchicine 0.6 Mg Tablet PO 0.6 mg Q12HR [facility] Administration Dextrose 12.5 gm 09/07/24 09:15 Dextrose 50% 25 Gm/50 Ml Syringe IV PUSH PRN PRN Hypoglycemia Protocol Dorzolamide HCl 1 drop 09/07/24 09:30 09/12/24 09:41 Dorzolamide Hcl 2% Ophth Drops RIGHT EYE 1 drop Q12HR [facility] Administration Famotidine 20 mg 09/07/24 21:00 09/12/24 09:42 Famotidine 20 Mg/2 Ml Vial IV PUSH 20 mg Q12HR [facility] Administration Glucagon 1 mg 09/07/24 09:15 Glucagon For Inj 1 Mg Vial IM PRN PRN Hypoglycemia Protocol Glucose 15 gm 09/07/24 09:15 Glucose Oral Gel 15 Gm Of Glucse In 37.5 Gm Tube PO PRN PRN Hypoglycemia Protocol Hydralazine HCl 50 mg 09/07/24 13:00 09/12/24 05:42 Hydralazine Hcl 50 Mg Tablet PO 50 mg Q8HR [facility] Administration Dextrose 1,000 mls @ 100 mls/hr 09/07/24 09:15 Dextrose 5% 1,000 Ml IVPB PRN PRN Hypoglycemia Protocol Dextrose/Lactated Ringer's 1,000 mls @ 100 mls/hr 09/10/24 20:05 09/11/24 17:07 Dextrose 5%/Lactated Ringers IV CONT 100 mls/hr .Q10H [facility] Administration Insulin Aspart 2 - 5 units 09/07/24 12:00 09/12/24 05:42 Insulin Aspart (*Bkc) 100 Units/Ml SUB-Q Not Given Q6HR [facility] Protocol Loperamide HCl 2 mg 09/08/24 08:12 09/11/24 08:19 Loperamide Hcl 2 Mg Capsule PO 2 mg Q6HR PRN Administration Diarrhea Metoprolol Succinate 100 mg 09/07/24 09:00 09/12/24 09:41 Metoprolol Succinate Ext Rel 100 Mg Tabcr PO 100 mg QAM [facility] Administration Morphine Sulfate 2 mg 09/07/24 08:19 09/11/24 22:23 Morphine Sulfate (*Crx) 2 Mg/Ml Inj IV PUSH 2 mg Q4H PRN Administration Pain Rated 7-10 Naloxone HCl 0.1 mg 09/07/24 08:19 Naloxone Hcl 0.4 Mg/Ml Vial IV PUSH Q2M PRN Opiate Reversal Ondansetron HCl 4 mg 09/07/24 09:15 09/11/24 22:23 Ondansetron Inj 4 Mg/2 Ml Vial IV PUSH 4 mg Q6H PRN Administration Nausea And Vomiting Polysaccharide Iron Complex 150 mg 09/07/24 17:00 09/12/24 09:40 Polysaccharide Iron Complex 150 Mg Capsule PO 150 mg BIDWM [facility] Administration Rosuvastatin Calcium 5 mg 09/07/24 09:00 09/12/24 09:41 Rosuvastatin 5 Mg Tablet PO 5 mg QAM [facility] Administration Sodium Bicarbonate 1,300 mg 09/10/24 09:00 09/12/24 09:40 Sodium Bicarbonate Tab 650 Mg Tablet PO 1,300 mg TID [facility] Administration Sucralfate 1,000 mg 09/07/24 11:30 09/12/24 05:42 Sucralfate Susp 100 Mg/Ml 10 Ml Udc PO 1,000 mg ACHS [facility] Administration Timolol Maleate 1 drop 09/07/24 09:35 09/11/24 22:24 Timolol Maleate 0.5% Op Soln 5 Ml Bottle EACH EYE 1 drop Q12HR [facility] Administration Radiology Results: ITS Impressions Abdomen/Pelvis CT 09/07/24 05:37 Impression: Minimal bilateral pleural effusions. Horseshoe kidney. Chest X-Ray 09/07/24 06:11 Impression: Linear scarring or atelectasis at the lung bases, otherwise clear lungs. Labs Labs: Laboratory Results - last 24 hr 09/10/24 09/11/24 09/11/24 06:18 11:43 16:46 WBC RBC Hgb Hct MCV MCH MCHC RDW Plt Count MPV Immature Gran % (Auto) Neut % (Auto) Lymph % (Auto) [place] % (Auto) Eos % (Auto) Baso % (Auto) Lymph # (Auto) [place] # (Auto) Eos # (Auto) Baso # (Auto) Abs Immat Gran (auto) Absolute Neuts (auto) Absolute Nucleated RBC Nucleated RBC % Haptoglobin 97 Sodium Potassium Chloride Carbon Dioxide Anion Gap BUN Creatinine Estim Creat Clear Calc Estimated GFR Glucose POC Capillary Glucose 149 H 120 H Calcium Total Bilirubin AST ALT Alkaline Phosphatase Total Protein Albumin 09/11/24 09/11/24 09/12/24 20:55 23:46 01:14 WBC RBC Hgb Hct MCV MCH MCHC RDW Plt Count MPV Immature Gran % (Auto) Neut % (Auto) Lymph % (Auto) [place] % (Auto) Eos % (Auto) Baso % (Auto) Lymph # (Auto) [place] # (Auto) Eos # (Auto) Baso # (Auto) Abs Immat Gran (auto) Absolute Neuts (auto) Absolute Nucleated RBC Nucleated RBC % Haptoglobin Sodium Potassium Chloride Carbon Dioxide Anion Gap BUN Creatinine Estim Creat Clear Calc Estimated GFR Glucose POC Capillary Glucose 109 H 101 92 Calcium Total Bilirubin AST ALT Alkaline Phosphatase Total Protein Albumin 09/12/24 09/12/24 04:38 06:24 WBC 3.1 L RBC 2.80 L Hgb 7.5 L Hct 24.2 L MCV 86.4 MCH 26.8 MCHC 31.0 L RDW 15.8 H Plt Count 130 L MPV 12.5 H Immature Gran % (Auto) 2.3 H Neut % (Auto) 51.1 Lymph % (Auto) 27.0 [place] % (Auto) 18.6 H Eos % (Auto) 0.0 Baso % (Auto) 1.0 Lymph # (Auto) 0.83 L [place] # (Auto) 0.6 Eos # (Auto) 0.0 Baso # (Auto) 0.0 Abs Immat Gran (auto) 0.07 H Absolute Neuts (auto) 1.6 Absolute Nucleated RBC 0.000 Nucleated RBC % 0.0 Haptoglobin Sodium 142 Potassium 2.9 L Chloride 121 H Carbon Dioxide 17 L Anion Gap 4 BUN 29 H Creatinine 2.47 H Estim Creat Clear Calc 25 Estimated GFR 20 L Glucose 105 POC Capillary Glucose 104 Calcium 7.4 L Total Bilirubin 0.5 AST 60 H ALT 45 H Alkaline Phosphatase 185 H Total Protein 5.0 L Albumin 2.0 L Quality VTE Prophylaxis VTE prophylaxis: pharmacologic ordered Hospitalist MIPS Advance Care Plan I have confirmed that the patient's Advanced Care Plan is present, code status is documented, or surrogate decision maker is listed in patient medical record.: Yes Medication Reconciliation I have utilized all available resources to obtain, update and review the patients current medications (includes all prescriptions, OTC, herbals, cannabis, and nutritional supplements).: Yes
[2024-09-12 10:23] LABS: Magnesium 1.8 mg/dL (1.6-2.3); Phosphorus 2.7 mg/dL (2.5-4.5)
[2024-09-12] MEDS: POTASSIUM CHLORIDE INJ 40 MEQ in SODIUM CHLORIDE 0.9% IV 500 ML 130 MEQ IVPB (11:09)
[2024-09-12 11:58] LABS: Glucose Point of Care 113 mg/dl (65-105)
--- NOTE | 2024-09-12 14:07 | P.CONGI_ITS ---
Assessment and Plan Assessment and plan (1) Gastroenteritis: Code(s): K52.9 - Noninfective gastroenteritis and colitis, unspecified Status: Acute Assessment and Plan: The patient was recently discharged, three weeks ago, following a similar episode. During the previous hospitalization, she was diagnosed with pericarditis and a small pleural effusion, suspected to be of autoimmune origin. She was prescribed colchicine for that purpose. She has persistent proteinuria and renal impairment despite adequate volume repletion during this admission. Anemia, likely secondary to chronic disease including her underlying renal failure, was observed. Iron infusions were initiated during the previous hospitalization. Although antibiotics were not administered during the last admission, hospitalization itself increases the risk of C diff.. I recommend obtaining stool cultures for routine pathogens and testing for C. diff to investigate the possibility of recurrent diarrhea and her current state of generalized malaise. Mainly, colchicine which she is still taking can be frequently associated with diarrhea and also nausea and vomiting. I will also order a new set of iron studies to assess iron status and determine the need for further endoscopic evaluation. (2) Diarrhea: Code(s): R19.7 - Diarrhea, unspecified Status: Acute Plan - Stool culture, pathogen panel and C diff studies - Iron studies (Ferritin, Iron, TIBC) - consider holding colchicine por 4-5 days in coordination with cardiology GI Consult Note Consult date/time: 09/12/24 14:07 Reason for consult: Nausea and vomiting HPI: Arely Ernandez is a 63 year old female with history of hypertension, CKD, DM, atrial flutter on Eliquis presents to the emergency department on 09/07. Patient states she has been experiencing diarrhea and vomiting everytime she eats anything. She is reporting diffuse abdominal pain. She was recently admitted on 08/22/2024 for the same presentation and worsening her pre existing chronic renal failure ([id number] kidney failure). She was discharged on 08/26/2024 after admission which revealed BUTCH on CKD, pericardial effusion on CT a with diagnosis of pericarditis Review of Systems 2 Review of Systems: All systems reviewed & are unremarkable except as noted in HPI and below PMFSH Past Medical History Medical History Diabetes mellitus Chronic renal disease Anxiety Surgical History Surgical History History of appendectomy Family History Family History (Updated 09/07/24 @ 07:39 by Donald Fitzpatrick RN) Father Hypertension Diabetes mellitus Lymphoma Grandparent Diabetes mellitus Grandparent Diabetes mellitus Mother Pacemaker Social History Social History Smoking status: Former smoker Tobacco type: cigarettes Alcohol intake: former Substance use: former Substance use type: does not use Do You Feel Safe in your Home?: Yes Lack of Transportation: No Lack of Food: Never True Current Housing: I Have Housing Concerned About Future Housing: No Difficulty Paying Gas/Electric Bills: No Difficulty Paying for Meds: No Currently Unemployed: No Education: High School Diploma/GED Difficulty w/ Childcare or Family Care: No Spiritual care concerns: No Meds Home Medications and Allergies Home Medications ?Medication ?Instructions ?Recorded ?Confirmed ?Type amlodipine 5 mg tablet 5 mg PO QAM 08/22/24 09/07/24 History brimonidine 0.2 % eye drops 1 drp EACH EYE BID 08/22/24 09/07/24 History cholecalciferol (vitamin D3) 50 50 mcg PO QAM 08/22/24 09/07/24 History mcg (2,000 unit) tablet (D3 DOTS) dorzolamide 2 % eye drops 1 drp RIGHT EYE BID 08/22/24 09/07/24 History ferrous sulfate 325 mg (65 mg 325 mg PO QAM 08/22/24 09/07/24 History iron) tablet (FeroSul) hydralazine 50 mg tablet 50 mg PO TID 08/22/24 09/07/24 History metoprolol succinate 100 mg 100 mg PO QAM 08/22/24 09/07/24 History tablet,extended release 24 hr polyvinyl alcohol-povidone 0.5 1 drp RIGHT EYE BID 08/22/24 09/07/24 History %-0.6 % eye drops (Artificial Tears (polyvinyl alcohol/povidone)) rosuvastatin 5 mg tablet 5 mg PO QAM 08/22/24 09/07/24 History sodium bicarbonate 650 mg tablet 650 mg PO TID 08/22/24 09/07/24 History timolol maleate 0.5 % eye drops 1 drp EACH EYE BID 08/22/24 09/07/24 History apixaban 2.5 mg tablet (Eliquis) 2.5 mg PO BID #60 tabs 08/26/24 09/07/24 Rx blood-glucose meter,continuous #1 ea 08/26/24 09/10/24 Rx (Dexcom G6 Inspector Fibrous Wallboard) blood-glucose sensor (Dexcom G6 #3 ea 08/26/24 09/10/24 Rx Sensor device) blood-glucose transmitter (Dexcom #1 ea 08/26/24 09/10/24 Rx G6 Transmitter device) colchicine 0.6 mg tablet (Colcrys) 0.6 mg PO Q12HR #120 tabs 08/26/24 09/07/24 Rx ibuprofen 600 mg tablet 600 mg PO TID #30 tabs 08/26/24 09/07/24 Rx Allergies Allergy/AdvReac Type Severity Reaction Status Date / Time Penicillins Allergy Unknown Unknown Verified 09/07/24 06:30 coconut Allergy Hives Verified 09/07/24 06:30 Vital Signs Vital Signs - 24 hr 09/11/24 16:00 09/11/24 20:00 09/11/24 20:00 Temperature 97.2 F L 96.9 F L Pulse Rate 82 77 77 Respiratory Rate 20 18 18 Blood Pressure 140/76 152/73 H Pulse Oximetry 98 98 98 Oxygen Delivery Room Air 09/11/24 20:00 09/11/24 23:44 09/12/24 00:00 Temperature 96.9 F L Pulse Rate 78 75 77 Respiratory Rate 16 Blood Pressure 128/64 Pulse Oximetry 99 Oxygen Delivery 09/12/24 04:00 09/12/24 04:00 09/12/24 08:00 Temperature 97.5 F L 97.1 F L Pulse Rate 76 80 85 Respiratory Rate 14 15 Blood Pressure 149/76 H 145/72 H Pulse Oximetry 98 99 Oxygen Delivery 09/12/24 08:00 09/12/24 08:00 09/12/24 09:41 Temperature Pulse Rate 85 80 Respiratory Rate Blood Pressure Pulse Oximetry Oxygen Delivery Room Air Exam 2 Narrative: Alert oriented, cooperative, looks chronically ill. Not jaundiced. Lungs: Decreased breath sounds in both bases. Abdomen: Soft, nontender, Normal bowel sounds,no organomegaly, no masses, not tender. Results Labs 09/12/24 06:24 09/12/24 06:24 Labs: Short CBC 09/12/24 Range/Units 06:24 WBC 3.1 L (4.5-10.0) K/mm3 Hgb 7.5 L (12.0-15.0) g/dL Hct 24.2 L (37.0-47.0) % Plt Count 130 L (150-375) k/mm3 BMP 09/12/24 06:24 Sodium 142 Potassium 2.9 L Chloride 121 H Carbon Dioxide 17 L BUN 29 H Creatinine 2.47 H Glucose 105 Calcium 7.4 L Liver Function 09/12/24 Range/Units 06:24 Total Bilirubin 0.5 (0.2-1.3) mg/dL AST 60 H (14-36) U/L ALT 45 H (6-35) U/L Alkaline Phosphatase 185 H (38-126) U/L Albumin 2.0 L (3.5-5.1) g/dL
[2024-09-12 14:48] LABS: Iron 36 ug/dL (37-170)
[2024-09-12 14:58] LABS: Percent Iron Saturation 22 % (20-50)
--- NOTE | 2024-09-12 15:49 | PC.NURSE ---
RN and tech attempted numerous of time to get a stool sample but pts states that she doesn't know when she has to have a bm. Pt has been having multiple bms during shift.
[2024-09-12] MEDS: DEXTROSE 5%/LACTATED RINGERS 1,000 ML 100 ML IV CONT (16:07)
[2024-09-12 22:06] LABS: Glucose Point of Care 134 mg/dl (65-105)
[2024-09-12] MEDS: ONDANSETRON INJ 4 MG/2 ML VIAL IV PUSH (22:09)
[2024-09-12] MEDS: HYDROcodone/acetaminophen (*CRX) 5-325 MG TABLET 1 TAB PO (22:09)
[2024-09-12] MEDS: MAGNESIUM OXIDE 400 MG TABLET PO (22:09)
[2024-09-12 23:59] LABS: Glucose Point of Care 126 mg/dl (65-105)
[2024-09-13] VITALS (7 sets, daily range): BP systolic 117–155; BP diastolic 59–82; PULSE 76–88; RESP 14–20; TEMP 36.1–37.4; O2SAT 97–100
[2024-09-13] MEDS: DEXTROSE 5%/LACTATED RINGERS 1,000 ML 100 ML IV CONT ×3 (02:38→23:55)
[2024-09-13 05:09] LABS: Add Urine Microscopic? YES; Appearance Urine Turbid (Clear); Bacteria Urine 4+ /hpf; Bilirubin Urine Negative (Negative); Blood Urine Negative (Negative); Color Urine Yellow (Yellow); Glucose Urine UA Negative (Negative); Ketones Urine Negative (Negative); Leukocyte Esterase Ur 2+ LEU/UL (Negative); Nitrate Urine Negative (Negative); Protein Urine 3+ mg/dL (Negative); Specific Grav Ur 1.012 (1.001-1.035); Squamous Epithelial Cell Urine None Seen /hpf (Few); Urobilinogen Urine 0.2 mg/dL (<2.0); WBC Urine >100 /hpf (0-3); pH Urine 5.5 (5.0-9.0)
[2024-09-13 05:11] LABS: Glucose Point of Care 110 mg/dl (65-105)
[2024-09-13 05:12] LABS: Creatinine Urine 63.9 mg/dL
[2024-09-13 05:18] LABS: Total Protein Urine Random 398 mg/dL; Ur Ttl Prot Creatinine Ratio 6.23 mg/mg (0-0.20)
[2024-09-13] MEDS: SUCRALFATE SUSP 100 MG/ML 10 ML UDC 1000 MG PO ×3 (05:58→22:25)
[2024-09-13] MEDS: hydrALAZINE HCL 50 MG TABLET PO ×3 (05:58→22:26)
[2024-09-13 07:41] LABS: Basophils Percent Auto 0.6 % (0.2-1.2); Eosinophils Percent Auto 0.3 % (0-4.4); Hematocrit 24.7 % (37.0-47.0); Hemoglobin 7.6 g/dL (12.0-15.0); Immature Granulocyte Absolute 0.11 K/mm3 (0.00-0.031); Immature Granulocyte Percent A 3.1 % (0-0.5); Lymphocytes Absolute Auto 1.02 K/mm3 (0.9-3.2); Lymphocytes Percent Auto 29.1 % (18.3-44.2); Mean Corpuscular HGB Conc 30.8 g/dl (32-36); Mean Corpuscular Hemoglobin 26.9 pg (26-34); Mean Corpuscular Volume 87.3 fl (80-100); Mean Platelet Volume 12.6 fl (7.4-10.4); Monocytes Absolute Auto 0.6 K/mm3 (0.1-0.6); Monocytes Percent Auto 17.7 % (2.6-8.5); Neutrophils Absolute Auto 1.7 K/mm3 (1.3-6.7); Neutrophils Percent Auto 49.2 % (45.5-73.1); Platelet Count Result 147 k/mm3 (150-375); Red Blood Count 2.83 M/mm3 (4.2-5.4); Red Cell Distribution Width 16.5 % (11.5-14.5); White Blood Count 3.5 K/mm3 (4.5-10.0)
[2024-09-13 07:48] LABS: Alanine Aminotransferase 41 U/L (6-35); Alkaline Phosphatase 177 U/L (38-126); Anion Gap 5 mmol/L (4-12); Aspartate Amino Transferase 51 U/L (14-36); Bilirubin,Total 0.5 mg/dL (0.2-1.3); Blood Urea Nitrogen 29 mg/dL (7-17); Calcium 7.6 mg/dL (8.4-10.2); Carbon Dioxide 17 mmol/L (22-30); Chloride 119 mmol/L (98-107); Estimated CRCL calculation 25 ml/min; Estimated Glomerular Filt Rate 20; Glucose 119 mg/dL (65-110); Potassium 3.2 mmol/L (3.4-5.0); Sodium 141 mmol/L (137-145)
[2024-09-13 08:16] LABS: Glucose Point of Care 119 mg/dl (65-105)
--- NOTE | 2024-09-13 08:47 | WPDGIPROGNO ---
Progress Note: A&P Assessment and Plan (1) Gastroenteritis: Code(s): K52.9 - Noninfective gastroenteritis and colitis, unspecified Status: Acute Assessment and Plan: the patient's diarrhea seems to be multifactorial, gastroenteritis which is self-limited, and an important contributing factor of colchicine which was discontinued yesterday. With advance diet as tolerated and if she continues to improve, can be discharged tomorrow. (2) Diarrhea: Code(s): R19.7 - Diarrhea, unspecified Status: Acute Time Spent With Patient Time with patient: less than 15 minutes Subjective Date/time seen: 09/13/24 08:47 Interval history: The patient feels Much better, less nausea. She had only a few bowel movements yesterday, scant amounts, not able to collect sample. Objective Data Vital Signs Vital Signs: Vital Signs - 24 hr 09/12/24 09:41 09/12/24 12:00 09/12/24 15:25 Temperature 97.5 F L Pulse Rate 80 76 83 Respiratory Rate 15 Blood Pressure 116/84 Pulse Oximetry 93 Oxygen Delivery 09/12/24 16:00 09/12/24 19:45 09/12/24 20:00 Temperature 97.1 F L Pulse Rate 76 76 76 Respiratory Rate 14 14 Blood Pressure 151/68 H Pulse Oximetry 99 99 Oxygen Delivery Room Air 09/12/24 20:00 09/13/24 00:00 09/13/24 00:00 Temperature 97.5 F L Pulse Rate 78 77 77 Respiratory Rate 14 Blood Pressure 138/64 Pulse Oximetry 99 Oxygen Delivery 09/13/24 04:00 09/13/24 04:00 Temperature 98.7 F Pulse Rate 76 76 Respiratory Rate 14 Blood Pressure 150/68 H Pulse Oximetry 99 Oxygen Delivery Intake/Output Intake/Output: Intake & Output 09/10/24 09/11/24 09/12/24 09/13/24 23:59 23:59 23:59 23:59 Intake Total 3833.8 1999 1238 1000 Balance 3833.8 1999 1238 1000 Meds/Results Medications: Active Medications Generic Name Dose Route Start Last Admin Trade Name Freq PRN Reason Stop Dose Admin Acetaminophen 650 mg 09/07/24 08:19 09/09/24 09:29 Acetaminophen 325 Mg Tablet PO 650 mg Q4H PRN Administration Mild Pain (1-3) or Fever Hydrocodone Bitart/Acetaminophen 1 tab 09/07/24 08:19 09/12/24 22:09 Hydrocodone/Acetaminophen (*Crx) 5-325 Mg Tablet PO 1 tab Q4H PRN Administration Moderate Pain (4-6) Amlodipine Besylate 5 mg 09/07/24 09:00 09/12/24 09:41 Amlodipine Besylate 5 Mg Tablet PO 5 mg QAM NAHOMI Administration Apixaban 2.5 mg 09/07/24 09:30 09/12/24 22:08 Apixaban 2.5 Mg Tablet PO 2.5 mg Q12HR NAHOMI Administration Artificial Tears 1 drop 09/07/24 09:35 09/12/24 22:08 Artificial Tears Ophth Soln 15 Ml Bottle RIGHT EYE 1 drop Q12HR NAHOMI Administration Brimonidine Tartrate 1 drop 09/07/24 09:30 09/12/24 22:08 Brimonidine Tartrate 0.2% Op Soln 5 Ml Btl EACH EYE 1 drop Q12HR NAHOMI Administration Dextrose 12.5 gm 09/07/24 09:15 Dextrose 50% 25 Gm/50 Ml Syringe IV PUSH PRN PRN Hypoglycemia Protocol Dorzolamide HCl 1 drop 09/07/24 09:30 09/12/24 22:08 Dorzolamide Hcl 2% Ophth Drops RIGHT EYE 1 drop Q12HR NAHOMI Administration Famotidine 20 mg 09/07/24 21:00 09/12/24 22:09 Famotidine 20 Mg/2 Ml Vial IV PUSH 20 mg Q12HR NAHOMI Administration Glucagon 1 mg 09/07/24 09:15 Glucagon For Inj 1 Mg Vial IM PRN PRN Hypoglycemia Protocol Glucose 15 gm 09/07/24 09:15 Glucose Oral Gel 15 Gm Of Glucse In 37.5 Gm Tube PO PRN PRN Hypoglycemia Protocol Hydralazine HCl 50 mg 09/07/24 13:00 09/13/24 05:58 Hydralazine Hcl 50 Mg Tablet PO 50 mg Q8HR NAHOMI Administration Dextrose 1,000 mls @ 100 mls/hr 09/07/24 09:15 Dextrose 5% 1,000 Ml IVPB PRN PRN Hypoglycemia Protocol Dextrose/Lactated Ringer's 1,000 mls @ 100 mls/hr 09/10/24 20:05 09/13/24 02:38 Dextrose 5%/Lactated Ringers IV CONT 100 mls/hr .Q10H NAHOMI Administration Ceftriaxone Sodium 1 gm in 50 mls @ 100 mls/hr 09/13/24 07:00 09/13/24 06:59 Rocephin 1 Gm/Ns 50 Ml IVPB 100 mls/hr Q24H NAHOMI Administration Insulin Aspart 2 - 5 units 09/07/24 12:00 09/13/24 05:58 Insulin Aspart (*Bkc) 100 Units/Ml SUB-Q Not Given Q6HR [facility] Protocol Loperamide HCl 2 mg 09/08/24 08:12 09/11/24 08:19 Loperamide Hcl 2 Mg Capsule PO 2 mg Q6HR PRN Administration Diarrhea Metoprolol Succinate 100 mg 09/07/24 09:00 09/12/24 09:41 Metoprolol Succinate Ext Rel 100 Mg Tabcr PO 100 mg QAM NAHOMI Administration Morphine Sulfate 2 mg 09/07/24 08:19 09/11/24 22:23 Morphine Sulfate (*Crx) 2 Mg/Ml Inj IV PUSH 2 mg Q4H PRN Administration Pain Rated 7-10 Naloxone HCl 0.1 mg 09/07/24 08:19 Naloxone Hcl 0.4 Mg/Ml Vial IV PUSH Q2M PRN Opiate Reversal Ondansetron HCl 4 mg 09/07/24 09:15 09/12/24 22:09 Ondansetron Inj 4 Mg/2 Ml Vial IV PUSH 4 mg Q6H PRN Administration Nausea And Vomiting Polysaccharide Iron Complex 150 mg 09/07/24 17:00 09/12/24 18:12 Polysaccharide Iron Complex 150 Mg Capsule PO 150 mg BIDWM [facility] Administration Prednisone 40 mg 09/13/24 08:00 Prednisone 20 Mg Tablet PO DAILY@0800 [facility] Rosuvastatin Calcium 5 mg 09/07/24 09:00 09/12/24 09:41 Rosuvastatin 5 Mg Tablet PO 5 mg QAM [facility] Administration Sodium Bicarbonate 1,300 mg 09/10/24 09:00 09/12/24 18:13 Sodium Bicarbonate Tab 650 Mg Tablet PO 1,300 mg TID [facility] Administration Sucralfate 1,000 mg 09/07/24 11:30 09/13/24 05:58 Sucralfate Susp 100 Mg/Ml 10 Ml Udc PO 1,000 mg ACHS [facility] Administration Timolol Maleate 1 drop 09/07/24 09:35 09/12/24 22:08 Timolol Maleate 0.5% Op Soln 5 Ml Bottle EACH EYE 1 drop Q12HR NAHOMI Administration Radiology Results: ITS Impressions Abdomen/Pelvis CT 09/07/24 05:37 Impression: Minimal bilateral pleural effusions. Horseshoe kidney. Chest X-Ray 09/07/24 06:11 Impression: Linear scarring or atelectasis at the lung bases, otherwise clear lungs. Labs Labs: Laboratory Results - last 24 hr 09/12/24 09/12/24 09/12/24 06:19 06:24 11:56 WBC RBC Hgb Hct MCV MCH MCHC RDW Plt Count MPV Immature Gran % (Auto) Neut % (Auto) Lymph % (Auto) [place] % (Auto) Eos % (Auto) Baso % (Auto) Lymph # (Auto) [place] # (Auto) Eos # (Auto) Baso # (Auto) Abs Immat Gran (auto) Absolute Neuts (auto) Absolute Nucleated RBC Nucleated RBC % Sodium Potassium Chloride Carbon Dioxide Anion Gap BUN Creatinine Estim Creat Clear Calc Estimated GFR Glucose POC Capillary Glucose 113 H Calcium Phosphorus 2.7 Magnesium 1.8 Iron 36 L TIBC 161 L % Saturation 22 Total Bilirubin AST ALT Alkaline Phosphatase Total Protein Albumin Urine Color Urine Appearance Urine pH Ur Specific Trail Urine Protein Urine Glucose (UA) Urine Ketones Ur Blood (Man) Urine Nitrate Urine Bilirubin Urine Urobilinogen Leukocyte Esterase Rfl Urine RBC Urine WBC Ur Squamous Epith Cells Urine Bacteria Urine Casts U Random Total Protein Urine Creatinine Protein/Creat Ratio 2 09/12/24 09/12/24 09/13/24 19:49 23:56 04:29 WBC RBC Hgb Hct MCV MCH MCHC RDW Plt Count MPV Immature Gran % (Auto) Neut % (Auto) Lymph % (Auto) [place] % (Auto) Eos % (Auto) Baso % (Auto) Lymph # (Auto) [place] # (Auto) Eos # (Auto) Baso # (Auto) Abs Immat Gran (auto) Absolute Neuts (auto) Absolute Nucleated RBC Nucleated RBC % Sodium Potassium Chloride Carbon Dioxide Anion Gap BUN Creatinine Estim Creat Clear Calc Estimated GFR Glucose POC Capillary Glucose 134 H 126 H 110 H Calcium Phosphorus Magnesium Iron TIBC % Saturation Total Bilirubin AST ALT Alkaline Phosphatase Total Protein Albumin Urine Color Urine Appearance Urine pH Ur Specific Trail Urine Protein Urine Glucose (UA) Urine Ketones Ur Blood (Man) Urine Nitrate Urine Bilirubin Urine Urobilinogen Leukocyte Esterase Rfl Urine RBC Urine WBC Ur Squamous Epith Cells Urine Bacteria Urine Casts U Random Total Protein Urine Creatinine Protein/Creat Ratio 2 09/13/24 09/13/24 09/13/24 04:41 06:50 08:08 WBC 3.5 L RBC 2.83 L Hgb 7.6 L Hct 24.7 L MCV 87.3 MCH 26.9 MCHC 30.8 L RDW 16.5 H Plt Count 147 L MPV 12.6 H Immature Gran % (Auto) 3.1 H Neut % (Auto) 49.2 Lymph % (Auto) 29.1 [place] % (Auto) 17.7 H Eos % (Auto) 0.3 Baso % (Auto) 0.6 Lymph # (Auto) 1.02 [place] # (Auto) 0.6 Eos # (Auto) 0.0 Baso # (Auto) 0.0 Abs Immat Gran (auto) 0.11 H Absolute Neuts (auto) 1.7 Absolute Nucleated RBC 0.000 Nucleated RBC % 0.0 Sodium 141 Potassium 3.2 L Chloride 119 H Carbon Dioxide 17 L Anion Gap 5 BUN 29 H Creatinine 2.50 H Estim Creat Clear Calc 25 Estimated GFR 20 L Glucose 119 H POC Capillary Glucose 119 H Calcium 7.6 L Phosphorus Magnesium Iron TIBC % Saturation Total Bilirubin 0.5 AST 51 H ALT 41 H Alkaline Phosphatase 177 H Total Protein 5.0 L Albumin 2.0 L Urine Color Yellow Urine Appearance Turbid H Urine pH 5.[address] 1.012 Urine Protein 3+ H Urine Glucose (UA) Negative Urine Ketones Negative Ur Blood (Man) Negative Urine Nitrate Negative Urine Bilirubin Negative Urine Urobilinogen 0.2 Leukocyte Esterase Rfl 2+ H Urine RBC 3-5 H Urine WBC >100 H Ur Squamous Epith Cells None seen Urine Bacteria 4+ Urine Casts 3-5 U Random Total Protein 398 Urine Creatinine 63.9 Protein/Creat Ratio 2 6.23 H
[2024-09-13] MEDS: predniSONE 20 MG TABLET 40 MG PO (09:32)
[2024-09-13] MEDS: POLYSACCHARIDE IRON COMPLEX 150 MG CAPSULE PO ×2 (09:32→18:45)
[2024-09-13] MEDS: SODIUM BICARBONATE TAB 650 MG TABLET 1300 MG PO ×3 (09:32→18:38)
[2024-09-13] MEDS: METOPROLOL SUCCINATE EXT REL 100 MG TABCR PO (09:32)
[2024-09-13] MEDS: ROSUVASTATIN 5 MG TABLET PO (09:32)
[2024-09-13] MEDS: amLODIPine BESYLATE 5 MG TABLET PO (09:32)
[2024-09-13] MEDS: APIXABAN 2.5 MG TABLET PO ×2 (09:32→22:26)
[2024-09-13] MEDS: ARTIFICIAL TEARS OPHTH SOLN 15 ML BOTTLE 1 DROP RIGHT EYE ×2 (09:32→22:26)
[2024-09-13] MEDS: BRIMONIDINE TARTRATE 0.2% OP SOLN 5 ML BTL 1 DROP EACH EYE ×2 (09:33→22:27)
[2024-09-13] MEDS: TIMOLOL MALEATE 0.5% OP SOLN 5 ML BOTTLE 1 DROP EACH EYE ×2 (09:33→22:26)
[2024-09-13] MEDS: DORZOLAMIDE HCL 2% OPHTH DROPS 1 DROP RIGHT EYE ×2 (09:33→22:26)
[2024-09-13] MEDS: ONDANSETRON INJ 4 MG/2 ML VIAL IV PUSH ×2 (09:38→14:52)
[2024-09-13] MEDS: FAMOTIDINE 20 MG/2 ML VIAL IV PUSH ×2 (09:38→22:26)
[2024-09-13] MEDS: LOPERAMIDE HCL 2 MG CAPSULE PO ×2 (09:38→18:38)
--- NOTE | 2024-09-13 10:03 | PCNFU ---
Addendum entered by Savanna Coyne RD, LDN 09/13/24 13:17: Noted intakes from the last two days were poor. Orders for a calorie count to be put in place. Will put calorie count in place and monitor. Original Note: Nutrition Follow-Up Complete: suboptimal po intake related to reduced appetite as evidenced by pt report and charted intake Goal:PO intake 50% or greater Pt progressing towards goal, new goal for 75% intake of meals Pt current nutrition is Regular, Ensure compact BID. Nutrition recommendation: continue with current plan of care Last recorded weight is 93.2 kg. Bowel Motility: +BM 09/12 - normal Labs Reviewed: Hgb:7.8, HCT:24.6, Alb:2.2, K:3.3, GFR:21, BUN:32, Cr:2.34 Meds Noted: insulin, prednisone Skin: WNL Additional Notes: Pt on a regular diet, intake improving from 20-100% at times, BM are more formed, tolerating diet well. Encourage good po intake Monitor intake, wt, labs. Follow up in 5 days.
[2024-09-13 12:15] LABS: Glucose Point of Care 183 mg/dl (65-105)
--- NOTE | 2024-09-13 12:51 | P.PNIM_ITS ---
Progress Note: A&P Assessment and Plan (1) BUTCH (acute kidney injury): Code(s): N17.9 - Acute kidney failure, unspecified Status: Acute Assessment and Plan: CKD stage 4. Creatinine 4.21 on admission, improving with fluids. Complicated by signficant hypokalemia and hypomagnesemia as noted CO2 15 about the same hold nephrotoxic medications IV fluids for hydration * Creatinine improving 4.21>3.13>2.63>2.34>2.28 * Nephrology consulted, appreciate recommendations: ruling out de agata glomerulonephritis * Avoid nephrotoxins * continue sodium bicarb tabs * Continue fluids * UA pending * Repleting mag and phos * Monitor on telemetry 09/13/24: * Creatinine at baseline. * She appears euvolemic. * Continue to provide IVF as pt is not taking in oral nutrition well. (2) Enteritis: Code(s): K52.9 - Noninfective gastroenteritis and colitis, unspecified Status: Acute Assessment and Plan: nausea and vomiting improving. Intermittently tolerating a diet. Said she only had a cracker today, emesis x1 * Carafate with meals, pepcid. Change to PPI after stool for H pylori sent * Fluids and antiemetics * GI consulted, appreciate recommendations * Check Stool for H pylori, stool for C-diff * Holding colchicine 09/13/24: * GI continues to follow. * C-diff negative. * Stool for H.pylori ordered and pending. (3) Atrial fibrillation: Code(s): I48.91 - Unspecified atrial fibrillation Status: Acute Assessment and Plan: continue Eliquis and Crestor (4) Diarrhea: Code(s): R19.7 - Diarrhea, unspecified Status: Acute Assessment and Plan: improving. 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 * Continue hypoglycemic protocol * Continue SSI * Continue Diabetic diet * Starting steroids, monitor blood sugars (6) Anemia: Code(s): D64.9 - Anemia, unspecified Status: Acute Assessment and Plan: Baseline H&H 04/18.7. 06/24.9 on admission in the setting of dehydration. Occult blood of stool was obtained and is negative. * H&H stable, 7.8/35.1-8.2/26 in the last few days. 04/18 today. * Anemia likely due to degree of renal disease. * Follow CBC * Pancytopenia, may be viral (7) Hypertension: Code(s): I10 - Essential (primary) hypertension Status: Chronic Assessment and Plan: Home meds: Hydralazine 50mg TID, Metoprolol 100mg ER, Amlodipine 5mg * Blood pressure controlled * Continue home antihypertensives (8) Retinal detachment: Code(s): H33.20 - Serous retinal detachment, unspecified eye Status: Chronic Assessment and Plan: patient has right eye detachment, and cataracts * Safety precautions due to low eyesight. * continue home eye drops (9) Pleural effusion: Code(s): J90 - Pleural effusion, not elsewhere classified Status: Chronic Assessment and Plan: stable from earlier this month no SOB (10) Failure to thrive: Status: Acute Assessment and Plan: No s/s of overt malnutrition present. * PT OT evaluate and treat * Follow PO intake * Phosphorus Processing Supervisor consult, may need a calorie count 09/13/24: * Calorie count ordered as pt is not eating. * Daily weight. (11) Hypokalemia: Code(s): E87.6 - Hypokalemia Status: Acute Assessment and Plan: Potassium 2.9, gave 20meq but no change today still 2.9. Give 40meq today Mag 1.3<1.8. 400mg PO --Follow BMP, Mag, phos (12) Pericarditis: Code(s): I31.9 - Disease of pericardium, unspecified Status: Acute Assessment and Plan: Recent pericarditis, started on ibuprofen and colcicine 0.6mg BID and patient reports pain resolved --Holding NSAIDs for BUTCH/CKD --Holding colchine for GI symptoms --Start Prednisone 40mg in AM with a taper --Cardiology consult for recommendations Time Spent With Patient Time with patient: 15 - 25 minutes Subjective Date/time seen: 09/13/24 1015 Interval history: This pt was examined at the bedside today in interval assessment. She is sitting up in the chair today and appears very weak and tired. She has not had any further vomiting, but she also has not eaten nor had any po intake of fluids to sustain in the past forty eight hours. OT approached me and told me that she was very shaky and unsteady walking to the bathroom today. Pt endorses that her appetite is not existant and that nothing tastes good to her. GI note states that pt could probably discharge tomorrow, but I have great reservations about her safety if she does as PT notes states she has made minimal progress towards her goals. Her Colchicine was discontinued yesterday that she was taking for her recently dx'd Pericarditis during her last admission. GI is of the opinion that contributed to her sx's of N/V/D. We are currently awaiting a consult with Cardiology to see if anything needs to be substituted mcfp. Review of Systems Review of Systems: All systems reviewed & are unremarkable except as noted in HPI and below Exam Narrative: General: Acutely ill appearing, appears older than stated age, sitting up in the chair at this time. HEENT: normocephalic, atraumatic. Mucous membranes dry. Neck supple without JVD, lymphadenopathy, or bruit. Respiratory: clear to auscultation bilaterally. No rales/rhonic/wheezes. Cardiovascular: Regular rate and rhythm, normal S1-S2 upon auscultation. No murmurs, rubs, or clicks. PMI is nondisplaced, capillary refill less than 3 second. Abdomen: Soft, round, no pulsatile masses, She continues to report diffuse TTP. No rebound, no guarding. No CVA tenderness, no hepatosplenomegaly. Bowel sounds present to all four quadrants. Extremities: No cyanosis, clubbing, or edema present. Pulses are palpable 2/2. Active ROM to all four extremities. Neuro: Alert and orientated x 4. PERRLA. Cranial nerves 2-12 intact without f ocal deficit. Skin: Warm, dry, and intact, without rash, erythema, or lesion. Psych: pleasant, cooperative, normal speech, flatl affect, no hallucinations, no dysarthia Objective Data Vital Signs Vital Signs: Vital Signs - 24 hr 09/12/24 15:25 09/12/24 16:00 09/12/24 19:45 Temperature 97.5 F L 97.1 F L Pulse Rate 83 76 76 Respiratory Rate 15 14 Blood Pressure 116/84 151/68 H Pulse Oximetry 93 99 Oxygen Delivery 09/12/24 20:00 09/12/24 20:00 09/13/24 00:00 Temperature Pulse Rate 76 78 77 Respiratory Rate 14 Blood Pressure Pulse Oximetry 99 Oxygen Delivery Room Air 09/13/24 00:00 09/13/24 04:00 09/13/24 04:00 Temperature 97.5 F L 98.7 F Pulse Rate 77 76 76 Respiratory Rate 14 14 Blood Pressure 138/64 150/68 H Pulse Oximetry 99 99 Oxygen Delivery 09/13/24 08:00 Temperature 99.3 F Pulse Rate 83 Respiratory Rate 15 Blood Pressure 117/61 Pulse Oximetry 100 Oxygen Delivery Intake/Output Intake/Output: Intake & Output 09/10/24 09/11/24 09/12/24 09/13/24 23:59 23:59 23:59 23:59 Intake Total 3833.8 1999 1238 1620 Balance 3833.8 1999 1238 1620 Meds/Results Medications: Active Medications Generic Name Dose Route Start Last Admin Trade Name Freq PRN Reason Stop Dose Admin Acetaminophen 650 mg 09/07/24 08:19 09/09/24 09:29 Acetaminophen 325 Mg Tablet PO 650 mg Q4H PRN Administration Mild Pain (1-3) or Fever Hydrocodone Bitart/Acetaminophen 1 tab 09/07/24 08:19 09/12/24 22:09 Hydrocodone/Acetaminophen (*Crx) 5-325 Mg Tablet PO 1 tab Q4H PRN Administration Moderate Pain (4-6) Amlodipine Besylate 5 mg 09/07/24 09:00 09/13/24 09:32 Amlodipine Besylate 5 Mg Tablet PO 5 mg QAM NAHOMI Administration Apixaban 2.5 mg 09/07/24 09:30 09/13/24 09:32 Apixaban 2.5 Mg Tablet PO 2.5 mg Q12HR NAHOMI Administration Artificial Tears 1 drop 09/07/24 09:35 09/13/24 09:32 Artificial Tears Ophth Soln 15 Ml Bottle RIGHT EYE 1 drop Q12HR NAHOMI Administration Brimonidine Tartrate 1 drop 09/07/24 09:30 09/13/24 09:33 Brimonidine Tartrate 0.2% Op Soln 5 Ml Btl EACH EYE 1 drop Q12HR NAHOMI Administration Dextrose 12.5 gm 09/07/24 09:15 Dextrose 50% 25 Gm/50 Ml Syringe IV PUSH PRN PRN Hypoglycemia Protocol Dorzolamide HCl 1 drop 09/07/24 09:30 09/13/24 09:33 Dorzolamide Hcl 2% Ophth Drops RIGHT EYE 1 drop Q12HR NAHOMI Administration Famotidine 20 mg 09/07/24 21:00 09/13/24 09:38 Famotidine 20 Mg/2 Ml Vial IV PUSH 20 mg Q12HR NAHOMI Administration Glucagon 1 mg 09/07/24 09:15 Glucagon For Inj 1 Mg Vial IM PRN PRN Hypoglycemia Protocol Glucose 15 gm 09/07/24 09:15 Glucose Oral Gel 15 Gm Of Glucse In 37.5 Gm Tube PO PRN PRN Hypoglycemia Protocol Hydralazine HCl 50 mg 09/07/24 13:00 09/13/24 05:58 Hydralazine Hcl 50 Mg Tablet PO 50 mg Q8HR NAHOMI Administration Dextrose 1,000 mls @ 100 mls/hr 09/07/24 09:15 Dextrose 5% 1,000 Ml IVPB PRN PRN Hypoglycemia Protocol Dextrose/Lactated Ringer's 1,000 mls @ 100 mls/hr 09/10/24 20:05 09/13/24 02:38 Dextrose 5%/Lactated Ringers IV CONT 100 mls/hr .Q10H NAHOMI Administration Ceftriaxone Sodium 1 gm in 50 mls @ 100 mls/hr 09/13/24 07:00 09/13/24 06:59 Rocephin 1 Gm/Ns 50 Ml IVPB 100 mls/hr Q24H NAHOMI Administration Insulin Aspart 2 - 5 units 09/07/24 12:00 09/13/24 05:58 Insulin Aspart (*Bkc) 100 Units/Ml SUB-Q Not Given Q6HR NAHOMI Protocol Loperamide HCl 2 mg 09/08/24 08:12 09/13/24 09:38 Loperamide Hcl 2 Mg Capsule PO 2 mg Q6HR PRN Administration Diarrhea Metoprolol Succinate 100 mg 09/07/24 09:00 09/13/24 09:32 Metoprolol Succinate Ext Rel 100 Mg Tabcr PO 100 mg QAM NAHOMI Administration Morphine Sulfate 2 mg 09/07/24 08:19 09/11/24 22:23 Morphine Sulfate (*Crx) 2 Mg/Ml Inj IV PUSH 2 mg Q4H PRN Administration Pain Rated 7-10 Naloxone HCl 0.1 mg 09/07/24 08:19 Naloxone Hcl 0.4 Mg/Ml Vial IV PUSH Q2M PRN Opiate Reversal Ondansetron HCl 4 mg 09/07/24 09:15 09/13/24 09:38 Ondansetron Inj 4 Mg/2 Ml Vial IV PUSH 4 mg Q6H PRN Administration Nausea And Vomiting Polysaccharide Iron Complex 150 mg 09/07/24 17:00 09/13/24 09:32 Polysaccharide Iron Complex 150 Mg Capsule PO 150 mg BIDWM NAHOMI Administration Prednisone 40 mg 09/13/24 08:00 09/13/24 09:32 Prednisone 20 Mg Tablet PO 40 mg DAILY@0800 NAHOMI Administration Rosuvastatin Calcium 5 mg 09/07/24 09:00 09/13/24 09:32 Rosuvastatin 5 Mg Tablet PO 5 mg QAM NAHOMI Administration Sodium Bicarbonate 1,300 mg 09/10/24 09:00 09/13/24 09:32 Sodium Bicarbonate Tab 650 Mg Tablet PO 1,300 mg TID NAHOMI Administration Sucralfate 1,000 mg 09/07/24 11:30 09/13/24 05:58 Sucralfate Susp 100 Mg/Ml 10 Ml Udc PO 1,000 mg ACHS NAHOMI Administration Timolol Maleate 1 drop 09/07/24 09:35 09/13/24 09:33 Timolol Maleate 0.5% Op Soln 5 Ml Bottle EACH EYE 1 drop Q12HR NAHOMI Administration Radiology Results: ITS Impressions Abdomen/Pelvis CT 09/07/24 05:37 Impression: Minimal bilateral pleural effusions. Horseshoe kidney. Chest X-Ray 09/07/24 06:11 Impression: Linear scarring or atelectasis at the lung bases, otherwise clear lungs. Labs Labs: Laboratory Results - last 24 hr 09/12/24 09/12/24 09/12/24 06:19 19:49 23:56 WBC RBC Hgb Hct MCV MCH MCHC RDW Plt Count MPV Immature Gran % (Auto) Neut % (Auto) Lymph % (Auto) Bath % (Auto) Eos % (Auto) Baso % (Auto) Lymph # (Auto) Bath # (Auto) Eos # (Auto) Baso # (Auto) Abs Immat Gran (auto) Absolute Neuts (auto) Absolute Nucleated RBC Nucleated RBC % Sodium Potassium Chloride Carbon Dioxide Anion Gap BUN Creatinine Estim Creat Clear Calc Estimated GFR Glucose POC Capillary Glucose 134 H 126 H Calcium Iron 36 L TIBC 161 L % Saturation 22 Total Bilirubin AST ALT Alkaline Phosphatase Total Protein Albumin Urine Color Urine Appearance Urine pH Ur Specific Beatrice Urine Protein Urine Glucose (UA) Urine Ketones Ur Blood (Man) Urine Nitrate Urine Bilirubin Urine Urobilinogen Leukocyte Esterase Rfl Urine RBC Urine WBC Ur Squamous Epith Cells Urine Bacteria Urine Casts U Random Total Protein Urine Creatinine Protein/Creat Ratio 2 09/13/24 09/13/24 09/13/24 04:29 04:41 06:50 WBC 3.5 L RBC 2.83 L Hgb 7.6 L Hct 24.7 L MCV 87.3 MCH 26.9 MCHC 30.8 L RDW 16.5 H Plt Count 147 L MPV 12.6 H Immature Gran % (Auto) 3.1 H Neut % (Auto) 49.2 Lymph % (Auto) 29.1 Bath % (Auto) 17.7 H Eos % (Auto) 0.3 Baso % (Auto) 0.6 Lymph # (Auto) 1.02 Bath # (Auto) 0.6 Eos # (Auto) 0.0 Baso # (Auto) 0.0 Abs Immat Gran (auto) 0.11 H Absolute Neuts (auto) 1.7 Absolute Nucleated RBC 0.000 Nucleated RBC % 0.0 Sodium 141 Potassium 3.2 L Chloride 119 H Carbon Dioxide 17 L Anion Gap 5 BUN 29 H Creatinine 2.50 H Estim Creat Clear Calc 25 Estimated GFR 20 L Glucose 119 H POC Capillary Glucose 110 H Calcium 7.6 L Iron TIBC % Saturation Total Bilirubin 0.5 AST 51 H ALT 41 H Alkaline Phosphatase 177 H Total Protein 5.0 L Albumin 2.0 L Urine Color Yellow Urine Appearance Turbid H Urine pH 5.5 Ur Specific Beatrice 1.012 Urine Protein 3+ H Urine Glucose (UA) Negative Urine Ketones Negative Ur Blood (Man) Negative Urine Nitrate Negative Urine Bilirubin Negative Urine Urobilinogen 0.2 Leukocyte Esterase Rfl 2+ H Urine RBC 3-5 H Urine WBC >100 H Ur Squamous Epith Cells None seen Urine Bacteria 4+ Urine Casts 3-5 U Random Total Protein 398 Urine Creatinine 63.9 Protein/Creat Ratio 2 6.23 H 09/13/24 09/13/24 08:08 11:52 WBC RBC Hgb Hct MCV MCH MCHC RDW Plt Count MPV Immature Gran % (Auto) Neut % (Auto) Lymph % (Auto) Bath % (Auto) Eos % (Auto) Baso % (Auto) Lymph # (Auto) Bath # (Auto) Eos # (Auto) Baso # (Auto) Abs Immat Gran (auto) Absolute Neuts (auto) Absolute Nucleated RBC Nucleated RBC % Sodium Potassium Chloride Carbon Dioxide Anion Gap BUN Creatinine Estim Creat Clear Calc Estimated GFR Glucose POC Capillary Glucose 119 H 183 H Calcium Iron TIBC % Saturation Total Bilirubin AST ALT Alkaline Phosphatase Total Protein Albumin Urine Color Urine Appearance Urine pH Ur Specific Beatrice Urine Protein Urine Glucose (UA) Urine Ketones Ur Blood (Man) Urine Nitrate Urine Bilirubin Urine Urobilinogen Leukocyte Esterase Rfl Urine RBC Urine WBC Ur Squamous Epith Cells Urine Bacteria Urine Casts U Random Total Protein Urine Creatinine Protein/Creat Ratio 2 Quality VTE Prophylaxis VTE prophylaxis: pharmacologic ordered
--- NOTE | 2024-09-13 13:33 | P.CONCA_ITS ---
Assessment and Plan Assessment and plan (1) Pericardial effusion: Code(s): I31.39 - Other pericardial effusion (noninflammatory) Status: Acute Assessment and Plan: Moderate sized pericardial effusion by echo on 08/03/2024. Etiology unclear, but thought to be viral. Treated for pericarditis and at this point is asymptomatic. * Colchicine has been stopped because of possible adverse effects of diarrhea, vomiting * No longer on NSAIDs * Prednisone has been ordered and can be continued for now, though there is some data to suggest recurrence of pericarditis associated with early steroid use. * Limited echo to assess for pericardial effusion (2) Hypertension: Code(s): I10 - Essential (primary) hypertension Status: Chronic Assessment and Plan: At goal. Continue current medical regimen without change. (3) Atrial fibrillation: Code(s): I48.91 - Unspecified atrial fibrillation Status: Acute Assessment and Plan: In sinus rhythm. Continue with metoprolol, DOAC (4) Pericarditis: Code(s): I31.9 - Disease of pericardium, unspecified Status: Acute Assessment and Plan: As above (5) Diarrhea: Code(s): R19.7 - Diarrhea, unspecified Status: Acute Assessment and Plan: Possibly secondary to colchicine use. This has been discontinued. GI following appreciate and agree with recs. History of Present Illness History of Present Illness Consult date/time: 09/13/24 13:33 Requesting physician: Arely Bond APN-C Consult reason: Other (pericarditis, colchicine side effects) Reason For Visit: BUTCH, Failure to thrive Narrative: Arely Ernandez is a 63 year old female with chronic kidney disease and diabetes mellitus type 2. This is a patient who is known to me from a recent hospitalization where she was treated for pericarditis. At that time, cardiology was consulted because of finding of a moderate pericardial effusion by chest CT. She had complaints of sharp, pleuritic chest pain that worsened with coughing or deep breathing. Also reported shortness of breath. She did have a moderate sized pericardial effusion and thus was started on anti- inflammatory treatment and cholchicine. She presents to the hospital now because of weakness, nausea, diarrhea. She states she has not been able to eat or drink anything because of the diarrhea. Also having nausea, vomiting. She denies having any ongoing chest discomfort, shortness of breath, or palpitations. She feels weak currently but does not have any other active complaints. She is comfortable and not in any distress. Review of Systems 2 Review of Systems: All systems reviewed & are unremarkable except as noted in HPI and below PMFSH Past Medical History Medical History Diabetes mellitus Chronic renal disease Anxiety Surgical History Surgical History History of appendectomy Family History Family History Father Hypertension Diabetes mellitus Lymphoma Grandparent Diabetes mellitus Grandparent Diabetes mellitus Mother Pacemaker Social History Social History Smoking status: Former smoker Tobacco type: cigarettes Alcohol intake: former Substance use: former Substance use type: does not use Do You Feel Safe in your Home?: Yes Lack of Transportation: No Lack of Food: Never True Current Housing: I Have Housing Concerned About Future Housing: No Difficulty Paying Gas/Electric Bills: No Difficulty Paying for Meds: No Currently Unemployed: No Education: High School Diploma/GED Difficulty w/ Childcare or Family Care: No Spiritual care concerns: No Meds Home Medications and Allergies Home Medications ?Medication ?Instructions ?Recorded ?Confirmed ?Type amlodipine 5 mg tablet 5 mg PO QAM 08/22/24 09/07/24 History brimonidine 0.2 % eye drops 1 drp EACH EYE BID 08/22/24 09/07/24 History cholecalciferol (vitamin D3) 50 50 mcg PO QAM 08/22/24 09/07/24 History mcg (2,000 unit) tablet (D3 DOTS) dorzolamide 2 % eye drops 1 drp RIGHT EYE BID 08/22/24 09/07/24 History ferrous sulfate 325 mg (65 mg 325 mg PO QAM 08/22/24 09/07/24 History iron) tablet (FeroSul) hydralazine 50 mg tablet 50 mg PO TID 08/22/24 09/07/24 History metoprolol succinate 100 mg 100 mg PO QAM 08/22/24 09/07/24 History tablet,extended release 24 hr polyvinyl alcohol-povidone 0.5 1 drp RIGHT EYE BID 08/22/24 09/07/24 History %-0.6 % eye drops (Artificial Tears (polyvinyl alcohol/povidone)) rosuvastatin 5 mg tablet 5 mg PO QAM 08/22/24 09/07/24 History sodium bicarbonate 650 mg tablet 650 mg PO TID 08/22/24 09/07/24 History timolol maleate 0.5 % eye drops 1 drp EACH EYE BID 08/22/24 09/07/24 History apixaban 2.5 mg tablet (Eliquis) 2.5 mg PO BID #60 tabs 08/26/24 09/07/24 Rx blood-glucose meter,continuous #1 ea 08/26/24 09/10/24 Rx (Dexcom G6 Semi Conductor Assembler) blood-glucose sensor (Dexcom G6 #3 ea 08/26/24 09/10/24 Rx Sensor device) blood-glucose transmitter (Dexcom #1 ea 08/26/24 09/10/24 Rx G6 Transmitter device) colchicine 0.6 mg tablet (Colcrys) 0.6 mg PO Q12HR #120 tabs 08/26/24 09/07/24 Rx ibuprofen 600 mg tablet 600 mg PO TID #30 tabs 08/26/24 09/07/24 Rx Allergies Allergy/AdvReac Type Severity Reaction Status Date / Time Penicillins Allergy Unknown Unknown Verified 09/07/24 06:30 coconut Allergy Hives Verified 09/07/24 06:30 Vital Signs Vital Signs - 24 hr 09/12/24 15:25 09/12/24 16:00 09/12/24 19:45 Temperature 36.4 C L 36.2 C L Pulse Rate 83 76 76 Respiratory Rate 15 14 Blood Pressure 116/84 151/68 H Pulse Oximetry 93 99 Oxygen Delivery 09/12/24 20:00 09/12/24 20:00 09/13/24 00:00 Temperature Pulse Rate 76 78 77 Respiratory Rate 14 Blood Pressure Pulse Oximetry 99 Oxygen Delivery Room Air 09/13/24 00:00 09/13/24 04:00 09/13/24 04:00 Temperature 36.4 C L 37.1 C Pulse Rate 77 76 76 Respiratory Rate 14 14 Blood Pressure 138/64 150/68 H Pulse Oximetry 99 99 Oxygen Delivery 09/13/24 08:00 Temperature 37.4 C Pulse Rate 83 Respiratory Rate 15 Blood Pressure 117/61 Pulse Oximetry 100 Oxygen Delivery Exam 2 Const: General: comfortable, no acute distress, alert and awake O rientation/consciousness: patient oriented x3 HENMT: Head: normal to inspection Eyes: General: appearance normal, both eyes and all related structures P upils: Equal, round and reactive pupils present Neck: Neck: normal visual inspection, supple and no JVD Carotids: normal carotid upstroke Resp: Effort & Inspection: normal respiratory effort Auscultation: clear to auscultation bilaterally Cardio: Rate: regular rate Rhythm: regular rhythm Heart sounds: S1 normal heart sound present, S2 normal heart sound present, no murmurs and no rubs GI: Auscultation: normal bowel sounds Skin: General skin exam: normal color Neuro: General: patient oriented x3 Cranial nerves: Yes Equal, round and reactive pupils present Extrem: General: normal to inspection Psych: Appearance: grossly normal Mental Status: mental status grossly normal Results Labs and Meds 09/13/24 06:50 09/13/24 06:50 Lab results: Cardiac Enzymes 09/13/24 Range/Units 06:50 AST 51 H (14-36) U/L CBC 09/13/24 Range/Units 06:50 WBC 3.5 L (4.5-10.0) K/mm3 RBC 2.83 L (4.2-5.4) M/mm3 Hgb 7.6 L (12.0-15.0) g/dL Hct 24.7 L (37.0-47.0) % Plt Count 147 L (150-375) k/mm3 Lymph # (Auto) 1.02 (0.9-3.2) K/mm3 [place] # (Auto) 0.6 (0.1-0.6) K/mm3 Eos # (Auto) 0.0 (0-0.3) K/mm3 Baso # (Auto) 0.0 (0.0-0.1) K/mm3 Comprehensive Metabolic Panel 09/13/24 Range/Units 06:50 Sodium 141 (137-145) mmol/L Potassium 3.2 L (3.4-5.0) mmol/L Chloride 119 H (98-107) mmol/L Carbon Dioxide 17 L (22-30) mmol/L BUN 29 H (7-17) mg/dL Creatinine 2.50 H (0.7-1.0) mg/dL Glucose 119 H (65-110) mg/dL Calcium 7.6 L (8.4-10.2) mg/dL AST 51 H (14-36) U/L ALT 41 H (6-35) U/L Alkaline Phosphatase 177 H (38-126) U/L Total Protein 5.0 L (6.3-8.2) g/dL Albumin 2.0 L (3.5-5.1) g/dL Intake and Output 09/12/24 09/13/24 09/13/24 23:59 07:59 15:59 Intake Total 120 1000 620 Balance 120 1000 620 Intake: IV 1000 Dextrose 5%/Lactated Ringers 1, 1000 000 ml @ 100 mls/hr IV CONT . Q10H [facility] Rx#:[id number] Oral 120 620 Other: # Incontinent Voids 1 # Urine Diapers 1 1 Number of Bowel Movements Today 1
[2024-09-13 14:47] LABS: Complement Total CH50 >60 U/mL (31-60)
[2024-09-13 16:09] LABS: Myeloperoxidase Ab 1.4 AI
--- NOTE | 2024-09-13 16:48 | PM.PNNEP ---
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 this is exacerbated by the diarrhea but has baseline metabolic acidosis secondary to renal failure. anemia chronic kidney disease pancytopenia Positive antinuclear antibody recently 1:1280 homogenous pattern Labs reviewed: --LDH is slightly elevated --urinalysis shows only a few red cells --C3 a bit low anti MPO antibody mildly positive, rest of the labs all unremarkable --elevated liver enzymes plan: -pancytopenia status -no clear indication that this is a glomerulonephritis. Will hold on doing kidney biopsy. Weight has not substantially changed with IV fluids. She is probably adequately hydrated. Patient is on Eliquis making biopsy difficult -patient is currently on prednisone -monitor renal function (2) Chronic kidney disease, stage IV (severe): Code(s): N18.4 - Chronic kidney disease, stage 4 (severe) Status: Chronic Subjective Date/time seen: 09/13/24 16:48 Interval history: Follow-up acute on chronic renal failure Review of Systems Review of Systems: Still complains of diarrhea. Does not feel well. No emesis. No shortness of breath. Exam Narrative: Elderly, ill-looking, not in any acute distress however, dry skin, dry oral mucosa, skin turgor was diminished, regular rate rhythm, JVD negative, no gallop, no rub, equal breath sounds, no rub obese, soft nontender abdomen, no masses felt, edema negative, alert, oriented x3, follow-up of a flat affect Objective Data Vital Signs Vital Signs: Vital Signs - 24 hr 09/12/24 19:45 09/12/24 20:00 09/12/24 20:00 Temperature 36.2 C L Pulse Rate 76 76 78 Respiratory Rate 14 14 Blood Pressure 151/68 H Pulse Oximetry 99 99 Oxygen Delivery Room Air 09/13/24 00:00 09/13/24 00:00 09/13/24 04:00 Temperature 36.4 C L Pulse Rate 77 77 76 Respiratory Rate 14 Blood Pressure 138/64 Pulse Oximetry 99 Oxygen Delivery 09/13/24 04:00 09/13/24 08:00 09/13/24 08:00 Temperature 37.1 C 37.4 C 37.4 C Pulse Rate 76 83 83 Respiratory Rate 14 15 15 Blood Pressure 150/68 H 117/61 117/61 Pulse Oximetry 99 100 100 Oxygen Delivery 09/13/24 08:00 09/13/24 08:00 09/13/24 12:00 Temperature 36.1 C L Pulse Rate 83 83 88 Respiratory Rate 15 20 Blood Pressure 133/59 L Pulse Oximetry 100 97 Oxygen Delivery Room Air 09/13/24 16:00 Temperature 36.4 C L Pulse Rate 78 Respiratory Rate 18 Blood Pressure 147/71 H Pulse Oximetry 98 Oxygen Delivery Intake/Output Intake/Output: Intake & Output 09/10/24 09/11/24 09/12/24 09/13/24 23:59 23:59 23:59 23:59 Intake Total 3833.8 1999 1238 2620 Balance 3833.8 1999 1238 2620 Meds/Results Medications: Active Medications Generic Name Dose Route Start Last Admin Trade Name Freq PRN Reason Stop Dose Admin Acetaminophen 650 mg 09/07/24 08:19 09/09/24 09:29 Acetaminophen 325 Mg Tablet PO 650 mg Q4H PRN Administration Mild Pain (1-3) or Fever Hydrocodone Bitart/Acetaminophen 1 tab 09/07/24 08:19 09/12/24 22:09 Hydrocodone/Acetaminophen (*Crx) 5-325 Mg Tablet PO 1 tab Q4H PRN Administration Moderate Pain (4-6) Amlodipine Besylate 5 mg 09/07/24 09:00 09/13/24 09:32 Amlodipine Besylate 5 Mg Tablet PO 5 mg QAM NAHOMI Administration Apixaban 2.5 mg 09/07/24 09:30 09/13/24 09:32 Apixaban 2.5 Mg Tablet PO 2.5 mg Q12HR NAHOMI Administration Artificial Tears 1 drop 09/07/24 09:35 09/13/24 09:32 Artificial Tears Ophth Soln 15 Ml Bottle RIGHT EYE 1 drop Q12HR NAHOMI Administration Brimonidine Tartrate 1 drop 09/07/24 09:30 09/13/24 09:33 Brimonidine Tartrate 0.2% Op Soln 5 Ml Btl EACH EYE 1 drop Q12HR NAHOMI Administration Dextrose 12.5 gm 09/07/24 09:15 Dextrose 50% 25 Gm/50 Ml Syringe IV PUSH PRN PRN Hypoglycemia Protocol Dorzolamide HCl 1 drop 09/07/24 09:30 09/13/24 09:33 Dorzolamide Hcl 2% Ophth Drops RIGHT EYE 1 drop Q12HR NAHOMI Administration Famotidine 20 mg 09/07/24 21:00 09/13/24 09:38 Famotidine 20 Mg/2 Ml Vial IV PUSH 20 mg Q12HR NAHOMI Administration Glucagon 1 mg 09/07/24 09:15 Glucagon For Inj 1 Mg Vial IM PRN PRN Hypoglycemia Protocol Glucose 15 gm 09/07/24 09:15 Glucose Oral Gel 15 Gm Of Glucse In 37.5 Gm Tube PO PRN PRN Hypoglycemia Protocol Hydralazine HCl 50 mg 09/07/24 13:00 09/13/24 14:48 Hydralazine Hcl 50 Mg Tablet PO 50 mg Q8HR NAHOMI Administration Dextrose 1,000 mls @ 100 mls/hr 09/07/24 09:15 Dextrose 5% 1,000 Ml IVPB PRN PRN Hypoglycemia Protocol Dextrose/Lactated Ringer's 1,000 mls @ 100 mls/hr 09/10/24 20:05 09/13/24 14:49 Dextrose 5%/Lactated Ringers IV CONT 100 mls/hr .Q10H NAHOMI Administration Ceftriaxone Sodium 1 gm in 50 mls @ 100 mls/hr 09/13/24 07:00 09/13/24 06:59 Rocephin 1 Gm/Ns 50 Ml IVPB 100 mls/hr Q24H NAHOMI Administration Insulin Aspart 2 - 5 units 09/07/24 12:00 09/13/24 14:48 Insulin Aspart (*Bkc) 100 Units/Ml SUB-Q Not Given Q6HR [facility] Protocol Loperamide HCl 2 mg 09/08/24 08:12 09/13/24 09:38 Loperamide Hcl 2 Mg Capsule PO 2 mg Q6HR PRN Administration Diarrhea Metoprolol Succinate 100 mg 09/07/24 09:00 09/13/24 09:32 Metoprolol Succinate Ext Rel 100 Mg Tabcr PO 100 mg QAM NAHOMI Administration Morphine Sulfate 2 mg 09/07/24 08:19 09/11/24 22:23 Morphine Sulfate (*Crx) 2 Mg/Ml Inj IV PUSH 2 mg Q4H PRN Administration Pain Rated 7-10 Naloxone HCl 0.1 mg 09/07/24 08:19 Naloxone Hcl 0.4 Mg/Ml Vial IV PUSH Q2M PRN Opiate Reversal Ondansetron HCl 4 mg 09/07/24 09:15 09/13/24 14:52 Ondansetron Inj 4 Mg/2 Ml Vial IV PUSH 4 mg Q6H PRN Administration Nausea And Vomiting Perflutren Lipid Microsphere 0 ml 09/13/24 14:27 Perflutren Lipid Microspheres 1.5 Ml Vial Diluted To 10 Ml Total Volume IV PUSH 09/16/24 14:28 ONCE PRN adequate visualization Protocol Polysaccharide Iron Complex 150 mg 09/07/24 17:00 09/13/24 09:32 Polysaccharide Iron Complex 150 Mg Capsule PO 150 mg BIDWM NAHOMI Administration Prednisone 40 mg 09/13/24 08:00 09/13/24 09:32 Prednisone 20 Mg Tablet PO 40 mg DAILY@0800 NAHOMI Administration Rosuvastatin Calcium 5 mg 09/07/24 09:00 09/13/24 09:32 Rosuvastatin 5 Mg Tablet PO 5 mg QAM NAHOMI Administration Sodium Bicarbonate 1,300 mg 09/10/24 09:00 09/13/24 14:48 Sodium Bicarbonate Tab 650 Mg Tablet PO 1,300 mg TID NAHOMI Administration Sucralfate 1,000 mg 09/07/24 11:30 09/13/24 14:48 Sucralfate Susp 100 Mg/Ml 10 Ml Udc PO Not Given ACHS [facility] Timolol Maleate 1 drop 09/07/24 09:35 09/13/24 09:33 Timolol Maleate 0.5% Op Soln 5 Ml Bottle EACH EYE 1 drop Q12HR NAHOMI Administration Radiology Results: ITS Impressions Abdomen/Pelvis CT 09/07/24 05:37 Impression: Minimal bilateral pleural effusions. Horseshoe kidney. Chest X-Ray 09/07/24 06:11 Impression: Linear scarring or atelectasis at the lung bases, otherwise clear lungs. Labs Labs: Laboratory Results - last 24 hr 09/10/24 09/12/24 09/12/24 06:17 06:19 19:49 WBC RBC Hgb Hct MCV MCH MCHC RDW Plt Count MPV Immature Gran % (Auto) Neut % (Auto) Lymph % (Auto) [place] % (Auto) Eos % (Auto) Baso % (Auto) Lymph # (Auto) [place] # (Auto) Eos # (Auto) Baso # (Auto) Abs Immat Gran (auto) Absolute Neuts (auto) Absolute Nucleated RBC Nucleated RBC % Sodium Potassium Chloride Carbon Dioxide Anion Gap BUN Creatinine Estim Creat Clear Calc Estimated GFR Glucose POC Capillary Glucose 134 H Calcium % Saturation 22 Total Bilirubin AST ALT Alkaline Phosphatase Total Protein Albumin Urine Color Urine Appearance Urine pH Ur Specific [place] Urine Protein Urine Glucose (UA) Urine Ketones Ur Blood (Man) Urine Nitrate Urine Bilirubin Urine Urobilinogen Leukocyte Esterase Rfl Urine RBC Urine WBC Ur Squamous Epith Cells Urine Bacteria Urine Casts U Random Total Protein Urine Creatinine Protein/Creat Ratio 2 Anti-Proteinase 3 FEIA c/o 1.9 <1.0 Anti-Myeloperoxidase 1.4 H Tot Complement (CH50) >60 H 09/12/24 09/13/24 09/13/24 23:56 04:29 04:41 WBC RBC Hgb Hct MCV MCH MCHC RDW Plt Count MPV Immature Gran % (Auto) Neut % (Auto) Lymph % (Auto) [place] % (Auto) Eos % (Auto) Baso % (Auto) Lymph # (Auto) [place] # (Auto) Eos # (Auto) Baso # (Auto) Abs Immat Gran (auto) Absolute Neuts (auto) Absolute Nucleated RBC Nucleated RBC % Sodium Potassium Chloride Carbon Dioxide Anion Gap BUN Creatinine Estim Creat Clear Calc Estimated GFR Glucose POC Capillary Glucose 126 H 110 H Calcium % Saturation Total Bilirubin AST ALT Alkaline Phosphatase Total Protein Albumin Urine Color Yellow Urine Appearance Turbid H Urine pH 5.5 Ur Specific [place] 1.012 Urine Protein 3+ H Urine Glucose (UA) Negative Urine Ketones Negative Ur Blood (Man) Negative Urine Nitrate Negative Urine Bilirubin Negative Urine Urobilinogen 0.2 Leukocyte Esterase Rfl 2+ H Urine RBC 3-5 H Urine WBC >100 H Ur Squamous Epith Cells None seen Urine Bacteria 4+ Urine Casts 3-5 U Random Total Protein 398 Urine Creatinine 63.9 Protein/Creat Ratio 2 6.23 H Anti-Proteinase 3 FEIA c/o 1.9 Anti-Myeloperoxidase Tot Complement (CH50) 09/13/24 09/13/24 09/13/24 06:50 08:08 11:52 WBC 3.5 L RBC 2.83 L Hgb 7.6 L Hct 24.7 L MCV 87.3 MCH 26.9 MCHC 30.8 L RDW 16.5 H Plt Count 147 L MPV 12.6 H Immature Gran % (Auto) 3.1 H Neut % (Auto) 49.2 Lymph % (Auto) 29.1 [place] % (Auto) 17.7 H Eos % (Auto) 0.3 Baso % (Auto) 0.6 Lymph # (Auto) 1.02 [place] # (Auto) 0.6 Eos # (Auto) 0.0 Baso # (Auto) 0.0 Abs Immat Gran (auto) 0.11 H Absolute Neuts (auto) 1.7 Absolute Nucleated RBC 0.000 Nucleated RBC % 0.0 Sodium 141 Potassium 3.2 L Chloride 119 H Carbon Dioxide 17 L Anion Gap 5 BUN 29 H Creatinine 2.50 H Estim Creat Clear Calc 25 Estimated GFR 20 L Glucose 119 H POC Capillary Glucose 119 H 183 H Calcium 7.6 L % Saturation Total Bilirubin 0.5 AST 51 H ALT 41 H Alkaline Phosphatase 177 H Total Protein 5.0 L Albumin 2.0 L Urine Color Urine Appearance Urine pH Ur Specific [place] Urine Protein Urine Glucose (UA) Urine Ketones Ur Blood (Man) Urine Nitrate Urine Bilirubin Urine Urobilinogen Leukocyte Esterase Rfl Urine RBC Urine WBC Ur Squamous Epith Cells Urine Bacteria Urine Casts U Random Total Protein Urine Creatinine Protein/Creat Ratio 2 Anti-Proteinase 3 FEIA c/o 1.9 Anti-Myeloperoxidase Tot Complement (CH50)
[2024-09-13 17:09] LABS: Glucose Point of Care 212 mg/dl (65-105)
[2024-09-13] MEDS: INSULIN ASPART (*BKC) 100 UNITS/ML SUB-Q ×2 (18:46→23:51)
[2024-09-13 23:27] LABS: Glucose Point of Care 271 mg/dl (65-105)
[2024-09-14] VITALS (11 sets, daily range): BP systolic 150–162; BP diastolic 79–89; PULSE 70–92; RESP 16–20; TEMP 36.5–36.9; O2SAT 100
--- NOTE | 2024-09-14 | ECHOL_ITS ---
Patient Info Name: Arely Ernandez Age: 63 years : 1960 Gender: Female Ht: 67 in Wt: 205 lbs BSA: 2.13 m2 HR: 84 bpm BP: 162 / 89 mmHg Heart Rhythm: Sinus Rhythm Technical Quality: Fair Exam Date: 09/14/2024 11:22 AM Exam Location: Echo Lab Patient Status: Inpatient Admit Date: 09/09/2024 Staff Ordering Physician: Alexa Main Ground Control Approach Technician: Sadia Aguayo RDCS Attending Provider: Arely Bond Referring Physician: Etelvina BAER; Exam Type: CA echo limited Study Info Indications - PERICARDIAL EFFUSION Limited two-dimensional transthoracic echocardiogram is performed. Prior Interventions PCI: Yes Summary 1. Normal left ventricular size and systolic function without wall motion abnormality. 2. Mildly calcified mitral valve annulus. 3. No pericardial effusion, previously described effusion on 08/23/2024 presumably has been drained. Left Ventricle Left ventricular chamber dimension is normal. Left ventricular systolic function is normal, estimated at 60-65%. Right Ventricle Right ventricular chamber dimension is normal. Left Atria Left atrial chamber dimension is normal. Right Atria Right atrial chamber dimension is normal. Aortic Valve The aortic valve is normal. Pulmonic Valve The pulmonic valve is normal. Mitral Valve The mitral valve has normal leaflets. The mitral valve annulus is mildly calcified. Tricuspid Valve The tricuspid valve leaflets are normal. Pericardium/Pleural There is no pericardial effusion. Aorta The aortic root size at the sinus of Valsalva is normal. Report Signatures
[2024-09-14 05:34] LABS: Glucose Point of Care 219 mg/dl (65-105)
[2024-09-14] MEDS: hydrALAZINE HCL 50 MG TABLET PO ×3 (06:15→21:15)
[2024-09-14] MEDS: INSULIN ASPART (*BKC) 100 UNITS/ML SUB-Q ×3 (06:15→18:21)
[2024-09-14] MEDS: SUCRALFATE SUSP 100 MG/ML 10 ML UDC 1000 MG PO ×4 (06:15→21:24)
--- OUTSIDE RECORDS SUMMARY | 2024-09-14 06:16 | XMS_ITS | Encounter Summary ---
Author Organization [facility] Address [address] [place] [address] Phone Care Team Providers Care Accessories Repairer Name Role Phone Jonatan Worley MD Primary Care Provider [phone] Reason for Visit * Reason Comments Med Refill Encounter Details Date Type Department Care Team ([facility] Contact Info) Description 08/28/2024 Refill [facility] [address] [place] [address] [phone] Rosa Delgado NP [address] [phone] Social History Tobacco Use Types Packs/Day Years [...] Upcoming Encounters Date Type Department Care Team ([facility] Contact Info) Description 09/23/2024 3:40 PM PRESCHOOL TEACHER Office Visit [facility] [phone] Rosa Delgado NP [address] [phone] documented as of this encounter Visit Diagnoses Not on filedocumented in this encounter Care Teams Accessories Repairer Relationship Specialty Start Date End Date Jonatan Worley MD [address] [place] [address] PCP - General 06/06/21 documented as of this encounter
--- OUTSIDE RECORDS SUMMARY | 2024-09-14 06:16 | XMS_ITS | Encounter Summary ---
Author Organization [facility] Address [address] [place] [address]. [place] [id number] [place] [address] Care Team Providers Care Support Dba Name Role Phone Unavailable Primary Care Provider Unavailabl e Encounter Details Date Type Department Care Team (Late st Contact Info) Description 10/28/2001 [place] [address] , Generic Conversion, Social History Tobacco Use [...]
--- OUTSIDE RECORDS SUMMARY | 2024-09-14 06:16 | XMS_ITS | Encounter Summary ---
Author Organization [facility] Address [address] [place] [address] Phone Care Team Providers Care Industrial Hygienist Name Role Phone Jonatan Worley MD Primary Care Provider [phone] Reason for Visit * Reason Comments Med Refill Encounter Details Date Type Department Care Team ([facility] Contact Info) Description 06/30/2024 Refill [facility] [address] [place] [address] [phone] Rosa Delgado NP [address] [phone] Social History Tobacco Use Types Packs/Day Years [...] Upcoming Encounters Date Type Department Care Team ([facility] Contact Info) Description 09/23/2024 3:40 PM COSMETOLOGIST Office Visit [facility] [address] [phone] Rosa Delgado NP [address] [phone] documented as of this encounter Visit Diagnoses Not on filedocumented in this encounter Care Teams Industrial Hygienist Relationship Specialty Start Date End Date Jonatan Worley MD [address] [place] [address] PCP - General 06/06/21 documented as of this encounter
--- OUTSIDE RECORDS SUMMARY | 2024-09-14 06:16 | XMS_ITS | Clinical Summary ---
Author Organization [facility] Address [address] [place] [address]. [place], [place] [phone] [place] [phone] Care Team Providers Care Federal Appellate Clerk Name Role Phone Unavailable Primary Care Provider [...]
--- OUTSIDE RECORDS SUMMARY | 2024-09-14 06:16 | XMS_ITS | Clinical Summary ---
Author Organization [facility] Address [address] [place] [address] Phone Care Team Providers Care Soap Inspector Name Role Phone Jonatan Worley MD Primary Care Provider [phone] Allergies Active Allergy Reactions Criticality Noted Date [...] manifestations, type II or unspecified type, uncontrolled ([facility]) Take 1 [...] drops 1 (one) time each day Active Ferrous Sulfate (Iron) 325 (65 Fe) MG tablet Take 1 tablet by mouth once daily with breakfast 90 tablet 06/30/2024 Active sodium bicarbonate 650 MG tablet TAKE 1 TABLET BY MOUTH IN THE MORNING AND 1 IN THE EVENING AND 1 AT BEDTIME 270 tablet 08/06/2024 Active hydrALAZINE (APRESOLINE) 50 MG tablet TAKE 1 TABLET BY MOUTH IN THE MORNING AND 1 IN THE EVENING AND 1 BEFORE BEDTIME 90 tablet 08/29/2024 Active hydrALAZINE (APRESOLINE) 50 MG tablet TAKE 1 TABLET BY MOUTH IN THE MORNING, TAKE 1 TABLET IN THE EVENING, AND 1 TABLET BEFORE BEDTIME 90 tablet 2 05/25/2024 Discontinue d(Reorder) Active Problems Problem Noted Date Diagnosed Date [...] Type Department Care Team Description 08/28/2024 Refill [facility] [address] [place] [phone] Rosa Delgado NP 08/06/2024 Refill [facility] [address] [place] [address] Rosa Delgado NP 06/30/2024 Refill [facility] [address] [place] [address] Rosa Delgado NP from Last 3 Months [...] st Contact Info) Description 09/23/2024 3:40 PM PINION SORTER Office Visit [facility] [address] [facility] [place] [address] Rosa Delgado NP [address] [phone] Health Maintenance Due Date Last Done Comments Diabetic Foot Exam 12/23/1971 Ophthalmology Exam 12/23/1971 Pneumococcal PPSV23 Highest Risk Adult (1 of 3 - PCV13 ) 1980 Influenza Vaccine (#1) 2024 Care Teams Soap Inspector Relationship Specialty Start Date End Date Jonatan Worley MD [address] [place] [phone] PCP - General 06/06/21
--- OUTSIDE RECORDS SUMMARY | 2024-09-14 06:16 | XMS_ITS | Encounter Summary ---
Author Organization [facility] Address [address] [place] [address] Phone Care Team Providers Care Print Finishing Worker Name Role Phone Jonatan Worley MD Primary Care Provider [phone] Reason for Visit * Reason Comments Med Refill Encounter Details Date Type Department Care Team ([facility] Contact Info) Description 08/06/2024 Refill [facility] [address] [place] [address] [phone] Rosa Delgado NP [address] [phone] Social History Tobacco Use Types Packs/Day Years [...] Upcoming Encounters Date Type Department Care Team ([facility] Contact Info) Description 09/23/2024 3:40 PM DATABASE OPERATOR Office Visit [facility] [address] [phone] Rosa Delgado NP [address] [phone] documented as of this encounter Visit Diagnoses Not on filedocumented in this encounter Care Teams Print Finishing Worker Relationship Specialty Start Date End Date Jonatan Worley MD [address] [place] [address] PCP - General 06/06/21 documented as of this encounter
--- OUTSIDE RECORDS SUMMARY | 2024-09-14 06:17 | XMS_ITS | Encounter Summary ---
Author Organization [facility] Address [address] [place] [phone] Phone Care Team Providers Care Tin Assorter Name Role Phone Jonatan Worley MD Primary Care Provider [phone] Reason for Visit * Reason Comments Med Refill Encounter Details Date Type Department Care Team (Late Contact Info) Description 02/10/2023 Refill [facility] [address] [phone] Rosa Delgado PAN RECLAIM PROCESSOR [address] [phone] Diabetes mellitus with renal manifestations, type II or unspecified type, uncontrolled ([facility]) Social History Tobacco Use [...] (Late Contact Info) Description 09/23/2024 3:40 PM MOBILITY ARCHITECT MANAGER Office Visit [facility] 5[address] [facility] [place], [place] [phone] Rosa Delgado PAN RECLAIM PROCESSOR [address] [phone] documented as of this encounter Visit Diagnoses Diagnosis Diabetes mellitus with renal manifestations, type II or unspecified type, uncontrolled ([facility]) Diabetes mellitus with renal manifestations, type II or unspecified type, uncontrolled documented in this encounter Care Teams Tin Assorter Relationship Specialty Start Date End Date Jonatan Worley MD [address] [place] [address] PCP - General 06/06/21 documented as of this encounter
--- OUTSIDE RECORDS SUMMARY | 2024-09-14 06:17 | XMS_ITS | Encounter Summary ---
Author Organization Isaac Physician Ilana petersen Address [address] [place] [address] Phone Care Team Providers Care User Interface Engineer Name Role Phone Jonatan Worley MD Primary Care Provider [phone] Encounter Details Date Type Department Care Team ([facility] Contact Info) Description 09/26/2022 Orders Only [facility] [address] [place] [address] 1 [place], [place] [phone] Rosa Delgado NP [address] [address] Social History Tobacco Use Types [...] (Late Contact Info) Description 09/23/2024 3:40 PM CUTTER APPRENTICE HAND Office Visit [facility] 5003 [facility] 1 [place] [address] Rosa Delgado NP [address] [phone] documented as of this encounter Procedures Procedure Name Priority Date/Time Associated Diagnosis Comments CBC (INCLUDES DIFFERENTIAL/PLATEL ETS) Routine 09/26/2022 10:33 AM CUTTER APPRENTICE HAND RENAL FUNCTION PANEL (RFP) Routine 09/26/2022 10:33 AM CUTTER APPRENTICE HAND IRON TIBC AND FERRITIN PANEL Routine 09/26/2022 10:33 AM CUTTER APPRENTICE HAND PTH INTACT AND CALCIUM, SERUM Routine 09/26/2022 10:33 AM CUTTER APPRENTICE HAND documented in this encounter Results * (ABNORMAL) Renal Function Panel (RFP) (09/26/2022 10:33 AM CUTTER APPRENTICE HAND) Pathologist [facility] Glucose, Serum/Plasma 131(H) 65 - 99 mg/dL [facility] ([facility]) Comment: [...] Albumin, Serum/Plasma 3.3(L) 3.6 - 5.1 g/dL [facility] ([facility]) 09/26/2022 10:3 3 AM CUTTER APPRENTICE HAND 09/26/2022 10:35 AM CUTTER APPRENTICE HAND Narrative [facility] ([facility]) - 09/27/2022 6:13 AM CUTTER APPRENTICE HAND FASTING:YES FASTING: YES Resulting Agency Comment Performing Organization Information: ?Site ID: [place] ?Name: [facility] ?Address: [address] [place] [id number] ?Director: Odalys Bangura MD Rosa Delgado NP LAB BLOOD ORDERABLES [facility] ([facility] * PTH Intact and Calcium, Serum (09/26/2022 10:33 AM CUTTER APPRENTICE HAND) PTH, Intact, Serum/Plasma 67 16 - 77 pg/mL [facility] ([facility]) Comment: Interpretive Guide ?Intact PTH ? Calcium ? ------- Normal Parathyroid ?Normal ? Normal Hypoparathyroidism ?Low or Low Normal ?Low Hyperparathyroidism ?? Primary ?Normal or High ? High ?? Secondary ?High ? Normal or Low ?? Tertiary ? High ? High Non-Parathyroid ?? Hypercalcemia ?Low or Low Normal ?High Calcium, Serum/Plasma 8.9 8.6 - 10.4 mg/dL [facility] ([facility]) 09/26/2022 10:3 3 AM CUTTER APPRENTICE HAND 09/26/2022 10:35 AM CUTTER APPRENTICE HAND Narrative [facility] ([facility]) - 09/27/2022 6:13 AM CUTTER APPRENTICE HAND FASTING:YES FASTING: YES Resulting Agency Comment Performing Organization Information: ?Site ID: [place] ?Name: [facility] ?Address: [address] [place] [id number] ?Director: Odalys Bangura MD Rosa Delgado NP LAB BLOOD ORDERABLES [facility] (ST) * Iron TIBC And Ferritin Panel (09/26/2022 10:33 AM CUTTER APPRENTICE HAND) Iron, Serum/Plasma 62 45 - 160 mcg/dL [facility] ([facility]) Iron binding capacity, Serum/Plasma 257 250 - 450 mcg/dL (calc) [facility] ([facility]) Iron saturation, Serum/Plasma 24 16 - 45 % (calc) [facility] ([facility]) Ferritin, Serum/Plasma 66 16 - 232 ng/mL [facility] ([facility]) 09/26/2022 10:3 3 AM CUTTER APPRENTICE HAND 09/26/2022 10:35 AM CUTTER APPRENTICE HAND Narrative [facility] ([facility]) - 09/27/2022 6:13 AM CUTTER APPRENTICE HAND FASTING:YES FASTING: YES Resulting Agency Comment Performing Organization Information: ?Site ID: [place] ?Name: [facility] ?Address: [address] [address] ?Director: Odalys Bangura MD Rosa Delgado NP LAB BLOOD ORDERABLES [facility] ([facility] * (ABNORMAL) CBC (includes Differential/Platelets) (09/26/2022 10:33 AM CUTTER APPRENTICE HAND) Leukocytes, Blood 10.3 3.8 - 10.8 Thousand/u [...] [facility] [place] ([facility]) 09/26/2022 10:3 3 AM CUTTER APPRENTICE HAND 09/26/2022 10:35 AM CUTTER APPRENTICE HAND Narrative [facility] ([facility] - 09/27/2022 6:13 AM CUTTER APPRENTICE HAND FASTING:YES FASTING: YES Resulting Agency Comment Performing Organization Information: ?Site ID: [place] ?Name: [facility] ?Address: [facility] [address] [address] ?Director: Odalys Bangura MD Rosa Delgado CLASSIFICATION ANALYST LAB BLOOD ORDERABLES [facility] ([facility]) documented in this encounter Visit Diagnoses Not on filedocumented in this encounter Care Teams User Interface Engineer Relationship Specialty Start Date End Date [place] [address] PCP - General 06/06/21 documented as of this encounter
--- OUTSIDE RECORDS SUMMARY | 2024-09-14 06:17 | XMS_ITS | Encounter Summary ---
Author Organization Isaac Physician Ilana utialmas Address [address] [place] [address] Phone Care Team Providers Care Sulfuric Acid Plant Supervisor Name Role Phone Jonatan Worley MD Primary Care Provider [phone] Reason for Visit * Reason Comments Med Refill Encounter Details Date Type Department Care Team ([facility] Contact Info) Description 03/19/2024 Refill [facility] [address] [place] [phone] Rosa Delgado NP [address] [phone] Social History Tobacco Use Types Packs/Day Years [...] Upcoming Encounters Date Type Department Care Team ([facility] Contact Info) Description 09/23/2024 3:40 PM QUARTZ CUTTER Office Visit [facility] [address] [phone] Rosa Delgado NP [address] [phone] documented as of this encounter Visit Diagnoses Not on filedocumented in this encounter Care Teams Sulfuric Acid Plant Supervisor Relationship Specialty Start Date End Date Jonatan Worley MD [address] [place] [address] PCP - General 06/06/21 documented as of this encounter
--- OUTSIDE RECORDS SUMMARY | 2024-09-14 06:17 | XMS_ITS | Encounter Summary ---
Author Organization Isaac Physician Ilana petersen Address [address] [place] [address] Phone Care Team Providers Care Retail Sales Clerk Name Role Phone Jonatan Worley MD Primary Care Provider [phone] Encounter Details Date Type Department Care Team ([facility] Contact Info) Description 04/29/2023 Orders Only [facility] [address] [place] [address] 1 [place] [address] Rosa Delgado NP [address] [address] Social History Tobacco Use Types [...] (Late Contact Info) Description 09/23/2024 3:40 PM BOTTOM CEMENTER Office Visit [facility] 5003 [facility] 1 [place] [address] Rosa Delgado NP [address] [address] documented as of this encounter [...] Creatinine, Urine 33 20 - 275 mg/dL [facility] ([facility]) Microalbumin, Urine 66.5 See Note: mg/dL [facility] ([facility]) Comment: Reference Range: Reference Range Not established Verified by repeat analysis. Albumin/Creatinin e, Urine 2,015(H) <30 mcg/mg creat [facility] [place] ([facility]) Comment: The ADA defines [...] Agency Comment Performing Organization Information: ?Site ID: [place] ?Name: [facility] ?Address: [address] [address] ?Director: Odalys Bangura MD Rosa Delgado NP [...] Nitrite, Urine NEGATIVE NEGATIVE [facility] ([facility]) Leukocyte esterase, Urine 1+(A) [...] (STL) Comment: ??CULTURE, URINE, ROUTINE ?Micro Number: ?[id number] ??Test Status: ? Final ??Specimen Source: ?? Urine ??Specimen Quality: ??Adequate ??Result: ?No Growth 04/29/2023 10:4 2 AM CDT 04/29/2023 10:46 AM CDT Narrative Resulting Agency Comment Performing Organization Information: ?Site ID: [place] ?Name: [facility] ?Address: [address] [facility] [place] [address] ?Director: Odalys Bangura MD Rosa Delgado PLASTERER HELPER LAB BLOOD ORDERABLES [facility] ([facility]) * (ABNORMAL) PTH Intact and Calcium, Serum (04/29/2023 10:42 AM CDT) PTH, Intact, Serum/Plasma 93(H) 16 - 77 pg/mL [facility] ([facility]) Comment: Interpretive Guide ?Intact PTH ? Calcium ? ------- Normal Parathyroid ?Normal ? Normal Hypoparathyroidism ?Low or Low Normal ?Low Hyperparathyroidism ?? Primary ?Normal or High ? High ?? Secondary ?High ? Normal or Low ?? Tertiary ? High ? High Non-Parathyroid ?? Hypercalcemia ?Low or Low Normal ?High Calcium, Serum/Plasma 8.8 8.6 - 10.4 mg/dL [facility] ([facility]) 04/29/2023 10:4 2 AM CDT 04/29/2023 10:46 AM CDT Narrative Resulting Agency Comment Performing Organization Information: ?Site ID: [place] ?Name: [facility] ?Address: [facility] [address] [address] ?Director: Odalys Bangura MD Rosa Delgado NP [...] Performing Organization Information: ?Site ID: [place] ?Name: [facility] ?Address: [facility] [place] [address] ?Director: Odalys Bangura Rosa Delgado NP LAB BLOOD ORDERABLES [facility] ([facility]) [...] Serum/Plasma (BUN) 39(H) 7 - 25 mg/dL [facility] ([facility]) Creatinine, Serum/Plasma 2.60(H) 0.50 - 1.05 mg/dL [facility] ([facility]) Estimated Glomerular Filtration Rate (eGFR) 20(L) > OR = 60 mL/min/1.7 3m2 [facility] ([facility]) Urea nitrogen/Creati nine, Serum/Plasma 15 6 - 22 (calc) [facility] ([facility]) Sodium, Serum/Plasma 135 135 - 146 mmol/L [facility] ([facility]) Potassium, Serum/Plasma 5.1 3.5 - 5.3 mmol/L [facility] ([facility]) Chloride, Serum/Plasma 107 98 - 110 mmol/L [facility] ([facility]) Carbon dioxide CO2), total, Serum/Plasma 20 20 - 32 mmol/L [facility] ([facility]) Calcium, Serum/Plasma 8.6 8.6 - 10.4 mg/dL [facility] ([facility]) Phosphate, Serum/Plasma 4.7(H) 2.5 - 4.5 mg/dL [facility] ([facility]) Albumin, Serum/Plasma 3.5(L) 3.6 - 5.1 g/dL [facility] ([facility]) 04/29/2023 10:4 2 AM CDT 04/29/2023 10:46 AM CDT Narrative Resulting Agency Comment Performing Organization Information: ?Site ID: [place] ?Name: [facility] ?Address: [facility] [place] [address] ?Director: Odalys Bangura Rosa Delgado NP LAB BLOOD ORDERABLES [facility] documented in this encounter Visit Diagnoses Not on filedocumented in this encounter Care Teams Retail Sales Clerk Relationship Specialty Start Date End Date Jonatan Worley MD [address] [place] [address] PCP - General 06/06/21 documented as of this encounter
--- OUTSIDE RECORDS SUMMARY | 2024-09-14 06:17 | XMS_ITS | Encounter Summary ---
Author Organization Isaac Physician Ilana utialmas Address [address] [place] [address] Phone Care Team Providers Care Business Change Manager Name Role Phone Jonatan Worley MD Primary Care Provider [phone] Reason for Visit * Reason Comments Med Refill Encounter Details Date Type Department Care Team ([facility] Contact Info) Description 11/13/2023 Refill [facility] [address] [place] [phone] Rosa Delgado NP [address] [phone] Social History Tobacco Use Types Packs/Day Years [...] Upcoming Encounters Date Type Department Care Team ([facility] Contact Info) Description 09/23/2024 3:40 PM VICE PRESIDENT COMPLIANCE Office Visit [facility] [address] [phone] Rosa Delgado NP [address] [phone] documented as of this encounter Visit Diagnoses Not on filedocumented in this encounter Care Teams Business Change Manager Relationship Specialty Start Date End Date Jonatan Worley MD [address] [place] [address] PCP - General 06/06/21 documented as of this encounter
--- OUTSIDE RECORDS SUMMARY | 2024-09-14 06:17 | XMS_ITS | Encounter Summary ---
Author Organization Isaac Physician Ilana petersen Address [address] [place] [address] Phone Care Team Providers Care Foreign Student Adviser Teacher Name Role Phone Jonatan Worley MD Primary Care Provider [phone] Reason for Visit * Reason Onset Date Comments Med Refill 11/14/2022 Encounter Details Date Type Department Care Team ([facility] Contact Info) Description 11/14/2022 Refill [facility] [address] [phone] Preethi Almendarez RN Diabetes mellitus with renal manifestations, type II or unspecified type, uncontrolled ([facility]) Social History Tobacco Use Types [...] Upcoming Encounters Date Type Department Care Team ([facility] Contact Info) Description 09/23/2024 3:40 PM CARD PROCESSING CLERK Office Visit [facility] [address] [facility] [address] [place], [place] [phone] Rosa Delgado NP [address] [phone] documented as of this encounter Visit Diagnoses Diagnosis Diabetes mellitus with renal manifestations, type II or unspecified type, uncontrolled ([facility]) Diabetes mellitus with renal manifestations, type II or unspecified type, uncontrolled documented in this encounter Care Teams Foreign Student Adviser Teacher Relationship Specialty Start Date End Date Jonatan Worley MD [address] [place] [phone] PCP - General 06/06/21 documented as of this encounter
--- OUTSIDE RECORDS SUMMARY | 2024-09-14 06:17 | XMS_ITS | Encounter Summary ---
Author Organization Isaac Physician Ilana petersen Address [address] [place] [address] Phone Care Team Providers Care Bottle Carrier Name Role Phone Jonatna Worley MD Primary Care Provider [phone] Reason for Visit * Reason Comments CKD Encounter Details Date Type Department Care Team ([facility] st Contact Info) Description 05/15/2023 11:20 AM CDT Office Visit [facility] 5003 [facility] 1 [place] [address] Rosie Hernandez, GRILL ATTENDANT [address] [address] Chronic kidney disease, Stage IV [...] History: Diagnosis Date Acute renal failure syndrome ([facility]) 06/05/2021 Anemia in chronic kidney disease 05/27/2022 Diabetes mellitus without mention of complication, type II or unspecified type, not stated as uncontrolled ([facility]) Essential hypertension History of nonproliferative diabetic [...] visit: Chronic kidney disease, Stage IV (severe) ([facility]) Renal function stable at advanced stage. We [...] manifestations, type II or unspecified type, uncontrolled ([facility]) Goal A1C to be less than 7 [...] Upcoming Encounters Date Type Department Care Team ([facility] st Contact Info) Description 09/23/2024 3:40 PM FOOD SERVICE SPECIALIST Office Visit [facility] 5003 [facility] 1 [place] [address] Rosie Hernandez NP 5[address] [facility] Juan M 1 [place] [address] Scheduled Orders Name Type Priority [...] Routine Chronic kidney disease, Stage IV (severe) ([facility]) Expected: 08/14/2023, Expires: 05/15/2024 Renal Function Panel Lab Routine Chronic kidney disease, Stage IV (severe) ([facility]) Expected: 08/14/2023, Expires: 05/15/2024 documented as of this encounter Visit Diagnoses Diagnosis Chronic kidney disease, Stage IV (severe) ([facility] Primary Chronic kidney disease, Stage IV (severe) Essential (primary) hypertension Diabetes mellitus with renal manifestations, type II or unspecified type, uncontrolled ([facility]) Diabetes mellitus with renal manifestations, type II or unspecified type, uncontrolled Anemia in chronic kidney disease Atrophy of kidney documented in this encounter Care Teams Bottle Carrier Relationship Specialty Start Date End Date Jonatan Worley MD [address] [place] [address] PCP - General 06/06/21 documented as of this encounter
--- OUTSIDE RECORDS SUMMARY | 2024-09-14 06:17 | XMS_ITS | Encounter Summary ---
Author Organization Isaac Physician Ilana utialmas Address [address] [place] [address] Phone Care Team Providers Care Green Chain Worker Name Role Phone Jonatan Worley MD Primary Care Provider [phone] Reason for Visit * Reason Comments Med Refill Encounter Details Date Type Department Care Team ([facility] Contact Info) Description 04/22/2024 Refill [facility] [address] [place] [phone] Rosa Delgado NP [address] [phone] Social History Tobacco Use Types Packs/Day Years [...] Upcoming Encounters Date Type Department Care Team ([facility] Contact Info) Description 09/23/2024 3:[address]PERVISOR Office Visit [facility] [address] [phone] Rosa Delgado NP [address] [phone] documented as of this encounter Visit Diagnoses Not on filedocumented in this encounter Care Teams Green Chain Worker Relationship Specialty Start Date End Date Jonatan Worley MD [address] [place] [address] PCP - General 06/06/21 documented as of this encounter
--- OUTSIDE RECORDS SUMMARY | 2024-09-14 06:17 | XMS_ITS | Encounter Summary ---
Author Organization Isaac Physician Ilana utialmas Address [address] [place] [address] Phone Care Team Providers Care Fisher Trammel Net Name Role Phone Jonatan Worley MD Primary Care Provider [phone] Reason for Visit * Reason Comments Med Refill Encounter Details Date Type Department Care Team ([facility] Contact Info) Description 10/20/2023 Refill [facility] [address] [place] [phone] Rosa Delgado NP [address] [phone] Social History Tobacco Use Types Packs/Day Years [...] Upcoming Encounters Date Type Department Care Team ([facility] Contact Info) Description 09/23/2024 3:40 PM MARKETING ADMINISTRATOR Office Visit [facility] [address] [phone] Rosa Delgado NP [address] [phone] documented as of this encounter Visit Diagnoses Not on filedocumented in this encounter Care Teams Fisher Trammel Net Relationship Specialty Start Date End Date Jonatan Worley MD [address] [place] [address] PCP - General 06/06/21 documented as of this encounter
--- OUTSIDE RECORDS SUMMARY | 2024-09-14 06:17 | XMS_ITS | Encounter Summary ---
Author Organization Isaac Physician Ilana utialmas Address [address] [place] [address] Phone Care Team Providers Care Director Of Oncology Name Role Phone Jonatan Worley MD Primary Care Provider [phone] Reason for Visit * Reason Comments Med Refill Encounter Details Date Type Department Care Team (Late st Contact Info) Description 06/21/2022 Refill [facility] 2[address] [facility] 206 [place] [address] Raji Shook MD 5[address] [facility] 1 [place] [address] Diabetes mellitus with renal manifestations, type II or unspecified type, uncontrolled ([facility]) Social History Tobacco Use Types [...] (Late Contact Info) Description 09/23/2024 3:40 PM CORRECTIONS CASEWORKER Office Visit [facility] 5003 [facility] 1 [place] [address] Rosa Delgado, JAVA APPLICATION ENGINEER [address] [facility] 1 [place] [address] documented as of this encounter Visit Diagnoses Diagnosis Diabetes mellitus with renal manifestations, type II or unspecified type, uncontrolled ([facility]) Diabetes mellitus with renal manifestations, type II or unspecified type, uncontrolled documented in this encounter Care Teams Director Of Oncology Relationship Specialty Start Date End Date Jonatan Worley MD [address] [place] [phone] PCP - General 06/06/21 documented as of this encounter
--- OUTSIDE RECORDS SUMMARY | 2024-09-14 06:17 | XMS_ITS | Encounter Summary ---
Author Organization Isaac Physician Ilana petersen Address [address] [place] [address] Phone Care Team Providers Care Hearing Consultant Name Role Phone Jonatan Worley MD Primary Care Provider [phone] Reason for Visit * Reason Comments Med Refill Encounter Details Date Type Department Care Team (Late Contact Info) Description 01/09/2024 Refill [facility] [address] [phone] Rosa Delgado PROCESS CONSULTANT [address] [address] Diabetes mellitus with renal manifestations, type II or unspecified type, uncontrolled ([facility]) Social History Tobacco Use [...] (Late Contact Info) Description 09/23/2024 3:40 PM FORGE SHOP MACHINE REPAIRER Office Visit [facility] 5003 [facility] 1 [place] [address] Rosa Delgado PROCESS CONSULTANT [address] [phone] documented as of this encounter Visit Diagnoses Diagnosis Diabetes mellitus with renal manifestations, type II or unspecified type, uncontrolled ([facility]) Diabetes mellitus with renal manifestations, type II or unspecified type, uncontrolled documented in this encounter Care Teams Hearing Consultant Relationship Specialty Start Date End Date Jonatan Worley MD [address] [place] [address] PCP - General 06/06/21 documented as of this encounter
--- OUTSIDE RECORDS SUMMARY | 2024-09-14 06:17 | XMS_ITS | Encounter Summary ---
Author Organization [facility] Phys[facility] Ilana utialmas Address [address] [place] [address] Phone Care Team Providers Care Rigging Loft Repairer Name Role Phone Jonatan Worley MD Primary Care Provider [phone] Reason for Visit * Reason Comments Med Refill Encounter Details Date Type Department Care Team (Late st Contact Info) Description 09/07/2022 Refill [facility] [address] [phone] Raji Shook MD [address] [address] Diabetes mellitus with renal manifestations, type II or unspecified type, uncontrolled ([facility]) Social History Tobacco Use Types [...] st Contact Info) Description 09/23/2024 3:40 PM AUTOMATION ENGINEERING MANAGER Office Visit [facility] 5003 [facility] 1 [place] [address] Rosa Delgado NP 5003 [facility] 1 [place] [address] documented as of this encounter Visit Diagnoses Diagnosis Diabetes mellitus with renal manifestations, type II or unspecified type, uncontrolled ([facility]) Diabetes mellitus with renal manifestations, type II or unspecified type, uncontrolled documented in this encounter Care Teams Rigging Loft Repairer Relationship Specialty Start Date End Date Jonatan Worley MD [address] [place] [address] PCP - General 06/06/21 documented as of this encounter
--- OUTSIDE RECORDS SUMMARY | 2024-09-14 06:17 | XMS_ITS | Encounter Summary ---
Author Organization Isaac Physician Ilana petersen Address [address] [place] [address] Phone Care Team Providers Care Charter Representative Name Role Phone Jonatan Worley MD Primary Care Provider [phone] Encounter Details Date Type Department Care Team ([facility] Contact Info) Description 05/05/2024 Orders Only [facility] 5003 [facility] 1 [place] [address] Rosa Delgado NP [address] [address] Social History Tobacco Use Types [...] (Late Contact Info) Description 09/23/2024 3:40 PM PULP REFINER OPERATOR Office Visit [facility] 5003 [facility] 1 [place] [address] Rosa Delgado NP [address] [phone] documented as of this encounter Procedures Procedure [...] Calcidiol, Serum/Plasma 76 30 - 100 ng/mL [employer] [facility] ([facility]) Comment: Vitamin D Status ? 25-OH Vitamin D: Deficiency: ?<20 ng/mL Insufficiency: ? 20 - 29 ng/mL Optimal: ? > or = 30 ng/mL For 25-OH Vitamin D testing on patients on D2-supplementation and patients for whom quantitation of D2 and D3 fractions is required, the QuestAssureD() 25-OH VIT D, (D2,D3), LC/MS/MS is recommended: order code 68965 (patients >2yrs). See Note 1 Note 1 For additional information, please refer to http://education.[email or web address].MusicXray/faq/BRL723 (This link is being provided for informational/ educational purposes only.) 05/05/2024 9:35 AM CDT 05/05/2024 9:35 AM CDT Narrative [facility] ([facility]) - 05/07/2024 2:18 AM CDT FASTING:YES FASTING: YES Resulting Agency Comment Performing Organization Information: ?Site ID: [place] ?Name: [facility] ?Address: [facility] [place] [address] ?Director: Odalys Bangura MD Rosa Delgado INSULATION FOREMAN LAB BLOOD ORDERABLES Performing Organization Address [facility] Co de Phone Number [facility] ([facility]) * Ferritin, Serum (05/05/2024 9:35 AM CDT) Ferritin, Serum/Plasma 122 16 - 288 ng/mL [facility] ([facility]) 05/05/2024 9:35 AM CDT 05/05/2024 9:35 AM CDT Narrative [facility] ([facility]) - 05/07/2024 2:18 AM CDT FASTING:YES FASTING: YES Resulting Agency Comment Performing Organization Information: ?Site ID: [place] ?Name: [facility] ?Address: [address] [place] [id number] ?Director: Odalys Bangura MD Rosa Delgado INSULATION FOREMAN LAB BLOOD ORDERABLES Performing Organization Address [facility] Co de Phone Number [facility] [place] ([facility]) * (ABNORMAL) Iron and TIBC, Serum (05/05/2024 9:35 AM CDT) Iron, Serum/Plasma 32(L) 45 - 160 mcg/dL [facility] ([facility]) Iron binding capacity, Serum/Plasma 201(L) 250 - 450 mcg/dL (calc) [facility] ([facility]) Iron saturation, Serum/Plasma 16 16 - 45 % (calc) [facility] ([facility]) 05/05/2024 9:35 AM CDT 05/05/2024 9:35 AM CDT Narrative [facility] ([facility]) - 05/07/2024 2:18 AM CDT FASTING:YES FASTING: YES Resulting Agency Comment Performing Organization Information: ?Site ID: [place] ?Name: [facility] ?Address: [address] [place] [address] ?Director: Odalys Bangura MD Rosa Delgado NP LAB BLOOD ORDERABLES [employer] . [facility] ([facility]) * (ABNORMAL) PTH Intact and Calcium, Serum (05/05/2024 9:35 AM CDT) PTH, Intact, Serum/Plasma 70 16 - 77 pg/mL [facility] [employer] . [facility] ([facility]) Comment: Interpretive Guide ?Intact PTH ? Calcium ? ------- Normal Parathyroid ?Normal ? Normal Hypoparathyroidism ?Low or Low Normal ?Low Hyperparathyroidism ?? Primary ?Normal or High ? High ?? Secondary ?High ? Normal or Low ?? Tertiary ? High ? High Non-Parathyroid ?? Hypercalcemia ?Low or Low Normal ?High Calcium, Serum/Plasma 8.2(L) 8.6 - 10.4 mg/dL [facility] ([facility]) 05/05/2024 9:35 AM CDT 05/05/2024 9:35 AM CDT Narrative [facility] ([facility]) - 05/07/2024 2:18 AM CDT FASTING:YES FASTING: YES Resulting Agency Comment Performing Organization Information: ?Site ID: [place] ?Name: [facility] ?Address: [address] [place] [address] ?Director: Odalys Bangura MD Rosa Delgado NP LAB BLOOD ORDERABLES [facility] [place] ([facility]) * (ABNORMAL) Renal Function Panel (RFP) (05/05/2024 9:35 AM CDT) Glucose, Serum/Plasma 123(H) 65 - 99 mg/dL [facility] ([facility]) Comment: ? Fasting reference interval For someone without known diabetes, a glucose value between 100 and 125 mg/dL is consistent with prediabetes and should be confirmed with a follow-up test. Urea nitrogen, Serum/Plasma (BUN) 36(H) 7 - 25 mg/dL [facility] [place] ([facility]) Creatinine, Serum/Plasma 2.64(H) 0.50 - 1.05 mg/dL [facility] [place] ([facility]) Estimated Glomerular Filtration Rate (eGFR) 20(L) > OR = 60 mL/min/1.[address] [facility] ([facility]) Urea nitrogen/Creati nine, Serum/Plasma 14 6 - 22 (calc) [facility] [place] ([facility]) Sodium, Serum/Plasma 136 135 - 146 mmol/L [facility] ([facility]) Potassium, Serum/Plasma 4.5 3.5 - 5.3 mmol/L [facility]) Chloride, Serum/Plasma 108 98 - 110 mmol/L [facility] [place] ([facility]) Carbon dioxide CO2), total, Serum/Plasma 20 20 - 32 mmol/L [facility]) Calcium, Serum/Plasma 8.2(L) 8.6 - 10.4 mg/dL [facility]) Phosphate, Serum/Plasma 4.0 2.5 - 4.5 mg/dL [facility]) Albumin, Serum/Plasma 3.0(L) 3.6 - 5.1 g/dL [facility] ([facility]) 05/05/2024 9:35 AM CDT 05/05/2024 9:35 AM CDT Narrative [facility] ([facility]) - 05/07/2024 2:18 AM CDT FASTING:YES FASTING: YES Resulting Agency Comment Performing Organization Information: ?Site ID: ?Name: [email or web address] ?Address: [facility] [place] [address] ?Director: Odalys Bangura Rosa Delgado NP LAB BLOOD ORDERABLES [facility]) * (ABNORMAL) CBC (includes Differential/Platelets) (05/05/2024 9:35 AM CDT) Leukocytes, Blood 6.0 3.8 - 10.8 Thousand/u L [facility] ([facility]) Erythrocytes [...] Performing Organization Information: ?Site ID: [place] ?Name: [facility] ?Address: [facility] [place] [address] ?Director: Odalys Bangura Rosa Delgado NP LAB BLOOD ORDERABLES [facility] documented in this encounter Visit Diagnoses Not on filedocumented in this encounter Care Teams Charter Representative Relationship Specialty Start Date End Date Jonatan Worley MD [address] [place] [address] PCP - General 06/06/21 documented as of this encounter
--- OUTSIDE RECORDS SUMMARY | 2024-09-14 06:17 | XMS_ITS | Encounter Summary ---
Author Organization Isaac Physician Ilana petersen Address [address] [place] [address] Phone Care Team Providers Care Wood Form Builder Name Role Phone Jonatan Worley MD Primary Care Provider [phone] Reason for Visit * Reason Comments CKD Encounter Details Date Type Department Care Team ([facility] st Contact Info) Description 06/12/2022 11:00 AM CDT Telemedicine [facility] 5003 [facility] 1 [place] [address] Rosie Hernandez NP [address] [address] Chronic kidney disease, Stage [...] day ??? ergocalciferol (VITAMIN D-2) 1.25 MG (72731 UT) capsule Take 50,000 Units by mouth [...] visit: Chronic kidney disease, Stage IV (severe) ([facility]) Renal function has returned to baseline. We discussed importance of hydration with use of farxiga and benefit of use with renal disease. She will continue to make efforts to maintain good hydration. At this time without further worsening will see patient back in 4 months with repeat labs. Visit today via phone at [phone] totaling 10 minutes. - CBC (Includes Diff/PLT); Future - PTH Intact w/ Calcium; Future - Renal Function Panel; Future - Urinalysis, Routine; Future - Albumin/Creatinine Ratio, Random, Urine ([facility] Only); Future Diabetes mellitus with renal manifestations, type II or unspecified type, uncontrolled ([facility]) Goal A1C to [...] Contact Info) Description 09/23/2024 3:40 PM PARTS CLERK PLANT MAINTENANCE Office Visit [facility] 5003 [facility] 1 [place] [address] Rosie Hernandez NP [address] [phone] Scheduled Orders Name Type Priority Associated Diagnoses Orde r Schedule CBC (Includes Diff/PLT) Lab Routine Chronic kidney disease, Stage IV (severe) ([facility]) Expected: 09/12/2022, Expires: 06/12/2023 PTH Intact w/ Calcium Lab Routine Chronic kidney disease, Stage IV (severe) ([facility]) Expected: 09/12/2022, Expires: 06/12/2023 Renal Function Panel Lab Routine Chronic kidney disease, Stage IV (severe) ([facility]) Expected: 09/12/2022, Expires: 06/12/2023 Urinalysis, Routine Lab Routine Chronic kidney disease, Stage IV (severe) ([facility]) Expected: 09/12/2022, Expires: 06/12/2023 Albumin/Creatinine Ratio, Random, Urine ([facility] Only) Lab Routine Chronic kidney disease, Stage IV (severe) ([facility]) Expected: 09/12/2022, Expires: 06/12/2023 documented as of this encounter Visit Diagnoses Diagnosis Chronic kidney disease, Stage IV (severe) ([facility] Primary Chronic kidney disease, Stage IV (severe) Diabetes mellitus with renal manifestations, type II or unspecified type, uncontrolled ([facility]) Diabetes mellitus with renal manifestations, type II or unspecified type, uncontrolled Anemia in chronic kidney disease Essential (primary) hypertension documented in this encounter Care Teams Wood Form Builder Relationship Specialty Start Date End Date Jonatan Worley MD [address] [place] [address] PCP - General 06/06/21 documented as of this encounter
--- OUTSIDE RECORDS SUMMARY | 2024-09-14 06:17 | XMS_ITS | Encounter Summary ---
Author Organization [facility] Physician Ilana utialmas Address [address] [place] [address] Phone Care Team Providers Care Nutrition Consultant Name Role Phone Jonatan Worley MD Primary Care Provider [phone] Reason for Visit * Reason Comments Med Refill Encounter Details Date Type Department Care Team ([facility] Contact Info) Description 2023 Refill [facility] [address] [place] [phone] Rosa Delgado NP [address] [phone] Social History Tobacco Use Types Packs/Day Years [...] Upcoming Encounters Date Type Department Care Team ([facility] Contact Info) Description 09/23/2024 3:40 PM CLINICAL FELLOW Office Visit [facility] [address] [phone] Rosa Delgado NP [address] [phone] documented as of this encounter Visit Diagnoses Not on filedocumented in this encounter Care Teams Nutrition Consultant Relationship Specialty Start Date End Date Jonatan Worley MD [address] [place] [address] PCP - General 06/06/21 documented as of this encounter
--- OUTSIDE RECORDS SUMMARY | 2024-09-14 06:17 | XMS_ITS | Encounter Summary ---
Author Organization Isaac Physician Ilana petersen Address [address] [place] [address] Phone Care Team Providers Care Assistant Store Manager Operations Name Role Phone Jonatan Worley MD Primary Care Provider [phone] Reason for Visit * Reason Comments Med Refill Encounter Details Date Type Department Care Team (Late Contact Info) Description 10/09/2023 Refill [facility] [address] [phone] Rosa Delgado WARDROBE CONSULTANT [address] [address] Diabetes mellitus with renal manifestations, type II or unspecified type, uncontrolled ([facility]) Social History Tobacco Use [...] (Late Contact Info) Description 09/23/2024 3:40 PM PROCESS EQUIPMENT OPERATOR Office Visit [facility] 5003 [facility] 1 [place], [place] [phone] Rosa Delgado WARDROBE CONSULTANT [address] [phone] documented as of this encounter Visit Diagnoses Diagnosis Diabetes mellitus with renal manifestations, type II or unspecified type, uncontrolled ([facility]) Diabetes mellitus with renal manifestations, type II or unspecified type, uncontrolled documented in this encounter Care Teams Assistant Store Manager Operations Relationship Specialty Start Date End Date Jonatan Worley MD [address] [place] [address] PCP - General 06/06/21 documented as of this encounter
--- OUTSIDE RECORDS SUMMARY | 2024-09-14 06:17 | XMS_ITS | Encounter Summary ---
Author Organization Isaac Physician Ilana petersen Address [address] [place] [address] Phone Care Team Providers Care Distribution Designer Name Role Phone Jonatan Worley MD Primary Care Provider [phone] Encounter Details Date Type Department Care Team (Latest Contact Info) Description 01/13/2024 12:00 PM CDT Clinical Support [facility] [address] [facility] 1 [place] [address] Rosa Delgado NP [address] [address] Chronic kidney disease, Stage IV [...] take place prior to follow up with beauty therapist. This includes any changes in urinary habits, [...] st Contact Info) Description 09/23/2024 3:40 PM WINDOW GLASS CUTTER OFF Office Visit [facility] 5003 [facility] 1 [place] [address] [place] [address] [place] [phone] documented as of this encounter Visit Diagnoses Diagnosis Chronic kidney disease, Stage IV (severe) ([facility] Primary Chronic kidney disease, Stage IV (severe) documented in this encounter Care Teams Distribution Designer Relationship Specialty Start Date End Date Jonatan Worley MD [address] [place] [address] PCP - General 06/06/21 documented as of this encounter
--- OUTSIDE RECORDS SUMMARY | 2024-09-14 06:17 | XMS_ITS | Encounter Summary ---
Author Organization Isaac Physician Ilana petersen Address [address] [place] [address] Phone Care Team Providers Care Fur Trapper Name Role Phone Jonatan Worley MD Primary Care Provider [phone] Reason for Visit * Reason Comments CKD Encounter Details Date Type Department Care Team ([facility] st Contact Info) Description 05/20/2024 11:00 AM CDT Office Visit [facility] 5003 [facility] 1 [place] [address] Rosie Hernandez NP [address] [address] Chronic kidney disease, Stage IV [...] up. Was recently hospitalized in March at [facility] for pneumonia, dehydration, and UTI. She [...] visit: Chronic kidney disease, Stage IV (severe) ([facility]) - PTH Intact w/ Calcium; Future - Renal Function Panel; Future Diabetes mellitus with renal manifestations, type II or unspecified type, uncontrolled ([facility]) Essential (primary) hypertension Anemia in chronic kidney [...] st Contact Info) Description 09/23/2024 3:40 PM PHARMACEUTICAL ASSISTANT Office Visit [facility] 5003 [facility] 1 [place] [address] Rosie Hernandez NP [address] [address] Scheduled Orders Name Type Priority Associated Diagnoses [...] acidosis documented in this encounter Care Teams Fur Trapper Relationship Specialty Start Date End Date Jonatan Worley MD [address] [place] [address] PCP - General 06/06/21 documented as of this encounter
--- OUTSIDE RECORDS SUMMARY | 2024-09-14 06:17 | XMS_ITS | Encounter Summary ---
Author Organization Isaac Physician Ilana petersen Address [address] [place] [address] Phone Care Team Providers Care Senior Data Developer Name Role Phone Jonatan Worley MD Primary Care Provider [phone] Encounter Details Date Type Department Care Team ([facility] Contact Info) Description 01/30/2023 Orders Only [facility] [address] [place] [address] 1 [place] [address] Rosa Delgado NP [address] [address] Social History Tobacco Use Types [...] (Late Contact Info) Description 09/23/2024 3:40 PM AERODYNAMICS PROFESSOR Office Visit [facility] 5003 [facility] 1 [place] [address] Rosa Delgado NP [address] [phone] documented as of this encounter Procedures Procedure [...] AM CDT 01/30/2023 9:42 AM CDT Narrative [facility] ([facility] - 01/31/2023 6:08 PM CDT FASTING:YES FASTING: YES Resulting Agency Comment Performing Organization Information: ?Site ID: [address] ?Name: POI ?Address: [address] [address] ?Director: Odalys Bangura MD Rosa L Delgado CROCHETER HAND LAB URINE ORDERABLES [facility] ([facility]) * (ABNORMAL) PTH Intact and Calcium, Serum (01/30/2023 9:41 AM CDT) PTH, Intact, Serum/Plasma 133(H) 16 - 77 pg/mL [facility] ([facility]) Comment: Interpretive Guide ?Intact PTH ? Calcium ? ------- Normal Parathyroid ?Normal ? Normal Hypoparathyroidism ?Low or Low Normal ?Low Hyperparathyroidism ?? Primary ?Normal or High ? High ?? Secondary ?High ? Normal or Low ?? Tertiary ? High ? High Non-Parathyroid ?? Hypercalcemia ?Low or Low Normal ?High Calcium, Serum/Plasma 8.7 8.6 - 10.4 mg/dL [facility] ([facility]) 01/30/2023 9:41 AM CDT 01/30/2023 9:42 AM CDT Narrative [facility] ([facility]) - 01/31/2023 6:08 PM CDT FASTING:YES FASTING: YES Resulting Agency Comment Performing Organization Information: ?Site ID: [place] ?Name: [employer] ?Address: [address] [address] ?Director: Odalys Bangura MD Rosa Delgado NP LAB BLOOD ORDERABLES [facility] (ST) * (ABNORMAL) Renal Function Panel (RFP) (01/30/2023 9:41 AM CDT) Glucose, Serum/Plasma 109(H) 65 - 99 mg/dL [facility] ([facility]) Comment: ? Fasting reference interval For someone without known diabetes, a glucose value between 100 and 125 mg/dL is consistent with prediabetes and should be confirmed with a follow-up test. Urea nitrogen, Serum/Plasma (BUN) 46(H) 7 - 25 mg/dL [facility] ([facility]) Creatinine, Serum/Plasma 2.55(H) 0.50 - 1.05 mg/dL [facility] ([facility]) Estimated Glomerular Filtration Rate (eGFR) 21(L) > OR = 60 mL/min/1.7 3m2 [facility] ([facility]) Comment: The eGFR is based on the CKD-EPI 2020 equation. To calculate the new eGFR from a previous Creatinine or Cystatin C result, go to https://www.kidney.org/professionals/ kdoqi/gfr%5Fcalculator Urea nitrogen/Creati nine, Serum/Plasma 18 6 - 22 (calc) [facility] ([facility]) Sodium, Serum/Plasma 138 135 - 146 mmol/L [facility] ([facility]) Potassium, Serum/Plasma 4.8 3.5 - 5.3 mmol/L [facility] ([facility]) Chloride, Serum/Plasma 111(H) 98 - 110 mmol/L [facility] ([facility]) Carbon dioxide CO2), total, Serum/Plasma 22 20 - 32 mmol/L [facility] ([facility]) Calcium, Serum/Plasma 8.4(L) 8.6 - 10.4 mg/dL [facility] ([facility]) Phosphate, Serum/Plasma 5.3(H) [...] Comment Performing Organization Information: ?Site ID: ?Name: [facility] ?Address: [facility] [place] [address] ?Director: Odalys Bangura Rosa Delgado NP LAB [...] Protein, Urine 3+(A) NEGATIVE [facility] ([facility]) Nitrite, Urine NEGATIVE NEGATIVE [facility] ([facility]) Leukocyte esterase, Urine NEGATIVE NEGATIVE [facility]) Leukocytes, Urine sediment 6-10(A) < OR = 5 /HPF [facility] ([facility]) Erythrocytes, Urine sediment NONE SEEN < OR = 2 /HPF [facility] ([facility]) Epithelial cells, squamous, Urine sediment 0-5 < OR = 5 /HPF [facility] ([facility]) Bacteria, Urine sediment NONE SEEN NONE SEEN /HPF [facility] ([facility]) Triple phosphate crystals, Urine sediment MODERATE(A) NONE OR FEW /HPF [facility] ([facility]) Hyaline casts, Urine sediment NONE SEEN NONE SEEN /LPF [facility] ([facility]) Service comment [facility] ([facility]) Comment: This urine was analyzed for the presence of WBC, RBC, bacteria, casts, and other formed elements. Only those elements seen were reported. 01/30/2023 9:41 AM CDT 01/30/2023 9:42 AM CDT Narrative [facility] ([facility]) - 01/31/2023 6:08 PM CDT FASTING:YES FASTING: YES Resulting Agency Comment Performing Organization Information: ?Site ID: ?Name: [facility] ?Address: [facility] [place] [address] ?Director: Odalys Bangura Rosa Delgado NP LAB URINE ORDERABLES [facility] ([facility] * (ABNORMAL) CBC (includes Differential/Platelets) (01/30/2023 9:41 AM CDT) Leukocytes, Blood 10.2 3.8 - 10.8 Thousand/u L [facility] ([facility]) Erythrocytes (RBC) 3.64(L) 3.80 - 5.10 Million/uL [facility] ([facility]) Hemoglobin (HGB) 10.7(L) 11.7 - 15.5 g/dL [facility] [...] Comment Performing Organization Information: ?Site ID: ?Name: [facility] ?Address: [address] [address] ?Director: Odalys Bangura Rosa Delgado CROCHETER HAND LAB BLOOD ORDERABLES [facility] documented in this encounter Visit Diagnoses Not on filedocumented in this encounter Care Teams Senior Data Developer Relationship Specialty Start Date End Date Jonatan Worley MD [address] [place] [address] PCP - General 06/06/21 documented as of this encounter
--- OUTSIDE RECORDS SUMMARY | 2024-09-14 06:17 | XMS_ITS | Encounter Summary ---
Author Organization Isaac Physician Ilana utialmas Address [address] [place] [address] Phone Care Team Providers Care Bulk Delivery Driver Name Role Phone Jonatan Worley MD Primary Care Provider [phone] Reason for Visit * Reason Comments Med Refill Encounter Details Date Type Department Care Team (Late st Contact Info) Description 07/09/2022 Refill [facility] [address] [phone] Raji Shook MD [address] [address] Diabetes mellitus with renal manifestations, type II or unspecified type, uncontrolled ([facility]) Social History Tobacco Use Types Packs/Day Years [...] st Contact Info) Description 09/23/2024 3:40 PM PRACTICING DERMATOLOGIST Office Visit [facility] 5003 [facility] 1 [place] [address] Rosa Delgado NP 5003 [facility] 1 [place] [address] documented as of this encounter Visit Diagnoses Diagnosis Diabetes mellitus with renal manifestations, type II or unspecified type, uncontrolled ([facility]) Diabetes mellitus with renal manifestations, type II or unspecified type, uncontrolled documented in this encounter Care Teams Bulk Delivery Driver Relationship Specialty Start Date End Date Jonatan Worley MD [address] [place] [address] PCP - General 06/06/21 documented as of this encounter
--- OUTSIDE RECORDS SUMMARY | 2024-09-14 06:17 | XMS_ITS | Encounter Summary ---
Author Organization Isaac Physician Ilana utialmas Address [address] [place] [address] Phone Care Team Providers Care Adult Secondary Education Instructor Name Role Phone Jonatan Worley MD Primary Care Provider [phone] Reason for Visit * Reason Comments Med Refill Encounter Details Date Type Department Care Team (Late st Contact Info) Description 02/07/2024 Refill [facility] [address] [phone] Raji Shook MD [address] [address] Diabetes mellitus with renal manifestations, type II or unspecified type, uncontrolled ([facility]) Social History Tobacco Use Types Packs/Day [...] st Contact Info) Description 09/23/2024 3:40 PM ELEVATING GRADER OPERATOR Office Visit [facility] 5003 [facility] 1 [place] [address] Rosa Delgado NP 5003 [facility] 1 [place] [address] documented as of this encounter Visit Diagnoses Diagnosis Diabetes mellitus with renal manifestations, type II or unspecified type, uncontrolled ([facility]) Diabetes mellitus with renal manifestations, type II or unspecified type, uncontrolled documented in this encounter Care Teams Adult Secondary Education Instructor Relationship Specialty Start Date End Date Jonatan Worley MD [address] [place] [address] PCP - General 06/06/21 documented as of this encounter
--- OUTSIDE RECORDS SUMMARY | 2024-09-14 06:17 | XMS_ITS | Encounter Summary ---
Author Organization Isaac Physician Ilana petersen Address [address] [place] [address] Phone Care Team Providers Care Interior Block Wirer Name Role Phone Jonatan Worley MD Primary Care Provider [phone] Encounter Details Date Type Department Care Team ([facility] Contact Info) Description 12/29/2023 Orders Only [facility] 5003 [facility] 1 [place] [address] Rosa Delgado NP [address] [address] Social History Tobacco Use Types [...] (Late Contact Info) Description 09/23/2024 3:40 PM HEALTH SCIENCES MANAGER Office Visit [facility] 5003 [facility] 1 [place] [address] Rosa Delgado NP [address] [address] documented as of this encounter [...] Ferritin, Serum/Plasma 73 16 - 288 ng/mL [facility]) 12/29/2023 9:40 AM CDT 12/29/2023 9:40 AM CDT Narrative [facility] ([facility]) - 12/30/2023 6:55 AM CDT FASTING:YES AN UPDATE OR CORRECTION HAS BEEN MADE TO NAME FASTING: YES Resulting Agency Comment Performing Organization Information: ?Site ID: [place] ?Name: [facility] ?Address: [address] [place] [address] ?Director: Odalys Bangura MD Rosa Delgado NP LAB BLOOD ORDERABLES [facility]) * (ABNORMAL) Iron and TIBC, Serum (12/29/2023 9:40 AM CDT) Pathologist [facility] Iron, Serum/Plasma 44(L) 45 - 160 mcg/dL [facility] ([facility]) Iron binding capacity, Serum/Plasma 256 250 - 450 mcg/dL (calc) [facility] ([facility]) Iron saturation, Serum/Plasma 17 16 - 45 % (calc) [facility] ([facility]) 12/29/2023 9:40 AM CDT 12/29/2023 9:40 AM CDT Narrative [facility] ([facility]) - 12/30/2023 6:55 AM CDT FASTING:YES AN UPDATE OR CORRECTION HAS BEEN MADE TO NAME FASTING: YES Resulting Agency Comment Performing Organization Information: ?Site ID: [place] ?Name: [facility] ?Address: [address] [address] ?Director: Odalys Bangura MD Rosa Delgado NP LAB BLOOD ORDERABLES [facility] ([facility]) * (ABNORMAL) PTH Intact and Calcium, Serum (12/29/2023 9:40 AM CDT) PTH, Intact, Serum/Plasma 111(H) 16 - 77 pg/mL [facility] ([facility]) Comment: Interpretive [...] AM CDT 12/29/2023 9:40 AM CDT Narrative [facility] ([facility]) - 12/30/2023 6:55 AM CDT FASTING:YES AN UPDATE OR CORRECTION HAS BEEN MADE TO NAME FASTING: YES Resulting Agency Comment Performing Organization Information: ?Site ID: [place] ?Name: [facility] ?Address: [facility] [address] [place] [address] ?Director: Odalys Bangura MD Rosa Delgado NP LAB BLOOD ORDERABLES [facility] ([facility]) * (ABNORMAL) Renal Function Panel (RFP) (12/29/2023 9:40 AM CDT) Glucose, Serum/Plasma 180(H) 65 - 99 mg/dL [facility]) Comment: ? Fasting reference interval For someone without known diabetes, a glucose value >125 mg/dL indicates that they may have diabetes and this should be confirmed with a follow-up test. Urea nitrogen, Serum/Plasma (BUN) 50(H) 7 - 25 mg/dL [facility] ([facility]) Creatinine, Serum/Plasma 3.12(H) 0.50 - 1.05 mg/dL [facility]) Estimated Glomerular Filtration Rate (eGFR) 16(L) > OR = 60 mL/min/1.7 3m2 [facility] ([facility]) Urea nitrogen/Creati nine, Serum/Plasma 16 6 - 22 (calc) [facility] ([facility]) Sodium, Serum/Plasma 134(L) 135 - 146 mmol/L [facility]) Potassium, Serum/Plasma 4.8 3.5 - 5.3 mmol/L [facility] ([facility]) Chloride, Serum/Plasma 108 98 - 110 mmol/L [facility] ([facility]) Carbon dioxide CO2), total, Serum/Plasma 19(L) 20 - 32 mmol/L [facility] ([facility]) Calcium, Serum/Plasma 8.3(L) 8.6 - 10.4 mg/dL [facility]) Phosphate, Serum/Plasma 4.9(H) 2.5 - 4.5 mg/dL [facility]) Albumin, Serum/Plasma 3.5(L) 3.6 - 5.1 g/dL [facility]) 12/29/2023 9:40 AM CDT 12/29/2023 9:40 AM CDT Narrative [facility] ([facility] - 12/30/2023 6:55 AM CDT FASTING:YES AN UPDATE OR CORRECTION HAS BEEN MADE TO NAME FASTING: YES Resulting Agency Comment Performing Organization Information: ?Site ID: ?Name: [facility] ?Address: [facility] [place] [address] ?Director: Odalys Bangura Rosa Delgado NP LAB BLOOD ORDERABLES [facility] ([facility]) * (ABNORMAL) CBC (includes Differential/Platelets) (12/29/2023 9:40 AM CDT) Leukocytes, Blood 6.2 3.8 - 10.8 Thousand/u L [facility] ([facility]) Erythrocytes (RBC) 3.24(L) 3.80 - 5.10 Million/uL [facility] ([facility]) Hemoglobin (HGB) 9.7(L) 11.7 - 15.5 g/dL [facility] ([facility]) Hematocrit (HCT) [...] Performing Organization Information: ?Site ID: [place] ?Name: [employer] [employer] ?Address: [address] [place] [address] ?Director: Odalys Bangura Rosa Delgado CONSTRUCTION SERVICES TECHNICIAN LAB BLOOD ORDERABLES [facility] documented in this encounter Visit Diagnoses Not on filedocumented in this encounter Care Teams Interior Block Wirer Relationship Specialty Start Date End Date Jonatan Worley MD [address] [place] [phone] PCP - General 06/06/21 documented as of this encounter
--- OUTSIDE RECORDS SUMMARY | 2024-09-14 06:17 | XMS_ITS | Encounter Summary ---
Author Organization Isaac Physician Ilana petersen Address [address] [place] [address] Phone Care Team Providers Care Profiler Hand Name Role Phone Jonatan Worley MD Primary Care Provider [phone] Reason for Visit * Reason Comments Med Refill Encounter Details Date Type Department Care Team (Late Contact Info) Description 12/10/2023 Refill [facility] [address] [phone] Rosa Delgado AUTOMOTIVE ALIGNMENT SPECIALIST [address] [address] Diabetes mellitus with renal manifestations, type II or unspecified type, uncontrolled ([facility]) Social History Tobacco Use [...] (Late Contact Info) Description 09/23/2024 3:40 PM SENIOR INTERACTIVE PRODUCER Office Visit [facility] 5003 [facility] 1 [place], [place] [phone] Rosa Delgado AUTOMOTIVE ALIGNMENT SPECIALIST [address] [phone] documented as of this encounter Visit Diagnoses Diagnosis Diabetes mellitus with renal manifestations, type II or unspecified type, uncontrolled ([facility]) Diabetes mellitus with renal manifestations, type II or unspecified type, uncontrolled documented in this encounter Care Teams Profiler Hand Relationship Specialty Start Date End Date Jonatan Worley MD [address] [place] [address] PCP - General 06/06/21 documented as of this encounter
--- OUTSIDE RECORDS SUMMARY | 2024-09-14 06:17 | XMS_ITS | Encounter Summary ---
Author Organization Isaac Physician Ilana utialmas Address [address] [place] [address] Phone Care Team Providers Care Tax Consultant Name Role Phone Jonatan Worley MD Primary Care Provider [phone] Reason for Visit * Reason Comments Med Refill Encounter Details Date Type Department Care Team ([facility] Contact Info) Description 05/23/2024 Refill [facility] [address] [place] [phone] Rosa Delgado NP [address] [phone] Social History Tobacco Use Types Packs/Day Years [...] Encounters Date Type Department Care Team ([facility] Contact Info) Description 09/23/2024 3:40 PM SOUP MIXER Office Visit [facility] [address] [phone] Rosa Delgado NP [address] [phone] documented as of this encounter Visit Diagnoses Not on filedocumented in this encounter Care Teams Tax Consultant Relationship Specialty Start Date End Date Jonatan Worley MD [address] [place] [address] PCP - General 06/06/21 documented as of this encounter
--- OUTSIDE RECORDS SUMMARY | 2024-09-14 06:17 | XMS_ITS | Encounter Summary ---
Author Organization Isaac Physician Ilana petersen Address [address] [place] [address] Phone Care Team Providers Care Bindery Assistant Name Role Phone Jonatan Worley MD Primary Care Provider [phone] Reason for Visit * Reason Comments CKD Encounter Details Date Type Department Care Team ([facility] st Contact Info) Description 02/06/2023 10:40 AM CDT Office Visit [facility] 5003 [facility] 1 [place] [address] Rosie Hernandez SALON/SPA MANAGER [address] [address] Chronic kidney disease, Stage IV [...] 2 ??? ergocalciferol (VITAMIN D-2) 1.25 MG (85631 UT) capsule Take 50,000 Units by mouth [...] visit: Chronic kidney disease, Stage IV (severe) ([facility]) Patient was concerned about dialysis and we [...] manifestations, type II or unspecified type, uncontrolled ([facility]) Goal A1C to be [...] Upcoming Encounters Date Type Department Care Team ([facility] st Contact Info) Description 09/23/2024 3:40 PM TUBE FORMER OPERATOR Office Visit [facility] 5003 [facility] 1 [place] [address] Rosie Hernandez NP [address] [address] Scheduled Orders Name Type Priority Associated Diagnoses Orde r Schedule Urinalysis, Routine Lab Routine Chronic kidney disease, Stage IV (severe) ([facility]) Expected: 05/09/2023, Expires: 02/07/2024 CBC (Includes Diff/PLT) Lab Routine Chronic kidney disease, Stage IV (severe) ([facility]) Expected: 05/09/2023, Expires: 02/07/2024 PTH Intact w/ Calcium Lab Routine Chronic kidney disease, Stage IV (severe) ([facility]) Expected: 05/09/2023, Expires: 02/07/2024 Renal Function Panel Lab Routine Chronic kidney disease, Stage IV (severe) ([facility]) Expected: 05/09/2023, Expires: 02/07/2024 Albumin/Creatinine Ratio, Random, Urine ([facility] Only) Lab Routine Chronic kidney disease, Stage IV (severe) ([facility]) Expected: 05/09/2023, Expires: 02/07/2024 documented as of this encounter Visit Diagnoses Diagnosis Chronic kidney disease, Stage IV (severe) ([facility] Primary Chronic kidney disease, Stage IV (severe) Essential (primary) hypertension Diabetes mellitus with renal manifestations, type II or unspecified type, uncontrolled ([facility]) Diabetes mellitus with renal manifestations, type II or unspecified type, uncontrolled Atrophy of kidney Anemia in chronic kidney disease documented in this encounter Care Teams Bindery Assistant Relationship Specialty Start Date End Date Jonatan Worley MD [address] [place] [phone] PCP - General 06/06/21 documented as of this encounter
--- OUTSIDE RECORDS SUMMARY | 2024-09-14 06:17 | XMS_ITS | Encounter Summary ---
Author Organization Isaac Physician Ilana petersen Address [address] [place] [address] Phone Care Team Providers Care Worship Director Name Role Phone Jonatan Worley MD Primary Care Provider [phone] Reason for Visit * Reason Comments CKD Encounter Details Date Type Department Care Team ([facility] st Contact Info) Description 10/03/2022 11:40 AM ELECTRICIAN'S ASSISTANT Telemedicine [employer] [facility] 5[address] [facility] 1 [place] [address] Rosie Hernandez NP [address] [address] Chronic kidney disease, Stage IV [...] cm (5' 7 ) 10/03/2022 8:38 AM ELECTRICIAN'S ASSISTANT Body Mass Index - - documented in [...] day ??? ergocalciferol (VITAMIN D-2) 1.25 MG (63591 UT) capsule Take 50,000 Units by mouth [...] visit: Chronic kidney disease, Stage IV (severe) ([facility]) Stable renal function. Has fluctuations in creatinine [...] maintain hydration. Visit today via phone at [phone], while patient at her residence with spouse present, [id number] minutes. Will follow up in 4 months [...] manifestations, type II or unspecified type, uncontrolled ([facility]) Goal A1C to be less than 7 Had elevated readings at prior appt but improving as of late with this AM FSBS 115 Anemia in chronic kidney disease Stable and will monitor Atrophy of kidney ROSIE HERNANDEZ NP documented in this encounter Plan of Treatment Upcoming Encounters Date Type Department Care Team (Late Contact Info) Description 09/23/2024 3:40 PM ELECTRICIAN'S ASSISTANT Office Visit [employer] [address] [facility] [place] [address] Rosie Hernandez NP 5003 [facility] Juan M 1 [place], [place] [phone] Scheduled Orders Name Type Priority Associated Diagnoses Orde r Schedule CBC (Includes Diff/PLT) Lab Routine Chronic kidney disease, Stage IV (severe) ([facility]) Expected: 12/31/2022, Expires: 10/03/2023 PTH Intact w/ Calcium Lab Routine Chronic kidney disease, Stage IV (severe) ([facility]) Expected: 12/31/2022, Expires: 10/03/2023 Renal Function Panel Lab Routine Chronic kidney disease, Stage IV (severe) ([facility]) Expected: 12/31/2022, Expires: 10/03/2023 Albumin/Creatinine Ratio, Random, Urine ([facility] Only) Lab Routine Chronic kidney disease, Stage IV (severe) ([facility]) Expected: 12/31/2022, Expires: 10/03/2023 Urinalysis, Routine Lab Routine Chronic kidney disease, Stage IV (severe) ([facility]) Expected: 12/31/2022, Expires: 10/03/2023 documented as of this encounter Visit Diagnoses Diagnosis Chronic kidney disease, Stage IV (severe) ([facility] Primary Chronic kidney disease, Stage IV (severe) Essential (primary) hypertension Diabetes mellitus with renal manifestations, type II or unspecified type, uncontrolled ([facility]) Diabetes mellitus with renal manifestations, type II or unspecified type, uncontrolled Anemia in chronic kidney disease Atrophy of kidney documented in this encounter Care Teams Worship Director Relationship Specialty Start Date End Date Jonatan Worley MD [address] [place] [address] PCP - General 06/06/21 documented as of this encounter
--- OUTSIDE RECORDS SUMMARY | 2024-09-14 06:17 | XMS_ITS | Encounter Summary ---
Author Organization Isaac Physician Ilana petersen Address [address] [place] [address] Phone Care Team Providers Care Capsule Machine Operator Name Role Phone Jonatan Worley MD Primary Care Provider [phone] Reason for Visit * Reason Comments Med Refill Encounter Details Date Type Department Care Team (Late Contact Info) Description 11/08/2023 Refill [facility] [address] [phone] Rosa Delgado CURRICULUM COUNSELOR [address] [address] Diabetes mellitus with renal manifestations, type II or unspecified type, uncontrolled ([facility]) Social History Tobacco Use [...] (Late Contact Info) Description 09/23/2024 3:40 PM LOCKSTITCH WAISTLINE JOINER Office Visit [facility] 5[address] [facility] 1 [place], [place] [phone] Rosa Delgado CURRICULUM COUNSELOR [address] [phone] documented as of this encounter Visit Diagnoses Diagnosis Diabetes mellitus with renal manifestations, type II or unspecified type, uncontrolled ([facility]) Diabetes mellitus with renal manifestations, type II or unspecified type, uncontrolled documented in this encounter Care Teams Capsule Machine Operator Relationship Specialty Start Date End Date Jonatan Worley MD [address] [place] [address] PCP - General 06/06/21 documented as of this encounter
--- OUTSIDE RECORDS SUMMARY | 2024-09-14 06:17 | XMS_ITS | Encounter Summary ---
Author Organization Isaac Physician Ilana petersen Address [address] [place] [address] Phone Care Team Providers Care Data Warehousing Engineer Name Role Phone Jonatan Worley MD Primary Care Provider [phone] Reason for Visit * Reason Comments CKD Encounter Details Date Type Department Care Team ([facility] st Contact Info) Description 09/04/2023 10:20 AM TOE TRIMMER Office Visit [facility] [address] [facility] 1 [place] [address] Rosie Hernandez, COPPER PLATE LITHOGRAPHER [address] [address] Chronic kidney disease, Stage IV [...] Comments Blood Pressure 150/83 09/04/2023 10:14 AM TOE TRIMMER Pulse 71 09/04/2023 10:14 AM TOE TRIMMER Temperature - - Respiratory Rate - - Oxygen Saturation - - Inhaled Oxygen Concentration - - Weight 104 kg (230 lb) 09/04/2023 10:14 AM TOE TRIMMER Height 170.2 cm (5' 7 ) 09/04/2023 10:14 AM TOE TRIMMER Body Mass Index 36.02 09/04/2023 10:14 AM TOE TRIMMER documented in this encounter Progress Notes * [...] or unspecified type, not stated as uncontrolled ([facility]) Essential hypertension History of nonproliferative [...] visit: Chronic kidney disease, Stage IV (severe) ([facility]) Renal function is stable with [...] type II or unspecified type, uncontrolled ([facility]) Goal A1C to be less [...] Upcoming Encounters Date Type Department Care Team ([facility] st Contact Info) Description 09/23/2024 3:40 PM TOE TRIMMER Office Visit [facility] [address] [facility] 1 [place] [address] Rosie Hernandez NP [address] [address] Scheduled Orders Name Type Priority Associated Diagnoses Orde r Schedule CBC (Includes Diff/PLT) Lab Routine Anemia in chronic kidney disease Expected: 12/04/2023, Expires: 09/04/2024 Renal Function Panel Lab Routine Chronic kidney disease, Stage IV (severe) ([facility]) Expected: 12/04/2023, Expires: 09/04/2024 Iron And TIBC Lab Routine Anemia in chronic kidney disease Expected: 12/04/2023, Expires: 09/04/2024 Ferritin Lab Routine Anemia in chronic kidney disease Expected: 12/04/2023, Expires: 09/04/2024 PTH Intact w/ Calcium Lab Routine Chronic kidney disease, Stage IV (severe) ([facility]) Expected: 12/04/2023, Expires: 09/04/2024 documented as of this encounter Visit Diagnoses Diagnosis Chronic kidney disease, Stage IV (severe) ([facility] Primary Chronic kidney disease, Stage IV (severe) Diabetes mellitus with renal manifestations, type II or unspecified type, uncontrolled ([facility]) Diabetes mellitus with renal manifestations, type II or unspecified type, uncontrolled Essential (primary) hypertension Anemia in chronic kidney disease Atrophy of kidney documented in this encounter Care Teams Data Warehousing Engineer Relationship Specialty Start Date End Date Jonatan Worley MD [address] [place] [address] PCP - General 06/06/21 documented as of this encounter
--- OUTSIDE RECORDS SUMMARY | 2024-09-14 06:17 | XMS_ITS | Encounter Summary ---
Author Organization Isaac Physician Ilana petersen Address [address] [place] [address] Phone Care Team Providers Care Day Care Provider Name Role Phone Jonatan Worley MD Primary Care Provider [phone] Reason for Visit * Reason Onset Date Comments Med Refill 01/21/2024 Encounter Details Date Type Department Care Team ([facility] Contact Info) Description 01/21/2024 Refill [facility] [address] [address] Preethi Almendarez RN Social History Tobacco Use [...] Upcoming Encounters Date Type Department Care Team ([facility] Contact Info) Description 09/23/2024 3:40 PM USED CAR SALES MANAGER Office Visit [facility] [address] [address] Rosa Delgado NP [address] [address] documented as of this encounter Visit Diagnoses Not on filedocumented in this encounter Care Teams Day Care Provider Relationship Specialty Start Date End Date Jonatan Worley MD [address] [place] [address] PCP - General 06/06/21 documented as of this encounter
--- OUTSIDE RECORDS SUMMARY | 2024-09-14 06:17 | XMS_ITS | Encounter Summary ---
Author Organization Isaac Physician Ilana petersen Address [address] [place] [address] Phone Care Team Providers Care Radiology Aide Name Role Phone Jonatan Worley MD Primary Care Provider [phone] Reason for Visit * Reason Onset Date Comments Med Refill 04/07/2024 Encounter Details Date Type Department Care Team ([facility] Contact Info) Description 04/07/2024 Refill [facility] [address] [address] Preethi Almendarez RN Diabetes mellitus with renal manifestations, type II or unspecified type, uncontrolled ([facility]) Social History Tobacco Use Types Packs/Day [...] Care Team ([facility] Contact Info) Description 09/23/2024 3:40 PM INVENTORY CONTROL PLANNER Office Visit [facility] 5[address] [facility] 1 [place], [place] [phone] Rosa Delgado NP [address] [phone] documented as of this encounter Visit Diagnoses Diagnosis Diabetes mellitus with renal manifestations, type II or unspecified type, uncontrolled ([facility]) Diabetes mellitus with renal manifestations, type II or unspecified type, uncontrolled documented in this encounter Care Teams Radiology Aide Relationship Specialty Start Date End Date Jonatan Worley MD [address] [place] [phone] PCP - General 06/06/21 documented as of this encounter
--- OUTSIDE RECORDS SUMMARY | 2024-09-14 06:17 | XMS_ITS | Encounter Summary ---
Author Organization Isaac Physician Ilana petersen Address [address] [place] [address] Phone Care Team Providers Care Technology Teacher Name Role Phone Jonatan Worley MD Primary Care Provider [phone] Reason for Visit * Reason Comments CKD Encounter Details Date Type Department Care Team ([facility] st Contact Info) Description 01/01/2024 10:00 AM CDT Office Visit [facility] 5[address] [facility] 1 [place] [address] Rosie Hernandez NP [address] [address] Chronic kidney disease, Stage IV [...] visit: Chronic kidney disease, Stage IV (severe) ([facility]) Renal function continues to slowly worsen. I [...] manifestations, type II or unspecified type, uncontrolled ([facility]) Goal A1C to be [...] st Contact Info) Description 09/23/2024 3:40 PM FLARE WORKER Office Visit [facility] [address] [facility] [place] [address] Rosie Hernandez NP [address] [address] Scheduled Orders Name Type Priority Associated Diagnoses Orde r Schedule CBC (Includes Diff/PLT) Lab Routine Anemia in chronic kidney disease Expected: 04/02/2024, Expires: 12/31/2024 Ferritin Lab Routine Anemia in chronic kidney disease Expected: 04/02/2024, Expires: 12/31/2024 Iron And TIBC Lab Routine Anemia in chronic kidney disease Expected: 04/02/2024, Expires: 12/31/2024 PTH Intact w/ Calcium Lab Routine Chronic kidney disease, Stage IV (severe) ([facility]) Expected: 04/02/2024, Expires: 12/31/2024 Renal Function Panel Lab Routine Chronic kidney disease, Stage IV (severe) ([facility]) Expected: 04/02/2024, Expires: 12/31/2024 Vitamin D, 25-Hydroxy Lab Routine Chronic kidney disease, Stage IV (severe) ([facility]) Expected: 04/02/2024, Expires: 12/31/2024 documented as of this encounter Visit Diagnoses Diagnosis Chronic kidney disease, Stage IV (severe) ([facility] Primary Chronic kidney disease, Stage IV (severe) Diabetes mellitus with renal manifestations, type II or unspecified type, uncontrolled ([facility]) Diabetes mellitus with renal manifestations, type II or unspecified type, uncontrolled Essential (primary) hypertension Anemia in chronic kidney disease documented in this encounter Care Teams Technology Teacher Relationship Specialty Start Date End Date Jonatan Worley MD [address] [place] [phone] PCP - General 06/06/21 documented as of this encounter
--- OUTSIDE RECORDS SUMMARY | 2024-09-14 06:18 | XMS_ITS | Encounter Summary ---
Author Organization Isaac Physician Ilana utialmas Address [address] [place] [address] Phone Care Team Providers Care [place] Boatman Name Role Phone Jonatan Worley MD Primary Care Provider [phone] Reason for Visit * Reason Comments Med Refill Encounter Details Date Type Department Care Team (Late st Contact Info) Description 06/07/2022 Refill [facility] [address] [phone] Raji Shook MD [address] [address] Diabetes mellitus with renal manifestations, type II or unspecified type, uncontrolled ([facility]) Social History Tobacco [...] st Contact Info) Description 09/23/2024 3:40 PM SPECIAL WARFARE OPERATOR Office Visit [facility] 5[address] [facility] 1 [place] [address] Rosa Delgado NP 5003 [facility] 1 [place] [address] documented as of this encounter Visit Diagnoses Diagnosis Diabetes mellitus with renal manifestations, type II or unspecified type, uncontrolled ([facility]) Diabetes mellitus with renal manifestations, type II or unspecified type, uncontrolled documented in this encounter Care Teams [place] Boatman Relationship Specialty Start Date End Date Jonatan Worley MD [address] [place] [address] PCP - General 06/06/21 documented as of this encounter
--- OUTSIDE RECORDS SUMMARY | 2024-09-14 06:18 | XMS_ITS | Encounter Summary ---
Author Organization Isaac Physician Ilana petersen Address [address] [place] [address] Phone Care Team Providers Care Awning Spreader Name Role Phone Jonatan Worley MD Primary Care Provider [phone] Reason for Visit * Reason Onset Date Comments Med Refill 12/07/2021 Encounter Details Date Type Department Care Team ([facility] Contact Info) Description 12/07/2021 Refill [facility] [address] [phone] Mirian Starkey MA Diabetes mellitus with renal manifestations, type II or unspecified type, uncontrolled ([facility]) Social History Tobacco Use Types Packs/Day Years [...] (Late Contact Info) Description 09/23/2024 3:40 PM PSYCHIATRIC AIDES TEACHER Office Visit [facility] [address] [phone] Rosa Delgado NP [facility] [address] [phone] documented as of this encounter Visit Diagnoses Diagnosis Diabetes mellitus with renal manifestations, type II or unspecified type, uncontrolled ([facility]) Diabetes mellitus with renal manifestations, type II or unspecified type, uncontrolled documented in this encounter Care Teams Awning Spreader Relationship Specialty Start Date End Date Jonatan Worley MD [address] [place] [address] PCP - General 06/06/21 documented as of this encounter
--- OUTSIDE RECORDS SUMMARY | 2024-09-14 06:18 | XMS_ITS | Encounter Summary ---
Author Organization Isaac Physician Ilana utialmas Address [address] [place] [address] Phone Care Team Providers Care Prepress Technician Name Role Phone Jonatan Worley MD Primary Care Provider [phone] Reason for Visit * Reason Comments Med Refill Encounter Details Date Type Department Care Team (Late st Contact Info) Description 04/16/2022 Refill [facility] [address] [phone] Raji Shook MD [address] [address] Diabetes mellitus with renal manifestations, type II or unspecified type, uncontrolled ([facility]) Social History Tobacco Use [...] st Contact Info) Description 09/23/2024 3:40 PM CANDY DEPOSITING MACHINE OPERATOR Office Visit [facility] 5[address] [facility] 1 [place] [address] Rosa Delgado NP 5003 [facility] 1 [place] [address] documented as of this encounter Visit Diagnoses Diagnosis Diabetes mellitus with renal manifestations, type II or unspecified type, uncontrolled ([facility]) Diabetes mellitus with renal manifestations, type II or unspecified type, uncontrolled documented in this encounter Care Teams Prepress Technician Relationship Specialty Start Date End Date Jonatan Worley MD [address] [place] [address] PCP - General 06/06/21 documented as of this encounter
--- OUTSIDE RECORDS SUMMARY | 2024-09-14 06:18 | XMS_ITS | Encounter Summary ---
Author Organization Isaac Physician Ilana petersen Address [address] [place] [address] Phone Care Team Providers Care Green Chain Worker Name Role Phone Jonatan Worley MD Primary Care Provider [phone] Reason for Visit * Reason Comments CKD Encounter Details Date Type Department Care Team (Late st Contact Info) Description 07/03/2021 10:00 AM TYPEWRITER MECHANIC Office Visit [facility] [address] [place] [address] Nasra Shook MD 5003 [facility] 1 [place] [address] Diabetes mellitus with renal manifestations, [...] Comments Blood Pressure 150/80 07/03/2021 11:06 AM TYPEWRITER MECHANIC Pulse 78 07/03/2021 10:31 AM TYPEWRITER MECHANIC Temperature - - Respiratory Rate - - Oxygen Saturation - - Inhaled Oxygen Concentration - - Weight 89.4 kg (197 lb) 07/03/2021 10:31 AM TYPEWRITER MECHANIC Height 172.7 cm (5' 8 ) 07/03/2021 10:31 AM TYPEWRITER MECHANIC Body Mass Index 29.95 07/03/2021 10:31 AM TYPEWRITER MECHANIC documented in this encounter Progress Notes * [...] or unspecified type, not stated as uncontrolled ([facility]) ??? Essential hypertension ??? Other and [...] day ??? ergocalciferol (VITAMIN D-2) 1.25 MG ([address]202 UT) capsule Take 50,000 Units by mouth [...] manifestations, type II or unspecified type, uncontrolled ([facility] Can expect progressive renal disease. Renal biopsy [...] Culture; Future Chronic kidney disease stage 3B ([facility]) At stage IIIb. Stable - PTH Intact [...] st Contact Info) Description 09/23/2024 3:40 PM TYPEWRITER MECHANIC Office Visit [facility] 5[address] [facility] [place] [address] Rosa Delgado NP 5003 [facility] 1 [place] [address] Scheduled Orders Name Type Priority Associated Diagnoses Orde r Schedule Albumin/Creatinine Ratio, Random, Urine Lab Routine Diabetes mellitus with renal manifestations, type II or unspecified type, uncontrolled ([facility]) 1 Occurrences starting 07/03/2021 until 12/31/2021 Urinalysis, Complete, w/ Reflex to Culture Lab Routine Diabetes mellitus with renal manifestations, type II or unspecified type, uncontrolled ([facility]) 1 Occurrences starting 07/03/2021 until 12/31/2021 PTH Intact w/o Calcium, Serum Lab Routine Chronic kidney disease stage 3B ([facility]) Expected: 12/31/2021, Expires: 12/31/2021 Renal Function Panel (RFP) Lab Routine Chronic kidney disease stage 3B ([facility]) Expected: 12/31/2021, Expires: 07/03/2022 CBC (includes Platelets / NO Differential) Lab Routine Chronic kidney disease stage 3B ([facility]) Expected: 12/31/2021, Expires: 12/31/2021 documented as of this encounter Visit Diagnoses Diagnosis Diabetes mellitus with renal manifestations, type II or unspecified type, uncontrolled ([facility] Primary Diabetes mellitus with renal manifestations, type II or unspecified type, uncontrolled Chronic kidney disease stage 3B ([facility]) Essential (primary) hypertension Atrophy of kidney documented in this encounter Care Teams Green Chain Worker Relationship Specialty Start Date End Date Jonatan Worley MD [address] [place] [address] PCP - General 06/06/21 documented as of this encounter
--- OUTSIDE RECORDS SUMMARY | 2024-09-14 06:18 | XMS_ITS | Encounter Summary ---
Author Organization Isaac Physician Ilana utialmas Address [address] [place] [address] Phone Care Team Providers Care Citrix Consultant Name Role Phone Jonatan Worley MD Primary Care Provider [phone] Reason for Visit * Reason Comments Med Refill Encounter Details Date Type Department Care Team (Late st Contact Info) Description 11/02/2021 Refill [facility] [address] [phone] Raji Shook MD [address] [address] Diabetes mellitus with renal manifestations, type II or unspecified type, uncontrolled ([facility]) Social History Tobacco Use [...] st Contact Info) Description 09/23/2024 3:40 PM COBOL PROGRAMMER Office Visit [facility] 5[address] [facility] 1 [place] [address] Rosa Delgado NP 5003 [facility] 1 [place] [address] documented as of this encounter Visit Diagnoses Diagnosis Diabetes mellitus with renal manifestations, type II or unspecified type, uncontrolled ([facility]) Diabetes mellitus with renal manifestations, type II or unspecified type, uncontrolled documented in this encounter Care Teams Citrix Consultant Relationship Specialty Start Date End Date Jonatan Worley MD [address] [place] [address] PCP - General 06/06/21 documented as of this encounter
--- OUTSIDE RECORDS SUMMARY | 2024-09-14 06:18 | XMS_ITS | Encounter Summary ---
Author Organization Isaac Physician Ilana utialmas Address [address] [place] [address] Phone Care Team Providers Care Analysis Consultant Name Role Phone Jonatan Worley MD Primary Care Provider [phone] Reason for Visit * Reason Comments Med Refill Encounter Details Date Type Department Care Team (Late Contact Info) Description 03/15/2022 Refill [facility] [address] [address] Raji Shook MD [address] [address] Diabetes mellitus with renal manifestations, type II or unspecified type, uncontrolled ([facility]) Social History [...] (Late Contact Info) Description 09/23/2024 3:40 PM WASTEWATER ENGINEER Office Visit [facility] 5003 [facility] 1 [place] [address] Rosa Delagdo NP [address] [phone] documented as of this encounter Visit Diagnoses Diagnosis Diabetes mellitus with renal manifestations, type II or unspecified type, uncontrolled ([facility]) Diabetes mellitus with renal manifestations, type II or unspecified type, uncontrolled documented in this encounter Care Teams Analysis Consultant Relationship Specialty Start Date End Date Jonatan Worley MD [address] [place] [address] PCP - General 06/06/21 documented as of this encounter
--- OUTSIDE RECORDS SUMMARY | 2024-09-14 06:18 | XMS_ITS | Encounter Summary ---
Author Organization Isaac Physician Ilana utialmas Address [address] [place] [address] Phone Care Team Providers Care Cloud Automation Tester Name Role Phone Jonatan Worley MD Primary Care Provider [phone] Encounter Details Date Type Department Care Team ([facility] Contact Info) Description 06/21/2021 Orders Only [facility] [address] [address] Raji Shook MD [address] [address] Social History Tobacco Use Types [...] (Late Contact Info) Description 09/23/2024 3:40 PM ENGINE OILER Office Visit [facility] 5003 [facility] 1 [place] [address] Rosa Delgado NP [address] [address] documented as of this encounter [...] AC-0: Negative International Consensus on DULCE Patterns (https://doi.org/10.1515/bsos-5150-5713) For additional information, please refer to http://education.Quest[employer].Parso/faq/LFM245 (This link is being provided for informational/ educational purposes only.) ?? 06/21/2021 8:50 AM CDT 06/21/2021 8:54 AM CDT Narrative [facility] ([facility]) - 06/22/2021 2:14 PM CDT FASTING:NO PATIENT UNABLE TO VOID; ADVISED TO RETURN FOR COLLECTION. FASTING: NO Resulting Agency Comment Performing Organization Information: ?Site ID: [place] ?Name: [id number] ?Address: [facility] [place] [address] ?Director: Javier Marquez D.O., MPH Raji Shook MD LAB BLOOD ORDERABLES Performing Organization Address [facility] de Phone Number [facility] [...] Performing Organization Information: ?Site ID: [place] ?Name: [id number] ?Address: [facility] [place] [address] ?Director: Javier Marquez D.O., MPH Raji Shook MD LAB BLOOD ORDERABLES Performing Organization Address [facility] Co de Phone Number [facility] ([facility]) * Complement C4 (06/21/2021 8:50 AM CDT) Complement C4, Serum/Plasma 28 15 - 57 mg/dL [facility] ([facility]) 06/21/2021 8:50 AM CDT 06/21/2021 8:54 AM CDT Narrative [facility] ([facility]) - 06/22/2021 2:14 PM CDT FASTING:NO PATIENT UNABLE TO VOID; ADVISED TO RETURN FOR COLLECTION. FASTING: NO Resulting Agency Comment Performing Organization Information: ?Site ID: [place] ?Name: [id number] ?Address: [facility] [address] ?Director: Javier Marquez D.O., MPH Raji Shook MD LAB BLOOD ORDERABLES Performing Organization Address [facility] Phone Number [facility] * Complement C3 (06/21/2021 8:50 AM CDT) Complement C3, Serum/Plasma 125 83 - 193 mg/dL [facility] [place] ([facility]) 06/21/2021 8:50 AM CDT 06/21/2021 8:54 AM CDT Narrative [facility] ([facility]) - 06/22/2021 2:14 PM CDT FASTING:NO PATIENT UNABLE TO VOID; ADVISED TO RETURN FOR COLLECTION. FASTING: NO Resulting Agency Comment Performing Organization Information: ?Site ID: [place] ?Name: [employer] ?Address: [facility] [address] ?Director: Javier Marquez D.O., MPH Raji Shook MD LAB BLOOD ORDERABLES Performing Organization Address [facility] Co de Phone Number [facility]) * Hepatitis C AB w/Refl To HCV RNA, QN, PCR, Serum (06/21/2021 8:50 AM CDT) Pathologist [facility] Hepatitis C virus Ab, Serum/Plasma NON-REACTI VE NON-REACT LISA [facility]) Hepatitis C virus Ab Signal/Cutoff, Serum/Plasma 0.01 <1.00 [facility] (ST) Comment: HCV antibody was non-reactive. There is no laboratory evidence of HCV infection. In most cases, no further action is required. However, if recent HCV exposure is suspected, a test for HCV RNA (test code 78708) is suggested. For additional information please refer to http://education.[employer]/faq/PQZ78b7 (This link is being provided for informational/ educational purposes only.) 06/21/2021 8:50 AM CDT 06/21/2021 8:54 AM CDT Narrative [facility]) - 06/22/2021 2:14 PM CDT FASTING:NO PATIENT UNABLE TO VOID; ADVISED TO RETURN FOR COLLECTION. FASTING: NO Resulting Agency Comment Performing Organization Information: ?Site ID: [place] ?Name: [facility] ?Address: [address] [place], [place] [address] [address] ?Director: Javier Marquez D.O., MPH Raji Shook MD LAB BLOOD ORDERABLES [facility] [place] ([facility]) * Hepatitis B Core AB, Total, Serum (06/21/2021 8:50 AM CDT) Pathologist [facility] Hepatitis B virus core Ab, Serum/Plasma NON-REACTI VE NON-REACTI VE [facility] [place] ([facility]) 06/21/2021 8:50 AM CDT 06/21/2021 8:54 AM CDT Narrative [facility] ([facility]) - 06/22/2021 2:14 PM CDT FASTING:NO PATIENT UNABLE TO VOID; ADVISED TO RETURN FOR COLLECTION. FASTING: NO Resulting Agency Comment Performing Organization Information: ?Site ID: [place] ?Name: [facility] ?Address: [facility] [place] [address] ?Director: Javier Marquez D.O., MPH Raji Shook MD LAB BLOOD ORDERABLES Performing Organization Address [facility] Co de Phone Number [facility] Alhaji [facility]) * Hepatitis B Surface AB, QL, Serum (06/21/2021 8:50 AM CDT) Hepatitis B virus surface Ab, Serum NON-REACTI VE NON-REACTI VE [facility] [place] ([facility]) 06/21/2021 8:50 AM CDT 06/21/2021 8:54 AM CDT Narrative [facility] [place] ([facility]) - 06/22/2021 2:14 PM CDT FASTING:NO PATIENT UNABLE TO VOID; ADVISED TO RETURN FOR COLLECTION. FASTING: NO Resulting Agency Comment Performing Organization Information: ?Site ID: [place] ?Name: [facility] ?Address: [address] [place], [place] [address] [address] ?Director: Javier Marquez D.O., MPH Raji Shook MD LAB BLOOD ORDERABLES Performing Organization Address [facility] Co de Phone Number [facility]) * Hepatitis B Surface Ag (HBsAg) w/ Reflex Confirm (06/21/2021 8:50 AM CDT) Hepatitis B virus surface Ag, Serum/Plasma NON-REACTI VE NON-REACTI VE [facility] [place] (ST) 06/21/2021 8:50 AM CDT 06/21/2021 8:54 AM CDT Narrative [facility] ([facility]) - 06/22/2021 2:14 PM CDT FASTING:NO PATIENT UNABLE TO VOID; ADVISED TO RETURN FOR COLLECTION. FASTING: NO Resulting Agency Comment Performing Organization Information: ?Site ID: [place] ?Name: [facility] ?Address: [address] [place] [address] ?Director: Javier Marquez D.O., MPH Raji Shook MD LAB BLOOD ORDERABLES [facility] [place] ([facility]) * (ABNORMAL) CBC (includes Differential/Platelets) (06/21/2021 8:50 AM CDT) Leukocytes, Blood 7.9 3.8 - 10.8 Thousand/u L [facility] ([facility]) Erythrocytes (RBC) 3.36(L) 3.80 - 5.10 Million/uL [facility] [place] ([facility]) Hemoglobin (HGB) 9.9(L) 11.7 - 15.5 g/dL [facility] [place] ([facility]) [...] [place] ([facility]) Basophils/100 leukocytes, Blood 0.9 % [facility] ([facility]) 06/21/2021 8:50 AM CDT 06/21/2021 8:54 AM CDT Narrative [facility] [place] ([facility]) - 06/22/2021 2:14 PM CDT FASTING:NO PATIENT UNABLE TO VOID; ADVISED TO RETURN FOR COLLECTION. FASTING: NO Resulting Agency Comment Performing Organization Information: ?Site ID: [place] ?Name: [facility] ?Address: [address] [place] [address] [place] [address] ?Director: Javier Marquez D.O., MPH Raji Shook MD LAB BLOOD ORDERABLES [facility] [place] ([facility]) * (ABNORMAL) Basic Metabolic Panel (BMP) (06/21/2021 8:50 AM CDT) [facility] Glucose, Serum/Plasma 137 65 - 139 mg/dL [facility] ([facility]) Comment: ? Non-fasting reference interval Urea nitrogen, Serum/Plasma (BUN) 36(H) 7 - 25 mg/dL [facility] [place] (ST) Creatinine, Serum/Plasma 1.70(H) 0.50 - 1.05 mg/dL [facility] ([facility]) Comment: For patients >49 years of age, the reference limit for Creatinine is approximately 13% higher for people identified as -Omani. eGFR, non 32(L) > OR = 60 mL/min/1. 73m2 [facility] ([facility]) eGFR, 38(L) > OR = 60 mL/min/1. 73m2 [facility] ([facility]) Urea nitrogen/Creatinin e, Serum/Plasma 21 6 - 22 (calc) [facility] ([facility]) Sodium, Serum/Plasma 145 135 - 146 mmol/L [facility] [place] ([facility]) Potassium, Serum/Plasma 4.6 3.5 - 5.3 mmol/L [facility] ([facility]) Chloride, Serum/Plasma 103 98 - 110 mmol/L [facility] [place] ([facility]) Carbon dioxide CO2), total, Serum/Plasma 22 20 - 32 mmol/L [facility] [place] ([facility]) Calcium, Serum/Plasma 8.7 8.6 - 10.4 mg/dL [facility] [place] ([facility]) 06/21/2021 8:50 AM CDT 06/21/2021 8:54 AM CDT Narrative [facility] [place] ([facility]) - 06/22/2021 2:14 PM CDT FASTING:NO PATIENT UNABLE TO VOID; ADVISED TO RETURN FOR COLLECTION. FASTING: NO Resulting Agency Comment Performing Organization Information: ?Site ID: [place] ?Name: [id number] ?Address: [address] [place] [address] ?Director: Javier Marquez D.O., MPH Raji Shook MD LAB BLOOD ORDERABLES [facility] [place] ([facility]) documented in this encounter Visit Diagnoses Not on filedocumented in this encounter Care Teams Cloud Automation Tester Relationship Specialty Start Date End Date Jonatan Worley MD [address] [place] [address] PCP - General 06/06/21 documented as of this encounter
--- OUTSIDE RECORDS SUMMARY | 2024-09-14 06:18 | XMS_ITS | Encounter Summary ---
Author Organization Isaac Physician Ilana petersen Address [address], [place] [address] Phone Care Team Providers Care Optical Systems Engineer Name Role Phone Unavailable Primary Care Provider Unavailabl e Reason for Visit * Reason Comments Proteinuria Encounter Details Date Type Department Care Team ([facility] Contact Info) Description 12/21/2020 1:20 PM CDT Office Visit [facility] 5003 [facility] 1 [place], [place] [phone] Louis Medina MD [address] [address] Social History Tobacco Use Types [...] Center Contact Info) Description 09/23/2024 3:40 PM CONSERVATION SPECIALIST Office Visit [facility] 5003 [facility] 1 [place] [address] Rosa Delgado, AMA [address] [phone] documented as of this encounter Visit Diagnoses Not on filedocumented in this encounter
--- OUTSIDE RECORDS SUMMARY | 2024-09-14 06:18 | XMS_ITS | Encounter Summary ---
Author Organization Isaac Physician Ilana petersen Address [address] [place] [address] Phone Care Team Providers Care Director Of Analytics Name Role Phone Jonatan Worley MD Primary Care Provider [phone] Reason for Visit * Reason Comments CKD Encounter Details Date Type Department Care Team (Late st Contact Info) Description 01/01/2022 1:40 PM CDT Office Visit [facility] 2100 [facility] 206 [place] [address] Nasra Shook MD 5003 [facility] 1 [place] [address] Chronic kidney disease, Stage IV [...] or unspecified type, not stated as uncontrolled ([facility]) ??? Essential hypertension ??? History of [...] 1 ??? ergocalciferol (VITAMIN D-2) 1.25 MG (76416 UT) capsule Take 50,000 Units by mouth [...] kidney disease, Stage IV (severe) ([facility]) Cannot use IAN or ARB's. Has history [...] manifestations, type II or unspecified type, uncontrolled ([facility] See above discussion Essential (primary) hypertension See above discussion Please call with any questions. Follow-up appointment for 4 months 4 months NASRA SHOOK MD documented in this encounter Plan of Treatment Upcoming Encounters Date Type Department Care Team (Late st Contact Info) Description 09/23/2024 3:40 PM SUPERVISOR PARK WORKERS Office Visit [facility] 5003 [facility] 1 [place] [address] Rosa Delgado NP [address] [place] [phone] Scheduled Orders Name Type Priority Associated Diagnoses Orde r Schedule PTH Intact w/o Calcium, Serum Lab Routine Chronic kidney disease, Stage IV (severe) ([facility]) Expected: 07/04/2022, Expires: 07/04/2022 Renal Function Panel (RFP) Lab Routine Chronic kidney disease, Stage IV (severe) ([facility]) Expected: 07/04/2022, Expires: 01/01/2023 CBC (includes Platelets / NO Differential) Lab Routine Chronic kidney disease, Stage IV (severe) ([facility]) Expected: 07/04/2022, Expires: 07/04/2022 documented as of this encounter Visit Diagnoses Diagnosis Chronic kidney disease, Stage IV (severe) ([facility] Primary Chronic kidney disease, Stage IV (severe) Atrophy of kidney Diabetes mellitus with renal manifestations, type II or unspecified type, uncontrolled ([facility]) Diabetes mellitus with renal manifestations, type II or unspecified type, uncontrolled Essential (primary) hypertension documented in this encounter Care Teams Director Of Analytics Relationship Specialty Start Date End Date Jonatan Worley MD [address] [place] [phone] PCP - General 06/06/21 documented as of this encounter
--- OUTSIDE RECORDS SUMMARY | 2024-09-14 06:18 | XMS_ITS | Encounter Summary ---
Author Organization Isaac Physician Ilana petersen Address [address] [place] [address] Phone Care Team Providers Care Shipping Technician Name Role Phone Jonatan Worley MD Primary Care Provider [phone] Reason for Visit * Reason Comments CKD Encounter Details Date Type Department Care Team ([facility] st Contact Info) Description 04/11/2022 2:20 PM CDT Office Visit [facility] 5003 [facility] 1 [place] [address] Rosie Hernandez, INCOME AUDITOR [address] [address] Chronic kidney disease, Stage IV [...] day ??? ergocalciferol (VITAMIN D-2) 1.25 MG (82427 UT) capsule Take 50,000 Units by mouth [...] visit: Chronic kidney disease, Stage IV (severe) ([facility]) Slight worsening in creatinine could be related [...] type II or unspecified type, uncontrolled ([facility] Goal A1C to be less than 7 Currently controlled per patient reports. Atrophy of kidney Anemia in chronic kidney disease Stable will monitor No indication for MARGARETH at this time ROSIE HERNANDEZ NP documented in this encounter Plan of Treatment Upcoming Encounters Date Type Department Care Team (Late st Contact Info) Description 09/23/2024 3:40 PM POLICE LIEUTENANT PRECINCT Office Visit [facility] 5003 [facility] 1 [place] [address] Rosie Hernandez NP [address] [address] Scheduled Orders Name Type Priority Associated Diagnoses Orde r Schedule CBC (Includes Diff/PLT) Lab Routine Chronic kidney disease, Stage IV (severe) ([facility]) Expected: 07/12/2022, Expires: 04/11/2023 Renal Function Panel Lab Routine Chronic kidney disease, Stage IV (severe) ([facility]) Expected: 07/12/2022, Expires: 04/11/2023 PTH Intact w/ Calcium Lab Routine Chronic kidney disease, Stage IV (severe) ([facility]) Expected: 07/12/2022, Expires: 04/11/2023 Ferritin Lab Routine Chronic kidney disease, Stage IV (severe) ([facility]) Expected: 07/12/2022, Expires: 04/11/2023 Iron And TIBC Lab Routine Chronic kidney disease, Stage IV (severe) ([facility]) Expected: 07/12/2022, Expires: 04/11/2023 documented as of this encounter Visit Diagnoses Diagnosis Chronic kidney disease, Stage IV (severe) ([facility] Primary Chronic kidney disease, Stage IV (severe) Essential (primary) hypertension Diabetes mellitus with renal manifestations, type II or unspecified type, uncontrolled ([facility]) Diabetes mellitus with renal manifestations, type II or unspecified type, uncontrolled Atrophy of kidney Anemia in chronic kidney disease documented in this encounter Care Teams Shipping Technician Relationship Specialty Start Date End Date Jonatan Worley MD [address] [place] [address] PCP - General 06/06/21 documented as of this encounter
--- OUTSIDE RECORDS SUMMARY | 2024-09-14 06:18 | XMS_ITS | Encounter Summary ---
Author Organization Isaac Physician Ilana petersen Address [address] [place] [address] Phone Care Team Providers Care Visual Merchandising Manager Name Role Phone Jonatan Worley MD Primary Care Provider [phone] Reason for Visit * Reason Comments CKD Encounter Details Date Type Department Care Team (Late st Contact Info) Description 06/05/2021 1:00 PM CDT Office Visit [facility] [address] [address] Nasra Shook MD 5003 [facility] 1 [place] [address] Chronic kidney disease, not otherwise [...] or unspecified type, not stated as uncontrolled ([facility]) ??? Essential hypertension ??? Other and [...] day ??? ergocalciferol (VITAMIN D-2) 1.25 MG (00260 UT) capsule Take 50,000 Units by mouth [...] apnea, denies stroke, denies heart failure or CT. Ultrasound of the kidney done in the [...] Upcoming Encounters Date Type Department Care Team ([facility] st Contact Info) Description 09/23/2024 3:40 PM CARROT BUNCHER Office Visit [facility] 5003 [facility] 1 [place] [address] Rosa Delgado NP 5003 [facility] 1 [place], [place] [phone] Scheduled Orders Name Type Priority Associated Diagnoses [...] hypertension documented in this encounter Care Teams Visual Merchandising Manager Relationship Specialty Start Date End Date Jonatan Worley MD [address] [place] [phone] PCP - General 06/06/21 documented as of this encounter
--- OUTSIDE RECORDS SUMMARY | 2024-09-14 06:18 | XMS_ITS | Encounter Summary ---
Author Organization [facility] Ilana petersen Address [address] [place] [address] Phone Care Team Providers Care Sow Farm Barn Technician Name Role Phone Jonatan Worley MD Primary Care Provider [phone] Encounter Details Date Type Department Care Team ([facility] Contact Info) Description 06/07/2022 Orders Only [facility] [address] [facility] 1 [place], [place] [phone] Rosa Delgado NP [address] [address] Social History Tobacco Use Types [...] (Late Contact Info) Description 09/23/2024 3:40 PM STRATEGIC ALLIANCES MANAGER Office Visit [facility] [address] [facility] 1 [place], [place] [id number] Rosa Delgado NP [address] [phone] documented as of this encounter Procedures Procedure [...] Eosinophils, Blood 710(H) 15 - 500 cells/uL [facility] [place] ([facility] [...] [place] ([facility]) Basophils/100 leukocytes, Blood 0.8 % [facility] [place] ([facility]) 06/07/2022 12:3 5 PM CDT 06/07/2022 12:37 PM CDT Narrative [facility] [place] ([facility]) - 06/08/2022 9:16 AM CDT FASTING:NO FASTING: NO Resulting Agency Comment Performing Organization Information: ?Site ID: [place] ?Name: [employer] ?Address: [address] [place] [address] [place] [address] ?Director: Javier Marquez D.O., MPH Rosa Delgado NP LAB BLOOD ORDERABLES [facility] [place] ([facility]) * (ABNORMAL) Renal Function Panel (RFP) (06/07/2022 12:35 PM CDT) [facility] Glucose, Serum/Plasma 192(H) 65 - 139 mg/dL [facility] [place] ([facility]) Comment: ? Non-fasting reference interval Urea nitrogen, Serum/Plasma (BUN) 38(H) 7 - 25 mg/dL [facility] [place] ([facility]) Creatinine, Serum/Plasma 2.10(H) 0.50 - 1.05 mg/dL [facility] [place] ([facility]) Estimated Glomerular Filtration Rate (eGFR) 26(L) > OR = 60 mL/min/1.[address] [facility] [place] ([facility]) Comment: The eGFR is based on the CKD-EPI 2020 equation. To calculate the new eGFR from a previous Creatinine or Cystatin C result, go to https://www.kidney.org/professionals/ kdoqi/gfr%5Fcalculator Urea nitrogen/Creati nine, Serum/Plasma 18 6 - 22 (calc) [facility] [place] ([facility]) Sodium, Serum/Plasma 140 135 - 146 mmol/L [facility] [place] ([facility]) Potassium, Serum/Plasma 5.0 3.5 - 5.3 mmol/L [facility] [place] ([facility]) Chloride, Serum/Plasma 111(H) 98 - 110 mmol/L [facility] [place] ([facility]) Carbon dioxide CO2), total, Serum/Plasma 23 20 - 32 mmol/L [facility] [place] ([facility]) Calcium, Serum/Plasma 8.5(L) 8.6 - 10.4 mg/dL [facility] [place] ([facility]) Phosphate, Serum/Plasma 5.3(H) 2.5 - 4.5 mg/dL [facility] [place] ([facility]) Albumin, Serum/Plasma 3.2(L) 3.6 - 5.1 g/dL [facility] [place] ([facility]) 06/07/2022 12:3 5 PM CDT 06/07/2022 12:37 PM CDT Narrative [facility] [place] ([facility]) - 06/08/2022 9:16 AM CDT FASTING:NO FASTING: NO Resulting Agency Comment Performing Organization Information: ?Site ID: [place] ?Name: [employer] ?Address: [address] [place] [address] ?Director: Javier Marquez D.O., MPH Rosa Delgado NP LAB BLOOD ORDERABLES [facility] [place] ([facility]) [...] Calcium, Serum/Plasma 8.5(L) 8.6 - 10.4 mg/dL [facility] [place] (ST) 06/07/2022 12:3 5 PM CDT 06/07/2022 12:37 PM CDT Narrative [facility] ([facility]) - 06/08/2022 9:16 AM CDT FASTING:NO FASTING: NO Resulting Agency Comment Performing Organization Information: ?Site ID: [place] ?Name: [employer] ?Address: [address] [place] [address] ?Director: Javier Marquez D.O., MPH Rosa Delgado [...] Ferritin, Serum/Plasma 68 16 - 232 ng/mL [facility] [place] ([facility]) 06/07/2022 12:3 5 PM CDT 06/07/2022 12:37 PM CDT Narrative [facility] [place] ([facility]) - 06/08/2022 9:16 AM CDT FASTING:NO FASTING: NO Resulting Agency Comment Performing Organization Information: ?Site ID: [place] ?Name: [facility] ?Address: [address] [place] [address] ?Director: Javier Marquez D.O., MPH Rosa Delgado VETERINARY ATTENDANT LAB BLOOD ORDERABLES [facility] [place] ([facility]) documented in this encounter Visit Diagnoses Not on filedocumented in this encounter Care Teams Sow Farm Barn Technician Relationship Specialty Start Date End Date Jonatan Worley MD [address] [place] [phone] PCP - General 06/06/21 documented as of this encounter
--- OUTSIDE RECORDS SUMMARY | 2024-09-14 06:18 | XMS_ITS | Encounter Summary ---
Author Organization [facility] Ilana utialmas Address [address] [place] [address] Phone Care Team Providers Care Microsoft Systems Engineer Name Role Phone Jonatan Worley MD Primary Care Provider [phone] Reason for Visit * Reason Comments Med Refill Encounter Details Date Type Department Care Team (Late Contact Info) Description 02/10/2022 Refill [facility] [address] [address] Raji Shook MD [address] [address] Diabetes mellitus with renal manifestations, type II or unspecified type, uncontrolled ([facility]) Social History Tobacco Use Types [...] (Late Contact Info) Description 09/23/2024 3:40 PM ART COORDINATOR Office Visit [facility] [address] [facility] 1 [place] [address] Rosa Delgado NP [address] [phone] documented as of this encounter Visit Diagnoses Diagnosis Diabetes mellitus with renal manifestations, type II or unspecified type, uncontrolled ([facility]) Diabetes mellitus with renal manifestations, type II or unspecified type, uncontrolled documented in this encounter Care Teams Microsoft Systems Engineer Relationship Specialty Start Date End Date Jonatan Worley MD [address] [place] [address] PCP - General 06/06/21 documented as of this encounter
--- OUTSIDE RECORDS SUMMARY | 2024-09-14 06:18 | XMS_ITS | Encounter Summary ---
Author Organization [facility] Ilana utialmas Address [address] [place] [address] Phone Care Team Providers Care Link Machine Operator Name Role Phone Jonatan Worley MD Primary Care Provider [phone] Encounter Details Date Type Department Care Team ([facility] Contact Info) Description 12/24/2021 Orders Only [facility] [address] [address] Raji Shook MD [address] [address] Social History Tobacco Use Types [...] (Late Contact Info) Description 09/23/2024 3:40 PM CERTIFIED DIALYSIS TECHNICIAN Office Visit [facility] [address] [facility] 1 [place] [address] Rosa Delgado NP [address] [address] documented as of this encounter [...] Creatinine, Urine 43 20 - 275 mg/dL [facility] ([facility]) Microalbumin, Urine 176.9 See Note: mg/dL [facility] [place] ([facility]) Comment: Reference Range: Reference Range Not established Verified by repeat analysis. Albumin/Creatinin e, Urine 4,114(H) <30 mcg/mg creat [facility] [place] ([facility]) Comment: The [...] Agency Comment Performing Organization Information: ?Site ID: [place] ?Name: [employer] ?Address: [address] [place] [address] ?Director: Javier Marquez D.O., MPH Raji Shook MD LAB URINE ORDERABLES [facility]) * (ABNORMAL) Renal Function Panel (RFP) (12/24/2021 8:33 AM CDT) [facility] Glucose, Serum/Plasma 155(H) 65 - 99 mg/dL [facility] ([facility]) Comment: ? Fasting reference interval For someone without known diabetes, a glucose value >125 mg/dL indicates that they may have diabetes and this should be confirmed with a follow-up test. Urea nitrogen, Serum/Plasma (BUN) 33(H) 7 - 25 mg/dL [facility] ([facility]) Creatinine, Serum/Plasma 2.04(H) 0.50 - 0.99 mg/dL [facility]) Comment: For patients >49 years of age, the reference limit for Creatinine is approximately 13% higher for people identified as -[place]ri [place]ank[place]. eGFR, non 26(L) > OR = 60 mL/min/1. 73m2 [facility]) eGFR, 30(L) > OR = 60 mL/min/1. 73m2 [facility] ([facility]) Urea nitrogen/Creatinin e, Serum/Plasma 16 6 - 22 (calc) [facility] ([facility]) Sodium, Serum/Plasma 138 135 - 146 mmol/L [facility] ([facility]) Potassium, Serum/Plasma 5.3 3.5 - 5.3 mmol/L [facility] ([facility]) Chloride, Serum/Plasma 110 98 - 110 mmol/L [facility] ([facility]) Carbon dioxide CO2), total, Serum/Plasma 23 20 - 32 mmol/L [facility] ([facility]) Calcium, Serum/Plasma 8.9 8.6 - 10.4 mg/dL [facility] ([facility]) Phosphate, Serum/Plasma 5.7(H) 2.5 - 4.5 mg/dL [facility] ([facility]) Albumin, Serum/Plasma 3.4(L) 3.6 - 5.1 g/dL [facility] ([facility]) 12/24/2021 8:33 AM CDT 12/24/2021 8:35 AM CDT Narrative Resulting Agency Comment Performing Organization Information: ?Site ID: [place] ?Name: [employer] ?Address: [facility] [place] [address] ?Director: Javier Marquez D.O., MPH Raji Shook MD LAB BLOOD ORDERABLES [facility] ([facility]) * PTH Intact and Calcium, Serum (12/24/2021 8:33 AM CDT) PTH, Intact, Serum/Plasma 55 16 - 77 pg/mL [facility] ([facility]) Comment: Interpretive [...] Agency Comment Performing Organization Information: ?Site ID: [place] ?Name: [employer] ?Address: [address] [place] [address] ?Director: Javier Marquez D.O., MPH Raji Shook MD LAB BLOOD ORDERABLES [facility] ([facility]) * [...] Agency Comment Performing Organization Information: ?Site ID: [place] ?Name: [employer] ?Address: [address] [place] [address] ?Director: Javier Marquez D.O., MPH Raji Shook [...] Comment Performing Organization Information: ?Site ID: ?Name: [employer] [facility] ?Address: [facility] [place] [address] ?Director: Odalys Bangura Raji Shook MD LAB BLOOD ORDERABLES [facility] ([facility]) documented in this encounter Visit Diagnoses Not on filedocumented in this encounter Care Teams Link Machine Operator Relationship Specialty Start Date End Date Jonatan Worley MD [address] [place] [address] PCP - General 06/06/21 documented as of this encounter
--- OUTSIDE RECORDS SUMMARY | 2024-09-14 06:19 | XMS_ITS | Encounter Summary ---
Author Organization [facility] Address [address] [place] [address] Phone Care Team Providers Care Boarding Mother Name Role Phone Jonatan Worley Primary Care Provider Srinivasa Lee MD Unavailable Reason for Visit * Reason Onset Date Comments Medication Refill 04/14/2023 Encounter Details Date Type Department Care Team (Late st Contact Info) Description 04/14/2023 Refill [facility] [address] [phone] Srinivasa Lee MD [address] [address] Medication Refill Social History Tobacco [...] on file Legal Sex Female 11:51 AM DITCH TENDER Gender Identity Not on file Sexual [...] st Contact Info) Description 10/18/2024 1:30 PM DITCH TENDER Office Visit [facility] [address] [place] [phone] Srinivasa Lee MD [address] [facility] [address] [phone] documented as of this encounter Visit Diagnoses Not on filedocumented in this encounter Additional Health Concerns Assessment Noted Time PHQ-9 Depression Total Score: 0 03/08/20 11:06 AM CDT documented as of this encounter Care Teams Boarding Mother Relationship Specialty Start Date End Date Jonatan Worley [address] [place] [address] PCP - General Family Medicine 07/12/20 Srinivasa Lee MD [address] [place] [phone] Consulting Physician Oncology 07/12/20 documented as of this encounter
--- OUTSIDE RECORDS SUMMARY | 2024-09-14 06:19 | XMS_ITS | Encounter Summary ---
Author Organization [facility] Address [address] [place] [address] Phone Care Team Providers Care Patient Attendant Name Role Phone Jonatan Worley Primary Care Provider Srinivasa Lee MD Unavailable [phone] Encounter Details Date Type Department Care Team (Latest Contact Info) Description 02/19/2024 2:20 PM CDT Lab [facility] [address] [address] Lab, [facility] Hypogammaglobulinemia (HCC); Anemia in stage 3b [...] on file Legal Sex Female 11:51 AM BUCKLE ASSEMBLER Gender Identity Not on file Sexual [...] st Contact Info) Description 10/18/2024 1:30 PM BUCKLE ASSEMBLER Office Visit [facility] [address] [address] Srinivasa Lee MD [address] [facility] [address] [place] [address] documented as of this encounter Procedures [...] CHAINS 142.2(H) 2.9 - 20.7 mg/L [facility] FREE LAMBDA LT CHAINS 132.2(H) 4.2 - 27.6 mg/L [facility] KAPPA/LAMBDA RATIO 1.08 0.22 - 1.74 [facility] 02/19/2024 2:23 PM CDT us Rosalina Vázquez PHARMACY OPERATIONS SPECIALIST, [employer] LAB SEND OUTS Fin al Result [facility] [address] [place] [address], * IMMUNOFIXATION, SERUM [place] (02/19/2024 2:23 PM CDT) IMMUNOFIXATION RESULT, SERUM COMMENT: [facility] Comment: PRESENCE OF MONOCLONAL PROTEIN IS UNCLEAR AT THIS TIME. SUGGEST REPEAT IN 3 TO 6 MONTHS IF CLINICALLY INDICATED. 02/19/2024 2:23 PM CDT Narrative [facility] - 02/20/2024 3:09 PM CDT TESTING PERFORMED AT: [] [facility], [address] [place] [address], [place], [address], PHONE: [phone], REHABILITATION LIAISON: PEGGY MARCUS, PHD Release to patient->Immediate Rosalina Vázquez APRN, [employer]ING[employer] LAB SEND OUTS Fin al Result [facility] [address] [place] [address], [place] [phone] * (ABNORMAL) ELECTROPHORESIS W/ TOTAL PROTEIN SERUM (02/19/2024 2:23 PM CDT) Pathologist [facility] PROTEIN, TOTAL, SERUM 5.7(L) 6.0 - 8.5 G/DL [facility] ALBUMIN 3.0 2.9 - 4.4 G/DL [facility] [id number] 0.3 0.0 - 0.4 G/DL [facility] [id number] 0.7 0.4 - 1.0 G/DL [facility] BETA GLOBULIN 0.7 0.7 - 1.3 G/DL [facility] GAMMA GLOBULIN 1.1 0.4 - 1.8 G/DL [facility] M-SPIKE NOT OBSERVED NOT OBSERVED G/DL [facility] GLOBULIN, TOTAL 2.7 2.2 - 3.9 G/DL [facility] A/G RATIO 1.1 0.7 - 1.[address] [facility] PLEASE NOTE: COMMENT [facility] [place] Comment: PROTEIN ELECTROPHORESIS SCAN WILL FOLLOW VIA COMPUTER, MAIL, OR TURKEY PINNER DELIVERY. PDF . [facility] Blood 02/19/2024 2:23 PM CDT [place] [facility] - 02/20/2024 1:09 PM CDT TESTING PERFORMED AT: [] [address], [place], [address], PHONE: [phone], REHABILITATION LIAISON: PEGGY MARCUS, PHD Release to patient->Immediate Rosalina Vázquez APRN, COTTON WRINGER CHEMISTRY ORDERABLE S Final Result Performing Organization Address [facility] de Phone Number [facility] [facility] [place] [address], [place] [phone] * (ABNORMAL) RETICULOCYTE COUNT (RETIC) (02/19/2024 2:23 PM CDT) Reticulocyte count 2.09(H) 0.50 - 1.70 % [facility] RET-He 32.70 28.20 - 36.60 pg [facility] AUTOMATION CONTROLS EXPERT [facility] Comment: RET-He is a direct assessment of incorporation of iron into erythrocyte hemoglobin. It provides an indirect measure of the iron available for new erythropoiesis over past 2-4 days. Blood 02/19/2024 2:23 PM CDT Narrative [facility] - 02/19/2024 2:33 PM CDT Release to patient->Immediate Rosalina Vázquez APRN, [employer]INGER HEMATOLOGY ORDERABL ES Final Result Performing Organization Address [facility] Co de Phone Number [facility] [place] [address], [place] [phone] * (ABNORMAL) IRON W/ IRON BINDING CAPACITY [place] (02/19/2024 2:23 PM CDT) IRON 49(L) 50 - 212 ug/dL [facility] UIBC 190 155 - 355 ug/dL [facility] OF [facility] TIBC 239(L) 261 - 478 ug/dl [facility] % Saturation 21 20 - 50 % [facility] 02/19/2024 2:23 PM CDT Narrative [facility] - 02/19/2024 3:17 PM CDT Release to patient->Immediate us Rosalina Vázquez APRN, C[employer]TON WRINGER LAB SEND OUTS Fin al Result [facility] [address] [place] [address], [place] [phone] * FERRITIN (02/19/2024 2:23 PM CDT) Ferritin 67 11 - 307 ng/mL [facility] Blood 02/19/2024 2:23 PM CDT Narrative [facility] - 02/20/2024 3:26 PM CDT Release to patient->Immediate us Rosalina Vázquez APRN, COTTON WRINGER CHEMISTRY ORDERABLE S Final Result Performing Organization Address [facility] de Phone Number [facility] EX[facility] [address] [place] [address], [place] [phone] * FOLIC ACID (FOLATE) (02/19/2024 2:23 PM CDT) Folate 12.98 >=5.90 ng/mL [facility] Blood 02/19/2024 2:23 PM CDT [facility] - 02/20/2024 3:26 PM CDT Release to patient->Immediate IS THE PATIENT REQUIRED TO BE FASTING FOR 12 HOURS?->No us Rosalina Vázquez APRN, C[employer]TON WRINGER CHEMISTRY ORDERABLE S Final Result [facility] [address] [place] [address], [place] [phone] * (ABNORMAL) VITAMIN B12 (02/19/2024 2:23 PM CDT) Vitamin B12 1,381(H) 180 - 914 pg/mL [facility] Blood 02/19/2024 2:23 PM CDT Narrative [facility] - 02/20/2024 3:26 PM CDT Release to patient->Immediate us Rosalina Vázquez APRN, COTTON WRINGER CHEMISTRY ORDERABLE S Final Result Performing Organization Address [facility] Co de Phone Number [facility] [address] [address], [place] [phone] * LACTATE DEHYDROGENASE (LD) (02/19/2024 2:23 PM CDT) LDH 157 140 - 271 U/L [facility] Blood 02/19/2024 2:23 PM CDT Narrative [facility] - 02/19/2024 3:17 PM CDT Release to patient->Immediate Rosalina Vázquez APRN, COTTON WRINGER CHEMISTRY ORDERABLE S Final Result Performing Organization Address [facility] Co de Phone Number [facility] [address] [address], [place] [phone] * (ABNORMAL) CMP (COMPREHENSIVE METABOLIC PANEL) (02/19/2024 2:23 PM CDT) Glucose 245(H) 70 - 105 mg/dL [facility] Blood Urea Nitrogen 45(H) 7 - 25 mg/dL [facility] Creatinine 3.2(H) 0.6 - 1.2 mg/dL [facility] Sodium 136 136 - 145 mEq/L [facility] [place] Potassium 5.2(H) 3.5 - 5.1 mEq/L [facility] Chloride 105 98 - 107 mEq/L [facility] Bicarbonate 23 21 - 31 mEq/L [facility] Total Bilirubin 0.5 0.3 - 1.0 mg/dL [facility] Alk. Phosphatase 53 34 - 104 U/L [facility] Aspartate Aminotransferase 18 13 - 39 U/L [facility] Alanine Aminotransferase 10 7 - 52 U/L [facility] Total Protein 5.8(L) 6.4 - 8.9 g/dL [facility] Albumin 3.4(L) 3.5 - 5.7 g/dL [facility] Calcium 8.6 8.6 - 10.3 mg/dL [facility] Anion Gap 13.2 7.0 - 15.0 mEq/L [facility] Globulin 2.4 2.0 - 3.5 g/dL [facility] EGFR 16(L) >60 ml/min/1. 73m2 [facility] Comment: This eGFR is calculated using 2020 CKD-EPI Creatinine equation without race modifier based on the NKF-ASN task force recommendations Blood 02/19/2024 2:23 PM CDT Narrative [facility] - 02/19/2024 3:17 PM CDT Release to patient->Immediate IS THE PATIENT REQUIRED TO BE FASTING FOR 8 HOURS?->No us Rosalina Vázquez PHARMACY OPERATIONS SPECIALIST, COTTON WRINGER CHEMISTRY ORDERABLE S Final Result [facility] [employer] EXP[facility] [address] [place] [address], * (ABNORMAL) COMPLETE BLOOD COUNT (CBC) WITH DIFF (02/19/2024 2:23 PM CDT) WBC 5.3 4.0 - 10.0 10*3/uL [facility] HGB 9.6(L) 11.2 - 15.7 g/dL [facility] HCT 29.9(L) 34.1 - 44.9 % [facility] [facility] PLT 160(L) 163 - 369 10*3/uL [facility] MPV 10.3 9.4 - 12.4 fL [facility] RBC 3.21(L) 3.93 - 5.22 10*6/uL [facility] [employer] MCV 93 79 - 95 fL [facility] MCH 29.9 25.6 - 32.2 pg [facility] EX[facility] MCHC 32.1(L) 32.2 - 36.5 g/dL [facility] [employer] EX[facility] RDW 12.5 11.6 - 14.4 % [facility] [employer] Absolute Neutrophil Count 3,192 cells/uL [facility] ER [facility] Absolute Seg Count 3,192 1,440 - 6,600 cells/uL [facility] Absolute Lymph Count 1,330 760 - 4,000 cells/uL [facility] Absolute Willacy Count 426 160 - 1,200 cells/uL [facility] Absolute Eos Count 372(H) 0 - 300 cells/uL [facility] Segmented Neutrophils 60 36 - 66 % [facility] [facility] EX[facility] Lymphocytes 25 19 - 40 % CAN[facility]ER C ENTER [facility] Monocytes 8 4 - 12 % CANCER [facility] Eosinophils 7(H) 0 - 3 % CANCER C ENTER [facility] WBC Estimate Normal [facility] [employer] Platelet Estimate Low [facility] RBC Morphology Normal CANCE R AUTOMATION CONTROLS EXPERT [facility] Blood 02/19/2024 2:23 PM CDT Narrative [facility] EXPERT [facility] - 02/19/2024 3:35 PM CDT Release to patient->Immediate us Rosalina Vázquez PHARMACY OPERATIONS SPECIALIST, [employer]ER HEMATOLOGY ORDERABL ES Final Result [facility] [employer] EX[facility] [place] [address], * (ABNORMAL) IMMUNOGLOBULIN IGA, IGG & IGM QUANT (02/19/2024 2:23 PM CDT) IGG 997 635 - 1,741 mg/dL [facility] EX[facility] IGA 196 66 - 433 mg/dL [facility] IGM 312(H) 45 - 281 mg/dL [facility] Blood 02/19/2024 2:23 PM CDT Narrative [facility] EXPERT [facility] - 02/20/2024 4:01 PM CDT Release to patient->Immediate us Rosalina Vázquez PHARMACY OPERATIONS SPECIALIST, COTTON WRINGER CHEMISTRY ORDERABLE S Final Result [facility] EX[facility] [place] [address], documented in this encounter Visit Diagnoses Diagnosis Hypogammaglobulinemia (HCC) Hypogammaglobulinaemia, unspecified 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) Iron deficiency Other disorders of iron metabolism documented in this encounter Additional Health Concerns Assessment Noted Time PHQ-9 Depression Total Score: 0 03/08/20 21 11:06 AM CDT documented as of this encounter Care Teams Patient Attendant Relationship Specialty Start Date End Date Jonatan Worley [address] [place] [address] PCP - General Family Medicine 07/12/20 Srinivasa Lee MD [address] [place] [address] Consulting Physician Oncology 07/12/20 documented as of this encounter
--- OUTSIDE RECORDS SUMMARY | 2024-09-14 06:19 | XMS_ITS | Encounter Summary ---
Author Organization [facility] Address [address] [place] [address] Phone Care Team Providers Care Forestry Workers Name Role Phone Jonatan Worley Primary Care Provider [phone] Srinivasa Lee MD Unavailable Reason for Visit * Reason Comments Follow-up Encounter Details Date Type Department Care Team (Latest Contact Info) Description 10/23/2023 2:15 PM CERAMIC MAKER DEMONSTRATOR Office Visit [facility] [address] [address] Srinivasa Lee MD [address] [facility] [address] [address] Hypogammaglobulinemia (HCC) (Primary Dx); Anemia [...] file Legal Sex Female 11:51 AM CERAMIC MAKER DEMONSTRATOR Gender Identity Not on file Sexual Orientation Not on file documented as of this encounter Last Filed Vital Signs Vital Sign Reading Time Taken Comments Blood Pressure 136/82 10/23/2023 2:11 PM CERAMIC MAKER DEMONSTRATOR Pulse 72 10/23/2023 2:11 PM CERAMIC MAKER DEMONSTRATOR Temperature 36.6 ??C (97.8 ??F) 10/23/2023 2:11 PM CS T Respiratory Rate 18 10/23/2023 2:11 PM CERAMIC MAKER DEMONSTRATOR Oxygen Saturation 99% 10/23/2023 2:11 PM CERAMIC MAKER DEMONSTRATOR Inhaled Oxygen Concentration - - Weight 103.5 kg (228 lb 3.2 oz) 10/23/2023 2:11 PM CERAMIC MAKER DEMONSTRATOR Height 170.2 cm (5' 7 ) 10/23/2023 2:11 PM CERAMIC MAKER DEMONSTRATOR Body Mass Index 35.74 10/23/2023 2:11 PM CERAMIC MAKER DEMONSTRATOR documented in this encounter Functional Status * Question Answer Date of Assessment Author Little interest or pleasure in doing things Not at all 10/23/2023 2:11 PM CERAMIC MAKER DEMONSTRATOR Jatin Napier CMA Feeling down, depressed, or hopeless Not at all 10/23/2023 2:11 PM CERAMIC MAKER DEMONSTRATOR Deyanira Napier CMA * Over the past 2 weeks, how often have you been bothered by any of the following problems? Question Answer Date of Assessment Author Patient Health Questionnaire-2 Score 0 10/23/2023 2:11 PM CERAMIC MAKER DEMONSTRATOR Tereza Napier CMA documented as of this encounter Progress Notes * Srinivasa Lee MD - 10/23/2023 2:15 PM CST Images from the original note were not included. Patient: Arely Ernandez Age: 62 y.o. : 1960 [facility] En[facility] Date: 10/23/2023 Care Team: Current [...] 4 TIMES DAILY ??? ergocalciferol (VITAMIN D) 35120 UNIT Capsule ??? ferrous sulfate 325 (65 [...] Component Date Value Ref Range Status ??? [id number] 06/12/2023 11.54 (H) 0.97 - 1.84 mg/L [...] 3.1 2.9 - 4.4 G/DL Final ??? [id number] 06/12/2023 0.3 0.0 - 0.4 G/DL Final ??? [id number] 06/12/2023 0.9 0.4 - 1.0 G/DL Final [...] SCAN WILL FOLLOW VIA COMPUTER, MAIL, OR CUSTOMER CARE VOICE CONSULTANT DELIVERY. ??? PDF 06/12/2023 . Final ??? [...] Final ??? RBC Morphology 06/12/2023 Normal Final MIC MAKER DEMONSTRATOR MIC MAKER DEMONSTRATOR documented in this encounter Plan of Treatment Upcoming Encounters Date Type Department Care Team (Late st Contact Info) Description 10/18/2024 1:30 PM CERAMIC MAKER DEMONSTRATOR Office Visit [facility] [address] [address] Srinivasa Lee MD [facility] [place] [address] documented as of this encounter Visit Diagnoses Diagnosis Hypogammaglobulinemia (HCC)- Primary Hypogammaglobulinaemia, unspecified 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) documented in this encounter Additional Health Concerns Assessment Noted Time PHQ-9 Depression Total Score: 0 03/08/20 21 11:06 AM CDT documented as of this encounter Care Teams Forestry Workers Relationship Specialty Start Date End Date Jonatan Worley [address] [place] [address] PCP - General Family Medicine 07/12/20 Srinivasa Lee MD [address] [place] [id number] Consulting Physician Oncology 07/12/20 documented as of this encounter
--- OUTSIDE RECORDS SUMMARY | 2024-09-14 06:19 | XMS_ITS | Encounter Summary ---
Author Organization [facility] Address [address] [place] [address] Phone Care Team Providers Care Center Lead Consultant Name Role Phone Jonatan Worley Primary Care Provider [phone] Srinivasa Lee MD Unavailable [phone] Encounter Details Date Type Department Care Team (Late st Contact Info) Description 10/23/2023 2:00 PM TRANSLATOR AND INTERPRETER Lab [facility] [address] [address] Lab, Cc [facility] Anemia of unknown etiology; Hypogammaglobulinemia [...] on file Legal Sex Female 11:51 AM TRANSLATOR AND INTERPRETER Gender Identity Not on file Sexual Orientation Not on file documented as of this encounter Functional Status * Question Answer Date of Assessment Author Little interest or pleasure in doing things Not at all 10/23/2023 2:11 PM Jatin Khan CMA Feeling down, depressed, or hopeless Not at all 10/23/2023 2:11 PM TRANSLATOR AND INTERPRETER Deyanira Napier CMA * Over the past 2 weeks, how often have you been bothered by any of the following problems? Question Answer Date of Assessment Author Patient Health Questionnaire-2 Score 0 10/23/2023 2:11 PM TRANSLATOR AND INTERPRETER Tereza Napier CMA documented as of this encounter Plan of Treatment Upcoming Encounters Date Type Department Care Team (Late st Contact Info) Description 10/18/2024 1:30 PM TRANSLATOR AND INTERPRETER Office Visit [facility] [address] [address] Srinivasa Lee MD [address] [place] [address] [place] [id number] documented as of this encounter Procedures Procedure Name Priority Date/Time Associated Diagnosis Comments IRON W/ IRON BINDING CAPACITY OH Routine 10/23/2023 2:04 PM TRANSLATOR AND INTERPRETER Anemia of unknown etiology Hypogammaglobuline ellen (HCC) CBC WITH AUTO DIFF OH Routine 10/23/2023 2:04 PM TRANSLATOR AND INTERPRETER VITAMIN B12 Routine 10/23/2023 2:04 PM TRANSLATOR AND INTERPRETER Anemia of unknown etiology Hypogammaglobuline ellen (HCC) RETICULOCYTE COUNT (RETIC) Routine 10/23/2023 2:04 PM TRANSLATOR AND INTERPRETER Anemia of unknown etiology Hypogammaglobuline ellen (HCC) LACTATE DEHYDROGENASE (LD) Routine 10/23/2023 2:04 PM TRANSLATOR AND INTERPRETER Anemia of unknown etiology Hypogammaglobuline ellen (HCC) FOLIC ACID (FOLATE) Routine 10/23/2023 2 :04 PM TRANSLATOR AND INTERPRETER Anemia of unknown etiology Hypogammaglobuline ellen (HCC) FERRITIN Routine 10/23/2023 2:04 PM TRANSLATOR AND INTERPRETER Anemia of unknown etiology Hypogammaglobuline ellen (HCC) CMP (COMPREHENSIVE METABOLIC PANEL) Routine 10/23/2023 2:04 PM TRANSLATOR AND INTERPRETER Anemia of unknown etiology Hypogammaglobuline ellen (HCC) documented in this encounter Results * (ABNORMAL) CBC WITH AUTO DIFF OH (10/23/2023 2:04 PM TRANSLATOR AND INTERPRETER) WBC 8.1 4.0 - 10.0 10*3/uL CANCER RECRUITER ACCOUNT MANAGER [facility] HGB 9.6(L) 11.2 - 15.7 g/dL CANCER RECRUITER ACCOUNT MANAGER [facility] HCT 29.6(L) 34.1 - 44.9 % CANCER RECRUITER ACCOUNT MANAGER [facility] PLT 166 163 - 369 10*3/uL CANCER RECRUITER ACCOUNT MANAGER [facility] MPV 10.7 9.4 - 12.4 fL CANCER RECRUITER ACCOUNT MANAGER [facility] RBC 3.23(L) 3.93 - 5.22 10*6/uL CANCER RECRUITER ACCOUNT MANAGER [facility] MCV 92 79 - 95 fL CANCER RECRUITER ACCOUNT MANAGER [facility] MCH 29.7 25.6 - 32.2 pg CANCER RECRUITER ACCOUNT MANAGER [facility] MCHC 32.4 32.2 - 36.5 g/dL CANCER RECRUITER ACCOUNT MANAGER [facility] RDW 13.2 11.6 - 14.4 % CANCER RECRUITER ACCOUNT MANAGER [facility] Neutrophils % 48.6 36.0 - 66.0 % CANCER RECRUITER ACCOUNT MANAGER [facility] Lymphocytes % 37.8 19.0 - 40.0 % CANCER RECRUITER ACCOUNT MANAGER [facility] Monocytes % 7.3 4.1 - 12.1 % CANCER RECRUITER ACCOUNT MANAGER [facility] Eosinophils % 5.5(H) 0.0 - 3.5 % CANCER RECRUITER ACCOUNT MANAGER [facility] Basophils % 0.6 0.0 - 1.0 % CANCER RECRUITER ACCOUNT MANAGER [facility] Absolute Neutrophils 4.0 1.4 - 6.6 10*3/uL CANCER RECRUITER ACCOUNT MANAGER [facility] Absolute Lymphocytes 3.1 0.8 - 4.0 10*3/uL CANCER RECRUITER ACCOUNT MANAGER [facility] Absolute Monocytes 0.6 0.2 - 1.2 10*3/uL CANCER RECRUITER ACCOUNT MANAGER [facility] Absolute Eosinophils 0.5(H) 0.0 - 0.4 10*3/uL CANCER RECRUITER ACCOUNT MANAGER [facility] Absolute Basophils 0.1 0.0 - 0.1 10*3/uL [facility] 10/23/2023 2:04 PM TRANSLATOR AND INTERPRETER us Esther Oreilly APRN, CHERELLE LAB SEND OUTS F inal Result Performing Organization Address [facility]/ZIP Co de Phone Number [facility]CR[facility] [place] [address] [place] [address], * RETICULOCYTE COUNT (RETIC) (10/23/2023 2:04 PM TRANSLATOR AND INTERPRETER) Reticulocyte count 1.63 0.50 - 1.70 % [facility] RECRUITER ACCOUNT [facility] RET-He 33.30 28.20 - 36.[address] [facility] Comment: RET-He is a direct assessment of incorporation of iron into erythrocyte hemoglobin. It provides an indirect measure of the iron available for new erythropoiesis over past 2-4 days. Blood 10/23/2023 2:04 PM TRANSLATOR AND INTERPRETER Narrative [facility] - 10/23/2023 2:36 PM TRANSLATOR AND INTERPRETER Release to patient->Immediate Esther Oreilly APRN, CHERELLE HEMATOLOGY ORDERA BLES Final Result Performing Organization Address [facility] Co de Phone Number [facility] [place] [address], * (ABNORMAL) CMP (COMPREHENSIVE METABOLIC PANEL) (10/23/2023 2:04 PM TRANSLATOR AND INTERPRETER) Glucose 200(H) 70 - 105 mg/dL [facility] Blood Urea Nitrogen 54(H) 7 - 25 mg/dL [facility] Creatinine 2.8(H) 0.6 - 1.2 mg/dL [facility] Sodium 134(L) 136 - 145 mEq/L [facility] Potassium 5.3(H) 3.5 - 5.1 mEq/L [facility] Chloride 108(H) 98 - 107 mEq/L [facility] Bicarbonate 19(L) 21 - 31 mEq/L [facility] Total Bilirubin 0.4 0.3 - 1.0 mg/dL [facility] Alk. Phosphatase 61 34 - 104 U/L [facility] Aspartate Aminotransferase 18 13 - 39 U/L [facility] Alanine Aminotransferase 14 7 - 52 U/L [facility] Total Protein 5.7(L) 6.4 - 8.9 g/dL [facility] Albumin 3.4(L) 3.5 - 5.7 g/dL [facility] Calcium 8.3(L) 8.6 - 10.3 mg/dL [facility] Anion Gap 12.3 7.0 - 15.0 mEq/L [facility] Globulin 2.3 2.0 - 3.5 g/dL [facility] EGFR 19(L) >60 ml/min/1. 73m2 [facility] Comment: This eGFR is calculated using 2020 CKD-EPI Creatinine equation without race modifier based on the NKF-ASN task force recommendations Blood 10/23/2023 2:04 PM TRANSLATOR AND INTERPRETER Narrative [facility] - 10/23/2023 2:46 PM TRANSLATOR AND INTERPRETER Release to patient->Immediate IS THE PATIENT REQUIRED TO BE FASTING FOR 8 HOURS?->No Esther Oreilly CRANE OILER, TRANSFORMER ASSEMBLER CHEMISTRY ORDERAB LES Final Result Performing Organization Address City/[facility]/ZIP Co de Phone Number [facility] Cancer [address] [place] [address], [place] [phone] * LACTATE DEHYDROGENASE (LD) (10/23/2023 2:04 PM TRANSLATOR AND INTERPRETER) LDH 158 140 - 271 U/L [facility] Blood 10/23/2023 2:04 PM TRANSLATOR AND INTERPRETER Narrative [facility] - 10/23/2023 2:46 PM TRANSLATOR AND INTERPRETER Release to patient->Immediate Esther Oreilly CRANE OILER, TRANSFORMER ASSEMBLER CHEMISTRY ORDERAB LES Final Result [facility] Cancer [address] [place] [address], [place] [phone] * (ABNORMAL) VITAMIN B12 (10/23/2023 2:04 PM TRANSLATOR AND INTERPRETER) Vitamin B12 1,281(H) 180 - 914 pg/mL CANCER RECRUITER ACCOUNT MANAGER [facility] Blood 10/23/2023 2:04 PM TRANSLATOR AND INTERPRETER Narrative [facility] - 10/24/2023 1:52 PM TRANSLATOR AND INTERPRETER Release to patient->Immediate Esther Oreilly CRANE OILER, TRANSFORMER ASSEMBLER CHEMISTRY ORDERAB LES Final Result Performing Organization Address City/[facility]/ZIP Co de Phone Number CANCER RECRUITER ACCOUNT MANAGER [facility] [address] [place] [address], * FOLIC ACID (FOLATE) (10/23/2023 2:04 PM TRANSLATOR AND INTERPRETER) Folate 12.59 >=5.90 ng/mL [facility] Blood 10/23/2023 2:04 PM TRANSLATOR AND INTERPRETER [facility] RECRUITER ACCOUNT [facility] - 10/24/2023 1:52 PM TRANSLATOR AND INTERPRETER Release to patient->Immediate IS THE PATIENT REQUIRED TO BE FASTING FOR 12 HOURS?->No Esther Oreilly APRN, TRANSFORMER ASSEMBLER CHEMISTRY ORDERAB LES Final Result Performing Organization Address City/[facility]/ZIP Co de Phone Number [facility]CR[facility] Cancer Care [address] [place] [address], [place] [phone] * FERRITIN (10/23/2023 2:04 PM TRANSLATOR AND INTERPRETER) Ferritin 82 11 - 307 ng/mL [facility] Blood 10/23/2023 2:04 PM TRANSLATOR AND INTERPRETER [facility] RECRUITER ACCOUNT [facility] - 10/24/2023 1:52 PM TRANSLATOR AND INTERPRETER Release to patient->Immediate Esther Oreilly CRANE OILER, TRANSFORMER ASSEMBLER CHEMISTRY ORDERAB LES Final Result [facility] [address] [place] [address], * (ABNORMAL) IRON W/ IRON BINDING CAPACITY [place] (10/23/2023 2:04 PM TRANSLATOR AND INTERPRETER) IRON 58 50 - 212 ug/dL [facility] UIBC 186 155 - 355 ug/dL [facility] TIBC 244(L) 261 - 478 ug/dl [facility] % Saturation 24 20 - 50 % [facility] 10/23/2023 2:04 PM TRANSLATOR AND INTERPRETER Narrative [facility] - 10/23/2023 2:46 PM TRANSLATOR AND INTERPRETER Release to patient->Immediate Esther Oreilly APRN, TRANSFORMER ASSEMBLER LAB SEND OUTS F inal Result [facility] [address] [place] [address], [place] [phone] documented in this encounter Visit Diagnoses Diagnosis Anemia of unknown etiology Anemia, unspecified Hypogammaglobulinemia (HCC) Hypogammaglobulinaemia, unspecified documented in this encounter Additional Health Concerns Assessment Noted Time PHQ-9 Depression Total Score: 0 03/08/20 21 11:06 AM CDT documented as of this encounter Care Teams Center Lead Consultant Relationship Specialty Start Date End Date Jonatan Worley [address] [place] [address] PCP - General Family Medicine 07/12/20 Srinivasa Lee MD [address] [place] [phone] Consulting Physician Oncology 07/12/20 documented as of this encounter
--- OUTSIDE RECORDS SUMMARY | 2024-09-14 06:19 | XMS_ITS | Encounter Summary ---
Author Organization [facility] Address [address] [place] [address] Phone Care Team Providers Care Seat Scooper Machine Name Role Phone Jonatan Worley Primary Care Provider [phone] Srinivasa Lee MD Unavailable [phone] Encounter Details Date Type Department Care Team (Late st Contact Info) Description 03/07/2023 Telephone [facility] [address] [place] [address] [employer], PAC Social History [...] on file Legal Sex Female 11:51 AM LATHE OPERATOR Gender Identity Not on file Sexual [...] 6 hours ago (8:33 AM) Guerita Link [facility] You; [facility] Nurse Navigator Pool; Buzz [...] st Contact Info) Description 10/18/2024 1:30 PM LATHE OPERATOR Office Visit [facility] [address] [place] [phone] Srinivasa Lee MD [address] [place] [address] [phone] documented as of this encounter Visit Diagnoses Not on filedocumented in this encounter Additional Health Concerns Assessment Noted Time PHQ-9 Depression Total Score: 0 03/08/20 21 11:06 AM CDT documented as of this encounter Care Teams Seat Scooper Machine Relationship Specialty Start Date End Date Jonatan Worley [address] [place] [address] PCP - General Family Medicine 07/12/20 Srinivasa Lee MD [address] [place] [phone] Consulting Physician Oncology 07/12/20 documented as of this encounter
--- OUTSIDE RECORDS SUMMARY | 2024-09-14 06:19 | XMS_ITS | Encounter Summary ---
Author Organization [employer] Care Team Providers Care Trauma Therapist Name Role Phone Jonatan Worley Primary Care Provider [phone] Srinivasa Lee MD Unavailable Encounter Details Date [...] file Legal Sex Female 11:51 AM HAT BLOCKING MACHINE OPERATOR Gender Identity Not on file [...] Contact Info) Description 10/18/2024 1:30 PM HAT BLOCKING MACHINE OPERATOR Office Visit [facility] [place] [address] [place] [address] Srinivasa Lee MD [address] [address] [place] [address] documented as of this encounter Visit Diagnoses Not on filedocumented in this encounter Additional Health Concerns Assessment Noted Time PHQ-9 Depression Total Score: 0 03/08/20 21 11:06 AM CDT documented as of this encounter Care Teams Trauma Therapist Relationship Specialty Start Date End Date Jonatan Worley [address] [place] [address] PCP - General Family Medicine 07/12/20 Srinivasa Lee MD [address] [place] [phone] Consulting Physician Oncology 07/12/20 documented as of this encounter
--- OUTSIDE RECORDS SUMMARY | 2024-09-14 06:19 | XMS_ITS | Encounter Summary ---
Author Organization [facility] Address [address] [place] [address] Phone Care Team Providers Care Pouch Making Machine Operator Name Role Phone Jonatan Worley Primary Care Provider Srinivasa Lee MD Unavailable [phone] Encounter Details Date Type Department Care Team (Latest Contact Info) Description 06/12/2023 2:05 PM CDT Lab [facility] [address] [address] Lab, Cc [facility] [place] Hypogammaglobulinemia (HCC); Anemia of unknown etiology [...] on file Legal Sex Female 11:51 AM ICU SPECIALIST Gender Identity Not on file Sexual [...] st Contact Info) Description 10/18/2024 1:30 PM ICU SPECIALIST Office Visit [facility] [address] [address] Srinivasa Lee MD [address] [place] [address] documented as of this encounter [...] WBC 9.8 4.0 - 10.0 10*3/uL [facility] HGB 10.0(L) 11.2 - 15.7 g/dL [facility] HCT 31.3(L) 34.1 - 44.9 % [facility] PLT 200 163 - 369 10*3/uL [facility] MPV 10.0 9.4 - 12.4 fL [facility] RBC 3.46(L) 3.93 - 5.22 10*6/uL [facility] MCV 91 79 - 95 fL [facility] MCH 28.9 25.6 - 32.2 pg [facility] MCHC 31.9(L) 32.2 - 36.5 g/dL [facility] RDW 12.9 11.6 - 14.4 % [facility] Absolute Neutrophil Count 6,546 cells/uL [facility] Absolute Seg Count 6,546 1,440 - 6,600 cells/uL [facility] Absolute Lymph Count 1,759 760 - 4,000 cells/uL [facility] WET PRESS TENDER [facility] Absolute [place] Count 586 160 - 1,200 cells/uL [facility] Absolute Eos Count 879(H) 0 - 300 cells/uL [facility] WET PRESS [facility] Segmented Neutrophils 67(H) 36 - 66 % [facility] WET PRESS [facility] Lymphocytes 18(L) 19 - 40 % [facility] Monocytes 6 4 - 12 % [facility] Eosinophils 9(H) 0 - 3 % [facility] WBC Estimate Normal [facility] WET [facility]ESS T[facility] Platelet Estimate Normal [facility] WET PRESS T[facility] RBC Morphology Normal CANCE R [facility] Blood 06/12/2023 2:25 PM CDT Narrative [facility] - 06/12/2023 3:27 PM CDT Release to patient->Immediate Buzz Sales [facility] HEMATOLOGY ORDERABLES Kym tineo Result [facility] WET [facility] [place] [address], * (ABNORMAL) CMP (COMPREHENSIVE METABOLIC PANEL) (06/12/2023 2:25 PM CDT) Glucose 161(H) 70 - 105 mg/dL [facility] Blood Urea Nitrogen 37(H) 7 - 25 mg/dL [facility] Creatinine 2.6(H) 0.6 - 1.2 mg/dL [facility] Sodium 138 136 - 145 mEq/L [facility] Potassium 5.0 3.5 - 5.1 mEq/L [facility] Chloride 111(H) 98 - 107 mEq/L [facility] Bicarbonate 19(L) 21 - 31 mEq/L [facility] Total Bilirubin 0.3 0.3 - 1.0 mg/dL [facility] Alk. Phosphatase 89 34 - 104 U/L [facility] Aspartate Aminotransferase 16 13 - 39 U/L [facility] Alanine Aminotransferase 10 7 - 52 U/L [facility] Total Protein 6.2(L) 6.4 - 8.9 g/dL [facility] Albumin 3.5 3.5 - 5.7 g/dL [facility] Calcium 9.0 8.6 - 10.3 mg/dL [facility] Anion Gap 13.0 7.0 - 15.0 mEq/L [facility] Globulin 2.7 2.0 - 3.5 g/dL [facility] EGFR 20(L) >60 ml/min/1. 73m2 [facility] Comment: This eGFR is calculated using 2020 CKD-EPI Creatinine equation without race modifier based on the NKF-ASN task force recommendations Blood 06/12/2023 2:25 PM CDT [facility] - 06/12/2023 3:29 PM CDT Release to patient->Immediate IS THE PATIENT REQUIRED TO BE FASTING FOR 8 HOURS?->No Buzz Sales PAC CHEMISTRY ORDERABLES Final Result Performing Organization Address City/[facility]/ZIP Co de Phone Number [facility] [address] [place] [place] [address], [place] [phone] * LACTATE DEHYDROGENASE (LD) (06/12/2023 2:25 PM CDT) LDH 152 140 - 271 U/L [facility] Blood 06/12/2023 2:25 PM CDT [facility] - 06/12/2023 3:29 PM CDT Release to patient->Immediate Buzz Sales PAC CHEMISTRY ORDERABLES Final Result [facility] [address] [place] [address], [place] [phone] * (ABNORMAL) IRON W/ IRON BINDING CAPACITY [place] (06/12/2023 2:25 PM CDT) IRON 64 50 - 212 ug/dL [facility] UIBC 188 155 - 355 ug/dL [facility] TIBC 252(L) 261 - 478 ug/dl [facility] % Saturation 25 20 - 50 % [facility] Blood 06/12/2023 2:25 PM CDT Narrative [facility] - 06/12/2023 3:29 PM CDT Release to patient->Immediate us Buzz Sales PAC LAB SEND OUTS Final Resu lt [facility] [address] [address], [place] [phone] * FERRITIN (06/12/2023 2:25 PM CDT) Ferritin 69 11 - 307 ng/mL [facility] Blood 06/12/2023 2:25 PM CDT Narrative [facility] - 06/13/2023 3:29 PM CDT Release to patient->Immediate us Buzz Sales PAC CHEMISTRY ORDERABLES Final Result Performing Organization Address [facility]/ZIP Co de Phone Number [facility] [address] [place] [address], [place] [phone] * (ABNORMAL) VITAMIN B12 (06/12/2023 2:25 PM CDT) Vitamin B12 1,442(H) 180 - 914 pg/mL [facility] Blood 06/12/2023 2:25 PM CDT Narrative [facility] - 06/13/2023 3:29 PM CDT Release to patient->Immediate us Buzz Sales PAC CHEMISTRY ORDERABLES Final Result [facility] [address] [place] [address], * IMMUNOGLOBULIN IGA, IGG & IGM QUANT (06/12/2023 2:25 PM CDT) IGG 960 635 - 1,741 mg/dL [facility] IGA 238 66 - 433 mg/dL [facility] IGM 101 45 - 281 mg/dL [facility] Blood 06/12/2023 2:25 PM CDT Narrative [facility] - 06/13/2023 3:31 PM CDT Release to patient->Immediate Buzz Sales PAC CHEMISTRY ORDERABLES Final Result [facility] [address] [place] [address], * ELECTROPHORESIS W/ TOTAL PROTEIN SERUM (06/12/2023 2:25 PM CDT) PROTEIN, TOTAL, SERUM 6.2 6.0 - 8.5 G/DL [facility] ALBUMIN 3.1 2.9 - 4.4 G/DL [facility] [id number] 0.3 0.0 - 0.4 G/DL [facility] [id number] 0.9 0.4 - 1.0 G/DL [facility] BETA GLOBULIN 0.9 0.7 - 1.3 G/DL [facility] GAMMA GLOBULIN 1.0 0.4 - 1.8 G/DL [facility] M-SPIKE NOT OBSERVED NOT OBSERVED G/DL [facility] GLOBULIN, TOTAL 3.1 2.2 - 3.9 G/DL [facility] A/G RATIO 1.0 0.7 - 1.[address] [facility] PLEASE NOTE: COMMENT [facility] Comment: PROTEIN ELECTROPHORESIS SCAN WILL FOLLOW VIA COMPUTER, MAIL, OR GLASS UNLOADING EQUIPMENT TENDER DELIVERY. PDF . [facility] Blood 06/12/2023 2:25 PM CDT Narrative [facility] - 06/13/2023 3:09 PM CDT TESTING PERFORMED AT: [] [facility], [address] [place] [address], [id number], PHONE: [phone], TELE MARKETING EXECUTIVE: PEGGY MARCUS, PHD Release to patient->Immediate Buzz Sales PAC CHEMISTRY ORDERABLES Final Result Performing Organization Address [facility]/ZIP Co de Phone Number [facility] [address] [place] [place] [address], [place] [phone] * IMMUNOFIXATION, SERUM [place] (06/12/2023 2:25 PM CDT) IMMUNOFIXATION RESULT, SERUM COMMENT: [facility] Comment: PRESENCE OF MONOCLONAL PROTEIN IS UNCLEAR AT THIS TIME. SUGGEST REPEAT IN 3 TO 6 MONTHS IF CLINICALLY INDICATED. 06/12/2023 2:25 PM CDT Narrative [facility] - 06/13/2023 3:09 PM CDT TESTING PERFORMED AT: [] [facility], [address] [place] [address], [id number], PHONE: [phone], TELE MARKETING EXECUTIVE: PEGGY MARCUS, PHD Release to patient->Immediate Buzz Sales PAC LAB SEND OUTS Final Resu lt Performing Organization Address [facility]/ZIP Co de Phone Number [facility] [place] [address] [address], [place] [phone] * (ABNORMAL) FREE KAPPA & LAMBDA LIGHT CHAINS SERUM (06/12/2023 2:25 PM CDT) FREE KAPPA LT CHAINS,S 113.4(H) 3.3 - 19.4 MG/L [facility] FREE LAMBDA LT CHAINS,S 91.9(H) 5.7 - 26.3 MG/L [facility] [place] FREE KAPPA/FREE LAMBDA RATIO LT CHAINS 1.23 0.26 - 1.65 [facility] Blood 06/12/2023 2:25 PM CDT Narrative [facility] - 06/13/2023 3:09 PM CDT TESTING PERFORMED AT: [] [address], [place], [address], PHONE: [phone], TELE MARKETING EXECUTIVE: PEGGY MARCUS, PHD Release to patient->Immediate Buzz Sales PAC CHEMISTRY ORDERABLES Final Result Performing Organization Address City/[facility]/ZIP Co de Phone Number [facility] [place] [address], [place] [phone] * (ABNORMAL) BETA 2 MICROGLOBULIN (06/12/2023 2:25 PM CDT) [id number] 11.54(H) 0.97 - 1.84 mg/L [facility] Blood 06/12/2023 2:25 PM CDT [facility] - 06/13/2023 3:31 PM CDT Release to patient->Immediate Buzz Sales PAC CHEMISTRY ORDERABLES Final Result Performing Organization Address City/[facility] Co de Phone Number [facility] [place] [place] [address], [place] [phone] documented in this encounter Visit Diagnoses Diagnosis Hypogammaglobulinemia (HCC) Hypogammaglobulinaemia, unspecified Anemia of unknown etiology Anemia, unspecified documented in this encounter Additional Health Concerns Assessment Noted Time PHQ-9 Depression Total Score: 0 03/08/20 21 11:06 AM CDT documented as of this encounter Care Teams Pouch Making Machine Operator Relationship Specialty Start Date End Date Jonatan Worley [address] [place] [address] PCP - General Family Medicine 07/12/20 Srinivasa Lee MD [address] [place] [id number] Consulting Physician Oncology 07/12/20 documented as of this encounter
--- OUTSIDE RECORDS SUMMARY | 2024-09-14 06:19 | XMS_ITS | Clinical Summary ---
Author Organization [facility] Address [address], [facility] [address] [place] [address] Phone Care Team Providers Care Neurophysiology Tech Name Role Phone Jonatan Worley Primary Care Provider [phone] Srinivasa Lee MD Unavailable [phone] Allergies Active Allergy Reactions Criticality Noted Date Comments Penicillins Other (see Comments) 07/28/2020 'black out' Medications rosuvastatin (CRESTOR) 5 MG Tablet TAKE 1 TABLET BY MOUTH ONCE DAILY 07/12/2020 Active glimepiride (AMARYL) 4 MG Tablet TAKE 1 TABLET BY MOUTH ONCE DAILY 07/13/2020 Active ergocalciferol (VITAMIN D) 83507 UNIT Capsule 07/19/2020 Active dorzolamide (TRUSOPT) 2 [...] PM CDT Lab [facility] [address] [id number] Lab, [facility] [place] Hypogammaglobulinemia (HCC); 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); Iron deficiency 06/17/2024 2:00 PM CDT Office Visit [facility] [address] [address] Esther Oreilly APRN, MID LEVEL GAME DESIGNER Hypogammaglobulinemia (HCC) (Primary Dx); Anemia in stage [...] on file Legal Sex Female 11:51 AM FORESTER AIDE Gender Identity Not on file Sexual Orientation [...] st Contact Info) Description 10/18/2024 1:30 PM FORESTER AIDE Office Visit [facility] [address] [address] Srinivasa Lee MD [address] [place], [place] [id number] Health Maintenance Due Date Last Done Comments [...] CHAINS 189.1(H) 2.9 - 20.7 mg/L [facility] FREE LAMBDA LT CHAINS 167.5(H) 4.2 - 27.6 mg/L [facility] KAPPA/LAMBDA RATIO 1.13 0.22 - 1.74 [facility] 06/17/2024 2:52 PM CDT Narrative [facility] - 06/18/2024 1:11 PM CDT Release to patient->Immediate us Esther Oreilly RESIDENT SERVICE COORDINATOR, MID LEVEL GAME DESIGNER LAB SEND OUTS F inal Result [facility]CLE [facility] [place] [address], * (ABNORMAL) IRON W/ IRON BINDING CAPACITY [place] (06/17/2024 2:52 PM CDT) IRON 25(L) 50 - 212 ug/dL [facility] UIBC 194 155 - 355 ug/dL [facility] TIBC 219(L) 261 - 478 ug/dl [facility] % Saturation 11(L) 20 - 50 % [facility] 06/17/2024 2:52 PM CDT Narrative [facility]IC[facility]CLE I [facility] - 06/17/2024 3:35 PM CDT Release to patient->Immediate Esther Oreilly APRN, MID LEVEL GAME DESIGNER LAB SEND OUTS F inal Result Performing Organization Address [facility] Co de Phone Number CANCER BICYCLE I ASSEMBLER [facility] [address] [address], [place] [phone] * IMMUNOFIXATION, SERUM [place] (06/17/2024 2:52 PM CDT) IMMUNOFIXATION RESULT, SERUM COMMENT [facility]YCLE [facility] Comment:NO MONOCLONALITY DET ECTED. 06/17/2024 2:52 PM CDT Narrative [facility] - 06/18/2024 3:10 PM CDT TESTING PERFORMED AT: [] [facility], [address] [address], [address], PHONE: [phone], FIREFIGHTER MARINE: PEGGY MARCUS, PHD Release to patient->Immediate Esther Oreilly APRN, MID LEVEL GAME DESIGNER LAB SEND OUTS F inal Result Performing Organization Address [facility]/ZIP Co de Phone Number CANCER BICYCLE I ASSEMBLER [facility] [address] [place] [address], [place] [phone] * (ABNORMAL) CBC WITH AUTO DIFF [place] (06/17/2024 2:52 PM CDT) WBC 6.5 4.0 - 10.0 10*3/uL [facility]ICYCLE I ASSEMBL[facility] HGB 9.4(L) 11.2 - 15.7 g/dL [facility] BICYCLE I ASSEM[facility] HCT 30.2(L) 34.1 - 44.9 % [facility]ER BICYCLE I ASSEMBL[facility] PLT 177 163 - 369 10*3/uL [facility]ER BICYCLE I ASSEMBL[facility] MPV 9.2(L) 9.4 - 12.4 fL [facility] BICYCLE I [facility]SEM[facility] RBC 3.40(L) 3.93 - 5.22 10*6/uL CANCER BICYCLE I ASSEMBLER [facility] MCV 89 79 - 95 fL [facility]ER BICYCLE I ASSEMBLER [facility] MCH 27.6 25.6 - 32.2 pg [facility]ER BICYCLE I ASSEMBLER [facility] MCHC 31.1(L) 32.2 - 36.5 g/dL [facility] BICYCLE I ASSEMBL[facility] RDW 15.4(H) 11.6 - 14.4 % [facility]CLE I [facility] Neutrophils % 72.1(H) 36.0 - 66.0 % [facility]ICYCLE I ASSEM[facility] Lymphocytes % 17.4(L) 19.0 - 40.0 % [facility] BICYCLE I ASSEM[facility] Monocytes % 6.2 4.1 - 12.1 % [facility]ER BICYCLE I ASSEMBL[facility] Eosinophils % 3.2 0.0 - 3.5 % [facility] BICYCLE I ASSEM[facility] Basophils % 0.5 0.0 - 1.0 % [facility] BICYCLE I ASSEM[facility] Absolute Neutrophils 4.7 1.4 - 6.6 10*3/uL [facility] BICYCLE I ASSEM[facility] Absolute Lymphocytes 1.1 0.8 - 4.0 10*3/uL [facility] Absolute Monocytes 0.4 0.2 - 1.2 10*3/uL [facility] BICYCLE I ASSEMBLER [facility] Absolute Eosinophils 0.2 0.0 - 0.4 10*3/uL [facility] BICYCLE I ASSEMBLER [facility] Absolute Basophils 0.0 0.0 - 0.1 10*3/uL [facility] BICYCLE I ASSEM[facility] 06/17/2024 2:52 PM CDT us Esther Oreilly RESIDENT SERVICE COORDINATOR, MID LEVEL GAME DESIGNER LAB SEND OUTS F inal Result CANCER BICYCLE I ASSEMBLER [facility] [place] [address], * (ABNORMAL) VITAMIN B12 (06/17/2024 2:52 PM CDT) Vitamin B12 1,009(H) 180 - 914 pg/mL [facility] Blood 06/17/2024 2:52 PM CDT [facility] - 06/21/2024 7:57 AM CDT Release to patient->Immediate Esther Oreilly APRN, CNP CHEMISTRY ORDERAB LES Final Result Performing Organization Address [facility] de Phone Number [facility] [place] [address], * RETICULOCYTE COUNT (RETIC) (06/17/2024 2:52 PM CDT) Reticulocyte count 1.70 0.50 - 1.70 % [facility] RET-He 29.80 28.20 - 36.60 pg [facility] Comment: RET-He is a direct assessment of incorporation of iron into erythrocyte hemoglobin. It provides an indirect measure of the iron available for new erythropoiesis over past 2-4 days. Blood 06/17/2024 2:52 PM CDT [facility] - 06/17/2024 3:03 PM CDT Release to patient->Immediate Esther Oreilly APRN, CNP HEMATOLOGY ORDERA BLES Final Result Performing Organization Address [facility] de Phone Number [facility] [place] [place] [address], * LACTATE DEHYDROGENASE (LD) (06/17/2024 2:52 PM CDT) LDH 183 140 - 271 U/L [facility] Blood 06/17/2024 2:52 PM CDT [facility] - 06/17/2024 3:35 PM CDT Release to patient->Immediate Esther Oreilly RESIDENT SERVICE COORDINATOR, MID LEVEL GAME DESIGNER CHEMISTRY ORDERAB LES Final Result Performing Organization Address [facility]/ZIP Co de Phone Number CANCER BICYCLE I ASSEMBLER [facility] [address] [place] [address], [place] [phone] * (ABNORMAL) IMMUNOGLOBULIN IGA, IGG & IGM QUANT (06/17/2024 2:52 PM CDT) IGG 1,383 635 - 1,741 mg/dL [facility] IGA 217 66 - 433 mg/dL [facility] IGM 462(H) 45 - 281 mg/dL [facility] BICYCLE I ASSEMBLER [facility] Blood 06/17/2024 2:52 PM CDT [facility] - 06/18/2024 1:11 PM CDT Release to patient->Immediate Esther Oreilly APRN, MID LEVEL GAME DESIGNER CHEMISTRY ORDERAB LES Final Result Performing Organization Address [facility] Co de Phone Number CANCER BICYCLE I ASSEMBLER [facility] [place] [address], [place] [phone] * FOLIC ACID (FOLATE) (06/17/2024 2:52 PM CDT) Folate 8.45 >=5.90 ng/mL [facility] Blood 06/17/2024 2:52 PM CDT [facility] - 06/21/2024 7:57 AM CDT Release to patient->Immediate IS THE PATIENT REQUIRED TO BE FASTING FOR 12 HOURS?->No Esther Oreilly APRN, MID LEVEL GAME DESIGNER CHEMISTRY ORDERAB LES Final Result Performing Organization Address [facility]/ZIP Co de Phone Number CANCER BICYCLE I ASSEMBLER [facility] [place] [address], [place] [phone] * FERRITIN (06/17/2024 2:52 PM CDT) Ferritin 126 11 - 307 ng/mL [facility] Blood 06/17/2024 2:52 PM CDT Narrative [facility] BICYCLE I ASSEMBLER [facility] - 06/21/2024 7:57 AM CDT Release to patient->Immediate Esther Oreilly RESIDENT SERVICE COORDINATOR, MID LEVEL GAME DESIGNER CHEMISTRY ORDERAB LES Final Result [facility]CER BICYCLE I ASSEMBLER [facility] [address] [place] [address], * (ABNORMAL) ELECTROPHORESIS W/ TOTAL PROTEIN SERUM (06/17/2024 2:52 PM CDT) PROTEIN, TOTAL, SERUM 6.1 6.0 - 8.5 G/DL [facility] BICYCLE I ASSEMBL[facility] ALBUMIN 2.7(L) 2.9 - 4.4 G/DL [facility]ICYCLE I ASSEM[facility] [id number] 0.3 0.0 - 0.4 G/DL [facility] BICYCLE I ASSEMBL[facility] [id number] 0.8 0.4 - 1.0 G/DL [facility] I AS[facility] BETA GLOBULIN 0.8 0.7 - 1.3 G/DL [facility] BICYCLE I ASSEM[facility] GAMMA GLOBULIN 1.5 0.4 - 1.8 G/DL [facility]CLE I [facility] M-SPIKE NOT OBSERVED NOT OBSERVED G/DL [facility] BICYCLE I ASSEM[facility] GLOBULIN, TOTAL 3.4 2.2 - 3.9 G/DL [facility]YCLE I [facility] A/G RATIO 0.8 0.7 - 1.7 [address] [facility] PLEASE NOTE: COMMENT [facility] B[facility]CLE [facility]SEM[facility] Comment: PROTEIN ELECTROPHORESIS SCAN WILL FOLLOW VIA COMPUTER, MAIL, OR CLOTH FINISHING RANGE OPERATOR CHIEF DELIVERY. PDF . [facility] Blood 06/17/2024 2:52 PM CDT Narrative [facility]ICYCLE I ASSEMBL[facility] - 06/18/2024 3:10 PM CDT TESTING PERFORMED AT: [] [facility], [address] [place] [address], [place], [address], PHONE: [phone], FIREFIGHTER MARINE: PEGGY MARCUS, PHD Release to patient->Immediate us Esther Oreilly APRN, CHERELLE CHEMISTRY ORDERAB LES Final Result CANCER BICYCLE I ASSEMBLER [facility] [place] [address], [place] [phone] * (ABNORMAL) CMP (COMPREHENSIVE METABOLIC PANEL) (06/17/2024 2:52 PM CDT) Glucose 227(H) 70 - 105 mg/dL [facility] Blood Urea Nitrogen 35(H) 7 - 25 mg/dL [facility] Creatinine 2.5(H) 0.6 - 1.2 mg/dL [facility] Sodium 134(L) 136 - 145 mEq/L [facility] Potassium 4.9 3.5 - 5.1 mEq/L [facility] Chloride 103 98 - 107 mEq/L [facility] Bicarbonate 20(L) 21 - 31 mEq/L [facility] Total Bilirubin 0.5 0.3 - 1.0 mg/dL [facility] Alk. Phosphatase 77 34 - 104 U/L [facility] Aspartate Aminotransferase 17 13 - 39 U/L [facility] Alanine Aminotransferase 8 7 - 52 U/L [facility] Total Protein 6.2(L) 6.4 - 8.9 g/dL [facility] Albumin 3.1(L) 3.5 - 5.7 g/dL [facility] Calcium 8.6 8.6 - 10.3 mg/dL [facility] Anion Gap 15.9(H) 7.0 - 15.0 mEq/L [facility] Globulin 3.1 2.0 - 3.5 g/dL [facility] EGFR 21(L) >60 ml/min/1. 73m2 [facility] Comment: This eGFR is calculated using 2020 CKD-EPI Creatinine equation without race modifier based on the NKF-ASN task force recommendations Blood 06/17/2024 2:52 PM CDT Narrative [facility] - 06/17/2024 3:35 PM CDT Release to patient->Immediate IS THE PATIENT REQUIRED TO BE FASTING FOR 8 HOURS?->No us Esther Oreilly RESIDENT SERVICE COORDINATOR, MID LEVEL GAME DESIGNER CHEMISTRY ORDERAB LES Final Result [facility] BICYCLE I AS[facility]BL[facility] [place] [address], from Last 3 Months Insurance [place]OVAR [id number] Care Teams Neurophysiology Tech Relationship Specialty Start Date End Date Meir Jonatan [address] [place] [address] PCP - General Family Medicine 07/12/20 Srinivasa Lee MD [address] [place] [phone] Consulting Physician Oncology 07/12/20
--- OUTSIDE RECORDS SUMMARY | 2024-09-14 06:19 | XMS_ITS | Encounter Summary ---
Author Organization [facility] [[email or web address]] Address [address] [place] [address] Phone Care Team Providers Care Commercial Finance Manager Name Role Phone Jonatan Worley Primary Care Provider Srinivasa Lee MD Unavailable Reason for Visit * Reason Comments Follow-up Encounter Details Date Type Department Care Team (Late st Contact Info) Description 06/12/2023 2:15 PM CDT Office Visit [facility] [place] [address] [place] [address] Esther Oreilly, SHRIMP PICKER, ENVELOPE MAKER [address] [place] [address] Anemia of unknown etiology (Primary [...] on file Legal Sex Female 11:51 AM CASE MANAGEMENT ASSOCIATE Gender Identity Not on file Sexual [...] encounter Progress Notes * Esther Rojas, DIDI, ENVELOPE MAKER - 06/12/2023 2:15 PM CDT Images from the original note were not included. Patient: Arely Ernandez Age: 62 y.o. : 1960 Encounter Dept: [facility] Encounter Date: 06/12/2023 Care Team: Current Providers PCP: Jonatan Worley Care Team Provider: Srinivasa Lee MD Encounter Provider: Esther Rojas, SHRIMP PICKER, ENVELOPE MAKER Referring Provider: not found Nurse Practitioner: Esther Rojas, SHRIMP PICKER, ENVELOPE MAKER HISTORY OF PRESENT ILLNESS: Ms. Arely Ernandez [...] shown below reviewed. MD Esther Arriola, DNP, [facility]- Vitals: Vitals: 06/12/23 1421 BP: 148/80 BP [...] 4 TIMES DAILY ??? ergocalciferol (VITAMIN D) 73194 UNIT Capsule ??? ferrous sulfate 325 (65 [...] 760 - 4,000 cells/uL Final ??? Absolute [place] Count 06/12/2023 586 160 - 1,200 cells/uL [...] st Contact Info) Description 10/18/2024 1:30 PM CASE MANAGEMENT ASSOCIATE Office Visit [facility] [address] [address] Srinivasa Lee MD [facility] [place] [address] documented as of this encounter Results * RETICULOCYTE COUNT (RETIC) (10/23/2023 2:04 PM CASE MANAGEMENT ASSOCIATE) Reticulocyte count 1.63 0.50 - 1.70 % [facility] PROFESSOR OF HISTORICAL THEOLOGY [facility] RET-He 33.30 28.20 - 36.60 pg [facility] PROFESSOR OF HISTORICAL THEOLOGY [facility] Comment: RET-He is a direct assessment of incorporation of iron into erythrocyte hemoglobin. It provides an indirect measure of the iron available for new erythropoiesis over past 2-4 days. Blood 10/23/2023 2:04 PM CASE MANAGEMENT ASSOCIATE Narrative [facility] PROFESSOR OF HISTORICAL THEOLOGY [facility] - 10/23/2023 2:36 PM CASE MANAGEMENT ASSOCIATE Release to patient->Immediate Esther Oreilly APRN, CNP HEMATOLOGY ORDERA BLES Final Result [facility] [address] [facility] [place] [address], [place] [phone] * (ABNORMAL) IRON W/ IRON BINDING CAPACITY [place] (10/23/2023 2:04 PM CASE MANAGEMENT ASSOCIATE) IRON 58 50 - 212 ug/dL [facility] PROFESSOR OF HISTORICAL THEOLOGY [facility] UIBC 186 155 - 355 ug/dL [facility] TIBC 244(L) 261 - 478 ug/dl [facility] % Saturation 24 20 - 50 % [facility] PROFESSOR OF HISTORICAL THEOLOGY [facility] 10/23/2023 2:04 PM CASE MANAGEMENT ASSOCIATE [place] [facility] - 10/23/2023 2:46 PM CASE MANAGEMENT ASSOCIATE Release to patient->Immediate Esther Oreilly APRN, CHERELLE LAB SEND OUTS F inal Result [facility] [place] [address], [place] [phone] * FERRITIN (10/23/2023 2:04 PM CASE MANAGEMENT ASSOCIATE) Ferritin 82 11 - 307 ng/mL [facility] PROFESSOR OF HISTORICAL THEOLOGY [facility] Blood 10/23/2023 2:04 PM CASE MANAGEMENT ASSOCIATE Narrative [facility] PROFESSOR OF HISTORICAL THEOLOGY [facility] - 10/24/2023 1:52 PM CASE MANAGEMENT ASSOCIATE Release to patient->Immediate Esther Oreilly APRN, ENVELOPE MAKER CHEMISTRY ORDERAB LES Final Result Performing Organization Address [facility]/ZIP Co de Phone Number CANCER PROFESSOR OF HISTORICAL THEOLOGY [facility] [address] [place] [address], [place] [phone] * FOLIC ACID (FOLATE) (10/23/2023 2:04 PM CASE MANAGEMENT ASSOCIATE) Folate 12.59 >=5.90 ng/mL [facility] PROFESSOR OF HISTORICAL THEOLOGY [facility] Blood 10/23/2023 2:04 PM CASE MANAGEMENT ASSOCIATE Narrative [facility] - 10/24/2023 1:52 PM CASE MANAGEMENT ASSOCIATE Release to patient->Immediate IS THE PATIENT REQUIRED TO BE FASTING FOR 12 HOURS?->No Esther Oreilly APRN, ENVELOPE MAKER CHEMISTRY ORDERAB LES Final Result Performing Organization Address [facility]/ZIP Co de Phone Number CANCER PROFESSOR OF HISTORICAL THEOLOGY [facility] [address] [place] [address], [place] [phone] * (ABNORMAL) VITAMIN B12 (10/23/2023 2:04 PM CASE MANAGEMENT ASSOCIATE) Vitamin B12 1,281(H) 180 - 914 pg/mL [facility] Blood 10/23/2023 2:04 PM CASE MANAGEMENT ASSOCIATE Narrative [facility] - 10/24/2023 1:52 PM CASE MANAGEMENT ASSOCIATE Release to patient->Immediate Esther Oreilly APRN, ENVELOPE MAKER CHEMISTRY ORDERAB LES Final Result Performing Organization Address City/[facility]/ZIP Co de Phone Number CANCER PROFESSOR OF HISTORICAL THEOLOGY [facility] [address] [place] [address], [place] [phone] * LACTATE DEHYDROGENASE (LD) (10/23/2023 2:04 PM CASE MANAGEMENT ASSOCIATE) LDH 158 140 - 271 U/L [facility] Blood 10/23/2023 2:04 PM CASE MANAGEMENT ASSOCIATE Narrative CANCER PROFESSOR OF HISTORICAL THEOLOGY [facility] - 10/23/2023 2:46 PM CASE MANAGEMENT ASSOCIATE Release to patient->Immediate Esther Oreilly SHRIMP PICKER, ENVELOPE MAKER CHEMISTRY ORDERAB LES Final Result CANCER PROFESSOR OF HISTORICAL THEOLOGY [facility] [place] [address], * (ABNORMAL) CMP (COMPREHENSIVE METABOLIC PANEL) (10/23/2023 2:04 PM CASE MANAGEMENT ASSOCIATE) Glucose 200(H) 70 - 105 mg/dL [facility] PROFESSOR OF HISTORICAL THEOLOGY [facility] Blood Urea Nitrogen 54(H) 7 - 25 mg/dL [facility] Creatinine 2.8(H) 0.6 - 1.2 mg/dL [facility] Sodium 134(L) 136 - 145 mEq/L [facility] Potassium 5.3(H) 3.5 - 5.1 mEq/L [facility] Chloride 108(H) 98 - 107 mEq/L [facility] Bicarbonate 19(L) 21 - 31 mEq/L [facility] Total Bilirubin 0.4 0.3 - 1.0 mg/dL [facility] Alk. Phosphatase 61 34 - 104 U/L [facility] Aspartate Aminotransferase 18 13 - 39 U/L [facility] Alanine Aminotransferase 14 7 - 52 U/L [facility] Total Protein 5.7(L) 6.4 - 8.9 g/dL [facility] Albumin 3.4(L) 3.5 - 5.7 g/dL [facility] Calcium 8.3(L) 8.6 - 10.3 mg/dL [facility] Anion Gap 12.3 7.0 - 15.0 mEq/L [facility] Globulin 2.3 2.0 - 3.5 g/dL [facility] EGFR 19(L) >60 ml/min/1. 73m2 [facility] PROFESSOR OF HISTORICAL THEOLOGY [facility] Comment: This eGFR is calculated using 2020 CKD-EPI Creatinine equation without race modifier based on the NKF-ASN task force recommendations Blood 10/23/2023 2:04 PM CASE MANAGEMENT ASSOCIATE Narrative CANCER PROFESSOR OF HISTORICAL THEOLOGY [facility] - 10/23/2023 2:46 PM CASE MANAGEMENT ASSOCIATE Release to patient->Immediate IS THE PATIENT REQUIRED TO BE FASTING FOR 8 HOURS?->No us Esther Oreilly SHRIMP PICKER, ENVELOPE MAKER CHEMISTRY ORDERAB LES Final Result CANCER PROFESSOR OF HISTORICAL THEOLOGY [facility] [address] [place] [address], documented in this encounter Visit Diagnoses Diagnosis [...] documented as of this encounter Care Teams Commercial Finance Manager Relationship Specialty Start Date End Date Jonatan Worley [address] [place] [address] PCP - General Family Medicine 07/12/20 Srinivasa Lee MD [address] [place] [id number] Consulting Physician Oncology 07/12/20 documented as of this encounter
--- OUTSIDE RECORDS SUMMARY | 2024-09-14 06:19 | XMS_ITS | Encounter Summary ---
Author Organization [facility] Address [address] [place] [address] Phone Care Team Providers Care Junior Software Engineer Name Role Phone Jonatan Worley Primary Care Provider Srinivasa Lee MD Unavailable Reason for Visit * Reason Comments Follow-up Encounter Details Date Type Department Care Team (Late st Contact Info) Description 02/19/2024 2:00 PM CDT Office Visit [facility] [address] [place] [address] Rosalina Vázquez, PHARMACEUTICAL SPECIALTY REPRESENTATIVE, PLASTER MODEL AND MOLD MAKER [address] [place] [address] Anemia in stage 3b chronic [...] on file Legal Sex Female 11: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 MD Rosalina Arriola, DNP, SENIOR JAVA J2EE DEVELOPER-/[facility] Vitals: Vitals: 02/19/24 1354 BP: [...] EYE 4 TIMES DAILY ergocalciferol (VITAMIN D) 54618 UNIT Capsule ferrous sulfate 325 (65 Fe) [...] st Contact Info) Description 10/18/2024 1:30 PM TOP PRINTING PRESS OPERATOR Office Visit [facility] [address] [place] [id number] Srinivasa Lee MD [facility] [place], [place] [id number] documented as of this encounter Results * (ABNORMAL) IMMUNOGLOBULIN IGA, IGG & IGM QUANT (02/19/2024 2:23 PM CDT) Pathologist [facility] IGG 997 635 - 1,741 mg/dL [facility] IGA 196 66 - 433 mg/dL [facility] D[facility]EL [facility]LE [facility] IGM 312(H) 45 - 281 mg/dL CANCER DIESEL PILE DRIVER OPERATOR [facility] Blood 02/19/2024 2:23 PM CDT Narrative CANC[facility] DIESEL PILE DRIVER OPERATOR [facility] - 02/20/2024 4:01 PM CDT Release to patient->Immediate us Rosalina Vázquez APRN, PLASTER MODEL AND MOLD MAKER CHEMISTRY ORDERABLE S Final Result CANCER DIESEL PILE DRIVER OPERATOR [facility] [address] [place] [address], * IMMUNOFIXATION, SERUM [place] (02/19/2024 2:23 PM CDT) IMMUNOFIXATION RESULT, SERUM COMMENT: CANCER DIESEL PILE DRIVER OPERATOR [facility] Comment: PRESENCE OF MONOCLONAL PROTEIN IS UNCLEAR AT THIS TIME. SUGGEST REPEAT IN 3 TO 6 MONTHS IF CLINICALLY INDICATED. 02/19/2024 2:23 PM CDT Narrative [facility] - 02/20/2024 3:09 PM CDT TESTING PERFORMED AT: [] [facility], [address] [place] [address], [address], PHONE: [phone], TRUCK MANAGER: PEGGY MARCUS, PHD Release to patient->Immediate Rosalina Vázquez APRN, CNP LAB SEND OUTS Fin al Result CANCER DIESEL PILE DRIVER OPERATOR [facility] [address] [place] [address], [place] [phone] * (ABNORMAL) ELECTROPHORESIS W/ TOTAL PROTEIN SERUM (02/19/2024 2:23 PM CDT) PROTEIN, TOTAL, SERUM 5.7(L) 6.0 - 8.5 G/DL CANCER DIESEL PILE DRIVER OPERATOR [facility] ALBUMIN 3.0 2.9 - 4.4 G/DL CANCER DIESEL PILE DRIVER OPERATOR [facility] [id number] 0.3 0.0 - 0.4 G/DL CANCER DIESEL PILE DRIVER OPERATOR [facility] [id number] 0.7 0.4 - 1.0 G/DL CANCER DIESEL PILE DRIVER OPERATOR [facility] BETA GLOBULIN 0.7 0.7 - 1.3 G/DL CANCER DIESEL PILE DRIVER OPERATOR [facility] GAMMA GLOBULIN 1.1 0.4 - 1.8 G/DL CANCER DIESEL PILE DRIVER OPERATOR [facility] M-SPIKE NOT OBSERVED NOT OBSERVED G/DL CANCER DIESEL PILE DRIVER OPERATOR [facility] GLOBULIN, TOTAL 2.7 2.2 - 3.9 G/DL CANCER DIESEL PILE DRIVER OPERATOR [facility] A/G RATIO 1.1 0.7 - 1.[address] SPECIALISTS [facility] PLEASE NOTE: COMMENT CANCER DIESEL PILE DRIVER OPERATOR [facility] Comment: PROTEIN ELECTROPHORESIS SCAN WILL FOLLOW VIA COMPUTER, MAIL, OR ADULT BASIC EDUCATION MANAGER DELIVERY. PDF . [facility] Blood 02/19/2024 2:23 PM CDT Narrative CANCER DIESEL PILE DRIVER OPERATOR [facility] - 02/20/2024 1:09 PM CDT TESTING PERFORMED AT: [] [facility], [address] [facility], [place], [address], PHONE: [phone], TRUCK MANAGER: PEGGY MARCUS, PHD Release to patient->Immediate Rosalina E Demattei PHARMACEUTICAL SPECIALTY REPRESENTATIVE, PLASTER MODEL AND MOLD MAKER CHEMISTRY ORDERABLE S Final Result Performing Organization Address [facility] [address] [facility] Co de Phone Number [facility] [address] [place] [address], [place] [phone] * (ABNORMAL) RETICULOCYTE COUNT (RETIC) (02/19/2024 2:23 PM CDT) Reticulocyte count 2.09(H) 0.50 - 1.70 % CANCER DIESEL PILE DRIVER OPERATOR [facility] RET-He 32.70 28.20 - 36.60 pg CANCER DIESEL PILE DRIVER OPERATOR [facility] Comment: RET-He is a direct assessment of incorporation of iron into erythrocyte hemoglobin. It provides an indirect measure of the iron available for new erythropoiesis over past 2-4 days. Blood 02/19/2024 2:23 PM CDT Narrative [facility] D[facility]EL [facility]LE [facility] - 02/19/2024 2:33 PM CDT Release to patient->Immediate Rosalina Vázquez APRN, CNP HEMATOLOGY ORDERABL ES Final Result Performing Organization Address [facility] [address]/[facility] Co de Phone Number [facility] [address] [place] [address], [place] [phone] * (ABNORMAL) IRON W/ IRON BINDING CAPACITY [place] (02/19/2024 2:23 PM CDT) IRON 49(L) 50 - 212 ug/dL [facility] UIBC 190 155 - 355 ug/dL [facility] TIBC 239(L) 261 - 478 ug/dl [facility] % Saturation 21 20 - 50 % CANCER DIESEL PILE DRIVER OPERATOR [facility] 02/19/2024 2:23 PM CDT [facility]IESEL [facility]LE [facility] - 02/19/2024 3:17 PM CDT Release to patient->Immediate us Rosalina Vázquez APRN, PLASTER MODEL AND MOLD MAKER LAB SEND OUTS Fin al Result Performing Organization Address City/[facility] [address]/ZIP Co de Phone Number CANCER DIESEL PILE DRIVER OPERATOR [facility] [place] [address] [place] [address], * FERRITIN (02/19/2024 2:23 PM CDT) Ferritin 67 11 - 307 ng/mL CANCER DIESEL PILE DRIVER OPERATOR [facility] Blood 02/19/2024 2:23 PM CDT Narrative [facility]CER DIESEL PILE DRIVER OPERATOR [facility] - 02/20/2024 3:26 PM CDT Release to patient->Immediate Rosalina Jalil Romoei PHARMACEUTICAL SPECIALTY REPRESENTATIVE, PLASTER MODEL AND MOLD MAKER CHEMISTRY ORDERABLE S Final Result CANCER DIESEL PILE DRIVER OPERATOR [facility] [address] [place] [address], * FOLIC ACID (FOLATE) (02/19/2024 2:23 PM CDT) Folate 12.98 >=5.90 ng/mL CANCER DIESEL PILE DRIVER OPERATOR [facility] Blood 02/19/2024 2:23 PM CDT Narrative CANCER DIESEL PILE DRIVER OPERATOR [facility] - 02/20/2024 3:26 PM CDT Release to patient->Immediate IS THE PATIENT REQUIRED TO BE FASTING FOR 12 HOURS?->No us Rosalina Romoei PHARMACEUTICAL SPECIALTY REPRESENTATIVE, PLASTER MODEL AND MOLD MAKER CHEMISTRY ORDERABLE S Final Result CANCER DIESEL PILE DRIVER OPERATOR [facility] [address] [place] [address], [place] [phone] * (ABNORMAL) VITAMIN B12 (02/19/2024 2:23 PM CDT) Vitamin B12 1,381(H) 180 - 914 pg/mL CANCER DIESEL PILE DRIVER OPERATOR [facility] Blood 02/19/2024 2:23 PM CDT Narrative CANCER DIESEL PILE DRIVER OPERATOR [facility] - 02/20/2024 3:26 PM CDT Release to patient->Immediate us Rosalina Vázquez APRN, CHERELLE CHEMISTRY ORDERABLE S Final Result Performing Organization Address City/[facility] [address]/ZIP Co de Phone Number CANCER DIESEL PILE DRIVER OPERATOR [facility] [address] [address], [place] [phone] * LACTATE DEHYDROGENASE (LD) (02/19/2024 2:23 PM CDT) LDH 157 140 - 271 U/L [facility] Blood 02/19/2024 2:23 PM CDT Narrative [facility] - 02/19/2024 3:17 PM CDT Release to patient->Immediate Rosalina Vázquez APRN, PLASTER MODEL AND MOLD MAKER CHEMISTRY ORDERABLE S Final Result Performing Organization Address [facility] [address]/[facility] Co de Phone Number CANCER DIESEL PILE DRIVER OPERATOR [facility] [place] [address], [place] [phone] * (ABNORMAL) CMP (COMPREHENSIVE METABOLIC PANEL) (02/19/2024 2:23 PM CDT) Glucose 245(H) 70 - 105 mg/dL [facility] Blood Urea Nitrogen 45(H) 7 - 25 mg/dL [facility] Creatinine 3.2(H) 0.6 - 1.2 mg/dL [facility] Sodium 136 136 - 145 mEq/L [facility] Potassium 5.2(H) 3.5 - 5.1 mEq/L [facility] Chloride 105 98 - 107 mEq/L [facility] Bicarbonate 23 21 - 31 mEq/L [facility] Total Bilirubin 0.5 0.3 - 1.0 mg/dL [facility] Alk. Phosphatase 53 34 - 104 U/L [facility] Aspartate Aminotransferase 18 13 - 39 U/L [facility] Alanine Aminotransferase 10 7 - 52 U/L [facility] Total Protein 5.8(L) 6.4 - 8.9 g/dL [facility] Albumin 3.4(L) 3.5 - 5.7 g/dL CANCER DIESEL PILE DRIVER OPERATOR [facility] Calcium 8.6 8.6 - 10.3 mg/dL CANCER DIESEL PILE DRIVER OPERATOR [facility] Anion Gap 13.2 7.0 - 15.0 mEq/L CANCER DIESEL PILE DRIVER OPERATOR [facility] Globulin 2.4 2.0 - 3.5 g/dL CANCER DIESEL PILE DRIVER OPERATOR [facility] EGFR 16(L) >60 ml/min/1. 73m2 CANCER DIESEL PILE DRIVER OPERATOR [facility] Comment: This eGFR is calculated using 2020 CKD-EPI Creatinine equation without race modifier based on the NKF-ASN task force recommendations Blood 02/19/2024 2:23 PM CDT Narrative CANCER DIESEL PILE DRIVER OPERATOR [facility] - 02/19/2024 3:17 PM CDT Release to patient->Immediate IS THE PATIENT REQUIRED TO BE FASTING FOR 8 HOURS?->No us Rosalina Vázquez PHARMACEUTICAL SPECIALTY REPRESENTATIVE, PLASTER MODEL AND MOLD MAKER CHEMISTRY ORDERABLE S Final Result CANCER DIESEL PILE DRIVER OPERATOR [facility] [address] [place] [address], [place] [phone] * (ABNORMAL) COMPLETE BLOOD COUNT (CBC) WITH DIFF (02/19/2024 2:23 PM CDT) WBC 5.3 4.0 - 10.0 10*3/uL CANCER DIESEL PILE DRIVER OPERATOR [facility] HGB 9.6(L) 11.2 - 15.7 g/dL CANCER DIESEL PILE DRIVER OPERATOR [facility] HCT 29.9(L) 34.1 - 44.9 % CANCER DIESEL PILE DRIVER OPERATOR [facility] PLT 160(L) 163 - 369 10*3/uL CANCER DIESEL PILE DRIVER OPERATOR [facility] MPV 10.3 9.4 - 12.4 fL CANCER DIESEL PILE DRIVER OPERATOR [facility] RBC 3.21(L) 3.93 - 5.22 10*6/uL CANCER DIESEL PILE DRIVER OPERATOR [facility] MCV 93 79 - 95 fL CANCER DIESEL PILE DRIVER OPERATOR [facility] MCH 29.9 25.6 - 32.2 pg CANCER DIESEL PILE DRIVER OPERATOR [facility] MCHC 32.1(L) 32.2 - 36.5 g/dL CANCER DIESEL PILE DRIVER OPERATOR [facility] RDW 12.5 11.6 - 14.4 % CANCER DIESEL PILE DRIVER OPERATOR [facility] Absolute Neutrophil Count 3,192 cells/uL [facility] Absolute Seg Count 3,192 1,440 - 6,600 cells/uL CANCER DIESEL PILE DRIVER OPERATOR [facility] Absolute Lymph Count 1,330 760 - 4,000 cells/uL [facility] Absolute [place] Count 426 160 - 1,200 cells/uL [facility] Absolute Eos Count 372(H) 0 - 300 cells/uL CANCER DIESEL PILE DRIVER OPERATOR [facility] Segmented Neutrophils 60 36 - 66 % CANCER DIESEL PILE DRIVER OPERATOR [facility] Lymphocytes 25 19 - 40 % [facility] Monocytes 8 4 - 12 % CANCER SUKHDEEP TER SPECIALISTS [facility] Eosinophils 7(H) 0 - 3 % [facility] WBC Estimate Normal [facility] Platelet Estimate Low CANCER DIESEL PILE DRIVER OPERATOR [facility] RBC Morphology Normal [facility] R DIESEL [facility]LE [facility] Blood 02/19/2024 2:23 PM CDT Narrative [facility] DIESEL PILE DR[facility] - 02/19/2024 3:35 PM CDT Release to patient->Immediate Rosalina Vázquez APRN, PLASTER MODEL AND MOLD MAKER HEMATOLOGY ORDERABL ES Final Result [facility] [place] [address], documented in this encounter Visit Diagnoses Diagnosis [...] documented as of this encounter Care Teams Junior Software Engineer Relationship Specialty Start Date End Date Jonatan Worley [address] [place] [address] PCP - General Family Medicine 07/12/20 Srinivasa Lee [place] [address] Consulting Physician Oncology 07/12/20 documented as of this encounter
--- OUTSIDE RECORDS SUMMARY | 2024-09-14 06:19 | XMS_ITS | Encounter Summary ---
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 Gender Identity Not on file [...] st Contact Info) Description 10/18/2024 1:30 PM TRICOT KNITTING MACHINE OPERATOR Office Visit [facility] [address] [address] Srinivasa Lee MD [address] [place] [address] [place] [address] documented as of this encounter Procedures [...] WBC 6.5 4.0 - 10.0 10*3/uL [facility] HGB 9.4(L) 11.2 - 15.7 g/dL [facility] FLEX[facility]GRAPH[facility] PRINTING MACHINIST [facility] HCT 30.2(L) 34.1 - 44.9 % [facility]GRAPH[facility] PRINTING MACHINIST [facility] PLT 177 163 - 369 10*3/uL [facility] MPV 9.2(L) 9.4 - 12.4 fL [facility]GR[facility] PR[employer]ING M[facility]IN[facility] RBC 3.40(L) 3.93 - 5.22 10*6/uL [facility] PR[employer] M[facility] MCV 89 79 - 95 fL [facility] PR[employer]ING M[facility]IN[facility] MCH 27.6 25.6 - 32.2 pg [facility]GR[employer] PRINTING MACHINIST [facility] MCHC 31.1(L) 32.2 - 36.5 g/dL [facility] RDW 15.4(H) 11.6 - 14.4 % [facility] Neutrophils % 72.1(H) 36.0 - 66.0 % [facility] Lymphocytes % 17.4(L) 19.0 - 40.0 % [facility] Monocytes % 6.2 4.1 - 12.1 % [facility] FLEXOGRAPHIC PRINTING MACHINIST [facility] Eosinophils % 3.2 0.0 - 3.5 % [facility] Basophils % 0.5 0.0 - 1.0 % [facility] Absolute Neutrophils 4.7 1.4 - 6.6 10*3/uL [facility] Absolute Lymphocytes 1.1 0.8 - 4.0 10*3/uL [facility] Absolute Monocytes 0.4 0.2 - 1.2 10*3/uL [facility] Absolute Eosinophils 0.2 0.0 - 0.4 10*3/uL [facility] Absolute Basophils 0.0 0.0 - 0.1 10*3/uL [facility] 06/17/2024 2:52 PM CDT Esther Oreilly APRN, STUDY COORDINATOR LAB SEND OUTS F inal Result [facility] [place] [address], * (ABNORMAL) CMP (COMPREHENSIVE METABOLIC PANEL) (06/17/2024 2:52 PM CDT) Glucose 227(H) 70 - 105 mg/dL [facility] Blood Urea Nitrogen 35(H) 7 - 25 mg/dL [facility] Creatinine 2.5(H) 0.6 - 1.2 mg/dL [facility] Sodium 134(L) 136 - 145 mEq/L [facility] Potassium 4.9 3.5 - 5.1 mEq/L [facility] Chloride 103 98 - 107 mEq/L [facility] Bicarbonate 20(L) 21 - 31 mEq/L [facility] Total Bilirubin 0.5 0.3 - 1.0 mg/dL [facility] Alk. Phosphatase 77 34 - 104 U/L [facility] Aspartate Aminotransferase 17 13 - 39 U/L [facility] Alanine Aminotransferase 8 7 - 52 U/L [facility] Total Protein 6.2(L) 6.4 - 8.9 g/dL [facility] Albumin 3.1(L) 3.5 - 5.7 g/dL [facility] Calcium 8.6 8.6 - 10.3 mg/dL [facility] Anion Gap 15.9(H) 7.0 - 15.0 mEq/L [facility] Globulin 3.1 2.0 - 3.5 g/dL [facility] EGFR 21(L) >60 ml/min/1. 73m2 [facility] Comment: This eGFR is calculated using 2020 CKD-EPI Creatinine equation without race modifier based on the NKF-ASN task force recommendations Blood 06/17/2024 2:52 PM CDT [facility] - 06/17/2024 3:35 PM CDT Release to patient->Immediate IS THE PATIENT REQUIRED TO BE FASTING FOR 8 HOURS?->No Esther Oreilly APRN, STUDY COORDINATOR CHEMISTRY ORDERAB LES Final Result [facility]GR[employer] PRINTING MACHINIST [facility] [place] [address], * LACTATE DEHYDROGENASE (LD) (06/17/2024 2:52 PM CDT) LDH 183 140 - 271 U/L [facility] Blood 06/17/2024 2:52 PM CDT Narrative [facility] - 06/17/2024 3:35 PM CDT Release to patient->Immediate Esther Oreilly LONG TERM, STUDY COORDINATOR CHEMISTRY ORDERAB LES Final Result [facility] Cancer Care [address] [place] [address], * (ABNORMAL) VITAMIN B12 (06/17/2024 2:52 PM CDT) Vitamin B12 1,009(H) 180 - 914 pg/mL [facility] Blood 06/17/2024 2:52 PM CDT Narrative [facility] - 06/21/2024 7:57 AM CDT Release to patient->Immediate Esther Oreilly LONG TERM, STUDY COORDINATOR CHEMISTRY ORDERAB LES Final Result Performing Organization Address [facility]/ZIP Co de Phone Number [facility] Cancer Care [address] [place] [address], * FOLIC ACID (FOLATE) (06/17/2024 2:52 PM CDT) Folate 8.45 >=5.90 ng/mL [facility] Blood 06/17/2024 2:52 PM CDT [facility] - 06/21/2024 7:57 AM CDT Release to patient->Immediate IS THE PATIENT REQUIRED TO BE FASTING FOR 12 HOURS?->No Esther Oreilly LONG TERM, STUDY COORDINATOR CHEMISTRY ORDERAB LES Final Result [facility] Cancer Care [address] [place] [address], * FERRITIN (06/17/2024 2:52 PM CDT) Ferritin 126 11 - 307 ng/mL [facility] Blood 06/17/2024 2:52 PM CDT [facility] - 06/21/2024 7:57 AM CDT Release to patient->Immediate Esther Oreilly APRN, CNP CHEMISTRY ORDERAB LES Final Result Performing Organization Address [facility] Co de Phone Number CANCER FLEXOGRAPHIC PRINTING MACHINIST [facility] [address] [place] [address], * (ABNORMAL) IRON W/ IRON BINDING CAPACITY [place] (06/17/2024 2:52 PM CDT) IRON 25(L) 50 - 212 ug/dL [facility] UIBC 194 155 - 355 ug/dL [facility] TIBC 219(L) 261 - 478 ug/dl [facility] % Saturation 11(L) 20 - 50 % [facility]GRAPH[facility] PRINTING MACHINIST [facility] 06/17/2024 2:52 PM CDT [facility] - 06/17/2024 3:35 PM CDT Release to patient->Immediate Esther Oreilly APRN, CNP LAB SEND OUTS F inal Result Performing Organization Address [facility]/ZIP Co de Phone Number [facility] [place] [place] [address], * RETICULOCYTE COUNT (RETIC) (06/17/2024 2:52 PM CDT) Reticulocyte count 1.70 0.50 - 1.70 % [facility] RET-He 29.80 28.20 - 36.60 pg [facility]GRAPH[facility] PR[employer]ING M[facility]INIST [facility] Comment: RET-He is a direct assessment of incorporation of iron into erythrocyte hemoglobin. It provides an indirect measure of the iron available for new erythropoiesis over past 2-4 days. Blood 06/17/2024 2:52 PM CDT [facility] - 06/17/2024 3:03 PM CDT Release to patient->Immediate Esther Oreilly APRN, STUDY COORDINATOR HEMATOLOGY ORDERA BLES Final Result [facility] FLEXOGRAPHIC PRINTING MACHINIST [facility] [place] [address] [place] [address], [place] [phone] * (ABNORMAL) IMMUNOGLOBULIN IGA, IGG & IGM QUANT (06/17/2024 2:52 PM CDT) IGG 1,383 635 - 1,741 mg/dL [facility] IGA 217 66 - 433 mg/dL [facility] IGM 462(H) 45 - 281 mg/dL [facility] Blood 06/17/2024 2:52 PM CDT Narrative [facility] - 06/18/2024 1:11 PM CDT Release to patient->Immediate Esther Oreilly APRN, STUDY COORDINATOR CHEMISTRY ORDERAB LES Final Result Performing Organization Address City/[facility]/ZIP Co de Phone Number [facility]CER FLEXOGRAPHIC PRINTING MACHINIST [facility] Cancer Care [facility] [address] [place] [address], [place] [phone] * (ABNORMAL) ELECTROPHORESIS W/ TOTAL PROTEIN SERUM (06/17/2024 2:52 PM CDT) PROTEIN, TOTAL, SERUM 6.1 6.0 - 8.5 G/DL [facility] ALBUMIN 2.7(L) 2.9 - 4.4 G/DL [facility] FLEXOGRAPHIC PRINTING MACHINIST [facility] [id number] 0.3 0.0 - 0.4 G/DL [facility] FLEXOGRAPHIC PRINTING MACHINIST [facility] [id number] 0.8 0.4 - 1.0 G/DL [facility] FLEXOGRAPHIC PRINTING MACHINIST [facility] BETA GLOBULIN 0.8 0.7 - 1.3 G/DL [facility] FLEXOGRAPHIC PRINTING MACHINIST [facility] GAMMA GLOBULIN 1.5 0.4 - 1.8 G/DL [facility] FLEXOGRAPHIC PRINTING MACHINIST [facility] M-SPIKE NOT OBSERVED NOT OBSERVED G/DL [facility] FLEXOGRAPHIC PRINTING MACHINIST [facility] GLOBULIN, TOTAL 3.4 2.2 - 3.9 G/DL [facility] A/G RATIO 0.8 0.7 - 1.7 [facility] TER SPECIALISTS [facility] PLEASE NOTE: COMMENT [facility] FLEXOGRAPHIC PRINTING MACHINIST [facility] Comment: PROTEIN ELECTROPHORESIS SCAN WILL FOLLOW VIA COMPUTER, MAIL, OR CREDIT ADVISOR DELIVERY. PDF . [facility] Blood 06/17/2024 2:52 PM CDT Narrative [facility] - 06/18/2024 3:10 PM CDT TESTING PERFORMED AT: [CB] [facility], [address] [place] [address], [address], PHONE: [phone], WILDLIFE CONSERVATION OFFICER: PEGGY MARCUS, PHD Release to patient->Immediate Esther Oreilly APRN, STUDY COORDINATOR CHEMISTRY ORDERAB LES Final Result Performing Organization Address [facility] Co de Phone Number CANCER FLEXOGRAPHIC PRINTING MACHINIST [facility] [place] [address], [place] [phone] * IMMUNOFIXATION, SERUM [place] (06/17/2024 2:52 PM CDT) IMMUNOFIXATION RESULT, SERUM COMMENT [facility] Comment:NO MONOCLONALITY DET ECTED. 06/17/2024 2:52 PM CDT Narrative [facility] - 06/18/2024 3:10 PM CDT TESTING PERFORMED AT: [CB] [facility], [address] [place] [address], [address], PHONE: [phone], WILDLIFE CONSERVATION OFFICER: PEGGY MARCUS, PHD Release to patient->Immediate Esther Oreilly APRN, STUDY COORDINATOR LAB SEND OUTS F inal Result Performing Organization Address [facility]/ZIP Co de Phone Number [facility] [place] [address], [place] [phone] * (ABNORMAL) SERUM FREE LIGHT CHAINS, [place] (06/17/2024 2:52 PM CDT) FREE KAPPA LT CHAINS 189.1(H) 2.9 - 20.7 mg/L [facility] FREE LAMBDA LT CHAINS 167.5(H) 4.2 - 27.6 mg/L [facility] KAPPA/LAMBDA RATIO 1.13 0.22 - 1.74 [facility] 06/17/2024 2:52 PM CDT Narrative [facility] - 06/18/2024 1:11 PM CDT Release to patient->Immediate us Esther Oreilly APRN, STUDY COORDINATOR LAB SEND OUTS F inal Result CANCER FLEXOGRAPHIC PRINTING MACHINIST [facility] [place] [address], documented in this encounter Visit Diagnoses Diagnosis Hypogammaglobulinemia (HCC) Hypogammaglobulinaemia, unspecified 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) Iron deficiency Other disorders of iron metabolism documented in this encounter Additional Health Concerns Assessment Noted Time PHQ-9 Depression Total Score: 0 03/08/20 21 11:06 AM CDT documented as of this encounter Care Teams Research Geneticist Relationship Specialty Start Date End Date Jonatan Worley [address] [place] [address] PCP - General Family Medicine 07/12/20 Srinivasa Lee MD [address] [place] [id number] Consulting Physician Oncology 07/12/20 documented as of this encounter
--- OUTSIDE RECORDS SUMMARY | 2024-09-14 06:19 | XMS_ITS | Encounter Summary ---
Author Organization [facility] Address [address] [place] [address] Phone Care Team Providers Care Aerial Photogrammetrist Name Role Phone Jonatan Worley Primary Care Provider Srinivasa Lee MD Unavailable [phone] Reason for Visit * Reason Comments Follow-up Encounter Details Date Type Department Care Team (Latest Contact Info) Description 06/17/2024 2:00 PM CDT Office Visit [facility] [address] [place] [address] Esther Oreilly, TEAM OTR TRUCK DRIVER, WIRE DRAWING MACHINE TENDER [address] [place] [address] Hypogammaglobulinemia (HCC) (Primary Dx); Anemia in stage [...] on file Legal Sex Female 11:51 AM TAXICAB DRIVER Gender Identity Not on file Sexual Orientation [...] : 1960 [facility] En[facility] Date: 06/17/2024 Care Team: Current Providers PCP: Jonatan Worley Care Team Provider: Srinivasa Lee MD Encounter Provider: Esther Rojas APRN, WIRE DRAWING MACHINE TENDER Referring Provider: not found Nurse Practitioner: Esther Rojas APRN, WIRE DRAWING MACHINE TENDER HISTORY OF PRESENT ILLNESS: Ms. Arely Ernandez [...] EPO. Patient will continue following with her Dinkey Engine Operator. I will have the patient return [...] per Care Everywhere. MD Esther Arriola, DNP, ENTERPRISE DATA ARCHITECT- Vitals: Vitals: 06/17/24 1412 BP: 130/72 BP [...] EYE 4 TIMES DAILY ergocalciferol (VITAMIN D) 67244 UNIT Capsule ferrous sulfate 325 (65 Fe) [...] 1,330 760 - 4,000 cells/uL Final Absolute [place] Count 02/19/2024 426 160 - 1,200 cells/uL [...] 02/19/2024 3.0 2.9 - 4.4 G/DL Final UZVXU-1-NTRCSEHQ 02/19/2024 0.3 0.0 - 0.4 G/DL Final CCSSP-4-MMADBACS 02/19/2024 0.7 0.4 - 1.0 G/DL Final [...] SCAN WILL FOLLOW VIA COMPUTER, MAIL, OR DRAWING OPERATOR DELIVERY. PDF 02/19/2024 . Final IMMUNOFIXATION RESULT, [...] st Contact Info) Description 10/18/2024 1:30 PM TAXICAB DRIVER Office Visit [facility] [address] [address] Srinivasa Lee MD [address] [place] [address] documented as of this encounter Results * (ABNORMAL) SERUM FREE LIGHT CHAINS, [place] (06/17/2024 2:52 PM CDT) FREE KAPPA LT CHAINS 189.1(H) 2.9 - 20.7 mg/L [facility] FREE LAMBDA LT CHAINS 167.5(H) 4.2 - 27.6 mg/L [facility] KAPPA/LAMBDA RATIO 1.13 0.22 - 1.74 [facility] 06/17/2024 2:52 PM CDT Narrative [facility] - 06/18/2024 1:11 PM CDT Release to patient->Immediate Esther Oreilly APRN, WIRE DRAWING MACHINE TENDER LAB SEND OUTS F inal Result Performing Organization Address [facility] [[email or web address]] Co de Phone Number [facility] [place] [place] [address], [place] [phone] * IMMUNOFIXATION, SERUM [place] (06/17/2024 2:52 PM CDT) IMMUNOFIXATION RESULT, SERUM COMMENT [facility] Comment:NO MONOCLONALITY DET ECTED. 06/17/2024 2:52 PM CDT Narrative [facility] - 06/18/2024 3:10 PM CDT TESTING PERFORMED AT: [] [facility], [address] [place] [address], [address], PHONE: [phone], CONTINUOUS VULCANIZING MACHINE OPERATOR: PEGGY MARCUS, PHD Release to patient->Immediate Esther Oreilly APRN, WIRE DRAWING MACHINE TENDER LAB SEND OUTS F inal Result Performing Organization Address [facility] [[email or web address]] Co de Phone Number [facility] [place] [address], [place] [phone] * (ABNORMAL) ELECTROPHORESIS W/ TOTAL PROTEIN SERUM (06/17/2024 2:52 PM CDT) PROTEIN, TOTAL, SERUM 6.1 6.0 - 8.5 G/DL [facility] ALBUMIN 2.7(L) 2.9 - 4.4 G/DL [facility] IAYDU-3-IUPCRGLY 0.3 0.0 - 0.4 G/DL [facility] JXFBK-4-UTVDSHAM 0.8 0.4 - 1.0 G/DL [facility] BETA GLOBULIN 0.8 0.7 - 1.3 G/DL [facility] GAMMA GLOBULIN 1.5 0.4 - 1.8 G/DL [facility] M-SPIKE NOT OBSERVED NOT OBSERVED G/DL [facility] GLOBULIN, TOTAL 3.4 2.2 - 3.9 G/DL [facility] A/G RATIO 0.8 0.7 - 1.7 [facility] TER SPECIALISTS [facility] PLEASE NOTE: COMMENT [facility] STATE EPIDEMIOLOGIST [facility] Comment: PROTEIN ELECTROPHORESIS SCAN WILL FOLLOW VIA COMPUTER, MAIL, OR DRAWING OPERATOR DELIVERY. PDF . [facility] Blood 06/17/2024 2:52 PM CDT Narrative [facility] - 06/18/2024 3:10 PM CDT TESTING PERFORMED AT: [] [address], [address], PHONE: [phone], CONTINUOUS VULCANIZING MACHINE OPERATOR: PEGGY MARCUS, PHD Release to patient->Immediate us Esther Oreilly APRN, WIRE DRAWING MACHINE TENDER CHEMISTRY ORDERAB LES Final Result [facility] [address] [place] [address], * (ABNORMAL) IMMUNOGLOBULIN IGA, IGG & IGM QUANT (06/17/2024 2:52 PM CDT) IGG 1,383 635 - 1,741 mg/dL [facility] IGA 217 66 - 433 mg/dL [facility] IGM 462(H) 45 - 281 mg/dL [facility] Blood 06/17/2024 2:52 PM CDT [facility] - 06/18/2024 1:11 PM CDT Release to patient->Immediate Esther Oreilly APRN, CNP CHEMISTRY ORDERAB LES Final Result Performing Organization Address [facility] [[email or web address]] Co de Phone Number [facility] [address] [place] [address], * RETICULOCYTE COUNT (RETIC) (06/17/2024 2:52 PM CDT) Reticulocyte count 1.70 0.50 - 1.70 % [facility] RET-He 29.80 28.20 - 36.60 pg [facility] Comment: RET-He is a direct assessment of incorporation of iron into erythrocyte hemoglobin. It provides an indirect measure of the iron available for new erythropoiesis over past 2-4 days. Blood 06/17/2024 2:52 PM CDT [facility] - 06/17/2024 3:03 PM CDT Release to patient->Immediate Esther Oreilly APRN, CHERELLE HEMATOLOGY ORDERA BLES Final Result Performing Organization Address [facility] de Phone Number [facility] [address] [place] [address], * (ABNORMAL) IRON W/ IRON BINDING CAPACITY [place] (06/17/2024 2:52 PM CDT) IRON 25(L) 50 - 212 ug/dL [facility] UIBC 194 155 - 355 ug/dL [facility] TIBC 219(L) 261 - 478 ug/dl [facility] % Saturation 11(L) 20 - 50 % [facility] 06/17/2024 2:52 PM CDT [facility] - 06/17/2024 3:35 PM CDT Release to patient->Immediate Esther Oreilly APRN, WIRE DRAWING MACHINE TENDER LAB SEND OUTS F inal Result Performing Organization Address [facility]/ZIP Co de Phone Number [facility] Cancer Care [address] [place] [address], [place] [phone] * FERRITIN (06/17/2024 2:52 PM CDT) Ferritin 126 11 - 307 ng/mL [facility] Blood 06/17/2024 2:52 PM CDT [facility] - 06/21/2024 7:57 AM CDT Release to patient->Immediate Esther Oreilly APRN, WIRE DRAWING MACHINE TENDER CHEMISTRY ORDERAB LES Final Result Performing Organization Address [facility] [[email or web address]] Co de Phone Number [facility] [place] [address], [place] [phone] * FOLIC ACID (FOLATE) (06/17/2024 2:52 PM CDT) Folate 8.45 >=5.90 ng/mL [facility] Blood 06/17/2024 2:52 PM CDT [facility] - 06/21/2024 7:57 AM CDT Release to patient->Immediate IS THE PATIENT REQUIRED TO BE FASTING FOR 12 HOURS?->No Esther Oreilly APRN, WIRE DRAWING MACHINE TENDER CHEMISTRY ORDERAB LES Final Result Performing Organization Address [facility] [[email or web address]] Co de Phone Number [facility] [place] [address], * (ABNORMAL) VITAMIN B12 (06/17/2024 2:52 PM CDT) Vitamin B12 1,009(H) 180 - 914 pg/mL [facility] Blood 06/17/2024 2:52 PM CDT Narrative [facility] - 06/21/2024 7:57 AM CDT Release to patient->Immediate Esther Oreilly APRN, WIRE DRAWING MACHINE TENDER CHEMISTRY ORDERAB LES Final Result [facility] [place] [address], * LACTATE DEHYDROGENASE (LD) (06/17/2024 2:52 PM CDT) LDH 183 140 - 271 U/L [facility] Blood 06/17/2024 2:52 PM CDT Narrative [facility] - 06/17/2024 3:35 PM CDT Release to patient->Immediate Esther Oreilly TEAM OTR TRUCK DRIVER, WIRE DRAWING MACHINE TENDER CHEMISTRY ORDERAB LES Final Result Performing Organization Address City/[facility]/ZIP Co de Phone Number [facility] [address], * (ABNORMAL) CMP (COMPREHENSIVE METABOLIC PANEL) (06/17/2024 2:52 PM CDT) Glucose 227(H) 70 - 105 mg/dL [facility] Blood Urea Nitrogen 35(H) 7 - 25 mg/dL [facility] Creatinine 2.5(H) 0.6 - 1.2 mg/dL [facility] Sodium 134(L) 136 - 145 mEq/L [facility] Potassium 4.9 3.5 - 5.1 mEq/L [facility] Chloride 103 98 - 107 mEq/L [facility] Bicarbonate 20(L) 21 - 31 mEq/L [facility] Total Bilirubin 0.5 0.3 - 1.0 mg/dL [facility] Alk. Phosphatase 77 34 - 104 U/L [facility] Aspartate Aminotransferase 17 13 - 39 U/L [facility] Alanine Aminotransferase 8 7 - 52 U/L [facility] Total Protein 6.2(L) 6.4 - 8.9 g/dL [facility] Albumin 3.1(L) 3.5 - 5.7 g/dL [facility] Calcium 8.6 8.6 - 10.3 mg/dL [facility] Anion Gap 15.9(H) 7.0 - 15.0 mEq/L [facility] Globulin 3.1 2.0 - 3.5 g/dL [facility] EGFR 21(L) >60 ml/min/1. 73m2 [facility] Comment: This eGFR is calculated using 2020 CKD-EPI Creatinine equation without race modifier based on the NKF-ASN task force recommendations Blood 06/17/2024 2:52 PM CDT Narrative [facility] - 06/17/2024 3:35 PM CDT Release to patient->Immediate IS THE PATIENT REQUIRED TO BE FASTING FOR 8 HOURS?->No us Esther Oreilly APRN, CHERELLE CHEMISTRY ORDERAB LES Final Result [facility] [address] [place] [address], documented in this encounter Visit Diagnoses Diagnosis [...] documented as of this encounter Care Teams Aerial Photogrammetrist Relationship Specialty Start Date End Date Jonatan Worley [address] [place] [address] PCP - General Family Medicine 07/12/20 Srinivasa Lee MD [address] [place] [address] Consulting Physician Oncology 07/12/20 documented as of this encounter
--- OUTSIDE RECORDS SUMMARY | 2024-09-14 06:19 | XMS_ITS | Encounter Summary ---
Author Organization [employer] Care Team Providers Care Bridge Gang Worker Name Role Phone Meir Jonatan Primary Care Provider [phone] Srinivasa Lee MD Unavailable [phone] Encounter Details Date Type Department Care Team [...] on file Legal Sex Female 11:51 AM CAKE INSPECTOR Gender Identity Not on file Sexual [...] st Contact Info) Description 10/18/2024 1:30 PM CAKE INSPECTOR Office Visit [facility] [place] [address] [place] [address] Srinivasa Lee MD [address] [facility] [address] [place] [address] documented as of this encounter Visit Diagnoses Not on filedocumented in this encounter Additional Health Concerns Assessment Noted Time PHQ-9 Depression Total Score: 0 03/08/20 11:06 AM CDT documented as of this encounter Care Teams Bridge Gang Worker Relationship Specialty Start Date End Date Jonatan Worley [address] [place] [address] PCP - General Family Medicine 07/12/20 Srinivasa Lee MD [address] [place] [phone] Consulting Physician Oncology 07/12/20 documented as of this encounter
--- OUTSIDE RECORDS SUMMARY | 2024-09-14 06:19 | XMS_ITS | Encounter Summary ---
Author Organization [facility] Address [address] [place] [address] Phone Care Team Providers Care Distance Learning Unit Leader Name Role Phone Jonatan Worley Primary Care Provider Srinivasa Lee MD Unavailable [phone] Encounter Details Date Type Department Care Team (Late st Contact Info) Description 02/19/2024 Telephone [facility] [address] [place] [address] Rosalina Vázquez, WHOLESALE PARTS SALESPERSON, BUFF WHEEL FABRICATOR [address] [place] [address] Social History Tobacco Use Types [...] on file Legal Sex Female 11:51 AM LENS GRINDER Gender Identity Not on file Sexual Orientation Not on file documented as of this encounter Functional Status * Question Answer Date of Assessment Author Little interest or pleasure in doing things Not at all 02/19/2024 1:54 PM Jatin Nunez, CHARGE PREPARATION TECHNICIAN Feeling down, depressed, or hopeless Not at all 02/19/2024 1:54 PM CDT Deyanira Napier CMA * Over the past 2 weeks, how often have you been bothered by any of the following problems? Question Answer Date of Assessment Author Patient Health Questionnaire-2 Score 0 02/19/2024 1:54 PM CDT Tereaz Napier CMA documented as of this encounter Miscellaneous Notes * Telephone Encounter - Mayra Nunes RN - 02/19/2024 4:12 PM CDT CMP results faxed to nephrology. * Telephone Encounter - Mayra Nunes RN - 02/19/2024 4:09 PM CDT ----- Message from Rosalina Vázquez APRN, CNP sent at 02/19/2024 3:55 PM CDT ----- Please fax CMP results to property developer, thanks! documented in this encounter Plan of Treatment Upcoming Encounters Date Type Department Care Team (Late st Contact Info) Description 10/18/2024 1:30 PM LENS GRINDER Office Visit [facility] [address] [place] [address] Srinivasa Lee MD [address] [place] [address] documented as of this encounter Visit Diagnoses Not on filedocumented in this encounter Additional Health Concerns Assessment Noted Time PHQ-9 Depression Total Score: 0 03/08/20 21 11:06 AM CDT documented as of this encounter Care Teams Distance Learning Unit Leader Relationship Specialty Start Date End Date Jonatan Worley [address] [place] [address] PCP - General Family Medicine 07/12/20 Srinivasa Lee MD [address] [place] [phone] Consulting Physician Oncology 07/12/20 documented as of this encounter
--- OUTSIDE RECORDS SUMMARY | 2024-09-14 06:19 | XMS_ITS | Encounter Summary ---
Author Organization [employer] Care Team Providers Care Commercial Service Technician Name Role Phone Jonatan Worley Primary Care Provider [phone] Srinivasa Lee MD Unavailable [phone] Encounter Details Date Type Department Care Team [...] on file Legal Sex Female 11:51 AM RAW SHELLFISH PREPARER Gender Identity Not on file Sexual [...] st Contact Info) Description 10/18/2024 1:30 PM RAW SHELLFISH PREPARER Office Visit [facility] [place] [address] [place] [address] Srinivasa Lee MD [address] [facility] [address] [place] [address] documented as of this encounter Visit Diagnoses Not on filedocumented in this encounter Additional Health Concerns Assessment Noted Time PHQ-9 Depression Total Score: 0 03/08/20 21 11:06 AM CDT documented as of this encounter Care Teams Commercial Service Technician Relationship Specialty Start Date End Date Jonatan Worley [address] [place] [address] PCP - General Family Medicine 07/12/20 Srinivasa Lee MD [address] [place] [phone] Consulting Physician Oncology 07/12/20 documented as of this encounter
--- OUTSIDE RECORDS SUMMARY | 2024-09-14 06:19 | XMS_ITS | Encounter Summary ---
Author Organization [facility] Address [address] [place] [address] Phone Care Team Providers Care Change Over Name Role Phone Jonatan Worley Primary Care Provider Srinivasa Lee MD Unavailable [phone] Encounter Details Date Type Department Care Team (Late st Contact Info) Description 10/27/2023 Telephone [facility] [place] [place] [address] [place] [address] Srinivasa Lee MD [facility] [address] [address] Social History Tobacco Use Types [...] on file Legal Sex Female 11:51 AM TURF FARMER Gender Identity Not on file Sexual Orientation Not on file documented as of this encounter Miscellaneous Notes * Telephone Encounter - Shonna Roman LPN - 10/27/2023 11:00 AM TURF FARMER Copy of lab results faxed to Kizzy Delgado LINEN CHECKER with [facility] asrequested. FARMER * Telephone Encounter - Shonna Roman LPN - 10/27/2023 11:00 AM TURF FARMER ----- Message from Esther Rojas APRN, CNP sent at 10/24/2023 2:25 PM TURF FARMER ----- Please send a copy of patient's CMP over to her Flavor Room Worker. FARMER * Telephone Encounter - Shonna Roman LPN - 10/27/2023 10:56 AM TURF FARMER ----- Message from Esther Rojas APRN, CNP sent at 10/24/2023 2:25 PM TURF FARMER ----- Please send a copy of patient's CMP over to her Flavor Room Worker. FARMER documented in this encounter Plan of Treatment Upcoming Encounters Date Type Department Care Team (Late st Contact Info) Description 10/18/2024 1:30 PM TURF FARMER Office Visit [facility] [address] [place] [address] Srinivasa Lee MD [address] [place] [address] documented as of this encounter Visit Diagnoses Not on filedocumented in this encounter Additional Health Concerns Assessment Noted Time PHQ-9 Depression Total Score: 0 03/08/20 21 11:06 AM CDT documented as of this encounter Care Teams Change Over Relationship Specialty Start Date End Date Jonatan Worley [address] [place] [address] PCP - General Family Medicine 07/12/20 Srinivasa Lee MD [address] [place] [phone] Consulting Physician Oncology 07/12/20 documented as of this encounter
--- OUTSIDE RECORDS SUMMARY | 2024-09-14 06:19 | XMS_ITS | Encounter Summary ---
Author Organization [employer] Care Team Providers Care Ammonium Nitrate Neutralizer Name Role Phone Jonatan Worley Primary Care Provider [phone] Srinivasa Lee MD Unavailable [phone] Encounter Details Date Type Department Care Team [...] on file Legal Sex Female 11:51 AM SIZE WORKER Gender Identity Not on file Sexual [...] st Contact Info) Description 10/18/2024 1:30 PM SIZE WORKER Office Visit [facility] [place] [address] [place] [phone] Srinivasa Lee MD [address] [facility] [facility] [address] [address] [place] [address] documented as of this encounter Visit Diagnoses Not on filedocumented in this encounter Additional Health Concerns Assessment Noted Time PHQ-9 Depression Total Score: 0 03/08/20 21 11:06 AM CDT documented as of this encounter Care Teams Ammonium Nitrate Neutralizer Relationship Specialty Start Date End Date Jonatan Worley [address] [place] [address] PCP - General Family Medicine 07/12/20 Srinivasa Lee MD [address] [place] [phone] Consulting Physician Oncology 07/12/20 documented as of this encounter
--- OUTSIDE RECORDS SUMMARY | 2024-09-14 06:19 | XMS_ITS | Encounter Summary ---
Author Organization [facility] Address [address] [place] [address] Phone Care Team Providers Care Fleet Dispatch Manager Name Role Phone Jonatan Worley Primary Care Provider Srinivasa Lee MD Unavailable Reason for Visit * Reason Onset Date Comments Medication Refill 07/23/2023 Encounter Details Date Type Department Care Team (Late st Contact Info) Description 07/23/2023 Refill [facility] [address] [address] Srinivasa Lee MD [address] [address] Medication Refill Social History Tobacco [...] on file Legal Sex Female 11:51 AM DESULFURIZER OPERATOR Gender Identity Not on file Sexual Orientation Not on file documented as of this encounter Miscellaneous Notes * Telephone Encounter - Diana Maldonado RN - 07/23/2023 11:17 AM CST Refill request from pharmacy and patient Please fill if appropriate. LFURIZER OPERATOR documented in this encounter Plan of Treatment Upcoming Encounters Date Type Department Care Team (Late st Contact Info) Description 10/18/2024 1:30 PM DESULFURIZER OPERATOR Office Visit [facility] [place] [address] [place] [phone] Srinivasa Lee MD [address] [place], [place] [address] documented as of this encounter Visit Diagnoses Not on filedocumented in this encounter Additional Health Concerns Assessment Noted Time PHQ-9 Depression Total Score: 0 03/08/20 21 11:06 AM CDT documented as of this encounter Care Teams Fleet Dispatch Manager Relationship Specialty Start Date End Date Jonatan Worley [address] [place] [address] PCP - General Family Medicine 07/12/20 Srinivasa Lee MD [address] [place] [phone] Consulting Physician Oncology 07/12/20 documented as of this encounter
--- OUTSIDE RECORDS SUMMARY | 2024-09-14 06:20 | XMS_ITS | Encounter Summary ---
Author Organization [employer] Care Team Providers Care Stainless Steel Finisher Name Role Phone Jonatan Worley Primary Care Provider [phone] Srinivasa Lee MD Unavailable [phone] Encounter Details Date Type Department Care Team [...] on file Legal Sex Female 11:51 AM TANK FILLER Gender Identity Not on file Sexual Orientation Not on file COVID-19 Exposure Response Date Recorded In the last month, have you been in contact with someone who was confirmed or suspected to have Coronavirus / COVID-19? No / Unsure 09/08/2020 11:10 AM TANK FILLER documented as of this encounter Plan of Treatment Upcoming Encounters Date Type Department Care Team (Late st Contact Info) Description 10/18/2024 1:30 PM TANK FILLER Office Visit [facility] [address] [address] Srinivasa Lee MD [address] [address] documented as of this encounter Visit Diagnoses Not on filedocumented in this encounter Additional Health Concerns Assessment Noted Time PHQ-9 Depression Total Score: 0 09/08/19 21 11:26 AM TANK FILLER documented as of this encounter Care Teams Stainless Steel Finisher Relationship Specialty Start Date End Date Jonatan Worley [address] [place] [address] PCP - General Family Medicine 07/12/20 Srinivasa Lee MD [address] [place] [phone] Consulting Physician Oncology 07/12/20 documented as of this encounter
--- OUTSIDE RECORDS SUMMARY | 2024-09-14 06:20 | XMS_ITS | Encounter Summary ---
Author Organization [employer] Care Team Providers Care Floor Hand Name Role Phone Jonatan Worley Primary Care Provider [phone] Srinivasa Lee MD Unavailable Encounter Details Date [...] on file Legal Sex Female 11:51 AM ICING MAKER Gender Identity Not on file Sexual Orientation Not on file COVID-19 Exposure Response Date Recorded In the last month, have you been in contact with someone who was confirmed or suspected to have Coronavirus / COVID-19? No / Unsure 07/28/2020 10:59 AM ICING MAKER documented as of this encounter Plan of Treatment Upcoming Encounters Date Type Department Care Team (Late st Contact Info) Description 10/18/2024 1:30 PM ICING MAKER Office Visit [facility] [address] [address] Srinivasa Lee MD [address] [place] [address] [place] [id number] documented as of this encounter Visit Diagnoses Not on filedocumented in this encounter Additional Health Concerns Assessment Noted Time PHQ-9 Depression Total Score: 0 07/28/20 20 11:51 AM ICING MAKER documented as of this encounter Care Teams Floor Hand Relationship Specialty Start Date End Date Jonatan Worley [address] [place] [address] PCP - General Family Medicine 07/12/20 Srinivasa Lee MD [address] [place] [address] Consulting Physician Oncology 07/12/20 documented as of this encounter
--- OUTSIDE RECORDS SUMMARY | 2024-09-14 06:20 | XMS_ITS | Encounter Summary ---
Author Organization [employer] Care Team Providers Care Test Fixture Assembler Name Role Phone Meir Jonatan Primary Care Provider [phone] Srinivasa Lee MD Unavailable [phone] Encounter Details Date Type Department Care Team [...] on file Legal Sex Female 11:51 AM HABILITATION TRAINING SPECIALIST Gender Identity Not on file Sexual [...] st Contact Info) Description 10/18/2024 1:30 PM HABILITATION TRAINING SPECIALIST Office Visit [facility] [place] [address] [place] [phone] Srinivasa Lee MD [address] [facility] [facility] [address] [place] [address] documented as of this encounter Visit Diagnoses Not on filedocumented in this encounter Additional Health Concerns Assessment Noted Time PHQ-9 Depression Total Score: 0 03/08/20 21 11:06 AM CDT documented as of this encounter Care Teams Test Fixture Assembler Relationship Specialty Start Date End Date Jonatan Worley [address] [place] [address] PCP - General Family Medicine 07/12/20 Srinivasa Lee MD [address] [place] [phone] Consulting Physician Oncology 07/12/20 documented as of this encounter
--- OUTSIDE RECORDS SUMMARY | 2024-09-14 06:20 | XMS_ITS | Encounter Summary ---
Author Organization [facility] Address [address] [place] [address] Phone Care Team Providers Care Private Inquiry Agent Name Role Phone Jonatan Worley Primary Care Provider Srinivasa Lee MD Unavailable [phone] Encounter Details Date Type Department Care Team (Latest Contact Info) Description 03/15/2022 9:20 AM CDT Lab [facility] [address] [address] Lab, Cc [facility] [place] Hypogammaglobulinemia (HCC); Anemia of unknown etiology [...] on file Legal Sex Female 11:51 AM JUICE PACKAGING MACHINES SETTER Gender Identity Not on file Sexual Orientation [...] st Contact Info) Description 10/18/2024 1:30 PM JUICE PACKAGING MACHINES SETTER Office Visit [facility] [place] [address] [place] [address] Srinivasa Lee MD [address] [place], [place] [phone] documented as of this encounter Procedures Procedure [...] 4.0 - 10.0 10*3/uL [facility] HGB 10.4(L) 11.2 - 15.7 g/dL [facility] HCT 30.5(L) 34.1 - 44.9 % [facility] PLT 186 163 - 369 10*3/uL [facility] MPV 10.9 9.4 - 12.4 fL [facility] RBC 3.47(L) 3.93 - 5.22 10*6/uL [facility] MCV 88 79 - 95 fL [facility] MCH 30.0 25.6 - 32.2 pg [facility] MCHC 34.1 32.2 - 36.5 g/dL [facility] RDW 12.6 11.6 - 14.4 % [facility] Absolute Neutrophil Count 4,982 cells/uL [facility] Absolute Seg Count 4,982 1,440 - 6,600 cells/uL [facility] Absolute Lymph Count 1,923 760 - 4,000 cells/uL [facility] Absolute [place] Count 1,049 160 - 1,200 cells/uL [facility] Absolute Eos Count 699(H) 0 - 300 cells/uL [facility] Absolute Baso Count 87 0 - 100 cells/uL [facility] Segmented Neutrophils 57 36 - 66 % [facility] Lymphocytes 22 19 - 40 % [facility] [place] Monocytes 12 4 - 12 % [facility] Eosinophils 8(H) 0 - 3 % [facility] [place] Basophils 1 0 - 1 % [facility] WBC Estimate Normal [facility] Platelet Estimate Normal [facility] RBC Morphology Normal [facility] Blood 03/15/2022 9:34 AM CDT Narrative [facility] - 03/15/2022 11:41 AM CDT Release to patient->Immediate Buzz Sales PAC HEMATOLOGY ORDERABLES Kym l Result [facility] [address] [place] [address], * (ABNORMAL) CMP (COMPREHENSIVE METABOLIC PANEL) (03/15/2022 9:34 AM CDT) Glucose 176(H) 70 - 105 mg/dL [facility] Blood Urea Nitrogen 44(H) 7 - 25 mg/dL [facility] Creatinine 2.6(H) 0.6 - 1.2 mg/dL [facility] Sodium 138 136 - 145 mEq/L [facility] Potassium 4.7 3.5 - 5.1 mEq/L [facility] Chloride 109(H) 98 - 107 mEq/L [facility] Bicarbonate 22 21 - 31 mEq/L [facility] Total Bilirubin 0.3 0.3 - 1.0 mg/dL [facility] Alk. Phosphatase 69 34 - 104 U/L [facility] Aspartate Aminotransferase 15 13 - 39 U/L [facility] Alanine Aminotransferase 11 7 - 52 U/L [facility] Total Protein 5.1(L) 6.4 - 8.9 g/dL [facility] Albumin 3.2(L) 3.5 - 5.7 g/dL [facility] Calcium 8.7 8.6 - 10.3 mg/dL [facility] Anion Gap 11.7 7.0 - 15.0 mEq/L [facility] Globulin 1.9(L) 2.0 - 3.5 g/dL [facility] EGFR 20(L) >60 ml/min/1. 73m2 [facility] Comment: This eGFR is calculated using 2020 CKD-EPI Creatinine equation without race modifier based on the NKF-ASN task force recommendations Blood 03/15/2022 9:34 AM CDT Narrative [facility] - 03/15/2022 10:46 AM CDT IS THE PATIENT REQUIRED TO BE FASTING FOR 8 HOURS?->No Release to patient->Immediate Buzz Sales PAC CHEMISTRY ORDERABLES Final Result [facility] Cancer [facility] [address] [place] [address], * (ABNORMAL) IRON W/ IRON BINDING CAPACITY [place] (03/15/2022 9:34 AM CDT) IRON 54 50 - 212 ug/dL [facility] UIBC 197 155 - 355 ug/dL [facility] TIBC 251(L) 261 - 478 ug/dl [facility] % Saturation 22 20 - 50 % [facility] Blood 03/15/2022 9:34 AM CDT [facility] - 03/15/2022 10:46 AM CDT Release to patient->Immediate us Buzz Sales PAC LAB SEND OUTS Final Resu lt [facility] [address] [place] [address], [place] [phone] * FERRITIN (03/15/2022 9:34 AM CDT) Ferritin 64 11 - 307 ng/mL [facility] Blood 03/15/2022 9:34 AM CDT [facility] - 03/15/2022 2:16 PM CDT Release to patient->Immediate us Buzz Sales PAC CHEMISTRY ORDERABLES Final Result Performing Organization Address [facility] Co de Phone Number CANCER COATING MIXER [facility] [address] [place] [address], [place] [phone] * VITAMIN B12 (03/15/2022 9:34 AM CDT) Vitamin B12 319 180 - 914 pg/mL [facility] Blood 03/15/2022 9:34 AM CDT [facility] - 03/15/2022 2:16 PM CDT Release to patient->Immediate us Buzz Sales PAC CHEMISTRY ORDERABLES Final Result Performing Organization Address City/[facility]/ZIP Co de Phone Number CANCER COATING MIXER [facility] [address] [place] [address], [place] [phone] * FOLIC ACID (FOLATE) (03/15/2022 9:34 AM CDT) Folate 16.97 >=5.90 ng/mL CANC[facility] COATING MIXER [facility] Blood 03/15/2022 9:34 AM CDT Narrative CANC[facility] COATING M[facility]ER [facility] - 03/15/2022 2:16 PM CDT IS THE PATIENT REQUIRED TO BE FASTING FOR 12 HOURS?->No Release to patient->Immediate us Buzz Sales PAC CHEMISTRY ORDERABLES Final Result CANCER COATING MIXER [facility] [address] [place] [address], documented in this encounter Visit Diagnoses Diagnosis Hypogammaglobulinemia (HCC) Hypogammaglobulinaemia, unspecified Anemia of unknown etiology Anemia, unspecified documented in this encounter Additional Health Concerns Assessment Noted Time PHQ-9 Depression Total Score: 0 03/08/20 21 11:06 AM CDT documented as of this encounter Care Teams Private Inquiry Agent Relationship Specialty Start Date End Date Jonatan Worley [address] [place] [address] PCP - General Family Medicine 07/12/20 Srinivasa Lee MD [address] [place] [address] Consulting Physician Oncology 07/12/20 documented as of this encounter
--- OUTSIDE RECORDS SUMMARY | 2024-09-14 06:20 | XMS_ITS | Encounter Summary ---
Author Organization [facility] Address [address] [place] [address] Phone Care Team Providers Care Magazine Writer Name Role Phone Jonatan Worley Primary Care Provider Srinivasa Lee MD Unavailable [phone] Encounter Details Date Type Department Care Team (Late Contact Info) Description 07/28/2020 12:30 PM PAINT PREPPER Lab [facility] [address] [phone] Lab, Cc [facility] Anemia of unknown etiology; Hypogammaglobulinemia (HCC) [...] on file Legal Sex Female 11:51 AM PAINT PREPPER Gender Identity Not on file Sexual Orientation Not on file COVID-19 Exposure Response Date Recorded In the last month, have you been in contact with someone who was confirmed or suspected to have Coronavirus / COVID-19? No / Unsure 07/28/2020 10:59 AM PAINT PREPPER documented as of this encounter Plan of Treatment Upcoming Encounters Date Type Department Care Team (Late st Contact Info) Description 10/18/2024 1:30 PM PAINT PREPPER Office Visit [facility] [place] [address] [place] [address] Srinivasa Lee MD [address] [place] [address] documented as of this encounter Procedures Procedure Name Priority Date/Time Associated Diagnosis Comments VITAMIN B12 Routine 07/28/2020 12:05 PM PAINT PREPPER Anemia of unknown etiology Hypogammaglobuline ellen (HCC) RETICULOCYTE COUNT (RETIC) Routine 07/28/2020 12:05 PM PAINT PREPPER Anemia of unknown etiology Hypogammaglobuline ellen (HCC) LACTATE DEHYDROGENASE (LD) Routine 07/28/2020 12:05 PM PAINT PREPPER Anemia of unknown etiology Hypogammaglobuline ellen (HCC) IMMUNOGLOBULIN IGA, IGG & IGM QUANT Routine 07/28/2020 12:05 PM PAINT PREPPER Anemia of unknown etiology Hypogammaglobuline ellen (HCC) HAPTOGLOBIN Routine 07/28/2020 12:05 PM PAINT PREPPER Anemia of unknown etiology Hypogammaglobuline ellen (HCC) FOLIC ACID (FOLATE) Routine 07/28/2020 1 2:05 PM PAINT PREPPER Anemia of unknown etiology Hypogammaglobuline ellen (HCC) COMPLETE BLOOD COUNT (CBC) WITH DIFF Routine 07/28/2020 12:05 PM PAINT PREPPER Anemia of unknown etiology Hypogammaglobuline ellen (HCC) documented in this encounter Results * (ABNORMAL) COMPLETE BLOOD COUNT (CBC) WITH DIFF (07/28/2020 12:05 PM PAINT PREPPER) WBC 8.2 4.0 - 10.0 10*3/uL [facility] HGB 10.7(L) 11.2 - 15.7 g/dL [facility] HCT 31.2(L) 34.1 - 44.9 % [facility] PLT 172 163 - 369 10*3/uL [facility] MPV 10.3 9.4 - 12.4 fL [facility] RBC 3.66(L) 3.93 - 5.22 10*6/uL [facility] MCV 85 79 - 95 fL [facility] MCH 29.2 25.6 - 32.2 pg [facility] MCHC 34.3 32.2 - 36.5 g/dL [facility] RDW 12.4 11.6 - 14.4 % [facility] Absolute Neutrophil Count 5,392 cells/uL [facility] Absolute Seg Count 5,392 1,440 - 6,600 cells/uL [facility] Absolute Lymph Count 1,797 760 - 4,000 cells/uL [facility] Absolute [place] Count 245 160 - 1,200 cells/uL [facility] Absolute Eos Count 735(H) 0 - 300 cells/uL [facility] Segmented Neutrophils 66 36 - 66 % [facility] Lymphocytes 22 19 - 40 % [facility] [place] Monocytes 3(L) 4 - 12 % [facility] Eosinophils 9(H) 0 - 3 % [facility] [place] WBC Estimate Normal [facility] Platelet Estimate Normal [facility] RBC Morphology Normal [facility] Blood 07/28/2020 12:0 5 PM PAINT PREPPER Narrative [facility] - 07/28/2020 1:49 PM PAINT PREPPER Release to patient->Immediate Srinivasa Lee MD HEMATOLOGY ORDERABLES Final Result [facility] [address] [place] [address], * LACTATE DEHYDROGENASE (LD) (07/28/2020 12:05 PM PAINT PREPPER) LDH 176 140 - 271 U/L [facility] Blood 07/28/2020 12:0 5 PM PAINT PREPPER Narrative [facility] - 07/28/2020 12:45 PM PAINT PREPPER Release to patient->Immediate Srinivasa Lee MD CHEMISTRY ORDERABLES Final R esult Performing Organization Address [facility] Co de Phone Number [facility] [address] [place] [address], [place] [phone] * RETICULOCYTE COUNT (RETIC) (07/28/2020 12:05 PM PAINT PREPPER) Reticulocyte count 1.01 0.50 - 1.70 % [facility] RET-He 33.80 28.20 - 36.60 pg [facility] Comment: RET-He is a direct assessment of incorporation of iron into erythrocyte hemoglobin. It provides an indirect measure of the iron available for new erythropoiesis over past 2-4 days. Blood 07/28/2020 12:0 5 PM PAINT PREPPER [facility] - 07/28/2020 12:11 PM PAINT PREPPER Release to patient->Immediate Srinivasa Lee MD HEMATOLOGY ORDERABLES Final Result Performing Organization Address [facility] Co de Phone Number [facility] Cancer [facility] [address] [place] [address], [place] [phone] * FOLIC ACID (FOLATE) (07/28/2020 12:05 PM PAINT PREPPER) Folate 13.32 >=5.90 ng/mL [facility] Blood 07/28/2020 12:0 5 PM PAINT PREPPER [facility] CANCER [facility] - 07/31/2020 2:02 PM PAINT PREPPER IS THE PATIENT REQUIRED TO BE FASTING FOR 12 HOURS?->No Release to patient->Immediate Srinivasa Lee MD CHEMISTRY ORDERABLES Final R esult Performing Organization Address City/[facility] Co de Phone Number [facility] [address] [place] [address], [place] [phone] * VITAMIN B12 (07/28/2020 12:05 PM PAINT PREPPER) Vitamin B12 345 180 - 914 pg/mL [facility] Blood 07/28/2020 12:0 5 PM PAINT PREPPER Narrative [facility] - 07/31/2020 2:02 PM PAINT PREPPER Release to patient->Immediate Srinivasa Lee MD CHEMISTRY ORDERABLES Final R esult Performing Organization Address City/[facility]/ZIP Co de Phone Number [facility] [place] [address] [place] [address], [place] [phone] * HAPTOGLOBIN (07/28/2020 12:05 PM PAINT PREPPER) HAPTO 85 30 - 200 mg/dL [facility] Blood 07/28/2020 12:0 5 PM PAINT PREPPER Narrative [facility] - 08/01/2020 1:44 PM PAINT PREPPER Release to patient->Immediate us Srinivasa Lee MD CHEMISTRY ORDERABLES Final R esult Performing Organization Address [facility]/ZIP Co de Phone Number [facility] [place] [address] [place] [address], [place] [phone] * (ABNORMAL) IMMUNOGLOBULIN IGA, IGG & IGM QUANT (07/28/2020 12:05 PM PAINT PREPPER) IGG 627(L) 635 - 1,741 mg/dL [facility] IGA 180 66 - 433 mg/dL [facility] IGM 55 45 - 281 mg/dL [facility] Blood 07/28/2020 12:0 5 PM PAINT PREPPER Narrative [facility] - 07/31/2020 1:40 PM PAINT PREPPER Release to patient->Immediate us Srinivasa Lee MD CHEMISTRY ORDERABLES Final R esult Performing Organization Address City/[facility]/ZIP Co de Phone Number [facility] [place] [address] [place], [place] [address] [phone] documented in this encounter Visit Diagnoses Diagnosis Anemia of unknown etiology Anemia, unspecified Hypogammaglobulinemia (HCC) Hypogammaglobulinaemia, unspecified documented in this encounter Additional Health Concerns Assessment Noted Time PHQ-9 Depression Total Score: 0 07/28/20 20 11:51 AM PAINT PREPPER documented as of this encounter Care Teams Magazine Writer Relationship Specialty Start Date End Date Meir Jonatan [address] [place] [address] PCP - General Family Medicine 07/12/20 Srinivasa Lee MD [address] [place] [phone] Consulting Physician Oncology 07/12/20 documented as of this encounter
--- OUTSIDE RECORDS SUMMARY | 2024-09-14 06:20 | XMS_ITS | Encounter Summary ---
Author Organization [facility] Address [address] [place] [address] Phone Care Team Providers Care Oil Exploration Engineer Name Role Phone Jonatan Worley Primary Care Provider Srinivasa Lee MD Unavailable [phone] Reason for Visit * Reason Comments Follow-up Encounter Details Date Type Department Care Team (Latest Contact Info) Description 09/06/2022 9:30 AM SYSTEMS TEST TECHNICIAN Office Visit [facility] [address] [address] Srinivasa Lee MD [address] [facility] [address] [address] Hypogammaglobulinemia (HCC) (Primary Dx); Anemia [...] on file Legal Sex Female 11:51 AM SYSTEMS TEST TECHNICIAN Gender Identity Not on file Sexual Orientation Not on file COVID-19 Exposure Response Date Recorded In the last 10 days, have sloane foreman been in contact with someone who was confirmed or suspected to have Coronavirus/COVID-19? No / Unsure 09/06/2022 9:09 AM SYSTEMS TEST TECHNICIAN documented as of this encounter Last Filed Vital Signs Vital Sign Reading Time Taken Comments Blood Pressure 158/106 09/06/2022 9:43 AM SYSTEMS TEST TECHNICIAN Pulse 69 09/06/2022 9:43 AM SYSTEMS TEST TECHNICIAN Temperature 36.7 ??C (98 ??F) 09/06/2022 9:43 AM SYSTEMS TEST TECHNICIAN Respiratory Rate 18 09/06/2022 9:43 AM SYSTEMS TEST TECHNICIAN Oxygen Saturation 98% 09/06/2022 9:43 AM SYSTEMS TEST TECHNICIAN Inhaled Oxygen Concentration - - Weight 95.7 kg (211 lb) 09/06/2022 9:43 AM SYSTEMS TEST TECHNICIAN Height 170.2 cm (5' 7 ) 09/06/2022 9:43 AM SYSTEMS TEST TECHNICIAN Body Mass Index 33.05 09/06/2022 9:43 AM SYSTEMS TEST TECHNICIAN documented in this encounter Progress Notes * Srinivasa Lee MD - 09/06/2022 9:30 AM CST Images from the original note were not included. Patient: Arely Ernandez Age: 61 y.o. : 1960 [facility] En[facility] Date: 09/06/2022 Care Team: Current [...] 4 TIMES DAILY ??? ergocalciferol (VITAMIN D) [id number] UNIT Capsule TAKE 1 CAPSULE BY MOUTH [...] 09/06/2022 12.4 11.6 - 14.4 % Final EMS TEST TECHNICIAN EMS TEST TECHNICIAN documented in this encounter Plan of Treatment Upcoming Encounters Date Type Department Care Team (Late st Contact Info) Description 10/18/2024 1:30 PM SYSTEMS TEST TECHNICIAN Office Visit [facility] [place] [address] [place] [phone] Srinivasa Lee MD [address] [place] [address] [address] [place] [address] documented as of this encounter Visit Diagnoses Diagnosis Hypogammaglobulinemia (HCC)- Primary Hypogammaglobulinaemia, unspecified Anemia of unknown etiology Anemia, unspecified documented in this encounter Additional Health Concerns Assessment Noted Time PHQ-9 Depression Total Score: 0 03/08/20 21 11:06 AM CDT documented as of this encounter Care Teams Oil Exploration Engineer Relationship Specialty Start Date End Date Jonatan Worley [address] [place] [address] PCP - General Family Medicine 07/12/20 Srinivasa Lee MD [address] [place] [phone] Consulting Physician Oncology 07/12/20 documented as of this encounter
--- OUTSIDE RECORDS SUMMARY | 2024-09-14 06:20 | XMS_ITS | Encounter Summary ---
Author Organization [facility] Address [address] [place] [address] Phone Care Team Providers Care Credit Risk Analyst Name Role Phone Jonatan Worley Primary Care Provider Srinivasa Lee MD Unavailable [phone] Reason for Visit * Reason Comments Follow-up Encounter Details Date Type Department Care Team (Late st Contact Info) Description 03/15/2022 9:30 AM CDT Office Visit [facility] [address] [address] Srinivasa Lee MD [address] [address] Anemia of unknown etiology (Primary [...] on file Legal Sex Female 11:51 AM OXYGEN EQUIPMENT TECHNICIAN Gender Identity Not on file Sexual [...] y.o. : 1960 Encounter Dept: [facility] Encounter Date: 03/15/2022 Care Team: Current Providers [...] 4 TIMES DAILY ??? ergocalciferol (VITAMIN D) 62713 UNIT Capsule TAKE 1 CAPSULE BY MOUTH [...] st Contact Info) Description 10/18/2024 1:30 PM OXYGEN EQUIPMENT TECHNICIAN Office Visit [facility] [address] [address] Srinivasa Lee MD [address] [place] [address] documented as of this encounter Results * FERRITIN (06/14/2022 9:38 AM CDT) Ferritin 67 11 - 307 ng/mL CANCER ADJUNCT INSTRUCTOR OF WOMEN'S STUDIES [facility] Blood 06/14/2022 9:38 AM CDT Narrative [facility] - 06/14/2022 2:45 PM CDT Release to patient->Immediate Srinivasa Lee MD CHEMISTRY ORDERABLES Final R esult CANCER ADJUNCT INSTRUCTOR OF WOMEN'S STUDIES [facility] [address] [place] [address], [place] [phone] * (ABNORMAL) IRON W/ IRON BINDING CAPACITY [place] (06/14/2022 9:38 AM CDT) IRON 62 50 - 212 ug/dL [facility] UIBC 187 155 - 355 ug/dL [facility] TIBC 249(L) 261 - 478 ug/dl [facility] % Saturation 25 20 - 50 % [facility] Blood 06/14/2022 9:38 AM CDT Narrative [facility] - 06/14/2022 11:05 AM CDT Release to patient->Immediate Srinivasa Lee MD LAB SEND OUTS Final Result [facility] [address] [place] [address], [place] [phone] documented in this encounter Visit Diagnoses Diagnosis Anemia of unknown etiology- Primary Anemia, unspecified Anemia of unknown etiology Anemia, unspecified documented in this encounter Additional Health Concerns Assessment Noted Time PHQ-9 Depression Total Score: 0 03/08/20 11:06 AM CDT documented as of this encounter Care Teams Credit Risk Analyst Relationship Specialty Start Date End Date Jonatan Worley [address] [place] [address] PCP - General Family Medicine 07/12/20 Srinivasa Lee MD [address] [place] [phone] Consulting Physician Oncology 07/12/20 documented as of this encounter
--- OUTSIDE RECORDS SUMMARY | 2024-09-14 06:20 | XMS_ITS | Encounter Summary ---
Author Organization [employer] Care Team Providers Care Lithographic Press Feeder Name Role Phone Jonatan Worley Primary Care Provider [phone] Srinivasa Lee MD Unavailable [phone] Encounter Details Date Type Department Care Team [...] file Legal Sex Female 11:51 AM SOLAR DEVELOPMENT ENGINEER Gender Identity Not on file Sexual Orientation Not on file COVID-19 Exposure Response Date Recorded In the last month, have you been in contact with someone who was confirmed or suspected to have Coronavirus / COVID-19? No / Unsure 09/06/2021 11:11 AM SOLAR DEVELOPMENT ENGINEER documented as of this encounter Plan of Treatment Upcoming Encounters Date Type Department Care Team (Late st Contact Info) Description 10/18/2024 1:30 PM SOLAR DEVELOPMENT ENGINEER Office Visit [facility] [address] [address] Srinivasa Lee MD [address] [address] documented as of this encounter Visit Diagnoses Not on filedocumented in this encounter Additional Health Concerns Assessment Noted Time PHQ-9 Depression Total Score: 0 03/08/20 21 11:06 AM CDT documented as of this encounter Care Teams Lithographic Press Feeder Relationship Specialty Start Date End Date Jonatan Worley [address] [place] [address] PCP - General Family Medicine 07/12/20 Srinivasa Lee MD [address] [place] [id number] Consulting Physician Oncology 07/12/20 documented as of this encounter
--- OUTSIDE RECORDS SUMMARY | 2024-09-14 06:20 | XMS_ITS | Encounter Summary ---
Author Organization [facility] Address [address] [place] [address] Phone Care Team Providers Care Seam Press Operator Name Role Phone Jonatan Worley Primary Care Provider [phone] Srinivasa Lee MD Unavailable [phone] Encounter Details Date Type Department Care Team (Late Contact Info) Description 09/06/2021 12:05 PM ASSISTANT QUALITY MANAGER Lab [facility] [address] [address] Lab, [facility] Anemia of unknown etiology Social History Tobacco [...] file Legal Sex Female 11:51 AM ASSISTANT QUALITY MANAGER Gender Identity Not on file Sexual Orientation Not on file COVID-19 Exposure Response Date Recorded In the last month, have you been in contact with someone who was confirmed or suspected to have Coronavirus / COVID-19? No / Unsure 09/06/2021 11:11 AM ASSISTANT QUALITY MANAGER documented as of this encounter Plan of Treatment Upcoming Encounters Date Type Department Care Team (Late st Contact Info) Description 10/18/2024 1:30 PM ASSISTANT QUALITY MANAGER Office Visit [facility] [place] [address] [place] [address] Srinivasa Lee MD [address] [place], [place] [id number] documented as of this encounter Procedures Procedure Name Priority Date/Time Associated Diagnosis Comments IRON W/ IRON BINDING CAPACITY [place] Routine 09/06/2021 12:01 PM ASSISTANT QUALITY MANAGER Anemia of unknown etiology VITAMIN B12 Routine 09/06/2021 12:01 PM ASSISTANT QUALITY MANAGER Anemia of unknown etiology RETICULOCYTE COUNT (RETIC) Routine 09/06/2021 12:01 PM ASSISTANT QUALITY MANAGER Anemia of unknown etiology FOLIC ACID (FOLATE) Routine 09/06/2021 1 2:01 PM ASSISTANT QUALITY MANAGER Anemia of unknown etiology FERRITIN Routine 09/06/2021 12:01 PM ASSISTANT QUALITY MANAGER Anemia of unknown etiology COMPLETE BLOOD COUNT (CBC) WITH DIFF Routine 09/06/2021 12:01 PM ASSISTANT QUALITY MANAGER Anemia of unknown etiology documented in this encounter Results * (ABNORMAL) COMPLETE BLOOD COUNT (CBC) WITH DIFF (09/06/2021 12:01 PM ASSISTANT QUALITY MANAGER) WBC 10.3(H) 4.0 - 10.0 10*3/uL [facility] HGB 9.7(L) 11.2 - 15.7 g/dL [facility] HCT 28.9(L) 34.1 - 44.9 % [facility] PLT 183 163 - 369 10*3/uL [facility] MPV 10.7 9.4 - 12.4 fL [facility] RBC 3.33(L) 3.93 - 5.22 10*6/uL [facility] MCV 87 79 - 95 fL [facility] MCH 29.1 25.6 - 32.2 pg [facility] MCHC 33.6 32.2 - 36.5 g/dL [facility] RDW 12.5 11.6 - 14.4 % [facility] Absolute Neutrophil Count 6,089 cells/uL [facility] Absolute Seg Count 6,089 1,440 - 6,600 cells/uL [facility] Absolute Lymph Count 2,270 760 - 4,000 cells/uL [facility] Absolute [place] Count 929 160 - 1,200 cells/uL [facility] Absolute Eos Count 929(H) 0 - 300 cells/uL [facility] Absolute Baso Count 103(H) 0 - 100 cells/uL [facility] Segmented Neutrophils 59 36 - 66 % [facility] Lymphocytes 22 19 - 40 % [facility] Monocytes 9 4 - 12 % [facility] Eosinophils 9(H) 0 - 3 % [facility] Basophils 1 0 - 1 % [facility] WBC Estimate High [facility] Platelet Estimate Normal [facility] RBC Morphology Normal [facility] Blood 09/06/2021 12:0 1 PM ASSISTANT QUALITY MANAGER Narrative [facility] - 09/06/2021 2:17 PM ASSISTANT QUALITY MANAGER Release to patient->Immediate Srinivasa Lee MD HEMATOLOGY ORDERABLES Final Result Performing Organization Address City/[facility]/ZIP Co de Phone Number [facility] [address] [place] [address], * FOLIC ACID (FOLATE) (09/06/2021 12:01 PM ASSISTANT QUALITY MANAGER) Folate 12.24 >=5.90 ng/mL [facility] CLERGY MEMBER [facility] Blood 09/06/2021 12:0 1 PM ASSISTANT QUALITY MANAGER Narrative CANCER CLERGY MEMBER [facility] - 09/07/2021 2:53 PM ASSISTANT QUALITY MANAGER Release to patient->Immediate Srinivasa Lee MD CHEMISTRY ORDERABLES Final R esult CANCER CLERGY MEMBER [facility] [place] [address] [place] [address], [place] [phone] * FERRITIN (09/06/2021 12:01 PM ASSISTANT QUALITY MANAGER) Ferritin 89 11 - 307 ng/mL [facility] Blood 09/06/2021 12:0 1 PM ASSISTANT QUALITY MANAGER Narrative [facility] - 09/07/2021 2:53 PM ASSISTANT QUALITY MANAGER Release to patient->Immediate Srinivasa Lee MD CHEMISTRY ORDERABLES Final R esult Performing Organization Address City/[facility] Co de Phone Number [facility] [place] [address], [place] [phone] * RETICULOCYTE COUNT (RETIC) (09/06/2021 12:01 PM ASSISTANT QUALITY MANAGER) Reticulocyte count 1.23 0.50 - 1.70 % [facility] RET-He 33.70 28.20 - 36.60 pg [facility] Comment: RET-He is a direct assessment of incorporation of iron into erythrocyte hemoglobin. It provides an indirect measure of the iron available for new erythropoiesis over past 2-4 days. Blood 09/06/2021 12:0 1 PM ASSISTANT QUALITY MANAGER Narrative [facility] - 09/06/2021 12:20 PM ASSISTANT QUALITY MANAGER Release to patient->Immediate Srinivasa Lee MD HEMATOLOGY ORDERABLES Final Result [facility] [address] [address], [place] [phone] * (ABNORMAL) IRON W/ IRON BINDING CAPACITY [place] (09/06/2021 12:01 PM ASSISTANT QUALITY MANAGER) IRON 54 50 - 212 ug/dL [facility] UIBC 196 155 - 355 ug/dL [facility] TIBC 250(L) 261 - 478 ug/dl [facility] % Saturation 22 20 - 50 % [facility] 09/06/2021 12:0 1 PM ASSISTANT QUALITY MANAGER Narrative [facility] - 09/06/2021 1:08 PM ASSISTANT QUALITY MANAGER Release to patient->Immediate Srinivasa Lee MD LAB SEND OUTS Final Result Performing Organization Address City/[facility]/ZIP Co de Phone Number [facility] [address] [place] [address], * VITAMIN B12 (09/06/2021 12:01 PM ASSISTANT QUALITY MANAGER) Vitamin B12 348 180 - 914 pg/mL [facility] Blood 09/06/2021 12:0 1 PM ASSISTANT QUALITY MANAGER Narrative [facility] - 09/07/2021 2:53 PM ASSISTANT QUALITY MANAGER Release to patient->Immediate Srinivasa Lee MD CHEMISTRY ORDERABLES Final R esult Performing Organization Address [facility] Co de Phone Number CANCER CLERGY MEMBER [facility] [address] [place] [address], [place] [phone] documented in this encounter Visit Diagnoses Diagnosis Anemia of unknown etiology Anemia, unspecified documented in this encounter Additional Health Concerns Assessment Noted Time PHQ-9 Depression Total Score: 0 03/08/20 21 11:06 AM CDT documented as of this encounter Care Teams Seam Press Operator Relationship Specialty Start Date End Date Jonatan Worley [address] [place] [address] PCP - General Family Medicine 07/12/20 Srinivasa Lee MD [address] [place] [phone] Consulting Physician Oncology 07/12/20 documented as of this encounter
--- OUTSIDE RECORDS SUMMARY | 2024-09-14 06:20 | XMS_ITS | Encounter Summary ---
Author Organization [facility] Address [address] [place] [address] Phone Care Team Providers Care Entry Level Sales Consultant Name Role Phone Jonatan Worley Primary Care Provider [phone] Srinivasa Lee MD Unavailable Reason for Visit * Reason Comments Follow-up Encounter Details Date Type Department Care Team (Latest Contact Info) Description 03/08/2021 11:15 AM CDT Office Visit [facility] [address] [address] Srinivasa Lee MD [address] [facility] [address] [address] Hypogammaglobulinemia (HCC) (Primary Dx); Anemia [...] on file Legal Sex Female 11:51 AM VEHICLE LEASING AND RENTAL MANAGER Gender Identity Not on file Sexual [...] : 1960 Encounter Dept: [facility] Encounter Date: 03/08/2021 Care Team: Current Providers [...] 4 TIMES DAILY ??? ergocalciferol (VITAMIN D) 62948 UNIT Capsule TAKE 1 CAPSULE BY MOUTH [...] 760 - 4,000 cells/uL Final ??? Absolute [place] Count 07/28/2020 245 160 - 1,200 cells/uL [...] st Contact Info) Description 10/18/2024 1:30 PM VEHICLE LEASING AND RENTAL MANAGER Office [facility] [address] [address] Srinivasa Lee MD [address] [place] [address] [address] [place] [address] documented as of this encounter Results * (ABNORMAL) BETA 2 MICROGLOBULIN (03/08/2021 11:21 AM CDT) [id number] 7.26(H) 0.97 - 1.84 mg/L [facility] Blood 03/08/2021 11:2 1 AM CDT Narrative [facility] - 03/09/2021 2:51 PM CDT Release to patient->Immediate us Srinivasa Lee MD CHEMISTRY ORDERABLES Final R esult CANCER SHIP ENGINES OPERATING ENGINEER OF [facility] [place] [address], [place] [phone] * (ABNORMAL) FREE KAPPA & LAMBDA LIGHT CHAINS SERUM (03/08/2021 11:21 AM CDT) FREE KAPPA LT CHAINS,S 75.2(H) 3.3 - 19.4 MG/L [facility] FREE LAMBDA LT CHAINS,S 50.0(H) 5.7 - 26.3 MG/L [facility] FREE KAPPA/FREE LAMBDA RATIO LT CHAINS 1.50 0.26 - 1.65 [facility] Blood 03/08/2021 11:2 1 AM CDT Narrative [facility] - 03/09/2021 8:13 PM CDT TESTING PERFORMED AT: [] [employer] [address], [address], PHONE: [phone], P D DRIVER: PEGGY MARCUS, PHD Release to patient->Immediate Srinivasa Lee MD CHEMISTRY ORDERABLES Final R esult Performing Organization Address City/[facility]/ZIP Co de Phone Number [facility] * IMMUNOFIXATION, SERUM [place] (03/08/2021 11:21 AM CDT) IMMUNOFIXATION RESULT, SERUM COMMENT [facility] Comment:NO MONOCLONALITY DET ECTED. 03/08/2021 11:2 1 AM CDT Narrative [facility] - 03/09/2021 3:10 PM CDT TESTING PERFORMED AT: [] [employer] [place], [address] [place] [address], [place], [address], PHONE: [phone], P D DRIVER: PEGGY MARCUS, PHD Release to patient->Immediate Srinivasa Lee MD LAB SEND OUTS Final Result Performing Organization Address City/[facility]/ZIP Co de Phone Number [facility] * (ABNORMAL) ELECTROPHORESIS W/ TOTAL PROTEIN SERUM (03/08/2021 11:21 AM CDT) PROTEIN, TOTAL, SERUM 5.0(L) 6.0 - 8.5 G/DL [facility] ALBUMIN 2.4(L) 2.9 - 4.4 G/DL [facility] MUYSJ-0-VRTGWSYZ 0.3 0.0 - 0.4 G/DL [facility] YFTAW-2-HQNHSCMU 0.8 0.4 - 1.0 G/DL [facility] BETA GLOBULIN 0.9 0.7 - 1.3 G/DL [facility] GAMMA GLOBULIN 0.6 0.4 - 1.8 G/DL [facility] M-SPIKE NOT OBSERVED NOT OBSERVED G/DL [facility] GLOBULIN, TOTAL 2.6 2.2 - 3.9 G/DL [facility] A/G RATIO 0.9 0.7 - 1.7 [facility] PLEASE NOTE: COMMENT [facility] Comment: PROTEIN ELECTROPHORESIS SCAN WILL FOLLOW VIA COMPUTER, MAIL, OR GRAVEDIGGER DELIVERY. PDF . [facility] Blood 03/08/2021 11:2 1 AM CDT Narrative [facility] - 03/09/2021 3:10 PM CDT TESTING PERFORMED AT: [] [address], [address], PHONE: [phone], P D DRIVER: PEGGY MARCUS, PHD Release to patient->Immediate us Srinivasa Lee MD CHEMISTRY ORDERABLES Final R esult [facility] * (ABNORMAL) IMMUNOGLOBULIN IGA, IGG & IGM QUANT (03/08/2021 11:21 AM CDT) IGG 484(L) 635 - 1,741 mg/dL [facility] IGA 181 66 - 433 mg/dL [facility] SHIP ENGINES [facility]PERATING [facility] IGM 54 45 - 281 mg/dL [facility] SHIP ENGINES [facility]ATING [facility] Blood 03/08/2021 11:2 1 AM CDT Narrative CANCER SHIP ENGINES OPERATING ENGINEER [facility] - 03/09/2021 2:51 PM CDT Release to patient->Immediate Srinivasa Lee MD CHEMISTRY ORDERABLES Final R esult CANCER SHIP ENGINES OPERATING ENGINEER [facility] [address] [place] [address], [place] [phone] * VITAMIN B12 (03/08/2021 11:21 AM CDT) Vitamin B12 384 180 - 914 pg/mL CANCER SHIP ENGINES OPERATING ENGINEER [facility] Blood 03/08/2021 11:2 1 AM CDT [facility] - 03/09/2021 3:34 PM CDT Release to patient->Immediate Srinivasa Lee MD CHEMISTRY ORDERABLES Final R esult Performing Organization Address [facility] Co de Phone Number CANCER SHIP ENGINES OPERATING ENGINEER [facility] [address] [place] [address], [place] [phone] * (ABNORMAL) IRON W/ IRON BINDING CAPACITY [place] (03/08/2021 11:21 AM CDT) IRON 70 50 - 212 ug/dL [facility] UIBC 164 155 - 355 ug/dL [facility] TIBC 234(L) 261 - 478 ug/dl [facility] % Saturation 30 20 - 50 % [facility] 03/08/2021 11:2 1 AM CDT [facility] - 03/08/2021 12:55 PM CDT Release to patient->Immediate us Srinivasa Lee MD LAB SEND OUTS Final Result Performing Organization Address City/[facility]/ZIP Co de Phone Number [facility] [place] [address], [place] [phone] * RETICULOCYTE COUNT (RETIC) (03/08/2021 11:21 AM CDT) Reticulocyte count 1.11 0.50 - 1.70 % [facility] RET-He 34.60 28.20 - 36.60 pg [facility] Comment: RET-He is a direct assessment of incorporation of iron into erythrocyte hemoglobin. It provides an indirect measure of the iron available for new erythropoiesis over past 2-4 days. Blood 03/08/2021 11:2 1 AM CDT [facility] - 03/08/2021 11:35 AM CDT Release to patient->Immediate us Srinivasa Lee MD HEMATOLOGY ORDERABLES Final Result [facility] [place] [address], [place] [phone] * FERRITIN (03/08/2021 11:21 AM CDT) Ferritin 109 11 - 307 ng/mL [facility] Blood 03/08/2021 11:2 1 AM CDT Narrative [facility] - 03/09/2021 3:34 PM CDT Release to patient->Immediate us Srinivasa Lee MD CHEMISTRY ORDERABLES Final R esult CANCER SHIP ENGINES OPERATING ENGINEER [facility] [address] [place] [address], [place] [phone] * FOLIC ACID (FOLATE) (03/08/2021 11:21 AM CDT) Folate 14.72 >=5.90 ng/mL [facility] Blood 03/08/2021 11:2 1 AM CDT Narrative [facility] - 03/09/2021 3:34 PM CDT IS THE PATIENT REQUIRED TO BE FASTING FOR 12 HOURS?->No Release to patient->Immediate us Srinivasa Lee MD CHEMISTRY ORDERABLES Final R esult CANCER SHIP ENGINES OPERATING ENGINEER [facility] [address] [place] [address], [place] [phone] * LACTATE DEHYDROGENASE (LD) (03/08/2021 11:21 AM CDT) LDH 176 140 - 271 U/L [facility] Blood 03/08/2021 11:2 1 AM CDT Narrative [facility] - 03/08/2021 12:55 PM CDT Release to patient->Immediate Srinivasa Lee MD CHEMISTRY ORDERABLES Final R esult [facility] [address] [place] [address], [place] [phone] * (ABNORMAL) CMP (COMPREHENSIVE METABOLIC PANEL) (03/08/2021 11:21 AM CDT) Glucose 250(H) 70 - 105 mg/dL [facility] Blood Urea Nitrogen 37(H) 7 - 25 mg/dL [facility] Creatinine 1.6(H) 0.6 - 1.2 mg/dL [facility] Sodium 141 136 - 145 mEq/L [facility] Potassium 5.4(H) 3.5 - 5.1 mEq/L [facility] Chloride 112(H) 98 - 107 mEq/L [facility] Bicarbonate 24 21 - 31 mEq/L [facility] Total Bilirubin 0.3 0.3 - 1.0 mg/dL [facility] Alk. Phosphatase 66 34 - 104 U/L [facility] Aspartate Aminotransferase 17 13 - 39 U/L [facility] Alanine Aminotransferase 14 7 - 52 U/L [facility] Total Protein 4.9(L) 6.4 - 8.9 g/dL [facility] Albumin 2.9(L) 3.5 - 5.7 g/dL [facility] Calcium 8.6 8.6 - 10.3 mg/dL [facility] Anion Gap 10.4 7.0 - 15.0 mEq/L [facility] Globulin 2.0 2.0 - 3.5 g/dL [facility] EGFR (Non ) 33.0(L) >60.0 ml/min [facility] EGFR () 39.9(L) >60.0 ml/min [facility] Blood 03/08/2021 11:2 1 AM CDT Narrative [facility] - 03/08/2021 12:56 PM CDT IS THE PATIENT REQUIRED TO BE FASTING FOR 8 HOURS?->No Release to patient->Immediate us Srinivasa Lee MD CHEMISTRY ORDERABLES Final R esult [facility] [address] [place] [address], * (ABNORMAL) COMPLETE BLOOD COUNT (CBC) WITH DIFF (03/08/2021 11:21 AM CDT) WBC 7.8 4.0 - 10.0 10*3/uL [facility] HGB 9.3(L) 11.2 - 15.7 g/dL [facility] HCT 28.0(L) 34.1 - 44.9 % [facility] PLT 185 163 - 369 10*3/uL [facility] MPV 10.7 9.4 - 12.4 fL [facility] RBC 3.14(L) 3.93 - 5.22 10*6/uL [facility] MCV 89 79 - 95 fL [facility] MCH 29.6 25.6 - 32.2 pg [facility] MCHC 33.2 32.2 - 36.5 g/dL [facility] RDW 12.7 11.6 - 14.4 % [facility] Absolute Neutrophil Count 5,687 cells/uL [facility] Absolute Seg Count 5,687 1,440 - 6,600 cells/uL [facility] Absolute Lymph Count 1,558 760 - 4,000 cells/uL [facility] Absolute [place] Count 234 160 - 1,200 cells/uL [facility] Absolute Eos Count 312(H) 0 - 300 cells/uL [facility] Segmented Neutrophils 73(H) 36 - 66 % [facility] Lymphocytes 20 19 - 40 % [facility] Monocytes 3(L) 4 - 12 % [facility] Eosinophils 4(H) 0 - 3 % [facility] WBC Estimate Normal [facility] Platelet Estimate Normal [facility] RBC Morphology Normal [facility] Blood 03/08/2021 11:2 1 AM CDT Narrative [facility] - 03/08/2021 3:38 PM CDT Release to patient->Immediate Srinivasa Lee MD HEMATOLOGY ORDERABLES Final Result [facility] [address] [place], [place] [address] [phone] documented in this encounter Visit Diagnoses Diagnosis Hypogammaglobulinemia (HCC)- Primary Hypogammaglobulinaemia, unspecified Anemia of unknown etiology Anemia, unspecified Hypogammaglobulinemia (HCC) Hypogammaglobulinaemia, unspecified Anemia of unknown etiology Anemia, unspecified documented in this encounter Additional Health Concerns Assessment Noted Time PHQ-9 Depression Total Score: 0 03/08/20 21 11:06 AM CDT documented as of this encounter Care Teams Entry Level Sales Consultant Relationship Specialty Start Date End Date Jonatan Worley [address] [place] [address] PCP - General Family Medicine 07/12/20 Srinivasa Lee MD [address] [place] [address] Consulting Physician Oncology 07/12/20 documented as of this encounter
--- OUTSIDE RECORDS SUMMARY | 2024-09-14 06:20 | XMS_ITS | Encounter Summary ---
Author Organization [facility] Address [address] [place] [address] Phone Care Team Providers Care Parts Cataloguer Name Role Phone Jonatan Worley Primary Care Provider [phone] Srinivasa Lee MD Unavailable [phone] Encounter Details Date Type Department Care Team (Late st Contact Info) Description 12/06/2021 Telephone [facility] [address] [place] [address] Srinivasa Lee MD [facility] [place] [address] [address] Social History Tobacco Use Types [...] on file Legal Sex Female 11:51 AM MINERAL RESOURCES INSPECTOR Gender Identity Not on file Sexual Orientation Not on file documented as of this encounter Miscellaneous Notes * Telephone Encounter - Bebeto Malagonelle - 12/06/2021 10:45 AM CDT Pt's stated that Mrs. Ernandez in the hospital at [facility]. documented in this encounter Plan of Treatment Upcoming Encounters Date Type Department Care Team (Late st Contact Info) Description 10/18/2024 1:30 PM MINERAL RESOURCES INSPECTOR Office Visit [facility] [place] [address] [place] [phone] Srinivasa Lee MD [address] [facility] [address] [place] [address] documented as of this encounter Visit Diagnoses Not on filedocumented in this encounter Additional Health Concerns Assessment Noted Time PHQ-9 Depression Total Score: 0 03/08/20 21 11:06 AM CDT documented as of this encounter Care Teams Parts Cataloguer Relationship Specialty Start Date End Date WorleyJonatan [address] [place] [address] PCP - General Family Medicine 07/12/20 Srinivasa Lee MD [address] [place] [phone] Consulting Physician Oncology 07/12/20 documented as of this encounter
--- OUTSIDE RECORDS SUMMARY | 2024-09-14 06:20 | XMS_ITS | Encounter Summary ---
Author Organization [employer] Care Team Providers Care Horseradish Grinder Name Role Phone Jonatan Worley Primary Care Provider [phone] Srinivasa Lee MD Unavailable [phone] Encounter Details Date Type Department Care Team [...] on file Legal Sex Female 11:51 AM ABORIGINAL LIAISON OFFICER Gender Identity Not on file Sexual [...] st Contact Info) Description 10/18/2024 1:30 PM ABORIGINAL LIAISON OFFICER Office Visit [facility] [address] [address] Srinivasa Lee MD [facility] [place] [address] [id number] documented as of this encounter Visit Diagnoses Not on filedocumented in this encounter Additional Health Concerns Assessment Noted Time PHQ-9 Depression Total Score: 0 03/08/20 21 11:06 AM CDT documented as of this encounter Care Teams Horseradish Grinder Relationship Specialty Start Date End Date Jonatan Worley [address] [place] [address] PCP - General Family Medicine 07/12/20 Srinivasa Lee MD [address] [place] [address] Consulting Physician Oncology 07/12/20 documented as of this encounter
--- OUTSIDE RECORDS SUMMARY | 2024-09-14 06:20 | XMS_ITS | Encounter Summary ---
Author Organization [facility] Address [address] [place] [address] Phone Care Team Providers Care Teasel Setter Name Role Phone Jonatan Worley Primary Care Provider [phone] Srinivasa Lee MD Unavailable [phone] Reason for Visit * Reason Comments Labs Only Encounter Details Date Type Department Care Team (Latest Contact Info) Description 03/07/2023 10:00 AM CDT Clinical Support [facility] [address] [address] Nurse, Gwendolyn Jackson [place] Anemia of unknown etiology; Hypogammaglobulinem ia (HCC) [...] on file Legal Sex Female 11:51 AM SUPERINTENDENT OF GENERATION Gender Identity Not on file Sexual Orientation [...] st Contact Info) Description 10/18/2024 1:30 PM SUPERINTENDENT OF GENERATION Office Visit [facility] [address] [address] Srinivasa Lee MD [address] [place], [place] [id number] documented as of this encounter Procedures Procedure [...] MICROGLOBULIN Routine 03/07/2023 10:01 AM CDT Hypogammaglobuline ellne (HCC) IRON W/ IRON BINDING CAPACITY [place] [...] IGG 746 635 - 1,741 mg/dL [facility] IGA 202 66 - 433 mg/dL [facility] IGM 104 45 - 281 mg/dL [facility] Blood 03/07/2023 10:0 1 AM CDT Narrative [facility] - 03/10/2023 2:03 PM CDT Release to patient->Immediate us Buzz Sales PAC CHEMISTRY ORDERABLES Final Result [facility] [address] [place] [address], [place] [phone] * (ABNORMAL) ELECTROPHORESIS W/ TOTAL PROTEIN SERUM (03/07/2023 10:01 AM CDT) PROTEIN, TOTAL, SERUM 5.7(L) 6.0 - 8.5 G/DL [facility] ALBUMIN 3.2 2.9 - 4.4 G/DL [facility] [id number] 0.2 0.0 - 0.4 G/DL [facility] [id number] 0.8 0.4 - 1.0 G/DL [facility] BETA GLOBULIN 0.8 0.7 - 1.3 G/DL [facility] GAMMA GLOBULIN 0.7 0.4 - 1.8 G/DL [facility] M-SPIKE NOT OBSERVED NOT OBSERVED G/DL [facility] GLOBULIN, TOTAL 2.5 2.2 - 3.9 G/DL [facility] A/G RATIO 1.3 0.7 - 1.7 [facility] PLEASE NOTE: COMMENT [facility] Comment: PROTEIN ELECTROPHORESIS SCAN WILL FOLLOW VIA COMPUTER, MAIL, OR RETAIL CLIENT MANAGER DELIVERY. PDF . [facility] Blood 03/07/2023 10:0 1 AM CDT Narrative [facility] - 03/10/2023 3:09 PM CDT TESTING PERFORMED AT: [] [facility], [address] [place] [address], [address], PHONE: [phone], FOOD MOBILE DRIVER: PEGGY MARCUS, PHD Release to patient->Immediate Buzz Sales [facility] CHEMISTRY ORDERABLES Final Result [facility] * IMMUNOFIXATION, SERUM [place] (03/07/2023 10:01 AM CDT) Pathologist [facility] IMMUNOFIXATION RESULT, SERUM COMMENT [facility] Comment:NO MONOCLONALITY DET ECTED. 03/07/2023 10:0 1 AM CDT Narrative [facility] - 03/10/2023 11:08 AM CDT TESTING PERFORMED AT: [] [facility], [address] [facility], [place], [address], PHONE: [phone], FOOD MOBILE DRIVER: PEGGY MARCUS, PHD Release to patient->Immediate Buzz Sales PAC LAB SEND OUTS Final Resu lt [facility] * (ABNORMAL) FREE KAPPA & LAMBDA LIGHT CHAINS SERUM (03/07/2023 10:01 AM CDT) FREE KAPPA LT CHAINS,S 104.9(H) 3.3 - 19.4 MG/L [facility] FREE LAMBDA LT CHAINS,S 59.6(H) 5.7 - 26.3 MG/L [facility] FREE KAPPA/FREE LAMBDA RATIO LT CHAINS 1.76(H) 0.26 - 1.65 [facility] Blood 03/07/2023 10:0 1 AM CDT Narrative [facility] - 03/10/2023 1:08 PM CDT TESTING PERFORMED AT: [] [address], [address], PHONE: [phone], FOOD MOBILE DRIVER: PEGGY MARCUS, PHD Release to patient->Immediate Buzz Sales PAC CHEMISTRY ORDERABLES Final Result Performing Organization Address [facility] Co de Phone Number [facility] * (ABNORMAL) BETA 2 MICROGLOBULIN (03/07/2023 10:01 AM CDT) Pathologist [facility] [id number] 9.94(H) 0.97 - 1.84 mg/L [facility] Blood 03/07/2023 10:0 1 AM CDT Narrative [facility] - 03/14/2023 2:06 PM CDT Release to patient->Immediate Buzz Sales PAC CHEMISTRY ORDERABLES Final Result Performing Organization Address City/[facility]/ZIP Co de Phone Number [facility] [place] [address], [place] [phone] * (ABNORMAL) COMPLETE BLOOD COUNT (CBC) WITH DIFF (03/07/2023 9:32 AM CDT) WBC 10.5(H) 4.0 - 10.0 10*3/uL [facility] HGB 9.7(L) 11.2 - 15.7 g/dL [facility] HCT 30.4(L) 34.1 - 44.9 % [facility] PLT 195 163 - 369 10*3/uL [facility] MPV 11.5 9.4 - 12.4 fL [facility] RBC 3.30(L) 3.93 - 5.22 10*6/uL [facility] MCV 92 79 - 95 fL [facility] MCH 29.4 25.6 - 32.2 pg [facility] MCHC 31.9(L) 32.2 - 36.5 g/dL [facility] RDW 12.7 11.6 - 14.4 % [facility] Absolute Neutrophil Count 8,054 cells/uL [facility] Absolute Seg Count 7,950(H) 1,440 - 6,600 cells/uL [facility] Absolute Band Count 105 0 - 800 cells/uL [facility] Absolute Lymph Count 1,046 760 - 4,000 cells/uL [facility] Absolute [place] Count 314 160 - 1,200 cells/uL [facility] Absolute Eos Count 1,046(H) 0 - 300 cells/uL [facility] Segmented Neutrophils 76(H) 36 - 66 % [facility] Band Neutrophils 1 0 - 8 % [facility] Lymphocytes 10(L) 19 - 40 % [facility] Monocytes 3(L) 4 - 12 % [facility] Eosinophils 10(H) 0 - 3 % [facility] [place] WBC Estimate High [facility] Platelet Estimate Normal [facility] RBC Morphology Normal [facility] Blood 03/07/2023 9:32 AM CDT Narrative [facility] - 03/07/2023 1:22 PM CDT Release to patient->Immediate Buzz Sales PAC HEMATOLOGY ORDERABLES Kym tineo Result [facility] [address] [place] [address], * (ABNORMAL) CMP (COMPREHENSIVE METABOLIC PANEL) (03/07/2023 9:32 AM CDT) Glucose 192(H) 70 - 105 mg/dL [facility] Blood Urea Nitrogen 39(H) 7 - 25 mg/dL [facility] Creatinine 2.5(H) 0.6 - 1.2 mg/dL [facility] Sodium 138 136 - 145 mEq/L [facility] Potassium 4.8 3.5 - 5.1 mEq/L [facility] Chloride 109(H) 98 - 107 mEq/L [facility] Bicarbonate 20(L) 21 - 31 mEq/L [facility] Total Bilirubin 0.3 0.3 - 1.0 mg/dL [facility] Alk. Phosphatase 75 34 - 104 U/L [facility] Aspartate Aminotransferase 15 13 - 39 U/L [facility] Alanine Aminotransferase 11 7 - 52 U/L [facility] Total Protein 5.4(L) 6.4 - 8.9 g/dL [facility] Albumin 3.3(L) 3.5 - 5.7 g/dL [facility] Calcium 8.5(L) 8.6 - 10.3 mg/dL [facility] Anion Gap 13.8 7.0 - 15.0 mEq/L [facility] Globulin 2.1 2.0 - 3.5 g/dL [facility] EGFR 21(L) >60 ml/min/1. 73m2 [facility] Comment: This eGFR is calculated using 2020 CKD-EPI Creatinine equation without race modifier based on the NKF-ASN task force recommendations Blood 03/07/2023 9:32 AM CDT Narrative [facility] - 03/07/2023 11:13 AM CDT Release to patient->Immediate IS THE PATIENT REQUIRED TO BE FASTING FOR 8 HOURS?->No Buzz Sales PAC CHEMISTRY ORDERABLES Final Result Performing Organization Address City/[facility]/ZIP Co de Phone Number [facility] [address] [place] [address], * LACTATE DEHYDROGENASE (LD) (03/07/2023 9:32 AM CDT) LDH 144 140 - 271 U/L [facility] Blood 03/07/2023 9:32 AM CDT Narrative [facility] - 03/07/2023 11:14 AM CDT Release to patient->Immediate Buzz Sales PAC CHEMISTRY ORDERABLES Final Result Performing Organization Address [facility] Co de Phone Number [facility] [address] [address], * (ABNORMAL) IRON W/ IRON BINDING CAPACITY [place] (03/07/2023 9:32 AM CDT) IRON 44(L) 50 - 212 ug/dL [facility] UIBC 205 155 - 355 ug/dL [facility] TIBC 249(L) 261 - 478 ug/dl [facility] % Saturation 18(L) 20 - 50 % [facility] Blood 03/07/2023 9:32 AM CDT Narrative [facility] - 03/07/2023 11:14 AM CDT Release to patient->Immediate Buzz Sales PAC LAB SEND OUTS Final Resu lt Performing Organization Address City/[facility]/ZIP Co de Phone Number [facility] [address] [address], * FERRITIN (03/07/2023 9:32 AM CDT) Ferritin 49 11 - 307 ng/mL [facility] Blood 03/07/2023 9:32 AM CDT Narrative [facility] - 03/10/2023 2:37 PM CDT Release to patient->Immediate Buzz Sales PAC CHEMISTRY ORDERABLES Final Result Performing Organization Address City/[facility]/ZIP Co de Phone Number [facility] [address] [place] [address], [place] [phone] * VITAMIN B12 (03/07/2023 9:32 AM CDT) Vitamin B12 267 180 - 914 pg/mL [facility] Blood 03/07/2023 9:32 AM CDT [facility] - 03/10/2023 2:37 PM CDT Release to patient->Immediate Buzz Sales PAC CHEMISTRY ORDERABLES Final Result Performing Organization Address [facility] de Phone Number [facility] [address] [place] [address], [place] [phone] documented in this encounter Visit Diagnoses Diagnosis Anemia of unknown etiology Anemia, unspecified Hypogammaglobulinemia (HCC) Hypogammaglobulinaemia, unspecified documented in this encounter Additional Health Concerns Assessment Noted Time PHQ-9 Depression Total Score: 0 03/08/20 21 11:06 AM CDT documented as of this encounter Care Teams Teasel Setter Relationship Specialty Start Date End Date Jonatan Worley [address] [place] [address] PCP - General Family Medicine 07/12/20 Srinivasa Lee MD [address] [place] [id number] Consulting Physician Oncology 07/12/20 documented as of this encounter
--- OUTSIDE RECORDS SUMMARY | 2024-09-14 06:20 | XMS_ITS | Encounter Summary ---
Author Organization [facility] Address [address] [place] [address] Phone Care Team Providers Care Director Of Instructional Technology Name Role Phone Jonatan Worley Primary Care Provider Srinivasa Lee MD Unavailable [phone] Encounter Details Date Type Department Care Team (Latest Contact Info) Description 12/14/2021 9:45 AM CDT Lab [facility] [address] [address] Lab, [facility] [...] on file Legal Sex Female 11:51 AM SENIOR PROCUREMENT MANAGER Gender Identity Not on file Sexual Orientation Not on file COVID-19 Exposure Response Date Recorded In the last 10 days, have yo u been in contact with someone who was confirmed or suspected to have Coronavirus/COVID-19? No / Unsure 12/14/2021 9:25 AM CDT documented as of this encounter Progress Notes * Buzz Sales PAC - 12/14/2021 9:45 AM CDT Send labs to newspaper vendor and PCP documented in this encounter Plan of Treatment Upcoming Encounters Date Type Department Care Team (Late st Contact Info) Description 10/18/2024 1:30 PM SENIOR PROCUREMENT MANAGER Office Visit [facility] [address] [address] Srinivasa Lee MD [address] [place] [address] documented as of this encounter [...] 4.0 - 10.0 10*3/uL [facility] HGB 10.5(L) 11.2 - 15.7 g/dL [facility] HCT 31.9(L) 34.1 - 44.9 % [facility] PLT 201 163 - 369 10*3/uL [facility] MPV 10.8 9.4 - 12.4 fL [facility] RBC 3.66(L) 3.93 - 5.22 10*6/uL [facility] MCV 87 79 - 95 fL [facility] MCH 28.7 25.6 - 32.2 pg [facility] MCHC 32.9 32.2 - 36.5 g/dL [facility] RDW 13.0 11.6 - 14.4 % [facility] Absolute Neutrophil Count 5,491 cells/uL [facility] Absolute Seg Count 5,491 1,440 - 6,600 cells/uL [facility] Absolute Lymph Count 1,498 760 - 4,000 cells/uL [facility] Absolute [place] Count 582 160 - 1,200 cells/uL [facility] Absolute Eos Count 666(H) 0 - 300 cells/uL [facility] Absolute Baso Count 83 0 - 100 cells/uL [facility] Segmented Neutrophils 66 36 - 66 % [facility] Lymphocytes 18(L) 19 - 40 % [facility] Monocytes 7 4 - 12 % [facility] Eosinophils 8(H) 0 - 3 % [facility] Basophils 1 0 - 1 % [facility] WBC Estimate Normal [facility] Platelet Estimate Normal [facility] RBC Morphology Normal [facility] Blood 12/14/2021 9:45 AM CDT Narrative [facility] - 12/14/2021 11:05 AM CDT Release to patient->Immediate Buzz Sales PAC HEMATOLOGY ORDERABLES Kym l Result [facility] [address] [place] [address], * (ABNORMAL) CMP (COMPREHENSIVE METABOLIC PANEL) (12/14/2021 9:45 AM CDT) Glucose 199(H) 70 - 105 mg/dL [facility] Blood Urea Nitrogen 35(H) 7 - 25 mg/dL [facility] Creatinine 2.0(H) 0.6 - 1.2 mg/dL [facility] Sodium 139 136 - 145 mEq/L [facility] Potassium 5.3(H) 3.5 - 5.1 mEq/L [facility] Chloride 111(H) 98 - 107 mEq/L [facility] Bicarbonate 22 21 - 31 mEq/L [facility] Total Bilirubin 0.4 0.3 - 1.0 mg/dL [facility] Alk. Phosphatase 81 34 - 104 U/L [facility] Aspartate Aminotransferase 15 13 - 39 U/L [facility] Alanine Aminotransferase 12 7 - 52 U/L [facility] Total Protein 5.3(L) 6.4 - 8.9 g/dL [facility] Albumin 3.2(L) 3.5 - 5.7 g/dL [facility] Calcium 8.6 8.6 - 10.3 mg/dL [facility] Anion Gap 11.3 7.0 - 15.0 mEq/L [facility] Globulin 2.1 2.0 - 3.5 g/dL [facility] EGFR 28(L) >60 ml/min/1. 73m2 [facility] Comment: This eGFR is calculated using 2020 CKD-EPI Creatinine equation without race modifier based on the NKF-ASN task force recommendations Blood 12/14/2021 9:45 AM CDT Narrative [facility] - 12/14/2021 10:38 AM CDT Release to patient->Immediate Buzz Sales PAC CHEMISTRY ORDERABLES Final Result [facility] [address] [place] [address], [place] [phone] * (ABNORMAL) IRON W/ IRON BINDING CAPACITY [place] (12/14/2021 9:45 AM CDT) IRON 62 50 - 212 ug/dL [facility] UIBC 188 155 - 355 ug/dL [facility] TIBC 250(L) 261 - 478 ug/dl [facility] % Saturation 25 20 - 50 % [facility] Blood 12/14/2021 9:45 AM CDT Narrative [facility] - 12/14/2021 10:38 AM CDT Release to patient->Immediate us Buzz Sales PAC LAB SEND OUTS Final Resu lt [facility] [address] [place] [address], * FERRITIN (12/14/2021 9:45 AM CDT) Ferritin 81 11 - 307 ng/mL [facility] Blood 12/14/2021 9:45 AM CDT Narrative [facility] - 12/17/2021 3:24 PM CDT IS THE PATIENT REQUIRED TO BE FASTING FOR 12 HOURS?->No Release to patient->Immediate us Buzz Sales PAC CHEMISTRY ORDERABLES Final Result [facility] [address] [place] [address], [place] [phone] * VITAMIN B12 (12/14/2021 9:45 AM CDT) Vitamin B12 360 180 - 914 pg/mL [facility] Blood 12/14/2021 9:45 AM CDT Narrative [facility] [employer] [facility] - 12/17/2021 3:24 PM CDT IS THE PATIENT REQUIRED TO BE FASTING FOR 12 HOURS?->No Release to patient->Immediate Buzz Sales PAC CHEMISTRY ORDERABLES Final Result [facility] [employer] [facility] [address] [place] [address], [place] [phone] * FOLIC ACID (FOLATE) (12/14/2021 9:45 AM CDT) Folate 12.52 >=5.90 ng/mL [facility] [facility] Blood 12/14/2021 9:45 AM CDT [facility] - 12/17/2021 3:24 PM CDT IS THE PATIENT REQUIRED TO BE FASTING FOR 12 HOURS?->No Release to patient->Immediate Buzz Sales PAC CHEMISTRY ORDERABLES Final Result Performing Organization Address [facility]/ZIP Co de Phone Number CANCER [employer] [employer] [facility] [address] [place] [address], [place] [phone] * IMMUNOGLOBULIN IGA, IGG & IGM QUANT (12/14/2021 9:45 AM CDT) IGG 659 635 - 1,741 mg/dL [facility] IGA 204 66 - 433 mg/dL [facility] IGM 64 45 - 281 mg/dL [facility] [facility] Blood 12/14/2021 9:45 AM CDT [facility] - 12/17/2021 2:18 PM CDT Release to patient->Immediate Buzz Sales PAC CHEMISTRY ORDERABLES Final Result Performing Organization Address City/[facility]/ZIP Co de Phone Number [facility] [employer] [facility] [place] [address] [place] [address], [place] [phone] documented in this encounter Visit Diagnoses Diagnosis Hypogammaglobulinemia (HCC) Hypogammaglobulinaemia, unspecified Anemia of unknown etiology Anemia, unspecified documented in this encounter Additional Health Concerns Assessment Noted Time PHQ-9 Depression Total Score: 0 03/08/20 21 11:06 AM CDT documented as of this encounter Care Teams Director Of Instructional Technology Relationship Specialty Start Date End Date Jonatan Worley [address] [facility] [place] [address] PCP - General Family Medicine 07/12/20 Srinivasa Lee MD [address] [place] [phone] Consulting Physician Oncology 07/12/20 documented as of this encounter
--- OUTSIDE RECORDS SUMMARY | 2024-09-14 06:20 | XMS_ITS | Encounter Summary ---
Author Organization [facility] Address [address] [place] [address] Phone Care Team Providers [facility] Associate Name Role Phone Jonatan Worley Primary Care Provider [phone] Srinivasa Lee MD Unavailable [phone] Encounter Details Date Type Department Care Team (Latest Contact Info) Description 03/08/2021 11:30 AM CDT Lab [facility] [address] [address] Lab, Cc [facility] [place] Hypogammaglobulinemia (HCC); Anemia of unknown etiology [...] on file Legal Sex Female 11:51 AM CLOTH TESTER Gender Identity Not on file Sexual Orientation [...] st Contact Info) Description 10/18/2024 1:30 PM CLOTH TESTER Office Visit [facility] [address] [address] Srinivasa Lee MD [address] [place], [place] [id number] documented as of this encounter Procedures Procedure [...] 4.0 - 10.0 10*3/uL [facility] HGB 9.3(L) 11.2 - 15.7 g/dL [facility] HCT 28.0(L) 34.1 - 44.9 % [facility] PLT 185 163 - 369 10*3/uL [facility] MPV 10.7 9.4 - 12.4 fL [facility] RBC 3.14(L) 3.93 - 5.22 10*6/uL [facility] MCV 89 79 - 95 fL [facility] MCH 29.6 25.6 - 32.2 pg [facility] MCHC 33.2 32.2 - 36.5 g/dL [facility] RDW 12.7 11.6 - 14.4 % [facility] Absolute Neutrophil Count 5,687 cells/uL [facility] Absolute Seg Count 5,687 1,440 - 6,600 cells/uL [facility] Absolute Lymph Count 1,558 760 - 4,000 cells/uL [facility] Absolute [place] Count 234 160 - 1,200 cells/uL [facility] Absolute Eos Count 312(H) 0 - 300 cells/uL [facility] Segmented Neutrophils 73(H) 36 - 66 % [facility] [place] Lymphocytes 20 19 - 40 % [facility] [place] Monocytes 3(L) 4 - 12 % [facility] [place] Eosinophils 4(H) 0 - 3 % [facility] [place] [facility] WBC Estimate Normal [facility] Platelet Estimate Normal [facility] RBC Morphology Normal [facility] Blood 03/08/2021 11:2 1 AM CDT Narrative [facility] - 03/08/2021 3:38 PM CDT Release to patient->Immediate us Srinivasa Lee MD HEMATOLOGY ORDERABLES Final Result [facility] [address] [place] [address], * (ABNORMAL) CMP (COMPREHENSIVE METABOLIC PANEL) (03/08/2021 11:21 AM CDT) Glucose 250(H) 70 - 105 mg/dL [facility] Blood Urea Nitrogen 37(H) 7 - 25 mg/dL [facility] Creatinine 1.6(H) 0.6 - 1.2 mg/dL [facility] Sodium 141 136 - 145 mEq/L [facility] Potassium 5.4(H) 3.5 - 5.1 mEq/L [facility] Chloride 112(H) 98 - 107 mEq/L [facility] Bicarbonate 24 21 - 31 mEq/L [facility] Total Bilirubin 0.3 0.3 - 1.0 mg/dL [facility] Alk. Phosphatase 66 34 - 104 U/L [facility] Aspartate Aminotransferase 17 13 - 39 U/L [facility] Alanine Aminotransferase 14 7 - 52 U/L [facility] Total Protein 4.9(L) 6.4 - 8.9 g/dL [facility] Albumin 2.9(L) 3.5 - 5.7 g/dL [facility] Calcium 8.6 8.6 - 10.3 mg/dL [facility] Anion Gap 10.4 7.0 - 15.0 mEq/L [facility] Globulin 2.0 2.0 - 3.5 g/dL [facility] EGFR (Non ) 33.0(L) >60.0 ml/min [facility] EGFR () 39.9(L) >60.0 ml/min [facility] Blood 03/08/2021 11:2 1 AM CDT [facility] - 03/08/2021 12:56 PM CDT IS THE PATIENT REQUIRED TO BE FASTING FOR 8 HOURS?->No Release to patient->Immediate us Srinivasa Lee MD CHEMISTRY ORDERABLES Final R esult [facility] [place] [address], [place] [phone] * LACTATE DEHYDROGENASE (LD) (03/08/2021 11:21 AM CDT) LDH 176 140 - 271 U/L [facility] Blood 03/08/2021 11:2 1 AM CDT [facility] - 03/08/2021 12:55 PM CDT Release to patient->Immediate us Srinivasa Lee MD CHEMISTRY ORDERABLES Final R esult [facility] [place] [address], [place] [phone] * FOLIC ACID (FOLATE) (03/08/2021 11:21 AM CDT) Folate 14.72 >=5.90 ng/mL [facility] Blood 03/08/2021 11:2 1 AM CDT [facility] - 03/09/2021 3:34 PM CDT IS THE PATIENT REQUIRED TO BE FASTING FOR 12 HOURS?->No Release to patient->Immediate us Srinivasa Lee MD CHEMISTRY ORDERABLES Final R esult Performing Organization Address City/[facility]/ZIP Co de Phone Number CANC[facility] OPERATOR AUTOMATED PROCESS [facility] [address] [place] [address], [place] [phone] * FERRITIN (03/08/2021 11:21 AM CDT) Ferritin 109 11 - 307 ng/mL [facility] Blood 03/08/2021 11:2 1 AM CDT [facility]PERATOR [facility] - 03/09/2021 3:34 PM CDT Release to patient->Immediate Srinivasa Lee MD CHEMISTRY ORDERABLES Final R esult Performing Organization Address [facility] Co de Phone Number CANCER OPERATOR [facility] [address] [place] [address], [place] [phone] * RETICULOCYTE COUNT (RETIC) (03/08/2021 11:21 AM CDT) Reticulocyte count 1.11 0.50 - 1.70 % [facility] RET-He 34.60 28.20 - 36.60 pg [facility] Comment: RET-He is a direct assessment of incorporation of iron into erythrocyte hemoglobin. It provides an indirect measure of the iron available for new erythropoiesis over past 2-4 days. Blood 03/08/2021 11:2 1 AM CDT [facility] - 03/08/2021 11:35 AM CDT Release to patient->Immediate Srinivasa Lee MD HEMATOLOGY ORDERABLES Final Result Performing Organization Address City/[facility]/ZIP Co de Phone Number [facility] [address] [address], [place] [phone] * (ABNORMAL) IRON W/ IRON BINDING CAPACITY [place] (03/08/2021 11:21 AM CDT) IRON 70 50 - 212 ug/dL [facility] [place] UIBC 164 155 - 355 ug/dL [facility] TIBC 234(L) 261 - 478 ug/dl [facility] % Saturation 30 20 - 50 % [facility] 03/08/2021 11:2 1 AM CDT [facility] - 03/08/2021 12:55 PM CDT Release to patient->Immediate us Srinivasa Lee MD LAB SEND OUTS Final Result [facility] [address] [id number], [place] [phone] * VITAMIN B12 (03/08/2021 11:21 AM CDT) Vitamin B12 384 180 - 914 pg/mL [facility] Blood 03/08/2021 11:2 1 AM CDT Narrative [facility] - 03/09/2021 3:34 PM CDT Release to patient->Immediate Srinivasa Lee MD CHEMISTRY ORDERABLES Final R esult Performing Organization Address City/[facility]/ZIP Co de Phone Number CANCER OPERATOR AUTOMATED PROCESS [facility] [address] [place] [address], [place] [phone] * (ABNORMAL) IMMUNOGLOBULIN IGA, IGG & IGM QUANT (03/08/2021 11:21 AM CDT) IGG 484(L) 635 - 1,741 mg/dL [facility] IGA 181 66 - 433 mg/dL [facility] IGM 54 45 - 281 mg/dL [facility] Blood 03/08/2021 11:2 1 AM CDT Narrative [facility] - 03/09/2021 2:51 PM CDT Release to patient->Immediate us Srinivasa Lee MD CHEMISTRY ORDERABLES Final R esult [facility] OPERATOR AUTOMATED PROCESS [facility] [place] [address], * (ABNORMAL) ELECTROPHORESIS W/ TOTAL PROTEIN SERUM (03/08/2021 11:21 AM CDT) PROTEIN, TOTAL, SERUM 5.0(L) 6.0 - 8.5 G/DL [facility] ALBUMIN 2.4(L) 2.9 - 4.4 G/DL [facility] [id number] 0.3 0.0 - 0.4 G/DL [facility] [id number]-2-[id number] 0.8 0.4 - 1.0 G/DL [facility] BETA GLOBULIN 0.9 0.7 - 1.3 G/DL [facility] GAMMA GLOBULIN 0.6 0.4 - 1.8 G/DL [facility] M-SPIKE NOT OBSERVED NOT OBSERVED G/DL [facility] GLOBULIN, TOTAL 2.6 2.2 - 3.9 G/DL [facility] A/G RATIO 0.9 0.7 - 1.7 [facility] PLEASE NOTE: COMMENT [facility] Comment: PROTEIN ELECTROPHORESIS SCAN WILL FOLLOW VIA COMPUTER, MAIL, OR MUSICAL THERAPIST DELIVERY. PDF . [facility] Blood 03/08/2021 11:2 1 AM CDT Narrative [facility] - 03/09/2021 3:10 PM CDT TESTING PERFORMED AT: [] [address], [address], PHONE: [phone], DAMAGE INSIDE ADJUSTER: PEGGY MARCUS, PHD Release to patient->Immediate Srinivasa Lee MD CHEMISTRY ORDERABLES Final R esult [facility] * IMMUNOFIXATION, SERUM [place] (03/08/2021 11:21 AM CDT) IMMUNOFIXATION RESULT, SERUM COMMENT [facility] Comment:NO MONOCLONALITY DET ECTED. 03/08/2021 11:2 1 AM CDT Narrative [facility] - 03/09/2021 3:10 PM CDT TESTING PERFORMED AT: [[address], [address], PHONE: [phone], DAMAGE INSIDE ADJUSTER: PEGGY MARCUS, PHD Release to patient->Immediate Srinivasa Lee MD LAB SEND OUTS Final Result Performing Organization Address [facility] Co de Phone Number [facility] * (ABNORMAL) FREE KAPPA & LAMBDA LIGHT CHAINS SERUM (03/08/2021 11:21 AM CDT) FREE KAPPA LT CHAINS,S 75.2(H) 3.3 - 19.4 MG/L [facility] FREE LAMBDA LT CHAINS,S 50.0(H) 5.7 - 26.3 MG/L [facility] FREE KAPPA/FREE LAMBDA RATIO LT CHAINS 1.50 0.26 - 1.65 [facility] Blood 03/08/2021 11:2 1 AM CDT Narrative [facility] - 03/09/2021 8:13 PM CDT TESTING PERFORMED AT: [] [address], [address], PHONE: [phone], DAMAGE INSIDE ADJUSTER: PEGGY MARCUS, PHD Release to patient->Immediate Srinivasa Lee MD CHEMISTRY ORDERABLES Final R esult Performing Organization Address [facility]/ZIP Co de Phone Number [facility] * (ABNORMAL) BETA 2 MICROGLOBULIN (03/08/2021 11:21 AM CDT) [id number] 7.26(H) 0.97 - 1.84 mg/L [facility] OPERATOR AUTOMATED PROCESS [facility] Blood 03/08/2021 11:2 1 AM CDT Narrative [facility]ATOR [facility] - 03/09/2021 2:51 PM CDT Release to patient->Immediate us Srinivasa Lee MD CHEMISTRY ORDERABLES Final R esult CANCER OPERATOR AUTOMATED PROCESS OF [facility] [address] [place] [address], documented in this encounter Visit Diagnoses Diagnosis Hypogammaglobulinemia (HCC) Hypogammaglobulinaemia, unspecified Anemia of unknown etiology Anemia, unspecified documented in this encounter Additional Health Concerns Assessment Noted Time PHQ-9 Depression Total Score: 0 03/08/20 21 11:06 AM CDT documented as of this encounter Care Teams Health Center Associate Relationship Specialty Start Date End Date Jonatan Worley [address] [place] [address] PCP - General Family Medicine 07/12/20 Srinivasa Lee MD [address] [place] [phone] Consulting Physician Oncology 07/12/20 documented as of this encounter
--- OUTSIDE RECORDS SUMMARY | 2024-09-14 06:20 | XMS_ITS | Encounter Summary ---
Author Organization [facility] Address [address] [place] [address] Phone Care Team Providers Care Centralized Traffic Control Operator Name Role Phone Jonatan Worley Primary Care Provider Srinivasa Lee MD Unavailable [phone] Encounter Details Date Type Department Care Team (Late st Contact Info) Description 12/06/2022 Telephone [facility] [place] [address] [place] [address] Srinivasa Lee MD [facility] [address] [address] Social History Tobacco Use Types [...] on file Legal Sex Female 11:51 AM ENGINEERING INTERN Gender Identity Not on file Sexual Orientation [...] st Contact Info) Description 10/18/2024 1:30 PM ENGINEERING INTERN Office Visit [facility] [address] [address] Srinivasa Lee MD [address] [place] [address] [place] [address] documented as of this encounter Visit Diagnoses Not on filedocumented in this encounter Additional Health Concerns Assessment Noted Time PHQ-9 Depression Total Score: 0 07/15/20 21 11:06 AM CDT documented as of this encounter Care Teams Centralized Traffic Control Operator Relationship Specialty Start Date End Date Jonatan Worley [address] [place] [address] PCP - General Family Medicine 07/12/20 Srinivasa Lee MD [address] [place] [id number] Consulting Physician Oncology 07/12/20 documented as of this encounter
--- OUTSIDE RECORDS SUMMARY | 2024-09-14 06:20 | XMS_ITS | Encounter Summary ---
Author Organization [facility] Address [address] [place] [address] Phone Care Team Providers Care Mud Worker Name Role Phone Jonatan Worley Primary Care Provider Srinivasa Lee MD Unavailable Reason for Visit * Reason Comments Follow-up Encounter Details Date Type Department Care Team (Latest Contact Info) Description 12/14/2021 9:30 AM CDT Office Visit [facility] [address] [address] Buzz Sales, RICCI Hypogammaglobulinemia (HCC) [...] on file Legal Sex Female 11:51 AM CHILD DEVELOPMENT SPECIALIST Gender Identity Not on file Sexual [...] 1960 [facility] En[facility] Date: 12/14/2021 Care Team: Current Providers PCP: Jonatan Worley Care Team Provider: Srinivasa Lee MD Encounter Provider: Buzz Sales PAC Referring Provider: Jonatan Worley Physician Airplane And Engine Inspector: Buzz Sales PAC HISTORY OF PRESENT ILLNESS: [...] 4 TIMES DAILY ??? ergocalciferol (VITAMIN D) 23766 UNIT Capsule TAKE 1 CAPSULE BY MOUTH [...] 760 - 4,000 cells/uL Final ??? Absolute [place] Count 09/06/2021 929 160 - 1,200 cells/uL [...] st Contact Info) Description 10/18/2024 1:30 PM CHILD DEVELOPMENT SPECIALIST Office Visit [facility] [address] [place] [id number] Srinivasa Lee MD [facility] [address] [place] [address] documented as of this encounter Results * FOLIC ACID (FOLATE) (03/15/2022 9:34 AM CDT) Folate 16.97 >=5.90 ng/mL [facility] Blood 03/15/2022 9:34 AM CDT Narrative [facility] - 03/15/2022 2:16 PM CDT IS THE PATIENT REQUIRED TO BE FASTING FOR 12 HOURS?->No Release to patient->Immediate Buzz Sales PAC CHEMISTRY ORDERABLES Final Result [facility]PER[facility] [address] [place] [address], [place] [phone] * VITAMIN B12 (03/15/2022 9:34 AM CDT) Vitamin B12 319 180 - 914 pg/mL [facility] Blood 03/15/2022 9:34 AM CDT Narrative [facility] - 03/15/2022 2:16 PM CDT Release to patient->Immediate Buzz Sales PAC CHEMISTRY ORDERABLES Final Result [facility] [address] [place] [address], [place] [phone] * FERRITIN (03/15/2022 9:34 AM CDT) Ferritin 64 11 - 307 ng/mL [facility] Blood 03/15/2022 9:34 AM CDT [place]alia [facility] - 03/15/2022 2:16 PM CDT Release to patient->Immediate Buzz Sales PAC CHEMISTRY ORDERABLES Final Result Performing Organization Address City/[facility]/ZIP Co de Phone Number CANCER WHARF OPERATOR [facility] [address] [place] [address], [place] [phone] * (ABNORMAL) IRON W/ IRON BINDING CAPACITY [place] (03/15/2022 9:34 AM CDT) IRON 54 50 - 212 ug/dL [facility] UIBC 197 155 - 355 ug/dL [facility] TIBC 251(L) 261 - 478 ug/dl [facility] % Saturation 22 20 - 50 % [facility] Blood 03/15/2022 9:34 AM CDT [facility] - 03/15/2022 10:46 AM CDT Release to patient->Immediate Buzz Sales PAC LAB SEND OUTS Final Resu lt Performing Organization Address City/[facility]/ZIP Co de Phone Number [facility] [address] [place] [address], [place] [phone] * (ABNORMAL) CMP (COMPREHENSIVE METABOLIC PANEL) (03/15/2022 9:34 AM CDT) Glucose 176(H) 70 - 105 mg/dL [facility] Blood Urea Nitrogen 44(H) 7 - 25 mg/dL [facility] Creatinine 2.6(H) 0.6 - 1.2 mg/dL [facility] Sodium 138 136 - 145 mEq/L [facility] Potassium 4.7 3.5 - 5.1 mEq/L [facility] Chloride 109(H) 98 - 107 mEq/L [facility] Bicarbonate 22 21 - 31 mEq/L [facility] Total Bilirubin 0.3 0.3 - 1.0 mg/dL [facility] Alk. Phosphatase 69 34 - 104 U/L [facility] Aspartate Aminotransferase 15 13 - 39 U/L [facility] Alanine Aminotransferase 11 7 - 52 U/L [facility] Total Protein 5.1(L) 6.4 - 8.9 g/dL [facility] Albumin 3.2(L) 3.5 - 5.7 g/dL [facility] Calcium 8.7 8.6 - 10.3 mg/dL [facility] Anion Gap 11.7 7.0 - 15.0 mEq/L [facility] Globulin 1.9(L) 2.0 - 3.5 g/dL [facility] EGFR 20(L) >60 ml/min/1. 73m2 [facility] Comment: This eGFR is calculated using 2020 CKD-EPI Creatinine equation without race modifier based on the NKF-ASN task force recommendations Blood 03/15/2022 9:34 AM CDT Narrative [facility] - 03/15/2022 10:46 AM CDT IS THE PATIENT REQUIRED TO BE FASTING FOR 8 HOURS?->No Release to patient->Immediate Buzz Sales PAC CHEMISTRY ORDERABLES Final Result [facility] [address] [phone], * (ABNORMAL) COMPLETE BLOOD COUNT (CBC) WITH DIFF (03/15/2022 9:34 AM CDT) WBC 8.7 4.0 - 10.0 10*3/uL [facility] HGB 10.4(L) 11.2 - 15.7 g/dL [facility] HCT 30.5(L) 34.1 - 44.9 % [facility] PLT 186 163 - 369 10*3/uL [facility] MPV 10.9 9.4 - 12.4 fL [facility] RBC 3.47(L) 3.93 - 5.22 10*6/uL [facility] MCV 88 79 - 95 fL [facility] MCH 30.0 25.6 - 32.2 pg [facility] MCHC 34.1 32.2 - 36.5 g/dL [facility] RDW 12.6 11.6 - 14.4 % [facility] Absolute Neutrophil Count 4,982 cells/uL [facility] Absolute Seg Count 4,982 1,440 - 6,600 cells/uL [facility] Absolute Lymph Count 1,923 760 - 4,000 cells/uL [facility] Absolute [place] Count 1,049 160 - 1,200 cells/uL [facility] Absolute Eos Count 699(H) 0 - 300 cells/uL [facility] Absolute Baso Count 87 0 - 100 cells/uL [facility] Segmented Neutrophils 57 36 - 66 % [facility] Lymphocytes 22 19 - 40 % [facility] Monocytes 12 4 - 12 % [facility] Eosinophils 8(H) 0 - 3 % [facility] Basophils 1 0 - 1 % [facility] WBC Estimate Normal [facility] Platelet Estimate Normal [facility] RBC Morphology Normal [facility] Blood 03/15/2022 9:34 AM CDT Narrative [facility] - 03/15/2022 11:41 AM CDT Release to patient->Immediate Buzz Sales PAC HEMATOLOGY ORDERABLES Kym l Result [facility] [address] [place] [address], * IMMUNOGLOBULIN IGA, IGG & IGM QUANT (12/14/2021 9:45 AM CDT) IGG 659 635 - 1,741 mg/dL [facility] IGA 204 66 - 433 mg/dL [facility] IGM 64 45 - 281 mg/dL [facility] Blood 12/14/2021 9:45 AM CDT [facility]CER WHARF OPERATOR [facility] - 12/17/2021 2:18 PM CDT Release to patient->Immediate Buzz Sales PAC CHEMISTRY ORDERABLES Final Result Performing Organization Address [facility]/ZIP Co de Phone Number CANCER WHARF OPERATOR [facility] [address] [place] [address], * FOLIC ACID (FOLATE) (12/14/2021 9:45 AM CDT) Folate 12.52 >=5.90 ng/mL [facility] WHARF OPERATOR [facility] Blood 12/14/2021 9:45 AM CDT [facility] - 12/17/2021 3:24 PM CDT IS THE PATIENT REQUIRED TO BE FASTING FOR 12 HOURS?->No Release to patient->Immediate Buzz [place] PAC CHEMISTRY ORDERABLES Final Result Performing Organization Address [facility] Co de Phone Number CANCER WHARF OPERATOR [facility] [address] [place] [address], * VITAMIN B12 (12/14/2021 9:45 AM CDT) Vitamin B12 360 180 - 914 pg/mL [facility] Blood 12/14/2021 9:45 AM CDT [facility] - 12/17/2021 3:24 PM CDT IS THE PATIENT REQUIRED TO BE FASTING FOR 12 HOURS?->No Release to patient->Immediate Buzz Sales PAC CHEMISTRY ORDERABLES Final Result Performing Organization Address City/[facility]/ZIP Co de Phone Number CANCER WHARF OPERATOR [facility] [address] [place] [address], [place] [phone] * FERRITIN (12/14/2021 9:45 AM CDT) Ferritin 81 11 - 307 ng/mL [facility] Blood 12/14/2021 9:45 AM CDT Azalia [facility] - 12/17/2021 3:24 PM CDT IS THE PATIENT REQUIRED TO BE FASTING FOR 12 HOURS?->No Release to patient->Immediate Buzz Sales PAC CHEMISTRY ORDERABLES Final Result Performing Organization Address City/[facility]/ZIP Co de Phone Number CANCER WHARF OPERATOR [facility] [address] [place] [address], [place] [phone] * (ABNORMAL) IRON W/ IRON BINDING CAPACITY [place] (12/14/2021 9:45 AM CDT) IRON 62 50 - 212 ug/dL [facility] UIBC 188 155 - 355 ug/dL [facility] TIBC 250(L) 261 - 478 ug/dl [facility] % Saturation 25 20 - 50 % [facility] Blood 12/14/2021 9:45 AM CDT [facility] - 12/14/2021 10:38 AM CDT Release to patient->Immediate Buzz Sales PAC LAB SEND OUTS Final Resu lt Performing Organization Address City/[facility]/ZIP Co de Phone Number [facility] [address] [place] [address], [place] [phone] * (ABNORMAL) CMP (COMPREHENSIVE METABOLIC PANEL) (12/14/2021 9:45 AM CDT) Glucose 199(H) 70 - 105 mg/dL [facility] Blood Urea Nitrogen 35(H) 7 - 25 mg/dL [facility] Creatinine 2.0(H) 0.6 - 1.2 mg/dL [facility] Sodium 139 136 - 145 mEq/L [facility] Potassium 5.3(H) 3.5 - 5.1 mEq/L [facility] Chloride 111(H) 98 - 107 mEq/L [facility] Bicarbonate 22 21 - 31 mEq/L [facility] Total Bilirubin 0.4 0.3 - 1.0 mg/dL [facility] Alk. Phosphatase 81 34 - 104 U/L [facility] Aspartate Aminotransferase 15 13 - 39 U/L [facility] Alanine Aminotransferase 12 7 - 52 U/L [facility] Total Protein 5.3(L) 6.4 - 8.9 g/dL [facility] Albumin 3.2(L) 3.5 - 5.7 g/dL [facility] Calcium 8.6 8.6 - 10.3 mg/dL [facility] Anion Gap 11.3 7.0 - 15.0 mEq/L [facility] Globulin 2.1 2.0 - 3.5 g/dL [facility] EGFR 28(L) >60 ml/min/1. 73m2 [facility] Comment: This eGFR is calculated using 2020 CKD-EPI Creatinine equation without race modifier based on the NKF-ASN task force recommendations Blood 12/14/2021 9:45 AM CDT Narrative [facility] - 12/14/2021 10:38 AM CDT Release to patient->Immediate Buzz Sales PAC CHEMISTRY ORDERABLES Final Result [facility] [address] [phone], * (ABNORMAL) COMPLETE BLOOD COUNT (CBC) WITH DIFF (12/14/2021 9:45 AM CDT) WBC 8.3 4.0 - 10.0 10*3/uL [facility] HGB 10.5(L) 11.2 - 15.7 g/dL [facility] HCT 31.9(L) 34.1 - 44.9 % [facility] PLT 201 163 - 369 10*3/uL [facility] MPV 10.8 9.4 - 12.4 fL [facility] RBC 3.66(L) 3.93 - 5.22 10*6/uL [facility] MCV 87 79 - 95 fL [facility] MCH 28.7 25.6 - 32.2 pg [facility] MCHC 32.9 32.2 - 36.5 g/dL [facility] RDW 13.0 11.6 - 14.4 % [facility] Absolute Neutrophil Count 5,491 cells/uL [facility] Absolute Seg Count 5,491 1,440 - 6,600 cells/uL [facility] Absolute Lymph Count 1,498 760 - 4,000 cells/uL [facility] Absolute [place] Count 582 160 - 1,200 cells/uL [facility] Absolute Eos Count 666(H) 0 - 300 cells/uL [facility] Absolute Baso Count 83 0 - 100 cells/uL [facility] Segmented Neutrophils 66 36 - 66 % [facility] Lymphocytes 18(L) 19 - 40 % [facility] Monocytes 7 4 - 12 % [facility] Eosinophils 8(H) 0 - 3 % [facility] Basophils 1 0 - 1 % [facility] WBC Estimate Normal [facility] Platelet Estimate Normal [facility] RBC Morphology Normal [facility] Blood 12/14/2021 9:45 AM CDT Narrative [facility] - 12/14/2021 11:05 AM CDT Release to patient->Immediate Buzz Sales PAC HEMATOLOGY ORDERABLES Kym tineo Result [facility] [address] [place] [address], documented in this encounter Visit Diagnoses Diagnosis [...] documented as of this encounter Care Teams Mud Worker Relationship Specialty Start Date End Date Jonatan Worley [address] [place] [address] PCP - General Family Medicine 07/12/20 Srinivasa Lee MD [address] [place] [address] Consulting Physician Oncology 07/12/20 documented as of this encounter
--- OUTSIDE RECORDS SUMMARY | 2024-09-14 06:20 | XMS_ITS | Encounter Summary ---
Author Organization [facility] Address [address] [place] [address] Phone Care Team Providers Care Health Officer Name Role Phone Jonatan Worley Primary Care Provider [phone] Srinivasa Lee MD Unavailable [phone] Reason for Visit * Reason Comments Follow-up Encounter Details Date Type Department Care Team (Late st Contact Info) Description 09/08/2020 11:15 AM DRY MOLDER Office Visit [facility] [address] [address] Srinivasa Lee MD [address] [facility] [place] [address] [address] Anemia of unknown etiology (Primary [...] file Legal Sex Female 11:51 AM DRY MOLDER Gender Identity Not on file Sexual Orientation Not on file COVID-19 Exposure Response Date Recorded In the last month, have you been in contact with someone who was confirmed or suspected to have Coronavirus / COVID-19? No / Unsure 09/08/2020 11:10 AM DRY MOLDER documented as of this encounter Last Filed Vital Signs Vital Sign Reading Time Taken Comments Blood Pressure 138/84 09/08/2020 11:23 AM DRY MOLDER Pulse 86 09/08/2020 11:23 AM DRY MOLDER Temperature 36.5 ??C (97.7 ??F) 09/08/2020 11:[address] Respiratory Rate 16 09/08/2020 11:23 AM DRY MOLDER Oxygen Saturation 98% 09/08/2020 11:23 AM DRY MOLDER Inhaled Oxygen Concentration - - Weight 88.2 kg (194 lb 8 oz) 09/08/2020 11:23 AM DRY MOLDER Height 170.2 cm (5' 7 ) 09/08/2020 11:23 AM DRY MOLDER Body Mass Index 30.46 09/08/2020 11:23 AM DRY MOLDER documented in this encounter Progress Notes * Srinivasa Lee MD - 09/08/2020 11:15 AM CST Patient: Arely Ernandez Age: 59 y.o. : 1960 [facility] En[facility] Date: 09/08/2020 Care Team: Current Providers PCP: Jonatan Worley Care Team Provider: Srinivasa eLe MD Encounter Provider: Srinivasa Lee MD Referring [...] 4 TIMES DAILY ??? ergocalciferol (VITAMIN D) 84930 UNIT Capsule TAKE 1 CAPSULE BY MOUTH [...] 760 - 4,000 cells/uL Final ??? Absolute [place] Count 07/28/2020 245 160 - 1,200 cells/uL [...] Final ??? RBC Morphology 07/28/2020 Normal Final MOLDER MOLDER documented in this encounter Plan of Treatment Upcoming Encounters Date Type Department Care Team (Late st Contact Info) Description 10/18/2024 1:30 PM DRY MOLDER Office Visit [facility] [address] [phone] Srinivasa Lee MD [address] [place] [address] [place] [address] documented as of this encounter Visit Diagnoses Diagnosis Anemia of unknown etiology- Primary Anemia, unspecified documented in this encounter Additional Health Concerns Assessment Noted Time PHQ-9 Depression Total Score: 0 09/08/19 21 11:26 AM DRY MOLDER documented as of this encounter Care Teams Health Officer Relationship Specialty Start Date End Date Worley Jonatan [address] [place] [address] PCP - General Family Medicine 07/12/20 Srinivasa Lee MD [address] [place] [address] Consulting Physician Oncology 07/12/20 documented as of this encounter
--- OUTSIDE RECORDS SUMMARY | 2024-09-14 06:20 | XMS_ITS | Encounter Summary ---
Author Organization [facility] Address [address] [place] [address] Phone Care Team Providers Care Receiving Team Member Name Role Phone Jonatan Worley Primary Care Provider [phone] Srinivasa Lee MD Unavailable [phone] Reason for Visit * Reason Comments Follow-up Encounter Details Date Type Department Care Team (Latest Contact Info) Description 06/14/2022 9:30 AM CDT Office Visit [facility] [place] [address] [place] [address] Esther Oreilly, FIELD WORKER, ACQUISITIONS ASSISTANT [address] [place] [address] Hypogammaglobulinemia (HCC) (Primary Dx); Anemia of unknown [...] file Legal Sex Female 11:51 AM SOCIAL SERVICE AGENCY DIRECTOR Gender Identity Not on file Sexual [...] y.o. : 1960 Encounter Dept: MED ONC [facility] Encounter Date: 06/14/2022 Care Team: Current Providers [...] All lab results shown below reviewed. MD Eshter Arriola, MICHELA, [facility]- Vitals: Vitals: 06/14/22 0948 BP: 146/76 [...] 4 TIMES DAILY ??? ergocalciferol (VITAMIN D) 34747 UNIT Capsule TAKE 1 CAPSULE BY MOUTH [...] Contact Info) Description 10/18/2024 1:30 PM SOCIAL SERVICE AGENCY DIRECTOR Office Visit [facility] [address] [phone] Srinivasa Lee MD [facility] [address] [address] documented as of this encounter Results * (ABNORMAL) IRON W/ IRON BINDING CAPACITY [place] (09/06/2022 9:12 AM SOCIAL SERVICE AGENCY DIRECTOR) IRON 48(L) 50 - 212 ug/dL [facility] UIBC 189 155 - 355 ug/dL [facility] TIBC 237(L) 261 - 478 ug/dl [facility] % Saturation 20 20 - 50 % [facility] 09/06/2022 9:12 AM SOCIAL SERVICE AGENCY DIRECTOR Narrative [facility] - 09/06/2022 10:06 AM SOCIAL SERVICE AGENCY DIRECTOR Release to patient->Immediate Esther Oreilly APRN, [facility] SEND OUTS F inal Result [facility] [address] [address], * [place] (09/06/2022 9:12 AM SOCIAL SERVICE AGENCY DIRECTOR) Ferritin 49 11 - 307 ng/mL [facility] Blood 09/06/2022 9:12 AM SOCIAL SERVICE AGENCY DIRECTOR Narrative [facility] - 09/06/2022 2:01 PM SOCIAL SERVICE AGENCY DIRECTOR Release to patient->Immediate Esther Oreilly FIELD WORKER, ACQUISITIONS ASSISTANT CHEMISTRY ORDERAB LES Final Result [facility] [address] [place] [address], * (ABNORMAL) CMP (COMPREHENSIVE METABOLIC PANEL) (09/06/2022 9:12 AM SOCIAL SERVICE AGENCY DIRECTOR) Glucose 186(H) 70 - 105 mg/dL [facility] Blood Urea Nitrogen 43(H) 7 - 25 mg/dL [facility] Creatinine 2.6(H) 0.6 - 1.2 mg/dL [facility] Sodium 137 136 - 145 mEq/L [facility] Potassium 4.9 3.5 - 5.1 mEq/L [facility] Chloride 106 98 - 107 mEq/L [facility] Bicarbonate 22 21 - 31 mEq/L [facility] Total Bilirubin 0.3 0.3 - 1.0 mg/dL [facility] Alk. Phosphatase 76 34 - 104 U/L [facility] Aspartate Aminotransferase 14 13 - 39 U/L [facility] Alanine Aminotransferase 11 7 - 52 U/L [facility] Total Protein 5.2(L) 6.4 - 8.9 g/dL [facility] Albumin 3.1(L) 3.5 - 5.7 g/dL [facility] Calcium 8.3(L) 8.6 - 10.3 mg/dL [facility] Anion Gap 13.9 7.0 - 15.0 mEq/L [facility] Globulin 2.1 2.0 - 3.5 g/dL [facility] EGFR 20(L) >60 ml/min/1. 73m2 [facility] Comment: This eGFR is calculated using 2020 CKD-EPI Creatinine equation without race modifier based on the NKF-ASN task force recommendations Blood 09/06/2022 9:12 AM SOCIAL SERVICE AGENCY DIRECTOR Narrative [facility] - 09/06/2022 10:06 AM SOCIAL SERVICE AGENCY DIRECTOR IS THE PATIENT REQUIRED TO BE FASTING FOR 8 HOURS?->No Release to patient->Immediate Esther Oreilly FIELD WORKER, ACQUISITIONS ASSISTANT CHEMISTRY ORDERAB LES Final Result [facility] [address] [place] [address], * (ABNORMAL) COMPLETE BLOOD COUNT (CBC) WITH DIFF (09/06/2022 9:12 AM SOCIAL SERVICE AGENCY DIRECTOR) WBC 9.7 4.0 - 10.0 10*3/uL [facility] HGB 10.1(L) 11.2 - 15.7 g/dL [facility] HCT 29.5(L) 34.1 - 44.9 % [facility] PLT 184 163 - 369 10*3/uL [facility] MPV 11.4 9.4 - 12.4 fL [facility] RBC 3.35(L) 3.93 - 5.22 10*6/uL [facility] MCV 88 79 - 95 fL [facility] MCH 30.1 25.6 - 32.2 pg [facility] MCHC 34.2 32.2 - 36.5 g/dL [facility] RDW 12.4 11.6 - 14.4 % [facility] Absolute Neutrophil Count 6,472 cells/uL [facility] Absolute Seg Count 6,472 1,440 - 6,600 cells/uL [facility] Absolute Lymph Count 2,029 760 - 4,000 cells/uL [facility] Absolute [place] Count 580 160 - 1,200 cells/uL [facility] Absolute Eos Count 580(H) 0 - 300 cells/uL [facility] Segmented Neutrophils 67(H) 36 - 66 % [facility] Lymphocytes 21 19 - 40 % [facility] Monocytes 6 4 - 12 % [facility] Eosinophils 6(H) 0 - 3 % [facility] WBC Estimate Normal [facility] Platelet Estimate Normal [facility] RBC Morphology Normal [facility] Blood 09/06/2022 9:12 AM SOCIAL SERVICE AGENCY DIRECTOR Narrative [facility] - 09/06/2022 11:23 AM SOCIAL SERVICE AGENCY DIRECTOR Release to patient->Immediate Esther Oreilly APRN, ACQUISITIONS ASSISTANT HEMATOLOGY ORDERA BLES Final Result [facility] [place] [address] [place], [place] [address] [phone] documented in this encounter Visit Diagnoses Diagnosis Hypogammaglobulinemia (HCC)- Primary Hypogammaglobulinaemia, unspecified Anemia of unknown etiology Anemia, unspecified Hypogammaglobulinemia (HCC) Hypogammaglobulinaemia, unspecified Anemia of unknown etiology Anemia, unspecified documented in this encounter Additional Health Concerns Assessment Noted Time PHQ-9 Depression Total Score: 0 03/08/20 21 11:06 AM CDT documented as of this encounter Care Teams Receiving Team Member Relationship Specialty Start Date End Date Jonatan Worley [address] [place] [address] PCP - General Family Medicine 07/12/20 Srinivasa Lee MD [address] [place] [address] Consulting Physician Oncology 07/12/20 documented as of this encounter
--- OUTSIDE RECORDS SUMMARY | 2024-09-14 06:20 | XMS_ITS | Encounter Summary ---
Author Organization [facility] Address [address] [place] [address] Phone Care Team Providers Care Gas Plant Repairer Name Role Phone Jonatan Worley Primary Care Provider Srinivasa Lee MD Unavailable Reason for Visit * Reason Comments Follow-up Encounter Details Date Type Department Care Team (Late st Contact Info) Description 09/06/2021 11:15 AM SHIPYARD HELPER Office Visit [facility] [address] [address] Srinivasa Lee MD [address] [facility] [place] [address] [address] Anemia of unknown etiology (Primary [...] on file Legal Sex Female 11:51 AM SHIPYARD HELPER Gender Identity Not on file Sexual Orientation Not on file COVID-19 Exposure Response Date Recorded In the last month, have you been in contact with someone who was confirmed or suspected to have Coronavirus / COVID-19? No / Unsure 09/06/2021 11:11 AM SHIPYARD HELPER documented as of this encounter Last Filed Vital Signs Vital Sign Reading Time Taken Comments Blood Pressure 140/88 09/06/2021 11:34 AM SHIPYARD HELPER Pulse 72 09/06/2021 11:34 AM SHIPYARD HELPER Temperature - - Respiratory Rate - - Oxygen Saturation 97% 09/06/2021 11:34 AM SHIPYARD HELPER Inhaled Oxygen Concentration - - Weight 89 kg (196 lb 4.8 oz) 09/06/2021 11:34 AM SHIPYARD HELPER Height 170.2 cm (5' 7 ) 09/06/2021 11:34 AM SHIPYARD HELPER Body Mass Index 30.74 09/06/2021 11:34 AM SHIPYARD HELPER documented in this encounter Progress Notes * Srinivasa Lee MD - 09/06/2021 11:15 AM CST Images from the original note were not included. Patient: Arely Ernandez Age: 60 y.o. : 1960 [facility] Encounter Date: 09/06/2021 Care Team: Current Providers [...] 4 TIMES DAILY ??? ergocalciferol (VITAMIN D) 35347 UNIT Capsule TAKE 1 CAPSULE BY MOUTH [...] Component Date Value Ref Range Status ??? [id number] 03/08/2021 7.26* 0.97 - 1.84 mg/L Final [...] 2.4* 2.9 - 4.4 G/DL Final ??? [id number] 03/08/2021 0.3 0.0 - 0.4 G/DL Final ??? [id number] 03/08/2021 0.8 0.4 - 1.0 G/DL Final [...] SCAN WILL FOLLOW VIA COMPUTER, MAIL, OR SKIP PIT WORKER DELIVERY. ??? PDF 03/08/2021 . Final ??? [...] 760 - 4,000 cells/uL Final ??? Absolute [place] Count 03/08/2021 234 160 - 1,200 cells/uL [...] Final ??? RBC Morphology 03/08/2021 Normal Final YARD HELPER YARD HELPER documented in this encounter Plan of Treatment Upcoming Encounters Date Type Department Care Team (Late st Contact Info) Description 10/18/2024 1:30 PM SHIPYARD HELPER Office Visit [facility] [address] [address] Srinivasa Lee MD [address] [place] [address] [place] [address] documented as of this encounter Results * VITAMIN B12 (09/06/2021 12:01 PM SHIPYARD HELPER) Vitamin B12 348 180 - 914 pg/mL [facility] Blood 09/06/2021 12:0 1 PM SHIPYARD HELPER Narrative [facility] 09/07/2021 2:53 PM SHIPYARD HELPER Release to patient->Immediate us Srinivasa Lee MD CHEMISTRY ORDERABLES Final R esult Performing Organization Address City/State/[facility] Co de Phone Number [facility] [address] [place] [address], [place] [phone] * (ABNORMAL) IRON W/ IRON BINDING CAPACITY [place] (09/06/2021 12:01 PM SHIPYARD HELPER) IRON 54 50 - 212 ug/dL [facility] UIBC 196 155 - 355 ug/dL [facility] TIBC 250(L) 261 - 478 ug/dl [facility] % Saturation 22 20 - 50 % [facility] 09/06/2021 12:0 1 PM SHIPYARD HELPER Narrative [facility] - 09/06/2021 1:08 PM SHIPYARD HELPER Release to patient->Immediate us Srinivasa Lee MD LAB SEND OUTS Final Result Performing Organization Address [facility] Co de Phone Number [facility] Cancer Care [address] [address], [place] [phone] * RETICULOCYTE COUNT (RETIC) (09/06/2021 12:01 PM SHIPYARD HELPER) [facility] [address] Reticulocyte count 1.23 0.50 - 1.70 % [facility] RET-He 33.70 28.20 - 36.60 pg [facility] Comment: RET-He is a direct assessment of incorporation of iron into erythrocyte hemoglobin. It provides an indirect measure of the iron available for new erythropoiesis over past 2-4 days. Blood 09/06/2021 12:0 1 PM SHIPYARD HELPER [facility] - 09/06/2021 12:20 PM SHIPYARD HELPER Release to patient->Immediate us Srinivasa Lee MD HEMATOLOGY ORDERABLES Final Result Performing Organization Address [facility] Co de Phone Number [facility] Cancer Care [address] [address], [place] [phone] * FERRITIN (09/06/2021 12:01 PM SHIPYARD HELPER) Ferritin 89 11 - 307 ng/mL [facility] Blood 09/06/2021 12:0 1 PM SHIPYARD HELPER Narrative [facility] - 09/07/2021 2:53 PM SHIPYARD HELPER Release to patient->Immediate Srinivasa Lee MD CHEMISTRY ORDERABLES Final R esult Performing Organization Address [facility] Co de Phone Number [facility] [place] [address], [place] [phone] * FOLIC ACID (FOLATE) (09/06/2021 12:01 PM SHIPYARD HELPER) Folate 12.24 >=5.90 ng/mL [facility] Blood 09/06/2021 12:0 1 PM SHIPYARD HELPER Narrative [facility] - 09/07/2021 2:53 PM SHIPYARD HELPER Release to patient->Immediate Srinivasa Lee MD CHEMISTRY ORDERABLES Final R esult Performing Organization Address [facility] de Phone Number [facility] [place] [address], [place] [phone] * (ABNORMAL) COMPLETE BLOOD COUNT (CBC) WITH DIFF (09/06/2021 12:01 PM SHIPYARD HELPER) WBC 10.3(H) 4.0 - 10.0 10*3/uL [facility] HGB 9.7(L) 11.2 - 15.7 g/dL [facility] HCT 28.9(L) 34.1 - 44.9 % [facility] PLT 183 163 - 369 10*3/uL [facility] MPV 10.7 9.4 - 12.4 fL [facility] RBC 3.33(L) 3.93 - 5.22 10*6/uL [facility] MCV 87 79 - 95 fL [facility] MCH 29.1 25.6 - 32.2 pg [facility] MCHC 33.6 32.2 - 36.5 g/dL [facility] RDW 12.5 11.6 - 14.4 % [facility] Absolute Neutrophil Count 6,089 cells/uL [facility] Absolute Seg Count 6,089 1,440 - 6,600 cells/uL [facility] Absolute Lymph Count 2,270 760 - 4,000 cells/uL [facility] Absolute [place] Count 929 160 - 1,200 cells/uL [facility] Absolute Eos Count 929(H) 0 - 300 cells/uL [facility] Absolute Baso Count 103(H) 0 - 100 cells/uL [facility] Segmented Neutrophils 59 36 - 66 % [facility] Lymphocytes 22 19 - 40 % [facility] Monocytes 9 4 - 12 % [facility] Eosinophils 9(H) 0 - 3 % [facility] Basophils 1 0 - 1 % [facility] WBC Estimate High [facility] Platelet Estimate Normal [facility] RBC Morphology Normal [facility] Blood 09/06/2021 12:0 1 PM SHIPYARD HELPER Narrative [facility] - 09/06/2021 2:17 PM SHIPYARD HELPER Release to patient->Immediate Srinivasa Lee MD HEMATOLOGY ORDERABLES Final Result [facility] [address] [place] [address], documented in this encounter Visit Diagnoses Diagnosis Anemia of unknown etiology- Primary Anemia, unspecified Anemia of unknown etiology Anemia, unspecified documented in this encounter Additional Health Concerns Assessment Noted Time PHQ-9 Depression Total Score: 0 03/08/20 21 11:06 AM CDT documented as of this encounter Care Teams Gas Plant Repairer Relationship Specialty Start Date End Date Jonatan Worley [address] [place] [address] PCP - General Family Medicine 07/12/20 Srinivasa Lee MD [address] [place] [address] Consulting Physician Oncology 07/12/20 documented as of this encounter
--- OUTSIDE RECORDS SUMMARY | 2024-09-14 06:20 | XMS_ITS | Encounter Summary ---
Author Organization [employer] Care Team Providers Care Core Blower Operator Name Role Phone Jonatan Worley Primary Care Provider [phone] Srinivasa Lee MD Unavailable [phone] Encounter Details Date Type Department Care Team [...] on file Legal Sex Female 11:51 AM BROADCAST CORRESPONDENT Gender Identity Not on file Sexual Orientation [...] st Contact Info) Description 10/18/2024 1:30 PM BROADCAST CORRESPONDENT Office Visit [facility] [place] [address] [place] [phone] Srinivasa Lee MD [address] [facility] [address] [place] [address] documented as of this encounter Visit Diagnoses Not on filedocumented in this encounter Additional Health Concerns Assessment Noted Time PHQ-9 Depression Total Score: 0 03/08/20 21 11:06 AM CDT documented as of this encounter Care Teams Core Blower Operator Relationship Specialty Start Date End Date Jonatan Worley [address] [place] [address] PCP - General Family Medicine 07/12/20 Srinivasa Lee MD [address] [place] [phone] Consulting Physician Oncology 07/12/20 documented as of this encounter
--- OUTSIDE RECORDS SUMMARY | 2024-09-14 06:20 | XMS_ITS | Encounter Summary ---
Author Organization [facility] Address [address] [place] [address] Phone Care Team Providers Care Caddy Packer Name Role Phone Jonatan Worley Primary Care Provider [phone] Srinivasa Lee MD Unavailable [phone] Encounter Details Date Type Department Care Team (Latest Contact Info) Description 12/06/2022 10:20 AM CDT Lab [facility] [address] [address] Lab, [facility] [place] Hypogammaglobulinemia (HCC); Anemia of unknown [...] on file Legal Sex Female 11:51 AM NOVELTY CANDY MAKER Gender Identity Not on file Sexual [...] st Contact Info) Description 10/18/2024 1:30 PM NOVELTY CANDY MAKER Office Visit [facility] [address] [address] Srinivasa Lee MD [address] [place] [address] [place] [address] [phone] documented as of this encounter Procedures Procedure [...] 10*3/uL [facility] HGB 10.4(L) 11.2 - 15.7 g/dL [facility] HCT 30.7(L) 34.1 - 44.9 % [facility] PLT 194 163 - 369 10*3/uL [facility] MPV 11.1 9.4 - 12.4 fL [facility] RBC 3.52(L) 3.93 - 5.22 10*6/uL [facility] MCV 87 79 - 95 fL [facility] MCH 29.5 25.6 - 32.2 pg [facility] [place] MCHC 33.9 32.2 - 36.5 g/dL [facility] RDW 12.4 11.6 - 14.4 % [facility] Absolute Neutrophil Count 9,485 cells/uL [facility] Absolute Seg Count 9,485(H) 1,440 - 6,600 cells/uL [facility] Absolute Lymph Count 973 760 - 4,000 cells/uL [facility] Absolute [place] Count 608 160 - 1,200 cells/uL [facility] Absolute Eos Count 1,094(H) 0 - 300 cells/uL [facility] Segmented Neutrophils 78(H) 36 - 66 % [facility] Lymphocytes 8(L) 19 - 40 % [facility] Monocytes 5 4 - 12 % [facility] Eosinophils 9(H) 0 - 3 % [facility] WBC Estimate High [facility] Platelet Estimate Normal [facility] RBC Morphology Normal [facility] Blood 12/06/2022 10:1 8 AM CDT Narrative [facility] - 12/06/2022 1:29 PM CDT Release to patient->Immediate Buzz Sales PAC HEMATOLOGY ORDERABLES Kym l Result [facility] [address] [place] [address], * (ABNORMAL) CMP (COMPREHENSIVE METABOLIC PANEL) (12/06/2022 10:18 AM CDT) Glucose 230(H) 70 - 105 mg/dL [facility] Blood Urea Nitrogen 53(H) 7 - 25 mg/dL [facility] Creatinine 2.9(H) 0.6 - 1.2 mg/dL [facility] Sodium 138 136 - 145 mEq/L [facility] Potassium 5.6(HH) 3.5 - 5.1 mEq/L [facility] Comment: Critical Result reported to Ely Lai on 12/06/2022 11:13 by ? Kaur Waller. Results were read back to caller. Chloride 109(H) 98 - 107 mEq/L [facility] Bicarbonate 22 21 - 31 mEq/L [facility] Total Bilirubin 0.4 0.3 - 1.0 mg/dL [facility] Alk. Phosphatase 64 34 - 104 U/L [facility] Aspartate Aminotransferase 16 13 - 39 U/L [facility] Alanine Aminotransferase 11 7 - 52 U/L [facility] Total Protein 5.8(L) 6.4 - 8.9 g/dL [facility] Albumin 3.5 3.5 - 5.7 g/dL [facility] Calcium 8.9 8.6 - 10.3 mg/dL [facility] Anion Gap 12.6 7.0 - 15.0 mEq/L [facility] Globulin 2.3 2.0 - 3.5 g/dL [facility] EGFR 18(L) >60 ml/min/1. 73m2 [facility] Comment: This eGFR is calculated using 2020 CKD-EPI Creatinine equation without race modifier based on the NKF-ASN task force recommendations Blood 12/06/2022 10:1 8 AM CDT [facility] - 12/06/2022 11:13 AM CDT Release to patient->Immediate IS THE PATIENT REQUIRED TO BE FASTING FOR 8 HOURS?->No Buzz Sales PAC CHEMISTRY ORDERABLES Final Result Performing Organization Address [facility] Co de Phone Number [facility] [place] [address], * LACTATE DEHYDROGENASE (LD) (12/06/2022 10:18 AM CDT) LDH 162 140 - 271 U/L [facility] Blood 12/06/2022 10:1 8 AM CDT [facility] - 12/06/2022 11:12 AM CDT Release to patient->Immediate [facility] PAC CHEMISTRY ORDERABLES Final Result Performing Organization Address City/[facility]/ZIP Co de Phone Number [facility] [place] [address], * (ABNORMAL) IRON W/ IRON BINDING CAPACITY [place] (12/06/2022 10:18 AM CDT) IRON 49(L) 50 - 212 ug/dL [facility] UIBC 212 155 - 355 ug/dL [facility] TIBC 261 261 - 478 ug/dl [facility] % Saturation 19(L) 20 - 50 % [facility] Blood 12/06/2022 10:1 8 AM CDT [facility] - 12/06/2022 11:12 AM CDT Release to patient->Immediate us Buzz Sales PAC LAB SEND OUTS Final Resu lt [facility] [address] [address], [place] [phone] * FERRITIN (12/06/2022 10:18 AM CDT) Ferritin 52 11 - 307 ng/mL [facility] Blood 12/06/2022 10:1 8 AM CDT [facility] 12/06/2022 2:36 PM CDT Release to patient->Immediate us Buzz Sales PAC CHEMISTRY ORDERABLES Final Result Performing Organization Address City/[facility]/ZIP Co de Phone Number [facility] Cancer Care [facility] [address] [place] [address], [place] [phone] * VITAMIN B12 (12/06/2022 10:18 AM CDT) Vitamin B12 265 180 - 914 pg/mL [facility] Blood 12/06/2022 10:1 8 AM CDT [facility] - 12/06/2022 2:36 PM CDT Release to patient->Immediate us Buzz Sales PAC CHEMISTRY ORDERABLES Final Result [facility] [address] [place] [address], [place] [phone] * IMMUNOGLOBULIN IGA, IGG & IGM QUANT (12/06/2022 10:18 AM CDT) IGG 762 635 - 1,741 mg/dL [facility] IGA 210 66 - 433 mg/dL [facility] IGM 57 45 - 281 mg/dL [facility] Blood 12/06/2022 10:1 8 AM CDT Narrative [facility] - 12/06/2022 2:24 PM CDT Release to patient->Immediate Buzz Sales PAC CHEMISTRY ORDERABLES Final Result [facility] [address] [place] [address], * (ABNORMAL) ELECTROPHORESIS W/ TOTAL PROTEIN SERUM (12/06/2022 10:18 AM CDT) PROTEIN, TOTAL, SERUM 5.9(L) 6.0 - 8.5 G/DL [facility] ALBUMIN 3.1 2.9 - 4.4 G/DL [facility] [id number] 0.3 0.0 - 0.4 G/DL [facility] [id number] 0.8 0.4 - 1.0 G/DL [facility] [...] SCAN WILL FOLLOW VIA COMPUTER, MAIL, OR CRUTCH MAKER DELIVERY. PDF . [facility] Blood 12/06/2022 10:1 8 AM CDT Narrative [facility] - 12/09/2022 3:09 PM CDT TEST[facility] PERFORMED AT: [] [facility] [address] [place], [address], PHONE: [phone], SELECT BANKER: PEGGY MARCUS, PHD Release to patient->Immediate Buzz Sales PAC CHEMISTRY ORDERABLES Final Result Performing Organization Address City/[facility]/ZIP Co de Phone Number [facility] * IMMUNOFIXATION, SERUM [place] (12/06/2022 10:18 AM CDT) IMMUNOFIXATION RESULT, SERUM COMMENT [facility] Comment:NO MONOCLONALITY DET ECTED. 12/06/2022 10:1 8 AM CDT Narrative [facility] - 12/09/2022 1:08 PM CDT TEST[facility] PERFORMED AT: [] [facility], [address] [place], [address], PHONE: [phone], SELECT BANKER: PEGGY MARCUS, PHD Release to patient->Immediate Buzz Sales [facility] SEND OUTS Final Resu lt Performing Organization Address City/[facility]/ZIP Co de Phone Number [facility] * (ABNORMAL) FREE KAPPA & LAMBDA LIGHT CHAINS SERUM (12/06/2022 10:18 AM CDT) FREE KAPPA LT CHAINS,S 108.7(H) 3.3 - 19.4 MG/L [facility] FREE LAMBDA LT CHAINS,S 49.1(H) 5.7 - 26.3 MG/L [facility] FREE KAPPA/FREE LAMBDA RATIO LT CHAINS 2.21(H) 0.26 - 1.65 [facility] Blood 12/06/2022 10:1 8 AM CDT Narrative [facility] - 12/09/2022 8:14 PM CDT TEST[facility] PERFORMED AT: [] [facility], [address] [place], [address], PHONE: [phone], SELECT BANKER: PEGGY MARCUS, PHD Release to patient->Immediate Buzz Sales PAC CHEMISTRY ORDERABLES Final Result [facility] * (ABNORMAL) BETA 2 MICROGLOBULIN (12/06/2022 10:18 AM CDT) [id number] 9.72(H) 0.97 - 1.84 mg/L [facility] Blood 12/06/2022 10:1 8 AM CDT Narrative [facility] - 12/06/2022 2:06 PM CDT Release to patient->Immediate Buzz Sales PAC CHEMISTRY ORDERABLES Final Result Performing Organization Address City/[facility] Co de Phone Number [facility] [address] [place] [address], documented in this encounter Visit Diagnoses Diagnosis Hypogammaglobulinemia (HCC) Hypogammaglobulinaemia, unspecified Anemia of unknown etiology Anemia, unspecified documented in this encounter Additional Health Concerns Assessment Noted Time PHQ-9 Depression Total Score: 0 03/08/20 21 11:06 AM CDT documented as of this encounter Care Teams Caddy Packer Relationship Specialty Start Date End Date Jonatan Worley [address] [place] [address] PCP - General Family Medicine 07/12/20 Srinivasa Lee MD [address] [place] [address] Consulting Physician Oncology 07/12/20 documented as of this encounter
--- OUTSIDE RECORDS SUMMARY | 2024-09-14 06:20 | XMS_ITS | Encounter Summary ---
Author Organization [employer] Care Team Providers Care Salesman/Owner Name Role Phone Jonatan Worley Primary Care Provider [phone] Srinivasa Lee MD Unavailable [phone] Encounter Details Date Type Department Care Team [...] on file Legal Sex Female 11:51 AM COMMERCIAL REAL ESTATE PARALEGAL Gender Identity Not on file Sexual Orientation Not on file COVID-19 Exposure Response Date Recorded In the last 10 days, have yo u been in contact with someone who was confirmed or suspected to have Coronavirus/COVID-19? No / Unsure 09/06/2022 9:09 AM COMMERCIAL REAL ESTATE PARALEGAL documented as of this encounter Plan of Treatment Upcoming Encounters Date Type Department Care Team (Late st Contact Info) Description 10/18/2024 1:30 PM COMMERCIAL REAL ESTATE PARALEGAL Office Visit [facility] [address] [address] Srinivasa Lee MD [facility] [place] [address] [address] documented as of this encounter Visit Diagnoses Not on filedocumented in this encounter Additional Health Concerns Assessment Noted Time PHQ-9 Depression Total Score: 0 03/08/20 21 11:06 AM CDT documented as of this encounter Care Teams Salesman/Owner Relationship Specialty Start Date End Date Meir Jonatan [address] [facility] [place] [place] [address] PCP - General Family Medicine 07/12/20 Srinivasa Lee MD [address] [place] [address] Consulting Physician Oncology 07/12/20 documented as of this encounter
--- OUTSIDE RECORDS SUMMARY | 2024-09-14 06:20 | XMS_ITS | Encounter Summary ---
Author Organization [employer] Care Team Providers Care Spring Internship Name Role Phone Jonatan Worley Primary Care Provider [phone] Srinivasa Lee MD Unavailable [phone] Encounter Details Date Type Department Care Team [...] on file Legal Sex Female 11:51 AM DIETARY MANAGER Gender Identity Not on file Sexual [...] st Contact Info) Description 10/18/2024 1:30 PM DIETARY MANAGER Office Visit [facility] [address] [address] Srinivasa Lee MD [facility] [place] [address] [address] documented as of this encounter Visit Diagnoses Not on filedocumented in this encounter Additional Health Concerns Assessment Noted Time PHQ-9 Depression Total Score: 0 03/08/20 21 11:06 AM CDT documented as of this encounter Care Teams [employer] Relationship Specialty Start Date End Date Jonatan Worley [address] [place] [address] PCP - General Family Medicine 07/12/20 Srinivasa Lee MD [address] [place] [address] Consulting Physician Oncology 07/12/20 documented as of this encounter
--- OUTSIDE RECORDS SUMMARY | 2024-09-14 06:20 | XMS_ITS | Encounter Summary ---
Author Organization [employer] Care Team Providers Care Pipe Insulator Helper Name Role Phone Jonatan Worley Primary Care Provider [phone] Srinivasa Lee MD Unavailable [phone] Encounter Details Date Type Department Care Team [...] on file Legal Sex Female 11:51 AM STRIP PRESSER Gender Identity Not on file Sexual Orientation [...] st Contact Info) Description 10/18/2024 1:30 PM STRIP PRESSER Office Visit [facility] [address] [address] Srinivasa Lee MD [facility] [place] [address] [id number] documented as of this encounter Visit Diagnoses Not on filedocumented in this encounter Additional Health Concerns Assessment Noted Time PHQ-9 Depression Total Score: 0 03/08/20 21 11:06 AM CDT documented as of this encounter Care Teams Pipe Insulator Helper Relationship Specialty Start Date End Date Jonatan Worley [address] [place] [address] PCP - General Family Medicine 07/12/20 Srinivasa Lee MD [address] [place] [address] Consulting Physician Oncology 07/12/20 documented as of this encounter
--- OUTSIDE RECORDS SUMMARY | 2024-09-14 06:20 | XMS_ITS | Encounter Summary ---
Author Organization [facility] Address [address] [place] [address] Phone Care Team Providers Care Software Release Manager Name Role Phone Jonatan Worley Primary Care Provider [phone] Srinivasa Lee MD Unavailable Reason for Visit * Reason Comments New Patient Encounter Details Date Type Department Care Team (Late st Contact Info) Description 07/28/2020 11:30 AM TOMATO GRADER Office Visit [facility] [address] [address] Srinivasa Lee MD [facility] [address] [address] Anemia of unknown etiology (Primary [...] on file Legal Sex Female 11:51 AM TOMATO GRADER Gender Identity Not on file Sexual Orientation Not on file COVID-19 Exposure Response Date Recorded In the last month, have you been in contact with someone who was confirmed or suspected to have Coronavirus / COVID-19? No / Unsure 07/28/2020 10:59 AM TOMATO GRADER documented as of this encounter Last Filed Vital Signs Vital Sign Reading Time Taken Comments Blood Pressure 158/86 07/28/2020 11:44 AM TOMATO GRADER Pulse 84 07/28/2020 11:44 AM TOMATO GRADER Temperature 36.2 ??C (97.2 ??F) 07/28/2020 11:[address] Respiratory Rate 16 07/28/2020 11:44 AM TOMATO GRADER Oxygen Saturation 98% 07/28/2020 11:44 AM TOMATO GRADER Inhaled Oxygen Concentration - - Weight 88 kg (194 lb) 07/28/2020 11:44 AM TOMATO GRADER Height 170.2 cm (5' 7 ) 07/28/2020 11:44 AM TOMATO GRADER Body Mass Index 30.38 07/28/2020 11:44 AM TOMATO GRADER documented in this encounter Progress Notes * [...] 4 TIMES DAILY ??? ergocalciferol (VITAMIN D) 65214 UNIT Capsule TAKE 1 CAPSULE BY MOUTH [...] No results found for any previous visit. TO GRADER TO GRADER documented in this encounter Plan of Treatment Upcoming Encounters Date Type Department Care Team (Late st Contact Info) Description 10/18/2024 1:30 PM TOMATO GRADER Office Visit [facility] [address] [address] Srinivasa Lee MD [facility] [place] [address] documented as of this encounter Results * (ABNORMAL) IMMUNOGLOBULIN IGA, IGG & IGM QUANT (07/28/2020 12:05 PM TOMATO GRADER) IGG 627(L) 635 - 1,741 mg/dL [facility] IGA 180 66 - 433 mg/dL [facility] IGM 55 45 - 281 mg/dL [facility] Blood 07/28/2020 12:0 5 PM TOMATO GRADER Narrative [facility] - 07/31/2020 1:40 PM TOMATO GRADER Release to patient->Immediate us Srinivasa Lee MD CHEMISTRY ORDERABLES Final R esult Performing Organization Address City/[facility]/ZIP Co de Phone Number [facility] [address] [place] [address], [place] [phone] * HAPTOGLOBIN (07/28/2020 12:05 PM TOMATO GRADER) HAPTO 85 30 - 200 mg/dL [facility] Blood 07/28/2020 12:0 5 PM TOMATO GRADER [facility] - 08/01/2020 1:44 PM TOMATO GRADER Release to patient->Immediate Srinivasa Lee MD CHEMISTRY ORDERABLES Final R esult Performing Organization Address City/[facility]/ZIP Co de Phone Number [facility] [address] [place] [address], [place] [phone] * VITAMIN B12 (07/28/2020 12:05 PM TOMATO GRADER) Vitamin B12 345 180 - 914 pg/mL [facility] Blood 07/28/2020 12:0 5 PM TOMATO GRADER [facility] - 07/31/2020 2:02 PM TOMATO GRADER Release to patient->Immediate Srinivasa Lee MD CHEMISTRY ORDERABLES Final R esult Performing Organization Address City/[facility]/ZIP Co de Phone Number [facility] [place] [address] [place] [address], [place] [phone] * FOLIC ACID (FOLATE) (07/28/2020 12:05 PM TOMATO GRADER) Folate 13.32 >=5.90 ng/mL [facility] Blood 07/28/2020 12:0 5 PM TOMATO GRADER [facility] 07/31/2020 2:02 PM TOMATO GRADER IS THE PATIENT REQUIRED TO BE FASTING FOR 12 HOURS?->No Release to patient->Immediate Srinivasa Lee MD CHEMISTRY ORDERABLES Final R esult Performing Organization Address [facility]/ZIP Co de Phone Number [facility] [place] [address], [place] [phone] * RETICULOCYTE COUNT (RETIC) (07/28/2020 12:05 PM TOMATO GRADER) Reticulocyte count 1.01 0.50 - 1.70 % [facility] RET-He 33.80 28.20 - 36.60 pg [facility] Comment: RET-He is a direct assessment of incorporation of iron into erythrocyte hemoglobin. It provides an indirect measure of the iron available for new erythropoiesis over past 2-4 days. Blood 07/28/2020 12:0 5 PM TOMATO GRADER [facility] - 07/28/2020 12:11 PM TOMATO GRADER Release to patient->Immediate Srinivasa Lee MD HEMATOLOGY ORDERABLES Final Result Performing Organization Address [facility] Co de Phone Number [facility] [place] [address], [place] [phone] * LACTATE DEHYDROGENASE (LD) (07/28/2020 12:05 PM TOMATO GRADER) LDH 176 140 - 271 U/L [facility] Blood 07/28/2020 12:0 5 PM TOMATO GRADER [facility] - 07/28/2020 12:45 PM TOMATO GRADER Release to patient->Immediate Srinivasa Lee MD CHEMISTRY ORDERABLES Final R esult Performing Organization Address [facility] Co de Phone Number [facility] Cancer [address] [address], [place] [phone] * (ABNORMAL) COMPLETE BLOOD COUNT (CBC) WITH DIFF (07/28/2020 12:05 PM TOMATO GRADER) WBC 8.2 4.0 - 10.0 10*3/uL [facility] HGB 10.7(L) 11.2 - 15.7 g/dL [facility] HCT 31.2(L) 34.1 - 44.9 % [facility] PLT 172 163 - 369 10*3/uL [facility] MPV 10.3 9.4 - 12.4 fL [facility] RBC 3.66(L) 3.93 - 5.22 10*6/uL [facility] MCV 85 79 - 95 fL [facility] MCH 29.2 25.6 - 32.2 pg [facility] MCHC 34.3 32.2 - 36.5 g/dL [facility] RDW 12.4 11.6 - 14.4 % [facility] Absolute Neutrophil Count 5,392 cells/uL [facility] Absolute Seg Count 5,392 1,440 - 6,600 cells/uL [facility] Absolute Lymph Count 1,797 760 - 4,000 cells/uL [facility] Absolute Stone Count 245 160 - 1,200 cells/uL [facility] Absolute Eos Count 735(H) 0 - 300 cells/uL [facility] Segmented Neutrophils 66 36 - 66 % [facility] Lymphocytes 22 19 - 40 % [facility] Monocytes 3(L) 4 - 12 % [facility] Eosinophils 9(H) 0 - 3 % [facility] WBC Estimate Normal [facility] Platelet Estimate Normal [facility] RBC Morphology Normal [facility] Blood 07/28/2020 12:0 5 PM TOMATO GRADER Narrative [facility] - 07/28/2020 1:49 PM TOMATO GRADER Release to patient->Immediate us Srinivasa Lee MD HEMATOLOGY ORDERABLES Final Result [facility] [address] [place] [address], documented in this encounter Visit Diagnoses Diagnosis Anemia of unknown etiology- Primary Anemia, unspecified Hypogammaglobulinemia (HCC) Hypogammaglobulinaemia, unspecified Anemia of unknown etiology Anemia, unspecified Hypogammaglobulinemia (HCC) Hypogammaglobulinaemia, unspecified documented in this encounter Additional Health Concerns Assessment Noted Time PHQ-9 Depression Total Score: 0 07/28/20 20 11:51 AM TOMATO GRADER documented as of this encounter Care Teams Software Release Manager Relationship Specialty Start Date End Date Jonatan Worley [address] [place] [address] PCP - General Family Medicine 07/12/20 Srinivasa Lee MD [address] [place] [address] Consulting Physician Oncology 07/12/20 documented as of this encounter
--- OUTSIDE RECORDS SUMMARY | 2024-09-14 06:20 | XMS_ITS | Encounter Summary ---
Author Organization [facility] Address [address] [place] [address] Phone Care Team Providers Care Environmental Resource Specialist Name Role Phone Jonatan Worley Primary Care Provider [phone] Srinivasa Lee MD Unavailable [phone] Encounter Details Date Type Department Care Team (Latest Contact Info) Description 09/06/2022 9:15 AM TEACHING YOUNG Lab [facility] [address] [address] Lab, [facility] Hypogammaglobulinemia (HCC); Anemia of unknown etiology [...] on file Legal Sex Female 11:51 AM TEACHING YOUNG Gender Identity Not on file Sexual Orientation Not on file COVID-19 Exposure Response Date Recorded In the last 10 days, have yo u been in contact with someone who was confirmed or suspected to have Coronavirus/COVID-19? No / Unsure 09/06/2022 9:09 AM TEACHING YOUNG documented as of this encounter Plan of Treatment Upcoming Encounters Date Type Department Care Team (Late st Contact Info) Description 10/18/2024 1:30 PM TEACHING YOUNG Office Visit [facility] [place] [address] [place] [address] Srinivasa Lee MD [address] [place], [place] [address] documented as of this encounter Procedures Procedure Name Priority Date/Time Associated Diagnosis Comments IRON W/ IRON BINDING CAPACITY [place] Routine 09/06/2022 9:12 AM TEACHING YOUNG Hypogammaglobulinem ia (HCC) Anemia of unknown etiology FERRITIN Routine 09/06/2022 9:12 AM TEACHING YOUNG Hypogammaglobulinem ia (HCC) Anemia of unknown etiology CMP (COMPREHENSIVE METABOLIC PANEL) Routine 09/06/2022 9:12 AM TEACHING YOUNG Hypogammaglobulinem ia (HCC) Anemia of unknown etiology COMPLETE BLOOD COUNT (CBC) WITH DIFF Routine 09/06/2022 9:12 AM TEACHING YOUNG Hypogammaglobulinem ia (HCC) Anemia of unknown etiology documented in this encounter Results * (ABNORMAL) COMPLETE BLOOD COUNT (CBC) WITH DIFF (09/06/2022 9:12 AM TEACHING YOUNG) WBC 9.7 4.0 - 10.0 10*3/uL [facility] HGB 10.1(L) 11.2 - 15.7 g/dL [facility] HCT 29.5(L) 34.1 - 44.9 % [facility] PLT 184 163 - 369 10*3/uL [facility] MPV 11.4 9.4 - 12.4 fL [facility] RBC 3.35(L) 3.93 - 5.22 10*6/uL [facility] MCV 88 79 - 95 fL [facility] MCH 30.1 25.6 - 32.2 pg [facility] MCHC 34.2 32.2 - 36.5 g/dL [facility] RDW 12.4 11.6 - 14.4 % [facility] Absolute Neutrophil Count 6,472 cells/uL [facility] Absolute Seg Count 6,472 1,440 - 6,600 cells/uL [facility] Absolute Lymph Count 2,029 760 - 4,000 cells/uL [facility] Absolute [place] Count 580 160 - 1,200 cells/uL [facility] Absolute Eos Count 580(H) 0 - 300 cells/uL [facility] Segmented Neutrophils 67(H) 36 - 66 % [facility] Lymphocytes 21 19 - 40 % [facility] Monocytes 6 4 - 12 % [facility] Eosinophils 6(H) 0 - 3 % [facility] WBC Estimate Normal [facility] Platelet Estimate Normal [facility] RBC Morphology Normal [facility] Blood 09/06/2022 9:12 AM TEACHING YOUNG Narrative [facility] - 09/06/2022 11:23 AM TEACHING YOUNG Release to patient->Immediate Esther Oreilly COMPOUND FINISHER, CLINICAL RESEARCH MONITOR HEMATOLOGY ORDERA BLES Final Result [facility] [address] [place] [address], * (ABNORMAL) CMP (COMPREHENSIVE METABOLIC PANEL) (09/06/2022 9:12 AM TEACHING YOUNG) Glucose 186(H) 70 - 105 mg/dL [facility] Blood Urea Nitrogen 43(H) 7 - 25 mg/dL [facility] Creatinine 2.6(H) 0.6 - 1.2 mg/dL [facility] Sodium 137 136 - 145 mEq/L [facility] Potassium 4.9 3.5 - 5.1 mEq/L [facility] Chloride 106 98 - 107 mEq/L [facility] Bicarbonate 22 21 - 31 mEq/L [facility] Total Bilirubin 0.3 0.3 - 1.0 mg/dL [facility] Alk. Phosphatase 76 34 - 104 U/L [facility] Aspartate Aminotransferase 14 13 - 39 U/L [facility] Alanine Aminotransferase 11 7 - 52 U/L [facility] Total Protein 5.2(L) 6.4 - 8.9 g/dL [facility] Albumin 3.1(L) 3.5 - 5.7 g/dL [facility] Calcium 8.3(L) 8.6 - 10.3 mg/dL [facility] Anion Gap 13.9 7.0 - 15.0 mEq/L [facility] Globulin 2.1 2.0 - 3.5 g/dL [facility] EGFR 20(L) >60 ml/min/1. 73m2 [facility] Comment: This eGFR is calculated using 2020 CKD-EPI Creatinine equation without race modifier based on the NKF-ASN task force recommendations Blood 09/06/2022 9:12 AM TEACHING YOUNG [facility] - 09/06/2022 10:06 AM TEACHING YOUNG IS THE PATIENT REQUIRED TO BE FASTING FOR 8 HOURS?->No Release to patient->Immediate Esther Oreilly COMPOUND FINISHER, CLINICAL RESEARCH MONITOR CHEMISTRY ORDERAB LES Final Result [facility] Cancer [facility] [address] [place] [address], [place] [phone] * FERRITIN (09/06/2022 9:12 AM TEACHING YOUNG) Pathologist [facility] Ferritin 49 11 - 307 ng/mL [facility] Blood 09/06/2022 9:12 AM TEACHING YOUNG Narrative [facility] - 09/06/2022 2:01 PM TEACHING YOUNG Release to patient->Immediate Esther Oreilly COMPOUND FINISHER, CLINICAL RESEARCH MONITOR CHEMISTRY ORDERAB LES Final Result [facility] [address] [place] [address], [place] [phone] * (ABNORMAL) IRON W/ IRON BINDING CAPACITY [place] (09/06/2022 9:12 AM TEACHING YOUNG) IRON 48(L) 50 - 212 ug/dL [facility] UIBC 189 155 - 355 ug/dL [facility] TIBC 237(L) 261 - 478 ug/dl [facility] % Saturation 20 20 - 50 % [facility] 09/06/2022 9:12 AM TEACHING YOUNG Narrative [facility] - 09/06/2022 10:06 AM TEACHING YOUNG Release to patient->Immediate Esther Oreilly APRN, CLINICAL RESEARCH MONITOR LAB SEND OUTS F inal Result [facility] [address] [place], [place] [address] [phone] documented in this encounter Visit Diagnoses Diagnosis Hypogammaglobulinemia (HCC) Hypogammaglobulinaemia, unspecified Anemia of unknown etiology Anemia, unspecified documented in this encounter Additional Health Concerns Assessment Noted Time PHQ-9 Depression Total Score: 0 03/08/20 21 11:06 AM CDT documented as of this encounter Care Teams Environmental Resource Specialist Relationship Specialty Start Date End Date Jonatan Worley [address] [place] [address] PCP - General Family Medicine 07/12/20 Srinivasa Lee MD [address] [place] [address] Consulting Physician Oncology 07/12/20 documented as of this encounter
--- OUTSIDE RECORDS SUMMARY | 2024-09-14 06:20 | XMS_ITS | Encounter Summary ---
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 Gender Identity Not on file Sexual Orientation [...] : 1960 Encounter Dept: [facility] Encounter Date: 12/06/2022 Care Team: Current Providers PCP: Jonatan Worley Care Team Provider: Srinivasa Lee MD Encounter Provider: Buzz Sales PAC Referring Provider: not found Physician Hedis Registered Nurse Rn: Buzz Sales PAC HISTORY OF PRESENT ILLNESS: [...] EYE 4 TIMES DAILY ergocalciferol (VITAMIN D) 21670 UNIT Capsule TAKE 1 CAPSULE BY MOUTH [...] 2,029 760 - 4,000 cells/uL Final Absolute [place] Count 09/06/2022 580 160 - 1,200 cells/uL [...] st Contact Info) Description 10/18/2024 1:30 PM OYSTER BUYER Office Visit [facility] [address] [phone] Srinivasa Lee MD [address] [place] [address] [facility] [address] [place], [place] [id number] documented as of this encounter Results * VITAMIN B12 (03/07/2023 9:32 AM CDT) Vitamin B12 267 180 - 914 pg/mL [facility] LAT[facility] SET UP PERSON [facility] Blood 03/07/2023 9:32 AM CDT Narrative [facility]/10/2023 2:37 PM CDT Release to patient->Immediate Buzz Sales PAC CHEMISTRY ORDERABLES Final Result [facility] LATHE SET UP PERSON [facility] [address] [place] [address], * FERRITIN (03/07/2023 9:32 AM CDT) Ferritin 49 11 - 307 ng/mL [facility] Blood 03/07/2023 9:32 AM CDT Narrative [facility] LATHE SET UP PERSON [facility] - 03/10/2023 2:37 PM CDT Release to patient->Immediate us Buzz Sales PAC CHEMISTRY ORDERABLES Final Result [facility]ER LATHE SET UP PERSON [facility] [place] [address], [place] [phone] * (ABNORMAL) IRON W/ IRON BINDING CAPACITY [place] (03/07/2023 9:32 AM CDT) IRON 44(L) 50 - 212 ug/dL [facility] UIBC 205 155 - 355 ug/dL [facility] TIBC 249(L) 261 - 478 ug/dl [facility] % Saturation 18(L) 20 - 50 % [facility] Blood 03/07/2023 9:[address] [facility] - 03/07/2023 11:14 AM CDT Release to patient->Immediate us Buzz Sales PAC LAB SEND OUTS Final Resu lt Performing Organization Address [facility] Co de Phone Number [facility] [address] [place] [address], * LACTATE DEHYDROGENASE (LD) (03/07/2023 9:32 AM CDT) LDH 144 140 - 271 U/L [facility] Blood 03/07/2023 9:[address] [facility] - 03/07/2023 11:14 AM CDT Release to patient->Immediate us Buzz Sales PAC CHEMISTRY ORDERABLES Final Result Performing Organization Address [facility] Co de Phone Number [facility] [address] [place] [address], [place] [phone] * (ABNORMAL) CMP (COMPREHENSIVE METABOLIC PANEL) (03/07/2023 9:32 AM CDT) Glucose 192(H) 70 - 105 mg/dL [facility] Blood Urea Nitrogen 39(H) 7 - 25 mg/dL [facility] Creatinine 2.5(H) 0.6 - 1.2 mg/dL [facility] Sodium 138 136 - 145 mEq/L [facility] Potassium 4.8 3.5 - 5.1 mEq/L [facility] Chloride 109(H) 98 - 107 mEq/L [facility] Bicarbonate 20(L) 21 - 31 mEq/L [facility] Total Bilirubin 0.3 0.3 - 1.0 mg/dL [facility] Alk. Phosphatase 75 34 - 104 U/L [facility] Aspartate Aminotransferase 15 13 - 39 U/L [facility] Alanine Aminotransferase 11 7 - 52 U/L [facility] Total Protein 5.4(L) 6.4 - 8.9 g/dL [facility] Albumin 3.3(L) 3.5 - 5.7 g/dL [facility] Calcium 8.5(L) 8.6 - 10.3 mg/dL [facility] Anion Gap 13.8 7.0 - 15.0 mEq/L [facility] Globulin 2.1 2.0 - 3.5 g/dL [facility] EGFR 21(L) >60 ml/min/1. 73m2 [facility] Comment: This eGFR is calculated using 2020 CKD-EPI Creatinine equation without race modifier based on the NKF-ASN task force recommendations Blood 03/07/2023 9:32 AM CDT Narrative [facility] - 03/07/2023 11:13 AM CDT Release to patient->Immediate IS THE PATIENT REQUIRED TO BE FASTING FOR 8 HOURS?->No Buzz Sales PAC CHEMISTRY ORDERABLES Final Result [facility] [address] [place] [address], * (ABNORMAL) COMPLETE BLOOD COUNT (CBC) WITH DIFF (03/07/2023 9:32 AM CDT) WBC 10.5(H) 4.0 - 10.0 10*3/uL [facility] HGB 9.7(L) 11.2 - 15.7 g/dL [facility] HCT 30.4(L) 34.1 - 44.9 % [facility] PLT 195 163 - 369 10*3/uL [facility] MPV 11.5 9.4 - 12.4 fL [facility] RBC 3.30(L) 3.93 - 5.22 10*6/uL [facility] MCV 92 79 - 95 fL [facility] MCH 29.4 25.6 - 32.2 pg [facility] MCHC 31.9(L) 32.2 - 36.5 g/dL [facility] RDW 12.7 11.6 - 14.4 % [facility] Absolute Neutrophil Count 8,054 cells/uL [facility] Absolute Seg Count 7,950(H) 1,440 - 6,600 cells/uL [facility] Absolute Band Count 105 0 - 800 cells/uL [facility] Absolute Lymph Count 1,046 760 - 4,000 cells/uL [facility] Absolute [place] Count 314 160 - 1,200 cells/uL [facility] Absolute Eos Count 1,046(H) 0 - 300 cells/uL [facility] Segmented Neutrophils 76(H) 36 - 66 % [facility] Band Neutrophils 1 0 - 8 % [facility] Lymphocytes 10(L) 19 - 40 % [facility] Monocytes 3(L) 4 - 12 % [facility] CAR E [facility] Eosinophils 10(H) 0 - 3 % [facility] [place] WBC Estimate High [facility] Platelet Estimate Normal [facility] RBC Morphology Normal [facility] Blood 03/07/2023 9:32 AM CDT Narrative [facility] - 03/07/2023 1:22 PM CDT Release to patient->Immediate us Buzz Sales PAC HEMATOLOGY ORDERABLES Kym noman Result [facility] [place] [address] [place] [address], [place] [phone] * (ABNORMAL) BETA 2 MICROGLOBULIN (12/06/2022 10:18 AM CDT) M2ENHBG 9.72(H) 0.97 - 1.84 mg/L CAN[facility]ER LATHE SET UP PERSON [facility] Blood 12/06/2022 10:1 8 AM CDT Narrative CANCER LATHE SET UP PERSON [facility] - 12/06/2022 2:06 PM CDT Release to patient->Immediate Buzz Sales PAC CHEMISTRY ORDERABLES Final Result CANCER LATHE SET UP PERSON [facility] [address] [place] [address], [place] [phone] * (ABNORMAL) FREE KAPPA & LAMBDA LIGHT [...] PM CDT TESTING PERFORMED AT: [] [facility], [address] [place] [address], [place], [address], PHONE: [phone], SUPERVISOR MAINTENANCE: PEGGY MARCUS, PHD Release to patient->Immediate Buzz Sales PAC CHEMISTRY ORDERABLES Final Result [facility] * IMMUNOFIXATION, SERUM [place] (12/06/2022 10:18 AM CDT) Pathologist [facility] [place] IMMUNOFIXATION RESULT, SERUM COMMENT [facility] Comment:NO MONOCLONALITY DET ECTED. 12/06/2022 10:1 8 AM CDT Narrative [facility] - 12/09/2022 1:08 PM CDT TESTING PERFORMED AT: [] [facility], [address] [place] [address], [address], PHONE: [phone], SUPERVISOR MAINTENANCE: PEGGY MARCUS, PHD Release to patient->Immediate Buzz Sales [facility] LAB SEND OUTS Final Resu lt [facility] * (ABNORMAL) ELECTROPHORESIS W/ TOTAL PROTEIN SERUM (12/06/2022 10:18 AM CDT) Pathologist [facility] [place] PROTEIN, TOTAL, SERUM 5.9(L) 6.0 - 8.5 G/DL [facility] ALBUMIN 3.1 2.9 - 4.4 G/DL [facility] [id number]-[id number] 0.3 0.0 - 0.4 G/DL [facility] [id number]-8-[id number] 0.8 0.4 - 1.0 G/DL [facility] BETA GLOBULIN 0.9 0.7 - 1.3 G/DL [facility] GAMMA GLOBULIN 0.7 0.4 - 1.8 G/DL [facility] M-SPIKE NOT OBSERVED NOT OBSERVED G/DL [facility] GLOBULIN, TOTAL 2.8 2.2 - 3.9 G/DL [facility] A/G RATIO 1.1 0.7 - 1.7 [facility] PLEASE NOTE: [facility] Comment: PROTEIN ELECTROPHORESIS SCAN WILL FOLLOW VIA COMPUTER, MAIL, OR CAMP COOK DELIVERY. PDF . [facility] Blood 12/06/2022 10:1 8 AM CDT Narrative [facility] - 12/09/2022 3:09 PM CDT TESTING PERFORMED AT: [] [facility], [address] [facility], [place], [address], PHONE: [phone], SUPERVISOR MAINTENANCE: PEGGY MARCUS, PHD Release to patient->Immediate Buzz Sales PAC CHEMISTRY ORDERABLES Final Result [facility] * IMMUNOGLOBULIN IGA, IGG & IGM QUANT (12/06/2022 10:18 AM CDT) IGG 762 635 - 1,741 mg/dL [facility] IGA 210 66 - 433 mg/dL [facility] IGM 57 45 - 281 mg/dL [facility] LATHE SET UP PERSON [facility] Blood 12/06/2022 10:[address] [facility] - 12/06/2022 2:24 PM CDT Release to patient->Immediate Buzz Sales PAC CHEMISTRY ORDERABLES Final Result Performing Organization Address [facility]/ZIP Co de Phone Number [facility] [address] [address], [place] [phone] * VITAMIN B12 (12/06/2022 10:18 AM CDT) Vitamin B12 265 180 - 914 pg/mL [facility] Blood 12/06/2022 10:[address] [facility] - 12/06/2022 2:36 PM CDT Release to patient->Immediate Buzz Sales PAC CHEMISTRY ORDERABLES Final Result Performing Organization Address City/[facility]/ZIP Co de Phone Number [facility] [address] [place] [address], [place] [phone] * FERRITIN (12/06/2022 10:18 AM CDT) Ferritin 52 11 - 307 ng/mL [facility] Blood 12/06/2022 10:[address] [facility] LAT[facility] SET UP PERSON [facility] - 12/06/2022 2:36 PM CDT Release to patient->Immediate us Buzz Sales PAC CHEMISTRY ORDERABLES Final Result CANCER LATHE SET UP PERSON [facility] [place] [address], [place] [phone] * (ABNORMAL) IRON W/ IRON BINDING CAPACITY [place] (12/06/2022 10:18 AM CDT) IRON 49(L) 50 - 212 ug/dL [facility] UIBC 212 155 - 355 ug/dL [facility] TIBC 261 261 - 478 ug/dl [facility] % Saturation 19(L) 20 - 50 % [facility] Blood 12/06/2022 10:[address] [facility] - 12/06/2022 11:12 AM CDT Release to patient->Immediate Buzz Sales PAC LAB SEND OUTS Final Resu lt Performing Organization Address [facility]/ZIP Co de Phone Number [facility] [place] [place] [address], [place] [phone] * LACTATE DEHYDROGENASE (LD) (12/06/2022 10:18 AM CDT) LDH 162 140 - 271 U/L [facility] Blood 12/06/2022 10:[address] [facility] - 12/06/2022 11:12 AM CDT Release to patient->Immediate us Buzz Sales PAC CHEMISTRY ORDERABLES Final Result Performing Organization Address [facility]/ZIP Co de Phone Number [facility] [address] [place] [address], [place] [phone] * (ABNORMAL) CMP (COMPREHENSIVE METABOLIC PANEL) (12/06/2022 10:18 AM CDT) Glucose 230(H) 70 - 105 mg/dL [facility] Blood Urea Nitrogen 53(H) 7 - 25 mg/dL [facility] Creatinine 2.9(H) 0.6 - 1.2 mg/dL [facility] Sodium 138 136 - 145 mEq/L [facility] Potassium 5.6(HH) 3.5 - 5.1 mEq/L [facility] Comment: Critical Result reported to Ely Lai on 12/06/2022 11:13 by ? Kaur Waller. Results were read back to caller. Chloride 109(H) 98 - 107 mEq/L [facility] Bicarbonate 22 21 - 31 mEq/L [facility] Total Bilirubin 0.4 0.3 - 1.0 mg/dL [facility] Alk. Phosphatase 64 34 - 104 U/L [facility] Aspartate Aminotransferase 16 13 - 39 U/L [facility] Alanine Aminotransferase 11 7 - 52 U/L [facility] Total Protein 5.8(L) 6.4 - 8.9 g/dL [facility] Albumin 3.5 3.5 - 5.7 g/dL [facility] Calcium 8.9 8.6 - 10.3 mg/dL [facility] Anion Gap 12.6 7.0 - 15.0 mEq/L [facility] Globulin 2.3 2.0 - 3.5 g/dL [facility] EGFR 18(L) >60 ml/min/1. 73m2 [facility] Comment: This eGFR is calculated using 2020 CKD-EPI Creatinine equation without race modifier based on the NKF-ASN task force recommendations Blood 12/06/2022 10:1 8 AM CDT Narrative [facility] - 12/06/2022 11:13 AM CDT Release to patient->Immediate IS THE PATIENT REQUIRED TO BE FASTING FOR 8 HOURS?->No us Buzz Sales PAC CHEMISTRY ORDERABLES Final Result [facility] [address] [place] [address], * (ABNORMAL) COMPLETE BLOOD COUNT (CBC) WITH DIFF (12/06/2022 10:18 AM CDT) WBC 12.2(H) 4.0 - 10.0 10*3/uL [facility] HGB 10.4(L) 11.2 - 15.7 g/dL [facility] HCT 30.7(L) 34.1 - 44.9 % [facility] PLT 194 163 - 369 10*3/uL [facility] MPV 11.1 9.4 - 12.4 fL [facility] RBC 3.52(L) 3.93 - 5.22 10*6/uL [facility] MCV 87 79 - 95 fL [facility] MCH 29.5 25.6 - 32.2 pg [facility] MCHC 33.9 32.2 - 36.5 g/dL [facility] RDW 12.4 11.6 - 14.4 % [facility] Absolute Neutrophil Count 9,485 cells/uL [facility] Absolute Seg Count 9,485(H) 1,440 - 6,600 cells/uL [facility] Absolute Lymph Count 973 760 - 4,000 cells/uL [facility] Absolute [place] Count 608 160 - 1,200 cells/uL [facility] Absolute Eos Count 1,094(H) 0 - 300 cells/uL [facility] Segmented Neutrophils 78(H) 36 - 66 % [facility] Lymphocytes 8(L) 19 - 40 % [facility] Monocytes 5 4 - 12 % [facility] Eosinophils 9(H) 0 - 3 % [facility] WBC Estimate High [facility] Platelet Estimate Normal [facility] RBC Morphology Normal [facility] Blood 12/06/2022 10:1 8 AM CDT Narrative [facility] - 12/06/2022 1:29 PM CDT Release to patient->Immediate Buzz Sales PAC HEMATOLOGY ORDERABLES Kym l Result [facility] [place] [address] [place], [place] [address] [phone] documented in this encounter Visit Diagnoses Diagnosis [...] documented as of this encounter Care Teams Backrest Assembler Relationship Specialty Start Date End Date Jonatan Worley [address] [place] [address] PCP - General Family Medicine 07/12/20 Srinivasa Lee MD [address] [place] [address] Consulting Physician Oncology 07/12/20 documented as of this encounter
--- OUTSIDE RECORDS SUMMARY | 2024-09-14 06:20 | XMS_ITS | Encounter Summary ---
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 Gender Identity Not on file Sexual Orientation [...] st Contact Info) Description 10/18/2024 1:30 PM SET UP MECHANIC STAMPING MACHINES Office Visit [facility] [place] [address] [place] [address] Srinivasa Lee MD [address] [place] [address] documented as of this encounter Procedures Procedure [...] - 10.0 10*3/uL [facility] HGB 9.6(L) 11.2 - 15.7 g/dL [facility] HCT 28.4(L) 34.1 - 44.9 % [facility] PLT 183 163 - 369 10*3/uL [facility] MPV 11.0 9.4 - 12.4 fL [facility] RBC 3.22(L) 3.93 - 5.22 10*6/uL [facility] MCV 88 79 - 95 fL [facility] MCH 29.8 25.6 - 32.2 pg [facility] MCHC 33.8 32.2 - 36.5 g/dL [facility] RDW 12.7 11.6 - 14.4 % [facility] Neutrophils % 63.4 36.0 - 66.0 % [facility] Lymphocytes % 19.3 19.0 - 40.0 % [facility] Monocytes % 8.7 4.1 - 12.1 % [facility] Eosinophils % 7.7(H) 0.0 - 3.5 % [facility] Basophils % 0.6 0.0 - 1.0 % [facility] Absolute Neutrophils 5.6 1.4 - 6.6 10*3/uL [facility] Absolute Lymphocytes 1.7 0.8 - 4.0 10*3/uL [facility] Absolute Monocytes 0.8 0.2 - 1.2 10*3/uL [facility] Absolute Eosinophils 0.7(H) 0.0 - 0.4 10*3/uL [facility] Absolute Basophils 0.1 0.0 - 0.1 10*3/uL [facility] WBC Estimate Normal [facility] Platelet Estimate Normal [place] [facility] RBC Morphology Abnormal [facility] Poikilocytosis 1+ [facility] 06/14/2022 9:38 AM CDT Srinivasa Lee MD LAB SEND OUTS Final Result Performing Organization Address City/[facility] Co de Phone Number [facility] [place] [id number], [place] [phone] * (ABNORMAL) IRON W/ IRON BINDING CAPACITY [place] (06/14/2022 9:38 AM CDT) IRON 62 50 - 212 ug/dL [facility] UIBC 187 155 - 355 ug/dL [facility] TIBC 249(L) 261 - 478 ug/dl [facility] % Saturation 25 20 - 50 % [facility] Blood 06/14/2022 9:38 AM CDT Narrative [facility] - 06/14/2022 11:05 AM CDT Release to patient->Immediate us Srinivasa Lee MD LAB SEND OUTS Final Result Performing Organization Address City/[facility] Co de Phone Number [facility] [address] [address], [place] [phone] * FERRITIN (06/14/2022 9:38 AM CDT) Ferritin 67 11 - 307 ng/mL [facility] SHELL TRIM OPERATOR [facility] Blood 06/14/2022 9:3 8 AM CDT Narrative [facility] SHELL TRIM OPERATOR [facility] - 06/14/2022 2:45 PM CDT Release to patient->Immediate us Srinivasa Lee MD CHEMISTRY ORDERABLES Final R esult [facility] SHELL TRIM OPERATOR [facility] [place] [address], documented in this encounter Visit Diagnoses Diagnosis Anemia of unknown etiology Anemia, unspecified documented in this encounter Additional Health Concerns Assessment Noted Time PHQ-9 Depression Total Score: 0 03/08/20 21 11:06 AM CDT documented as of this encounter Care Teams Typecasting Machine Operator Relationship Specialty Start Date End Date Jonatan Worley [address] [place] [address] PCP - General Family Medicine 07/12/20 Srinivasa Lee MD [address] [place] [id number] Consulting Physician Oncology 07/12/20 documented as of this encounter
--- OUTSIDE RECORDS SUMMARY | 2024-09-14 06:20 | XMS_ITS | Encounter Summary ---
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 Gender Identity Not on file Sexual [...] st Contact Info) Description 10/18/2024 1:30 PM STAGE ELECTRICIAN HELPER Office Visit [facility] [address] [address] Srinivasa Lee MD [address] [address] documented as of this encounter Visit Diagnoses Not on filedocumented in this encounter Additional Health Concerns Assessment Noted Time PHQ-9 Depression Total Score: 0 03/08/20 21 11:06 AM CDT documented as of this encounter Care Teams Oyster Buyer Relationship Specialty Start Date End Date Jonatan Worley [address] [place] [address] PCP - General Family Medicine 07/12/20 Srinivasa Lee MD [address] [place] [address] Consulting Physician Oncology 07/12/20 documented as of this encounter
--- OUTSIDE RECORDS SUMMARY | 2024-09-14 06:20 | XMS_ITS | Encounter Summary ---
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 Gender Identity Not on file Sexual [...] Contact Info) Description 10/18/2024 1:30 PM INDUSTRIAL AUTOMATION SPECIALIST Office Visit [facility] [place] [address] [place] [phone] Srinivasa Lee MD [address] [facility] [address] [place] [address] documented as of this encounter Visit Diagnoses Not on filedocumented in this encounter Additional Health Concerns Assessment Noted Time PHQ-9 Depression Total Score: 0 03/08/20 21 11:06 AM CDT documented as of this encounter Care Teams Weave Room Supervisor Relationship Specialty Start Date End Date Jonatan Worley [address] [place] [address] PCP - General Family Medicine 07/12/20 Srinivasa Lee MD [address] [place] [address] Consulting Physician Oncology 07/12/20 documented as of this encounter
--- OUTSIDE RECORDS SUMMARY | 2024-09-14 06:20 | XMS_ITS | Encounter Summary ---
Author Organization [facility] Address [address] [place] [address] Phone Care Team Providers Care Production Checker Name Role Phone Jonatan Worley Primary Care Provider [phone] Srinivasa Lee MD Unavailable [phone] Reason for Visit * Reason Comments Follow-up Encounter Details Date Type Department Care Team (Latest Contact Info) Description 03/07/2023 9:30 AM CDT Office Visit [facility] [address] [address] Buzz Sales, RICCI Hypogammaglobulinemia (HCC) [...] on file Legal Sex Female 11:51 AM [place] MARSHAL Gender Identity Not on file Sexual Orientation [...] : 1960 [facility] Encounter Date: 03/07/2023 Care Team: Current Providers PCP: Jonatan Worley Care Team Provider: Srinivasa Lee MD Encounter Provider: Buzz Sales PAC Referring Provider: not found Physician Material Attendant: Buzz Sales PAC HISTORY OF PRESENT ILLNESS: [...] lab results shown below reviewed. Buzz Sales PA-C/[facility] Vitals: Vitals: 03/07/23 0947 BP: 142/78 [...] EYE 4 TIMES DAILY ergocalciferol (VITAMIN D) 54882 UNIT Capsule TAKE 1 CAPSULE BY MOUTH [...] 12/06/2022 Component Date Value Ref Range Status [id number] 12/06/2022 9.72 (H) 0.97 - 1.84 mg/L [...] 12/06/2022 3.1 2.9 - 4.4 G/DL Final [id number] 12/06/2022 0.3 0.0 - 0.4 G/DL Final [id number]-[id number] 12/06/2022 0.8 0.4 - 1.0 G/DL Final [...] SCAN WILL FOLLOW VIA COMPUTER, MAIL, OR CYBER SYSTEMS OPERATIONS SPECIALIST DELIVERY. PDF 12/06/2022 . Final IGG 12/06/2022 [...] 973 760 - 4,000 cells/uL Final Absolute [place] Count 12/06/2022 608 160 - 1,200 cells/uL [...] st Contact Info) Description 10/18/2024 1:30 PM [place] MARSHAL Office Visit [facility] [address] [address] Srinivasa Lee MD [address] [place] [address] [place] [address] documented as of this encounter Results * (ABNORMAL) BETA 2 MICROGLOBULIN (06/12/2023 2:25 PM CDT) [id number] 11.54(H) 0.97 - 1.84 mg/L [facility] Blood 06/12/2023 2:25 PM CDT Narrative [facility] - 06/13/2023 3:31 PM CDT Release to patient->Immediate us Buzz Sales PAC CHEMISTRY ORDERABLES Final Result Performing Organization Address City/[facility]/ZIP Co de Phone Number [facility] [address] [place] [address], [place] [phone] * (ABNORMAL) FREE KAPPA & LAMBDA LIGHT CHAINS SERUM (06/12/2023 2:25 PM CDT) FREE KAPPA LT CHAINS,S 113.4(H) 3.3 - 19.4 MG/L [facility] FREE LAMBDA LT CHAINS,S 91.9(H) 5.7 - 26.3 MG/L [facility] FREE KAPPA/FREE LAMBDA RATIO LT CHAINS 1.23 0.26 - 1.65 [facility] Blood 06/12/2023 2:25 PM CDT Azalia [facility] - 06/13/2023 3:09 PM CDT TESTING PERFORMED AT: [CB] [employer] [place], [address], PHONE: [phone], ANIMAL SCIENCE INSTRUCTOR: PEGGY MARCUS, PHD Release to patient->Immediate Result [facility] Buzz Sales PAC CHEMISTRY ORDERABLES Final Result [facility] [address] [place] [address], [place] [phone] * IMMUNOFIXATION, SERUM [place] (06/12/2023 2:25 PM CDT) IMMUNOFIXATION RESULT, SERUM COMMENT: [facility] Comment: PRESENCE OF MONOCLONAL PROTEIN IS UNCLEAR AT THIS TIME. SUGGEST REPEAT IN 3 TO 6 MONTHS IF CLINICALLY INDICATED. 06/12/2023 2:25 PM CDT Narrative [facility] - 06/13/2023 3:09 PM CDT TESTING PERFORMED AT: [CB] [employer] [place], [place], [address], PHONE: [phone], ANIMAL SCIENCE INSTRUCTOR: PEGGY MARCUS, PHD Release to patient->Immediate Buzz Sales PAC LAB SEND OUTS Final Resu lt [facility]UTTING [facility] [place] [address] [place] [address], [place] [phone] * ELECTROPHORESIS W/ TOTAL PROTEIN SERUM (06/12/2023 2:25 PM CDT) PROTEIN, TOTAL, SERUM 6.2 6.0 - 8.5 G/DL [facility] ALBUMIN 3.1 2.9 - 4.4 G/DL [facility] GVXCO-0-AXYASAUD 0.3 0.0 - 0.4 G/DL [facility] ULJHB-5-[id number] 0.9 0.4 - 1.0 G/DL [facility] BETA GLOBULIN 0.9 0.7 - 1.3 G/DL [facility] GAMMA GLOBULIN 1.0 0.4 - 1.8 G/DL [facility] M-SPIKE NOT OBSERVED NOT OBSERVED G/DL [facility] GLOBULIN, TOTAL 3.1 2.2 - 3.9 G/DL [facility] A/G RATIO 1.0 0.7 - 1.[address] [facility] PLEASE NOTE: COMMENT [facility] CNC CUTTING [facility]PER[facility] Comment: PROTEIN ELECTROPHORESIS SCAN WILL FOLLOW VIA COMPUTER, MAIL, OR CYBER SYSTEMS OPERATIONS SPECIALIST DELIVERY. PDF . [facility] Blood 06/12/2023 2:25 PM CDT Narrative [facility] CUTTING [facility] - 06/13/2023 3:09 PM CDT TESTING PERFORMED AT: [] [facility], [address] [place] [address], [place], [address], PHONE: [phone], ANIMAL SCIENCE INSTRUCTOR: PEGGY MARCUS, PHD Release to patient->Immediate Buzz Sales PAC CHEMISTRY ORDERABLES Final Result [facility] CNC CUTTING OPERATOR [facility] [place] [address] [place] [address], * IMMUNOGLOBULIN IGA, IGG & IGM QUANT (06/12/2023 2:25 PM CDT) IGG 960 635 - 1,741 mg/dL [facility] IGA 238 66 - 433 mg/dL [facility] IGM 101 45 - 281 mg/dL [facility] CNC CUTTING OPERATOR [facility] Blood 06/12/2023 2:25 PM CDT Narrative [facility] CUTTING [facility] - 06/13/2023 3:31 PM CDT Release to patient->Immediate Buzz Sales PAC CHEMISTRY ORDERABLES Final Result [facility] CNC CUTTING OPERATOR [facility] [address] [place] [address], * (ABNORMAL) VITAMIN B12 (06/12/2023 2:25 PM CDT) Vitamin B12 1,442(H) 180 - 914 pg/mL [facility] Blood 06/12/2023 2:25 PM CDT [facility] - 06/13/2023 3:29 PM CDT Release to patient->Immediate Buzz [place] PAC CHEMISTRY ORDERABLES Final Result [facility] [address] [place] [address], [place] [phone] * FERRITIN (06/12/2023 2:25 PM CDT) Ferritin 69 11 - 307 ng/mL [facility] Blood 06/12/2023 2:25 PM CDT [facility] - 06/13/2023 3:29 PM CDT Release to patient->Immediate Buzz Sales PAC CHEMISTRY ORDERABLES Final Result Performing Organization Address City/[facility]/ZIP Co de Phone Number [facility] CNC CUTTING OPERATOR [facility] [address] [place] [address], * (ABNORMAL) IRON W/ IRON BINDING CAPACITY [place] (06/12/2023 2:25 PM CDT) IRON 64 50 - 212 ug/dL [facility] CNC CUTTING OPERATOR [facility] UIBC 188 155 - 355 ug/dL [facility] CNC CUTTING [facility]PER[facility] TIBC 252(L) 261 - 478 ug/dl [facility] CNC CUTTING [facility] % Saturation 25 20 - 50 % [facility]NC CUTTING [facility] Blood 06/12/2023 2:25 PM CDT [facility] - 06/12/2023 3:29 PM CDT Release to patient->Immediate Buzz Sales PAC LAB SEND OUTS Final Resu lt Performing Organization Address City/[facility]/ZIP Co de Phone Number [facility] CNC CUTTING OPERATOR [facility] [place] [address] [place] [address], [place] [phone] * LACTATE DEHYDROGENASE (LD) (06/12/2023 2:25 PM CDT) LDH 152 140 - 271 U/L [facility]NC CUTTING [facility]PER[facility] Blood 06/12/2023 2:25 PM CDT [facility] - 06/12/2023 3:29 PM CDT Release to patient->Immediate Buzz Sales PAC CHEMISTRY ORDERABLES Final Result Performing Organization Address City/[facility]/ZIP Co de Phone Number [facility] CNC CUTTING OPERATOR [facility] [address] [place] [address], [place] [phone] * (ABNORMAL) CMP (COMPREHENSIVE METABOLIC PANEL) (06/12/2023 2:25 PM CDT) Glucose 161(H) 70 - 105 mg/dL [facility] Blood Urea Nitrogen 37(H) 7 - 25 mg/dL [facility] Creatinine 2.6(H) 0.6 - 1.2 mg/dL [facility] Sodium 138 136 - 145 mEq/L [facility] Potassium 5.0 3.5 - 5.1 mEq/L [facility] Chloride 111(H) 98 - 107 mEq/L [facility] Bicarbonate 19(L) 21 - 31 mEq/L [facility] Total Bilirubin 0.3 0.3 - 1.0 mg/dL [facility] Alk. Phosphatase 89 34 - 104 U/L [facility] Aspartate Aminotransferase 16 13 - 39 U/L [facility] Alanine Aminotransferase 10 7 - 52 U/L [facility] Total Protein 6.2(L) 6.4 - 8.9 g/dL [facility] Albumin 3.5 3.5 - 5.7 g/dL [facility] Calcium 9.0 8.6 - 10.3 mg/dL [facility] Anion Gap 13.0 7.0 - 15.0 mEq/L [facility] Globulin 2.7 2.0 - 3.5 g/dL [facility] EGFR 20(L) >60 ml/min/1. 73m2 [facility] Comment: This eGFR is calculated using 2020 CKD-EPI Creatinine equation without race modifier based on the NKF-ASN task force recommendations Blood 06/12/2023 2:25 PM CDT Narrative [facility] CUTTING [facility] - 06/12/2023 3:29 PM CDT Release to patient->Immediate IS THE PATIENT REQUIRED TO BE FASTING FOR 8 HOURS?->No us Buzz Sales PAC CHEMISTRY ORDERABLES Final Result [facility] CNC CUTTING OPERATOR [facility] [place] [address], * (ABNORMAL) COMPLETE BLOOD COUNT (CBC) WITH DIFF (06/12/2023 2:25 PM CDT) WBC 9.8 4.0 - 10.0 10*3/uL [facility] CNC CUTTING [facility]PER[facility] HGB 10.0(L) 11.2 - 15.7 g/dL [facility] CNC CUTTING [facility]PER[facility] HCT 31.3(L) 34.1 - 44.9 % [facility] CNC CUTTING OPERATOR [facility] PLT 200 163 - 369 10*3/uL [facility] CNC CUTTING [facility]PER[facility] MPV 10.0 9.4 - 12.4 fL [facility] CNC CUTTING [facility] RBC 3.46(L) 3.93 - 5.22 10*6/uL [facility] CNC CUTTING OPERATOR [facility] MCV 91 79 - 95 fL [facility] CNC CUTTING OPER[facility] MCH 28.9 25.6 - 32.2 pg [facility] CNC CUTTING OPER[facility] MCHC 31.9(L) 32.2 - 36.5 g/dL [facility] CNC CUTTING OPER[facility] RDW 12.9 11.6 - 14.4 % [facility] CNC CUTTING [facility]PER[facility] Absolute Neutrophil Count 6,546 cells/uL [facility] Absolute Seg Count 6,546 1,440 - 6,600 cells/uL [facility] CNC CUTTING OPERATOR [facility] Absolute Lymph Count 1,759 760 - 4,000 cells/uL [facility] Absolute [place] Count 586 160 - 1,200 cells/uL [facility] Absolute Eos Count 879(H) 0 - 300 cells/uL [facility] CNC CUTTING [facility] Segmented Neutrophils 67(H) 36 - 66 % [facility] CNC CUTTING [facility] Lymphocytes 18(L) 19 - 40 % [facility] Monocytes 6 4 - 12 % [facility] Eosinophils 9(H) 0 - 3 % [facility] WBC Estimate Normal [facility] CNC CUTTING OPERATOR [facility] Platelet Estimate Normal [facility] CNC CUTTING [facility]PER[facility] RBC Morphology Normal [facility] CNC CUTTING OPERATOR [facility] Blood 06/12/2023 2:25 PM CDT Narrative [facility] CNC CUTTING [facility] - 06/12/2023 3:27 PM CDT Release to patient->Immediate us Buzz aSles PAC HEMATOLOGY ORDERABLES Kym noman Result [facility] CNC CUTTING OPERATOR [facility] [address] [address], [place] [phone] * (ABNORMAL) BETA 2 MICROGLOBULIN (03/07/2023 10:01 AM CDT) Pathologist [facility] [id number] 9.94(H) 0.97 - 1.84 mg/L [facility] Blood 03/07/2023 10:0 1 AM CDT Narrative [facility] - 03/14/2023 2:06 PM CDT Release to patient->Immediate Buzz Sales PAC CHEMISTRY ORDERABLES Final Result [facility] Cancer Care [address] [address], [place] [phone] * (ABNORMAL) FREE KAPPA & LAMBDA LIGHT CHAINS SERUM (03/07/2023 10:01 AM CDT) [facility] FREE KAPPA LT CHAINS,S 104.9(H) 3.3 - 19.4 MG/L [facility] FREE LAMBDA LT CHAINS,S 59.6(H) 5.7 - 26.3 MG/L [facility] FREE KAPPA/FREE LAMBDA RATIO LT CHAINS 1.76(H) 0.26 - 1.65 [facility] Blood 03/07/2023 10:0 1 AM CDT Narrative [facility] - 03/10/2023 1:08 PM CDT TESTING PERFORMED AT: [] [facility], [address] [place] [address], [place], [address], PHONE: [phone], ANIMAL SCIENCE INSTRUCTOR: PEGGY MARCUS, PHD Release to patient->Immediate Buzz Sales PAC CHEMISTRY ORDERABLES Final Result [facility] * IMMUNOFIXATION, SERUM [place] (03/07/2023 10:01 AM CDT) IMMUNOFIXATION RESULT, SERUM COMMENT [facility] Comment:NO MONOCLONALITY DET ECTED. 03/07/2023 10:0 1 AM CDT Narrative [facility] EX[facility] - 03/10/2023 11:08 AM CDT TESTING PERFORMED AT: [] [facility], [address] [place] [address], [address], PHONE: [phone], ANIMAL SCIENCE INSTRUCTOR: PEGGY MARCUS, PHD Release to patient->Immediate Buzz Sales [facility] LAB SEND OUTS Final Resu lt [facility] EX[facility] * (ABNORMAL) ELECTROPHORESIS W/ TOTAL PROTEIN SERUM (03/07/2023 10:01 AM CDT) PROTEIN, TOTAL, SERUM 5.7(L) 6.0 - 8.5 G/DL [facility] ALBUMIN 3.2 2.9 - 4.4 G/DL [facility] [id number]-9-[id number] 0.2 0.0 - 0.4 G/DL [facility] [id number]-3-HUMUYKQZ 0.8 0.4 - 1.0 G/DL [facility] BETA GLOBULIN 0.8 0.7 - 1.3 G/DL [facility] GAMMA GLOBULIN 0.7 0.4 - 1.8 G/DL [facility] EX[facility] M-SPIKE NOT OBSERVED NOT OBSERVED G/DL [facility] GLOBULIN, TOTAL 2.5 2.2 - 3.9 G/DL [facility] A/G RATIO 1.3 0.7 - 1.7 [facility] PLEASE NOTE: COMMENT [facility] Comment: PROTEIN ELECTROPHORESIS SCAN WILL FOLLOW VIA COMPUTER, MAIL, OR CYBER SYSTEMS OPERATIONS SPECIALIST DELIVERY. PDF . [facility] EX[facility] Blood 03/07/2023 10:0 1 AM CDT Narrative [facility] EX[facility] - 03/10/2023 3:09 PM CDT TESTING PERFORMED AT: [] [facility], [address] [facility], [place], [address], PHONE: [phone], ANIMAL SCIENCE INSTRUCTOR: PEGGY MARCUS, PHD Release to patient->Immediate Buzz Sales PAC CHEMISTRY ORDERABLES Final Result [facility] * IMMUNOGLOBULIN IGA, IGG & IGM QUANT (03/07/2023 10:01 AM CDT) IGG 746 635 - 1,741 mg/dL [facility] IGA 202 66 - 433 mg/dL [facility] IGM 104 45 - 281 mg/dL [facility] Blood 03/07/2023 10:0 1 AM CDT Narrative [facility] - 03/10/2023 2:03 PM CDT Release to patient->Immediate Buzz Sales PAC CHEMISTRY ORDERABLES Final Result Performing Organization Address City/[facility]/ZIP Co de Phone Number [facility] [address] [phone] documented in this encounter Visit Diagnoses Diagnosis [...] documented as of this encounter Care Teams Production Checker Relationship Specialty Start Date End Date Jonatan Worley [address] [place] [address] PCP - General Family Medicine 07/12/20 Srinivasa Lee MD [address] [place] [address] Consulting Physician Oncology 07/12/20 documented as of this encounter
--- OUTSIDE RECORDS SUMMARY | 2024-09-14 06:21 | XMS_ITS | Continuity of Care Document ---
Author Organization [facility] Address [address] [place] [address] Phone Care Team Providers Care Beef Skinner Name Role Phone Jonatan Worley MD Unavailable [...] Providers Copied on Encounter OFFICE/OUTPA TIENT VISIT, [facility], [address] [place], [address], tel:[phone] [facility] Medicine DM (chief complaint) lung nodule1 (chief complaint) weight loss1 (chief complaint) Solitary lung noduleType 2 diabetes mellitus with diabetic nephropathyAbnormal weight lossEdema 4 Meir Cheung. [address], [address] , [place]. tel:[phone] OFFICE/OUTPA TIENT VISIT, EST [facility], [address] [place], [address], tel:[phone] [facility] pneumonia1 (chief complaint) Solitary lung nodulePneumonia 4 Meir Cheung. [address], [place], [place], [address] , [place]. tel:[phone] OFFICE/OUTPA TIENT VISIT, EST [facility], [address], [place], [place], [address], [place] tel:[phone] [facility] Medicine pneumonia1 (chief complaint) HTN (chief complaint) PneumoniaStage 4 chronic renal diseaseEssential (primary) hypertensionAnemia 4 Meir Cheung. [address], [place], [place], [address] , [place]. tel:[phone] OFFICE/OUTPA TIENT VISIT, [facility], [address], [place], [place], [address], [place] tel:[phone] [facility] HTN (chief complaint) anemia1 (chief complaint) HLP (chief complaint) DM (chief complaint) Iron deficiency anemiaEssential (primary) hypertensionMixed hyperlipidemiaType 2 diabetes mellitus with diabetic nephropathy 4 Meir Cheung. [address], [place], [place], [address] , [place]. tel:[phone] OFFICE/OUTPA TIENT VISIT, [facility], [address], [place], [place], [address], [place] tel:[phone] [facility] DM (chief complaint) anemia1 (chief complaint) renal (chief complaint) b12 (chief complaint) HLP (chief complaint) HTN (chief complaint) Essential (primary) hypertensionIron deficiency anemiaStage 4 chronic renal diseaseMixed hyperlipidemiaType 2 diabetes mellitus with diabetic nephropathy 4 Meir Cheung. [address], [place], [place], [address] , [place]. tel:[phone] PREV VISIT, EST, AGE 40-64 [facility], [address], [place], [place], [address], [place] tel:[phone] [facility] Medicine physical (chief complaint) Encounter for general adult medical exam w abnormal findingsStage 4 chronic renal diseaseEssential (primary) hypertensionMixed hyperlipidemiaIron deficiency anemiaType 2 diabetes mellitus with diabetic nephropathy 3 Meir Boykin [address], [place], [place], [address] , [place]. tel:[phone] OFFICE/OUTPA TIENT VISIT, [facility], [address], [place], [place], [address], [place] tel:[phone] [facility] HTN (chief complaint) anemia1 (chief complaint) DM (chief complaint) HLP (chief complaint) Essential (primary) hypertensionStage 4 chronic renal diseaseMixed hyperlipidemiaType 2 diabetes mellitus with diabetic nephropathyVitamin D deficiency, unspecifiedIron deficiency anemia 3 Meir Boykin [address], [place], [place], [address] , [place]. tel:[phone] OFFICE/OUTPA TIENT VISIT, [facility], [address] [place], [address], [place] tel:[phone] [facility] HTN (chief complaint) weight gain1 (chief complaint) edema1 (chief complaint) Essential (primary) hypertensionEdemaAb normal weight gainStage 4 chronic renal disease 3 Meir Boykin [address], [place], [place], [address] , [place]. tel:[phone] OFFICE/OUTPA TIENT VISIT, [facility], [address] [place], [address], [place] tel:[phone] [facility] DM (chief complaint) anemia1 (chief complaint) renal (chief complaint) HTN (chief complaint) AnemiaStage III chronic renal diseaseEssential (primary) hypertensionMixed hyperlipidemiaType 2 diabetes mellitus with diabetic nephropathy 3 Meir Boykin [address], [place], [place], [address] , [place]. tel:[phone] PREV VISIT, EST, AGE 40-64 [facility], [address] [place], [address], [place] tel:[phone] [facility] PHysical (chief complaint) Essential (primary) hypertensionMixed hyperlipidemiaEdema Type 2 diabetes mellitus with diabetic nephropathyVitamin D deficiency, unspecifiedEncounte r for general adult medical exam w abnormal findings 2 Meir Cheung. [address] [place], [place], [address] , . tel:[phone] OFFICE/OUTPA TIENT VISIT, [facility], [address] [place], [address], tel:[phone] [facility] HTN (chief complaint) renal (chief complaint) DM (chief complaint) HLP (chief complaint) Essential (primary) hypertensionStage III chronic kidney diseaseMixed hyperlipidemiaType 2 diabetes mellitus with diabetic nephropathy 2 Meir Cheung. [address], [address] , . [phone] OFFICE/OUTPA TIENT VISIT, [facility], [address] [place], [place], [address], [place] tel:[phone] [facility] HTN (chief complaint) DM (chief complaint) edema1 (chief complaint) Stage III chronic renal diseaseEssential (primary) hypertensionType 2 diabetes mellitus with diabetic nephropathyEdema 2 Meir Cheung. [address], [address] , [place]. tel:[phone] OFFICE/OUTPA TIENT VISIT, [facility], [address] [place], [place], [address], [place] tel:[phone] [facility] DM (chief complaint) renal (chief complaint) HTN (chief complaint) Type 2 diabetes mellitus with diabetic nephropathyEssentia l (primary) hypertensionAbnorma lity of albuminOther disorders of phosphorus metabolismEdema 2 Meir Cheung. [address] [place], [address] , . tel:[phone] OFFICE/OUTPA TIENT VISIT, [facility], [address] [place], [place], [address], tel:[phone] [facility] HTN (chief complaint) Essential (primary) hypertensionStage III chronic kidney diseaseEdemaGeneral ized Anxiety Disorder 2 Meir Boykin [address], [place], [address] , [place]. [phone] OFFICE/OUTPA TIENT VISIT, [facility], [address] [place], [address], tel:[phone] [facility] HTN (chief complaint) DM (chief complaint) renal disease1 (chief complaint) edema1 (chief complaint) EdemaEssential (primary) hypertensionStage III chronic kidney diseaseType 2 diabetes mellitus with diabetic nephropathy 2 Meir Boykin [address], [place], [place], [address] , [place]. tel:[phone] OFFICE/OUTPA TIENT VISIT, [facility], [address] [place], [address], tel:[phone] [facility] HTN (chief complaint) renal (chief complaint) DM (chief complaint) Essential (primary) hypertensionType 2 diabetes mellitus with diabetic nephropathyStage III chronic kidney diseaseEdema 1 Meir Boykin [address], [address] , [place]. [phone] OFFICE/OUTPA TIENT VISIT, [facility], [address] [place], [address], [place] tel:[phone] [facility] edema1 (chief complaint) anemia1 (chief complaint) low renal1 (chief complaint) HLP (chief complaint) DM (chief complaint) AnemiaEdemaOther disorders of phosphorus metabolismType 2 diabetes mellitus with diabetic nephropathyAbnormal ity of albuminHyperkalemia HyperlipidemiaEssen tial (primary) hypertension 1 Meir Boykin [address], [place], [place], [address] , [place]. [phone] PREV VISIT, EST, AGE 40-64 [facility], [address] [place], [address], tel:[phone] [facility] HTN (chief complaint) vision change1 (chief complaint) DM (chief complaint) edema1 (chief complaint) Essential (primary) hypertensionEdemaTy pe 2 diabetes mellitus with diabetic nephropathyOther disorders of phosphorus metabolismAnemiaVis ual disturbanceShortnes s of breathEncounter for general adult medical exam w abnormal findingsEncounter for general adult medical examination without abnormal findings 1 Meir Boykin [address], [place], [place], [address] , . tel:[phone] OFFICE/OUTPA TIENT VISIT, [facility], [address] [place], [address], tel:[phone] [facility] HTN (chief complaint) renal (chief complaint) DM (chief complaint) Essential (primary) hypertensionType 2 diabetes mellitus with diabetic nephropathyAbnormal ity of globulinOth disrd of bone density and structure, other site 1 Meir Boykin [address], [place], [place], [address] , [place]. [phone] OFFICE/OUTPA TIENT VISIT, [facility], [address] [place], [address], [place] tel:[phone] [facility] DM (chief complaint) Essential (primary) hypertensionType 2 diabetes mellitus with diabetic nephropathyOther disorders of phosphorus metabolismAbnormali ty of globulin 1 Meir Boykin [address], [place], [place], [address] , [place]. tel:[phone] Referring Provider: Jonatan Worley, [address], [place], [place], [address]. tel:[phone] OFFICE/OUTPA TIENT VISIT, [facility], [address] [place], [address], tel:[phone] [facility] anemia1 (chief complaint) low renal1 (chief complaint) DM (chief complaint) HTN (chief complaint) Type 2 diabetes mellitus with diabetic nephropathyHyperlip idemiaAnemiaAbnorma lity of globulinEssential (primary) hypertensionOther disorders of phosphorus metabolism 0 Meir Boykin [address], [place], [place], [address] , [place]. [phone] Referring Provider: Bryn Y[address], [place], [place], [address]. tel:[phone] OFFICE/OUTPA TIENT VISIT, [facility], [address], [place], [place], [address], [place] tel:[phone] [facility] DM (chief complaint) HLP (chief complaint) HTN (chief complaint) Essential (primary) hypertensionHyperli pidemiaType 2 diabetes mellitus with diabetic nephropathy 0 Meir Boykin [address], [place], [address] , [place]. [phone] Referring Provider: Bryn Yousse[address], [place], [place], [address]. tel:[phone] OFFICE/OUTPA TIENT VISIT, [facility], [address] [place], [address], [place] tel:[phone] [facility] DM (chief complaint) HTN (chief complaint) HLP (chief complaint) vertigo1 (chief complaint) Essential (primary) hypertensionHyperli pidemiaType 2 diabetes mellitus with diabetic nephropathyAnemia 0 Meir Boykin [address], [place], [place], [address] , [place]. [phone] Referring Provider: Bryn Yousse[address], [place], [place], [address]. tel:[phone] OFFICE/OUTPA TIENT VISIT, [facility], [address], [address], [place] tel:[phone] [facility] DM (chief complaint) anemia1 (chief complaint) protein (chief complaint) low D (chief complaint) HTN (chief complaint) HLP (chief complaint) Essential (primary) hypertensionHyperli pidemiaType 2 diabetes mellitus with diabetic nephropathyOth disorders of plasma-protein metabolism, NECAnemiaVitamin D deficiency, unspecified 0 Meir Cheung. [address], [place], [place], [address] , [place]. tel:[phone] Referring Provider: Bryn Yousse[address], [place], [place], [address]. tel:[phone] PREV VISIT, EST, AGE 40-64 [facility], [address], [place], [place], [address], [place] tel:[phone] [facility] Physical (chief complaint) Encntr for general adult medical exam w/o abnormal findings 0 Meir Cheung. [address], [place], [place], [address] , [place]. tel:[phone] Referring Provider: Bryn Youssef [address], [place], [place], [address]. tel:[phone] OFFICE/OUTPA TIENT VISIT, EST [facility], [address], [place], [place], [address], [place] tel:[phone] [facility] vertigo1 (chief complaint) HTN (chief complaint) DizzinessType 2 diabetes mellitus w/ diabetic neuropathy 9 Meir Cheung. [address], [place], [place], [address] , [place]. tel:[phone] Referring Provider: Bryn Youssef [address], [place], [place], [address]. tel:[phone] OFFICE/OUTPA TIENT VISIT, EST [facility], [address], [place], [place], [address], [place] tel:[phone] [facility] vertigo1 (chief complaint) HTN (chief complaint) hematuria1 (chief complaint) DizzinessEssential (primary) hypertensionHematur iaType 2 diabetes mellitus w/ diabetic neuropathy 9 Mier Cheung. [address], [place], [address] , [place]. tel:[phone] Referring Provider: Jonatan Worley, [address], [place], [place], [address]. tel:[phone] OFFICE/OUTPA TIENT VISIT, [facility], [address], [place], [place], [address], [place] tel:[phone] [facility] Medicine vertigo1 (chief complaint) DM (chief complaint) Essential (primary) hypertensionDizzine ssType 2 diabetes mellitus w/ diabetic neuropathy 9 Meir Cheung. [address], [place], [place], [address] , [place]. [phone] Referring Provider: Bryn Yousse[address], [place], [place], [address]. tel:[phone] OFFICE/OUTPA TIENT VISIT, [facility], [address], [place], [place], [address], [place] tel:[phone] [facility] DM (chief complaint) Type 2 diabetes mellitus without complicationsEssent ial (primary) hypertensionHyperli pidemiaHyperkalemia 9 Meir Cheung. [address], [place], [place], [address] , [place]. [phone] Referring Provider: Bryn Yousse[address], [place], [place], [address]. tel:[phone] Family History Family Member Type Diagnosis Age [...] been having hypoglycemic episode at night and nitrate operator after taking 2 mg amaryl at night. [...] ordered Referral Referred To: Raji Shook [address] [facility] [address] [place], [place], [phone] Ordered: Referrals: Allopathic & Osteopathic Physicians : Internal Medicine : Nephrology. Raji Shook. Evaluate and treat ordered Referral Ordered: [facility] KIDNEY ordered Referral Ordered: Hematology (related to Abnormality of globulin) ordered Referral Ordered: Referrals: Hematology. Evaluate and treat ordered History Of Present Illness Encounter Date Complaint History Of Prese nt Illness DM Pt has DM. Pt ta edson fisher and amaryl and she has been having hypoglycemic episode at night and nitrate operator after taking 2 mg amaryl at night. [...] high ,Pt got the b12 from hematology. HLP Pt has HLP. Pt t neli garcia and her lipid profile is ok [...] III renal disease and she saw nephrology DIRECTOR BUSINESS MANAGEMENT last month and was told to continue [...] not sure why linda transferred her to [facility]. She was evaluated by psychiatrist at [facility] and she was deemed feeling frustrated only without any psychiatric diagnosis and sent home with metoprolol 25 mg BID only without any psych meds Pt states that she was just frustrated about being admitted to [facility] which made her angry Pt denies [...] been getting worse lately and she sees computed tomography technician and she notices worsening vision during last several months. Pt states that she almost barely able to see from right eye for 2-3 years and her left eye also became blurred since two weeks ago. Pt just saw computed tomography technician last week and was told that she [...] anemic pt was not anemic back in [facility] last year. Pt is postmeno for [...] doing ok Instructions Date Instruction Additional Infor xiao Special diet education Related t o Body [...] Mental Status Date Cognitive Assessment Orientation - [employer] ed to time, place, person, situation.
--- NOTE | 2024-09-14 07:04 | P.PNGI_ITS ---
Progress Note: A&P Assessment and Plan (1) Gastroenteritis: Code(s): K52.9 - Noninfective gastroenteritis and colitis, unspecified Status: Acute Assessment and Plan: Patient's clinical picture probably related to gastroenteritis, but certainly colchicine significantly contributed to diarrhea and nausea. She can be discharged from my specialty standpoint, and discontinue colchicine for now. Will be glad to assist pt as an outpatient if needed. Subjective Date/time seen: 09/14/24 07:04 Interval history: The patient feels much better today, is hungry and does not have further nausea or diarrhea. Objective Data Vital Signs Vital Signs: Vital Signs - 24 hr 09/13/24 08:00 09/13/24 08:00 09/13/24 08:00 Temperature 99.3 F 99.3 F Pulse Rate 83 83 83 Respiratory Rate 15 15 15 Blood Pressure 117/61 117/61 Pulse Oximetry 100 100 100 Oxygen Delivery Room Air 09/13/24 08:00 09/13/24 12:00 09/13/24 16:00 Temperature 97.0 F L 97.5 F L Pulse Rate 83 88 78 Respiratory Rate 20 18 Blood Pressure 133/59 L 147/71 H Pulse Oximetry 97 98 Oxygen Delivery 09/13/24 16:00 09/13/24 20:00 09/13/24 20:00 Temperature 98.4 F Pulse Rate 77 77 77 Respiratory Rate 16 16 Blood Pressure 148/82 H Pulse Oximetry 100 100 Oxygen Delivery Room Air 09/13/24 20:00 09/13/24 23:37 09/14/24 00:00 Temperature 98.2 F Pulse Rate 81 82 83 Respiratory Rate 18 Blood Pressure 155/82 H Pulse Oximetry 100 Oxygen Delivery 09/14/24 04:00 09/14/24 04:00 Temperature 98.1 F Pulse Rate 86 84 Respiratory Rate 18 Blood Pressure 162/89 H Pulse Oximetry 100 Oxygen Delivery Intake/Output Intake/Output: Intake & Output 09/11/24 09/12/24 09/13/24 09/14/24 23:59 23:59 23:59 23:59 Intake Total 1999 1238 3700 300 Balance 1999 1238 3700 300 Meds/Results Medications: Active Medications Generic Name Dose Route Start Last Admin Trade Name Freq PRN Reason Stop Dose Admin Acetaminophen 650 mg 09/07/24 08:19 09/09/24 09:29 Acetaminophen 325 Mg Tablet PO 650 mg Q4H PRN Administration Mild Pain (1-3) or Fever Hydrocodone Bitart/Acetaminophen 1 tab 09/07/24 08:19 09/12/24 22:09 Hydrocodone/Acetaminophen (*Crx) 5-325 Mg Tablet PO 1 tab Q4H PRN Administration Moderate Pain (4-6) Amlodipine Besylate 5 mg 09/07/24 09:00 09/13/24 09:32 Amlodipine Besylate 5 Mg Tablet PO 5 mg QAM NAHOMI Administration Apixaban 2.5 mg 09/07/24 09:30 09/13/24 22:26 Apixaban 2.5 Mg Tablet PO 2.5 mg Q12HR NAHOMI Administration Artificial Tears 1 drop 09/07/24 09:35 09/13/24 22:26 Artificial Tears Ophth Soln 15 Ml Bottle RIGHT EYE 1 drop Q12HR NAHOMI Administration Brimonidine Tartrate 1 drop 09/07/24 09:30 09/13/24 22:27 Brimonidine Tartrate 0.2% Op Soln 5 Ml Btl EACH EYE 1 drop Q12HR NAHOMI Administration Dextrose 12.5 gm 09/07/24 09:15 Dextrose 50% 25 Gm/50 Ml Syringe IV PUSH PRN PRN Hypoglycemia Protocol Dorzolamide HCl 1 drop 09/07/24 09:30 09/13/24 22:26 Dorzolamide Hcl 2% Ophth Drops RIGHT EYE 1 drop Q12HR NAHOMI Administration Famotidine 20 mg 09/07/24 21:00 09/13/24 22:26 Famotidine 20 Mg/2 Ml Vial IV PUSH 20 mg Q12HR NAHOMI Administration Glucagon 1 mg 09/07/24 09:15 Glucagon For Inj 1 Mg Vial IM PRN PRN Hypoglycemia Protocol Glucose 15 gm 09/07/24 09:15 Glucose Oral Gel 15 Gm Of Glucse In 37.5 Gm Tube PO PRN PRN Hypoglycemia Protocol Hydralazine HCl 50 mg 09/07/24 13:00 09/14/24 06:15 Hydralazine Hcl 50 Mg Tablet PO 50 mg Q8HR NAHOMI Administration Dextrose 1,000 mls @ 100 mls/hr 09/07/24 09:15 Dextrose 5% 1,000 Ml IVPB PRN PRN Hypoglycemia Protocol Dextrose/Lactated Ringer's 1,000 mls @ 100 mls/hr 09/10/24 20:05 09/13/24 23:55 Dextrose 5%/Lactated Ringers IV CONT 100 mls/hr .Q10H NAHOMI Administration Ceftriaxone Sodium 1 gm in 50 mls @ 100 mls/hr 09/13/24 07:00 09/14/24 06:45 Rocephin 1 Gm/Ns 50 Ml IVPB Infused Q24H NAHOMI Infusion Insulin Aspart 2 - 5 units 09/07/24 12:00 09/14/24 06:15 Insulin Aspart (*Bkc) 100 Units/Ml SUB-Q 2 units Q6HR NAHOMI Administration Protocol Loperamide HCl 2 mg 09/08/24 08:12 09/13/24 18:38 Loperamide Hcl 2 Mg Capsule PO 2 mg Q6HR PRN Administration Diarrhea Metoprolol Succinate 100 mg 09/07/24 09:00 09/13/24 09:32 Metoprolol Succinate Ext Rel 100 Mg Tabcr PO 100 mg QAM NAHOMI Administration Morphine Sulfate 2 mg 09/07/24 08:19 09/11/24 22:23 Morphine Sulfate (*Crx) 2 Mg/Ml Inj IV PUSH 2 mg Q4H PRN Administration Pain Rated 7-10 Naloxone HCl 0.1 mg 09/07/24 08:19 Naloxone Hcl 0.4 Mg/Ml Vial IV PUSH Q2M PRN Opiate Reversal Ondansetron HCl 4 mg 09/07/24 09:15 09/13/24 14:52 Ondansetron Inj 4 Mg/2 Ml Vial IV PUSH 4 mg Q6H PRN Administration Nausea And Vomiting Perflutren Lipid Microsphere 0 ml 09/13/24 14:27 Perflutren Lipid Microspheres 1.5 Ml Vial Diluted To 10 Ml Total Volume IV PUSH 09/16/24 14:28 ONCE PRN adequate visualization Protocol Polysaccharide Iron Complex 150 mg 09/07/24 17:00 09/13/24 18:45 Polysaccharide Iron Complex 150 Mg Capsule PO 150 mg BIDWM NAHOMI Administration Prednisone 40 mg 09/13/24 08:00 09/13/24 09:32 Prednisone 20 Mg Tablet PO 40 mg DAILY@0800 NAHOMI Administration Rosuvastatin Calcium 5 mg 09/07/24 09:00 09/13/24 09:32 Rosuvastatin 5 Mg Tablet PO 5 mg QAM NAHOMI Administration Sodium Bicarbonate 1,300 mg 09/10/24 09:00 09/13/24 18:38 Sodium Bicarbonate Tab 650 Mg Tablet PO 1,300 mg TID NAHOMI Administration Sucralfate 1,000 mg 09/07/24 11:30 09/14/24 06:15 Sucralfate Susp 100 Mg/Ml 10 Ml Udc PO 1,000 mg ACHS NAHOMI Administration Timolol Maleate 1 drop 09/07/24 09:35 09/13/24 22:26 Timolol Maleate 0.5% Op Soln 5 Ml Bottle EACH EYE 1 drop Q12HR NAHOMI Administration Radiology Results: ITS Impressions Abdomen/Pelvis CT 09/07/24 05:37 Impression: Minimal bilateral pleural effusions. Horseshoe kidney. Chest X-Ray 09/07/24 06:11 Impression: Linear scarring or atelectasis at the lung bases, otherwise clear lungs. Labs Labs: Laboratory Results - last 24 hr 09/10/24 09/13/24 09/13/24 06:17 06:50 08:08 WBC 3.5 L RBC 2.83 L Hgb 7.6 L Hct 24.7 L MCV 87.3 MCH 26.9 MCHC 30.8 L RDW 16.5 H Plt Count 147 L MPV 12.6 H Immature Gran % (Auto) 3.1 H Neut % (Auto) 49.2 Lymph % (Auto) 29.1 [place] % (Auto) 17.7 H Eos % (Auto) 0.3 Baso % (Auto) 0.6 Lymph # (Auto) 1.02 [place] # (Auto) 0.6 Eos # (Auto) 0.0 Baso # (Auto) 0.0 Abs Immat Gran (auto) 0.11 H Absolute Neuts (auto) 1.7 Absolute Nucleated RBC 0.000 Nucleated RBC % 0.0 Sodium 141 Potassium 3.2 L Chloride 119 H Carbon Dioxide 17 L Anion Gap 5 BUN 29 H Creatinine 2.50 H Estim Creat Clear Calc 25 Estimated GFR 20 L Glucose 119 H POC Capillary Glucose 119 H Calcium 7.6 L Total Bilirubin 0.5 AST 51 H ALT 41 H Alkaline Phosphatase 177 H Total Protein 5.0 L Albumin 2.0 L Anti-Proteinase 3 FEIA c/o 1.9 <1.0 Anti-Myeloperoxidase 1.4 H Tot Complement (CH50) >60 H 09/13/24 09/13/24 09/13/24 11:52 16:59 23:24 WBC RBC Hgb Hct MCV MCH MCHC RDW Plt Count MPV Immature Gran % (Auto) Neut % (Auto) Lymph % (Auto) [place] % (Auto) Eos % (Auto) Baso % (Auto) Lymph # (Auto) [place] # (Auto) Eos # (Auto) Baso # (Auto) Abs Immat Gran (auto) Absolute Neuts (auto) Absolute Nucleated RBC Nucleated RBC % Sodium Potassium Chloride Carbon Dioxide Anion Gap BUN Creatinine Estim Creat Clear Calc Estimated GFR Glucose POC Capillary Glucose 183 H 212 H 271 H Calcium Total Bilirubin AST ALT Alkaline Phosphatase Total Protein Albumin Anti-Proteinase 3 FEIA c/o 1.9 Anti-Myeloperoxidase Tot Complement (CH50) 09/14/24 05:32 WBC RBC Hgb Hct MCV MCH MCHC RDW Plt Count MPV Immature Gran % (Auto) Neut % (Auto) Lymph % (Auto) [place] % (Auto) Eos % (Auto) Baso % (Auto) Lymph # (Auto) [place] # (Auto) Eos # (Auto) Baso # (Auto) Abs Immat Gran (auto) Absolute Neuts (auto) Absolute Nucleated RBC Nucleated RBC % Sodium Potassium Chloride Carbon Dioxide Anion Gap BUN Creatinine Estim Creat Clear Calc Estimated GFR Glucose POC Capillary Glucose 219 H Calcium Total Bilirubin AST ALT Alkaline Phosphatase Total Protein Albumin Anti-Proteinase 3 FEIA c/o 1.9 Anti-Myeloperoxidase Tot Complement (CH50)
[2024-09-14] MEDS: POLYSACCHARIDE IRON COMPLEX 150 MG CAPSULE PO ×2 (08:43→17:33)
[2024-09-14] MEDS: APIXABAN 2.5 MG TABLET PO ×2 (08:44→21:15)
[2024-09-14] MEDS: amLODIPine BESYLATE 5 MG TABLET PO (08:44)
[2024-09-14] MEDS: predniSONE 20 MG TABLET 40 MG PO (08:44)
[2024-09-14] MEDS: METOPROLOL SUCCINATE EXT REL 100 MG TABCR PO (08:44)
[2024-09-14] MEDS: SODIUM BICARBONATE TAB 650 MG TABLET 1300 MG PO ×3 (08:44→17:33)
[2024-09-14] MEDS: ROSUVASTATIN 5 MG TABLET PO (08:44)
[2024-09-14] MEDS: TIMOLOL MALEATE 0.5% OP SOLN 5 ML BOTTLE 1 DROP EACH EYE ×2 (08:46→21:28)
[2024-09-14] MEDS: ARTIFICIAL TEARS OPHTH SOLN 15 ML BOTTLE 1 DROP RIGHT EYE ×2 (08:46→21:25)
[2024-09-14] MEDS: DORZOLAMIDE HCL 2% OPHTH DROPS 1 DROP RIGHT EYE ×2 (08:46→21:27)
[2024-09-14] MEDS: FAMOTIDINE 20 MG/2 ML VIAL IV PUSH ×2 (08:46→21:18)
[2024-09-14] MEDS: BRIMONIDINE TARTRATE 0.2% OP SOLN 5 ML BTL 1 DROP EACH EYE ×2 (08:46→21:26)
--- NOTE | 2024-09-14 08:54 | P.PNIM_ITS ---
Progress Note: A&P Assessment and Plan (1) BUTCH (acute kidney injury): Code(s): N17.9 - Acute kidney failure, unspecified Status: Acute Assessment and Plan: improving CKD stage 4. Creatinine 4.21 on admission, improving with fluids. Complicated by signficant hypokalemia and hypomagnesemia as noted hold nephrotoxic medications * Creatinine improving * Nephrology consulted, appreciate recommendations: ruling out de agata glomerulonephritis * continue sodium bicarb tabs * Continue fluids * UA 2+ leukocyte esterase * Repleting mag and phos * Monitor on telemetry * Continue to provide IVF as pt is not taking in oral nutrition well. (2) Urinary tract infection: Code(s): N39.0 - Urinary tract infection, site not specified Status: Inactive Assessment and Plan: UA on 09/07/2024- negativefor acute UTI, repeat on 09/13/2024 with 2+ leukocyte esterase IV Rocephin (3) Enteritis: Code(s): K52.9 - Noninfective gastroenteritis and colitis, unspecified Status: Acute Assessment and Plan: nausea and vomiting improving. Intermittently tolerating a diet. * Carafate with meals, pepcid. Change to PPI after stool for H pylori sent * Fluids and antiemetics * GI consulted, * Holding colchicine * C-diff negative. * Stool for H.pylori ordered and pending. 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 * Continue hypoglycemic protocol * Continue SSI * Continue Diabetic diet * Starting steroids, monitor blood sugars (6) Anemia: Code(s): D64.9 - Anemia, unspecified Status: Acute Assessment and Plan: Baseline H&H 04/18.7. 06/24.9 on admission in the setting of dehydration. Occult blood of stool was obtained and is negative. * H&H stable * Anemia likely due to degree of renal disease. * Follow CBC * Pancytopenia, may be viral (7) Hypertension: Code(s): I10 - Essential (primary) hypertension Status: Chronic Assessment and Plan: Home meds: Hydralazine 50mg TID, Metoprolol 100mg ER, Amlodipine 5mg * Blood pressure controlled * Continue home antihypertensives (8) Retinal detachment: Code(s): H33.20 - Serous retinal detachment, unspecified eye Status: Chronic Assessment and Plan: patient has right eye detachment, and cataracts * Safety precautions due to low eyesight. * continue home eye drops (9) Pleural effusion: Code(s): J90 - Pleural effusion, not elsewhere classified Status: Chronic Assessment and Plan: stable from earlier this month no SOB (10) Failure to thrive: Status: Acute Assessment and Plan: No s/s of overt malnutrition present. * PT OT evaluate and treat * Incident Response Lead consult * Calorie count ordered as pt is not eating. * Daily weight. (11) Hypokalemia: Code(s): E87.6 - Hypokalemia Status: Acute Assessment and Plan: replete as needed --Follow BMP, Mag, phos (12) Pericarditis: Code(s): I31.9 - Disease of pericardium, unspecified Status: Acute Assessment and Plan: Recent pericarditis, started on ibuprofen and colcicine 0.6mg BID and patient reports pain resolved --Holding NSAIDs for BUTCH/CKD --Holding colchine for GI symptoms --Start Prednisone 40mg in AM with a taper --Cardiology consult echocardiogram pending Time Spent With Patient Time with patient: Greater than 35 minutes Subjective Date/time seen: 09/14/24 08:54 Interval history: The patient feels much better today, is hungry and does not have further nausea or diarrhea. now with a UTI Review of Systems Review of Systems: 12 systems were reviewed and are negative except for as per HPI. All systems reviewed & are unremarkable except as noted in HPI and below Exam Narrative: General: Acutely ill appearing, appears older than stated age, sitting up in the chair at this time. HEENT: normocephalic, atraumatic. Mucous membranes dry. Neck supple without JVD, lymphadenopathy, or bruit. Respiratory: clear to auscultation bilaterally. No rales/rhonic/wheezes. Cardiovascular: Regular rate and rhythm, normal S1-S2 upon auscultation. No murmurs, rubs, or clicks. PMI is nondisplaced, capillary refill less than 3 second. Abdomen: Soft, round, no pulsatile masses, She continues to report diffuse TTP. No rebound, no guarding. No CVA tenderness, no hepatosplenomegaly. Bowel sounds present to all four quadrants. Extremities: No cyanosis, clubbing, or edema present. Pulses are palpable 2/2. Active ROM to all four extremities. Neuro: Alert and orientated x 4. PERRLA. Cranial nerves 2-12 intact without focal deficit. Skin: Warm, dry, and intact, without rash, erythema, or lesion. Psych: pleasant, cooperative, normal speech, flatl affect, no hallucinations, no dysarthia Objective Data Vital Signs Vital Signs: Vital Signs - 24 hr 09/13/24 12:00 09/13/24 16:00 09/13/24 16:00 Temperature 97.0 F L 97.5 F L Pulse Rate 88 78 77 Respiratory Rate 20 18 Blood Pressure 133/59 L 147/71 H Pulse Oximetry 97 98 Oxygen Delivery 09/13/24 20:00 09/13/24 20:00 09/13/24 20:00 Temperature 98.4 F Pulse Rate 77 77 81 Respiratory Rate 16 16 Blood Pressure 148/82 H Pulse Oximetry 100 100 Oxygen Delivery Room Air 09/13/24 23:37 09/14/24 00:00 09/14/24 04:00 Temperature 98.2 F 98.1 F Pulse Rate 82 83 86 Respiratory Rate 18 18 Blood Pressure 155/82 H 162/89 H Pulse Oximetry 100 100 Oxygen Delivery 09/14/24 04:00 09/14/24 08:44 Temperature Pulse Rate 84 76 Respiratory Rate Blood Pressure Pulse Oximetry Oxygen Delivery Intake/Output Intake/Output: Intake & Output 09/11/24 09/12/24 09/13/24 09/14/24 23:59 23:59 23:59 23:59 Intake Total 1999 1238 3700 300 Balance 1999 1238 3700 300 Meds/Results Medications: Active Medications Generic Name Dose Route Start Last Admin Trade Name Freq PRN Reason Stop Dose Admin Acetaminophen 650 mg 09/07/24 08:19 09/09/24 09:29 Acetaminophen 325 Mg Tablet PO 650 mg Q4H PRN Administration Mild Pain (1-3) or Fever Hydrocodone Bitart/Acetaminophen 1 tab 09/07/24 08:19 09/12/24 22:09 Hydrocodone/Acetaminophen (*Crx) 5-325 Mg Tablet PO 1 tab Q4H PRN Administration Moderate Pain (4-6) Amlodipine Besylate 5 mg 09/07/24 09:00 09/14/24 08:44 Amlodipine Besylate 5 Mg Tablet PO 5 mg QAM NAHOMI Administration Apixaban 2.5 mg 09/07/24 09:30 09/14/24 08:44 Apixaban 2.5 Mg Tablet PO 2.5 mg Q12HR NAHOMI Administration Artificial Tears 1 drop 09/07/24 09:35 09/14/24 08:46 Artificial Tears Ophth Soln 15 Ml Bottle RIGHT EYE 1 drop Q12HR NAHOMI Administration Brimonidine Tartrate 1 drop 09/07/24 09:30 09/14/24 08:46 Brimonidine Tartrate 0.2% Op Soln 5 Ml Btl EACH EYE 1 drop Q12HR NAHOMI Administration Dextrose 12.5 gm 09/07/24 09:15 Dextrose 50% 25 Gm/50 Ml Syringe IV PUSH PRN PRN Hypoglycemia Protocol Dorzolamide HCl 1 drop 09/07/24 09:30 09/14/24 08:46 Dorzolamide Hcl 2% Ophth Drops RIGHT EYE 1 drop Q12HR NAHOMI Administration Famotidine 20 mg 09/07/24 21:00 09/14/24 08:46 Famotidine 20 Mg/2 Ml Vial IV PUSH 20 mg Q12HR NAHOMI Administration Glucagon 1 mg 09/07/24 09:15 Glucagon For Inj 1 Mg Vial IM PRN PRN Hypoglycemia Protocol Glucose 15 gm 09/07/24 09:15 Glucose Oral Gel 15 Gm Of Glucse In 37.5 Gm Tube PO PRN PRN Hypoglycemia Protocol Hydralazine HCl 50 mg 09/07/24 13:00 09/14/24 06:15 Hydralazine Hcl 50 Mg Tablet PO 50 mg Q8HR NAHOMI Administration Dextrose 1,000 mls @ 100 mls/hr 09/07/24 09:15 Dextrose 5% 1,000 Ml IVPB PRN PRN Hypoglycemia Protocol Dextrose/Lactated Ringer's 1,000 mls @ 100 mls/hr 09/10/24 20:05 09/13/24 23:55 Dextrose 5%/Lactated Ringers IV CONT 100 mls/hr .Q10H NAHOMI Administration Ceftriaxone Sodium 1 gm in 50 mls @ 100 mls/hr 09/13/24 07:00 09/14/24 06:45 Rocephin 1 Gm/Ns 50 Ml IVPB Infused Q24H NAHOMI Infusion Insulin Aspart 2 - 5 units 09/07/24 12:00 09/14/24 06:15 Insulin Aspart (*Bkc) 100 Units/Ml SUB-Q 2 units Q6HR NAHOMI Administration Protocol Loperamide HCl 2 mg 09/08/24 08:12 09/13/24 18:38 Loperamide Hcl 2 Mg Capsule PO 2 mg Q6HR PRN Administration Diarrhea Metoprolol Succinate 100 mg 09/07/24 09:00 09/14/24 08:44 Metoprolol Succinate Ext Rel 100 Mg Tabcr PO 100 mg QAM NAHOMI Administration Morphine Sulfate 2 mg 09/07/24 08:19 09/11/24 22:23 Morphine Sulfate (*Crx) 2 Mg/Ml Inj IV PUSH 2 mg Q4H PRN Administration Pain Rated 7-10 Naloxone HCl 0.1 mg 09/07/24 08:19 Naloxone Hcl 0.4 Mg/Ml Vial IV PUSH Q2M PRN Opiate Reversal Ondansetron HCl 4 mg 09/07/24 09:15 09/13/24 14:52 Ondansetron Inj 4 Mg/2 Ml Vial IV PUSH 4 mg Q6H PRN Administration Nausea And Vomiting Perflutren Lipid Microsphere 0 ml 09/13/24 14:27 Perflutren Lipid Microspheres 1.5 Ml Vial Diluted To 10 Ml Total Volume IV PUSH 09/16/24 14:28 ONCE PRN adequate visualization Protocol Polysaccharide Iron Complex 150 mg 09/07/24 17:00 09/14/24 08:43 Polysaccharide Iron Complex 150 Mg Capsule PO 150 mg BIDWM NAHOMI Administration Prednisone 40 mg 09/13/24 08:00 09/14/24 08:44 Prednisone 20 Mg Tablet PO 40 mg DAILY@0800 NAHOMI Administration Rosuvastatin Calcium 5 mg 09/07/24 09:00 09/14/24 08:44 Rosuvastatin 5 Mg Tablet PO 5 mg QAM NAHOMI Administration Sodium Bicarbonate 1,300 mg 09/10/24 09:00 09/14/24 08:44 Sodium Bicarbonate Tab 650 Mg Tablet PO 1,300 mg TID NAHOMI Administration Sucralfate 1,000 mg 09/07/24 11:30 09/14/24 06:15 Sucralfate Susp 100 Mg/Ml 10 Ml Udc PO 1,000 mg ACHS NAHOMI Administration Timolol Maleate 1 drop 09/07/24 09:35 09/14/24 08:46 Timolol Maleate 0.5% Op Soln 5 Ml Bottle EACH EYE 1 drop Q12HR NAHOMI Administration Radiology Results: ITS Impressions Abdomen/Pelvis CT 09/07/24 05:37 Impression: Minimal bilateral pleural effusions. Horseshoe kidney. Chest X-Ray 09/07/24 06:11 Impression: Linear scarring or atelectasis at the lung bases, otherwise clear lungs. Labs Labs: Laboratory Results - last 24 hr 09/10/24 09/13/24 09/13/24 06:17 11:52 16:59 POC Capillary Glucose 183 H 212 H Anti-Proteinase 3 FEIA c/o 1.9 <1.0 Anti-Myeloperoxidase 1.4 H Tot Complement (CH50) >60 H 09/13/24 09/14/24 23:24 05:32 POC Capillary Glucose 271 H 219 H Anti-Proteinase 3 FEIA c/o 1.9 Anti-Myeloperoxidase Tot Complement (CH50) Quality VTE Prophylaxis VTE prophylaxis: pharmacologic ordered
[2024-09-14] MEDS: DEXTROSE 5%/LACTATED RINGERS 1,000 ML 100 ML IV CONT (09:29)
--- NOTE | 2024-09-14 11:14 | PCOTNOTE ---
Patient unavailable for OT treatment session at this time. Patient having an ECHO done at this time.
[2024-09-14 12:16] LABS: Glucose Point of Care 244 mg/dl (65-105)
--- NOTE | 2024-09-14 14:02 | PCOTNOTE ---
Attempted this afternoon. Patient declined to participate, stated, she had just got back into bed, done for today, tired . Per RN, Patient was fatigued and took increased assistance getting osmany to bed this afternoon.
[2024-09-14 16:00] LABS: Basophils Percent Auto 0.4 % (0.2-1.2); Hematocrit 22.8 % (37.0-47.0); Hemoglobin 7.4 g/dL (12.0-15.0); Immature Granulocyte Absolute 0.13 K/mm3 (0.00-0.031); Immature Granulocyte Percent A 2.5 % (0-0.5); Lymphocytes Absolute Auto 0.64 K/mm3 (0.9-3.2); Lymphocytes Percent Auto 12.2 % (18.3-44.2); Mean Corpuscular HGB Conc 32.5 g/dl (32-36); Mean Corpuscular Hemoglobin 27.7 pg (26-34); Mean Corpuscular Volume 85.4 fl (80-100); Mean Platelet Volume 12.4 fl (7.4-10.4); Monocytes Absolute Auto 0.3 K/mm3 (0.1-0.6); Monocytes Percent Auto 6.3 % (2.6-8.5); Neutrophils Absolute Auto 4.1 K/mm3 (1.3-6.7); Neutrophils Percent Auto 78.6 % (45.5-73.1); Platelet Count Result 168 k/mm3 (150-375); Red Blood Count 2.67 M/mm3 (4.2-5.4); White Blood Count 5.2 K/mm3 (4.5-10.0)
[2024-09-14 16:10] LABS: Alanine Aminotransferase 39 U/L (6-35); Albumin Level 2.2 g/dL (3.5-5.1); Alkaline Phosphatase 161 U/L (38-126); Anion Gap 9 mmol/L (4-12); Aspartate Amino Transferase 41 U/L (14-36); Bilirubin,Total 0.4 mg/dL (0.2-1.3); Blood Urea Nitrogen 31 mg/dL (7-17); Calcium 7.5 mg/dL (8.4-10.2); Carbon Dioxide 16 mmol/L (22-30); Chloride 114 mmol/L (98-107); Estimated CRCL calculation 27 ml/min; Estimated Glomerular Filt Rate 21; Glucose 266 mg/dL (65-110); Potassium 3.6 mmol/L (3.4-5.0); Sodium 139 mmol/L (137-145)
--- NOTE | 2024-09-14 16:12 | P.PNNP_ITS ---
Progress Note: A&P Assessment and Plan (1) BUTCH (acute kidney injury): Code(s): N17.9 - Acute kidney failure, unspecified Status: Acute Assessment and Plan: * acute kidney injury secondary to volume depletion * chronic kidney disease stage 4 underlying * Diabetic renal disease type 2 * hypertensive renal disease * History of metabolic acidosis on sodium bicarbonate therapy. this is exacerbated by the diarrhea but has baseline metabolic acidosis secondary to renal failure. * anemia chronic kidney disease * pancytopenia * Positive antinuclear antibody recently 1:1280 homogenous pattern * hypokalemia 09/14/24 Labs reviewed: --LDH is slightly elevated --urinalysis shows only a few red cells --C3 a bit low anti MPO antibody mildly positive, rest of the labs all unremarkable --elevated liver enzymes plan: -pancytopenia status:better -no clear indication that this is a glomerulonephritis. Will hold off on doing kidney biopsy. Weight has not substantially changed with IV fluids. She is probably adequately hydrated. Patient is on Eliquis making biopsy difficult -patient is currently on prednisone, seems to be helping -monitor renal function (2) Chronic kidney disease, stage IV (severe): Code(s): N18.4 - Chronic kidney disease, stage 4 (severe) Status: Chronic Subjective Date/time seen: 09/14/24 16:12 Interval history: Follow-up acute on chronic renal failure Review of Systems Review of Systems: No diarrhea Feels better No SOB Appetite improved for the first time today Exam Narrative: Elderly, no SOB,, not in any acute distress however, dry skin, dry oral mucosa, skin turgor was diminished, regular rate rhythm, JVD negative, no gallop, no rub, equal breath sounds, no rub obese, soft nontender abdomen, no masses felt, edema negative, alert, oriented x3, follow-up of a flat affect Objective Data Vital Signs Vital Signs: Vital Signs - 24 hr 09/13/24 20:00 09/13/24 20:00 09/13/24 20:00 Temperature 36.9 C Pulse Rate 77 77 81 Respiratory Rate 16 16 Blood Pressure 148/82 H Pulse Oximetry 100 100 Oxygen Delivery Room Air 09/13/24 23:37 09/14/24 00:00 09/14/24 04:00 Temperature 36.8 C 36.7 C Pulse Rate 82 83 86 Respiratory Rate 18 18 Blood Pressure 155/82 H 162/89 H Pulse Oximetry 100 100 Oxygen Delivery 09/14/24 04:00 09/14/24 08:00 09/14/24 08:02 Temperature 36.7 C Pulse Rate 84 70 92 Respiratory Rate 18 Blood Pressure 160/80 H Pulse Oximetry 100 Oxygen Delivery 09/14/24 08:40 09/14/24 08:44 09/14/24 12:00 Temperature 36.6 C Pulse Rate 76 76 74 Respiratory Rate 18 18 Blood Pressure 150/80 H Pulse Oximetry 100 100 Oxygen Delivery Room Air 09/14/24 12:00 09/14/24 13:00 09/14/24 16:00 Temperature 36.9 C 36.5 C Pulse Rate 91 76 85 Respiratory Rate 20 20 Blood Pressure 152/80 H 155/79 H Pulse Oximetry 100 100 Oxygen Delivery Intake/Output Intake/Output: Intake & Output 09/11/24 09/12/24 09/13/24 09/14/24 23:59 23:59 23:59 23:59 Intake Total 1999 9290 3700 1840 Balance 1999 1238 3700 1840 Meds/Results Medications: Active Medications Generic Name Dose Route Start Last Admin Trade Name Freq PRN Reason Stop Dose Admin Acetaminophen 650 mg 09/07/24 08:19 09/09/24 09:29 Acetaminophen 325 Mg Tablet PO 650 mg Q4H PRN Administration Mild Pain (1-3) or Fever Hydrocodone Bitart/Acetaminophen 1 tab 09/07/24 08:19 09/12/24 22:09 Hydrocodone/Acetaminophen (*Crx) 5-325 Mg Tablet PO 1 tab Q4H PRN Administration Moderate Pain (4-6) Amlodipine Besylate 5 mg 09/07/24 09:00 09/14/24 08:44 Amlodipine Besylate 5 Mg Tablet PO 5 mg QAM NAHOMI Administration Apixaban 2.5 mg 09/07/24 09:30 09/14/24 08:44 Apixaban 2.5 Mg Tablet PO 2.5 mg Q12HR NAHOMI Administration Artificial Tears 1 drop 09/07/24 09:35 09/14/24 08:46 Artificial Tears Ophth Soln 15 Ml Bottle RIGHT EYE 1 drop Q12HR NAHOMI Administration Brimonidine Tartrate 1 drop 09/07/24 09:30 09/14/24 08:46 Brimonidine Tartrate 0.2% Op Soln 5 Ml Btl EACH EYE 1 drop Q12HR NAHOMI Administration Dextrose 12.5 gm 09/07/24 09:15 Dextrose 50% 25 Gm/50 Ml Syringe IV PUSH PRN PRN Hypoglycemia Protocol Dorzolamide HCl 1 drop 09/07/24 09:30 09/14/24 08:46 Dorzolamide Hcl 2% Ophth Drops RIGHT EYE 1 drop Q12HR NAHOMI Administration Famotidine 20 mg 09/07/24 21:00 09/14/24 08:46 Famotidine 20 Mg/2 Ml Vial IV PUSH 20 mg Q12HR NAHOMI Administration Glucagon 1 mg 09/07/24 09:15 Glucagon For Inj 1 Mg Vial IM PRN PRN Hypoglycemia Protocol Glucose 15 gm 09/07/24 09:15 Glucose Oral Gel 15 Gm Of Glucse In 37.5 Gm Tube PO PRN PRN Hypoglycemia Protocol Hydralazine HCl 50 mg 09/07/24 13:00 09/14/24 13:25 Hydralazine Hcl 50 Mg Tablet PO 50 mg Q8HR NAHOMI Administration Dextrose 1,000 mls @ 100 mls/hr 09/07/24 09:15 Dextrose 5% 1,000 Ml IVPB PRN PRN Hypoglycemia Protocol Dextrose/Lactated Ringer's 1,000 mls @ 100 mls/hr 09/10/24 20:05 09/14/24 09:29 Dextrose 5%/Lactated Ringers IV CONT 100 mls/hr .Q10H NAHOMI Administration Ceftriaxone Sodium 1 gm in 50 mls @ 100 mls/hr 09/13/24 07:00 09/14/24 06:45 Rocephin 1 Gm/Ns 50 Ml IVPB Infused Q24H NAHOMI Infusion Insulin Aspart 2 - 5 units 09/07/24 12:00 09/14/24 12:13 Insulin Aspart (*Bkc) 100 Units/Ml SUB-Q 2 units Q6HR NAHOMI Administration Protocol Loperamide HCl 2 mg 09/08/24 08:12 09/13/24 18:38 Loperamide Hcl 2 Mg Capsule PO 2 mg Q6HR PRN Administration Diarrhea Metoprolol Succinate 100 mg 09/07/24 09:00 09/14/24 08:44 Metoprolol Succinate Ext Rel 100 Mg Tabcr PO 100 mg QAM NAHOMI Administration Naloxone HCl 0.1 mg 09/07/24 08:19 Naloxone Hcl 0.4 Mg/Ml Vial IV PUSH Q2M PRN Opiate Reversal Ondansetron HCl 4 mg 09/07/24 09:15 09/13/24 14:52 Ondansetron Inj 4 Mg/2 Ml Vial IV PUSH 4 mg Q6H PRN Administration Nausea And Vomiting Perflutren Lipid Microsphere 0 ml 09/13/24 14:27 Perflutren Lipid Microspheres 1.5 Ml Vial Diluted To 10 Ml Total Volume IV PUSH 09/16/24 14:28 ONCE PRN adequate visualization Protocol Polysaccharide Iron Complex 150 mg 09/07/24 17:00 09/14/24 08:43 Polysaccharide Iron Complex 150 Mg Capsule PO 150 mg BIDWM NAHOMI Administration Prednisone 40 mg 09/13/24 08:00 09/14/24 08:44 Prednisone 20 Mg Tablet PO 40 mg DAILY@0800 NAHOMI Administration Rosuvastatin Calcium 5 mg 09/07/24 09:00 09/14/24 08:44 Rosuvastatin 5 Mg Tablet PO 5 mg QAM NAHOMI Administration Sodium Bicarbonate 1,300 mg 09/10/24 09:00 09/14/24 12:19 Sodium Bicarbonate Tab 650 Mg Tablet PO 1,300 mg TID NAHOMI Administration Sucralfate 1,000 mg 09/07/24 11:30 09/14/24 11:14 Sucralfate Susp 100 Mg/Ml 10 Ml Udc PO 1,000 mg ACHS NAHOMI Administration Timolol Maleate 1 drop 09/07/24 09:35 09/14/24 08:46 Timolol Maleate 0.5% Op Soln 5 Ml Bottle EACH EYE 1 drop Q12HR NAHOMI Administration Radiology Results: ITS Impressions Abdomen/Pelvis CT 09/07/24 05:37 Impression: Minimal bilateral pleural effusions. Horseshoe kidney. Chest X-Ray 09/07/24 06:11 Impression: Linear scarring or atelectasis at the lung bases, otherwise clear lungs. Labs Labs: Laboratory Results - last 24 hr 09/13/24 09/13/24 09/14/24 16:59 23:24 05:32 WBC RBC Hgb Hct MCV MCH MCHC RDW Plt Count MPV Immature Gran % (Auto) Neut % (Auto) Lymph % (Auto) [place] % (Auto) Eos % (Auto) Baso % (Auto) Lymph # (Auto) [place] # (Auto) Eos # (Auto) Baso # (Auto) Abs Immat Gran (auto) Absolute Neuts (auto) Absolute Nucleated RBC Nucleated RBC % Sodium Potassium Chloride Carbon Dioxide Anion Gap BUN Creatinine Estim Creat Clear Calc Estimated GFR Glucose POC Capillary Glucose 212 H 271 H 219 H Calcium Total Bilirubin AST ALT Alkaline Phosphatase Total Protein Albumin 09/14/24 09/14/24 12:04 15:52 WBC 5.2 RBC 2.67 L Hgb 7.4 L Hct 22.8 L MCV 85.4 MCH 27.7 MCHC 32.5 RDW 17.0 H Plt Count 168 MPV 12.4 H Immature Gran % (Auto) 2.5 H Neut % (Auto) 78.6 H Lymph % (Auto) 12.2 L [place] % (Auto) 6.3 Eos % (Auto) 0.0 Baso % (Auto) 0.4 Lymph # (Auto) 0.64 L [place] # (Auto) 0.3 Eos # (Auto) 0.0 Baso # (Auto) 0.0 Abs Immat Gran (auto) 0.13 H Absolute Neuts (auto) 4.1 Absolute Nucleated RBC 0.000 Nucleated RBC % 0.0 Sodium 139 Potassium 3.6 Chloride 114 H Carbon Dioxide 16 L Anion Gap 9 BUN 31 H Creatinine 2.38 H Estim Creat Clear Calc 27 Estimated GFR 21 L Glucose 266 H POC Capillary Glucose 244 H Calcium 7.5 L Total Bilirubin 0.4 AST 41 H ALT 39 H Alkaline Phosphatase 161 H Total Protein 5.0 L Albumin 2.2 L
[2024-09-14] MEDS: LACTATED RINGERS 1,000 ML 125 ML IV CONT (17:32)
[2024-09-14] MEDS: POTASSIUM CHLORIDE 20 MEQ PACKET (FOR LIQUID) PO (17:32)
[2024-09-14 18:24] LABS: Glucose Point of Care 274 mg/dl (65-105)
[2024-09-14 23:50] LABS: Glucose Point of Care 267 mg/dl (65-105)
[2024-09-15] VITALS (7 sets, daily range): BP systolic 160–173; BP diastolic 78–89; PULSE 84–91; RESP 16–19; TEMP 36.4–37.3; O2SAT 100
[2024-09-15] MEDS: INSULIN ASPART (*BKC) 100 UNITS/ML SUB-Q ×4 (00:21→16:56)
[2024-09-15 05:43] LABS: Glucose Point of Care 206 mg/dl (65-105)
[2024-09-15] MEDS: hydrALAZINE HCL 50 MG TABLET PO ×3 (06:13→21:44)
[2024-09-15] MEDS: SUCRALFATE SUSP 100 MG/ML 10 ML UDC 1000 MG PO ×4 (06:14→21:43)
[2024-09-15] MEDS: LACTATED RINGERS 1,000 ML 125 ML IV CONT ×3 (06:20→23:46)
[2024-09-15 08:17] LABS: Glucose Point of Care 183 mg/dl (65-105)
[2024-09-15 08:40] LABS: Hematocrit 23.7 % (37.0-47.0); Hemoglobin 7.7 g/dL (12.0-15.0); Mean Corpuscular HGB Conc 32.5 g/dl (32-36); Mean Corpuscular Hemoglobin 27.6 pg (26-34); Mean Corpuscular Volume 84.9 fl (80-100); Mean Platelet Volume 12.2 fl (7.4-10.4); Platelet Count Result 204 k/mm3 (150-375); Red Blood Count 2.79 M/mm3 (4.2-5.4); Red Cell Distribution Width 17.2 % (11.5-14.5); White Blood Count 9.6 K/mm3 (4.5-10.0)
[2024-09-15] MEDS: APIXABAN 2.5 MG TABLET PO ×2 (08:42→21:44)
[2024-09-15] MEDS: SODIUM BICARBONATE TAB 650 MG TABLET 1300 MG PO ×3 (08:42→16:56)
[2024-09-15] MEDS: METOPROLOL SUCCINATE EXT REL 100 MG TABCR PO (08:42)
[2024-09-15] MEDS: POLYSACCHARIDE IRON COMPLEX 150 MG CAPSULE PO ×2 (08:42→16:55)
[2024-09-15] MEDS: ROSUVASTATIN 5 MG TABLET PO (08:42)
[2024-09-15] MEDS: predniSONE 20 MG TABLET 40 MG PO (08:42)
[2024-09-15] MEDS: amLODIPine BESYLATE 5 MG TABLET PO (08:43)
[2024-09-15] MEDS: FAMOTIDINE 20 MG/2 ML VIAL IV PUSH ×2 (08:43→21:53)
[2024-09-15] MEDS: DORZOLAMIDE HCL 2% OPHTH DROPS 1 DROP RIGHT EYE ×2 (08:45→21:52)
[2024-09-15] MEDS: BRIMONIDINE TARTRATE 0.2% OP SOLN 5 ML BTL 1 DROP EACH EYE ×2 (08:45→21:51)
[2024-09-15] MEDS: TIMOLOL MALEATE 0.5% OP SOLN 5 ML BOTTLE 1 DROP EACH EYE ×2 (08:45→21:52)
[2024-09-15] MEDS: ARTIFICIAL TEARS OPHTH SOLN 15 ML BOTTLE 1 DROP RIGHT EYE ×2 (08:45→22:23)
[2024-09-15 08:50] LABS: Anion Gap 6 mmol/L (4-12); Blood Urea Nitrogen 33 mg/dL (7-17); Calcium 7.8 mg/dL (8.4-10.2); Carbon Dioxide 20 mmol/L (22-30); Chloride 113 mmol/L (98-107); Estimated CRCL calculation 30 ml/min; Estimated Glomerular Filt Rate 23; Glucose 180 mg/dL (65-110); Potassium 3.5 mmol/L (3.4-5.0); Sodium 139 mmol/L (137-145)
[2024-09-15 12:12] LABS: Glucose Point of Care 219 mg/dl (65-105)
--- NOTE | 2024-09-15 15:51 | PM.PNCARD ---
Progress Note: A&P Assessment and Plan (1) Atrial fibrillation: Code(s): I48.91 - Unspecified atrial fibrillation Status: Acute (2) Pericardial effusion: Code(s): I31.39 - Other pericardial effusion (noninflammatory) Status: Acute (3) Pericarditis: Code(s): I31.9 - Disease of pericardium, unspecified Status: Acute (4) Hypertension: Code(s): I10 - Essential (primary) hypertension Status: Chronic Plan Recent pericarditis, started on colchicine but did not tolerate due to side effects of nausea, emesis, diarrhea -symptoms resolved after stopping colchicine Moderate pericardial effusion by echo 08/03/2024-etiology most likely viral BUTCH on CKD Chronic anemia UTI Hypertension Diabetes mellitus Plan: Patient remains asymptomatic from the pericarditis Colchicine has been stopped because of adverse effects of diarrhea and emesis. Do not reinitiate Treated with NSAIDs on prior admission. Cannot give NSAIDs due to BUTCH. Agree with prednisone for now but there is some data to suggest recurrence of pericarditis associated with early steroid use. Slow taper is better Echo today showed normal LV function and no pericardial effusion Check and replace electrolytes to keep potassium greater than 4 and magnesium greater than 2 Continue hydralazine, amlodipine, metoprolol for blood pressure control Continue statin Management of other medical problems per primary team Subjective Date/time seen: 09/15/24 15:51 Interval history: HPI: Arely Ernandez is a 63 year old female with chronic kidney disease, diabetes mellitus type 2, recent pericarditis and moderate pericardial effusion for which she was started on anti-inflammatory therapy and Colchicine presented to the hospital with weakness, nausea, emesis, and diarrhea which limited her ability to eat and drink. Colchicine was stopped due to the side effects of nausea, emesis, diarrhea. She was noted to have BUTCH and does NSAIDs could not be used. She was started on low-dose prednisone. No chest pain, dizziness, lightheadedness, palpitations, presyncope, syncope, leg swelling, recent weight gain. Workup: TTE: Normal LV systolic function, no pericardial effusion Interval history: No chest pain, shortness of breath, dizziness, lightheadedness, syncope, palpitations, leg swelling, recent weight gain. No nausea, emesis, headache, abdominal pain, diarrhea. Review of Systems Review of Systems: A complete review of systems was performed and negative other than those mentioned HPI Exam Narrative: General: Alert oriented x3, no acute distress Neck: Supple, JVD + Chest: Bilaterally clear to auscultation, no rales or rhonchi Cardiac: S1, S2 +, regular rate, regular rhythm, no murmurs or rubs Extremities: No pedal edema, no skin rash Neurologic: Alert and oriented x3, no focal neurological deficits Objective Data Vital Signs Vital Signs: Vital Signs - 24 hr 09/14/24 16:00 09/14/24 16:02 09/14/24 20:00 Temperature 36.5 C 36.6 C Pulse Rate 85 87 87 Respiratory Rate 20 16 Blood Pressure 155/79 H 161/84 H Pulse Oximetry 100 100 09/14/24 20:00 09/15/24 00:00 09/15/24 00:00 Temperature 36.6 C Pulse Rate 87 85 88 Respiratory Rate 18 Blood Pressure 160/89 H Pulse Oximetry 100 09/15/24 03:57 09/15/24 04:00 09/15/24 08:00 Temperature 36.8 C 37.3 C Pulse Rate 91 85 85 Respiratory Rate 16 18 Blood Pressure 161/83 H 171/88 H Pulse Oximetry 100 100 09/15/24 12:00 Temperature 36.4 C Pulse Rate 85 Respiratory Rate 19 Blood Pressure 173/89 H Pulse Oximetry 100 Intake/Output Intake/Output: Intake & Output 09/12/24 09/13/24 09/14/24 09/15/24 23:59 23:59 23:59 23:59 Intake Total 1238 3700 2040 2200 Balance 1238 3700 2040 2200 Meds/Results Medications: Active Medications Generic Name Dose Route Start Last Admin Trade Name Freq PRN Reason Stop Dose Admin Acetaminophen 650 mg 09/07/24 08:19 09/09/24 09:29 Acetaminophen 325 Mg Tablet PO 650 mg Q4H PRN Administration Mild Pain (1-3) or Fever Hydrocodone Bitart/Acetaminophen 1 tab 09/07/24 08:19 09/12/24 22:09 Hydrocodone/Acetaminophen (*Crx) 5-325 Mg Tablet PO 1 tab Q4H PRN Administration Moderate Pain (4-6) Amlodipine Besylate 5 mg 09/07/24 09:00 09/15/24 08:43 Amlodipine Besylate 5 Mg Tablet PO 5 mg QAM NAHOMI Administration Apixaban 2.5 mg 09/07/24 09:30 09/15/24 08:42 Apixaban 2.5 Mg Tablet PO 2.5 mg Q12HR NAHOMI Administration Artificial Tears 1 drop 09/07/24 09:35 09/15/24 08:45 Artificial Tears Ophth Soln 15 Ml Bottle RIGHT EYE 1 drop Q12HR NAHOMI Administration Brimonidine Tartrate 1 drop 09/07/24 09:30 09/15/24 08:45 Brimonidine Tartrate 0.2% Op Soln 5 Ml Btl EACH EYE 1 drop Q12HR NAHOMI Administration Dextrose 12.5 gm 09/07/24 09:15 Dextrose 50% 25 Gm/50 Ml Syringe IV PUSH PRN PRN Hypoglycemia Protocol Dorzolamide HCl 1 drop 09/07/24 09:30 09/15/24 08:45 Dorzolamide Hcl 2% Ophth Drops RIGHT EYE 1 drop Q12HR NAHOMI Administration Famotidine 20 mg 09/07/24 21:00 09/15/24 08:43 Famotidine 20 Mg/2 Ml Vial IV PUSH 20 mg Q12HR NAHOMI Administration Glucagon 1 mg 09/07/24 09:15 Glucagon For Inj 1 Mg Vial IM PRN PRN Hypoglycemia Protocol Glucose 15 gm 09/07/24 09:15 Glucose Oral Gel 15 Gm Of Glucse In 37.5 Gm Tube PO PRN PRN Hypoglycemia Protocol Hydralazine HCl 50 mg 09/07/24 13:00 09/15/24 12:35 Hydralazine Hcl 50 Mg Tablet PO 50 mg Q8HR NAHOMI Administration Dextrose 1,000 mls @ 100 mls/hr 09/07/24 09:15 Dextrose 5% 1,000 Ml IVPB PRN PRN Hypoglycemia Protocol Ceftriaxone Sodium 1 gm in 50 mls @ 100 mls/hr 09/13/24 07:00 09/15/24 06:28 Rocephin 1 Gm/Ns 50 Ml IVPB 100 mls/hr Q24H NAHOMI Administration Lactated Ringer's 1,000 mls @ 125 mls/hr 09/14/24 16:35 09/15/24 15:37 Lr - Lactated Ringers Iv IV CONT 125 mls/hr .Q8H NAHOMI Administration Insulin Aspart 2 - 5 units 09/07/24 12:00 09/15/24 12:35 Insulin Aspart (*Bkc) 100 Units/Ml SUB-Q 2 units Q6HR NAHOMI Administration Protocol Loperamide HCl 2 mg 09/08/24 08:12 09/13/24 18:38 Loperamide Hcl 2 Mg Capsule PO 2 mg Q6HR PRN Administration Diarrhea Metoprolol Succinate 100 mg 09/07/24 09:00 09/15/24 08:42 Metoprolol Succinate Ext Rel 100 Mg Tabcr PO 100 mg QAM NAHOMI Administration Naloxone HCl 0.1 mg 09/07/24 08:19 Naloxone Hcl 0.4 Mg/Ml Vial IV PUSH Q2M PRN Opiate Reversal Ondansetron HCl 4 mg 09/07/24 09:15 09/13/24 14:52 Ondansetron Inj 4 Mg/2 Ml Vial IV PUSH 4 mg Q6H PRN Administration Nausea And Vomiting Perflutren Lipid Microsphere 0 ml 09/13/24 14:27 Perflutren Lipid Microspheres 1.5 Ml Vial Diluted To 10 Ml Total Volume IV PUSH 09/16/24 14:28 ONCE PRN adequate visualization Protocol Polysaccharide Iron Complex 150 mg 09/07/24 17:00 09/15/24 08:42 Polysaccharide Iron Complex 150 Mg Capsule PO 150 mg BIDWM NAHOMI Administration Prednisone 40 mg 09/13/24 08:00 09/15/24 08:42 Prednisone 20 Mg Tablet PO 40 mg DAILY@0800 NAHOMI Administration Rosuvastatin Calcium 5 mg 09/07/24 09:00 09/15/24 08:42 Rosuvastatin 5 Mg Tablet PO 5 mg QAM NAHOMI Administration Sodium Bicarbonate 1,300 mg 09/10/24 09:00 09/15/24 12:35 Sodium Bicarbonate Tab 650 Mg Tablet PO 1,300 mg TID NAHOMI Administration Sucralfate 1,000 mg 09/07/24 11:30 09/15/24 12:35 Sucralfate Susp 100 Mg/Ml 10 Ml Udc PO 1,000 mg ACHS NAHOMI Administration Timolol Maleate 1 drop 09/07/24 09:35 09/15/24 08:45 Timolol Maleate 0.5% Op Soln 5 Ml Bottle EACH EYE 1 drop Q12HR NAHOMI Administration Radiology Results: ITS Impressions Abdomen/Pelvis CT 09/07/24 05:37 Impression: Minimal bilateral pleural effusions. Horseshoe kidney. Chest X-Ray 09/07/24 06:11 Impression: Linear scarring or atelectasis at the lung bases, otherwise clear lungs. Labs Labs: Laboratory Results - last 24 hr 09/14/24 09/14/24 09/14/24 15:52 18:20 23:47 WBC 5.2 RBC 2.67 L Hgb 7.4 L Hct 22.8 L MCV 85.4 MCH 27.7 MCHC 32.5 RDW 17.0 H Plt Count 168 MPV 12.4 H Immature Gran % (Auto) 2.5 H Neut % (Auto) 78.6 H Lymph % (Auto) 12.2 L [place] % (Auto) 6.3 Eos % (Auto) 0.0 Baso % (Auto) 0.4 Lymph # (Auto) 0.64 L [place] # (Auto) 0.3 Eos # (Auto) 0.0 Baso # (Auto) 0.0 Abs Immat Gran (auto) 0.13 H Absolute Neuts (auto) 4.1 Absolute Nucleated RBC 0.000 Nucleated RBC % 0.0 Sodium 139 Potassium 3.6 Chloride 114 H Carbon Dioxide 16 L Anion Gap 9 BUN 31 H Creatinine 2.38 H Estim Creat Clear Calc 27 Estimated GFR 21 L Glucose 266 H POC Capillary Glucose 274 H 267 H Calcium 7.5 L Total Bilirubin 0.4 AST 41 H ALT 39 H Alkaline Phosphatase 161 H Total Protein 5.0 L Albumin 2.2 L 09/15/24 09/15/24 09/15/24 05:39 07:58 08:21 WBC 9.6 RBC 2.79 L Hgb 7.7 L Hct 23.7 L MCV 84.9 MCH 27.6 MCHC 32.5 RDW 17.2 H Plt Count 204 MPV 12.2 H Immature Gran % (Auto) Neut % (Auto) Lymph % (Auto) [place] % (Auto) Eos % (Auto) Baso % (Auto) Lymph # (Auto) [place] # (Auto) Eos # (Auto) Baso # (Auto) Abs Immat Gran (auto) Absolute Neuts (auto) Absolute Nucleated RBC Nucleated RBC % Sodium 139 Potassium 3.5 Chloride 113 H Carbon Dioxide 20 L Anion Gap 6 BUN 33 H Creatinine 2.15 H Estim Creat Clear Calc 30 Estimated GFR 23 L Glucose 180 H POC Capillary Glucose 206 H 183 H Calcium 7.8 L Total Bilirubin AST ALT Alkaline Phosphatase Total Protein Albumin 09/15/24 12:02 WBC RBC Hgb Hct MCV MCH MCHC RDW Plt Count MPV Immature Gran % (Auto) Neut % (Auto) Lymph % (Auto) [place] % (Auto) Eos % (Auto) Baso % (Auto) Lymph # (Auto) [place] # (Auto) Eos # (Auto) Baso # (Auto) Abs Immat Gran (auto) Absolute Neuts (auto) Absolute Nucleated RBC Nucleated RBC % Sodium Potassium Chloride Carbon Dioxide Anion Gap BUN Creatinine Estim Creat Clear Calc Estimated GFR Glucose POC Capillary Glucose 219 H Calcium Total Bilirubin AST ALT Alkaline Phosphatase Total Protein Albumin
[2024-09-15 16:17] LABS: Glucose Point of Care 245 mg/dl (65-105)
--- NOTE | 2024-09-15 18:46 | P.PNIM_ITS ---
Progress Note: A&P Assessment and Plan (1) BUTCH (acute kidney injury): Code(s): N17.9 - Acute kidney failure, unspecified Status: Acute Assessment and Plan: improving CKD stage 4. Creatinine 4.21 on admission, improving with fluids. Complicated by signficant hypokalemia and hypomagnesemia as noted hold nephrotoxic medications * Creatinine continues to improve * Nephrology following, appreciate recommendations: ruling out de agata glomerulonephritis * continue sodium bicarb tabs * Continue fluids for now * UA 2+ leukocyte esterase * Repleting mag and phos * Monitor on telemetry * Continue to provide IVF as pt is not taking in oral nutrition well. (2) Urinary tract infection: Code(s): N39.0 - Urinary tract infection, site not specified Status: Inactive Assessment and Plan: UA on 09/07/2024- negativefor acute UTI, repeat on 09/13/2024 with 2+ leukocyte esterase Treated with IV Rocephin X3 doses. Now on Cefdinir per sensitivities. (3) Enteritis: Code(s): K52.9 - Noninfective gastroenteritis and colitis, unspecified Status: Acute Assessment and Plan: nausea and vomiting improving. Intermittently tolerating a diet. * Carafate with meals, pepcid. Changed to PPI after stool for H pylori sent * Fluids and antiemetics * Seen by GI and no further recommendations for now, Colchicine dc'd. * Holding colchicine * C-diff negative. * Stool for H.pylori ordered and pending. (4) Atrial fibrillation: Code(s): I48.91 - Unspecified atrial fibrillation Status: Acute Assessment and Plan: rate controlled continue Eliquis and Crestor (5) Diabetes mellitus: Qualifiers: Diabetes mellitus complication detail: with diabetic retinopathy Diabetes mellitus complication status: with ophthalmic complications Diabetes mellitus skilled nursing insulin use: without skilled nursing use Diabetes mellitus macular edema: without macular edema Diabetes mellitus type: type 2 Diabetic retinopathy severity: with unspecified retinopathy severity Laterality: right Qualified Code(s): E11.319 - Type 2 diabetes mellitus with unspecified diabetic retinopathy without macular edema Code(s): E11.9 - Type 2 diabetes mellitus without complications Status: Chronic Assessment and Plan: HgbA1C is 5.3. * Continue hypoglycemic protocol * Continue SSI * Continue Diabetic diet * Continue steroids, monitor blood sugars (6) Anemia: Code(s): D64.9 - Anemia, unspecified Status: Acute Assessment and Plan: Baseline H&H 04/18.7. 06/24.9 on admission in the setting of dehydration. gative. * Occult blood of stool was obtained and is ne * H&H stable * Anemia likely due to degree of renal disease. * Follow CBC * Pancytopenia, may be viral and improving. (7) Hypertension: Code(s): I10 - Essential (primary) hypertension Status: Chronic Assessment and Plan: Home meds: Hydralazine 50mg TID, Metoprolol 100mg ER, Amlodipine 5mg * Blood pressure well controlled * Continue home antihypertensives (8) Retinal detachment: Code(s): H33.20 - Serous retinal detachment, unspecified eye Status: Chronic Assessment and Plan: patient has right eye detachment, and cataracts * Safety precautions due to low eyesight. * continue home eye drops (9) Pleural effusion: Code(s): J90 - Pleural effusion, not elsewhere classified Status: Chronic Assessment and Plan: stable from earlier this month no SOB (10) Failure to thrive: Status: Acute Assessment and Plan: No s/s of overt malnutrition present. * PT/OT evaluate and treat * Trauma Therapist consult * Calorie count ordered as pt is not eating. * Daily weights. (11) Hypokalemia: Code(s): E87.6 - Hypokalemia Status: Acute Assessment and Plan: replete as needed --Follow BMP, Mag, phos (12) Pericarditis: Code(s): I31.9 - Disease of pericardium, unspecified Status: Acute Assessment and Plan: Recent pericarditis, started on ibuprofen and colcicine 0.6mg BID and patient reports pain resolved --Holding NSAIDs for BUTCH/CKD --Holding colchine for GI symptoms --Start Prednisone 40mg in AM with a taper --Cardiology following. -- Repeat echocardiogram with no pericardial effusion. Time Spent With Patient Time with patient: 25 - 35 minutes Subjective Date/time seen: 09/15/24 13:46 Patient states she feels alright and has no distressful symptoms. States just awaiting to hear nephro opinion on long-term treatment. Interval history: HPI: Arely Ernandez is a 63 year old female with chronic kidney disease, diabetes mellitus type 2, recent pericarditis and moderate pericardial effusion for which she was started on anti-inflammatory therapy and Colchicine presented to the hospital with weakness, nausea, emesis, and diarrhea which limited her ability to eat and drink. Colchicine was stopped due to the side effects of nausea, emesis, diarrhea. She was noted to have BUTCH and does NSAIDs could not be used. She was started on low-dose prednisone. No chest pain, dizziness, lightheadedness, palpitations, presyncope, syncope, leg swelling, recent weight gain. Workup: TTE: Normal LV systolic function, no pericardial effusion Interval history: No chest pain, shortness of breath, dizziness, lightheadedness, syncope, palpitations, leg swelling, recent weight gain. No nausea, emesis, headache, abdominal pain, diarrhea. Review of Systems Review of Systems: All systems reviewed & are unremarkable except as noted in HPI and below Exam Narrative: General: Chronically ill appearing, appears older than stated age, sitting on bed. HEENT: normocephalic, atraumatic. Mucous membranes dry. Neck supple without JVD, lymphadenopathy, or bruit. Respiratory: clear to auscultation bilaterally. Cardiovascular: Regular rate and rhythm, normal S1-S2 upon auscultation. No murmurs. Abdomen: Soft, round, obese. Bowel sounds present to all four quadrants. Extremities: No cyanosis, clubbing, or edema present. Pulses are palpable 2/2. Active ROM to all four extremities. Neuro: Alert and orientated x 4. PERRLA. Cranial nerves 2-12 intact without focal deficit. Skin: Warm, dry, and intact, without rash, erythema, or lesion. Psych: pleasant, cooperative, normal speech, flatal affect, no hallucinations, no dysarthria Objective Data Vital Signs Vital Signs: Vital Signs - 24 hr 09/14/24 20:00 09/14/24 20:00 09/15/24 00:00 Temperature 97.8 F 97.8 F Pulse Rate 87 87 85 Respiratory Rate 16 18 Blood Pressure 161/84 H 160/89 H Pulse Oximetry 100 100 Oxygen Delivery 09/15/24 00:00 09/15/24 03:57 09/15/24 04:00 Temperature 98.3 F Pulse Rate 88 91 85 Respiratory Rate 16 Blood Pressure 161/83 H Pulse Oximetry 100 Oxygen Delivery 09/15/24 08:00 09/15/24 08:00 09/15/24 12:00 Temperature 99.1 F 97.6 F Pulse Rate 85 86 85 Respiratory Rate 18 19 Blood Pressure 171/88 H 173/89 H Pulse Oximetry 100 100 Oxygen Delivery 09/15/24 12:00 09/15/24 15:53 09/15/24 16:00 Temperature 98.1 F Pulse Rate 85 86 Respiratory Rate 18 Blood Pressure 168/78 H Pulse Oximetry 100 Oxygen Delivery Room Air 09/15/24 16:00 Temperature Pulse Rate 84 Respiratory Rate Blood Pressure Pulse Oximetry Oxygen Delivery Intake/Output Intake/Output: Intake & Output 09/12/24 09/13/24 09/14/24 09/15/24 23:59 23:59 23:59 23:59 Intake Total 1238 3700 2040 3920 Output Total 500 Balance 1238 3700 2040 3420 Meds/Results Medications: Active Medications Generic Name Dose Route Start Last Admin Trade Name Freq PRN Reason Stop Dose Admin Acetaminophen 650 mg 09/07/24 08:19 09/09/24 09:29 Acetaminophen 325 Mg Tablet PO 650 mg Q4H PRN Administration Mild Pain (1-3) or Fever Hydrocodone Bitart/Acetaminophen 1 tab 09/07/24 08:19 09/12/24 22:09 Hydrocodone/Acetaminophen (*Crx) 5-325 Mg Tablet PO 1 tab Q4H PRN Administration Moderate Pain (4-6) Amlodipine Besylate 5 mg 09/07/24 09:00 09/15/24 08:43 Amlodipine Besylate 5 Mg Tablet PO 5 mg QAM NAHOMI Administration Apixaban 2.5 mg 09/07/24 09:30 09/15/24 08:42 Apixaban 2.5 Mg Tablet PO 2.5 mg Q12HR NAHOMI Administration Artificial Tears 1 drop 09/07/24 09:35 09/15/24 08:45 Artificial Tears Ophth Soln 15 Ml Bottle RIGHT EYE 1 drop Q12HR NAHOMI Administration Brimonidine Tartrate 1 drop 09/07/24 09:30 09/15/24 08:45 Brimonidine Tartrate 0.2% Op Soln 5 Ml Btl EACH EYE 1 drop Q12HR NAHOMI Administration Cefdinir 300 mg 09/16/24 09:00 Cefdinir 300 Mg Capsule PO 09/19/24 21:01 Q12HR NAHOMI Dextrose 12.5 gm 09/07/24 09:15 Dextrose 50% 25 Gm/50 Ml Syringe IV PUSH PRN PRN Hypoglycemia Protocol Dorzolamide HCl 1 drop 09/07/24 09:30 09/15/24 08:45 Dorzolamide Hcl 2% Ophth Drops RIGHT EYE 1 drop Q12HR NAHOMI Administration Famotidine 20 mg 09/07/24 21:00 09/15/24 08:43 Famotidine 20 Mg/2 Ml Vial IV PUSH 20 mg Q12HR NAHOMI Administration Glucagon 1 mg 09/07/24 09:15 Glucagon For Inj 1 Mg Vial IM PRN PRN Hypoglycemia Protocol Glucose 15 gm 09/07/24 09:15 Glucose Oral Gel 15 Gm Of Glucse In 37.5 Gm Tube PO PRN PRN Hypoglycemia Protocol Hydralazine HCl 50 mg 09/07/24 13:00 09/15/24 12:35 Hydralazine Hcl 50 Mg Tablet PO 50 mg Q8HR NAHOMI Administration Dextrose 1,000 mls @ 100 mls/hr 09/07/24 09:15 Dextrose 5% 1,000 Ml IVPB PRN PRN Hypoglycemia Protocol Lactated Ringer's 1,000 mls @ 125 mls/hr 09/14/24 16:35 09/15/24 15:37 Lr - Lactated Ringers Iv IV CONT 125 mls/hr .Q8H NAHOMI Administration Insulin Aspart 2 - 5 units 09/07/24 12:00 09/15/24 16:56 Insulin Aspart (*Bkc) 100 Units/Ml SUB-Q 2 units Q6HR NAHOMI Administration Protocol Loperamide HCl 2 mg 09/08/24 08:12 09/13/24 18:38 Loperamide Hcl 2 Mg Capsule PO 2 mg Q6HR PRN Administration Diarrhea Metoprolol Succinate 100 mg 09/07/24 09:00 09/15/24 08:42 Metoprolol Succinate Ext Rel 100 Mg Tabcr PO 100 mg QAM NAHOMI Administration Naloxone HCl 0.1 mg 09/07/24 08:19 Naloxone Hcl 0.4 Mg/Ml Vial IV PUSH Q2M PRN Opiate Reversal Ondansetron HCl 4 mg 09/07/24 09:15 09/13/24 14:52 Ondansetron Inj 4 Mg/2 Ml Vial IV PUSH 4 mg Q6H PRN Administration Nausea And Vomiting Perflutren Lipid Microsphere 0 ml 09/13/24 14:27 Perflutren Lipid Microspheres 1.5 Ml Vial Diluted To 10 Ml Total Volume IV PUSH 09/16/24 14:28 ONCE PRN adequate visualization Protocol Polysaccharide Iron Complex 150 mg 09/07/24 17:00 09/15/24 16:55 Polysaccharide Iron Complex 150 Mg Capsule PO 150 mg BIDWM NAHOMI Administration Prednisone 40 mg 09/13/24 08:00 09/15/24 08:42 Prednisone 20 Mg Tablet PO 40 mg DAILY@0800 NAHOMI Administration Rosuvastatin Calcium 5 mg 09/07/24 09:00 09/15/24 08:42 Rosuvastatin 5 Mg Tablet PO 5 mg QAM NAHOMI Administration Sodium Bicarbonate 1,300 mg 09/10/24 09:00 09/15/24 16:56 Sodium Bicarbonate Tab 650 Mg Tablet PO 1,300 mg TID NAHOMI Administration Sucralfate 1,000 mg 09/07/24 11:30 09/15/24 16:56 Sucralfate Susp 100 Mg/Ml 10 Ml Udc PO 1,000 mg ACHS NAHOMI Administration Timolol Maleate 1 drop 09/07/24 09:35 09/15/24 08:45 Timolol Maleate 0.5% Op Soln 5 Ml Bottle EACH EYE 1 drop Q12HR NAHOMI Administration Radiology Results: ITS Impressions Abdomen/Pelvis CT 09/07/24 05:37 Impression: Minimal bilateral pleural effusions. Horseshoe kidney. Chest X-Ray 09/07/24 06:11 Impression: Linear scarring or atelectasis at the lung bases, otherwise clear lungs. Labs Labs: Laboratory Results - last 24 hr 09/14/24 09/15/24 09/15/24 23:47 05:39 07:58 WBC RBC Hgb Hct MCV MCH MCHC RDW Plt Count MPV Sodium Potassium Chloride Carbon Dioxide Anion Gap BUN Creatinine Estim Creat Clear Calc Estimated GFR Glucose POC Capillary Glucose 267 H 206 H 183 H Calcium 09/15/24 09/15/24 09/15/24 08:21 12:02 16:08 WBC 9.6 RBC 2.79 L Hgb 7.7 L Hct 23.7 L MCV 84.9 MCH 27.6 MCHC 32.5 RDW 17.2 H Plt Count 204 MPV 12.2 H Sodium 139 Potassium 3.5 Chloride 113 H Carbon Dioxide 20 L Anion Gap 6 BUN 33 H Creatinine 2.15 H Estim Creat Clear Calc 30 Estimated GFR 23 L Glucose 180 H POC Capillary Glucose 219 H 245 H Calcium 7.8 L Quality VTE Prophylaxis VTE prophylaxis: pharmacologic ordered Hospitalist MIPS Advance Care Plan I have confirmed that the patient's Advanced Care Plan is present, code status is documented, or surrogate decision maker is listed in patient medical record.: Yes Medication Reconciliation I have utilized all available resources to obtain, update and review the patients current medications (includes all prescriptions, OTC, herbals, cannabis, and nutritional supplements).: Yes
[2024-09-15 23:40] LABS: Glucose Point of Care 239 mg/dl (65-105)
[2024-09-16] VITALS (8 sets, daily range): BP systolic 144–184; BP diastolic 72–97; PULSE 71–86; RESP 14–18; TEMP 36.4–37.2; O2SAT 98–100
[2024-09-16] MEDS: SUCRALFATE SUSP 100 MG/ML 10 ML UDC 1000 MG PO ×4 (05:54→21:14)
[2024-09-16] MEDS: hydrALAZINE HCL 50 MG TABLET PO ×3 (05:54→21:39)
[2024-09-16] MEDS: LACTATED RINGERS 1,000 ML 125 ML IV CONT ×2 (06:04→14:17)
[2024-09-16 06:46] LABS: Basophils Percent Auto 0.1 % (0.2-1.2); Hematocrit 21.9 % (37.0-47.0); Hemoglobin 7.1 g/dL (12.0-15.0); Immature Granulocyte Absolute 0.37 K/mm3 (0.00-0.031); Immature Granulocyte Percent A 4.3 % (0-0.5); Lymphocytes Absolute Auto 0.73 K/mm3 (0.9-3.2); Lymphocytes Percent Auto 8.4 % (18.3-44.2); Mean Corpuscular HGB Conc 32.4 g/dl (32-36); Mean Corpuscular Hemoglobin 27.7 pg (26-34); Mean Corpuscular Volume 85.5 fl (80-100); Mean Platelet Volume 12.3 fl (7.4-10.4); Monocytes Absolute Auto 0.7 K/mm3 (0.1-0.6); Monocytes Percent Auto 8.6 % (2.6-8.5); Neutrophils Absolute Auto 6.8 K/mm3 (1.3-6.7); Neutrophils Percent Auto 78.6 % (45.5-73.1); Platelet Count Result 178 k/mm3 (150-375); Red Blood Count 2.56 M/mm3 (4.2-5.4); Red Cell Distribution Width 17.2 % (11.5-14.5); White Blood Count 8.6 K/mm3 (4.5-10.0)
[2024-09-16 08:23] LABS: Glucose Point of Care 219 mg/dl (65-105)
[2024-09-16] MEDS: METOPROLOL SUCCINATE EXT REL 100 MG TABCR PO (08:50)
[2024-09-16] MEDS: CEFDINIR 300 MG CAPSULE PO ×2 (08:50→21:39)
[2024-09-16] MEDS: SODIUM BICARBONATE TAB 650 MG TABLET 1300 MG PO ×3 (08:50→17:40)
[2024-09-16] MEDS: ROSUVASTATIN 5 MG TABLET PO (08:50)
[2024-09-16] MEDS: POLYSACCHARIDE IRON COMPLEX 150 MG CAPSULE PO ×2 (08:51→17:40)
[2024-09-16] MEDS: amLODIPine BESYLATE 5 MG TABLET PO (08:52)
[2024-09-16] MEDS: APIXABAN 2.5 MG TABLET PO ×2 (08:52→21:39)
[2024-09-16] MEDS: predniSONE 20 MG TABLET 40 MG PO (08:52)
[2024-09-16] MEDS: INSULIN ASPART (*BKC) 100 UNITS/ML SUB-Q ×3 (08:55→17:43)
[2024-09-16] MEDS: ARTIFICIAL TEARS OPHTH SOLN 15 ML BOTTLE 1 DROP RIGHT EYE ×2 (09:31→21:16)
[2024-09-16] MEDS: FAMOTIDINE 20 MG/2 ML VIAL IV PUSH ×2 (09:31→21:19)
[2024-09-16] MEDS: TIMOLOL MALEATE 0.5% OP SOLN 5 ML BOTTLE 1 DROP EACH EYE ×2 (09:31→21:32)
[2024-09-16] MEDS: DORZOLAMIDE HCL 2% OPHTH DROPS 1 DROP RIGHT EYE ×2 (09:32→21:18)
[2024-09-16] MEDS: BRIMONIDINE TARTRATE 0.2% OP SOLN 5 ML BTL 1 DROP EACH EYE ×2 (09:32→21:17)
[2024-09-16 11:49] LABS: Glucose Point of Care 244 mg/dl (65-105)
[2024-09-16 14:34] LABS: Anti Glomerular Basement Memb <1.0 AI
[2024-09-16 17:03] LABS: Glucose Point of Care 261 mg/dl (65-105)
--- NOTE | 2024-09-16 17:04 | P.PNIM_ITS ---
Progress Note: A&P Assessment and Plan (1) BUTCH (acute kidney injury): Code(s): N17.9 - Acute kidney failure, unspecified Status: Acute Assessment and Plan: improving CKD stage 4. Creatinine 4.21 on admission, improving with fluids. Complicated by signficant hypokalemia and hypomagnesemia as noted hold nephrotoxic medications * Creatinine continues to improve 2.5>>2.38>>2.15 * Nephrology following, appreciate recommendations: ruling out de agata glomerulonephritis * continue sodium bicarb tabs * Continue fluids for now, consider d/c in AM. * UA 2+ leukocyte esterase * Repleting mag and phos as needed. * Continue to monitor on telemetry * Continue to provide IVF as pt is not taking in oral nutrition well, IVF rate reduced 125>>100. (2) Urinary tract infection: Code(s): N39.0 - Urinary tract infection, site not specified Status: Inactive Assessment and Plan: UA on 09/07/2024- negativefor acute UTI, repeat on 09/13/2024 with 2+ leukocyte esterase Treated with IV Rocephin X3 doses. Now on Cefdinir per sensitivities for 4 days BID. (3) Enteritis: Code(s): K52.9 - Noninfective gastroenteritis and colitis, unspecified Status: Acute Assessment and Plan: nausea and vomiting much improving. Iproving in tolerating diet. * Carafate with meals, pepcid. Changed to PPI after stool for H pylori sent * Antiemetics PRN. * Seen by GI and no further recommendations for now, Colchicine dc'd. * Holding colchicine * C-diff negative. * Stool for H.pylori ordered and pending. * IVF hydration (4) Atrial fibrillation: Code(s): I48.91 - Unspecified atrial fibrillation Status: Acute Assessment and Plan: rate controlled continue Eliquis and Crestor (5) Diabetes mellitus: Qualifiers: Diabetes mellitus complication detail: with diabetic retinopathy Diabetes mellitus complication status: with ophthalmic complications Diabetes mellitus care home insulin use: without care home use Diabetes mellitus macular edema: without macular edema Diabetes mellitus type: type 2 Diabetic retinopathy severity: with unspecified retinopathy severity Laterality: right Qualified Code(s): E11.319 - Type 2 diabetes mellitus with unspecified diabetic retinopathy without macular edema Code(s): E11.9 - Type 2 diabetes mellitus without complications Status: Chronic Assessment and Plan: HgbA1C is 5.3. * Continue hypoglycemic protocol * Continue SSI * Continue Diabetic diet * Continue steroids, monitor blood sugars (6) Anemia: Code(s): D64.9 - Anemia, unspecified Status: Acute Assessment and Plan: Baseline H&H 04/18.7. 06/24.9 on admission in the setting of dehydration. * Occult blood of stool was obtained and is negative. * H&H stable but slightly trended down. * Anemia likely due to degree of renal disease + possibly hemodilution. * Follow CBC closely. * Pancytopenia, may be viral and improving. * Transfuse for Hgb < 7. (7) Hypertension: Code(s): I10 - Essential (primary) hypertension Status: Chronic Assessment and Plan: Home meds: Hydralazine 50mg TID, Metoprolol 100mg ER, Amlodipine 5mg * Blood pressure well controlled * Continue home antihypertensives (8) Retinal detachment: Code(s): H33.20 - Serous retinal detachment, unspecified eye Status: Chronic Assessment and Plan: patient has right eye detachment, and cataracts * Safety precautions due to low eyesight. * continue home eye drops (9) Pleural effusion: Code(s): J90 - Pleural effusion, not elsewhere classified Status: Chronic Assessment and Plan: stable from earlier this month no SOB (10) Failure to thrive: Status: Acute Assessment and Plan: No s/s of overt malnutrition present. * PT/OT evaluate and treat * Microbiology Manager consult * Calorie count ordered as pt is not eating. * Daily weights. (11) Hypokalemia: Code(s): E87.6 - Hypokalemia Status: Acute Assessment and Plan: replete as needed --Follow BMP, Mag, phos (12) Pericarditis: Code(s): I31.9 - Disease of pericardium, unspecified Status: Acute Assessment and Plan: Recent pericarditis, started on ibuprofen and colcicine 0.6mg BID and patient reports pain resolved --Holding NSAIDs for BUTCH/CKD --Holding colchine for GI symptoms --Start Prednisone 40mg in AM with a taper --Cardiology following. -- Repeat echocardiogram with no pericardial effusion. Time Spent With Patient Time with patient: 15 - 25 minutes Subjective Date/time seen: 09/16/24 17:04 Patient states she feels alright and has no distressful symptoms. Interval history: HPI: Arely Ernandez is a 63 year old female with chronic kidney disease, diabetes mellitus type 2, recent pericarditis and moderate pericardial effusion for which she was started on anti-inflammatory therapy and Colchicine presented to the hospital with weakness, nausea, emesis, and diarrhea which limited her ability to eat and drink. Colchicine was stopped due to the side effects of nausea, emesis, diarrhea. She was noted to have BUTCH and does NSAIDs could not be used. She was started on low-dose prednisone. No chest pain, dizziness, lightheadedness, palpitations, presyncope, syncope, leg swelling, recent weight gain. Workup: TTE: Normal LV systolic function, no pericardial effusion Interval history: No chest pain, shortness of breath, dizziness, l ightheadedness, syncope, palpitations, leg swelling, recent weight gain. No nausea, emesis, headache, abdominal pain, diarrhea. Review of Systems 2 Review of Systems: All systems reviewed & are unremarkable except as noted in HPI and below Exam Narrative: General: Fair appearing, no acute distress. Appears older than stated age. HEENT: normocephalic, atraumatic. Mucous membranes dry. Neck supple without JVD, lymphadenopathy, or bruit. Respiratory: clear to auscultation bilaterally. Cardiovascular: Regular rate and rhythm, normal S1-S2 upon auscultation. Abdomen: Soft, round, obese. Bowel sounds present to all four quadrants. Extremities: No cyanosis, clubbing, or edema present. Pulses are palpable 2/2. Active ROM to all four extremities. Neuro: Alert and orientated x 4. PERRLA. Cranial nerves 2-12 intact without focal deficit. Skin: Warm, dry, and intact, without rash, erythema, or lesion. Psych: pleasant, cooperative, flatal affect. Objective Data Vital Signs Vital Signs: Vital Signs - 24 hr 09/15/24 20:00 09/15/24 20:00 09/16/24 00:00 Temperature 98.3 F Pulse Rate 87 78 Respiratory Rate 18 16 Blood Pressure 144/72 H Pulse Oximetry 98 Oxygen Delivery 09/16/24 00:00 09/16/24 04:00 09/16/24 04:00 Temperature 98.9 F Pulse Rate 79 83 86 Respiratory Rate 18 Blood Pressure 146/79 H Pulse Oximetry 100 Oxygen Delivery 09/16/24 08:00 09/16/24 08:50 09/16/24 08:50 Temperature 97.5 F L Pulse Rate 85 85 Respiratory Rate 14 Blood Pressure 183/86 H Pulse Oximetry 100 100 Oxygen Delivery Room Air 09/16/24 08:50 09/16/24 12:00 09/16/24 16:00 Temperature 97.6 F 97.6 F Pulse Rate 85 79 77 Respiratory Rate 14 14 Blood Pressure 151/80 H 184/97 H Pulse Oximetry 98 99 Oxygen Delivery Intake/Output Intake/Output: Intake & Output 09/13/24 09/14/24 09/15/24 09/16/24 23:59 23:59 23:59 23:59 Intake Total 3700 2040 4920 2143.5 Output Total 500 500 Balance 3700 2040 4420 1643.5 Meds/Results Medications: Active Medications Generic Name Dose Route Start Last Admin Trade Name Freq PRN Reason Stop Dose Admin Acetaminophen 650 mg 09/07/24 08:19 09/09/24 09:29 Acetaminophen 325 Mg Tablet PO 650 mg Q4H PRN Administration Mild Pain (1-3) or Fever Hydrocodone Bitart/Acetaminophen 1 tab 09/07/24 08:19 09/12/24 22:09 Hydrocodone/Acetaminophen (*Crx) 5-325 Mg Tablet PO 1 tab Q4H PRN Administration Moderate Pain (4-6) Amlodipine Besylate 5 mg 09/07/24 09:00 09/16/24 08:52 Amlodipine Besylate 5 Mg Tablet PO 5 mg QAM NAHOMI Administration Apixaban 2.5 mg 09/07/24 09:30 09/16/24 08:52 Apixaban 2.5 Mg Tablet PO 2.5 mg Q12HR NAHOMI Administration Artificial Tears 1 drop 09/07/24 09:35 09/16/24 09:31 Artificial Tears Ophth Soln 15 Ml Bottle RIGHT EYE 1 drop Q12HR NAHOMI Administration Brimonidine Tartrate 1 drop 09/07/24 09:30 09/16/24 09:32 Brimonidine Tartrate 0.2% Op Soln 5 Ml Btl EACH EYE 1 drop Q12HR NAHOMI Administration Cefdinir 300 mg 09/16/24 09:00 09/16/24 08:50 Cefdinir 300 Mg Capsule PO 09/19/24 21:01 300 mg Q12HR NAHOMI Administration Dextrose 12.5 gm 09/07/24 09:15 Dextrose 50% 25 Gm/50 Ml Syringe IV PUSH PRN PRN Hypoglycemia Protocol Dorzolamide HCl 1 drop 09/07/24 09:30 09/16/24 09:32 Dorzolamide Hcl 2% Ophth Drops RIGHT EYE 1 drop Q12HR NAHOMI Administration Famotidine 20 mg 09/07/24 21:00 09/16/24 09:31 Famotidine 20 Mg/2 Ml Vial IV PUSH 20 mg Q12HR NAHOMI Administration Glucagon 1 mg 09/07/24 09:15 Glucagon For Inj 1 Mg Vial IM PRN PRN Hypoglycemia Protocol Glucose 15 gm 09/07/24 09:15 Glucose Oral Gel 15 Gm Of Glucse In 37.5 Gm Tube PO PRN PRN Hypoglycemia Protocol Hydralazine HCl 50 mg 09/07/24 13:00 09/16/24 14:17 Hydralazine Hcl 50 Mg Tablet PO 50 mg Q8HR NAHOMI Administration Dextrose 1,000 mls @ 100 mls/hr 09/07/24 09:15 Dextrose 5% 1,000 Ml IVPB PRN PRN Hypoglycemia Protocol Lactated Ringer's 1,000 mls @ 100 mls/hr 09/14/24 16:35 09/16/24 14:17 Lr - Lactated Ringers Iv IV CONT 125 mls/hr .Q10H NAHOMI Administration Insulin Aspart 2 - 5 units 09/16/24 08:00 09/16/24 11:57 Insulin Aspart (*Bkc) 100 Units/Ml SUB-Q 2 units AC NAHOMI Administration Protocol Loperamide HCl 2 mg 09/08/24 08:12 09/13/24 18:38 Loperamide Hcl 2 Mg Capsule PO 2 mg Q6HR PRN Administration Diarrhea Metoprolol Succinate 100 mg 09/07/24 09:00 09/16/24 08:50 Metoprolol Succinate Ext Rel 100 Mg Tabcr PO 100 mg QAM NAHOMI Administration Miscellaneous Information 1 each 09/16/24 00:01 Naches Needs To Be Renewed Or It Will Automatically Discontinue. XX 10/16/24 00:00 CLARIFY NAHOMI Naloxone HCl 0.1 mg 09/07/24 08:19 Naloxone Hcl 0.4 Mg/Ml Vial IV PUSH Q2M PRN Opiate Reversal Ondansetron HCl 4 mg 09/07/24 09:15 09/13/24 14:52 Ondansetron Inj 4 Mg/2 Ml Vial IV PUSH 4 mg Q6H PRN Administration Nausea And Vomiting Polysaccharide Iron Complex 150 mg 09/07/24 17:00 09/16/24 08:51 Polysaccharide Iron Complex 150 Mg Capsule PO 150 mg BIDWM NAHOMI Administration Prednisone 40 mg 09/13/24 08:00 09/16/24 08:52 Prednisone 20 Mg Tablet PO 40 mg DAILY@0800 NAHOMI Administration Rosuvastatin Calcium 5 mg 09/07/24 09:00 09/16/24 08:50 Rosuvastatin 5 Mg Tablet PO 5 mg QAM NAHOMI Administration Sodium Bicarbonate 1,300 mg 09/10/24 09:00 09/16/24 14:17 Sodium Bicarbonate Tab 650 Mg Tablet PO 1,300 mg TID NAHOMI Administration Sucralfate 1,000 mg 09/07/24 11:30 09/16/24 11:57 Sucralfate Susp 100 Mg/Ml 10 Ml Udc PO 1,000 mg ACHS NAHOMI Administration Timolol Maleate 1 drop 09/07/24 09:35 09/16/24 09:31 Timolol Maleate 0.5% Op Soln 5 Ml Bottle EACH EYE 1 drop Q12HR NAHOMI Administration Radiology Results: ITS Impressions Abdomen/Pelvis CT 09/07/24 05:37 Impression: Minimal bilateral pleural effusions. Horseshoe kidney. Chest X-Ray 09/07/24 06:11 Impression: Linear scarring or atelectasis at the lung bases, otherwise clear lungs. Labs Labs: Laboratory Results - last 24 hr 09/10/24 09/15/24 09/16/24 06:17 23:35 06:04 WBC 8.6 RBC 2.56 L Hgb 7.1 L Hct 21.9 L MCV 85.5 MCH 27.7 MCHC 32.4 RDW 17.2 H Plt Count 178 MPV 12.3 H Immature Gran % (Auto) 4.3 H Neut % (Auto) 78.6 H Lymph % (Auto) 8.4 L [place] % (Auto) 8.6 H Eos % (Auto) 0.0 Baso % (Auto) 0.1 L Lymph # (Auto) 0.73 L [place] # (Auto) 0.7 H Eos # (Auto) 0.0 Baso # (Auto) 0.0 Abs Immat Gran (auto) 0.37 H Absolute Neuts (auto) 6.8 H Absolute Nucleated RBC 0.000 Nucleated RBC % 0.0 POC Capillary Glucose 239 H Glomerular Base Memb Ab <1.0 09/16/24 09/16/24 09/16/24 08:04 11:42 16:33 WBC RBC Hgb Hct MCV MCH MCHC RDW Plt Count MPV Immature Gran % (Auto) Neut % (Auto) Lymph % (Auto) [place] % (Auto) Eos % (Auto) Baso % (Auto) Lymph # (Auto) [place] # (Auto) Eos # (Auto) Baso # (Auto) Abs Immat Gran (auto) Absolute Neuts (auto) Absolute Nucleated RBC Nucleated RBC % POC Capillary Glucose 219 H 244 H 261 H Glomerular Base Memb Ab Quality VTE Prophylaxis VTE prophylaxis: pharmacologic ordered Hospitalist MIPS Advance Care Plan I have confirmed that the patient's Advanced Care Plan is present, code status is documented, or surrogate decision maker is listed in patient medical record.: Yes Medication Reconciliation I have utilized all available resources to obtain, update and review the patients current medications (includes all prescriptions, OTC, herbals, cannabis, and nutritional supplements).: Yes
[2024-09-16] MEDS: LACTATED RINGERS 1,000 ML 100 ML IV CONT (17:40)
[2024-09-16 21:05] LABS: Glucose Point of Care 279 mg/dl (65-105)
[2024-09-17] VITALS (9 sets, daily range): BP systolic 139–175; BP diastolic 71–92; PULSE 67–89; RESP 14–20; TEMP 36.1–37; O2SAT 99–100
[2024-09-17] MEDS: SUCRALFATE SUSP 100 MG/ML 10 ML UDC 1000 MG PO ×4 (06:08→21:06)
[2024-09-17] MEDS: hydrALAZINE HCL 50 MG TABLET PO ×3 (06:08→21:07)
[2024-09-17] MEDS: LACTATED RINGERS 1,000 ML 100 ML IV CONT ×2 (06:30→17:28)
[2024-09-17 07:46] LABS: Hematocrit 22.4 % (37.0-47.0); Hemoglobin 7.2 g/dL (12.0-15.0); Mean Corpuscular HGB Conc 32.1 g/dl (32-36); Mean Corpuscular Hemoglobin 27.8 pg (26-34); Mean Corpuscular Volume 86.5 fl (80-100); Mean Platelet Volume 12.2 fl (7.4-10.4); Platelet Count Result 152 k/mm3 (150-375); Red Blood Count 2.59 M/mm3 (4.2-5.4); Red Cell Distribution Width 17.2 % (11.5-14.5)
[2024-09-17 08:03] LABS: Glucose Point of Care 234 mg/dl (65-105)
[2024-09-17] MEDS: APIXABAN 2.5 MG TABLET PO ×2 (09:11→21:07)
[2024-09-17] MEDS: predniSONE 20 MG TABLET 40 MG PO (09:11)
[2024-09-17] MEDS: FAMOTIDINE 20 MG/2 ML VIAL IV PUSH ×2 (09:11→21:06)
[2024-09-17] MEDS: POLYSACCHARIDE IRON COMPLEX 150 MG CAPSULE PO ×2 (09:11→16:59)
[2024-09-17] MEDS: METOPROLOL SUCCINATE EXT REL 100 MG TABCR PO (09:12)
[2024-09-17] MEDS: amLODIPine BESYLATE 5 MG TABLET PO (09:12)
[2024-09-17] MEDS: SODIUM BICARBONATE TAB 650 MG TABLET 1300 MG PO ×3 (09:12→16:58)
[2024-09-17] MEDS: CEFDINIR 300 MG CAPSULE PO ×2 (09:12→21:07)
[2024-09-17] MEDS: ROSUVASTATIN 5 MG TABLET PO (09:12)
[2024-09-17] MEDS: INSULIN ASPART (*BKC) 100 UNITS/ML SUB-Q ×3 (09:13→16:58)
[2024-09-17] MEDS: ARTIFICIAL TEARS OPHTH SOLN 15 ML BOTTLE 1 DROP RIGHT EYE ×2 (09:14→21:08)
[2024-09-17] MEDS: DORZOLAMIDE HCL 2% OPHTH DROPS 1 DROP RIGHT EYE ×2 (09:14→21:08)
[2024-09-17] MEDS: BRIMONIDINE TARTRATE 0.2% OP SOLN 5 ML BTL 1 DROP EACH EYE ×2 (09:14→21:08)
[2024-09-17] MEDS: TIMOLOL MALEATE 0.5% OP SOLN 5 ML BOTTLE 1 DROP EACH EYE ×2 (09:15→21:08)
[2024-09-17] MEDS: ACETAMINOPHEN 325 MG TABLET 650 MG PO ×3 (10:29→23:45)
[2024-09-17 11:06] LABS: Blood Urea Nitrogen 41 mg/dL (7-17)
--- NOTE | 2024-09-17 11:36 | PCOTNOTE ---
Per RN, Patient going down for x-rays, check back at a later time.
[2024-09-17 11:38] LABS: Glucose Point of Care 224 mg/dl (65-105)
--- NOTE | 2024-09-17 13:20 | PCNFU ---
Nutrition Follow-Up Complete: suboptimal po intake related to reduced appetite as evidenced by pt report and charted intake PO intake 50% or greater - Progressing. Intakes 30-100% Goal: Pt current nutrition is Diabetic consistent carb diet with Ensure Compact BID for additional 220 kcal and 9 g protein each. Nutrition recommendation: No new nutrition recommendations. Continue with current nutrition care plan and orders. Last recorded weight is 102.1 kg. Bowel Motility: Last +BM 09/13/24 Labs Reviewed: Hgb 7.2, Hct 22.4, BUN 41, Glu 224 Meds Noted: LR, Novolog, Zofran Skin: No pressure Additional Notes: Appetite has improved, 85-100 last 24 hours. Continue current nutrition care plan and orders. Agree with orders Monitor intake, wt, labs. Follow up in 5 days.
--- NOTE | 2024-09-17 13:35 | PCOTNOTE ---
Per RN, no therapy at this time. Patient has Ortho consult placed.
--- NOTE | 2024-09-17 15:09 | PM.CNOR ---
Assessment and Plan Assessment and plan (1) Fibula fracture: Qualifiers: Encounter type: initial encounter Fibula location: proximal Fracture morphology: unspecified fracture morphology Fracture type: closed Laterality: left Qualified Code(s): S82.832A - Other fracture of upper and lower end of left fibula, initial encounter for closed fracture <ANDREW Grover - Last Filed: 09/17/24 15:23> Code(s): S82.409A - Unspecified fracture of shaft of unspecified fibula, initial encounter for closed fracture <ANDREW Grover - Last Filed: 09/17/24 15:23> Status: Acute <ANDREW Grover - Last Filed: 09/17/24 15:23> Assessment and Plan: Radiographs of the left knee reveal a minimally displaced extra articular fracture of the proximal left fibular diaphysis. On exam, patient endorses significant left ankle pain. Inability to flex and extend the left ankle without severe pain. Patient has significant dependent edema bilateral lower extremities. Mild ecchymosis left lateral knee. The fracture type and injury as well as radiographs discussed with the patient. Will obtain tib-fib and ankle radiographs of the left lower extremity for further evaluation given associated ankle pain. Recommend nonweightbearing of the left lower extremity in the interim. Pain control. Ice. Will determine further plan of care pending radiographic results. <ANDREW Grover - Last Filed: 09/17/24 15:23> Assessment and Plan: Reviewed history, exam, radiographs and current labs with attending MD and covering surgeon, Dr. Shelley, who agrees with current plan as indicated above. No further recommendations from Dr. Shelley at this time. <ANDREW Grover - Last Filed: 09/17/24 15:23> History of Present Illness HPI Consult date: 09/17/24 <ANDREW Grover - Last Filed: 09/17/24 15:23> 09/20/24 <Andrae Shelley MD - Last Filed: 09/20/24 16:32> Chief complaint: BUTCH, Failure to thrive <ANDREW Grover - Last Filed: 09/17/24 15:23> Narrative: 63-year-old female admitted initially on September 07 with nausea vomiting and diarrhea. She has been treated in the interim for multiple medical issues. The patient was working with physical therapy today at 10:00 AM when she had a fall on to both knees. Per the nurse, she had felt a pop when she fell. She required transfer back to the bed with a Jong Lift. Radiographs of bilateral knees obtained by the hospitalist service. Right knee and right elbow XR negative for acute injury. Left knee XR revealed a minimally displaced extra articular fracture of the proximal left fibular diaphysis. No further imaging obtained. Orthopedic Consult requested. <ANDREW Grover - Last Filed: 09/17/24 15:23> Review of Systems Review of Systems: All systems reviewed & are unremarkable except as noted in HPI and below <ANDREW Grover - Last Filed: 09/17/24 15:23> PMFSH Past Medical History Medical History: Medical History (Updated 09/17/24 @ 16:57 by Rose Solo NP) Fibula fracture Diabetes mellitus Chronic renal disease Anxiety <ANDREW Grover - Last Filed: 09/17/24 15:23> Surgical History Surgical History: Surgical History History of appendectomy <ANDREW Grover - Last Filed: 09/17/24 15:23> Family History Family History: Family History Father Hypertension Diabetes mellitus Lymphoma Grandparent Diabetes mellitus Grandparent Diabetes mellitus Mother Pacemaker <ANDREW Grover - Last Filed: 09/17/24 15:23> Social History Social History: Social History Smoking status: Former smoker Tobacco type: cigarettes Alcohol intake: former Substance use: former Substance use type: does not use Do You Feel Safe in your Home?: Yes Lack of Transportation: No Lack of Food: Never True Current Housing: I Have Housing Concerned About Future Housing: No Difficulty Paying Gas/Electric Bills: No Difficulty Paying for Meds: No Currently Unemployed: No Education: High School Diploma/GED Difficulty w/ Childcare or Family Care: No Spiritual care concerns: No <ANDREW Grover - Last Filed: 09/17/24 15:23> Meds Home Medications and Allergies Home medications: Home Medications ?Medication ?Instructions ?Recorded ?Confirmed ?Type amlodipine 5 mg tablet 5 mg PO QAM 08/22/24 09/07/24 History brimonidine 0.2 % eye drops 1 drp EACH EYE BID 08/22/24 09/07/24 History cholecalciferol (vitamin D3) 50 50 mcg PO QAM 08/22/24 09/07/24 History mcg (2,000 unit) tablet (D3 DOTS) dorzolamide 2 % eye drops 1 drp RIGHT EYE BID 08/22/24 09/07/24 History ferrous sulfate 325 mg (65 mg 325 mg PO QAM 08/22/24 09/07/24 History iron) tablet (FeroSul) hydralazine 50 mg tablet 50 mg PO TID 08/22/24 09/07/24 History metoprolol succinate 100 mg 100 mg PO QAM 08/22/24 09/07/24 History tablet,extended release 24 hr polyvinyl alcohol-povidone 0.5 1 drp RIGHT EYE BID 08/22/24 09/07/24 History %-0.6 % eye drops (Artificial Tears (polyvinyl alcohol/povidone)) rosuvastatin 5 mg tablet 5 mg PO QAM 08/22/24 09/07/24 History sodium bicarbonate 650 mg tablet 650 mg PO TID 08/22/24 09/07/24 History timolol maleate 0.5 % eye drops 1 drp EACH EYE BID 08/22/24 09/07/24 History apixaban 2.5 mg tablet (Eliquis) 2.5 mg PO BID #60 tabs 08/26/24 09/07/24 Rx blood-glucose meter,continuous #1 ea 08/26/24 09/10/24 Rx (Dexcom G6 Yarn Preparation Supervisor) blood-glucose sensor (Dexcom G6 #3 ea 08/26/24 09/10/24 Rx Sensor device) blood-glucose transmitter (Dexcom #1 ea 08/26/24 09/10/24 Rx G6 Transmitter device) colchicine 0.6 mg tablet (Colcrys) 0.6 mg PO Q12HR #120 tabs 08/26/24 09/07/24 Rx ibuprofen 600 mg tablet 600 mg PO TID #30 tabs 08/26/24 09/07/24 Rx <ANDREW Grover - Last Filed: 09/17/24 15:23> Allergies/Adverse reactions: Allergies Allergy/AdvReac Type Severity Reaction Status Date / Time Penicillins Allergy Unknown Unknown Verified 09/07/24 06:30 coconut Allergy Hives Verified 09/07/24 06:30 <ANDREW Grover - Last Filed: 09/17/24 15:23> Vital Signs Vital Signs - 24 hr 09/16/24 16:00 09/16/24 16:00 09/16/24 20:00 Temperature 36.4 C 36.4 C Pulse Rate 77 71 77 Respiratory Rate 14 14 Blood Pressure 184/97 H 184/97 H Pulse Oximetry 99 99 Oxygen Delivery 09/16/24 20:00 09/16/24 21:37 09/17/24 00:00 Temperature 36.4 C Pulse Rate 82 74 77 Respiratory Rate 14 Blood Pressure 175/85 H 175/92 H Pulse Oximetry 99 Oxygen Delivery 09/17/24 00:00 09/17/24 00:39 09/17/24 04:00 Temperature 36.1 C L Pulse Rate 67 82 Respiratory Rate 16 Blood Pressure 160/88 H 163/88 H Pulse Oximetry 100 Oxygen Delivery 09/17/24 04:00 09/17/24 08:00 09/17/24 09:12 Temperature 36.6 C Pulse Rate 76 88 80 Respiratory Rate 20 Blood Pressure 158/89 H Pulse Oximetry 100 Oxygen Delivery 09/17/24 09:13 09/17/24 10:20 09/17/24 12:00 Temperature 36.4 C 36.4 C L Pulse Rate 79 71 Respiratory Rate 18 Blood Pressure 160/88 H 139/71 Pulse Oximetry 100 100 Oxygen Delivery Room Air <ANDREW Grover - Last Filed: 09/17/24 15:23> Exam Const: General: cooperative and ill appearing chronically <ANDREW Grover - Last Filed: 09/17/24 15:23> Orientation/consciousness: patient oriented x3 <Omaira Wilson [facility] Last Filed: 09/17/24 15:23> HENMT: Head: normal to inspection <Omaira Wilson [facility] Last Filed: 09/17/24 15:23> Extrem: Right upper extremity: normal to inspection, full ROM and elbow/forearm normal to inspection, tenderness and normal ROM <Omaira Wilson [facility] - Last Filed: 09/17/24 15:23> Left upper extremity: normal to inspection and full ROM <Omaira Wilson [facility] - Last Filed: 09/17/24 15:23> Right lower extremity: normal to inspection, full ROM, knee (pitting edema ) Details: normal to inspection and normal ROM; no tenderness, lower leg (pitting edema ), ankle (pitting edema ) Details: no tenderness and foot (pitting edema ) Details: no tenderness <Omaira Wilson [facility] - Last Filed: 09/17/24 15:23> Left lower extremity: knee Details: tenderness Location: of the proximal fibula and abnormal ROM Details: pain with active ROM, lower leg (edema ) Details: tenderness Location: of the proximal fibula, of the midshaft tibia and of the distal tibia, ankle (edema ) Details: abnormal to inspection, tenderness Location: of the lateral malleolus and of the medial malleolus and abnormal ROM Details: pain with active ROM Details: with plantar flexion and with dorsiflexion; no warmth, no abrasions and no lacerations and foot (edema ) Details: tenderness, toes with normal ROM and vascular exam Details: dorsalis pedis pulse present <Omaira Wilson [facility] - Last Filed: 09/17/24 15:23> Results Labs Result Diagrams: 09/17/24 07:15 09/20/24 06:35 <Omaira Wilson [facility] - Last Filed: 09/17/24 15:23> Labs: Abnormal lab results 09/16/24 09/16/24 09/17/24 Range/Units 16:33 20:59 07:13 RBC (4.2-5.4) M/mm3 Hgb (12.0-15.0) g/dL Hct (37.0-47.0) % RDW (11.5-14.5) % MPV (7.4-10.4) fl BUN 41 H (7-17) mg/dL POC Capillary Glucose 261 H 279 H (65-105) mg/dl 09/17/24 09/17/24 09/17/24 Range/Units 07:15 07:37 11:31 RBC 2.59 L (4.2-5.4) M/mm3 Hgb 7.2 L (12.0-15.0) g/dL Hct 22.4 L (37.0-47.0) % RDW 17.2 H (11.5-14.5) % MPV 12.2 H (7.4-10.4) fl BUN (7-17) mg/dL POC Capillary Glucose 234 H 224 H (65-105) mg/dl H & H 09/07/24 09/08/24 09/08/24 Range/Units 01:32 06:31 06:31 Hgb 10.0 L 8.2 L Cancelled (12.0-15.0) g/dL Hct 31.9 L 26.7 L (37.0-47.0) % 09/08/24 09/09/24 09/10/24 Range/Units 06:31 06:25 06:17 Hgb 7.8 L 7.8 L (12.0-15.0) g/dL Hct Cancelled 25.1 L 24.6 L (37.0-47.0) % 09/11/24 09/12/24 09/13/24 Range/Units 07:16 06:24 06:50 Hgb 8.0 L 7.5 L 7.6 L (12.0-15.0) g/dL Hct 25.0 L 24.2 L 24.7 L (37.0-47.0) % 09/14/24 09/15/24 09/16/24 Range/Units 15:52 08:21 06:04 Hgb 7.4 L 7.7 L 7.1 L (12.0-15.0) g/dL Hct 22.8 L 23.7 L 21.9 L (37.0-47.0) % 09/17/24 Range/Units 07:15 Hgb 7.2 L (12.0-15.0) g/dL Hct 22.4 L (37.0-47.0) % Coagulation 09/07/24 Range/Units 01:32 INR 1.3 All other labs normal. <ANDREW Grover - Last Filed: 09/17/24 15:23>
--- NOTE | 2024-09-17 16:43 | P.PNIM_ITS ---
Progress Note: A&P Assessment and Plan (1) Fall from ground level: Code(s): W18.30XA - Fall on same level, unspecified, initial encounter Status: Acute Assessment and Plan: - Likely mechanical due to generalized muscle weakness. -continue PT/OT treatment with for precautions. -will likely need SNF/rehab placement. - Supportive care for now. (2) Fracture of left proximal fibula: Code(s): S82.832A - Other fracture of upper and lower end of left fibula, initial encounter for closed fracture Status: Acute Assessment and Plan: - Related to # 1. - XR Tib/Fib 2VW: 1. Fractures of proximal and distal fibula. - Ortho consulted. -bedrest for now. -pain meds p.r.n.. -supportive care. (3) Closed left ankle fracture: Code(s): S82.892A - Other fracture of left lower leg, initial encounter for closed fracture Status: Acute Assessment and Plan: - Related to # 1. - XR L. Foot 2VW: 1. Fractures of proximal and distal fibula. 2. Comminuted fracture of distal tibia. -maintain bedrest for now. -Ortho consulted. -supportive care with pain meds p.r.n.. -maintain fall precautions. (4) BUTCH (acute kidney injury): Code(s): N17.9 - Acute kidney failure, unspecified Status: Acute Assessment and Plan: improving CKD stage 4. Creatinine 4.21 on admission, improving with fluids. Complicated by signficant hypokalemia and hypomagnesemia as noted hold nephrotoxic medications * Creatinine continues to improve 2.5>>2.38>>2.15 * Nephrology following, appreciate recommendations: ruling out de agata glomerulonephritis * continue sodium bicarb tabs * Continue fluids for now, consider d/c in AM if Cr improves. * UA 2+ leukocyte esterase * Repleting mag and phos as needed. * Continue to monitor on telemetry * Continue to provide IVF as pt is not taking in oral nutrition well, IVF rate reduced 125>>100>>75. (5) Urinary tract infection: Code(s): N39.0 - Urinary tract infection, site not specified Status: Inactive Assessment and Plan: UA on 09/07/2024- negativefor acute UTI, repeat on 09/13/2024 with 2+ leukocyte esterase Treated with IV Rocephin X3 doses. Now on Cefdinir per sensitivities for 4 days BID. (6) Enteritis: Code(s): K52.9 - Noninfective gastroenteritis and colitis, unspecified Status: Acute Assessment and Plan: nausea and vomiting much improving. Diarrhea improving and tolerating diet fairly. * Carafate with meals, pepcid. Changed to PPI after stool for H pylori sent * Antiemetics PRN. * Seen by GI and no further recommendations for now, Colchicine dc'd. * Holding colchicine * C-diff negative. * Stool for H.pylori ordered and pending. * IVF hydration (7) Atrial fibrillation: Code(s): I48.91 - Unspecified atrial fibrillation Status: Acute Assessment and Plan: rate controlled continue Eliquis and Crestor (8) Diabetes mellitus: Qualifiers: Diabetes mellitus complication detail: with diabetic retinopathy Diabetes mellitus complication status: with ophthalmic complications Diabetes mellitus assistant terminal manager insulin use: without assistant terminal manager use Diabetes mellitus macular edema: without macular edema Diabetes mellitus type: type 2 Diabetic retinopathy severity: with unspecified retinopathy severity Laterality: right Qualified Code(s): E11.319 - Type 2 diabetes mellitus with unspecified diabetic retinopathy without macular edema Code(s): E11.9 - Type 2 diabetes mellitus without complications Status: Chronic Assessment and Plan: HgbA1C is 5.3. * Continue hypoglycemic protocol * Continue SSI * Low-dose lantus added with mod elevated glucose levels. * Continue Diabetic diet * Continue to adjust meds as needed. (9) Anemia: Code(s): D64.9 - Anemia, unspecified Status: Acute Assessment and Plan: Baseline H&H 04/18.7. 06/24.9 on admission in the setting of dehydration. * Occult blood of stool was obtained and is negative. * H&H stable but slightly trended down. * Anemia likely due to degree of renal disease + possibly hemodilution. * Follow CBC closely. * Pancytopenia, may be viral and improving. * Transfuse for Hgb < 7. (10) Hypertension: Code(s): I10 - Essential (primary) hypertension Status: Chronic Assessment and Plan: Home meds: Hydralazine 50mg TID, Metoprolol 100mg ER, Amlodipine 5mg * Blood pressure well controlled * Continue home antihypertensives (11) Retinal detachment: Code(s): H33.20 - Serous retinal detachment, unspecified eye Status: Chronic Assessment and Plan: patient has right eye detachment, and cataracts * Safety precautions due to low eyesight. * continue home eye drops (12) Pleural effusion: Code(s): J90 - Pleural effusion, not elsewhere classified Status: Chronic Assessment and Plan: stable from earlier this month no SOB (13) Failure to thrive: Status: Acute Assessment and Plan: No s/s of overt malnutrition present. * PT/OT evaluate and treat * [employer] Worker consult * Calorie count ordered as pt is not eating. * Daily weights. (14) Hypokalemia: Code(s): E87.6 - Hypokalemia Status: Acute Assessment and Plan: replete as needed --Follow BMP, Mag, phos (15) Pericarditis: Code(s): I31.9 - Disease of pericardium, unspecified Status: Acute Assessment and Plan: Recent pericarditis, started on ibuprofen and colcicine 0.6mg BID and patient reports pain resolved --Holding NSAIDs for BUTCH/CKD --Holding colchine for GI symptoms --Started on Prednisone 40mg with a taper --Seen by Cardiology. -- Repeat echocardiogram with no pericardial effusion. Plan Ortho consulted regarding L. Ankle and L. Prox fib fractures. Further mgt per ortho, bedrest for now. Time Spent With Patient Time with patient: 25 - 35 minutes Subjective Date/time seen: 09/17/24 12:43 Patient calm on bedrest and states she feels okay but still has some pain to both knees on right elbow region. Patient reporting was working with PT earlier today and as she attempted to transfer from bed to chair her knees give out and she fell to her right side, but she denies hitting head or passing out prior or after the incident. Interval history: Patient calm on bedrest with generalized muscle weakness but looks to be in no acute distress. Review of Systems Review of Systems: 12 systems were reviewed and are negative except for as per HPI. All systems reviewed & are unremarkable except as noted in HPI and below Exam Narrative: General: Fair appearing, no acute distress, generalized muscle weakness. HEENT: normocephalic, atraumatic. PERRL. Mucous membranes dry. Neck supple without JVD, lymphadenopathy, or bruit. Respiratory: Faint expiratory wheezes. Cardiovascular: Regular rate and rhythm, normal S1-S2 upon auscultation. Abdomen: Soft, round, obese. Bowel sounds present to all four quadrants. Extremities: No cyanosis, clubbing, 1+ edema present ac. LE. 2+ edema ac. Feet. Neuro: Alert and orientated x 4. PERRLA. Cranial nerves 2-12 intact without focal deficit. Skin: Warm, dry, and intact, without rash, erythema, or lesion. Psych: pleasant, cooperative, flat affect. Objective Data Vital Signs Vital Signs: Vital Signs - 24 hr 09/16/24 20:00 09/16/24 20:00 09/16/24 21:37 Temperature 97.6 F Pulse Rate 77 82 74 Respiratory Rate 14 Blood Pressure 184/97 H 175/85 H Pulse Oximetry 99 Oxygen Delivery 09/17/24 00:00 09/17/24 00:00 09/17/24 00:39 Temperature 97.6 F Pulse Rate 77 67 Respiratory Rate 14 Blood Pressure 175/92 H 160/88 H Pulse Oximetry 99 Oxygen Delivery 09/17/24 04:00 09/17/24 04:00 09/17/24 08:00 Temperature 97 F L 97.9 F Pulse Rate 82 76 88 Respiratory Rate 16 20 Blood Pressure 163/88 H 158/89 H Pulse Oximetry 100 100 Oxygen Delivery 09/17/24 09:12 09/17/24 09:13 09/17/24 10:20 Temperature 97.6 F Pulse Rate 80 79 Respiratory Rate Blood Pressure 160/88 H Pulse Oximetry 100 Oxygen Delivery Room Air 09/17/24 12:00 Temperature 97.5 F L Pulse Rate 71 Respiratory Rate 18 Blood Pressure 139/71 Pulse Oximetry 100 Oxygen Delivery Intake/Output Intake/Output: Intake & Output 09/14/24 09/15/24 09/16/24 09/17/24 23:59 23:59 23:59 23:59 Intake Total 2040 4920 2806.4 1597 Output Total 500 500 Balance 2040 4420 2306.4 1597 Meds/Results Medications: Active Medications Generic Name Dose Route Start Last Admin Trade Name Freq PRN Reason Stop Dose Admin Acetaminophen 650 mg 09/07/24 08:19 09/17/24 10:29 Acetaminophen 325 Mg Tablet PO 650 mg Q4H PRN Administration Mild Pain (1-3) or Fever Amlodipine Besylate 5 mg 09/07/24 09:00 09/17/24 09:12 Amlodipine Besylate 5 Mg Tablet PO 5 mg QAM NAHOMI Administration Apixaban 2.5 mg 09/07/24 09:30 09/17/24 09:11 Apixaban 2.5 Mg Tablet PO 2.5 mg Q12HR NAHOMI Administration Artificial Tears 1 drop 09/07/24 09:35 09/17/24 09:14 Artificial Tears Ophth Soln 15 Ml Bottle RIGHT EYE 1 drop Q12HR NAHOMI Administration Brimonidine Tartrate 1 drop 09/07/24 09:30 09/17/24 09:14 Brimonidine Tartrate 0.2% Op Soln 5 Ml Btl EACH EYE 1 drop Q12HR NAHOMI Administration Cefdinir 300 mg 09/16/24 09:00 09/17/24 09:12 Cefdinir 300 Mg Capsule PO 09/19/24 21:01 300 mg Q12HR NAHOMI Administration Dextrose 12.5 gm 09/07/24 09:15 Dextrose 50% 25 Gm/50 Ml Syringe IV PUSH PRN PRN Hypoglycemia Protocol Dorzolamide HCl 1 drop 09/07/24 09:30 09/17/24 09:14 Dorzolamide Hcl 2% Ophth Drops RIGHT EYE 1 drop Q12HR NAHOMI Administration Famotidine 20 mg 09/07/24 21:00 09/17/24 09:11 Famotidine 20 Mg/2 Ml Vial IV PUSH 20 mg Q12HR NAHOMI Administration Glucagon 1 mg 09/07/24 09:15 Glucagon For Inj 1 Mg Vial IM PRN PRN Hypoglycemia Protocol Glucose 15 gm 09/07/24 09:15 Glucose Oral Gel 15 Gm Of Glucse In 37.5 Gm Tube PO PRN PRN Hypoglycemia Protocol Hydralazine HCl 50 mg 09/07/24 13:00 09/17/24 15:03 Hydralazine Hcl 50 Mg Tablet PO 50 mg Q8HR NAHOMI Administration Dextrose 1,000 mls @ 100 mls/hr 09/07/24 09:15 Dextrose 5% 1,000 Ml IVPB PRN PRN Hypoglycemia Protocol Lactated Ringer's 1,000 mls @ 100 mls/hr 09/14/24 16:35 09/17/24 06:30 Lr - Lactated Ringers Iv IV CONT 100 mls/hr .Q10H NAHOMI Administration Insulin Aspart 2 - 5 units 09/17/24 08:00 09/17/24 12:49 Insulin Aspart (*Bkc) 100 Units/Ml SUB-Q 2 units TIDWM NAHOMI Administration Protocol Loperamide HCl 2 mg 09/08/24 08:12 09/13/24 18:38 Loperamide Hcl 2 Mg Capsule PO 2 mg Q6HR PRN Administration Diarrhea Metoprolol Succinate 100 mg 09/07/24 09:00 09/17/24 09:12 Metoprolol Succinate Ext Rel 100 Mg Tabcr PO 100 mg QAM NAHOMI Administration Naloxone HCl 0.1 mg 09/07/24 08:19 Naloxone Hcl 0.4 Mg/Ml Vial IV PUSH Q2M PRN Opiate Reversal Ondansetron HCl 4 mg 09/07/24 09:15 09/13/24 14:52 Ondansetron Inj 4 Mg/2 Ml Vial IV PUSH 4 mg Q6H PRN Administration Nausea And Vomiting Polysaccharide Iron Complex 150 mg 09/07/24 17:00 09/17/24 09:11 Polysaccharide Iron Complex 150 Mg Capsule PO 150 mg BIDWM NAHOMI Administration Prednisone 40 mg 09/13/24 08:00 09/17/24 09:11 Prednisone 20 Mg Tablet PO 40 mg DAILY@0800 [facility] Administration Rosuvastatin Calcium 5 mg 09/07/24 09:00 09/17/24 09:12 Rosuvastatin 5 Mg Tablet PO 5 mg QAM NAHOMI Administration Sodium Bicarbonate 1,300 mg 09/10/24 09:00 09/17/24 12:45 Sodium Bicarbonate Tab 650 Mg Tablet PO 1,300 mg TID NAHOMI Administration Sucralfate 1,000 mg 09/07/24 11:30 09/17/24 12:45 Sucralfate Susp 100 Mg/Ml 10 Ml Udc PO 1,000 mg ACHS [facility] Administration Timolol Maleate 1 drop 09/07/24 09:35 09/17/24 09:15 Timolol Maleate 0.5% Op Soln 5 Ml Bottle EACH EYE 1 drop Q12HR NAHOMI Administration Tramadol HCl 50 mg 09/17/24 14:24 Tramadol Hcl (*Crx) 50 Mg Tablet PO Q6H PRN Pain Rated 4-6 Radiology Results: ITS Impressions Abdomen/Pelvis CT 09/07/24 05:37 Impression: Minimal bilateral pleural effusions. Horseshoe kidney. Chest X-Ray 09/07/24 06:11 Impression: Linear scarring or atelectasis at the lung bases, otherwise clear lungs. Elbow X-Ray 09/17/24 12:16 IMPRESSION: 1. No fracture. Knee X-Ray 09/17/24 12:17 IMPRESSION: 1. Minimally displaced extra articular fracture of the proximal left fibular diaphysis. Correlate for any associated ankle pain and consider additional radiographs of the more distal tibia and fibula as clinically indicated. Tibia/Fibula X-Ray 09/17/24 15:54 IMPRESSION: 1. Fractures of proximal and distal fibula. 2. Comminuted fracture of distal tibia. Ankle X-Ray 09/17/24 15:55 IMPRESSION: Trimalleolar fracture of the left ankle, as detailed above. Labs Labs: Laboratory Results - last 24 hr 09/16/24 09/16/24 09/17/24 16:33 20:59 07:13 WBC RBC Hgb Hct MCV MCH MCHC RDW Plt Count MPV BUN 41 H POC Capillary Glucose 261 H 279 H 09/17/24 09/17/24 09/17/24 07:15 07:37 11:31 WBC 9.0 RBC 2.59 L Hgb 7.2 L Hct 22.4 L MCV 86.5 MCH 27.8 MCHC 32.1 RDW 17.2 H Plt Count 152 MPV 12.2 H BUN POC Capillary Glucose 234 H 224 H Quality VTE Prophylaxis VTE prophylaxis: pharmacologic ordered Hospitalist [facility] Advance Care Plan I have confirmed that the patient's Advanced Care Plan is present, code status is documented, or surrogate decision maker is listed in patient medical record.: Yes Medication Reconciliation I have utilized all available resources to obtain, update and review the patients current medications (includes all prescriptions, OTC, herbals, cannabis, and nutritional supplements).: Yes
[2024-09-17] MEDS: traMADol HCL (*CRX) 50 MG TABLET PO (16:57)
[2024-09-17 17:02] LABS: Glucose Point of Care 231 mg/dl (65-105)
[2024-09-17 20:52] LABS: Glucose Point of Care 223 mg/dl (65-105)
[2024-09-17] MEDS: MORPHINE SULFATE (*CRX) 2 MG/ML INJ IV PUSH ×2 (21:08→23:46)
[2024-09-17] MEDS: INSULIN GLARGINE (*BKC) 100 UNITS/ML SUB-Q (21:08)
[2024-09-18] VITALS (9 sets, daily range): BP systolic 120–145; BP diastolic 60–73; PULSE 60–75; RESP 16–20; TEMP 36.1–36.3; O2SAT 92–98
[2024-09-18] MEDS: hydrALAZINE HCL 50 MG TABLET PO ×3 (05:43→20:38)
[2024-09-18] MEDS: ACETAMINOPHEN 325 MG TABLET 650 MG PO ×2 (05:44→16:56)
[2024-09-18] MEDS: SUCRALFATE SUSP 100 MG/ML 10 ML UDC 1000 MG PO ×4 (05:44→20:38)
[2024-09-18 07:07] LABS: Anion Gap 0 mmol/L (4-12); Blood Urea Nitrogen 46 mg/dL (7-17); Calcium 7.4 mg/dL (8.4-10.2); Carbon Dioxide 27 mmol/L (22-30); Chloride 108 mmol/L (98-107); Estimated CRCL calculation 30 ml/min; Estimated Glomerular Filt Rate 23; Glucose 205 mg/dL (65-110); Potassium 4.2 mmol/L (3.4-5.0); Sodium 135 mmol/L (137-145)
[2024-09-18] MEDS: ARTIFICIAL TEARS OPHTH SOLN 15 ML BOTTLE 1 DROP RIGHT EYE ×2 (08:55→20:39)
[2024-09-18] MEDS: ROSUVASTATIN 5 MG TABLET PO (08:55)
[2024-09-18] MEDS: DORZOLAMIDE HCL 2% OPHTH DROPS 1 DROP RIGHT EYE ×2 (08:55→20:39)
[2024-09-18] MEDS: TIMOLOL MALEATE 0.5% OP SOLN 5 ML BOTTLE 1 DROP EACH EYE ×2 (08:55→20:39)
[2024-09-18] MEDS: APIXABAN 2.5 MG TABLET PO ×2 (08:56→20:38)
[2024-09-18] MEDS: predniSONE 20 MG TABLET 40 MG PO (08:56)
[2024-09-18] MEDS: SODIUM BICARBONATE TAB 650 MG TABLET 1300 MG PO ×3 (08:56→16:56)
[2024-09-18] MEDS: METOPROLOL SUCCINATE EXT REL 100 MG TABCR PO (08:56)
[2024-09-18] MEDS: amLODIPine BESYLATE 5 MG TABLET PO (08:56)
[2024-09-18] MEDS: BRIMONIDINE TARTRATE 0.2% OP SOLN 5 ML BTL 1 DROP EACH EYE ×2 (08:56→20:39)
[2024-09-18] MEDS: POLYSACCHARIDE IRON COMPLEX 150 MG CAPSULE PO ×2 (08:56→16:56)
[2024-09-18 08:58] LABS: Glucose Point of Care 200 mg/dl (65-105)
[2024-09-18] MEDS: FAMOTIDINE 20 MG/2 ML VIAL IV PUSH ×2 (09:02→20:37)
[2024-09-18] MEDS: CEFDINIR 300 MG CAPSULE PO ×2 (09:20→20:38)
[2024-09-18 12:12] LABS: Glucose Point of Care 191 mg/dl (65-105)
[2024-09-18] MEDS: oxyCODONE HCL (*CRX) 5 MG TAB IR 10 MG PO (12:45)
--- NOTE | 2024-09-18 15:27 | PM.IMPN ---
Progress Note: A&P Assessment and Plan (1) Fall from ground level: Code(s): W18.30XA - Fall on same level, unspecified, initial encounter Status: Acute Assessment and Plan: - Likely mechanical due to generalized muscle weakness. - Slid down to the floor with PT in room. -continue PT/OT treatment with for precautions. -current on bedrest. -will likely need SNF/rehab placement. - Supportive care for now. -ortho consulted for left ankle and left proximal fibula fracture. (2) Fracture of left proximal fibula: Code(s): S82.832A - Other fracture of upper and lower end of left fibula, initial encounter for closed fracture Status: Acute Assessment and Plan: - Related to # 1. - XR Tib/Fib 2VW: 1. Fractures of proximal and distal fibula. - Ortho consulted. -continue to maintain bedrest for now. -pain meds p.r.n.. -supportive care. (3) Closed left ankle fracture: Code(s): S82.892A - Other fracture of left lower leg, initial encounter for closed fracture Status: Acute Assessment and Plan: - Related to # 1. - XR L. Foot 2VW: 1. Fractures of proximal and distal fibula. 2. Comminuted fracture of distal tibia. -continue to maintain bedrest for now. -Ortho consulted and awaiting recommendations. -supportive care with pain meds p.r.n.. -maintain fall precautions. (4) BUTCH (acute kidney injury): Code(s): N17.9 - Acute kidney failure, unspecified Status: Acute Assessment and Plan: improving CKD stage 4. Creatinine 4.21 on admission, improving with fluids. Complicated by signficant hypokalemia and hypomagnesemia as noted hold nephrotoxic medications Creatinine continues to improve 2.5>>2.38>>2.15 Seen by Nephrology. continue sodium bicarb tabs IVF discontinued 09/18. UA 2+ leukocyte esterase Repleting mag and phos as needed. Continue to monitor on telemetry (5) Urinary tract infection: Code(s): N39.0 - Urinary tract infection, site not specified Status: Inactive Assessment and Plan: UA on 09/07/2024- negativefor acute UTI, repeat on 09/13/2024 with 2+ leukocyte esterase Treated with IV Rocephin X3 doses. Now on Cefdinir per sensitivities for 4 days total BID. (6) Enteritis: Code(s): K52.9 - Noninfective gastroenteritis and colitis, unspecified Status: Acute Assessment and Plan: GI symptoms improving with no emesis or diarrhea episodes today or yesterday. Continues to tolerate meals fairly okay but with poor appetite still. Carafate with meals, pepcid. Changed to PPI after stool for H pylori sent Antiemetics PRN. Seen by GI and no further recommendations for now, Colchicine dc'd. Holding colchicine C-diff negative. Stool for H.pylori ordered and pending. Continue supportive care. (7) Atrial fibrillation: Code(s): I48.91 - Unspecified atrial fibrillation Status: Acute Assessment and Plan: rate controlled continue Eliquis and Crestor (8) Diabetes mellitus: Qualifiers: Diabetes mellitus complication detail: with diabetic retinopathy Diabetes mellitus complication status: with ophthalmic complications Diabetes mellitus intermediate designer insulin use: without intermediate designer use Diabetes mellitus macular edema: without macular edema Diabetes mellitus type: type 2 Diabetic retinopathy severity: with unspecified retinopathy severity Laterality: right Qualified Code(s): E11.319 - Type 2 diabetes mellitus with unspecified diabetic retinopathy without macular edema Code(s): E11.9 - Type 2 diabetes mellitus without complications Status: Chronic Assessment and Plan: HgbA1C is 5.3. Continue hypoglycemic protocol Continue SSI Low-dose lantus added with mod elevated glucose levels. Continue Diabetic diet Continue to adjust meds as needed. (9) Anemia: Code(s): D64.9 - Anemia, unspecified Status: Acute Assessment and Plan: Baseline H&H 04/18.7. 06/24.9 on admission in the setting of dehydration. Occult blood of stool negative. H&H remains stable so far Hgb maintaining >7. Anemia likely due to degree of renal disease + possibly hemodilution. Follow H/H closely. Pancytopenia, may be viral and improving. Transfuse for Hgb < 7. (10) Hypertension: Code(s): I10 - Essential (primary) hypertension Status: Chronic Assessment and Plan: Home meds: Hydralazine 50mg TID, Metoprolol 100mg ER, Amlodipine 5mg Blood pressure well controlled Continue home antihypertensives (11) Retinal detachment: Code(s): H33.20 - Serous retinal detachment, unspecified eye Status: Chronic Assessment and Plan: patient has right eye detachment, and cataracts Safety precautions due to low eyesight. continue home eye drops (12) Pleural effusion: Code(s): J90 - Pleural effusion, not elsewhere classified Status: Chronic Assessment and Plan: stable from earlier this month no SOB Good O2 sats > 92% on room air. (13) Failure to thrive: Status: Acute Assessment and Plan: No s/s of overt malnutrition present. PT/OT evaluate and treat Seen by speech lang path Calorie count had been ordered as pt is not eating. Daily weights. Encouraged with meals. (14) Hypokalemia: Code(s): E87.6 - Hypokalemia Status: Acute Assessment and Plan: replete as needed --Follow BMP, Mag, phos (15) Pericarditis: Code(s): I31.9 - Disease of pericardium, unspecified Status: Acute Assessment and Plan: Recent pericarditis, started on ibuprofen and colcicine 0.6mg BID and patient reports pain resolved --Holding NSAIDs for BUTCH/CKD --Holding colchine for GI symptoms --Started on Prednisone 40mg with a taper --Seen by Cardiology. -- Repeat echocardiogram with no pericardial effusion. Plan Ortho consulted regarding L. Ankle and L. Prox fib fractures. Conservative management for now and further mgt per ortho, bedrest for now. Time Spent With Patient Time with patient: 15 - 25 minutes Subjective Date/time seen: 09/18/24 11:27 Patient states she feels the right and has no pain currently, except for some intermittent moist coughs with no sputum. Interval history: Patient calm on bedrest and looks to be in no acute distress but noted with intermittent moist cough episodes. Review of Systems Review of Systems: 12 systems were reviewed and are negative except for as per HPI. All systems reviewed & are unremarkable except as noted in HPI and below Exam Narrative: General: Fair appearing, no acute distress, generalized muscle weakness. HEENT: normocephalic, atraumatic. PERRL. Mucous membranes dry. Neck supple without JVD, lymphadenopathy, or bruit. Respiratory: Faint expiratory wheezes. Cardiovascular: Regular rate and rhythm, normal S1-S2 upon auscultation. Abdomen: Soft, round, obese. Bowel sounds present to all four quadrants. Extremities: No cyanosis, clubbing, 2+ edema present ac. LE. 4+ edema ac. Feet. Neuro: Alert and orientated x 4. PERRLA. Cranial nerves 2-12 intact without focal deficit. Skin: Warm, dry, and intact, without rash, or lesion. Psych: pleasant, cooperative, flat affect. Objective Data Vital Signs Vital Signs: Vital Signs - 24 hr 09/17/24 16:00 09/17/24 16:00 09/17/24 20:00 Temperature 98.6 F Pulse Rate 69 77 70 Respiratory Rate 18 Blood Pressure 174/83 H Pulse Oximetry 100 Oxygen Delivery 09/17/24 20:00 09/17/24 20:00 09/18/24 00:00 Temperature 97.2 F L Pulse Rate 73 65 Respiratory Rate 20 Blood Pressure 152/79 H Pulse Oximetry 100 Oxygen Delivery Room Air 09/18/24 04:00 09/18/24 06:00 Temperature 97.0 F L Pulse Rate 64 73 Respiratory Rate 20 Blood Pressure 137/73 Pulse Oximetry 98 Oxygen Delivery Intake/Output Intake/Output: Intake & Output 09/15/24 09/16/24 09/17/24 09/18/24 23:59 23:59 23:59 23:59 Intake Total 4920 2806.4 2597 300 Output Total 500 500 Balance 4420 2306.4 2597 300 Meds/Results Medications: Active Medications Generic Name Dose Route Start Last Admin Trade Name Freq PRN Reason Stop Dose Admin Acetaminophen 650 mg 09/17/24 20:00 09/18/24 12:46 Acetaminophen 325 Mg Tablet PO Not Given Q6HR [facility] Amlodipine Besylate 5 mg 09/07/24 09:00 09/18/24 08:56 Amlodipine Besylate 5 Mg Tablet PO 5 mg QAM NAHOMI Administration Apixaban 2.5 mg 09/07/24 09:30 09/18/24 08:56 Apixaban 2.5 Mg Tablet PO 2.5 mg Q12HR NAHOMI Administration Artificial Tears 1 drop 09/07/24 09:35 09/18/24 08:55 Artificial Tears Ophth Soln 15 Ml Bottle RIGHT EYE 1 drop Q12HR NAHOMI Administration Brimonidine Tartrate 1 drop 09/07/24 09:30 09/18/24 08:56 Brimonidine Tartrate 0.2% Op Soln 5 Ml Btl EACH EYE 1 drop Q12HR NAHOMI Administration Cefdinir 300 mg 09/16/24 09:00 09/18/24 09:20 Cefdinir 300 Mg Capsule PO 09/19/24 21:01 300 mg Q12HR NAHOMI Administration Dextrose 12.5 gm 09/07/24 09:15 Dextrose 50% 25 Gm/50 Ml Syringe IV PUSH PRN PRN Hypoglycemia Protocol Dorzolamide HCl 1 drop 09/07/24 09:30 09/18/24 08:55 Dorzolamide Hcl 2% Ophth Drops RIGHT EYE 1 drop Q12HR NA[facility]OMI Administration Famotidine 20 mg 09/07/24 21:00 09/18/24 09:02 Famotidine 20 Mg/2 Ml Vial IV PUSH 20 mg Q12HR NA[facility]OMI Administration Glucagon 1 mg 09/07/24 09:15 Glucagon For Inj 1 Mg Vial IM PRN PRN Hypoglycemia Protocol Glucose 15 gm 09/07/24 09:15 Glucose Oral Gel 15 Gm Of Glucse In 37.5 Gm Tube PO PRN PRN Hypoglycemia Protocol Hydralazine HCl 50 mg 09/07/24 13:00 09/18/24 12:45 Hydralazine Hcl 50 Mg Tablet PO 50 mg Q8HR [facility]OMI Administration Dextrose 1,000 mls @ 100 mls/hr 09/07/24 09:15 Dextrose 5% 1,000 Ml IVPB PRN PRN Hypoglycemia Protocol Lactated Ringer's 1,000 mls @ 100 mls/hr 09/14/24 16:35 09/17/24 21:51 Lr - Lactated Ringers Iv IV CONT Not Given .Q10H [facility] Insulin Aspart 2 - 5 units 09/17/24 08:00 09/18/24 09:19 Insulin Aspart (*Bkc) 100 Units/Ml SUB-Q Not Given TIDWM [facility] Protocol Insulin Glargine 5 units 09/17/24 21:00 09/17/24 21:08 Insulin Glargine (*Bkc) 100 Units/Ml SUB-Q 5 units HS NAHOMI Administration Loperamide HCl 2 mg 09/08/24 08:12 09/13/24 18:38 Loperamide Hcl 2 Mg Capsule PO 2 mg Q6HR PRN Administration Diarrhea Metoprolol Succinate 100 mg 09/07/24 09:00 09/18/24 08:56 Metoprolol Succinate Ext Rel 100 Mg Tabcr PO 100 mg QAM NAHOMI Administration Morphine Sulfate 2 mg 09/17/24 19:48 09/17/24 23:46 Morphine Sulfate (*Crx) 2 Mg/Ml Inj IV PUSH 2 mg Q4H PRN Administration Pain Rated 7-10 Naloxone HCl 0.1 mg 09/07/24 08:19 Naloxone Hcl 0.4 Mg/Ml Vial IV PUSH Q2M PRN Opiate Reversal Ondansetron HCl 4 mg 09/07/24 09:15 09/13/24 14:52 Ondansetron Inj 4 Mg/2 Ml Vial IV PUSH 4 mg Q6H PRN Administration Nausea And Vomiting Oxycodone HCl 5 mg 09/17/24 19:48 Oxycodone Hcl (*Crx) 5 Mg Tab Ir PO Q4H PRN Pain Rated 4-6 Oxycodone HCl 10 mg 09/17/24 19:48 09/18/24 12:45 Oxycodone Hcl (*Crx) 5 Mg Tab Ir PO 10 mg Q4H PRN Administration Pain Rated 7-9 Polysaccharide Iron Complex 150 mg 09/07/24 17:00 09/18/24 08:56 Polysaccharide Iron Complex 150 Mg Capsule PO 150 mg BIDWM [facility]OMI Administration Prednisone 40 mg 09/13/24 08:00 09/18/24 08:56 Prednisone 20 Mg Tablet PO 40 mg DAILY@0800 [facility] Administration Rosuvastatin Calcium 5 mg 09/07/24 09:00 09/18/24 08:55 Rosuvastatin 5 Mg Tablet PO 5 mg QAM NAHOMI Administration Sodium Bicarbonate 1,300 mg 09/10/24 09:00 09/18/24 12:45 Sodium Bicarbonate Tab 650 Mg Tablet PO 1,300 mg TID NAHOMI Administration Sucralfate 1,000 mg 09/07/24 11:30 09/18/24 05:44 Sucralfate Susp 100 Mg/Ml 10 Ml Udc PO 1,000 mg ACHS [facility] Administration Timolol Maleate 1 drop 09/07/24 09:35 09/18/24 08:55 Timolol Maleate 0.5% Op Soln 5 Ml Bottle EACH EYE 1 drop Q12HR [facility] Administration Radiology Results: ITS Impressions Abdomen/Pelvis CT 09/07/24 05:37 Impression: Minimal bilateral pleural effusions. Horseshoe kidney. Elbow X-Ray 09/17/24 12:16 IMPRESSION: 1. No fracture. Knee X-Ray 09/17/24 12:17 IMPRESSION: 1. Minimally displaced extra articular fracture of the proximal left fibular diaphysis. Correlate for any associated ankle pain and consider additional radiographs of the more distal tibia and fibula as clinically indicated. Tibia/Fibula X-Ray 09/17/24 15:54 IMPRESSION: 1. Fractures of proximal and distal fibula. 2. Comminuted fracture of distal tibia. Ankle X-Ray 09/17/24 15:55 IMPRESSION: Trimalleolar fracture of the left ankle, as detailed above. Chest X-Ray 09/18/24 13:22 IMPRESSION: 1. Unchanged linear atelectasis/scarring at the bilateral lower lungs. Labs Labs: Laboratory Results - last 24 hr 09/17/24 09/17/24 09/18/24 16:42 20:48 06:22 Sodium 135 L Potassium 4.2 Chloride 108 H Carbon Dioxide 27 Anion Gap 0 L BUN 46 H Creatinine 2.16 H Estim Creat Clear Calc 30 Estimated GFR 23 L Glucose 205 H POC Capillary Glucose 231 H 223 H Calcium 7.4 L 09/18/24 09/18/24 08:09 11:50 Sodium Potassium Chloride Carbon Dioxide Anion Gap BUN Creatinine Estim Creat Clear Calc Estimated GFR Glucose POC Capillary Glucose 200 H 191 H Calcium Quality VTE Prophylaxis VTE prophylaxis: pharmacologic ordered Hospitalist MIPS Advance Care Plan I have confirmed that the patient's Advanced Care Plan is present, code status is documented, or surrogate decision maker is listed in patient medical record.: Yes Medication Reconciliation I have utilized all available resources to obtain, update and review the patients current medications (includes all prescriptions, OTC, herbals, cannabis, and nutritional supplements).: Yes
[2024-09-18] MEDS: LORATADINE 5 MG TABLET PO (17:01)
[2024-09-18] MEDS: guaiFENesin/DEXTROMETHORPHAN 10 ML UDC 5 ML PO (17:03)
[2024-09-18] MEDS: INSULIN ASPART (*BKC) 100 UNITS/ML SUB-Q (17:08)
[2024-09-18 17:09] LABS: Glucose Point of Care 238 mg/dl (65-105)
[2024-09-18] MEDS: LACTATED RINGERS 1,000 ML 100 ML IV CONT (20:36)
[2024-09-18] MEDS: MORPHINE SULFATE (*CRX) 2 MG/ML INJ IV PUSH ×2 (20:38→23:24)
[2024-09-18] MEDS: INSULIN GLARGINE (*BKC) 100 UNITS/ML SUB-Q (20:39)
[2024-09-18 22:09] LABS: Glucose Point of Care 238 mg/dl (65-105)
[2024-09-19] VITALS (8 sets, daily range): BP systolic 126–141; BP diastolic 58–74; PULSE 63–79; RESP 14–20; TEMP 36.1–36.8; O2SAT 94–99
[2024-09-19] MEDS: hydrALAZINE HCL 50 MG TABLET PO ×3 (05:02→20:53)
[2024-09-19] MEDS: ACETAMINOPHEN 325 MG TABLET 650 MG PO ×3 (05:02→16:45)
[2024-09-19] MEDS: SUCRALFATE SUSP 100 MG/ML 10 ML UDC 1000 MG PO ×4 (05:03→20:47)
[2024-09-19] MEDS: POLYSACCHARIDE IRON COMPLEX 150 MG CAPSULE PO ×2 (07:28→07:58)
[2024-09-19] MEDS: predniSONE 20 MG TABLET 40 MG PO (07:28)
[2024-09-19] MEDS: guaiFENesin/DEXTROMETHORPHAN 10 ML UDC 5 ML PO ×2 (07:29→16:53)
[2024-09-19] MEDS: LORATADINE 5 MG TABLET PO (07:57)
[2024-09-19] MEDS: APIXABAN 2.5 MG TABLET PO ×2 (07:58→20:46)
[2024-09-19] MEDS: METOPROLOL SUCCINATE EXT REL 100 MG TABCR PO (07:58)
[2024-09-19] MEDS: ROSUVASTATIN 5 MG TABLET PO (07:58)
[2024-09-19] MEDS: amLODIPine BESYLATE 5 MG TABLET PO (07:58)
[2024-09-19] MEDS: FAMOTIDINE 20 MG/2 ML VIAL IV PUSH ×2 (07:58→20:47)
[2024-09-19] MEDS: SODIUM BICARBONATE TAB 650 MG TABLET 1300 MG PO ×3 (07:58→16:45)
[2024-09-19] MEDS: BRIMONIDINE TARTRATE 0.2% OP SOLN 5 ML BTL 1 DROP EACH EYE ×2 (08:00→20:51)
[2024-09-19] MEDS: TIMOLOL MALEATE 0.5% OP SOLN 5 ML BOTTLE 1 DROP EACH EYE ×2 (08:00→20:51)
[2024-09-19] MEDS: DORZOLAMIDE HCL 2% OPHTH DROPS 1 DROP RIGHT EYE ×2 (08:00→20:51)
[2024-09-19] MEDS: ARTIFICIAL TEARS OPHTH SOLN 15 ML BOTTLE 1 DROP RIGHT EYE ×2 (08:00→20:51)
[2024-09-19] MEDS: CEFDINIR 300 MG CAPSULE PO ×2 (08:00→20:47)
[2024-09-19 08:16] LABS: Glucose Point of Care 178 mg/dl (65-105)
--- NOTE | 2024-09-19 08:35 | PCOTNOTE ---
Pt. is currently non-weight bearing on L ankle, without protective/ supportive orthotic. Awaiting further decision from ortho prior to mobilizing due to safety concerns. Will follow up if no further progress has been made.
[2024-09-19 08:41] LABS: Anion Gap 2 mmol/L (4-12); Blood Urea Nitrogen 54 mg/dL (7-17); Calcium 7.6 mg/dL (8.4-10.2); Carbon Dioxide 25 mmol/L (22-30); Chloride 108 mmol/L (98-107); Estimated CRCL calculation 28 ml/min; Estimated Glomerular Filt Rate 20; Glucose 190 mg/dL (65-110); Potassium 4.5 mmol/L (3.4-5.0); Sodium 135 mmol/L (137-145)
--- NOTE | 2024-09-19 11:46 | P.PNIM_ITS ---
Progress Note: A&P Assessment and Plan (1) Fall from ground level: Code(s): W18.30XA - Fall on same level, unspecified, initial encounter Status: Acute Assessment and Plan: - Likely mechanical due to generalized muscle weakness. - Slid down to the floor with PT in room. -continue PT/OT treatment with for precautions. -current on bedrest. -will likely need SNF/rehab placement. - Supportive care for now. -ortho consulted for left ankle and left proximal fibula fracture. (2) Fracture of left proximal fibula: Code(s): S82.832A - Other fracture of upper and lower end of left fibula, initial encounter for closed fracture Status: Acute Assessment and Plan: - Related to # 1. - XR Tib/Fib 2VW: 1. Fractures of proximal and distal fibula. - Ortho consulted and awaiting recommendations. -continue to maintain bedrest for now. -pain meds p.r.n.. -supportive care. (3) Closed left ankle fracture: Code(s): S82.892A - Other fracture of left lower leg, initial encounter for closed fracture Status: Acute Assessment and Plan: - Related to # 1. - XR L. Foot 2VW: 1. Fractures of proximal and distal fibula. 2. Comminuted fracture of distal tibia. -continue to maintain bedrest for now. -Ortho consulted and awaiting recommendations. -supportive care with pain meds p.r.n.. -maintain fall precautions. (4) BUTCH (acute kidney injury): Code(s): N17.9 - Acute kidney failure, unspecified Status: Acute Assessment and Plan: improving CKD stage 4. Creatinine 4.21 on admission, improving with fluids. Complicated by signficant hypokalemia and hypomagnesemia as noted hold nephrotoxic medications * Creatinine continues to improve 2.5>>2.38>>2.15>>2.45 * Seen by Nephrology but no recent f/u from nephro. * We'll re-check with nephro on any new recommendations. * Albumin ordered X4 doses. * continue sodium bicarb tabs * IVF currently off due to significant LE edema. * Repleting mag and phos as needed. * Continue to monitor on telemetry (5) Urinary tract infection: Code(s): N39.0 - Urinary tract infection, site not specified Status: Inactive Assessment and Plan: UA on 09/07/2024- negativefor acute UTI, repeat on 09/13/2024 with 2+ leukocyte esterase Treated with IV Rocephin X3 doses. Now on Cefdinir per sensitivities for 4 days total BID. (6) Enteritis: Code(s): K52.9 - Noninfective gastroenteritis and colitis, unspecified Status: Acute Assessment and Plan: * GI symptoms improving with no emesis or diarrhea episodes today or yesterday. * Continues to tolerate meals fairly okay but with poor appetite still. * Carafate with meals, pepcid. Changed to PPI after stool for H pylori sent * Antiemetics PRN. * Seen by GI and no further recommendations for now, Colchicine dc'd. * Holding colchicine * C-diff negative. * Stool for H.pylori ordered and pending. * Continue supportive care. (7) Atrial fibrillation: Code(s): I48.91 - Unspecified atrial fibrillation Status: Acute Assessment and Plan: rate controlled continue Eliquis and Crestor (8) Diabetes mellitus: Qualifiers: Diabetes mellitus complication detail: with diabetic retinopathy Diabetes mellitus complication status: with ophthalmic complications Diabetes mellitus fdc insulin use: without long term care administrator use Diabetes mellitus macular edema: without macular edema Diabetes mellitus type: type 2 Diabetic retinopathy severity: with unspecified retinopathy severity Laterality: right Qualified Code(s): E11.319 - Type 2 diabetes mellitus with unspecified diabetic retinopathy without macular edema Code(s): E11.9 - Type 2 diabetes mellitus without complications Status: Chronic Assessment and Plan: HgbA1C is 5.3. * Continue hypoglycemic protocol * Continue SSI * Low-dose lantus added with mod elevated glucose levels. * Continue Diabetic diet * Continue to adjust meds as needed. (9) Anemia: Code(s): D64.9 - Anemia, unspecified Status: Acute Assessment and Plan: Baseline H&H 04/18.7. 06/24.9 on admission in the setting of dehydration. * Occult blood of stool negative. * H&H remains stable so far Hgb maintaining >7. * Anemia likely due to degree of renal disease + possibly hemodilution. * Follow H/H closely. * Pancytopenia, may be viral and improving. * Transfuse for Hgb < 7. (10) Hypertension: Code(s): I10 - Essential (primary) hypertension Status: Chronic Assessment and Plan: Home meds: Hydralazine 50mg TID, Metoprolol 100mg ER, Amlodipine 5mg * Blood pressure well controlled * Continue home antihypertensives (11) Retinal detachment: Code(s): H33.20 - Serous retinal detachment, unspecified eye Status: Chronic Assessment and Plan: patient has right eye detachment, and cataracts * Safety precautions due to low eyesight. * continue home eye drops (12) Pleural effusion: Code(s): J90 - Pleural effusion, not elsewhere classified Status: Chronic Assessment and Plan: stable from earlier this month no SOB Good O2 sats > 92% on room air. (13) Failure to thrive: Status: Acute Assessment and Plan: No s/s of overt malnutrition present. * PT/OT evaluate and treat * Seen by mercerizing range controller * Daily weights. * Encouraged with meals. (14) Hypokalemia: Code(s): E87.6 - Hypokalemia Status: Acute Assessment and Plan: replete as needed --Follow BMP, Mag, phos (15) Pericarditis: Code(s): I31.9 - Disease of pericardium, unspecified Status: Acute Assessment and Plan: Recent pericarditis, started on ibuprofen and colcicine 0.6mg BID and patient reports pain resolved --No NSAIDs for BUTCH/CKD --No colchine for GI symptoms --Started on Prednisone 40mg with a taper --Seen by Cardiology and we'll discuss with Card's on Prednisone taper. -- Repeat echocardiogram with no pericardial effusion. Plan Ortho consulted regarding L. Ankle and L. Prox fib fractures. Conservative management for now and further mgt per ortho, bedrest for now. Time Spent With Patient Time with patient: 15 - 25 minutes Subjective Date/time seen: 09/19/24 11:40 Patient on bedrest and states she is feeling okay concurrently has no pain or other distress with symptoms. Interval history: Patient calm on bedrest and looks to be in no acute distress but noted with intermittent moist cough episodes. Patient admitted with enteritis that is improving and patient's appetite slowly improving. Patient also had a UTI and is currently on oral antibiotics. She had BUTCH that is improving as well with IV fluid hydration and Nephrology saw patient. Patient was working with PT yesterday and had to be lowered to the ground due to lower extremity weakness. She reported LLE pain and imaging showed left proximal fibular fracture and a left ankle fracture. Patient seen by Ortho and awaiting recommendations. Patient will be maintained on bedrest currently. Review of Systems Review of Systems: 12 systems were reviewed and are negative except for as per HPI. All systems reviewed & are unremarkable except as noted in HPI and below Exam Narrative: General: Fair appearing, no acute distress, generalized muscle weakness. HEENT: normocephalic, atraumatic. PERRL. Mucous membranes dry. Neck supple without JVD, lymphadenopathy, or bruit. Respiratory: Faint expiratory wheezes. Cardiovascular: Regular rate and rhythm, normal S1-S2 upon auscultation. Abdomen: Soft, round, obese. Bowel sounds present to all four quadrants. Extremities: No cyanosis, clubbing, 2+ edema present ac. LE. 4+ edema ac. Feet. Neuro: Alert and orientated x 4. PERRLA. Cranial nerves 2-12 intact without focal deficit. Skin: Warm, dry, and intact, without rash, or lesion. Psych: pleasant, cooperative, flat affect. Objective Data Vital Signs Vital Signs: Vital Signs - 24 hr 09/18/24 12:00 09/18/24 14:00 09/18/24 16:00 Temperature 97.3 F L Pulse Rate 75 69 69 Respiratory Rate 18 Blood Pressure 145/73 H Pulse Oximetry 98 Oxygen Delivery 09/18/24 16:00 09/18/24 20:00 09/18/24 20:00 Temperature 97.3 F L Pulse Rate 69 69 60 Respiratory Rate 18 18 Blood Pressure 120/60 Pulse Oximetry 92 92 Oxygen Delivery Room Air 09/18/24 22:00 09/19/24 00:00 09/19/24 04:00 Temperature 97.0 F L Pulse Rate 69 63 66 Respiratory Rate 16 Blood Pressure 141/63 H Pulse Oximetry 94 Oxygen Delivery 09/19/24 06:00 09/19/24 08:00 09/19/24 08:00 Temperature 97.0 F L 98.2 F Pulse Rate 72 79 79 Respiratory Rate 20 14 14 Blood Pressure 141/74 H 129/58 L Pulse Oximetry 98 99 99 Oxygen Delivery Room Air 09/19/24 08:00 Temperature Pulse Rate 79 Respiratory Rate Blood Pressure Pulse Oximetry Oxygen Delivery Intake/Output Intake/Output: Intake & Output 09/16/24 09/17/24 09/18/24 09/19/24 23:59 23:59 23:59 23:59 Intake Total 2806.4 2597 3160 780 Output Total 500 800 Balance 2306.4 2597 3160 -20 Meds/Results Medications: Active Medications Generic Name Dose Route Start Last Admin Trade Name Freq PRN Reason Stop Dose Admin Acetaminophen 650 mg 09/17/24 20:00 09/19/24 05:02 Acetaminophen 325 Mg Tablet PO 650 mg Q6HR NAHOMI Administration Amlodipine Besylate 5 mg 09/07/24 09:00 09/19/24 07:58 Amlodipine Besylate 5 Mg Tablet PO 5 mg QAM NAHOMI Administration Apixaban 2.5 mg 09/07/24 09:30 09/19/24 07:58 Apixaban 2.5 Mg Tablet PO 2.5 mg Q12HR NAHOMI Administration Artificial Tears 1 drop 09/07/24 09:35 09/19/24 08:00 Artificial Tears Ophth Soln 15 Ml Bottle RIGHT EYE 1 drop Q12HR NAHOMI Administration Brimonidine Tartrate 1 drop 09/07/24 09:30 09/19/24 08:00 Brimonidine Tartrate 0.2% Op Soln 5 Ml Btl EACH EYE 1 drop Q12HR NAHOMI Administration Cefdinir 300 mg 09/16/24 09:00 09/19/24 08:00 Cefdinir 300 Mg Capsule PO 09/19/24 21:01 300 mg Q12HR NAHOMI Administration Dextrose 12.5 gm 09/07/24 09:15 Dextrose 50% 25 Gm/50 Ml Syringe IV PUSH PRN PRN Hypoglycemia Protocol Dorzolamide HCl 1 drop 09/07/24 09:30 09/19/24 08:00 Dorzolamide Hcl 2% Ophth Drops RIGHT EYE 1 drop Q12HR NAHOMI Administration Famotidine 20 mg 09/07/24 21:00 09/19/24 07:58 Famotidine 20 Mg/2 Ml Vial IV PUSH 20 mg Q12HR NAHOMI Administration Glucagon 1 mg 09/07/24 09:15 Glucagon For Inj 1 Mg Vial IM PRN PRN Hypoglycemia Protocol Glucose 15 gm 09/07/24 09:15 Glucose Oral Gel 15 Gm Of Glucse In 37.5 Gm Tube PO PRN PRN Hypoglycemia Protocol Guaifenesin/Dextromethorphan 5 ml 09/18/24 15:30 09/19/24 07:29 Guaifenesin/Dextromethorphan 10 Ml Udc PO 5 ml Q4H PRN Administration Cough Hydralazine HCl 50 mg 09/07/24 13:00 09/19/24 05:02 Hydralazine Hcl 50 Mg Tablet PO 50 mg Q8HR NAHOMI Administration Dextrose 1,000 mls @ 100 mls/hr 09/07/24 09:15 Dextrose 5% 1,000 Ml IVPB PRN PRN Hypoglycemia Protocol Insulin Aspart 2 - 5 units 09/17/24 08:00 09/19/24 08:01 Insulin Aspart (*Bkc) 100 Units/Ml SUB-Q Not Given TIDWM NAHOMI Protocol Insulin Glargine 5 units 09/17/24 21:00 09/18/24 20:39 Insulin Glargine (*Bkc) 100 Units/Ml SUB-Q 5 units HS NAHOMI Administration Loperamide HCl 2 mg 09/08/24 08:12 09/13/24 18:38 Loperamide Hcl 2 Mg Capsule PO 2 mg Q6HR PRN Administration Diarrhea Loratadine 5 mg 09/18/24 15:35 09/19/24 07:57 Loratadine 5 Mg Tablet PO 5 mg QAM [facility] Administration Metoprolol Succinate 100 mg 09/07/24 09:00 09/19/24 07:58 Metoprolol Succinate Ext Rel 100 Mg Tabcr PO 100 mg QAM NAHOMI Administration Morphine Sulfate 2 mg 09/17/24 19:48 09/18/24 23:24 Morphine Sulfate (*Crx) 2 Mg/Ml Inj IV PUSH 2 mg Q4H PRN Administration Pain Rated 7-10 Naloxone HCl 0.1 mg 09/07/24 08:19 Naloxone Hcl 0.4 Mg/Ml Vial IV PUSH Q2M PRN Opiate Reversal Ondansetron HCl 4 mg 09/07/24 09:15 09/13/24 14:52 Ondansetron Inj 4 Mg/2 Ml Vial IV PUSH 4 mg Q6H PRN Administration Nausea And Vomiting Oxycodone HCl 5 mg 09/17/24 19:48 Oxycodone Hcl (*Crx) 5 Mg Tab Ir PO Q4H PRN Pain Rated 4-6 Oxycodone HCl 10 mg 09/17/24 19:48 09/18/24 12:45 Oxycodone Hcl (*Crx) 5 Mg Tab Ir PO 10 mg Q4H PRN Administration Pain Rated 7-9 Polysaccharide Iron Complex 150 mg 09/07/24 17:00 09/19/24 07:58 Polysaccharide Iron Complex 150 Mg Capsule PO 150 mg BIDWM NAHOMI Administration Prednisone 40 mg 09/13/24 08:00 09/19/24 07:28 Prednisone 20 Mg Tablet PO 40 mg DAILY@0800 NAHOMI Administration Pseudoephedrine HCl 30 mg 09/18/24 15:31 Pseudoephedrine Hcl 30 Mg Tablet PO Q4H PRN Congestion Rosuvastatin Calcium 5 mg 09/07/24 09:00 09/19/24 07:58 Rosuvastatin 5 Mg Tablet PO 5 mg QAM NAHOMI Administration Sodium Bicarbonate 1,300 mg 09/10/24 09:00 09/19/24 07:58 Sodium Bicarbonate Tab 650 Mg Tablet PO 1,300 mg TID NAHOMI Administration Sucralfate 1,000 mg 09/07/24 11:30 09/19/24 05:03 Sucralfate Susp 100 Mg/Ml 10 Ml Udc PO 1,000 mg ACHS NAHOMI Administration Timolol Maleate 1 drop 09/07/24 09:35 09/19/24 08:00 Timolol Maleate 0.5% Op Soln 5 Ml Bottle EACH EYE 1 drop Q12HR NAHOMI Administration Radiology Results: ITS Impressions Abdomen/Pelvis CT 09/07/24 05:37 Impression: Minimal bilateral pleural effusions. Horseshoe kidney. Elbow X-Ray 09/17/24 12:16 IMPRESSION: 1. No fracture. Knee X-Ray 09/17/24 12:17 IMPRESSION: 1. Minimally displaced extra articular fracture of the proximal left fibular diaphysis. Correlate for any associated ankle pain and consider additional radiographs of the more distal tibia and fibula as clinically indicated. Tibia/Fibula X-Ray 09/17/24 15:54 IMPRESSION: 1. Fractures of proximal and distal fibula. 2. Comminuted fracture of distal tibia. Ankle X-Ray 09/17/24 15:55 IMPRESSION: Trimalleolar fracture of the left ankle, as detailed above. Chest X-Ray 09/18/24 13:22 IMPRESSION: 1. Unchanged linear atelectasis/scarring at the bilateral lower lungs. Labs Labs: Laboratory Results - last 24 hr 09/18/24 09/18/24 09/18/24 11:50 17:00 21:05 Sodium Potassium Chloride Carbon Dioxide Anion Gap BUN Creatinine Estim Creat Clear Calc Estimated GFR Glucose POC Capillary Glucose 191 H 238 H 238 H Calcium 09/19/24 09/19/24 07:18 08:00 Sodium 135 L Potassium 4.5 Chloride 108 H Carbon Dioxide 25 Anion Gap 2 L BUN 54 H Creatinine 2.45 H Estim Creat Clear Calc 28 Estimated GFR 20 L Glucose 190 H POC Capillary Glucose 178 H Calcium 7.6 L Quality VTE Prophylaxis VTE prophylaxis: pharmacologic ordered Hospitalist [facility] Advance Care Plan I have confirmed that the patient's Advanced Care Plan is present, code status is documented, or surrogate decision maker is listed in patient medical record.: Yes Medication Reconciliation I have utilized all available resources to obtain, update and review the patients current medications (includes all prescriptions, OTC, herbals, cannabis, and nutritional supplements).: Yes
[2024-09-19 12:01] LABS: Glucose Point of Care 233 mg/dl (65-105)
--- NOTE | 2024-09-19 12:01 | PCPTNOTE ---
HOLD PT-- per today's hospitalist note: bedrest and awaiting ortho consult due to L tibial proximal and distal& fibula fractures.
[2024-09-19] MEDS: INSULIN ASPART (*BKC) 100 UNITS/ML SUB-Q ×2 (12:02→17:09)
[2024-09-19 16:51] LABS: Glucose Point of Care 257 mg/dl (65-105)
--- NOTE | 2024-09-19 18:27 | PC.NURSE ---
Patient refusing Albumin at his time because it is a blood product. Family and patient stated they would like to do more research before patient receives medication. Notified provider , Rose SERRATO.
[2024-09-19] MEDS: INSULIN GLARGINE (*BKC) 100 UNITS/ML SUB-Q (20:47)
[2024-09-19 21:27] LABS: Glucose Point of Care 238 mg/dl (65-105)
[2024-09-20] VITALS (9 sets, daily range): BP systolic 126–167; BP diastolic 55–81; PULSE 59–79; RESP 16–18; TEMP 36.1–36.7; O2SAT 95–100
[2024-09-20] MEDS: ACETAMINOPHEN 325 MG TABLET 650 MG PO ×4 (00:41→17:54)
[2024-09-20] MEDS: hydrALAZINE HCL 50 MG TABLET PO ×3 (05:14→21:09)
[2024-09-20] MEDS: SUCRALFATE SUSP 100 MG/ML 10 ML UDC 1000 MG PO ×4 (05:17→21:08)
[2024-09-20 07:22] LABS: Anion Gap 6 mmol/L (4-12); Blood Urea Nitrogen 62 mg/dL (7-17); Calcium 7.6 mg/dL (8.4-10.2); Carbon Dioxide 23 mmol/L (22-30); Chloride 106 mmol/L (98-107); Estimated CRCL calculation 26 ml/min; Estimated Glomerular Filt Rate 19; Glucose 222 mg/dL (65-110); Potassium 4.2 mmol/L (3.4-5.0); Sodium 135 mmol/L (137-145)
[2024-09-20] MEDS: oxyCODONE HCL (*CRX) 5 MG TAB IR 10 MG PO (07:39)
[2024-09-20] MEDS: guaiFENesin/DEXTROMETHORPHAN 10 ML UDC 5 ML PO ×3 (07:40→17:51)
[2024-09-20] MEDS: POLYSACCHARIDE IRON COMPLEX 150 MG CAPSULE PO ×2 (07:42→17:54)
[2024-09-20] MEDS: predniSONE 20 MG TABLET 40 MG PO (07:42)
[2024-09-20] MEDS: BRIMONIDINE TARTRATE 0.2% OP SOLN 5 ML BTL 1 DROP EACH EYE ×2 (07:43→21:10)
[2024-09-20] MEDS: DORZOLAMIDE HCL 2% OPHTH DROPS 1 DROP RIGHT EYE ×2 (07:43→21:10)
[2024-09-20] MEDS: ARTIFICIAL TEARS OPHTH SOLN 15 ML BOTTLE 1 DROP RIGHT EYE ×2 (07:43→21:10)
[2024-09-20] MEDS: TIMOLOL MALEATE 0.5% OP SOLN 5 ML BOTTLE 1 DROP EACH EYE ×2 (07:44→21:10)
[2024-09-20] MEDS: LORATADINE 5 MG TABLET PO (07:45)
[2024-09-20] MEDS: amLODIPine BESYLATE 5 MG TABLET PO (07:45)
[2024-09-20] MEDS: FAMOTIDINE 20 MG/2 ML VIAL IV PUSH ×2 (07:45→21:08)
[2024-09-20] MEDS: METOPROLOL SUCCINATE EXT REL 100 MG TABCR PO (07:45)
[2024-09-20] MEDS: APIXABAN 2.5 MG TABLET PO ×2 (07:45→21:09)
[2024-09-20] MEDS: ROSUVASTATIN 5 MG TABLET PO (07:45)
[2024-09-20] MEDS: SODIUM BICARBONATE TAB 650 MG TABLET 1300 MG PO ×3 (07:45→17:48)
[2024-09-20] MEDS: PSEUDOEPHEDRINE HCL 30 MG TABLET PO (07:54)
[2024-09-20] MEDS: INSULIN ASPART (*BKC) 100 UNITS/ML SUB-Q ×3 (08:10→17:48)
[2024-09-20 08:17] LABS: Glucose Point of Care 219 mg/dl (65-105)
[2024-09-20 12:03] LABS: Glucose Point of Care 226 mg/dl (65-105)
[2024-09-20] MEDS: oxyCODONE HCL (*CRX) 5 MG TAB IR PO (12:47)
--- NOTE | 2024-09-20 15:26 | P.PNIM_ITS ---
Progress Note: A&P Assessment and Plan (1) Fall from ground level: Code(s): W18.30XA - Fall on same level, unspecified, initial encounter Status: Acute Assessment and Plan: - Likely mechanical due to generalized muscle weakness. - Slid down to the floor with PT in room. -continue PT/OT treatment with for precautions. -current on bedrest. -will likely need SNF/rehab placement. - Supportive care for now. -ortho consulted and awaiting recommendations. (2) Fracture of left proximal fibula: Code(s): S82.832A - Other fracture of upper and lower end of left fibula, initial encounter for closed fracture Status: Acute Assessment and Plan: - Related to # 1. - XR Tib/Fib 2VW: 1. Fractures of proximal and distal fibula. - Ortho consulted and awaiting recommendations. -continue to maintain bedrest for now. -pain meds p.r.n.. -supportive care. (3) Closed left ankle fracture: Code(s): S82.892A - Other fracture of left lower leg, initial encounter for closed fracture Status: Acute Assessment and Plan: - Related to # 1. - XR L. Foot 2VW: 1. Fractures of proximal and distal fibula. 2. Comminuted fracture of distal tibia. -continue to maintain bedrest for now. -Ortho consulted and awaiting recommendations. -supportive care with pain meds p.r.n.. -maintain fall precautions. (4) BUTCH (acute kidney injury): Code(s): N17.9 - Acute kidney failure, unspecified Status: Acute Assessment and Plan: improved but now stable. CKD stage 4. Creatinine 4.21 on admission, improving with fluids. Complicated by signficant hypokalemia and hypomagnesemia as noted hold nephrotoxic medications * Creatinine stabling; 2.5>>2.38>>2.15>>2.45 * Seen by Nephrology but no recent f/u from nephro. * We'll re-check with nephro on any new recommendations if worsens. * Albumin ordered X4 doses but pt refused. * continue sodium bicarb tabs * IVF currently off due to significant LE edema. * Repleting mag and phos as needed. * Continue to monitor on telemetry (5) Urinary tract infection: Code(s): N39.0 - Urinary tract infection, site not specified Status: Inactive Assessment and Plan: UA on 09/07/2024- negativefor acute UTI, repeat on 09/13/2024 with 2+ leukocyte esterase Treated with IV Rocephin X3 doses. Now on Cefdinir per sensitivities for 4 days total BID. (6) Enteritis: Code(s): K52.9 - Noninfective gastroenteritis and colitis, unspecified Status: Acute Assessment and Plan: * GI symptoms improving with no emesis or diarrhea episodes last few days. * Continues to tolerate meals fairly okay but with very poor appetite. * Carafate with meals, pepcid. Changed to PPI after stool for H pylori sent * Antiemetics PRN. * Seen by GI and no further recommendations for now, Colchicine dc'd. * Holding colchicine * C-diff negative. * Continue supportive care. (7) Atrial fibrillation: Code(s): I48.91 - Unspecified atrial fibrillation Status: Acute Assessment and Plan: rate controlled continue Eliquis and Crestor (8) Diabetes mellitus: Qualifiers: Diabetes mellitus complication detail: with diabetic retinopathy Diabetes mellitus complication status: with ophthalmic complications Diabetes mellitus assisted insulin use: without terminal manager use Diabetes mellitus macular edema: without macular edema Diabetes mellitus type: type 2 Diabetic retinopathy severity: with unspecified retinopathy severity Laterality: right Qualified Code(s): E11.319 - Type 2 diabetes mellitus with unspecified diabetic retinopathy without macular edema Code(s): E11.9 - Type 2 diabetes mellitus without complications Status: Chronic Assessment and Plan: HgbA1C is 5.3. * Continue hypoglycemic protocol * Continue SSI * Low-dose lantus added with mod elevated glucose levels. * Continue Diabetic diet * Continue to adjust meds as needed. (9) Anemia: Code(s): D64.9 - Anemia, unspecified Status: Acute Assessment and Plan: Baseline H&H 04/18.7. /.9 on admission in the setting of dehydration. * Occult blood of stool negative. * H&H remains stable so far Hgb maintaining >7. * Anemia likely due to degree of renal disease + possibly hemodilution. * Follow H/H closely. * Pancytopenia, may be viral and improving. * Transfuse for Hgb < 7. (10) Hypertension: Code(s): I10 - Essential (primary) hypertension Status: Chronic Assessment and Plan: Home meds: Hydralazine 50mg TID, Metoprolol 100mg ER, Amlodipine 5mg * Blood pressure well controlled * Continue home antihypertensives (11) Retinal detachment: Code(s): H33.20 - Serous retinal detachment, unspecified eye Status: Chronic Assessment and Plan: patient has right eye detachment, and cataracts * Safety precautions due to low eyesight. * continue home eye drops (12) Pleural effusion: Code(s): J90 - Pleural effusion, not elsewhere classified Status: Chronic Assessment and Plan: stable from earlier this month no SOB Good O2 sats > 92% on room air. (13) Failure to thrive: Status: Acute Assessment and Plan: No s/s of overt malnutrition present. -very poor p.o. intake. * PT/OT evaluate and treat * Seen by restaurant maintenance technician * Daily weights. * Encouraged with meals and nutritional supplement. (14) Hypokalemia: Code(s): E87.6 - Hypokalemia Status: Acute Assessment and Plan: replete as needed --Follow BMP, Mag, phos (15) Pericarditis: Code(s): I31.9 - Disease of pericardium, unspecified Status: Acute Assessment and Plan: Recent pericarditis, started on ibuprofen and colcicine 0.6mg BID and patient reports pain resolved --No NSAIDs for BUTCH/CKD --No colchine for GI symptoms --Started on Prednisone 40mg with a taper --Seen by Cardiology and we'll discuss with Card's on Prednisone taper. -- Repeat echocardiogram with no pericardial effusion. Plan Ortho consulted regarding L. Ankle and L. Prox fib fractures. Conservative management for now and further mgt per ortho, bedrest for now. Time Spent With Patient Time with patient: 15 - 25 minutes Subjective Date/time seen: 09/20/24 15:26 Interval history: Patient sleepy on bedrest and looks to be in no acute distress. Patient admitted with enteritis that is improving and patient's appetite slowly improving. Patient also had a UTI and is currently on oral antibiotics. She had BUTCH that is improving as well with IV fluid hydration and Nephrology saw patient. Patient was working with PT yesterday and had to be lowered to the ground due to lower extremity weakness. She reported LLE pain and imaging showed left proximal fibular fracture and a left ankle fracture. Patient seen by Ortho and awaiting recommendations. Patient will be maintained on bedrest currently. Review of Systems Review of Systems: All systems reviewed & are unremarkable except as noted in HPI and below Exam Narrative: General: Fair appearing, no acute distress, generalized muscle weakness. HEENT: normocephalic, atraumatic. PERRL. Mucous membranes dry. Neck supple without JVD, lymphadenopathy, or bruit. Respiratory: Slight congestion, poor ventilation. Cardiovascular: Regular rate and rhythm, normal S1-S2 upon auscultation. Abdomen: Soft, round, obese. Bowel sounds present to all four quadrants. Extremities: Purpling to Right Foot and Left lower leg, 2+ edema ac. LE, 4+ edema ac. Feet. Neuro: Alert and orientated x 4. PERRLA. Cranial nerves 2-12 intact without focal deficit. Skin: Warm, dry, and intact, purpling right dorsal foot, purpling Left lower leg. Psych: pleasant, cooperative, flat affect. Objective Data Vital Signs Vital Signs: Vital Signs - 24 hr 09/19/24 16:00 09/19/24 16:00 09/19/24 20:00 Temperature 96.9 F L 97.9 F Pulse Rate 72 72 72 Respiratory Rate 18 20 Blood Pressure 131/66 126/64 Pulse Oximetry 96 96 09/19/24 20:00 09/19/24 22:52 09/20/24 00:00 Temperature 97.9 F Pulse Rate 65 72 65 Respiratory Rate 20 Blood Pressure 126/64 Pulse Oximetry 96 09/20/24 04:00 09/20/24 04:00 09/20/24 08:00 Temperature 98.0 F Pulse Rate 79 64 68 Respiratory Rate 16 Blood Pressure 167/81 H Pulse Oximetry 98 09/20/24 08:17 09/20/24 11:57 Temperature 97.4 F L 97.0 F L Pulse Rate 64 68 Respiratory Rate 16 17 Blood Pressure 126/58 L 134/70 Pulse Oximetry 95 98 Intake/Output Intake/Output: Intake & Output 09/17/24 09/18/24 09/19/24 09/20/24 23:59 23:59 23:59 23:59 Intake Total 259 3160 1260 240 Output Total 1050 Balance 2597 3160 210 240 Meds/Results Medications: Active Medications Generic Name Dose Route Start Last Admin Trade Name Freq PRN Reason Stop Dose Admin Acetaminophen 650 mg 09/17/24 20:00 09/20/24 12:30 Acetaminophen 325 Mg Tablet PO 650 mg Q6HR NA[facility]OMI Administration Amlodipine Besylate 5 mg 09/07/24 09:00 09/20/24 07:45 Amlodipine Besylate 5 Mg Tablet PO 5 mg QAM [facility]OMI Administration Apixaban 2.5 mg 09/07/24 09:30 09/20/24 07:45 Apixaban 2.5 Mg Tablet PO 2.5 mg Q12HR NAOHMI Administration Artificial Tears 1 drop 09/07/24 09:35 09/20/24 07:43 Artificial Tears Ophth Soln 15 Ml Bottle RIGHT EYE 1 drop Q12HR NA[facility]OMI Administration Brimonidine Tartrate 1 drop 09/07/24 09:30 09/20/24 07:43 Brimonidine Tartrate 0.2% Op Soln 5 Ml Btl EACH EYE 1 drop Q12HR [facility]OMI Administration Dextrose 12.5 gm 09/07/24 09:15 Dextrose 50% 25 Gm/50 Ml Syringe IV PUSH PRN PRN Hypoglycemia Protocol Dorzolamide HCl 1 drop 09/07/24 09:30 09/20/24 07:43 Dorzolamide Hcl 2% Ophth Drops RIGHT EYE 1 drop Q12HR [facility]OMI Administration Famotidine 20 mg 09/07/24 21:00 09/20/24 07:45 Famotidine 20 Mg/2 Ml Vial IV PUSH 20 mg Q12HR [facility]OMI Administration Glucagon 1 mg 09/07/24 09:15 Glucagon For Inj 1 Mg Vial IM PRN PRN Hypoglycemia Protocol Glucose 15 gm 09/07/24 09:15 Glucose Oral Gel 15 Gm Of Glucse In 37.5 Gm Tube PO PRN PRN Hypoglycemia Protocol Guaifenesin/Dextromethorphan 5 ml 09/18/24 15:30 09/20/24 12:46 Guaifenesin/Dextromethorphan 10 Ml Udc PO 5 ml Q4H PRN Administration Cough Hydralazine HCl 50 mg 09/07/24 13:00 09/20/24 12:52 Hydralazine Hcl 50 Mg Tablet PO 50 mg Q8HR [facility]OMI Administration Dextrose 1,000 mls @ 100 mls/hr 09/07/24 09:15 Dextrose 5% 1,000 Ml IVPB PRN PRN Hypoglycemia Protocol Albumin Human 100 mls @ 60 mls/hr 09/19/24 18:00 09/20/24 12:28 Albutein IVPB Not Given Q6HR [facility] Insulin Aspart 2 - 5 units 09/17/24 08:00 09/20/24 12:29 Insulin Aspart (*Bkc) 100 Units/Ml SUB-Q 2 units TIDWM [facility] Administration Protocol Insulin Glargine 5 units 09/17/24 21:00 09/19/24 20:47 Insulin Glargine (*Bkc) 100 Units/Ml SUB-Q 5 units HS [facility] Administration Loperamide HCl 2 mg 09/08/24 08:12 09/13/24 18:38 Loperamide Hcl 2 Mg Capsule PO 2 mg Q6HR PRN Administration Diarrhea Loratadine 5 mg 09/18/24 15:35 09/20/24 07:45 Loratadine 5 Mg Tablet PO 5 mg QAM [facility] Administration Metoprolol Succinate 100 mg 09/07/24 09:00 09/20/24 07:45 Metoprolol Succinate Ext Rel 100 Mg Tabcr PO 100 mg QAM [facility] Administration Morphine Sulfate 2 mg 09/17/24 19:48 09/18/24 23:24 Morphine Sulfate (*Crx) 2 Mg/Ml Inj IV PUSH 2 mg Q4H PRN Administration Pain Rated 7-10 Naloxone HCl 0.1 mg 09/07/24 08:19 Naloxone Hcl 0.4 Mg/Ml Vial IV PUSH Q2M PRN Opiate Reversal Ondansetron HCl 4 mg 09/07/24 09:15 09/13/24 14:52 Ondansetron Inj 4 Mg/2 Ml Vial IV PUSH 4 mg Q6H PRN Administration Nausea And Vomiting Oxycodone HCl 5 mg 09/17/24 19:48 09/20/24 12:47 Oxycodone Hcl (*Crx) 5 Mg Tab Ir PO 5 mg Q4H PRN Administration Pain Rated 4-6 Oxycodone HCl 10 mg 09/17/24 19:48 09/20/24 07:39 Oxycodone Hcl (*Crx) 5 Mg Tab Ir PO 10 mg Q4H PRN Administration Pain Rated 7-9 Polysaccharide Iron Complex 150 mg 09/07/24 17:00 09/20/24 07:42 Polysaccharide Iron Complex 150 Mg Capsule PO 150 mg BIDWM [facility] Administration Prednisone 40 mg 09/13/24 08:00 09/20/24 07:42 Prednisone 20 Mg Tablet PO 40 mg DAILY@0800 [facility] Administration Pseudoephedrine HCl 30 mg 09/18/24 15:31 09/20/24 07:54 Pseudoephedrine Hcl 30 Mg Tablet PO 30 mg Q4H PRN Administration Congestion Rosuvastatin Calcium 5 mg 09/07/24 09:00 09/20/24 07:45 Rosuvastatin 5 Mg Tablet PO 5 mg QAM [facility] Administration Sodium Bicarbonate 1,300 mg 09/10/24 09:00 09/20/24 12:52 Sodium Bicarbonate Tab 650 Mg Tablet PO 1,300 mg TID [facility] Administration Sucralfate 1,000 mg 09/07/24 11:30 09/20/24 12:29 Sucralfate Susp 100 Mg/Ml 10 Ml Udc PO 1,000 mg ACHS [facility] Administration Timolol Maleate 1 drop 09/07/24 09:35 09/20/24 07:44 Timolol Maleate 0.5% Op Soln 5 Ml Bottle EACH EYE 1 drop Q12HR [facility] Administration Radiology Results: ITS Impressions Abdomen/Pelvis CT 09/07/24 05:37 Impression: Minimal bilateral pleural effusions. Horseshoe kidney. Elbow X-Ray 09/17/24 12:16 IMPRESSION: 1. No fracture. Knee X-Ray 09/17/24 12:17 IMPRESSION: 1. Minimally displaced extra articular fracture of the proximal left fibular diaphysis. Correlate for any associated ankle pain and consider additional radiographs of the more distal tibia and fibula as clinically indicated. Tibia/Fibula X-Ray 09/17/24 15:54 IMPRESSION: 1. Fractures of proximal and distal fibula. 2. Comminuted fracture of distal tibia. Ankle X-Ray 09/17/24 15:55 IMPRESSION: Trimalleolar fracture of the left ankle, as detailed above. Chest X-Ray 09/18/24 13:22 IMPRESSION: 1. Unchanged linear atelectasis/scarring at the bilateral lower lungs. Labs Labs: Laboratory Results - last 24 hr 09/19/24 09/19/24 09/20/24 16:45 20:45 06:35 Sodium 135 L Potassium 4.2 Chloride 106 Carbon Dioxide 23 Anion Gap 6 BUN 62 H Creatinine 2.58 H Estim Creat Clear Calc 26 Estimated GFR 19 L Glucose 222 H POC Capillary Glucose 257 H 238 H Calcium 7.6 L 09/20/24 09/20/24 08:00 11:59 Sodium Potassium Chloride Carbon Dioxide Anion Gap BUN Creatinine Estim Creat Clear Calc Estimated GFR Glucose POC Capillary Glucose 219 H 226 H Calcium Quality VTE Prophylaxis VTE prophylaxis: pharmacologic ordered Hospitalist MIPS Advance Care Plan I have confirmed that the patient's Advanced Care Plan is present, code status is documented, or surrogate decision maker is listed in patient medical record.: Yes Medication Reconciliation I have utilized all available resources to obtain, update and review the patients current medications (includes all prescriptions, OTC, herbals, cannabis, and nutritional supplements).: Yes
--- NOTE | 2024-09-20 16:32 | PM.PNORT ---
Progress Note: A&P Assessment and Plan (1) Closed left ankle fracture: Code(s): S82.892A - Other fracture of left lower leg, initial encounter for closed fracture Status: Acute Assessment and Plan: POST INJURY DAY 3. SHE HAS PAIN AND SWELLING IN THE LOWER ANKLE AND LEG REGION. XRAYS TODAY SHOW LEFT BI MALLEOLAR ANKLE FRACTURE WITH SOME ANTERIOR MEDIAL PLAFOND EXTENSION. WE WILL IMMOBILIZE HER LEFT ANKLE TODAY. SHE HAS FAR TOO MUCH SWELLING AND EDEMA TO BE A SAFE CANDIDATE FOR SURGERY AT THIS TIME. SHE WILL REQUIRE MEDICAL CLEARANCE FOR ANY OPERATIVE PROCEDURE FROM INTERNAL MEDICINE SERVICE. WE WILL CONTINUE TO EVALUATE HER ON A DAILY BASIS FOR SKIN CHANGES. (2) Fracture of left proximal fibula: Code(s): S82.832A - Other fracture of upper and lower end of left fibula, initial encounter for closed fracture Status: Acute Subjective Subjective Date/Time Seen: 09/20/24 16:32 Interval history: PATIENT IS SEEN TODAY C/O LEFT ANKLE AND LEG PAIN. HER CALF IS NOT PAINFUL. SHE DENIES ANY CHEST PAIN. Exam Extrem: Right lower extremity: hip/thigh Details: normal to inspection and normal ROM; no tenderness and no swelling, knee Details: normal to inspection and normal ROM; no tenderness and no swelling, lower leg Details: normal to inspection and palpable cord; no tenderness and no localized swelling, ankle Details: abnormal to inspection, swelling and edema; no tenderness and no ecchymosis and foot Details: toes with normal ROM and edema Location: diffusely; no tenderness Left lower extremity: hip/thigh Details: normal to inspection and normal ROM; no tenderness, no swelling and no crepitus, knee Details: tenderness, swelling, abnormal ROM and knee ligament exam normal, lower leg Details: localized swelling, palpable cord, pitting edema Details: 3+ and ecchymosis; no tenderness, no abrasions and no lacerations, ankle Details: tenderness Location: of the lateral malleolus, of the medial malleolus and anteriorly, swelling Details: diffusely, pitting edema Details: pitting, abnormal ROM, abrasion, ecchymosis and crepitus and foot Details: abnormal to inspection, toes with normal ROM, edema, ecchymosis and motor-sensory exam light-touch normal; no tenderness Other: LEF ANKLE ECCHYMOSIS, 3 +PITTING EDEMA, TENDER MEDIAL AND LATERAL MALLEOLUS. BRUISING WITH NO SKIN BREAKDOWN OR BLISTERING TODAY. CALF IS SOFT NON TENDER NEG HOMANS SIGN Objective Data Vital Signs Vital Signs: Vital Signs - 24 hr 09/19/24 20:00 09/19/24 20:00 09/19/24 22:52 Temperature 36.6 C 36.6 C Pulse Rate 72 65 72 Respiratory Rate 20 20 Blood Pressure 126/64 126/64 Pulse Oximetry 96 96 09/20/24 00:00 09/20/24 04:00 09/20/24 04:00 Temperature 36.7 C Pulse Rate 65 79 64 Respiratory Rate 16 Blood Pressure 167/81 H Pulse Oximetry 98 09/20/24 08:00 09/20/24 08:17 09/20/24 11:57 Temperature 36.3 C L 36.1 C L Pulse Rate 68 64 68 Respiratory Rate 16 17 Blood Pressure 126/58 L 134/70 Pulse Oximetry 95 98 09/20/24 12:00 09/20/24 16:00 Temperature Pulse Rate 65 59 L Respiratory Rate Blood Pressure Pulse Oximetry Intake/Output Intake/Output: Intake & Output 09/17/24 09/18/24 09/19/24 09/20/24 23:59 23:59 23:59 23:59 Intake Total 2597 3160 1260 240 Output Total 1050 Balance 2597 3160 210 240 Meds/Results Medications: Active Medications Generic Name Dose Route Start Last Admin Trade Name Freq PRN Reason Stop Dose Admin Acetaminophen 650 mg 09/17/24 20:00 09/20/24 12:30 Acetaminophen 325 Mg Tablet PO 650 mg Q6HR [facility]I Administration Amlodipine Besylate 5 mg 09/07/24 09:00 09/20/24 07:45 Amlodipine Besylate 5 Mg Tablet PO 5 mg QAM [facility] Administration Apixaban 2.5 mg 09/07/24 09:30 09/20/24 07:45 Apixaban 2.5 Mg Tablet PO 2.5 mg Q12HR [facility] Administration Artificial Tears 1 drop 09/07/24 09:35 09/20/24 07:43 Artificial Tears Ophth Soln 15 Ml Bottle RIGHT EYE 1 drop Q12HR [facility] Administration Brimonidine Tartrate 1 drop 09/07/24 09:30 09/20/24 07:43 Brimonidine Tartrate 0.2% Op Soln 5 Ml Btl EACH EYE 1 drop Q12HR [facility] Administration Dextrose 12.5 gm 09/07/24 09:15 Dextrose 50% 25 Gm/50 Ml Syringe IV PUSH PRN PRN Hypoglycemia Protocol Dorzolamide HCl 1 drop 09/07/24 09:30 09/20/24 07:43 Dorzolamide Hcl 2% Ophth Drops RIGHT EYE 1 drop Q12HR [facility] Administration Famotidine 20 mg 09/07/24 21:00 09/20/24 07:45 Famotidine 20 Mg/2 Ml Vial IV PUSH 20 mg Q12HR [facility] Administration Glucagon 1 mg 09/07/24 09:15 Glucagon For Inj 1 Mg Vial IM PRN PRN Hypoglycemia Protocol Glucose 15 gm 09/07/24 09:15 Glucose Oral Gel 15 Gm Of Glucse In 37.5 Gm Tube PO PRN PRN Hypoglycemia Protocol Guaifenesin/Dextromethorphan 5 ml 09/18/24 15:30 09/20/24 12:46 Guaifenesin/Dextromethorphan 10 Ml Udc PO 5 ml Q4H PRN Administration Cough Hydralazine HCl 50 mg 09/07/24 13:00 09/20/24 12:52 Hydralazine Hcl 50 Mg Tablet PO 50 mg Q8HR [facility] Administration Dextrose 1,000 mls @ 100 mls/hr 09/07/24 09:15 Dextrose 5% 1,000 Ml IVPB PRN PRN Hypoglycemia Protocol Insulin Aspart 2 - 5 units 09/17/24 08:00 09/20/24 12:29 Insulin Aspart (*Bkc) 100 Units/Ml SUB-Q 2 units TIDWM [facility] Administration Protocol Insulin Glargine 5 units 09/17/24 21:00 09/19/24 20:47 Insulin Glargine (*Bkc) 100 Units/Ml SUB-Q 5 units HS [facility] Administration Loperamide HCl 2 mg 09/08/24 08:12 09/13/24 18:38 Loperamide Hcl 2 Mg Capsule PO 2 mg Q6HR PRN Administration Diarrhea Loratadine 5 mg 09/18/24 15:35 09/20/24 07:45 Loratadine 5 Mg Tablet PO 5 mg QAM [facility] Administration Metoprolol Succinate 100 mg 09/07/24 09:00 09/20/24 07:45 Metoprolol Succinate Ext Rel 100 Mg Tabcr PO 100 mg QAM [facility] Administration Morphine Sulfate 2 mg 09/17/24 19:48 09/18/24 23:24 Morphine Sulfate (*Crx) 2 Mg/Ml Inj IV PUSH 2 mg Q4H PRN Administration Pain Rated 7-10 Naloxone HCl 0.1 mg 09/07/24 08:19 Naloxone Hcl 0.4 Mg/Ml Vial IV PUSH Q2M PRN Opiate Reversal Ondansetron HCl 4 mg 09/07/24 09:15 09/13/24 14:52 Ondansetron Inj 4 Mg/2 Ml Vial IV PUSH 4 mg Q6H PRN Administration Nausea And Vomiting Oxycodone HCl 5 mg 09/17/24 19:48 09/20/24 12:47 Oxycodone Hcl (*Crx) 5 Mg Tab Ir PO 5 mg Q4H PRN Administration Pain Rated 4-6 Oxycodone HCl 10 mg 09/17/24 19:48 09/20/24 07:39 Oxycodone Hcl (*Crx) 5 Mg Tab Ir PO 10 mg Q4H PRN Administration Pain Rated 7-9 Polysaccharide Iron Complex 150 mg 09/07/24 17:00 09/20/24 07:42 Polysaccharide Iron Complex 150 Mg Capsule PO 150 mg BIDWM [facility]I Administration Prednisone 40 mg 09/13/24 08:00 09/20/24 07:42 Prednisone 20 Mg Tablet PO 40 mg DAILY@0800 NA[facility]OMI Administration Pseudoephedrine HCl 30 mg 09/18/24 15:31 09/20/24 07:54 Pseudoephedrine Hcl 30 Mg Tablet PO 30 mg Q4H PRN Administration Congestion Rosuvastatin Calcium 5 mg 09/07/24 09:00 09/20/24 07:45 Rosuvastatin 5 Mg Tablet PO 5 mg QAM [facility] Administration Sodium Bicarbonate 1,300 mg 09/10/24 09:00 09/20/24 12:52 Sodium Bicarbonate Tab 650 Mg Tablet PO 1,300 mg TID [facility]I Administration Sucralfate 1,000 mg 09/07/24 11:30 09/20/24 12:29 Sucralfate Susp 100 Mg/Ml 10 Ml Udc PO 1,000 mg ACHS [facility] Administration Timolol Maleate 1 drop 09/07/24 09:35 09/20/24 07:44 Timolol Maleate 0.5% Op Soln 5 Ml Bottle EACH EYE 1 drop Q12HR [facility]I Administration Radiology Results: ITS Impressions Abdomen/Pelvis CT 09/07/24 05:37 Impression: Minimal bilateral pleural effusions. Horseshoe kidney. Elbow X-Ray 09/17/24 12:16 IMPRESSION: 1. No fracture. Knee X-Ray 09/17/24 12:17 IMPRESSION: 1. Minimally displaced extra articular fracture of the proximal left fibular diaphysis. Correlate for any associated ankle pain and consider additional radiographs of the more distal tibia and fibula as clinically indicated. Tibia/Fibula X-Ray 09/17/24 15:54 IMPRESSION: 1. Fractures of proximal and distal fibula. 2. Comminuted fracture of distal tibia. Ankle X-Ray 09/17/24 15:55 IMPRESSION: Trimalleolar fracture of the left ankle, as detailed above. Chest X-Ray 09/18/24 13:22 IMPRESSION: 1. Unchanged linear atelectasis/scarring at the bilateral lower lungs. Labs Labs: Laboratory Results - last 24 hr 09/19/24 09/19/24 09/20/24 16:45 20:45 06:35 Sodium 135 L Potassium 4.2 Chloride 106 Carbon Dioxide 23 Anion Gap 6 BUN 62 H Creatinine 2.58 H Estim Creat Clear Calc 26 Estimated GFR 19 L Glucose 222 H POC Capillary Glucose 257 H 238 H Calcium 7.6 L 09/20/24 09/20/24 08:00 11:59 Sodium Potassium Chloride Carbon Dioxide Anion Gap BUN Creatinine Estim Creat Clear Calc Estimated GFR Glucose POC Capillary Glucose 219 H 226 H Calcium
[2024-09-20 17:06] LABS: Glucose Point of Care 224 mg/dl (65-105)
[2024-09-20] MEDS: MORPHINE SULFATE (*CRX) 2 MG/ML INJ IV PUSH (17:57)
[2024-09-20] MEDS: INSULIN GLARGINE (*BKC) 100 UNITS/ML SUB-Q (21:11)
[2024-09-20 22:08] LABS: Glucose Point of Care 236 mg/dl (65-105)
[2024-09-21] VITALS (25 sets, daily range): BP systolic 128–230; BP diastolic 61–114; PULSE 61–75; RESP 16–20; TEMP 36.1–36.8; O2SAT 95–100
[2024-09-21] MEDS: ACETAMINOPHEN 325 MG TABLET 650 MG PO ×4 (00:15→17:42)
[2024-09-21] MEDS: SUCRALFATE SUSP 100 MG/ML 10 ML UDC 1000 MG PO ×4 (05:53→20:51)
[2024-09-21] MEDS: hydrALAZINE HCL 50 MG TABLET PO ×3 (05:54→20:51)
[2024-09-21 06:31] LABS: Basophils Percent Auto 0.1 % (0.2-1.2); Immature Granulocyte Absolute 0.95 K/mm3 (0.00-0.031); Immature Granulocyte Percent A 4.7 % (0-0.5); Immature Platelet Fraction Pct 5.4 % (0.9-11.2); Lymphocytes Absolute Auto 2.11 K/mm3 (0.9-3.2); Lymphocytes Percent Auto 10.3 % (18.3-44.2); Mean Corpuscular HGB Conc 30.5 g/dl (32-36); Mean Corpuscular Hemoglobin 29.5 pg (26-34); Mean Platelet Volume 12.7 fl (7.4-10.4); Monocytes Absolute Auto 1.4 K/mm3 (0.1-0.6); Neutrophils Absolute Auto 15.9 K/mm3 (1.3-6.7); Neutrophils Percent Auto 77.9 % (45.5-73.1); Nucleated Red Blood Cells Perc 1.1 % (0.0-0.2); Platelet Count Result 120 k/mm3 (150-375); Red Blood Count 1.32 M/mm3 (4.2-5.4); Red Cell Distribution Width 20.7 % (11.5-14.5); White Blood Count 20.4 K/mm3 (4.5-10.0)
[2024-09-21 06:41] LABS: Hematocrit 12.8 % (37.0-47.0); Hemoglobin 3.9 g/dL (12.0-15.0)
[2024-09-21 07:03] LABS: Anion Gap 7 mmol/L (4-12); Blood Urea Nitrogen 67 mg/dL (7-17); Calcium 7.2 mg/dL (8.4-10.2); Carbon Dioxide 22 mmol/L (22-30); Chloride 105 mmol/L (98-107); Estimated CRCL calculation 24 ml/min; Estimated Glomerular Filt Rate 17; Glucose 214 mg/dL (65-110); Potassium 4.3 mmol/L (3.4-5.0); Sodium 134 mmol/L (137-145)
[2024-09-21 07:07] LABS: Hematocrit 12.4 % (37.0-47.0); Hemoglobin 3.8 g/dL (12.0-15.0)
[2024-09-21 08:22] LABS: Glucose Point of Care 211 mg/dl (65-105)
--- NOTE | 2024-09-21 08:43 | PM.PNORT ---
Progress Note: A&P Assessment and Plan (1) Closed left ankle fracture: Qualifiers: Encounter type: initial encounter Qualified Code(s): S82.892A - Other fracture of left lower leg, initial encounter for closed fracture Code(s): S82.892A - Other fracture of left lower leg, initial encounter for closed fracture Status: Acute Assessment and Plan: 4 days s/p fall while working with PT. Initial radiographs revealed a left proximal fibular fracture. Follow up left tib/fib and ankle radiographs reveal a left bimalleolar ankle fracture with anterior medial plafond extension. Patient is currently a poor candidate for surgical fixation given low Hgb and overall medical condition, including 4+ pitting edema. Will treat nonoperatively in the interim with supportive care and immobilization in a fracture boot of the E. Will continue to monitor and further consider surgical intervention pending medical optimization. (2) Fracture of left proximal fibula: Code(s): S82.832A - Other fracture of upper and lower end of left fibula, initial encounter for closed fracture Status: Acute (3) Swelling of right foot: Code(s): M79.89 - Other specified soft tissue disorders Status: Acute Assessment and Plan: New onset right foot swelling/ecchymosis/pain. Concern for possible fracture given osteopenia and recent fall. Will obtain right foot radiographs for futher evaluation. (4) Anemia: Code(s): D64.9 - Anemia, unspecified Status: Acute Assessment and Plan: Current HgB 3.8. Awaiting HgB transfusion. Plan Reviewed history, exam, radiographs and current labs with attending MD and covering surgeon, Dr. Shelley, who agrees with current plan as indicated above. No further recommendations from Dr. Shelley at this time. Subjective Subjective Date/Time Seen: 09/21/24 08:43 Interval history: Patient resting in bed. Complaints of left ankle/leg pain and new onset right foot ecchymosis. Low HgB today. Awaiting transfusion. Review of Systems Review of Systems: All systems reviewed & are unremarkable except as noted in HPI and below Exam Const: General: cooperative and ill appearing chronically Orientation/consciousness: patient oriented x3 HENMT: Head: normal to inspection Extrem: Right upper extremity: full ROM and elbow/forearm normal to inspection, tenderness and normal ROM Left upper extremity: normal to inspection and full ROM Right lower extremity: normal to inspection, full ROM, knee (pitting edema ) Details: normal to inspection and normal ROM; no tenderness, lower leg (pitting edema ), ankle (pitting edema ) Details: no tenderness and foot (pitting edema ) Details: tenderness (forefoot ), edema (4+ pitting edema ), ecchymosis and crepitus Left lower extremity: knee Details: tenderness Location: of the proximal fibula and abnormal ROM Details: pain with active ROM, lower leg (edema ) Details: tenderness Location: of the proximal fibula, of the midshaft tibia and of the distal tibia, ankle (edema ) Details: abnormal to inspection, tenderness Location: of the lateral malleolus and of the medial malleolus and abnormal ROM Details: pain with active ROM Details: with plantar flexion and with dorsiflexion; no warmth, no abrasions and no lacerations and foot (edema ) Details: tenderness, toes with normal ROM and vascular exam Details: dorsalis pedis pulse present Objective Data Vital Signs Vital Signs: Vital Signs - 24 hr 09/20/24 11:57 09/20/24 12:00 09/20/24 16:00 Temperature 36.1 C L Pulse Rate 68 65 59 L Respiratory Rate 17 Blood Pressure 134/70 Pulse Oximetry 98 09/20/24 16:29 09/20/24 20:00 09/21/24 00:00 Temperature 36.7 C 36.2 C L 36.6 C Pulse Rate 66 68 73 Respiratory Rate 16 18 18 Blood Pressure 133/55 L 146/65 H 128/61 Pulse Oximetry 100 100 97 09/21/24 00:00 09/21/24 04:00 09/21/24 04:00 Temperature 36.4 C L Pulse Rate 61 75 67 Respiratory Rate 16 Blood Pressure 136/86 Pulse Oximetry 97 09/21/24 06:50 09/21/24 06:56 09/21/24 08:00 Temperature 36.6 C 36.1 C L Pulse Rate 73 63 64 Respiratory Rate 18 16 Blood Pressure 136/65 164/74 H Pulse Oximetry 98 97 Intake/Output Intake/Output: Intake & Output 09/18/24 09/19/24 09/20/24 09/21/24 23:59 23:59 23:59 23:59 Intake Total 3160 1260 590 Output Total 1050 100 Balance 3160 210 490 Meds/Results Medications: Active Medications Generic Name Dose Route Start Last Admin Trade Name Freq PRN Reason Stop Dose Admin Acetaminophen 650 mg 09/17/24 20:00 09/21/24 05:54 Acetaminophen 325 Mg Tablet PO 650 mg Q6HR NAHOMI Administration Amlodipine Besylate 5 mg 09/07/24 09:00 09/20/24 07:45 Amlodipine Besylate 5 Mg Tablet PO 5 mg QAM NAHOMI Administration Apixaban 2.5 mg 09/07/24 09:30 09/20/24 21:09 Apixaban 2.5 Mg Tablet PO 2.5 mg Q12HR NAHOMI Administration Artificial Tears 1 drop 09/07/24 09:35 09/20/24 21:10 Artificial Tears Ophth Soln 15 Ml Bottle RIGHT EYE 1 drop Q12HR NAHOMI Administration Brimonidine Tartrate 1 drop 09/07/24 09:30 09/20/24 21:10 Brimonidine Tartrate 0.2% Op Soln 5 Ml Btl EACH EYE 1 drop Q12HR NAHOMI Administration Dextrose 12.5 gm 09/07/24 09:15 Dextrose 50% 25 Gm/50 Ml Syringe IV PUSH PRN PRN Hypoglycemia Protocol Dorzolamide HCl 1 drop 09/07/24 09:30 09/20/24 21:10 Dorzolamide Hcl 2% Ophth Drops RIGHT EYE 1 drop Q12HR NAHOMI Administration Famotidine 20 mg 09/07/24 21:00 09/20/24 21:08 Famotidine 20 Mg/2 Ml Vial IV PUSH 20 mg Q12HR NAHOMI Administration Glucagon 1 mg 09/07/24 09:15 Glucagon For Inj 1 Mg Vial IM PRN PRN Hypoglycemia Protocol Glucose 15 gm 09/07/24 09:15 Glucose Oral Gel 15 Gm Of Glucse In 37.5 Gm Tube PO PRN PRN Hypoglycemia Protocol Guaifenesin/Dextromethorphan 5 ml 09/18/24 15:30 09/20/24 17:51 Guaifenesin/Dextromethorphan 10 Ml Udc PO 5 ml Q4H PRN Administration Cough Hydralazine HCl 50 mg 09/07/24 13:00 09/21/24 05:54 Hydralazine Hcl 50 Mg Tablet PO 50 mg Q8HR NAHOMI Administration Dextrose 1,000 mls @ 100 mls/hr 09/07/24 09:15 Dextrose 5% 1,000 Ml IVPB PRN PRN Hypoglycemia Protocol Sodium Chloride 250 mls @ 30 mls/hr 09/21/24 07:58 Normal Saline Iv IV CONT 09/21/24 16:17 .Q8H20M STA Insulin Aspart 2 - 5 units 09/17/24 08:00 09/20/24 17:48 Insulin Aspart (*Bkc) 100 Units/Ml SUB-Q 2 units TIDWM NAHOMI Administration Protocol Insulin Glargine 5 units 09/17/24 21:00 09/20/24 21:11 Insulin Glargine (*Bkc) 100 Units/Ml SUB-Q 5 units HS NAHOMI Administration Loperamide HCl 2 mg 09/08/24 08:12 09/13/24 18:38 Loperamide Hcl 2 Mg Capsule PO 2 mg Q6HR PRN Administration Diarrhea Loratadine 5 mg 09/18/24 15:35 09/20/24 07:45 Loratadine 5 Mg Tablet PO 5 mg QAM NAHOMI Administration Metoprolol Succinate 100 mg 09/07/24 09:00 09/20/24 07:45 Metoprolol Succinate Ext Rel 100 Mg Tabcr PO 100 mg QAM NAHOMI Administration Morphine Sulfate 2 mg 09/17/24 19:48 09/20/24 17:57 Morphine Sulfate (*Crx) 2 Mg/Ml Inj IV PUSH 2 mg Q4H PRN Administration Pain Rated 7-10 Naloxone HCl 0.1 mg 09/07/24 08:19 Naloxone Hcl 0.4 Mg/Ml Vial IV PUSH Q2M PRN Opiate Reversal Ondansetron HCl 4 mg 09/07/24 09:15 09/13/24 14:52 Ondansetron Inj 4 Mg/2 Ml Vial IV PUSH 4 mg Q6H PRN Administration Nausea And Vomiting Oxycodone HCl 5 mg 09/17/24 19:48 09/20/24 12:47 Oxycodone Hcl (*Crx) 5 Mg Tab Ir PO 5 mg Q4H PRN Administration Pain Rated 4-6 Oxycodone HCl 10 mg 09/17/24 19:48 09/20/24 07:39 Oxycodone Hcl (*Crx) 5 Mg Tab Ir PO 10 mg Q4H PRN Administration Pain Rated 7-9 Polysaccharide Iron Complex 150 mg 09/07/24 17:00 09/20/24 17:54 Polysaccharide Iron Complex 150 Mg Capsule PO 150 mg BIDWM NAHOMI Administration Prednisone 40 mg 09/13/24 08:00 09/20/24 07:42 Prednisone 20 Mg Tablet PO 40 mg DAILY@0800 NAHOMI Administration Pseudoephedrine HCl 30 mg 09/18/24 15:31 09/20/24 07:54 Pseudoephedrine Hcl 30 Mg Tablet PO 30 mg Q4H PRN Administration Congestion Rosuvastatin Calcium 5 mg 09/07/24 09:00 09/20/24 07:45 Rosuvastatin 5 Mg Tablet PO 5 mg QAM NAHOMI Administration Sodium Bicarbonate 1,300 mg 09/10/24 09:00 09/20/24 17:48 Sodium Bicarbonate Tab 650 Mg Tablet PO 1,300 mg TID NAHOMI Administration Sucralfate 1,000 mg 09/07/24 11:30 09/21/24 05:53 Sucralfate Susp 100 Mg/Ml 10 Ml Udc PO 1,000 mg ACHS NAHOMI Administration Timolol Maleate 1 drop 09/07/24 09:35 09/20/24 21:10 Timolol Maleate 0.5% Op Soln 5 Ml Bottle EACH EYE 1 drop Q12HR NAOHMI Administration Radiology Results: ITS Impressions Abdomen/Pelvis CT 09/07/24 05:37 Impression: Minimal bilateral pleural effusions. Horseshoe kidney. Elbow X-Ray 09/17/24 12:16 IMPRESSION: 1. No fracture. Knee X-Ray 09/17/24 12:17 IMPRESSION: 1. Minimally displaced extra articular fracture of the proximal left fibular diaphysis. Correlate for any associated ankle pain and consider additional radiographs of the more distal tibia and fibula as clinically indicated. Tibia/Fibula X-Ray 09/17/24 15:54 IMPRESSION: 1. Fractures of proximal and distal fibula. 2. Comminuted fracture of distal tibia. Ankle X-Ray 09/17/24 15:55 IMPRESSION: Trimalleolar fracture of the left ankle, as detailed above. Chest X-Ray 09/18/24 13:22 IMPRESSION: 1. Unchanged linear atelectasis/scarring at the bilateral lower lungs. Labs Labs: Laboratory Results - last 24 hr 09/20/24 09/20/24 09/20/24 11:59 17:00 20:30 WBC RBC Hgb Hct MCV MCH MCHC RDW Plt Count MPV Immature Gran % (Auto) Neut % (Auto) Lymph % (Auto) [place] % (Auto) Eos % (Auto) Baso % (Auto) Lymph # (Auto) [place] # (Auto) Eos # (Auto) Baso # (Auto) Abs Immat Gran (auto) Absolute Neuts (auto) Absolute Nucleated RBC Nucleated RBC % % Immature Plt Fraction Sodium Potassium Chloride Carbon Dioxide Anion Gap BUN Creatinine Estim Creat Clear Calc Estimated GFR Glucose POC Capillary Glucose 226 H 224 H 236 H Calcium Blood Type Crossmatch 09/21/24 09/21/24 09/21/24 06:06 06:57 07:43 WBC 20.4 H RBC 1.32 L Hgb 3.9 L* D 3.8 L* Hct 12.8 L* 12.4 L* MCV 97.0 D MCH 29.5 D MCHC 30.5 L RDW 20.7 H Plt Count 120 L MPV 12.7 H Immature Gran % (Auto) 4.7 H Neut % (Auto) 77.9 H Lymph % (Auto) 10.3 L [place] % (Auto) 7.0 Eos % (Auto) 0.0 Baso % (Auto) 0.1 L Lymph # (Auto) 2.11 [place] # (Auto) 1.4 H Eos # (Auto) 0.0 Baso # (Auto) 0.0 Abs Immat Gran (auto) 0.95 H Absolute Neuts (auto) 15.9 H Absolute Nucleated RBC 0.230 H Nucleated RBC % 1.1 H % Immature Plt Fraction 5.4 Sodium 134 L Potassium 4.3 Chloride 105 Carbon Dioxide 22 Anion Gap 7 BUN 67 H Creatinine 2.77 H Estim Creat Clear Calc 24 Estimated GFR 17 L Glucose 214 H POC Capillary Glucose Calcium 7.2 L Blood Type B Positive Crossmatch See Detail 09/21/24 07:55 WBC RBC Hgb Hct MCV MCH MCHC RDW Plt Count MPV Immature Gran % (Auto) Neut % (Auto) Lymph % (Auto) [place] % (Auto) Eos % (Auto) Baso % (Auto) Lymph # (Auto) [place] # (Auto) Eos # (Auto) Baso # (Auto) Abs Immat Gran (auto) Absolute Neuts (auto) Absolute Nucleated RBC Nucleated RBC % % Immature Plt Fraction Sodium Potassium Chloride Carbon Dioxide Anion Gap BUN Creatinine Estim Creat Clear Calc Estimated GFR Glucose POC Capillary Glucose 211 H Calcium Blood Type Crossmatch
[2024-09-21] MEDS: amLODIPine BESYLATE 5 MG TABLET PO (09:42)
[2024-09-21] MEDS: SODIUM BICARBONATE TAB 650 MG TABLET 1300 MG PO ×3 (09:42→17:41)
[2024-09-21] MEDS: LORATADINE 5 MG TABLET PO (09:42)
[2024-09-21] MEDS: METOPROLOL SUCCINATE EXT REL 100 MG TABCR PO (09:43)
[2024-09-21] MEDS: POLYSACCHARIDE IRON COMPLEX 150 MG CAPSULE PO ×2 (09:43→17:42)
[2024-09-21] MEDS: ROSUVASTATIN 5 MG TABLET PO (09:43)
[2024-09-21] MEDS: predniSONE 20 MG TABLET 40 MG PO (09:43)
[2024-09-21] MEDS: BRIMONIDINE TARTRATE 0.2% OP SOLN 5 ML BTL 1 DROP EACH EYE ×2 (09:44→22:35)
[2024-09-21] MEDS: DORZOLAMIDE HCL 2% OPHTH DROPS 1 DROP RIGHT EYE ×2 (09:44→22:35)
[2024-09-21] MEDS: INSULIN ASPART (*BKC) 100 UNITS/ML SUB-Q ×3 (09:44→17:43)
[2024-09-21] MEDS: TIMOLOL MALEATE 0.5% OP SOLN 5 ML BOTTLE 1 DROP EACH EYE ×2 (09:44→22:35)
[2024-09-21] MEDS: ARTIFICIAL TEARS OPHTH SOLN 15 ML BOTTLE 1 DROP RIGHT EYE ×2 (09:45→22:35)
--- NOTE | 2024-09-21 09:55 | PCPTNOTE ---
attempted PT re-eval d/t change in WB status and acute fracture, per RN pt's hemoglobin is in the 3's and is getting 4 units of blood today, not appropriate for re-eval at this time, will follow
--- NOTE | 2024-09-21 10:25 | P.PNIM_ITS ---
Progress Note: A&P Assessment and Plan (1) Fall from ground level: Code(s): W18.30XA - Fall on same level, unspecified, initial encounter Status: Acute Assessment and Plan: - Likely mechanical due to generalized muscle weakness. - Slid down to the floor with PT in room. -continue PT/OT treatment with Ortho precautions. -currently on bedrest. -will likely need SNF/rehab placement. - Supportive care for now. -Seen by ortho and currently placed on immobilizer fracture boot. -Currently not a candidate for surgery. -Surgical intervention to be considered when her overall medical condition improves. (2) Fracture of left proximal fibula: Code(s): S82.832A - Other fracture of upper and lower end of left fibula, initial encounter for closed fracture Status: Acute Assessment and Plan: - Related to # 1. - XR Tib/Fib 2VW: 1. Fractures of proximal and distal fibula. - Seen by Ortho and currently not a candidate for surgery. -surgical intervention to be considered with improved medical condition. -immobilizer boot placed per Ortho. -pain meds p.r.n.. -supportive care. -PT/OT with ortho restrictions. (3) Anemia: Code(s): D64.9 - Anemia, unspecified Status: Acute Assessment and Plan: Baseline H&H 04/18.7. 06/24.9 on admission in the setting of dehydration. * Hgb this AM 3.8 * Schedule for 4 units PRBC's transfusion today. * Occult blood of stool negative. * Anemia likely due to degree of renal disease + possibly hemodilution +/vs other. * Patient on apixaban for AFib. * Continue to follow H/H closely. * Transfuse for Hgb < 7. * Continue p.o. iron supplementation. (4) Anemia requiring transfusions: Code(s): D64.9 - Anemia, unspecified Status: Acute Assessment and Plan: -Mgt as # 3. -schedule for 4 units PRBC's transfusion today. -continue to monitor H/H closely and transfuse forHgb <7. (5) Closed left ankle fracture: Qualifiers: Encounter type: initial encounter Qualified Code(s): S82.892A - Other fracture of left lower leg, initial encounter for closed fracture Code(s): S82.892A - Other fracture of left lower leg, initial encounter for closed fracture Status: Acute Assessment and Plan: - Related to # 1. - XR L. Foot 2VW: 1. Fractures of proximal and distal fibula. 2. Comminuted fracture of distal tibia. -continue to maintain bedrest for now. -immobilizer boot to LLE per Ortho. -continue supportive care with pain meds p.r.n.. -maintain fall precautions. -PT/OT with Ortho restrictions. -Ortho to consider surgical intervention when medically stable. (6) BUTCH (acute kidney injury): Code(s): N17.9 - Acute kidney failure, unspecified Status: Acute Assessment and Plan: CKD stage 4. Creatinine 4.21 on admission, improved with fluids. Complicated by anemia. * Possibly affected by anemia. * Creatinine slowly trending up; 2.5>2.45>>2.77 * Seen by Nephrology but no recent f/u from nephro. * Consider re-consulting nephro for worsening renal function. * Albumin previously ordered to assist with edema but pt refused. * continue sodium bicarb tabs * IVF currently off due to significant LE edema. * Repleting mag and phos as needed. * Continue to monitor on telemetry (7) Urinary tract infection: Code(s): N39.0 - Urinary tract infection, site not specified Status: Inactive Assessment and Plan: UA on 09/07/2024- negativefor acute UTI, repeat on 09/13/2024 with 2+ leukocyte esterase Treated with IV Rocephin and Cefdinir with abx therapy completed. (8) Enteritis: Code(s): K52.9 - Noninfective gastroenteritis and colitis, unspecified Status: Acute Assessment and Plan: * GI symptoms improving with no emesis or diarrhea episodes last few days. * Continues to tolerate meals fairly but with very poor appetite. * Departmental Shipping Clerk consulted. * Carafate with meals, pepcid. Changed to PPI after stool for H pylori sent * Antiemetics PRN. * Seen by GI and no further recommendations for now, Colchicine dc'd. * Holding colchicine * C-diff negative. * Continue supportive care. (9) Atrial fibrillation: Code(s): I48.91 - Unspecified atrial fibrillation Status: Acute Assessment and Plan: rate controlled continue Eliquis and Crestor (10) Diabetes mellitus: Qualifiers: Diabetes mellitus complication detail: with diabetic retinopathy Diabetes mellitus complication status: with ophthalmic complications Diabetes mellitus chcf insulin use: without manager terminal use Diabetes mellitus macular edema: without macular edema Diabetes mellitus type: type 2 Diabetic retinopathy severity: with unspecified retinopathy severity Laterality: right Qualified Code(s): E11.319 - Type 2 diabetes mellitus with unspecified diabetic retinopathy without macular edema Code(s): E11.9 - Type 2 diabetes mellitus without complications Status: Chronic Assessment and Plan: HgbA1C is 5.3. * Continue hypoglycemic protocol * Continue SSI * Low-dose lantus added with mod elevated glucose levels. * Continue Diabetic diet * Continue to adjust meds as needed. (11) Hypertension: Code(s): I10 - Essential (primary) hypertension Status: Chronic Assessment and Plan: Home meds: Hydralazine 50mg TID, Metoprolol 100mg ER, Amlodipine 5mg * Blood pressure well controlled * Continue home antihypertensives (12) Failure to thrive: Status: Acute Assessment and Plan: No s/s of overt malnutrition present. -very poor p.o. intake. * PT/OT evaluate and treat * ginseng farmer re consulted. * Daily weights. * Encouraged with meals and nutritional supplement. (13) Pericarditis: Code(s): I31.9 - Disease of pericardium, unspecified Status: Acute Assessment and Plan: Recent pericarditis, started on ibuprofen and colcicine 0.6mg BID and patient reports pain resolved --No NSAIDs for BUTCH/CKD --No colchine for GI symptoms --Started on Prednisone 40mg with a taper --Seen by Cardiology and we'll discuss with Card's on Prednisone taper. -- Repeat echocardiogram with no pericardial effusion. (14) Generalized muscle weakness: Code(s): M62.81 - Muscle weakness (generalized) Status: Acute Assessment and Plan: -PT/OT eval and treatment with Ortho restrictions. -fall precautions. Plan Anemia requiring transfusion today. Continue to monitor hemoglobin closely and transfuse for Hgb <7. Seen by Ortho and currently not a surgical candidate, surgery to be considered later when medically stable. Immobilizer boot to LLE placed by Ortho. Continue PT/OT with water restrictions, but patient not very motivated for anything. Time Spent With Patient Time with patient: 25 - 35 minutes Subjective Date/time seen: 09/21/24 10:15 Patient on bedrest states she is still coughing. States feeling weak and tired. Interval history: Patient resting in bed. Patient initially admitted for BUTCH and gastroenteritis. Prolonged hospitalization led to patient increased generalized muscle weakness and patient was working with PT when her legs became weak and she slid to the floor thereafter started complaining of left leg and right leg pain. Imaging revealed left ankle fracture and left proximal fibular fracture. Patient has been seen by Ortho and is currently on brace to his left lower extremity. Patient also has chronic anemia possibly from CKD and his hemoglobin this a.m. was 3.8 and patient awaiting blood transfusion. Review of Systems Review of Systems: All systems reviewed & are unremarkable except as noted in HPI and below Exam Narrative: General: Fair appearing, generalized muscle weakness. HEENT: normocephalic, atraumatic. PERRL. Mucous membranes dry. Neck supple without JVD, lymphadenopathy, or bruit. Respiratory: Per respiratory effort, slight congestion with weak cough. Not motivated to use IS. Cardiovascular: Regular rate and rhythm, normal S1-S2. Abdomen: Soft, round, obese. Bowel sounds present to all four quadrants. Extremities: Ecchymosis to Right Foot and Left lower leg, 2+ edema ac. LE, 4+ edema ac. Feet. Neuro: Alert and orientated x 4. PERRLA. Cranial nerves 2-12 intact without focal deficit. Skin: Warm, dry, and intact, ecchymosis to right dorsal foot, ecchymosis to Left lower leg. Psych: Withdrawn but cooperative with a flat affect. Objective Data Vital Signs Vital Signs: Vital Signs - 24 hr 09/20/24 11:57 09/20/24 12:00 09/20/24 16:00 Temperature 97.0 F L Pulse Rate 68 65 59 L Respiratory Rate 17 Blood Pressure 134/70 Pulse Oximetry 98 09/20/24 16:29 09/20/24 20:00 09/21/24 00:00 Temperature 98.1 F 97.2 F L 97.9 F Pulse Rate 66 68 73 Respiratory Rate 16 18 18 Blood Pressure 133/55 L 146/65 H 128/61 Pulse Oximetry 100 100 97 09/21/24 00:00 09/21/24 04:00 09/21/24 04:00 Temperature 97.5 F L Pulse Rate 61 75 67 Respiratory Rate 16 Blood Pressure 136/86 Pulse Oximetry 97 09/21/24 06:50 09/21/24 06:56 09/21/24 08:00 Temperature 97.8 F 97.0 F L Pulse Rate 73 63 64 Respiratory Rate 18 16 Blood Pressure 136/65 164/74 H Pulse Oximetry 98 97 09/21/24 09:42 09/21/24 09:43 09/21/24 10:00 Temperature 97.0 F L 97.8 F Pulse Rate 68 68 63 Respiratory Rate 16 20 Blood Pressure 149/71 H 142/66 H Pulse Oximetry 98 97 Intake/Output Intake/Output: Intake & Output 09/18/24 09/19/24 09/20/24 09/21/24 23:59 23:59 23:59 23:59 Intake Total 3160 1260 590 240 Output Total 1050 100 Balance 3160 210 490 240 Meds/Results Medications: Active Medications Generic Name Dose Route Start Last Admin Trade Name Freq PRN Reason Stop Dose Admin Acetaminophen 650 mg 09/17/24 20:00 09/21/24 05:54 Acetaminophen 325 Mg Tablet PO 650 mg Q6HR NAHOMI Administration Amlodipine Besylate 5 mg 09/07/24 09:00 09/21/24 09:42 Amlodipine Besylate 5 Mg Tablet PO 5 mg QAM NAHOMI Administration Apixaban 2.5 mg 09/07/24 09:30 09/20/24 21:09 Apixaban 2.5 Mg Tablet PO 2.5 mg Q12HR NAHOMI Administration Artificial Tears 1 drop 09/07/24 09:35 09/21/24 09:45 Artificial Tears Ophth Soln 15 Ml Bottle RIGHT EYE 1 drop Q12HR NAHOMI Administration Brimonidine Tartrate 1 drop 09/07/24 09:30 09/21/24 09:44 Brimonidine Tartrate 0.2% Op Soln 5 Ml Btl EACH EYE 1 drop Q12HR NAHOMI Administration Dextrose 12.5 gm 09/07/24 09:15 Dextrose 50% 25 Gm/50 Ml Syringe IV PUSH PRN PRN Hypoglycemia Protocol Dorzolamide HCl 1 drop 09/07/24 09:30 09/21/24 09:44 Dorzolamide Hcl 2% Ophth Drops RIGHT EYE 1 drop Q12HR NAHOMI Administration Famotidine 20 mg 09/07/24 21:00 09/20/24 21:08 Famotidine 20 Mg/2 Ml Vial IV PUSH 20 mg Q12HR NAHOMI Administration Glucagon 1 mg 09/07/24 09:15 Glucagon For Inj 1 Mg Vial IM PRN PRN Hypoglycemia Protocol Glucose 15 gm 09/07/24 09:15 Glucose Oral Gel 15 Gm Of Glucse In 37.5 Gm Tube PO PRN PRN Hypoglycemia Protocol Guaifenesin/Dextromethorphan 5 ml 09/18/24 15:30 09/20/24 17:51 Guaifenesin/Dextromethorphan 10 Ml Udc PO 5 ml Q4H PRN Administration Cough Hydralazine HCl 50 mg 09/07/24 13:00 09/21/24 05:54 Hydralazine Hcl 50 Mg Tablet PO 50 mg Q8HR NAHOMI Administration Dextrose 1,000 mls @ 100 mls/hr 09/07/24 09:15 Dextrose 5% 1,000 Ml IVPB PRN PRN Hypoglycemia Protocol Sodium Chloride 250 mls @ 30 mls/hr 09/21/24 07:58 Normal Saline Iv IV CONT 09/21/24 16:17 .Q8H20M STA Insulin Aspart 2 - 5 units 09/17/24 08:00 09/21/24 09:44 Insulin Aspart (*Bkc) 100 Units/Ml SUB-Q 2 units TIDWM NAHOMI Administration Protocol Insulin Glargine 5 units 09/17/24 21:00 09/20/24 21:11 Insulin Glargine (*Bkc) 100 Units/Ml SUB-Q 5 units HS NAHOMI Administration Loperamide HCl 2 mg 09/08/24 08:12 09/13/24 18:38 Loperamide Hcl 2 Mg Capsule PO 2 mg Q6HR PRN Administration Diarrhea Loratadine 5 mg 09/18/24 15:35 09/21/24 09:42 Loratadine 5 Mg Tablet PO 5 mg QAM NAHOMI Administration Metoprolol Succinate 100 mg 09/07/24 09:00 09/21/24 09:43 Metoprolol Succinate Ext Rel 100 Mg Tabcr PO 100 mg QAM NAHOMI Administration Morphine Sulfate 2 mg 09/17/24 19:48 09/20/24 17:57 Morphine Sulfate (*Crx) 2 Mg/Ml Inj IV PUSH 2 mg Q4H PRN Administration Pain Rated 7-10 Naloxone HCl 0.1 mg 09/07/24 08:19 Naloxone Hcl 0.4 Mg/Ml Vial IV PUSH Q2M PRN Opiate Reversal Ondansetron HCl 4 mg 09/07/24 09:15 09/13/24 14:52 Ondansetron Inj 4 Mg/2 Ml Vial IV PUSH 4 mg Q6H PRN Administration Nausea And Vomiting Oxycodone HCl 5 mg 09/17/24 19:48 09/20/24 12:47 Oxycodone Hcl (*Crx) 5 Mg Tab Ir PO 5 mg Q4H PRN Administration Pain Rated 4-6 Oxycodone HCl 10 mg 09/17/24 19:48 09/20/24 07:39 Oxycodone Hcl (*Crx) 5 Mg Tab Ir PO 10 mg Q4H PRN Administration Pain Rated 7-9 Polysaccharide Iron Complex 150 mg 09/07/24 17:00 09/21/24 09:43 Polysaccharide Iron Complex 150 Mg Capsule PO 150 mg BIDWM NAHOMI Administration Prednisone 40 mg 09/13/24 08:00 09/21/24 09:43 Prednisone 20 Mg Tablet PO 40 mg DAILY@0800 NAHOMI Administration Pseudoephedrine HCl 30 mg 09/18/24 15:31 09/20/24 07:54 Pseudoephedrine Hcl 30 Mg Tablet PO 30 mg Q4H PRN Administration Congestion Rosuvastatin Calcium 5 mg 09/07/24 09:00 09/21/24 09:43 Rosuvastatin 5 Mg Tablet PO 5 mg QAM NAHOMI Administration Sodium Bicarbonate 1,300 mg 09/10/24 09:00 09/21/24 09:42 Sodium Bicarbonate Tab 650 Mg Tablet PO 1,300 mg TID NAHOMI Administration Sucralfate 1,000 mg 09/07/24 11:30 09/21/24 05:53 Sucralfate Susp 100 Mg/Ml 10 Ml Udc PO 1,000 mg ACHS NAHOMI Administration Timolol Maleate 1 drop 09/07/24 09:35 09/21/24 09:44 Timolol Maleate 0.5% Op Soln 5 Ml Bottle EACH EYE 1 drop Q12HR NAHOMI Administration Radiology Results: ITS Impressions Abdomen/Pelvis CT 09/07/24 05:37 Impression: Minimal bilateral pleural effusions. Horseshoe kidney. Elbow X-Ray 09/17/24 12:16 IMPRESSION: 1. No fracture. Knee X-Ray 09/17/24 12:17 IMPRESSION: 1. Minimally displaced extra articular fracture of the proximal left fibular diaphysis. Correlate for any associated ankle pain and consider additional radiographs of the more distal tibia and fibula as clinically indicated. Tibia/Fibula X-Ray 09/17/24 15:54 IMPRESSION: 1. Fractures of proximal and distal fibula. 2. Comminuted fracture of distal tibia. Ankle X-Ray 09/17/24 15:55 IMPRESSION: Trimalleolar fracture of the left ankle, as detailed above. Chest X-Ray 09/18/24 13:22 IMPRESSION: 1. Unchanged linear atelectasis/scarring at the bilateral lower lungs. Labs Labs: Laboratory Results - last 24 hr 09/20/24 09/20/24 09/20/24 11:59 17:00 20:30 WBC RBC Hgb Hct MCV MCH MCHC RDW Plt Count MPV Immature Gran % (Auto) Neut % (Auto) Lymph % (Auto) [place] % (Auto) Eos % (Auto) Baso % (Auto) Lymph # (Auto) [place] # (Auto) Eos # (Auto) Baso # (Auto) Abs Immat Gran (auto) Absolute Neuts (auto) Absolute Nucleated RBC Nucleated RBC % % Immature Plt Fraction Sodium Potassium Chloride Carbon Dioxide Anion Gap BUN Creatinine Estim Creat Clear Calc Estimated GFR Glucose POC Capillary Glucose 226 H 224 H 236 H Calcium Blood Type Antibody Screen Crossmatch 09/21/24 09/21/24 09/21/24 06:06 06:57 07:43 WBC 20.4 H RBC 1.32 L Hgb 3.9 L* D 3.8 L* Hct 12.8 L* 12.4 L* MCV 97.0 D MCH 29.5 D MCHC 30.5 L RDW 20.7 H Plt Count 120 L MPV 12.7 H Immature Gran % (Auto) 4.7 H Neut % (Auto) 77.9 H Lymph % (Auto) 10.3 L [place] % (Auto) 7.0 Eos % (Auto) 0.0 Baso % (Auto) 0.1 L Lymph # (Auto) 2.11 [place] # (Auto) 1.4 H Eos # (Auto) 0.0 Baso # (Auto) 0.0 Abs Immat Gran (auto) 0.95 H Absolute Neuts (auto) 15.9 H Absolute Nucleated RBC 0.230 H Nucleated RBC % 1.1 H % Immature Plt Fraction 5.4 Sodium 134 L Potassium 4.3 Chloride 105 Carbon Dioxide 22 Anion Gap 7 BUN 67 H Creatinine 2.77 H Estim Creat Clear Calc 24 Estimated GFR 17 L Glucose 214 H POC Capillary Glucose Calcium 7.2 L Blood Type B Positive Antibody Screen Negative Crossmatch See Detail 09/21/24 07:55 WBC RBC Hgb Hct MCV MCH MCHC RDW Plt Count MPV Immature Gran % (Auto) Neut % (Auto) Lymph % (Auto) [place] % (Auto) Eos % (Auto) Baso % (Auto) Lymph # (Auto) [place] # (Auto) Eos # (Auto) Baso # (Auto) Abs Immat Gran (auto) Absolute Neuts (auto) Absolute Nucleated RBC Nucleated RBC % % Immature Plt Fraction Sodium Potassium Chloride Carbon Dioxide Anion Gap BUN Creatinine Estim Creat Clear Calc Estimated GFR Glucose POC Capillary Glucose 211 H Calcium Blood Type Antibody Screen Crossmatch Quality VTE Prophylaxis VTE prophylaxis: pharmacologic ordered Hospitalist MIPS Advance Care Plan I have confirmed that the patient's Advanced Care Plan is present, code status is documented, or surrogate decision maker is listed in patient medical record.: Yes Medication Reconciliation I have utilized all available resources to obtain, update and review the patients current medications (includes all prescriptions, OTC, herbals, cannabis, and nutritional supplements).: Yes
--- NOTE | 2024-09-21 10:31 | PC.NURSE ---
0930 Patient states she is agreeable to blood transfusion today. States she cannot sign the consent. I cannot see to sign anything. Consent c-signed by Brenda Alvarez RN who was at bedside. 1020 Spoke with , Jonatan Ernandez, per pt's request and gave him updates on low HgB and new orders. Mr. Ernandez verbalizes understanding, is in agreement with blood transfusion and stated he would be in today after 1730.
[2024-09-21 11:57] LABS: Glucose Point of Care 204 mg/dl (65-105)
[2024-09-21] MEDS: FUROSEMIDE INJ 40 MG/4 ML VIAL 20 MG IV PUSH (15:18)
--- NOTE | 2024-09-21 15:27 | PCOTNOTE ---
attempted OT re-eval d/t change in WB status and acute fracture, per RN pt's hemoglobin is in the 3's and is getting 4 units of blood today, not appropriate for re-eval at this time, will follow
[2024-09-21 17:02] LABS: Glucose Point of Care 241 mg/dl (65-105)
[2024-09-21] MEDS: hydrALAZINE HCL 20 MG/ML VIAL 10 MG IV PUSH (17:42)
[2024-09-21] MEDS: FAMOTIDINE 20 MG/2 ML VIAL IV PUSH (20:51)
[2024-09-21] MEDS: APIXABAN 2.5 MG TABLET PO (20:51)
[2024-09-21] MEDS: INSULIN GLARGINE (*BKC) 100 UNITS/ML SUB-Q (20:59)
[2024-09-21 21:37] LABS: Glucose Point of Care 256 mg/dl (65-105)
[2024-09-22] VITALS (14 sets, daily range): BP systolic 165–230; BP diastolic 87–117; PULSE 59–80; RESP 13–20; TEMP 36.2–36.8; O2SAT 98–100
[2024-09-22] MEDS: FUROSEMIDE INJ 40 MG/4 ML VIAL 20 MG IV PUSH (01:14)
[2024-09-22] MEDS: ACETAMINOPHEN 325 MG TABLET 650 MG PO ×4 (01:18→16:53)
[2024-09-22] MEDS: hydrALAZINE HCL 20 MG/ML VIAL 10 MG IV PUSH (02:56)
[2024-09-22 04:03] LABS: Basophils Percent Auto 0.2 % (0.2-1.2); Hematocrit 31.4 % (37.0-47.0); Hemoglobin 10.7 g/dL (12.0-15.0); Immature Granulocyte Absolute 0.77 K/mm3 (0.00-0.031); Immature Granulocyte Percent A 5.3 % (0-0.5); Immature Platelet Fraction Pct 4.7 % (0.9-11.2); Lymphocytes Absolute Auto 0.92 K/mm3 (0.9-3.2); Lymphocytes Percent Auto 6.3 % (18.3-44.2); Mean Corpuscular HGB Conc 34.1 g/dl (32-36); Mean Corpuscular Hemoglobin 29.4 pg (26-34); Mean Corpuscular Volume 86.3 fl (80-100); Mean Platelet Volume 12.3 fl (7.4-10.4); Monocytes Absolute Auto 0.9 K/mm3 (0.1-0.6); Monocytes Percent Auto 5.9 % (2.6-8.5); Neutrophils Absolute Auto 12.1 K/mm3 (1.3-6.7); Neutrophils Percent Auto 82.3 % (45.5-73.1); Nucleated Red Blood Cells Perc 0.4 % (0.0-0.2); Platelet Count Result 70 k/mm3 (150-375); Red Blood Count 3.64 M/mm3 (4.2-5.4); Red Cell Distribution Width 15.1 % (11.5-14.5); White Blood Count 14.6 K/mm3 (4.5-10.0)
[2024-09-22 04:14] LABS: Anisocytosis 1+; Macrocytosis 2+ (NORMAL); Platelet Estimate Decreased (Adequate); Schistocytes None Seen
[2024-09-22] MEDS: hydrALAZINE HCL 50 MG TABLET PO ×2 (06:15→14:49)
[2024-09-22] MEDS: SUCRALFATE SUSP 100 MG/ML 10 ML UDC 1000 MG PO ×4 (06:15→20:41)
[2024-09-22 08:38] LABS: Glucose Point of Care 259 mg/dl (65-105)
[2024-09-22] MEDS: POLYSACCHARIDE IRON COMPLEX 150 MG CAPSULE PO ×2 (08:40→16:52)
[2024-09-22] MEDS: ROSUVASTATIN 5 MG TABLET PO (08:41)
[2024-09-22] MEDS: METOPROLOL SUCCINATE EXT REL 100 MG TABCR PO (08:41)
[2024-09-22] MEDS: amLODIPine BESYLATE 5 MG TABLET PO (08:41)
[2024-09-22] MEDS: SODIUM BICARBONATE TAB 650 MG TABLET 1300 MG PO ×3 (08:41→16:53)
[2024-09-22] MEDS: FAMOTIDINE 20 MG/2 ML VIAL IV PUSH ×2 (08:42→20:41)
[2024-09-22] MEDS: LORATADINE 5 MG TABLET PO (08:42)
[2024-09-22] MEDS: predniSONE 20 MG TABLET PO (08:42)
[2024-09-22] MEDS: APIXABAN 2.5 MG TABLET PO ×2 (08:42→20:41)
[2024-09-22] MEDS: INSULIN ASPART (*BKC) 100 UNITS/ML SUB-Q ×3 (08:43→17:25)
[2024-09-22] MEDS: TIMOLOL MALEATE 0.5% OP SOLN 5 ML BOTTLE 1 DROP EACH EYE ×2 (08:45→20:41)
[2024-09-22] MEDS: BRIMONIDINE TARTRATE 0.2% OP SOLN 5 ML BTL 1 DROP EACH EYE ×2 (08:45→20:41)
[2024-09-22] MEDS: ARTIFICIAL TEARS OPHTH SOLN 15 ML BOTTLE 1 DROP RIGHT EYE ×2 (08:45→20:41)
[2024-09-22] MEDS: DORZOLAMIDE HCL 2% OPHTH DROPS 1 DROP RIGHT EYE ×2 (08:45→20:41)
--- NOTE | 2024-09-22 09:39 | PCNFU ---
Nutrition Follow-Up Complete: suboptimal po intake related to reduced appetite as evidenced by pt report and charted intake PO intake 50% or greater - Not meeting goal. Appetite is very poor Goal: Pt current nutrition is Diabetic consistent carb diet with Ensure Compact once per day (220 kcal, 9 g protein each) Nutrition recommendation: No nutrition recommendations. Continue to encourage intakes. Agree with nutrition care plan and orders. Last recorded weight is 104.4 kg. Bowel Motility: Last recorded BM 09/13/24 Labs Reviewed: Hgb 10.7, Hct 31.4, Glu 259 Meds Noted: Novolog, Zofran Skin: No pressure injuries Additional Notes: Pt had gastroenteritis, colitis and appetite remains poor. Continue to encourage intakes. Agree with order.s Monitor intake, wt, labs. Follow up in 5 days.
--- NOTE | 2024-09-22 09:54 | P.PNIM_ITS ---
Progress Note: A&P Assessment and Plan (1) Fall from ground level: Code(s): W18.30XA - Fall on same level, unspecified, initial encounter Status: Acute Assessment and Plan: - Likely mechanical due to generalized muscle weakness. - Slid down to the floor with PT in room. -continue PT/OT treatment with Ortho precautions. -currently on bedrest. -will likely need SNF/rehab placement. - Supportive care for now. -Seen by ortho and currently placed on immobilizer fracture boot. -Currently not a candidate for surgery. -Surgical intervention to be considered when her overall medical condition improves. (2) Fracture of left proximal fibula: Code(s): S82.832A - Other fracture of upper and lower end of left fibula, initial encounter for closed fracture Status: Acute Assessment and Plan: - Related to # 1. - XR Tib/Fib 2VW: 1. Fractures of proximal and distal fibula. - Seen by Ortho and currently not a candidate for surgery. -surgical intervention to be considered with improved medical condition. -immobilizer boot placed per Ortho. -pain meds p.r.n.. -supportive care. -PT/OT with ortho restrictions. (3) Anemia: Code(s): D64.9 - Anemia, unspecified Status: Acute Assessment and Plan: Baseline H&H 04/18.7. 06/24.9 on admission in the setting of dehydration. * Hgb this AM 3.8 * Schedule for 4 units PRBC's transfusion today. * Occult blood of stool negative. * Anemia likely due to degree of renal disease + possibly hemodilution +/vs other. * Patient on apixaban for AFib. * Continue to follow H/H closely. * Transfuse for Hgb < 7. * Continue p.o. iron supplementation. A.m. hemoglobin 10.7 (4) Anemia requiring transfusions: Code(s): D64.9 - Anemia, unspecified Status: Acute Assessment and Plan: -Mgt as # 3. -schedule for 4 units PRBC's transfusion today. -continue to monitor H/H closely and transfuse forHgb <7. (5) Closed left ankle fracture: Qualifiers: Encounter type: initial encounter Qualified Code(s): S82.892A - Other fracture of left lower leg, initial encounter for closed fracture Code(s): S82.892A - Other fracture of left lower leg, initial encounter for closed fracture Status: Acute Assessment and Plan: - Related to # 1. - XR L. Foot 2VW: 1. Fractures of proximal and distal fibula. 2. Comminuted fracture of distal tibia. -continue to maintain bedrest for now. -immobilizer boot to LLE per Ortho. -continue supportive care with pain meds p.r.n.. -maintain fall precautions. -PT/OT with Ortho restrictions. -Ortho to consider surgical intervention when medically stable. (6) BUTCH (acute kidney injury): Code(s): N17.9 - Acute kidney failure, unspecified Status: Acute Assessment and Plan: CKD stage 4. Creatinine 4.21 on admission, improved with fluids. Complicated by anemia. * Possibly affected by anemia. * Creatinine slowly trending up * Seen by Nephrology but no recent f/u from nephro. * Consider re-consulting nephro for worsening renal function. * Albumin previously ordered to assist with edema but pt refused. * continue sodium bicarb tabs * IVF currently off due to significant LE edema. * Repleting mag and phos as needed. * Continue to monitor on telemetry (7) Urinary tract infection: Code(s): N39.0 - Urinary tract infection, site not specified Status: Inactive Assessment and Plan: Resolved UA on 09/07/2024- negativefor acute UTI, repeat on 09/13/2024 with 2+ leukocyte esterase Treated with IV Rocephin and Cefdinir with abx therapy completed. (8) Enteritis: Code(s): K52.9 - Noninfective gastroenteritis and colitis, unspecified Status: Acute Assessment and Plan: Resolved * GI symptoms improving with no emesis or diarrhea episodes last few days. * Continues to tolerate meals fairly but with very poor appetite. * Life Enrichment Manager consulted. * Carafate with meals, pepcid. Changed to PPI after stool for H pylori sent * Antiemetics PRN. * Seen by GI and no further recommendations for now, Colchicine dc'd. * Holding colchicine * C-diff negative. * Continue supportive care. (9) Atrial fibrillation: Code(s): I48.91 - Unspecified atrial fibrillation Status: Acute Assessment and Plan: rate controlled continue Eliquis and Crestor (10) Diabetes mellitus: Qualifiers: Diabetes mellitus complication detail: with diabetic retinopathy Diabetes mellitus complication status: with ophthalmic complications Diabetes mellitus terminal system operator insulin use: without chcf use Diabetes mellitus macular edema: without macular edema Diabetes mellitus type: type 2 Diabetic reti nopathy severity: with unspecified retinopathy severity Laterality: right Qualified Code(s): E11.319 - Type 2 diabetes mellitus with unspecified diabetic retinopathy without macular edema Code(s): E11.9 - Type 2 diabetes mellitus without complications Status: Chronic Assessment and Plan: HgbA1C is 5.3. * Continue hypoglycemic protocol * Continue SSI * Low-dose lantus added with mod elevated glucose levels. * Continue Diabetic diet * Continue to adjust meds as needed. (11) Hypertension: Code(s): I10 - Essential (primary) hypertension Status: Chronic Assessment and Plan: Home meds: Hydralazine 50mg TID, Metoprolol 100mg ER, Amlodipine 5mg * Blood pressure not well controlled * Continue home antihypertensives Patient extremely hypertensive in fluid overload will ditke (12) Failure to thrive: Status: Acute Assessment and Plan: No s/s of overt malnutrition present. -very poor p.o. intake. * PT/OT evaluate and treat * aerosol line operator re consulted. * Daily weights. * Encouraged with meals and nutritional supplement. (13) Pericarditis: Code(s): I31.9 - Disease of pericardium, unspecified Status: Acute Assessment and Plan: Recent pericarditis, started on ibuprofen and colcicine 0.6mg BID and patient reports pain resolved --No NSAIDs for BUTCH/CKD --No colchine for GI symptoms --Started on Prednisone 40mg with a taper --Seen by Cardiology and we'll discuss with Card's on Prednisone taper. -- Repeat echocardiogram with no pericardial effusion. (14) Generalized muscle weakness: Code(s): M62.81 - Muscle weakness (generalized) Status: Acute Assessment and Plan: -PT/OT eval and treatment with Ortho restrictions. -fall precautions. Plan Anemia requiring transfusion today. Continue to monitor hemoglobin closely and transfuse for Hgb <7. Seen by Ortho and currently not a surgical candidate, surgery to be considered later when medically stable. Immobilizer boot to LLE placed by Ortho. Continue PT/OT with water restrictions, but patient not very motivated for anything. Patient is extremely edematous will diurese Time Spent With Patient Time with patient: Greater than 35 minutes Subjective Date/time seen: 09/22/24 09:54 Interval history: Patient initially admitted for BUTCH and gastroenteritis. Prolonged hospitalization led to patient increased generalized muscle weakness and patient was working with PT when her legs became weak and she slid to the floor. Imaging revealed left ankle fracture and left proximal fibular fracture. Patient has been seen by Ortho and is currently on brace to his left lower extremity. Patient also has chronic anemia possibly from CKD and his hemoglobin yesterday was 3.8. Patient received 4 units RBCs yesterday, this morning lung sounds are coarse, and edema has increased. Will diurese. Hemoglobin this morning is 10.7. Review of Systems Review of Systems: 12 systems were reviewed and are negative except for as per HPI. All systems reviewed & are unremarkable except as noted in HPI and below Exam Narrative: General: Fair appearing, generalized muscle weakness. HEENT: normocephalic, atraumatic. PERRL. Mucous membranes dry. Neck supple without JVD, lymphadenopathy, or bruit. Respiratory: Per respiratory effort, slight congestion with weak cough. Not motivated to use IS. Cardiovascular: Regular rate and rhythm, normal S1-S2. Abdomen: Soft, round, obese. Bowel sounds present to all four quadrants. Extremities: Ecchymosis to Right Foot and Left lower leg, 3+ edema ac. LE, 4+ edema ac. Feet. Neuro: Alert and orientated x 4. PERRLA. Cranial nerves 2-12 intact without focal deficit. Skin: Warm, dry, and intact, ecchymosis to right dorsal foot, ecchymosis to Left lower leg. Psych: Withdrawn but cooperative with a flat affect. Objective Data Vital Signs Vital Signs: Vital Signs - 24 hr 09/21/24 10:00 09/21/24 11:00 09/21/24 11:00 Temperature 97.8 F 97.6 F 97.6 F Pulse Rate 63 69 69 Respiratory Rate 20 16 16 Blood Pressure 142/66 H 135/73 135/73 Pulse Oximetry 97 100 100 09/21/24 11:43 09/21/24 11:56 09/21/24 12:00 Temperature 97.6 F 97.6 F 97.8 F Pulse Rate 63 66 65 Respiratory Rate 16 16 18 Blood Pressure 161/70 H 161/70 H 165/79 H Pulse Oximetry 99 99 95 09/21/24 12:00 09/21/24 13:00 09/21/24 13:55 Temperature 97.2 F L 97.3 F L Pulse Rate 68 71 69 Respiratory Rate 16 16 Blood Pressure 181/91 H 192/93 H Pulse Oximetry 98 100 09/21/24 14:00 09/21/24 15:00 09/21/24 16:00 Temperature 97.3 F L 98.1 F 97.8 F Pulse Rate 69 67 66 Respiratory Rate 16 16 16 Blood Pressure 192/93 H 213/100 H 195/88 H Pulse Oximetry 100 100 100 09/21/24 16:00 09/21/24 18:00 09/21/24 18:00 Temperature 97.7 F 97.7 F Pulse Rate 65 66 66 Respiratory Rate 16 16 Blood Pressure 200/86 H 200/86 H Pulse Oximetry 98 98 09/21/24 18:00 09/21/24 18:10 09/21/24 18:30 Temperature 97.7 F 97.7 F 98.2 F Pulse Rate 66 66 63 Respiratory Rate 16 16 16 Blood Pressure 200/86 H 200/86 H 190/88 H Pulse Oximetry 98 98 100 09/21/24 20:00 09/21/24 20:00 09/21/24 20:30 Temperature 98.2 F 98.2 F Pulse Rate 64 68 68 Respiratory Rate 18 18 Blood Pressure 158/114 H 158/114 H Pulse Oximetry 99 99 09/21/24 21:12 09/21/24 22:04 09/21/24 22:13 Temperature 98.3 F 97.8 F 97.1 F L Pulse Rate 70 71 64 Respiratory Rate 20 18 20 Blood Pressure 164/98 H 211/97 H 230/106 H Pulse Oximetry 100 98 99 09/22/24 00:00 09/22/24 00:00 09/22/24 01:10 Temperature 97.1 F L 97.9 F Pulse Rate 64 63 68 Respiratory Rate 20 18 Blood Pressure 230/106 H 228/110 H Pulse Oximetry 99 98 09/22/24 01:10 09/22/24 02:30 09/22/24 04:00 Temperature 97.9 F 98.2 F Pulse Rate 68 72 Respiratory Rate 18 16 Blood Pressure 228/110 H 198/117 H 179/89 H Pulse Oximetry 98 98 09/22/24 04:00 09/22/24 08:41 Temperature Pulse Rate 68 70 Respiratory Rate Blood Pressure Pulse Oximetry Intake/Output Intake/Output: Intake & Output 0109/20/24 09/21/24 09/22/24 23:59 23:59 23:59 23:59 Intake Total 4333 540 0502 350 Output Total 1050 033 915 3226 Balance 210 490 970 -1850 Meds/Results Medications: Active Medications Generic Name Dose Route Start Last Admin Trade Name Freq PRN Reason Stop Dose Admin Acetaminophen 650 mg 09/17/24 20:00 09/22/24 06:15 Acetaminophen 325 Mg Tablet PO 650 mg Q6HR NAHOMI Administration Amlodipine Besylate 5 mg 09/07/24 09:00 09/22/24 08:41 Amlodipine Besylate 5 Mg Tablet PO 5 mg QAM NAHOMI Administration Apixaban 2.5 mg 09/07/24 09:30 09/22/24 08:42 Apixaban 2.5 Mg Tablet PO 2.5 mg Q12HR NAHOMI Administration Artificial Tears 1 drop 09/07/24 09:35 09/22/24 08:45 Artificial Tears Ophth Soln 15 Ml Bottle RIGHT EYE 1 drop Q12HR NAHOMI Administration Brimonidine Tartrate 1 drop 09/07/24 09:30 09/22/24 08:45 Brimonidine Tartrate 0.2% Op Soln 5 Ml Btl EACH EYE 1 drop Q12HR NAHOMI Administration Dextrose 12.5 gm 09/07/24 09:15 Dextrose 50% 25 Gm/50 Ml Syringe IV PUSH PRN PRN Hypoglycemia Protocol Dorzolamide HCl 1 drop 09/07/24 09:30 09/22/24 08:45 Dorzolamide Hcl 2% Ophth Drops RIGHT EYE 1 drop Q12HR NAHOMI Administration Famotidine 20 mg 09/07/24 21:00 09/22/24 08:42 Famotidine 20 Mg/2 Ml Vial IV PUSH 20 mg Q12HR NAHOMI Administration Glucagon 1 mg 09/07/24 09:15 Glucagon For Inj 1 Mg Vial IM PRN PRN Hypoglycemia Protocol Glucose 15 gm 09/07/24 09:15 Glucose Oral Gel 15 Gm Of Glucse In 37.5 Gm Tube PO PRN PRN Hypoglycemia Protocol Guaifenesin/Dextromethorphan 5 ml 09/18/24 15:30 09/20/24 17:51 Guaifenesin/Dextromethorphan 10 Ml Udc PO 5 ml Q4H PRN Administration Cough Hydralazine HCl 50 mg 09/07/24 13:00 09/22/24 06:15 Hydralazine Hcl 50 Mg Tablet PO 50 mg Q8HR NAHOMI Administration Dextrose 1,000 mls @ 100 mls/hr 09/07/24 09:15 Dextrose 5% 1,000 Ml IVPB PRN PRN Hypoglycemia Protocol Insulin Aspart 2 - 5 units 09/17/24 08:00 09/22/24 08:43 Insulin Aspart (*Bkc) 100 Units/Ml SUB-Q 3 units TIDWM NAHOMI Administration Protocol Insulin Glargine 5 units 09/17/24 21:00 09/21/24 20:59 Insulin Glargine (*Bkc) 100 Units/Ml SUB-Q 5 units HS NAHOMI Administration Loperamide HCl 2 mg 09/08/24 08:12 09/13/24 18:38 Loperamide Hcl 2 Mg Capsule PO 2 mg Q6HR PRN Administration Diarrhea Loratadine 5 mg 09/18/24 15:35 09/22/24 08:42 Loratadine 5 Mg Tablet PO 5 mg QAM NAHOMI Administration Metoprolol Succinate 100 mg 09/07/24 09:00 09/22/24 08:41 Metoprolol Succinate Ext Rel 100 Mg Tabcr PO 100 mg QAM NAHOMI Administration Morphine Sulfate 2 mg 09/17/24 19:48 09/20/24 17:57 Morphine Sulfate (*Crx) 2 Mg/Ml Inj IV PUSH 2 mg Q4H PRN Administration Pain Rated 7-10 Naloxone HCl 0.1 mg 09/07/24 08:19 Naloxone Hcl 0.4 Mg/Ml Vial IV PUSH Q2M PRN Opiate Reversal Ondansetron HCl 4 mg 09/07/24 09:15 09/13/24 14:52 Ondansetron Inj 4 Mg/2 Ml Vial IV PUSH 4 mg Q6H PRN Administration Nausea And Vomiting Oxycodone HCl 5 mg 09/17/24 19:48 09/20/24 12:47 Oxycodone Hcl (*Crx) 5 Mg Tab Ir PO 5 mg Q4H PRN Administration Pain Rated 4-6 Oxycodone HCl 10 mg 09/17/24 19:48 09/20/24 07:39 Oxycodone Hcl (*Crx) 5 Mg Tab Ir PO 10 mg Q4H PRN Administration Pain Rated 7-9 Polysaccharide Iron Complex 150 mg 09/07/24 17:00 09/22/24 08:40 Polysaccharide Iron Complex 150 Mg Capsule PO 150 mg BIDWM NAHOMI Administration Prednisone 20 mg 09/22/24 08:00 09/22/24 08:42 Prednisone 20 Mg Tablet PO 20 mg DAILY@0800 NAHOMI Administration Pseudoephedrine HCl 30 mg 09/18/24 15:31 09/20/24 07:54 Pseudoephedrine Hcl 30 Mg Tablet PO 30 mg Q4H PRN Administration Congestion Rosuvastatin Calcium 5 mg 09/07/24 09:00 09/22/24 08:41 Rosuvastatin 5 Mg Tablet PO 5 mg QAM NAHOMI Administration Sodium Bicarbonate 1,300 mg 09/10/24 09:00 09/22/24 08:41 Sodium Bicarbonate Tab 650 Mg Tablet PO 1,300 mg TID NAHOMI Administration Sucralfate 1,000 mg 09/07/24 11:30 09/22/24 06:15 Sucralfate Susp 100 Mg/Ml 10 Ml Udc PO 1,000 mg ACHS NAHOMI Administration Timolol Maleate 1 drop 09/07/24 09:35 09/22/24 08:45 Timolol Maleate 0.5% Op Soln 5 Ml Bottle EACH EYE 1 drop Q12HR NAHOMI Administration Radiology Results: ITS Impressions Abdomen/Pelvis CT 09/07/24 05:37 Impression: Minimal bilateral pleural effusions. Horseshoe kidney. Elbow X-Ray 09/17/24 12:16 IMPRESSION: 1. No fracture. Knee X-Ray 09/17/24 12:17 IMPRESSION: 1. Minimally displaced extra articular fracture of the proximal left fibular diaphysis. Correlate for any associated ankle pain and consider additional radiographs of the more distal tibia and fibula as clinically indicated. Tibia/Fibula X-Ray 09/17/24 15:54 IMPRESSION: 1. Fractures of proximal and distal fibula. 2. Comminuted fracture of distal tibia. Ankle X-Ray 09/17/24 15:55 IMPRESSION: Trimalleolar fracture of the left ankle, as detailed above. Chest X-Ray 09/21/24 10:54 IMPRESSION: No focal infiltrate or effusion. If clinical suspicion persists, cross-sectional imaging (noncontrast enhanced CT examination of the chest) is recommended for further evaluation. Foot X-Ray 09/21/24 17:53 IMPRESSION: 1. No fracture. Labs Labs: Laboratory Results - last 24 hr 09/21/24 09/21/24 09/21/24 07:43 11:43 16:50 WBC RBC Hgb Hct MCV MCH MCHC RDW Plt Count MPV Immature Gran % (Auto) Neut % (Auto) Lymph % (Auto) Bullock % (Auto) Eos % (Auto) Baso % (Auto) Lymph # (Auto) Bullock # (Auto) Eos # (Auto) Baso # (Auto) Abs Immat Gran (auto) Absolute Neuts (auto) Absolute Nucleated RBC Nucleated RBC % Platelet Estimate % Immature Plt Fraction Anisocytosis Macrocytosis Schistocytes POC Capillary Glucose 204 H 241 H Blood Type B Positive Antibody Screen Negative Crossmatch See Detail 09/21/24 09/22/24 09/22/24 20:51 03:56 08:23 WBC 14.6 H RBC 3.64 L Hgb 10.7 L D Hct 31.4 L MCV 86.3 D MCH 29.4 MCHC 34.1 RDW 15.1 H Plt Count 70 L MPV 12.3 H Immature Gran % (Auto) 5.3 H Neut % (Auto) 82.3 H Lymph % (Auto) 6.3 L Bullock % (Auto) 5.9 Eos % (Auto) 0.0 Baso % (Auto) 0.2 Lymph # (Auto) 0.92 Bullock # (Auto) 0.9 H Eos # (Auto) 0.0 Baso # (Auto) 0.0 Abs Immat Gran (auto) 0.77 H Absolute Neuts (auto) 12.1 H Absolute Nucleated RBC 0.060 H Nucleated RBC % 0.4 H Platelet Estimate Decreased % Immature Plt Fraction 4.7 Anisocytosis 1+ Macrocytosis 2+ Schistocytes None seen POC Capillary Glucose 256 H 259 H Blood Type Antibody Screen Crossmatch Quality VTE Prophylaxis VTE prophylaxis: pharmacologic ordered
[2024-09-22 11:52] LABS: Glucose Point of Care 291 mg/dl (65-105)
[2024-09-22] MEDS: guaiFENesin/DEXTROMETHORPHAN 10 ML UDC PO ×2 (16:52→20:41)
[2024-09-22] MEDS: FUROSEMIDE INJ 40 MG/4 ML VIAL IV PUSH (16:53)
--- NOTE | 2024-09-22 17:03 | PC.NURSE ---
On 09/22/24, the student, [Yenny Mir ], provided care and completed [facility]. I have reviewed the student's documentation and agree with the findings.
--- NOTE | 2024-09-22 17:03 | PC.NURSE ---
On 09/22/24, the student, [Juan Luis Chu ], provided care and completed [facility] documentation on this patient. I have reviewed the student's documentation and agree with the findings. He did notify the RN of the BP taken at 1200.
[2024-09-22 17:08] LABS: Glucose Point of Care 310 mg/dl (65-105)
[2024-09-22] MEDS: INSULIN GLARGINE (*BKC) 100 UNITS/ML 10 UNITS SUB-Q (20:48)
[2024-09-22 20:49] LABS: Glucose Point of Care 308 mg/dl (65-105)
[2024-09-22] MEDS: IPRATROPIUM 0.5 MG/ALBUTEROL SULFATE 2.5 MG AMPUL.NEB 3 ML INHALATION (21:14)
[2024-09-22] MEDS: hydrALAZINE HCL 25 MG TABLET 75 MG PO (21:47)
[2024-09-23] VITALS (16 sets, daily range): BP systolic 142–171; BP diastolic 72–89; PULSE 58–86; RESP 13–20; TEMP 36.1–36.4; O2SAT 96–100
[2024-09-23 00:55] LABS: Creatinine Urine 19.8 mg/dL
[2024-09-23 01:05] LABS: Total Protein Urine Random 532 mg/dL; Ur Ttl Prot Creatinine Ratio 26.87 mg/mg (0-0.20)
[2024-09-23] MEDS: ACETAMINOPHEN 325 MG TABLET 650 MG PO ×4 (05:17→23:44)
[2024-09-23] MEDS: guaiFENesin/DEXTROMETHORPHAN 10 ML UDC PO ×6 (05:17→23:44)
[2024-09-23] MEDS: hydrALAZINE HCL 25 MG TABLET 75 MG PO ×2 (05:38→14:20)
[2024-09-23] MEDS: SUCRALFATE SUSP 100 MG/ML 10 ML UDC 1000 MG PO ×4 (05:38→20:17)
[2024-09-23] MEDS: IPRATROPIUM 0.5 MG/ALBUTEROL SULFATE 2.5 MG AMPUL.NEB 3 ML INHALATION ×3 (06:45→20:13)
[2024-09-23 07:31] LABS: Basophils Percent Auto 0.2 % (0.2-1.2); Hemoglobin 10.8 g/dL (12.0-15.0); Immature Granulocyte Percent A 2.4 % (0-0.5); Immature Platelet Fraction Pct 6.6 % (0.9-11.2); Lymphocytes Absolute Auto 1.34 K/mm3 (0.9-3.2); Lymphocytes Percent Auto 8.1 % (18.3-44.2); Mean Corpuscular HGB Conc 32.7 g/dl (32-36); Mean Corpuscular Hemoglobin 29.9 pg (26-34); Mean Corpuscular Volume 91.4 fl (80-100); Mean Platelet Volume 12.8 fl (7.4-10.4); Monocytes Absolute Auto 0.9 K/mm3 (0.1-0.6); Monocytes Percent Auto 5.2 % (2.6-8.5); Neutrophils Absolute Auto 13.9 K/mm3 (1.3-6.7); Neutrophils Percent Auto 84.1 % (45.5-73.1); Nucleated Red Blood Cells Perc 0.2 % (0.0-0.2); Platelet Count Result 80 k/mm3 (150-375); Red Blood Count 3.61 M/mm3 (4.2-5.4); White Blood Count 16.5 K/mm3 (4.5-10.0)
[2024-09-23 07:40] LABS: Alanine Aminotransferase 17 U/L (6-35); Albumin Level 2.1 g/dL (3.5-5.1); Alkaline Phosphatase 80 U/L (38-126); Anion Gap 6 mmol/L (4-12); Aspartate Amino Transferase 24 U/L (14-36); Blood Urea Nitrogen 70 mg/dL (7-17); Calcium 7.4 mg/dL (8.4-10.2); Carbon Dioxide 23 mmol/L (22-30); Chloride 104 mmol/L (98-107); Creatine Kinase 26 U/L (30-135); Estimated CRCL calculation 27 ml/min; Estimated Glomerular Filt Rate 19; Glucose 237 mg/dL (65-110); Magnesium 2.3 mg/dL (1.6-2.3); Phosphorus 3.9 mg/dL (2.5-4.5); Potassium 3.9 mmol/L (3.4-5.0); Sodium 133 mmol/L (137-145)
[2024-09-23 08:02] LABS: Anisocytosis 1+; Ovalocytes 1+; Platelet Estimate Decreased (Adequate); Polychromasia 1+
[2024-09-23 08:03] LABS: Atypical Lymphocytes Present; Schistocytes None Seen
[2024-09-23 08:35] LABS: Glucose Point of Care 248 mg/dl (65-105)
[2024-09-23 08:48] LABS: HIV 1/2 Ab P24 Ag Result Negative (Negative)
[2024-09-23] MEDS: amLODIPine BESYLATE 5 MG TABLET PO (09:39)
[2024-09-23] MEDS: APIXABAN 2.5 MG TABLET PO ×2 (09:39→19:59)
[2024-09-23] MEDS: LORATADINE 5 MG TABLET PO (09:39)
[2024-09-23] MEDS: predniSONE 20 MG TABLET PO (09:39)
[2024-09-23] MEDS: INSULIN ASPART (*BKC) 100 UNITS/ML SUB-Q ×3 (09:39→17:14)
[2024-09-23] MEDS: ROSUVASTATIN 5 MG TABLET PO (09:40)
[2024-09-23] MEDS: SODIUM BICARBONATE TAB 650 MG TABLET 1300 MG PO ×3 (09:40→17:13)
[2024-09-23] MEDS: METOPROLOL SUCCINATE EXT REL 100 MG TABCR PO (09:41)
[2024-09-23] MEDS: FAMOTIDINE 20 MG/2 ML VIAL IV PUSH (09:42)
[2024-09-23] MEDS: BRIMONIDINE TARTRATE 0.2% OP SOLN 5 ML BTL 1 DROP EACH EYE ×2 (09:43→20:16)
[2024-09-23] MEDS: ARTIFICIAL TEARS OPHTH SOLN 15 ML BOTTLE 1 DROP RIGHT EYE ×2 (09:43→20:32)
[2024-09-23] MEDS: DORZOLAMIDE HCL 2% OPHTH DROPS 1 DROP RIGHT EYE ×2 (09:43→20:16)
--- NOTE | 2024-09-23 09:52 | PM.PNORT ---
Progress Note: A&P Assessment and Plan (1) Closed left ankle fracture: Qualifiers: Encounter type: initial encounter Qualified Code(s): S82.892A - Other fracture of left lower leg, initial encounter for closed fracture Code(s): S82.892A - Other fracture of left lower leg, initial encounter for closed fracture Status: Acute Assessment and Plan: 6 days s/p fall while working with PT. Initial radiographs revealed a left proximal fibular fracture. Follow up left tib/fib and ankle radiographs reveal a left bimalleolar ankle fracture with anterior medial plafond extension. Patient has been a poor candidate for surgical fixation given low Hgb and overall medical condition, including 4+ pitting edema. Improving/stable HgB at this time. Will maintain nonoperative treatment in the interim with supportive care and immobilization in a fracture boot of the E until further decision by Dr. Rojas. Further discussed with Dr. Shelley today regarding surgical intervention. Plans for evaluation and decision. (2) Fracture of left proximal fibula: Code(s): S82.832A - Other fracture of upper and lower end of left fibula, initial encounter for closed fracture Status: Acute (3) Swelling of right foot: Code(s): M79.89 - Other specified soft tissue disorders Status: Acute Assessment and Plan: Radiographs negative. (4) Anemia: Code(s): D64.9 - Anemia, unspecified Status: Acute Assessment and Plan: HgB 10.8. Improved/stable. Subjective Subjective Date/Time Seen: 09/23/24 09:52 Interval history: Patient resting in bed. Reports overall improvement in left ankle pain. No new concerns. Denies right foot pain. Review of Systems Review of Systems: All systems reviewed & are unremarkable except as noted in HPI and below Exam Const: General: cooperative and ill appearing chronically Orientation/consciousness: patient oriented x3 HENMT: Head: normal to inspection Extrem: Right upper extremity: full ROM and elbow/forearm normal to inspection, tenderness and normal ROM Left upper extremity: normal to inspection and full ROM Right lower extremity: normal to inspection, full ROM, knee (pitting edema ) Details: normal to inspection and normal ROM; no tenderness, lower leg (pitting edema ), ankle (pitting edema ) Details: no tenderness and foot (pitting edema ) Details: tenderness (forefoot ), edema (4+ pitting edema ), ecchymosis and crepitus Left lower extremity: knee Details: tenderness Location: of the proximal fibula and abnormal ROM Details: pain with active ROM, lower leg (edema ) Details: tenderness Location: of the proximal fibula, of the midshaft tibia and of the distal tibia, ankle (edema ) Details: abnormal to inspection, tenderness Location: of the lateral malleolus and of the medial malleolus and abnormal ROM Details: pain with active ROM Details: with plantar flexion and with dorsiflexion; no warmth, no abrasions and no lacerations and foot (edema ) Details: tenderness, toes with normal ROM and vascular exam Details: dorsalis pedis pulse present Objective Data Vital Signs Vital Signs: Vital Signs - 24 hr 09/22/24 12:00 09/22/24 12:00 09/22/24 14:57 Temperature 36.6 C Pulse Rate 72 59 L Respiratory Rate 18 Blood Pressure 193/105 H Pulse Oximetry 99 Oxygen Delivery Room Air Fraction of Inspired Oxygen 09/22/24 16:00 09/22/24 16:00 09/22/24 20:00 Temperature 36.6 C 36.2 C L Pulse Rate 69 80 67 Respiratory Rate 18 13 Blood Pressure 200/95 H 165/87 H Pulse Oximetry 99 100 Oxygen Delivery Fraction of Inspired Oxygen 09/22/24 20:01 09/22/24 20:40 09/22/24 21:14 Temperature Pulse Rate 72 68 Respiratory Rate 20 Blood Pressure Pulse Oximetry 98 98 Oxygen Delivery Room Air Room Air Fraction of Inspired Oxygen 21 21 09/22/24 21:14 09/22/24 21:23 09/22/24 23:47 Temperature 36.2 C L Pulse Rate 66 68 74 Respiratory Rate 20 20 14 Blood Pressure 176/89 H Pulse Oximetry 99 Oxygen Delivery Fraction of Inspired Oxygen 09/23/24 00:03 09/23/24 04:00 09/23/24 04:01 Temperature 36.3 C L Pulse Rate 65 68 58 L Respiratory Rate 13 Blood Pressure 171/86 H Pulse Oximetry 99 Oxygen Delivery Fraction of Inspired Oxygen 09/23/24 06:45 09/23/24 06:45 09/23/24 08:00 Temperature 36.1 C L Pulse Rate 86 86 70 Respiratory Rate 18 18 16 Blood Pressure 153/72 H Pulse Oximetry 96 99 Oxygen Delivery Room Air Fraction of Inspired Oxygen 09/23/24 09:41 Temperature Pulse Rate 66 Respiratory Rate Blood Pressure Pulse Oximetry Oxygen Delivery Fraction of Inspired Oxygen Intake/Output Intake/Output: Intake & Output 09/20/24 09/21/24 09/22/24 09/23/24 23:59 23:59 23:59 23:59 Intake Total 590 1770 710 480 Output Total 017 963 6121 850 Balance 490 354 -[phone] -717 Meds/Results Medications: Active Medications Generic Name Dose Route Start Last Admin Trade Name Freq PRN Reason Stop Dose Admin Acetaminophen 650 mg 09/17/24 20:00 09/23/24 05:17 Acetaminophen 325 Mg Tablet PO 650 mg Q6HR NAHOMI Administration Albuterol/Ipratropium 3 ml 09/22/24 20:00 09/23/24 06:45 Ipratropium 0.5 Mg/Albuterol Sulfate 2.5 Mg Ampul.Neb 3 Ml INHALATION 3 ml Q6HRT NAHOMI Administration Amlodipine Besylate 5 mg 09/07/24 09:00 09/23/24 09:39 Amlodipine Besylate 5 Mg Tablet PO 5 mg QAM NAHOMI Administration Apixaban 2.5 mg 09/07/24 09:30 09/23/24 09:39 Apixaban 2.5 Mg Tablet PO 2.5 mg Q12HR NAHOMI Administration Artificial Tears 1 drop 09/07/24 09:35 09/23/24 09:43 Artificial Tears Ophth Soln 15 Ml Bottle RIGHT EYE 1 drop Q12HR NAHOMI Administration Brimonidine Tartrate 1 drop 09/07/24 09:30 09/23/24 09:43 Brimonidine Tartrate 0.2% Op Soln 5 Ml Btl EACH EYE 1 drop Q12HR NAHOMI Administration Dextrose 12.5 gm 09/07/24 09:15 Dextrose 50% 25 Gm/50 Ml Syringe IV PUSH PRN PRN Hypoglycemia Protocol Dorzolamide HCl 1 drop 09/07/24 09:30 09/23/24 09:43 Dorzolamide Hcl 2% Ophth Drops RIGHT EYE 1 drop Q12HR NAHOMI Administration Famotidine 20 mg 09/07/24 21:00 09/23/24 09:42 Famotidine 20 Mg/2 Ml Vial IV PUSH 20 mg Q12HR NAHOMI Administration Glucagon 1 mg 09/07/24 09:15 Glucagon For Inj 1 Mg Vial IM PRN PRN Hypoglycemia Protocol Glucose 15 gm 09/07/24 09:15 Glucose Oral Gel 15 Gm Of Glucse In 37.5 Gm Tube PO PRN PRN Hypoglycemia Protocol Guaifenesin/Dextromethorphan 5 ml 09/18/24 15:30 09/20/24 17:51 Guaifenesin/Dextromethorphan 10 Ml Udc PO 5 ml Q4H PRN Administration Cough Guaifenesin/Dextromethorphan 10 ml 09/22/24 16:35 09/23/24 09:42 Guaifenesin/Dextromethorphan 10 Ml Udc PO 10 ml Q4H NAHOMI Administration Hydralazine HCl 75 mg 09/22/24 22:00 09/23/24 05:38 Hydralazine Hcl 25 Mg Tablet PO 75 mg Q8HR NAHOMI Administration Dextrose 1,000 mls @ 100 mls/hr 09/07/24 09:15 Dextrose 5% 1,000 Ml IVPB PRN PRN Hypoglycemia Protocol Insulin Aspart 2 - 5 units 09/17/24 08:00 09/23/24 09:39 Insulin Aspart (*Bkc) 100 Units/Ml SUB-Q 2 units TIDWM NAHOMI Administration Protocol Insulin Glargine 10 units 09/22/24 21:00 09/22/24 20:48 Insulin Glargine (*Bkc) 100 Units/Ml SUB-Q 10 units HS NAHOMI Administration Loperamide HCl 2 mg 09/08/24 08:12 09/13/24 18:38 Loperamide Hcl 2 Mg Capsule PO 2 mg Q6HR PRN Administration Diarrhea Loratadine 5 mg 09/18/24 15:35 09/23/24 09:39 Loratadine 5 Mg Tablet PO 5 mg QAM NAHOMI Administration Metoprolol Succinate 100 mg 09/07/24 09:00 09/23/24 09:41 Metoprolol Succinate Ext Rel 100 Mg Tabcr PO 100 mg QAM NAHOMI Administration Morphine Sulfate 2 mg 09/17/24 19:48 09/20/24 17:57 Morphine Sulfate (*Crx) 2 Mg/Ml Inj IV PUSH 2 mg Q4H PRN Administration Pain Rated 7-10 Naloxone HCl 0.1 mg 09/07/24 08:19 Naloxone Hcl 0.4 Mg/Ml Vial IV PUSH Q2M PRN Opiate Reversal Ondansetron HCl 4 mg 09/07/24 09:15 09/13/24 14:52 Ondansetron Inj 4 Mg/2 Ml Vial IV PUSH 4 mg Q6H PRN Administration Nausea And Vomiting Oxycodone HCl 5 mg 09/17/24 19:48 09/20/24 12:47 Oxycodone Hcl (*Crx) 5 Mg Tab Ir PO 5 mg Q4H PRN Administration Pain Rated 4-6 Oxycodone HCl 10 mg 09/17/24 19:48 09/20/24 07:39 Oxycodone Hcl (*Crx) 5 Mg Tab Ir PO 10 mg Q4H PRN Administration Pain Rated 7-9 Polysaccharide Iron Complex 150 mg 09/07/24 17:00 09/23/24 09:46 Polysaccharide Iron Complex 150 Mg Capsule PO Not Given BIDWM [facility] Prednisone 20 mg 09/22/24 08:00 09/23/24 09:39 Prednisone 20 Mg Tablet PO 20 mg DAILY@0800 [facility] Administration Pseudoephedrine HCl 30 mg 09/18/24 15:31 09/20/24 07:54 Pseudoephedrine Hcl 30 Mg Tablet PO 30 mg Q4H PRN Administration Congestion Rosuvastatin Calcium 5 mg 09/07/24 09:00 09/23/24 09:40 Rosuvastatin 5 Mg Tablet PO 5 mg QAM [facility] Administration Sodium Bicarbonate 1,300 mg 09/10/24 09:00 09/23/24 09:40 Sodium Bicarbonate Tab 650 Mg Tablet PO 1,300 mg TID NAHOMI Administration Sucralfate 1,000 mg 09/07/24 11:30 09/23/24 05:38 Sucralfate Susp 100 Mg/Ml 10 Ml Udc PO 1,000 mg ACHS [facility] Administration Timolol Maleate 1 drop 09/07/24 09:35 09/22/24 20:41 Timolol Maleate 0.5% Op Soln 5 Ml Bottle EACH EYE 1 drop Q12HR NAHOMI Administration Radiology Results: ITS Impressions Abdomen/Pelvis CT 09/07/24 05:37 Impression: Minimal bilateral pleural effusions. Horseshoe kidney. Elbow X-Ray 09/17/24 12:16 IMPRESSION: 1. No fracture. Knee X-Ray 09/17/24 12:17 IMPRESSION: 1. Minimally displaced extra articular fracture of the proximal left fibular diaphysis. Correlate for any associated ankle pain and consider additional radiographs of the more distal tibia and fibula as clinically indicated. Tibia/Fibula X-Ray 09/17/24 15:54 IMPRESSION: 1. Fractures of proximal and distal fibula. 2. Comminuted fracture of distal tibia. Ankle X-Ray 09/17/24 15:55 IMPRESSION: Trimalleolar fracture of the left ankle, as detailed above. Foot X-Ray 09/21/24 17:53 IMPRESSION: 1. No fracture. Chest X-Ray 09/22/24 17:31 IMPRESSION: No acute cardiopulmonary process. Labs Labs: Laboratory Results - last 24 hr 09/22/24 09/22/24 09/22/24 11:40 17:01 20:41 WBC RBC Hgb Hct MCV MCH MCHC RDW Plt Count MPV Immature Gran % (Auto) Neut % (Auto) Lymph % (Auto) [place] % (Auto) Eos % (Auto) Baso % (Auto) Lymph # (Auto) [place] # (Auto) Eos # (Auto) Baso # (Auto) Abs Immat Gran (auto) Absolute Neuts (auto) Absolute Nucleated RBC Nucleated RBC % Atypical Lymphocytes Platelet Estimate % Immature Plt Fraction Polychromasia Anisocytosis Ovalocytes Schistocytes Sodium Potassium Chloride Carbon Dioxide Anion Gap BUN Creatinine Estim Creat Clear Calc Estimated GFR Glucose POC Capillary Glucose 291 H 310 H 308 H Calcium Phosphorus Magnesium Total Bilirubin AST ALT Alkaline Phosphatase Total Creatine Kinase Total Protein Albumin U Random Total Protein Urine Creatinine Protein/Creat Ratio 2 HIV 1&2 Ab/P24 Ag 4thGn 09/23/24 09/23/24 09/23/24 00:41 06:50 08:14 WBC 16.5 H RBC 3.61 L Hgb 10.8 L Hct 33.0 L MCV 91.4 D MCH 29.9 MCHC 32.7 RDW 16.0 H Plt Count 80 L MPV 12.8 H Immature Gran % (Auto) 2.4 H Neut % (Auto) 84.1 H Lymph % (Auto) 8.1 L [place] % (Auto) 5.2 Eos % (Auto) 0.0 Baso % (Auto) 0.2 Lymph # (Auto) 1.34 [place] # (Auto) 0.9 H Eos # (Auto) 0.0 Baso # (Auto) 0.0 Abs Immat Gran (auto) 0.40 H Absolute Neuts (auto) 13.9 H Absolute Nucleated RBC 0.030 H Nucleated RBC % 0.2 Atypical Lymphocytes Present Platelet Estimate Decreased % Immature Plt Fraction 6.6 Polychromasia 1+ Anisocytosis 1+ Ovalocytes 1+ Schistocytes None seen Sodium 133 L Potassium 3.9 Chloride 104 Carbon Dioxide 23 Anion Gap 6 BUN 70 H Creatinine 2.51 H Estim Creat Clear Calc 27 Estimated GFR 19 L Glucose 237 H POC Capillary Glucose 248 H Calcium 7.4 L Phosphorus 3.9 Magnesium 2.3 Total Bilirubin 1.0 AST 24 ALT 17 Alkaline Phosphatase 80 Total Creatine Kinase 26 L Total Protein 5.0 L Albumin 2.1 L U Random Total Protein 532 Urine Creatinine 19.8 Protein/Creat Ratio 2 26.87 H HIV 1&2 Ab/P24 Ag 4thGn Negative
--- NOTE | 2024-09-23 11:17 | P.PNIM_ITS ---
Progress Note: A&P Assessment and Plan (1) Fall from ground level: Code(s): W18.30XA - Fall on same level, unspecified, initial encounter Status: Acute Assessment and Plan: Patient had a fall while hospitalized on 09/17. Likely mechanical due to generalized muscle weakness. She slid down to the floor with PT in room. Rt elbow xray showing no fracture. Rt knee xray showing mild OA. She later had a right foot xray showing no fx She was found to have minimally displaced extra-articular fracture of the proximal left fibular diaphysis, distal fibular fx and comminuted fracture of the distal tibia. Left ankle xray again showing comminuted fracture of the anterior distal tibia that extends into the tibiotalar joint space, additional fracture deformity within the medial and lateral malleolus. The fracture within the medial malleolus extends into the joint space and articular surface of the tibiotalar joint. Ortho consulted and appreciate their input. Patient is not a surgical candidate. She was placed in fracture boot. PT/OT treatment with Ortho precautions. Will likely need SNF/rehab placement. Surgical intervention to be considered when her overall medical condition improves. Continue supportive care with analgesics. (2) Fracture of left proximal fibula: Code(s): S82.832A - Other fracture of upper and lower end of left fibula, initial encounter for closed fracture Status: Acute Assessment and Plan: As above. (3) Closed left ankle fracture: Qualifiers: Encounter type: initial encounter Qualified Code(s): S82.892A - Other fracture of left lower leg, initial encounter for closed fracture Code(s): S82.892A - Other fracture of left lower leg, initial encounter for closed fracture Status: Acute Assessment and Plan: As above. (4) Anemia: Code(s): D64.9 - Anemia, unspecified Status: Acute Assessment and Plan: Baseline hgb unclear. Hgb around 10 when she is not hospitalized. Hgb 10 on admission but dropped to 7-8 range. Last hgb was 7.2 on 09/17. Hgb rechecked on 09/21 and was critical at 3.9 (repeat was 3.8). Also with drop in plt count. No evidence of acute blood loss anemia. No schistocytes seen on CBC 09/22 or 09/23. Bili normal today. She received 4U PRBCs. Occult blood of stool negative on 09/09/24. B12/folate normal in July. On 09/12/24, Iron 36, TIBC 161 and iron sat 22%. Patient on apixaban for AFib and remains on this medication. Hgb climbed to 10.7 and unchanged on repeat. Etiology unclear but consider hemolysis. Acute GI bleed seems unlikely. Consider acute psoas bleed. Continue to follow H/H closely and transfuse to a stable hgb. Check CT A/P. Change to PPI since on Eliquis and steroids. (5) Acute on chronic renal failure: Code(s): N17.9 - Acute kidney failure, unspecified; N18.9 - Chronic kidney disease, unspecified Status: Acute Assessment and Plan: Patient with CKD stage 4. Baseline Cr 2.6-3.3 range. Patient with BUTCH with Cr 4.21 on admission She was treated with IV fluids with improvement. Patient has some form of autoimmune disease that probably is affecting her kidneys. Hepatitis panel negative. HIV negative. Immunoglobulin levels normal (IgM elevated). RF negative. DULCE positive and 1:1280 and nuclear, homogeneous pattern. C3 low, C4 normal and CH50 elevated. Anti-myeloperoxidase positive. Antiprotienase and GBM negative. Seen by Nephrology but no recent f/u from nephro. Consider SLE or microscopic polyangiitis. Consider also hydralaize induced SLE or drug-induced ANCA associated vasulitis due to hydralaize. Has nephrotic range proteinuria as well. On Prednisone 20mg which is new. She has refused albumin here. Start IV Bumex to improve fluid status. Check ESR, APAb, Lupus AC, cryoglobulins, dsDNA, histone Ab. Repeat complement, Check SPEP/UPEP Plan to wean off hydralaizine. Re-consult nephrology. Consider renal biopsy. (6) Enteritis: Code(s): K52.9 - Noninfective gastroenteritis and colitis, unspecified Status: Acute Assessment and Plan: Resolved * GI symptoms improving with no emesis or diarrhea episodes last few days. * Continues to tolerate meals fairly but with very poor appetite. * Data Deliverables Manager consulted. * Carafate with meals. Changed to PPI * Antiemetics PRN. * Seen by GI and no further recommendations for now, Colchicine dc'd. * Holding colchicine * C-diff negative. * Continue supportive care. (7) Atrial fibrillation: Code(s): I48.91 - Unspecified atrial fibrillation Status: Acute Assessment and Plan: Rate controlled Continue Eliquis and Metoprolol (8) Diabetes mellitus: Qualifiers: Diabetes mellitus complication detail: with diabetic retinopathy Diabetes mellitus complication status: with ophthalmic complications Diabetes mellitus longterm insulin use: without long term care phlebotomist use Diabetes mellitus macular edema: without macular edema Diabetes mellitus type: type 2 Diabetic retinopathy severity: with unspecified retinopathy severity Laterality: right Qualified Code(s): E11.319 - Type 2 diabetes mellitus with unspecified diabetic retinopathy without macular edema Code(s): E11.9 - Type 2 diabetes mellitus without complications Status: Chronic Assessment and Plan: HgbA1C is 5.3%. The patient's blood glucose was reviewed on 09/23 Glucose remains poorly controlled. Continue AccuCheks covering with sliding scale. Hypoglycemia protocol available as needed. Advance lantus (9) Hypertension: Code(s): I10 - Essential (primary) hypertension Status: Chronic Assessment and Plan: Home meds: Hydralazine 50mg TID, Metoprolol 100mg ER, Amlodipine 5mg Blood pressure not well controlled As above. Change Norvasc to Procardia XL. Wean down on hydralazine. Continue metoprolol. Bumex added. Consider clonidine but HR low-normal. Consider tenex or terazosin (10) Failure to thrive: Status: Acute Assessment and Plan: No s/s of overt malnutrition present. -very poor p.o. intake. * PT/OT evaluate and treat * school resource officer re consulted. * Daily weights. * Encouraged with meals and nutritional supplement. (11) Pericarditis: Code(s): I31.9 - Disease of pericardium, unspecified Status: Acute Assessment and Plan: Recently hospitalized for pericarditis, started on ibuprofen and colcicine 0.6mg BID and patient reports pain resolved --No NSAIDs for BUTCH/CKD --No colchine for GI symptoms --Started on Prednisone 40mg with a taper --Seen by Cardiology -- Repeat echocardiogram with no pericardial effusion. Pericarditis could be related to SLE. (12) Generalized muscle weakness: Code(s): M62.81 - Muscle weakness (generalized) Status: Acute Assessment and Plan: -PT/OT eval and treatment with Ortho restrictions. -fall precautions. (13) Urinary tract infection: Code(s): N39.0 - Urinary tract infection, site not specified Status: Inactive Assessment and Plan: UA on 09/07/2024- negative for acute UTI, repeat on 09/13/2024 with 2+ leukocyte esterase UCx 09/13 grew doss-sensitive EColi. She was treated with IV Rocephin and Cefdinir with abx therapy completed. Plan DVT prophylaxis - Miguelinaquis Code status - full Subjective Date/time seen: 09/23/24 11:17 Interval history: 63yo female with CKD, DM and anxiety here for n/v and diarrhea. Slept okay. No CP or SOB. Eating okay. left foot pain better. No n/v. Cough but mostly nonproductive. No diarrhea. Voiding well. Exam Narrative: AF 97.0 153/72 66 16 99% ra Gen - NARD Chest - bibasilar crackles. nml RR CV - RRR S1/S2 Abd - Soft, NT/ND, Positive BS Ext - diffuse edema with weeping noted from left hand. Left foot/ankle/lower leg in fracture boot Neuro - Alert and oriented x4. Nonfocal exam. Dysconjugate gaze. Psych - Nml mood and affect Skin - Warm and dry Objective Data Vital Signs Vital Signs: Vital Signs - 24 hr 09/22/24 12:00 09/22/24 12:00 09/22/24 14:57 Temperature 97.8 F Pulse Rate 72 59 L Respiratory Rate 18 Blood Pressure 193/105 H Pulse Oximetry 99 Oxygen Delivery Room Air Fraction of Inspired Oxygen 09/22/24 16:00 09/22/24 16:00 09/22/24 20:00 Temperature 97.8 F 97.1 F L Pulse Rate 69 80 67 Respiratory Rate 18 13 Blood Pressure 200/95 H 165/87 H Pulse Oximetry 99 100 Oxygen Delivery Fraction of Inspired Oxygen 09/22/24 20:01 09/22/24 20:40 09/22/24 21:14 Temperature Pulse Rate 72 68 Respiratory Rate 20 Blood Pressure Pulse Oximetry 98 98 Oxygen Delivery Room Air Room Air Fraction of Inspired Oxygen 21 21 09/22/24 21:14 09/22/24 21:23 09/22/24 23:47 Temperature 97.1 F L Pulse Rate 66 68 74 Respiratory Rate 20 20 14 Blood Pressure 176/89 H Pulse Oximetry 99 Oxygen Delivery Fraction of Inspired Oxygen 09/23/24 00:03 09/23/24 04:00 09/23/24 04:01 Temperature 97.4 F L Pulse Rate 65 68 58 L Respiratory Rate 13 Blood Pressure 171/86 H Pulse Oximetry 99 Oxygen Delivery Fraction of Inspired Oxygen 09/23/24 06:45 09/23/24 06:45 09/23/24 08:00 Temperature 97.0 F L Pulse Rate 86 86 70 Respiratory Rate 18 18 16 Blood Pressure 153/72 H Pulse Oximetry 96 99 Oxygen Delivery Room Air Fraction of Inspired Oxygen 09/23/24 09:41 Temperature Pulse Rate 66 Respiratory Rate Blood Pressure Pulse Oximetry Oxygen Delivery Fraction of Inspired Oxygen Intake/Output Intake/Output: Intake & Output 09/20/24 09/21/24 09/22/24 09/23/24 23:59 23:59 23:59 23:59 Intake Total 590 1770 710 480 Output Total 851 275 7238 850 Balance 490 970 -2340 -370 Meds/Results Medications: Active Medications Generic Name Dose Route Start Last Admin Trade Name Freq PRN Reason Stop Dose Admin Acetaminophen 650 mg 09/17/24 20:00 09/23/24 05:17 Acetaminophen 325 Mg Tablet PO 650 mg Q6HR NAHOMI Administration Albuterol/Ipratropium 3 ml 09/22/24 20:00 09/23/24 06:45 Ipratropium 0.5 Mg/Albuterol Sulfate 2.5 Mg Ampul.Neb 3 Ml INHALATION 3 ml Q6HRT NAHOMI Administration Amlodipine Besylate 5 mg 09/07/24 09:00 09/23/24 09:39 Amlodipine Besylate 5 Mg Tablet PO 5 mg QAM NAHOMI Administration Apixaban 2.5 mg 09/07/24 09:30 09/23/24 09:39 Apixaban 2.5 Mg Tablet PO 2.5 mg Q12HR NAHOMI Administration Artificial Tears 1 drop 09/07/24 09:35 09/23/24 09:43 Artificial Tears Ophth Soln 15 Ml Bottle RIGHT EYE 1 drop Q12HR NAHOMI Administration Brimonidine Tartrate 1 drop 09/07/24 09:30 09/23/24 09:43 Brimonidine Tartrate 0.2% Op Soln 5 Ml Btl EACH EYE 1 drop Q12HR NAHOMI Administration Dextrose 12.5 gm 09/07/24 09:15 Dextrose 50% 25 Gm/50 Ml Syringe IV PUSH PRN PRN Hypoglycemia Protocol Dorzolamide HCl 1 drop 09/07/24 09:30 09/23/24 09:43 Dorzolamide Hcl 2% Ophth Drops RIGHT EYE 1 drop Q12HR NAHOMI Administration Famotidine 20 mg 09/07/24 21:00 09/23/24 09:42 Famotidine 20 Mg/2 Ml Vial IV PUSH 20 mg Q12HR NAHOMI Administration Glucagon 1 mg 09/07/24 09:15 Glucagon For Inj 1 Mg Vial IM PRN PRN Hypoglycemia Protocol Glucose 15 gm 09/07/24 09:15 Glucose Oral Gel 15 Gm Of Glucse In 37.5 Gm Tube PO PRN PRN Hypoglycemia Protocol Guaifenesin/Dextromethorphan 5 ml 09/18/24 15:30 09/20/24 17:51 Guaifenesin/Dextromethorphan 10 Ml Udc PO 5 ml Q4H PRN Administration Cough Guaifenesin/Dextromethorphan 10 ml 09/22/24 16:35 09/23/24 09:42 Guaifenesin/Dextromethorphan 10 Ml Udc PO 10 ml Q4H NAHOMI Administration Hydralazine HCl 75 mg 09/22/24 22:00 09/23/24 05:38 Hydralazine Hcl 25 Mg Tablet PO 75 mg Q8HR NAHOMI Administration Dextrose 1,000 mls @ 100 mls/hr 09/07/24 09:15 Dextrose 5% 1,000 Ml IVPB PRN PRN Hypoglycemia Protocol Insulin Aspart 2 - 5 units 09/17/24 08:00 09/23/24 09:39 Insulin Aspart (*Bkc) 100 Units/Ml SUB-Q 2 units TIDWM NAHOMI Administration Protocol Insulin Glargine 10 units 09/22/24 21:00 09/22/24 20:48 Insulin Glargine (*Bkc) 100 Units/Ml SUB-Q 10 units HS NAHOMI Administration Loperamide HCl 2 mg 09/08/24 08:12 09/13/24 18:38 Loperamide Hcl 2 Mg Capsule PO 2 mg Q6HR PRN Administration Diarrhea Loratadine 5 mg 09/18/24 15:35 09/23/24 09:39 Loratadine 5 Mg Tablet PO 5 mg QAM NAHOMI Administration Metoprolol Succinate 100 mg 09/07/24 09:00 09/23/24 09:41 Metoprolol Succinate Ext Rel 100 Mg Tabcr PO 100 mg QAM NHAOMI Administration Morphine Sulfate 2 mg 09/17/24 19:48 09/20/24 17:57 Morphine Sulfate (*Crx) 2 Mg/Ml Inj IV PUSH 2 mg Q4H PRN Administration Pain Rated 7-10 Naloxone HCl 0.1 mg 09/07/24 08:19 Naloxone Hcl 0.4 Mg/Ml Vial IV PUSH Q2M PRN Opiate Reversal Ondansetron HCl 4 mg 09/07/24 09:15 09/13/24 14:52 Ondansetron Inj 4 Mg/2 Ml Vial IV PUSH 4 mg Q6H PRN Administration Nausea And Vomiting Oxycodone HCl 5 mg 09/17/24 19:48 09/20/24 12:47 Oxycodone Hcl (*Crx) 5 Mg Tab Ir PO 5 mg Q4H PRN Administration Pain Rated 4-6 Oxycodone HCl 10 mg 09/17/24 19:48 09/20/24 07:39 Oxycodone Hcl (*Crx) 5 Mg Tab Ir PO 10 mg Q4H PRN Administration Pain Rated 7-9 Polysaccharide Iron Complex 150 mg 09/07/24 17:00 09/23/24 09:46 Polysaccharide Iron Complex 150 Mg Capsule PO Not Given BIDWM NAHOMI Prednisone 20 mg 09/22/24 08:00 09/23/24 09:39 Prednisone 20 Mg Tablet PO 20 mg DAILY@0800 NAHOMI Administration Pseudoephedrine HCl 30 mg 09/18/24 15:31 09/20/24 07:54 Pseudoephedrine Hcl 30 Mg Tablet PO 30 mg Q4H PRN Administration Congestion Rosuvastatin Calcium 5 mg 09/07/24 09:00 09/23/24 09:40 Rosuvastatin 5 Mg Tablet PO 5 mg QAM NAHOMI Administration Sodium Bicarbonate 1,300 mg 09/10/24 09:00 09/23/24 09:40 Sodium Bicarbonate Tab 650 Mg Tablet PO 1,300 mg TID NAHOMI Administration Sucralfate 1,000 mg 09/07/24 11:30 09/23/24 05:38 Sucralfate Susp 100 Mg/Ml 10 Ml Udc PO 1,000 mg ACHS NAHOMI Administration Timolol Maleate 1 drop 09/07/24 09:35 09/22/24 20:41 Timolol Maleate 0.5% Op Soln 5 Ml Bottle EACH EYE 1 drop Q12HR NAHOMI Administration Radiology Results: ITS Impressions Abdomen/Pelvis CT 09/07/24 05:37 Impression: Minimal bilateral pleural effusions. Horseshoe kidney. Elbow X-Ray 09/17/24 12:16 IMPRESSION: 1. No fracture. Knee X-Ray 09/17/24 12:17 IMPRESSION: 1. Minimally displaced extra articular fracture of the proximal left fibular diaphysis. Correlate for any associated ankle pain and consider additional radiographs of the more distal tibia and fibula as clinically indicated. Tibia/Fibula X-Ray 09/17/24 15:54 IMPRESSION: 1. Fractures of proximal and distal fibula. 2. Comminuted fracture of distal tibia. Ankle X-Ray 09/17/24 15:55 IMPRESSION: Trimalleolar fracture of the left ankle, as detailed above. Foot X-Ray 09/21/24 17:53 IMPRESSION: 1. No fracture. Chest X-Ray 09/22/24 17:31 IMPRESSION: No acute cardiopulmonary process. Labs Labs: Laboratory Results - last 24 hr 09/22/24 09/22/24 09/22/24 11:40 17:01 20:41 WBC RBC Hgb Hct MCV MCH MCHC RDW Plt Count MPV Immature Gran % (Auto) Neut % (Auto) Lymph % (Auto) [place] % (Auto) Eos % (Auto) Baso % (Auto) Lymph # (Auto) [place] # (Auto) Eos # (Auto) Baso # (Auto) Abs Immat Gran (auto) Absolute Neuts (auto) Absolute Nucleated RBC Nucleated RBC % Atypical Lymphocytes Platelet Estimate % Immature Plt Fraction Polychromasia Anisocytosis Ovalocytes Schistocytes Sodium Potassium Chloride Carbon Dioxide Anion Gap BUN Creatinine Estim Creat Clear Calc Estimated GFR Glucose POC Capillary Glucose 291 H 310 H 308 H Calcium Phosphorus Magnesium Total Bilirubin AST ALT Alkaline Phosphatase Total Creatine Kinase Total Protein Albumin U Random Total Protein Urine Creatinine Protein/Creat Ratio 2 HIV 1&2 Ab/P24 Ag 4thGn 09/23/24 09/23/24 09/23/24 00:41 06:50 08:14 WBC 16.5 H RBC 3.61 L Hgb 10.8 L Hct 33.0 L MCV 91.4 D MCH 29.9 MCHC 32.7 RDW 16.0 H Plt Count 80 L MPV 12.8 H Immature Gran % (Auto) 2.4 H Neut % (Auto) 84.1 H Lymph % (Auto) 8.1 L [place] % (Auto) 5.2 Eos % (Auto) 0.0 Baso % (Auto) 0.2 Lymph # (Auto) 1.34 [place] # (Auto) 0.9 H Eos # (Auto) 0.0 Baso # (Auto) 0.0 Abs Immat Gran (auto) 0.40 H Absolute Neuts (auto) 13.9 H Absolute Nucleated RBC 0.030 H Nucleated RBC % 0.2 Atypical Lymphocytes Present Platelet Estimate Decreased % Immature Plt Fraction 6.6 Polychromasia 1+ Anisocytosis 1+ Ovalocytes 1+ Schistocytes None seen Sodium 133 L Potassium 3.9 Chloride 104 Carbon Dioxide 23 Anion Gap 6 BUN 70 H Creatinine 2.51 H Estim Creat Clear Calc 27 Estimated GFR 19 L Glucose 237 H POC Capillary Glucose 248 H Calcium 7.4 L Phosphorus 3.9 Magnesium 2.3 Total Bilirubin 1.0 AST 24 ALT 17 Alkaline Phosphatase 80 Total Creatine Kinase 26 L Total Protein 5.0 L Albumin 2.1 L U Random Total Protein 532 Urine Creatinine 19.8 Protein/Creat Ratio 2 26.87 H HIV 1&2 Ab/P24 Ag 4thGn Negative
[2024-09-23 12:00] LABS: Glucose Point of Care 258 mg/dl (65-105)
[2024-09-23] MEDS: TIMOLOL MALEATE 0.5% OP SOLN 5 ML BOTTLE 1 DROP EACH EYE ×2 (14:19→20:17)
[2024-09-23] MEDS: BUMETANIDE INJ 1 MG/4 ML VIAL 2 MG IV PUSH ×2 (14:19→17:13)
[2024-09-23 16:39] LABS: Glucose Point of Care 288 mg/dl (65-105)
[2024-09-23] MEDS: NIFEdipine 30 MG TAB.ER.24 60 MG PO (19:58)
[2024-09-23] MEDS: PANTOPRAZOLE SODIUM IV 40 MG VIAL IV PUSH (19:59)
[2024-09-23] MEDS: INSULIN GLARGINE (*BKC) 100 UNITS/ML 18 UNITS SUB-Q (20:13)
[2024-09-23] MEDS: hydrALAZINE HCL 25 MG TABLET PO (20:23)
[2024-09-23 21:13] LABS: Glucose Point of Care 324 mg/dl (65-105)
[2024-09-23 21:36] LABS: Erythrocyte Sedimentation Rate 24 mm/hr (0-20)
[2024-09-24] VITALS (10 sets, daily range): BP systolic 113–148; BP diastolic 57–81; PULSE 60–76; RESP 14–18; TEMP 36–36.7; O2SAT 98–100
[2024-09-24] MEDS: IPRATROPIUM 0.5 MG/ALBUTEROL SULFATE 2.5 MG AMPUL.NEB 3 ML INHALATION (02:41)
[2024-09-24] MEDS: SUCRALFATE SUSP 100 MG/ML 10 ML UDC 1000 MG PO ×4 (06:00→20:52)
[2024-09-24] MEDS: guaiFENesin/DEXTROMETHORPHAN 10 ML UDC PO (06:01)
[2024-09-24] MEDS: ACETAMINOPHEN 325 MG TABLET 650 MG PO ×4 (06:01→22:26)
[2024-09-24] MEDS: hydrALAZINE HCL 25 MG TABLET PO ×2 (06:01→13:21)
[2024-09-24 07:36] LABS: Alanine Aminotransferase 18 U/L (6-35); Albumin Level 2.2 g/dL (3.5-5.1); Alkaline Phosphatase 91 U/L (38-126); Anion Gap 8 mmol/L (4-12); Aspartate Amino Transferase 23 U/L (14-36); Bilirubin,Total 1.1 mg/dL (0.2-1.3); Blood Urea Nitrogen 74 mg/dL (7-17); Calcium 7.4 mg/dL (8.4-10.2); Carbon Dioxide 24 mmol/L (22-30); Chloride 101 mmol/L (98-107); Estimated CRCL calculation 25 ml/min; Estimated Glomerular Filt Rate 18; Glucose 265 mg/dL (65-110); Magnesium 2.2 mg/dL (1.6-2.3); Phosphorus 4.1 mg/dL (2.5-4.5); Potassium 3.8 mmol/L (3.4-5.0); Sodium 133 mmol/L (137-145)
[2024-09-24 07:37] LABS: Basophils Percent Auto 0.3 % (0.2-1.2); Hematocrit 32.6 % (37.0-47.0); Hemoglobin 10.5 g/dL (12.0-15.0); Immature Granulocyte Absolute 0.28 K/mm3 (0.00-0.031); Immature Granulocyte Percent A 1.9 % (0-0.5); Lymphocytes Absolute Auto 1.09 K/mm3 (0.9-3.2); Lymphocytes Percent Auto 7.4 % (18.3-44.2); Mean Corpuscular HGB Conc 32.2 g/dl (32-36); Mean Corpuscular Hemoglobin 28.8 pg (26-34); Mean Corpuscular Volume 89.6 fl (80-100); Mean Platelet Volume 12.4 fl (7.4-10.4); Monocytes Absolute Auto 0.9 K/mm3 (0.1-0.6); Neutrophils Absolute Auto 12.4 K/mm3 (1.3-6.7); Neutrophils Percent Auto 84.4 % (45.5-73.1); Platelet Count Result 102 k/mm3 (150-375); Red Blood Count 3.64 M/mm3 (4.2-5.4); Red Cell Distribution Width 15.7 % (11.5-14.5); White Blood Count 14.7 K/mm3 (4.5-10.0)
[2024-09-24 07:58] LABS: Glucose Point of Care 247 mg/dl (65-105)
[2024-09-24 08:11] LABS: Lipase 840 U/L (23-300)
[2024-09-24] MEDS: INSULIN ASPART (*BKC) 100 UNITS/ML SUB-Q ×3 (08:13→17:02)
[2024-09-24] MEDS: predniSONE 20 MG TABLET PO (08:14)
[2024-09-24] MEDS: PANTOPRAZOLE SODIUM IV 40 MG VIAL IV PUSH ×2 (08:14→20:48)
[2024-09-24] MEDS: NIFEdipine 30 MG TAB.ER.24 60 MG PO (08:14)
[2024-09-24] MEDS: guaiFENesin 12 HR 600 MG TABCR PO ×2 (08:14→21:03)
[2024-09-24] MEDS: BUMETANIDE INJ 1 MG/4 ML VIAL 2 MG IV PUSH ×2 (08:14→16:13)
[2024-09-24] MEDS: ROSUVASTATIN 5 MG TABLET PO (08:15)
[2024-09-24] MEDS: SODIUM BICARBONATE TAB 650 MG TABLET 1300 MG PO ×3 (08:15→16:13)
[2024-09-24] MEDS: METOPROLOL SUCCINATE EXT REL 100 MG TABCR PO (08:15)
[2024-09-24] MEDS: LORATADINE 5 MG TABLET PO (08:15)
[2024-09-24] MEDS: APIXABAN 2.5 MG TABLET PO ×2 (08:15→21:03)
[2024-09-24] MEDS: ARTIFICIAL TEARS OPHTH SOLN 15 ML BOTTLE 1 DROP RIGHT EYE ×2 (08:15→21:03)
[2024-09-24] MEDS: DORZOLAMIDE HCL 2% OPHTH DROPS 1 DROP RIGHT EYE ×2 (08:16→21:06)
[2024-09-24] MEDS: TIMOLOL MALEATE 0.5% OP SOLN 5 ML BOTTLE 1 DROP EACH EYE ×2 (08:16→21:06)
[2024-09-24] MEDS: BRIMONIDINE TARTRATE 0.2% OP SOLN 5 ML BTL 1 DROP EACH EYE ×2 (08:16→21:06)
--- NOTE | 2024-09-24 09:51 | P.PNNP_ITS ---
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 * however, would need to be off Eliquis for a few days prior to such an intervention/procedure (2) Chronic kidney disease, stage IV (severe): Code(s): N18.4 - Chronic kidney disease, stage 4 (severe) Status: Chronic Assessment and Plan: * baseline creatinine runs ~ 2.5 - 3.2mg/dl per review of outpatient labs done by her primary direct entry midwife * secondary to hypertension, diabetes, vascular disease, and age-related change * noted on last appointment (April 2024) discussions regarding [employer]/dialysis * follows with Dr. Shook & Rosa Delgado, AMA (3) Hypertension: Code(s): I10 - Essential (primary) hypertension Status: Chronic Assessment and Plan: * follow trend - reasonable control at this time * had been quite elevated previously * continue to monitor hemodynamics (4) Anemia: Code(s): D64.9 - Anemia, unspecified Status: Acute Assessment and Plan: * chronic element related to CKD * however, dropped to 3.8 - 3.9 on 09/21 * no evidence of acute blood loss anemia * no schistocytes seen * bilirubin normal * s/p 4U PRBCs transfusion * H/H relatively stable at this time * recent CT C/A/P with no evidence of acute blood loss but shows anasarca, possible pancreatitis and fecal impaction * occult blood of stool negative * anemia studies noted: * B12/folate normal in July 2024 * adequate iron stores (by 09/12 testing) * follow trend of H/H (5) Fracture of left proximal fibula: Code(s): S82.832A - Other fracture of upper and lower end of left fibula, initial encounter for closed fracture Status: Acute Assessment and Plan: * imaging with minimally displaced extra-articular fracture of the proximal left fibular diaphysis, distal fibular fx and comminuted fracture of the distal tibia * Ortho recommendations noted * fracture boot in place * PT/OT with precautions (6) Closed left ankle fracture: Qualifiers: Encounter type: initial encounter Qualified Code(s): S82.892A - Other fracture of left lower leg, initial encounter for closed fracture Code(s): S82.892A - Other fracture of left lower leg, initial encounter for closed fracture Status: Acute Assessment and Plan: * Left ankle xray noted: * comminuted fracture of the anterior distal tibia that extends into the tibiotalar joint space, additional fracture deformity within the medial and lateral malleolus. The fracture within the medial malleolus extends into the joint space and articular surface of the tibiotalar joint * fracture boot in place * Orthopedic recommendations noted * PT/OT with precautions (7) Atrial fibrillation: Code(s): I48.91 - Unspecified atrial fibrillation Status: Acute Assessment and Plan: * rate controlled * continue Eliquis and metoprolol (8) Pericarditis: Code(s): I31.9 - Disease of pericardium, unspecified Status: Acute Assessment and Plan: * as noted on previous hospitalization * was on ibuprofen and colcicine * discontinued due to BUTCH + CKD * on prednisone taper * repeat echocardiogram with no pericardial effusion. * related to #1 (?). (9) Urinary tract infection: Code(s): N39.0 - Urinary tract infection, site not specified Status: Inactive Assessment and Plan: * recent UA suggestive * urine culture with E. Coli * complete antibiotic therapy (10) Diabetes mellitus: Qualifiers: Diabetes mellitus complication detail: with diabetic retinopathy Diabetes mellitus complication status: with ophthalmic complications Diabetes mellitus terminal clerk insulin use: without retirement use Diabetes mellitus macular edema: without macular edema Diabetes mellitus type: type 2 Diabetic retinopathy severity: with unspecified retinopathy severity Laterality: right Qualified Code(s): E11.319 - Type 2 diabetes mellitus with unspecified diabetic retinopathy without macular edema Code(s): E11.9 - Type 2 diabetes mellitus without complications Status: Chronic Assessment and Plan: * follow accu-cheks * glycemic control per hospitalist Case discussed with Dr. Lester. Long extensive discussion ( greater than 25 minutes) with both the patient at bedside as well as her , Jonatan, by phone regarding her acute kidney injury /acute renal failure and the positive serologies as noted above with a concern for the possibility of some type of autoimmune disorder or possible vasculitis. I discussed in detail what the procedure would involve, the risks, the benefits, the pros, cons with both the patient as well as her by phone. Her for me they will discuss things further when he comes to the hospital later this afternoon and let us know if they are willing to proceed with such an intervention. Will continue to follow. Subjective Date/time seen: 09/24/24 09:51 Interval history: Follow-up for acute kidney injury on top of chronic kidney disease. Chart reviewed since admission (covering for Dr. Shook) -- noted issues with left proximal fibula requiring fracture boot (not a good surgical candidate) along with severe anemia requiring PRBC transfusions (Hgb dropped to 3.8!); renal function has been fluctuating since admission as well with recent positive serological studies noted; no apparent distress voiced at the time of my visit. Exam Narrative: General: WD/WN female in NAD Heart: normal S1 and S2; no rub Lungs: clear to auscultation Abdomen: soft, nontender, nondistended, positive bowel sounds Extremities: no cyanosis or clubbing; diffuse edema (1 - 2+); left leg boot in place Skin: warm and dry Objective Data Vital Signs Vital Signs: Vital Signs Temp Pulse Resp BP Pulse Ox O2 Del Method FiO2 09/24/24 08:28 98 Room Air 09/24/24 08:15 60 09/24/24 08:00 76 09/24/24 08:00 97.2 F L 66 18 123/68 100 09/24/24 04:00 98.1 F 73 14 148/81 H 100 09/24/24 04:00 64 09/24/24 02:42 72 18 09/24/24 00:00 66 09/23/24 23:43 97.2 F L 74 20 142/89 H 100 09/23/24 20:31 65 18 09/23/24 20:17 68 18 09/23/24 20:17 99 Room Air 09/23/24 20:00 97.2 F L 69 16 148/85 H 100 09/23/24 20:00 65 18 99 Room Air 21 09/23/24 16:00 59 L 09/23/24 15:58 97.1 F L 69 16 146/81 H 100 Intake/Output Intake/Output: Intake & Output 09/21/24 09/22/24 09/23/24 09/24/24 23:59 23:59 23:59 23:59 Intake Total 8516 165 5021 480 Output Total 800 3050 850 Balance 970 -2340 350 480 Meds/Results Medications: Active Medications Generic Name Dose Route Start Last Admin Trade Name Freq PRN Reason Stop Dose Admin Acetaminophen 650 mg 09/17/24 20:00 09/24/24 11:18 Acetaminophen 325 Mg Tablet PO 650 mg Q6HR NAHOMI Administration Hydrocodone Bitart/Acetaminophen 1 tab 09/23/24 11:21 Hydrocodone/Acetaminophen (*Crx) 5-325 Mg Tablet PO Q6H PRN Pain Rated 4-6 Albuterol/Ipratropium 3 ml 09/24/24 07:54 Ipratropium 0.5 Mg/Albuterol Sulfate 2.5 Mg Ampul.Neb 3 Ml INHALATION Q6HRT PRN Shortness Of Breath Apixaban 2.5 mg 09/07/24 09:30 09/24/24 08:15 Apixaban 2.5 Mg Tablet PO 2.5 mg Q12HR NAHOMI Administration Artificial Tears 1 drop 09/07/24 09:35 09/24/24 08:15 Artificial Tears Ophth Soln 15 Ml Bottle RIGHT EYE 1 drop Q12HR NAHOMI Administration Brimonidine Tartrate 1 drop 09/07/24 09:30 09/24/24 08:16 Brimonidine Tartrate 0.2% Op Soln 5 Ml Btl EACH EYE 1 drop Q12HR NAHOMI Administration Bumetanide 2 mg 09/23/24 11:25 09/24/24 08:14 Bumetanide Inj 1 Mg/4 Ml Vial IV PUSH 2 mg BID NAHOMI Administration Dextrose 12.5 gm 09/07/24 09:15 Dextrose 50% 25 Gm/50 Ml Syringe IV PUSH PRN PRN Hypoglycemia Protocol Dorzolamide HCl 1 drop 09/07/24 09:30 09/24/24 08:16 Dorzolamide Hcl 2% Ophth Drops RIGHT EYE 1 drop Q12HR NAHOMI Administration Glucagon 1 mg 09/07/24 09:15 Glucagon For Inj 1 Mg Vial IM PRN PRN Hypoglycemia Protocol Glucose 15 gm 09/07/24 09:15 Glucose Oral Gel 15 Gm Of Glucse In 37.5 Gm Tube PO PRN PRN Hypoglycemia Protocol Guaifenesin 600 mg 09/24/24 09:00 09/24/24 08:14 Guaifenesin 12 Hr 600 Mg Tabcr PO 600 mg Q12HR NAHOIM Administration Guaifenesin/Dextromethorphan 5 ml 09/18/24 15:30 09/20/24 17:51 Guaifenesin/Dextromethorphan 10 Ml Udc PO 5 ml Q4H PRN Administration Cough Hydralazine HCl 25 mg 09/23/24 22:00 09/24/24 13:21 Hydralazine Hcl 25 Mg Tablet PO 25 mg Q8HR NAHOMI Administration Dextrose 1,000 mls @ 100 mls/hr 09/07/24 09:15 Dextrose 5% 1,000 Ml IVPB PRN PRN Hypoglycemia Protocol Insulin Aspart 2 - 5 units 09/17/24 08:00 09/24/24 12:39 Insulin Aspart (*Bkc) 100 Units/Ml SUB-Q 3 units TIDWM NAHOMI Administration Protocol Insulin Glargine 18 units 09/23/24 21:00 09/23/24 20:13 Insulin Glargine (*Bkc) 100 Units/Ml SUB-Q 18 units HS NAHOMI Administration Loperamide HCl 2 mg 09/08/24 08:12 09/13/24 18:38 Loperamide Hcl 2 Mg Capsule PO 2 mg Q6HR PRN Administration Diarrhea Loratadine 5 mg 09/18/24 15:35 09/24/24 08:15 Loratadine 5 Mg Tablet PO 5 mg QAM NAHOMI Administration Metoprolol Succinate 100 mg 09/07/24 09:00 09/24/24 08:15 Metoprolol Succinate Ext Rel 100 Mg Tabcr PO 100 mg QAM NAHOMI Administration Naloxone HCl 0.1 mg 09/07/24 08:19 Naloxone Hcl 0.4 Mg/Ml Vial IV PUSH Q2M PRN Opiate Reversal Nifedipine 60 mg 09/23/24 19:15 09/24/24 08:14 Nifedipine 30 Mg Tab.Er.24 PO 60 mg QAM NAHOMI Administration Ondansetron HCl 4 mg 09/07/24 09:15 09/13/24 14:52 Ondansetron Inj 4 Mg/2 Ml Vial IV PUSH 4 mg Q6H PRN Administration Nausea And Vomiting Oxycodone HCl 5 mg 09/17/24 19:48 09/20/24 12:47 Oxycodone Hcl (*Crx) 5 Mg Tab Ir PO 5 mg Q4H PRN Administration Pain Rated 7-10 Pantoprazole Sodium 40 mg 09/23/24 21:00 09/24/24 08:14 Pantoprazole Sodium Iv 40 Mg Vial IV PUSH 40 mg Q12HR NAHOMI Administration Polysaccharide Iron Complex 150 mg 09/07/24 17:00 09/24/24 08:18 Polysaccharide Iron Complex 150 Mg Capsule PO Not Given BIDWM NAHOMI Prednisone 20 mg 09/22/24 08:00 09/24/24 08:14 Prednisone 20 Mg Tablet PO 20 mg DAILY@0800 [facility] Administration Rosuvastatin Calcium 5 mg 09/07/24 09:00 09/24/24 08:15 Rosuvastatin 5 Mg Tablet PO 5 mg QAM [facility] Administration Sodium Bicarbonate 1,300 mg 09/10/24 09:00 09/24/24 12:38 Sodium Bicarbonate Tab 650 Mg Tablet PO 1,300 mg TID NAHOMI Administration Sucralfate 1,000 mg 09/07/24 11:30 09/24/24 11:18 Sucralfate Susp 100 Mg/Ml 10 Ml Udc PO 1,000 mg ACHS [facility] Administration Timolol Maleate 1 drop 09/07/24 09:35 09/24/24 08:16 Timolol Maleate 0.5% Op Soln 5 Ml Bottle EACH EYE 1 drop Q12HR NAHOMI Administration Radiology Results: ITS Impressions Abdomen/Pelvis CT 09/07/24 05:37 Impression: Minimal bilateral pleural effusions. Horseshoe kidney. Elbow X-Ray 09/17/24 12:16 IMPRESSION: 1. No fracture. Knee X-Ray 09/17/24 12:17 IMPRESSION: 1. Minimally displaced extra articular fracture of the proximal left fibular diaphysis. Correlate for any associated ankle pain and consider additional radiographs of the more distal tibia and fibula as clinically indicated. Tibia/Fibula X-Ray 09/17/24 15:54 IMPRESSION: 1. Fractures of proximal and distal fibula. 2. Comminuted fracture of distal tibia. Ankle X-Ray 09/17/24 15:55 IMPRESSION: Trimalleolar fracture of the left ankle, as detailed above. Foot X-Ray 09/21/24 17:53 IMPRESSION: 1. No fracture. Chest X-Ray 09/22/24 17:31 IMPRESSION: No acute cardiopulmonary process. Chest/Abdomen/Pelvis CT 09/23/24 22:42 IMPRESSION: Small left and trace right pleural effusions. Pancreatic head edema and peripancreatic inflammatory changes suggestive of acute interstitial pancreatitis. Correlate with pancreatic labs. Possible fecal impaction. Small volume ascites. Diffuse body wall edema. Labs Labs: Laboratory Results - last 24 hr 09/24/24 06:58 WBC 14.7 H Hgb 10.5 L Hct 32.6 L Plt Count 102 L Sodium 133 L Potassium 3.8 Chloride 101 Carbon Dioxide 24 Anion Gap 8 BUN 74 H Creatinine 2.68 H Estim Creat Clear Calc 25 Estimated GFR 18 L Glucose 265 H Calcium 7.4 L Phosphorus 4.1 Magnesium 2.2 Total Bilirubin 1.1 AST 23 ALT 18 Alkaline Phosphatase 91 Total Protein 5.0 L Albumin 2.2 L
[2024-09-24 11:34] LABS: Glucose Point of Care 269 mg/dl (65-105)
--- NOTE | 2024-09-24 14:04 | PCOTNOTE ---
Patient refused to participate this afternoon. Patient states, she did therapy earlier, I just want to rest and be comfortable, no more for today .
--- NOTE | 2024-09-24 15:56 | PM.IMPN ---
Progress Note: A&P Assessment and Plan (1) Fall from ground level: Code(s): W18.30XA - Fall on same level, unspecified, initial encounter Status: Acute Assessment and Plan: Patient had a fall while hospitalized on 09/17. Likely mechanical due to generalized muscle weakness. She slid down to the floor with PT in room. Rt elbow xray showing no fracture. Rt knee xray showing mild OA. She later had a right foot xray showing no fx She was found to have minimally displaced extra-articular fracture of the proximal left fibular diaphysis, distal fibular fx and comminuted fracture of the distal tibia. Left ankle xray again showing comminuted fracture of the anterior distal tibia that extends into the tibiotalar joint space, additional fracture deformity within the medial and lateral malleolus. The fracture within the medial malleolus extends into the joint space and articular surface of the tibiotalar joint. Ortho consulted and appreciate their input. Patient is not a surgical candidate. She was placed in fracture boot. PT/OT treatment with Ortho precautions. Will likely need SNF/rehab placement. Surgical intervention to be considered when her overall medical condition improves. Continue supportive care with analgesics. (2) Fracture of left proximal fibula: Code(s): S82.832A - Other fracture of upper and lower end of left fibula, initial encounter for closed fracture Status: Acute Assessment and Plan: As above. (3) Closed left ankle fracture: Qualifiers: Encounter type: initial encounter Qualified Code(s): S82.892A - Other fracture of left lower leg, initial encounter for closed fracture Code(s): S82.892A - Other fracture of left lower leg, initial encounter for closed fracture Status: Acute Assessment and Plan: As above. (4) Anemia: Code(s): D64.9 - Anemia, unspecified Status: Acute Assessment and Plan: Baseline hgb unclear. Hgb around 10 when she is not hospitalized. Hgb 10 on admission but dropped to 7-8 range. Last hgb was 7.2 on 09/17. Hgb rechecked on 09/21 and was critical at 3.9 (repeat was 3.8). Also with drop in plt count. No evidence of acute blood loss anemia. No schistocytes seen on CBC 09/22 or 09/23. Bili normal She received 4U PRBCs. CT Ch/A/P showing no evidence of acute blood loss but shows anasarca, possible pancreatitis and fecal impaction. Occult blood of stool negative on 09/09/24. B12/folate normal in July. On 09/12/24, Iron 36, TIBC 161 and iron sat 22%. Patient on apixaban for AFib and remains on this medication. Hgb climbed to 10.7 and unchanged on repeat. Etiology unclear but consider hemolysis. Acute GI bleed seems unlikely. Continue to follow H/H closely and transfuse to a stable hgb. Continue PPI (5) Acute on chronic renal failure: Code(s): N17.9 - Acute kidney failure, unspecified; N18.9 - Chronic kidney disease, unspecified Status: Acute Assessment and Plan: Patient with CKD stage 4. Baseline Cr 2.6-3.3 range. Patient with BUTCH with Cr 4.21 on admission She was treated with IV fluids with improvement. Patient has some form of autoimmune disease that probably is affecting her kidneys. Hepatitis panel negative. HIV negative. Immunoglobulin levels normal (IgM elevated). RF negative. DULCE positive and 1:1280 and nuclear, homogeneous pattern. C3 low, C4 normal and CH50 elevated. Anti-myeloperoxidase positive. Antiprotienase and GBM negative. Seen by Nephrology but no recent f/u from nephro. Consider SLE or microscopic polyangiitis. Consider also hydralazine induced SLE or drug-induced ANCA associated vasulitis due to hydralazine. Has nephrotic range proteinuria as well. On Prednisone 20mg which is new. She has refused albumin here. ESR 24. C4 low. Good UOP with Bumex. Continue IV Bumex to improve fluid status. BP normal now so will stop hydralazine. Discussed with nephrology. Consider renal biopsy. (6) Enteritis: Code(s): K52.9 - Noninfective gastroenteritis and colitis, unspecified Status: Acute Assessment and Plan: Resolved Continues to tolerate meals fairly but with very poor appetite. Software Technician consulted. Carafate with meals. Changed to PPI Antiemetics PRN. Seen by GI and no further recommendations for now, Colchicine dc'd. C-diff negative. Continue supportive care. (7) Atrial fibrillation: Code(s): I48.91 - Unspecified atrial fibrillation Status: Acute Assessment and Plan: Rate controlled Continue Eliquis and Metoprolol (8) Diabetes mellitus: Qualifiers: Diabetes mellitus complication detail: with diabetic retinopathy Diabetes mellitus complication status: with ophthalmic complications Diabetes mellitus exterminator insulin use: without exterminator use Diabetes mellitus macular edema: without macular edema Diabetes mellitus type: type 2 Diabetic retinopathy severity: with unspecified retinopathy severity Laterality: right Qualified Code(s): E11.319 - Type 2 diabetes mellitus with unspecified diabetic retinopathy without macular edema Code(s): E11.9 - Type 2 diabetes mellitus without complications Status: Chronic Assessment and Plan: HgbA1C is 5.3%. The patient's blood glucose was reviewed on 09/24 Glucose remains poorly controlled. Continue AccuCheks covering with sliding scale. Hypoglycemia protocol available as needed. Advance lantus again (9) Hypertension: Code(s): I10 - Essential (primary) hypertension Status: Chronic Assessment and Plan: Home meds: Hydralazine 50mg TID, Metoprolol 100mg ER, Amlodipine 5mg Blood pressure was not well controlled but better now As above. Changed Norvasc to Procardia XL. Continue metoprolol. Will stop hydralazine Bumex added. 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 Daily weights. Encouraged with meals and nutritional supplement. (11) Pericarditis: Code(s): I31.9 - Disease of pericardium, unspecified Status: Acute Assessment and Plan: Recently hospitalized for pericarditis, started on ibuprofen and colcicine 0.6mg BID and patient reports pain resolved --No NSAIDs for BUTCH/CKD --No colchine for GI symptoms --Started on Prednisone 40mg with a taper --Seen by Cardiology -- Repeat echocardiogram with no pericardial effusion. Pericarditis could be related to SLE. (12) Generalized muscle weakness: Code(s): M62.81 - Muscle weakness (generalized) Status: Acute Assessment and Plan: PT/OT eval and treatment with Ortho restrictions. Total CK normal. Fall precautions. (13) Urinary tract infection: Code(s): N39.0 - Urinary tract infection, site not specified Status: Inactive Assessment and Plan: UA on 09/07/2024- negative for acute UTI, repeat on 09/13/2024 with 2+ leukocyte esterase UCx 09/13 grew doss-sensitive EColi. She was treated with IV Rocephin and Cefdinir with abx therapy completed. Plan Fecal impaction - noted by CT scan. Start Miralax. Dulcolax suppostories for a few days Possible pancreatitis - CT evidence of pancreatitis. Lipase 840. Patient without and symptoms to suggest this. Pancreatic edema from anasarca? GB absent and LFTs okay so don't believe choledocholithiasis. Check TG level. Follow lipase. Decrease diet to clears if lipase climbing DVT prophylaxis - Eliquis Code status - full Subjective Date/time seen: 09/24/24 15:56 Interval history: 63yo female with CKD, DM and anxiety here for n/v and diarrhea. Slept well. No n/v/d. Ankle pain controlled with current analgesics. Eating okay. No CP or SOB. No abd pain. Exam Narrative: AF 96.8 124/58 72 18 100% ra Gen - NARD Chest - CTA bilaterally, nml RR CV - RRR S1/S2 Abd - Soft, NT/ND, Positive BS Ext - diffuse edema but improved. Left foot/ankle/lower leg in fracture boot Psych - Nml mood and affect Skin - Warm and dry Objective Data Vital Signs Vital Signs: Vital Signs - 24 hr 09/23/24 15:58 09/23/24 16:00 09/23/24 20:00 Temperature 97.1 F L Pulse Rate 69 59 L 65 Respiratory Rate 16 18 Blood Pressure 146/81 H Pulse Oximetry 100 99 Oxygen Delivery Room Air Fraction of Inspired Oxygen 21 09/23/24 20:00 09/23/24 20:17 09/23/24 20:17 Temperature 97.2 F L Pulse Rate 69 68 Respiratory Rate 16 18 Blood Pressure 148/85 H Pulse Oximetry 100 99 Oxygen Delivery Room Air Fraction of Inspired Oxygen 09/23/24 20:31 09/23/24 23:43 09/24/24 00:00 Temperature 97.2 F L Pulse Rate 65 74 66 Respiratory Rate 18 20 Blood Pressure 142/89 H Pulse Oximetry 100 Oxygen Delivery Fraction of Inspired Oxygen 09/24/24 02:42 09/24/24 04:00 09/24/24 04:00 Temperature 98.1 F Pulse Rate 72 64 73 Respiratory Rate 18 14 Blood Pressure 148/81 H Pulse Oximetry 100 Oxygen Delivery Fraction of Inspired Oxygen 09/24/24 08:00 09/24/24 08:00 09/24/24 08:15 Temperature 97.2 F L Pulse Rate 66 76 60 Respiratory Rate 18 Blood Pressure 123/68 Pulse Oximetry 100 Oxygen Delivery Fraction of Inspired Oxygen 09/24/24 08:28 09/24/24 12:00 09/24/24 12:00 Temperature 96.8 F L Pulse Rate 70 72 Respiratory Rate 18 Blood Pressure 124/58 L Pulse Oximetry 98 100 Oxygen Delivery Room Air Fraction of Inspired Oxygen Intake/Output Intake/Output: Intake & Output 09/21/24 09/22/24 09/23/24 09/24/24 23:59 23:59 23:59 23:59 Intake Total 8648 852 1099 480 Output Total 800 3050 850 Balance 970 -2340 350 480 Meds/Results Medications: Active Medications Generic Name Dose Route Start Last Admin Trade Name Freq PRN Reason Stop Dose Admin Acetaminophen 650 mg 09/17/24 20:00 09/24/24 11:18 Acetaminophen 325 Mg Tablet PO 650 mg Q6HR NAHOMI Administration Hydrocodone Bitart/Acetaminophen 1 tab 09/23/24 11:21 Hydrocodone/Acetaminophen (*Crx) 5-325 Mg Tablet PO Q6H PRN Pain Rated 4-6 Albuterol/Ipratropium 3 ml 09/24/24 07:54 Ipratropium 0.5 Mg/Albuterol Sulfate 2.5 Mg Ampul.Neb 3 Ml INHALATION Q6HRT PRN Shortness Of Breath Apixaban 2.5 mg 09/07/24 09:30 09/24/24 08:15 Apixaban 2.5 Mg Tablet PO 2.5 mg Q12HR NAHOMI Administration Artificial Tears 1 drop 09/07/24 09:35 09/24/24 08:15 Artificial Tears Ophth Soln 15 Ml Bottle RIGHT EYE 1 drop Q12HR NAHOMI Administration Brimonidine Tartrate 1 drop 09/07/24 09:30 09/24/24 08:16 Brimonidine Tartrate 0.2% Op Soln 5 Ml Btl EACH EYE 1 drop Q12HR NAHOMI Administration Bumetanide 2 mg 09/23/24 11:25 09/24/24 08:14 Bumetanide Inj 1 Mg/4 Ml Vial IV PUSH 2 mg BID NAHOMI Administration Dextrose 12.5 gm 09/07/24 09:15 Dextrose 50% 25 Gm/50 Ml Syringe IV PUSH PRN PRN Hypoglycemia Protocol Dorzolamide HCl 1 drop 09/07/24 09:30 09/24/24 08:16 Dorzolamide Hcl 2% Ophth Drops RIGHT EYE 1 drop Q12HR NAHOMI Administration Glucagon 1 mg 09/07/24 09:15 Glucagon For Inj 1 Mg Vial IM PRN PRN Hypoglycemia Protocol Glucose 15 gm 09/07/24 09:15 Glucose Oral Gel 15 Gm Of Glucse In 37.5 Gm Tube PO PRN PRN Hypoglycemia Protocol Guaifenesin 600 mg 09/24/24 09:00 09/24/24 08:14 Guaifenesin 12 Hr 600 Mg Tabcr PO 600 mg Q12HR NAHOMI Administration Guaifenesin/Dextromethorphan 5 ml 09/18/24 15:30 09/20/24 17:51 Guaifenesin/Dextromethorphan 10 Ml Udc PO 5 ml Q4H PRN Administration Cough Hydralazine HCl 25 mg 09/23/24 22:00 09/24/24 13:21 Hydralazine Hcl 25 Mg Tablet PO 25 mg Q8HR NAHOMI Administration Dextrose 1,000 mls @ 100 mls/hr 09/07/24 09:15 Dextrose 5% 1,000 Ml IVPB PRN PRN Hypoglycemia Protocol Insulin Aspart 2 - 5 units 09/17/24 08:00 09/24/24 12:39 Insulin Aspart (*Bkc) 100 Units/Ml SUB-Q 3 units TIDWM NAHOMI Administration Protocol Insulin Glargine 18 units 09/23/24 21:00 09/23/24 20:13 Insulin Glargine (*Bkc) 100 Units/Ml SUB-Q 18 units HS NAHOMI Administration Loperamide HCl 2 mg 09/08/24 08:12 09/13/24 18:38 Loperamide Hcl 2 Mg Capsule PO 2 mg Q6HR PRN Administration Diarrhea Loratadine 5 mg 09/18/24 15:35 09/24/24 08:15 Loratadine 5 Mg Tablet PO 5 mg QAM NAHOMI Administration Metoprolol Succinate 100 mg 09/07/24 09:00 09/24/24 08:15 Metoprolol Succinate Ext Rel 100 Mg Tabcr PO 100 mg QAM NAHOMI Administration Naloxone HCl 0.1 mg 09/07/24 08:19 Naloxone Hcl 0.4 Mg/Ml Vial IV PUSH Q2M PRN Opiate Reversal Nifedipine 60 mg 09/23/24 19:15 09/24/24 08:14 Nifedipine 30 Mg Tab.Er.24 PO 60 mg QAM NAHOMI Administration Ondansetron HCl 4 mg 09/07/24 09:15 09/13/24 14:52 Ondansetron Inj 4 Mg/2 Ml Vial IV PUSH 4 mg Q6H PRN Administration Nausea And Vomiting Oxycodone HCl 5 mg 09/17/24 19:48 09/20/24 12:47 Oxycodone Hcl (*Crx) 5 Mg Tab Ir PO 5 mg Q4H PRN Administration Pain Rated 7-10 Pantoprazole Sodium 40 mg 09/23/24 21:00 09/24/24 08:14 Pantoprazole Sodium Iv 40 Mg Vial IV PUSH 40 mg Q12HR NAHOMI Administration Polysaccharide Iron Complex 150 mg 09/07/24 17:00 09/24/24 14:55 Polysaccharide Iron Complex 150 Mg Capsule PO Not Given BIDWM [facility] Prednisone 20 mg 09/22/24 08:00 09/24/24 08:14 Prednisone 20 Mg Tablet PO 20 mg DAILY@0800 [facility] Administration Rosuvastatin Calcium 5 mg 09/07/24 09:00 09/24/24 08:15 Rosuvastatin 5 Mg Tablet PO 5 mg QAM [facility] Administration Sodium Bicarbonate 1,300 mg 09/10/24 09:00 09/24/24 12:38 Sodium Bicarbonate Tab 650 Mg Tablet PO 1,300 mg TID NAHOMI Administration Sucralfate 1,000 mg 09/07/24 11:30 09/24/24 11:18 Sucralfate Susp 100 Mg/Ml 10 Ml Udc PO 1,000 mg ACHS [facility] Administration Timolol Maleate 1 drop 09/07/24 09:35 09/24/24 08:16 Timolol Maleate 0.5% Op Soln 5 Ml Bottle EACH EYE 1 drop Q12HR NAHOMI Administration Radiology Results: ITS Impressions Abdomen/Pelvis CT 09/07/24 05:37 Impression: Minimal bilateral pleural effusions. Horseshoe kidney. Elbow X-Ray 09/17/24 12:16 IMPRESSION: 1. No fracture. Knee X-Ray 09/17/24 12:17 IMPRESSION: 1. Minimally displaced extra articular fracture of the proximal left fibular diaphysis. Correlate for any associated ankle pain and consider additional radiographs of the more distal tibia and fibula as clinically indicated. Tibia/Fibula X-Ray 09/17/24 15:54 IMPRESSION: 1. Fractures of proximal and distal fibula. 2. Comminuted fracture of distal tibia. Ankle X-Ray 09/17/24 15:55 IMPRESSION: Trimalleolar fracture of the left ankle, as detailed above. Foot X-Ray 09/21/24 17:53 IMPRESSION: 1. No fracture. Chest X-Ray 09/22/24 17:31 IMPRESSION: No acute cardiopulmonary process. Chest/Abdomen/Pelvis CT 09/23/24 22:42 IMPRESSION: Small left and trace right pleural effusions. Pancreatic head edema and peripancreatic inflammatory changes suggestive of acute interstitial pancreatitis. Correlate with pancreatic labs. Possible fecal impaction. Small volume ascites. Diffuse body wall edema. Labs Labs: Laboratory Results - last 24 hr 09/23/24 09/23/24 09/23/24 16:34 19:39 20:39 WBC RBC Hgb Hct MCV MCH MCHC RDW Plt Count MPV Immature Gran % (Auto) Neut % (Auto) Lymph % (Auto) [place] % (Auto) Eos % (Auto) Baso % (Auto) Lymph # (Auto) [place] # (Auto) Eos # (Auto) Baso # (Auto) Abs Immat Gran (auto) Absolute Neuts (auto) Absolute Nucleated RBC Nucleated RBC % ESR 24 H Sodium Potassium Chloride Carbon Dioxide Anion Gap BUN Creatinine Estim Creat Clear Calc Estimated GFR Glucose POC Capillary Glucose 288 H 324 H Calcium Phosphorus Magnesium Total Bilirubin AST ALT Alkaline Phosphatase Total Protein Albumin Lipase Complement C4 12.0 L 09/24/24 09/24/24 09/24/24 06:52 06:58 07:55 WBC 14.7 H RBC 3.64 L Hgb 10.5 L Hct 32.6 L MCV 89.6 MCH 28.8 MCHC 32.2 RDW 15.7 H Plt Count 102 L MPV 12.4 H Immature Gran % (Auto) 1.9 H Neut % (Auto) 84.4 H Lymph % (Auto) 7.4 L [place] % (Auto) 6.0 Eos % (Auto) 0.0 Baso % (Auto) 0.3 Lymph # (Auto) 1.09 [place] # (Auto) 0.9 H Eos # (Auto) 0.0 Baso # (Auto) 0.0 Abs Immat Gran (auto) 0.28 H Absolute Neuts (auto) 12.4 H Absolute Nucleated RBC 0.000 Nucleated RBC % 0.0 ESR Sodium 133 L Potassium 3.8 Chloride 101 Carbon Dioxide 24 Anion Gap 8 BUN 74 H Creatinine 2.68 H Estim Creat Clear Calc 25 Estimated GFR 18 L Glucose 265 H POC Capillary Glucose 247 H Calcium 7.4 L Phosphorus 4.1 Magnesium 2.2 Total Bilirubin 1.1 AST 23 ALT 18 Alkaline Phosphatase 91 Total Protein 5.0 L Albumin 2.2 L Lipase 840 H Complement C4 09/24/24 11:30 WBC RBC Hgb Hct MCV MCH MCHC RDW Plt Count MPV Immature Gran % (Auto) Neut % (Auto) Lymph % (Auto) [place] % (Auto) Eos % (Auto) Baso % (Auto) Lymph # (Auto) [place] # (Auto) Eos # (Auto) Baso # (Auto) Abs Immat Gran (auto) Absolute Neuts (auto) Absolute Nucleated RBC Nucleated RBC % ESR Sodium Potassium Chloride Carbon Dioxide Anion Gap BUN Creatinine Estim Creat Clear Calc Estimated GFR Glucose POC Capillary Glucose 269 H Calcium Phosphorus Magnesium Total Bilirubin AST ALT Alkaline Phosphatase Total Protein Albumin Lipase Complement C4
[2024-09-24 16:25] LABS: Glucose Point of Care 267 mg/dl (65-105)
[2024-09-24 20:45] LABS: Glucose Point of Care 276 mg/dl (65-105)
[2024-09-24] MEDS: polyethylene glycoL 3350 17 GM POWD.PACK PO (20:48)
[2024-09-24] MEDS: INSULIN GLARGINE (*BKC) 100 UNITS/ML 25 UNITS SUB-Q (21:07)
[2024-09-24 23:29] LABS: Lupus dRVVT Confirmation NEGATIVE (NEGATIVE); Lupus dRVVT Screen 50 sec (< OR = 45); PTT-LA Screen 46 sec (< OR = 40)
[2024-09-25] VITALS (7 sets, daily range): BP systolic 127–170; BP diastolic 58–71; PULSE 67–85; RESP 12–18; TEMP 36.1–36.6; O2SAT 99–100
[2024-09-25 04:44] LABS: Glucose Point of Care 212 mg/dl (65-105)
[2024-09-25 04:47] LABS: Protein, Total 4.4 g/dL (6.1-8.1)
[2024-09-25] MEDS: SUCRALFATE SUSP 100 MG/ML 10 ML UDC 1000 MG PO (04:59)
[2024-09-25] MEDS: ACETAMINOPHEN 325 MG TABLET 650 MG PO ×3 (05:00→18:22)
[2024-09-25 06:52] LABS: Basophils Percent Auto 0.1 % (0.2-1.2); Hematocrit 29.2 % (37.0-47.0); Hemoglobin 9.6 g/dL (12.0-15.0); Immature Granulocyte Absolute 0.18 K/mm3 (0.00-0.031); Immature Granulocyte Percent A 1.2 % (0-0.5); Lymphocytes Absolute Auto 1.24 K/mm3 (0.9-3.2); Lymphocytes Percent Auto 8.1 % (18.3-44.2); Mean Corpuscular HGB Conc 32.9 g/dl (32-36); Mean Corpuscular Hemoglobin 28.7 pg (26-34); Mean Corpuscular Volume 87.4 fl (80-100); Mean Platelet Volume 12.1 fl (7.4-10.4); Monocytes Absolute Auto 0.9 K/mm3 (0.1-0.6); Monocytes Percent Auto 5.9 % (2.6-8.5); Neutrophils Percent Auto 84.7 % (45.5-73.1); Platelet Count Result 113 k/mm3 (150-375); Red Blood Count 3.34 M/mm3 (4.2-5.4); Red Cell Distribution Width 15.7 % (11.5-14.5); White Blood Count 15.3 K/mm3 (4.5-10.0)
[2024-09-25 07:07] LABS: Alanine Aminotransferase 20 U/L (6-35); Albumin Level 2.1 g/dL (3.5-5.1); Alkaline Phosphatase 98 U/L (38-126); Anion Gap 5 mmol/L (4-12); Aspartate Amino Transferase 25 U/L (14-36); Bilirubin,Total 0.9 mg/dL (0.2-1.3); Blood Urea Nitrogen 78 mg/dL (7-17); Calcium 7.4 mg/dL (8.4-10.2); Carbon Dioxide 27 mmol/L (22-30); Chloride 102 mmol/L (98-107); Estimated CRCL calculation 21 ml/min; Estimated Glomerular Filt Rate 15; Glucose 198 mg/dL (65-110); Lipase 772 U/L (23-300); Magnesium 2.1 mg/dL (1.6-2.3); Potassium 3.7 mmol/L (3.4-5.0); Sodium 134 mmol/L (137-145); Triglycerides 184 mg/dL (<150)
[2024-09-25 07:47] LABS: Glucose Point of Care 193 mg/dl (65-105)
[2024-09-25] MEDS: ROSUVASTATIN 5 MG TABLET PO (09:11)
[2024-09-25] MEDS: METOPROLOL SUCCINATE EXT REL 100 MG TABCR PO (09:11)
[2024-09-25] MEDS: SODIUM BICARBONATE TAB 650 MG TABLET 1300 MG PO ×3 (09:11→16:46)
[2024-09-25] MEDS: TIMOLOL MALEATE 0.5% OP SOLN 5 ML BOTTLE 1 DROP EACH EYE ×2 (09:12→21:37)
[2024-09-25] MEDS: BRIMONIDINE TARTRATE 0.2% OP SOLN 5 ML BTL 1 DROP EACH EYE ×2 (09:12→21:37)
[2024-09-25] MEDS: PANTOPRAZOLE SODIUM IV 40 MG VIAL IV PUSH ×2 (09:12→21:39)
[2024-09-25] MEDS: BISACODYL 10 MG SUPPOSITORY RECTAL (09:12)
[2024-09-25] MEDS: LORATADINE 5 MG TABLET PO (09:12)
[2024-09-25] MEDS: ARTIFICIAL TEARS OPHTH SOLN 15 ML BOTTLE 1 DROP RIGHT EYE ×2 (09:12→21:37)
[2024-09-25] MEDS: POLYSACCHARIDE IRON COMPLEX 150 MG CAPSULE PO ×2 (09:12→16:46)
[2024-09-25] MEDS: DORZOLAMIDE HCL 2% OPHTH DROPS 1 DROP RIGHT EYE ×2 (09:12→21:37)
[2024-09-25] MEDS: APIXABAN 2.5 MG TABLET PO ×2 (09:13→21:36)
[2024-09-25] MEDS: predniSONE 20 MG TABLET PO (09:13)
[2024-09-25] MEDS: guaiFENesin 12 HR 600 MG TABCR PO ×2 (09:13→21:38)
[2024-09-25] MEDS: polyethylene glycoL 3350 17 GM POWD.PACK PO ×2 (09:17→16:46)
[2024-09-25] MEDS: HYDROcodone/acetaminophen (*CRX) 5-325 MG TABLET 1 TAB PO (09:17)
[2024-09-25] MEDS: guaiFENesin/DEXTROMETHORPHAN 10 ML UDC 5 ML PO (09:18)
[2024-09-25 11:16] LABS: Add Urine Microscopic? YES; Appearance Urine Cloudy (Clear); Bacteria Urine 4+ /hpf; Bilirubin Urine Negative (Negative); Blood Urine Non-Hemolyzed Trace (Negative); Color Urine Yellow (Yellow); Glucose Urine UA Trace mg/dL (Negative); Ketones Urine Negative (Negative); Leukocyte Esterase Ur Trace LEU/UL (Negative); Need Manual Microscopic Reviewed; Nitrate Urine Negative (Negative); Protein Urine 4+ mg/dL (Negative); RBC Urine 51-100 /hpf (0-2); Specific Grav Ur 1.017 (1.001-1.035); Squamous Epithelial Cell Urine None Seen /hpf (Few); Urobilinogen Urine 0.2 mg/dL (<2.0); WBC Urine 0-5 /hpf (0-3)
--- NOTE | 2024-09-25 11:43 | P.PNNP_ITS ---
Progress Note: A&P Assessment and Plan (1) BUTCH (acute kidney injury): Code(s): N17.9 - Acute kidney failure, unspecified Status: Acute Assessment and Plan: * improving * as noted by creatinine of 4.21mg/dl on admission. The creatinine did improve to as low as 2.15 on September 15 but has been gradually rising since then and is back up to 3.14 * early on IV fluids helped but now the patient is very swollen and the creatinine is still rising. 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 Lockett that she needs a renal biopsy. * long discussion with the patient. If she does not do a kidney biopsy she will probably end up on dialysis. * She has other issues as well, such as pericarditis in the past, pancreatitis with positive lipase and positive imaging, and also the nephrotic range proteinuria with blood in the urine. in addition to this she has positive serology. in addition, she was on hydralazine. * So I think she probably has an autoimmune disease . * I encouraged the patient to reconsider having a biopsy. She will talk with her when he comes in this evening. * In the meantime I am going to start pulse steroids to try to slow down the process. * She is already on a PPI and I will start some calcium. * Lengthy discussion with the patient and also with Dr. Lester. 25minutes were spent in discussions apart from clinical activity (2) Chronic kidney disease, stage IV (severe): Code(s): N18.4 - Chronic kidney disease, stage 4 (severe) Status: Chronic Assessment and Plan: * baseline creatinine runs ~ 2.5 - 3.2mg/dl per review of outpatient labs done by her primary sub acute care nurse * secondary to hypertension, diabetes, vascular disease, and age-related change * noted on last appointment (April 2024) discussions regarding [facility]/dialysis * follows with Dr. Shook & Rosa Delgado NP (3) Hypertension: Code(s): I10 - Essential (primary) hypertension Status: Chronic Assessment and Plan: * Blood pressure running 110s to 140s. * Will follow this along (4) Anemia: Code(s): D64.9 - Anemia, unspecified Status: Acute Assessment and Plan: * chronic element related to CKD * however, dropped to 3.8 - 3.9 on 09/21 * no evidence of acute blood loss anemia * no schistocytes seen * bilirubin normal * s/p 4U PRBCs transfusion * H/H relatively stable at this time * recent CT C/A/P with no evidence of acute blood loss but shows anasarca, possible pancreatitis and fecal impaction * occult blood of stool negative * anemia studies noted: * B12/folate normal in July 2024 * adequate iron stores (by 09/12 testing) * hemoglobin relatively stable recent after that he which drop. (5) Fracture of left proximal fibula: Code(s): S82.832A - Other fracture of upper and lower end of left fibula, initial e ncounter for closed fracture Status: Acute Assessment and Plan: * imaging with minimally displaced extra-articular fracture of the proximal left fibular diaphysis, distal fibular fx and comminuted fracture of the distal tibia * Ortho recommendations noted * fracture boot in place * PT/OT with precautions (6) Closed left ankle fracture: Qualifiers: Encounter type: initial encounter Qualified Code(s): S82.892A - Other fracture of left lower leg, initial encounter for closed fracture Code(s): S82.892A - Other fracture of left lower leg, initial encounter for closed fracture Status: Acute Assessment and Plan: * Left ankle xray noted: * comminuted fracture of the anterior distal tibia that extends into the tibiotalar joint space, additional fracture deformity within the medial and lateral malleolus. The fracture within the medial malleolus extends into the joint space and articular surface of the tibiotalar joint * fracture boot in place * Orthopedic recommendations noted * PT/OT with precautions (7) Atrial fibrillation: Code(s): I48.91 - Unspecified atrial fibrillation Status: Acute Assessment and Plan: * rate controlled * continue Eliquis and metoprolol * Will hold Eliquis if the patient agrees to a biopsy. (8) Pericarditis: Code(s): I31.9 - Disease of pericardium, unspecified Status: Acute Assessment and Plan: * as noted on previous hospitalization * was on ibuprofen and colcicine * discontinued due to BUTCH + CKD * on prednisone taper * repeat echocardiogram with no pericardial effusion. * related to #1 (?). (9) Urinary tract infection: Code(s): N39.0 - Urinary tract infection, site not specified Status: Inactive Assessment and Plan: * recent UA suggestive * urine culture with E. Coli * completed antibiotic therapy * Repeat urinalysis shows 0-5 white cells (10) Diabetes mellitus: Qualifiers: Diabetes mellitus complication detail: with diabetic retinopathy Diabetes mellitus complication status: with ophthalmic complications Diabetes mellitus pathology laboratory aides teacher insulin use: without pathology laboratory aides teacher use Diabetes mellitus macular edema: without macular edema Diabetes mellitus type: type 2 Diabetic retinopathy severity: with unspecified retinopathy severity Laterality: right Qualified Code(s): E11.319 - Type 2 diabetes mellitus with unspecified diabetic retinopathy without macular edema Code(s): E11.9 - Type 2 diabetes mellitus without complications Status: Chronic Assessment and Plan: * follow accu-cheks * glycemic control per hospitalist Case discussed with Dr. Lester. Subjective Date/time seen: 09/25/24 11:43 Interval history: patient is lying flat in bed. She is weak and tired. She is very swollen. Exam Narrative: General: WD/WN female in NAD Heart: normal S1 and S2; no rub or gallop Lungs: clear to auscultation Abdomen: soft, nontender, nondistended, positive bowel sounds Extremities: no cyanosis or clubbing; diffuse edema (1 - 2+); left leg boot in place Skin: No rash Objective Data Vital Signs Vital Signs: Vital Signs - 24 hr 09/24/24 12:00 09/24/24 12:00 09/24/24 16:00 Temperature 96.8 F L 97.4 F L Pulse Rate 70 72 70 Respiratory Rate 18 18 Blood Pressure 124/58 L 113/57 L Pulse Oximetry 100 100 Oxygen Delivery Fraction of Inspired Oxygen 09/24/24 16:00 09/24/24 19:40 09/24/24 20:00 Temperature 98.1 F Pulse Rate 65 65 74 Respiratory Rate 18 16 Blood Pressure 120/64 Pulse Oximetry 100 100 Oxygen Delivery Room Air Fraction of Inspired Oxygen 21 09/24/24 20:00 09/25/24 00:00 09/25/24 00:00 Temperature 97.4 F L Pulse Rate 68 74 67 Respiratory Rate 12 Blood Pressure 130/58 L Pulse Oximetry 100 Oxygen Delivery Fraction of Inspired Oxygen 09/25/24 04:00 09/25/24 04:00 09/25/24 08:00 Temperature 97.5 F L 97.9 F Pulse Rate 73 74 76 Respiratory Rate 13 18 Blood Pressure 127/58 L 144/63 H Pulse Oximetry 99 100 Oxygen Delivery Fraction of Inspired Oxygen Intake/Output Intake/Output: Intake & Output 09/22/24 09/23/24 09/24/24 09/25/24 23:59 23:59 23:59 23:59 Intake Total 710 1200 720 420 Output Total 3050 850 500 Balance -2340 350 720 -80 Meds/Results Medications: Active Medications Generic Name Dose Route Start Last Admin Trade Name Freq PRN Reason Stop Dose Admin Acetaminophen 650 mg 09/17/24 20:00 09/25/24 05:00 Acetaminophen 325 Mg Tablet PO 650 mg Q6HR NAHOMI Administration Hydrocodone Bitart/Acetaminophen 1 tab 09/23/24 11:21 09/25/24 09:17 Hydrocodone/Acetaminophen (*Crx) 5-325 Mg Tablet PO 1 tab Q6H PRN Administration Pain Rated 4-6 Albuterol/Ipratropium 3 ml 09/24/24 07:54 Ipratropium 0.5 Mg/Albuterol Sulfate 2.5 Mg Ampul.Neb 3 Ml INHALATION Q6HRT PRN Shortness Of Breath Apixaban 2.5 mg 09/07/24 09:30 09/25/24 09:13 Apixaban 2.5 Mg Tablet PO 2.5 mg Q12HR NAHOMI Administration Artificial Tears 1 drop 09/07/24 09:35 09/25/24 09:12 Artificial Tears Ophth Soln 15 Ml Bottle RIGHT EYE 1 drop Q12HR NAHOMI Administration Bisacodyl 10 mg 09/25/24 09:00 09/25/24 09:12 Bisacodyl 10 Mg Suppository RECTAL 09/28/24 08:59 10 mg QAM NAHOMI Administration Brimonidine Tartrate 1 drop 09/07/24 09:30 09/25/24 09:12 Brimonidine Tartrate 0.2% Op Soln 5 Ml Btl EACH EYE 1 drop Q12HR NAHOMI Administration Bumetanide 2 mg 09/23/24 11:25 09/24/24 16:13 Bumetanide Inj 1 Mg/4 Ml Vial IV PUSH 2 mg BID NAHOMI Administration Dextrose 12.5 gm 09/07/24 09:15 Dextrose 50% 25 Gm/50 Ml Syringe IV PUSH PRN PRN Hypoglycemia Protocol Dorzolamide HCl 1 drop 09/07/24 09:30 09/25/24 09:12 Dorzolamide Hcl 2% Ophth Drops RIGHT EYE 1 drop Q12HR NAHOMI Administration Glucagon 1 mg 09/07/24 09:15 Glucagon For Inj 1 Mg Vial IM PRN PRN Hypoglycemia Protocol Glucose 15 gm 09/07/24 09:15 Glucose Oral Gel 15 Gm Of Glucse In 37.5 Gm Tube PO PRN PRN Hypoglycemia Protocol Guaifenesin 600 mg 09/24/24 09:00 09/25/24 09:13 Guaifenesin 12 Hr 600 Mg Tabcr PO 600 mg Q12HR NAHOMI Administration Guaifenesin/Dextromethorphan 5 ml 09/18/24 15:30 09/25/24 09:18 Guaifenesin/Dextromethorphan 10 Ml Udc PO 5 ml Q4H PRN Administration Cough Dextrose 1,000 mls @ 100 mls/hr 09/07/24 09:15 Dextrose 5% 1,000 Ml IVPB PRN PRN Hypoglycemia Protocol Insulin Aspart 2 - 5 units 09/17/24 08:00 09/25/24 09:19 Insulin Aspart (*Bkc) 100 Units/Ml SUB-Q Not Given TIDWM NAHOMI Protocol Insulin Glargine 25 units 09/24/24 21:00 09/24/24 21:07 Insulin Glargine (*Bkc) 100 Units/Ml SUB-Q 25 units HS NAHOMI Administration Loperamide HCl 2 mg 09/08/24 08:12 09/13/24 18:38 Loperamide Hcl 2 Mg Capsule PO 2 mg Q6HR PRN Administration Diarrhea Loratadine 5 mg 09/18/24 15:35 09/25/24 09:12 Loratadine 5 Mg Tablet PO 5 mg QAM NAHOMI Administration Metoprolol Succinate 100 mg 09/07/24 09:00 09/25/24 09:11 Metoprolol Succinate Ext Rel 100 Mg Tabcr PO 100 mg QAM NAHOMI Administration Naloxone HCl 0.1 mg 09/07/24 08:19 Naloxone Hcl 0.4 Mg/Ml Vial IV PUSH Q2M PRN Opiate Reversal Nifedipine 30 mg 09/25/24 09:00 Nifedipine 30 Mg Tab.Er.24 PO QAM NAHOMI Ondansetron HCl 4 mg 09/07/24 09:15 09/13/24 14:52 Ondansetron Inj 4 Mg/2 Ml Vial IV PUSH 4 mg Q6H PRN Administration Nausea And Vomiting Oxycodone HCl 5 mg 09/17/24 19:48 09/20/24 12:47 Oxycodone Hcl (*Crx) 5 Mg Tab Ir PO 5 mg Q4H PRN Administration Pain Rated 7-10 Pantoprazole Sodium 40 mg 09/23/24 21:00 09/25/24 09:12 Pantoprazole Sodium Iv 40 Mg Vial IV PUSH 40 mg Q12HR NAHOMI Administration Polyethylene Glycol 17 gm 09/24/24 19:35 09/25/24 09:17 Polyethylene Glycol 3350 17 Gm Powd.Pack PO 17 gm BID NAHOMI Administration Polysaccharide Iron Complex 150 mg 09/07/24 17:00 09/25/24 09:12 Polysaccharide Iron Complex 150 Mg Capsule PO 150 mg BIDWM NAHOMI Administration Prednisone 20 mg 09/22/24 08:00 09/25/24 09:13 Prednisone 20 Mg Tablet PO 20 mg DAILY@0800 NAHOMI Administration Rosuvastatin Calcium 5 mg 09/07/24 09:00 09/25/24 09:11 Rosuvastatin 5 Mg Tablet PO 5 mg QAM [facility] Administration Sodium Bicarbonate 1,300 mg 09/10/24 09:00 09/25/24 09:11 Sodium Bicarbonate Tab 650 Mg Tablet PO 1,300 mg TID NAHOMI Administration Timolol Maleate 1 drop 09/07/24 09:35 09/25/24 09:12 Timolol Maleate 0.5% Op Soln 5 Ml Bottle EACH EYE 1 drop Q12HR NAHOMI Administration Radiology Results: ITS Impressions Abdomen/Pelvis CT 09/07/24 05:37 Impression: Minimal bilateral pleural effusions. Horseshoe kidney. Elbow X-Ray 09/17/24 12:16 IMPRESSION: 1. No fracture. Knee X-Ray 09/17/24 12:17 IMPRESSION: 1. Minimally displaced extra articular fracture of the proximal left fibular diaphysis. Correlate for any associated ankle pain and consider additional radiographs of the more distal tibia and fibula as clinically indicated. Tibia/Fibula X-Ray 09/17/24 15:54 IMPRESSION: 1. Fractures of proximal and distal fibula. 2. Comminuted fracture of distal tibia. Ankle X-Ray 09/17/24 15:55 IMPRESSION: Trimalleolar fracture of the left ankle, as detailed above. Foot X-Ray 09/21/24 17:53 IMPRESSION: 1. No fracture. Chest X-Ray 09/22/24 17:31 IMPRESSION: No acute cardiopulmonary process. Chest/Abdomen/Pelvis CT 09/23/24 22:42 IMPRESSION: Small left and trace right pleural effusions. Pancreatic head edema and peripancreatic inflammatory changes suggestive of acute interstitial pancreatitis. Correlate with pancreatic labs. Possible fecal impaction. Small volume ascites. Diffuse body wall edema. Labs Labs: Laboratory Results - last 24 hr 09/23/24 09/23/24 09/23/24 20:39 20:41 20:42 WBC RBC Hgb Hct MCV MCH MCHC RDW Plt Count MPV Immature Gran % (Auto) Neut % (Auto) Lymph % (Auto) [place] % (Auto) Eos % (Auto) Baso % (Auto) Lymph # (Auto) [place] # (Auto) Eos # (Auto) Baso # (Auto) Abs Immat Gran (auto) Absolute Neuts (auto) Absolute Nucleated RBC Nucleated RBC % LA PTT Screen 46 H dRVVT Screen 50 H dRVVT Confirm Interp Negative Hexagonal Phase Confirm Negative Lupus Anticoag Interp See note Sodium Potassium Chloride Carbon Dioxide Anion Gap BUN Creatinine Estim Creat Clear Calc Estimated GFR Glucose POC Capillary Glucose Calcium Phosphorus Magnesium Total Bilirubin AST ALT Alkaline Phosphatase Total Protein 4.4 L Albumin Triglycerides Lipase Urine Color Urine Appearance Urine pH Ur Specific [place] Urine Protein Urine Glucose (UA) Urine Ketones Ur Blood (Man) Urine Nitrate Urine Bilirubin Urine Urobilinogen Ur Leukocyte Esterase Add Ur Microanalysis Urine RBC Urine WBC Ur Squamous Epith Cells Urine Bacteria Urine Casts Anti-DNA Antibody 3 09/24/24 09/24/24 09/25/24 16:22 20:41 04:40 WBC RBC Hgb Hct MCV MCH MCHC RDW Plt Count MPV Immature Gran % (Auto) Neut % (Auto) Lymph % (Auto) [place] % (Auto) Eos % (Auto) Baso % (Auto) Lymph # (Auto) [place] # (Auto) Eos # (Auto) Baso # (Auto) Abs Immat Gran (auto) Absolute Neuts (auto) Absolute Nucleated RBC Nucleated RBC % LA PTT Screen dRVVT Screen dRVVT Confirm Interp Hexagonal Phase Confirm Lupus Anticoag Interp Sodium Potassium Chloride Carbon Dioxide Anion Gap BUN Creatinine Estim Creat Clear Calc Estimated GFR Glucose POC Capillary Glucose 267 H 276 H 212 H Calcium Phosphorus Magnesium Total Bilirubin AST ALT Alkaline Phosphatase Total Protein Albumin Triglycerides Lipase Urine Color Urine Appearance Urine pH Ur Specific [place] Urine Protein Urine Glucose (UA) Urine Ketones Ur Blood (Man) Urine Nitrate Urine Bilirubin Urine Urobilinogen Ur Leukocyte Esterase Add Ur Microanalysis Urine RBC Urine WBC Ur Squamous Epith Cells Urine Bacteria Urine Casts Anti-DNA Antibody 09/25/24 09/25/24 09/25/24 06:44 07:43 10:53 WBC 15.3 H RBC 3.34 L Hgb 9.6 L Hct 29.2 L MCV 87.4 MCH 28.7 MCHC 32.9 RDW 15.7 H Plt Count 113 L MPV 12.1 H Immature Gran % (Auto) 1.2 H Neut % (Auto) 84.7 H Lymph % (Auto) 8.1 L [place] % (Auto) 5.9 Eos % (Auto) 0.0 Baso % (Auto) 0.1 L Lymph # (Auto) 1.24 [place] # (Auto) 0.9 H Eos # (Auto) 0.0 Baso # (Auto) 0.0 Abs Immat Gran (auto) 0.18 H Absolute Neuts (auto) 13.0 H Absolute Nucleated RBC 0.000 Nucleated RBC % 0.0 LA PTT Screen dRVVT Screen dRVVT Confirm Interp Hexagonal Phase Confirm Lupus Anticoag Interp Sodium 134 L Potassium 3.7 Chloride 102 Carbon Dioxide 27 Anion Gap 5 BUN 78 H Creatinine 3.14 H Estim Creat Clear Calc 21 Estimated GFR 15 L Glucose 198 H POC Capillary Glucose 193 H Calcium 7.4 L Phosphorus 4.0 Magnesium 2.1 Total Bilirubin 0.9 AST 25 ALT 20 Alkaline Phosphatase 98 Total Protein 5.0 L Albumin 2.1 L Triglycerides 184 H Lipase 772 H Urine Color Yellow Urine Appearance Cloudy H Urine pH 8.0 Ur Specific [place] 1.017 Urine Protein 4+ H Urine Glucose (UA) Trace H Urine Ketones Negative Ur Blood (Man) Non-hemolyzed trace H Urine Nitrate Negative Urine Bilirubin Negative Urine Urobilinogen 0.2 Ur Leukocyte Esterase Trace H Add Ur Microanalysis Reviewed Urine RBC 51-100 H Urine WBC 0-5 Ur Squamous Epith Cells None seen Urine Bacteria 4+ H Urine Casts 6-10 Anti-DNA Antibody
[2024-09-25 11:48] LABS: Glucose Point of Care 142 mg/dl (65-105)
[2024-09-25 12:23] LABS: Creatinine, Random Urine 34 mg/dL (20-275); Total Prot/Creat ratio mg/mg 12.324 (0.024-0.184); Total Protein/Creatinine Ratio 12324 mg/g creat (24-184)
--- NOTE | 2024-09-25 13:28 | P.PNIM_ITS ---
Progress Note: A&P Assessment and Plan (1) Fall from ground level: Code(s): W18.30XA - Fall on same level, unspecified, initial encounter Status: Acute Assessment and Plan: Patient was admitted on 09/07 and had a fall while hospitalized on 09/17. Likely mechanical due to generalized muscle weakness. She slid down to the floor with PT in room. Rt elbow xray showing no fracture. Rt knee xray showing mild OA. She later had a right foot xray showing no fx She was found to have minimally displaced extra-articular fracture of the proximal left fibular diaphysis, distal fibular fx and comminuted fracture of the distal tibia. Left ankle xray again showing comminuted fracture of the anterior distal tibia that extends into the tibiotalar joint space, additional fracture deformity within the medial and lateral malleolus. The fracture within the medial malleolus extends into the joint space and articular surface of the tibiotalar joint. Ortho consulted and appreciate their input. Patient is not a surgical candidate. She was placed in fracture boot. PT/OT treatment with Ortho precautions. Will likely need SNF/rehab placement. Surgical intervention to be considered when her overall medical condition improves. Continue supportive care with analgesics. (2) Fracture of left proximal fibula: Code(s): S82.832A - Other fracture of upper and lower end of left fibula, initial encounter for closed fracture Status: Acute Assessment and Plan: As above. (3) Closed left ankle fracture: Qualifiers: Encounter type: initial encounter Qualified Code(s): S82.892A - Other fracture of left lower leg, initial encounter for closed fracture Code(s): S82.892A - Other fracture of left lower leg, initial encounter for closed fracture Status: Acute Assessment and Plan: As above. (4) Anemia: Code(s): D64.9 - Anemia, unspecified Status: Acute Assessment and Plan: Baseline hgb unclear. Hgb around 10 when she is not hospitalized. Hgb 10 on admission but dropped to 7-8 range. Hgb was 7.2 on 09/17 but when rechecked on 09/21, Hgb critical at 3.9 (repeat was 3.8). Also with drop in plt count. No evidence of acute blood loss anemia. No schistocytes seen on CBC 09/22 or 1/30 and not mentioned prior. Bili normal She received 4U PRBCs. CT Ch/A/P showing no evidence of acute blood loss but shows anasarca, possible pancreatitis and fecal impaction. Occult blood of stool negative on 09/09/24. B12/folate normal in July. On 09/12/24, Iron 36, TIBC 161 and iron sat 22%. Patient on apixaban for AFib and remains on this medication. Hgb climbed to 10.7 and remaining stable Etiology unclear but consider hemolysis. Acute GI bleed seems unlikely. Continue to follow H/H closely and transfuse to a stable hgb. Continue PPI (5) Acute on chronic renal failure: Code(s): N17.9 - Acute kidney failure, unspecified; N18.9 - Chronic kidney disease, unspecified Status: Acute Assessment and Plan: Patient with CKD stage 4. Baseline Cr 2.6-3.3 range. Patient with BUTCH with Cr 4.21 on admission She was treated with IV fluids with improvement. Patient has some form of autoimmune disease that probably is affecting her kidneys. Hepatitis panel and HIV negative. Immunoglobulin levels normal (IgM elevated). RF negative. DULCE positive and 1:1280 and nuclear, homogeneous pattern. C3 low, C4 normal and CH50 elevated. Anti-myeloperoxidase positive. Antiprotienase and GBM negative. Seen by Nephrology but no recent f/u from nephro so they were reconsulted. Consider SLE or microscopic polyangiitis. Consider also hydralazine induced SLE or drug-induced ANCA associated vasulitis due to hydralazine. SLE seems less likely. Has nephrotic range proteinuria as well. On Prednisone 20mg which is new. She has refused albumin here. ESR 24. C4 low. Good UOP with Bumex but Cr up to 3.14. BP was too well controlled so Procardia held. Will hold Bumex for today. Discussed with nephrology. Plan for pulsed dosed steroids. (6) Enteritis: Code(s): K52.9 - Noninfective gastroenteritis and colitis, unspecified Status: Acute Assessment and Plan: Patient with GI symptoms. C-diff negative. Seen by GI and no further recommendations for now, Colchicine dc'd. Continues to tolerate meals fairly but with very poor appetite. Plant Breeder Scientist consulted. Carafate was stopped today since she has been on for almost 3 weeks. Continue PPI. Antiemetics PRN. Continue supportive care. (7) Atrial fibrillation: Code(s): I48.91 - Unspecified atrial fibrillation Status: Acute Assessment and Plan: Rate controlled Continue Eliquis and Metoprolol (8) Diabetes mellitus: Qualifiers: Diabetes mellitus complication detail: with diabetic retinopathy Diabetes mellitus complication status: with ophthalmic complications Diabetes mellitus alf insulin use: without ocean transportation intermediary use Diabetes mellitus macular edema: without macular edema Diabetes mellitus type: type 2 Diabetic retinopathy severity: with unspecified retinopathy severity Laterality: right Qualified Code(s): E11.319 - Type 2 diabetes mellitus with unspecified diabetic retinopathy without macular edema Code(s): E11.9 - Type 2 diabetes mellitus without complications Status: Chronic Assessment and Plan: HgbA1C is 5.3%. The patient's blood glucose was reviewed on 09/25 Glucose better controlled now but will probably worsen with the addition of pulsed steroids. . Continue AccuCheks covering with sliding scale. Hypoglycemia protocol available as needed. Continue to follow (9) Hypertension: Code(s): I10 - Essential (primary) hypertension Status: Chronic Assessment and Plan: Home meds: Hydralazine 50mg TID, Metoprolol 100mg ER, Amlodipine 5mg Blood pressure reviewed on 09/25 Changed Norvasc to Procardia XL. Continue metoprolol. Hydralazine stopped. Bumex added. BP became soft so Procardia dose decreased then held. Bumex held as well. Allow for mild permissive HTN. (10) Failure to thrive: Status: Acute Assessment and Plan: Drilling Rig Operator re consulted. Daily weights. Encouraged with meals and nutritional supplement. (11) Pericarditis: Code(s): I31.9 - Disease of pericardium, unspecified Status: Acute Assessment and Plan: Recently hospitalized for pericarditis, started on ibuprofen and colchicine and patient reports pain resolved --No NSAIDs for BUTCH/CKD --No colchicine for GI symptoms --Started on Prednisone 40mg with a taper --Seen by Cardiology -- Repeat echocardiogram with no pericardial effusion. Pericarditis could be related to SLE. Changed to pulse dose steroids. (12) Generalized muscle weakness: Code(s): M62.81 - Muscle weakness (generalized) Status: Acute Assessment and Plan: PT/OT eval and treatment with Ortho restrictions. Total CK normal. Fall precautions. (13) Urinary tract infection: Code(s): N39.0 - Urinary tract infection, site not specified Status: Inactive Assessment and Plan: UA on 09/07/2024- negative for acute UTI, repeat on 09/13/2024 with 2+ leukocyte esterase UCx 09/13 grew doss-sensitive EColi. She was treated with IV Rocephin and Cefdinir with abx therapy completed. Plan Fecal impaction - noted by CT scan. Start Miralax. Dulcolax suppostories for a few days. Having BMs per patient Possible pancreatitis - CT evidence of pancreatitis. Lipase 840. Patient without and symptoms to suggest this. Pancreatic edema from anasarca? GB absent and LFTs okay so don't believe choledocholithiasis. TG level 184. Lipase trending down. Continue to follow DVT prophylaxis - Eliquis Code status - full Subjective Date/time seen: 09/25/24 13:28 Interval history: 63yo female with CKD, DM and anxiety here for n/v and diarrhea. No problems overnight. no n/v. 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 no CP or SOB. +large BM per patienit (not charted). Exam Narrative: AF 97.9 144/63 76 18 100% ra Gen - NARD Chest - faint inspiratory and expratory rhonchi. CV - RRR S1/S2 Abd - Soft, NT/ND, Positive BS Ext - diffuse edema but improved. Left LE IAN wrapped. Psych - Nml mood but depressed affect Skin - Warm and dry Objective Data Vital Signs Vital Signs: Vital Signs - 24 hr 09/24/24 16:00 09/24/24 16:00 09/24/24 19:40 Temperature 97.4 F L Pulse Rate 70 65 65 Respiratory Rate 18 18 Blood Pressure 113/57 L Pulse Oximetry 100 100 Oxygen Delivery Room Air Fraction of Inspired Oxygen 21 09/24/24 20:00 09/24/24 20:00 09/25/24 00:00 Temperature 98.1 F 97.4 F L Pulse Rate 74 68 74 Respiratory Rate 16 12 Blood Pressure 120/64 130/58 L Pulse Oximetry 100 100 Oxygen Delivery Fraction of Inspired Oxygen 09/25/24 00:00 09/25/24 04:00 09/25/24 04:00 Temperature 97.5 F L Pulse Rate 67 73 74 Respiratory Rate 13 Blood Pressure 127/58 L Pulse Oximetry 99 Oxygen Delivery Fraction of Inspired Oxygen 09/25/24 08:00 Temperature 97.9 F Pulse Rate 76 Respiratory Rate 18 Blood Pressure 144/63 H Pulse Oximetry 100 Oxygen Delivery Fraction of Inspired Oxygen Intake/Output Intake/Output: Intake & Output 09/22/24 09/23/24 09/24/24 09/25/24 23:59 23:59 23:59 23:59 Intake Total 710 1200 720 660 Output Total 3050 850 500 Balance -2340 350 720 160 Meds/Results Medications: Active Medications Generic Name Dose Route Start Last Admin Trade Name Freq PRN Reason Stop Dose Admin Acetaminophen 650 mg 09/17/24 20:00 09/25/24 12:06 Acetaminophen 325 Mg Tablet PO 650 mg Q6HR NAHOMI Administration Hydrocodone Bitart/Acetaminophen 1 tab 09/23/24 11:21 09/25/24 09:17 Hydrocodone/Acetaminophen (*Crx) 5-325 Mg Tablet PO 1 tab Q6H PRN Administration Pain Rated 4-6 Albuterol/Ipratropium 3 ml 09/24/24 07:54 Ipratropium 0.5 Mg/Albuterol Sulfate 2.5 Mg Ampul.Neb 3 Ml INHALATION Q6HRT PRN Shortness Of Breath Apixaban 2.5 mg 09/07/24 09:30 09/25/24 09:13 Apixaban 2.5 Mg Tablet PO 2.5 mg Q12HR NAHOMI Administration Artificial Tears 1 drop 09/07/24 09:35 09/25/24 09:12 Artificial Tears Ophth Soln 15 Ml Bottle RIGHT EYE 1 drop Q12HR NAHOMI Administration Bisacodyl 10 mg 09/25/24 09:00 09/25/24 09:12 Bisacodyl 10 Mg Suppository RECTAL 09/28/24 08:59 10 mg QAM NAHOMI Administration Brimonidine Tartrate 1 drop 09/07/24 09:30 09/25/24 09:12 Brimonidine Tartrate 0.2% Op Soln 5 Ml Btl EACH EYE 1 drop Q12HR NAHOMI Administration Bumetanide 2 mg 09/23/24 11:25 09/24/24 16:13 Bumetanide Inj 1 Mg/4 Ml Vial IV PUSH 2 mg BID NAHOMI Administration Dextrose 12.5 gm 09/07/24 09:15 Dextrose 50% 25 Gm/50 Ml Syringe IV PUSH PRN PRN Hypoglycemia Protocol Dorzolamide HCl 1 drop 09/07/24 09:30 09/25/24 09:12 Dorzolamide Hcl 2% Ophth Drops RIGHT EYE 1 drop Q12HR NAHOMI Administration Glucagon 1 mg 09/07/24 09:15 Glucagon For Inj 1 Mg Vial IM PRN PRN Hypoglycemia Protocol Glucose 15 gm 09/07/24 09:15 Glucose Oral Gel 15 Gm Of Glucse In 37.5 Gm Tube PO PRN PRN Hypoglycemia Protocol Guaifenesin 600 mg 09/24/24 09:00 09/25/24 09:13 Guaifenesin 12 Hr 600 Mg Tabcr PO 600 mg Q12HR NAHOMI Administration Guaifenesin/Dextromethorphan 5 ml 09/18/24 15:30 09/25/24 09:18 Guaifenesin/Dextromethorphan 10 Ml Udc PO 5 ml Q4H PRN Administration Cough Dextrose 1,000 mls @ 100 mls/hr 09/07/24 09:15 Dextrose 5% 1,000 Ml IVPB PRN PRN Hypoglycemia Protocol Methylprednisolone Sodium 116 mls @ 200 mls/hr 09/25/24 13:00 Succinate 1,000 mg/ Dextrose IVPB 09/27/24 09:35 QAM [facility] Insulin Aspart 2 - 5 units 09/17/24 08:00 09/25/24 09:19 Insulin Aspart (*Bkc) 100 Units/Ml SUB-Q Not Given TIDWM [facility] Protocol Insulin Glargine 25 units 09/24/24 21:00 09/24/24 21:07 Insulin Glargine (*Bkc) 100 Units/Ml SUB-Q 25 units HS NAHOMI Administration Loperamide HCl 2 mg 09/08/24 08:12 09/13/24 18:38 Loperamide Hcl 2 Mg Capsule PO 2 mg Q6HR PRN Administration Diarrhea Loratadine 5 mg 09/18/24 15:35 09/25/24 09:12 Loratadine 5 Mg Tablet PO 5 mg QAM NAHOMI Administration Metoprolol Succinate 100 mg 09/07/24 09:00 09/25/24 09:11 Metoprolol Succinate Ext Rel 100 Mg Tabcr PO 100 mg QAM NAHOMI Administration Naloxone HCl 0.1 mg 09/07/24 08:19 Naloxone Hcl 0.4 Mg/Ml Vial IV PUSH Q2M PRN Opiate Reversal Nifedipine 30 mg 09/25/24 09:00 Nifedipine 30 Mg Tab.Er.24 PO QAM NAHOMI Ondansetron HCl 4 mg 09/07/24 09:15 09/13/24 14:52 Ondansetron Inj 4 Mg/2 Ml Vial IV PUSH 4 mg Q6H PRN Administration Nausea And Vomiting Oxycodone HCl 5 mg 09/17/24 19:48 09/20/24 12:47 Oxycodone Hcl (*Crx) 5 Mg Tab Ir PO 5 mg Q4H PRN Administration Pain Rated 7-10 Pantoprazole Sodium 40 mg 09/23/24 21:00 09/25/24 09:12 Pantoprazole Sodium Iv 40 Mg Vial IV PUSH 40 mg Q12HR NAHOMI Administration Polyethylene Glycol 17 gm 09/24/24 19:35 09/25/24 09:17 Polyethylene Glycol 3350 17 Gm Powd.Pack PO 17 gm BID NAHOMI Administration Polysaccharide Iron Complex 150 mg 09/07/24 17:00 09/25/24 09:12 Polysaccharide Iron Complex 150 Mg Capsule PO 150 mg BIDWM NAHOMI Administration Rosuvastatin Calcium 5 mg 09/07/24 09:00 09/25/24 09:11 Rosuvastatin 5 Mg Tablet PO 5 mg QAM NAHOMI Administration Sodium Bicarbonate 1,300 mg 09/10/24 09:00 09/25/24 12:06 Sodium Bicarbonate Tab 650 Mg Tablet PO 1,300 mg TID NAHOMI Administration Timolol Maleate 1 drop 09/07/24 09:35 09/25/24 09:12 Timolol Maleate 0.5% Op Soln 5 Ml Bottle EACH EYE 1 drop Q12HR NAHOMI Administration Radiology Results: ITS Impressions Abdomen/Pelvis CT 09/07/24 05:37 Impression: Minimal bilateral pleural effusions. Horseshoe kidney. Elbow X-Ray 09/17/24 12:16 IMPRESSION: 1. No fracture. Knee X-Ray 09/17/24 12:17 IMPRESSION: 1. Minimally displaced extra articular fracture of the proximal left fibular diaphysis. Correlate for any associated ankle pain and consider additional radiographs of the more distal tibia and fibula as clinically indicated. Tibia/Fibula X-Ray 09/17/24 15:54 IMPRESSION: 1. Fractures of proximal and distal fibula. 2. Comminuted fracture of distal tibia. Ankle X-Ray 09/17/24 15:55 IMPRESSION: Trimalleolar fracture of the left ankle, as detailed above. Foot X-Ray 09/21/24 17:53 IMPRESSION: 1. No fracture. Chest X-Ray 09/22/24 17:31 IMPRESSION: No acute cardiopulmonary process. Chest/Abdomen/Pelvis CT 09/23/24 22:42 IMPRESSION: Small left and trace right pleural effusions. Pancreatic head edema and peripancreatic inflammatory changes suggestive of acute interstitial pancreatitis. Correlate with pancreatic labs. Possible fecal impaction. Small volume ascites. Diffuse body wall edema. Labs Labs: Laboratory Results - last 24 hr 09/23/24 09/23/24 09/23/24 20:39 20:41 20:42 WBC RBC Hgb Hct MCV MCH MCHC RDW Plt Count MPV Immature Gran % (Auto) Neut % (Auto) Lymph % (Auto) [place] % (Auto) Eos % (Auto) Baso % (Auto) Lymph # (Auto) [place] # (Auto) Eos # (Auto) Baso # (Auto) Abs Immat Gran (auto) Absolute Neuts (auto) Absolute Nucleated RBC Nucleated RBC % LA PTT Screen 46 H dRVVT Screen 50 H dRVVT Confirm Interp Negative Hexagonal Phase Confirm Negative Lupus Anticoag Interp See note Sodium Potassium Chloride Carbon Dioxide Anion Gap BUN Creatinine Estim Creat Clear Calc Estimated GFR Glucose POC Capillary Glucose Calcium Phosphorus Magnesium Total Bilirubin AST ALT Alkaline Phosphatase Total Protein 4.4 L Albumin Triglycerides Lipase Urine Color Urine Appearance Urine pH Ur Specific [place] Urine Protein Urine Glucose (UA) Urine Ketones Ur Blood (Man) Urine Nitrate Urine Bilirubin Urine Urobilinogen Ur Leukocyte Esterase Add Ur Microanalysis Urine RBC Urine WBC Ur Squamous Epith Cells Urine Bacteria Urine Casts Ur Random Creatinine U Random Total Protein Protein/Creatinin Ratio Anti-DNA Antibody 3 09/23/24 09/24/24 09/24/24 23:12 16:22 20:41 WBC RBC Hgb Hct MCV MCH MCHC RDW Plt Count MPV Immature Gran % (Auto) Neut % (Auto) Lymph % (Auto) [place] % (Auto) Eos % (Auto) Baso % (Auto) Lymph # (Auto) [place] # (Auto) Eos # (Auto) Baso # (Auto) Abs Immat Gran (auto) Absolute Neuts (auto) Absolute Nucleated RBC Nucleated RBC % LA PTT Screen dRVVT Screen dRVVT Confirm Interp Hexagonal Phase Confirm Lupus Anticoag Interp Sodium Potassium Chloride Carbon Dioxide Anion Gap BUN Creatinine Estim Creat Clear Calc Estimated GFR Glucose POC Capillary Glucose 267 H 276 H Calcium Phosphorus Magnesium Total Bilirubin AST ALT Alkaline Phosphatase Total Protein Albumin Triglycerides Lipase Urine Color Urine Appearance Urine pH Ur Specific [place] Urine Protein Urine Glucose (UA) Urine Ketones Ur Blood (Man) Urine Nitrate Urine Bilirubin Urine Urobilinogen Ur Leukocyte Esterase Add Ur Microanalysis Urine RBC Urine WBC Ur Squamous Epith Cells Urine Bacteria Urine Casts Ur Random Creatinine 34 U Random Total Protein 419 H Protein/Creatinin Ratio 12054 H Anti-DNA Antibody 09/25/24 09/25/24 09/25/24 04:40 06:44 07:43 WBC 15.3 H RBC 3.34 L Hgb 9.6 L Hct 29.2 L MCV 87.4 MCH 28.7 MCHC 32.9 RDW 15.7 H Plt Count 113 L MPV 12.1 H Immature Gran % (Auto) 1.2 H Neut % (Auto) 84.7 H Lymph % (Auto) 8.1 L [place] % (Auto) 5.9 Eos % (Auto) 0.0 Baso % (Auto) 0.1 L Lymph # (Auto) 1.24 [place] # (Auto) 0.9 H Eos # (Auto) 0.0 Baso # (Auto) 0.0 Abs Immat Gran (auto) 0.18 H Absolute Neuts (auto) 13.0 H Absolute Nucleated RBC 0.000 Nucleated RBC % 0.0 LA PTT Screen dRVVT Screen dRVVT Confirm Interp Hexagonal Phase Confirm Lupus Anticoag Interp Sodium 134 L Potassium 3.7 Chloride 102 Carbon Dioxide 27 Anion Gap 5 BUN 78 H Creatinine 3.14 H Estim Creat Clear Calc 21 Estimated GFR 15 L Glucose 198 H POC Capillary Glucose 212 H 193 H Calcium 7.4 L Phosphorus 4.0 Magnesium 2.1 Total Bilirubin 0.9 AST 25 ALT 20 Alkaline Phosphatase 98 Total Protein 5.0 L Albumin 2.1 L Triglycerides 184 H Lipase 772 H Urine Color Urine Appearance Urine pH Ur Specific [place] Urine Protein Urine Glucose (UA) Urine Ketones Ur Blood (Man) Urine Nitrate Urine Bilirubin Urine Urobilinogen Ur Leukocyte Esterase Add Ur Microanalysis Urine RBC Urine WBC Ur Squamous Epith Cells Urine Bacteria Urine Casts Ur Random Creatinine U Random Total Protein Protein/Creatinin Ratio Anti-DNA Antibody 09/25/24 09/25/24 10:53 11:39 WBC RBC Hgb Hct MCV MCH MCHC RDW Plt Count MPV Immature Gran % (Auto) Neut % (Auto) Lymph % (Auto) [place] % (Auto) Eos % (Auto) Baso % (Auto) Lymph # (Auto) [place] # (Auto) Eos # (Auto) Baso # (Auto) Abs Immat Gran (auto) Absolute Neuts (auto) Absolute Nucleated RBC Nucleated RBC % LA PTT Screen dRVVT Screen dRVVT Confirm Interp Hexagonal Phase Confirm Lupus Anticoag Interp Sodium Potassium Chloride Carbon Dioxide Anion Gap BUN Creatinine Estim Creat Clear Calc Estimated GFR Glucose POC Capillary Glucose 142 H Calcium Phosphorus Magnesium Total Bilirubin AST ALT Alkaline Phosphatase Total Protein Albumin Triglycerides Lipase Urine Color Yellow Urine Appearance Cloudy H Urine pH 8.0 Ur Specific [place] 1.017 Urine Protein 4+ H Urine Glucose (UA) Trace H Urine Ketones Negative Ur Blood (Man) Non-hemolyzed trace H Urine Nitrate Negative Urine Bilirubin Negative Urine Urobilinogen 0.2 Ur Leukocyte Esterase Trace H Add Ur Microanalysis Reviewed Urine RBC 51-100 H Urine WBC 0-5 Ur Squamous Epith Cells None seen Urine Bacteria 4+ H Urine Casts 6-10 Ur Random Creatinine U Random Total Protein Protein/Creatinin Ratio Anti-DNA Antibody
[2024-09-25] MEDS: methylPREDNISolone SOD SUCC 1,000 MG in DEXTROSE 5% 100 ML 200 MG IVPB (16:49)
[2024-09-25 17:00] LABS: Glucose Point of Care 126 mg/dl (65-105)
[2024-09-25 21:22] LABS: Glucose Point of Care 199 mg/dl (65-105)
[2024-09-25] MEDS: INSULIN GLARGINE (*BKC) 100 UNITS/ML 25 UNITS SUB-Q (21:38)
[2024-09-26] VITALS (7 sets, daily range): BP systolic 145–173; BP diastolic 70–94; PULSE 83–96; RESP 14–17; TEMP 36.4–36.9; O2SAT 97–100
[2024-09-26] MEDS: ACETAMINOPHEN 325 MG TABLET 650 MG PO ×2 (00:41→05:53)
[2024-09-26 08:05] LABS: Basophils Percent Auto 0.2 % (0.2-1.2); Hematocrit 29.1 % (37.0-47.0); Hemoglobin 9.3 g/dL (12.0-15.0); Immature Granulocyte Absolute 0.15 K/mm3 (0.00-0.031); Immature Granulocyte Percent A 1.2 % (0-0.5); Lymphocytes Absolute Auto 0.92 K/mm3 (0.9-3.2); Lymphocytes Percent Auto 7.2 % (18.3-44.2); Mean Corpuscular Hemoglobin 29.1 pg (26-34); Mean Corpuscular Volume 90.9 fl (80-100); Mean Platelet Volume 11.7 fl (7.4-10.4); Monocytes Absolute Auto 0.8 K/mm3 (0.1-0.6); Monocytes Percent Auto 6.4 % (2.6-8.5); Neutrophils Absolute Auto 10.8 K/mm3 (1.3-6.7); Platelet Count Result 106 k/mm3 (150-375); Red Cell Distribution Width 15.9 % (11.5-14.5); White Blood Count 12.7 K/mm3 (4.5-10.0)
[2024-09-26 08:07] LABS: Glucose Point of Care 206 mg/dl (65-105)
[2024-09-26 08:22] LABS: Alanine Aminotransferase 21 U/L (6-35); Albumin Level 2.1 g/dL (3.5-5.1); Alkaline Phosphatase 105 U/L (38-126); Anion Gap 5 mmol/L (4-12); Aspartate Amino Transferase 26 U/L (14-36); Bilirubin,Total 1.1 mg/dL (0.2-1.3); Blood Urea Nitrogen 82 mg/dL (7-17); Calcium 7.4 mg/dL (8.4-10.2); Carbon Dioxide 25 mmol/L (22-30); Chloride 103 mmol/L (98-107); Estimated CRCL calculation 23 ml/min; Estimated Glomerular Filt Rate 16; Glucose 195 mg/dL (65-110); Lipase 496 U/L (23-300); Magnesium 2.2 mg/dL (1.6-2.3); Phosphorus 4.4 mg/dL (2.5-4.5); Potassium 4.3 mmol/L (3.4-5.0); Sodium 133 mmol/L (137-145)
[2024-09-26] MEDS: ARTIFICIAL TEARS OPHTH SOLN 15 ML BOTTLE 1 DROP RIGHT EYE ×2 (08:59→22:56)
[2024-09-26] MEDS: BRIMONIDINE TARTRATE 0.2% OP SOLN 5 ML BTL 1 DROP EACH EYE ×2 (08:59→22:56)
[2024-09-26] MEDS: POLYSACCHARIDE IRON COMPLEX 150 MG CAPSULE PO ×2 (09:00→16:54)
[2024-09-26] MEDS: LORATADINE 5 MG TABLET PO (09:00)
[2024-09-26] MEDS: SODIUM BICARBONATE TAB 650 MG TABLET 1300 MG PO ×3 (09:00→16:55)
[2024-09-26] MEDS: METOPROLOL SUCCINATE EXT REL 100 MG TABCR PO (09:00)
[2024-09-26] MEDS: polyethylene glycoL 3350 17 GM POWD.PACK PO ×2 (09:00→16:55)
[2024-09-26] MEDS: guaiFENesin 12 HR 600 MG TABCR PO ×2 (09:00→22:22)
[2024-09-26] MEDS: TIMOLOL MALEATE 0.5% OP SOLN 5 ML BOTTLE 1 DROP EACH EYE ×2 (09:00→22:56)
[2024-09-26] MEDS: ROSUVASTATIN 5 MG TABLET PO (09:00)
[2024-09-26] MEDS: DORZOLAMIDE HCL 2% OPHTH DROPS 1 DROP RIGHT EYE ×2 (09:00→22:56)
[2024-09-26] MEDS: methylPREDNISolone SOD SUCC 1,000 MG in DEXTROSE 5% 100 ML 200 MG IVPB (09:02)
[2024-09-26] MEDS: HYDROcodone/acetaminophen (*CRX) 5-325 MG TABLET 1 TAB PO (09:08)
--- NOTE | 2024-09-26 09:08 | P.PNNP_ITS ---
Progress Note: A&P Assessment and Plan (1) BUTCH (acute kidney injury): Code(s): N17.9 - Acute kidney failure, unspecified Status: Acute Assessment and Plan: * improving * as noted by creatinine of 4.21mg/dl on admission. The creatinine did improve to as low as 2.15 on September 15 but has been gradually rising since then and is back up to 3.14 * early on IV fluids helped but now the patient is very swollen and the creatinine is still rising. 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 Lockett that she needs a renal biopsy. * discussed again with the patient. She talked with her last night and he is going to come in today and will have the nurses call me so I can talk to him over the phone. * Her creatinine fell to 2.99 today. I am not sure if this is just variation lab does her creatinine in the last few days has been bouncing around quite a bit. It is probably unlikely that the steroids are causing an improvement in kidney function this quickly. * Will hold Eliquis for now until she decides whether to do the biopsy. If they refuse will put her back on the Eliquis. * Currently getting pulse steroids. (2) Chronic kidney disease, stage IV (severe): Code(s): N18.4 - Chronic kidney disease, stage 4 (severe) Status: Chronic Assessment and Plan: * baseline creatinine runs ~ 2.5 - 3.2mg/dl per review of outpatient labs done by her primary supervisor burling and joining * secondary to hypertension, diabetes, vascular disease, and age-related change * noted on last appointment (April 2024) discussions regarding [employer]TER/dialysis * follows with Dr. Shook & Rosa Delgado NP (3) Hypertension: Code(s): I10 - Essential (primary) hypertension Status: Chronic Assessment and Plan: * Blood pressure running 130s to 140s * the patient is on 100mg of metoprolol once a day * Will follow this along (4) Anemia: Code(s): D64.9 - Anemia, unspecified Status: Acute Assessment and Plan: * chronic element related to CKD * however, dropped to 3.8 - 3.9 on 09/21 * no evidence of acute blood loss anemia * no schistocytes seen * bilirubin normal * s/p 4U PRBCs transfusion * H/H relatively stable at this time * recent CT C/A/P with no evidence of acute blood loss but shows anasarca, possible pancreatitis and fecal impaction * occult blood of stool negative * anemia studies noted: * B12/folate normal in July 2024 * adequate iron stores (by 09/12 testing) * hemoglobin relatively stable recent after that he which drop. today was 9.3 (5) Fracture of left proximal fibula: Code(s): S82.832A - Other fracture of upper and lower end of left fibula, initial encounter for closed fracture Status: Acute Assessment and Plan: * imaging with minimally displaced extra-articular fracture of the proximal left fibular diaphysis, distal fibular fx and comminuted fracture of the distal tibia * Ortho recommendations noted * fracture boot in place * PT/OT with precautions (6) Closed left ankle fracture: Qualifiers: Encounter type: initial encounter Qualified Code(s): S82.892A - Other fracture of left lower leg, initial encounter for closed fracture Code(s): S82.892A - Other fracture of left lower leg, initial encounter for closed fracture Status: Acute Assessment and Plan: * Left ankle xray noted: * comminuted fracture of the anterior distal tibia that extends into the tibiotalar joint space, additional fracture deformity within the medial and lateral malleolus. The fracture within the medial malleolus extends into the joint space and articular surface of the tibiotalar joint * fracture boot in place * Orthopedic recommendations noted * PT/OT with precautions (7) Atrial fibrillation: Code(s): I48.91 - Unspecified atrial fibrillation Status: Acute Assessment and Plan: * heart rate 85 today * continue Eliquis and metoprolol * Will hold Eliquis for now until I talk with the about whether we will do a biopsy tomorrow (8) Pericarditis: Code(s): I31.9 - Disease of pericardium, unspecified Status: Acute Assessment and Plan: * as noted on previous hospitalization * was on ibuprofen and colcicine * discontinued due to BUTCH + CKD * on prednisone taper * repeat echocardiogram with no pericardial effusion. * related to #1 (?). (9) Urinary tract infection: Code(s): N39.0 - Urinary tract infection, site not specified Status: Inactive Assessment and Plan: * recent UA suggestive * urine culture with E. Coli * completed antibiotic therapy * Repeat urinalysis shows 0-5 white cells (10) Diabetes mellitus: Qualifiers: Diabetes mellitus complication detail: with diabetic retinopathy Diabetes mellitus complication status: with ophthalmic complications Diabetes mellitus penitentiary insulin use: without penitentiary use Diabetes mellitus macular edema: without macular edema Diabetes mellitus type: type 2 Diabetic retinopathy severity: with unspecified retinopathy severity Laterality: right Qualified Code(s): E11.319 - Type 2 diabetes mellitus with unspecified diabetic retinopathy without macular edema Code(s): E11.9 - Type 2 diabetes mellitus without complications Status: Chronic Assessment and Plan: * follow accu-cheks * glycemic control per hospitalist Subjective Date/time seen: 09/26/24 09:08 Interval history: patient is awake. Still swollen. No shortness of breath. She is hungry for breakfast Exam Narrative: General: WD/WN female in NAD Heart: normal S1 and S2; no rub or gallop Lungs: clear bilaterally Abdomen: soft, nontender, nondistended, positive bowel sounds Extremities: diffuse edema (1 - 2+); left leg boot in place Skin: No rash or subcu 9 Objective Data Vital Signs Vital Signs: Vital Signs - 24 hr 09/25/24 12:00 09/25/24 12:00 09/25/24 16:00 Temperature 97.8 F 97.0 F L Pulse Rate 77 71 84 Respiratory Rate 18 18 Blood Pressure 144/66 H 170/71 H Pulse Oximetry 99 100 Oxygen Delivery 09/25/24 16:00 09/25/24 20:00 09/25/24 20:00 Temperature 97.7 F Pulse Rate 72 85 Respiratory Rate 17 Blood Pressure 143/64 H Pulse Oximetry 100 Oxygen Delivery Room Air 09/25/24 23:45 09/26/24 04:00 Temperature 97.8 F 97.6 F Pulse Rate 83 85 Respiratory Rate 14 14 Blood Pressure 133/64 145/70 H Pulse Oximetry 100 100 Oxygen Delivery Intake/Output Intake/Output: Intake & Output 09/23/24 09/24/24 09/25/24 09/26/24 23:59 23:59 23:59 23:59 Intake Total 6525 509 7692 400 Output Total 850 750 450 Balance 350 720 266 -50 Meds/Results Medications: Active Medications Generic Name Dose Route Start Last Admin Trade Name Freq PRN Reason Stop Dose Admin Acetaminophen 650 mg 09/26/24 07:08 Acetaminophen 325 Mg Tablet PO Q6H PRN Mild Pain (1-3) or Fever Hydrocodone Bitart/Acetaminophen 1 tab 09/23/24 11:21 09/25/24 09:17 Hydrocodone/Acetaminophen (*Crx) 5-325 Mg Tablet PO 1 tab Q6H PRN Administration Pain Rated 4-6 Albuterol/Ipratropium 3 ml 09/24/24 07:54 Ipratropium 0.5 Mg/Albuterol Sulfate 2.5 Mg Ampul.Neb 3 Ml INHALATION Q6HRT PRN Shortness Of Breath Apixaban 2.5 mg 09/07/24 09:30 09/25/24 21:36 Apixaban 2.5 Mg Tablet PO 2.5 mg Q12HR NAHOMI Administration Artificial Tears 1 drop 09/07/24 09:35 09/25/24 21:37 Artificial Tears Ophth Soln 15 Ml Bottle RIGHT EYE 1 drop Q12HR NAHOMI Administration Bisacodyl 10 mg 09/25/24 09:00 09/25/24 09:12 Bisacodyl 10 Mg Suppository RECTAL 09/28/24 08:59 10 mg QAM NAHOMI Administration Brimonidine Tartrate 1 drop 09/07/24 09:30 09/25/24 21:37 Brimonidine Tartrate 0.2% Op Soln 5 Ml Btl EACH EYE 1 drop Q12HR NAHOMI Administration Bumetanide 2 mg 09/23/24 11:25 09/24/24 16:13 Bumetanide Inj 1 Mg/4 Ml Vial IV PUSH 2 mg BID NAHOMI Administration Dextrose 12.5 gm 09/07/24 09:15 Dextrose 50% 25 Gm/50 Ml Syringe IV PUSH PRN PRN Hypoglycemia Protocol Dorzolamide HCl 1 drop 09/07/24 09:30 09/25/24 21:37 Dorzolamide Hcl 2% Ophth Drops RIGHT EYE 1 drop Q12HR NAHOMI Administration Glucagon 1 mg 09/07/24 09:15 Glucagon For Inj 1 Mg Vial IM PRN PRN Hypoglycemia Protocol Glucose 15 gm 09/07/24 09:15 Glucose Oral Gel 15 Gm Of Glucse In 37.5 Gm Tube PO PRN PRN Hypoglycemia Protocol Guaifenesin 600 mg 09/24/24 09:00 09/25/24 21:38 Guaifenesin 12 Hr 600 Mg Tabcr PO 600 mg Q12HR NAHOMI Administration Guaifenesin/Dextromethorphan 5 ml 09/18/24 15:30 09/25/24 09:18 Guaifenesin/Dextromethorphan 10 Ml Udc PO 5 ml Q4H PRN Administration Cough Dextrose 1,000 mls @ 100 mls/hr 09/07/24 09:15 Dextrose 5% 1,000 Ml IVPB PRN PRN Hypoglycemia Protocol Methylprednisolone Sodium 116 mls @ 200 mls/hr 09/25/24 13:00 09/25/24 17:25 Succinate 1,000 mg/ Dextrose IVPB 09/27/24 09:35 Infused QAM [facility] Infusion Insulin Aspart 2 - 5 units 09/17/24 08:00 09/25/24 18:19 Insulin Aspart (*Bkc) 100 Units/Ml SUB-Q Not Given TIDWM [facility] Protocol Insulin Glargine 25 units 09/24/24 21:00 09/25/24 21:38 Insulin Glargine (*Bkc) 100 Units/Ml SUB-Q 25 units HS NAHOMI Administration Loratadine 5 mg 09/18/24 15:35 09/25/24 09:12 Loratadine 5 Mg Tablet PO 5 mg QAM [facility] Administration Metoprolol Succinate 100 mg 09/07/24 09:00 09/25/24 09:11 Metoprolol Succinate Ext Rel 100 Mg Tabcr PO 100 mg QAM [facility] Administration Morphine Sulfate 1 mg 09/26/24 07:10 Morphine Sulfate (*Crx) 2 Mg/Ml Inj IV PUSH Q4H PRN Pain Rated 7-10 Naloxone HCl 0.1 mg 09/07/24 08:19 Naloxone Hcl 0.4 Mg/Ml Vial IV PUSH Q2M PRN Opiate Reversal Nifedipine 30 mg 09/25/24 09:00 Nifedipine 30 Mg Tab.Er.24 PO QAM [facility] Ondansetron HCl 4 mg 09/07/24 09:15 09/13/24 14:52 Ondansetron Inj 4 Mg/2 Ml Vial IV PUSH 4 mg Q6H PRN Administration Nausea And Vomiting Oxycodone HCl 5 mg 09/17/24 19:48 09/20/24 12:47 Oxycodone Hcl (*Crx) 5 Mg Tab Ir PO 5 mg Q4H PRN Administration Pain Rated 7-10 Pantoprazole Sodium 40 mg 09/23/24 21:00 09/25/24 21:39 Pantoprazole Sodium Iv 40 Mg Vial IV PUSH 40 mg Q12HR NAHOMI Administration Polyethylene Glycol 17 gm 09/24/24 19:35 09/25/24 16:46 Polyethylene Glycol 3350 17 Gm Powd.Pack PO 17 gm BID NAHOMI Administration Polysaccharide Iron Complex 150 mg 09/07/24 17:00 09/25/24 16:46 Polysaccharide Iron Complex 150 Mg Capsule PO 150 mg BIDWM NAHOMI Administration Rosuvastatin Calcium 5 mg 09/07/24 09:00 09/25/24 09:11 Rosuvastatin 5 Mg Tablet PO 5 mg QAM NAHOMI Administration Sodium Bicarbonate 1,300 mg 09/10/24 09:00 09/25/24 16:46 Sodium Bicarbonate Tab 650 Mg Tablet PO 1,300 mg TID NAHOMI Administration Timolol Maleate 1 drop 09/07/24 09:35 09/25/24 21:37 Timolol Maleate 0.5% Op Soln 5 Ml Bottle EACH EYE 1 drop Q12HR NAHOMI Administration Radiology Results: ITS Impressions Abdomen/Pelvis CT 09/07/24 05:37 Impression: Minimal bilateral pleural effusions. Horseshoe kidney. Elbow X-Ray 09/17/24 12:16 IMPRESSION: 1. No fracture. Knee X-Ray 09/17/24 12:17 IMPRESSION: 1. Minimally displaced extra articular fracture of the proximal left fibular diaphysis. Correlate for any associated ankle pain and consider additional radiographs of the more distal tibia and fibula as clinically indicated. Tibia/Fibula X-Ray 09/17/24 15:54 IMPRESSION: 1. Fractures of proximal and distal fibula. 2. Comminuted fracture of distal tibia. Ankle X-Ray 09/17/24 15:55 IMPRESSION: Trimalleolar fracture of the left ankle, as detailed above. Foot X-Ray 09/21/24 17:53 IMPRESSION: 1. No fracture. Chest X-Ray 09/22/24 17:31 IMPRESSION: No acute cardiopulmonary process. Chest/Abdomen/Pelvis CT 09/23/24 22:42 IMPRESSION: Small left and trace right pleural effusions. Pancreatic head edema and peripancreatic inflammatory changes suggestive of acute interstitial pancreatitis. Correlate with pancreatic labs. Possible fecal impaction. Small volume ascites. Diffuse body wall edema. Labs Labs: Laboratory Results - last 24 hr 09/23/24 09/23/24 09/25/24 20:39 23:12 10:53 WBC RBC Hgb Hct MCV MCH MCHC RDW Plt Count MPV Immature Gran % (Auto) Neut % (Auto) Lymph % (Auto) Tucker % (Auto) Eos % (Auto) Baso % (Auto) Lymph # (Auto) Tucker # (Auto) Eos # (Auto) Baso # (Auto) Abs Immat Gran (auto) Absolute Neuts (auto) Absolute Nucleated RBC Nucleated RBC % Sodium Potassium Chloride Carbon Dioxide Anion Gap BUN Creatinine Estim Creat Clear Calc Estimated GFR Glucose POC Capillary Glucose Calcium Phosphorus Magnesium Total Bilirubin AST ALT Alkaline Phosphatase Total Protein Albumin Lipase Urine Color Yellow Urine Appearance Cloudy H Urine pH 8.0 Ur Specific [place] 1.017 Urine Protein 4+ H Urine Glucose (UA) Trace H Urine Ketones Negative Ur Blood (Man) Non-hemolyzed trace H Urine Nitrate Negative Urine Bilirubin Negative Urine Urobilinogen 0.2 Ur Leukocyte Esterase Trace H Add Ur Microanalysis Reviewed Urine RBC 51-100 H Urine WBC 0-5 Ur Squamous Epith Cells None seen Urine Bacteria 4+ H Urine Casts 6-10 Ur Random Creatinine 34 U Random Total Protein 419 H Protein/Creatinin Ratio 04883 H Add Miscellaneous Test See note 09/25/24 09/25/24 09/25/24 11:39 16:57 20:58 WBC RBC Hgb Hct MCV MCH MCHC RDW Plt Count MPV Immature Gran % (Auto) Neut % (Auto) Lymph % (Auto) Tucker % (Auto) Eos % (Auto) Baso % (Auto) Lymph # (Auto) Tucker # (Auto) Eos # (Auto) Baso # (Auto) Abs Immat Gran (auto) Absolute Neuts (auto) Absolute Nucleated RBC Nucleated RBC % Sodium Potassium Chloride Carbon Dioxide Anion Gap BUN Creatinine Estim Creat Clear Calc Estimated GFR Glucose POC Capillary Glucose 142 H 126 H 199 H Calcium Phosphorus Magnesium Total Bilirubin AST ALT Alkaline Phosphatase Total Protein Albumin Lipase Urine Color Urine Appearance Urine pH Ur Specific [place] Urine Protein Urine Glucose (UA) Urine Ketones Ur Blood (Man) Urine Nitrate Urine Bilirubin Urine Urobilinogen Ur Leukocyte Esterase Add Ur Microanalysis Urine RBC Urine WBC Ur Squamous Epith Cells Urine Bacteria Urine Casts Ur Random Creatinine U Random Total Protein Protein/Creatinin Ratio Add Miscellaneous Test 09/26/24 09/26/24 07:45 08:03 WBC 12.7 H RBC 3.20 L Hgb 9.3 L Hct 29.1 L MCV 90.9 MCH 29.1 MCHC 32.0 RDW 15.9 H Plt Count 106 L MPV 11.7 H Immature Gran % (Auto) 1.2 H Neut % (Auto) 85.0 H Lymph % (Auto) 7.2 L Tucker % (Auto) 6.4 Eos % (Auto) 0.0 Baso % (Auto) 0.2 Lymph # (Auto) 0.92 Tucker # (Auto) 0.8 H Eos # (Auto) 0.0 Baso # (Auto) 0.0 Abs Immat Gran (auto) 0.15 H Absolute Neuts (auto) 10.8 H Absolute Nucleated RBC 0.000 Nucleated RBC % 0.0 Sodium 133 L Potassium 4.3 Chloride 103 Carbon Dioxide 25 Anion Gap 5 BUN 82 H Creatinine 2.99 H Estim Creat Clear Calc 23 Estimated GFR 16 L Glucose 195 H POC Capillary Glucose 206 H Calcium 7.4 L Phosphorus 4.4 Magnesium 2.2 Total Bilirubin 1.1 AST 26 ALT 21 Alkaline Phosphatase 105 Total Protein 5.0 L Albumin 2.1 L Lipase 496 H Urine Color Urine Appearance Urine pH Ur Specific [place] Urine Protein Urine Glucose (UA) Urine Ketones Ur Blood (Man) Urine Nitrate Urine Bilirubin Urine Urobilinogen Ur Leukocyte Esterase Add Ur Microanalysis Urine RBC Urine WBC Ur Squamous Epith Cells Urine Bacteria Urine Casts Ur Random Creatinine U Random Total Protein Protein/Creatinin Ratio Add Miscellaneous Test
[2024-09-26] MEDS: APIXABAN 2.5 MG TABLET PO (09:30)
[2024-09-26] MEDS: BISACODYL 10 MG SUPPOSITORY RECTAL (09:30)
[2024-09-26] MEDS: PANTOPRAZOLE SODIUM IV 40 MG VIAL IV PUSH ×2 (09:30→22:22)
--- NOTE | 2024-09-26 12:37 | PM.IMPN ---
Progress Note: A&P Assessment and Plan (1) Fall from ground level: Code(s): W18.30XA - Fall on same level, unspecified, initial encounter Status: Acute Assessment and Plan: Patient was admitted on 09/07 and had a fall while hospitalized on 09/17. Likely mechanical due to generalized muscle weakness. She slid down to the floor with PT in room. Rt elbow xray showing no fracture. Rt knee xray showing mild OA. She later had a right foot xray showing no fx She was found to have minimally displaced extra-articular fracture of the proximal left fibular diaphysis, distal fibular fx and comminuted fracture of the distal tibia. Left ankle xray again showing comminuted fracture of the anterior distal tibia that extends into the tibiotalar joint space, additional fracture deformity within the medial and lateral malleolus. The fracture within the medial malleolus extends into the joint space and articular surface of the tibiotalar joint. Ortho consulted and appreciate their input. Patient is not a surgical candidate. She was placed in fracture boot. PT/OT treatment with Ortho precautions. Will likely need SNF/rehab placement. Surgical intervention to be considered when her overall medical condition improves. Continue supportive care with analgesics. (2) Fracture of left proximal fibula: Code(s): S82.832A - Other fracture of upper and lower end of left fibula, initial encounter for closed fracture Status: Acute Assessment and Plan: As above. (3) Closed left ankle fracture: Qualifiers: Encounter type: initial encounter Qualified Code(s): S82.892A - Other fracture of left lower leg, initial encounter for closed fracture Code(s): S82.892A - Other fracture of left lower leg, initial encounter for closed fracture Status: Acute Assessment and Plan: As above. (4) Anemia: Code(s): D64.9 - Anemia, unspecified Status: Acute Assessment and Plan: Baseline hgb unclear. Hgb around 10 when she is not hospitalized. Hgb 10 on admission but dropped to 7-8 range. Hgb was 7.2 on 09/17 but when rechecked on 09/21, Hgb critical at 3.9 (repeat was 3.8). Also with drop in plt count. No evidence of acute blood loss anemia. No schistocytes seen on CBC 09/22 or 1/30 and not mentioned prior. Bili normal She received 4U PRBCs. CT Ch/A/P showing no evidence of acute blood loss but shows anasarca, possible pancreatitis and fecal impaction. Occult blood of stool negative on 09/09/24. B12/folate normal in July. On 09/12/24, Iron 36, TIBC 161 and iron sat 22%. Patient on apixaban for AFib and remains on this medication. Hgb climbed to 10.7 and stable in the 9-10 range Etiology unclear but consider hemolysis. Acute GI bleed seems unlikely. Continue to follow H/H closely and transfuse to a stable hgb. Continue PPI (5) Acute on chronic renal failure: Code(s): N17.9 - Acute kidney failure, unspecified; N18.9 - Chronic kidney disease, unspecified Status: Acute Assessment and Plan: Patient with CKD stage 4. Baseline Cr 2.6-3.3 range. Patient with BUTCH with Cr 4.21 on admission She was treated with IV fluids with improvement. Patient has some form of autoimmune disease that probably is affecting her kidneys. Hepatitis panel and HIV negative. Immunoglobulin levels normal (IgM elevated). RF negative. DULCE positive and 1:1280 and nuclear, homogeneous pattern. C3 low, C4 normal and CH50 elevated. Anti-myeloperoxidase positive. Antiprotienase and GBM negative. Nephrology consulted and appreciate their input. Consider SLE or microscopic polyangiitis. Consider also hydralazine induced SLE or drug-induced ANCA associated vasulitis due to hydralazine. SLE seems less likely. Has nephrotic range proteinuria as well. Was on Prednisone. She has refused albumin here. ESR 24. C3 and C4 low. Good UOP with Bumex but Cr was up to 3.14. BP was too well controlled so Procardia held. Pulsed does steroids started. Cr back down. Will resume Bumex at lower dose. Eliquis held for possible renal biopsy (6) Atrial fibrillation: Code(s): I48.91 - Unspecified atrial fibrillation Status: Acute Assessment and Plan: Rate controlled Continue Eliquis and Metoprolol (7) Diabetes mellitus: Qualifiers: Diabetes mellitus complication detail: with diabetic retinopathy Diabetes mellitus complication status: with ophthalmic complications Diabetes mellitus correction insulin use: without insurance rater use Diabetes mellitus macular edema: without macular edema Diabetes mellitus type: type 2 Diabetic retinopathy severity: with unspecified retinopathy severity Laterality: right Qualified Code(s): E11.319 - Type 2 diabetes mellitus with unspecified diabetic retinopathy without macular edema Code(s): E11.9 - Type 2 diabetes mellitus without complications Status: Chronic Assessment and Plan: HgbA1C is 5.3%. The patient's blood glucose was reviewed on 09/26 Glucose better controlled now Continue AccuCheks covering with sliding scale. Hypoglycemia protocol available as needed. Continue to follow (8) Hypertension: Code(s): I10 - Essential (primary) hypertension Status: Chronic Assessment and Plan: Home meds: Hydralazine 50mg TID, Metoprolol 100mg ER, Amlodipine 5mg Blood pressure reviewed on 09/26 Changed Norvasc to Procardia XL. Continue metoprolol. Hydralazine stopped. Bumex added. BP became soft so Procardia and Bumex held. Allow for mild permissive HTN. (9) Failure to thrive: Status: Acute Assessment and Plan: Real Estate Representative consulted. Daily weights. Encouraged with meals and nutritional supplement. (10) Pericarditis: Code(s): I31.9 - Disease of pericardium, unspecified Status: Acute Assessment and Plan: Recently hospitalized for pericarditis, started on ibuprofen and colchicine and patient reports pain resolved --No NSAIDs for BUTCH/CKD --No colchicine for GI symptoms --Started on Prednisone 40mg with a taper --Seen by Cardiology -- Repeat echocardiogram with no pericardial effusion. Pericarditis could be related to SLE. Changed to pulse dose steroids. (11) Enteritis: Code(s): K52.9 - Noninfective gastroenteritis and colitis, unspecified Status: Acute Assessment and Plan: Patient with GI symptoms. C-diff negative. Seen by GI and no further recommendations for now, Colchicine dc'd. Continues to tolerate meals fairly but with very poor appetite. [employer] Forming Machine Tender consulted. Carafate was stopped today since she has been on for almost 3 weeks. Continue PPI. Antiemetics PRN. Continue supportive care. (12) Generalized muscle weakness: Code(s): M62.81 - Muscle weakness (generalized) Status: Acute Assessment and Plan: PT/OT eval and treatment with Ortho restrictions. Total CK normal. Fall precautions. (13) Urinary tract infection: Code(s): N39.0 - Urinary tract infection, site not specified Status: Inactive Assessment and Plan: UA on 09/07/2024- negative for acute UTI, repeat on 09/13/2024 with 2+ leukocyte esterase UCx 09/13 grew doss-sensitive EColi. She was treated with IV Rocephin and Cefdinir with abx therapy completed. Plan Fecal impaction - noted by CT scan. Start Miralax. Dulcolax suppostories for a few days. Having BMs per patient Possible pancreatitis - CT evidence of pancreatitis. Lipase 840. Patient without and symptoms to suggest this. Pancreatic edema from anasarca? GB absent and LFTs okay so don't believe choledocholithiasis. TG level 184. Lipase trending down. Continue to follow DVT prophylaxis - Eliquis Code status - full Subjective Date/time seen: 09/26/24 12:37 Interval history: 63yo female with CKD, DM and anxiety here for n/v and diarrhea. Feels tired. Slept okay. No n/v. +BMs. Exam Narrative: AF 98.1 153/92 92 16 99% ra Gen - NARD sitting up in a recliner Chest - faint inspiratory rhonchi. CV - RRR S1/S2 Abd - Soft, NT/ND, Positive BS Ext - diffuse edema Psych - Nml mood but depressed affect Skin - Warm and dry Objective Data Vital Signs Vital Signs: Vital Signs - 24 hr 09/25/24 16:00 09/25/24 16:00 09/25/24 20:00 Temperature 97.0 F L 97.7 F Pulse Rate 84 72 85 Respiratory Rate 18 17 Blood Pressure 170/71 H 143/64 H Pulse Oximetry 100 100 Oxygen Delivery 09/25/24 20:00 09/25/24 23:45 09/26/24 04:00 Temperature 97.8 F 97.6 F Pulse Rate 83 85 Respiratory Rate 14 14 Blood Pressure 133/64 145/70 H Pulse Oximetry 100 100 Oxygen Delivery Room Air 09/26/24 08:00 09/26/24 08:00 Temperature 98.1 F Pulse Rate 92 Respiratory Rate 16 Blood Pressure 153/92 H Pulse Oximetry 99 Oxygen Delivery Room Air Intake/Output Intake/Output: Intake & Output 09/23/24 09/24/24 09/25/24 09/26/24 23:59 23:59 23:59 23:59 Intake Total 2665 887 2273 520 Output Total 850 750 450 Balance 350 720 266 70 Meds/Results Medications: Active Medications Generic Name Dose Route Start Last Admin Trade Name Freq PRN Reason Stop Dose Admin Acetaminophen 650 mg 09/26/24 07:08 Acetaminophen 325 Mg Tablet PO Q6H PRN Mild Pain (1-3) or Fever Hydrocodone Bitart/Acetaminophen 1 tab 09/23/24 11:21 09/26/24 09:08 Hydrocodone/Acetaminophen (*Crx) 5-325 Mg Tablet PO 1 tab Q6H PRN Administration Pain Rated 4-6 Albuterol/Ipratropium 3 ml 09/24/24 07:54 Ipratropium 0.5 Mg/Albuterol Sulfate 2.5 Mg Ampul.Neb 3 Ml INHALATION Q6HRT PRN Shortness Of Breath Apixaban 2.5 mg 09/07/24 09:30 09/26/24 09:30 Apixaban 2.5 Mg Tablet PO 2.5 mg Q12HR NAHOMI Administration Artificial Tears 1 drop 09/07/24 09:35 09/26/24 08:59 Artificial Tears Ophth Soln 15 Ml Bottle RIGHT EYE 1 drop Q12HR NAHOMI Administration Bisacodyl 10 mg 09/25/24 09:00 09/26/24 09:30 Bisacodyl 10 Mg Suppository RECTAL 09/28/24 08:59 10 mg QAM NAHOMI Administration Brimonidine Tartrate 1 drop 09/07/24 09:30 09/26/24 08:59 Brimonidine Tartrate 0.2% Op Soln 5 Ml Btl EACH EYE 1 drop Q12HR NAHOMI Administration Bumetanide 2 mg 09/23/24 11:25 09/24/24 16:13 Bumetanide Inj 1 Mg/4 Ml Vial IV PUSH 2 mg BID NAHOMI Administration Dextrose 12.5 gm 09/07/24 09:15 Dextrose 50% 25 Gm/50 Ml Syringe IV PUSH PRN PRN Hypoglycemia Protocol Dorzolamide HCl 1 drop 09/07/24 09:30 09/26/24 09:00 Dorzolamide Hcl 2% Ophth Drops RIGHT EYE 1 drop Q12HR NAHOMI Administration Glucagon 1 mg 09/07/24 09:15 Glucagon For Inj 1 Mg Vial IM PRN PRN Hypoglycemia Protocol Glucose 15 gm 09/07/24 09:15 Glucose Oral Gel 15 Gm Of Glucse In 37.5 Gm Tube PO PRN PRN Hypoglycemia Protocol Guaifenesin 600 mg 09/24/24 09:00 09/26/24 09:00 Guaifenesin 12 Hr 600 Mg Tabcr PO 600 mg Q12HR NAHOMI Administration Guaifenesin/Dextromethorphan 5 ml 09/18/24 15:30 09/25/24 09:18 Guaifenesin/Dextromethorphan 10 Ml Udc PO 5 ml Q4H PRN Administration Cough Dextrose 1,000 mls @ 100 mls/hr 09/07/24 09:15 Dextrose 5% 1,000 Ml IVPB PRN PRN Hypoglycemia Protocol Methylprednisolone Sodium 116 mls @ 200 mls/hr 09/25/24 13:00 09/26/24 09:02 Succinate 1,000 mg/ Dextrose IVPB 09/27/24 09:35 200 mls/hr QAM NAHOMI Administration Insulin Aspart 2 - 5 units 09/17/24 08:00 09/26/24 10:33 Insulin Aspart (*Bkc) 100 Units/Ml SUB-Q Not Given TIDWM [facility] Protocol Insulin Glargine 25 units 09/24/24 21:00 09/25/24 21:38 Insulin Glargine (*Bkc) 100 Units/Ml SUB-Q 25 units HS NAHOMI Administration Loratadine 5 mg 09/18/24 15:35 09/26/24 09:00 Loratadine 5 Mg Tablet PO 5 mg QAM NAHOMI Administration Metoprolol Succinate 100 mg 09/07/24 09:00 09/26/24 09:00 Metoprolol Succinate Ext Rel 100 Mg Tabcr PO 100 mg QAM [facility] Administration Morphine Sulfate 1 mg 09/26/24 07:10 Morphine Sulfate (*Crx) 2 Mg/Ml Inj IV PUSH Q4H PRN Pain Rated 7-10 Naloxone HCl 0.1 mg 09/07/24 08:19 Naloxone Hcl 0.4 Mg/Ml Vial IV PUSH Q2M PRN Opiate Reversal Nifedipine 30 mg 09/25/24 09:00 Nifedipine 30 Mg Tab.Er.24 PO QAM NAHOMI Ondansetron HCl 4 mg 09/07/24 09:15 09/13/24 14:52 Ondansetron Inj 4 Mg/2 Ml Vial IV PUSH 4 mg Q6H PRN Administration Nausea And Vomiting Oxycodone HCl 5 mg 09/17/24 19:48 09/20/24 12:47 Oxycodone Hcl (*Crx) 5 Mg Tab Ir PO 5 mg Q4H PRN Administration Pain Rated 7-10 Pantoprazole Sodium 40 mg 09/23/24 21:00 09/26/24 09:30 Pantoprazole Sodium Iv 40 Mg Vial IV PUSH 40 mg Q12HR NAHOMI Administration Polyethylene Glycol 17 gm 09/24/24 19:35 09/26/24 09:00 Polyethylene Glycol 3350 17 Gm Powd.Pack PO 17 gm BID NAHOMI Administration Polysaccharide Iron Complex 150 mg 09/07/24 17:00 09/26/24 09:00 Polysaccharide Iron Complex 150 Mg Capsule PO 150 mg BIDWM NAHOMI Administration Rosuvastatin Calcium 5 mg 09/07/24 09:00 09/26/24 09:00 Rosuvastatin 5 Mg Tablet PO 5 mg QAM NAHOMI Administration Sodium Bicarbonate 1,300 mg 09/10/24 09:00 09/26/24 09:00 Sodium Bicarbonate Tab 650 Mg Tablet PO 1,300 mg TID NAHOMI Administration Timolol Maleate 1 drop 09/07/24 09:35 09/26/24 09:00 Timolol Maleate 0.5% Op Soln 5 Ml Bottle EACH EYE 1 drop Q12HR NAHOMI Administration Radiology Results: ITS Impressions Abdomen/Pelvis CT 09/07/24 05:37 Impression: Minimal bilateral pleural effusions. Horseshoe kidney. Elbow X-Ray 09/17/24 12:16 IMPRESSION: 1. No fracture. Knee X-Ray 09/17/24 12:17 IMPRESSION: 1. Minimally displaced extra articular fracture of the proximal left fibular diaphysis. Correlate for any associated ankle pain and consider additional radiographs of the more distal tibia and fibula as clinically indicated. Tibia/Fibula X-Ray 09/17/24 15:54 IMPRESSION: 1. Fractures of proximal and distal fibula. 2. Comminuted fracture of distal tibia. Ankle X-Ray 09/17/24 15:55 IMPRESSION: Trimalleolar fracture of the left ankle, as detailed above. Foot X-Ray 09/21/24 17:53 IMPRESSION: 1. No fracture. Chest X-Ray 09/22/24 17:31 IMPRESSION: No acute cardiopulmonary process. Chest/Abdomen/Pelvis CT 09/23/24 22:42 IMPRESSION: Small left and trace right pleural effusions. Pancreatic head edema and peripancreatic inflammatory changes suggestive of acute interstitial pancreatitis. Correlate with pancreatic labs. Possible fecal impaction. Small volume ascites. Diffuse body wall edema. Labs Labs: Laboratory Results - last 24 hr 09/23/24 09/25/24 09/25/24 20:39 16:57 20:58 WBC RBC Hgb Hct MCV MCH MCHC RDW Plt Count MPV Immature Gran % (Auto) Neut % (Auto) Lymph % (Auto) [place] % (Auto) Eos % (Auto) Baso % (Auto) Lymph # (Auto) [place] # (Auto) Eos # (Auto) Baso # (Auto) Abs Immat Gran (auto) Absolute Neuts (auto) Absolute Nucleated RBC Nucleated RBC % Sodium Potassium Chloride Carbon Dioxide Anion Gap BUN Creatinine Estim Creat Clear Calc Estimated GFR Glucose POC Capillary Glucose 126 H 199 H Calcium Phosphorus Magnesium Total Bilirubin AST ALT Alkaline Phosphatase Total Protein Albumin Lipase Add Miscellaneous Test See note 09/26/24 09/26/24 07:45 08:03 WBC 12.7 H RBC 3.20 L Hgb 9.3 L Hct 29.1 L MCV 90.9 MCH 29.1 MCHC 32.0 RDW 15.9 H Plt Count 106 L MPV 11.7 H Immature Gran % (Auto) 1.2 H Neut % (Auto) 85.0 H Lymph % (Auto) 7.2 L [place] % (Auto) 6.4 Eos % (Auto) 0.0 Baso % (Auto) 0.2 Lymph # (Auto) 0.92 [place] # (Auto) 0.8 H Eos # (Auto) 0.0 Baso # (Auto) 0.0 Abs Immat Gran (auto) 0.15 H Absolute Neuts (auto) 10.8 H Absolute Nucleated RBC 0.000 Nucleated RBC % 0.0 Sodium 133 L Potassium 4.3 Chloride 103 Carbon Dioxide 25 Anion Gap 5 BUN 82 H Creatinine 2.99 H Estim Creat Clear Calc 23 Estimated GFR 16 L Glucose 195 H POC Capillary Glucose 206 H Calcium 7.4 L Phosphorus 4.4 Magnesium 2.2 Total Bilirubin 1.1 AST 26 ALT 21 Alkaline Phosphatase 105 Total Protein 5.0 L Albumin 2.1 L Lipase 496 H Add Miscellaneous Test
[2024-09-26 12:43] LABS: Glucose Point of Care 244 mg/dl (65-105)
[2024-09-26] MEDS: INSULIN ASPART (*BKC) 100 UNITS/ML SUB-Q ×2 (13:21→17:14)
[2024-09-26] MEDS: BUMETANIDE INJ 1 MG/4 ML VIAL IV PUSH ×2 (13:25→16:59)
[2024-09-26 17:14] LABS: Glucose Point of Care 266 mg/dl (65-105)
[2024-09-26 21:41] LABS: Glucose Point of Care 263 mg/dl (65-105)
[2024-09-26] MEDS: INSULIN GLARGINE (*BKC) 100 UNITS/ML 25 UNITS SUB-Q (22:19)
[2024-09-27 04:00] VITALS: BP 146/78; PULSE 95; RESP 17; TEMP 36.9; O2SAT 98
[2024-09-27 07:06] LABS: Basophils Percent Auto 0.1 % (0.2-1.2); Hematocrit 29.5 % (37.0-47.0); Hemoglobin 9.5 g/dL (12.0-15.0); Immature Granulocyte Absolute 0.11 K/mm3 (0.00-0.031); Lymphocytes Absolute Auto 0.16 K/mm3 (0.9-3.2); Lymphocytes Percent Auto 1.5 % (18.3-44.2); Mean Corpuscular HGB Conc 32.2 g/dl (32-36); Mean Corpuscular Hemoglobin 29.2 pg (26-34); Mean Corpuscular Volume 90.8 fl (80-100); Mean Platelet Volume 12.2 fl (7.4-10.4); Monocytes Absolute Auto 0.4 K/mm3 (0.1-0.6); Monocytes Percent Auto 3.4 % (2.6-8.5); Platelet Count Result 120 k/mm3 (150-375); Red Blood Count 3.25 M/mm3 (4.2-5.4); Red Cell Distribution Width 15.7 % (11.5-14.5); White Blood Count 10.6 K/mm3 (4.5-10.0)
[2024-09-27 07:53] LABS: Alanine Aminotransferase 45 U/L (6-35); Albumin Level 1.9 g/dL (3.5-5.1); Alkaline Phosphatase 104 U/L (38-126); Anion Gap 5 mmol/L (4-12); Aspartate Amino Transferase 66 U/L (14-36); Bilirubin,Total 1.1 mg/dL (0.2-1.3); Blood Urea Nitrogen 93 mg/dL (7-17); Calcium 7.1 mg/dL (8.4-10.2); Carbon Dioxide 22 mmol/L (22-30); Chloride 105 mmol/L (98-107); Estimated CRCL calculation 26 ml/min; Estimated Glomerular Filt Rate 18; Glucose 264 mg/dL (65-110); Lipase 427 U/L (23-300); Magnesium 2.2 mg/dL (1.6-2.3); Phosphorus 4.9 mg/dL (2.5-4.5); Potassium 4.3 mmol/L (3.4-5.0); Sodium 132 mmol/L (137-145)
[2024-09-27 08:00] VITALS: BP 161/83; PULSE 101; RESP 18; TEMP 36.9; O2SAT 98
[2024-09-27 08:23] LABS: Glucose Point of Care 248 mg/dl (65-105)
[2024-09-27] MEDS: INSULIN ASPART (*BKC) 100 UNITS/ML SUB-Q ×3 (08:44→17:58)
[2024-09-27] MEDS: BRIMONIDINE TARTRATE 0.2% OP SOLN 5 ML BTL 1 DROP EACH EYE ×2 (08:46→21:39)
[2024-09-27 08:47] VITALS: PULSE 99
[2024-09-27] MEDS: polyethylene glycoL 3350 17 GM POWD.PACK PO (08:47)
[2024-09-27] MEDS: LORATADINE 5 MG TABLET PO (08:47)
[2024-09-27] MEDS: TIMOLOL MALEATE 0.5% OP SOLN 5 ML BOTTLE 1 DROP EACH EYE ×2 (08:47→21:39)
[2024-09-27] MEDS: METOPROLOL SUCCINATE EXT REL 100 MG TABCR PO (08:47)
[2024-09-27] MEDS: ARTIFICIAL TEARS OPHTH SOLN 15 ML BOTTLE 1 DROP RIGHT EYE ×2 (08:47→21:39)
[2024-09-27] MEDS: BUMETANIDE INJ 1 MG/4 ML VIAL IV PUSH ×2 (08:47→17:59)
[2024-09-27] MEDS: DORZOLAMIDE HCL 2% OPHTH DROPS 1 DROP RIGHT EYE ×2 (08:47→21:39)
[2024-09-27] MEDS: guaiFENesin 12 HR 600 MG TABCR PO ×2 (08:47→21:39)
[2024-09-27] MEDS: ROSUVASTATIN 5 MG TABLET PO (08:48)
[2024-09-27] MEDS: SODIUM BICARBONATE TAB 650 MG TABLET 1300 MG PO ×3 (08:48→17:59)
[2024-09-27] MEDS: POLYSACCHARIDE IRON COMPLEX 150 MG CAPSULE PO ×2 (08:48→17:59)
[2024-09-27] MEDS: PANTOPRAZOLE 40 MG TABLET PO ×2 (08:48→21:39)
--- NOTE | 2024-09-27 09:30 | PM.PNORT ---
Progress Note: A&P Assessment and Plan (1) Closed left ankle fracture: Qualifiers: Encounter type: initial encounter Qualified Code(s): S82.892A - Other fracture of left lower leg, initial encounter for closed fracture Code(s): S82.892A - Other fracture of left lower leg, initial encounter for closed fracture Status: Acute Assessment and Plan: 10 days s/p fall while working with PT. Initial radiographs revealed a left proximal fibular fracture. Follow up left tib/fib and ankle radiographs reveal a left bimalleolar ankle fracture with anterior medial plafond extension. Patient has been a poor candidate for surgical fixation given low Hgb and overall medical condition, including 4+ pitting edema. Improving/stable HgB at this time. Significant improvement in swelling. Patient ambulates independently at home at baseline. Will maintain nonoperative treatment in the interim with supportive care and immobilization in a fracture boot of the LLE until further decision by Dr. Rojas to move forward with surgical intervention. Anticoagulation will need to be held prior to surgery. (2) Fracture of left proximal fibula: Code(s): S82.832A - Other fracture of upper and lower end of left fibula, initial encounter for closed fracture Status: Acute (3) Swelling of right foot: Code(s): M79.89 - Other specified soft tissue disorders Status: Acute Assessment and Plan: Radiographs negative. (4) Anemia: Code(s): D64.9 - Anemia, unspecified Status: Acute Assessment and Plan: Improved/stable. Time Spent With Patient Time: Reviewed history, exam, radiographs and current labs with attending MD and covering surgeon, Dr. Shelley, who agrees with current plan as indicated above. No further recommendations from Dr. Shelley at this time. Subjective Subjective Date/Time Seen: 09/27/24 09:30 Interval history: Patient resting in bed. Reports overall improvement in left ankle pain. No new concerns. Review of Systems Review of Systems: All systems reviewed & are unremarkable except as noted in HPI and below Exam Const: General: cooperative and ill appearing chronically Orientation/consciousness: patient oriented x3 HENMT: Head: normal to inspection Extrem: Right upper extremity: full ROM and elbow/forearm normal to inspection, tenderness and normal ROM Left upper extremity: normal to inspection and full ROM Right lower extremity: normal to inspection, full ROM, knee (pitting edema ) Details: normal to inspection and normal ROM; no tenderness, lower leg (pitting edema ), ankle (pitting edema ) Details: no tenderness and foot (pitting edema ) Details: tenderness (forefoot ), edema (4+ pitting edema ), ecchymosis and crepitus Left lower extremity: knee Details: tenderness Location: of the proximal fibula and abnormal ROM Details: pain with active ROM, lower leg (edema ) Details: tenderness Location: of the proximal fibula, of the midshaft tibia and of the distal tibia, ankle (mild swelling ) Details: abnormal to inspection, tenderness Location: of the lateral malleolus and of the medial malleolus and abnormal ROM Details: pain with active ROM Details: with plantar flexion and with dorsiflexion; no warmth, no abrasions and no lacerations and foot (edema ) Details: tenderness, toes with normal ROM, edema Location: of the dorsal foot and vascular exam Details: dorsalis pedis pulse present Objective Data Vital Signs Vital Signs: Vital Signs - 24 hr 09/26/24 12:00 09/26/24 16:00 09/26/24 20:00 Temperature 36.7 C 36.7 C 36.9 C Pulse Rate 83 85 95 Respiratory Rate 16 16 17 Blood Pressure 173/93 H 173/94 H 160/82 H Pulse Oximetry 100 100 99 Oxygen Delivery Fraction of Inspired Oxygen 09/26/24 20:00 09/26/24 23:00 09/26/24 23:52 Temperature 36.7 C Pulse Rate 95 966 H Respiratory Rate 17 17 Blood Pressure 148/75 H Pulse Oximetry 99 97 100 Oxygen Delivery Room Air Room Air Fraction of Inspired Oxygen 21 09/27/24 04:00 09/27/24 08:00 09/27/24 08:47 Temperature 36.9 C 36.9 C Pulse Rate 95 101 H 99 Respiratory Rate 17 18 Blood Pressure 146/78 H 161/83 H Pulse Oximetry 98 98 Oxygen Delivery Fraction of Inspired Oxygen Intake/Output Intake/Output: Intake & Output 09/24/24 09/25/24 09/26/24 09/27/24 23:59 23:59 23:59 23:59 Intake Total 720 1016 760 550 Output Total 750 450 800 Balance 720 451 310 250 Meds/Results Medications: Active Medications Generic Name Dose Route Start Last Admin Trade Name Freq PRN Reason Stop Dose Admin Acetaminophen 650 mg 09/26/24 07:08 Acetaminophen 325 Mg Tablet PO Q6H PRN Mild Pain (1-3) or Fever Hydrocodone Bitart/Acetaminophen 1 tab 09/23/24 11:21 09/26/24 09:08 Hydrocodone/Acetaminophen (*Crx) 5-325 Mg Tablet PO 1 tab Q6H PRN Administration Pain Rated 4-6 Albuterol/Ipratropium 3 ml 09/24/24 07:54 Ipratropium 0.5 Mg/Albuterol Sulfate 2.5 Mg Ampul.Neb 3 Ml INHALATION Q6HRT PRN Shortness Of Breath Apixaban 2.5 mg 09/07/24 09:30 09/26/24 09:30 Apixaban 2.5 Mg Tablet PO 2.5 mg Q12HR NAHOMI Administration Artificial Tears 1 drop 09/07/24 09:35 09/27/24 08:47 Artificial Tears Ophth Soln 15 Ml Bottle RIGHT EYE 1 drop Q12HR NAHOMI Administration Bisacodyl 10 mg 09/25/24 09:00 09/26/24 09:30 Bisacodyl 10 Mg Suppository RECTAL 09/28/24 08:59 10 mg QAM NAHOMI Administration Brimonidine Tartrate 1 drop 09/07/24 09:30 09/27/24 08:46 Brimonidine Tartrate 0.2% Op Soln 5 Ml Btl EACH EYE 1 drop Q12HR NAHOMI Administration Bumetanide 1 mg 09/26/24 17:00 09/27/24 08:47 Bumetanide Inj 1 Mg/4 Ml Vial IV PUSH 1 mg BID NAHOMI Administration Dextrose 12.5 gm 09/07/24 09:15 Dextrose 50% 25 Gm/50 Ml Syringe IV PUSH PRN PRN Hypoglycemia Protocol Dorzolamide HCl 1 drop 09/07/24 09:30 09/27/24 08:47 Dorzolamide Hcl 2% Ophth Drops RIGHT EYE 1 drop Q12HR NAHOMI Administration Glucagon 1 mg 09/07/24 09:15 Glucagon For Inj 1 Mg Vial IM PRN PRN Hypoglycemia Protocol Glucose 15 gm 09/07/24 09:15 Glucose Oral Gel 15 Gm Of Glucse In 37.5 Gm Tube PO PRN PRN Hypoglycemia Protocol Guaifenesin 600 mg 09/24/24 09:00 09/27/24 08:47 Guaifenesin 12 Hr 600 Mg Tabcr PO 600 mg Q12HR NAHOMI Administration Guaifenesin/Dextromethorphan 5 ml 09/18/24 15:30 09/25/24 09:18 Guaifenesin/Dextromethorphan 10 Ml Udc PO 5 ml Q4H PRN Administration Cough Dextrose 1,000 mls @ 100 mls/hr 09/07/24 09:15 Dextrose 5% 1,000 Ml IVPB PRN PRN Hypoglycemia Protocol Methylprednisolone Sodium 116 mls @ 200 mls/hr 09/25/24 13:00 09/26/24 09:02 Succinate 1,000 mg/ Dextrose IVPB 09/27/24 09:35 200 mls/hr QAM NAHOMI Administration Ceftriaxone Sodium 1 gm in 50 mls @ 100 mls/hr 09/27/24 08:00 09/27/24 08:43 Rocephin 1 Gm/Ns 50 Ml IVPB 100 mls/hr Q24H NAHOMI Administration Vancomycin HCl 1,500 mg in 500 mls @ 250 mls/hr 09/27/24 09:00 Vancomycin 1,500 Mg/Ns 500 Ml IVPB Q36H NAHOMI Insulin Aspart 2 - 5 units 09/17/24 08:00 09/27/24 08:44 Insulin Aspart (*Bkc) 100 Units/Ml SUB-Q 2 units TIDWM NAHOMI Administration Protocol Insulin Glargine 25 units 09/24/24 21:00 09/26/24 22:19 Insulin Glargine (*Bkc) 100 Units/Ml SUB-Q 25 units HS NAHOMI Administration Loratadine 5 mg 09/18/24 15:35 09/27/24 08:47 Loratadine 5 Mg Tablet PO 5 mg QAM NAHOMI Administration Metoprolol Succinate 100 mg 09/07/24 09:00 09/27/24 08:47 Metoprolol Succinate Ext Rel 100 Mg Tabcr PO 100 mg QAM [facility] Administration Morphine Sulfate 1 mg 09/26/24 07:10 Morphine Sulfate (*Crx) 2 Mg/Ml Inj IV PUSH Q4H PRN Pain Rated 7-10 Naloxone HCl 0.1 mg 09/07/24 08:19 Naloxone Hcl 0.4 Mg/Ml Vial IV PUSH Q2M PRN Opiate Reversal Nifedipine 30 mg 09/25/24 09:00 Nifedipine 30 Mg Tab.Er.24 PO QAM NAHOMI Ondansetron HCl 4 mg 09/07/24 09:15 09/13/24 14:52 Ondansetron Inj 4 Mg/2 Ml Vial IV PUSH 4 mg Q6H PRN Administration Nausea And Vomiting Oxycodone HCl 5 mg 09/17/24 19:48 09/20/24 12:47 Oxycodone Hcl (*Crx) 5 Mg Tab Ir PO 5 mg Q4H PRN Administration Pain Rated 7-10 Pantoprazole Sodium 40 mg 09/27/24 09:00 09/27/24 08:48 Pantoprazole 40 Mg Tablet PO 40 mg Q12HR NAHOMI Administration Polyethylene Glycol 17 gm 09/24/24 19:35 09/27/24 08:47 Polyethylene Glycol 3350 17 Gm Powd.Pack PO 17 gm BID NAHOMI Administration Polysaccharide Iron Complex 150 mg 09/07/24 17:00 09/27/24 08:48 Polysaccharide Iron Complex 150 Mg Capsule PO 150 mg BIDWM NAHOMI Administration Rosuvastatin Calcium 5 mg 09/07/24 09:00 09/27/24 08:48 Rosuvastatin 5 Mg Tablet PO 5 mg QAM NAHOMI Administration Sodium Bicarbonate 1,300 mg 09/10/24 09:00 09/27/24 08:48 Sodium Bicarbonate Tab 650 Mg Tablet PO 1,300 mg TID NAHOMI Administration Timolol Maleate 1 drop 09/07/24 09:35 09/27/24 08:47 Timolol Maleate 0.5% Op Soln 5 Ml Bottle EACH EYE 1 drop Q12HR NAHOMI Administration Radiology Results: ITS Impressions Abdomen/Pelvis CT 09/07/24 05:37 Impression: Minimal bilateral pleural effusions. Horseshoe kidney. Elbow X-Ray 09/17/24 12:16 IMPRESSION: 1. No fracture. Knee X-Ray 09/17/24 12:17 IMPRESSION: 1. Minimally displaced extra articular fracture of the proximal left fibular diaphysis. Correlate for any associated ankle pain and consider additional radiographs of the more distal tibia and fibula as clinically indicated. Tibia/Fibula X-Ray 09/17/24 15:54 IMPRESSION: 1. Fractures of proximal and distal fibula. 2. Comminuted fracture of distal tibia. Ankle X-Ray 09/17/24 15:55 IMPRESSION: Trimalleolar fracture of the left ankle, as detailed above. Foot X-Ray 09/21/24 17:53 IMPRESSION: 1. No fracture. Chest X-Ray 09/22/24 17:31 IMPRESSION: No acute cardiopulmonary process. Chest/Abdomen/Pelvis CT 09/23/24 22:42 IMPRESSION: Small left and trace right pleural effusions. Pancreatic head edema and peripancreatic inflammatory changes suggestive of acute interstitial pancreatitis. Correlate with pancreatic labs. Possible fecal impaction. Small volume ascites. Diffuse body wall edema. Labs Labs: Laboratory Results - last 24 hr 09/26/24 09/26/24 09/26/24 12:35 17:10 21:27 WBC RBC Hgb Hct MCV MCH MCHC RDW Plt Count MPV Immature Gran % (Auto) Neut % (Auto) Lymph % (Auto) Dixon % (Auto) Eos % (Auto) Baso % (Auto) Lymph # (Auto) Dixon # (Auto) Eos # (Auto) Baso # (Auto) Abs Immat Gran (auto) Absolute Neuts (auto) Absolute Nucleated RBC Nucleated RBC % Sodium Potassium Chloride Carbon Dioxide Anion Gap BUN Creatinine Estim Creat Clear Calc Estimated GFR Glucose POC Capillary Glucose 244 H 266 H 263 H Calcium Phosphorus Magnesium Total Bilirubin AST ALT Alkaline Phosphatase Total Protein Albumin Lipase 09/27/24 09/27/24 06:58 07:54 WBC 10.6 H RBC 3.25 L Hgb 9.5 L Hct 29.5 L MCV 90.8 MCH 29.2 MCHC 32.2 RDW 15.7 H Plt Count 120 L MPV 12.2 H Immature Gran % (Auto) 1.0 H Neut % (Auto) 94.0 H Lymph % (Auto) 1.5 L Dixon % (Auto) 3.4 Eos % (Auto) 0.0 Baso % (Auto) 0.1 L Lymph # (Auto) 0.16 L Dixon # (Auto) 0.4 Eos # (Auto) 0.0 Baso # (Auto) 0.0 Abs Immat Gran (auto) 0.11 H Absolute Neuts (auto) 10.0 H Absolute Nucleated RBC 0.000 Nucleated RBC % 0.0 Sodium 132 L Potassium 4.3 Chloride 105 Carbon Dioxide 22 Anion Gap 5 BUN 93 H D Creatinine 2.63 H Estim Creat Clear Calc 26 Estimated GFR 18 L Glucose 264 H POC Capillary Glucose 248 H Calcium 7.1 L Phosphorus 4.9 H Magnesium 2.2 Total Bilirubin 1.1 AST 66 H ALT 45 H Alkaline Phosphatase 104 Total Protein 4.0 L Albumin 1.9 L Lipase 427 H
[2024-09-27] MEDS: methylPREDNISolone SOD SUCC 1,000 MG in DEXTROSE 5% 100 ML 200 MG IVPB (09:53)
--- NOTE | 2024-09-27 10:50 | P.PNIM_ITS ---
Progress Note: A&P Assessment and Plan (1) Fall from ground level: Code(s): W18.30XA - Fall on same level, unspecified, initial encounter Status: Acute Assessment and Plan: Patient was admitted on 09/07 and had a fall while hospitalized on 09/17. Likely mechanical due to generalized muscle weakness. She slid down to the floor with PT in room. Rt elbow xray showing no fracture. Rt knee xray showing mild OA. She later had a right foot xray showing no fx She was found to have minimally displaced extra-articular fracture of the proximal left fibular diaphysis, distal fibular fx and comminuted fracture of the distal tibia. Left ankle xray again showing comminuted fracture of the anterior distal tibia that extends into the tibiotalar joint space, additional fracture deformity within the medial and lateral malleolus. The fracture within the medial malleolus extends into the joint space and articular surface of the tibiotalar joint. Ortho consulted and appreciate their input. Patient is not a surgical candidate. She was placed in fracture boot. PT/OT treatment with Ortho precautions. Will likely need SNF/rehab placement. Surgical intervention to be considered when her overall medical condition improves. Continue supportive care with analgesics. (2) Fracture of left proximal fibula: Code(s): S82.832A - Other fracture of upper and lower end of left fibula, initial encounter for closed fracture Status: Acute Assessment and Plan: As above. (3) Closed left ankle fracture: Qualifiers: Encounter type: initial encounter Qualified Code(s): S82.892A - Other fracture of left lower leg, initial encounter for closed fracture Code(s): S82.892A - Other fracture of left lower leg, initial encounter for closed fracture Status: Acute Assessment and Plan: As above. (4) Anemia: Code(s): D64.9 - Anemia, unspecified Status: Acute Assessment and Plan: Baseline hgb unclear. Hgb around 10 when she is not hospitalized. Hgb 10 on admission but dropped to 7-8 range. Hgb was 7.2 on 09/17 but when rechecked on 09/21, Hgb critical at 3.9 (repeat was 3.8). Also with drop in plt count. No evidence of acute blood loss anemia. No schistocytes seen on CBC 09/22 or 1/30 and not mentioned prior. Bili normal She received 4U PRBCs. CT Ch/A/P showing no evidence of acute blood loss but shows anasarca, possible pancreatitis and fecal impaction. Occult blood of stool negative on 09/09/24. B12/folate normal in July. On 09/12/24, Iron 36, TIBC 161 and iron sat 22%. Patient on apixaban for AFib and remains on this medication. Hgb climbed to 10.7 and stable in the 9-10 range Etiology unclear but consider hemolysis. Acute GI bleed seems unlikely. Continue to follow H/H closely and transfuse to a stable hgb. Continue PPI (5) Acute on chronic renal failure: Code(s): N17.9 - Acute kidney failure, unspecified; N18.9 - Chronic kidney disease, unspecified Status: Acute Assessment and Plan: Patient with CKD stage 4. Baseline Cr 2.6-3.3 range. Patient with BUTCH with Cr 4.21 on admission She was treated with IV fluids with improvement. Patient has some form of autoimmune disease that probably is affecting her kidneys. Hepatitis panel and HIV negative. Immunoglobulin levels normal (IgM elevated). RF negative. DULCE positive and 1:1280 and nuclear, homogeneous pattern. C3 low, C4 normal and CH50 elevated. Anti-myeloperoxidase positive. Antiprotienase and GBM negative. Nephrology consulted and appreciate their input. Consider SLE or microscopic polyangiitis. Consider also hydralazine induced SLE or hydralazine-induced ANCA associated vasculitis. SLE seems less likely. Has nephrotic range proteinuria Was on Prednisone. She has refused albumin here. ESR 24. C3 and C4 low. Good UOP with Bumex but Cr was up to 3.14. BP was too well controlled so Procardia held. Pulsed does steroids started. was agreeable for Albumin Cr back down. Bumex at lower dose resumed. Eliquis held for possible renal biopsy (6) Urinary tract infection: Code(s): N39.0 - Urinary tract infection, site not specified Status: Inactive Assessment and Plan: UCx on 09/07 was negative but repeat UCx grew pansensitive EColi on 09/13 treated with Rocephin and then Cefdinir She completed a course of abx. Repeat UA (09/25) showing 4+ protein, trace LE, 51-100 RBC and 0-5 WBC with 4+ bacteria. No squamous cells seen. UCx growing EColi 100K colonies and Enterococcus 100K colonies. Unclear if this is a true infection with no WBC but with high colony counts and no squamous cells. Start Rocephin and Vanco. Narrow coverage when able. 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 The patient's blood glucose was reviewed on 09/26 Glucose better controlled now Continue AccuCheks covering with sliding scale. Hypoglycemia protocol available as needed. Continue to follow (9) Hypertension: Code(s): I10 - Essential (primary) hypertension Status: Chronic Assessment and Plan: Home meds: Hydralazine 50mg TID, Metoprolol 100mg ER, Amlodipine 5mg Blood pressure reviewed on 09/27 Changed Norvasc to Procardia XL. Continued metoprolol. Hydralazine stopped. Bumex added. BP became soft so Procardia and Bumex held. BP better. Bumex continued at lower dose. Continue metoprolol. Continue to hold Procardia (10) Failure to thrive: Status: Acute Assessment and Plan: Architecture Intern consulted. Daily weights. Encouraged with meals and nutritional supplement. (11) Pericarditis: Code(s): I31.9 - Disease of pericardium, unspecified Status: Acute Assessment and Plan: Recently hospitalized for pericarditis, started on ibuprofen and colchicine and patient reports pain resolved --No NSAIDs for BUTCH/CKD --No colchicine for GI symptoms --Started on Prednisone 40mg with a taper --Seen by Cardiology -- Repeat echocardiogram with no pericardial effusion. Pericarditis could be related to SLE. Changed to pulse dose steroids. (12) Enteritis: Code(s): K52.9 - Noninfective gastroenteritis and colitis, unspecified Status: Acute Assessment and Plan: Patient with GI symptoms. C-diff negative. Seen by GI and no further recommendations for now, Colchicine dc'd. Continues to tolerate meals fairly but with very poor appetite. Waiter/Waitress Formal consulted. Carafate was stopped today since she has been on for almost 3 weeks. Continue PPI. Antiemetics PRN. Continue supportive care. (13) Generalized muscle weakness: Code(s): M62.81 - Muscle weakness (generalized) Status: Acute Assessment and Plan: PT/OT eval and treatment with Ortho restrictions. Total CK normal. Fall precautions. Plan Fecal impaction - noted by CT scan. Start Miralax. Dulcolax suppostories for a few days. Having BMs now Possible pancreatitis - CT evidence of pancreatitis. Lipase 840. Patient without and symptoms to suggest this. Pancreatic edema from anasarca? GB absent and LFTs okay so don't believe choledocholithiasis. TG level 184. Lipase trending down. Continue to follow DVT prophylaxis - Miguelinaquis Code status - full Subjective Date/time seen: 09/27/24 10:50 Interval history: 63yo female with CKD, DM and anxiety here for n/v and diarrhea. Slept okay. No Cp or SOB. No n/v. Eating well. Exam Narrative: AF 98.5 161/83 99 18 98% ra Gen - NARD Chest - clear anteriorly ernesto inspiratory rhonchi in the flanks. CV - RRR S1/S2 Abd - Soft, NT/ND, Positive BS Ext - diffuse edema but improved Psych - Nml mood but depressed affect Skin - Warm and dry Objective Data Vital Signs Vital Signs: Vital Signs - 24 hr 09/26/24 12:00 09/26/24 16:00 09/26/24 20:00 Temperature 98.1 F 98.1 F 98.4 F Pulse Rate 83 85 95 Respiratory Rate 16 16 17 Blood Pressure 173/93 H 173/94 H 160/82 H Pulse Oximetry 100 100 99 Oxygen Delivery Fraction of Inspired Oxygen 09/26/24 20:00 09/26/24 23:00 09/26/24 23:52 Temperature 98.1 F Pulse Rate 95 966 H Respiratory Rate 17 17 Blood Pressure 148/75 H Pulse Oximetry 99 97 100 Oxygen Delivery Room Air Room Air Fraction of Inspired Oxygen 21 09/27/24 04:00 09/27/24 08:00 09/27/24 08:47 Temperature 98.4 F 98.5 F Pulse Rate 95 101 H 99 Respiratory Rate 17 18 Blood Pressure 146/78 H 161/83 H Pulse Oximetry 98 98 Oxygen Delivery Fraction of Inspired Oxygen Intake/Output Intake/Output: Intake & Output 09/24/24 09/25/24 09/26/24 09/27/24 23:59 23:59 23:59 23:59 Intake Total 720 1016 876 550 Output Total 750 450 800 Balance 720 266 426 -250 Meds/Results Medications: Active Medications Generic Name Dose Route Start Last Admin Trade Name Freq PRN Reason Stop Dose Admin Acetaminophen 650 mg 09/26/24 07:08 Acetaminophen 325 Mg Tablet PO Q6H PRN Mild Pain (1-3) or Fever Hydrocodone Bitart/Acetaminophen 1 tab 09/23/24 11:21 09/26/24 09:08 Hydrocodone/Acetaminophen (*Crx) 5-325 Mg Tablet PO 1 tab Q6H PRN Administration Pain Rated 4-6 Albuterol/Ipratropium 3 ml 09/24/24 07:54 Ipratropium 0.5 Mg/Albuterol Sulfate 2.5 Mg Ampul.Neb 3 Ml INHALATION Q6HRT PRN Shortness Of Breath Apixaban 2.5 mg 09/07/24 09:30 09/26/24 09:30 Apixaban 2.5 Mg Tablet PO 2.5 mg Q12HR NAHOMI Administration Artificial Tears 1 drop 09/07/24 09:35 09/27/24 08:47 Artificial Tears Ophth Soln 15 Ml Bottle RIGHT EYE 1 drop Q12HR NAHOMI Administration Bisacodyl 10 mg 09/25/24 09:00 09/26/24 09:30 Bisacodyl 10 Mg Suppository RECTAL 09/28/24 08:59 10 mg QAM NAHOMI Administration Brimonidine Tartrate 1 drop 09/07/24 09:30 09/27/24 08:46 Brimonidine Tartrate 0.2% Op Soln 5 Ml Btl EACH EYE 1 drop Q12HR NAHOMI Administration Bumetanide 1 mg 09/26/24 17:00 09/27/24 08:47 Bumetanide Inj 1 Mg/4 Ml Vial IV PUSH 1 mg BID NAHOMI Administration Dextrose 12.5 gm 09/07/24 09:15 Dextrose 50% 25 Gm/50 Ml Syringe IV PUSH PRN PRN Hypoglycemia Protocol Dorzolamide HCl 1 drop 09/07/24 09:30 09/27/24 08:47 Dorzolamide Hcl 2% Ophth Drops RIGHT EYE 1 drop Q12HR NAHOMI Administration Glucagon 1 mg 09/07/24 09:15 Glucagon For Inj 1 Mg Vial IM PRN PRN Hypoglycemia Protocol Glucose 15 gm 09/07/24 09:15 Glucose Oral Gel 15 Gm Of Glucse In 37.5 Gm Tube PO PRN PRN Hypoglycemia Protocol Guaifenesin 600 mg 09/24/24 09:00 09/27/24 08:47 Guaifenesin 12 Hr 600 Mg Tabcr PO 600 mg Q12HR NAHOMI Administration Guaifenesin/Dextromethorphan 5 ml 09/18/24 15:30 09/25/24 09:18 Guaifenesin/Dextromethorphan 10 Ml Udc PO 5 ml Q4H PRN Administration Cough Dextrose 1,000 mls @ 100 mls/hr 09/07/24 09:15 Dextrose 5% 1,000 Ml IVPB PRN PRN Hypoglycemia Protocol Ceftriaxone Sodium 1 gm in 50 mls @ 100 mls/hr 09/27/24 08:00 09/27/24 08:43 Rocephin 1 Gm/Ns 50 Ml IVPB 100 mls/hr Q24H NAHOMI Administration Vancomycin HCl 1,500 mg in 500 mls @ 250 mls/hr 09/27/24 09:00 Vancomycin 1,500 Mg/Ns 500 Ml IVPB Q36H NAHOMI Insulin Aspart 2 - 5 units 09/17/24 08:00 09/27/24 08:44 Insulin Aspart (*Bkc) 100 Units/Ml SUB-Q 2 units TIDWM NAHOMI Administration Protocol Insulin Glargine 25 units 09/24/24 21:00 09/26/24 22:19 Insulin Glargine (*Bkc) 100 Units/Ml SUB-Q 25 units HS NAHOMI Administration Loratadine 5 mg 09/18/24 15:35 09/27/24 08:47 Loratadine 5 Mg Tablet PO 5 mg QAM NAHOMI Administration Metoprolol Succinate 100 mg 09/07/24 09:00 09/27/24 08:47 Metoprolol Succinate Ext Rel 100 Mg Tabcr PO 100 mg QAM NAHOMI Administration Morphine Sulfate 1 mg 09/26/24 07:10 Morphine Sulfate (*Crx) 2 Mg/Ml Inj IV PUSH Q4H PRN Pain Rated 7-10 Naloxone HCl 0.1 mg 09/07/24 08:19 Naloxone Hcl 0.4 Mg/Ml Vial IV PUSH Q2M PRN Opiate Reversal Nifedipine 30 mg 09/25/24 09:00 Nifedipine 30 Mg Tab.Er.24 PO QAM [facility] Ondansetron HCl 4 mg 09/07/24 09:15 09/13/24 14:52 Ondansetron Inj 4 Mg/2 Ml Vial IV PUSH 4 mg Q6H PRN Administration Nausea And Vomiting Oxycodone HCl 5 mg 09/17/24 19:48 09/20/24 12:47 Oxycodone Hcl (*Crx) 5 Mg Tab Ir PO 5 mg Q4H PRN Administration Pain Rated 7-10 Pantoprazole Sodium 40 mg 09/27/24 09:00 09/27/24 08:48 Pantoprazole 40 Mg Tablet PO 40 mg Q12HR NAHOMI Administration Polyethylene Glycol 17 gm 09/24/24 19:35 09/27/24 08:47 Polyethylene Glycol 3350 17 Gm Powd.Pack PO 17 gm BID NAHOMI Administration Polysaccharide Iron Complex 150 mg 09/07/24 17:00 09/27/24 08:48 Polysaccharide Iron Complex 150 Mg Capsule PO 150 mg BIDWM NAHOMI Administration Rosuvastatin Calcium 5 mg 09/07/24 09:00 09/27/24 08:48 Rosuvastatin 5 Mg Tablet PO 5 mg QAM [facility] Administration Sodium Bicarbonate 1,300 mg 09/10/24 09:00 09/27/24 08:48 Sodium Bicarbonate Tab 650 Mg Tablet PO 1,300 mg TID NAHOMI Administration Timolol Maleate 1 drop 09/07/24 09:35 09/27/24 08:47 Timolol Maleate 0.5% Op Soln 5 Ml Bottle EACH EYE 1 drop Q12HR NAHOMI Administration Radiology Results: ITS Impressions Abdomen/Pelvis CT 09/07/24 05:37 Impression: Minimal bilateral pleural effusions. Horseshoe kidney. Elbow X-Ray 09/17/24 12:16 IMPRESSION: 1. No fracture. Knee X-Ray 09/17/24 12:17 IMPRESSION: 1. Minimally displaced extra articular fracture of the proximal left fibular diaphysis. Correlate for any associated ankle pain and consider additional radiographs of the more distal tibia and fibula as clinically indicated. Tibia/Fibula X-Ray 09/17/24 15:54 IMPRESSION: 1. Fractures of proximal and distal fibula. 2. Comminuted fracture of distal tibia. Ankle X-Ray 09/17/24 15:55 IMPRESSION: Trimalleolar fracture of the left ankle, as detailed above. Foot X-Ray 09/21/24 17:53 IMPRESSION: 1. No fracture. Chest X-Ray 09/22/24 17:31 IMPRESSION: No acute cardiopulmonary process. Chest/Abdomen/Pelvis CT 09/23/24 22:42 IMPRESSION: Small left and trace right pleural effusions. Pancreatic head edema and peripancreatic inflammatory changes suggestive of acute interstitial pancreatitis. Correlate with pancreatic labs. Possible fecal impaction. Small volume ascites. Diffuse body wall edema. Labs Labs: Laboratory Results - last 24 hr 09/26/24 09/26/24 09/26/24 12:35 17:10 21:27 WBC RBC Hgb Hct MCV MCH MCHC RDW Plt Count MPV Immature Gran % (Auto) Neut % (Auto) Lymph % (Auto) Person % (Auto) Eos % (Auto) Baso % (Auto) Lymph # (Auto) Person # (Auto) Eos # (Auto) Baso # (Auto) Abs Immat Gran (auto) Absolute Neuts (auto) Absolute Nucleated RBC Nucleated RBC % Sodium Potassium Chloride Carbon Dioxide Anion Gap BUN Creatinine Estim Creat Clear Calc Estimated GFR Glucose POC Capillary Glucose 244 H 266 H 263 H Calcium Phosphorus Magnesium Total Bilirubin AST ALT Alkaline Phosphatase Total Protein Albumin Lipase 09/27/24 09/27/24 06:58 07:54 WBC 10.6 H RBC 3.25 L Hgb 9.5 L Hct 29.5 L MCV 90.8 MCH 29.2 MCHC 32.2 RDW 15.7 H Plt Count 120 L MPV 12.2 H Immature Gran % (Auto) 1.0 H Neut % (Auto) 94.0 H Lymph % (Auto) 1.5 L Person % (Auto) 3.4 Eos % (Auto) 0.0 Baso % (Auto) 0.1 L Lymph # (Auto) 0.16 L Person # (Auto) 0.4 Eos # (Auto) 0.0 Baso # (Auto) 0.0 Abs Immat Gran (auto) 0.11 H Absolute Neuts (auto) 10.0 H Absolute Nucleated RBC 0.000 Nucleated RBC % 0.0 Sodium 132 L Potassium 4.3 Chloride 105 Carbon Dioxide 22 Anion Gap 5 BUN 93 H D Creatinine 2.63 H Estim Creat Clear Calc 26 Estimated GFR 18 L Glucose 264 H POC Capillary Glucose 248 H Calcium 7.1 L Phosphorus 4.9 H Magnesium 2.2 Total Bilirubin 1.1 AST 66 H ALT 45 H Alkaline Phosphatase 104 Total Protein 4.0 L Albumin 1.9 L Lipase 427 H
[2024-09-27] MEDS: VANCOMYCIN 1,500 MG/NS 500 ML 1,500 MG/500 ML BAG 250 MG IVPB (10:54)
--- NOTE | 2024-09-27 11:55 | P.PNNP_ITS ---
Progress Note: A&P Assessment and Plan (1) BUTCH (acute kidney injury): Code(s): N17.9 - Acute kidney failure, unspecified Status: Acute Assessment and Plan: * continues to fluctuate * as noted by creatinine of 4.21mg/dl on admission. 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 * nephrotic range proteinuria * s/p pulse dose steroids * Eliquis on hold * I discussed with the patient's and he is agreeable to kidney biopsy * follow trend of repeat labs and UOP (2) Chronic kidney disease, stage IV (severe): Code(s): N18.4 - Chronic kidney disease, stage 4 (severe) Status: Chronic Assessment and Plan: * baseline creatinine runs ~ 2.5 - 3.2mg/dl per review of outpatient labs done by her primary sterile process tech * secondary to hypertension, diabetes, vascular disease, and age-related change * noted on last appointment (April 2024) discussions regarding [employer]/dialysis * follows with Dr. Shook & Rosa Delgado, AMA (3) Hypertension: Code(s): I10 - Essential (primary) hypertension Status: Chronic Assessment and Plan: * BP fluctuating * follow trend of hemodynamics (4) Anemia: Code(s): D64.9 - Anemia, unspecified Status: Acute Assessment and Plan: * chronic element related to CKD * however, dropped to 3.8 - 3.9 on 09/21 * no evidence of acute blood loss anemia * no schistocytes seen * bilirubin normal * s/p 4U PRBCs transfusion * H/H relatively stable at this time * recent CT C/A/P with no evidence of acute blood loss but shows anasarca, possible pancreatitis and fecal impaction * occult blood of stool negative * anemia studies noted: * B12/folate normal in July 2024 * adequate iron stores (by 09/12 testing) * hemoglobin relatively stable at this time (5) Fracture of left proximal fibula: Code(s): S82.832A - Other fracture of upper and lower end of left fibula, initial encounter for closed fracture Status: Acute Assessment and Plan: * imaging with minimally displaced extra-articular fracture of the proximal left fibular diaphysis, distal fibular fx and comminuted fracture of the distal tibia * Ortho recommendations noted * fracture boot in place * PT/OT with precautions (6) Closed left ankle fracture: Qualifiers: Encounter type: initial encounter Qualified Code(s): S82.892A - Other fracture of left lower leg, initial encounter for closed fracture Code(s): S82.892A - Other fracture of left lower leg, initial encounter for closed fracture Status: Acute Assessment and Plan: * Left ankle xray noted: * comminuted fracture of the anterior distal tibia that extends into the tibiotalar joint space, additional fracture deformity within the medial and lateral malleolus. The fracture within the medial malleolus extends into the joint space and articular surface of the tibiotalar joint * fracture boot in place * Orthopedic recommendations noted * PT/OT with precautions (7) Atrial fibrillation: Code(s): I48.91 - Unspecified atrial fibrillation Status: Acute Assessment and Plan: * rate controlled * on Eliquis and metoprolol * holding Eliquis for renal biopsy (8) Pericarditis: Code(s): I31.9 - Disease of pericardium, unspecified Status: Acute Assessment and Plan: * as noted on previous hospitalization * was on ibuprofen and colcicine * discontinued due to BUTCH + CKD * on prednisone taper * repeat echocardiogram with no pericardial effusion. * related to #1 (?) (9) Urinary tract infection: Code(s): N39.0 - Urinary tract infection, site not specified Status: Inactive Assessment and Plan: * recent UA suggestive * urine culture with E. Coli + Enterococcus * on antibiotic therapy (10) Diabetes mellitus: Qualifiers: Diabetes mellitus complication detail: with diabetic retinopathy D iabetes mellitus complication status: with ophthalmic complications Diabetes mellitus half-way insulin use: without half-way use Diabetes mellitus macular edema: without macular edema Diabetes mellitus type: type 2 Diabetic retinopathy severity: with unspecified retinopathy severity Laterality: right Qualified Code(s): E11.319 - Type 2 diabetes mellitus with unspecified diabetic retinopathy without macular edema Code(s): E11.9 - Type 2 diabetes mellitus without complications Status: Chronic Assessment and Plan: * follow accu-cheks * glycemic control per hospitalist Will continue to follow. L Subjective Date/time seen: 09/27/24 11:55 Interval history: Follow-up for acute kidney injury on top of chronic kidney disease. Chart reviewed since last seen -- no decision regarding renal biopsy as of yet per patient; started on pulse dose steroids (last dose today); antibiotics initiated based on recent urine culture as well; eating and drinking okay; renal function continues to fluctuate as well; no apparent distress noted. Exam 2 Narrative: General: WD/WN female in NAD Heart: normal S1 and S2; no rub Lungs: clear bilaterally Abdomen: soft, nontender, nondistended, positive bowel sounds Extremities: diffuse edema (1 - 2+); left leg boot in place Skin: warm and dry Objective Data Vital Signs Vital Signs: Vital Signs Temp Pulse Resp BP Pulse Ox O2 Del Method FiO2 09/27/24 08:47 99 09/27/24 08:00 98.5 F 101 H 18 161/83 H 98 09/27/24 04:00 98.4 F 95 17 146/78 H 98 09/26/24 23:52 98.1 F 96 17 148/75 H 100 09/26/24 23:00 97 Room Air 09/26/24 20:00 95 17 99 Room Air 21 09/26/24 20:00 98.4 F 95 17 160/82 H 99 Intake/Output Intake/Output: Intake & Output 09/24/24 09/25/24 09/26/24 09/27/24 23:59 23:59 23:59 23:59 Intake Total 720 4783 084 6624 Output Total 750 450 800 Balance 720 266 426 230 Meds/Results Medications: Active Medications Generic Name Dose Route Start Last Admin Trade Name Dionyq PRN Reason Stop Dose Admin Acetaminophen 650 mg 09/26/24 07:08 Acetaminophen 325 Mg Tablet PO Q6H PRN Mild Pain (1-3) or Fever Hydrocodone Bitart/Acetaminophen 1 tab 09/23/24 11:21 09/26/24 09:08 Hydrocodone/Acetaminophen (*Crx) 5-325 Mg Tablet PO 1 tab Q6H PRN Administration Pain Rated 4-6 Albuterol/Ipratropium 3 ml 09/24/24 07:54 Ipratropium 0.5 Mg/Albuterol Sulfate 2.5 Mg Ampul.Neb 3 Ml INHALATION Q6HRT PRN Shortness Of Breath Apixaban 2.5 mg 09/07/24 09:30 09/26/24 09:30 Apixaban 2.5 Mg Tablet PO 2.5 mg Q12HR NAHOMI Administration Artificial Tears 1 drop 09/07/24 09:35 09/27/24 08:47 Artificial Tears Ophth Soln 15 Ml Bottle RIGHT EYE 1 drop Q12HR NAHOMI Administration Bisacodyl 10 mg 09/25/24 09:00 09/27/24 10:54 Bisacodyl 10 Mg Suppository RECTAL 09/28/24 08:59 Not Given QAM NAHOMI Brimonidine Tartrate 1 drop 09/07/24 09:30 09/27/24 08:46 Brimonidine Tartrate 0.2% Op Soln 5 Ml Btl EACH EYE 1 drop Q12HR NAHOMI Administration Bumetanide 1 mg 09/26/24 17:00 09/27/24 08:47 Bumetanide Inj 1 Mg/4 Ml Vial IV PUSH 1 mg BID NAHOMI Administration Dextrose 12.5 gm 09/07/24 09:15 Dextrose 50% 25 Gm/50 Ml Syringe IV PUSH PRN PRN Hypoglycemia Protocol Dorzolamide HCl 1 drop 09/07/24 09:30 09/27/24 08:47 Dorzolamide Hcl 2% Ophth Drops RIGHT EYE 1 drop Q12HR NAHOMI Administration Glucagon 1 mg 09/07/24 09:15 Glucagon For Inj 1 Mg Vial IM PRN PRN Hypoglycemia Protocol Glucose 15 gm 09/07/24 09:15 Glucose Oral Gel 15 Gm Of Glucse In 37.5 Gm Tube PO PRN PRN Hypoglycemia Protocol Guaifenesin 600 mg 09/24/24 09:00 09/27/24 08:47 Guaifenesin 12 Hr 600 Mg Tabcr PO 600 mg Q12HR NAHOMI Administration Guaifenesin/Dextromethorphan 5 ml 09/18/24 15:30 09/25/24 09:18 Guaifenesin/Dextromethorphan 10 Ml Udc PO 5 ml Q4H PRN Administration Cough Dextrose 1,000 mls @ 100 mls/hr 09/07/24 09:15 Dextrose 5% 1,000 Ml IVPB PRN PRN Hypoglycemia Protocol Ceftriaxone Sodium 1 gm in 50 mls @ 100 mls/hr 09/27/24 08:00 09/27/24 08:43 Rocephin 1 Gm/Ns 50 Ml IVPB 100 mls/hr Q24H NAHOMI Administration Vancomycin HCl 1,500 mg in 500 mls @ 250 mls/hr 09/27/24 09:00 09/27/24 10:54 Vancomycin 1,500 Mg/Ns 500 Ml IVPB 250 mls/hr Q36H NAHOMI Administration Albumin Human 100 mls @ 60 mls/hr 09/27/24 18:00 Albutein IVPB Q6HR ANHOMI Insulin Aspart 2 - 5 units 09/17/24 08:00 09/27/24 13:03 Insulin Aspart (*Bkc) 100 Units/Ml SUB-Q 3 units TIDWM NAHOMI Administration Protocol Insulin Glargine 25 units 09/24/24 21:00 09/26/24 22:19 Insulin Glargine (*Bkc) 100 Units/Ml SUB-Q 25 units HS NAHOMI Administration Loratadine 5 mg 09/18/24 15:35 09/27/24 08:47 Loratadine 5 Mg Tablet PO 5 mg QAM NAHOMI Administration Metoprolol Succinate 100 mg 09/07/24 09:00 09/27/24 08:47 Metoprolol Succinate Ext Rel 100 Mg Tabcr PO 100 mg QAM [facility] Administration Morphine Sulfate 1 mg 09/26/24 07:10 Morphine Sulfate (*Crx) 2 Mg/Ml Inj IV PUSH Q4H PRN Pain Rated 7-10 Naloxone HCl 0.1 mg 09/07/24 08:19 Naloxone Hcl 0.4 Mg/Ml Vial IV PUSH Q2M PRN Opiate Reversal Nifedipine 30 mg 09/25/24 09:00 Nifedipine 30 Mg Tab.Er.24 PO QAM NAHOMI Ondansetron HCl 4 mg 09/07/24 09:15 09/13/24 14:52 Ondansetron Inj 4 Mg/2 Ml Vial IV PUSH 4 mg Q6H PRN Administration Nausea And Vomiting Oxycodone HCl 5 mg 09/17/24 19:48 09/20/24 12:47 Oxycodone Hcl (*Crx) 5 Mg Tab Ir PO 5 mg Q4H PRN Administration Pain Rated 7-10 Pantoprazole Sodium 40 mg 09/27/24 09:00 09/27/24 08:48 Pantoprazole 40 Mg Tablet PO 40 mg Q12HR NAHOMI Administration Polyethylene Glycol 17 gm 09/24/24 19:35 09/27/24 08:47 Polyethylene Glycol 3350 17 Gm Powd.Pack PO 17 gm BID NAHOMI Administration Polysaccharide Iron Complex 150 mg 09/07/24 17:00 09/27/24 08:48 Polysaccharide Iron Complex 150 Mg Capsule PO 150 mg BIDWM NAHOMI Administration Rosuvastatin Calcium 5 mg 09/07/24 09:00 09/27/24 08:48 Rosuvastatin 5 Mg Tablet PO 5 mg QAM NAHOMI Administration Sodium Bicarbonate 1,300 mg 09/10/24 09:00 09/27/24 13:03 Sodium Bicarbonate Tab 650 Mg Tablet PO 1,300 mg TID NAHOMI Administration Timolol Maleate 1 drop 09/07/24 09:35 09/27/24 08:47 Timolol Maleate 0.5% Op Soln 5 Ml Bottle EACH EYE 1 drop Q12HR NAHOMI Administration Radiology Results: ITS Impressions Abdomen/Pelvis CT 09/07/24 05:37 Impression: Minimal bilateral pleural effusions. Horseshoe kidney. Elbow X-Ray 09/17/24 12:16 IMPRESSION: 1. No fracture. Knee X-Ray 09/17/24 12:17 IMPRESSION: 1. Minimally displaced extra articular fracture of the proximal left fibular diaphysis. Correlate for any associated ankle pain and consider additional radiographs of the more distal tibia and fibula as clinically indicated. Tibia/Fibula X-Ray 09/17/24 15:54 IMPRESSION: 1. Fractures of proximal and distal fibula. 2. Comminuted fracture of distal tibia. Foot X-Ray 09/21/24 17:53 IMPRESSION: 1. No fracture. Chest X-Ray 09/22/24 17:31 IMPRESSION: No acute cardiopulmonary process. Chest/Abdomen/Pelvis CT 09/23/24 22:42 IMPRESSION: Small left and trace right pleural effusions. Pancreatic head edema and peripancreatic inflammatory changes suggestive of acute interstitial pancreatitis. Correlate with pancreatic labs. Possible fecal impaction. Small volume ascites. Diffuse body wall edema. Ankle X-Ray 09/27/24 14:14 IMPRESSION: 1. Trimalleolar ankle fracture without change in alignment. Labs Labs: Laboratory Tests 09/27/24 06:58 09/27/24 06:58 Calcium 7.1 L Phosphorus 4.9 H Magnesium 2.2 Total Bilirubin 1.1 AST 66 H ALT 45 H Alkaline Phosphatase 104 Total Protein 4.0 L Albumin 1.9 L Lipase 427 H Microbiology 09/25/24 10:53 Clean Catch Midstream Urine Culture - Preliminary Escherichia Coli Enterococcus species
[2024-09-27 12:02] LABS: Glucose Point of Care 273 mg/dl (65-105)
--- NOTE | 2024-09-27 12:04 | PCOTNOTE ---
Attempted to see Patient at this time. Patient declined having very frequent uncontrolled bowel movements and stomach cramping. Patient declined to move while in her bed.
[2024-09-27 12:08] LABS: PS/PT AB IgG <9 U (< OR = 30); PS/PT AB IgM 110 U (< OR = 30)
--- NOTE | 2024-09-27 12:29 | PCPTNOTE ---
On 09/27/24, the student, HARRY Clark, provided care and completed [facility] documentation on this patient. I have reviewed the student's documentation and agree with the findings.
[2024-09-27 14:54] LABS: Complement Total CH50 48 U/mL (31-60)
[2024-09-27 16:45] LABS: Glucose Point of Care 229 mg/dl (65-105)
[2024-09-27] MEDS: ALBUMIN HUMAN 25% 25 GM/100 ML 100 ML IVPB ×2 (18:00→23:47)
[2024-09-27 19:59] LABS: Immunofixation, Serum Normal pattern.
[2024-09-27 20:00] VITALS: PULSE 99; RESP 18; O2SAT 98
[2024-09-27] MEDS: INSULIN GLARGINE (*BKC) 100 UNITS/ML 25 UNITS SUB-Q (21:39)
[2024-09-27 21:50] VITALS: BP 174/110; PULSE 87; RESP 18; TEMP 37; O2SAT 99
[2024-09-27 22:14] LABS: Glucose Point of Care 228 mg/dl (65-105)
[2024-09-27] MEDS: HYDROcodone/acetaminophen (*CRX) 5-325 MG TABLET 1 TAB PO (23:46)
[2024-09-28] VITALS (9 sets, daily range): BP systolic 127–185; BP diastolic 70–99; PULSE 82–89; RESP 12–20; TEMP 36.3–37.1; O2SAT 98–100
[2024-09-28] MEDS: ALBUMIN HUMAN 25% 25 GM/100 ML 100 ML IVPB ×4 (05:17→23:28)
[2024-09-28 06:36] LABS: Basophils Percent Auto 0.2 % (0.2-1.2); Hematocrit 26.4 % (37.0-47.0); Hemoglobin 8.4 g/dL (12.0-15.0); Immature Granulocyte Percent A 0.9 % (0-0.5); Lymphocytes Absolute Auto 0.37 K/mm3 (0.9-3.2); Lymphocytes Percent Auto 3.3 % (18.3-44.2); Mean Corpuscular HGB Conc 31.8 g/dl (32-36); Mean Corpuscular Hemoglobin 28.8 pg (26-34); Mean Corpuscular Volume 90.4 fl (80-100); Mean Platelet Volume 12.2 fl (7.4-10.4); Monocytes Absolute Auto 0.4 K/mm3 (0.1-0.6); Monocytes Percent Auto 3.5 % (2.6-8.5); Neutrophils Absolute Auto 10.4 K/mm3 (1.3-6.7); Neutrophils Percent Auto 92.1 % (45.5-73.1); Platelet Count Result 117 k/mm3 (150-375); Red Blood Count 2.92 M/mm3 (4.2-5.4); Red Cell Distribution Width 15.4 % (11.5-14.5); White Blood Count 11.3 K/mm3 (4.5-10.0)
[2024-09-28 06:47] LABS: Alanine Aminotransferase 26 U/L (6-35); Albumin Level 2.4 g/dL (3.5-5.1); Alkaline Phosphatase 86 U/L (38-126); Anion Gap 10 mmol/L (4-12); Aspartate Amino Transferase 32 U/L (14-36); Bilirubin,Total 1.2 mg/dL (0.2-1.3); Blood Urea Nitrogen 94 mg/dL (7-17); Calcium 6.6 mg/dL (8.4-10.2); Carbon Dioxide 22 mmol/L (22-30); Chloride 104 mmol/L (98-107); Estimated CRCL calculation 28 ml/min; Estimated Glomerular Filt Rate 21; Glucose 239 mg/dL (65-110); Magnesium 2.1 mg/dL (1.6-2.3); Phosphorus 4.7 mg/dL (2.5-4.5); Potassium 3.5 mmol/L (3.4-5.0); Sodium 136 mmol/L (137-145)
[2024-09-28 06:50] LABS: INR 1.4; Partial Thromboplastin Time 38.2 Seconds (22.3-36.8); Prothrombin Time 17.3 Seconds (11.1-14.7)
[2024-09-28 07:33] LABS: Glucose Point of Care 255 mg/dl (65-105)
[2024-09-28] MEDS: METOPROLOL SUCCINATE EXT REL 100 MG TABCR PO (08:16)
[2024-09-28] MEDS: POLYSACCHARIDE IRON COMPLEX 150 MG CAPSULE PO ×2 (08:16→17:15)
[2024-09-28] MEDS: BUMETANIDE INJ 1 MG/4 ML VIAL IV PUSH ×2 (08:16→18:22)
[2024-09-28] MEDS: ROSUVASTATIN 5 MG TABLET PO (08:16)
[2024-09-28] MEDS: guaiFENesin 12 HR 600 MG TABCR PO ×2 (08:16→21:03)
[2024-09-28] MEDS: SODIUM BICARBONATE TAB 650 MG TABLET 1300 MG PO ×3 (08:17→17:15)
[2024-09-28] MEDS: PANTOPRAZOLE 40 MG TABLET PO ×2 (08:17→21:04)
[2024-09-28] MEDS: LORATADINE 5 MG TABLET PO (08:17)
[2024-09-28] MEDS: BRIMONIDINE TARTRATE 0.2% OP SOLN 5 ML BTL 1 DROP EACH EYE ×2 (08:17→21:03)
[2024-09-28] MEDS: TIMOLOL MALEATE 0.5% OP SOLN 5 ML BOTTLE 1 DROP EACH EYE ×2 (08:18→21:03)
[2024-09-28] MEDS: ARTIFICIAL TEARS OPHTH SOLN 15 ML BOTTLE 1 DROP RIGHT EYE ×2 (08:18→21:03)
[2024-09-28] MEDS: DORZOLAMIDE HCL 2% OPHTH DROPS 1 DROP RIGHT EYE ×2 (08:19→21:03)
[2024-09-28] MEDS: INSULIN ASPART (*BKC) 100 UNITS/ML SUB-Q (08:54)
[2024-09-28] MEDS: NIFEdipine 30 MG TAB.ER.24 PO (08:55)
--- NOTE | 2024-09-28 09:02 | PCOTNOTE ---
The patient treatment was not able to be completed Patient is to get a renal biopsy. Will plan to continue treatment per plan of care.
--- NOTE | 2024-09-28 10:29 | PCNFU ---
Nutrition Follow-Up Complete: suboptimal po intake related to reduced appetite as evidenced by pt report and charted intake -New: Increased protein energy needs related to wound healing as evidenced by deep tissue injury PO intake 50% or greater - Progressing. Pt NPO today Goal: Pt current nutrition is NPO for kidney biopsy. Nutrition recommendation: Advance diet to Diabetic consistent carbs after procedure. Will add José BID when diet advanced for new wound Last recorded weight is 106.4 kg. Bowel Motility: +6 BMs today 09/28/24 Labs Reviewed: Hgb 8.4, Hct 26.4, Alb 2.4, Na 136, GFR 21, BUN 94, Cre 2.35, Glu 239 Meds Noted: Novolog, Zofran Skin: New Deep tissue pressure injury to L buttock Additional Notes: NPO today, will add supplement when diet advanced. Eating 50-75% on previous diabetic diet. Monitor intake, wt, labs. Follow up in 5 days.
[2024-09-28] MEDS: hydrALAZINE HCL 20 MG/ML VIAL 10 MG IV PUSH (11:32)
[2024-09-28 11:33] LABS: Glucose Point of Care 196 mg/dl (65-105)
--- NOTE | 2024-09-28 12:04 | P.PNNP_ITS ---
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 * follow trend of repeat labs and UOP (2) Chronic kidney disease, stage IV (severe): Code(s): N18.4 - Chronic kidney disease, stage 4 (severe) Status: Chronic Assessment and Plan: * baseline creatinine runs ~ 2.5 - 3.2mg/dl per review of outpatient labs done by her primary steam room attendant * secondary to hypertension, diabetes, vascular disease, and age-related change * noted on last appointment (April 2024) discussions regarding [facility]/dialysis * follows with Dr. Shook & Rosa Delgado NP (3) Hypertension: Code(s): I10 - Essential (primary) hypertension Status: Chronic Assessment and Plan: * BP fluctuating * restart nifedipine * follow trend of hemodynamics (4) Anemia: Code(s): D64.9 - Anemia, unspecified Status: Acute Assessment and Plan: * chronic element related to CKD * however, dropped to 3.8 - 3.9 on 09/21 * no evidence of acute blood loss anemia * no schistocytes seen * bilirubin normal * s/p 4U PRBCs transfusion * H/H relatively stable at this time * recent CT C/A/P with no evidence of acute blood loss but shows anasarca, possible pancreatitis and fecal impaction * occult blood of stool negative * anemia studies noted: * B12/folate normal in July 2024 * adequate iron stores (by 09/12 testing) * hemoglobin relatively stable at this time (5) Fracture of left proximal fibula: Code(s): S82.832A - Other fracture of upper and lower end of left fibula, initial encounter for closed fracture Status: Acute Assessment and Plan: * imaging with minimally displaced extra-articular fracture of the proximal left fibular diaphysis, distal fibular fx and comminuted fracture of the distal tibia * Ortho recommendations noted * fracture boot in place * PT/OT with precautions (6) Closed left ankle fracture: Qualifiers: Encounter type: initial encounter Qualified Code(s): S82.892A - Other fracture of left lower leg, initial encounter for closed fracture Code(s): S82.892A - Other fracture of left lower leg, initial encounter for closed fracture Status: Acute Assessment and Plan: * Left ankle xray noted: * comminuted fracture of the anterior distal tibia that extends into the tibiotalar joint space, additional fracture deformity within the medial and lateral malleolus. The fracture within the medial malleolus extends into the joint space and articular surface of the tibiotalar joint * fracture boot in place * Orthopedic recommendations noted * PT/OT with precautions (7) Atrial fibrillation: Code(s): I48.91 - Unspecified atrial fibrillation Status: Acute Assessment and Plan: * rate controlled * on Eliquis and metoprolol * holding Eliquis for renal biopsy (8) Pericarditis: Code(s): I31.9 - Disease of pericardium, unspecified Status: Acute Assessment and Plan: * as noted on previous hospitalization * was on ibuprofen and colcicine * discontinued due to BUTCH + CKD * on prednisone taper * repeat echocardiogram with no pericardial effusion. * related to #1 (?) (9) Urinary tract infection: Code(s): N39.0 - Urinary tract infection, site not specified Status: Inactive Assessment and Plan: * recent UA suggestive * urine culture with E. Coli + Enterococcus * on antibiotic therapy (10) Diabetes mellitus: Qualifiers: Diabetes mellitus complication detail: with diabetic retinopathy Diabetes mellitus complication status: with ophthalmic complications Diabetes mellitus regional intermodal truck driver insulin use: without regional intermodal truck driver use Diabetes mellitus macular edema: without macular edema Diabetes mellitus type: type 2 Diabetic retinopathy severity: with unspecified retinopathy severity Laterality: right Qualified Code(s): E11.319 - Type 2 diabetes mellitus with unspecified diabetic retinopathy without macular edema Code(s): E11.9 - Type 2 diabetes mellitus without complications Status: Chronic Assessment and Plan: * follow accu-cheks * glycemic control per hospitalist Will continue to follow. Subjective Date/time seen: 09/28/24 12:04 Interval history: Follow-up for acute kidney injury on top of chronic kidney disease. Renal biopsy rescheduled for tomorrow due to elevated BP today so BP medications adjusted to compensate; no other acute complaints voiced other than difficulty sleeping last night; swelling/edema present but improved with diuretic therapy; no other issues/events noted overnight or earlier this morning. Exam Narrative: General: WD/WN female in NAD Heart: normal S1 and S2; no rub Lungs: clear bilaterally Abdomen: soft, nontender, nondistended, positive bowel sounds Extremities: diffuse edema (1 - 2+); left leg boot in place Skin: warm and dry Objective Data Vital Signs Vital Signs: Vital Signs - 24 hr 09/27/24 20:00 09/27/24 21:50 09/28/24 02:00 Temperature 98.6 F 98.8 F Pulse Rate 99 87 89 Respiratory Rate 18 18 18 Blood Pressure 174/110 H 185/96 H Pulse Oximetry 98 99 100 Oxygen Delivery Room Air Fraction of Inspired Oxygen 21 09/28/24 04:40 09/28/24 09:45 09/28/24 10:49 Temperature 98.2 F Pulse Rate 85 85 Respiratory Rate 20 Blood Pressure 170/99 H 172/87 H 171/87 H Pulse Oximetry 100 100 Oxygen Delivery Fraction of Inspired Oxygen 09/28/24 11:45 09/28/24 12:00 Temperature 98.0 F Pulse Rate 82 Respiratory Rate 18 Blood Pressure 174/81 H 174/81 H Pulse Oximetry 99 Oxygen Delivery Fraction of Inspired Oxygen Intake/Output Intake/Output: Intake & Output 09/25/24 09/26/24 09/27/24 09/28/24 23:59 23:59 23:59 23:59 Intake Total 3336 031 6419 700 Output Total 939 450 800 Balance 266 426 380 700 Meds/Results Medications: Active Medications Generic Name Dose Route Start Last Admin Trade Name Dionyq PRN Reason Stop Dose Admin Acetaminophen 650 mg 09/26/24 07:08 Acetaminophen 325 Mg Tablet PO Q6H PRN Mild Pain (1-3) or Fever Hydrocodone Bitart/Acetaminophen 1 tab 09/23/24 11:21 09/27/24 23:46 Hydrocodone/Acetaminophen (*Crx) 5-325 Mg Tablet PO 1 tab Q6H PRN Administration Pain Rated 4-6 Albuterol/Ipratropium 3 ml 09/24/24 07:54 Ipratropium 0.5 Mg/Albuterol Sulfate 2.5 Mg Ampul.Neb 3 Ml INHALATION Q6HRT PRN Shortness Of Breath Apixaban 2.5 mg 09/07/24 09:30 09/26/24 09:30 Apixaban 2.5 Mg Tablet PO 2.5 mg Q12HR NAHOMI Administration Artificial Tears 1 drop 09/07/24 09:35 09/28/24 08:18 Artificial Tears Ophth Soln 15 Ml Bottle RIGHT EYE 1 drop Q12HR NAHOMI Administration Brimonidine Tartrate 1 drop 09/07/24 09:30 09/28/24 08:17 Brimonidine Tartrate 0.2% Op Soln 5 Ml Btl EACH EYE 1 drop Q12HR NAHOMI Administration Bumetanide 1 mg 09/26/24 17:00 09/28/24 18:22 Bumetanide Inj 1 Mg/4 Ml Vial IV PUSH 1 mg BID NAHOMI Administration Dextrose 12.5 gm 09/07/24 09:15 Dextrose 50% 25 Gm/50 Ml Syringe IV PUSH PRN PRN Hypoglycemia Protocol Dorzolamide HCl 1 drop 09/07/24 09:30 09/28/24 08:19 Dorzolamide Hcl 2% Ophth Drops RIGHT EYE 1 drop Q12HR NAHOMI Administration Glucagon 1 mg 09/07/24 09:15 Glucagon For Inj 1 Mg Vial IM PRN PRN Hypoglycemia Protocol Glucose 15 gm 09/07/24 09:15 Glucose Oral Gel 15 Gm Of Glucse In 37.5 Gm Tube PO PRN PRN Hypoglycemia Protocol Guaifenesin 600 mg 09/24/24 09:00 09/28/24 08:16 Guaifenesin 12 Hr 600 Mg Tabcr PO 600 mg Q12HR NAHOMI Administration Guaifenesin/Dextromethorphan 5 ml 09/18/24 15:30 09/25/24 09:18 Guaifenesin/Dextromethorphan 10 Ml Udc PO 5 ml Q4H PRN Administration Cough Dextrose 1,000 mls @ 100 mls/hr 09/07/24 09:15 Dextrose 5% 1,000 Ml IVPB PRN PRN Hypoglycemia Protocol Ceftriaxone Sodium 1 gm in 50 mls @ 100 mls/hr 09/27/24 08:00 09/28/24 08:12 Rocephin 1 Gm/Ns 50 Ml IVPB 100 mls/hr Q24H NAHOMI Administration Albumin Human 100 mls @ 60 mls/hr 09/27/24 18:00 09/28/24 18:22 Albutein IVPB 60 mls/hr Q6HR NAHOMI Administration Insulin Aspart 3 - 6 units 09/28/24 17:00 09/28/24 18:21 Insulin Aspart (*Bkc) 100 Units/Ml SUB-Q Not Given TIDWM [facility] Protocol Insulin Glargine 25 units 09/24/24 21:00 09/27/24 21:39 Insulin Glargine (*Bkc) 100 Units/Ml SUB-Q 25 units HS NAHOMI Administration Linezolid 600 mg 09/28/24 14:05 09/28/24 17:15 Linezolid 600 Mg Tablet PO 600 mg Q12HR NAHOMI Administration Loratadine 5 mg 09/18/24 15:35 09/28/24 08:17 Loratadine 5 Mg Tablet PO 5 mg QAM NAHOMI Administration Metoprolol Succinate 100 mg 09/07/24 09:00 09/28/24 08:16 Metoprolol Succinate Ext Rel 100 Mg Tabcr PO 100 mg QAM [facility] Administration Morphine Sulfate 1 mg 09/26/24 07:10 Morphine Sulfate (*Crx) 2 Mg/Ml Inj IV PUSH Q4H PRN Pain Rated 7-10 Naloxone HCl 0.1 mg 09/07/24 08:19 Naloxone Hcl 0.4 Mg/Ml Vial IV PUSH Q2M PRN Opiate Reversal Nifedipine 30 mg 09/25/24 09:00 09/28/24 08:55 Nifedipine 30 Mg Tab.Er.24 PO 30 mg QAM NAHOMI Administration Ondansetron HCl 4 mg 09/07/24 09:15 09/13/24 14:52 Ondansetron Inj 4 Mg/2 Ml Vial IV PUSH 4 mg Q6H PRN Administration Nausea And Vomiting Pantoprazole Sodium 40 mg 02/03/25 09:00 09/28/24 08:17 Pantoprazole 40 Mg Tablet PO 40 mg Q12HR NAHOMI Administration Polysaccharide Iron Complex 150 mg 09/07/24 17:00 09/28/24 17:15 Polysaccharide Iron Complex 150 Mg Capsule PO 150 mg BIDWM NAHOMI Administration Rosuvastatin Calcium 5 mg 09/07/24 09:00 09/28/24 08:16 Rosuvastatin 5 Mg Tablet PO 5 mg QAM NAHOMI Administration Sodium Bicarbonate 1,300 mg 09/10/24 09:00 09/28/24 17:15 Sodium Bicarbonate Tab 650 Mg Tablet PO 1,300 mg TID NAHOMI Administration Timolol Maleate 1 drop 09/07/24 09:35 09/28/24 08:18 Timolol Maleate 0.5% Op Soln 5 Ml Bottle EACH EYE 1 drop Q12HR NAHOMI Administration Radiology Results: ITS Impressions Abdomen/Pelvis CT 09/07/24 05:37 Impression: Minimal bilateral pleural effusions. Horseshoe kidney. Elbow X-Ray 09/17/24 12:16 IMPRESSION: 1. No fracture. Knee X-Ray 09/17/24 12:17 IMPRESSION: 1. Minimally displaced extra articular fracture of the proximal left fibular diaphysis. Correlate for any associated ankle pain and consider additional radiographs of the more distal tibia and fibula as clinically indicated. Tibia/Fibula X-Ray 09/17/24 15:54 IMPRESSION: 1. Fractures of proximal and distal fibula. 2. Comminuted fracture of distal tibia. Foot X-Ray 09/21/24 17:53 IMPRESSION: 1. No fracture. Chest X-Ray 09/22/24 17:31 IMPRESSION: No acute cardiopulmonary process. Chest/Abdomen/Pelvis CT 09/23/24 22:42 IMPRESSION: Small left and trace right pleural effusions. Pancreatic head edema and peripancreatic inflammatory changes suggestive of acute interstitial pancreatitis. Correlate with pancreatic labs. Possible fecal impaction. Small volume ascites. Diffuse body wall edema. Ankle X-Ray 09/27/24 14:14 IMPRESSION: 1. Trimalleolar ankle fracture without change in alignment. Labs Labs: Laboratory Results - last 24 hr 09/28/24 06:15 WBC 11.3 H Hgb 8.4 L Hct 26.4 L Plt Count 117 L Sodium 136 L Potassium 3.5 Chloride 104 Carbon Dioxide 22 Anion Gap 10 BUN 94 H Creatinine 2.35 H Estim Creat Clear Calc 28 Estimated GFR 21 L Glucose 239 H Calcium 6.6 L Phosphorus 4.7 H Magnesium 2.1 Total Bilirubin 1.2 AST 32 ALT 26 Alkaline Phosphatase 86 Total Protein 4.0 L Albumin 2.4 L
--- NOTE | 2024-09-28 13:56 | P.PNIM_ITS ---
Progress Note: A&P Assessment and Plan (1) Fall from ground level: Code(s): W18.30XA - Fall on same level, unspecified, initial encounter Status: Acute Assessment and Plan: Patient was admitted on 09/07 and had a fall while hospitalized on 09/17. Likely mechanical due to generalized muscle weakness. She slid down to the floor with PT in room. Rt elbow xray showing no fracture. Rt knee xray showing mild OA. She later had a right foot xray showing no fx She was found to have minimally displaced extra-articular fracture of the proximal left fibular diaphysis, distal fibular fx and comminuted fracture of the distal tibia. Left ankle xray again showing comminuted fracture of the anterior distal tibia that extends into the tibiotalar joint space, additional fracture deformity within the medial and lateral malleolus. The fracture within the medial malleolus extends into the joint space and articular surface of the tibiotalar joint. Ortho consulted and appreciate their input. Patient initially felt not a surgical candidate. She was placed in fracture boot. PT/OT treatment with Ortho precautions. Repeat xray showing no change in the fracture. Spoke with ortho who felt patient could undergo surgical repair which is planned on 09/30/24 Will likely need SNF/rehab placement. Continue supportive care with analgesics. (2) Fracture of left proximal fibula: Code(s): S82.832A - Other fracture of upper and lower end of left fibula, initial encounter for closed fracture Status: Acute Assessment and Plan: As above. (3) Closed left ankle fracture: Qualifiers: Encounter type: initial encounter Qualified Code(s): S82.892A - Other fracture of left lower leg, initial encounter for closed fracture Code(s): S82.892A - Other fracture of left lower leg, initial encounter for closed fracture Status: Acute Assessment and Plan: As above. (4) Anemia: Code(s): D64.9 - Anemia, unspecified Status: Acute Assessment and Plan: Baseline hgb unclear. Hgb around 10 when she is not hospitalized. Hgb 10 on admission but dropped to 7-8 range. Hgb was 7.2 on 09/17 but when rechecked on 09/21, Hgb critical at 3.9 (repeat was 3.8). Also with drop in plt count. No evidence of acute blood loss anemia. No schistocytes seen on CBC 09/22 or 09/23 and not mentioned prior. Bili normal She received 4U PRBCs. CT Ch/A/P showing no evidence of acute blood loss but shows anasarca, possible pancreatitis and fecal impaction. Occult blood of stool negative on 09/09/24. B12/folate normal in July. On 09/12/24, Iron 36, TIBC 161 and iron sat 22%. Patient on apixaban for AFib and remains on this medication. Hgb climbed to 10.7 but drifting down to 8.4 today. Etiology unclear but consider hemolysis. Acute GI bleed seems unlikely. No evidence of acute blood loss. Continue to follow H/H closely and transfuse to a stable hgb. Continue PPI (5) Acute on chronic renal failure: Code(s): N17.9 - Acute kidney failure, unspecified; N18.9 - Chronic kidney disease, unspecified Status: Acute Assessment and Plan: Patient with CKD stage 4. Baseline Cr 2.6-3.3 range. Patient with BUTCH with Cr 4. 21 on admission She was treated with IV fluids with improvement. Patient has some form of autoimmune disease that probably is affecting her kidneys. Hepatitis panel and HIV negative. Immunoglobulin levels normal (IgM elevated). RF negative. DULCE positive and 1:1280 and nuclear, homogeneous pattern. Has nephrotic range proteinuria. ESR 24. C3 and C4 low. Anti-myeloperoxidase positive. Antiprotienase and GBM negative. Nephrology consulted and appreciate their input. Consider SLE or microscopic polyangiitis. Consider also hydralazine induced SLE or hydralazine-induced ANCA associated vasculitis. SLE seems less likely. Good UOP with Bumex but Cr was up to 3.14. BP was too well controlled so Procardia held. Cr back down. Bumex able to be added back. Completed pulsed does steroids on 09/27. was agreeable for Albumin so this added. Leon held for possible renal biopsy. (6) Urinary tract infection: Code(s): N39.0 - Urinary tract infection, site not specified Status: Inactive Assessment and Plan: UCx on 09/07 was negative but repeat UCx grew pansensitive EColi on 09/13 treated with Rocephin and then Cefdinir She completed a course of abx. Repeat UA (09/25) showing 4+ protein, trace LE, 51-100 RBC and 0-5 WBC with 4+ bacteria. No squamous cells seen. UCx growing EColi 100K colonies and VRE 100K colonies. Unclear if this is a true infection with no WBC but with high colony counts and no squamous cells. Continue Rocephin; Change Vanco to Linezolid. Change to oral once renal biopsy complete. (7) Atrial fibrillation: Code(s): I48.91 - Unspecified atrial fibrillation Status: Acute Assessment and Plan: Rate controlled Continue Metoprolol; Eliquis on hold (8) Diabetes mellitus: Qualifiers: Diabetes mellitus complication detail: with diabetic retinopathy Diabetes mellitus complication status: with ophthalmic complications Diabetes mellitus prison insulin use: without long term acute care registered nurse use Diabetes mellitus macular edema: without macular edema Diabetes mellitus type: type 2 Diabetic retinopathy severity: with unspecified retinopathy severity Laterality: right Qualified Code(s): E11.319 - Type 2 diabetes mellitus with unspecified diabetic retinopathy without macular edema Code(s): E11.9 - Type 2 diabetes mellitus without complications Status: Chronic Assessment and Plan: HgbA1C is 5.3%. The patient's blood glucose was reviewed on 09/28 Glucose still elevated but should improve off steroids. Continue AccuCheks covering with sliding scale. Hypoglycemia protocol available as needed. Continue to follow. Advance sliding scale (9) Hypertension: Code(s): I10 - Essential (primary) hypertension Status: Chronic Assessment and Plan: Home meds: Hydralazine 50mg TID, Metoprolol 100mg ER, Amlodipine 5mg Blood pressure reviewed on 09/28 Changed Norvasc to Procardia XL. Continued metoprolol. Hydralazine stopped. Bumex added. BP became soft so Procardia and Bumex held. BP better. Bumex continued at lower dose. Continue metoprolol. Resume Procardia today Hopefully BP will improve off steroids. (10) Failure to thrive: Status: Acute Assessment and Plan: Life Skills Coordinator Volunteer consulted. Daily weights. Encouraged with meals and nutritional supplement. (11) Pericarditis: Code(s): I31.9 - Disease of pericardium, unspecified Status: Acute Assessment and Plan: Recently hospitalized for pericarditis, started on ibuprofen and colchicine and patient reports pain resolved --No NSAIDs for BUTCH/CKD --No colchicine for GI symptoms --Started on Prednisone 40mg with a taper --Seen by Cardiology -- Repeat echocardiogram with no pericardial effusion. Pericarditis could be related to SLE. Changed to pulse dose steroids but now complete. (12) Enteritis: Code(s): K52.9 - Noninfective gastroenteritis and colitis, unspecified Status: Acute Assessment and Plan: Patient with GI symptoms. C-diff negative. Seen by GI and no further recommendations for now, Colchicine dc'd. Continues to tolerate meals fairly but with very poor appetite. Service Clerk consulted. Carafate was stopped since she has been on for almost [address] scan 09/23 showing fecal impaction. Started Miralax and began to have BMs. Multip-le stools so Miralax stopped (last dose 09/27). Monitor stool output. Continue PPI. Antiemetics PRN. Continue supportive care. (13) Generalized muscle weakness: Code(s): M62.81 - Muscle weakness (generalized) Status: Acute Assessment and Plan: PT/OT eval and treatment with Ortho restrictions. Total CK normal. Fall precautions. Plan Possible pancreatitis - CT evidence of pancreatitis. Lipase 840. Patient without and symptoms to suggest this. Pancreatic edema from anasarca? GB absent and LFTs okay so don't believe choledocholithiasis. TG level 184. Lipase trending down. Continue to follow DVT prophylaxis - Jessa Quintero Code status - full Subjective Date/time seen: 09/28/24 13:56 Interval history: 63yo female with CKD, DM and anxiety here for n/v and diarrhea. Slept poorly. No CP or SOB. Having diarrhea but slowing. Exam Narrative: AF 98.2 174/81 85 20 100% ra Gen - NARD Chest - few basilar crackles in the flank. clear anteriorly. CV - RRR S1/S2 Abd - Soft, NT/ND, Positive BS Ext - diffuse edema but improved Psych - Nml mood but depressed affect Skin - Warm and dry. brusing noted behind right knee Objective Data Vital Signs Vital Signs: Vital Signs - 24 hr 09/27/24 20:00 09/27/24 21:50 09/28/24 02:00 Temperature 98.6 F 98.8 F Pulse Rate 99 87 89 Respiratory Rate 18 18 18 Blood Pressure 174/110 H 185/96 H Pulse Oximetry 98 99 100 Oxygen Delivery Room Air Fraction of Inspired Oxygen 09/28/24 04:40 09/28/24 09:45 09/28/24 10:49 Temperature 98.2 F Pulse Rate 85 85 Respiratory Rate 20 Blood Pressure 170/99 H 172/87 H 171/87 H Pulse Oximetry 100 100 Oxygen Delivery Fraction of Inspired Oxygen 09/28/24 11:45 Temperature Pulse Rate Respiratory Rate Blood Pressure 174/81 H Pulse Oximetry Oxygen Delivery Fraction of Inspired Oxygen Intake/Output Intake/Output: Intake & Output 09/25/24 09/26/24 09/27/24 09/28/24 23:59 23:59 23:59 23:59 Intake Total 7393 213 9535 600 Output Total 750 450 800 Balance 266 426 380 600 Meds/Results Medications: Active Medications Generic Name Dose Route Start Last Admin Trade Name Freq PRN Reason Stop Dose Admin Acetaminophen 650 mg 09/26/24 07:08 Acetaminophen 325 Mg Tablet PO Q6H PRN Mild Pain (1-3) or Fever Hydrocodone Bitart/Acetaminophen 1 tab 09/23/24 11:21 09/27/24 23:46 Hydrocodone/Acetaminophen (*Crx) 5-325 Mg Tablet PO 1 tab Q6H PRN Administration Pain Rated 4-6 Albuterol/Ipratropium 3 ml 09/24/24 07:54 Ipratropium 0.5 Mg/Albuterol Sulfate 2.5 Mg Ampul.Neb 3 Ml INHALATION Q6HRT PRN Shortness Of Breath Apixaban 2.5 mg 09/07/24 09:30 09/26/24 09:30 Apixaban 2.5 Mg Tablet PO 2.5 mg Q12HR NAHOMI Administration Artificial Tears 1 drop 09/07/24 09:35 09/28/24 08:18 Artificial Tears Ophth Soln 15 Ml Bottle RIGHT EYE 1 drop Q12HR NAHOMI Administration Brimonidine Tartrate 1 drop 09/07/24 09:30 09/28/24 08:17 Brimonidine Tartrate 0.2% Op Soln 5 Ml Btl EACH EYE 1 drop Q12HR NAHOMI Administration Bumetanide 1 mg 09/26/24 17:00 09/28/24 08:16 Bumetanide Inj 1 Mg/4 Ml Vial IV PUSH 1 mg BID NAHOMI Administration Dextrose 12.5 gm 09/07/24 09:15 Dextrose 50% 25 Gm/50 Ml Syringe IV PUSH PRN PRN Hypoglycemia Protocol Dorzolamide HCl 1 drop 09/07/24 09:30 09/28/24 08:19 Dorzolamide Hcl 2% Ophth Drops RIGHT EYE 1 drop Q12HR NAHOMI Administration Glucagon 1 mg 09/07/24 09:15 Glucagon For Inj 1 Mg Vial IM PRN PRN Hypoglycemia Protocol Glucose 15 gm 09/07/24 09:15 Glucose Oral Gel 15 Gm Of Glucse In 37.5 Gm Tube PO PRN PRN Hypoglycemia Protocol Guaifenesin 600 mg 09/24/24 09:00 09/28/24 08:16 Guaifenesin 12 Hr 600 Mg Tabcr PO 600 mg Q12HR NAHOMI Administration Guaifenesin/Dextromethorphan 5 ml 09/18/24 15:30 09/25/24 09:18 Guaifenesin/Dextromethorphan 10 Ml Udc PO 5 ml Q4H PRN Administration Cough Dextrose 1,000 mls @ 100 mls/hr 09/07/24 09:15 Dextrose 5% 1,000 Ml IVPB PRN PRN Hypoglycemia Protocol Ceftriaxone Sodium 1 gm in 50 mls @ 100 mls/hr 09/27/24 08:00 09/28/24 08:12 Rocephin 1 Gm/Ns 50 Ml IVPB 100 mls/hr Q24H NAHOMI Administration Vancomycin HCl 1,500 mg in 500 mls @ 250 mls/hr 09/27/24 09:00 09/27/24 10:54 Vancomycin 1,500 Mg/Ns 500 Ml IVPB 250 mls/hr Q36H NAHOMI Administration Albumin Human 100 mls @ 60 mls/hr 09/27/24 18:00 09/28/24 12:36 Albutein IVPB 60 mls/hr Q6HR NAHOMI Administration Insulin Aspart 2 - 5 units 09/17/24 08:00 09/28/24 11:53 Insulin Aspart (*Bkc) 100 Units/Ml SUB-Q Not Given TIDWM NAHOMI Protocol Insulin Glargine 25 units 09/24/24 21:00 09/27/24 21:39 Insulin Glargine (*Bkc) 100 Units/Ml SUB-Q 25 units HS NAHOMI Administration Loratadine 5 mg 09/18/24 15:35 09/28/24 08:17 Loratadine 5 Mg Tablet PO 5 mg QAM NAHOMI Administration Metoprolol Succinate 100 mg 09/07/24 09:00 09/28/24 08:16 Metoprolol Succinate Ext Rel 100 Mg Tabcr PO 100 mg QAM NAHOMI Administration Morphine Sulfate 1 mg 09/26/24 07:10 Morphine Sulfate (*Crx) 2 Mg/Ml Inj IV PUSH Q4H PRN Pain Rated 7-10 Naloxone HCl 0.1 mg 09/07/24 08:19 Naloxone Hcl 0.4 Mg/Ml Vial IV PUSH Q2M PRN Opiate Reversal Nifedipine 30 mg 09/25/24 09:00 09/28/24 08:55 Nifedipine 30 Mg Tab.Er.24 PO 30 mg QAM NAHOMI Administration Ondansetron HCl 4 mg 09/07/24 09:15 09/13/24 14:52 Ondansetron Inj 4 Mg/2 Ml Vial IV PUSH 4 mg Q6H PRN Administration Nausea And Vomiting Pantoprazole Sodium 40 mg 09/27/24 09:00 09/28/24 08:17 Pantoprazole 40 Mg Tablet PO 40 mg Q12HR NAHOMI Administration Polysaccharide Iron Complex 150 mg 09/07/24 17:00 09/28/24 08:16 Polysaccharide Iron Complex 150 Mg Capsule PO 150 mg BIDWM NAHOMI Administration Rosuvastatin Calcium 5 mg 09/07/24 09:00 09/28/24 08:16 Rosuvastatin 5 Mg Tablet PO 5 mg QAM NAHOMI Administration Sodium Bicarbonate 1,300 mg 09/10/24 09:00 09/28/24 12:35 Sodium Bicarbonate Tab 650 Mg Tablet PO 1,300 mg TID NAHOMI Administration Timolol Maleate 1 drop 09/07/24 09:35 09/28/24 08:18 Timolol Maleate 0.5% Op Soln 5 Ml Bottle EACH EYE 1 drop Q12HR NAHOMI Administration Radiology Results: ITS Impressions Abdomen/Pelvis CT 09/07/24 05:37 Impression: Minimal bilateral pleural effusions. Horseshoe kidney. Elbow X-Ray 09/17/24 12:16 IMPRESSION: 1. No fracture. Knee X-Ray 09/17/24 12:17 IMPRESSION: 1. Minimally displaced extra articular fracture of the proximal left fibular diaphysis. Correlate for any associated ankle pain and consider additional radiographs of the more distal tibia and fibula as clinically indicated. Tibia/Fibula X-Ray 09/17/24 15:54 IMPRESSION: 1. Fractures of proximal and distal fibula. 2. Comminuted fracture of distal tibia. Foot X-Ray 09/21/24 17:53 IMPRESSION: 1. No fracture. Chest X-Ray 09/22/24 17:31 IMPRESSION: No acute cardiopulmonary process. Chest/Abdomen/Pelvis CT 09/23/24 22:42 IMPRESSION: Small left and trace right pleural effusions. Pancreatic head edema and peripancreatic inflammatory changes suggestive of acute interstitial pancreatitis. Correlate with pancreatic labs. Possible fecal impaction. Small volume ascites. Diffuse body wall edema. Ankle X-Ray 09/27/24 14:14 IMPRESSION: 1. Trimalleolar ankle fracture without change in alignment. Labs Labs: Laboratory Results - last 24 hr 09/23/24 09/23/24 09/27/24 20:41 23:12 16:37 WBC RBC Hgb Hct MCV MCH MCHC RDW Plt Count MPV Immature Gran % (Auto) Neut % (Auto) Lymph % (Auto) Swisher % (Auto) Eos % (Auto) Baso % (Auto) Lymph # (Auto) Swisher # (Auto) Eos # (Auto) Baso # (Auto) Abs Immat Gran (auto) Absolute Neuts (auto) Absolute Nucleated RBC Nucleated RBC % PT INR APTT Sodium Potassium Chloride Carbon Dioxide Anion Gap BUN Creatinine Estim Creat Clear Calc Estimated GFR Glucose POC Capillary Glucose 229 H Calcium Phosphorus Magnesium Total Bilirubin AST ALT Alkaline Phosphatase Total Protein Albumin Serum Immunofixation Normal pattern. Urine Immunofixation Tot Complement (CH50) 48 09/27/24 09/28/24 09/28/24 21:56 06:15 07:27 WBC 11.3 H RBC 2.92 L Hgb 8.4 L Hct 26.4 L MCV 90.4 MCH 28.8 MCHC 31.8 L RDW 15.4 H Plt Count 117 L MPV 12.2 H Immature Gran % (Auto) 0.9 H Neut % (Auto) 92.1 H Lymph % (Auto) 3.3 L Swisher % (Auto) 3.5 Eos % (Auto) 0.0 Baso % (Auto) 0.2 Lymph # (Auto) 0.37 L Swisher # (Auto) 0.4 Eos # (Auto) 0.0 Baso # (Auto) 0.0 Abs Immat Gran (auto) 0.10 H Absolute Neuts (auto) 10.4 H Absolute Nucleated RBC 0.000 Nucleated RBC % 0.0 PT 17.3 H INR 1.4 APTT 38.2 H Sodium 136 L Potassium 3.5 Chloride 104 Carbon Dioxide 22 Anion Gap 10 BUN 94 H Creatinine 2.35 H Estim Creat Clear Calc 28 Estimated GFR 21 L Glucose 239 H POC Capillary Glucose 228 H 255 H Calcium 6.6 L Phosphorus 4.7 H Magnesium 2.1 Total Bilirubin 1.2 AST 32 ALT 26 Alkaline Phosphatase 86 Total Protein 4.0 L Albumin 2.4 L Serum Immunofixation Urine Immunofixation Tot Complement (CH50) 09/28/24 11:27 WBC RBC Hgb Hct MCV MCH MCHC RDW Plt Count MPV Immature Gran % (Auto) Neut % (Auto) Lymph % (Auto) Swisher % (Auto) Eos % (Auto) Baso % (Auto) Lymph # (Auto) Swisher # (Auto) Eos # (Auto) Baso # (Auto) Abs Immat Gran (auto) Absolute Neuts (auto) Absolute Nucleated RBC Nucleated RBC % PT INR APTT Sodium Potassium Chloride Carbon Dioxide Anion Gap BUN Creatinine Estim Creat Clear Calc Estimated GFR Glucose POC Capillary Glucose 196 H Calcium Phosphorus Magnesium Total Bilirubin AST ALT Alkaline Phosphatase Total Protein Albumin Serum Immunofixation Urine Immunofixation Tot Complement (CH50)
--- NOTE | 2024-09-28 15:02 | P.PNOP_ITS ---
Subjective Subjective Date/Time Seen: 09/28/24 15:02 Principal diagnosis: Left ankle fracture Interval history: Patient seen and examined. Bilateral ankle pain with left ankle fracture. Continues to have swelling in all 4 extremities. Fracture boot on left lower extremity. Review of Systems Constitutional Constitutional: Denies fever(s) Eyes Eyes: Denies blurry vision ENT Reports Normal hearing present Cardiovascular Cardiovascular: Denies dyspnea Respiratory Respiratory: Denies wheezing Musculoskeletal Musculoskeletal: Reports as per HPI and Denies numbness Integumentary/Breasts Skin/Breast: Denies changing lesions and Denies sores Neurologic Reports Normal hearing present, Denies behavioral changes, Denies confusion, Denies numbness and Denies convulsions Psychiatric Psychiatric: Denies behavioral changes, Denies confusion and Denies hallucinations Endocrine Endocrine: Denies heat intolerance Allergic/Immunologic Allergic/Immunologic: Denies wheezing Exam Const General: cooperative and ill appearing chronically Orientation/consciousness: patient oriented x3 HENMT Head: normal to inspection Extrem Right upper extremity: full ROM and elbow/forearm normal to inspection, tenderness and normal ROM Left upper extremity: normal to inspection and full ROM Right lower extremity: normal to inspection, full ROM, knee (pitting edema ) Details: normal to inspection and normal ROM; no tenderness, lower leg (pitting edema ), ankle (pitting edema ) Details: no tenderness and foot (pitting edema ) Details: tenderness (forefoot ), edema (4+ pitting edema ), ecchymosis and crepitus Left lower extremity: knee Details: tenderness Location: of the proximal fibula and abnormal ROM Details: pain with active ROM, lower leg (edema ) Details: tenderness Location: of the proximal fibula, of the midshaft tibia and of the distal tibia, ankle (mild swelling ) Details: abnormal to inspection, tenderness Location: of the lateral malleolus and of the medial malleolus and abnormal ROM Details: pain with active ROM Details: with plantar flexion and with dorsiflexion; no warmth, no abrasions and no lacerations and foot (edema ) Details: tenderness, toes with normal ROM, edema Location: of the dorsal foot and vascular exam Details: dorsalis pedis pulse present Objective Data Vital Signs Vital Signs: Vital Signs - 24 hr 09/27/24 20:00 09/27/24 21:50 09/28/24 02:00 Temperature 98.6 F 98.8 F Pulse Rate 99 87 89 Respiratory Rate 18 18 18 Blood Pressure 174/110 H 185/96 H Pulse Oximetry 98 99 100 Oxygen Delivery Room Air Fraction of Inspired Oxygen 21 09/28/24 04:40 09/28/24 09:45 09/28/24 10:49 Temperature 98.2 F Pulse Rate 85 85 Respiratory Rate 20 Blood Pressure 170/99 H 172/87 H 171/87 H Pulse Oximetry 100 100 Oxygen Delivery Fraction of Inspired Oxygen 09/28/24 11:45 Temperature Pulse Rate Respiratory Rate Blood Pressure 174/81 H Pulse Oximetry Oxygen Delivery Fraction of Inspired Oxygen Intake/Output Intake/Output: Intake & Output 09/25/24 09/26/24 09/27/24 09/28/24 23:59 23:59 23:59 23:59 Intake Total 1744 744 9266 600 Output Total 750 450 800 Balance 266 426 380 600 Meds/Results Medications: Active Medications Generic Name Dose Route Start Last Admin Trade Name Freq PRN Reason Stop Dose Admin Acetaminophen 650 mg 09/26/24 07:08 Acetaminophen 325 Mg Tablet PO Q6H PRN Mild Pain (1-3) or Fever Hydrocodone Bitart/Acetaminophen 1 tab 09/23/24 11:21 09/27/24 23:46 Hydrocodone/Acetaminophen (*Crx) 5-325 Mg Tablet PO 1 tab Q6H PRN Administration Pain Rated 4-6 Albuterol/Ipratropium 3 ml 09/24/24 07:54 Ipratropium 0.5 Mg/Albuterol Sulfate 2.5 Mg Ampul.Neb 3 Ml INHALATION Q6HRT PRN Shortness Of Breath Apixaban 2.5 mg 09/07/24 09:30 09/26/24 09:30 Apixaban 2.5 Mg Tablet PO 2.5 mg Q12HR NAHOMI Administration Artificial Tears 1 drop 09/07/24 09:35 09/28/24 08:18 Artificial Tears Ophth Soln 15 Ml Bottle RIGHT EYE 1 drop Q12HR NAHOMI Administration Brimonidine Tartrate 1 drop 09/07/24 09:30 09/28/24 08:17 Brimonidine Tartrate 0.2% Op Soln 5 Ml Btl EACH EYE 1 drop Q12HR NAHOMI Administration Bumetanide 1 mg 09/26/24 17:00 09/28/24 08:16 Bumetanide Inj 1 Mg/4 Ml Vial IV PUSH 1 mg BID NAHOMI Administration Dextrose 12.5 gm 09/07/24 09:15 Dextrose 50% 25 Gm/50 Ml Syringe IV PUSH PRN PRN Hypoglycemia Protocol Dorzolamide HCl 1 drop 09/07/24 09:30 09/28/24 08:19 Dorzolamide Hcl 2% Ophth Drops RIGHT EYE 1 drop Q12HR NAHOMI Administration Glucagon 1 mg 09/07/24 09:15 Glucagon For Inj 1 Mg Vial IM PRN PRN Hypoglycemia Protocol Glucose 15 gm 09/07/24 09:15 Glucose Oral Gel 15 Gm Of Glucse In 37.5 Gm Tube PO PRN PRN Hypoglycemia Protocol Guaifenesin 600 mg 09/24/24 09:00 09/28/24 08:16 Guaifenesin 12 Hr 600 Mg Tabcr PO 600 mg Q12HR NAHOMI Administration Guaifenesin/Dextromethorphan 5 ml 09/18/24 15:30 09/25/24 09:18 Guaifenesin/Dextromethorphan 10 Ml Udc PO 5 ml Q4H PRN Administration Cough Dextrose 1,000 mls @ 100 mls/hr 09/07/24 09:15 Dextrose 5% 1,000 Ml IVPB PRN PRN Hypoglycemia Protocol Ceftriaxone Sodium 1 gm in 50 mls @ 100 mls/hr 09/27/24 08:00 09/28/24 08:12 Rocephin 1 Gm/Ns 50 Ml IVPB 100 mls/hr Q24H NAHOMI Administration Albumin Human 100 mls @ 60 mls/hr 09/27/24 18:00 09/28/24 12:36 Albutein IVPB 60 mls/hr Q6HR NAHOMI Administration Insulin Aspart 3 - 6 units 09/28/24 17:00 Insulin Aspart (*Bkc) 100 Units/Ml SUB-Q TIDWM NAHOMI Protocol Insulin Glargine 25 units 09/24/24 21:00 09/27/24 21:39 Insulin Glargine (*Bkc) 100 Units/Ml SUB-Q 25 units HS NAHOMI Administration Linezolid 600 mg 09/28/24 14:05 Linezolid 600 Mg Tablet PO Q12HR NAHOMI Loratadine 5 mg 09/18/24 15:35 09/28/24 08:17 Loratadine 5 Mg Tablet PO 5 mg QAM NAHOMI Administration Metoprolol Succinate 100 mg 09/07/24 09:00 09/28/24 08:16 Metoprolol Succinate Ext Rel 100 Mg Tabcr PO 100 mg QAM NAHOMI Administration Morphine Sulfate 1 mg 09/26/24 07:10 Morphine Sulfate (*Crx) 2 Mg/Ml Inj IV PUSH Q4H PRN Pain Rated 7-10 Naloxone HCl 0.1 mg 09/07/24 08:19 Naloxone Hcl 0.4 Mg/Ml Vial IV PUSH Q2M PRN Opiate Reversal Nifedipine 30 mg 09/25/24 09:00 09/28/24 08:55 Nifedipine 30 Mg Tab.Er.24 PO 30 mg QAM NAHOMI Administration Ondansetron HCl 4 mg 09/07/24 09:15 09/13/24 14:52 Ondansetron Inj 4 Mg/2 Ml Vial IV PUSH 4 mg Q6H PRN Administration Nausea And Vomiting Pantoprazole Sodium 40 mg 09/27/24 09:00 09/28/24 08:17 Pantoprazole 40 Mg Tablet PO 40 mg Q12HR NAHOMI Administration Polysaccharide Iron Complex 150 mg 09/07/24 17:00 09/28/24 08:16 Polysaccharide Iron Complex 150 Mg Capsule PO 150 mg BIDWM NAHOMI Administration Rosuvastatin Calcium 5 mg 09/07/24 09:00 09/28/24 08:16 Rosuvastatin 5 Mg Tablet PO 5 mg QAM NAHOMI Administration Sodium Bicarbonate 1,300 mg 09/10/24 09:00 09/28/24 12:35 Sodium Bicarbonate Tab 650 Mg Tablet PO 1,300 mg TID NAHOMI Administration Timolol Maleate 1 drop 09/07/24 09:35 09/28/24 08:18 Timolol Maleate 0.5% Op Soln 5 Ml Bottle EACH EYE 1 drop Q12HR NAHOMI Administration Radiology Results: Radiographs left ankle: Left ankle radiographs from 09/27/2024 reviewed. These show trimalleolar fracture of the left ankle with lateral displacement Labs Labs: Laboratory Results - last 24 hr 09/23/24 09/23/24 09/27/24 20:41 23:12 16:37 WBC RBC Hgb Hct MCV MCH MCHC RDW Plt Count MPV Immature Gran % (Auto) Neut % (Auto) Lymph % (Auto) [place] % (Auto) Eos % (Auto) Baso % (Auto) Lymph # (Auto) [place] # (Auto) Eos # (Auto) Baso # (Auto) Abs Immat Gran (auto) Absolute Neuts (auto) Absolute Nucleated RBC Nucleated RBC % PT INR APTT Sodium Potassium Chloride Carbon Dioxide Anion Gap BUN Creatinine Estim Creat Clear Calc Estimated GFR Glucose POC Capillary Glucose 229 H Calcium Phosphorus Magnesium Total Bilirubin AST ALT Alkaline Phosphatase Total Protein Albumin Serum Immunofixation Normal pattern. Urine Immunofixation 09/27/24 09/28/24 09/28/24 21:56 06:15 07:27 WBC 11.3 H RBC 2.92 L Hgb 8.4 L Hct 26.4 L MCV 90.4 MCH 28.8 MCHC 31.8 L RDW 15.4 H Plt Count 117 L MPV 12.2 H Immature Gran % (Auto) 0.9 H Neut % (Auto) 92.1 H Lymph % (Auto) 3.3 L [place] % (Auto) 3.5 Eos % (Auto) 0.0 Baso % (Auto) 0.2 Lymph # (Auto) 0.37 L [place] # (Auto) 0.4 Eos # (Auto) 0.0 Baso # (Auto) 0.0 Abs Immat Gran (auto) 0.10 H Absolute Neuts (auto) 10.4 H Absolute Nucleated RBC 0.000 Nucleated RBC % 0.0 PT 17.3 H INR 1.4 APTT 38.2 H Sodium 136 L Potassium 3.5 Chloride 104 Carbon Dioxide 22 Anion Gap 10 BUN 94 H Creatinine 2.35 H Estim Creat Clear Calc 28 Estimated GFR 21 L Glucose 239 H POC Capillary Glucose 228 H 255 H Calcium 6.6 L Phosphorus 4.7 H Magnesium 2.1 Total Bilirubin 1.2 AST 32 ALT 26 Alkaline Phosphatase 86 Total Protein 4.0 L Albumin 2.4 L Serum Immunofixation Urine Immunofixation 09/28/24 11:27 WBC RBC Hgb Hct MCV MCH MCHC RDW Plt Count MPV Immature Gran % (Auto) Neut % (Auto) Lymph % (Auto) [place] % (Auto) Eos % (Auto) Baso % (Auto) Lymph # (Auto) [place] # (Auto) Eos # (Auto) Baso # (Auto) Abs Immat Gran (auto) Absolute Neuts (auto) Absolute Nucleated RBC Nucleated RBC % PT INR APTT Sodium Potassium Chloride Carbon Dioxide Anion Gap BUN Creatinine Estim Creat Clear Calc Estimated GFR Glucose POC Capillary Glucose 196 H Calcium Phosphorus Magnesium Total Bilirubin AST ALT Alkaline Phosphatase Total Protein Albumin Serum Immunofixation Urine Immunofixation Progress Note: A&P Assessment and Plan (1) Fracture of ankle, trimalleolar, left, closed: Qualifiers: Encounter type: initial encounter Qualified Code(s): S82.852A - Displaced trimalleolar fracture of left lower leg, initial encounter for closed fracture Code(s): S82.852A - Displaced trimalleolar fracture of left lower leg, initial encounter for closed fracture Status: Acute Assessment and Plan: patient with fall while inpatient in hospital. Left ankle fracture. New radiographs show instability of the fracture and displacement. Swelling of left leg improved however patient's overall medical condition is still somewhat uncertain. However, there is malalignment of the left ankle fracture as well as instability. She would benefit from internal fixation with realignment. She is at elevated risk due to her medical condition. This was reviewed with the patient. She would like to discuss with her . Await medical clearance to proceed with left ankle open reduction internal fixation. Plan Discussed nonoperative and operative treatment options with the patient. Risks and benefits of each as well as alternatives were reviewed. All of the p atient's questions were answered. The risks of surgery reviewed including but not limited to: Neurovascular damage, wound complication, infection, blood clot, pulmonary embolus, stroke, myocardial infarction, and anesthetic risks up to and including . Continued pain and possible dysfunction were explained. Specific risks of the procedure including later recurrence of deformity. No guarantees were offered. If hardware used, discussed risk of failure/ breakage and possible need for removal. If complications occur, the patient understands the need for further treatment, possible further surgery. Patient verbalizes understanding and wishes to proceed. PLAN: Open reduction internal fixation left ankle fracture [facility]illing [facility] Follow-up Hospital Follow-up: [id number] [facility] Hosp Care Mod (35-49 min) [facility] Medical History (Updated 09/28/24 @ 15:07 by Donald Lord MD) Fracture of ankle, trimalleolar, left, closed Swelling of right foot Fibula fracture Diabetes mellitus Chronic renal disease Anxiety Surgical History History of appendectomy Family History Father Hypertension Diabetes mellitus Lymphoma Grandparent Diabetes mellitus Grandparent Diabetes mellitus Mother Pacemaker Social History Social History Smoking status: Former smoker Tobacco type: cigarettes Alcohol intake: former Substance use: former Substance use type: does not use Do You Feel Safe in your Home?: Yes Lack of Transportation: No Lack of Food: Never True Current Housing: I Have Housing Concerned About Future Housing: No Difficulty Paying Gas/Electric Bills: No Difficulty Paying for Meds: No Currently Unemployed: No Education: High School Diploma/GED Difficulty w/ Childcare or Family Care: No Spiritual care concerns: No
--- NOTE | 2024-09-28 15:41 | PCOTNOTE ---
Patient is with PT at this time. Patient has a low activity tolerance. OT will attempt again tomorrow
--- NOTE | 2024-09-28 16:04 | PCPTNOTE ---
On 09/28/24, the student, HARRY Clark, provided care and completed [facility] documentation on this patient. I have reviewed the student's documentation and agree with the findings.
[2024-09-28] MEDS: LINEZOLID 600 MG TABLET PO ×2 (17:15→21:04)
[2024-09-28 19:09] LABS: Hematocrit 27.9 % (37.0-47.0); Hemoglobin 9.3 g/dL (12.0-15.0)
[2024-09-28 19:29] LABS: Albumin 2.3 g/dL (3.8-4.8); Alpha 1 Globulin 0.4 g/dL (0.2-0.3); Alpha 2 Globulin 0.6 g/dL (0.5-0.9); Beta 1 Globulin 0.3 g/dL (0.4-0.6); Gamma Globulin 0.7 g/dL (0.8-1.7)
[2024-09-28] MEDS: INSULIN GLARGINE (*BKC) 100 UNITS/ML 25 UNITS SUB-Q (21:06)
[2024-09-28 21:16] LABS: Glucose Point of Care 156 mg/dl (65-105)
[2024-09-28 21:16] LABS: Glucose Point of Care 192 mg/dl (65-105)
[2024-09-29] VITALS (11 sets, daily range): BP systolic 93–181; BP diastolic 48–92; PULSE 56–100; RESP 14–18; TEMP 35.6–36.7; O2SAT 11–100
[2024-09-29] MEDS: ALBUMIN HUMAN 25% 25 GM/100 ML 100 ML IVPB ×3 (05:41→17:34)
[2024-09-29 07:56] LABS: Glucose Point of Care 112 mg/dl (65-105)
[2024-09-29] MEDS: POLYSACCHARIDE IRON COMPLEX 150 MG CAPSULE PO ×2 (08:43→17:36)
[2024-09-29] MEDS: LORATADINE 5 MG TABLET PO (08:43)
[2024-09-29] MEDS: ROSUVASTATIN 5 MG TABLET PO (08:44)
[2024-09-29] MEDS: PANTOPRAZOLE 40 MG TABLET PO ×2 (08:44→21:13)
[2024-09-29] MEDS: guaiFENesin 12 HR 600 MG TABCR PO ×2 (08:44→21:13)
[2024-09-29] MEDS: METOPROLOL SUCCINATE EXT REL 100 MG TABCR PO (08:44)
[2024-09-29] MEDS: SODIUM BICARBONATE TAB 650 MG TABLET 1300 MG PO ×3 (08:44→17:37)
[2024-09-29] MEDS: LINEZOLID 600 MG TABLET PO ×2 (08:44→21:13)
[2024-09-29] MEDS: NIFEdipine 30 MG TAB.ER.24 PO (08:45)
[2024-09-29] MEDS: BUMETANIDE INJ 1 MG/4 ML VIAL IV PUSH ×2 (08:46→17:36)
[2024-09-29 08:59] LABS: Basophils Percent Auto 0.1 % (0.2-1.2); Hematocrit 21.1 % (37.0-47.0); Immature Granulocyte Percent A 1.2 % (0-0.5); Immature Platelet Fraction Pct 3.9 % (0.9-11.2); Lymphocytes Absolute Auto 0.88 K/mm3 (0.9-3.2); Mean Corpuscular HGB Conc 32.7 g/dl (32-36); Mean Corpuscular Hemoglobin 29.5 pg (26-34); Mean Corpuscular Volume 90.2 fl (80-100); Mean Platelet Volume 12.2 fl (7.4-10.4); Monocytes Absolute Auto 0.4 K/mm3 (0.1-0.6); Monocytes Percent Auto 4.9 % (2.6-8.5); Neutrophils Absolute Auto 6.6 K/mm3 (1.3-6.7); Neutrophils Percent Auto 82.8 % (45.5-73.1); Platelet Count Result 86 k/mm3 (150-375); Red Blood Count 2.34 M/mm3 (4.2-5.4); Red Cell Distribution Width 15.7 % (11.5-14.5)
[2024-09-29 09:09] LABS: Hemoglobin 6.9 g/dL (12.0-15.0)
[2024-09-29 09:13] LABS: Alanine Aminotransferase 15 U/L (6-35); Albumin Level 2.8 g/dL (3.5-5.1); Alkaline Phosphatase 47 U/L (38-126); Anion Gap 9 mmol/L (4-12); Aspartate Amino Transferase 21 U/L (14-36); Bilirubin,Total 1.3 mg/dL (0.2-1.3); Blood Urea Nitrogen 96 mg/dL (7-17); Calcium 6.9 mg/dL (8.4-10.2); Carbon Dioxide 25 mmol/L (22-30); Chloride 105 mmol/L (98-107); Estimated CRCL calculation 29 ml/min; Estimated Glomerular Filt Rate 21; Glucose 104 mg/dL (65-110); Phosphorus 4.4 mg/dL (2.5-4.5); Potassium 3.5 mmol/L (3.4-5.0); Sodium 139 mmol/L (137-145)
[2024-09-29] MEDS: hydrALAZINE HCL 20 MG/ML VIAL IV PUSH (10:23)
--- NOTE | 2024-09-29 11:28 | P.PNNP_ITS ---
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 * nephrotic range proteinuria * s/p pulse dose steroids * Eliquis on hold * I discussed with the patient's and he is agreeable to kidney biopsy - tentatively scheduled for today * follow trend of repeat labs and UOP (2) Chronic kidney disease, stage IV (severe): Code(s): N18.4 - Chronic kidney disease, stage 4 (severe) Status: Chronic Assessment and Plan: * baseline creatinine runs ~ 2.5 - 3.2mg/dl per review of outpatient labs done by her primary blaster helper * secondary to hypertension, diabetes, vascular disease, and age-related change * noted on last appointment (April 2024) 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 Shook & Rosa Delgado NP (3) Hypertension: Code(s): I10 - Essential (primary) hypertension Status: Chronic Assessment and Plan: * BP better * restarted nifedipine * follow trend of hemodynamics (4) Anemia: Code(s): D64.9 - Anemia, unspecified Status: Acute Assessment and Plan: * drop in H/H noted by labs today * chronic element related to CKD * however, dropped to 3.8 - 3.9 on 09/21 * no evidence of acute blood loss anemia * no schistocytes seen * bilirubin normal * s/p 4U PRBCs transfusion * H/H relatively stable at this time * recent CT C/A/P with no evidence of acute blood loss but shows anasarca, possible pancreatitis and fecal impaction * occult blood of stool negative * anemia studies noted: * B12/folate normal in July 2024 * adequate iron stores (by 09/12 testing) * hemoglobin relatively stable at this time (5) Fracture of left proximal fibula: Code(s): S82.832A - Other fracture of upper and lower end of left fibula, initial encounter for closed fracture Status: Acute Assessment and Plan: * imaging with minimally displaced extra-articular fracture of the proximal left fibular diaphysis, distal fibular fx and comminuted fracture of the distal tibia * Ortho recommendations noted * fracture boot in place * PT/OT with precautions (6) Closed left ankle fracture: Qualifiers: Encounter type: initial encounter Qualified Code(s): S82.892A - Other fracture of left lower leg, initial encounter for closed fracture Code(s): S82.892A - Other fracture of left lower leg, initial encounter for closed fracture Status: Acute Assessment and Plan: * Left ankle xray noted: * comminuted fracture of the anterior distal tibia that extends into the tibiotalar joint space, additional fracture deformity within the medial and lateral malleolus. The fracture within the medial malleolus extends into the joint space and articular surface of the tibiotalar joint * fracture boot in place * Orthopedic recommendations noted * PT/OT with precautions (7) Atrial fibrillation: Code(s): I48.91 - Unspecified atrial fibrillation Status: Acute Assessment and Plan: * rate controlled * on Eliquis and metoprolol * holding Eliquis for renal biopsy (8) Pericarditis: Code(s): I31.9 - Disease of pericardium, unspecified Status: Acute Assessment and Plan: * as noted on previous hospitalization * was on ibuprofen and colcicine * discontinued due to BUTCH + CKD * completed prednisone taper * repeat echocardiogram with no pericardial effusion. * related to #1 (?) (9) Urinary tract infection: Code(s): N39.0 - Urinary tract infection, site not specified Status: Inactive Assessment and Plan: * recent UA suggestive * urine culture with E. Coli + Enterococcus * on antibiotic therapy (10) Diabetes mellitus: Qualifiers: Diabetes mellitus complication detail: with diabetic retinopathy D iabetes mellitus complication status: with ophthalmic complications Diabetes mellitus mcfp insulin use: without mcfp use Diabetes mellitus macular edema: without macular edema Diabetes mellitus type: type 2 Diabetic retinopathy severity: with unspecified retinopathy severity Laterality: right Qualified Code(s): E11.319 - Type 2 diabetes mellitus with unspecified diabetic retinopathy without macular edema Code(s): E11.9 - Type 2 diabetes mellitus without complications Status: Chronic Assessment and Plan: * follow accu-cheks * glycemic control per hospitalist Will continue to follow. L Subjective Date/time seen: 09/29/24 11:28 Interval history: Follow-up for acute kidney injury on top of chronic kidney disease. Improvement in blood pressure noted at this time; tentatively scheduled for renal biopsy later today although noted drop in H/H by labs earlier today; no other acute complaints voiced at the time of my visit; no events overnight or earlier today. Exam 2 Narrative: General: WD/WN female in NAD Heart: normal S1 and S2; no rub Lungs: clear bilaterally Abdomen: soft, nontender, nondistended, positive bowel sounds Extremities: diffuse edema (1 - 2+); left leg boot in place Skin: warm and intact Objective Data Vital Signs Vital Signs: Vital Signs Temp Pulse Resp BP Pulse Ox O2 Del Method 09/29/24 10:34 94 145/77 H 09/29/24 08:47 181/92 H 09/29/24 08:44 64 09/29/24 08:00 Room Air 09/29/24 04:00 97.5 F L 88 14 153/91 H 100 09/28/24 23:40 97.6 F 85 12 150/73 H 98 09/28/24 20:00 97.4 F L 84 14 127/70 100 Intake/Output Intake/Output: Intake & Output 09/26/24 09/27/24 09/28/24 09/29/24 23:59 23:59 23:59 23:59 Intake Total 876 1180 900 800 Output Total 450 800 Balance 426 380 900 800 Meds/Results Medications: Active Medications Generic Name Dose Route Start Last Admin Trade Name Freq PRN Reason Stop Dose Admin Acetaminophen 650 mg 09/26/24 07:08 Acetaminophen 325 Mg Tablet PO Q6H PRN Mild Pain (1-3) or Fever Hydrocodone Bitart/Acetaminophen 1 tab 09/23/24 11:21 09/29/24 14:36 Hydrocodone/Acetaminophen (*Crx) 5-325 Mg Tablet PO 1 tab Q6H PRN Administration Pain Rated 4-6 Albuterol/Ipratropium 3 ml 09/24/24 07:54 Ipratropium 0.5 Mg/Albuterol Sulfate 2.5 Mg Ampul.Neb 3 Ml INHALATION Q6HRT PRN Shortness Of Breath Apixaban 2.5 mg 09/07/24 09:30 02/02/25 09:30 Apixaban 2.5 Mg Tablet PO 2.5 mg Q12HR NAHOMI Administration Artificial Tears 1 drop 09/07/24 09:35 09/29/24 12:44 Artificial Tears Ophth Soln 15 Ml Bottle RIGHT EYE 1 drop Q12HR NAHOMI Administration Brimonidine Tartrate 1 drop 09/07/24 09:30 09/29/24 12:44 Brimonidine Tartrate 0.2% Op Soln 5 Ml Btl EACH EYE 1 drop Q12HR NAHOMI Administration Bumetanide 1 mg 09/26/24 17:00 09/29/24 17:36 Bumetanide Inj 1 Mg/4 Ml Vial IV PUSH 1 mg BID NAHOMI Administration Cefdinir 300 mg 09/30/24 09:00 Cefdinir 300 Mg Capsule PO 10/02/24 09:01 DAILY NAHOMI Dextrose 12.5 gm 09/07/24 09:15 Dextrose 50% 25 Gm/50 Ml Syringe IV PUSH PRN PRN Hypoglycemia Protocol Dorzolamide HCl 1 drop 09/07/24 09:30 09/29/24 12:44 Dorzolamide Hcl 2% Ophth Drops RIGHT EYE 1 drop Q12HR NAHOMI Administration Glucagon 1 mg 09/07/24 09:15 Glucagon For Inj 1 Mg Vial IM PRN PRN Hypoglycemia Protocol Glucose 15 gm 09/07/24 09:15 Glucose Oral Gel 15 Gm Of Glucse In 37.5 Gm Tube PO PRN PRN Hypoglycemia Protocol Guaifenesin 600 mg 09/24/24 09:00 09/29/24 08:44 Guaifenesin 12 Hr 600 Mg Tabcr PO 600 mg Q12HR NAHOMI Administration Guaifenesin/Dextromethorphan 5 ml 09/18/24 15:30 09/25/24 09:18 Guaifenesin/Dextromethorphan 10 Ml Udc PO 5 ml Q4H PRN Administration Cough Dextrose 1,000 mls @ 100 mls/hr 09/07/24 09:15 Dextrose 5% 1,000 Ml IVPB PRN PRN Hypoglycemia Protocol Albumin Human 100 mls @ 60 mls/hr 09/27/24 18:00 09/29/24 17:34 Albutein IVPB 60 mls/hr Q6HR NAHOMI Administration Insulin Aspart 3 - 6 units 09/28/24 17:00 09/29/24 17:37 Insulin Aspart (*Bkc) 100 Units/Ml SUB-Q Not Given TIDWM [facility] Protocol Insulin Glargine 25 units 09/24/24 21:00 09/28/24 21:06 Insulin Glargine (*Bkc) 100 Units/Ml SUB-Q 25 units HS NAHOMI Administration Linezolid 600 mg 09/28/24 14:05 09/29/24 08:44 Linezolid 600 Mg Tablet PO 10/04/24 21:01 600 mg Q12HR NAHOMI Administration Loratadine 5 mg 09/18/24 15:35 09/29/24 08:43 Loratadine 5 Mg Tablet PO 5 mg QAM [facility] Administration Metoprolol Succinate 100 mg 09/07/24 09:00 09/29/24 08:44 Metoprolol Succinate Ext Rel 100 Mg Tabcr PO 100 mg QAM [facility] Administration Morphine Sulfate 1 mg 09/26/24 07:10 Morphine Sulfate (*Crx) 2 Mg/Ml Inj IV PUSH Q4H PRN Pain Rated 7-10 Naloxone HCl 0.1 mg 09/07/24 08:19 Naloxone Hcl 0.4 Mg/Ml Vial IV PUSH Q2M PRN Opiate Reversal Nifedipine 30 mg 09/25/24 09:00 09/29/24 08:45 Nifedipine 30 Mg Tab.Er.24 PO 30 mg QAM [facility] Administration Ondansetron HCl 4 mg 09/07/24 09:15 09/13/24 14:52 Ondansetron Inj 4 Mg/2 Ml Vial IV PUSH 4 mg Q6H PRN Administration Nausea And Vomiting Pantoprazole Sodium 40 mg 09/27/24 09:00 09/29/24 08:44 Pantoprazole 40 Mg Tablet PO 40 mg Q12HR [facility] Administration Polysaccharide Iron Complex 150 mg 09/07/24 17:00 09/29/24 17:36 Polysaccharide Iron Complex 150 Mg Capsule PO 150 mg BIDWM [facility] Administration Rosuvastatin Calcium 5 mg 09/07/24 09:00 09/29/24 08:44 Rosuvastatin 5 Mg Tablet PO 5 mg QAM [facility] Administration Sodium Bicarbonate 1,300 mg 09/10/24 09:00 09/29/24 17:37 Sodium Bicarbonate Tab 650 Mg Tablet PO 1,300 mg TID [facility] Administration Timolol Maleate 1 drop 09/07/24 09:35 09/29/24 12:44 Timolol Maleate 0.5% Op Soln 5 Ml Bottle EACH EYE 1 drop Q12HR NAHOMI Administration Radiology Results: ITS Impressions Abdomen/Pelvis CT 09/07/24 05:37 Impression: Minimal bilateral pleural effusions. Horseshoe kidney. Elbow X-Ray 09/17/24 12:16 IMPRESSION: 1. No fracture. Knee X-Ray 09/17/24 12:17 IMPRESSION: 1. Minimally displaced extra articular fracture of the proximal left fibular diaphysis. Correlate for any associated ankle pain and consider additional radiographs of the more distal tibia and fibula as clinically indicated. Tibia/Fibula X-Ray 09/17/24 15:54 IMPRESSION: 1. Fractures of proximal and distal fibula. 2. Comminuted fracture of distal tibia. Foot X-Ray 09/21/24 17:53 IMPRESSION: 1. No fracture. Chest X-Ray 09/22/24 17:31 IMPRESSION: No acute cardiopulmonary process. Chest/Abdomen/Pelvis CT 09/23/24 22:42 IMPRESSION: Small left and trace right pleural effusions. Pancreatic head edema and peripancreatic inflammatory changes suggestive of acute interstitial pancreatitis. Correlate with pancreatic labs. Possible fecal impaction. Small volume ascites. Diffuse body wall edema. Ankle X-Ray 09/27/24 14:14 IMPRESSION: 1. Trimalleolar ankle fracture without change in alignment. Renal Biopsy Ultrasound 09/29/24 12:28 IMPRESSION: 1. Ultrasound-guided random core needle biopsy of the left moiety of a horseshoe kidney. Labs Labs: Laboratory Tests 09/29/24 08:38 09/29/24 08:38 Calcium 6.9 L Phosphorus 4.4 Magnesium 2.0 Iron 39 TIBC 104 L % Saturation 38 Ferritin 647.00 H Total Bilirubin 1.3 AST 21 ALT 15 Alkaline Phosphatase 47 Total Protein 4.0 L Albumin 2.8 L Microbiology 09/25/24 10:53 Clean Catch Midstream Urine Culture - Final Escherichia Coli Vanco Res Enterococcus faecium
--- NOTE | 2024-09-29 11:44 | PCOTNOTE ---
Addendum entered by RYAN Davis 09/29/24 12:18: Original Note: OUT OF ROOM. Will follow up. Original Note: OUT OF ROOM FOR X-RAY. Will follow up.
--- NOTE | 2024-09-29 11:57 | P.PNIM_ITS ---
Progress Note: A&P Assessment and Plan (1) Fall from ground level: Code(s): W18.30XA - Fall on same level, unspecified, initial encounter Status: Acute Assessment and Plan: Patient was admitted on 09/07 and had a fall while hospitalized on 09/17. Likely mechanical due to generalized muscle weakness. She slid down to the floor with PT in room. Rt elbow xray showing no fracture. Rt knee xray showing mild OA. She later had a right foot xray showing no fx She was found to have minimally displaced extra-articular fracture of the proximal left fibular diaphysis, distal fibular fx and comminuted fracture of the distal tibia. Left ankle xray again showing comminuted fracture of the anterior distal tibia that extends into the tibiotalar joint space, additional fracture deformity within the medial and lateral malleolus. The fracture within the medial malleolus extends into the joint space and articular surface of the tibiotalar joint. Ortho consulted and appreciate their input. Patient initially felt not a surgical candidate. She was placed in fracture boot. PT/OT treatment with Ortho precautions. Repeat xray showing no change in the fracture. Spoke with ortho who felt patient could undergo surgical repair which is planned on 09/30/24 Will likely need SNF/rehab placement. Continue supportive care with analgesics. (2) Fracture of left proximal fibula: Code(s): S82.832A - Other fracture of upper and lower end of left fibula, initial encounter for closed fracture Status: Acute Assessment and Plan: As above. (3) Closed left ankle fracture: Qualifiers: Encounter type: initial encounter Qualified Code(s): S82.892A - Other fracture of left lower leg, initial encounter for closed fracture Code(s): S82.892A - Other fracture of left lower leg, initial encounter for closed fracture Status: Acute Assessment and Plan: As above. (4) Anemia: Code(s): D64.9 - Anemia, unspecified Status: Acute Assessment and Plan: Baseline hgb unclear. Hgb around 10 when she is not hospitalized. Hgb 10 on admission but dropped to 7-8 range. Hgb was 7.2 on 09/17 but when rechecked on 09/21, Hgb critical at 3.9 (repeat was 3.8). Also with drop in plt count. No evidence of acute blood loss anemia. No schistocytes seen on CBC 09/22 or 09/23 and not mentioned prior. Bili normal She received 4U PRBCs. CT Ch/A/P showing no evidence of acute blood loss but shows anasarca, possible pancreatitis and fecal impaction. Occult blood of stool negative on 09/09/24. B12/folate normal in July. On 09/12/24, Iron 36, TIBC 161 and iron sat 22%. Hb 6.9 today transfuse 1 unit pRBC GI consulted for possibel Endoscopy Hold Eliquis (for Afib) (5) Acute on chronic renal failure: Code(s): N17.9 - Acute kidney failure, unspecified; N18.9 - Chronic kidney disease, unspecified Status: Acute Assessment and Plan: Patient with CKD stage 4. Baseline Cr 2.6-3.3 range. Patient with BUTCH with Cr 4. 21 on admission She was treated with IV fluids with improvement. Patient has some form of autoimmune disease that probably is affecting her kidneys. Hepatitis panel and HIV negative. Immunoglobulin levels normal (IgM elevated). RF negative. DULCE positive and 1:1280 and nuclear, homogeneous pattern. Has nephrotic range proteinuria. ESR 24. C3 and C4 low. Anti-myeloperoxidase positive. Antiprotienase and GBM negative. Nephrology consulted and appreciate their input. Consider SLE or microscopic polyangiitis. Consider also hydralazine induced SLE or hydralazine-induced ANCA associated vasculitis. SLE seems less likely. Good UOP with Bumex but Cr was up to 3.14. BP was too well controlled so Procardia held. Cr back down. Bumex able to be added back. Completed pulsed does steroids on 09/27. was agreeable for Albumin so this added. Eliquis held for possible renal biopsy today (6) Urinary tract infection: Code(s): N39.0 - Urinary tract infection, site not specified Status: Inactive Assessment and Plan: UCx on 09/07 was negative but repeat UCx grew pansensitive EColi on 09/13 treated with Rocephin and then Cefdinir She completed a course of abx. Repeat UA (09/25) showing 4+ protein, trace LE, 51-100 RBC and 0-5 WBC with 4+ bacteria. No squamous cells seen. UCx growing EColi 100K colonies and VRE 100K colonies. Unclear if this is a true infection with no WBC but with high colony counts and no squamous cells. Continue Rocephin; Change Vanco to Linezolid. Change to oral once renal biopsy complete. Day 1 on Linezolid and Day 2 on Rocephin monitor (7) Atrial fibrillation: Code(s): I48.91 - Unspecified atrial fibrillation Status: Acute Assessment and Plan: Rate controlled Continue Metoprolol; Eliquis on hold (8) Diabetes mellitus: Qualifiers: Diabetes mellitus complication detail: with diabetic retinopathy Diabetes mellitus complication status: with ophthalmic complications Diabetes mellitus penitentiary insulin use: without penitentiary use Diabetes mellitus macular edema: without macular edema Diabetes mellitus type: type 2 Diabetic ret inopathy severity: with unspecified retinopathy severity Laterality: right Qualified Code(s): E11.319 - Type 2 diabetes mellitus with unspecified diabetic retinopathy without macular edema Code(s): E11.9 - Type 2 diabetes mellitus without complications Status: Chronic Assessment and Plan: HgbA1C is 5.3%. The patient's blood glucose was reviewed on 09/28 Glucose still elevated but should improve off steroids. Continue AccuCheks covering with sliding scale. Hypoglycemia protocol available as needed. Continue to follow. Advance sliding scale (9) Hypertension: Code(s): I10 - Essential (primary) hypertension Status: Chronic Assessment and Plan: Home meds: Hydralazine 50mg TID, Metoprolol 100mg ER, Amlodipine 5mg Blood pressure reviewed on 09/28 Changed Norvasc to Procardia XL. Continued metoprolol. Hydralazine stopped. Bumex added. BP became soft so Procardia and Bumex held. BP better. Bumex continued at lower dose. Continue metoprolol. Resume Procardia today Hopefully BP will improve off steroids. (10) Failure to thrive: Status: Acute Assessment and Plan: Structural Metal Worker consulted. Daily weights. Encouraged with meals and nutritional supplement. (11) Pericarditis: Code(s): I31.9 - Disease of pericardium, unspecified Status: Acute Assessment and Plan: Recently hospitalized for pericarditis, started on ibuprofen and colchicine and patient reports pain resolved --No NSAIDs for BUTCH/CKD --No colchicine for GI symptoms --Started on Prednisone 40mg with a taper --Seen by Cardiology -- Repeat echocardiogram with no pericardial effusion. Pericarditis could be related to SLE. Changed to pulse dose steroids but now complete. (12) Enteritis: Code(s): K52.9 - Noninfective gastroenteritis and colitis, unspecified Status: Acute Assessment and Plan: Patient with GI symptoms. C-diff negative. Seen by GI and no further recommendations for now, Colchicine dc'd. Continues to tolerate meals fairly but with very poor appetite. Lead Pourer consulted. Carafate was stopped since she has been on for almost [address] scan 09/23 showing fecal impaction. Started Miralax and began to have BMs. Multip-le stools so Miralax stopped (last dose 09/27). Monitor stool output. Continue PPI. Antiemetics PRN. Continue supportive care. (13) Generalized muscle weakness: Code(s): M62.81 - Muscle weakness (generalized) Status: Acute Assessment and Plan: PT/OT eval and treatment with Ortho restrictions. Total CK normal. Fall precautions. Plan Possible pancreatitis - CT evidence of pancreatitis. Lipase 840. Patient without and symptoms to suggest this. Pancreatic edema from anasarca? GB absent and LFTs okay so don't believe choledocholithiasis. TG level 184. Lipase trending down. Continue to follow Anasarca continue Bumex Nephrology follow to addjust diuretics DVT prophylaxis - Eliquis on hold due to anemia , SCDs Code status - full Subjective Date/time seen: 09/29/24 11:57 Interval history: for kidney biopsy today Review of Systems Review of Systems: 12 systems were reviewed and are negative except for as per HPI. All systems reviewed & are unremarkable except as noted in HPI and below Exam Narrative: AF 98.2 174/81 85 20 100% ra Gen - NARD Chest - few basilar crackles in the flank. clear anteriorly. CV - RRR S1/S2 Abd - Soft, NT/ND, Positive BS Ext - diffuse edema but improved Psych - Nml mood but depressed affect Skin - Warm and dry. brusing noted behind right knee Objective Data Vital Signs Vital Signs: Vital Signs - 24 hr 09/28/24 12:00 09/28/24 16:00 09/28/24 20:00 Temperature 98.0 F 97.7 F 97.4 F L Pulse Rate 82 83 84 Respiratory Rate 18 18 14 Blood Pressure 174/81 H 145/80 H 127/70 Pulse Oximetry 99 100 100 09/28/24 23:40 09/29/24 04:00 09/29/24 08:44 Temperature 97.6 F 97.5 F L Pulse Rate 85 88 64 Respiratory Rate 12 14 Blood Pressure 150/73 H 153/91 H Pulse Oximetry 98 100 09/29/24 08:47 09/29/24 10:34 Temperature Pulse Rate 94 Respiratory Rate Blood Pressure 181/92 H 145/77 H Pulse Oximetry Intake/Output Intake/Output: Intake & Output 09/26/24 09/27/24 09/28/24 09/29/24 23:59 23:59 23:59 23:59 Intake Total 876 1180 900 600 Output Total 450 800 Balance 426 380 900 600 Meds/Results Medications: Active Medications Generic Name Dose Route Start Last Admin Trade Name Freq PRN Reason Stop Dose Admin Acetaminophen 650 mg 09/26/24 07:08 Acetaminophen 325 Mg Tablet PO Q6H PRN Mild Pain (1-3) or Fever Hydrocodone Bitart/Acetaminophen 1 tab 09/23/24 11:21 09/27/24 23:46 Hydrocodone/Acetaminophen (*Crx) 5-325 Mg Tablet PO 1 tab Q6H PRN Administration Pain Rated 4-6 Albuterol/Ipratropium 3 ml 09/24/24 07:54 Ipratropium 0.5 Mg/Albuterol Sulfate 2.5 Mg Ampul.Neb 3 Ml INHALATION Q6HRT PRN Shortness Of Breath Apixaban 2.5 mg 09/07/24 09:30 09/26/24 09:30 Apixaban 2.5 Mg Tablet PO 2.5 mg Q12HR NAHOMI Administration Artificial Tears 1 drop 09/07/24 09:35 09/28/24 21:03 Artificial Tears Ophth Soln 15 Ml Bottle RIGHT EYE 1 drop Q12HR NAHOMI Administration Brimonidine Tartrate 1 drop 09/07/24 09:30 09/28/24 21:03 Brimonidine Tartrate 0.2% Op Soln 5 Ml Btl EACH EYE 1 drop Q12HR NAHOMI Administration Bumetanide 1 mg 09/26/24 17:00 09/29/24 08:46 Bumetanide Inj 1 Mg/4 Ml Vial IV PUSH 1 mg BID NAHOMI Administration Dextrose 12.5 gm 09/07/24 09:15 Dextrose 50% 25 Gm/50 Ml Syringe IV PUSH PRN PRN Hypoglycemia Protocol Dorzolamide HCl 1 drop 09/07/24 09:30 09/28/24 21:03 Dorzolamide Hcl 2% Ophth Drops RIGHT EYE 1 drop Q12HR NAHOMI Administration Glucagon 1 mg 09/07/24 09:15 Glucagon For Inj 1 Mg Vial IM PRN PRN Hypoglycemia Protocol Glucose 15 gm 09/07/24 09:15 Glucose Oral Gel 15 Gm Of Glucse In 37.5 Gm Tube PO PRN PRN Hypoglycemia Protocol Guaifenesin 600 mg 09/24/24 09:00 09/29/24 08:44 Guaifenesin 12 Hr 600 Mg Tabcr PO 600 mg Q12HR NAHOMI Administration Guaifenesin/Dextromethorphan 5 ml 09/18/24 15:30 09/25/24 09:18 Guaifenesin/Dextromethorphan 10 Ml Udc PO 5 ml Q4H PRN Administration Cough Dextrose 1,000 mls @ 100 mls/hr 09/07/24 09:15 Dextrose 5% 1,000 Ml IVPB PRN PRN Hypoglycemia Protocol Ceftriaxone Sodium 1 gm in 50 mls @ 100 mls/hr 09/27/24 08:00 09/29/24 08:46 Rocephin 1 Gm/Ns 50 Ml IVPB 100 mls/hr Q24H NAHOMI Administration Albumin Human 100 mls @ 60 mls/hr 09/27/24 18:00 09/29/24 05:41 Albutein IVPB 60 mls/hr Q6HR NAHOMI Administration Sodium Chloride 250 mls @ 30 mls/hr 09/29/24 09:16 Normal Saline Iv IV CONT 09/29/24 17:35 .Q8H20M STA Insulin Aspart 3 - 6 units 09/28/24 17:00 09/29/24 08:42 Insulin Aspart (*Bkc) 100 Units/Ml SUB-Q Not Given TIDWM NAHOMI Protocol Insulin Glargine 25 units 09/24/24 21:00 09/28/24 21:06 Insulin Glargine (*Bkc) 100 Units/Ml SUB-Q 25 units HS NAHOMI Administration Linezolid 600 mg 09/28/24 14:05 09/29/24 08:44 Linezolid 600 Mg Tablet PO 600 mg Q12HR NAHOMI Administration Loratadine 5 mg 09/18/24 15:35 09/29/24 08:43 Loratadine 5 Mg Tablet PO 5 mg QAM [facility] Administration Metoprolol Succinate 100 mg 09/07/24 09:00 09/29/24 08:44 Metoprolol Succinate Ext Rel 100 Mg Tabcr PO 100 mg QAM [facility] Administration Morphine Sulfate 1 mg 09/26/24 07:10 Morphine Sulfate (*Crx) 2 Mg/Ml Inj IV PUSH Q4H PRN Pain Rated 7-10 Naloxone HCl 0.1 mg 09/07/24 08:19 Naloxone Hcl 0.4 Mg/Ml Vial IV PUSH Q2M PRN Opiate Reversal Nifedipine 30 mg 09/25/24 09:00 09/29/24 08:45 Nifedipine 30 Mg Tab.Er.24 PO 30 mg QAM [facility] Administration Ondansetron HCl 4 mg 09/07/24 09:15 09/13/24 14:52 Ondansetron Inj 4 Mg/2 Ml Vial IV PUSH 4 mg Q6H PRN Administration Nausea And Vomiting Pantoprazole Sodium 40 mg 09/27/24 09:00 09/29/24 08:44 Pantoprazole 40 Mg Tablet PO 40 mg Q12HR [facility] Administration Polysaccharide Iron Complex 150 mg 09/07/24 17:00 09/29/24 08:43 Polysaccharide Iron Complex 150 Mg Capsule PO 150 mg BIDWM [facility] Administration Rosuvastatin Calcium 5 mg 09/07/24 09:00 09/29/24 08:44 Rosuvastatin 5 Mg Tablet PO 5 mg QAM [facility] Administration Sodium Bicarbonate 1,300 mg 09/10/24 09:00 09/29/24 08:44 Sodium Bicarbonate Tab 650 Mg Tablet PO 1,300 mg TID [facility] Administration Timolol Maleate 1 drop 09/07/24 09:35 09/28/24 21:03 Timolol Maleate 0.5% Op Soln 5 Ml Bottle EACH EYE 1 drop Q12HR NAHOMI Administration Radiology Results: ITS Impressions Abdomen/Pelvis CT 09/07/24 05:37 Impression: Minimal bilateral pleural effusions. Horseshoe kidney. Elbow X-Ray 09/17/24 12:16 IMPRESSION: 1. No fracture. Knee X-Ray 09/17/24 12:17 IMPRESSION: 1. Minimally displaced extra articular fracture of the proximal left fibular diaphysis. Correlate for any associated ankle pain and consider additional radiographs of the more distal tibia and fibula as clinically indicated. Tibia/Fibula X-Ray 09/17/24 15:54 IMPRESSION: 1. Fractures of proximal and distal fibula. 2. Comminuted fracture of distal tibia. Foot X-Ray 09/21/24 17:53 IMPRESSION: 1. No fracture. Chest X-Ray 09/22/24 17:31 IMPRESSION: No acute cardiopulmonary process. Chest/Abdomen/Pelvis CT 09/23/24 22:42 IMPRESSION: Small left and trace right pleural effusions. Pancreatic head edema and peripancreatic inflammatory changes suggestive of acute interstitial pancreatitis. Correlate with pancreatic labs. Possible fecal impaction. Small volume ascites. Diffuse body wall edema. Ankle X-Ray 09/27/24 14:14 IMPRESSION: 1. Trimalleolar ankle fracture without change in alignment. Labs Labs: Laboratory Results - last 24 hr 09/23/24 09/28/24 09/28/24 20:42 16:53 18:47 WBC RBC Hgb 9.3 L Hct 27.9 L MCV MCH MCHC RDW Plt Count MPV Immature Gran % (Auto) Neut % (Auto) Lymph % (Auto) [place] % (Auto) Eos % (Auto) Baso % (Auto) Lymph # (Auto) [place] # (Auto) Eos # (Auto) Baso # (Auto) Abs Immat Gran (auto) Absolute Neuts (auto) Absolute Nucleated RBC Nucleated RBC % % Immature Plt Fraction Sodium Potassium Chloride Carbon Dioxide Anion Gap BUN Creatinine Estim Creat Clear Calc Estimated GFR Glucose POC Capillary Glucose 156 H Calcium Phosphorus Magnesium Total Bilirubin AST ALT Alkaline Phosphatase Total Protein Albumin 2.3 L Aomdn-1-Uolqncffu 0.4 H Dwsjm-9-Sfjmlvind 0.6 Abwz-8-Pamxateb 0.3 L Bidh-0-Klvxrkqo 0.2 Gamma Globulins 0.7 L PEP Interpretation See note Blood Type Antibody Screen Crossmatch 09/28/24 09/29/24 09/29/24 20:30 07:53 08:38 WBC 8.0 RBC 2.34 L Hgb 6.9 L* Hct 21.1 L MCV 90.2 MCH 29.5 MCHC 32.7 RDW 15.7 H Plt Count 86 L MPV 12.2 H Immature Gran % (Auto) 1.2 H Neut % (Auto) 82.8 H Lymph % (Auto) 11.0 L [place] % (Auto) 4.9 Eos % (Auto) 0.0 Baso % (Auto) 0.1 L Lymph # (Auto) 0.88 L [place] # (Auto) 0.4 Eos # (Auto) 0.0 Baso # (Auto) 0.0 Abs Immat Gran (auto) 0.10 H Absolute Neuts (auto) 6.6 Absolute Nucleated RBC 0.000 Nucleated RBC % 0.0 % Immature Plt Fraction 3.9 Sodium 139 Potassium 3.5 Chloride 105 Carbon Dioxide 25 Anion Gap 9 BUN 96 H Creatinine 2.33 H Estim Creat Clear Calc 29 Estimated GFR 21 L Glucose 104 POC Capillary Glucose 192 H 112 H Calcium 6.9 L Phosphorus 4.4 Magnesium 2.0 Total Bilirubin 1.3 AST 21 ALT 15 Alkaline Phosphatase 47 Total Protein 4.0 L Albumin 2.8 L Kmmaz-6-Pzrlijczi Qsrku-7-Yytiecoqx Swar-2-Bhmunpwo Tups-7-Weccqukb Gamma Globulins PEP Interpretation Blood Type Antibody Screen Crossmatch 09/29/24 10:06 WBC RBC Hgb Hct MCV MCH MCHC RDW Plt Count MPV Immature Gran % (Auto) Neut % (Auto) Lymph % (Auto) [place] % (Auto) Eos % (Auto) Baso % (Auto) Lymph # (Auto) [place] # (Auto) Eos # (Auto) Baso # (Auto) Abs Immat Gran (auto) Absolute Neuts (auto) Absolute Nucleated RBC Nucleated RBC % % Immature Plt Fraction Sodium Potassium Chloride Carbon Dioxide Anion Gap BUN Creatinine Estim Creat Clear Calc Estimated GFR Glucose POC Capillary Glucose Calcium Phosphorus Magnesium Total Bilirubin AST ALT Alkaline Phosphatase Total Protein Albumin [place]-6-Gvxnwyqth Dejze-4-Vhuggmnqq Kwjq-9-Rpqnqvwq Ooyr-2-Gokiwbpa Gamma Globulins PEP Interpretation Blood Type B Positive Antibody Screen Negative Crossmatch See Detail Quality VTE Prophylaxis VTE prophylaxis: pharmacologic ordered
[2024-09-29 12:13] LABS: Glucose Point of Care 84 mg/dl (65-105)
[2024-09-29 12:31] LABS: Iron 39 ug/dL (37-170)
[2024-09-29 12:40] LABS: Percent Iron Saturation 38 % (20-50)
[2024-09-29] MEDS: TIMOLOL MALEATE 0.5% OP SOLN 5 ML BOTTLE 1 DROP EACH EYE ×2 (12:44→21:15)
[2024-09-29] MEDS: ARTIFICIAL TEARS OPHTH SOLN 15 ML BOTTLE 1 DROP RIGHT EYE ×2 (12:44→21:15)
[2024-09-29] MEDS: DORZOLAMIDE HCL 2% OPHTH DROPS 1 DROP RIGHT EYE ×2 (12:44→21:15)
[2024-09-29] MEDS: BRIMONIDINE TARTRATE 0.2% OP SOLN 5 ML BTL 1 DROP EACH EYE ×2 (12:44→21:14)
--- NOTE | 2024-09-29 12:56 | PCOTNOTE ---
Patient has returned to the room from having testing done. Patient states she has been poked on all over, states she is feeling really bad, so tired. Patient states she is getting ready to get blood and refuses therapy this date.
[2024-09-29 13:48] LABS: Histone Antibody >5.0 U
[2024-09-29] MEDS: HYDROcodone/acetaminophen (*CRX) 5-325 MG TABLET 1 TAB PO (14:36)
--- NOTE | 2024-09-29 15:56 | PCPTNOTE ---
Patient declined PT to day. Patient states she had testing done today would like to rest. PT will continue to follow per plan of care.
[2024-09-29 16:37] LABS: Glucose Point of Care 144 mg/dl (65-105)
--- NOTE | 2024-09-29 16:59 | P.CONGI_ITS ---
Assessment and Plan Assessment and plan (1) Anemia requiring transfusions: Code(s): D64.9 - Anemia, unspecified Status: Acute Assessment and Plan: Looking carefully at her hemoglobin behavior since admission, it is noticed that at? it dropped to 3.8 g/dL in the absence of overt GI bleeding. To cause such a dramatic drop in hemoglobin from an acute GI bleeding should go with massive hematoquezia. ? Furthermore, her only determination of iron studies from 09/11 showed a normal iron saturation percentage.?Her black stools are clearly not melanotic but atributable to oral iron. Therefore, the patient does not have iron deficiency and her anemia along with thrombocytopenia are multifactorial, partially due to her renal failure but? underlying hemolysis or primary bone marrow failure needs to be entertained.? There is no indication for EGD at this moment, rather, an urgent hematology evaluation should be pursued. GI Consult Note Consult date/time: 09/29/24 16:59 HPI: Arely Ernandez is a 63 year old female with history of hypertension, CKD, DM, atrial flutter on Eliquis presents to the emergency department on 09/07. Patient states she has been experiencing diarrhea and vomiting everytime she eats anything. She is reporting diffuse abdominal pain. She was recently admitted on 08/22/2024 for the same presentation and worsening her pre existing chronic renal failure ([id number] kidney failure). She was discharged on 08/26/2024 after admission which revealed BUTCH on CKD, pericardial effusion on CT a with diagnosis of pericarditis. I saw her in consultation for diarrhea, that was thought to be atributable to colchicine. When this medication was stopped diarrhea resolved. The reason for consultation today is for severe anemia. The patient is passing black stools, however she has been taking oral iron. There is no recent hypotension. She is currently being considered for a kidney biopsy to establish the cause of her acute exacerbation of renal failure. she will undergo surgical repair of a left ankle fracture tomorrow. Review of Systems 2 Review of Systems: All systems reviewed & are unremarkable except as noted in HPI and below PMFSH Past Medical History Medical History (Updated 09/28/24 @ 15:07 by Donald Lord MD) Fracture of ankle, trimalleolar, left, closed Swelling of right foot Fibula fracture Diabetes mellitus Chronic renal disease Anxiety Surgical History Surgical History History of appendectomy Family History Family History Father Hypertension Diabetes mellitus Lymphoma Grandparent Diabetes mellitus Grandparent Diabetes mellitus Mother Pacemaker Social History Social History Smoking status: Former smoker Tobacco type: cigarettes Alcohol intake: former Substance use: former Substance use type: does not use Do You Feel Safe in your Home?: Yes Lack of Transportation: No Lack of Food: Never True Current Housing: I Have Housing Concerned About Future Housing: No Difficulty Paying Gas/Electric Bills: No Difficulty Paying for Meds: No Currently Unemployed: No Education: High School Diploma/GED Difficulty w/ Childcare or Family Care: No Spiritual care concerns: No Meds Home Medications and Allergies Home Medications ?Medication ?Instructions ?Recorded ?Confirmed ?Type amlodipine 5 mg tablet 5 mg PO QAM 08/22/24 09/07/24 History brimonidine 0.2 % eye drops 1 drp EACH EYE BID 08/22/24 09/07/24 History cholecalciferol (vitamin D3) 50 50 mcg PO QAM 08/22/24 09/07/24 History mcg (2,000 unit) tablet (D3 DOTS) dorzolamide 2 % eye drops 1 drp RIGHT EYE BID 08/22/24 09/07/24 History ferrous sulfate 325 mg (65 mg 325 mg PO QAM 08/22/24 09/07/24 History iron) tablet (FeroSul) hydralazine 50 mg tablet 50 mg PO TID 08/22/24 09/07/24 History metoprolol succinate 100 mg 100 mg PO QAM 08/22/24 09/07/24 History tablet,extended release 24 hr polyvinyl alcohol-povidone 0.5 1 drp RIGHT EYE BID 08/22/24 09/07/24 History %-0.6 % eye drops (Artificial Tears (polyvinyl alcohol/povidone)) rosuvastatin 5 mg tablet 5 mg PO QAM 08/22/24 09/07/24 History sodium bicarbonate 650 mg tablet 650 mg PO TID 08/22/24 09/07/24 History timolol maleate 0.5 % eye drops 1 drp EACH EYE BID 08/22/24 09/07/24 History apixaban 2.5 mg tablet (Eliquis) 2.5 mg PO BID #60 tabs 08/26/24 09/07/24 Rx blood-glucose meter,continuous #1 ea 08/26/24 09/10/24 Rx (Dexcom G6 Aluminum Shingle Roofer) blood-glucose sensor (Dexcom G6 #3 ea 08/26/24 09/10/24 Rx Sensor device) blood-glucose transmitter (Dexcom #1 ea 08/26/24 09/10/24 Rx G6 Transmitter device) colchicine 0.6 mg tablet (Colcrys) 0.6 mg PO Q12HR #120 tabs 08/26/24 09/07/24 Rx ibuprofen 600 mg tablet 600 mg PO TID #30 tabs 08/26/24 09/07/24 Rx Allergies Allergy/AdvReac Type Severity Reaction Status Date / Time Penicillins Allergy Unknown Unknown Verified 09/27/24 08:54 coconut Allergy Hives Verified 09/07/24 06:30 Vital Signs Vital Signs - 24 hr 09/28/24 20:00 09/28/24 23:40 09/29/24 04:00 Temperature 97.4 F L 97.6 F 97.5 F L Pulse Rate 84 85 88 Respiratory Rate 14 12 14 Blood Pressure 127/70 150/73 H 153/91 H Pulse Oximetry 100 98 100 Oxygen Delivery 09/29/24 08:00 09/29/24 08:44 09/29/24 08:47 Temperature Pulse Rate 64 Respiratory Rate Blood Pressure 181/92 H Pulse Oximetry Oxygen Delivery Room Air 09/29/24 10:34 09/29/24 14:18 09/29/24 14:34 Temperature 96.3 F L Pulse Rate 94 68 57 L Respiratory Rate 16 Blood Pressure 145/77 H 139/72 128/58 L Pulse Oximetry 100 Oxygen Delivery 09/29/24 14:51 09/29/24 15:43 Temperature 96.3 F L 96.1 F L Pulse Rate 56 L 59 L Respiratory Rate 17 18 Blood Pressure 119/54 L 109/51 L Pulse Oximetry 99 100 Oxygen Delivery Exam 2 Narrative: AF 98.2 174/81 85 20 100% ra Gen - not easily arousabe. Chest - few basilar crackles in the flank. clear anteriorly. CV - RRR S1/S2 Abd - Soft, NT/ND, Positive BS - dark black (charcoal color) liquid stool noticed in the diaper. typical for iron and not melena. Ext - 4+ edema pretibial and pedal - anasarca Psych - Nml mood but depressed affect Skin - Warm and dry. brusing noted behind right knee Results Labs 09/29/24 08:38 09/29/24 08:38 Labs: Short CBC 09/28/24 09/29/24 Range/Units 18:47 08:38 WBC 8.0 (4.5-10.0) K/mm3 Hgb 9.3 L 6.9 L* (12.0-15.0) g/dL Hct 27.9 L 21.1 L (37.0-47.0) % Plt Count 86 L (150-375) k/mm3 BMP 09/29/24 08:38 Sodium 139 Potassium 3.5 Chloride 105 Carbon Dioxide 25 BUN 96 H Creatinine 2.33 H Glucose 104 Calcium 6.9 L Liver Function 09/23/24 09/29/24 Range/Units 20:42 08:38 Total Bilirubin 1.3 (0.2-1.3) mg/dL AST 21 (14-36) U/L ALT 15 (6-35) U/L Alkaline Phosphatase 47 (38-126) U/L Albumin 2.3 L 2.8 L (3.8-4.8) g/dL
--- NOTE | 2024-09-29 19:08 | P.CONONC_ITS ---
Assessment and Plan Assessment and plan (1) Anemia: Code(s): D64.9 - Anemia, unspecified Status: Acute Assessment and Plan: Patient has a history of chronic kidney disease. Labs noted that showed normal iron studies. Ferritin is elevated. Serum immunofixation showed no clonal protein. There is no obvious bleeding. LDH is slightly elevated. PT and PTT elevated. Likely anemia secondary to chronic kidney disease with further worsening due to infection/UTI and inflammation I will also check markers for hemolytic anemia. Bone marrow biopsy would not be needed at this time. I will order soluble transferrin receptor, vitamin B12 and methylmalonic acid level, direct Felicity test, haptoglobin and reticulocyte count. I will start her on Procrit [id number] units on a biweekly he will follow-up in the office. (2) Thrombocytopenia: Code(s): D69.6 - Thrombocytopenia, unspecified Status: Acute Assessment and Plan: This is likely secondary to low-grade DIC with elevated PT and PTT. Other etiology include infection with UTI and sepsis. Will also check for platelet antibodies. CT abdomen showed normal renal liver. No need for platelet transfusion at this time unless needed for surgery. HPI Data of Consult Date/Time: 09/29/24 19:08 Requesting Physician: PIEDAD Garcias Primary Care Provider: Jonatan Worley MD Consult Narrative Narrative: Arely Ernandez is a 63 year old female chronic kidney disease, diabetes and anxiety came into the hospital with nausea vomiting and diarrhea on September 07. She was recently discharged from the hospital in July when she was admitted with chest discomfort. Patient had a fall on September 17 while she was in the hospital. She was found to have minimally displaced fracture of the left fibular diaphysis. Her hemoglobin dropped to 3.8 in the absence of any GI bleed. Patient is scheduled to have ORIF of left ankle fracture tomorrow. Labs from today showed hemoglobin of 6.9. Creatinine 2.3. Iron 39, iron saturation 38% with elevated ferritin 647. LDH was elevated at 249. Serum immunofixation came back normal. Review of Systems 2 Review of Systems: Patient is quite sedated and not able to provide review of system PMFSH Past Medical History Medical History (Updated 09/29/24 @ 19:14 by Mandeep Sandy MD) Thrombocytopenia Fracture of ankle, trimalleolar, left, closed Swelling of right foot Fibula fracture Diabetes mellitus Chronic renal disease Anxiety Surgical History Surgical History History of appendectomy Family History Family History Father Hypertension Diabetes mellitus Lymphoma Grandparent Diabetes mellitus Grandparent Diabetes mellitus Mother Pacemaker Social History Social History Smoking status: Former smoker Tobacco type: cigarettes Alcohol intake: former Substance use: former Substance use type: does not use Do You Feel Safe in your Home?: Yes Lack of Transportation: No Lack of Food: Never True Current Housing: I Have Housing Concerned About Future Housing: No Difficulty Paying Gas/Electric Bills: No Difficulty Paying for Meds: No Currently Unemployed: No Education: High School Diploma/GED Difficulty w/ Childcare or Family Care: No Spiritual care concerns: No Meds Home Medications and Allergies Home Medications ?Medication ?Instructions ?Recorded ?Confirmed ?Type amlodipine 5 mg tablet 5 mg PO QAM 08/22/24 09/07/24 History brimonidine 0.2 % eye drops 1 drp EACH EYE BID 08/22/24 09/07/24 History cholecalciferol (vitamin D3) 50 50 mcg PO QAM 08/22/24 09/07/24 History mcg (2,000 unit) tablet (D3 DOTS) dorzolamide 2 % eye drops 1 drp RIGHT EYE BID 08/22/24 09/07/24 History ferrous sulfate 325 mg (65 mg 325 mg PO QAM 08/22/24 09/07/24 History iron) tablet (FeroSul) hydralazine 50 mg tablet 50 mg PO TID 08/22/24 09/07/24 History metoprolol succinate 100 mg 100 mg PO QAM 08/22/24 09/07/24 History tablet,extended release 24 hr polyvinyl alcohol-povidone 0.5 1 drp RIGHT EYE BID 08/22/24 09/07/24 History %-0.6 % eye drops (Artificial Tears (polyvinyl alcohol/povidone)) rosuvastatin 5 mg tablet 5 mg PO QAM 08/22/24 09/07/24 History sodium bicarbonate 650 mg tablet 650 mg PO TID 08/22/24 09/07/24 History timolol maleate 0.5 % eye drops 1 drp EACH EYE BID 08/22/24 09/07/24 History apixaban 2.5 mg tablet (Eliquis) 2.5 mg PO BID #60 tabs 08/26/24 09/07/24 Rx blood-glucose meter,continuous #1 ea 08/26/24 09/10/24 Rx (Dexcom G6 Stone Belt Sander) blood-glucose sensor (Dexcom G6 #3 ea 08/26/24 09/10/24 Rx Sensor device) blood-glucose transmitter (Dexcom #1 ea 08/26/24 09/10/24 Rx G6 Transmitter device) colchicine 0.6 mg tablet (Colcrys) 0.6 mg PO Q12HR #120 tabs 08/26/24 09/07/24 Rx ibuprofen 600 mg tablet 600 mg PO TID #30 tabs 08/26/24 09/07/24 Rx Allergies Allergy/AdvReac Type Severity Reaction Status Date / Time Penicillins Allergy Unknown Unknown Verified 09/27/24 08:54 coconut Allergy Hives Verified 09/07/24 06:30 Vital Signs Vital Signs - 24 hr 09/28/24 20:00 09/28/24 23:40 09/29/24 04:00 Temperature 36.3 C L 36.4 C 36.4 C L Pulse Rate 84 85 88 Respiratory Rate 14 12 14 Blood Pressure 127/70 150/73 H 153/91 H Pulse Oximetry 100 98 100 Oxygen Delivery 09/29/24 08:00 09/29/24 08:44 09/29/24 08:47 Temperature Pulse Rate 64 Respiratory Rate Blood Pressure 181/92 H Pulse Oximetry Oxygen Delivery Room Air 09/29/24 10:34 09/29/24 14:18 09/29/24 14:34 Temperature 35.7 C L Pulse Rate 94 68 57 L Respiratory Rate 16 Blood Pressure 145/77 H 139/72 128/58 L Pulse Oximetry 100 Oxygen Delivery 09/29/24 14:51 09/29/24 15:43 09/29/24 18:48 Temperature 35.7 C L 35.6 C L 35.8 C L Pulse Rate 56 L 59 L 100 Respiratory Rate 17 18 14 Blood Pressure 119/54 L 109/51 L 100/48 L Pulse Oximetry 99 100 100 Oxygen Delivery Exam 2 Narrative: Lungs are clear to auscultation bilaterally Cardiovascular regular rate rhythm no murmur Abdomen soft nontender nondistended Extremities left foot swelling with bruising noted Results Labs 09/29/24 08:38 09/29/24 08:38 Labs: Short CBC 09/28/24 09/29/24 Range/Units 18:47 08:38 WBC 8.0 (4.5-10.0) K/mm3 Hgb 9.3 L 6.9 L* (12.0-15.0) g/dL Hct 27.9 L 21.1 L (37.0-47.0) % Plt Count 86 L (150-375) k/mm3 BMP 09/29/24 08:38 Sodium 139 Potassium 3.5 Chloride 105 Carbon Dioxide 25 BUN 96 H Creatinine 2.33 H Glucose 104 Calcium 6.9 L Liver Function 09/23/24 09/29/24 Range/Units 20:42 08:38 Total Bilirubin 1.3 (0.2-1.3) mg/dL AST 21 (14-36) U/L ALT 15 (6-35) U/L Alkaline Phosphatase 47 (38-126) U/L Albumin 2.3 L 2.8 L (3.8-4.8) g/dL
--- NOTE | 2024-09-29 19:30 | PC.NURSE ---
on 09/29/2024 Pt had hgb of 6.9, provider was notified and 1 unit blood was ordered. Pt had renal biopsy ordered pending blood pressure and lab. Ultrasound and this RN communicated multiple times about pt abnormal labs and vital signs. Blood pressure was brought down to meet parameters and pt was cleared for procedure. Pt was taken down to ultrasound and upon return pt blood was started. Pt tolerated well. Pt family came to bedside in the evening and this RN asked if pt had been lethargic like this in the evening and stated she had been like this the day before as well. Pt continued to be monitored. shift supervisor rn RN was made aware of pt status.
[2024-09-29 19:57] LABS: Cryoglobulin, QL Negative (Negative)
[2024-09-29 20:47] LABS: Immature Reticulocyte Fraction 6.4 % (3.0-15.9); Reticulocyte Percent 2.03 % (0.7-4.3); Reticulocytes Absolute 0.04 10^6/uL (0.02-0.10)
[2024-09-29 21:07] LABS: Glucose Point of Care 138 mg/dl (65-105)
[2024-09-29] MEDS: EPOETIN ALFA 20,000 UNITS/ML VIAL 20000 UNITS SUB-Q (21:13)
[2024-09-29 22:56] LABS: IFOB Positive Control Positive; Immunochemical Fecal Occult Bl Positive (N)
[2024-09-30] VITALS (35 sets, daily range): BP systolic 82–167; BP diastolic 43–112; PULSE 69–90; RESP 14–100; TEMP 35.1–37.6; O2SAT 96–100
[2024-09-30] MEDS: ALBUMIN HUMAN 25% 25 GM/100 ML 100 ML IVPB ×2 (00:05→05:46)
[2024-09-30] MEDS: HYDROcodone/acetaminophen (*CRX) 5-325 MG TABLET 1 TAB PO (00:10)
[2024-09-30 07:42] LABS: Glucose Point of Care 150 mg/dl (65-105)
[2024-09-30 07:53] LABS: Basophils Percent Auto 0.1 % (0.2-1.2); Immature Granulocyte Percent A 0.9 % (0-0.5); Immature Platelet Fraction Pct 9.2 % (0.9-11.2); Lymphocytes Absolute Auto 1.26 K/mm3 (0.9-3.2); Lymphocytes Percent Auto 11.1 % (18.3-44.2); Mean Corpuscular HGB Conc 32.5 g/dl (32-36); Mean Corpuscular Hemoglobin 29.3 pg (26-34); Mean Corpuscular Volume 90.1 fl (80-100); Mean Platelet Volume 13.7 fl (7.4-10.4); Monocytes Absolute Auto 0.5 K/mm3 (0.1-0.6); Monocytes Percent Auto 4.3 % (2.6-8.5); Neutrophils Absolute Auto 9.5 K/mm3 (1.3-6.7); Neutrophils Percent Auto 83.6 % (45.5-73.1); Platelet Count Result 74 k/mm3 (150-375); Red Blood Count 1.81 M/mm3 (4.2-5.4); Red Cell Distribution Width 16.6 % (11.5-14.5); White Blood Count 11.4 K/mm3 (4.5-10.0)
[2024-09-30 08:12] LABS: Alanine Aminotransferase 105 U/L (6-35); Albumin Level 2.6 g/dL (3.5-5.1); Alkaline Phosphatase 44 U/L (38-126); Anion Gap 15 mmol/L (4-12); Aspartate Amino Transferase 188 U/L (14-36); Bilirubin,Total 1.6 mg/dL (0.2-1.3); Blood Urea Nitrogen 96 mg/dL (7-17); Calcium 6.7 mg/dL (8.4-10.2); Carbon Dioxide 18 mmol/L (22-30); Chloride 106 mmol/L (98-107); Estimated CRCL calculation 22 ml/min; Estimated Glomerular Filt Rate 16; Glucose 138 mg/dL (65-110); Sodium 139 mmol/L (137-145)
[2024-09-30 08:20] LABS: Hemoglobin 5.3 g/dL (12.0-15.0)
[2024-09-30 08:21] LABS: Hematocrit 16.3 % (37.0-47.0)
[2024-09-30 09:35] LABS: Alveolar/Arterial O2 Gradient 36.5 mmHg; Base Excess ABG -8.1 mEq/l (+/-2.0); Carboxyhemoglobin 1.6 % THb (0-2.0); Fractional Inspired Oxygen 28 %; HCO3 ABG 15.7 mEq/l (22.0-26.0); Oxygen Saturation ABG 98.8 % (95.0-100.0); Oxyhemoglobin 96.1 % THb (90.0-100.0); PCO2 ABG 24.3 mmHg (35.0-45.0); PO2 ABG 134.5 mmHg (80.0-100.0); Reduced Hemoglobin 2.3 %THb (0-5.0); pH ABG 7.429 (7.350-7.450)
[2024-09-30 09:37] LABS: Device NASAL CANNULA; Modified Allen's Test Pass; Site Drawn RIGHT RADIAL; Total Hemoglobin 4.9 g/dL (12.0-18.0)
[2024-09-30 10:06] LABS: Anisocytosis 1+; Platelet Estimate Decreased (Adequate); Schistocytes Rare
[2024-09-30 10:07] LABS: Hypochromasia 2+
--- NOTE | 2024-09-30 10:21 | PC.NURSE ---
0940-Pt. received from 312. Bedside shift report received from Jolene Parson RN. Dr. meza at bedside in 312 to evaluate patient and decision made to transfer to ICU. Pt. received CT scan and then transferred to ICU 2.
--- NOTE | 2024-09-30 10:32 | PM.PNORT ---
Progress Note: A&P Assessment and Plan (1) Fracture of ankle, trimalleolar, left, closed: Qualifiers: Encounter type: initial encounter Qualified Code(s): S82.852A - Displaced trimalleolar fracture of left lower leg, initial encounter for closed fracture Code(s): S82.852A - Displaced trimalleolar fracture of left lower leg, initial encounter for closed fracture Status: Acute Assessment and Plan: Tentatively scheduled for operative treatment today left ankle fracture. New lab results today show anemia and thrombocytopenia. Patient not stable or cleared for surgery. Subsequently has declined in medical condition. Transferred to the intensive care unit. Will continue to follow and await stabilization and medical optimization. Subjective Subjective Date/Time Seen: 09/30/24 10:32 Objective Data Vital Signs Vital Signs: Vital Signs - 24 hr 09/29/24 10:34 09/29/24 14:18 09/29/24 14:34 Temperature 96.3 F L Pulse Rate 94 68 57 L Respiratory Rate 16 Blood Pressure 145/77 H 139/72 128/58 L Pulse Oximetry 100 Oxygen Delivery Fraction of Inspired Oxygen 09/29/24 14:51 09/29/24 15:43 09/29/24 17:50 Temperature 96.3 F L 96.1 F L 96.4 F L Pulse Rate 56 L 59 L 100 Respiratory Rate 17 18 14 Blood Pressure 119/54 L 109/51 L 100/48 L Pulse Oximetry 99 100 11 L Oxygen Delivery Fraction of Inspired Oxygen 09/29/24 18:48 09/29/24 20:00 09/29/24 20:00 Temperature 96.4 F L 98.0 F Pulse Rate 100 70 Respiratory Rate 14 18 Blood Pressure 100/48 L 93/54 L Pulse Oximetry 100 100 Oxygen Delivery Room Air Fraction of Inspired Oxygen 21 09/30/24 00:00 09/30/24 08:00 09/30/24 09:45 Temperature 97.5 F L 96.5 F L 95.1 F L Pulse Rate 69 71 72 Respiratory Rate 18 14 24 H Blood Pressure 100/43 L 100/54 L 91/46 L Pulse Oximetry 96 100 100 Oxygen Delivery Fraction of Inspired Oxygen Intake/Output Intake/Output: Intake & Output 09/27/24 09/28/24 09/29/24 09/30/24 23:59 23:59 23:59 23:59 Intake Total 1726 666 3256 100 Output Total 800 Balance 906 145 9713 100 Meds/Results Medications: Active Medications Generic Name Dose Route Start Last Admin Trade Name Freq PRN Reason Stop Dose Admin Acetaminophen 650 mg 09/26/24 07:08 Acetaminophen 325 Mg Tablet PO Q6H PRN Mild Pain (1-3) or Fever Albuterol/Ipratropium 3 ml 09/24/24 07:54 Ipratropium 0.5 Mg/Albuterol Sulfate 2.5 Mg Ampul.Neb 3 Ml INHALATION Q6HRT PRN Shortness Of Breath Apixaban 2.5 mg 09/07/24 09:30 09/26/24 09:30 Apixaban 2.5 Mg Tablet PO 2.5 mg Q12HR NAHOMI Administration Artificial Tears 1 drop 09/07/24 09:35 09/29/24 21:15 Artificial Tears Ophth Soln 15 Ml Bottle RIGHT EYE 1 drop Q12HR NAHOMI Administration Brimonidine Tartrate 1 drop 09/07/24 09:30 09/29/24 21:14 Brimonidine Tartrate 0.2% Op Soln 5 Ml Btl EACH EYE 1 drop Q12HR NAHOMI Administration Bumetanide 1 mg 09/26/24 17:00 09/29/24 17:36 Bumetanide Inj 1 Mg/4 Ml Vial IV PUSH 1 mg BID NAHOMI Administration Dextrose 12.5 gm 09/07/24 09:15 Dextrose 50% 25 Gm/50 Ml Syringe IV PUSH PRN PRN Hypoglycemia Protocol Dorzolamide HCl 1 drop 09/07/24 09:30 09/29/24 21:15 Dorzolamide Hcl 2% Ophth Drops RIGHT EYE 1 drop Q12HR NAHOMI Administration Glucagon 1 mg 09/07/24 09:15 Glucagon For Inj 1 Mg Vial IM PRN PRN Hypoglycemia Protocol Glucose 15 gm 09/07/24 09:15 Glucose Oral Gel 15 Gm Of Glucse In 37.5 Gm Tube PO PRN PRN Hypoglycemia Protocol Guaifenesin 600 mg 09/24/24 09:00 09/29/24 21:13 Guaifenesin 12 Hr 600 Mg Tabcr PO 600 mg Q12HR NAHOMI Administration Guaifenesin/Dextromethorphan 5 ml 09/18/24 15:30 09/25/24 09:18 Guaifenesin/Dextromethorphan 10 Ml Udc PO 5 ml Q4H PRN Administration Cough Dextrose 1,000 mls @ 100 mls/hr 09/07/24 09:15 Dextrose 5% 1,000 Ml IVPB PRN PRN Hypoglycemia Protocol Albumin Human 100 mls @ 60 mls/hr 09/27/24 18:00 09/30/24 05:46 Albutein IVPB 60 mls/hr Q6HR NAHOMI Administration Sodium Chloride 250 mls @ 30 mls/hr 09/30/24 08:27 Normal Saline Iv IV CONT 09/30/24 16:46 .Q8H20M STA Sodium Chloride 250 mls @ 30 mls/hr 09/30/24 09:50 Normal Saline Iv IV CONT 09/30/24 18:09 .Q8H20M STA Linezolid 600 mg in 300 mls @ 300 mls/hr 09/30/24 10:20 Zyvox IVPB 10/04/24 10:19 Q12HR NAHOMI Ceftriaxone Sodium 2 gm in 100 mls @ 200 mls/hr 09/30/24 12:00 Rocephin 2 Gm/Ns 100 Ml IVPB Q24H NAHOMI Insulin Aspart 3 - 6 units 09/30/24 12:00 Insulin Aspart (*Bkc) 100 Units/Ml SUB-Q Q6HR [facility] Protocol Insulin Glargine 25 units 09/24/24 21:00 09/29/24 21:18 Insulin Glargine (*Bkc) 100 Units/Ml SUB-Q Not Given HS NAHOMI Metoprolol Succinate 100 mg 09/07/24 09:00 09/29/24 08:44 Metoprolol Succinate Ext Rel 100 Mg Tabcr PO 100 mg QAM NAHOMI Administration Morphine Sulfate 1 mg 09/26/24 07:10 Morphine Sulfate (*Crx) 2 Mg/Ml Inj IV PUSH Q4H PRN Pain Rated 7-10 Naloxone HCl 0.1 mg 09/07/24 08:19 Naloxone Hcl 0.4 Mg/Ml Vial IV PUSH Q2M PRN Opiate Reversal Nifedipine 30 mg 09/25/24 09:00 09/29/24 08:45 Nifedipine 30 Mg Tab.Er.24 PO 30 mg QAM NAHOMI Administration Ondansetron HCl 4 mg 09/07/24 09:15 09/13/24 14:52 Ondansetron Inj 4 Mg/2 Ml Vial IV PUSH 4 mg Q6H PRN Administration Nausea And Vomiting Pantoprazole Sodium 40 mg 09/27/24 09:00 09/29/24 21:13 Pantoprazole 40 Mg Tablet PO 40 mg Q12HR NAHOMI Administration Polysaccharide Iron Complex 150 mg 09/07/24 17:00 09/29/24 17:36 Polysaccharide Iron Complex 150 Mg Capsule PO 150 mg BIDWM NAHOMI Administration Rosuvastatin Calcium 5 mg 09/07/24 09:00 09/29/24 08:44 Rosuvastatin 5 Mg Tablet PO 5 mg QAM NAHOMI Administration Sodium Bicarbonate 1,300 mg 09/10/24 09:00 09/29/24 17:37 Sodium Bicarbonate Tab 650 Mg Tablet PO 1,300 mg TID NAHOMI Administration Timolol Maleate 1 drop 09/07/24 09:35 09/29/24 21:15 Timolol Maleate 0.5% Op Soln 5 Ml Bottle EACH EYE 1 drop Q12HR NAHOMI Administration Radiology Results: ITS Impressions Abdomen/Pelvis CT 09/07/24 05:37 Impression: Minimal bilateral pleural effusions. Horseshoe kidney. Elbow X-Ray 09/17/24 12:16 IMPRESSION: 1. No fracture. Knee X-Ray 09/17/24 12:17 IMPRESSION: 1. Minimally displaced extra articular fracture of the proximal left fibular diaphysis. Correlate for any associated ankle pain and consider additional radiographs of the more distal tibia and fibula as clinically indicated. Tibia/Fibula X-Ray 09/17/24 15:54 IMPRESSION: 1. Fractures of proximal and distal fibula. 2. Comminuted fracture of distal tibia. Foot X-Ray 09/21/24 17:53 IMPRESSION: 1. No fracture. Ankle X-Ray 09/27/24 14:14 IMPRESSION: 1. Trimalleolar ankle fracture without change in alignment. Renal Biopsy Ultrasound 09/29/24 12:28 IMPRESSION: 1. Ultrasound-guided random core needle biopsy of the left moiety of a horseshoe kidney. Chest X-Ray 09/30/24 09:25 IMPRESSION: 1. Small pleural effusions. 2. Mild atelectasis at the lung bases. Head CT 09/30/24 09:38 Impression: No significant abnormality seen. Chest/Abdomen/Pelvis CT 09/30/24 09:51 IMPRESSION: 1. Acute subcapsular hematoma involving the horseshoe kidney with acute hematoma extending into the retroperitoneal fat. 2. Worsened moderate volume of ascites. 3. Worsened small pleural effusions. ADDENDUM: 09/30/24 1010 I discussed these findings with Dr. Fuller. Labs Labs: Laboratory Results - last 24 hr 09/23/24 09/29/24 09/29/24 20:41 08:38 10:06 WBC RBC Hgb Hct MCV MCH MCHC RDW Plt Count MPV Immature Gran % (Auto) Neut % (Auto) Lymph % (Auto) Arthur % (Auto) Eos % (Auto) Baso % (Auto) Lymph # (Auto) Arthur # (Auto) Eos # (Auto) Baso # (Auto) Abs Immat Gran (auto) Absolute Neuts (auto) Absolute Nucleated RBC Nucleated RBC % Platelet Estimate % Immature Plt Fraction Hypochromasia Anisocytosis Schistocytes Absolute Retic Percent Retic Immature Retic Fraction Retic Hgb Content Puncture Site ABG pH ABG pCO2 ABG pO2 ABG PO2/FiO2 Ratio ABG HCO3 ABG O2 Saturation ABG O2 Content ABG Base Excess A-a Gradient Oxyhemoglobin Carboxyhemoglobin Methemoglobin Reduced Hemoglobin Total Hemoglobin O2 Delivery Device O2 Liters/Min FiO2 Sodium Potassium Chloride Carbon Dioxide Anion Gap BUN Creatinine Estim Creat Clear Calc Estimated GFR Glucose POC Capillary Glucose Lactic Acid Calcium Magnesium Iron 39 TIBC 104 L % Saturation 38 Ferritin 647.00 H Total Bilirubin AST ALT Alkaline Phosphatase Total Protein Albumin Stl Occult Blood (IFOB) Cryoglobulin Qualit Negative Histone Antibodies >5.0 H Blood Type B Positive Antibody Screen Negative MENDOZA, IgG Interpret MENDOZA, Complement Interp Crossmatch See Detail 09/29/24 09/29/24 09/29/24 12:10 16:34 20:37 WBC RBC Hgb Hct MCV MCH MCHC RDW Plt Count MPV Immature Gran % (Auto) Neut % (Auto) Lymph % (Auto) Arthur % (Auto) Eos % (Auto) Baso % (Auto) Lymph # (Auto) Arthur # (Auto) Eos # (Auto) Baso # (Auto) Abs Immat Gran (auto) Absolute Neuts (auto) Absolute Nucleated RBC Nucleated RBC % Platelet Estimate % Immature Plt Fraction Hypochromasia Anisocytosis Schistocytes Absolute Retic 0.04 Percent Retic 2.03 Immature Retic Fraction 6.4 Retic Hgb Content 30.0 Puncture Site ABG pH ABG pCO2 ABG pO2 ABG PO2/FiO2 Ratio ABG HCO3 ABG O2 Saturation ABG O2 Content ABG Base Excess A-a Gradient Oxyhemoglobin Carboxyhemoglobin Methemoglobin Reduced Hemoglobin Total Hemoglobin O2 Delivery Device O2 Liters/Min FiO2 Sodium Potassium Chloride Carbon Dioxide Anion Gap BUN Creatinine Estim Creat Clear Calc Estimated GFR Glucose POC Capillary Glucose 84 144 H Lactic Acid Calcium Magnesium Iron TIBC % Saturation Ferritin Total Bilirubin AST ALT Alkaline Phosphatase Total Protein Albumin Stl Occult Blood (IFOB) Cryoglobulin Qualit Histone Antibodies Blood Type Antibody Screen MENDOZA, IgG Interpret Neg MENDOZA, Complement Interp Negative Crossmatch 09/29/24 09/29/24 09/30/24 21:04 22:43 07:31 WBC 11.4 H RBC 1.81 L Hgb 5.3 L* Hct 16.3 L* MCV 90.1 MCH 29.3 MCHC 32.5 RDW 16.6 H Plt Count 74 L MPV 13.7 H Immature Gran % (Auto) 0.9 H Neut % (Auto) 83.6 H Lymph % (Auto) 11.1 L Arthur % (Auto) 4.3 Eos % (Auto) 0.0 Baso % (Auto) 0.1 L Lymph # (Auto) 1.26 Arthur # (Auto) 0.5 Eos # (Auto) 0.0 Baso # (Auto) 0.0 Abs Immat Gran (auto) 0.10 H Absolute Neuts (auto) 9.5 H Absolute Nucleated RBC 0.000 Nucleated RBC % 0.0 Platelet Estimate Decreased % Immature Plt Fraction 9.2 Hypochromasia 2+ Anisocytosis 1+ Schistocytes Rare Absolute Retic Percent Retic Immature Retic Fraction Retic Hgb Content Puncture Site ABG pH ABG pCO2 ABG pO2 ABG PO2/FiO2 Ratio ABG HCO3 ABG O2 Saturation ABG O2 Content ABG Base Excess A-a Gradient Oxyhemoglobin Carboxyhemoglobin Methemoglobin Reduced Hemoglobin Total Hemoglobin O2 Delivery Device O2 Liters/Min FiO2 Sodium 139 Potassium 4.0 Chloride 106 Carbon Dioxide 18 L Anion Gap 15 H BUN 96 H Creatinine 3.00 H Estim Creat Clear Calc 22 Estimated GFR 16 L Glucose 138 H POC Capillary Glucose 138 H Lactic Acid 6.0 H* Calcium 6.7 L Magnesium 2.0 Iron TIBC % Saturation Ferritin Total Bilirubin 1.6 H AST 188 H ALT 105 H Alkaline Phosphatase 44 Total Protein 4.0 L Albumin 2.6 L Stl Occult Blood (IFOB) Positive H D Cryoglobulin Qualit Histone Antibodies Blood Type Antibody Screen MENDOZA, IgG Interpret MENDOZA, Complement Interp Crossmatch 09/30/24 09/30/24 07:40 09:23 WBC RBC Hgb Hct MCV MCH MCHC RDW Plt Count MPV Immature Gran % (Auto) Neut % (Auto) Lymph % (Auto) Arthur % (Auto) Eos % (Auto) Baso % (Auto) Lymph # (Auto) Arthur # (Auto) Eos # (Auto) Baso # (Auto) Abs Immat Gran (auto) Absolute Neuts (auto) Absolute Nucleated RBC Nucleated RBC % Platelet Estimate % Immature Plt Fraction Hypochromasia Anisocytosis Schistocytes Absolute Retic Percent Retic Immature Retic Fraction Retic Hgb Content Puncture Site Right radial ABG pH 7.429 ABG pCO2 24.3 L ABG pO2 134.5 H ABG PO2/FiO2 Ratio 4.80 ABG HCO3 15.7 L ABG O2 Saturation 98.8 ABG O2 Content 7.0 L ABG Base Excess -8.1 A-a Gradient 36.5 Oxyhemoglobin 96.1 Carboxyhemoglobin 1.6 Methemoglobin 0.0 Reduced Hemoglobin 2.3 Total Hemoglobin 4.9 L* O2 Delivery Device Nasal cannula O2 Liters/Min 2.0 FiO2 28 Sodium Potassium Chloride Carbon Dioxide Anion Gap BUN Creatinine Estim Creat Clear Calc Estimated GFR Glucose POC Capillary Glucose 150 H Lactic Acid Calcium Magnesium Iron TIBC % Saturation Ferritin Total Bilirubin AST ALT Alkaline Phosphatase Total Protein Albumin Stl Occult Blood (IFOB) Cryoglobulin Qualit Histone Antibodies Blood Type Antibody Screen MENDOZA, IgG Interpret MENDOZA, Complement Interp Crossmatch
[2024-09-30 10:44] LABS: Reflex Lactic Acid Yes or No Add Lactic
--- NOTE | 2024-09-30 11:05 | PCFNICU ---
ICU Rounding Note: Pt current nutrition is NPO Last recorded weight is 105.9 kg, up from 95 kg on admit. Bowel Motility:+BM reported 2/5 Labs Reviewed:Glu 138, BUN 96, Cr 3.0, Alb 2.6 Meds Noted:Zofran, NovoLog, Lantus, Crestor, Protonix, Rocephin. Skin: Deep Tissue-left buttock Additional Notes:Patient transferred to ICU today. Diet order NPO at this time. Will continue to monitor for any further nutritional needs. Following daily in ICU rounds. Monitor intake, wt, labs. Follow up in 3 days.
[2024-09-30] MEDS: SODIUM BICARBONATE 8.4% 50 MEQ/50 ML SYRINGE 100 MEQ IV PUSH (11:38)
[2024-09-30 11:42] LABS: Basophils Percent Auto 0.1 % (0.2-1.2); Immature Granulocyte Absolute 0.08 K/mm3 (0.00-0.031); Immature Granulocyte Percent A 0.8 % (0-0.5); Immature Platelet Fraction Pct 8.7 % (0.9-11.2); Lymphocytes Absolute Auto 0.85 K/mm3 (0.9-3.2); Lymphocytes Percent Auto 8.9 % (18.3-44.2); Mean Corpuscular HGB Conc 31.6 g/dl (32-36); Mean Corpuscular Hemoglobin 28.1 pg (26-34); Mean Corpuscular Volume 88.8 fl (80-100); Mean Platelet Volume 13.2 fl (7.4-10.4); Monocytes Absolute Auto 0.4 K/mm3 (0.1-0.6); Monocytes Percent Auto 4.6 % (2.6-8.5); Neutrophils Absolute Auto 8.1 K/mm3 (1.3-6.7); Neutrophils Percent Auto 85.6 % (45.5-73.1); Platelet Count Result 57 k/mm3 (150-375); Red Blood Count 1.96 M/mm3 (4.2-5.4); Red Cell Distribution Width 16.8 % (11.5-14.5); White Blood Count 9.5 K/mm3 (4.5-10.0)
[2024-09-30] MEDS: LINEZOLID 600 MG/300 ML 600 MG/300 ML SOLN 300 MG IVPB ×2 (11:44→23:55)
[2024-09-30 11:50] LABS: Hemoglobin 5.5 g/dL (12.0-15.0)
[2024-09-30 11:51] LABS: Hematocrit 17.4 % (37.0-47.0)
[2024-09-30 11:53] LABS: INR 2.2; Prothrombin Time 24.7 Seconds (11.1-14.7)
[2024-09-30 11:54] LABS: Albumin Level 2.2 g/dL (3.5-5.1); Alkaline Phosphatase 39 U/L (38-126); Anion Gap 16 mmol/L (4-12); Aspartate Amino Transferase 346 U/L (14-36); Bilirubin,Total 1.5 mg/dL (0.2-1.3); Blood Urea Nitrogen 99 mg/dL (7-17); Calcium 6.8 mg/dL (8.4-10.2); Carbon Dioxide 17 mmol/L (22-30); Chloride 107 mmol/L (98-107); Estimated CRCL calculation 23 ml/min; Estimated Glomerular Filt Rate 16; Glucose 145 mg/dL (65-110); Lipase 967 U/L (23-300); Magnesium 1.9 mg/dL (1.6-2.3); Partial Thromboplastin Time 47.2 Seconds (22.3-36.8); Phosphorus 7.4 mg/dL (2.5-4.5); Potassium 4.2 mmol/L (3.4-5.0); Sodium 140 mmol/L (137-145)
[2024-09-30 11:58] LABS: Anisocytosis 1+; Platelet Estimate Decreased (Adequate); Schistocytes None Seen
[2024-09-30] MEDS: LACTATED RINGERS 1,000 ML 999 ML IV CONT (12:00)
[2024-09-30 12:01] LABS: Glucose Point of Care 172 mg/dl (65-105)
[2024-09-30 12:01] LABS: D Dimer 3.37 ug/mL (<0.48)
[2024-09-30 12:02] LABS: Alanine Aminotransferase 200 U/L (6-35)
--- NOTE | 2024-09-30 12:23 | P.PCNBED_ITS ---
Procedures Central Line Placement Right IJ: Central Line Date: 09/30/24 Central Line Time: 11:25 Discussed w/ the patient/family/POA,the placement of a central venous catheter, including its clinical necessity/indication & associated potential risks, benifits and alternatives.: Yes The patient/family/POA understand(s) and acknowledge(s) the need to proceed with central venous catheter insertion as an important element of the patient's clinical management.: Yes Consent: I have discussed with the patient and/or surrogate, the non-emergent placement of a central venous catheter, including its clinical necessity/indication and associated potential risks and complications. The patient and/or surrogate understand(s) and acknowledge(s) the need to proceed with central venous catheter insertion as an important element of the patient's clinical management. Time Out Performed: Yes Patient Position: supine Patient placed on monitor/pulse ox: Yes Provider Prep: mask, sterile gown, sterile gloves, Max. sterile barrier precautions, cap and hand hygiene with conventional soap/water or alcohol based hand rub Central line prep: 2% Chlorhexidine scrub Local anesthesia used: lidocaine 1% Amount of anesthesia used (ml): 3 Sterile US Technique with sterile gel/sterile probe covers: Yes Central line lumen inserted: triple Portuguese: 7 Length (cm): 16 Depth of Insertion (cm): 16 Post Procedure: sutured in place, good blood return, all ports aspirated, flushed, capped, transparent dressing, hemostatic product, antimicrobial product, securement product and aseptic technique maintained throughout procedure Post procedure x-ray: tip of catheter in good position and no pneumothorax seen Patient tolerated procedure: well Complications: none
--- NOTE | 2024-09-30 12:25 | WPDCNINT ---
Assessment and Plan Assessment and plan (1) Shock: Code(s): R57.9 - Shock, unspecified Status: Acute Assessment and Plan: Hemorrhagic shock secondary to acute subcapsular hematoma involving the left horseshoe kidney, status post left kidney biopsy on 09/29/2024 by interventional radiology -patient hypotensive, received 1 L IV fluid bolus, 2 units of packed RBCs despite which her blood pressure is a low, -elevated lactic acid -will start Levophed to maintain map of greater than 65 mmHg are SBP greater than 100 mmHg. -elevated LFTs secondary shock liver, continue to monitor -transfuse PRBC as needed UTI with urine cultures on 09/25/2024 growing E coli and VRE -continue ceftriaxone and linezolid (2) Anemia: Code(s): D64.9 - Anemia, unspecified Status: Acute Assessment and Plan: Patient dropped her hemoglobin to 5.5 this morning, likely related to subcapsular hematoma involving the left horseshoe kidney due to kidney biopsy by Interventional Radiology -transfuse 2 units of packed RBCs -will recheck hemoglobin after the 2nd unit -if hemoglobin remains low will continue transfuse. -if bleeding continues patient may require to be transferred to high level of care for embolization (3) Thrombocytopenia: Code(s): D69.6 - Thrombocytopenia, unspecified Status: Acute Assessment and Plan: Thrombocytopenia could be secondary to consumptive thrombocytopenia, secondary to infection/sepsis, medication related -09/30: will transfuse 1 unit of platelet since patient is bleeding -appreciate hematology/oncology evaluation (4) Acute on chronic renal failure: Code(s): N17.9 - Acute kidney failure, unspecified; N18.9 - Chronic kidney disease, unspecified Status: Acute Assessment and Plan: Acute on chronic kidney disease, baseline creatinine 2.6-3.3 -DULCE positive 1:1280, nuclear homogeneous pattern. Anti myeloperoxidase positive anti proteinase and GBM negative -patient was being diuresed with Bumex, likely intravascularly depleted -nephrology following, considering SLE versus microscopic polyangiitis. Status post pulse dose steroids -09/29/2024: Left kidney biopsy done by Interventional Radiology (5) Diabetes mellitus: Qualifiers: Diabetes mellitus complication detail: with diabetic retinopathy Diabetes mellitus complication status: with ophthalmic complications Diabetes mellitus lobsterman insulin use: without lobsterman use Diabetes mellitus macular edema: without macular edema Diabetes mellitus type: type 2 Diabetic retinopathy severity: with unspecified retinopathy severity Laterality: right Qualified Code(s): E11.319 - Type 2 diabetes mellitus with unspecified diabetic retinopathy without macular edema Code(s): E11.9 - Type 2 diabetes mellitus without complications Status: Chronic Assessment and Plan: Accu-Cheks and sliding scale insulin. -on hold Lantus for now (6) Closed left ankle fracture: Qualifiers: Encounter type: initial encounter Qualified Code(s): S82.892A - Other fracture of left lower leg, initial encounter for closed fracture Code(s): S82.892A - Other fracture of left lower leg, initial encounter for closed fracture Status: Acute Assessment and Plan: 09/17: Fall while working with physical therapy - Right elbow x-ray showing no fracture, right knee x-ray showing mild osteoarthritis. -Right foot x-ray showed no fractures. Left lower extremity x-ray showed minimally displaced extra-articular fracture of the proximal left fibular diaphysis, distal fibular fx and comminuted fracture of the distal tibia. - Left ankle xray showing comminuted fracture of the anterior distal tibia that extends into the tibiotalar joint space, additional fracture deformity within the medial and lateral malleolus. The fracture within the medial malleolus extends into the joint space and articular surface of the tibiotalar joint. -appreciate ortho evaluation and recommendation, patient was supposed to have the surgery done on 09/30/2024, this has been canceled due to the worsening and medical condition, anemia, hypotensive, shock, thrombocytopenia (7) Fall from ground level: Code(s): W18.30XA - Fall on same level, unspecified, initial encounter Status: Acute Assessment and Plan: As above (8) Hypertension: Code(s): I10 - Essential (primary) hypertension Status: Chronic Assessment and Plan: Hold all antihypertensives due to patient being hypotensive, in shock, anemic (9) Pericarditis: Code(s): I31.9 - Disease of pericardium, unspecified Status: Acute Assessment and Plan: Patient was recently hospitalized pericarditis, started on ibuprofen and colchicine -colchicine was discontinued due to diarrhea -ibuprofen was discontinued due to acute on chronic kidney disease -patient status post prednisone taper -cardiology following the patient -repeat echocardiogram not show any pericardial effusion -status post pulse dose steroids Plan DVT prophylaxis: SCDs, no chemoprophylaxis secondary to severe anemia and hemorrhagic shock Stress ulcer prophylaxis: Protonix IV q.12 hours Nutrition: NPO for now Code Status: Full code Critical Care Time Spent: 84 minutes Discussed with patient's and son and updated them with patient's condition and plan of care. I did tell them that she has a bleed on her kidney, and that she was being transfused blood products. Will continue to monitor her hemoglobin and blood counts, if she continues to bleed she may require transfer to higher level of care. I answered all the questions Due to a high probability of clinically significant, life threatening deterioration, the patient required my highest level of preparedness to intervene emergently and I personally spent this critical care time directly and personally managing the patient. This critical care time included obtaining a history; examining the patient; pulse oximetry; ordering and review of studies; arranging urgent treatment with development of a management plan; evaluation of patient's response to treatment; frequent reassessment; and discussions with other providers. It was exclusive of separately billable procedures and treating other patients and teaching time. Please see Assessment and Plan section and the rest of the note for further information on patient assessment and treatment This dictation may have been done utilizing a voice recognition system. Attempts have been made to correct errors. However, there may be uncorrected grammatical, spelling, and recognitions errors present. Litigation Legal Secretary Consult Note Consult date: 09/30/24 Reason for consult: Severe anemia, altered mental status, hypotension acute subcapsular hematoma involving the left horseshoe kidney HPI: Arely Ernandez is a 63 year old female with past medical history of thrombocytopenia, diabetes, chronic renal disease, anxiety presented the ED on 09/07/2024 six for generalized weakness, nausea and vomiting. Patient had a fall on 09/17/2024 while working with the physical therapist. Right elbow x-ray showing no fracture, right knee x-ray showing mild osteoarthritis. Right foot x-ray showed no fractures. Left lower extremity x-ray showed minimally displaced extra-articular fracture of the proximal left fibular diaphysis, distal fibular fx and comminuted fracture of the distal tibia. Left ankle xray showing comminuted fracture of the anterior distal tibia that extends into the tibiotalar joint space, additional fracture deformity within the medial and lateral malleolus. The fracture within the medial malleolus extends into the joint space and articular surface of the tibiotalar joint. Ortho was consulted and patient was supposed to have the surgery done today on 09/30/2024. Patient has baseline hemoglobin of around 10. She did drop her hemoglobin 7.1 09/17/2024 and recheck [id number] the hemoglobin was 3.9, which she received 4 units of packed RBCs. Patient has had chronic renal disease stage IV. Baseline creatinine 2.6-3.3. On admission her and creatinine was 4.21. Nephrology is following the patient, 6 hepatitis panel and HIV were negative, patient has some sort of autoimmune disease as a DULCE was positive (1:1280). Patient was being diuresed because of for anasarca and edema. Patient also has a history of atrial fibrillation, high has been on metoprolol. Eliquis was held because drop in hemoglobin 09/21/2024. Patient also being treated for failure to thrive. Patient had pericarditis on her echocardiogram during the recent hospitalization, was started on ibuprofen and colchicine. Colchicine was the cause of her diarrhea which was discontinued and ibuprofen was discontinued due to her kidney issues. Patient was on a prednisone taper which she completed. She also received pulse dose steroids per Nephrology. C diff was negative. 09/29: Left heart show kidney biopsy performed by Interventional Radiology 09/30/2024: I was asked to evaluate the patient on the medical floor for hypotension, altered mental status, generalized swelling and anasarca. Upon arrival to on the medical floor patient was less responsive, barely able to open her eyes or answer any questions. Systolic blood pressures were in the 60s. The bedside RN informed me that patient has been volume overload and that is why they are diuresing the patient with Bumex. I ordered a stat chest x-ray, lungs were clear, 1 L IV fluid bolus was started, patient was sent to the CT scan for CT brain and CT abdomen and pelvis since she had abdominal pain. CT scan of the abdomen and pelvis showed acute subcapsular hematoma involving the left horseshoe kidney. CT brain was negative for acute intracranial abnormalities. Patient was transferred to the ICU after CT scans. Right IJ central line was inserted it urgently after acquiring consent from the family. Hemoglobin was 5.5 early this morning, 2 units of packed RBCs were urgently transfused. Lactic acid is elevated to 6.7. Minimal urine output, creatinine remains stable. Patient is hypothermic. ABGs done in the ICU showed a pH of 7.42, pCO2 of 24, PO2 of 134, HC03 15.7, O2 sats 98% on 2 L nasal cannula. Patient was also give 2 amps of bicarb Review of Systems Review of Systems: ROS unobtainable: Yes unobtainable due to medical condition and unobtainable due to mental status PMFSH Past Medical History Medical History (Updated 09/30/24 @ 12:46 by Sanjay Fuller MD) Thrombocytopenia Fracture of ankle, trimalleolar, left, closed Swelling of right foot Fibula fracture Diabetes mellitus Chronic renal disease Anxiety Surgical History Surgical History History of appendectomy Family History Family History Father Hypertension Diabetes mellitus Lymphoma Grandparent Diabetes mellitus Grandparent Diabetes mellitus Mother Pacemaker Social History Social History Smoking status: Former smoker Tobacco type: cigarettes Alcohol intake: former Substance use: former Substance use type: does not use Do You Feel Safe in your Home?: Yes Lack of Transportation: No Lack of Food: Never True Current Housing: I Have Housing Concerned About Future Housing: No Difficulty Paying Gas/Electric Bills: No Difficulty Paying for Meds: No Currently Unemployed: No Education: High School Diploma/GED Difficulty w/ Childcare or Family Care: No Spiritual care concerns: No Meds Home Medications and Allergies Home Medications ?Medication ?Instructions ?Recorded ?Confirmed ?Type amlodipine 5 mg tablet 5 mg PO QAM 08/22/24 09/07/24 History brimonidine 0.2 % eye drops 1 drp EACH EYE BID 08/22/24 09/07/24 History cholecalciferol (vitamin D3) 50 50 mcg PO QAM 08/22/24 09/07/24 History mcg (2,000 unit) tablet (D3 DOTS) dorzolamide 2 % eye drops 1 drp RIGHT EYE BID 08/22/24 09/07/24 History ferrous sulfate 325 mg (65 mg 325 mg PO QAM 08/22/24 09/07/24 History iron) tablet (FeroSul) hydralazine 50 mg tablet 50 mg PO TID 08/22/24 09/07/24 History metoprolol succinate 100 mg 100 mg PO QAM 08/22/24 09/07/24 History tablet,extended release 24 hr polyvinyl alcohol-povidone 0.5 1 drp RIGHT EYE BID 08/22/24 09/07/24 History %-0.6 % eye drops (Artificial Tears (polyvinyl alcohol/povidone)) rosuvastatin 5 mg tablet 5 mg PO QAM 08/22/24 09/07/24 History sodium bicarbonate 650 mg tablet 650 mg PO TID 08/22/24 09/07/24 History timolol maleate 0.5 % eye drops 1 drp EACH EYE BID 08/22/24 09/07/24 History apixaban 2.5 mg tablet (Eliquis) 2.5 mg PO BID #60 tabs 08/26/24 09/07/24 Rx blood-glucose meter,continuous #1 ea 08/26/24 09/10/24 Rx (Dexcom G6 Processor Grain) blood-glucose sensor (Dexcom G6 #3 ea 08/26/24 09/10/24 Rx Sensor device) blood-glucose transmitter (Dexcom #1 ea 08/26/24 09/10/24 Rx G6 Transmitter device) colchicine 0.6 mg tablet (Colcrys) 0.6 mg PO Q12HR #120 tabs 08/26/24 09/07/24 Rx ibuprofen 600 mg tablet 600 mg PO TID #30 tabs 08/26/24 09/07/24 Rx Allergies Allergy/AdvReac Type Severity Reaction Status Date / Time Penicillins Allergy Unknown Unknown Verified 09/27/24 08:54 coconut Allergy Hives Verified 09/07/24 06:30 Vital Signs Vital Signs - 24 hr 09/29/24 14:18 09/29/24 14:34 09/29/24 14:51 Temperature 96.3 F L 96.3 F L Pulse Rate 68 57 L 56 L Respiratory Rate 16 17 Blood Pressure 139/72 128/58 L 119/54 L Pulse Oximetry 100 99 Oxygen Delivery Fraction of Inspired Oxygen 09/29/24 15:43 09/29/24 17:50 09/29/24 18:48 Temperature 96.1 F L 96.4 F L 96.4 F L Pulse Rate 59 L 100 100 Respiratory Rate 18 14 14 Blood Pressure 109/51 L 100/48 L 100/48 L Pulse Oximetry 100 11 L 100 Oxygen Delivery Fraction of Inspired Oxygen 09/29/24 20:00 09/29/24 20:00 09/30/24 00:00 Temperature 98.0 F 97.5 F L Pulse Rate 70 69 Respiratory Rate 18 18 Blood Pressure 93/54 L 100/43 L Pulse Oximetry 100 96 Oxygen Delivery Room Air Fraction of Inspired Oxygen 21 09/30/24 08:00 09/30/24 09:45 09/30/24 09:45 Temperature 96.5 F L 95.1 F L Pulse Rate 71 72 Respiratory Rate 14 24 H Blood Pressure 100/54 L 91/46 L Pulse Oximetry 100 100 Oxygen Delivery Room Air Fraction of Inspired Oxygen 09/30/24 10:29 09/30/24 10:47 09/30/24 11:47 Temperature 95.1 F L 95.1 F L 95.7 F L Pulse Rate 77 71 77 Respiratory Rate 23 H 21 H 22 H Blood Pressure 92/47 L 82/46 L 101/50 L Pulse Oximetry 100 100 98 Oxygen Delivery Fraction of Inspired Oxygen Exam Narrative: General: Patient is somnolent, with altered mental status, . HEENT:? Pupils equal and reactive, sclerae is clear Neck:? Supple Respiratory:? Clear to auscultation bilaterally, decreased at bases, adequate air entry Cardiac:? S1-S2 normal, regular rate and rhythm Abdomen:? Soft, nondistended, obese, periumbilical tenderness palpation, hypoactive bowel sound Extremities:? Bilateral upper extremity and lower extremity edema and swelling, left hand dorsal aspect swollen with blister and weeping. Right foot dorsal aspect with blister formation. Foot and ankle and Chente wrap Neuro:? Patient does open her eyes to name, does not answer any questions, moans according the bedside on the medical floor she was able low hold a full conversation until 09/29/24 Skin:? Multiple bruising and blistering noted Psych:? Unable to assess at this time Results Labs 09/30/24 11:29 09/30/24 11:29 Labs: Short CBC 09/30/24 09/30/24 Range/Units 07:31 11:29 WBC 11.4 H 9.5 (4.5-10.0) K/mm3 Hgb 5.3 L* 5.5 L* (12.0-15.0) g/dL Hct 16.3 L* 17.4 L* (37.0-47.0) % Plt Count 74 L 57 L (150-375) k/mm3 BMP 09/30/24 09/30/24 07:31 11:29 Sodium 139 140 Potassium 4.0 4.2 Chloride 106 107 Carbon Dioxide 18 L 17 L BUN 96 H 99 H Creatinine 3.00 H 2.90 H Glucose 138 H 145 H Calcium 6.7 L 6.8 L Liver Function 09/30/24 09/30/24 Range/Units 07:31 11:29 Total Bilirubin 1.6 H 1.5 H (0.2-1.3) mg/dL AST 188 H 346 H (14-36) U/L ALT 105 H 200 H (6-35) U/L Alkaline Phosphatase 44 39 (38-126) U/L Albumin 2.6 L 2.2 L (3.5-5.1) g/dL Quality VTE Prophylaxis VTE prophylaxis: mechanical ordered If No VTE Prophylaxis Answer both mechanical and pharmacologic: Reason no pharmacologic proph: medical contraindication active bleeding/bleeding risk and thrombocytopenia Hospitalist MIPS Advance Care Plan I have confirmed that the patient's Advanced Care Plan is present, code status is documented, or surrogate decision maker is listed in patient medical record.: Yes Medication Reconciliation I have utilized all available resources to obtain, update and review the patients current medications (includes all prescriptions, OTC, herbals, cannabis, and nutritional supplements).: Yes
[2024-09-30 12:33] LABS: Lactic Acid Reflex 6.7 mmol/L (0.7-2.0)
[2024-09-30] MEDS: cefTRIAXone 2 GM/NS 100 ML 2 GM/100 ML BAG IVPB (12:41)
[2024-09-30] MEDS: NOREPINEPHRINE 8 MG/D5W 250 ML 8 MG/250 ML BAG 9.38 MG IV CONT (12:54)
--- NOTE | 2024-09-30 13:09 | PCPTNOTE ---
Patient transferred from medical floor to ICU today. PT will hold treatment and await further orders to continue PT.
--- NOTE | 2024-09-30 13:36 | P.PNNP_ITS ---
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 * nephrotic range proteinuria * s/p pulse dose steroids * Eliquis on hold * RENAL BIOPSY (on 09/29): * Nodular Diabetic Glomerulosclerosis * 40-50% interstitial fibrosis and tubular atrophy * no evidence of vasculitis or autoimmune disease * follow trend of repeat labs and UOP (2) Chronic kidney disease, stage IV (severe): Code(s): N18.4 - Chronic kidney disease, stage 4 (severe) Status: Chronic Assessment and Plan: * baseline creatinine runs ~ 2.5 - 3.2mg/dl per review of outpatient labs 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 Shook & Rosa Delgado, AMA (3) Hypertension: Code(s): I10 - Essential (primary) hypertension Status: Chronic Assessment and Plan: * BP better * restarted nifedipine * follow trend of hemodynamics (4) Anemia: Code(s): D64.9 - Anemia, unspecified Status: Acute Assessment and Plan: * drop in H/H noted by labs today * chronic element related to CKD * however, dropped to 3.8 - 3.9 on 09/21 * no evidence of acute blood loss anemia * no schistocytes seen * bilirubin normal * s/p 4U PRBCs transfusion * H/H relatively stable at this time * recent CT C/A/P with no evidence of acute blood loss but shows anasarca, possible pancreatitis and fecal impaction * occult blood of stool negative * anemia studies noted: * B12/folate normal in July 2024 * adequate iron stores (by 09/12 testing) * hemoglobin relatively stable at this time (5) Fracture of left proximal fibula: Code(s): S82.832A - Other fracture of upper and lower end of left fibula, initial encounter for closed fracture Status: Acute Assessment and Plan: * imaging with minimally displaced extra-articular fracture of the proximal left fibular diaphysis, distal fibular fx and comminuted fracture of the distal tibia * Ortho recommendations noted * fracture boot in place * PT/OT with precautions (6) Closed left ankle fracture: Qualifiers: Encounter type: initial encounter Qualified Code(s): S82.892A - Other fracture of left lower leg, initial encounter for closed fracture Code(s): S82.892A - Other fracture of left lower leg, initial encounter for closed fracture Status: Acute Assessment and Plan: * Left ankle xray noted: * comminuted fracture of the anterior distal tibia that extends into the tibiotalar joint space, additional fracture deformity within the medial and lateral malleolus. The fracture within the medial malleolus extends into the joint space and articular surface of the tibiotalar joint * fracture boot in place * Orthopedic recommendations noted * PT/OT with precautions (7) Atrial fibrillation: Code(s): I48.91 - Unspecified atrial fibrillation Status: Acute Assessment and Plan: * rate controlled * on Eliquis and metoprolol * holding Eliquis for renal biopsy (8) Pericarditis: Code(s): I31.9 - Disease of pericardium, unspecified Status: Acute Assessment and Plan: * as noted on previous hospitalization * was on ibuprofen and colcicine * discontinued due to BUTCH + CKD * completed prednisone taper * repeat echocardiogram with no pericardial effusion. * related to #1 (?) (9) Urinary tract infection: Code(s): N39.0 - Urinary tract infection, site not specified Status: Inactive Assessment and Plan: * recent UA suggestive * urine culture with E. Coli + Enterococcus * on antibiotic therapy (10) Diabetes mellitus: Qualifiers: Diabetes mellitus complication detail: with diabetic retinopathy D iabetes mellitus complication status: with ophthalmic complications Diabetes mellitus half-way insulin use: without buttermaker continuous churn use Diabetes mellitus macular edema: without macular edema Diabetes mellitus type: type 2 Diabetic retinopathy severity: with unspecified retinopathy severity Laterality: right Qualified Code(s): E11.319 - Type 2 diabetes mellitus with unspecified diabetic retinopathy without macular edema Code(s): E11.9 - Type 2 diabetes mellitus without complications Status: Chronic Assessment and Plan: * follow accu-cheks * glycemic control per hospitalist Will continue to follow. L Subjective Date/time seen: 09/30/24 13:36 Interval history: Follow-up for acute kidney injury on top of chronic kidney disease. Events noted earlier this morning -- Exam 2 Narrative: General: WD/WN female in NAD Heart: normal S1 and S2; no rub Lungs: clear bilaterally Abdomen: soft, nontender, nondistended, positive bowel sounds Extremities: diffuse edema (1 - 2+); left leg boot in place Skin: warm and intact Objective Data Vital Signs Vital Signs: Vital Signs Temp Pulse Resp BP Pulse Ox O2 Del Method FiO2 09/30/24 13:25 97.6 F 86 22 H 138/61 97 09/30/24 12:54 83 93/49 L 09/30/24 12:45 96.3 F L 90 23 H 114/59 L 99 09/30/24 12:30 95.8 F L 78 22 H 93/49 L 99 09/30/24 12:00 Room Air 09/30/24 11:47 95.7 F L 77 22 H 101/50 L 98 09/30/24 10:47 95.1 F L 71 21 H 82/46 L 100 09/30/24 10:29 95.1 F L 77 23 H 92/47 L 100 09/30/24 09:45 Room Air 09/30/24 09:45 95.1 F L 72 24 H 91/46 L 100 09/30/24 08:00 96.5 F L 71 14 100/54 L 100 09/30/24 00:00 97.5 F L 69 18 100/43 L 96 09/29/24 20:00 Room Air 21 09/29/24 20:00 98.0 F 70 18 93/54 L 100 09/29/24 18:48 96.4 F L 100 14 100/48 L 100 Intake/Output Intake/Output: Intake & Output 09/27/24 09/28/24 09/29/24 09/30/24 23:59 23:59 23:59 23:59 Intake Total 6234 478 5509 2836.8 Output Total 800 175 Balance 159 517 0654 2661.8 Meds/Results Medications: Active Medications Generic Name Dose Route Start Last Admin Trade Name Freq PRN Reason Stop Dose Admin Acetaminophen 650 mg 09/26/24 07:08 Acetaminophen 325 Mg Tablet PO Q6H PRN Mild Pain (1-3) or Fever Albuterol/Ipratropium 3 ml 09/24/24 07:54 Ipratropium 0.5 Mg/Albuterol Sulfate 2.5 Mg Ampul.Neb 3 Ml INHALATION Q6HRT PRN Shortness Of Breath Apixaban 2.5 mg 09/07/24 09:30 09/26/24 09:30 Apixaban 2.5 Mg Tablet PO 2.5 mg Q12HR NAHOMI Administration Artificial Tears 1 drop 09/07/24 09:35 09/30/24 15:02 Artificial Tears Ophth Soln 15 Ml Bottle RIGHT EYE 1 drop Q12HR NAHOMI Administration Brimonidine Tartrate 1 drop 09/07/24 09:30 09/30/24 15:02 Brimonidine Tartrate 0.2% Op Soln 5 Ml Btl EACH EYE 1 drop Q12HR NAHOMI Administration Bumetanide 1 mg 09/26/24 17:00 09/30/24 11:36 Bumetanide Inj 1 Mg/4 Ml Vial IV PUSH Not Given BID NAHOMI Dextrose 12.5 gm 09/07/24 09:15 Dextrose 50% 25 Gm/50 Ml Syringe IV PUSH PRN PRN Hypoglycemia Protocol Dorzolamide HCl 1 drop 09/07/24 09:30 09/30/24 15:02 Dorzolamide Hcl 2% Ophth Drops RIGHT EYE 1 drop Q12HR NAHOMI Administration Glucagon 1 mg 09/07/24 09:15 Glucagon For Inj 1 Mg Vial IM PRN PRN Hypoglycemia Protocol Glucose 15 gm 09/07/24 09:15 Glucose Oral Gel 15 Gm Of Glucse In 37.5 Gm Tube PO PRN PRN Hypoglycemia Protocol Guaifenesin 600 mg 09/24/24 09:00 09/30/24 11:36 Guaifenesin 12 Hr 600 Mg Tabcr PO Not Given Q12HR NAHOMI Guaifenesin/Dextromethorphan 5 ml 09/18/24 15:30 09/25/24 09:18 Guaifenesin/Dextromethorphan 10 Ml Udc PO 5 ml Q4H PRN Administration Cough Dextrose 1,000 mls @ 100 mls/hr 09/07/24 09:15 Dextrose 5% 1,000 Ml IVPB PRN PRN Hypoglycemia Protocol Albumin Human 100 mls @ 60 mls/hr 09/27/24 18:00 09/30/24 05:46 Albutein IVPB 60 mls/hr Q6HR NAHOMI Administration Sodium Chloride 250 mls @ 30 mls/hr 09/30/24 09:50 09/30/24 11:37 Normal Saline Iv IV CONT 09/30/24 18:09 Not Given .Q8H20M STA Linezolid 600 mg in 300 mls @ 300 mls/hr 09/30/24 10:20 09/30/24 15:05 Zyvox IVPB 10/04/24 10:19 Infused Q12HR NAHOMI Infusion Ceftriaxone Sodium 2 gm in 100 mls @ 200 mls/hr 09/30/24 12:00 09/30/24 15:05 Rocephin 2 Gm/Ns 100 Ml IVPB Infused Q24H NAHOMI Infusion Norepinephrine Bitartrate 8 mg in 250 mls @ 7.5 mls/hr 09/30/24 12:40 09/30/24 18:04 Levophed 8 Mg/D5w 250 Ml IV CONT 4 mcg/min .Q24H NAHOMI 7.5 mls/hr Titration Protocol 4 MCG/MIN Sodium Chloride 250 mls @ 30 mls/hr 09/30/24 13:01 09/30/24 13:23 Normal Saline Iv IV CONT 09/30/24 21:20 Not Given .Q8H20M STA Sodium Chloride 250 mls @ 30 mls/hr 09/30/24 13:01 09/30/24 13:24 Normal Saline Iv IV CONT 09/30/24 21:20 Not Given .Q8H20M STA Insulin Aspart 3 - 6 units 09/30/24 12:00 09/30/24 12:53 Insulin Aspart (*Bkc) 100 Units/Ml SUB-Q Not Given Q6HR NAHOMI Protocol Insulin Glargine 25 units 09/24/24 21:00 09/29/24 21:18 Insulin Glargine (*Bkc) 100 Units/Ml SUB-Q Not Given HS NAHOMI Metoprolol Succinate 100 mg 09/07/24 09:00 09/30/24 11:37 Metoprolol Succinate Ext Rel 100 Mg Tabcr PO Not Given QAM [facility] Morphine Sulfate 1 mg 09/26/24 07:10 Morphine Sulfate (*Crx) 2 Mg/Ml Inj IV PUSH Q4H PRN Pain Rated 7-10 Naloxone HCl 0.1 mg 09/07/24 08:19 Naloxone Hcl 0.4 Mg/Ml Vial IV PUSH Q2M PRN Opiate Reversal Nifedipine 30 mg 09/25/24 09:00 09/30/24 11:37 Nifedipine 30 Mg Tab.Er.24 PO Not Given QAM [facility] Ondansetron HCl 4 mg 09/07/24 09:15 09/13/24 14:52 Ondansetron Inj 4 Mg/2 Ml Vial IV PUSH 4 mg Q6H PRN Administration Nausea And Vomiting Pantoprazole Sodium 40 mg 09/30/24 21:00 Pantoprazole Sodium Iv 40 Mg Vial IV PUSH Q12HR [facility] Polysaccharide Iron Complex 150 mg 09/07/24 17:00 09/30/24 11:36 Polysaccharide Iron Complex 150 Mg Capsule PO Not Given BIDWM [facility] Rosuvastatin Calcium 5 mg 09/07/24 09:00 09/30/24 11:37 Rosuvastatin 5 Mg Tablet PO Not Given QAM [facility] Sodium Bicarbonate 1,300 mg 09/10/24 09:00 09/30/24 11:37 Sodium Bicarbonate Tab 650 Mg Tablet PO Not Given TID [facility] Timolol Maleate 1 drop 09/07/24 09:35 09/30/24 15:03 Timolol Maleate 0.5% Op Soln 5 Ml Bottle EACH EYE 1 drop Q12HR NAHOMI Administration Radiology Results: ITS Impressions Abdomen/Pelvis CT 09/07/24 05:37 Impression: Minimal bilateral pleural effusions. Horseshoe kidney. Elbow X-Ray 09/17/24 12:16 IMPRESSION: 1. No fracture. Knee X-Ray 09/17/24 12:17 IMPRESSION: 1. Minimally displaced extra articular fracture of the proximal left fibular diaphysis. Correlate for any associated ankle pain and consider additional radiographs of the more distal tibia and fibula as clinically indicated. Tibia/Fibula X-Ray 09/17/24 15:54 IMPRESSION: 1. Fractures of proximal and distal fibula. 2. Comminuted fracture of distal tibia. Foot X-Ray 09/21/24 17:53 IMPRESSION: 1. No fracture. Ankle X-Ray 09/27/24 14:14 IMPRESSION: 1. Trimalleolar ankle fracture without change in alignment. Renal Biopsy Ultrasound 09/29/24 12:28 IMPRESSION: 1. Ultrasound-guided random core needle biopsy of the left moiety of a horseshoe kidney. Head CT 09/30/24 09:38 Impression: No significant abnormality seen. Chest/Abdomen/Pelvis CT 09/30/24 09:51 IMPRESSION: 1. Acute subcapsular hematoma involving the horseshoe kidney with acute hematoma extending into the retroperitoneal fat. 2. Worsened moderate volume of ascites. 3. Worsened small pleural effusions. ADDENDUM: 09/30/24 1010 I discussed these findings with Dr. Fuller. Chest X-Ray 09/30/24 11:38 IMPRESSION: 1. Central line tip at superior cavoatrial junction. 2. Mild atelectasis in the lower lung zones. Labs Labs: Laboratory Tests 09/30/24 11:29 09/30/24 11:29 Fibrinogen 137 L Fibrinogen Activity Pending D-Dimer 3.37 H Lactic Acid 6.7 H* Calcium 6.8 L Phosphorus 7.4 H Magnesium 1.9 Total Bilirubin 1.5 H AST 346 H ALT 200 H Alkaline Phosphatase 39 Total Protein 4.0 L Albumin 2.2 L Lipase 967 H
[2024-09-30] MEDS: HYDROmorphone HCL INJ (*CRX) 1 MG/ML SYR 0.5 MG IV PUSH (13:47)
[2024-09-30 13:49] LABS: Fibrinogen 137 mg/dl (215-510)
[2024-09-30] MEDS: PHYTONADIONE ADULT INJ 10 MG in DEXTROSE 5% IN WATER 50 ML 100 MG IVPB (13:54)
[2024-09-30] MEDS: PANTOPRAZOLE SODIUM IV 40 MG VIAL IV PUSH ×2 (14:23→23:56)
[2024-09-30] MEDS: BRIMONIDINE TARTRATE 0.2% OP SOLN 5 ML BTL 1 DROP EACH EYE ×2 (15:02→23:54)
[2024-09-30] MEDS: DORZOLAMIDE HCL 2% OPHTH DROPS 1 DROP RIGHT EYE ×2 (15:02→23:54)
[2024-09-30] MEDS: ARTIFICIAL TEARS OPHTH SOLN 15 ML BOTTLE 1 DROP RIGHT EYE ×2 (15:02→23:54)
[2024-09-30 15:03] LABS: ANCA Screen P-ANCA POS (NEGATIVE); P-ANCA Titer Reflex Chg Test YES
[2024-09-30] MEDS: TIMOLOL MALEATE 0.5% OP SOLN 5 ML BOTTLE 1 DROP EACH EYE ×2 (15:03→23:54)
--- NOTE | 2024-09-30 16:00 | P.PNIM_ITS ---
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 Patient had renal biopsy yesterday was hypotensive this morning CT AP and chest showed renal hematoma and worsened moderate volume ascites and worsened pleural effusions (2) Anemia: Code(s): D64.9 - Anemia, unspecified Status: Acute Assessment and Plan: related to renal hematoma Hb 5.5, transfuse 2 units monitor renal hematoma (3) Thrombocytopenia: Code(s): D69.6 - Thrombocytopenia, unspecified Status: Acute Assessment and Plan: plts 57 s/p transfusion monitor (4) Acute on chronic renal failure: Code(s): N17.9 - Acute kidney failure, unspecified; N18.9 - Chronic kidney disease, unspecified Status: Acute Assessment and Plan: Acute on chronic kidney disease, baseline creatinine 2.6-3.3 -DULCE positive 1:1280, nuclear homogeneous pattern. Anti myeloperoxidase positive anti proteinase and GBM negative -patient was being diuresed with Bumex, likely intravascularly depleted -nephrology following, considering SLE versus microscopic polyangiitis. Status post pulse dose steroids -09/29/2024: Left kidney biopsy done by Interventional Radiology now with fluid overload nephrology may consider dialysis Nephrology following (5) Diabetes mellitus: Qualifiers: Diabetes mellitus complication detail: with diabetic retinopathy Diabetes mellitus complication status: with ophthalmic complications Diabetes mellitus fpc insulin use: without middle or intermediate school principal use Diabetes mellitus macular edema: without macular edema Diabetes mellitus type: type 2 Diabetic retinopathy severity: with unspecified retinopathy severity Laterality: right Qualified Code(s): E11.319 - Type 2 diabetes mellitus with unspecified diabetic retinopathy without macular edema Code(s): E11.9 - Type 2 diabetes mellitus without complications Status: Chronic Assessment and Plan: Accu-Cheks and sliding scale insulin. -on hold Lantus for now (6) Closed left ankle fracture: Qualifiers: Encounter type: initial encounter Qualified Code(s): S82.892A - Other fracture of left lower leg, initial encounter for closed fracture Code(s): S82.892A - Other fracture of left lower leg, initial encounter for closed fracture Status: Acute Assessment and Plan: 09/17: Fall while working with physical therapy - Right elbow x-ray showing no fracture, right knee x-ray showing mild osteoarthritis. -Right foot x-ray showed no fractures. Left lower extremity x-ray showed minimally displaced extra-articular fracture of the proximal left fibular diaphysis, distal fibular fx and comminuted fracture of the distal tibia. - Left ankle xray showing comminuted fracture of the anterior distal tibia that extends into the tibiotalar joint space, additional fracture deformity within the medial and lateral malleolus. The fracture within the medial malleolus extends into the joint space and articular surface of the tibiotalar joint. Surgery cancelled due to hemorrhagic shock ortho following (7) Fall from ground level: Code(s): W18.30XA - Fall on same level, unspecified, initial encounter Status: Acute Assessment and Plan: As above (8) Hypertension: Code(s): I10 - Essential (primary) hypertension Status: Chronic Assessment and Plan: Hold all antihypertensives due to patient being hypotensive, in shock, anemic (9) Pericarditis: Code(s): I31.9 - Disease of pericardium, unspecified Status: Acute Assessment and Plan: Patient was recently hospitalized pericarditis, started on ibuprofen and colchicine -colchicine was discontinued due to diarrhea -ibuprofen was discontinued due to acute on chronic kidney disease -patient status post prednisone taper -cardiology following the patient -repeat echocardiogram not show any pericardial effusion -status post pulse dose steroids Plan DVT prophylaxis: SCDs, no chemoprophylaxis secondary to severe anemia and hemorrhagic shock Stress ulcer prophylaxis: Protonix IV q.12 hours Nutrition: NPO for now Code Status: Full code Subjective Date/time seen: 09/30/24 16:00 Interval history: Patient became hypotensive this morning with hb 5.3, lactic acid 6.0. AST 346, ALT 200 was unable to do IVF as patient was fluid overload with extremities edema Boy'S Adviser was consulted and patient was transferred to the ICU for pressor support Review of Systems Review of Systems: 12 systems were reviewed and are negative except for as per HPI. All systems reviewed & are unremarkable except as noted in HPI and below ROS unobtainable: Yes unobtainable due to medical condition and unobtainable due to mental status Exam Narrative: General: Somnolent HEENT:? Pupils equal and reactive, sclerae is clear Neck:? Supple Respiratory:? Clear to auscultation bilaterally, decreased at bases, adequate air entry Cardiac:? S1-S2 normal, regular rate and rhythm Abdomen:? Soft, nondistended, obese, periumbilical tenderness palpation, hypoactive bowel sound Extremities:? Bilateral upper extremity and lower extremity edema and swelling, left hand dorsal aspect swollen with blister and weeping. Right foot dorsal aspect with blister formation. Foot and ankle and Chente wrap Neuro:? Somnolent and not following commands Skin:? Multiple bruising and blistering noted Objective Data Vital Signs Vital Signs: Vital Signs - 24 hr 09/29/24 17:50 09/29/24 18:48 09/29/24 20:00 Temperature 96.4 F L 96.4 F L 98.0 F Pulse Rate 100 100 70 Respiratory Rate 14 14 18 Blood Pressure 100/48 L 100/48 L 93/54 L Pulse Oximetry 11 L 100 100 Oxygen Delivery Fraction of Inspired Oxygen 09/29/24 20:00 09/30/24 00:00 09/30/24 08:00 Temperature 97.5 F L 96.5 F L Pulse Rate 69 71 Respiratory Rate 18 14 Blood Pressure 100/43 L 100/54 L Pulse Oximetry 96 100 Oxygen Delivery Room Air Fraction of Inspired Oxygen 21 09/30/24 09:45 09/30/24 09:45 09/30/24 10:29 Temperature 95.1 F L 95.1 F L Pulse Rate 72 77 Respiratory Rate 24 H 23 H Blood Pressure 91/46 L 92/47 L Pulse Oximetry 100 100 Oxygen Delivery Room Air Fraction of Inspired Oxygen 09/30/24 10:47 09/30/24 11:47 09/30/24 12:00 Temperature 95.1 F L 95.7 F L Pulse Rate 71 77 Respiratory Rate 21 H 22 H Blood Pressure 82/46 L 101/50 L Pulse Oximetry 100 98 Oxygen Delivery Room Air Fraction of Inspired Oxygen 09/30/24 12:30 09/30/24 12:45 09/30/24 12:54 Temperature 95.8 F L 96.3 F L Pulse Rate 78 90 83 Respiratory Rate 22 H 23 H Blood Pressure 93/49 L 114/59 L 93/49 L Pulse Oximetry 99 99 Oxygen Delivery Fraction of Inspired Oxygen 09/30/24 13:25 09/30/24 13:45 09/30/24 13:58 Temperature 97.6 F Pulse Rate 80 86 87 Respiratory Rate 22 H Blood Pressure 130/70 138/61 138/61 Pulse Oximetry 97 Oxygen Delivery Fraction of Inspired Oxygen 09/30/24 14:15 09/30/24 14:29 09/30/24 14:31 Temperature 97.9 F 98.1 F Pulse Rate 84 82 81 Respiratory Rate 21 H 23 H Blood Pressure 132/63 132/63 129/65 Pulse Oximetry 98 99 Oxygen Delivery Fraction of Inspired Oxygen 09/30/24 15:00 09/30/24 15:08 09/30/24 15:26 Temperature 98.6 F Pulse Rate 88 89 83 Respiratory Rate 22 H Blood Pressure 131/60 131/60 134/60 Pulse Oximetry 98 Oxygen Delivery Fraction of Inspired Oxygen Intake/Output Intake/Output: Intake & Output 09/27/24 09/28/24 09/29/24 09/30/24 23:59 23:59 23:59 23:59 Intake Total 2283 643 5258 2726.5 Output Total 800 Balance 482 754 5390 2726.5 Meds/Results Medications: Active Medications Generic Name Dose Route Start Last Admin Trade Name Freq PRN Reason Stop Dose Admin Acetaminophen 650 mg 09/26/24 07:08 Acetaminophen 325 Mg Tablet PO Q6H PRN Mild Pain (1-3) or Fever Albuterol/Ipratropium 3 ml 09/24/24 07:54 Ipratropium 0.5 Mg/Albuterol Sulfate 2.5 Mg Ampul.Neb 3 Ml INHALATION Q6HRT PRN Shortness Of Breath Apixaban 2.5 mg 09/07/24 09:30 09/26/24 09:30 Apixaban 2.5 Mg Tablet PO 2.5 mg Q12HR NAHOMI Administration Artificial Tears 1 drop 09/07/24 09:35 09/30/24 15:02 Artificial Tears Ophth Soln 15 Ml Bottle RIGHT EYE 1 drop Q12HR NAHOMI Administration Brimonidine Tartrate 1 drop 09/07/24 09:30 09/30/24 15:02 Brimonidine Tartrate 0.2% Op Soln 5 Ml Btl EACH EYE 1 drop Q12HR NAHOMI Administration Bumetanide 1 mg 09/26/24 17:00 09/30/24 11:36 Bumetanide Inj 1 Mg/4 Ml Vial IV PUSH Not Given BID NAHOMI Dextrose 12.5 gm 09/07/24 09:15 Dextrose 50% 25 Gm/50 Ml Syringe IV PUSH PRN PRN Hypoglycemia Protocol Dorzolamide HCl 1 drop 09/07/24 09:30 09/30/24 15:02 Dorzolamide Hcl 2% Ophth Drops RIGHT EYE 1 drop Q12HR NAHOMI Administration Glucagon 1 mg 09/07/24 09:15 Glucagon For Inj 1 Mg Vial IM PRN PRN Hypoglycemia Protocol Glucose 15 gm 09/07/24 09:15 Glucose Oral Gel 15 Gm Of Glucse In 37.5 Gm Tube PO PRN PRN Hypoglycemia Protocol Guaifenesin 600 mg 09/24/24 09:00 09/30/24 11:36 Guaifenesin 12 Hr 600 Mg Tabcr PO Not Given Q12HR NAHOMI Guaifenesin/Dextromethorphan 5 ml 09/18/24 15:30 09/25/24 09:18 Guaifenesin/Dextromethorphan 10 Ml Udc PO 5 ml Q4H PRN Administration Cough Dextrose 1,000 mls @ 100 mls/hr 09/07/24 09:15 Dextrose 5% 1,000 Ml IVPB PRN PRN Hypoglycemia Protocol Albumin Human 100 mls @ 60 mls/hr 09/27/24 18:00 09/30/24 05:46 Albutein IVPB 60 mls/hr Q6HR NAHOMI Administration Sodium Chloride 250 mls @ 30 mls/hr 09/30/24 08:27 09/30/24 11:49 Normal Saline Iv IV CONT 09/30/24 16:46 Not Given .Q8H20M STA Sodium Chloride 250 mls @ 30 mls/hr 09/30/24 09:50 09/30/24 11:37 Normal Saline Iv IV CONT 09/30/24 18:09 Not Given .Q8H20M STA Linezolid 600 mg in 300 mls @ 300 mls/hr 09/30/24 10:20 09/30/24 15:05 Zyvox IVPB 10/04/24 10:19 Infused Q12HR NAHOMI Infusion Ceftriaxone Sodium 2 gm in 100 mls @ 200 mls/hr 09/30/24 12:00 09/30/24 15:05 Rocephin 2 Gm/Ns 100 Ml IVPB Infused Q24H NAHOMI Infusion Norepinephrine Bitartrate 8 mg in 250 mls @ 0 mls/hr 09/30/24 12:40 09/30/24 15:26 Levophed 8 Mg/D5w 250 Ml IV CONT 0 mcg/min .Q0M NAHOMI 0 mls/hr Titration Protocol Sodium Chloride 250 mls @ 30 mls/hr 09/30/24 13:01 09/30/24 13:23 Normal Saline Iv IV CONT 09/30/24 21:20 Not Given .Q8H20M STA Sodium Chloride 250 mls @ 30 mls/hr 09/30/24 13:01 09/30/24 13:24 Normal Saline Iv IV CONT 09/30/24 21:20 Not Given .Q8H20M STA Insulin Aspart 3 - 6 units 09/30/24 12:00 09/30/24 12:53 Insulin Aspart (*Bkc) 100 Units/Ml SUB-Q Not Given Q6HR [facility] Protocol Insulin Glargine 25 units 09/24/24 21:00 09/29/24 21:18 Insulin Glargine (*Bkc) 100 Units/Ml SUB-Q Not Given HS [facility] Metoprolol Succinate 100 mg 09/07/24 09:00 09/30/24 11:37 Metoprolol Succinate Ext Rel 100 Mg Tabcr PO Not Given QAM [facility] Morphine Sulfate 1 mg 09/26/24 07:10 Morphine Sulfate (*Crx) 2 Mg/Ml Inj IV PUSH Q4H PRN Pain Rated 7-10 Naloxone HCl 0.1 mg 09/07/24 08:19 Naloxone Hcl 0.4 Mg/Ml Vial IV PUSH Q2M PRN Opiate Reversal Nifedipine 30 mg 09/25/24 09:00 09/30/24 11:37 Nifedipine 30 Mg Tab.Er.24 PO Not Given QAM [facility] Ondansetron HCl 4 mg 09/07/24 09:15 09/13/24 14:52 Ondansetron Inj 4 Mg/2 Ml Vial IV PUSH 4 mg Q6H PRN Administration Nausea And Vomiting Pantoprazole Sodium 40 mg 09/30/24 21:00 Pantoprazole Sodium Iv 40 Mg Vial IV PUSH Q12HR [facility] Polysaccharide Iron Complex 150 mg 09/07/24 17:00 09/30/24 11:36 Polysaccharide Iron Complex 150 Mg Capsule PO Not Given BIDWM [facility] Rosuvastatin Calcium 5 mg 09/07/24 09:00 09/30/24 11:37 Rosuvastatin 5 Mg Tablet PO Not Given QAM NAHOMI Sodium Bicarbonate 1,300 mg 09/10/24 09:00 09/30/24 11:37 Sodium Bicarbonate Tab 650 Mg Tablet PO Not Given TID NAHOMI Timolol Maleate 1 drop 09/07/24 09:35 09/30/24 15:03 Timolol Maleate 0.5% Op Soln 5 Ml Bottle EACH EYE 1 drop Q12HR NAHOMI Administration Radiology Results: ITS Impressions Abdomen/Pelvis CT 09/07/24 05:37 Impression: Minimal bilateral pleural effusions. Horseshoe kidney. Elbow X-Ray 09/17/24 12:16 IMPRESSION: 1. No fracture. Knee X-Ray 09/17/24 12:17 IMPRESSION: 1. Minimally displaced extra articular fracture of the proximal left fibular diaphysis. Correlate for any associated ankle pain and consider additional radiographs of the more distal tibia and fibula as clinically indicated. Tibia/Fibula X-Ray 09/17/24 15:54 IMPRESSION: 1. Fractures of proximal and distal fibula. 2. Comminuted fracture of distal tibia. Foot X-Ray 09/21/24 17:53 IMPRESSION: 1. No fracture. Ankle X-Ray 09/27/24 14:14 IMPRESSION: 1. Trimalleolar ankle fracture without change in alignment. Renal Biopsy Ultrasound 09/29/24 12:28 IMPRESSION: 1. Ultrasound-guided random core needle biopsy of the left moiety of a horseshoe kidney. Head CT 09/30/24 09:38 Impression: No significant abnormality seen. Chest/Abdomen/Pelvis CT 09/30/24 09:51 IMPRESSION: 1. Acute subcapsular hematoma involving the horseshoe kidney with acute hematoma extending into the retroperitoneal fat. 2. Worsened moderate volume of ascites. 3. Worsened small pleural effusions. ADDENDUM: 09/30/24 1010 I discussed these findings with Dr. Fuller. Chest X-Ray 09/30/24 11:38 IMPRESSION: 1. Central line tip at superior cavoatrial junction. 2. Mild atelectasis in the lower lung zones. Labs Labs: Laboratory Results - last 24 hr 09/23/24 09/23/24 09/25/24 20:41 23:12 06:44 WBC RBC Hgb Hct MCV MCH MCHC RDW Plt Count MPV Immature Gran % (Auto) Neut % (Auto) Lymph % (Auto) [place] % (Auto) Eos % (Auto) Baso % (Auto) Lymph # (Auto) [place] # (Auto) Eos # (Auto) Baso # (Auto) Abs Immat Gran (auto) Absolute Neuts (auto) Absolute Nucleated RBC Nucleated RBC % Platelet Estimate % Immature Plt Fraction Hypochromasia Anisocytosis Schistocytes Absolute Retic Percent Retic Immature Retic Fraction Retic Hgb Content PT INR APTT Fibrinogen D-Dimer Puncture Site ABG pH ABG pCO2 ABG pO2 ABG PO2/FiO2 Ratio ABG HCO3 ABG O2 Saturation ABG O2 Content ABG Base Excess A-a Gradient Oxyhemoglobin Carboxyhemoglobin Methemoglobin Reduced Hemoglobin Total Hemoglobin O2 Delivery Device O2 Liters/Min FiO2 Sodium Potassium Chloride Carbon Dioxide Anion Gap BUN Creatinine Estim Creat Clear Calc Estimated GFR Glucose POC Capillary Glucose Lactic Acid Calcium Phosphorus Magnesium Total Bilirubin AST ALT Alkaline Phosphatase Total Protein Albumin Lipase Urine Albumin 63 U Oluwi-2-Fxnlolie 10 U Cegxu-3-Ewcduqsj 7 U Beta Globulin 11 U Gamma Globulin 9 Urine PEP Interpret See note Stl Occult Blood (IFOB) Cryoglobulin Qualit Negative ANCA Screen P-anca pos A p-ANCA Titer 1:320 H Blood Type Antibody Screen MENDOZA, IgG Interpret MENDOZA, Complement Interp Crossmatch 09/29/24 09/29/24 09/29/24 10:06 16:34 20:37 WBC RBC Hgb Hct MCV MCH MCHC RDW Plt Count MPV Immature Gran % (Auto) Neut % (Auto) Lymph % (Auto) [place] % (Auto) Eos % (Auto) Baso % (Auto) Lymph # (Auto) [place] # (Auto) Eos # (Auto) Baso # (Auto) Abs Immat Gran (auto) Absolute Neuts (auto) Absolute Nucleated RBC Nucleated RBC % Platelet Estimate % Immature Plt Fraction Hypochromasia Anisocytosis Schistocytes Absolute Retic 0.04 Percent Retic 2.03 Immature Retic Fraction 6.4 Retic Hgb Content 30.0 PT INR APTT Fibrinogen D-Dimer Puncture Site ABG pH ABG pCO2 ABG pO2 ABG PO2/FiO2 Ratio ABG HCO3 ABG O2 Saturation ABG O2 Content ABG Base Excess A-a Gradient Oxyhemoglobin Carboxyhemoglobin Methemoglobin Reduced Hemoglobin Total Hemoglobin O2 Delivery Device O2 Liters/Min FiO2 Sodium Potassium Chloride Carbon Dioxide Anion Gap BUN Creatinine Estim Creat Clear Calc Estimated GFR Glucose POC Capillary Glucose 144 H Lactic Acid Calcium Phosphorus Magnesium Total Bilirubin AST ALT Alkaline Phosphatase Total Protein Albumin Lipase Urine Albumin U Nwuvt-5-Msfvntgm U Ihuse-0-Bbvcmexo U Beta Globulin U Gamma Globulin Urine PEP Interpret Stl Occult Blood (IFOB) Cryoglobulin Qualit ANCA Screen p-ANCA Titer Blood Type B Positive Antibody Screen Negative MENDOZA, IgG Interpret Neg MENDOZA, Complement Interp Negative Crossmatch See Detail 09/29/24 09/29/24 09/30/24 21:04 22:43 07:31 WBC 11.4 H RBC 1.81 L Hgb 5.3 L* Hct 16.3 L* MCV 90.1 MCH 29.3 MCHC 32.5 RDW 16.6 H Plt Count 74 L MPV 13.7 H Immature Gran % (Auto) 0.9 H Neut % (Auto) 83.6 H Lymph % (Auto) 11.1 L [place] % (Auto) 4.3 Eos % (Auto) 0.0 Baso % (Auto) 0.1 L Lymph # (Auto) 1.26 [place] # (Auto) 0.5 Eos # (Auto) 0.0 Baso # (Auto) 0.0 Abs Immat Gran (auto) 0.10 H Absolute Neuts (auto) 9.5 H Absolute Nucleated RBC 0.000 Nucleated RBC % 0.0 Platelet Estimate Decreased % Immature Plt Fraction 9.2 Hypochromasia 2+ Anisocytosis 1+ Schistocytes Rare Absolute Retic Percent Retic Immature Retic Fraction Retic Hgb Content PT INR APTT Fibrinogen D-Dimer Puncture Site ABG pH ABG pCO2 ABG pO2 ABG PO2/FiO2 Ratio ABG HCO3 ABG O2 Saturation ABG O2 Content ABG Base Excess A-a Gradient Oxyhemoglobin Carboxyhemoglobin Methemoglobin Reduced Hemoglobin Total Hemoglobin O2 Delivery Device O2 Liters/Min FiO2 Sodium 139 Potassium 4.0 Chloride 106 Carbon Dioxide 18 L Anion Gap 15 H BUN 96 H Creatinine 3.00 H Estim Creat Clear Calc 22 Estimated GFR 16 L Glucose 138 H POC Capillary Glucose 138 H Lactic Acid 6.0 H* Calcium 6.7 L Phosphorus Magnesium 2.0 Total Bilirubin 1.6 H AST 188 H ALT 105 H Alkaline Phosphatase 44 Total Protein 4.0 L Albumin 2.6 L Lipase Urine Albumin U Dblbo-9-Gkgggece U Jrivx-4-Hwqywfkp U Beta Globulin U Gamma Globulin Urine PEP Interpret Stl Occult Blood (IFOB) Positive H D Cryoglobulin Qualit ANCA Screen p-ANCA Titer Blood Type Antibody Screen MENDOZA, IgG Interpret MENDOZA, Complement Interp Crossmatch 09/30/24 09/30/24 09/30/24 07:40 09:23 10:30 WBC RBC Hgb Hct MCV MCH MCHC RDW Plt Count MPV Immature Gran % (Auto) Neut % (Auto) Lymph % (Auto) [place] % (Auto) Eos % (Auto) Baso % (Auto) Lymph # (Auto) [place] # (Auto) Eos # (Auto) Baso # (Auto) Abs Immat Gran (auto) Absolute Neuts (auto) Absolute Nucleated RBC Nucleated RBC % Platelet Estimate % Immature Plt Fraction Hypochromasia Anisocytosis Schistocytes Absolute Retic Percent Retic Immature Retic Fraction Retic Hgb Content PT INR APTT Fibrinogen D-Dimer Puncture Site Right radial ABG pH 7.429 ABG pCO2 24.3 L ABG pO2 134.5 H ABG PO2/FiO2 Ratio 4.80 ABG HCO3 15.7 L ABG O2 Saturation 98.8 ABG O2 Content 7.0 L ABG Base Excess -8.1 A-a Gradient 36.5 Oxyhemoglobin 96.1 Carboxyhemoglobin 1.6 Methemoglobin 0.0 Reduced Hemoglobin 2.3 Total Hemoglobin 4.9 L* O2 Delivery Device Nasal cannula O2 Liters/Min 2.0 FiO2 28 Sodium Potassium Chloride Carbon Dioxide Anion Gap BUN Creatinine Estim Creat Clear Calc Estimated GFR Glucose POC Capillary Glucose 150 H Lactic Acid Cancelled Calcium Phosphorus Magnesium Total Bilirubin AST ALT Alkaline Phosphatase Total Protein Albumin Lipase Urine Albumin U Erljy-1-Uhmaqeip U Dfoed-5-Vpoiubsq U Beta Globulin U Gamma Globulin Urine PEP Interpret Stl Occult Blood (IFOB) Cryoglobulin Qualit ANCA Screen p-ANCA Titer Blood Type Antibody Screen MENDOZA, IgG Interpret MENDOZA, Complement Interp Crossmatch 09/30/24 09/30/24 09/30/24 11:29 11:29 11:58 WBC 9.5 RBC 1.96 L Hgb 5.5 L* Hct 17.4 L* MCV 88.8 MCH 28.1 MCHC 31.6 L RDW 16.8 H Plt Count 57 L MPV 13.2 H Immature Gran % (Auto) 0.8 H Neut % (Auto) 85.6 H Lymph % (Auto) 8.9 L [place] % (Auto) 4.6 Eos % (Auto) 0.0 Baso % (Auto) 0.1 L Lymph # (Auto) 0.85 L [place] # (Auto) 0.4 Eos # (Auto) 0.0 Baso # (Auto) 0.0 Abs Immat Gran (auto) 0.08 H Absolute Neuts (auto) 8.1 H Absolute Nucleated RBC 0.000 Nucleated RBC % 0.0 Platelet Estimate Decreased % Immature Plt Fraction 8.7 Hypochromasia Anisocytosis 1+ Schistocytes None seen Absolute Retic Percent Retic Immature Retic Fraction Retic Hgb Content PT 24.7 H D INR 2.2 APTT 47.2 H Fibrinogen Cancelled 137 L D-Dimer 3.37 H Puncture Site ABG pH ABG pCO2 ABG pO2 ABG PO2/FiO2 Ratio ABG HCO3 ABG O2 Saturation ABG O2 Content ABG Base Excess A-a Gradient Oxyhemoglobin Carboxyhemoglobin Methemoglobin Reduced Hemoglobin Total Hemoglobin O2 Delivery Device O2 Liters/Min FiO2 Sodium 140 Potassium 4.2 Chloride 107 Carbon Dioxide 17 L Anion Gap 16 H BUN 99 H Creatinine 2.90 H Estim Creat Clear Calc 23 Estimated GFR 16 L Glucose 145 H POC Capillary Glucose 172 H Lactic Acid 6.7 H* Calcium 6.8 L Phosphorus 7.4 H Magnesium 1.9 Total Bilirubin 1.5 H AST 346 H ALT 200 H Alkaline Phosphatase 39 Total Protein 4.0 L Albumin 2.2 L Lipase 967 H Urine Albumin U Klpaj-9-Khnuktxu U Khlls-4-Zqsyzjbf U Beta Globulin U Gamma Globulin Urine PEP Interpret Stl Occult Blood (IFOB) Cryoglobulin Qualit ANCA Screen p-ANCA Titer Blood Type Antibody Screen MENDOZA, IgG Interpret MENDOZA, Complement Interp Crossmatch Quality VTE Prophylaxis VTE prophylaxis: mechanical ordered
[2024-09-30 18:25] LABS: Basophils Percent Auto 0.1 % (0.2-1.2); Immature Granulocyte Absolute 0.16 K/mm3 (0.00-0.031); Immature Granulocyte Percent A 0.9 % (0-0.5); Immature Platelet Fraction Pct 7.8 % (0.9-11.2); Lymphocytes Absolute Auto 0.66 K/mm3 (0.9-3.2); Lymphocytes Percent Auto 3.6 % (18.3-44.2); Mean Corpuscular HGB Conc 33.9 g/dl (32-36); Mean Corpuscular Hemoglobin 28.3 pg (26-34); Mean Corpuscular Volume 83.3 fl (80-100); Monocytes Absolute Auto 0.5 K/mm3 (0.1-0.6); Monocytes Percent Auto 2.9 % (2.6-8.5); Neutrophils Absolute Auto 17.2 K/mm3 (1.3-6.7); Neutrophils Percent Auto 92.5 % (45.5-73.1); Platelet Count Result 55 k/mm3 (150-375); Red Blood Count 1.98 M/mm3 (4.2-5.4); Red Cell Distribution Width 16.3 % (11.5-14.5); White Blood Count 18.5 K/mm3 (4.5-10.0)
[2024-09-30 18:32] LABS: Lactic Acid Reflex 2.7 mmol/L (0.7-2.0)
[2024-09-30 18:43] LABS: Glucose Point of Care 188 mg/dl (65-105)
[2024-09-30 18:46] LABS: Hemoglobin 5.6 g/dL (12.0-15.0)
[2024-09-30 18:47] LABS: Hematocrit 16.5 % (37.0-47.0)
[2024-09-30 18:48] LABS: Platelet Estimate Decreased (Adequate); Schistocytes None Seen
--- NOTE | 2024-09-30 19:19 | PC.NURSE ---
Pt had critical labs this AM provider was notified. Order to infuse 2 units of blood, 1liter bolus, blood cultures, and repeat lactic was given. This RN went in to check on pt and obtain a blood pressure. Pt blood pressure was 80's/40's and increased swelling with weeping was noted. Provider was notified and asked if we could consult non destructive evaluation specialist. Provider agreed, ICU was contacted and Stock Broker Supervisor came to the bedside to evaluate pt. Pt was minimally responsive. Hospitalist contacted and came to the bedside. It was decided that pt should transfer to ICU. Head CT and Chest xray ordered stat. Pt was taken by [employer]'s to CT before transfer to ICU. Pt belongings taken to ICU [address]
[2024-09-30] MEDS: SODIUM CHLORIDE 0.9% IV 250 ML 30 ML IV CONT (23:55)
[2024-10-01] VITALS (13 sets, daily range): BP systolic 116–168; BP diastolic 61–88; PULSE 82–93; RESP 20–24; TEMP 36.9–37.2; O2SAT 95–99
[2024-10-01 00:06] LABS: Glucose Point of Care 200 mg/dl (65-105)
[2024-10-01 00:17] LABS: Hematocrit 21.7 % (37.0-47.0); Hemoglobin 7.5 g/dL (12.0-15.0)
--- NOTE | 2024-10-01 00:28 | P.PNCROSS_ITS ---
Event Note Event Note Event Note: Notified by roving sizer about this patient's active hemorrhage/hematoma. Reque sted a transfer. Patient's hemoglobin 5.6 after multiple RBC transfusions. She was also started on Levophed earlier. After hemoglobin of 5.6 mg/dL at 6:15 p.m. 2 more units of PRBC were infused along with 1 unit of FFP and 1 unit of platelets. At 12:23 a.m. patient was accepted to the ICU at [facility]. During discussion with the roving sizer at [facility] a repeat hemoglobin resulted 7.5 mg/dL. As well, patient now has become hypertensive and the Levophed weaned off. Due to this, the roving sizer graciously accepted, and did not want an emergent transfer and did not feel there was a need for emergent embolization. Repeat labs at 5:00 a.m.. Have also added a repeat coagulation profile.
[2024-10-01] MEDS: HYDROmorphone HCL INJ (*CRX) 1 MG/ML SYR 0.5 MG IV PUSH (01:45)
[2024-10-01 02:44] LABS: Haptoglobin <10 mg/dL (43-212)
[2024-10-01 05:15] LABS: Alveolar/Arterial O2 Gradient 42.2 mmHg; Carboxyhemoglobin 2.9 % THb (0-2.0); Fractional Inspired Oxygen 21 %; HCO3 ABG 24.7 mEq/l (22.0-26.0); Methemoglobin ABG 0.5 %THb (0-1.5); Oxygen Saturation ABG 94.4 % (95.0-100.0); PCO2 ABG 34.5 mmHg (35.0-45.0); PO2 ABG 66.2 mmHg (80.0-100.0); PO2 FiO2 Ratio Arterial Blood 3.15 %; Reduced Hemoglobin 6.6 %THb (0-5.0); pH ABG 7.472 (7.350-7.450)
[2024-10-01 05:16] LABS: Device ROOM AIR; Modified Allen's Test Unable to perform; Site Drawn RIGHT RADIAL; Total Hemoglobin 6.2 g/dL (12.0-18.0)
[2024-10-01 06:08] LABS: Basophils Percent Auto 0.1 % (0.2-1.2); Immature Granulocyte Absolute 0.07 K/mm3 (0.00-0.031); Immature Granulocyte Percent A 0.6 % (0-0.5); Lymphocytes Absolute Auto 0.41 K/mm3 (0.9-3.2); Lymphocytes Percent Auto 3.4 % (18.3-44.2); Mean Corpuscular HGB Conc 34.5 g/dl (32-36); Mean Corpuscular Hemoglobin 29.8 pg (26-34); Mean Corpuscular Volume 86.4 fl (80-100); Mean Platelet Volume 12.6 fl (7.4-10.4); Monocytes Absolute Auto 0.3 K/mm3 (0.1-0.6); Monocytes Percent Auto 2.3 % (2.6-8.5); Neutrophils Absolute Auto 11.4 K/mm3 (1.3-6.7); Neutrophils Percent Auto 93.6 % (45.5-73.1); Platelet Count Result 35 k/mm3 (150-375); Red Blood Count 1.91 M/mm3 (4.2-5.4); Red Cell Distribution Width 15.4 % (11.5-14.5); White Blood Count 12.2 K/mm3 (4.5-10.0)
[2024-10-01 06:12] LABS: Hematocrit 16.5 % (37.0-47.0); Hemoglobin 5.7 g/dL (12.0-15.0)
[2024-10-01 06:21] LABS: INR 1.5; Prothrombin Time 18.6 Seconds (11.1-14.7)
[2024-10-01 06:22] LABS: Fibrinogen 238 mg/dl (215-510); Partial Thromboplastin Time 46.4 Seconds (22.3-36.8)
[2024-10-01 06:27] LABS: Lactic Acid Reflex 1.4 mmol/L (0.7-2.0)
[2024-10-01 06:29] LABS: D Dimer 2.52 ug/mL (<0.48)
[2024-10-01 06:30] LABS: Alanine Aminotransferase 161 U/L (6-35); Albumin Level 2.3 g/dL (3.5-5.1); Alkaline Phosphatase 50 U/L (38-126); Anion Gap 11 mmol/L (4-12); Aspartate Amino Transferase 335 U/L (14-36); Bilirubin,Total 1.6 mg/dL (0.2-1.3); Blood Urea Nitrogen 106 mg/dL (7-17); Carbon Dioxide 25 mmol/L (22-30); Chloride 104 mmol/L (98-107); Estimated CRCL calculation 19 ml/min; Estimated Glomerular Filt Rate 13; Glucose 206 mg/dL (65-110); Magnesium 1.8 mg/dL (1.6-2.3); Phosphorus 6.5 mg/dL (2.5-4.5); Potassium 3.7 mmol/L (3.4-5.0); Sodium 140 mmol/L (137-145)
[2024-10-01 06:33] LABS: Ammonia < 9 umol/L (9-30)
[2024-10-01 07:20] LABS: Platelet Estimate Decreased (Adequate)
[2024-10-01 07:23] LABS: Anisocytosis 1+; Schistocytes None Seen
--- NOTE | 2024-10-01 08:27 | PC.NURSE ---
Bedside report obtained at 0705 from night RN. Patient currently receiving blood transfusion. [facility] arrived at 0730 to transport patient to [facility]. Report given to [facility], night RN called report to [facility] and spoke to MISAEL Gomez. Patient pulled over to stretcher and sent with IV pump infusing remainder of blood transfusion. Vital signs obtained before patient departure. Patient transported out of ICU and on [facility] monitors at 0738. All belongings sent with patient to recieving facility.
[2024-10-02 13:48] LABS: Soluble Transferrin Receptor 0.45 mg/L (0.76-1.76)
[2024-10-03 04:49] LABS: Methylmalonic Acid 569 nmol/L (69-390)
[2024-10-03 10:23] LABS: Anti Cardio Antibody IgM 2.6 MPL-U/mL; Anti Cardiolipin Antibody IgA <2.0 APL-U/mL; Anti Cardiolipin Antibody IgG <2.0 GPL-U/mL
== END 2024-10-01 07:38 | disposition short-term general hospital (02) | DRG 469 ==
LOC: ANHED 09-07 04:56 → ANH3MEDSUR 09-07 08:56 → ANHICU 09-30 09:26
PROVIDERS: Hospitalist; Internal Medicine; Internal Medicine Gastroenterology; Internal Medicine Hematology & Oncology; Internal Medicine Nephrology; Nurse Practitioner Acute Care; Nurse Practitioner Adult Health; Nurse Practitioner Gerontology; Physician Assistant; Student in an Organized Health Care Education/Training Program; Admitting Provider Internal Medicine; Emergency Provider Emergency Medicine; PCP Emergency Medicine; Visit Provider General Practice
DX: N17.9 Acute kidney failure, unspecified (principal); K52.9 Noninfective gastroenteritis and colitis, unspecified; E11.22 Type 2 diabetes mellitus with diabetic chronic kidney disease; I12.9 Hypertensive chronic kidney disease with stage 1 through stage 4 chronic kidney disease, or unspecified chronic kidney disease; N18.4 Chronic kidney disease, stage 4 (severe); J90 Pleural effusion, not elsewhere classified; R62.7 Adult failure to thrive; F41.9 Anxiety disorder, unspecified; I48.92 Unspecified atrial flutter; E87.21 Acute metabolic acidosis; D63.1 Anemia in chronic kidney disease; D61.818 Other pancytopenia; N39.0 Urinary tract infection, site not specified; E86.0 Dehydration; B96.20 Unspecified Escherichia coli [E. coli] as the cause of diseases classified elsewhere; B95.2 Enterococcus as the cause of diseases classified elsewhere; S82.852A Displaced trimalleolar fracture of left lower leg, initial encounter for closed fracture; I48.91 Unspecified atrial fibrillation; I31.9 Disease of pericardium, unspecified; W18.30XA Fall on same level, unspecified, initial encounter; R57.8 Other shock; N99.840 Postprocedural hematoma of a genitourinary system organ or structure following a genitourinary system procedure; S37.012A Minor contusion of left kidney, initial encounter; H33.21 Serous retinal detachment, right eye; E11.319 Type 2 diabetes mellitus with unspecified diabetic retinopathy without macular edema; E11.21 Type 2 diabetes mellitus with diabetic nephropathy; K72.00 Acute and subacute hepatic failure without coma; K56.41 Fecal impaction; Z68.35 Body mass index [BMI] 35.0-35.9, adult; Z90.49 Acquired absence of other specified parts of digestive tract; Z87.891 Personal history of nicotine dependence; Z79.01 Long term (current) use of anticoagulants; E87.6 Hypokalemia; E83.42 Hypomagnesemia; Q63.1 Lobulated, fused and horseshoe kidney; Z16.21 Resistance to vancomycin
CPT/HCPCS: 36415; 36430; 36600; 50200; 70450; 71045; 71250; 73080; 73562; 73590; 73600; 73610; 73620; 74176; 76942; 80048; 80053; 80076; 81001; 82140; 82274; 82375; 82550; 82570; 82595; 82728; 82805; 82948; 83010; 83050; 83520; 83540; 83550; 83605; 83615; 83690; 83735; 83921; 84100; 84155; 84156; 84165; 84166; 84238; 84478; 84520; 85014; 85018; 85025; 85027; 85046; 85055; 85380; 85384; 85610; 85613; 85652; 85730; 86036; 86146; 86160; 86162; 86225; 86334; 86335; 86364; 86703; 86850; 86880; 86900; 86901; 86923; 87040; 87086; 87181; 87186; 87493; 87637; 88300; 88329; 93005; 93308; 94640; 94762; 96361; 96374; 96375; 96376; 97110; 97161; 97162; 97165; 97530; 97535; 99285; A9270; C1751; G0378; G0379; G0432; J0360; J0613; J0696; J1171; J1815; J1939; J1940; J2020; J2270; J2405; J2470; J2919; J3370; J3430; J3475; J3480; J7030; J7040; J7050; J7120; J7121; J7512; L2116; P9012; P9016; P9017; P9034; P9047; Q4081